=== PATIENT | male | born 1975 | race Caucasian/White ===

== ENCOUNTER 2017-01-21 12:57 | Outpatient (RCR) | payer MEDICARE, MEDICAID ==
[2016-11-26 13:23] VITALS: BP 127/83
[2016-12-24 13:18] VITALS: BP 120/83
[~2017-01-21] VITALS: Ht 172.7 cm; Wt 74.3 kg
[~2017-01-21 12:57] MED LIST: ACHD5005 PO; AMOX500C2 PO; CARV6.252 PO; CHOL200018 PO; CLON1PAT15 TD; CLON1PAT16 TD; DESV50TA PO; DIAZ10TA PO; DIAZ10TA3 PO; ENAL10TA PO; HEParin (CENTRAL IV FLUSH) 500 UNIT/5 ML SYR IV ONE; HEParin (CENTRAL IV FLUSH) 500 UNIT/5 ML SYR ONE; HYDR1TAB PO; METO-354 PO; MTC5U10 IV; NITR100C10 PO; PRM25T PO; PROC10TA23 IV; PROM25SU10 PR; PROM6.25 PO; [UNRECOGNIZED DRUG - CODE] IV; [UNRECOGNIZED DRUG - OTHER]
[2017-01-21] MEDS ORDERED: HEParin (CENTRAL IV FLUSH) 500 UNIT/5 ML SYR ONE (12:59)
[2017-01-21 13:05] VITALS: BP 125/85
== END 2017-02-24 | disposition home or self-care (01) ==
LOC: SDC 12:57
PROVIDERS: ATTEND Nurse Practitioner Community Health
DX: K31.84 Gastroparesis (principal); Z45.2 Encounter for adjustment and management of vascular access device
CPT/HCPCS: 96523

== ENCOUNTER → 2017-01-27 | Outpatient (CLI) | payer MEDICARE, MEDICAID ==
[~2017-01-27] VITALS: Ht 172.7 cm; Wt 74.3 kg
[~2017-01-27] MED LIST changes: -HEParin (CENTRAL IV FLUSH) 500 UNIT/5 ML SYR IV ONE; -HEParin (CENTRAL IV FLUSH) 500 UNIT/5 ML SYR ONE
--- OUTSIDE RECORDS SUMMARY | 2017-01-27 10:38 | XMS REPORT ---
Author Author BISMARK PATIÑO [facility] Address [address] [place] [address] Care Team Providers Care Files Supervisor Name Role Phone HAROON BISMARK Unavailable PROBLEMS Type Condition ICD9-CM Code [id number] Code Onset Dates Condition Status SNOMED Code Problem Mood disorder F39 Active [id number] Assessment Type 1 diabetes mellitus with hyperglycemia E10.65 Jul, Active [id number] Problem Type 1 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 Active 68872289 Problem Type 1 diabetes mellitus with hyperglycemia E10.65 Active [id number] Problem Gastroparesis K31.84 Active 396468363 Problem Hypertension, essential I10 Active [id number] Problem 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 Active 65795274 Problem Type 1 diabetes mellitus with other diabetic neurological complication E10.49 Active [id number] ALLERGIES Unknown Allergies SOCIAL HISTORY No smoking Hx information available PLAN OF CARE VITAL SIGNS MEDICATIONS Medication Instructions Dosage Frequency Start Date End Date Duration Status Genaro Contour Test N/A test blood sugar 6h Jul, Active RESULTS No Results PROCEDURES No Known procedures IMMUNIZATIONS No Known Immunizations
[2017-01-27 10:50] VITALS: BP 139/91
[2017-01-27 10:58] LABS: MEAN PLATELET VOLUME 10.6 FL (7.4-10.4); RED BLOOD COUNT 4.56 10^6/uL (4.35-5.85); RED CELL DISTRIBUTION WIDTH 13.4 % (10.0-14.5); WHITE BLOOD COUNT 7.9 10^3/uL (4.3-11.0)
[2017-01-27 11:20] LABS: ALBUMIN 3.8 G/DL (3.2-4.5); BILIRUBIN,TOTAL 0.5 MG/DL (0.1-1.0); CALCIUM 8.9 MG/DL (8.5-10.1); CREATININE SERUM 1.5 MG/DL (0.60-1.30); POTASSIUM 3.6 MMOL/L (3.6-5.0); TOTAL PROTEIN 6.5 G/DL (6.4-8.2)
[2017-01-27 11:41] LABS: THYROID STIMULATING HORMONE 1.77 UIU/ML (0.35-4.94)
== END ==
LOC: SDC 10:35
PROVIDERS: ATTEND Nurse Practitioner Community Health
DX: E10.42 Type 1 diabetes mellitus with diabetic polyneuropathy (principal)
CPT/HCPCS: 36415; 80053; 80061; 84443; 85027

== ENCOUNTER 2017-04-22 13:07 | Outpatient (RCR) | payer MEDICARE, MEDICAID ==
[2017-02-25 13:20] VITALS: BP 120/83
[2017-03-25 13:16] VITALS: BP 118/76
[~2017-04-22] VITALS: Ht 172.7 cm; Wt 74.3 kg
[~2017-04-22 13:07] MED LIST changes: +HEParin (CENTRAL IV FLUSH) 500 UNIT/5 ML SYR ONE
[2017-04-22 14:10] VITALS: BP 122/81
== END 2017-05-26 | disposition home or self-care (01) ==
LOC: SDC 13:07
PROVIDERS: ATTEND Nurse Practitioner Community Health
DX: K31.84 Gastroparesis (principal); Z45.2 Encounter for adjustment and management of vascular access device
CPT/HCPCS: 96523

== ENCOUNTER 2017-07-26 12:59 | Outpatient (RCR) | payer MEDICARE, MEDICAID ==
[2017-05-27] MEDS: CATHETER FLUSH 10 ML SYR IV PRN (13:15)
[2017-05-27 13:36] VITALS: BP 124/87
[2017-06-23] MEDS: CATHETER FLUSH 10 ML SYR IV PRN (13:45)
[2017-06-23 13:50] VITALS: BP 131/82
[~2017-07-26] VITALS: Ht 172.7 cm; Wt 74.3 kg
[~2017-07-26 12:59] MED LIST changes: -HEParin (CENTRAL IV FLUSH) 500 UNIT/5 ML SYR ONE
[2017-07-26 13:35] VITALS: BP 126/92
[2017-07-26] MEDS: CATHETER FLUSH 10 ML SYR IV PRN (13:35)
== END 2017-08-20 | disposition home or self-care (01) ==
LOC: SDC 12:59
PROVIDERS: ATTEND Nurse Practitioner Community Health
DX: Z45.2 Encounter for adjustment and management of vascular access device; K31.84 Gastroparesis
CPT/HCPCS: 96523

== ENCOUNTER 2017-10-27 12:52 | Outpatient (RCR) | payer MEDICARE, MEDICAID ==
[2017-08-25 13:15] VITALS: BP 128/81
[2017-09-22 13:05] VITALS: BP 142/87
[~2017-10-27] VITALS: Ht 172.7 cm; Wt 74.3 kg
[~2017-10-27 12:52] MED LIST changes: +HEParin (CENTRAL IV FLUSH) 500 UNIT/5 ML SYR ONE
[2017-10-27 13:05] VITALS: BP 129/86
== END 2017-11-23 | disposition home or self-care (01) ==
LOC: SDC 12:52
PROVIDERS: ATTEND Nurse Practitioner Community Health
DX: K31.84 Gastroparesis (principal); Z45.2 Encounter for adjustment and management of vascular access device
CPT/HCPCS: 96523

== ENCOUNTER 2017-12-23 14:00 | Outpatient (RCR) | payer MEDICARE, MEDICAID ==
[2017-11-24 13:21] VITALS: BP 114/77
[~2017-12-23] VITALS: Ht 172.7 cm; Wt 74.3 kg
[2017-12-23 13:00] VITALS: BP 110/74
[~2017-12-23 14:00] MED LIST changes: +CATHETER FLUSH 10 ML SYR IV PRN; -HEParin (CENTRAL IV FLUSH) 500 UNIT/5 ML SYR ONE
== END 2018-02-22 | disposition home or self-care (01) ==
LOC: SDC 14:00
PROVIDERS: ATTEND Nurse Practitioner Community Health
DX: K31.84 Gastroparesis (principal); Z45.2 Encounter for adjustment and management of vascular access device
CPT/HCPCS: 96523

== ENCOUNTER → 2018-01-20 | Outpatient (CLI) | payer MEDICARE, MEDICAID ==
[~2018-01-20] VITALS: Ht 172.7 cm; Wt 74.3 kg
[~2018-01-20] MED LIST changes: -CATHETER FLUSH 10 ML SYR IV PRN
[2018-01-20 13:20] VITALS: BP 139/88
[2018-01-20 13:21] LABS: HEMOGLOBIN 14.5 G/DL (13.3-17.7); MEAN PLATELET VOLUME 10.4 FL (7.4-10.4); RED BLOOD COUNT 4.65 10^6/uL (4.35-5.85); WHITE BLOOD COUNT 9.2 10^3/uL (4.3-11.0)
[2018-01-20 13:39] LABS: ALBUMIN 4.1 GM/DL (3.2-4.5); BILIRUBIN,TOTAL 0.5 MG/DL (0.1-1.0); CALCIUM 9.4 MG/DL (8.5-10.1); CREATININE SERUM 1.55 MG/DL (0.60-1.30); POTASSIUM 3.8 MMOL/L (3.6-5.0); TOTAL PROTEIN 6.9 GM/DL (6.4-8.2)
== END ==
LOC: SDC 13:03
PROVIDERS: ATTEND Nurse Practitioner Community Health
DX: E10.40 Type 1 diabetes mellitus with diabetic neuropathy, unspecified (principal); I10 Essential (primary) hypertension
CPT/HCPCS: 36415; 36591; 80053; 80061; 84443; 85027

== ENCOUNTER 2018-05-25 13:07 | Outpatient (RCR) | payer MEDICARE, MEDICAID ==
[2018-03-03 13:00] VITALS: BP 133/90
[2018-03-24 13:00] VITALS: BP 130/86
[2018-04-27 13:35] VITALS: BP 141/89
[~2018-05-25] VITALS: Ht 172.7 cm; Wt 74.3 kg
[2018-05-25 13:10] VITALS: BP 118/78
== END 2018-06-01 | disposition home or self-care (01) ==
LOC: SDC 13:07
PROVIDERS: ATTEND Nurse Practitioner Community Health
DX: K31.84 Gastroparesis (principal); Z45.2 Encounter for adjustment and management of vascular access device
CPT/HCPCS: 96523

== ENCOUNTER → 2018-07-27 | Outpatient (CLI) | payer MEDICARE, MEDICAID ==
[~2018-07-27] VITALS: Ht 172.7 cm; Wt 74.3 kg
[~2018-07-27] MED LIST changes: +HEParin (CENTRAL IV FLUSH) 500 UNIT/5 ML SYR IV ONE; +HEParin (CENTRAL IV FLUSH) 500 UNIT/5 ML SYR ONE
[2018-07-27 13:50] VITALS: BP 118/85
== END ==
LOC: SDC 13:18
PROVIDERS: ATTEND Nurse Practitioner Community Health
DX: E10.49 Type 1 diabetes mellitus with other diabetic neurological complication (principal); R53.82 Chronic fatigue, unspecified
CPT/HCPCS: 36591

== ENCOUNTER 2018-09-21 13:09 | Outpatient (RCR) | payer MEDICARE, MEDICAID ==
[2018-06-26 13:05] VITALS: BP 117/83
[2018-07-27 14:10] LABS: MEAN PLATELET VOLUME 10.8 FL (7.4-10.4); RED BLOOD COUNT 4.21 10^6/uL (4.35-5.85); WHITE BLOOD COUNT 7.8 10^3/uL (4.3-11.0)
[2018-07-27 14:30] LABS: ALBUMIN 3.9 GM/DL (3.2-4.5); BILIRUBIN,TOTAL 0.5 MG/DL (0.1-1.0); CALCIUM 9.7 MG/DL (8.5-10.1); CREATININE SERUM 1.62 MG/DL (0.60-1.30); TOTAL PROTEIN 6.8 GM/DL (6.4-8.2)
[2018-08-24 13:20] VITALS: BP 119/82
[~2018-09-21] VITALS: Ht 172.7 cm; Wt 74.3 kg
[2018-09-21] MEDS ORDERED: HEParin (CENTRAL IV FLUSH) 500 UNIT/5 ML SYR ONE (13:10)
[2018-09-21 13:15] VITALS: BP 151/89
== END 2018-09-24 | disposition home or self-care (01) ==
LOC: SDC 13:09
PROVIDERS: ATTEND Nurse Practitioner Community Health
DX: K31.84 Gastroparesis (principal); Z45.2 Encounter for adjustment and management of vascular access device; E10.49 Type 1 diabetes mellitus with other diabetic neurological complication; R53.82 Chronic fatigue, unspecified
CPT/HCPCS: 36415; 80053; 80061; 82306; 82607; 84403; 84443; 85027; 96523

== ENCOUNTER 2018-12-28 13:02 | Outpatient (RCR) | payer MEDICARE, MEDICAID ==
[2018-10-23 13:35] VITALS: BP 125/82
[2018-11-30 13:10] VITALS: BP 130/83
[~2018-12-28] VITALS: Ht 172.7 cm; Wt 74.3 kg
[2018-12-28 13:00] VITALS: BP 138/91
[2018-12-28] MEDS ORDERED: HEParin (CENTRAL IV FLUSH) 500 UNIT/5 ML SYR ONE (13:06)
[2018-12-28] MEDS ORDERED: HEParin (CENTRAL IV FLUSH) 500 UNIT/5 ML SYR IV ONE (16:30)
== END 2019-01-21 | disposition home or self-care (01) ==
LOC: SDC 13:02
PROVIDERS: ATTEND Nurse Practitioner Community Health
DX: K31.84 Gastroparesis (principal); Z45.2 Encounter for adjustment and management of vascular access device
CPT/HCPCS: 96523

== ENCOUNTER 2019-03-22 12:55 | Outpatient (RCR) | payer MEDICARE, MEDICAID ==
[2019-01-25 13:00] VITALS: BP 121/81
[2019-02-22 13:20] VITALS: BP 125/92
[~2019-03-22] VITALS: Ht 172.7 cm; Wt 74.3 kg
[~2019-03-22 12:55] MED LIST changes: -HEParin (CENTRAL IV FLUSH) 500 UNIT/5 ML SYR IV ONE
[2019-03-22 13:10] VITALS: BP 135/83
[2019-03-22] MEDS ORDERED: HEParin (CENTRAL IV FLUSH) 500 UNIT/5 ML SYR IV ONE (13:25)
== END 2019-04-25 | disposition home or self-care (01) ==
LOC: SDC 12:55
PROVIDERS: ATTEND Nurse Practitioner Community Health
DX: K31.84 Gastroparesis (principal); Z45.2 Encounter for adjustment and management of vascular access device
CPT/HCPCS: 96523

== ENCOUNTER 2019-06-25 13:05 | Outpatient (RCR) | payer MEDICARE, MEDICAID ==
[2019-04-26 13:45] VITALS: BP 143/87
[2019-05-25 13:25] VITALS: BP 147/90
[~2019-06-25] VITALS: Ht 172.7 cm; Wt 74.3 kg
[~2019-06-25 13:05] MED LIST changes: +HEParin (CENTRAL IV FLUSH) 500 UNIT/5 ML SYR IV ONE
[2019-06-25] MEDS ORDERED: HEParin (CENTRAL IV FLUSH) 500 UNIT/5 ML SYR ONE (13:11)
[2019-06-25 13:25] VITALS: BP 155/96
[2019-06-25] MEDS ORDERED: HEParin (CENTRAL IV FLUSH) 500 UNIT/5 ML SYR IV SCH (15:00)
== END 2019-07-25 | disposition home or self-care (01) ==
LOC: SDC 13:05
PROVIDERS: ATTEND Nurse Practitioner Community Health
DX: K31.84 Gastroparesis (principal); Z45.2 Encounter for adjustment and management of vascular access device
CPT/HCPCS: 96523

== ENCOUNTER 2019-07-27 13:12 | Outpatient (RCR) | payer MEDICARE, MEDICAID ==
[~2019-07-27] VITALS: Ht 172.7 cm; Wt 74.3 kg
[~2019-07-27 13:12] MED LIST changes: -HEParin (CENTRAL IV FLUSH) 500 UNIT/5 ML SYR IV ONE
[2019-07-27 13:30] VITALS: BP 124/78
[2019-07-27] MEDS ORDERED: HEParin (CENTRAL IV FLUSH) 500 UNIT/5 ML SYR IV ONE (13:30)
== END 2019-10-25 | disposition home or self-care (01) ==
LOC: SDC 13:12
PROVIDERS: ATTEND Nurse Practitioner Community Health
DX: Z45.2 Encounter for adjustment and management of vascular access device (principal); K31.84 Gastroparesis
CPT/HCPCS: 96523

== ENCOUNTER 2019-11-06 13:27 | Outpatient (RCR) | payer MEDICARE, MEDICAID ==
[2019-08-24 13:10] VITALS: BP 162/92
[2019-08-24 13:50] LABS: BASOPHILS # (AUTO) 0.1 10^3/uL (0.0-0.1); BASOPHILS % (AUTO) 2 % (0-10); EOSINOPHILS # (AUTO) 0.3 10^3/uL (0.0-0.3); EOSINOPHILS % (AUTO) 3 % (0-10); HEMATOCRIT 37 % (40-54); LYMPHOCYTES # (AUTO) 1.7 X 10^3 (1.0-4.0); LYMPHOCYTES % (AUTO) 22 % (12-44); MEAN CORPUSCULAR HEMOGLOBIN 30 PG (25-34); MEAN CORPUSCULAR HGB CONC 35 G/DL (32-36); MEAN CORPUSCULAR VOLUME 85 FL (80-99); MEAN PLATELET VOLUME 9.8 FL (7.4-10.4); MONOCYTES # (AUTO) 0.4 X 10^3 (0.0-1.0); MONOCYTES % (AUTO) 6 % (0-12); NEUTROPHILS # (AUTO) 5.2 X 10^3 (1.8-7.8); NEUTROPHILS % (AUTO) 67 % (42-75); PLATELET COUNT 342 10^3/uL (130-400); RED CELL DISTRIBUTION WIDTH 13.6 % (10.0-14.5); WHITE BLOOD COUNT 7.7 10^3/uL (4.3-11.0)
[2019-08-24 14:14] LABS: BILIRUBIN,TOTAL 0.3 MG/DL (0.1-1.0); CREATININE SERUM 1.5 MG/DL (0.60-1.30); POTASSIUM 4.3 MMOL/L (3.6-5.0); TOTAL PROTEIN 7.7 GM/DL (6.4-8.2)
[2019-09-28] MEDS: CATHETER FLUSH 10 ML SYR IV PRN (13:15)
[2019-09-28 13:18] VITALS: BP 140/91
[~2019-11-06] VITALS: Ht 172.7 cm; Wt 72.0 kg
[~2019-11-06 13:27] MED LIST changes: +HEParin (CENTRAL IV FLUSH) 500 UNIT/5 ML SYR IV ONE
[2019-11-06] MEDS ORDERED: HEParin (CENTRAL IV FLUSH) 500 UNIT/5 ML SYR ONE (13:29)
[2019-11-06 13:30] VITALS: BP 153/92
[2019-11-06] MEDS: CATHETER FLUSH 10 ML SYR IV PRN (13:38)
[2019-11-06] MEDS ORDERED: CATHETER FLUSH 10 ML SYR IV PRN (14:30)
[2019-11-06] MEDS ORDERED: HEParin (CENTRAL IV FLUSH) 500 UNIT/5 ML SYR IV ONE (14:30)
== END 2019-11-22 | disposition home or self-care (01) ==
LOC: SDC 13:27
PROVIDERS: ATTEND Nurse Practitioner Community Health
DX: Z45.2 Encounter for adjustment and management of vascular access device (principal); E10.65 Type 1 diabetes mellitus with hyperglycemia
CPT/HCPCS: 36415; 80053; 80061; 82306; 82607; 84403; 84443; 85025; 96523

== ENCOUNTER 2019-12-04 13:02 | Outpatient (CLI) | payer MEDICARE, MEDICAID ==
[~2019-12-04 13:02] MED LIST changes: -HEParin (CENTRAL IV FLUSH) 500 UNIT/5 ML SYR IV ONE; -HEParin (CENTRAL IV FLUSH) 500 UNIT/5 ML SYR ONE
[2019-12-04 13:45] VITALS: BP 149/101
[2019-12-04 16:39] LABS: BILIRUBIN,TOTAL 0.3 MG/DL (0.1-1.0); CALCIUM 9.3 MG/DL (8.5-10.1); CREATININE SERUM 1.71 MG/DL (0.60-1.30); POTASSIUM 4.1 MMOL/L (3.6-5.0); TOTAL PROTEIN 7.2 GM/DL (6.4-8.2)
== END 2019-12-04 13:45 ==
LOC: SDC 13:02
PROVIDERS: ATTEND Nurse Practitioner Community Health
DX: E10.42 Type 1 diabetes mellitus with diabetic polyneuropathy (principal); F39 Unspecified mood [affective] disorder; E55.9 Vitamin D deficiency, unspecified; N28.9 Disorder of kidney and ureter, unspecified
CPT/HCPCS: 36415; 36591; 80053; 82306

== ENCOUNTER 2020-02-26 13:23 | Outpatient (RCR) | payer MEDICARE, MEDICAID ==
[2019-12-04] MEDS: CATHETER FLUSH 10 ML SYR IV PRN ×2 (13:35→13:42)
[2020-01-01 13:25] VITALS: BP 122/84
[2020-01-29 13:30] VITALS: BP 143/95
[2020-01-29] MEDS: CATHETER FLUSH 10 ML SYR IV PRN (13:30)
[~2020-02-26] VITALS: Ht 170 cm; Wt 72.0 kg
[~2020-02-26 13:23] MED LIST changes: +HEParin (CENTRAL IV FLUSH) 500 UNIT/5 ML SYR IV ONE; +HEParin (CENTRAL IV FLUSH) 500 UNIT/5 ML SYR ONE
[2020-02-26 13:25] VITALS: BP 130/82
[2020-02-26] MEDS ORDERED: HEParin (CENTRAL IV FLUSH) 500 UNIT/5 ML SYR IV ONE (13:30)
[2020-02-26] MEDS: CATHETER FLUSH 10 ML SYR IV PRN (13:32)
== END 2020-03-03 | disposition home or self-care (01) ==
LOC: SDC 13:23
PROVIDERS: ATTEND Nurse Practitioner Community Health
DX: Z45.2 Encounter for adjustment and management of vascular access device (principal); E10.65 Type 1 diabetes mellitus with hyperglycemia
CPT/HCPCS: 96523

== ENCOUNTER 2020-04-17 17:40 | Emergency (ER) | payer MEDICARE, MEDICAID ==
[~2020-04-17] VITALS: Ht 178 cm; Wt 90.0 kg
[~2020-04-17 17:40] MED LIST changes: -HEParin (CENTRAL IV FLUSH) 500 UNIT/5 ML SYR IV ONE; -HEParin (CENTRAL IV FLUSH) 500 UNIT/5 ML SYR ONE
--- NOTE | 2020-04-17 18:10 | ED Abdominal Pain ---
General Chief Complaint: Abdominal/GI Problems Stated Complaint: N/V Nursing Triage Note: . THE PT IS AMBULATORY TO THE ROOM WITHOUT DIFFICULTY NO DISTRESS IS SEEN ON ARRIVAL. LOC IS NORMAL FOR THE PT. THE PT C/O NAUSEA. Sepsis Screen: No Definite Risk Source of Information: Patient Exam Limitations: No Limitations History of Present Illness Date Seen by Provider: April 17, 2020 Time Seen by Provider: 18:10 Initial Comments 44-year-old male who presents to the emergency room with complaints of one episode of nausea and vomiting that occurred this morning and mild nausea throughout the day. He reports that he has an extensive history of gastroparesis requiring an abdominal pacemaker. He has not had any more episodes of vomiting but wanted to come and get evaluated. He also reports that he has type I diabetic reports normal blood sugars. He denies abdominal pain. Timing/Duration: 1 Day Associated Symptoms: Nausea/Vomiting Allergies and Home Medications Allergies Coded Allergies: Sulfa (Sulfonamide Antibiotics) (Verified Allergy, Intermediate, RASH/HIVES, 07/02/12) ciprofloxacin (Verified Allergy, Intermediate, SWELLING, 03/08/12) Home Medications Desvenlafaxine Succinate 50 Mg Tab.sr.24h, 50 MG PO DAILY, (Reported) Diazepam 10 Mg Tablet, 10 MG PO TID PRN, (Reported) Enalapril Maleate 10 Mg Tablet, 10 MG PO BID, (Reported) Patient Home Medication List Home Medication List Reviewed: Yes Review of Systems Review of Systems Constitutional: see HPI; No chills, No fever Gastrointestinal: See HPI, Nausea, Vomiting All Other Systems Reviewed Negative Unless Noted: Yes Past Rednmnf-Psoukm-Varwvh Hx Past Med/Social Hx: Reviewed Nursing Past Med/Soc Hx Patient Social History Type Used: Cigarettes Recent Foreign Travel: No Contact w/Someone Who Travel: No Recent Infectious Disease Expo: No Recent Hopitalizations: Yes (MULTIPLE) Immunizations Up To Date Tetanus Booster (TDap): Unknown Date of Pneumonia Vaccine: Aug 21, 2011 Date of Influenza Vaccine: Aug 21, 2015 Seasonal Allergies Seasonal Allergies: No Past Medical History Reproductive Disorders: No Sexually Transmitted Disease: No Loss of Vision: Denies Hearing Impairment: Denies Family Medical History Reviewed Nursing Family Hx Physical Exam Vital Signs Vital Signs - First Documented 04/17/20 18:00 Temp 36.7 Pulse 80 Resp 16 B/P (MAP) 133/88 (103) Capillary Refill : Less Than 3 Seconds Height/Weight/BMI Height: 5'8.00" Weight: 163lbs. 11.7oz. 74.192204mp; 28.00 BMI Method:Stated General Appearance: WD/WN, no apparent distress Respiratory: chest non-tender, lungs clear, normal breath sounds, no respiratory distress, no accessory muscle use Cardiovascular: normal peripheral pulses, regular rate, rhythm, no edema, no gallop, no JVD, no murmur Gastrointestinal: normal bowel sounds, non tender, soft, no organomegaly, no pulsatile mass Extremities: normal capillary refill Neurologic/Psychiatric: alert, normal mood/affect, oriented x 3 Skin: normal color, warm/dry Progress/Results/Core Measures Results/Orders Lab Results Laboratory Tests Test 04/17/20 18:20 Range/Units White Blood Count 11.2 H 4.3-11.0 10^3/uL Red Blood Count 4.63 4.35-5.85 10^6/uL Hemoglobin 14.0 13.3-17.7 G/DL Hematocrit 40 40-54 % Mean Corpuscular Volume 86 80-99 FL Mean Corpuscular Hemoglobin 30 25-34 PG Mean Corpuscular Hemoglobin Concent 35 32-36 G/DL Red Cell Distribution Width 12.5 10.0-14.5 % Platelet Count 267 130-400 10^3/uL Mean Platelet Volume 10.6 H 7.4-10.4 FL Neutrophils (%) (Auto) 83 H 42-75 % Lymphocytes (%) (Auto) 12 12-44 % Monocytes (%) (Auto) 4 0-12 % Eosinophils (%) (Auto) 1 0-10 % Basophils (%) (Auto) 1 0-10 % Neutrophils # (Auto) 9.3 H 1.8-7.8 X 10^3 Lymphocytes # (Auto) 1.4 1.0-4.0 X 10^3 Monocytes # (Auto) 0.4 0.0-1.0 X 10^3 Eosinophils # (Auto) 0.1 0.0-0.3 10^3/uL Basophils # (Auto) 0.1 0.0-0.1 10^3/uL Urine Color YELLOW Urine Clarity CLEAR Urine pH 5.5 5-9 Urine Specific Moran 1.020 1.016-1.022 Urine Protein 2+ H NEGATIVE Urine Glucose (UA) 3+ H NEGATIVE Urine Ketones NEGATIVE NEGATIVE Urine Nitrite NEGATIVE NEGATIVE Urine Bilirubin NEGATIVE NEGATIVE Urine Urobilinogen 0.2 < = 1.0 MG/DL Urine Leukocyte Esterase NEGATIVE NEGATIVE Urine RBC (Auto) TRACE-I NEGATIVE Urine RBC NONE /HPF Urine WBC 0-2 /HPF Urine Crystals PRESENT H /LPF Urine Amorphous Sediment RARE KYUNG URATES H /LPF Urine Bacteria TRACE /HPF Urine Casts NONE /LPF Urine Mucus NEGATIVE /LPF Urine Culture Indicated NO Sodium Level 139 135-145 MMOL/L Potassium Level 4.3 3.6-5.0 MMOL/L Chloride Level 105 98-107 MMOL/L Carbon Dioxide Level 24 21-32 MMOL/L Anion Gap 10 5-14 MMOL/L Blood Urea Nitrogen 20 H 7-18 MG/DL Creatinine 1.85 H 0.60-1.30 MG/DL Estimat Glomerular Filtration Rate 40 BUN/Creatinine Ratio 11 Glucose Level 241 H 70-105 MG/DL Calcium Level 9.7 8.5-10.1 MG/DL Corrected Calcium 9.5 8.5-10.1 MG/DL Total Bilirubin 0.5 0.1-1.0 MG/DL Aspartate Amino Transf (AST/SGOT) 16 5-34 U/L Alanine Aminotransferase (ALT/SGPT) 12 0-55 U/L Alkaline Phosphatase 79 40-136 U/L Total Protein 7.7 6.4-8.2 GM/DL Albumin 4.3 3.2-4.5 GM/DL Amylase Level 84 25-125 U/L Lipase 21 8-78 U/L My Orders Orders - GUY SINGLETON Comprehensive Metabolic Panel (04/17/20 17:58) Lipase (04/17/20 17:58) Amylase (04/17/20 17:58) Ua Culture If Indicated (04/17/20 17:58) Ed Iv/Invasive Line Start (04/17/20 17:58) Cbc With Automated Diff (04/17/20 17:58) Ondansetron Injection (Zofran Injectio (04/17/20 18:30) Ns Iv 1000 Ml (Sodium Chloride 0.9%) (04/17/20 19:15) Promethazine Injection (Phenergan Injec (04/17/20 19:15) Medications Given in ED Current Medications Medications Dose Ordered Sig/Lynne Route Start Time Stop Time Status Last Admin Dose Admin Ondansetron HCl 4 mg ONCE ONCE IVP 04/17/20 18:30 04/17/20 18:31 DC 04/17/20 18:32 4 MG Promethazine HCl 25 mg ONCE ONCE IVP 04/17/20 19:15 04/17/20 19:16 DC 04/17/20 19:13 25 MG Vital Signs/I&O 04/17/20 18:00 Temp 36.7 Pulse 80 Resp 16 B/P (MAP) 133/88 (103) Blood Pressure Mean: 103 Progress Progress Note : Time: 19:53 Progress Note I have seen and evaluated the patient. I've informed him of his laboratory and imaging studies. He reports they have been watching his kidney function for a while. I informed him that he needs to have repeat labs soon to continue to tye tor his BUN/creatinine. His nausea has resolved. He agrees with plan of care, plans for discharge, return precautions were given. Departure Impression Primary Impression: Nausea and vomiting Disposition: HOME, SELF-CARE Condition: Stable/Unchanged Departure-Patient Inst. Decision time for Depature: 20:08 Referrals: [facility] (PCP) Primary Care Physician BISMARK PATIÑO (Family) Primary Care Physician Patient Instructions: Nausea and Vomiting, Adult (DC) Add. Discharge Instructions: Take medication as directed. Follow-up with your primary care provider within 1 week for a recheck and to discuss monitoring your kidney function. Return back to the emergency room for worsening symptoms or concerns as needed. All discharge instructions reviewed with patient and/or family. Voiced unde rstanding. Scripts Promethazine HCl (Promethazine Tablet) 25 Mg Tablet 25 MG PO Q6H PRN for NAUSEA/VOMITING for 7 Days, #28 TAB Prov: GUY SINGLETON 04/17/20 GUY SINGLETON April 17, 2020 18:10
[2020-04-17] MEDS ORDERED: ONDANSETRON 4 MG/2 ML (SDV) Z0FRAN IVP ONE (18:30)
[2020-04-17 18:32] LABS: BILIRUBIN,URINE NEGATIVE (NEGATIVE); CLARITY,URINE CLEAR; COLOR,URINE YELLOW; GLUCOSE, URINE (UA) 3+ (NEGATIVE); KETONES,URINE NEGATIVE (NEGATIVE); LEUKOCYTE ESTERASE ,URINE NEGATIVE (NEGATIVE); NITRITE,URINE NEGATIVE (NEGATIVE); PH,URINE 5.5 (5-9); PROTEIN,URINE 2+ (NEGATIVE)
[2020-04-17 18:33] LABS: BASOPHILS # (AUTO) 0.1 10^3/uL (0.0-0.1); BASOPHILS % (AUTO) 1 % (0-10); EOSINOPHILS # (AUTO) 0.1 10^3/uL (0.0-0.3); EOSINOPHILS % (AUTO) 1 % (0-10); HEMATOCRIT 40 % (40-54); LYMPHOCYTES # (AUTO) 1.4 X 10^3 (1.0-4.0); LYMPHOCYTES % (AUTO) 12 % (12-44); MEAN CORPUSCULAR HEMOGLOBIN 30 PG (25-34); MEAN CORPUSCULAR HGB CONC 35 G/DL (32-36); MEAN CORPUSCULAR VOLUME 86 FL (80-99); MEAN PLATELET VOLUME 10.6 FL (7.4-10.4); MONOCYTES # (AUTO) 0.4 X 10^3 (0.0-1.0); MONOCYTES % (AUTO) 4 % (0-12); NEUTROPHILS # (AUTO) 9.3 X 10^3 (1.8-7.8); NEUTROPHILS % (AUTO) 83 % (42-75); PLATELET COUNT 267 10^3/uL (130-400); RED CELL DISTRIBUTION WIDTH 12.5 % (10.0-14.5); WHITE BLOOD COUNT 11.2 10^3/uL (4.3-11.0)
[2020-04-17 18:42] LABS: ALBUMIN 4.3 GM/DL (3.2-4.5); POTASSIUM 4.3 MMOL/L (3.6-5.0)
[2020-04-17 18:43] LABS: CALCIUM 9.7 MG/DL (8.5-10.1)
[2020-04-17 18:45] LABS: TOTAL PROTEIN 7.7 GM/DL (6.4-8.2)
[2020-04-17 18:46] LABS: BILIRUBIN,TOTAL 0.5 MG/DL (0.1-1.0)
[2020-04-17 18:47] LABS: AMORPHOUS SEDIMENT,UR RARE AMOR URATES /LPF; BACTERIA,URINE TRACE /HPF; WBC,URINE 0-2 /HPF
[2020-04-17 18:48] LABS: CREATININE SERUM 1.85 MG/DL (0.60-1.30)
[2020-04-17] MEDS ORDERED: NS IV 1000 ML 1,000 ML IV SCH (19:15)
[2020-04-17] MEDS ORDERED: PROMETHAZINE INJ 25 MG/ML (PHENERGAN) AMP IVP ONE (19:15)
[2020-04-17] MEDS ORDERED: PROM25TA14 PO (20:16)
[2020-04-17] MEDS ORDERED: HEParin (CENTRAL IV FLUSH) 500 UNIT/5 ML SYR IV ONE (20:30)
[2020-04-17 20:31] VITALS: BP 120/77
--- OUTSIDE RECORDS SUMMARY | 2020-04-17 21:14 | XMS REPORT ---
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 Active 23224727 Problem Other chronic pain G89.29 Active 8 6147322 Problem Hypertension, essential I10 Active 56470183 Problem Vitamin D deficiency E55.9 Active 22047797 Problem Mood disorder F39 Active 528076 05 Problem Type 1 diabetes mellitus with hyperglycemia E10.65 Active [id number] Problem Type 1 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 Active 98348823 Problem Chronic fatigue R53.82 Active 8422 9001 Problem Controlled diabetes mellitus type 1 without complications E10.9 Active [id number] ALLERGIES No Information ENCOUNTERS Encounter Location Date Diagnosis [place] [address] [place] [id number] [address] [place] [id number] 04 Mar, 2020 Type 1 diabetes mellitus wit h other diabetic neurological complication E10.49 [place] [address] [place] [id number] [address] [place] [id number] 04 Mar, 2020 Type 1 diabetes mellitus wit h other diabetic neurological complication E10.49 [place] [address] [address] [facility] [id number] [address] [place] [id number] 02 Feb, 2020 Type 1 diabetes mellitus wit h other diabetic neurological complication E10.49 [place] [address] [place] [id number] [address] [place] [id number] Jan, Type 1 diabetes mellitus wit h other diabetic neurological complication E10.49 [place] [address] [place] [id number] [address] [place] [id number] Jan, Type 1 diabetes mellitus wit h other diabetic neurological complication E10.49 [facility] [address] [facility] [id number] [address] [place] [id number] 03 Dec, 2019 Type 1 diabetes mellitus wit h other diabetic neurological complication E10.49 [facility] [address] [facility] [id number] [address] [place] [id number] 13 Nov, 2019 Type 1 diabetes mellitus wit h diabetic polyneuropathy E10.42 ; Mood disorder F39 ; Vitamin D deficiency E55.9 and Renal insufficiency N28.9 [facility] [address] [facility] [id number] [address] [place] [id number] 03 Nov, 2019 Type 1 diabetes mellitus wit h other diabetic neurological complication E10.49 [facility] [address] [facility] [id number] [address] [place] [id number] 12 Oct, 2019 Other chronic pain G89.29 [facility] [address] [facility] [id number] [address] [place] [id number] 02 Oct, 2019 Type 1 diabetes mellitus wit h other diabetic neurological complication E10.49 [facility] [address] [facility] [id number] [address] [place] [id number] 02 Oct, 2019 [facility] [address] [facility] [id number] [address] [place] [id number] 29 Aug, 2019 Type 1 diabetes mellitus wit h other diabetic neurological complication E10.49 [facility] [address] [facility] [id number] [address] [place] [id number] 14 Aug, 2019 Encounter for immunization Z 23 [facility] [address] [facility] [id number] [address] [place] [phone] 08 Aug, 2019 Vitamin D deficiency E55.9 [facility] [address] [facility] [id number] [address] [place] [id number] 26 Jul, 2019 Type 1 diabetes mellitus wit h other diabetic neurological complication E10.49 [facility] [address] [facility] [id number] [address] [place] [id number] 13 Jul, 2019 Type 1 diabetes mellitus wit h hyperglycemia E10.65 [facility] [address] [facility] [id number] [address] [place] [id number] Jun, Type 1 diabetes mellitus wit h other diabetic neurological complication E10.49 [facility] [address] [id number] [address] [place] [id number] May, [facility] [address] [id number] [address] [place] [id number] May, [facility] [address] [id number] [address] [place] [id number] May, Other chronic pain G89.29 [facility] [address] [id number] [address] [place] [address] May, [facility] [address] [id number] [address] [place] [id number] May, Type 1 diabetes mellitus wit h other diabetic neurological complication E10.49 [facility] [address] [id number] [address] [place] [id number] Apr, [facility] [address] [id number] [address] [place] [id number] Apr, Type 1 diabetes mellitus wit h other diabetic neurological complication E10.49 [facility] [address] [id number] [address] [place] [id number] Apr, Encounter for Medicare annua l wellness exam Z00.00 [facility] [address] [id number] [address] [place] [id number] March, Encounter for Medicare annua l wellness exam Z00.00 and Type 1 diabetes mellitus with other diabetic neurological complication E10.49 [facility] [address] [id number] [address] [place] [id number] Feb, Type 1 diabetes mellitus wit h other diabetic neurological complication E10.49 [facility] [address] [id number] [address] [place] [address] Feb, Encounter for Medicare annua l wellness exam Z00.00 ; Mood disorder F39 ; Type 1 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 ; Hypertension, essential I10 and Chronic fatigue R53.82 [facility] [address] [id number] [address] [place] [id number] 13 Jan, 2019 Type 1 diabetes mellitus wit h other diabetic neurological complication E10.49 [facility] [address] [id number] [address] [place] [id number] 11 Jan, 2019 [facility] [address] [id number] [address] [place] [id number] Jan, Other chronic pain G89.29 [facility] [address] [id number] [address] [place] [id number] 11 Dec, 2018 [facility] [address] [id number] [address] [place] [id number] 08 Dec, 2018 Type 1 diabetes mellitus wit h other diabetic neurological complication E10.49 [facility] [address] [id number] [address] [place] [id number] 05 Dec, 2018 Other chronic pain G89.29 [facility] [address] [id number] [address] [place] [id number] Nov, [facility] [address] [id number] [address] [place] [address] [id number] Nov, Caries K02.9 [facility] [address] [id number] [address] [place] [id number] Nov, Type 1 diabetes mellitus wit h other diabetic neurological complication E10.49 [facility] [address] [id number] [address] [place] [id number] Nov, Controlled diabetes mellitus type 1 without complications E10.9 ; Other chronic pain G89.29 and Pain in left knee M25.562 [facility] [address] [id number] [address] [place] [address] [id number] Oct, Dental examination Z01.20 [facility] [address] [id number] [address] [place] [id number] 14 Oct, 2018 Cutaneous abscess of unspeci fied foot L02.619 and Cellulitis of unspecified part of limb L03.119 [facility] [address] [facility] [id number] [address] [place] [id number] 11 Oct, 2018 [facility] [address] [facility] [id number] [address] [place] [id number] 10 Oct, 2018 Type 1 diabetes mellitus wit h other diabetic neurological complication E10.49 [facility] [address] [facility] [id number] [address] [place] [address] [id number] 06 Oct, 2018 Dental examination Z01.20 an d Caries K02.9 [facility] [address] [facility] [id number] [address] [place] [id number] 04 Oct, 2018 Cutaneous abscess of left fo ot L02.612 and Cellulitis of left lower limb L03.116 [facility] [address] [place] [id number] [address] [place] [id number] 04 Oct, 2018 Dental examination Z01.20 an d Pain, dental K08.89 [facility] [address] [facility] [id number] [address] [place] [id number] Sep, Left foot pain M79.672 and L eft anterior knee pain M25.562 [facility] [address] [facility] [id number] [address] [place] [id number] Sep, Type 1 diabetes mellitus wit h other diabetic neurological complication E10.49 [facility] [address] [facility] [id number] [address] [place] [id number] Sep, [facility] [address] [place] [id number] [address] [place] [id number] Aug, Type 1 diabetes mellitus wit h other diabetic neurological complication E10.49 [facility] [address] [place] [id number] [address] [place] [id number] 10 Aug, 2018 Encounter for immunization Z 23 [facility] [address] [facility] [id number] [address] [place] [id number] 05 Aug, 2018 Type 1 diabetes mellitus wit h hyperglycemia E10.65 [facility] [address] [place] [id number] [address] [place] [id number] 21 Jul, 2018 Type 1 diabetes mellitus wit h hyperglycemia E10.65 [facility] [address] [id number] [address] [place] [id number] 19 Jul, 2018 [facility] [address] [id number] [address] [place] [id number] 18 Jul, 2018 [facility] [address] [id number] [address] [place] [id number] Jul, Type 1 diabetes mellitus wit h other diabetic neurological complication E10.49 [facility] [address] [id number] [address] [place] [id number] Jul, Type 1 diabetes mellitus wit h other diabetic neurological complication E10.49 and Mood disorder F39 [facility] [address] [id number] [address] [place] [id number] Jun, [facility] [address] [facility] [id number] [address] [place] [id number] Jun, Type 1 diabetes mellitus wit h other diabetic neurological complication E10.49 and Chronic fatigue R53.82 [facility] [address] [id number] [address] [place] [id number] May, Type 1 diabetes mellitus wit h other diabetic neurological complication E10.49 [facility] [address] [facility] [id number] [address] [place] [id number] May, [facility] [address] [facility] [id number] [address] [place] [id number] May, [facility] [address] [facility] [id number] [address] [place] [id number] Apr, [facility] [address] [facility] [id number] [address] [place] [id number] Apr, Type 1 diabetes mellitus wit h other diabetic neurological complication E10.49 [facility] [address] [facility] [id number] [address] [place] [id number] March, [facility] [address] [facility] [id number] [address] [place] [id number] Feb, [facility] [address] [facility] [id number] [address] [place] [id number] Feb, Type 1 diabetes mellitus wit h other diabetic neurological complication E10.49 ; Tobacco abuse Z72.0 and Tobacco abuse counseling Z71.6 [facility] [address] [facility] [id number] [address] [place] [id number] Jan, Type 1 diabetes mellitus wit h hyperglycemia E10.65 [facility] [address] [facility] [id number] [address] [place] [id number] Jan, [facility] [address] [facility] [id number] [address] [place] [id number] Dec, Tobacco abuse Z72.0 [facility] [address] [facility] [id number] [address] [place] [id number] Dec, Type 1 diabetes mellitus wit h hyperglycemia E10.65 [facility] [address] [facility] [id number] [address] [place] [id number] Dec, Type 1 diabetes mellitus wit h hyperglycemia E10.65 ; Tobacco abuse Z72.0 and Tobacco abuse counseling Z71.6 [facility] [address] [facility] [id number] [address] [place] [id number] Nov, Type 1 diabetes mellitus wit h hyperglycemia E10.65 [facility] [address] [facility] [id number] [address] [place] [id number] Oct, Type 1 diabetes mellitus wit h hyperglycemia E10.65 [facility] [address] [facility] [id number] [address] [place] [id number] Oct, Type 1 diabetes mellitus wit h hyperglycemia E10.65 [facility] [address] [facility] [id number] [address] [place] [id number] Sep, Type 1 diabetes mellitus wit h hyperglycemia E10.65 [facility] [address] [facility] [id number] [address] [place] [id number] Aug, Type 1 diabetes mellitus wit h hyperglycemia E10.65 [facility] [address] [id number] [address] [place] [id number] Aug, [facility] [address] [id number] [address] [place] [id number] Aug, Type 1 diabetes mellitus wit h hyperglycemia E10.65 [facility] [address] [id number] [address] [place] [id number] Aug, Encounter for immunization Z 23 [facility] [address] [id number] [address] [place] [id number] Aug, Type 1 diabetes mellitus wit h hyperglycemia E10.65 [facility] [address] [id number] [address] [place] [address] Jul, Type 1 diabetes mellitus wit h hyperglycemia E10.65 [facility] [address] [id number] [address] [place] [id number] Jul, Type 1 diabetes mellitus wit h hyperglycemia E10.65 [facility] [address] [id number] [address] [place] [address] May, Type 1 diabetes mellitus wit h hyperglycemia E10.65 [facility] [address] [id number] [address] [place] [id number] May, [facility] [address] [id number] [address] [place] [id number] Apr, [facility] [address] [id number] [address] [place] [address] Apr, Type 1 diabetes mellitus wit h hyperglycemia E10.65 [facility] [address] [id number] [address] [place] [id number] March, [facility] [address] [facility] [id number] [address] [place] [id number] March, [facility] [address] [id number] [address] [place] [id number] Jan, [facility] [address] [id number] [address] [place] [id number] Jan, [facility] [address] [id number] [address] [place] [address] Jan, Type 1 diabetes mellitus wit h diabetic polyneuropathy E10.42 [facility] [address] [id number] [address] [place] [id number] Jan, Type 1 diabetes mellitus wit h hyperglycemia E10.65 ; Excessive cerumen in both ear canals H61.23 and Controlled diabetes mellitus type 1 without complications E10.9 [facility] [address] [id number] [address] [place] [id number] 16 Dec, 2016 [facility] [address] [id number] [address] [place] [id number] Dec, [facility] [address] [id number] [address] [place] [id number] Dec, [facility] [address] [id number] [address] [place] [id number] Dec, [facility] [address] [id number] [address] [place] [address] Nov, [facility] [address] [id number] [address] [place] [id number] Nov, [facility] [address] [id number] [address] [place] [id number] Oct, Type 1 diabetes mellitus wit h hyperglycemia E10.65 [facility] [address] [id number] [address] [place] [id number] Sep, [facility] [address] [id number] [address] [place] [id number] Sep, [facility] [address] [id number] [address] [place] [id number] Sep, Controlled diabetes mellitus type 1 without complications E10.9 [facility] [address] [id number] [address] [place] [id number] Sep, [facility] [address] [id number] [address] [place] [address] [id number] Aug, Dental caries K02.9 [facility] [address] [id number] [address] [place] [id number] Aug, Type 1 diabetes mellitus wit h diabetic polyneuropathy E10.42 [facility] [address] [id number] [address] [place] [id number] Aug, [facility] [address] [id number] [address] [place] [id number] Aug, [facility] [address] [id number] [address] [place] [id number] Aug, [facility] [address] [id number] [address] [place] [id number] Jul, Type 1 diabetes mellitus wit h hyperglycemia E10.65 [facility] [address] [id number] [address] [place] [id number] Jul, Type 1 diabetes mellitus wit h hyperglycemia E10.65 ; Tooth pain K08.8 and Encounter for immunization Z23 [facility] [address] [id number] [address] [place] [address] [id number] 08 Jul, 2016 Dental examination Z01.20 [facility] [address] [id number] [address] [place] [id number] 08 Jul, 2016 [facility] [address] [id number] [address] [place] [id number] 07 Jul, 2016 [facility] [address] [id number] [address] [place] [id number] Jul, [facility] [address] [id number] [address] [place] [id number] Jun, [facility] [address] [id number] [address] [place] [id number] May, [facility] [address] [id number] [address] [place] [id number] Apr, [facility] [address] [id number] [address] [place] [address], [place] [address] Apr, [facility] [address] [id number] [address] [place] [address], [place] [address] Apr, [facility] [address] [id number] [address] [place] [address], [place] [address] March, [facility] [address] [id number] [address] [place] [address], [place] [address] March, [facility] [address] [id number] [address] [place] [address], [place] [address] Feb, [facility] [address] [id number] [address] [place] [address], [place] [address] Feb, [facility] [address] [id number] [address] [place] [address], [place] [address] Feb, Type 1 diabetes mellitus wit h hyperglycemia E10.65 [facility] [address] [id number] [address] [place] [address], [place] [address] Jan, [facility] [address] [id number] [address] [place] [address], [place] [address] Jan, [facility] [address] [id number] [address] [place] [address], [place] [address] Jan, [facility] [address] [id number] [address] [place] [address], [place] [address] Jan, [facility] [address] [id number] [address] [place] [address], [place] [address] Dec, [facility] [address] [id number] [address] [place] [address], [place] [address] Nov, [facility] [address] [id number] [address] [place] [address], [place] [address] Nov, [facility] [address] [id number] [address] [place] [address], [place] [address] Oct, [facility] [address] [facility] [id number] [address] [place] [id number] Oct, Type 1 diabetes mellitus wit h 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 ; Type 1 diabetes mellitus with hyperglycemia E10.65 ; Gastroparesis K31.84 and Esophageal stricture K22.2 [facility] [address] [facility] [id number] [address] [place] [id number] Oct, [facility] [address] [id number] [address] [place] [id number] Sep, [facility] [address] [facility] [id number] [address] [place] [id number] Sep, Type 1 diabetes mellitus wit h other diabetic neurological complication E10.49 [facility] [facility] [address] [facility] [id number] [address] [place] [id number] 22 Aug, 2015 Encounter for immunization Z 23 [facility] [address] [facility] [id number] [address] [place] [id number] 19 Aug, 2015 [facility] [address] [facility] [id number] [address] [place] [address] Aug, [facility] [address] [facility] [id number] [address] [place] [address] Jul, [facility] [address] [facility] [id number] [address] [place] [address] Jul, [facility] [address] [facility] [id number] [address] [place] [address] Jun, [facility] [address] [facility] [id number] [address] [place] [address] Jun, [facility] [address] [facility] [id number] [address] [place] [address] Jun, [facility] [address] [facility] [id number] [address] [place] [address] May, [facility] [address] [facility] [id number] [address] [place] [id number] May, [facility] [address] [id number] [address] [place] [address] May, Diabetes type 1, controlled 250.01 [facility] [address] [id number] [address] [place] [address] May, [facility] [address] [id number] [address] [place] [address] May, [facility] [address] [id number] [address] [place] [id number] Apr, Dental examination V72.2 [facility] [address] [id number] [address] [place] [address] Apr, [facility] [address] [id number] [address] [place] [address] Apr, [facility] [address] [id number] [address] [place] [address] Apr, [facility] [address] [id number] [address] [place] [id number] Apr, [facility] [address] [id number] [address] [place] [address] Apr, [facility] [address] [id number] [address] [place] [address] [id number] Apr, Dental examination V72.2 [facility] [address] [id number] [address] [place] [id number] Apr, [facility] [address] [id number] [address] [place] [address] Apr, [facility] [address] [id number] [address] [place] [address] March, Diabetes mellitus type 1 250 .01 [facility] [address] [id number] [address] [place] [address] March, [facility] [address] [id number] [address] [place] [id number] 14 Feb, 2015 [facility] [address] [id number] [address] [place] [address], [place] [address] Feb, [facility] [address] [id number] [address] [place] [address], [place] [address] Jan, [facility] [address] [id number] [address] [place] [address], [place] [address] Jan, [facility] [address] [id number] [address] [place] [address], [place] [address] Jan, [facility] [address] [id number] [address] [place] [address], [place] [address] Jan, [facility] [address] [id number] [address] [place] [address], [place] [address] Dec, [facility] [address] [id number] [address] [place] [address], [place] [address] Dec, [facility] [address] [id number] [address] [place] [address], [place] [address] Nov, [facility] [address] [id number] [address] [place] [address], [place] [address] Nov, [facility] [address] [id number] [address] [place] [address], [place] [address] Nov, [facility] [address] [id number] [address] [place] [address], [place] [address] Nov, [facility] [address] [id number] [address] [place] [address], [place] [address] Nov, [facility] [address] [id number] [address] [place] [address], [place] [address] Nov, [facility] [address] [id number] [address] [place] [address], [place] [address] Nov, [facility] [address] [id number] [address] [place] [address], [place] [address] Oct, [facility] [address] [id number] [address] [place] [address], [place] [address] Oct, [facility] [address] [id number] [address] [place] [address], [place] [address] Sep, [facility] [address] [id number] [address] [place] [address], [place] [address] Aug, [facility] [address] [id number] [address] [place] [address], [place] [address] Aug, [facility] [address] [id number] [address] [place] [address], [place] [address] Aug, [facility] [address] [id number] [address] [place] [address], [place] [address] Aug, [facility] [address] [id number] [address] [place] [address], [place] [address] Aug, [facility] [address] [id number] [address] [place] [address], [place] [address] Aug, [facility] [address] [id number] [address] [place] [address], [place] [address] Aug, [facility] [address] [id number] [address] [place] [address], [place] [address] Aug, [facility] [address] [id number] [address] [place] [address], [place] [address] Aug, [facility] [address] [id number] [address] [place] [address], [place] [address] Aug, [facility] [address] [id number] [address] [place] [address], [place] [address] Aug, [facility] [address] [id number] [address] [place] [address], [place] [address] Aug, [facility] [address] [id number] [address] [place] [address], [place] [address] Aug, [facility] [address] [id number] [address] [place] [address], [place] [address] Aug, [facility] [address] [id number] [facility] [place] [address] Jul, [facility] [address] [id number] [address] [place] [address], [place] [address] Jul, [facility] [address] [id number] [address] [place] [address], [place] [address] Jul, [facility] [address] [id number] [address] [place] [address], [place] [address] Jul, [facility] [address] [id number] [address] [place] [address], [place] [address] Jun, [facility] [address] [id number] [address] [place] [address], [place] [address] Jun, [facility] [address] [id number] [address] [place] [address], [place] [address] Jun, [facility] [address] [id number] [address] [place] [address], [place] [address] Jun, [facility] [address] [id number] [address] [place] [address], [place] [address] May, [facility] [address] [id number] [address] [place] [address], [place] [address] May, [facility] [address] [id number] [address] [place] [address], [place] [address] May, [facility] [address] [id number] [address] [place] [address], [place] [address] May, [facility] [address] [id number] [address] [place] [address], [place] [address] May, [facility] [address] [id number] [address] [place] [address], [place] [address] May, [facility] [address] [id number] [address] [place] [address], [place] [address] May, [facility] [address] [id number] [facility] [place] [address] May, 2013 [facility] [address] [id number] [facility] [place] [address] May, 2013 [facility] [address] [id number] [facility] [place] [address] May, 2013 [facility] [address] [id number] [address] [place] [address], [place] [address] May, 2013 [facility] [address] [id number] [address] [place] [address], [place] [address] May, [facility] [address] [id number] [address] [place] [address], [place] [address] May, [facility] [address] [id number] [address] [place] [address], [place] [address] Apr, [facility] [address] [id number] [address] [place] [address], [place] [address] Apr, [facility] [address] [id number] [address] [place] [address], [place] [address] Apr, [facility] [address] [id number] [address] [place] [address], [place] [address] Apr, [facility] [address] [id number] [address] [place] [address], [place] [address] Apr, [facility] [address] [id number] [address] [place] [address], [place] [address] Apr, [facility] [address] [id number] [address] [place] [address], [place] [address] Apr, [facility] [address] [id number] [address] [place] [address], [place] [address] Apr, [facility] [address] [id number] [address] [place] [address], [place] [address] Apr, [facility] [address] [id number] [address] [place] [address], [place] [address] Apr, [facility] [address] [id number] [address] [place] [address], [place] [address] Apr, [facility] [address] [id number] [address] [place] [address], [place] [address] Apr, [facility] [address] [id number] [address] [place] [address], [place] [address] Apr, [facility] [address] [id number] [address] [place] [address], [place] [address] Apr, [facility] [address] [id number] [address] [place] [address], [place] [address] March, [facility] [address] [id number] [address] [place] [address], [place] [address] March, [facility] [address] [id number] [address] [place] [address], [place] [address] March, [facility] [address] [id number] [address] [place] [address], [place] [address] March, [facility] [address] [id number] [address] [place] [address], [place] [address] March, [facility] [address] [id number] [address] [place] [address], [place] [address] March, [facility] [address] [id number] [address] [place] [address], [place] [address] March, [facility] [address] [id number] [address] [place] [address], [place] [address] March, [facility] [address] [id number] [address] [place] [address], [place] [address] March, [facility] [address] [id number] [address] [place] [address], [place] [address] March, [facility] [address] [id number] [address] [place] [address], [place] [address] Feb, [facility] [address] [id number] [address] [place] [address], [place] [address] Feb, [facility] [address] [id number] [facility] [place] [address] Feb, [facility] [address] [id number] [address] [place] [address], [place] [address] Feb, [facility] [address] [id number] [address] [place] [address], [place] [address] Feb, [facility] [address] [id number] [address] [place] [address], [place] [address] Feb, [facility] [address] [id number] [address] [place] [address], [place] [address] Feb, [facility] [address] [id number] [address] [place] [address], [place] [address] Feb, [facility] [address] [id number] [address] [place] [address], [place] [address] Jan, [facility] [address] [id number] [address] [place] [address], [place] [address] Jan, [facility] [address] [id number] [address] [place] [address], [place] [address] Jan, [facility] [address] [id number] [address] [place] [address], [place] [address] Jan, [facility] [address] [id number] [address] [place] [address], [place] [address] Jan, [facility] [address] [id number] [address] [place] [address], [place] [address] Jan, [facility] [address] [id number] [address] [place] [address], [place] [address] Jan, [facility] [address] [id number] [address] [place] [address], [place] [address] Jan, [facility] [address] [id number] [address] [place] [address], [place] [address] Jan, [facility] [address] [id number] [address] [place] [address], [place] [address] Jan, [facility] [address] [id number] [address] [place] [address], [place] [address] Dec, [facility] [address] [id number] [address] [place] [address], [place] [address] Dec, [facility] [address] [id number] [address] [place] [address], [place] [address] Nov, [facility] [address] [id number] [address] [place] [address], [place] [address] Nov, [facility] [address] [id number] [address] [place] [address], [place] [address] Nov, [facility] [address] [id number] [address] [place] [address], [place] [address] Nov, [facility] [address] [id number] [address] [place] [address], [place] [address] Nov, [facility] [address] [id number] [address] [place] [address], [place] [address] Nov, [facility] [address] [id number] [address] [place] [address], [place] [address] Nov, [facility] [address] [id number] [address] [place] [address], [place] [address] Nov, [facility] [address] [id number] [address] [place] [address], [place] [address] Oct, [facility] [address] [id number] [address] [place] [address], [place] [address] Oct, [facility] [address] [id number] [address] [place] [address], [place] [address] Oct, [facility] [address] [id number] [address] [place] [address], [place] [address] Oct, [facility] [address] [id number] [address] [place] [address] [address] Oct, [facility] [address] [id number] [address] [place] [address], [place] [address] Oct, [facility] [address] [id number] [address] [place] [address], [place] [address] Sep, [facility] [address] [id number] [address] [place] [address], [place] [address] Sep, [facility] [address] [id number] [address] [place] [address], [place] [address] Sep, [facility] [address] [id number] [address] [place] [address], [place] [address] Sep, [facility] [address] [id number] [address] [place] [address], [place] [address] Sep, [facility] [address] [id number] [address] [place] [address], [place] [address] Aug, [facility] [address] [id number] [address] [place] [address] Aug, [facility] [address] [id number] [address] [place] [address] Aug, [facility] [address] [id number] [address] [place] [address] Aug, [facility] [address] [id number] [address] [place] [address] Aug, [facility] [address] [id number] [address] [place] [address] Aug, [facility] [address] [id number] [address] [place] [address] Jul, [facility] [address] [id number] [address] [place] [address] Jul, [facility] [address] [id number] [address] [place] [address] Jul, [facility] [address] [id number] [address] [place] [address], [place] [address] Jun, [facility] [address] [id number] [address] [place] [address], [place] [address] Jun, [facility] [address] [id number] [address] [place] [address], [place] [address] May, [facility] [address] [id number] [address] [place] [address], [place] [address] May, [facility] [address] [id number] [address] [place] [address], [place] [address] Apr, [facility] [address] [id number] [address] [place] [address], [place] [address] Apr, [facility] [address] [id number] [address] [place] [address], [place] [address] Apr, [facility] [address] [id number] [address] [place] [address], [place] [address] March, [facility] [address] [id number] [address] [place] [address], [place] [address] Feb, [facility] [address] [id number] [address] [place] [address], [place] [address] Feb, [facility] [address] [id number] [address] [place] [address], [place] [address] Jan, [facility] [address] [id number] [address] [place] [address], [place] [address] Jan, [facility] [address] [id number] [address] [place] [address], [place] [address] Jan, [facility] [address] [id number] [address] [place] [address], [place] [address] Jan, [facility] [address] [id number] [address] [place] [address], [place] [address] Jan, [facility] [address] [id number] [address] [place] [address], [place] [address] Dec, [facility] [address] [id number] [address] [place] [address], [place] [address] Dec, [facility] [address] [id number] [address] [place] [address], [place] [address] Dec, [facility] [address] [id number] [address] [place] [address], [place] [address] Dec, [facility] [address] [id number] [address] [place] [address], [place] [address] Dec, [facility] [address] [id number] [address] [place] [address], [place] [address] Dec, [facility] [address] [place] [id number] Nov, [facility] [address] [id number] [address] [place] [address], [place] [address] Nov, [facility] [address] [id number] [address] [place] [address], [place] [address] Nov, [facility] [address] [id number] [address] [place] [address], [place] [address] Nov, [facility] [address] [id number] [address] [place] [address], [place] [address] Nov, [facility] [address] [id number] [address] [place] [address], [place] [address] Oct, [facility] [address] [id number] [address] [place] [address], [place] [address] Oct, [facility] [address] [id number] [address] [place] [address], [place] [address] Oct, [facility] [address] [id number] [address] [place] [address], [place] [address] Oct, [facility] [address] [id number] [address] [place] [address], [place] [address] Oct, [facility] [address] [id number] [address] [place] [address], [place] [address] Oct, [facility] [address] [id number] [address] [place] [address], [place] [address] Oct, [facility] [address] [id number] [address] [place] [address], [place] [address] Oct, [facility] [address] [id number] [address] [place] [address], [place] [address] Sep, [facility] [address] [id number] [address] [place] [address], [place] [address] Sep, [facility] [address] [id number] [address] [place] [address], [place] [address] Sep, [facility] [address] [id number] [address] [place] [address], [place] [address] Sep, [facility] [address] [id number] [address] [place] [address], [place] [address] Sep, [facility] [address] [id number] [address] [place] [address], [place] [address] Sep, [facility] [address] [id number] [address] [place] [address], [place] [address] Sep, [facility] [address] [id number] [address] [place] [address], [place] [address] Sep, [facility] [address] [id number] [address] [place] [address], [place] [address] Sep, [facility] [address] [id number] [address] [place] [address], [place] [address] Sep, [facility] [address] [id number] [address] [place] [address], [place] [address] Sep, [facility] [address] [id number] [address] [place] [address], [place] [address] Sep, [facility] [address] [id number] [address] [place] [address], [place] [address] Sep, [facility] [address] [id number] [address] [place] [address] Sep, [facility] [address] [facility] [id number] [address] [place] [address] Sep, [facility] [address] [facility] [id number] [address] [place] [address] Sep, IMMUNIZATIONS No Known Immunizations SOCIAL HISTORY Never Assessed REASON FOR VISIT PLAN OF CARE VITAL SIGNS MEDICATIONS Unknown Medications RESULTS No Results PROCEDURES No Known procedures INSTRUCTIONS MEDICATIONS ADMINISTERED No Known Medications MEDICAL (GENERAL) HISTORY Type Description Date Medical History hypertension Medical History type I diabetes Medical History chronic renal insufficiency Surgical History gastric pacemaker 2008 Hospitalization History [id number] [phone]
--- OUTSIDE RECORDS SUMMARY | 2020-04-17 21:15 | XMS REPORT ---
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 Active 72626937 Problem Other chronic pain G89.29 Active 8 9294089 Problem Hypertension, essential I10 Active 53148515 Problem Vitamin D deficiency E55.9 Active 03033978 Problem Mood disorder F39 Active 324299 05 Problem Type 1 diabetes mellitus with hyperglycemia E10.65 Active [id number] Problem Type 1 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 Active 50709860 Problem Chronic fatigue R53.82 Active 8422 9001 Problem Controlled diabetes mellitus type 1 without complications E10.9 Active [id number] ALLERGIES No Information ENCOUNTERS Encounter Location Date Diagnosis [place] [address] [address] [place] [id number] [address] [place] [id number] 04 Mar, 2020 Type 1 diabetes mellitus wit h other diabetic neurological complication E10.49 [place] [address] [place] [id number] [address] [place] [id number] 04 Mar, 2020 Type 1 diabetes mellitus wit h other diabetic neurological complication E10.49 [place] [address] [address] [facility] [id number] [address] [place] [id number] 02 Feb, 2020 Type 1 diabetes mellitus wit h other diabetic neurological complication E10.49 [place] [address] [place] [id number] [address] [place] [id number] Jan, Type 1 diabetes mellitus wit h other diabetic neurological complication E10.49 [place] [address] [address] [place] [id number] [address] [place] [phone] Jan, Type 1 diabetes mellitus wit h other diabetic neurological complication E10.49 [facility] [place] [address] [facility] [place] [id number] [address] [place] [id number] 03 Dec, 2019 Type 1 diabetes mellitus wit h other diabetic neurological complication E10.49 [facility] [place] [address] [facility] [place] [id number] [address] [place] [id number] 13 Nov, 2019 Type 1 diabetes mellitus wit h diabetic polyneuropathy E10.42 ; Mood disorder F39 ; Vitamin D deficiency E55.9 and Renal insufficiency N28.9 [facility] [place] [address] [facility] [place] [id number] [address] [place] [id number] 03 Nov, 2019 Type 1 diabetes mellitus wit h other diabetic neurological complication E10.49 [facility] [place] [address] [facility] [place] [id number] [address] [place] [id number] 12 Oct, 2019 Other chronic pain G89.29 [facility] [place] [address] [facility] [place] [id number] [address] [place] [id number] 02 Oct, 2019 Type 1 diabetes mellitus wit h other diabetic neurological complication E10.49 [facility] [place] [address] [facility] [place] [id number] [address] [place] [id number] 02 Oct, 2019 [facility] [place] [address] [facility] [place] [id number] [address] [place] [id number] 29 Aug, 2019 Type 1 diabetes mellitus wit h other diabetic neurological complication E10.49 [facility] [place] [address] [facility] [place] [id number] [address] [place] [id number] 14 Aug, 2019 Encounter for immunization Z 23 [facility] [place] [address] [facility] [place] [id number] [address] [place] [id number] 08 Aug, 2019 Vitamin D deficiency E55.9 [facility] [place] [address] [facility] [place] [id number] [address] [place] [id number] 26 Jul, 2019 Type 1 diabetes mellitus wit h other diabetic neurological complication E10.49 [facility] [place] [address] [facility] [place] [id number] [address] [place] [id number] 13 Jul, 2019 Type 1 diabetes mellitus wit h hyperglycemia E10.65 [facility] [place] [address] [facility] [place] [id number] [address] [place] [id number] Jun, Type 1 diabetes mellitus wit h other diabetic neurological complication E10.49 [facility] [place] [address] [id number] [address] [place] [id number] May, [facility] [place] [address] [id number] [address] [place] [id number] May, [facility] [place] [address] [id number] [address] [place] [id number] May, Other chronic pain G89.29 [facility] [place] [address] [id number] [address] [place] [id number] May, [facility] [place] [address] [id number] [address] [place] [id number] May, Type 1 diabetes mellitus wit h other diabetic neurological complication E10.49 [facility] [place] [address] [id number] [address] [place] [id number] Apr, [facility] [place] [address] [id number] [address] [place] [address] Apr, Type 1 diabetes mellitus wit h other diabetic neurological complication E10.49 [facility] [place] [address] [id number] [address] [place] [id number] Apr, Encounter for Medicare annua l wellness exam Z00.00 [facility] [place] [address] [id number] [address] [place] [phone] March, Encounter for Medicare annua l wellness exam Z00.00 and Type 1 diabetes mellitus with other diabetic neurological complication E10.49 [facility] [place] [address] [id number] [address] [place] [phone] Feb, Type 1 diabetes mellitus wit h other diabetic neurological complication E10.49 [facility] [place] [address] [id number] [address] [place] [address] Feb, Encounter for Medicare annua l wellness exam Z00.00 ; Mood disorder F39 ; Type 1 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 ; Hypertension, essential I10 and Chronic fatigue R53.82 [facility] [place] [address] [id number] [address] [place] [id number] 13 Jan, 2019 Type 1 diabetes mellitus wit h other diabetic neurological complication E10.49 [facility] [place] [address] [id number] [address] [place] [phone] 11 Jan, 2019 [facility] [place] [address] [id number] [address] [place] [id number] Jan, Other chronic pain G89.29 [facility] [place] [address] [id number] [address] [place] [id number] 11 Dec, 2018 [facility] [place] [address] [id number] [address] [place] [phone] 08 Dec, 2018 Type 1 diabetes mellitus wit h other diabetic neurological complication E10.49 [facility] [place] [address] [id number] [address] [place] [id number] 05 Dec, 2018 Other chronic pain G89.29 [facility] [place] [address] [id number] [address] [place] [id number] Nov, [facility] [address] [id number] [address] [place] [address] [id number] Nov, Caries K02.9 [facility] [place] [address] [id number] [address] [place] [id number] Nov, Type 1 diabetes mellitus wit h other diabetic neurological complication E10.49 [facility] [place] [address] [id number] [address] [place] [address] Nov, Controlled diabetes mellitus type 1 without complications E10.9 ; Other chronic pain G89.29 and Pain in left knee M25.562 [facility] [address] [id number] [address] [place] [address] [id number] Oct, Dental examination Z01.20 [facility] [place] [address] [id number] [address] [place] [id number] 14 Oct, 2018 Cutaneous abscess of unspeci fied foot L02.619 and Cellulitis of unspecified part of limb L03.119 [facility] [place] [address] [facility] [place] [id number] [address] [place] [address] 11 Oct, 2018 [facility] [place] [address] [facility] [place] [id number] [address] [place] [id number] 10 Oct, 2018 Type 1 diabetes mellitus wit h other diabetic neurological complication E10.49 [facility] [address] [facility] [id number] [address] [place] [address] [id number] 06 Oct, 2018 Dental examination Z01.20 an d Caries K02.9 [facility] [place] [address] [facility] [place] [id number] [address] [place] [id number] 04 Oct, 2018 Cutaneous abscess of left fo ot L02.612 and Cellulitis of left lower limb L03.116 [facility] [place] [address] [place] [id number] [address] [place] [id number] 04 Oct, 2018 Dental examination Z01.20 an d Pain, dental K08.89 [facility] [address] [facility] [place] [id number] [address] [place] [address] Sep, Left foot pain M79.672 and L eft anterior knee pain M25.562 [facility] [place] [address] [facility] [place] [id number] [address] [place] [id number] Sep, Type 1 diabetes mellitus wit h other diabetic neurological complication E10.49 [facility] [place] [address] [facility] [place] [id number] [address] [place] [phone] Sep, [facility] [place] [address] [place] [id number] [address] [place] [id number] Aug, Type 1 diabetes mellitus wit h other diabetic neurological complication E10.49 [facility] [place] [address] [place] [id number] [address] [place] [id number] 10 Aug, 2018 Encounter for immunization Z 23 [facility] [place] [address] [facility] [place] [id number] [address] [place] [id number] 05 Aug, 2018 Type 1 diabetes mellitus wit h hyperglycemia E10.65 [facility] [place] [address] [place] [id number] [address] [place] [id number] 21 Jul, 2018 Type 1 diabetes mellitus wit h hyperglycemia E10.65 [facility] [place] [address] [id number] [address] [place] [id number] 19 Jul, 2018 [facility] [place] [address] [id number] [address] [place] [phone] 18 Jul, 2018 [facility] [place] [address] [id number] [address] [place] [id number] Jul, Type 1 diabetes mellitus wit h other diabetic neurological complication E10.49 [facility] [place] [address] [id number] [address] [place] [id number] Jul, Type 1 diabetes mellitus wit h other diabetic neurological complication E10.49 and Mood disorder F39 [facility] [place] [address] [id number] [address] [place] [id number] Jun, [facility] [place] [address] [facility] [place] [id number] [address] [place] [id number] Jun, Type 1 diabetes mellitus wit h other diabetic neurological complication E10.49 and Chronic fatigue R53.82 [facility] [place] [address] [id number] [address] [place] [id number] May, Type 1 diabetes mellitus wit h other diabetic neurological complication E10.49 [facility] [place] [address] [facility] [place] [id number] [address] [place] [id number] May, [facility] [place] [address] [facility] [place] [id number] [address] [place] [id number] May, [facility] [place] [address] [facility] [place] [id number] [address] [place] [id number] Apr, [facility] [place] [address] [facility] [place] [id number] [address] [place] [phone] Apr, Type 1 diabetes mellitus wit h other diabetic neurological complication E10.49 [facility] [place] [address] [facility] [place] [id number] [address] [place] [id number] March, [facility] [place] [address] [facility] [place] [id number] [address] [place] [id number] Feb, [facility] [place] [address] [facility] [place] [id number] [address] [place] [address] Feb, Type 1 diabetes mellitus wit h other diabetic neurological complication E10.49 ; Tobacco abuse Z72.0 and Tobacco abuse counseling Z71.6 [facility] [place] [address] [facility] [place] [id number] [address] [place] [id number] Jan, Type 1 diabetes mellitus wit h hyperglycemia E10.65 [facility] [place] [address] [facility] [place] [id number] [address] [place] [id number] Jan, [facility] [place] [address] [facility] [place] [id number] [address] [place] [id number] Dec, Tobacco abuse Z72.0 [facility] [place] [address] [facility] [place] [id number] [address] [place] [phone] Dec, Type 1 diabetes mellitus wit h hyperglycemia E10.65 [facility] [place] [address] [facility] [place] [id number] [address] [place] [address] Dec, Type 1 diabetes mellitus wit h hyperglycemia E10.65 ; Tobacco abuse Z72.0 and Tobacco abuse counseling Z71.6 [facility] [place] [address] [facility] [place] [id number] [address] [place] [address] Nov, Type 1 diabetes mellitus wit h hyperglycemia E10.65 [facility] [place] [address] [facility] [place] [id number] [address] [place] [id number] Oct, Type 1 diabetes mellitus wit h hyperglycemia E10.65 [facility] [place] [address] [facility] [place] [id number] [address] [place] [address] Oct, Type 1 diabetes mellitus wit h hyperglycemia E10.65 [facility] [place] [address] [facility] [place] [id number] [address] [place] [address] Sep, Type 1 diabetes mellitus wit h hyperglycemia E10.65 [facility] [place] [address] [facility] [place] [id number] [address] [place] [address] Aug, Type 1 diabetes mellitus wit h hyperglycemia E10.65 [facility] [place] [address] [id number] [address] [place] [phone] Aug, [facility] [place] [address] [id number] [address] [place] [address] Aug, Type 1 diabetes mellitus wit h hyperglycemia E10.65 [facility] [place] [address] [id number] [address] [place] [id number] Aug, Encounter for immunization Z 23 [facility] [place] [address] [id number] [address] [place] [address] Aug, Type 1 diabetes mellitus wit h hyperglycemia E10.65 [facility] [place] [address] [id number] [address] [place] [address] Jul, Type 1 diabetes mellitus wit h hyperglycemia E10.65 [facility] [place] [address] [id number] [address] [place] [address] Jul, Type 1 diabetes mellitus wit h hyperglycemia E10.65 [facility] [place] [address] [id number] [address] [place] [address] May, Type 1 diabetes mellitus wit h hyperglycemia E10.65 [facility] [place] [address] [id number] [address] [place] [id number] May, [facility] [place] [address] [id number] [address] [place] [address] Apr, [facility] [place] [address] [id number] [address] [place] [address] Apr, Type 1 diabetes mellitus wit h hyperglycemia E10.65 [facility] [place] [address] [id number] [address] [place] [id number] March, [facility] [place] [address] [facility] [id number] [address] [place] [id number] March, [facility] [place] [address] [id number] [address] [place] [phone] Jan, [facility] [place] [address] [id number] [address] [place] [id number] Jan, [facility] [place] [address] [id number] [address] [place] [id number] Jan, Type 1 diabetes mellitus wit h diabetic polyneuropathy E10.42 [facility] [place] [address] [id number] [address] [place] [id number] Jan, Type 1 diabetes mellitus wit h hyperglycemia E10.65 ; Excessive cerumen in both ear canals H61.23 and Controlled diabetes mellitus type 1 without complications E10.9 [facility] [place] [address] [id number] [address] [place] [phone] 16 Dec, 2016 [facility] [place] [address] [id number] [address] [place] [id number] Dec, [facility] [place] [address] [id number] [address] [place] [id number] Dec, [facility] [place] [address] [id number] [address] [place] [id number] Dec, [facility] [place] [address] [id number] [address] [place] [address] Nov, [facility] [place] [address] [id number] [address] [place] [id number] Nov, [facility] [place] [address] [id number] [address] [place] [address] Oct, Type 1 diabetes mellitus wit h hyperglycemia E10.65 [facility] [place] [address] [id number] [address] [place] [id number] Sep, [facility] [place] [address] [id number] [address] [place] [id number] Sep, [facility] [place] [address] [id number] [address] [place] [phone] Sep, Controlled diabetes mellitus type 1 without complications E10.9 [facility] [place] [address] [id number] [address] [place] [id number] Sep, [facility] [address] [id number] [address] [place] [id number] Aug, Dental caries K02.9 [facility] [place] [address] [id number] [address] [place] [id number] Aug, Type 1 diabetes mellitus wit h diabetic polyneuropathy E10.42 [facility] [place] [address] [id number] [address] [place] [id number] Aug, [facility] [place] [address] [id number] [address] [place] [phone] Aug, [facility] [place] [address] [id number] [address] [place] [id number] Aug, [facility] [place] [address] [id number] [address] [place] [id number] Jul, Type 1 diabetes mellitus wit h hyperglycemia E10.65 [facility] [place] [address] [id number] [address] [place] [address] Jul, Type 1 diabetes mellitus wit h hyperglycemia E10.65 ; Tooth pain K08.8 and Encounter for immunization Z23 [facility] [address] [id number] [address] [place] [address] [id number] 08 Jul, 2016 Dental examination Z01.20 [facility] [place] [address] [id number] [address] [place] [id number] 08 Jul, 2016 [facility] [place] [address] [id number] [address] [place] [id number] 07 Jul, 2016 [facility] [place] [address] [id number] [address] [place] [id number] Jul, [facility] [place] [address] [id number] [address] [place] [address] Jun, [facility] [place] [address] [id number] [address] [place] [id number] May, [facility] [place] [address] [id number] [address] [place] [id number] Apr, [facility] [address] [id number] [address] [place] [address], [place] [address] Apr, [facility] [address] [id number] [address] [place] [address], [place] [address] Apr, [facility] [address] [id number] [address] [place] [address], [place] [address] March, [facility] [address] [id number] [address] [place] [address], [place] [address] March, [facility] [address] [id number] [address] [place] [address], [place] [address] Feb, [facility] [address] [id number] [address] [place] [address], [place] [address] Feb, [facility] [address] [id number] [address] [place] [address], [place] [address] Feb, Type 1 diabetes mellitus wit h hyperglycemia E10.65 [facility] [place] [address] [id number] [address] [place] [address], [place] [address] Jan, [facility] [address] [id number] [address] [place] [address], [place] [address] Jan, [facility] [address] [id number] [address] [place] [address], [place] [address] Jan, [facility] [address] [id number] [address] [place] [address], [place] [address] Jan, [facility] [address] [id number] [address] [place] [address], [place] [address] Dec, [facility] [address] [id number] [address] [place] [address], [place] [address] Nov, [facility] [address] [id number] [address] [place] [address], [place] [address] Nov, [facility] [address] [id number] [address] [place] [address], [place] [address] Oct, [facility] [place] [address] [facility] [place] [id number] [address] [place] [address] Oct, Type 1 diabetes mellitus wit h 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 ; Type 1 diabetes mellitus with hyperglycemia E10.65 ; Gastroparesis K31.84 and Esophageal stricture K22.2 [facility] [place] [address] [facility] [place] [id number] [address] [place] [address] Oct, [facility] [place] [address] [id number] [address] [place] [address] Sep, [facility] [place] [address] [facility] [place] [id number] [address] [place] [address] Sep, Type 1 diabetes mellitus wit h other diabetic neurological complication E10.49 [facility] [place] [address] [facility] [place] [id number] [address] [place] [id number] 22 Aug, 2015 Encounter for immunization Z 23 [facility] [place] [address] [facility] [place] [id number] [address] [place] [id number] 19 Aug, 2015 [facility] [place] [address] [facility] [place] [id number] [address] [place] [address] Aug, [facility] [place] [address] [facility] [place] [id number] [address] [place] [id number] Jul, [facility] [place] [address] [facility] [place] [id number] [address] [place] [id number] Jul, [facility] [place] [address] [facility] [place] [id number] [address] [place] [address] Jun, [facility] [place] [address] [facility] [place] [id number] [address] [place] [address] Jun, [facility] [place] [address] [facility] [place] [id number] [address] [place] [address] Jun, [facility] [place] [address] [facility] [place] [id number] [address] [place] [id number] May, [facility] [place] [address] [facility] [place] [id number] [address] [place] [address] May, [facility] [place] [address] [id number] [address] [place] [address] May, Diabetes type 1, controlled 250.01 [facility] [address] [id number] [address] [place] [address] May, [facility] [place] [address] [id number] [address] [place] [address] May, [facility] [address] [id number] [address] [place] [address] [id number] Apr, Dental examination V72.2 [facility] [place] [address] [id number] [address] [place] [id number] Apr, [facility] [place] [address] [id number] [address] [place] [address] Apr, [facility] [place] [address] [id number] [address] [place] [address] Apr, [facility] [place] [address] [id number] [address] [place] [id number] Apr, [facility] [place] [address] [id number] [address] [place] [address] Apr, [facility] [address] [id number] [address] [place] [id number] Apr, Dental examination V72.2 [facility] [place] [address] [id number] [address] [place] [id number] Apr, [facility] [place] [address] [id number] [address] [place] [id number] Apr, [facility] [place] [address] [id number] [address] [place] [id number] March, Diabetes mellitus type 1 250 .01 [facility] [place] [address] [id number] [address] [place] [address] March, [facility] [place] [address] [id number] [address] [place] [phone] 14 Feb, 2015 [facility] [address] [id number] [address] [place] [address], [place] [address] Feb, [facility] [address] [id number] [address] [place] [address], [place] [address] Jan, [facility] [address] [id number] [address] [place] [address], [place] [address] Jan, [facility] [address] [id number] [address] [place] [address], [place] [address] Jan, [facility] [address] [id number] [address] [place] [address], [place] [address] Jan, [facility] [address] [id number] [address] [place] [address], [place] [address] Dec, [facility] [address] [id number] [address] [place] [address], [place] [address] Dec, [facility] [address] [id number] [address] [place] [address], [place] [address] Nov, [facility] [address] [id number] [address] [place] [address], [place] [address] Nov, [facility] [address] [id number] [address] [place] [address], [place] [address] Nov, [facility] [address] [id number] [address] [place] [address], [place] [address] Nov, [facility] [address] [id number] [address] [place] [address], [place] [address] Nov, [facility] [address] [id number] [address] [place] [address], [place] [address] Nov, [facility] [address] [id number] [address] [place] [address], [place] [address] Nov, [facility] [address] [id number] [address] [place] [address], [place] [address] Oct, [facility] [address] [id number] [address] [place] [address], [place] [address] Oct, [facility] [address] [id number] [address] [place] [address], [place] [address] Sep, [facility] [address] [id number] [address] [place] [address], [place] [address] Aug, [facility] [address] [id number] [address] [place] [address], [place] [address] Aug, [facility] [address] [id number] [address] [place] [address], [place] [address] Aug, [facility] [address] [id number] [address] [place] [address], [place] [address] Aug, [facility] [address] [id number] [address] [place] [address], [place] [address] Aug, [facility] [address] [id number] [address] [place] [address], [place] [address] Aug, [facility] [address] [id number] [address] [place] [address], [place] [address] Aug, [facility] [address] [id number] [address] [place] [address], [place] [address] Aug, [facility] [address] [id number] [address] [place] [address], [place] [address] Aug, [facility] [address] [id number] [address] [place] [address], [place] [address] Aug, [facility] [address] [id number] [address] [place] [address], [place] [address] Aug, [facility] [address] [id number] [address] [place] [address], [place] [address] Aug, [facility] [address] [id number] [address] [place] [address], [place] [address] Aug, [facility] [address] [id number] [address] [place] [address], [place] [address] Aug, [facility] [address] [id number] [facility] [place] [address] Jul, [facility] [address] [id number] [address] [place] [address], [place] [address] Jul, [facility] [address] [id number] [address] [place] [address], [place] [address] Jul, [facility] [address] [id number] [address] [place] [address], [place] [address] Jul, [facility] [address] [id number] [address] [place] [address], [place] [address] Jun, [facility] [address] [id number] [address] [place] [address], [place] [address] Jun, [facility] [address] [id number] [address] [place] [address], [place] [address] Jun, [facility] [address] [id number] [address] [place] [address], [place] [address] Jun, [facility] [address] [id number] [address] [place] [address], [place] [address] May, [facility] [address] [id number] [address] [place] [address], [place] [address] May, [facility] [address] [id number] [address] [place] [address], [place] [address] May, [facility] [address] [id number] [address] [place] [address], [place] [address] May, [facility] [address] [id number] [address] [place] [address], [place] [address] May, [facility] [address] [id number] [address] [place] [address], [place] [address] May, [facility] [address] [id number] [address] [place] [address], [place] [address] May, [facility] [address] [id number] [facility] [place] [address] May, 2013 [facility] [address] [id number] [facility] [place] [address] May, 2013 [facility] [address] [id number] [facility] [place] [address] May, 2013 [facility] [address] [id number] [address] [place] [address], [place] [address] May, 2013 [facility] [address] [id number] [address] [place] [address], [place] [address] May, [facility] [address] [id number] [address] [place] [address], [place] [address] May, [facility] [address] [id number] [address] [place] [address], [place] [address] Apr, [facility] [address] [id number] [address] [place] [address], [place] [address] Apr, [facility] [address] [id number] [address] [place] [address], [place] [address] Apr, [facility] [address] [id number] [address] [place] [address], [place] [address] Apr, [facility] [address] [id number] [address] [place] [address], [place] [address] Apr, [facility] [address] [id number] [address] [place] [address], [place] [address] Apr, [facility] [address] [id number] [address] [place] [address], [place] [address] Apr, [facility] [address] [id number] [address] [place] [address], [place] [address] Apr, [facility] [address] [id number] [address] [place] [address], [place] [address] Apr, [facility] [address] [id number] [address] [place] [address], [place] [address] Apr, [facility] [address] [id number] [address] [place] [address], [place] [address] Apr, [facility] [address] [id number] [address] [place] [address], [place] [address] Apr, [facility] [address] [id number] [address] [place] [address], [place] [address] Apr, [facility] [address] [id number] [address] [place] [address], [place] [address] Apr, [facility] [address] [id number] [address] [place] [address], [place] [address] March, [facility] [address] [id number] [address] [place] [address], [place] [address] March, [facility] [address] [id number] [address] [place] [address], [place] [address] March, [facility] [address] [id number] [address] [place] [address], [place] [address] March, [facility] [address] [id number] [address] [place] [address], [place] [address] March, [facility] [address] [id number] [address] [place] [address], [place] [address] March, [facility] [address] [id number] [address] [place] [address], [place] [address] March, [facility] [address] [id number] [address] [place] [address], [place] [address] March, [facility] [address] [id number] [address] [place] [address], [place] [address] March, [facility] [address] [id number] [address] [place] [address], [place] [address] March, [facility] [address] [id number] [address] [place] [address], [place] [address] Feb, [facility] [address] [id number] [address] [place] [address], [place] [address] Feb, [facility] [address] [id number] [facility] [place] [address] Feb, [facility] [address] [id number] [address] [place] [address], [place] [address] Feb, [facility] [address] [id number] [address] [place] [address], [place] [address] Feb, [facility] [address] [id number] [address] [place] [address], [place] [address] Feb, [facility] [address] [id number] [address] [place] [address], [place] [address] Feb, [facility] [address] [id number] [address] [place] [address], [place] [address] Feb, [facility] [address] [id number] [address] [place] [address], [place] [address] Jan, [facility] [address] [id number] [address] [place] [address], [place] [address] Jan, [facility] [address] [id number] [address] [place] [address], [place] [address] Jan, [facility] [address] [id number] [address] [place] [address], [place] [address] Jan, [facility] [address] [id number] [address] [place] [address], [place] [address] Jan, [facility] [address] [id number] [address] [place] [address], [place] [address] Jan, [facility] [address] [id number] [address] [place] [address], [place] [address] Jan, [facility] [address] [id number] [address] [place] [address], [place] [address] Jan, [facility] [address] [id number] [address] [place] [address], [place] [address] Jan, [facility] [address] [id number] [address] [place] [address], [place] [address] Jan, [facility] [address] [id number] [address] [place] [address], [place] [address] Dec, [facility] [address] [id number] [address] [place] [address], [place] [address] Dec, [facility] [address] [id number] [address] [place] [address], [place] [address] Nov, [facility] [address] [id number] [address] [place] [address], [place] [address] Nov, [facility] [address] [id number] [address] [place] [address], [place] [address] Nov, [facility] [address] [id number] [address] [place] [address], [place] [address] Nov, [facility] [address] [id number] [address] [place] [address], [place] [address] Nov, [facility] [address] [id number] [address] [place] [address], [place] [address] Nov, [facility] [address] [id number] [address] [place] [address], [place] [address] Nov, [facility] [address] [id number] [address] [place] [address], [place] [address] Nov, [facility] [address] [id number] [address] [place] [address], [place] [address] Oct, [facility] [address] [id number] [address] [place] [address], [place] [address] Oct, [facility] [address] [id number] [address] [place] [address], [place] [address] Oct, [facility] [address] [id number] [address] [place] [address], [place] [address] Oct, [facility] [address] [id number] [address] [place], [place] [address] [address] Oct, [facility] [address] [id number] [address] [place] [address], [place] [address] Oct, [facility] [address] [id number] [address] [place] [address], [place] [address] Sep, [facility] [address] [id number] [address] [place] [address], [place] [address] Sep, [facility] [address] [id number] [address] [place] [address], [place] [address] Sep, [facility] [address] [id number] [address] [place] [address], [place] [address] Sep, [facility] [address] [id number] [address] [place] [address], [place] [address] Sep, [facility] [address] [id number] [address] [place] [address], [place] [address] Aug, [facility] [address] [id number] [address] [place] [address] Aug, [facility] [address] [id number] [address] [place] [address] Aug, [facility] [address] [id number] [address] [place] [id number] Aug, [facility] [address] [id number] [address] [place] [address] Aug, [facility] [address] [id number] [address] [place] [address] Aug, [facility] [address] [id number] [address] [place] [id number] Jul, [facility] [address] [id number] [address] [place] [address] Jul, [facility] [address] [id number] [address] [place] [address] Jul, [facility] [address] [id number] [address] [place] [address], [place] [address] Jun, [facility] [place] [address] [id number] [address] [place] [address], [place] [address] Jun, [facility] [address] [id number] [address] [place] [address], [place] [address] May, [facility] [address] [id number] [address] [place] [address], [place] [address] May, [facility] [address] [id number] [address] [place] [address], [place] [address] Apr, [facility] [address] [id number] [address] [place] [address], [place] [address] Apr, [facility] [address] [id number] [address] [place] [address], [place] [address] Apr, [facility] [place] [address] [id number] [address] [place] [address], [place] [address] March, [facility] [place] [address] [id number] [address] [place] [address], [place] [address] Feb, [facility] [address] [id number] [address] [place] [address], [place] [address] Feb, [facility] [address] [id number] [address] [place] [address], [place] [address] Jan, [facility] [place] [address] [id number] [address] [place] [address], [place] [address] Jan, [facility] [address] [id number] [address] [place] [address], [place] [address] Jan, [facility] [address] [id number] [address] [place] [address], [place] [address] Jan, [facility] [address] [id number] [address] [place] [address], [place] [address] Jan, [facility] [address] [id number] [address] [place] [address], [place] [address] Dec, [facility] [address] [id number] [address] [place] [address], [place] [address] Dec, [facility] [address] [id number] [address] [place] [address], [place] [address] Dec, [facility] [address] [id number] [address] [place] [address], [place] [address] Dec, [facility] [address] [id number] [address] [place] [address], [place] [address] Dec, [facility] [address] [id number] [address] [place] [address], [place] [address] Dec, [facility] [address] [place] [id number] Nov, [facility] [address] [id number] [address] [place] [address], [place] [address] Nov, [facility] [address] [id number] [address] [place] [address], [place] [address] Nov, [facility] [address] [id number] [address] [place] [address], [place] [address] Nov, [facility] [address] [id number] [address] [place] [address], [place] [address] Nov, [facility] [address] [id number] [address] [place] [address], [place] [address] Oct, [facility] [address] [id number] [address] [place] [address], [place] [address] Oct, [facility] [address] [id number] [address] [place] [address], [place] [address] Oct, [facility] [address] [id number] [address] [place] [address], [place] [address] Oct, [facility] [address] [id number] [address] [place] [address], [place] [address] Oct, [facility] [address] [id number] [address] [place] [address], [place] [address] Oct, [facility] [address] [id number] [address] [place] [address], [place] [address] Oct, [facility] [address] [id number] [address] [place] [address], [place] [address] Oct, [facility] [address] [id number] [address] [place] [address], [place] [address] Sep, [facility] [address] [id number] [address] [place] [address], [place] [address] Sep, [facility] [address] [id number] [address] [place] [address], [place] [address] Sep, [facility] [address] [id number] [address] [place] [address], [place] [address] Sep, [facility] [address] [id number] [address] [place] [address], [place] [address] Sep, [facility] [address] [id number] [address] [place] [address], [place] [address] Sep, [facility] [address] [id number] [address] [place] [address], [place] [address] Sep, [facility] [address] [id number] [address] [place] [address], [place] [address] Sep, [facility] [address] [id number] [address] [place] [address], [place] [address] Sep, [facility] [address] [id number] [address] [place] [address], [place] [address] Sep, [facility] [address] [id number] [address] [place] [address], [place] [address] Sep, [facility] [address] [id number] [address] [place] [address], [place] [address] Sep, [facility] [address] [id number] [address] [place] [address], [place] [address] Sep, [facility] [address] [id number] [address] [place] [id number] Sep, [facility] [place] [address] [facility] [place] [id number] [address] [place] [id number] Sep, [facility] [place] [address] [facility] [place] [id number] [address] [place] [id number] Sep, IMMUNIZATIONS No Known Immunizations SOCIAL HISTORY [...]
--- OUTSIDE RECORDS SUMMARY | 2020-04-17 21:15 | XMS REPORT ---
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 Active 07621900 Problem Other chronic pain G89.29 Active 8 3262274 Problem Hypertension, essential I10 Active 96160861 Problem Vitamin D deficiency E55.9 Active 60381869 Problem Mood disorder F39 Active 221446 05 Problem Type 1 diabetes mellitus with hyperglycemia E10.65 Active [id number] Problem Type 1 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 Active 19394947 Problem Chronic fatigue R53.82 Active 8422 9001 Problem Controlled diabetes mellitus type 1 without complications E10.9 Active 70660554 ALLERGIES No Information ENCOUNTERS Encounter Location Date Diagnosis [place] [address] [address] [place] [id number] [address] [place] [id number] 04 Mar, 2020 Type 1 diabetes mellitus wit h other diabetic neurological complication E10.49 [place] [address] [address] [place] [id number] [address] [place] [phone] 04 Mar, 2020 Type 1 diabetes mellitus wit h other diabetic neurological complication E10.49 [place] [address] [address] [facility] [id number] [address] [place] [id number] Feb, Type 1 diabetes mellitus wit h other diabetic neurological complication E10.49 [place] [address] [address] [place] [id number] [address] [place] [phone] Jan, Type 1 diabetes mellitus wit h other diabetic neurological complication E10.49 [place] [address] [address] [place] [id number] [address] [place] [phone] Jan, Type 1 diabetes mellitus wit h other diabetic neurological complication E10.49 [facility] [address] [facility] [id number] [address] [place] [address] 03 Dec, 2019 Type 1 diabetes mellitus wit h other diabetic neurological complication E10.49 [facility] [address] [facility] [id number] [address] [place] [address] 13 Nov, 2019 Type 1 diabetes mellitus wit h diabetic polyneuropathy E10.42 ; Mood disorder F39 ; Vitamin D deficiency E55.9 and Renal insufficiency N28.9 [facility] [address] [facility] [id number] [address] [place] [id number] 03 Nov, 2019 Type 1 diabetes mellitus wit h other diabetic neurological complication E10.49 [facility] [address] [facility] [id number] [address] [place] [id number] 12 Oct, 2019 Other chronic pain G89.29 [facility] [address] [facility] [id number] [address] [place] [phone] 02 Oct, 2019 Type 1 diabetes mellitus wit h other diabetic neurological complication E10.49 [facility] [address] [facility] [id number] [address] [place] [id number] 02 Oct, 2019 [facility] [address] [facility] [id number] [address] [place] [phone] 29 Aug, 2019 Type 1 diabetes mellitus wit h other diabetic neurological complication E10.49 [facility] [address] [facility] [id number] [address] [place] [phone] 14 Aug, 2019 Encounter for immunization Z 23 [facility] [address] [facility] [id number] [address] [place] [id number] 08 Aug, 2019 Vitamin D deficiency E55.9 [facility] [address] [facility] [id number] [address] [place] [phone] 26 Jul, 2019 Type 1 diabetes mellitus wit h other diabetic neurological complication E10.49 [facility] [address] [facility] [id number] [address] [place] [id number] 13 Jul, 2019 Type 1 diabetes mellitus wit h hyperglycemia E10.65 [facility] [address] [facility] [id number] [address] [place] [address] Jun, Type 1 diabetes mellitus wit h other diabetic neurological complication E10.49 [facility] [address] [id number] [address] [place] [id number] May, [facility] [address] [id number] [address] [place] [phone] May, [facility] [address] [id number] [address] [place] [address] May, Other chronic pain G89.29 [facility] [address] [id number] [address] [place] [address] May, [facility] [address] [id number] [address] [place] [id number] May, Type 1 diabetes mellitus wit h other diabetic neurological complication E10.49 [facility] [address] [id number] [address] [place] [phone] Apr, [facility] [address] [id number] [address] [place] [address] Apr, Type 1 diabetes mellitus wit h other diabetic neurological complication E10.49 [facility] [address] [id number] [address] [place] [phone] Apr, Encounter for Medicare annua l wellness exam Z00.00 [facility] [address] [id number] [address] [place] [address] March, Encounter for Medicare annua l wellness exam Z00.00 and Type 1 diabetes mellitus with other diabetic neurological complication E10.49 [facility] [address] [id number] [address] [place] [address] Feb, Type 1 diabetes mellitus wit h other diabetic neurological complication E10.49 [facility] [address] [id number] [address] [place] [address] Feb, Encounter for Medicare annua l wellness exam Z00.00 ; Mood disorder F39 ; Type 1 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 ; Hypertension, essential I10 and Chronic fatigue R53.82 [facility] [address] [id number] [address] [place] [address] 13 Jan, 2019 Type 1 diabetes mellitus wit h other diabetic neurological complication E10.49 [facility] [address] [id number] [address] [place] [address] 11 Jan, 2019 [facility] [address] [id number] [address] [place] [address] Jan, Other chronic pain G89.29 [facility] [address] [id number] [address] [place] [phone] 11 Dec, 2018 [facility] [address] [id number] [address] [place] [address] 08 Dec, 2018 Type 1 diabetes mellitus wit h other diabetic neurological complication E10.49 [facility] [address] [id number] [address] [place] [address] 05 Dec, 2018 Other chronic pain G89.29 [facility] [address] [id number] [address] [place] [address] Nov, [facility] [address] [id number] [address] [place] [address] [id number] Nov, Caries K02.9 [facility] [address] [id number] [address] [place] [address] Nov, Type 1 diabetes mellitus wit h other diabetic neurological complication E10.49 [facility] [address] [id number] [address] [place] [address] Nov, Controlled diabetes mellitus type 1 without complications E10.9 ; Other chronic pain G89.29 and Pain in left knee M25.562 [facility] [address] [id number] [address] [place] [address] [id number] Oct, Dental examination Z01.20 [facility] [address] [id number] [address] [place] [phone] 14 Oct, 2018 Cutaneous abscess of unspeci fied foot L02.619 and Cellulitis of unspecified part of limb L03.119 [facility] [address] [facility] [id number] [address] [place] [address] 11 Oct, 2018 [facility] [address] [facility] [id number] [address] [place] [id number] 10 Oct, 2018 Type 1 diabetes mellitus wit h other diabetic neurological complication E10.49 [facility] [address] [facility] [id number] [address] [place] [address] [id number] 06 Oct, 2018 Dental examination Z01.20 an d Caries K02.9 [facility] [address] [facility] [id number] [address] [place] [address] 04 Oct, 2018 Cutaneous abscess of left fo ot L02.612 and Cellulitis of left lower limb L03.116 [facility] [address] [place] [id number] [address] [place] [id number] 04 Oct, 2018 Dental examination Z01.20 an d Pain, dental K08.89 [facility] [address] [facility] [id number] [address] [place] [address] Sep, Left foot pain M79.672 and L eft anterior knee pain M25.562 [facility] [address] [facility] [id number] [address] [place] [address] Sep, Type 1 diabetes mellitus wit h other diabetic neurological complication E10.49 [facility] [address] [facility] [id number] [address] [place] [phone] Sep, [facility] [address] [place] [id number] [address] [place] [address] Aug, Type 1 diabetes mellitus wit h other diabetic neurological complication E10.49 [facility] [address] [place] [id number] [address] [place] [phone] 10 Aug, 2018 Encounter for immunization Z 23 [facility] [address] [facility] [id number] [address] [place] [address] 05 Aug, 2018 Type 1 diabetes mellitus wit h hyperglycemia E10.65 [facility] [address] [place] [id number] [address] [place] [phone] 21 Jul, 2018 Type 1 diabetes mellitus wit h hyperglycemia E10.65 [facility] [address] [id number] [address] [place] [id number] 19 Jul, 2018 [facility] [address] [id number] [address] [place] [phone] 18 Jul, 2018 [facility] [address] [id number] [address] [place] [address] Jul, Type 1 diabetes mellitus wit h other diabetic neurological complication E10.49 [facility] [address] [id number] [address] [place] [address] Jul, Type 1 diabetes mellitus wit h other diabetic neurological complication E10.49 and Mood disorder F39 [facility] [address] [id number] [address] [place] [address] Jun, [facility] [address] [facility] [id number] [address] [place] [id number] Jun, Type 1 diabetes mellitus wit h other diabetic neurological complication E10.49 and Chronic fatigue R53.82 [facility] [address] [id number] [address] [place] [address] May, Type 1 diabetes mellitus wit h other diabetic neurological complication E10.49 [facility] [address] [facility] [id number] [address] [place] [phone] May, [facility] [address] [facility] [id number] [address] [place] [phone] May, [facility] [address] [facility] [id number] [address] [place] [address] Apr, [facility] [address] [facility] [id number] [address] [place] [address] Apr, Type 1 diabetes mellitus wit h other diabetic neurological complication E10.49 [facility] [address] [facility] [id number] [address] [place] [id number] March, [facility] [address] [facility] [id number] [address] [place] [phone] Feb, [facility] [address] [facility] [id number] [address] [place] [id number] Feb, Type 1 diabetes mellitus wit h other diabetic neurological complication E10.49 ; Tobacco abuse Z72.0 and Tobacco abuse counseling Z71.6 [facility] [address] [facility] [id number] [address] [place] [address] Jan, Type 1 diabetes mellitus wit h hyperglycemia E10.65 [facility] [address] [facility] [id number] [address] [place] [phone] Jan, [facility] [address] [facility] [id number] [address] [place] [address] Dec, Tobacco abuse Z72.0 [facility] [address] [facility] [id number] [address] [place] [address] Dec, Type 1 diabetes mellitus wit h hyperglycemia E10.65 [facility] [address] [facility] [id number] [address] [place] [address] Dec, Type 1 diabetes mellitus wit h hyperglycemia E10.65 ; Tobacco abuse Z72.0 and Tobacco abuse counseling Z71.6 [facility] [address] [facility] [id number] [address] [place] [address] Nov, Type 1 diabetes mellitus wit h hyperglycemia E10.65 [facility] [address] [facility] [id number] [address] [place] [address] Oct, Type 1 diabetes mellitus wit h hyperglycemia E10.65 [facility] [address] [facility] [id number] [address] [place] [address] Oct, Type 1 diabetes mellitus wit h hyperglycemia E10.65 [facility] [address] [facility] [id number] [address] [place] [address] Sep, Type 1 diabetes mellitus wit h hyperglycemia E10.65 [facility] [address] [facility] [id number] [address] [place] [address] Aug, Type 1 diabetes mellitus wit h hyperglycemia E10.65 [facility] [address] [id number] [address] [place] [id number] Aug, [facility] [address] [id number] [address] [place] [address] Aug, Type 1 diabetes mellitus wit h hyperglycemia E10.65 [facility] [address] [id number] [address] [place] [address] Aug, Encounter for immunization Z 23 [facility] [address] [id number] [address] [place] [address] Aug, Type 1 diabetes mellitus wit h hyperglycemia E10.65 [facility] [address] [id number] [address] [place] [address] Jul, Type 1 diabetes mellitus wit h hyperglycemia E10.65 [facility] [address] [id number] [address] [place] [id number] Jul, Type 1 diabetes mellitus wit h hyperglycemia E10.65 [facility] [address] [id number] [address] [place] [address] May, Type 1 diabetes mellitus wit h hyperglycemia E10.65 [facility] [address] [id number] [address] [place] [address] May, [facility] [address] [id number] [address] [place] [phone] Apr, [facility] [address] [id number] [address] [place] [id number] Apr, Type 1 diabetes mellitus wit h hyperglycemia E10.65 [facility] [address] [id number] [address] [place] [address] March, [facility] [address] [facility] [id number] [address] [place] [phone] March, [facility] [address] [id number] [address] [place] [phone] Jan, [facility] [address] [id number] [address] [place] [phone] Jan, [facility] [address] [id number] [address] [place] [address] Jan, Type 1 diabetes mellitus wit h diabetic polyneuropathy E10.42 [facility] [address] [id number] [address] [place] [phone] Jan, Type 1 diabetes mellitus wit h hyperglycemia E10.65 ; Excessive cerumen in both ear canals H61.23 and Controlled diabetes mellitus type 1 without complications E10.9 [facility] [address] [id number] [address] [place] [id number] 16 Dec, 2016 [facility] [address] [id number] [address] [place] [address] Dec, [facility] [address] [id number] [address] [place] [phone] Dec, [facility] [address] [id number] [address] [place] [phone] Dec, [facility] [address] [id number] [address] [place] [address] Nov, [facility] [address] [id number] [address] [place] [phone] Nov, [facility] [address] [id number] [address] [place] [address] Oct, Type 1 diabetes mellitus wit h hyperglycemia E10.65 [facility] [address] [id number] [address] [place] [phone] Sep, [facility] [address] [id number] [address] [place] [phone] Sep, [facility] [address] [id number] [address] [place] [address] Sep, Controlled diabetes mellitus type 1 without complications E10.9 [facility] [address] [id number] [address] [place] [phone] Sep, [facility] [address] [id number] [address] [place] [address] [id number] Aug, Dental caries K02.9 [facility] [address] [id number] [address] [place] [phone] Aug, Type 1 diabetes mellitus wit h diabetic polyneuropathy E10.42 [facility] [address] [id number] [address] [place] [phone] Aug, [facility] [address] [id number] [address] [place] [address] Aug, [facility] [address] [id number] [address] [place] [address] Aug, [facility] [address] [id number] [address] [place] [address] Jul, Type 1 diabetes mellitus wit h hyperglycemia E10.65 [facility] [address] [id number] [address] [place] [address] Jul, Type 1 diabetes mellitus wit h hyperglycemia E10.65 ; Tooth pain K08.8 and Encounter for immunization Z23 [facility] [address] [id number] [address] [place] [address] [id number] 08 Jul, 2016 Dental examination Z01.20 [facility] [address] [id number] [address] [place] [id number] 08 Jul, 2016 [facility] [address] [id number] [address] [place] [address] 07 Jul, 2016 [facility] [address] [id number] [address] [place] [address] Jul, [facility] [address] [id number] [address] [place] [phone] Jun, [facility] [address] [id number] [address] [place] [phone] May, [facility] [address] [id number] [address] [place] [address] Apr, [facility] [address] [id number] [address] [place] [address], [place] [address] Apr, [facility] [address] [id number] [address] [place] [address], [place] [address] Apr, [facility] [address] [id number] [address] [place] [address], [place] [address] March, [facility] [address] [id number] [address] [place] [address], [place] [address] March, [facility] [address] [id number] [address] [place] [address], [place] [address] Feb, [facility] [address] [id number] [address] [place] [address], [place] [address] Feb, [facility] [address] [id number] [address] [place] [address], [place] [address] Feb, Type 1 diabetes mellitus wit h hyperglycemia E10.65 [facility] [address] [id number] [address] [place] [address], [place] [address] Jan, [facility] [address] [id number] [address] [place] [address], [place] [address] Jan, [facility] [address] [id number] [address] [place] [address], [place] [address] Jan, [facility] [address] [id number] [address] [place] [address], [place] [address] Jan, [facility] [address] [id number] [address] [place] [address], [place] [address] Dec, [facility] [address] [id number] [address] [place] [address], [place] [address] Nov, [facility] [address] [id number] [address] [place] [address], [place] [address] Nov, [facility] [address] [id number] [address] [place] [address], [place] [address] Oct, [facility] [address] [facility] [id number] [address] [place] [address] Oct, Type 1 diabetes mellitus wit h 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 ; Type 1 diabetes mellitus with hyperglycemia E10.65 ; Gastroparesis K31.84 and Esophageal stricture K22.2 [facility] [address] [facility] [id number] [address] [place] [phone] Oct, [facility] [address] [id number] [address] [place] [address] Sep, [facility] [address] [facility] [id number] [address] [place] [address] Sep, Type 1 diabetes mellitus wit h other diabetic neurological complication E10.49 [facility] [address] [facility] [id number] [address] [place] [address] 22 Aug, 2015 Encounter for immunization Z 23 [facility] [address] [facility] [id number] [address] [place] [phone] 19 Aug, 2015 [facility] [address] [facility] [id number] [address] [place] [phone] Aug, [facility] [address] [facility] [id number] [address] [place] [address] Jul, [facility] [address] [facility] [id number] [address] [place] [id number] Jul, [facility] [address] [facility] [id number] [address] [place] [phone] Jun, [facility] [address] [facility] [id number] [address] [place] [phone] Jun, [facility] [address] [facility] [id number] [address] [place] [address] Jun, [facility] [address] [facility] [id number] [address] [place] [address] May, [facility] [address] [facility] [id number] [address] [place] [address] May, [facility] [address] [id number] [address] [place] [address] May, Diabetes type 1, controlled 250.01 [facility] [address] [id number] [address] [place] [address] May, [facility] [address] [id number] [address] [place] [address] May, [facility] [address] [id number] [address] [place] [id number] Apr, Dental examination V72.2 [facility] [facility] [address] [id number] [address] [place] [address] Apr, [facility] [address] [id number] [address] [place] [address] Apr, [facility] [address] [id number] [address] [place] [address] Apr, [facility] [address] [id number] [address] [place] [address] Apr, [facility] [address] [id number] [address] [place] [address] Apr, [facility] [address] [id number] [address] [place] [id number] Apr, Dental examination V72.2 [facility] [address] [id number] [address] [place] [address] Apr, [facility] [address] [id number] [address] [place] [address] Apr, [facility] [address] [id number] [address] [place] [address] March, Diabetes mellitus type 1 250 .01 [facility] [address] [id number] [address] [place] [address] March, [facility] [address] [id number] [address] [place] [address] 14 Feb, 2015 [facility] [address] [id number] [address] [place] [address], [place] [address] Feb, [facility] [address] [id number] [address] [place] [address], [place] [address] Jan, [facility] [address] [id number] [address] [place] [address], [place] [address] Jan, [facility] [address] [id number] [address] [place] [address], [place] [address] Jan, [facility] [address] [id number] [address] [place] [address], [place] [address] Jan, [facility] [address] [id number] [address] [place] [address], [place] [address] Dec, [facility] [address] [id number] [address] [place] [address], [place] [address] Dec, [facility] [address] [id number] [address] [place] [address], [place] [address] Nov, [facility] [address] [id number] [address] [place] [address], [place] [address] Nov, [facility] [address] [id number] [address] [place] [address], [place] [address] Nov, [facility] [address] [id number] [address] [place] [address], [place] [address] Nov, [facility] [address] [id number] [address] [place] [address], [place] [address] Nov, [facility] [address] [id number] [address] [place] [address], [place] [address] Nov, [facility] [address] [id number] [address] [place] [address], [place] [address] Nov, [facility] [address] [id number] [address] [place] [address], [place] [address] Oct, [facility] [address] [id number] [address] [place] [address], [place] [address] Oct, [facility] [address] [id number] [address] [place] [address], [place] [address] Sep, [facility] [address] [id number] [address] [place] [address], [place] [address] Aug, [facility] [address] [id number] [address] [place] [address], [place] [address] Aug, [facility] [address] [id number] [address] [place] [address], [place] [address] Aug, [facility] [address] [id number] [address] [place] [address], [place] [address] Aug, [facility] [address] [id number] [address] [place] [address], [place] [address] Aug, [facility] [address] [id number] [address] [place] [address], [place] [address] Aug, [facility] [address] [id number] [address] [place] [address], [place] [address] Aug, [facility] [address] [id number] [address] [place] [address], [place] [address] Aug, [facility] [address] [id number] [address] [place] [address], [place] [address] Aug, [facility] [address] [id number] [address] [place] [address], [place] [address] Aug, [facility] [address] [id number] [address] [place] [address], [place] [address] Aug, [facility] [address] [id number] [address] [place] [address], [place] [address] Aug, [facility] [address] [id number] [address] [place] [address], [place] [address] Aug, [facility] [address] [id number] [address] [place] [address], [place] [address] Aug, [facility] [address] [id number] [facility] [place] [address] Jul, [facility] [address] [id number] [address] [place] [address], [place] [address] Jul, [facility] [address] [id number] [address] [place] [address], [place] [address] Jul, [facility] [address] [id number] [address] [place] [address], [place] [address] Jul, [facility] [address] [id number] [address] [place] [address], [place] [address] Jun, [facility] [address] [id number] [address] [place] [address], [place] [address] Jun, [facility] [address] [id number] [address] [place] [address], [place] [address] Jun, [facility] [address] [id number] [address] [place] [address], [place] [address] Jun, [facility] [address] [id number] [address] [place] [address], [place] [address] May, [facility] [address] [id number] [address] [place] [address], [place] [address] May, [facility] [address] [id number] [address] [place] [address], [place] [address] May, [facility] [address] [id number] [address] [place] [address], [place] [address] May, [facility] [address] [id number] [address] [place] [address], [place] [address] May, [facility] [address] [id number] [address] [place] [address], [place] [address] May, [facility] [address] [id number] [address] [place] [address], [place] [address] May, [facility] [address] [id number] [facility] [place] [address] May, 2013 [facility] [address] [id number] [facility] [place] [address] May, 2013 [facility] [address] [id number] [facility] [place] [address] May, 2013 [facility] [address] [id number] [address] [place] [address], [place] [address] May, 2013 [facility] [address] [id number] [address] [place] [address], [place] [address] May, [facility] [address] [id number] [address] [place] [address], [place] [address] May, [facility] [address] [id number] [address] [place] [address], [place] [address] Apr, [facility] [address] [id number] [address] [place] [address], [place] [address] Apr, [facility] [address] [id number] [address] [place] [address], [place] [address] Apr, [facility] [address] [id number] [address] [place] [address], [place] [address] Apr, [facility] [address] [id number] [address] [place] [address], [place] [address] Apr, [facility] [address] [id number] [address] [place] [address], [place] [address] Apr, [facility] [address] [id number] [address] [place] [address], [place] [address] Apr, [facility] [address] [id number] [address] [place] [address], [place] [address] Apr, [facility] [address] [id number] [address] [place] [address], [place] [address] Apr, [facility] [address] [id number] [address] [place] [address], [place] [address] Apr, [facility] [address] [id number] [address] [place] [address], [place] [address] Apr, [facility] [address] [id number] [address] [place] [address], [place] [address] Apr, [facility] [address] [id number] [address] [place] [address], [place] [address] Apr, [facility] [address] [id number] [address] [place] [address], [place] [address] Apr, [facility] [address] [id number] [address] [place] [address], [place] [address] March, [facility] [address] [id number] [address] [place] [address], [place] [address] March, [facility] [address] [id number] [address] [place] [address], [place] [address] March, [facility] [address] [id number] [address] [place] [address], [place] [address] March, [facility] [address] [id number] [address] [place] [address], [place] [address] March, [facility] [address] [id number] [address] [place] [address], [place] [address] March, [facility] [address] [id number] [address] [place] [address], [place] [address] March, [facility] [address] [id number] [address] [place] [address], [place] [address] March, [facility] [address] [id number] [address] [place] [address], [place] [address] March, [facility] [address] [id number] [address] [place] [address], [place] [address] March, [facility] [address] [id number] [address] [place] [address], [place] [address] Feb, [facility] [address] [id number] [address] [place] [address], [place] [address] Feb, [facility] [address] [id number] [facility] [place] [address] Feb, [facility] [address] [id number] [address] [place] [address], [place] [address] Feb, [facility] [address] [id number] [address] [place] [address], [place] [address] Feb, [facility] [address] [id number] [address] [place] [address], [place] [address] Feb, [facility] [address] [id number] [address] [place] [address], [place] [address] Feb, [facility] [address] [id number] [address] [place] [address], [place] [address] Feb, [facility] [address] [id number] [address] [place] [address], [place] [address] Jan, [facility] [address] [id number] [address] [place] [address], [place] [address] Jan, [facility] [address] [id number] [address] [place] [address], [place] [address] Jan, [facility] [address] [id number] [address] [place] [address], [place] [address] Jan, [facility] [address] [id number] [address] [place] [address], [place] [address] Jan, [facility] [address] [id number] [address] [place] [address], [place] [address] Jan, [facility] [address] [id number] [address] [place] [address], [place] [address] Jan, [facility] [address] [id number] [address] [place] [address], [place] [address] Jan, [facility] [address] [id number] [address] [place] [address], [place] [address] Jan, [facility] [address] [id number] [address] [place] [address], [place] [address] Jan, [facility] [address] [id number] [address] [place] [address], [place] [address] Dec, [facility] [address] [id number] [address] [place] [address], [place] [address] Dec, [facility] [address] [id number] [address] [place] [address], [place] [address] Nov, [facility] [address] [id number] [address] [place] [address], [place] [address] Nov, [facility] [address] [id number] [address] [place] [address], [place] [address] Nov, [facility] [address] [id number] [address] [place] [address], [place] [address] Nov, [facility] [address] [id number] [address] [place] [address], [place] [address] Nov, [facility] [address] [id number] [address] [place] [address], [place] [address] Nov, [facility] [address] [id number] [address] [place] [address], [place] [address] Nov, [facility] [address] [id number] [address] [place] [address], [place] [address] Nov, [facility] [address] [id number] [address] [place] [address], [place] [address] Oct, [facility] [address] [id number] [address] [place] [address], [place] [address] Oct, [facility] [address] [id number] [address] [place] [address], [place] [address] Oct, [facility] [address] [id number] [address] [place] [address], [place] [address] Oct, [facility] [address] [id number] [address] [place] [address] [address] Oct, [facility] [address] [id number] [address] [place] [address], [place] [address] Oct, [facility] [address] [id number] [address] [place] [address], [place] [address] Sep, [facility] [address] [id number] [address] [place] [address], [place] [address] Sep, [facility] [address] [id number] [address] [place] [address], [place] [address] Sep, [facility] [address] [id number] [address] [place] [address], [place] [address] Sep, [facility] [address] [id number] [address] [place] [address], [place] [address] Sep, [facility] [address] [id number] [address] [place] [address], [place] [address] Aug, [facility] [address] [id number] [address] [place] [address] Aug, [facility] [address] [id number] [address] [place] [address] Aug, [facility] [address] [id number] [address] [place] [address] Aug, [facility] [address] [id number] [address] [place] [address] Aug, [facility] [address] [id number] [address] [place] [address] Aug, [facility] [address] [id number] [address] [place] [address] Jul, [facility] [address] [id number] [address] [place] [address] Jul, [facility] [address] [id number] [address] [place] [address] Jul, [facility] [address] [id number] [address] [place] [address], [place] [address] Jun, [facility] [address] [id number] [address] [place] [address], [place] [address] Jun, [facility] [address] [id number] [address] [place] [address], [place] [address] May, [facility] [address] [id number] [address] [place] [address], [place] [address] May, [facility] [address] [id number] [address] [place] [address], [place] [address] Apr, [facility] [address] [id number] [address] [place] [address], [place] [address] Apr, [facility] [address] [id number] [address] [place] [address], [place] [address] Apr, [facility] [address] [id number] [address] [place] [address], [place] [address] March, [facility] [address] [id number] [address] [place] [address], [place] [address] Feb, [facility] [address] [id number] [address] [place] [address], [place] [address] Feb, [facility] [address] [id number] [address] [place] [address], [place] [address] Jan, [facility] [address] [id number] [address] [place] [address], [place] [address] Jan, [facility] [address] [id number] [address] [place] [address], [place] [address] Jan, [facility] [address] [id number] [address] [place] [address], [place] [address] Jan, [facility] [address] [id number] [address] [place] [address], [place] [address] Jan, [facility] [address] [id number] [address] [place] [address], [place] [address] Dec, [facility] [address] [id number] [address] [place] [address], [place] [address] Dec, [facility] [address] [id number] [address] [place] [address], [place] [address] Dec, [facility] [address] [id number] [address] [place] [address], [place] [address] Dec, [facility] [address] [id number] [address] [place] [address], [place] [address] Dec, [facility] [address] [id number] [address] [place] [address], [place] [address] Dec, [facility] [address] [place] [id number] Nov, [facility] [address] [id number] [address] [place] [address], [place] [address] Nov, [facility] [address] [id number] [address] [place] [address], [place] [address] Nov, [facility] [address] [id number] [address] [place] [address], [place] [address] Nov, [facility] [address] [id number] [address] [place] [address], [place] [address] Nov, [facility] [address] [id number] [address] [place] [address], [place] [address] Oct, [facility] [address] [id number] [address] [place] [address], [place] [address] Oct, [facility] [address] [id number] [address] [place] [address], [place] [address] Oct, [facility] [address] [id number] [address] [place] [address], [place] [address] Oct, [facility] [address] [id number] [address] [place] [address], [place] [address] Oct, [facility] [address] [id number] [address] [place] [address], [place] [address] Oct, [facility] [address] [id number] [address] [place] [address], [place] [address] Oct, [facility] [address] [id number] [address] [place] [address], [place] [address] Oct, [facility] [address] [id number] [address] [place] [address], [place] [address] Sep, [facility] [address] [id number] [address] [place] [address], [place] [address] Sep, [facility] [address] [id number] [address] [place] [address], [place] [address] Sep, [facility] [address] [id number] [address] [place] [address], [place] [address] Sep, [facility] [address] [id number] [address] [place] [address], [place] [address] Sep, [facility] [address] [id number] [address] [place] [address], [place] [address] Sep, [facility] [address] [id number] [address] [place] [address], [place] [address] Sep, [facility] [address] [id number] [address] [place] [address], [place] [address] Sep, [facility] [address] [id number] [address] [place] [address], [place] [address] Sep, [facility] [address] [id number] [address] [place] [address], [place] [address] Sep, [facility] [address] [id number] [address] [place] [address], [place] [address] Sep, [facility] [address] [id number] [address] [place] [address], [place] [address] Sep, [facility] [address] [id number] [address] [place] [address], [place] [address] Sep, [facility] [address] [id number] [address] [place] [id number] Sep, [facility] [address] [facility] [id number] [address] [place] [address] Sep, [facility] [address] [facility] [id number] [address] [place] [id number] Sep, IMMUNIZATIONS No Known Immunizations SOCIAL HISTORY [...]
--- OUTSIDE RECORDS SUMMARY | 2020-04-17 21:15 | XMS REPORT ---
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 Active 22728318 Problem Other chronic pain G89.29 Active 8 8676137 Problem Hypertension, essential I10 Active 45630229 Problem Vitamin D deficiency E55.9 Active 68486533 Problem Mood disorder F39 Active 429097 05 Problem Type 1 diabetes mellitus with hyperglycemia E10.65 Active [id number] Problem Type 1 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 Active 73615132 Problem Chronic fatigue R53.82 Active 8422 9001 Problem Controlled diabetes mellitus type 1 without complications E10.9 Active [id number] ALLERGIES No Information ENCOUNTERS Encounter Location Date Diagnosis [place] [address] [place] [id number] [address] [place] [id number] 04 Mar, 2020 Type 1 diabetes mellitus wit h other diabetic neurological complication E10.49 [place] [address] [place] [id number] [address] [place] [id number] 04 Mar, 2020 Type 1 diabetes mellitus wit h other diabetic neurological complication E10.49 [place] [address] [facility] [place] [id number] [address] [place] [id number] Feb, Type 1 diabetes mellitus wit h other diabetic neurological complication E10.49 [place] [address] [place] [id number] [address] [place] [phone] Jan, Type 1 diabetes mellitus wit h other diabetic neurological complication E10.49 [place] [address] [place] [id number] [address] [place] [id number] Jan, Type 1 diabetes mellitus wit h other diabetic neurological complication E10.49 [facility] [address] [facility] [place] [id number] [address] [place] [id number] 03 Dec, 2019 Type 1 diabetes mellitus wit h other diabetic neurological complication E10.49 [facility] [address] [facility] [place] [id number] [address] [place] [id number] 13 Nov, 2019 Type 1 diabetes mellitus wit h diabetic polyneuropathy E10.42 ; Mood disorder F39 ; Vitamin D deficiency E55.9 and Renal insufficiency N28.9 [facility] [address] [facility] [place] [id number] [address] [place] [phone] 03 Nov, 2019 Type 1 diabetes mellitus wit h other diabetic neurological complication E10.49 [facility] [address] [facility] [place] [id number] [address] [place] [id number] 12 Oct, 2019 Other chronic pain G89.29 [facility] [address] [facility] [place] [id number] [address] [place] [id number] 02 Oct, 2019 Type 1 diabetes mellitus wit h other diabetic neurological complication E10.49 [facility] [address] [facility] [place] [id number] [address] [place] [id number] 02 Oct, 2019 [facility] [address] [facility] [place] [id number] [address] [place] [id number] 29 Aug, 2019 Type 1 diabetes mellitus wit h other diabetic neurological complication E10.49 [facility] [address] [facility] [place] [id number] [address] [place] [id number] 14 Aug, 2019 Encounter for immunization Z 23 [facility] [address] [facility] [place] [id number] [address] [place] [id number] 08 Aug, 2019 Vitamin D deficiency E55.9 [facility] [address] [facility] [place] [id number] [address] [place] [id number] 26 Jul, 2019 Type 1 diabetes mellitus wit h other diabetic neurological complication E10.49 [facility] [address] [facility] [place] [id number] [address] [place] [id number] 13 Jul, 2019 Type 1 diabetes mellitus wit h hyperglycemia E10.65 [facility] [address] [facility] [place] [id number] [address] [place] [phone] Jun, Type 1 diabetes mellitus wit h other diabetic neurological complication E10.49 [facility] [address] [id number] [address] [place] [phone] May, [facility] [address] [id number] [address] [place] [id number] May, [facility] [address] [id number] [address] [place] [phone] May, Other chronic pain G89.29 [facility] [address] [id number] [address] [place] [phone] May, [facility] [address] [id number] [address] [place] [phone] May, Type 1 diabetes mellitus wit h other diabetic neurological complication E10.49 [facility] [address] [id number] [address] [place] [id number] Apr, [facility] [address] [id number] [address] [place] [phone] Apr, Type 1 diabetes mellitus wit h other diabetic neurological complication E10.49 [facility] [address] [id number] [address] [place] [id number] Apr, Encounter for Medicare annua l wellness exam Z00.00 [facility] [address] [id number] [address] [place] [phone] March, Encounter for Medicare annua l wellness exam Z00.00 and Type 1 diabetes mellitus with other diabetic neurological complication E10.49 [facility] [address] [id number] [address] [place] [id number] Feb, Type 1 diabetes mellitus wit h other diabetic neurological complication E10.49 [facility] [address] [id number] [address] [place] [phone] Feb, Encounter for Medicare annua l wellness exam Z00.00 ; Mood disorder F39 ; Type 1 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 ; Hypertension, essential I10 and Chronic fatigue R53.82 [facility] [address] [id number] [address] [place] [id number] 13 Jan, 2019 Type 1 diabetes mellitus wit h other diabetic neurological complication E10.49 [facility] [address] [id number] [address] [place] [phone] 11 Jan, 2019 [facility] [address] [id number] [address] [place] [phone] Jan, Other chronic pain G89.29 [facility] [address] [id number] [address] [place] [id number] 11 Dec, 2018 [facility] [address] [id number] [address] [place] [id number] 08 Dec, 2018 Type 1 diabetes mellitus wit h other diabetic neurological complication E10.49 [facility] [address] [id number] [address] [place] [id number] 05 Dec, 2018 Other chronic pain G89.29 [facility] [address] [id number] [address] [place] [phone] Nov, [facility] [address] [id number] [address] [place] [id number] Nov, Caries K02.9 [facility] [address] [id number] [address] [place] [id number] Nov, Type 1 diabetes mellitus wit h other diabetic neurological complication E10.49 [facility] [address] [id number] [address] [place] [id number] Nov, Controlled diabetes mellitus type 1 without complications E10.9 ; Other chronic pain G89.29 and Pain in left knee M25.562 [facility] [address] [id number] [address] [place] [address] [id number] Oct, Dental examination Z01.20 [facility] [address] [id number] [address] [place] [id number] 14 Oct, 2018 Cutaneous abscess of unspeci fied foot L02.619 and Cellulitis of unspecified part of limb L03.119 [facility] [address] [facility] [place] [id number] [address] [place] [id number] 11 Oct, 2018 [facility] [address] [facility] [place] [id number] [address] [place] [id number] 10 Oct, 2018 Type 1 diabetes mellitus wit h other diabetic neurological complication E10.49 [facility] [address] [facility] [id number] [address] [place] [id number] 06 Oct, 2018 Dental examination Z01.20 an d Caries K02.9 [facility] [address] [facility] [place] [id number] [address] [place] [id number] 04 Oct, 2018 Cutaneous abscess of left fo ot L02.612 and Cellulitis of left lower limb L03.116 [facility] [address] [place] [id number] [address] [place] [id number] 04 Oct, 2018 Dental examination Z01.20 an d Pain, dental K08.89 [facility] [address] [facility] [place] [id number] [address] [place] [id number] Sep, Left foot pain M79.672 and L eft anterior knee pain M25.562 [facility] [address] [facility] [place] [id number] [address] [place] [id number] Sep, Type 1 diabetes mellitus wit h other diabetic neurological complication E10.49 [facility] [address] [facility] [place] [id number] [address] [place] [id number] Sep, [facility] [address] [place] [id number] [address] [place] [id number] Aug, Type 1 diabetes mellitus wit h other diabetic neurological complication E10.49 [facility] [address] [place] [id number] [address] [place] [id number] 10 Aug, 2018 Encounter for immunization Z 23 [facility] [address] [facility] [place] [id number] [address] [place] [id number] 05 Aug, 2018 Type 1 diabetes mellitus wit h hyperglycemia E10.65 [facility] [address] [place] [id number] [address] [place] [id number] 21 Jul, 2018 Type 1 diabetes mellitus wit h hyperglycemia E10.65 [facility] [address] [id number] [address] [place] [id number] 19 Jul, 2018 [facility] [address] [id number] [address] [place] [id number] 18 Jul, 2018 [facility] [address] [id number] [address] [place] [phone] Jul, Type 1 diabetes mellitus wit h other diabetic neurological complication E10.49 [facility] [address] [id number] [address] [place] [id number] Jul, Type 1 diabetes mellitus wit h other diabetic neurological complication E10.49 and Mood disorder F39 [facility] [address] [id number] [address] [place] [id number] Jun, [facility] [address] [facility] [place] [id number] [address] [place] [id number] Jun, Type 1 diabetes mellitus wit h other diabetic neurological complication E10.49 and Chronic fatigue R53.82 [facility] [address] [id number] [address] [place] [id number] May, Type 1 diabetes mellitus wit h other diabetic neurological complication E10.49 [facility] [address] [facility] [place] [id number] [address] [place] [phone] May, [facility] [address] [facility] [place] [id number] [address] [place] [phone] May, [facility] [address] [facility] [place] [id number] [address] [place] [id number] Apr, [facility] [address] [facility] [place] [id number] [address] [place] [id number] Apr, Type 1 diabetes mellitus wit h other diabetic neurological complication E10.49 [facility] [address] [facility] [place] [id number] [address] [place] [phone] March, [facility] [address] [facility] [place] [id number] [address] [place] [phone] Feb, [facility] [address] [facility] [place] [id number] [address] [place] [id number] Feb, Type 1 diabetes mellitus wit h other diabetic neurological complication E10.49 ; Tobacco abuse Z72.0 and Tobacco abuse counseling Z71.6 [facility] [address] [facility] [place] [id number] [address] [place] [id number] Jan, Type 1 diabetes mellitus wit h hyperglycemia E10.65 [facility] [address] [facility] [place] [id number] [address] [place] [id number] Jan, [facility] [address] [facility] [place] [id number] [address] [place] [id number] Dec, Tobacco abuse Z72.0 [facility] [address] [facility] [place] [id number] [address] [place] [id number] Dec, Type 1 diabetes mellitus wit h hyperglycemia E10.65 [facility] [address] [facility] [place] [id number] [address] [place] [id number] Dec, Type 1 diabetes mellitus wit h hyperglycemia E10.65 ; Tobacco abuse Z72.0 and Tobacco abuse counseling Z71.6 [facility] [address] [facility] [place] [id number] [address] [place] [id number] Nov, Type 1 diabetes mellitus wit h hyperglycemia E10.65 [facility] [address] [facility] [place] [id number] [address] [place] [id number] Oct, Type 1 diabetes mellitus wit h hyperglycemia E10.65 [facility] [address] [facility] [place] [id number] [address] [place] [id number] Oct, Type 1 diabetes mellitus wit h hyperglycemia E10.65 [facility] [address] [facility] [place] [id number] [address] [place] [phone] Sep, Type 1 diabetes mellitus wit h hyperglycemia E10.65 [facility] [address] [facility] [place] [id number] [address] [place] [id number] Aug, Type 1 diabetes mellitus wit h hyperglycemia E10.65 [facility] [address] [id number] [address] [place] [phone] Aug, [facility] [address] [id number] [address] [place] [phone] Aug, Type 1 diabetes mellitus wit h hyperglycemia E10.65 [facility] [address] [id number] [address] [place] [id number] Aug, Encounter for immunization Z 23 [facility] [address] [id number] [address] [place] [id number] Aug, Type 1 diabetes mellitus wit h hyperglycemia E10.65 [facility] [address] [id number] [address] [place] [phone] Jul, Type 1 diabetes mellitus wit h hyperglycemia E10.65 [facility] [address] [id number] [address] [place] [id number] Jul, Type 1 diabetes mellitus wit h hyperglycemia E10.65 [facility] [address] [id number] [address] [place] [id number] May, Type 1 diabetes mellitus wit h hyperglycemia E10.65 [facility] [address] [id number] [address] [place] [phone] May, [facility] [address] [id number] [address] [place] [id number] Apr, [facility] [address] [id number] [address] [place] [phone] Apr, Type 1 diabetes mellitus wit h hyperglycemia E10.65 [facility] [address] [id number] [address] [place] [phone] March, [facility] [address] [facility] [place] [id number] [address] [place] [id number] March, [facility] [address] [id number] [address] [place] [phone] Jan, [facility] [address] [id number] [address] [place] [id number] Jan, [facility] [address] [id number] [address] [place] [id number] Jan, Type 1 diabetes mellitus wit h diabetic polyneuropathy E10.42 [facility] [address] [id number] [address] [place] [id number] Jan, Type 1 diabetes mellitus wit h hyperglycemia E10.65 ; Excessive cerumen in both ear canals H61.23 and Controlled diabetes mellitus type 1 without complications E10.9 [facility] [address] [id number] [address] [place] [id number] 16 Dec, 2016 [facility] [address] [id number] [address] [place] [phone] Dec, [facility] [address] [id number] [address] [place] [id number] Dec, [facility] [address] [id number] [address] [place] [id number] Dec, [facility] [address] [id number] [address] [place] [id number] Nov, [facility] [address] [id number] [address] [place] [id number] Nov, [facility] [address] [id number] [address] [place] [id number] Oct, Type 1 diabetes mellitus wit h hyperglycemia E10.65 [facility] [address] [id number] [address] [place] [id number] Sep, [facility] [address] [id number] [address] [place] [id number] Sep, [facility] [address] [id number] [address] [place] [phone] Sep, Controlled diabetes mellitus type 1 without complications E10.9 [facility] [address] [id number] [address] [place] [phone] Sep, [facility] [address] [id number] [address] [place] [address] [id number] Aug, Dental caries K02.9 [facility] [address] [id number] [address] [place] [id number] Aug, Type 1 diabetes mellitus wit h diabetic polyneuropathy E10.42 [facility] [address] [id number] [address] [place] [phone] Aug, [facility] [address] [id number] [address] [place] [id number] Aug, [facility] [address] [id number] [address] [place] [phone] Aug, [facility] [address] [id number] [address] [place] [id number] Jul, Type 1 diabetes mellitus wit h hyperglycemia E10.65 [facility] [address] [id number] [address] [place] [phone] Jul, Type 1 diabetes mellitus wit h hyperglycemia E10.65 ; Tooth pain K08.8 and Encounter for immunization Z23 [facility] [address] [id number] [address] [place] [address] [id number] 08 Jul, 2016 Dental examination Z01.20 [facility] [address] [id number] [address] [place] [id number] 08 Jul, 2016 [facility] [address] [id number] [address] [place] [phone] 07 Jul, 2016 [facility] [address] [id number] [address] [place] [phone] Jul, [facility] [address] [id number] [address] [place] [phone] Jun, [facility] [address] [id number] [address] [place] [phone] May, [facility] [address] [id number] [address] [place] [id number] Apr, [facility] [address] [id number] [address] [place] [address], [place] [address] Apr, [facility] [address] [id number] [address] [place] [address], [place] [phone] Apr, [facility] [address] [id number] [address] [place] [address], [place] [phone] March, [facility] [address] [id number] [address] [place] [address], [place] [id number] March, [facility] [address] [id number] [address] [place] [address], [place] [phone] Feb, [facility] [address] [id number] [address] [place] [address], [place] [phone] Feb, [facility] [address] [id number] [address] [place] [address], [place] [address] Feb, Type 1 diabetes mellitus wit h hyperglycemia E10.65 [facility] [address] [id number] [address] [place] [address], [place] [address] Jan, [facility] [address] [id number] [address] [place] [address] [place] [address] Jan, [facility] [address] [id number] [address] [place] [address] [place] [address] Jan, [facility] [address] [id number] [address] [place] [address], [place] [address] Jan, [facility] [address] [id number] [address] [place] [address], [place] [address] Dec, [facility] [address] [id number] [address] [place] [address], [place] [address] Nov, [facility] [address] [id number] [address] [place] [address], [place] [address] Nov, [facility] [address] [id number] [address] [place] [address], [place] [address] Oct, [facility] [address] [facility] [facility] [place] [id number] [address] [place] [id number] Oct, Type 1 diabetes mellitus wit h 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 ; Type 1 diabetes mellitus with hyperglycemia E10.65 ; Gastroparesis K31.84 and Esophageal stricture K22.2 [facility] [address] [facility] [facility] [place] [id number] [address] [place] [id number] Oct, [facility] [address] [id number] [address] [place] [id number] Sep, [facility] [address] [facility] [place] [id number] [address] [place] [id number] Sep, Type 1 diabetes mellitus wit h other diabetic neurological complication E10.49 [facility] [address] [facility] [place] [place] [id number] [address] [place] [id number] 22 Aug, 2015 Encounter for immunization Z 23 [facility] [address] [facility] [place] [id number] [address] [place] [id number] 19 Aug, 2015 [facility] [address] [facility] [place] [id number] [address] [place] [phone] Aug, [facility] [address] [facility] [place] [id number] [address] [place] [phone] Jul, [facility] [address] [facility] [place] [id number] [address] [place] [phone] Jul, [facility] [address] [facility] [place] [id number] [address] [place] [id number] Jun, [facility] [address] [facility] [place] [id number] [address] [place] [phone] Jun, [facility] [address] [facility] [place] [id number] [address] [place] [phone] Jun, [facility] [address] [facility] [place] [id number] [address] [place] [phone] May, [facility] [address] [facility] [place] [id number] [address] [place] [id number] May, [facility] [address] [id number] [address] [place] [phone] May, Diabetes type 1, controlled 250.[facility] [address] [id number] [address] [place] [phone] May, [facility] [address] [id number] [address] [place] [phone] May, [facility] [address] [id number] [address] [place] [id number] Apr, Dental examination V72.2 [facility] [address] [id number] [address] [place] [phone] Apr, [facility] [address] [id number] [address] [place] [phone] Apr, [facility] [address] [id number] [address] [place] [phone] Apr, [facility] [address] [id number] [address] [place] [phone] Apr, [facility] [address] [id number] [address] [place] [id number] Apr, [facility] [address] [id number] [address] [place] [id number] Apr, Dental examination V72.2 [facility] [address] [id number] [address] [place] [phone] Apr, [facility] [address] [id number] [address] [place] [phone] Apr, [facility] [address] [id number] [address] [place] [phone] March, Diabetes mellitus type 1 250 .01 [facility] [address] [id number] [address] [place] [phone] March, [facility] [address] [id number] [address] [place] [id number] 14 Feb, 2015 [facility] [address] [id number] [address] [place] [address], [place] [address] Feb, [facility] [address] [id number] [address] [place] [address], [place] [address] Jan, [facility] [address] [id number] [address] [place] [address], [place] [address] Jan, [facility] [address] [id number] [address] [place] [address], [place] [address] Jan, [facility] [address] [id number] [address] [place] [address], [place] [address] Jan, [facility] [address] [id number] [address] [place] [address], [place] [address] Dec, [facility] [address] [id number] [address] [place] [address], [place] [address] Dec, [facility] [address] [id number] [address] [place] [address], [place] [address] Nov, [facility] [address] [id number] [address] [place] [address], [place] [address] Nov, [facility] [address] [id number] [address] [place] [address], [place] [address] Nov, [facility] [address] [id number] [address] [place] [address], [place] [address] Nov, [facility] [address] [id number] [address] [place] [address], [place] [address] Nov, [facility] [address] [id number] [address] [place] [address], [place] [address] Nov, [facility] [address] [id number] [address] [place] [address], [place] [address] Nov, [facility] [address] [id number] [address] [place] [address], [place] [address] Oct, [facility] [address] [id number] [address] [place] [address], [place] [address] Oct, [facility] [address] [id number] [address] [place] [address], [place] [address] Sep, [facility] [address] [id number] [address] [place] [address], [place] [address] Aug, [facility] [address] [id number] [address] [place] [address], [place] [address] Aug, [facility] [address] [id number] [address] [place] [address], [place] [address] Aug, [facility] [address] [id number] [address] [place] [address], [place] [address] Aug, [facility] [address] [id number] [address] [place] [address], [place] [address] Aug, [facility] [address] [id number] [address] [place] [address], [place] [address] Aug, [facility] [address] [id number] [address] [place] [address], [place] [address] Aug, [facility] [address] [id number] [address] [place] [address], [place] [address] Aug, [facility] [address] [id number] [address] [place] [address], [place] [address] Aug, [facility] [address] [id number] [address] [place] [address], [place] [address] Aug, [facility] [address] [id number] [address] [place] [address], [place] [address] Aug, [facility] [address] [id number] [address] [place] [address], [place] [address] Aug, [facility] [address] [id number] [address] [place] [address], [place] [address] Aug, [facility] [address] [id number] [address] [place] [address], [place] [address] Aug, [facility] [address] [id number] [facility] [address] Jul, [facility] [address] [id number] [address] [place] [address], [place] [address] Jul, [facility] [address] [id number] [address] [place] [address], [place] [address] Jul, [facility] [address] [id number] [address] [place] [address], [place] [address] Jul, [facility] [address] [id number] [address] [place] [address], [place] [address] Jun, [facility] [address] [id number] [address] [place] [address], [place] [address] Jun, [facility] [address] [id number] [address] [place] [address], [place] [address] Jun, [facility] [address] [id number] [address] [place] [address], [place] [address] Jun, [facility] [address] [id number] [address] [place] [address], [place] [address] May, [facility] [address] [id number] [address] [place] [address], [place] [address] May, [facility] [address] [id number] [address] [place] [address], [place] [address] May, [facility] [address] [id number] [address] [place] [address], [place] [address] May, [facility] [address] [id number] [address] [place] [address], [place] [address] May, [facility] [address] [id number] [address] [place] [address], [place] [address] May, [facility] [address] [id number] [address] [place] [address], [place] [address] May, [facility] [address] [id number] [facility] [address] May, 2013 [facility] [address] [id number] [facility] [address] May, 2013 [facility] [address] [id number] [facility] [address] May, 2013 [facility] [address] [id number] [address] [place] [address], [place] [address] May, 2013 [facility] [address] [id number] [address] [place] [address], [place] [address] May, [facility] [address] [id number] [address] [place] [address], [place] [address] May, [facility] [address] [id number] [address] [place] [address], [place] [address] Apr, [facility] [address] [id number] [address] [place] [address], [place] [address] Apr, [facility] [address] [id number] [address] [place] [address], [place] [address] Apr, [facility] [address] [id number] [address] [place] [address], [place] [address] Apr, [facility] [address] [id number] [address] [place] [address], [place] [address] Apr, [facility] [address] [id number] [address] [place] [address], [place] [address] Apr, [facility] [address] [id number] [address] [place] [address], [place] [address] Apr, [facility] [address] [id number] [address] [place] [address], [place] [address] Apr, [facility] [address] [id number] [address] [place] [address], [place] [address] Apr, [facility] [address] [id number] [address] [place] [address], [place] [address] Apr, [facility] [address] [id number] [address] [place] [address], [place] [address] Apr, [facility] [address] [id number] [address] [place] [address], [place] [address] Apr, [facility] [address] [id number] [address] [place] [address], [place] [address] Apr, [facility] [address] [id number] [address] [place] [address], [place] [address] Apr, [facility] [address] [id number] [address] [place] [address], [place] [address] March, [facility] [address] [id number] [address] [place] [address], [place] [address] March, [facility] [address] [id number] [address] [place] [address], [place] [address] March, [facility] [address] [id number] [address] [place] [address], [place] [address] March, [facility] [address] [id number] [address] [place] [address], [place] [address] March, [facility] [address] [id number] [address] [place] [address], [place] [address] March, [facility] [address] [id number] [address] [place] [address], [place] [address] March, [facility] [address] [id number] [address] [place] [address], [place] [address] March, [facility] [address] [id number] [address] [place] [address], [place] [address] March, [facility] [address] [id number] [address] [place] [address], [place] [address] March, [facility] [address] [id number] [address] [place] [address], [place] [address] Feb, [facility] [address] [id number] [address] [place] [address], [place] [address] Feb, [facility] [address] [id number] [facility] [address] Feb, [facility] [address] [id number] [address] [place] [address], [place] [address] Feb, [facility] [address] [id number] [address] [place] [address], [place] [address] Feb, [facility] [address] [id number] [address] [place] [address], [place] [address] Feb, [facility] [address] [id number] [address] [place] [address], [place] [address] Feb, [facility] [address] [id number] [address] [place] [address], [place] [address] Feb, [facility] [address] [id number] [address] [place] [address], [place] [address] Jan, [facility] [address] [id number] [address] [place] [address], [place] [address] Jan, [facility] [address] [id number] [address] [place] [address], [place] [address] Jan, [facility] [address] [id number] [address] [place] [address], [place] [address] Jan, [facility] [address] [id number] [address] [place] [address], [place] [address] Jan, [facility] [address] [id number] [address] [place] [address], [place] [address] Jan, [facility] [address] [id number] [address] [place] [address], [place] [address] Jan, [facility] [address] [id number] [address] [place] [address], [place] [address] Jan, [facility] [address] [id number] [address] [place] [address], [place] [address] Jan, [facility] [address] [id number] [address] [place] [address], [place] [address] Jan, [facility] [address] [id number] [address] [place] [address], [place] [address] Dec, [facility] [address] [id number] [address] [place] [address], [place] [address] Dec, [facility] [address] [id number] [address] [place] [address], [place] [address] Nov, [facility] [address] [id number] [address] [place] [address], [place] [address] Nov, [facility] [address] [id number] [address] [place] [address], [place] [address] Nov, [facility] [address] [id number] [address] [place] [address], [place] [address] Nov, [facility] [address] [id number] [address] [place] [address], [place] [address] Nov, [facility] [address] [id number] [address] [place] [address], [place] [address] Nov, [facility] [address] [id number] [address] [place] [address], [place] [address] Nov, [facility] [address] [id number] [address] [place] [address], [place] [address] Nov, [facility] [address] [id number] [address] [place] [address], [place] [address] Oct, [facility] [address] [id number] [address] [place] [address], [place] [address] Oct, [facility] [address] [id number] [address] [place] [address], [place] [address] Oct, [facility] [address] [id number] [address] [place] [address], [place] [address] Oct, [facility] [address] [id number] [address] [place] [address] [address] Oct, [facility] [address] [id number] [address] [place] [address], [place] [address] Oct, [facility] [address] [id number] [address] [place] [address], [place] [address] Sep, [facility] [address] [id number] [address] [place] [address], [place] [address] Sep, [facility] [address] [id number] [address] [place] [address], [place] [address] Sep, [facility] [address] [id number] [address] [place] [address], [place] [address] Sep, [facility] [address] [id number] [address] [place] [address], [place] [address] Sep, [facility] [address] [id number] [address] [place] [address], [place] [address] Aug, [facility] [address] [id number] [address] [place] [address] Aug, [facility] [address] [id number] [address] [place] [address] Aug, [facility] [address] [id number] [address] [place] [address] Aug, [facility] [address] [id number] [address] [place] [address] Aug, [facility] [address] [id number] [address] [place] [address] Aug, [facility] [address] [id number] [address] [place] [address] Jul, [facility] [address] [id number] [address] [place] [address] Jul, [facility] [address] [id number] [address] [place] [address] Jul, [facility] [address] [id number] [address] [place] [address], [place] [address] Jun, [facility] [address] [id number] [address] [place] [address], [place] [address] Jun, [facility] [address] [id number] [address] [place] [address], [place] [address] May, [facility] [address] [id number] [address] [place] [address], [place] [address] May, [facility] [address] [id number] [address] [place] [address], [place] [address] Apr, [facility] [address] [id number] [address] [place] [address], [place] [address] Apr, [facility] [address] [id number] [address] [place] [address], [place] [address] Apr, [facility] [address] [id number] [address] [place] [address], [place] [address] March, [facility] [address] [id number] [address] [place] [address], [place] [address] Feb, [facility] [address] [id number] [address] [place] [address], [place] [address] Feb, [facility] [address] [id number] [address] [place] [address], [place] [address] Jan, [facility] [address] [id number] [address] [place] [address], [place] [address] Jan, [facility] [address] [id number] [address] [place] [address], [place] [address] Jan, [facility] [address] [id number] [address] [place] [address], [place] [address] Jan, [facility] [address] [id number] [address] [place] [address], [place] [address] Jan, [facility] [address] [id number] [address] [place] [address], [place] [address] Dec, [facility] [address] [id number] [address] [place] [address], [place] [address] Dec, [facility] [address] [id number] [address] [place] [address], [place] [address] Dec, [facility] [address] [id number] [address] [place] [address], [place] [address] Dec, [facility] [address] [id number] [address] [place] [address], [place] [address] Dec, [facility] [address] [id number] [address] [place] [address], [place] [address] Dec, [facility] [place] [id number] Nov, [facility] [address] [id number] [address] [place] [address], [place] [address] Nov, [facility] [address] [id number] [address] [place] [address], [place] [address] Nov, [facility] [address] [id number] [address] [place] [address], [place] [address] Nov, [facility] [address] [id number] [address] [place] [address], [place] [address] Nov, [facility] [address] [id number] [address] [place] [address], [place] [address] Oct, [facility] [address] [id number] [address] [place] [address], [place] [address] Oct, [facility] [address] [id number] [address] [place] [address], [place] [address] Oct, [facility] [address] [id number] [address] [place] [address], [place] [address] Oct, [facility] [address] [id number] [address] [place] [address], [place] [address] Oct, [facility] [address] [id number] [address] [place] [address], [place] [address] Oct, [facility] [address] [id number] [address] [place] [address], [place] [address] Oct, [facility] [address] [id number] [address] [place] [address], [place] [address] Oct, [facility] [address] [id number] [address] [place] [address], [place] [address] Sep, [facility] [address] [id number] [address] [place] [address], [place] [address] Sep, [facility] [address] [id number] [address] [place] [address], [place] [address] Sep, [facility] [address] [id number] [address] [place] [address], [place] [address] Sep, [facility] [address] [id number] [address] [place] [address], [place] [address] Sep, [facility] [address] [id number] [address] [place] [address], [place] [address] Sep, [facility] [address] [id number] [address] [place] [address], [place] [address] Sep, [facility] [address] [id number] [address] [place] [address], [place] [address] Sep, [facility] [address] [id number] [address] [place] [address], [place] [address] Sep, [facility] [address] [id number] [address] [place] [address], [place] [address] Sep, [facility] [address] [id number] [address] [place] [address], [place] [address] Sep, [facility] [address] [id number] [address] [place] [address], [place] [address] Sep, [facility] [address] [id number] [address] [place] [address], [place] [address] Sep, [facility] [address] [id number] [address] [place] [id number] Sep, [facility] [address] [facility] [place] [id number] [address] [place] [id number] Sep, [facility] [address] [facility] [place] [id number] [address] [place] [address] Sep, IMMUNIZATIONS No Known Immunizations SOCIAL HISTORY [...]
--- OUTSIDE RECORDS SUMMARY | 2020-04-17 21:16 | XMS REPORT ---
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 Active 77172363 Problem Other chronic pain G89.29 Active 8 1403826 Problem Hypertension, essential I10 Active 89087319 Problem Vitamin D deficiency E55.9 Active 54010441 Problem Mood disorder F39 Active 654381 05 Problem Type 1 diabetes mellitus with hyperglycemia E10.65 Active [id number] Problem Type 1 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 Active 91170708 Problem Chronic fatigue R53.82 Active 8422 9001 Problem Controlled diabetes mellitus type 1 without complications E10.9 Active 09052904 ALLERGIES No Information ENCOUNTERS Encounter Location Date Diagnosis [place] [address] [place] [id number] [address] [place] [id number] 02 Feb, 2020 Type 1 diabetes mellitus wit h other diabetic neurological complication E10.49 [place] [id number] [place] [address] Jan, Type 1 diabetes mellitus wit h other diabetic neurological complication E10.49 [place] [id number] [place] [id number] [address] [place] [id number] Jan, Type 1 diabetes mellitus wit h other diabetic neurological complication E10.49 [place] [address] [place] [id number] [address] [place] [id number] 03 Dec, 2019 Type 1 diabetes mellitus wit h other diabetic neurological complication E10.49 [place] [address] [place] [id number] [address] [place] [id number] Nov, Type 1 diabetes mellitus wit h diabetic polyneuropathy E10.42 ; Mood disorder F39 ; Vitamin D deficiency E55.9 and Renal insufficiency N28.9 [facility] [address] [facility] [id number] [address] [place] [id number] Nov, Type 1 diabetes mellitus wit h other diabetic neurological complication E10.49 [facility] [address] [facility] [id number] [address] [place] [id number] Oct, Other chronic pain G89.29 [facility] [address] [facility] [id number] [address] [place] [id number] Oct, Type 1 diabetes mellitus wit h other diabetic neurological complication E10.49 [facility] [address] [place] [id number] [address] [place] [id number] Oct, [facility] [address] [place] [id number] [address] [place] [phone] Aug, Type 1 diabetes mellitus wit h other diabetic neurological complication E10.49 [facility] [address] [place] [id number] [address] [place] [id number] 14 Aug, 2019 Encounter for immunization Z 23 [facility] [address] [place] [id number] [address] [place] [id number] 08 Aug, 2019 Vitamin D deficiency E55.9 [facility] [address] [facility] [id number] [address] [place] [id number] Jul, Type 1 diabetes mellitus wit h other diabetic neurological complication E10.49 [facility] [address] [facility] [id number] [address] [place] [id number] Jul, Type 1 diabetes mellitus wit h hyperglycemia E10.65 [facility] [address] [facility] [id number] [address] [place] [id number] Jun, Type 1 diabetes mellitus wit h other diabetic neurological complication E10.49 [facility] [address] [facility] [id number] [address] [place] [id number] May, [facility] [address] [place] [id number] [address] [place] [phone] May, [facility] [address] [id number] [address] [place] [id number] May, Other chronic pain G89.29 [facility] [address] [id number] [address] [place] [id number] May, [facility] [address] [id number] [address] [place] [id number] May, Type 1 diabetes mellitus wit h other diabetic neurological complication E10.49 [facility] [address] [id number] [address] [place] [id number] Apr, [facility] [address] [id number] [address] [place] [id number] Apr, Type 1 diabetes mellitus wit h other diabetic neurological complication E10.49 [facility] [address] [id number] [address] [place] [id number] Apr, Encounter for Medicare annua l wellness exam Z00.00 [facility] [address] [id number] [address] [place] [id number] March, Encounter for Medicare annua l wellness exam Z00.00 and Type 1 diabetes mellitus with other diabetic neurological complication E10.49 [facility] [address] [id number] [address] [place] [address] Feb, Type 1 diabetes mellitus wit h other diabetic neurological complication E10.49 [facility] [address] [id number] [address] [place] [id number] Feb, Encounter for Medicare annua l wellness exam Z00.00 ; Mood disorder F39 ; Type 1 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 ; Hypertension, essential I10 and Chronic fatigue R53.82 [facility] [address] [id number] [address] [place] [id number] Jan, Type 1 diabetes mellitus wit h other diabetic neurological complication E10.49 [facility] [address] [id number] [address] [place] [id number] Jan, [facility] [address] [id number] [address] [place] [id number] Jan, Other chronic pain G89.29 [facility] [address] [id number] [address] [place] [id number] 11 Dec, 2018 [facility] [address] [facility] [id number] [address] [place] [id number] 08 Dec, 2018 Type 1 diabetes mellitus wit h other diabetic neurological complication E10.49 [facility] [address] [id number] [address] [place] [id number] 05 Dec, 2018 Other chronic pain G89.29 [facility] [address] [id number] [address] [place] [phone] Nov, [facility] [address] [id number] [address] [place] [id number] Nov, Caries K02.9 [facility] [address] [facility] [id number] [address] [place] [id number] Nov, Type 1 diabetes mellitus wit h other diabetic neurological complication E10.49 [facility] [address] [facility] [id number] [address] [place] [id number] Nov, Controlled diabetes mellitus type 1 without complications E10.9 ; Other chronic pain G89.29 and Pain in left knee M25.562 [facility] [address] [id number] [address] [place] [id number] Oct, Dental examination Z01.20 [facility] [address] [id number] [address] [place] [id number] 14 Oct, 2018 Cutaneous abscess of unspeci fied foot L02.619 and Cellulitis of unspecified part of limb L03.119 [facility] [address] [id number] [address] [place] [id number] 11 Oct, 2018 [facility] [address] [facility] [id number] [address] [place] [id number] Oct, Type 1 diabetes mellitus wit h other diabetic neurological complication E10.49 [facility] [address] [id number] [address] [place] [id number] 06 Oct, 2018 Dental examination Z01.20 an d Caries K02.9 [facility] [address] [facility] [id number] [address] [place] [id number] 04 Oct, 2018 Cutaneous abscess of left fo ot L02.612 and Cellulitis of left lower limb L03.116 [facility] [address] [facility] [id number] [address] [place] [id number] 04 Oct, 2018 Dental examination Z01.20 an d Pain, dental K08.89 [facility] [address] [facility] [id number] [address] [place] [address] Sep, Left foot pain M79.672 and L eft anterior knee pain M25.562 [facility] [address] [facility] [id number] [address] [place] [id number] Sep, Type 1 diabetes mellitus wit h other diabetic neurological complication E10.49 [facility] [address] [facility] [id number] [address] [place] [id number] Sep, [facility] [address] [facility] [id number] [address] [place] [id number] 11 Aug, 2018 Type 1 diabetes mellitus wit h other diabetic neurological complication E10.49 [facility] [address] [facility] [id number] [address] [place] [id number] 10 Aug, 2018 Encounter for immunization Z 23 [facility] [address] [facility] [id number] [address] [place] [id number] 05 Aug, 2018 Type 1 diabetes mellitus wit h hyperglycemia E10.65 [facility] [address] [facility] [id number] [address] [place] [id number] Jul, Type 1 diabetes mellitus wit h hyperglycemia E10.65 [facility] [address] [facility] [id number] [address] [place] [id number] Jul, [facility] [address] [facility] [id number] [address] [place] [id number] Jul, [facility] [address] [id number] [address] [place] [id number] Jul, Type 1 diabetes mellitus wit h other diabetic neurological complication E10.49 [facility] [address] [id number] [address] [place] [id number] Jul, Type 1 diabetes mellitus wit h other diabetic neurological complication E10.49 and Mood disorder F39 [facility] [address] [id number] [address] [place] [id number] Jun, [facility] [address] [facility] [id number] [address] [place] [id number] Jun, Type 1 diabetes mellitus wit h other diabetic neurological complication E10.49 and Chronic fatigue R53.82 [facility] [address] [id number] [address] [place] [id number] May, Type 1 diabetes mellitus wit h other diabetic neurological complication E10.49 [facility] [address] [id number] [address] [place] [id number] May, [facility] [address] [id number] [address] [place] [id number] May, [facility] [address] [facility] [id number] [address] [place] [id number] Apr, [facility] [address] [facility] [id number] [address] [place] [id number] Apr, Type 1 diabetes mellitus wit h other diabetic neurological complication E10.49 [facility] [address] [id number] [address] [place] [id number] March, [facility] [address] [id number] [address] [place] [phone] Feb, [facility] [address] [facility] [id number] [address] [place] [id number] Feb, Type 1 diabetes mellitus wit h other diabetic neurological complication E10.49 ; Tobacco abuse Z72.0 and Tobacco abuse counseling Z71.6 [facility] [address] [facility] [id number] [address] [place] [id number] Jan, Type 1 diabetes mellitus wit h hyperglycemia E10.65 [facility] [address] [facility] [id number] [address] [place] [phone] Jan, [facility] [address] [facility] [id number] [address] [place] [id number] Dec, Tobacco abuse Z72.0 [facility] [address] [facility] [id number] [address] [place] [id number] Dec, Type 1 diabetes mellitus wit h hyperglycemia E10.65 [facility] [address] [facility] [id number] [address] Dec, Type 1 diabetes mellitus wit h hyperglycemia E10.65 ; Tobacco abuse Z72.0 and Tobacco abuse counseling Z71.6 [facility] [address] [facility] [id number] [address] [place] [address] Nov, Type 1 diabetes mellitus wit h hyperglycemia E10.65 [facility] [address] [facility] [id number] [address] [place] [id number] Oct, Type 1 diabetes mellitus wit h hyperglycemia E10.65 [facility] [address] [facility] [id number] [address] [place] [id number] Oct, Type 1 diabetes mellitus wit h hyperglycemia E10.65 [facility] [id number] [place] [address] Sep, Type 1 diabetes mellitus wit h hyperglycemia E10.65 [facility] [address] [facility] [id number] [address] [place] [address] Aug, Type 1 diabetes mellitus wit h hyperglycemia E10.65 [facility] [address] [facility] [id number] [address] [place] [address] Aug, [facility] [address] [facility] [id number] [address] [place] [id number] Aug, Type 1 diabetes mellitus wit h hyperglycemia E10.65 [facility] [address] [id number] [address] [place] [id number] 12 Aug, 2017 Encounter for immunization Z 23 [facility] [address] [id number] [address] [place] [id number] Aug, Type 1 diabetes mellitus wit h hyperglycemia E10.65 [facility] [address] [facility] [id number] [address] [place] [address] Jul, Type 1 diabetes mellitus wit h hyperglycemia E10.65 [facility] [address] [id number] [address] [place] [address] Jul, Type 1 diabetes mellitus wit h hyperglycemia E10.65 [facility] [address] [id number] [address] [place] [address] May, Type 1 diabetes mellitus wit h hyperglycemia E10.65 [facility] [address] [id number] [address] [place] [address] May, [facility] [address] [id number] [address] [place] [id number] Apr, [facility] [address] [id number] [address] [place] [id number] Apr, Type 1 diabetes mellitus wit h hyperglycemia E10.65 [facility] [address] [id number] [address] [place] [id number] March, [facility] [address] [id number] [address] [place] [phone] March, [facility] [address] [id number] [address] [place] [id number] Jan, [facility] [address] [id number] [address] [place] [id number] Jan, [facility] [address] [facility] [id number] [address] [place] [address] Jan, Type 1 diabetes mellitus wit h diabetic polyneuropathy E10.42 [facility] [address] [id number] [address] [place] [id number] Jan, Type 1 diabetes mellitus wit h hyperglycemia E10.65 ; Excessive cerumen in both ear canals H61.23 and Controlled diabetes mellitus type 1 without complications E10.9 [facility] [address] [id number] [address] [place] [id number] 16 Dec, 2016 [facility] [address] [id number] [address] [place] [id number] Dec, [facility] [address] [id number] [address] [place] [phone] Dec, [facility] [address] [id number] [address] [place] [phone] Dec, [facility] [address] [facility] [id number] [address] [place] [phone] Nov, [facility] [address] [id number] [address] [place] [id number] Nov, [facility] [address] [id number] [address] [place] [address] Oct, Type 1 diabetes mellitus wit h hyperglycemia E10.65 [facility] [address] [id number] [address] [place] [id number] Sep, [facility] [address] [facility] [id number] [address] [place] [id number] Sep, [facility] [address] [facility] [id number] [address] [place] [id number] Sep, Controlled diabetes mellitus type 1 without complications E10.9 [facility] [address] [id number] [address] [place] [id number] Sep, [facility] [address] [id number] [address] [place] [address] [id number] Aug, Dental caries K02.9 [facility] [address] [facility] [id number] [address] [place] [id number] Aug, Type 1 diabetes mellitus wit h diabetic polyneuropathy E10.42 [facility] [address] [id number] [address] [place] [id number] Aug, [facility] [address] [id number] [address] [place] [phone] Aug, [facility] [address] [id number] [address] [place] [phone] Aug, [facility] [address] [id number] [address] [place] [address] Jul, Type 1 diabetes mellitus wit h hyperglycemia E10.65 [facility] [address] [id number] [address] [place] [address] Jul, Type 1 diabetes mellitus wit h hyperglycemia E10.65 ; Tooth pain K08.8 and Encounter for immunization Z23 [facility] [address] [id number] [address] [place] [address] [id number] 08 Jul, 2016 Dental examination Z01.20 [facility] [address] [id number] [address] [place] [id number] Jul, [facility] [address] [id number] [address] [place] [id number] Jul, [facility] [address] [id number] [address] [place] [id number] Jul, [facility] [address] [id number] [address] [place] [phone] Jun, [facility] [address] [id number] [address] [place] [id number] May, [facility] [address] [id number] [address] [place] [id number] Apr, [facility] [address] [id number] [address] [place] [phone] Apr, [facility] [address] [id number] [address] [place] [id number] Apr, [facility] [address] [id number] [address] [place] [id number] March, [facility] [address] [id number] [address] [place] [phone] March, [facility] [address] [facility] [id number] [address] [place] [id number] Feb, [facility] [address] [facility] [id number] [address] [place] [id number] Feb, [facility] [address] [id number] [address] [place] [id number] Feb, Type 1 diabetes mellitus wit h hyperglycemia E10.65 [facility] [address] [facility] [id number] [address] [place] [id number] Jan, [facility] [address] [facility] [id number] [address] [place] [id number] Jan, [facility] [address] [facility] [id number] [address] [place] [id number] Jan, [facility] [address] [facility] [id number] [address] [place] [phone] Jan, [facility] [address] [facility] [id number] [address] [place] [id number] Dec, [facility] [address] [facility] [id number] [address] [place] [id number] Nov, [facility] [address] [facility] [id number] [address] [place] [id number] Nov, [facility] [address] [facility] [id number] [address] [place] [id number] Oct, [facility] [address] [facility] [id number] [address] [place] [id number] Oct, Type 1 diabetes mellitus wit h 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 ; Type 1 diabetes mellitus with hyperglycemia E10.65 ; Gastroparesis K31.84 and Esophageal stricture K22.2 [facility] [address] [id number] [address] [place] [id number] Oct, [facility] [address] [id number] [address] [place] [id number] Sep, [facility] [address] [id number] [address] [place] [id number] Sep, Type 1 diabetes mellitus wit h other diabetic neurological complication E10.49 [facility] [address] [id number] [address] [place] [id number] Aug, Encounter for immunization Z 23 [facility] [address] [id number] [address] [place] [id number] Aug, [facility] [address] [id number] [address] [place] [id number] Aug, [facility] [address] [id number] [address] [place] [id number] Jul, [facility] [address] [id number] [address] [place] [id number] Jul, [facility] [address] [id number] [address] [place] [id number] Jun, [facility] [address] [id number] [address] [place] [address] [id number] Jun, [facility] [address] [id number] [address] [place] [id number] Jun, [facility] [address] [id number] [address] [place] [address] May, [facility] [address] [id number] [address] [place] [address] May, [facility] [address] [id number] [address] [place] [address] May, Diabetes type 1, controlled 250.01 [facility] [address] [id number] [address] [place] [id number] May, [facility] [address] [id number] [address] [place] [id number] May, [facility] [address] [id number] [address] [place] [id number] Apr, Dental examination V72.2 [facility] [address] [id number] [address] [place] [address] Apr, [facility] [address] [id number] [address] [place] [id number] Apr, [facility] [address] [id number] [address] [place] [id number] Apr, [facility] [address] [id number] [address] [place] [id number] Apr, [facility] [address] [id number] [address] [place] [id number] Apr, [facility] [address] [id number] [address] [place] [id number] Apr, Dental examination V72.2 [facility] [address] [id number] [address] [place] [id number] Apr, [facility] [place] [address] [id number] [address] [place] [id number] Apr, [facility] [place] [address] [id number] [address] [place] [address] March, Diabetes mellitus type 1 250 .01 [facility] [place] [address] [id number] [address] [place] [id number] March, [facility] [place] [address] [id number] [address] [place] [id number] Feb, [facility] [place] [address] [id number] [address] [place] [address] Feb, [facility] [place] [address] [id number] [address] [place] [id number] Jan, [facility] [place] [address] [id number] [address] [place] [address], [place] [address] Jan, [facility] [address] [id number] [address] [place] [address], [place] [address] Jan, [facility] [address] [id number] [address] [place] [address], [place] [address] Jan, [facility] [address] [id number] [address] [place] [address], [place] [address] Dec, [facility] [address] [id number] [address] [place] [address], [place] [address] Dec, [facility] [address] [id number] [address] [place] [address], [place] [address] Nov, [facility] [address] [id number] [address] [place] [address], [place] [address] Nov, [facility] [address] [id number] [address] [place] [address], [place] [address] Nov, [facility] [address] [id number] [address] [place] [address], [place] [address] Nov, [facility] [address] [id number] [address] [place] [address], [place] [address] Nov, [facility] [address] [id number] [address] [place] [address], [place] [address] Nov, [facility] [address] [id number] [address] [place] [address], [place] [address] Nov, [facility] [address] [id number] [address] [place] [address], [place] [address] Oct, [facility] [address] [id number] [address] [place] [address], [place] [address] Oct, [facility] [address] [id number] [address] [place] [address], [place] [address] Sep, [facility] [address] [id number] [address] [place] [address], [place] [address] Aug, [facility] [address] [id number] [address] [place] [address], [place] [address] Aug, [facility] [address] [id number] [address] [place] [address], [place] [address] Aug, [facility] [address] [id number] [address] [place] [address], [place] [address] Aug, [facility] [address] [id number] [address] [place] [address], [place] [address] Aug, [facility] [address] [id number] [address] [place] [address], [place] [address] Aug, [facility] [address] [id number] [address] [place] [address], [place] [address] Aug, [facility] [address] [id number] [address] [place] [address], [place] [address] Aug, [facility] [address] [id number] [address] [place] [address], [place] [address] Aug, [facility] [address] [id number] [address] [place] [address], [place] [address] Aug, [facility] [address] [id number] [address] [place] [address] Aug, [facility] [address] [id number] [address] [place] [address] Aug, [facility] [address] [id number] [address] [place] [id number] Aug, [facility] [address] [id number] [address] [place] [address] Aug, [facility] [address] [id number] [address] [place] [id number] Jul, [facility] [address] [id number] [address] [place] [address] Jul, [facility] [address] [id number] [address] [place] [address] Jul, [facility] [address] [id number] [address] [place] [address], [place] [address] Jul, [facility] [address] [id number] [address] [place] [address], [place] [address] Jun, [facility] [address] [id number] [address] [place] [address], [place] [address] Jun, [facility] [address] [id number] [address] [place] [address], [place] [address] Jun, [facility] [address] [id number] [address] [place] [address], [place] [address] Jun, [facility] [address] [id number] [address] [place] [address], [place] [address] May, [facility] [address] [id number] [address] [place] [address], [place] [address] May, [facility] [address] [id number] [address] [place] [address], [place] [address] May, [facility] [address] [id number] [address] [place] [address], [place] [address] May, [facility] [address] [id number] [address] [place] [address], [place] [address] May, [facility] [address] [id number] [address] [place] [address], [place] [address] May, [facility] [address] [id number] [address] [place] [address], [place] [address] May, [facility] [address] [id number] [address] [place] [address], [place] [address] May, [facility] [address] [id number] [address] [place] [address], [place] [address] May, [facility] [address] [id number] [address] [place] [address], [place] [address] May, [facility] [address] [id number] [facility] [place] [address] May, [facility] [address] [id number] [facility] [place] [address] May, [facility] [address] [id number] [facility] [place] [address] May, [facility] [address] [id number] [facility] [place] [address] Apr, [facility] [address] [id number] [facility] [place] [address] Apr, [facility] [address] [id number] [address] [place] [address], [place] [address] Apr, [facility] [address] [id number] [address] [place] [address], [place] [address] Apr, [facility] [address] [id number] [address] [place] [address], [place] [address] Apr, [facility] [address] [id number] [address] [place] [address], [place] [address] Apr, [facility] [address] [id number] [address] [place] [address], [place] [address] Apr, [facility] [address] [id number] [address] [place] [address], [place] [address] Apr, [facility] [address] [id number] [address] [place] [address], [place] [address] Apr, [facility] [address] [id number] [address] [place] [address], [place] [address] Apr, [facility] [address] [id number] [address] [place] [address], [place] [address] Apr, [facility] [address] [id number] [address] [place] [address], [place] [address] Apr, [facility] [address] [id number] [address] [place] [address], [place] [address] Apr, [facility] [address] [id number] [address] [place] [address], [place] [address] Apr, [facility] [address] [id number] [address] [place] [address], [place] [address] March, [facility] [address] [id number] [address] [place] [address], [place] [address] March, [facility] [address] [id number] [address] [place] [address], [place] [address] March, [facility] [address] [id number] [address] [place] [address], [place] [address] March, [facility] [address] [id number] [address] [place] [address], [place] [address] March, [facility] [address] [id number] [address] [place] [address], [place] [address] March, [facility] [address] [id number] [address] [place] [address], [place] [address] March, [facility] [address] [id number] [address] [place] [address], [place] [address] March, [facility] [address] [id number] [address] [place] [address], [place] [address] March, [facility] [address] [id number] [address] [place] [address], [place] [address] March, [facility] [address] [id number] [address] [place] [address], [place] [address] Feb, [facility] [address] [id number] [address] [place] [address], [place] [address] Feb, [facility] [address] [id number] [address] [place] [address], [place] [address] Feb, [facility] [address] [id number] [address] [place] [address], [place] [address] Feb, [facility] [address] [id number] [facility] [place] [address] 10 Feb, 2014 [facility] [address] [id number] [address] [place] [address], [place] [address] 10 Feb, 2014 [facility] [address] [id number] [facility] [place] [address] Feb, [facility] [address] [id number] [address] [place] [address], [place] [address] Feb, [facility] [address] [id number] [address] [place] [address], [place] [address] Jan, [facility] [address] [id number] [address] [place] [address], [place] [address] Jan, [facility] [address] [id number] [address] [place] [address], [place] [address] Jan, [facility] [address] [id number] [address] [place] [address], [place] [address] Jan, [facility] [address] [id number] [address] [place] [address], [place] [address] Jan, [facility] [address] [id number] [address] [place] [address], [place] [address] Jan, [facility] [address] [id number] [address] [place] [address], [place] [address] Jan, [facility] [address] [id number] [address] [place] [address], [place] [address] Jan, [facility] [address] [id number] [address] [place] [address], [place] [address] Jan, [facility] [address] [id number] [address] [place] [address], [place] [address] Jan, [facility] [address] [id number] [address] [place] [address], [place] [address] Dec, [facility] [address] [id number] [address] [place] [address], [place] [address] Dec, [facility] [address] [id number] [address] [place] [address], [place] [address] Nov, [facility] [address] [id number] [address] [place] [address], [place] [address] Nov, [facility] [address] [id number] [address] [place] [address], [place] [address] Nov, [facility] [address] [id number] [address] [place] [address], [place] [address] Nov, [facility] [address] [id number] [address] [place] [address], [place] [address] Nov, [facility] [address] [id number] [address] [place] [address], [place] [address] Nov, [facility] [address] [id number] [address] [place] [address], [place] [address] Nov, [facility] [address] [id number] [address] [place] [address], [place] [address] Nov, [facility] [address] [id number] [address] [place] [address], [place] [address] Oct, [facility] [address] [id number] [address] [place] [address], [place] [address] Oct, [facility] [address] [id number] [address] [place] [address], [place] [address] Oct, [facility] [address] [id number] [address] [place] [address], [place] [address] Oct, [facility] [address] [id number] [address] [place] [address], [place] [address] Oct, [facility] [address] [id number] [address] [place] [address], [place] [address] Oct, [facility] [address] [id number] [address] [place] [address], [place] [address] Sep, [facility] [address] [id number] [address] [place] [address] Sep, [facility] [address] [id number] [address] [place] [address], [place] [address] Sep, [facility] [address] [id number] [address] [place] [address] Sep, [facility] [address] [id number] [address] [place] [address], [place] [address] Sep, [facility] [address] [id number] [address] [place] [address], [place] [address] Aug, [facility] [address] [id number] [address] [place] [address], [place] [address] Aug, [facility] [address] [id number] [address] [place] [address], [place] [address] Aug, [facility] [address] [id number] [address] [place] [address], [place] [address] Aug, [facility] [address] [id number] [address] [place] [address], [place] [address] Aug, [facility] [address] [id number] [address] [place] [address], [place] [address] Aug, [facility] [address] [id number] [address] [place] [address], [place] [address] Jul, [facility] [address] [id number] [address] [place] [address], [place] [address] Jul, [facility] [address] [id number] [address] [place] [address], [place] [address] Jul, [facility] [address] [id number] [address] [place] [address], [place] [address] Jun, [facility] [address] [id number] [address] [place] [address], [place] [address] Jun, [facility] [address] [id number] [address] [place] [address], [place] [address] May, [facility] [address] [id number] [address] [place] [address], [place] [address] 10 May, 2013 [facility] [address] [id number] [address] [place] [address], [place] [address] 11 Apr, 2013 [facility] [address] [id number] [address] [place] [address], [place] [address] 07 Apr, 2013 [facility] [address] [id number] [address] [place] [address], [place] [address] Apr, [facility] [address] [id number] [address] [place] [address], [place] [address] March, [facility] [address] [id number] [address] [place] [address], [place] [address] Feb, [facility] [address] [id number] [address] [place] [address], [place] [address] Feb, [facility] [address] [id number] [address] [place] [address], [place] [address] Jan, [facility] [address] [id number] [address] [place] [address], [place] [address] Jan, [facility] [address] [id number] [address] [place] [address], [place] [address] Jan, [facility] [address] [id number] [address] [place] [address], [place] [address] Jan, [facility] [address] [id number] [address] [place] [address], [place] [address] Jan, [facility] [address] [id number] [address] [place] [address], [place] [address] 28 Dec, 2012 [facility] [address] [id number] [address] [place] [address], [place] [address] 27 Dec, 2012 [facility] [address] [id number] [address] [place] [address], [place] [address] 18 Dec, 2012 [facility] [address] [id number] [address] [place] [address], [place] [address] Dec, [facility] [address] [id number] [address] [place] [address], [place] [address] Dec, [facility] [address] [id number] [address] [place] [address], [place] [address] Dec, [facility] [address] [place] [id number] Nov, [facility] [address] [id number] [address] [place] [address], [place] [address] Nov, [facility] [address] [id number] [address] [place] [address], [place] [address] Nov, [facility] [address] [id number] [address] [place] [address], [place] [address] Nov, [facility] [address] [id number] [address] [place] [address], [place] [address] Nov, [facility] [address] [id number] [address] [place] [address], [place] [address] Oct, [facility] [address] [id number] [address] [place] [address], [place] [address] Oct, [facility] [address] [id number] [address] [place] [address], [place] [address] Oct, [facility] [address] [id number] [address] [place] [address], [place] [address] Oct, [facility] [address] [id number] [address] [place] [address], [place] [address] Oct, [facility] [address] [id number] [address] [place] [address], [place] [address] Oct, [facility] [address] [id number] [address] [place] [address], [place] [address] Oct, [facility] [address] [id number] [address] [place] [address], [place] [address] Oct, [facility] [address] [id number] [address] [place] [address], [place] [address] Sep, [facility] [address] [id number] [address] [place] [address], [place] [address] Sep, [facility] [address] [id number] [address] [place] [address], [place] [address] Sep, [facility] [address] [id number] [address] [place] [address], [place] [address] Sep, [facility] [address] [id number] [address] [place] [address], [place] [address] Sep, [facility] [address] [id number] [address] [place] [address], [place] [address] Sep, [facility] [address] [id number] [address] [place] [address], [place] [address] Sep, [facility] [address] [id number] [address] [place] [address], [place] [address] Sep, [facility] [address] [id number] [address] [place] [address], [place] [address] Sep, [facility] [address] [id number] [address] [place] [address], [place] [address] Sep, [facility] [address] [id number] [address] [place] [address], [place] [address] Sep, [facility] [address] [id number] [address] [place] [address], [place] [address] Sep, [facility] [address] [id number] [address] [place] [id number] Sep, [facility] [address] [id number] [address] [place] [id number] Sep, [facility] [address] [id number] [address] [place] [id number] Sep, [facility] [address] [id number] [address] [place] [id number] Sep, IMMUNIZATIONS No Known Immunizations SOCIAL HISTORY Never Assessed REASON FOR VISIT PLAN OF CARE VITAL SIGNS MEDICATIONS Unknown Medications RESULTS No Results PROCEDURES No Known procedures INSTRUCTIONS MEDICATIONS ADMINISTERED No Known Medications MEDICAL (GENERAL) HISTORY Type Description Date Medical History hypertension Medical History type I diabetes Medical History chronic renal insufficiency Surgical History gastric pacemaker 2008 Hospitalization History nausea 2011
--- OUTSIDE RECORDS SUMMARY | 2020-04-17 21:16 | XMS REPORT ---
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 Active 51839212 Problem Other chronic pain G89.29 Active 8 9750689 Problem Hypertension, essential I10 Active 70998761 Problem Vitamin D deficiency E55.9 Active 56100138 Problem Mood disorder F39 Active 723270 05 Problem Type 1 diabetes mellitus with hyperglycemia E10.65 Active [id number] Problem Type 1 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 Active 16254536 Problem Chronic fatigue R53.82 Active 8422 9001 Problem Controlled diabetes mellitus type 1 without complications E10.9 Active 53915145 ALLERGIES No Information ENCOUNTERS Encounter Location Date Diagnosis [place] [address] [facility] [id number] [address] [place] [id number] 04 Mar, 2020 Type 1 diabetes mellitus wit h other diabetic neurological complication E10.49 [facility] [address] [facility] [id number] [address] [place] [id number] March, Type 1 diabetes mellitus wit h other diabetic neurological complication E10.49 [facility] [address] [facility] [id number] [address] [place] [phone] Feb, Type 1 diabetes mellitus wit h other diabetic neurological complication E10.49 [place] [address] [facility] [id number] [address] [place] [address] Jan, Type 1 diabetes mellitus wit h other diabetic neurological complication E10.49 [place] [address] [facility] [id number] [address] [place] [id number] 03 Jan, 2020 Type 1 diabetes mellitus wit h other diabetic neurological complication E10.49 [facility] [address] [facility] [id number] [address] [place] [id number] 03 Dec, 2019 Type 1 diabetes mellitus wit h other diabetic neurological complication E10.49 [facility] [address] [facility] [id number] [address] [place] [phone] 13 Nov, 2019 Type 1 diabetes mellitus wit h diabetic polyneuropathy E10.42 ; Mood disorder F39 ; Vitamin D deficiency E55.9 and Renal insufficiency N28.9 [facility] [address] [facility] [id number] [address] [place] [id number] 03 Nov, 2019 Type 1 diabetes mellitus wit h other diabetic neurological complication E10.49 [place] [address] [address] [place] [id number] [address] [place] [id number] 12 Oct, 2019 Other chronic pain G89.29 [facility] [address] [facility] [id number] [address] [place] [id number] 02 Oct, 2019 Type 1 diabetes mellitus wit h other diabetic neurological complication E10.49 [facility] [address] [facility] [id number] [address] [place] [id number] 02 Oct, 2019 [facility] [address] [facility] [id number] [address] [place] [phone] 29 Aug, 2019 Type 1 diabetes mellitus wit h other diabetic neurological complication E10.49 [facility] [address] [facility] [id number] [address] [place] [phone] 14 Aug, 2019 Encounter for immunization Z 23 [facility] [address] [facility] [id number] [address] [place] [phone] 08 Aug, 2019 Vitamin D deficiency E55.9 [facility] [address] [facility] [id number] [address] [place] [phone] 26 Jul, 2019 Type 1 diabetes mellitus wit h other diabetic neurological complication E10.49 [facility] [address] [place] [id number] [address] [place] [address] Jul, Type 1 diabetes mellitus wit h hyperglycemia E10.65 [facility] [address] [id number] [address] [place] [id number] Jun, Type 1 diabetes mellitus wit h other diabetic neurological complication E10.49 [facility] [address] [id number] [address] [place] [phone] May, [facility] [address] [id number] [address] [place] [address] May, [facility] [address] [id number] [address] [place] [phone] May, Other chronic pain G89.29 [facility] [address] [id number] [address] [place] [phone] May, [facility] [address] [id number] [address] [place] [address] May, Type 1 diabetes mellitus wit h other diabetic neurological complication E10.49 [facility] [address] [id number] [address] [place] [address] Apr, [facility] [address] [id number] [address] [place] [id number] Apr, Type 1 diabetes mellitus wit h other diabetic neurological complication E10.49 [facility] [address] [id number] [address] [place] [address] Apr, Encounter for Medicare annua l wellness exam Z00.00 [facility] [address] [id number] [address] [place] [address] March, Encounter for Medicare annua l wellness exam Z00.00 and Type 1 diabetes mellitus with other diabetic neurological complication E10.49 [facility] [address] [id number] [address] [place] [phone] Feb, Type 1 diabetes mellitus wit h other diabetic neurological complication E10.49 [facility] [address] [id number] [address] [place] [id number] Feb, Encounter for Medicare annua l wellness exam Z00.00 ; Mood disorder F39 ; Type 1 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 ; Hypertension, essential I10 and Chronic fatigue R53.82 [facility] [address] [id number] [address] [place] [id number] 13 Jan, 2019 Type 1 diabetes mellitus wit h other diabetic neurological complication E10.49 [facility] [address] [id number] [address] [place] [id number] 11 Jan, 2019 [facility] [address] [id number] [address] [place] [phone] 07 Jan, 2019 Other chronic pain G89.29 [facility] [address] [id number] [address] [place] [id number] 11 Dec, 2018 [facility] [address] [id number] [address] [place] [id number] 08 Dec, 2018 Type 1 diabetes mellitus wit h other diabetic neurological complication E10.49 [facility] [address] [id number] [address] [place] [id number] 05 Dec, 2018 Other chronic pain G89.29 [facility] [address] [id number] [address] [place] [id number] Nov, [facility] [address] [id number] [address] [place] [address] [id number] Nov, Caries K02.9 [facility] [address] [id number] [address] [place] [phone] 15 Nov, 2018 Type 1 diabetes mellitus wit h other diabetic neurological complication E10.49 [facility] [address] [id number] [address] [place] [id number] 07 Nov, 2018 Controlled diabetes mellitus type 1 without complications E10.9 ; Other chronic pain G89.29 and Pain in left knee M25.562 [facility] [address] [id number] [address] [place] [id number] 18 Oct, 2018 Dental examination Z01.20 [facility] [address] [id number] [address] [place] [id number] 14 Oct, 2018 Cutaneous abscess of unspeci fied foot L02.619 and Cellulitis of unspecified part of limb L03.119 [facility] [address] [facility] [id number] [address] [place] [id number] 11 Oct, 2018 [facility] [address] [place] [id number] [address] [place] [id number] 10 Oct, 2018 Type 1 diabetes mellitus wit h other diabetic neurological complication E10.49 [facility] [address] [facility] [id number] [address] [place] [address] [id number] 06 Oct, 2018 Dental examination Z01.20 an d Caries K02.9 [place] [address] [address] [place] [id number] [address] [place] [id number] 04 Oct, 2018 Cutaneous abscess of left fo ot L02.612 and Cellulitis of left lower limb L03.116 [place] [id number] [place] [address] 04 Oct, 2018 Dental examination Z01.20 an d Pain, dental K08.89 [facility] [address] [facility] [id number] [address] [place] [address] Sep, Left foot pain M79.672 and L eft anterior knee pain M25.562 [facility] [address] [place] [id number] [address] [place] [address] Sep, Type 1 diabetes mellitus wit h other diabetic neurological complication E10.49 [facility] [address] [facility] [id number] [address] [place] [id number] Sep, [facility] [address] [facility] [id number] [address] [place] [id number] Aug, Type 1 diabetes mellitus wit h other diabetic neurological complication E10.49 [facility] [address] [facility] [id number] [address] [place] [id number] 10 Aug, 2018 Encounter for immunization Z 23 [facility] [address] [place] [id number] [address] [place] [address] Aug, Type 1 diabetes mellitus wit h hyperglycemia E10.65 [facility] [address] [id number] [address] [place] [id number] Jul, Type 1 diabetes mellitus wit h hyperglycemia E10.65 [facility] [address] [id number] [address] [place] [phone] Jul, [facility] [address] [id number] [address] [place] [phone] 18 Jul, 2018 [facility] [address] [id number] [address] [place] [id number] Jul, Type 1 diabetes mellitus wit h other diabetic neurological complication E10.49 [facility] [address] [id number] [address] [place] [address] Jul, Type 1 diabetes mellitus wit h other diabetic neurological complication E10.49 and Mood disorder F39 [facility] [address] [id number] [address] [place] [phone] Jun, [facility] [address] [id number] [address] [place] [id number] Jun, Type 1 diabetes mellitus wit h other diabetic neurological complication E10.49 and Chronic fatigue R53.82 [facility] [address] [id number] [address] [place] [address] May, Type 1 diabetes mellitus wit h other diabetic neurological complication E10.49 [facility] [address] [id number] [address] [place] [phone] May, [facility] [address] [id number] [address] [place] [phone] May, [facility] [address] [facility] [id number] [address] [place] [phone] Apr, [facility] [address] [facility] [id number] [address] [place] [address] Apr, Type 1 diabetes mellitus wit h other diabetic neurological complication E10.49 [facility] [address] [id number] [address] [place] [phone] March, [facility] [address] [facility] [id number] [address] [place] [phone] Feb, [facility] [address] [facility] [id number] [address] [place] [address] Feb, Type 1 diabetes mellitus wit h other diabetic neurological complication E10.49 ; Tobacco abuse Z72.0 and Tobacco abuse counseling Z71.6 [facility] [address] [facility] [id number] [address] [place] [address] Jan, Type 1 diabetes mellitus wit h hyperglycemia E10.65 [facility] [address] [facility] [id number] [address] [place] [address] Jan, [facility] [address] [facility] [id number] [address] [place] [address] Dec, Tobacco abuse Z72.0 [facility] [address] [facility] [id number] [address] [place] [address] Dec, Type 1 diabetes mellitus wit h hyperglycemia E10.65 [facility] [address] [facility] [id number] [address] [place] [address] Dec, Type 1 diabetes mellitus wit h hyperglycemia E10.65 ; Tobacco abuse Z72.0 and Tobacco abuse counseling Z71.6 [facility] [address] [facility] [id number] [address] [place] [id number] Nov, Type 1 diabetes mellitus wit h hyperglycemia E10.65 [facility] [address] [facility] [id number] [address] [place] [address] Oct, Type 1 diabetes mellitus wit h hyperglycemia E10.65 [facility] [address] [place] [id number] [address] [place] [id number] Oct, Type 1 diabetes mellitus wit h hyperglycemia E10.65 [facility] [address] [facility] [id number] [address] [place] [address] Sep, Type 1 diabetes mellitus wit h hyperglycemia E10.65 [facility] [address] [id number] [address] [place] [address] Aug, Type 1 diabetes mellitus wit h hyperglycemia E10.65 [facility] [address] [id number] [address] [place] [address] Aug, [facility] [address] [facility] [id number] [address] [place] [id number] Aug, Type 1 diabetes mellitus wit h hyperglycemia E10.65 [facility] [address] [facility] [id number] [address] [place] [address] Aug, Encounter for immunization Z 23 [facility] [address] [id number] [address] [place] [id number] Aug, Type 1 diabetes mellitus wit h hyperglycemia E10.65 [facility] [address] [facility] [id number] [address] [place] [id number] Jul, Type 1 diabetes mellitus wit h hyperglycemia E10.65 [facility] [address] [id number] [address] [place] [address] Jul, Type 1 diabetes mellitus wit h hyperglycemia E10.65 [facility] [address] [id number] [address] [place] [id number] May, Type 1 diabetes mellitus wit h hyperglycemia E10.65 [facility] [address] [id number] [address] [place] [id number] May, [facility] [address] [id number] [address] [place] [id number] Apr, [facility] [address] [id number] [address] [place] [address] Apr, Type 1 diabetes mellitus wit h hyperglycemia E10.65 [facility] [address] [id number] [address] [place] [id number] March, [facility] [address] [facility] [id number] [address] [place] [address] March, [facility] [address] [id number] [address] [place] [id number] Jan, [facility] [address] [id number] [address] [place] [id number] Jan, [facility] [address] [facility] [id number] [address] [place] [address] Jan, Type 1 diabetes mellitus wit h diabetic polyneuropathy E10.42 [facility] [address] [id number] [address] [place] [address] Jan, Type 1 diabetes mellitus wit h hyperglycemia E10.65 ; Excessive cerumen in both ear canals H61.23 and Controlled diabetes mellitus type 1 without complications E10.9 [facility] [address] [id number] [address] [place] [address] Dec, [facility] [address] [facility] [id number] [address] [place] [phone] Dec, [facility] [address] [id number] [address] [place] [address] Dec, [facility] [address] [id number] [address] [place] [address] Dec, [facility] [address] [facility] [id number] [address] [place] [address] Nov, [facility] [address] [id number] [address] [place] [phone] Nov, [facility] [address] [id number] [address] [place] [address] Oct, Type 1 diabetes mellitus wit h hyperglycemia E10.65 [facility] [address] [id number] [address] [place] [address] Sep, [facility] [address] [facility] [id number] [address] [place] [address] Sep, [facility] [address] [id number] [address] [place] [address] Sep, Controlled diabetes mellitus type 1 without complications E10.9 [facility] [address] [id number] [address] [place] [address] Sep, [facility] [address] [id number] [address] [place] [id number] Aug, Dental caries K02.9 [facility] [address] [id number] [address] [place] [address] Aug, Type 1 diabetes mellitus wit h diabetic polyneuropathy E10.42 [facility] [address] [id number] [address] [place] [address] Aug, [facility] [address] [id number] [address] [place] [address] Aug, [facility] [address] [id number] [address] [place] [address] Aug, [facility] [address] [id number] [address] [place] [address] Jul, Type 1 diabetes mellitus wit h hyperglycemia E10.65 [facility] [address] [id number] [address] [place] [address] Jul, Type 1 diabetes mellitus wit h hyperglycemia E10.65 ; Tooth pain K08.8 and Encounter for immunization Z23 [facility] [address] [id number] [address] [place] [id number] 08 Jul, 2016 Dental examination Z01.20 [facility] [address] [id number] [address] [place] [id number] 08 Jul, 2016 [facility] [address] [id number] [address] [place] [id number] 07 Jul, 2016 [facility] [address] [id number] [address] [place] [phone] Jul, [facility] [address] [id number] [address] [place] [phone] Jun, [facility] [address] [id number] [address] [place] [phone] May, [facility] [address] [id number] [address] [place] [address], [place] [address] Apr, [facility] [address] [id number] [address] [place] [address], [place] [address] Apr, [facility] [address] [id number] [address] [place] [address], [place] [address] Apr, [facility] [address] [id number] [address] [place] [address], [place] [address] March, [facility] [address] [id number] [address] [place] [address], [place] [address] March, [facility] [address] [id number] [address] [place] [address], [place] [address] Feb, [facility] [address] [id number] [address] [place] [address], [place] [address] Feb, [facility] [address] [id number] [address] [place] [address], [place] [address] Feb, Type 1 diabetes mellitus wit h hyperglycemia E10.65 [facility] [address] [id number] [address] [place] [address], [place] [address] Jan, [facility] [address] [id number] [address] [place] [address], [place] [address] Jan, [facility] [address] [id number] [address] [place] [address], [place] [address] Jan, [facility] [address] [id number] [address] [place] [address], [place] [address] Jan, [facility] [address] [id number] [address] [place] [address], [place] [address] Dec, [facility] [address] [id number] [address] [place] [address], [place] [address] Nov, [facility] [address] [id number] [address] [place] [address], [place] [address] Nov, [facility] [address] [facility] [id number] [address] [place] [id number] Oct, [facility] [address] [facility] [id number] [address] [place] [id number] Oct, Type 1 diabetes mellitus wit h 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 ; Type 1 diabetes mellitus with hyperglycemia E10.65 ; Gastroparesis K31.84 and Esophageal stricture K22.2 [facility] [address] [facility] [id number] [address] [place] [id number] Oct, [facility] [address] [facility] [id number] [address] [place] [id number] Sep, [facility] [address] [place] [id number] [place] [phone] Sep, Type 1 diabetes mellitus wit h other diabetic neurological complication E10.49 [facility] [address] [place] [id number] [address] [place] [id number] 22 Aug, 2015 Encounter for immunization Z 23 [facility] [address] [facility] [id number] [address] [place] [id number] 19 Aug, 2015 [facility] [address] [facility] [id number] [address] [place] [phone] Aug, [facility] [address] [facility] [id number] [address] [place] [id number] Jul[facility] [address] [facility] [id number] [address] [place] [id number] Jul, [facility] [address] [facility] [id number] [address] [place] [id number] Jun, [facility] [address] [facility] [id number] [address] [place] [id number] Jun, [facility] [address] [facility] [id number] [address] [place] [address] Jun, [facility] [address] [facility] [id number] [address] [place] [address] May, [facility] [address] [id number] [address] [place] [address] May, [facility] [address] [id number] [address] [place] [address] May, Diabetes type 1, controlled 250.01 [facility] [address] [id number] [address] [place] [id number] May, [facility] [address] [id number] [address] [place] [address] May, [facility] [address] [id number] [address] [place] [id number] Apr, Dental examination V72.2 [facility] [address] [id number] [address] [place] [id number] Apr, [facility] [address] [id number] [address] [place] [id number] Apr, [facility] [address] [id number] [address] [place] [id number] Apr, [facility] [address] [id number] [address] [place] [address] Apr, [facility] [address] [id number] [address] [place] [address] Apr, [facility] [address] [id number] [address] [place] [id number] Apr, Dental examination V72.2 [facility] [address] [id number] [address] [place] [id number] Apr, [facility] [address] [id number] [address] [place] [id number] Apr, [facility] [address] [id number] [address] [place] [address] March, Diabetes mellitus type 1 250 .01 [facility] [address] [id number] [address] [place] [address] March, [facility] [address] [id number] [address] [place] [address], [place] [address] Feb, [facility] [address] [id number] [address] [place] [address], [place] [address] Feb, [facility] [address] [id number] [address] [place] [address], [place] [address] Jan, [facility] [address] [id number] [address] [place] [address], [place] [address] Jan, [facility] [address] [id number] [address] [place] [address], [place] [address] Jan, [facility] [address] [id number] [address] [place] [address], [place] [address] Jan, [facility] [address] [id number] [address] [place] [address], [place] [address] Dec, [facility] [address] [id number] [address] [place] [address], [place] [address] Dec, [facility] [address] [id number] [address] [place] [address], [place] [address] Nov, [facility] [address] [id number] [address] [place] [address], [place] [address] Nov, [facility] [address] [id number] [address] [place] [address], [place] [address] Nov, [facility] [address] [id number] [address] [place] [address], [place] [address] Nov, [facility] [address] [id number] [address] [place] [address], [place] [address] Nov, [facility] [address] [id number] [address] [place] [address], [place] [address] Nov, [facility] [address] [id number] [address] [place] [address], [place] [address] Nov, [facility] [address] [id number] [address] [place] [address], [place] [address] Oct, [facility] [address] [id number] [address] [place] [address], [place] [address] Oct, [facility] [address] [id number] [address] [place] [address], [place] [address] Sep, [facility] [address] [id number] [address] [place] [address], [place] [id number] Aug, [facility] [address] [id number] [address] [place] [address], [place] [address] Aug, [facility] [address] [id number] [address] [place] [address], [place] [address] Aug, [facility] [address] [id number] [address] [place] [address], [place] [address] Aug, [facility] [address] [id number] [address] [place] [address], [place] [address] Aug, [facility] [address] [id number] [address] [place] [address], [place] [address] Aug, [facility] [address] [id number] [address] [place] [address], [place] [address] Aug, [facility] [address] [id number] [address] [place] [address], [place] [address] Aug, [facility] [address] [id number] [address] [place] [address], [place] [address] Aug, [facility] [address] [id number] [address] [place] [address], [place] [address] Aug, [facility] [address] [id number] [address] [place] [address], [place] [address] Aug, [facility] [address] [id number] [address] [place] [address], [place] [address] Aug, [facility] [address] [id number] [address] [place] [address], [place] [address] Aug, [facility] [address] [id number] [address] [place] [address], [place] [address] Aug, [facility] [address] [id number] [address] [place] [address], [place] [address] Jul, [facility] [address] [id number] [address] [place] [address], [place] [address] Jul, [facility] [address] [id number] [address] [place] [address], [place] [address] Jul, [facility] [address] [id number] [address] [place] [address], [place] [address] Jul, [facility] [address] [id number] [address] [place] [address], [place] [address] Jun, [facility] [address] [id number] [address] [place] [address], [place] [address] Jun, [facility] [address] [id number] [address] [place] [address], [place] [address] Jun, [facility] [address] [id number] [address] [place] [address], [place] [address] Jun, [facility] [address] [id number] [address] [place] [address], [place] [address] May, [facility] [address] [id number] [address] [place] [address], [place] [address] May, [facility] [address] [id number] [address] [place] [address], [place] [address] May, [facility] [address] [id number] [address] [place] [address], [place] [address] May, [facility] [address] [id number] [address] [place] [address], [place] [address] May, [facility] [address] [id number] [address] [place] [address], [place] [address] May, [facility] [address] [id number] [address] [place] [address], [place] [address] May, [facility] [address] [id number] [facility] [place] [address] May, 2013 [facility] [address] [id number] [address] [place] [address], [place] [address] May, 2013 [facility] [address] [id number] [address] [place] [address], [place] [address] May, 2013 [facility] [address] [id number] [address] [place] [address], [place] [address] May, [facility] [address] [id number] [address] [place] [address], [place] [address] May, [facility] [address] [id number] [address] [place] [address], [place] [address] May, [facility] [address] [id number] [address] [place] [address], [place] [address] Apr, [facility] [address] [id number] [address] [place] [address], [place] [address] Apr, [facility] [address] [id number] [address] [place] [address], [place] [address] Apr, [facility] [address] [id number] [address] [place] [address], [place] [address] Apr, [facility] [address] [id number] [address] [place] [address], [place] [address] Apr, [facility] [address] [id number] [address] [place] [address], [place] [address] Apr, [facility] [address] [id number] [address] [place] [address], [place] [address] Apr, [facility] [address] [id number] [address] [place] [address], [place] [address] Apr, [facility] [address] [id number] [address] [place] [address], [place] [address] Apr, [facility] [address] [id number] [facility] [place] [address] Apr, [facility] [address] [id number] [address] [place] [address], [place] [address] Apr, [facility] [address] [id number] [address] [place] [address], [place] [address] Apr, [facility] [address] [id number] [address] [place] [address], [place] [address] Apr, [facility] [address] [id number] [address] [place] [address], [place] [address] Apr, [facility] [address] [id number] [address] [place] [address], [place] [address] March, [facility] [address] [id number] [address] [place] [address], [place] [address] March, [facility] [address] [id number] [address] [place] [address], [place] [address] March, [facility] [address] [id number] [address] [place] [address], [place] [address] March, [facility] [address] [id number] [address] [place] [address], [place] [address] March, [facility] [address] [id number] [address] [place] [address], [place] [address] March, [facility] [address] [id number] [address] [place] [address], [place] [address] March, [facility] [address] [id number] [address] [place] [address], [place] [address] March, [facility] [address] [id number] [address] [place] [address], [place] [address] March, [facility] [address] [id number] [address] [place] [address], [place] [address] March, [facility] [address] [id number] [address] [place] [address], [place] [address] Feb, [facility] [address] [id number] [facility] [place] [address] Feb, [facility] [address] [id number] [facility] [place] [address] Feb, [facility] [address] [id number] [facility] [place] [address] Feb, [facility] [address] [id number] [address] [place] [address], [place] [address] Feb, [facility] [address] [id number] [address] [place] [address], [place] [address] Feb, [facility] [address] [id number] [address] [place] [address], [place] [address] Feb, [facility] [address] [id number] [address] [place] [address], [place] [address] Feb, [facility] [address] [id number] [address] [place] [address], [place] [address] Jan, [facility] [address] [id number] [address] [place] [address], [place] [address] Jan, [facility] [address] [id number] [address] [place] [address], [place] [address] Jan, [facility] [address] [id number] [address] [place] [address], [place] [address] Jan, [facility] [address] [id number] [address] [place] [address], [place] [address] Jan, [facility] [address] [id number] [address] [place] [address], [place] [address] Jan, [facility] [address] [id number] [address] [place] [address], [place] [address] Jan, [facility] [address] [id number] [address] [place] [address], [place] [address] Jan, [facility] [address] [id number] [address] [place] [address], [place] [address] Jan, [facility] [address] [id number] [address] [place] [address], [place] [address] Jan, [facility] [address] [id number] [address] [place] [address], [place] [address] Dec, [facility] [address] [id number] [address] [place] [address], [place] [address] Dec, [facility] [address] [id number] [address] [place] [address], [place] [address] Nov, [facility] [address] [id number] [address] [place] [address], [place] [address] Nov, [facility] [address] [id number] [address] [place] [address], [place] [address] Nov, [facility] [address] [id number] [address] [place] [address], [place] [address] Nov, [facility] [address] [id number] [address] [place] [address], [place] [address] Nov, [facility] [address] [id number] [address] [place] [address], [place] [address] Nov, [facility] [address] [id number] [address] [place] [address], [place] [address] Nov, [facility] [address] [id number] [address] [place] [address], [place] [address] Nov, [facility] [address] [id number] [address] [place] [address], [place] [address] Oct, [facility] [address] [id number] [address] [place] [address], [place] [address] Oct, [facility] [address] [id number] [address] [place] [address], [place] [address] Oct, [facility] [address] [id number] [address] [place] [address], [place] [address] Oct, [facility] [address] [id number] [address] [place] [address], [place] [address] Oct, [facility] [address] [id number] [address] [place] [address], [place] [address] Oct, [facility] [address] [id number] [address] [place] [address], [place] [address] Sep, [facility] [address] [id number] [address] [place] [address], [place] [address] Sep, [facility] [address] [id number] [address] [place] [address], [place] [address] Sep, [facility] [address] [id number] [address] [place] [address], [place] [address] Sep, [facility] [address] [id number] [address] [place] [address], [place] [address] Sep, [facility] [address] [id number] [address] [place] [address] Aug, [facility] [address] [id number] [address] [place] [address], [place] [address] Aug, [facility] [address] [id number] [address] [place] [address] Aug, [facility] [address] [id number] [address] [place] [address] Aug, [facility] [address] [id number] [address] [place] [address] Aug, [facility] [address] [id number] [address] [place] [address] Aug, [facility] [address] [id number] [address] [place] [address] Jul, [facility] [address] [id number] [address] [place] [id number] Jul, [facility] [address] [id number] [address] [place] [id number] Jul, [facility] [address] [id number] [address] [place] [address], [place] [address] Jun, [facility] [address] [id number] [address] [place] [address], [place] [address] Jun, [facility] [address] [id number] [address] [place] [address], [place] [address] May, [facility] [address] [id number] [address] [place] [address], [place] [address] May, [facility] [address] [id number] [address] [place] [address], [place] [address] Apr, [facility] [address] [id number] [address] [place] [address], [place] [address] Apr, [facility] [address] [id number] [address] [place] [address], [place] [address] Apr, [facility] [address] [id number] [address] [place] [address], [place] [address] March, [facility] [address] [id number] [address] [place] [address], [place] [address] Feb, [facility] [address] [id number] [address] [place] [address], [place] [address] Feb, [facility] [address] [id number] [address] [place] [address], [place] [address] Jan, [facility] [address] [id number] [address] [place] [address], [place] [address] Jan, [facility] [address] [id number] [address] [place] [address], [place] [address] Jan, [facility] [address] [id number] [address] [place] [address], [place] [id number] 08 Jan, 2013 [facility] [address] [id number] [address] [place] [address], [place] [address] Jan, [facility] [address] [id number] [facility] [place] [address] Dec, [facility] [address] [id number] [address] [place] [address], [place] [address] Dec, [facility] [address] [id number] [address] [place] [address], [place] [address] Dec, [facility] [address] [id number] [address] [place] [address], [place] [address] Dec, [facility] [address] [id number] [address] [place] [address], [place] [address] Dec, [facility] [address] [id number] [address] [place] [address], [place] [address] Dec, [facility] [address] [place] [id number] Nov, [facility] [address] [id number] [address] [place] [address], [place] [address] Nov, [facility] [address] [id number] [address] [place] [address], [place] [address] Nov, [facility] [address] [id number] [address] [place] [address], [place] [address] Nov, [facility] [address] [id number] [address] [place] [address], [place] [address] Nov, [facility] [address] [id number] [address] [place] [address], [place] [address] Oct, [facility] [address] [id number] [address] [place] [address], [place] [address] Oct, [facility] [address] [id number] [address] [place] [address], [place] [address] Oct, [facility] [address] [id number] [address] [place] [address], [place] [address] Oct, [facility] [address] [id number] [address] [place] [address], [place] [address] Oct, [facility] [address] [id number] [address] [place] [address], [place] [address] Oct, [facility] [address] [id number] [address] [place] [address], [place] [address] Oct, [facility] [address] [id number] [address] [place] [address], [place] [address] Oct, [facility] [address] [id number] [address] [place] [address], [place] [address] Sep, [facility] [address] [id number] [address] [place] [address], [place] [address] Sep, [facility] [address] [id number] [address] [place] [address], [place] [address] Sep, [facility] [address] [id number] [address] [place] [address], [place] [address] Sep, [facility] [address] [id number] [address] [place] [address], [place] [address] Sep, [facility] [address] [id number] [address] [place] [address], [place] [address] Sep, [facility] [address] [id number] [address] [place] [address], [place] [address] Sep, [facility] [address] [id number] [address] [place] [address], [place] [address] Sep, [facility] [address] [id number] [address] [place] [address], [place] [address] Sep, [facility] [address] [id number] [address] [place] [address], [place] [address] Sep, [facility] [address] [id number] [address] [place] [address], [place] [address] Sep, [facility] [address] [id number] [address] [place] [address], [place] [address] Sep, [facility] [address] [id number] [address] [place] [address] Sep, [facility] [address] [facility] [id number] [address] [place] [address] Sep, [facility] [address] [facility] [id number] [address] [place] [id number] Sep, [facility] [address] [facility] [id number] [address] [place] [id number] Sep, IMMUNIZATIONS No Known Immunizations SOCIAL HISTORY Never Assessed REASON FOR VISIT PLAN OF CARE VITAL SIGNS Height 68 in 2013-11-01 Weight 165 lbs 2013-11-01 Temperature 97.1 degrees Fahrenheit 2013-11-01 Heart Rate 80 bpm 2013-11-01 Respiratory Rate 20 2013-11-01 Blood pressure systolic 118 mmHg 2013-11-01 Blood pressure diastolic 62 mmHg 2013-11-01 MEDICATIONS Unknown Medications RESULTS No Results PROCEDURES No Known procedures INSTRUCTIONS MEDICATIONS ADMINISTERED No Known Medications MEDICAL (GENERAL) HISTORY Type Description Date Medical History hypertension Medical History type I diabetes Medical History chronic renal insufficiency Surgical History gastric pacemaker 2008 Hospitalization History nausea 2011
--- OUTSIDE RECORDS SUMMARY | 2020-04-17 21:16 | XMS REPORT ---
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 Active 04413771 Problem Other chronic pain G89.29 Active 8 4039748 Problem Hypertension, essential I10 Active 83978220 Problem Vitamin D deficiency E55.9 Active 19403527 Problem Mood disorder F39 Active 886728 05 Problem Type 1 diabetes mellitus with hyperglycemia E10.65 Active [id number] Problem Type 1 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 Active 68757920 Problem Chronic fatigue R53.82 Active 8422 9001 Problem Controlled diabetes mellitus type 1 without complications E10.9 Active [id number] ALLERGIES No Information ENCOUNTERS Encounter Location Date Diagnosis [place] [address] [place] [id number] [address] [place] [id number] 02 Feb, 2020 Type 1 diabetes mellitus wit h other diabetic neurological complication E10.49 [place] [id number] [place] [address] Jan, Type 1 diabetes mellitus wit h other diabetic neurological complication E10.49 [place] [id number] [place] [id number] [address] [place] [address] Jan, Type 1 diabetes mellitus wit h other diabetic neurological complication E10.49 [place] [address] [place] [id number] [place] [id number] 03 Dec, 2019 Type 1 diabetes mellitus wit h other diabetic neurological complication E10.49 [place] [address] [place] [id number] [place] [address] Nov, Type 1 diabetes mellitus wit h diabetic polyneuropathy E10.42 ; Mood disorder F39 ; Vitamin D deficiency E55.9 and Renal insufficiency N28.9 [facility] [address] [facility] [id number] [address] [place] [address] Nov, Type 1 diabetes mellitus wit h other diabetic neurological complication E10.49 [facility] [address] [facility] [id number] [address] [place] [address] Oct, Other chronic pain G89.29 [facility] [address] [facility] [id number] [address] [place] [address] Oct, Type 1 diabetes mellitus wit h other diabetic neurological complication E10.49 [facility] [address] [place] [id number] [place] [address] Oct, [facility] [address] [place] [id number] [address] [place] [id number] Aug, Type 1 diabetes mellitus wit h other diabetic neurological complication E10.49 [facility] [address] [place] [id number] [place] [address] 14 Aug, 2019 Encounter for immunization Z 23 [facility] [address] [place] [id number] [place] [address] 08 Aug, 2019 Vitamin D deficiency E55.9 [facility] [address] [facility] [id number] [address] [place] [address] Jul, Type 1 diabetes mellitus wit h other diabetic neurological complication E10.49 [facility] [address] [facility] [id number] [address] [place] [address] Jul, Type 1 diabetes mellitus wit h hyperglycemia E10.65 [facility] [address] [facility] [id number] [address] [place] [address] Jun, Type 1 diabetes mellitus wit h other diabetic neurological complication E10.49 [facility] [address] [facility] [id number] [address] [place] [address] May, [facility] [address] [place] [id number] [place] [address] May, [facility] [address] [id number] [address] [place] [address] May, Other chronic pain G89.29 [facility] [address] [id number] [address] [place] [address] May, [facility] [address] [id number] [address] [place] [address] May, Type 1 diabetes mellitus wit h other diabetic neurological complication E10.49 [facility] [address] [id number] [address] [place] [address] Apr, [facility] [address] [id number] [address] [place] [address] Apr, Type 1 diabetes mellitus wit h other diabetic neurological complication E10.49 [facility] [address] [id number] [address] [place] [address] Apr, Encounter for Medicare annua l wellness exam Z00.00 [facility] [address] [id number] [address] [place] [address] March, Encounter for Medicare annua l wellness exam Z00.00 and Type 1 diabetes mellitus with other diabetic neurological complication E10.49 [facility] [address] [id number] [address] [place] [address] Feb, Type 1 diabetes mellitus wit h other diabetic neurological complication E10.49 [facility] [address] [id number] [address] [place] [id number] Feb, Encounter for Medicare annua l wellness exam Z00.00 ; Mood disorder F39 ; Type 1 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 ; Hypertension, essential I10 and Chronic fatigue R53.82 [facility] [address] [id number] [address] [place] [address] Jan, Type 1 diabetes mellitus wit h other diabetic neurological complication E10.49 [facility] [address] [id number] [address] [place] [id number] Jan, [facility] [address] [id number] [address] [place] [address] Jan, Other chronic pain G89.29 [facility] [address] [id number] [address] [place] [id number] 11 Dec, 2018 [facility] [address] [facility] [id number] [address] [place] [address] 08 Dec, 2018 Type 1 diabetes mellitus wit h other diabetic neurological complication E10.49 [facility] [address] [id number] [address] [place] [address] 05 Dec, 2018 Other chronic pain G89.29 [facility] [address] [id number] [address] [place] [id number] Nov, [facility] [address] [id number] [address] [place] [address] [id number] Nov, Caries K02.9 [facility] [address] [facility] [id number] [address] [place] [address] Nov, Type 1 diabetes mellitus wit h other diabetic neurological complication E10.49 [facility] [address] [facility] [id number] [address] [place] [address] Nov, Controlled diabetes mellitus type 1 without complications E10.9 ; Other chronic pain G89.29 and Pain in left knee M25.562 [facility] [address] [id number] [address] [place] [address] [id number] Oct, Dental examination Z01.20 [facility] [address] [id number] [address] [place] [address] 14 Oct, 2018 Cutaneous abscess of unspeci fied foot L02.619 and Cellulitis of unspecified part of limb L03.119 [facility] [address] [id number] [address] [place] [address] 11 Oct, 2018 [facility] [address] [facility] [id number] [address] [place] [address] Oct, Type 1 diabetes mellitus wit h other diabetic neurological complication E10.49 [facility] [address] [id number] [address] [place] [address] [id number] 06 Oct, 2018 Dental examination Z01.20 an d Caries K02.9 [facility] [address] [facility] [id number] [address] [place] [address] 04 Oct, 2018 Cutaneous abscess of left fo ot L02.612 and Cellulitis of left lower limb L03.116 [facility] [address] [facility] [id number] [address] [place] [address] 04 Oct, 2018 Dental examination Z01.20 an d Pain, dental K08.89 [facility] [address] [facility] [id number] [address] [place] [address] Sep, Left foot pain M79.672 and L eft anterior knee pain M25.562 [facility] [address] [facility] [id number] [address] [place] [address] Sep, Type 1 diabetes mellitus wit h other diabetic neurological complication E10.49 [facility] [address] [facility] [id number] [address] [place] [address] Sep, [facility] [address] [facility] [id number] [address] [place] [address] 11 Aug, 2018 Type 1 diabetes mellitus wit h other diabetic neurological complication E10.49 [facility] [address] [facility] [id number] [address] [place] [id number] 10 Aug, 2018 Encounter for immunization Z 23 [facility] [address] [facility] [id number] [address] [place] [address] 05 Aug, 2018 Type 1 diabetes mellitus wit h hyperglycemia E10.65 [facility] [address] [facility] [id number] [address] [place] [address] Jul, Type 1 diabetes mellitus wit h hyperglycemia E10.65 [facility] [address] [facility] [id number] [address] [place] [address] Jul, [facility] [address] [facility] [id number] [address] [place] [id number] Jul, [facility] [address] [id number] [address] [place] [address] Jul, Type 1 diabetes mellitus wit h other diabetic neurological complication E10.49 [facility] [address] [id number] [address] [place] [id number] Jul, Type 1 diabetes mellitus wit h other diabetic neurological complication E10.49 and Mood disorder F39 [facility] [address] [id number] [address] [place] [address] Jun, [facility] [address] [facility] [id number] [address] [place] [address] Jun, Type 1 diabetes mellitus wit h other diabetic neurological complication E10.49 and Chronic fatigue R53.82 [facility] [address] [id number] [address] [place] [address] May, Type 1 diabetes mellitus wit h other diabetic neurological complication E10.49 [facility] [address] [id number] [address] [place] [address] May, [facility] [address] [id number] [address] [place] [address] May, [facility] [address] [facility] [id number] [address] [place] [address] Apr, [facility] [address] [facility] [id number] [address] [place] [id number] Apr, Type 1 diabetes mellitus wit h other diabetic neurological complication E10.49 [facility] [address] [id number] [address] [place] [address] March, [facility] [address] [id number] [address] [place] [address] Feb, [facility] [address] [facility] [id number] [address] [place] [address] Feb, Type 1 diabetes mellitus wit h other diabetic neurological complication E10.49 ; Tobacco abuse Z72.0 and Tobacco abuse counseling Z71.6 [facility] [address] [facility] [id number] [address] [place] [address] Jan, Type 1 diabetes mellitus wit h hyperglycemia E10.65 [facility] [address] [facility] [id number] [address] [place] [address] Jan, [facility] [address] [facility] [id number] [address] [place] [address] Dec, Tobacco abuse Z72.0 [facility] [address] [facility] [id number] [address] [place] [address] Dec, Type 1 diabetes mellitus wit h hyperglycemia E10.65 [facility] [address] [facility] [id number] [address] Dec, Type 1 diabetes mellitus wit h hyperglycemia E10.65 ; Tobacco abuse Z72.0 and Tobacco abuse counseling Z71.6 [facility] [address] [facility] [id number] [address] [place] [address] Nov, Type 1 diabetes mellitus wit h hyperglycemia E10.65 [facility] [address] [facility] [id number] [address] [place] [address] Oct, Type 1 diabetes mellitus wit h hyperglycemia E10.65 [facility] [address] [facility] [id number] [address] [place] [address] Oct, Type 1 diabetes mellitus wit h hyperglycemia E10.65 [facility] [id number] [place] [address] Sep, Type 1 diabetes mellitus wit h hyperglycemia E10.65 [facility] [address] [facility] [id number] [address] [place] [address] Aug, Type 1 diabetes mellitus wit h hyperglycemia E10.65 [facility] [address] [facility] [id number] [address] [place] [address] Aug, [facility] [address] [facility] [id number] [address] [place] [address] Aug, Type 1 diabetes mellitus wit h hyperglycemia E10.65 [facility] [address] [id number] [address] [place] [address] 12 Aug, 2017 Encounter for immunization Z 23 [facility] [address] [id number] [address] [place] [address] Aug, Type 1 diabetes mellitus wit h hyperglycemia E10.65 [facility] [address] [facility] [id number] [address] [place] [address] Jul, Type 1 diabetes mellitus wit h hyperglycemia E10.65 [facility] [address] [id number] [address] [place] [address] Jul, Type 1 diabetes mellitus wit h hyperglycemia E10.65 [facility] [address] [id number] [address] [place] [address] May, Type 1 diabetes mellitus wit h hyperglycemia E10.65 [facility] [address] [id number] [address] [place] [address] May, [facility] [address] [id number] [address] [place] [address] Apr, [facility] [address] [id number] [address] [place] [address] Apr, Type 1 diabetes mellitus wit h hyperglycemia E10.65 [facility] [address] [id number] [address] [place] [address] March, [facility] [address] [id number] [address] [place] [address] March, [facility] [address] [id number] [address] [place] [address] Jan, [facility] [address] [id number] [address] [place] [address] Jan, [facility] [address] [facility] [id number] [address] [place] [address] Jan, Type 1 diabetes mellitus wit h diabetic polyneuropathy E10.42 [facility] [address] [id number] [address] [place] [address] Jan, Type 1 diabetes mellitus wit h hyperglycemia E10.65 ; Excessive cerumen in both ear canals H61.23 and Controlled diabetes mellitus type 1 without complications E10.9 [facility] [address] [id number] [address] [place] [id number] 16 Dec, 2016 [facility] [address] [id number] [address] [place] [address] Dec, [facility] [address] [id number] [address] [place] [address] Dec, [facility] [address] [id number] [address] [place] [address] Dec, [facility] [address] [facility] [id number] [address] [place] [address] Nov, [facility] [address] [id number] [address] [place] [address] Nov, [facility] [address] [id number] [address] [place] [address] Oct, Type 1 diabetes mellitus wit h hyperglycemia E10.65 [facility] [address] [id number] [address] [place] [address] Sep, [facility] [address] [facility] [id number] [address] [place] [id number] Sep, [facility] [address] [facility] [id number] [address] [place] [address] Sep, Controlled diabetes mellitus type 1 without complications E10.9 [facility] [address] [id number] [address] [place] [address] Sep, [facility] [address] [id number] [address] [place] [address] [id number] Aug, Dental caries K02.9 [facility] [address] [facility] [id number] [address] [place] [address] Aug, Type 1 diabetes mellitus wit h diabetic polyneuropathy E10.42 [facility] [address] [id number] [address] [place] [address] Aug, [facility] [address] [id number] [address] [place] [address] Aug, [facility] [address] [id number] [address] [place] [address] Aug, [facility] [address] [id number] [address] [place] [address] Jul, Type 1 diabetes mellitus wit h hyperglycemia E10.65 [facility] [address] [id number] [address] [place] [address] Jul, Type 1 diabetes mellitus wit h hyperglycemia E10.65 ; Tooth pain K08.8 and Encounter for immunization Z23 [facility] [address] [id number] [address] [place] [address] [id number] 08 Jul, 2016 Dental examination Z01.20 [facility] [address] [id number] [address] [place] [address] Jul, [facility] [address] [id number] [address] [place] [address] Jul, [facility] [address] [id number] [address] [place] [address] Jul, [facility] [address] [id number] [address] [place] [address] Jun, [facility] [address] [id number] [address] [place] [address] May, [facility] [address] [id number] [address] [place] [address] Apr, [facility] [address] [id number] [address] [place] [address] Apr, [facility] [address] [id number] [address] [place] [address] Apr, [facility] [address] [id number] [address] [place] [address] March, [facility] [address] [id number] [address] [place] [address] March, [facility] [address] [facility] [id number] [address] [place] [address] Feb, [facility] [address] [facility] [id number] [address] [place] [id number] Feb, [facility] [address] [id number] [address] [place] [address] Feb, Type 1 diabetes mellitus wit h hyperglycemia E10.65 [facility] [address] [facility] [id number] [address] [place] [address] Jan, [facility] [address] [facility] [id number] [address] [place] [address] Jan, [facility] [address] [facility] [id number] [address] [place] [address] Jan, [facility] [address] [facility] [id number] [address] [place] [address] Jan, [facility] [address] [facility] [id number] [address] [place] [address] Dec, [facility] [address] [facility] [id number] [address] [place] [id number] Nov, [facility] [address] [facility] [id number] [address] [place] [address] Nov, [facility] [address] [facility] [id number] [address] [place] [address] Oct, [facility] [address] [facility] [id number] [address] [place] [address] Oct, Type 1 diabetes mellitus wit h 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 ; Type 1 diabetes mellitus with hyperglycemia E10.65 ; Gastroparesis K31.84 and Esophageal stricture K22.2 [facility] [address] [id number] [address] [place] [address] Oct, [facility] [address] [id number] [address] [place] [id number] Sep, [facility] [address] [id number] [address] [place] [id number] Sep, Type 1 diabetes mellitus wit h other diabetic neurological complication E10.49 [facility] [address] [id number] [address] [place] [address] Aug, Encounter for immunization Z 23 [facility] [address] [id number] [address] [place] [address] Aug, [facility] [address] [id number] [address] [place] [address] Aug, [facility] [address] [id number] [address] [place] [id number] Jul, [facility] [address] [id number] [address] [place] [id number] Jul, [facility] [address] [id number] [address] [place] [address] Jun, [facility] [address] [id number] [address] [place] [address] Jun, [facility] [address] [id number] [address] [place] [address] Jun, [facility] [address] [id number] [address] [place] [id number] May, [facility] [address] [id number] [address] [place] [address] May, [facility] [address] [id number] [address] [place] [address] May, Diabetes type 1, controlled 250.01 [facility] [address] [id number] [address] [place] [address] May, [facility] [address] [id number] [address] [place] [id number] May, [facility] [address] [id number] [address] [place] [address] [id number] Apr, Dental examination V72.2 [facility] [address] [id number] [address] [place] [address] Apr, [facility] [address] [id number] [address] [place] [phone] Apr, [facility] [address] [id number] [address] [place] [id number] Apr, [facility] [address] [id number] [address] [place] [address] Apr, [facility] [address] [id number] [address] [place] [phone] Apr, [facility] [address] [id number] [address] [place] [address] [id number] Apr, Dental examination V72.2 [facility] [address] [id number] [address] [place] [id number] Apr, [facility] [address] [id number] [address] [place] [phone] Apr, [facility] [address] [id number] [address] [place] [id number] March, Diabetes mellitus type 1 250 .01 [facility] [address] [id number] [address] [place] [phone] March, [facility] [address] [id number] [address] [place] [phone] Feb, [facility] [address] [id number] [address] [place] [phone] Feb, [facility] [address] [id number] [address] [place] [phone] Jan, [facility] [address] [id number] [address] [place] [address], [place] [phone] Jan, [facility] [address] [id number] [address] [place] [address], [place] [phone] Jan, [facility] [address] [id number] [address] [place] [address], [place] [phone] Jan, [facility] [address] [address] [id number] [address] [place] [address], [place] [address] Dec, [facility] [address] [id number] [address] [place] [address], [place] [address] Dec, [facility] [address] [id number] [address] [place] [address], [place] [address] Nov, [facility] [address] [id number] [address] [place] [address], [place] [address] Nov, [facility] [address] [id number] [address] [place] [address], [place] [address] Nov, [facility] [address] [id number] [address] [place] [address], [place] [address] Nov, [facility] [address] [id number] [address] [place] [address], [place] [address] Nov, [facility] [address] [id number] [address] [place] [address], [place] [address] Nov, [facility] [address] [id number] [address] [place] [address], [place] [address] Nov, [facility] [address] [id number] [address] [place] [address], [place] [address] Oct, [facility] [address] [id number] [address] [place] [address], [place] [address] Oct, [facility] [address] [id number] [address] [place] [address], [place] [address] Sep, [facility] [address] [id number] [address] [place] [address], [place] [address] Aug, [facility] [address] [id number] [address] [place] [address], [place] [address] Aug, [facility] [address] [id number] [address] [place] [address], [place] [address] Aug, [facility] [address] [id number] [address] [place] [address], [place] [address] Aug, [facility] [address] [id number] [address] [place] [address], [place] [address] Aug, [facility] [address] [id number] [address] [place] [address], [place] [address] Aug, [facility] [address] [id number] [address] [place] [address], [place] [address] Aug, [facility] [address] [id number] [address] [place] [address], [place] [address] Aug, [facility] [address] [id number] [address] [place] [address], [place] [address] Aug, [facility] [address] [id number] [address] [place] [address], [place] [address] Aug, [facility] [address] [id number] [address] [place] [address] Aug, [facility] [address] [id number] [address] [place] [address] Aug, [facility] [address] [id number] [address] [place] [address] Aug, [facility] [address] [id number] [address] [place] [address] Aug, [facility] [address] [id number] [address] [place] [address] Jul, [facility] [address] [id number] [address] [place] [address] Jul, [facility] [address] [id number] [address] [place] [address] Jul, [facility] [address] [id number] [address] [place] [address], [place] [address] Jul, [facility] [address] [id number] [address] [place] [address], [place] [address] Jun, [facility] [address] [id number] [address] [place] [address], [place] [address] Jun, [facility] [address] [id number] [address] [place] [address], [place] [address] Jun, [facility] [address] [id number] [address] [place] [address], [place] [address] Jun, [facility] [address] [id number] [address] [place] [address], [place] [address] May, [facility] [address] [id number] [address] [place] [address], [place] [address] May, [facility] [address] [id number] [address] [place] [address], [place] [address] May, [facility] [address] [id number] [address] [place] [address], [place] [address] May, [facility] [address] [id number] [address] [place] [address], [place] [address] May, [facility] [address] [id number] [address] [place] [address], [place] [address] May, [facility] [address] [id number] [address] [place] [address], [place] [address] May, [facility] [address] [id number] [address] [place] [address], [place] [address] May, [facility] [address] [id number] [address] [place] [address], [place] [address] May, [facility] [address] [id number] [address] [place] [address], [place] [address] May, [facility] [address] [id number] [facility] [place] [address] May, [facility] [address] [id number] [facility] [place] [address] May, [facility] [address] [id number] [facility] [place] [address] May, [facility] [address] [id number] [facility] [place] [address] Apr, [facility] [address] [id number] [facility] [place] [address] Apr, [facility] [address] [id number] [address] [place] [address], [place] [address] Apr, [facility] [address] [id number] [address] [place] [address], [place] [address] Apr, [facility] [address] [id number] [address] [place] [address], [place] [address] Apr, [facility] [address] [id number] [address] [place] [address], [place] [address] Apr, [facility] [address] [id number] [address] [place] [address], [place] [address] Apr, [facility] [address] [id number] [address] [place] [address], [place] [address] Apr, [facility] [address] [id number] [address] [place] [address], [place] [address] Apr, [facility] [address] [id number] [address] [place] [address], [place] [address] Apr, [facility] [address] [id number] [address] [place] [address], [place] [address] Apr, [facility] [address] [id number] [address] [place] [address], [place] [address] Apr, [facility] [address] [id number] [address] [place] [address], [place] [address] Apr, [facility] [address] [id number] [address] [place] [address], [place] [address] Apr, [facility] [address] [id number] [address] [place] [address], [place] [address] March, [facility] [address] [id number] [address] [place] [address], [place] [address] March, [facility] [address] [id number] [address] [place] [address], [place] [address] March, [facility] [address] [id number] [address] [place] [address], [place] [address] March, [facility] [address] [id number] [address] [place] [address], [place] [address] March, [facility] [address] [id number] [address] [place] [address], [place] [address] March, [facility] [address] [id number] [address] [place] [address], [place] [address] March, [facility] [address] [id number] [address] [place] [address], [place] [address] March, [facility] [address] [id number] [address] [place] [address], [place] [address] March, [facility] [address] [id number] [address] [place] [address], [place] [address] March, [facility] [address] [id number] [address] [place] [address], [place] [address] Feb, [facility] [address] [id number] [address] [place] [address], [place] [address] Feb, [facility] [address] [id number] [address] [place] [address], [place] [address] Feb, [facility] [address] [id number] [address] [place] [address], [place] [address] Feb, [facility] [address] [id number] [facility] [place] [address] 10 Feb, 2014 [facility] [address] [id number] [address] [place] [address], [place] [address] 10 Feb, 2014 [facility] [address] [id number] [facility] [place] [address] Feb, [facility] [address] [id number] [address] [place] [address], [place] [address] Feb, [facility] [address] [id number] [address] [place] [address], [place] [address] Jan, [facility] [address] [id number] [address] [place] [address], [place] [address] Jan, [facility] [address] [id number] [address] [place] [address], [place] [address] Jan, [facility] [address] [id number] [address] [place] [address], [place] [address] Jan, [facility] [address] [id number] [address] [place] [address], [place] [address] Jan, [facility] [address] [id number] [address] [place] [address], [place] [address] Jan, [facility] [address] [id number] [address] [place] [address], [place] [address] Jan, [facility] [address] [id number] [address] [place] [address], [place] [address] Jan, [facility] [address] [id number] [address] [place] [address], [place] [address] Jan, [facility] [address] [id number] [address] [place] [address], [place] [address] Jan, [facility] [address] [id number] [address] [place] [address], [place] [address] Dec, [facility] [address] [id number] [address] [place] [address], [place] [address] Dec, [facility] [address] [id number] [address] [place] [address], [place] [address] Nov, [facility] [address] [id number] [address] [place] [address], [place] [address] Nov, [facility] [address] [id number] [address] [place] [address], [place] [address] Nov, [facility] [address] [id number] [address] [place] [address], [place] [address] Nov, [facility] [address] [id number] [address] [place] [address], [place] [address] Nov, [facility] [address] [id number] [address] [place] [address], [place] [address] Nov, [facility] [address] [id number] [address] [place] [address], [place] [address] Nov, [facility] [address] [id number] [address] [place] [address], [place] [address] Nov, [facility] [address] [id number] [address] [place] [address], [place] [address] Oct, [facility] [address] [id number] [address] [place] [address], [place] [address] Oct, [facility] [address] [id number] [address] [place] [address], [place] [address] Oct, [facility] [address] [id number] [address] [place] [address], [place] [address] Oct, [facility] [address] [id number] [address] [place] [address], [place] [address] Oct, [facility] [address] [id number] [address] [place] [address], [place] [address] Oct, [facility] [address] [id number] [address] [place] [address], [place] [address] Sep, [facility] [address] [id number] [address] [place] [address] Sep, [facility] [address] [id number] [address] [place] [address], [place] [address] Sep, [facility] [address] [id number] [address] [place] [address] Sep, [facility] [address] [id number] [address] [place] [address], [place] [address] Sep, [facility] [address] [id number] [address] [place] [address], [place] [address] Aug, [facility] [address] [id number] [address] [place] [address], [place] [address] Aug, [facility] [address] [id number] [address] [place] [address], [place] [address] Aug, [facility] [address] [id number] [address] [place] [address], [place] [address] Aug, [facility] [address] [id number] [address] [place] [address], [place] [address] Aug, [facility] [address] [id number] [address] [place] [address], [place] [address] Aug, [facility] [address] [id number] [address] [place] [address], [place] [address] Jul, [facility] [address] [id number] [address] [place] [address], [place] [address] Jul, [facility] [address] [id number] [address] [place] [address], [place] [address] Jul, [facility] [address] [id number] [address] [place] [address], [place] [address] Jun, [facility] [address] [id number] [address] [place] [address], [place] [address] Jun, [facility] [address] [id number] [address] [place] [address], [place] [address] May, [facility] [address] [id number] [address] [place] [address], [place] [address] 10 May, 2013 [facility] [address] [id number] [address] [place] [address], [place] [address] 11 Apr, 2013 [facility] [address] [id number] [address] [place] [address], [place] [address] 07 Apr, 2013 [facility] [address] [id number] [address] [place] [address], [place] [address] Apr, [facility] [address] [id number] [address] [place] [address], [place] [address] March, [facility] [address] [id number] [address] [place] [address], [place] [address] Feb, [facility] [address] [id number] [address] [place] [address], [place] [address] Feb, [facility] [address] [id number] [address] [place] [address], [place] [address] Jan, [facility] [address] [id number] [address] [place] [address], [place] [address] Jan, [facility] [address] [id number] [address] [place] [address], [place] [address] Jan, [facility] [address] [id number] [address] [place] [address], [place] [address] Jan, [facility] [address] [id number] [address] [place] [address], [place] [address] Jan, [facility] [address] [id number] [address] [place] [address], [place] [address] 28 Dec, 2012 [facility] [address] [id number] [address] [place] [address], [place] [address] 27 Dec, 2012 [facility] [address] [id number] [address] [place] [address], [place] [address] 18 Dec, 2012 [facility] [address] [id number] [address] [place] [address], [place] [address] Dec, [facility] [address] [id number] [address] [place] [address], [place] [address] Dec, [facility] [address] [id number] [address] [place] [address], [place] [address] Dec, [facility] [address] [place] [id number] Nov, [facility] [address] [id number] [address] [place] [address], [place] [address] Nov, [facility] [address] [id number] [address] [place] [address], [place] [address] Nov, [facility] [address] [id number] [address] [place] [address], [place] [address] Nov, [facility] [address] [id number] [address] [place] [address], [place] [address] Nov, [facility] [address] [id number] [address] [place] [address], [place] [address] Oct, [facility] [address] [id number] [address] [place] [address], [place] [address] Oct, [facility] [address] [id number] [address] [place] [address], [place] [address] Oct, [facility] [address] [id number] [address] [place] [address], [place] [address] Oct, [facility] [address] [id number] [address] [place] [address], [place] [address] Oct, [facility] [address] [id number] [address] [place] [address], [place] [address] Oct, [facility] [address] [id number] [address] [place] [address], [place] [address] Oct, [facility] [address] [id number] [address] [place] [address], [place] [address] Oct, [facility] [address] [id number] [address] [place] [address], [place] [address] Sep, [facility] [address] [id number] [address] [place] [address], [place] [address] Sep, [facility] [address] [id number] [address] [place] [address], [place] [address] Sep, [facility] [address] [id number] [address] [place] [address], [place] [address] Sep, [facility] [address] [id number] [address] [place] [address], [place] [address] Sep, [facility] [address] [id number] [address] [place] [address], [place] [address] Sep, [facility] [address] [id number] [address] [place] [address], [place] [address] Sep, [facility] [address] [id number] [address] [place] [address], [place] [id number] Sep, [facility] [address] [id number] [address] [place] [address], [place] [address] Sep, [facility] [address] [id number] [address] [place] [address], [place] [address] Sep, [facility] [address] [id number] [address] [place] [address], [place] [address] Sep, [facility] [address] [id number] [address] [place] [address], [place] [address] Sep, [facility] [address] [id number] [address] [place] [id number] Sep, [facility] [address] [id number] [address] [place] [id number] Sep, [facility] [address] [id number] [address] [place] [id number] Sep, [facility] [address] [id number] [address] [place] [id number] Sep, IMMUNIZATIONS No Known Immunizations SOCIAL HISTORY [...]
--- OUTSIDE RECORDS SUMMARY | 2020-04-17 21:16 | XMS REPORT ---
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 Active 20477089 Problem Other chronic pain G89.29 Active 8 3548737 Problem Hypertension, essential I10 Active 43913437 Problem Vitamin D deficiency E55.9 Active 80108531 Problem Mood disorder F39 Active 358687 05 Problem Type 1 diabetes mellitus with hyperglycemia E10.65 Active [id number] Problem Type 1 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 Active 24756208 Problem Chronic fatigue R53.82 Active 8422 9001 Problem Controlled diabetes mellitus type 1 without complications E10.9 Active 14676762 ALLERGIES No Information ENCOUNTERS Encounter Location Date Diagnosis [place] [address] [address] [place] [id number] [address] [place] [id number] 04 Mar, 2020 Type 1 diabetes mellitus wit h other diabetic neurological complication E10.49 [place] [address] [address] [place] [id number] [address] [place] [id number] 04 Mar, 2020 Type 1 diabetes mellitus wit h other diabetic neurological complication E10.49 [place] [address] [address] [facility] [id number] [address] [place] [id number] 02 Feb, 2020 Type 1 diabetes mellitus wit h other diabetic neurological complication E10.49 [place] [address] [place] [id number] [address] [place] [id number] Jan, Type 1 diabetes mellitus wit h other diabetic neurological complication E10.49 [place] [address] [address] [place] [id number] [address] [place] [id number] Jan, Type 1 diabetes mellitus wit h other diabetic neurological complication E10.49 [facility] [address] [facility] [id number] [address] [place] [id number] 03 Dec, 2019 Type 1 diabetes mellitus wit h other diabetic neurological complication E10.49 [facility] [address] [facility] [id number] [address] [place] [id number] 13 Nov, 2019 Type 1 diabetes mellitus wit h diabetic polyneuropathy E10.42 ; Mood disorder F39 ; Vitamin D deficiency E55.9 and Renal insufficiency N28.9 [facility] [address] [facility] [id number] [address] [place] [id number] 03 Nov, 2019 Type 1 diabetes mellitus wit h other diabetic neurological complication E10.49 [facility] [address] [facility] [id number] [address] [place] [id number] 12 Oct, 2019 Other chronic pain G89.29 [facility] [address] [facility] [id number] [address] [place] [id number] 02 Oct, 2019 Type 1 diabetes mellitus wit h other diabetic neurological complication E10.49 [facility] [address] [facility] [id number] [address] [place] [id number] 02 Oct, 2019 [facility] [address] [facility] [id number] [address] [place] [id number] 29 Aug, 2019 Type 1 diabetes mellitus wit h other diabetic neurological complication E10.49 [facility] [address] [facility] [id number] [address] [place] [id number] 14 Aug, 2019 Encounter for immunization Z 23 [facility] [address] [facility] [id number] [address] [place] [id number] 08 Aug, 2019 Vitamin D deficiency E55.9 [facility] [address] [facility] [id number] [address] [place] [id number] 26 Jul, 2019 Type 1 diabetes mellitus wit h other diabetic neurological complication E10.49 [facility] [address] [facility] [id number] [address] [place] [id number] 13 Jul, 2019 Type 1 diabetes mellitus wit h hyperglycemia E10.65 [facility] [address] [facility] [id number] [address] [place] [id number] Jun, Type 1 diabetes mellitus wit h other diabetic neurological complication E10.49 [facility] [address] [id number] [address] [place] [id number] May, [facility] [address] [id number] [address] [place] [id number] May, [facility] [address] [id number] [address] [place] [phone] May, Other chronic pain G89.29 [facility] [address] [id number] [address] [place] [id number] May, [facility] [address] [id number] [address] [place] [phone] May, Type 1 diabetes mellitus wit h other diabetic neurological complication E10.49 [facility] [address] [id number] [address] [place] [id number] Apr, [facility] [address] [id number] [address] [place] [id number] Apr, Type 1 diabetes mellitus wit h other diabetic neurological complication E10.49 [facility] [address] [id number] [address] [place] [id number] Apr, Encounter for Medicare annua l wellness exam Z00.00 [facility] [address] [id number] [address] [place] [id number] March, Encounter for Medicare annua l wellness exam Z00.00 and Type 1 diabetes mellitus with other diabetic neurological complication E10.49 [facility] [address] [id number] [address] [place] [id number] Feb, Type 1 diabetes mellitus wit h other diabetic neurological complication E10.49 [facility] [address] [id number] [address] [place] [id number] Feb, Encounter for Medicare annua l wellness exam Z00.00 ; Mood disorder F39 ; Type 1 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 ; Hypertension, essential I10 and Chronic fatigue R53.82 [facility] [address] [id number] [address] [place] [id number] 13 Jan, 2019 Type 1 diabetes mellitus wit h other diabetic neurological complication E10.49 [facility] [address] [id number] [address] [place] [id number] 11 Jan, 2019 [facility] [address] [id number] [address] [place] [phone] Jan, Other chronic pain G89.29 [facility] [address] [id number] [address] [place] [id number] 11 Dec, 2018 [facility] [address] [id number] [address] [place] [id number] 08 Dec, 2018 Type 1 diabetes mellitus wit h other diabetic neurological complication E10.49 [facility] [address] [id number] [address] [place] [id number] 05 Dec, 2018 Other chronic pain G89.29 [facility] [address] [id number] [address] [place] [phone] Nov, [facility] [address] [id number] [address] [place] [address] [id number] Nov, Caries K02.9 [facility] [address] [id number] [address] [place] [id number] Nov, Type 1 diabetes mellitus wit h other diabetic neurological complication E10.49 [facility] [address] [id number] [address] [place] [id number] Nov, Controlled diabetes mellitus type 1 without complications E10.9 ; Other chronic pain G89.29 and Pain in left knee M25.562 [facility] [address] [id number] [address] [place] [id number] Oct, Dental examination Z01.20 [facility] [address] [id number] [address] [place] [id number] 14 Oct, 2018 Cutaneous abscess of unspeci fied foot L02.619 and Cellulitis of unspecified part of limb L03.119 [facility] [address] [facility] [id number] [address] [place] [id number] 11 Oct, 2018 [facility] [address] [facility] [id number] [address] [place] [id number] 10 Oct, 2018 Type 1 diabetes mellitus wit h other diabetic neurological complication E10.49 [facility] [address] [facility] [id number] [address] [place] [address] [id number] 06 Oct, 2018 Dental examination Z01.20 an d Caries K02.9 [facility] [address] [facility] [id number] [address] [place] [id number] 04 Oct, 2018 Cutaneous abscess of left fo ot L02.612 and Cellulitis of left lower limb L03.116 [facility] [address] [place] [id number] [address] [place] [id number] 04 Oct, 2018 Dental examination Z01.20 an d Pain, dental K08.89 [facility] [address] [facility] [id number] [address] [place] [id number] Sep, Left foot pain M79.672 and L eft anterior knee pain M25.562 [facility] [address] [facility] [id number] [address] [place] [id number] Sep, Type 1 diabetes mellitus wit h other diabetic neurological complication E10.49 [facility] [address] [facility] [id number] [address] [place] [phone] Sep, [facility] [address] [place] [id number] [address] [place] [id number] Aug, Type 1 diabetes mellitus wit h other diabetic neurological complication E10.49 [facility] [address] [place] [id number] [address] [place] [id number] 10 Aug, 2018 Encounter for immunization Z 23 [facility] [address] [facility] [id number] [address] [place] [id number] 05 Aug, 2018 Type 1 diabetes mellitus wit h hyperglycemia E10.65 [facility] [address] [place] [id number] [address] [place] [id number] 21 Jul, 2018 Type 1 diabetes mellitus wit h hyperglycemia E10.65 [facility] [address] [id number] [address] [place] [id number] 19 Jul, 2018 [facility] [address] [id number] [address] [place] [id number] 18 Jul, 2018 [facility] [address] [id number] [address] [place] [id number] Jul, Type 1 diabetes mellitus wit h other diabetic neurological complication E10.49 [facility] [address] [id number] [address] [place] [phone] Jul, Type 1 diabetes mellitus wit h other diabetic neurological complication E10.49 and Mood disorder F39 [facility] [address] [id number] [address] [place] [id number] Jun, [facility] [address] [facility] [id number] [address] [place] [phone] Jun, Type 1 diabetes mellitus wit h other diabetic neurological complication E10.49 and Chronic fatigue R53.82 [facility] [address] [id number] [address] [place] [id number] May, Type 1 diabetes mellitus wit h other diabetic neurological complication E10.49 [facility] [address] [facility] [id number] [address] [place] [id number] May, [facility] [address] [facility] [id number] [address] [place] [id number] May, [facility] [address] [facility] [id number] [address] [place] [id number] Apr, [facility] [address] [facility] [id number] [address] [place] [id number] Apr, Type 1 diabetes mellitus wit h other diabetic neurological complication E10.49 [facility] [address] [facility] [id number] [address] [place] [id number] March, [facility] [address] [facility] [id number] [address] [place] [id number] Feb, [facility] [address] [facility] [id number] [address] [place] [phone] Feb, Type 1 diabetes mellitus wit h other diabetic neurological complication E10.49 ; Tobacco abuse Z72.0 and Tobacco abuse counseling Z71.6 [facility] [address] [facility] [id number] [address] [place] [id number] Jan, Type 1 diabetes mellitus wit h hyperglycemia E10.65 [facility] [address] [facility] [id number] [address] [place] [id number] Jan, [facility] [address] [facility] [id number] [address] [place] [phone] Dec, Tobacco abuse Z72.0 [facility] [address] [facility] [id number] [address] [place] [id number] Dec, Type 1 diabetes mellitus wit h hyperglycemia E10.65 [facility] [address] [facility] [id number] [address] [place] [id number] Dec, Type 1 diabetes mellitus wit h hyperglycemia E10.65 ; Tobacco abuse Z72.0 and Tobacco abuse counseling Z71.6 [facility] [address] [facility] [id number] [address] [place] [phone] Nov, Type 1 diabetes mellitus wit h hyperglycemia E10.65 [facility] [address] [facility] [id number] [address] [place] [phone] Oct, Type 1 diabetes mellitus wit h hyperglycemia E10.65 [facility] [address] [facility] [id number] [address] [place] [id number] Oct, Type 1 diabetes mellitus wit h hyperglycemia E10.65 [facility] [address] [facility] [id number] [address] [place] [id number] Sep, Type 1 diabetes mellitus wit h hyperglycemia E10.65 [facility] [address] [facility] [id number] [address] [place] [id number] Aug, Type 1 diabetes mellitus wit h hyperglycemia E10.65 [facility] [address] [id number] [address] [place] [id number] Aug, [facility] [address] [id number] [address] [place] [id number] Aug, Type 1 diabetes mellitus wit h hyperglycemia E10.65 [facility] [address] [id number] [address] [place] [id number] Aug, Encounter for immunization Z 23 [facility] [address] [id number] [address] [place] [id number] Aug, Type 1 diabetes mellitus wit h hyperglycemia E10.65 [facility] [address] [id number] [address] [place] [phone] Jul, Type 1 diabetes mellitus wit h hyperglycemia E10.65 [facility] [address] [id number] [address] [place] [phone] Jul, Type 1 diabetes mellitus wit h hyperglycemia E10.65 [facility] [address] [id number] [address] [place] [id number] May, Type 1 diabetes mellitus wit h hyperglycemia E10.65 [facility] [address] [id number] [address] [place] [phone] May, [facility] [address] [id number] [address] [place] [phone] Apr, [facility] [address] [id number] [address] [place] [id number] Apr, Type 1 diabetes mellitus wit h hyperglycemia E10.65 [facility] [address] [id number] [address] [place] [phone] March, [facility] [address] [facility] [id number] [address] [place] [id number] March, [facility] [address] [id number] [address] [place] [phone] Jan, [facility] [address] [id number] [address] [place] [id number] Jan, [facility] [address] [id number] [address] [place] [id number] Jan, Type 1 diabetes mellitus wit h diabetic polyneuropathy E10.42 [facility] [address] [id number] [address] [place] [id number] Jan, Type 1 diabetes mellitus wit h hyperglycemia E10.65 ; Excessive cerumen in both ear canals H61.23 and Controlled diabetes mellitus type 1 without complications E10.9 [facility] [address] [id number] [address] [place] [id number] 16 Dec, 2016 [facility] [address] [id number] [address] [place] [id number] Dec, [facility] [address] [id number] [address] [place] [id number] Dec, [facility] [address] [id number] [address] [place] [phone] Dec, [facility] [address] [id number] [address] [place] [phone] Nov, [facility] [address] [id number] [address] [place] [id number] Nov, [facility] [address] [id number] [address] [place] [id number] Oct, Type 1 diabetes mellitus wit h hyperglycemia E10.65 [facility] [address] [id number] [address] [place] [id number] Sep, [facility] [address] [id number] [address] [place] [phone] Sep, [facility] [address] [id number] [address] [place] [phone] Sep, Controlled diabetes mellitus type 1 without complications E10.9 [facility] [address] [id number] [address] [place] [phone] Sep, [facility] [address] [id number] [address] [place] [address] [id number] Aug, Dental caries K02.9 [facility] [address] [id number] [address] [place] [id number] Aug, Type 1 diabetes mellitus wit h diabetic polyneuropathy E10.42 [facility] [address] [id number] [address] [place] [id number] Aug, [facility] [address] [id number] [address] [place] [id number] Aug, [facility] [address] [id number] [address] [place] [id number] Aug, [facility] [address] [id number] [address] [place] [id number] Jul, Type 1 diabetes mellitus wit h hyperglycemia E10.65 [facility] [address] [id number] [address] [place] [phone] Jul, Type 1 diabetes mellitus wit h hyperglycemia E10.65 ; Tooth pain K08.8 and Encounter for immunization Z23 [facility] [address] [id number] [address] [place] [address] [id number] 08 Jul, 2016 Dental examination Z01.20 [facility] [address] [id number] [address] [place] [id number] 08 Jul, 2016 [facility] [address] [id number] [address] [place] [id number] 07 Jul, 2016 [facility] [address] [id number] [address] [place] [id number] Jul, [facility] [address] [id number] [address] [place] [phone] Jun, [facility] [address] [id number] [address] [place] [phone] May, [facility] [address] [id number] [address] [place] [phone] Apr, [facility] [address] [id number] [address] [place] [address], [place] [address] Apr, [facility] [address] [id number] [address] [place] [address], [place] [address] Apr, [facility] [address] [id number] [address] [place] [address], [place] [address] March, [facility] [address] [id number] [address] [place] [address], [place] [address] March, [facility] [address] [id number] [address] [place] [address], [place] [address] Feb, [facility] [address] [id number] [address] [place] [address], [place] [address] Feb, [facility] [address] [id number] [address] [place] [address], [place] [address] Feb, Type 1 diabetes mellitus wit h hyperglycemia E10.65 [facility] [address] [id number] [address] [place] [address], [place] [address] Jan, [facility] [address] [id number] [address] [place] [address], [place] [address] Jan, [facility] [address] [id number] [address] [place] [address], [place] [address] Jan, [facility] [address] [id number] [address] [place] [address], [place] [address] Jan, [facility] [address] [id number] [address] [place] [address], [place] [address] Dec, [facility] [address] [id number] [address] [place] [address], [place] [address] Nov, [facility] [address] [id number] [address] [place] [address], [place] [address] Nov, [facility] [address] [id number] [address] [place] [address], [place] [address] Oct, [facility] [address] [facility] [id number] [address] [place] [id number] Oct, Type 1 diabetes mellitus wit h 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 ; Type 1 diabetes mellitus with hyperglycemia E10.65 ; Gastroparesis K31.84 and Esophageal stricture K22.2 [facility] [address] [facility] [id number] [address] [place] [id number] Oct, [facility] [address] [id number] [address] [place] [id number] Sep, [facility] [address] [facility] [id number] [address] [place] [id number] Sep, Type 1 diabetes mellitus wit h other diabetic neurological complication E10.49 [facility] [address] [facility] [id number] [address] [place] [phone] 22 Aug, 2015 Encounter for immunization Z 23 [facility] [address] [facility] [id number] [address] [place] [phone] 19 Aug, 2015 [facility] [address] [facility] [id number] [address] [place] [phone] Aug, [facility] [address] [facility] [id number] [address] [place] [phone] Jul, [facility] [address] [facility] [id number] [address] [place] [id number] Jul, [facility] [address] [facility] [id number] [address] [place] [id number] Jun, [facility] [address] [facility] [id number] [address] [place] [id number] Jun, [facility] [address] [facility] [id number] [address] [place] [id number] Jun, [facility] [address] [facility] [id number] [address] [place] [id number] May, [facility] [address] [facility] [id number] [address] [place] [id number] May, [facility] [address] [id number] [address] [place] [phone] May, Diabetes type 1, controlled 250.01 [facility] [address] [id number] [address] [place] [phone] May, [facility] [address] [id number] [address] [place] [address] May, [facility] [address] [id number] [address] [place] [id number] Apr, Dental examination V72.2 [facility] [address] [id number] [address] [place] [address] Apr, [facility] [address] [id number] [address] [place] [address] Apr, [facility] [address] [id number] [address] [place] [address] Apr, [facility] [address] [id number] [address] [place] [address] Apr, [facility] [address] [id number] [address] [place] [address] Apr, [facility] [address] [id number] [address] [place] [id number] Apr, Dental examination V72.2 [facility] [address] [id number] [address] [place] [id number] Apr, [facility] [address] [id number] [address] [place] [phone] Apr, [facility] [address] [id number] [address] [place] [address] March, Diabetes mellitus type 1 250 .01 [facility] [address] [id number] [address] [place] [address] March, [facility] [address] [id number] [address] [place] [id number] 14 Feb, 2015 [facility] [address] [id number] [address] [place] [address], [place] [address] Feb, [facility] [address] [id number] [address] [place] [address], [place] [address] Jan, [facility] [address] [id number] [address] [place] [address], [place] [address] Jan, [facility] [address] [id number] [address] [place] [address], [place] [address] Jan, [facility] [address] [id number] [address] [place] [address], [place] [address] Jan, [facility] [address] [id number] [address] [place] [address], [place] [address] Dec, [facility] [address] [id number] [address] [place] [address], [place] [address] Dec, [facility] [address] [id number] [address] [place] [address], [place] [address] Nov, [facility] [address] [id number] [address] [place] [address], [place] [address] Nov, [facility] [address] [id number] [address] [place] [address], [place] [address] Nov, [facility] [address] [id number] [address] [place] [address], [place] [address] Nov, [facility] [address] [id number] [address] [place] [address], [place] [address] Nov, [facility] [address] [id number] [address] [place] [address], [place] [address] Nov, [facility] [address] [id number] [address] [place] [address], [place] [address] Nov, [facility] [address] [id number] [address] [place] [address], [place] [address] Oct, [facility] [address] [id number] [address] [place] [address], [place] [address] Oct, [facility] [address] [id number] [address] [place] [address], [place] [address] Sep, [facility] [address] [id number] [address] [place] [address], [place] [address] Aug, [facility] [address] [id number] [address] [place] [address], [place] [address] Aug, [facility] [address] [id number] [address] [place] [address], [place] [address] Aug, [facility] [address] [id number] [address] [place] [address], [place] [address] Aug, [facility] [address] [id number] [address] [place] [address], [place] [address] Aug, [facility] [address] [id number] [address] [place] [address], [place] [address] Aug, [facility] [address] [id number] [address] [place] [address], [place] [address] Aug, [facility] [address] [id number] [address] [place] [address], [place] [address] Aug, [facility] [address] [id number] [address] [place] [address], [place] [address] Aug, [facility] [address] [id number] [address] [place] [address], [place] [address] Aug, [facility] [address] [id number] [address] [place] [address], [place] [address] Aug, [facility] [address] [id number] [address] [place] [address], [place] [address] Aug, [facility] [address] [id number] [address] [place] [address], [place] [address] Aug, [facility] [address] [id number] [address] [place] [address], [place] [address] Aug, [facility] [address] [id number] [facility] [place] [address] Jul, [facility] [address] [id number] [address] [place] [address], [place] [address] Jul, [facility] [address] [id number] [address] [place] [address], [place] [address] Jul, [facility] [address] [id number] [address] [place] [address], [place] [address] Jul, [facility] [address] [id number] [address] [place] [address], [place] [address] Jun, [facility] [address] [id number] [address] [place] [address], [place] [address] Jun, [facility] [address] [id number] [address] [place] [address], [place] [address] Jun, [facility] [address] [id number] [address] [place] [address], [place] [address] Jun, [facility] [address] [id number] [address] [place] [address], [place] [address] May, [facility] [address] [id number] [address] [place] [address], [place] [address] May, [facility] [address] [id number] [address] [place] [address], [place] [address] May, [facility] [address] [id number] [address] [place] [address], [place] [address] May, [facility] [address] [id number] [address] [place] [address], [place] [address] May, [facility] [address] [id number] [address] [place] [address], [place] [address] May, [facility] [address] [id number] [address] [place] [address], [place] [address] May, [facility] [address] [id number] [facility] [place] [address] May, 2013 [facility] [address] [id number] [facility] [place] [address] May, 2013 [facility] [address] [id number] [facility] [place] [address] May, 2013 [facility] [address] [id number] [address] [place] [address], [place] [address] May, 2013 [facility] [address] [id number] [address] [place] [address], [place] [address] May, [facility] [address] [id number] [address] [place] [address], [place] [address] May, [facility] [address] [id number] [address] [place] [address], [place] [address] Apr, [facility] [address] [id number] [address] [place] [address], [place] [address] Apr, [facility] [address] [id number] [address] [place] [address], [place] [address] Apr, [facility] [address] [id number] [address] [place] [address], [place] [address] Apr, [facility] [address] [id number] [address] [place] [address], [place] [address] Apr, [facility] [address] [id number] [address] [place] [address], [place] [address] Apr, [facility] [address] [id number] [address] [place] [address], [place] [address] Apr, [facility] [address] [id number] [address] [place] [address], [place] [address] Apr, [facility] [address] [id number] [address] [place] [address], [place] [address] Apr, [facility] [address] [id number] [address] [place] [address], [place] [address] Apr, [facility] [address] [id number] [address] [place] [address], [place] [address] Apr, [facility] [address] [id number] [address] [place] [address], [place] [address] Apr, [facility] [address] [id number] [address] [place] [address], [place] [address] Apr, [facility] [address] [id number] [address] [place] [address], [place] [address] Apr, [facility] [address] [id number] [address] [place] [address], [place] [address] March, [facility] [address] [id number] [address] [place] [address], [place] [address] March, [facility] [address] [id number] [address] [place] [address], [place] [address] March, [facility] [address] [id number] [address] [place] [address], [place] [address] March, [facility] [address] [id number] [address] [place] [address], [place] [address] March, [facility] [address] [id number] [address] [place] [address], [place] [address] March, [facility] [address] [id number] [address] [place] [address], [place] [address] March, [facility] [address] [id number] [address] [place] [address], [place] [address] March, [facility] [address] [id number] [address] [place] [address], [place] [address] March, [facility] [address] [id number] [address] [place] [address], [place] [address] March, [facility] [address] [id number] [address] [place] [address], [place] [address] Feb, [facility] [address] [id number] [address] [place] [address], [place] [address] Feb, [facility] [address] [id number] [facility] [place] [address] Feb, [facility] [address] [id number] [address] [place] [address], [place] [address] Feb, [facility] [address] [id number] [address] [place] [address], [place] [address] Feb, [facility] [address] [id number] [address] [place] [address], [place] [address] Feb, [facility] [address] [id number] [address] [place] [address], [place] [address] Feb, [facility] [address] [id number] [address] [place] [address], [place] [address] Feb, [facility] [address] [id number] [address] [place] [address], [place] [address] Jan, [facility] [address] [id number] [address] [place] [address], [place] [address] Jan, [facility] [address] [id number] [address] [place] [address], [place] [address] Jan, [facility] [address] [id number] [address] [place] [address], [place] [address] Jan, [facility] [address] [id number] [address] [place] [address], [place] [address] Jan, [facility] [address] [id number] [address] [place] [address], [place] [address] Jan, [facility] [address] [id number] [address] [place] [address], [place] [address] Jan, [facility] [address] [id number] [address] [place] [address], [place] [address] Jan, [facility] [address] [id number] [address] [place] [address], [place] [address] Jan, [facility] [address] [id number] [address] [place] [address], [place] [address] Jan, [facility] [address] [id number] [address] [place] [address], [place] [address] Dec, [facility] [address] [id number] [address] [place] [address], [place] [address] Dec, [facility] [address] [id number] [address] [place] [address], [place] [address] Nov, [facility] [address] [id number] [address] [place] [address], [place] [address] Nov, [facility] [address] [id number] [address] [place] [address], [place] [address] Nov, [facility] [address] [id number] [address] [place] [address], [place] [address] Nov, [facility] [address] [id number] [address] [place] [address], [place] [address] Nov, [facility] [address] [id number] [address] [place] [address], [place] [address] Nov, [facility] [address] [id number] [address] [place] [address], [place] [address] Nov, [facility] [address] [id number] [address] [place] [address], [place] [address] Nov, [facility] [address] [id number] [address] [place] [address], [place] [address] Oct, [facility] [address] [id number] [address] [place] [address], [place] [address] Oct, [facility] [address] [id number] [address] [place] [address], [place] [address] Oct, [facility] [address] [id number] [address] [place] [address], [place] [address] Oct, [facility] [address] [id number] [address] [place] [address] [address] Oct, [facility] [address] [id number] [address] [place] [address], [place] [address] Oct, [facility] [address] [id number] [address] [place] [address], [place] [address] Sep, [facility] [address] [id number] [address] [place] [address], [place] [address] Sep, [facility] [address] [id number] [address] [place] [address], [place] [address] Sep, [facility] [address] [id number] [address] [place] [address], [place] [address] Sep, [facility] [address] [id number] [address] [place] [address], [place] [address] Sep, [facility] [address] [id number] [address] [place] [address], [place] [address] Aug, [facility] [address] [id number] [address] [place] [address] Aug, [facility] [address] [id number] [address] [place] [address] Aug, [facility] [address] [id number] [address] [place] [address] Aug, [facility] [address] [id number] [address] [place] [address] Aug, [facility] [address] [id number] [address] [place] [address] Aug, [facility] [address] [id number] [address] [place] [address] Jul, [facility] [address] [id number] [address] [place] [address] Jul, [facility] [address] [id number] [address] [place] [address] Jul, [facility] [address] [id number] [address] [place] [address], [place] [address] Jun, [facility] [address] [id number] [address] [place] [address], [place] [address] Jun, [facility] [address] [id number] [address] [place] [address], [place] [address] May, [facility] [address] [id number] [address] [place] [address], [place] [address] May, [facility] [address] [id number] [address] [place] [address], [place] [address] Apr, [facility] [address] [id number] [address] [place] [address], [place] [address] Apr, [facility] [address] [id number] [address] [place] [address], [place] [address] Apr, [facility] [address] [id number] [address] [place] [address], [place] [address] March, [facility] [address] [id number] [address] [place] [address], [place] [address] Feb, [facility] [address] [id number] [address] [place] [address], [place] [address] Feb, [facility] [address] [id number] [address] [place] [address], [place] [address] Jan, [facility] [address] [id number] [address] [place] [address], [place] [address] Jan, [facility] [address] [id number] [address] [place] [address], [place] [address] Jan, [facility] [address] [id number] [address] [place] [address], [place] [address] Jan, [facility] [address] [id number] [address] [place] [address], [place] [address] Jan, [facility] [address] [id number] [address] [place] [address], [place] [address] Dec, [facility] [address] [id number] [address] [place] [address], [place] [address] Dec, [facility] [address] [id number] [address] [place] [address], [place] [address] Dec, [facility] [address] [id number] [address] [place] [address], [place] [address] Dec, [facility] [address] [id number] [address] [place] [address], [place] [address] Dec, [facility] [address] [id number] [address] [place] [address], [place] [address] Dec, [facility] [address] [place] [id number] Nov, [facility] [address] [id number] [address] [place] [address], [place] [address] Nov, [facility] [address] [id number] [address] [place] [address], [place] [address] Nov, [facility] [address] [id number] [address] [place] [address], [place] [address] Nov, [facility] [address] [id number] [address] [place] [address], [place] [address] Nov, [facility] [address] [id number] [address] [place] [address], [place] [address] Oct, [facility] [address] [id number] [address] [place] [address], [place] [address] Oct, [facility] [address] [id number] [address] [place] [address], [place] [address] Oct, [facility] [address] [id number] [address] [place] [address], [place] [address] Oct, [facility] [address] [id number] [address] [place] [address], [place] [address] Oct, [facility] [address] [id number] [address] [place] [address], [place] [address] Oct, [facility] [address] [id number] [address] [place] [address], [place] [address] Oct, [facility] [address] [id number] [address] [place] [address], [place] [address] Oct, [facility] [address] [id number] [address] [place] [address], [place] [address] Sep, [facility] [address] [id number] [address] [place] [address], [place] [address] Sep, [facility] [address] [id number] [address] [place] [address], [place] [address] Sep, [facility] [address] [id number] [address] [place] [address], [place] [address] Sep, [facility] [address] [id number] [address] [place] [address], [place] [address] Sep, [facility] [address] [id number] [address] [place] [address], [place] [address] Sep, [facility] [address] [id number] [address] [place] [address], [place] [address] Sep, [facility] [address] [id number] [address] [place] [address], [place] [address] Sep, [facility] [address] [id number] [address] [place] [address], [place] [address] Sep, [facility] [address] [id number] [address] [place] [address], [place] [address] Sep, [facility] [address] [id number] [address] [place] [address], [place] [address] Sep, [facility] [address] [id number] [address] [place] [address], [place] [address] Sep, [facility] [address] [id number] [address] [place] [address], [place] [address] Sep, [facility] [address] [id number] [address] [place] [address] Sep, [facility] [address] [facility] [id number] [address] [place] [address] Sep, [facility] [address] [facility] [id number] [address] [place] [address] Sep, IMMUNIZATIONS No Known Immunizations SOCIAL HISTORY [...]
--- OUTSIDE RECORDS SUMMARY | 2020-04-17 21:17 | XMS REPORT ---
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 Active 83969565 Problem Other chronic pain G89.29 Active 8 4732887 Problem Hypertension, essential I10 Active 36778057 Problem Vitamin D deficiency E55.9 Active 73338248 Problem Mood disorder F39 Active 450731 05 Problem Type 1 diabetes mellitus with hyperglycemia E10.65 Active [id number] Problem Type 1 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 Active 04816581 Problem Chronic fatigue R53.82 Active 8422 9001 Problem Controlled diabetes mellitus type 1 without complications E10.9 Active 66898267 ALLERGIES No Information ENCOUNTERS Encounter Location Date Diagnosis [facility] [address] [facility] [id number] [address] [place] [phone] Feb, Type 1 diabetes mellitus wit h other diabetic neurological complication E10.49 [facility] [address] [facility] [id number] [address] [place] [id number] Jan, Type 1 diabetes mellitus wit h other diabetic neurological complication E10.49 [facility] [address] [facility] [id number] [address] [place] [phone] Jan, Type 1 diabetes mellitus wit h other diabetic neurological complication E10.49 [facility] [address] [facility] [id number] [address] [place] [phone] 03 Dec, 2019 Type 1 diabetes mellitus wit h other diabetic neurological complication E10.49 [facility] [address] [facility] [id number] [address] [place] [id number] 13 Nov, 2019 Type 1 diabetes mellitus wit h diabetic polyneuropathy E10.42 ; Mood disorder F39 ; Vitamin D deficiency E55.9 and Renal insufficiency N28.9 [facility] [address] [facility] [id number] [address] [place] [id number] 03 Nov, 2019 Type 1 diabetes mellitus wit h other diabetic neurological complication E10.49 [facility] [address] [facility] [id number] [address] [place] [phone] Oct, Other chronic pain G89.29 [facility] [address] [facility] [id number] [address] [place] [id number] Oct, Type 1 diabetes mellitus wit h other diabetic neurological complication E10.49 [facility] [address] [facility] [id number] [address] [place] [phone] Oct, [facility] [address] [place] [id number] [address] [place] [phone] Aug, Type 1 diabetes mellitus wit h other diabetic neurological complication E10.49 [facility] [address] [facility] [id number] [address] [place] [id number] 14 Aug, 2019 Encounter for immunization Z 23 [facility] [address] [facility] [id number] [address] [place] [phone] 08 Aug, 2019 Vitamin D deficiency E55.9 [facility] [address] [facility] [id number] [address] [place] [id number] Jul, Type 1 diabetes mellitus wit h other diabetic neurological complication E10.49 [facility] [address] [facility] [id number] [address] [place] [phone] Jul, Type 1 diabetes mellitus wit h hyperglycemia E10.65 [facility] [address] [facility] [id number] [address] [place] [phone] Jun, Type 1 diabetes mellitus wit h other diabetic neurological complication E10.49 [facility] [address] [facility] [id number] [address] [place] [phone] May, [place] [address] [id number] [address] [place] [id number] May, [facility] [address] [id number] [address] [place] [id number] May, Other chronic pain G89.29 [facility] [address] [id number] [address] [place] [phone] May, [facility] [address] [id number] [address] [place] [id number] May, Type 1 diabetes mellitus wit h other diabetic neurological complication E10.49 [facility] [address] [id number] [address] [place] [id number] Apr, [facility] [address] [id number] [address] [place] [id number] Apr, Type 1 diabetes mellitus wit h other diabetic neurological complication E10.49 [facility] [address] [id number] [address] [place] [phone] Apr, Encounter for Medicare annua l wellness exam Z00.00 [facility] [address] [id number] [address] [place] [id number] March, Encounter for Medicare annua l wellness exam Z00.00 and Type 1 diabetes mellitus with other diabetic neurological complication E10.49 [facility] [address] [id number] [address] [place] [id number] Feb, Type 1 diabetes mellitus wit h other diabetic neurological complication E10.49 [facility] [address] [id number] [address] [place] [id number] Feb, Encounter for Medicare annua l wellness exam Z00.00 ; Mood disorder F39 ; Type 1 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 ; Hypertension, essential I10 and Chronic fatigue R53.82 [facility] [address] [id number] [address] [place] [phone] Jan, Type 1 diabetes mellitus wit h other diabetic neurological complication E10.49 [facility] [address] [id number] [address] [place] [address] Jan, [facility] [address] [id number] [address] [place] [phone] Jan, Other chronic pain G89.29 [facility] [address] [id number] [address] [place] [phone] 11 Dec, 2018 [facility] [address] [id number] [address] [place] [id number] 08 Dec, 2018 Type 1 diabetes mellitus wit h other diabetic neurological complication E10.49 [facility] [address] [id number] [address] [place] [id number] 05 Dec, 2018 Other chronic pain G89.29 [facility] [address] [id number] [address] [place] [id number] Nov, [facility] [address] [id number] [address] [place] [address] [id number] Nov, Caries K02.9 [facility] [address] [id number] [address] [place] [id number] Nov, Type 1 diabetes mellitus wit h other diabetic neurological complication E10.49 [facility] [address] [id number] [address] [place] [id number] Nov, Controlled diabetes mellitus type 1 without complications E10.9 ; Other chronic pain G89.29 and Pain in left knee M25.562 [facility] [address] [id number] [address] [place] [address] [id number] Oct, Dental examination Z01.20 [facility] [address] [id number] [address] [place] [id number] 14 Oct, 2018 Cutaneous abscess of unspeci fied foot L02.619 and Cellulitis of unspecified part of limb L03.119 [facility] [address] [id number] [address] [place] [id number] 11 Oct, 2018 [facility] [address] [id number] [address] [place] [id number] 10 Oct, 2018 Type 1 diabetes mellitus wit h other diabetic neurological complication E10.49 [facility] [address] [id number] [address] [place] [address] [id number] 06 Oct, 2018 Dental examination Z01.20 an d Caries K02.9 [facility] [address] [facility] [id number] [address] [place] [id number] 04 Oct, 2018 Cutaneous abscess of left fo ot L02.612 and Cellulitis of left lower limb L03.116 [facility] [address] [facility] [id number] [address] [place] [phone] 04 Oct, 2018 Dental examination Z01.20 an d Pain, dental K08.89 [facility] [address] [facility] [id number] [address] [place] [id number] Sep, Left foot pain M79.672 and L eft anterior knee pain M25.562 [facility] [address] [facility] [id number] [address] [place] [id number] Sep, Type 1 diabetes mellitus wit h other diabetic neurological complication E10.49 [facility] [address] [facility] [id number] [address] [place] [id number] Sep, [facility] [address] [facility] [id number] [address] [place] [id number] 11 Aug, 2018 Type 1 diabetes mellitus wit h other diabetic neurological complication E10.49 [facility] [address] [facility] [id number] [address] [place] [id number] 10 Aug, 2018 Encounter for immunization Z 23 [facility] [address] [facility] [id number] [address] [place] [id number] 05 Aug, 2018 Type 1 diabetes mellitus wit h hyperglycemia E10.65 [facility] [address] [facility] [id number] [address] [place] [id number] Jul, Type 1 diabetes mellitus wit h hyperglycemia E10.65 [facility] [address] [facility] [id number] [address] [place] [phone] Jul, [facility] [address] [id number] [address] [place] [phone] Jul, [facility] [address] [id number] [address] [place] [id number] Jul, Type 1 diabetes mellitus wit h other diabetic neurological complication E10.49 [facility] [address] [id number] [address] [place] [id number] Jul, Type 1 diabetes mellitus wit h other diabetic neurological complication E10.49 and Mood disorder F39 [facility] [address] [id number] [address] [place] [id number] Jun, [facility] [address] [id number] [address] [place] [id number] Jun, Type 1 diabetes mellitus wit h other diabetic neurological complication E10.49 and Chronic fatigue R53.82 [facility] [address] [id number] [address] [place] [id number] May, Type 1 diabetes mellitus wit h other diabetic neurological complication E10.49 [facility] [address] [id number] [address] [place] [phone] May, [facility] [address] [id number] [address] [place] [phone] May, [facility] [address] [id number] [address] [place] [address] Apr, [facility] [address] [id number] [address] [place] [id number] Apr, Type 1 diabetes mellitus wit h other diabetic neurological complication E10.49 [facility] [address] [id number] [address] [place] [phone] March, [facility] [address] [id number] [address] [place] [id number] Feb, [facility] [address] [id number] [address] [place] [id number] Feb, Type 1 diabetes mellitus wit h other diabetic neurological complication E10.49 ; Tobacco abuse Z72.0 and Tobacco abuse counseling Z71.6 [facility] [address] [facility] [id number] [address] [place] [id number] Jan, Type 1 diabetes mellitus wit h hyperglycemia E10.65 [facility] [address] [facility] [id number] [address] [place] [id number] Jan, [facility] [address] [facility] [id number] [address] [place] [id number] Dec, Tobacco abuse Z72.0 [facility] [address] [facility] [id number] [address] [place] [id number] Dec, Type 1 diabetes mellitus wit h hyperglycemia E10.65 [facility] [address] [facility] [id number] [address] [place] [phone] Dec, Type 1 diabetes mellitus wit h hyperglycemia E10.65 ; Tobacco abuse Z72.0 and Tobacco abuse counseling Z71.6 [facility] [address] [facility] [id number] [address] [place] [id number] Nov, Type 1 diabetes mellitus wit h hyperglycemia E10.65 [facility] [address] [facility] [id number] [address] [place] [id number] Oct, Type 1 diabetes mellitus wit h hyperglycemia E10.65 [facility] [address] [facility] [id number] [address] [place] [phone] Oct, Type 1 diabetes mellitus wit h hyperglycemia E10.65 [facility] [address] [facility] [id number] [address] [place] [id number] Sep, Type 1 diabetes mellitus wit h hyperglycemia E10.65 [facility] [address] [facility] [id number] [address] [place] [id number] Aug, Type 1 diabetes mellitus wit h hyperglycemia E10.65 [facility] [address] [facility] [id number] [address] [place] [phone] Aug, [facility] [address] [facility] [id number] [address] [place] [id number] Aug, Type 1 diabetes mellitus wit h hyperglycemia E10.65 [facility] [address] [id number] [address] [place] [phone] Aug, Encounter for immunization Z 23 [facility] [address] [id number] [address] [place] [id number] Aug, Type 1 diabetes mellitus wit h hyperglycemia E10.65 [facility] [address] [id number] [address] [place] [id number] Jul, Type 1 diabetes mellitus wit h hyperglycemia E10.65 [facility] [address] [id number] [address] [place] [phone] Jul, Type 1 diabetes mellitus wit h hyperglycemia E10.65 [facility] [address] [id number] [address] [place] [phone] May, Type 1 diabetes mellitus wit h hyperglycemia E10.65 [facility] [address] [id number] [address] [place] [id number] May, [facility] [address] [id number] [address] [place] [phone] Apr, [facility] [address] [id number] [address] [place] [address] Apr, Type 1 diabetes mellitus wit h hyperglycemia E10.65 [facility] [address] [id number] [address] [place] [phone] March, [facility] [address] [id number] [address] [place] [id number] March, [facility] [address] [id number] [address] [place] [address] Jan, [facility] [address] [id number] [address] [place] [phone] Jan, [facility] [address] [facility] [id number] [address] [place] [phone] Jan, Type 1 diabetes mellitus wit h diabetic polyneuropathy E10.42 [facility] [address] [id number] [address] [place] [address] Jan, Type 1 diabetes mellitus wit h hyperglycemia E10.65 ; Excessive cerumen in both ear canals H61.23 and Controlled diabetes mellitus type 1 without complications E10.9 [facility] [address] [id number] [address] [place] [id number] 16 Dec, 2016 [facility] [address] [id number] [address] [place] [id number] Dec, [facility] [address] [id number] [address] [place] [phone] Dec, [facility] [address] [id number] [address] [place] [address] Dec, [facility] [address] [id number] [address] [place] [phone] Nov, [facility] [address] [id number] [address] [place] [phone] Nov, [facility] [address] [id number] [address] [place] [address] Oct, Type 1 diabetes mellitus wit h hyperglycemia E10.65 [facility] [address] [id number] [address] [place] [phone] 17 Sep, 2016 [facility] [address] [id number] [address] [place] [id number] Sep, [facility] [address] [id number] [address] [place] [address] Sep, Controlled diabetes mellitus type 1 without complications E10.9 [facility] [address] [id number] [address] [place] [phone] Sep, [facility] [address] [id number] [address] [place] [id number] 13 Aug, 2016 Dental caries K02.9 [facility] [address] [id number] [address] [place] [id number] Aug, Type 1 diabetes mellitus wit h diabetic polyneuropathy E10.42 [facility] [address] [id number] [address] [place] [phone] Aug, [facility] [address] [id number] [address] [place] [id number] Aug, [facility] [address] [id number] [address] [place] [phone] Aug, [facility] [address] [id number] [address] [place] [id number] Jul, Type 1 diabetes mellitus wit h hyperglycemia E10.65 [facility] [address] [id number] [address] [place] [id number] Jul, Type 1 diabetes mellitus wit h hyperglycemia E10.65 ; Tooth pain K08.8 and Encounter for immunization Z23 [facility] [address] [id number] [address] [place] [address] [id number] Jul, 2016 Dental examination Z01.20 [facility] [address] [id number] [address] [place] [id number] Jul, [facility] [address] [address] [facility] [id number] [address] [place] [id number] Jul, [facility] [address] [facility] [id number] [address] [place] [phone] Jul, [facility] [address] [id number] [address] [place] [phone] Jun, [facility] [address] [id number] [address] [place] [phone] May, [facility] [address] [id number] [address] [place] [phone] Apr, [facility] [address] [id number] [address] [place] [id number] Apr, [facility] [address] [id number] [address] [place] [phone] Apr, [facility] [address] [id number] [address] [place] [phone] March, [facility] [address] [id number] [address] [place] [phone] March, [facility] [address] [id number] [address] [place] [phone] Feb, [facility] [address] [id number] [address] [place] [phone] Feb, [facility] [address] [id number] [address] [place] [id number] Feb, Type 1 diabetes mellitus wit h hyperglycemia E10.65 [facility] [address] [id number] [address] [place] [id number] Jan, [facility] [address] [id number] [address] [place] [phone] Jan, [facility] [address] [id number] [address] [place] [phone] Jan, [facility] [address] [id number] [address] [place] [phone] Jan, [facility] [address] [id number] [address] [place] [phone] Dec, [facility] [address] [id number] [address] [place] [id number] Nov, [facility] [address] [id number] [address] [place] [phone] Nov, [facility] [address] [id number] [address] [place] [id number] Oct, [facility] [address] [facility] [address] [facility] [id number] [address] [place] [id number] Oct, Type 1 diabetes mellitus wit h 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 ; Type 1 diabetes mellitus with hyperglycemia E10.65 ; Gastroparesis K31.84 and Esophageal stricture K22.2 [facility] [address] [id number] [address] [place] [phone] Oct, [facility] [address] [id number] [address] [place] [phone] Sep, [facility] [address] [facility] [id number] [address] [place] [id number] Sep, Type 1 diabetes mellitus wit h other diabetic neurological complication E10.49 [facility] [address] [id number] [address] [place] [id number] 22 Aug, 2015 Encounter for immunization Z 23 [facility] [address] [id number] [address] [place] [id number] 19 Aug, 2015 [facility] [address] [facility] [id number] [address] [place] [id number] Aug, [facility] [address] [id number] [address] [place] [id number] Jul, [facility] [address] [id number] [address] [place] [id number] Jul, [facility] [address] [id number] [address] [place] [phone] Jun, [facility] [address] [facility] [facility] [id number] [address] [place] [id number] Jun, [facility] [address] [id number] [address] [place] [id number] Jun, [facility] [address] [id number] [address] [place] [id number] May, [facility] [address] [id number] [address] [place] [id number] May, [facility] [address] [facility] [facility] [id number] [address] [place] [id number] May, Diabetes type 1, controlled 250.01 [facility] [address] [id number] [address] [place] [id number] May, [facility] [address] [id number] [address] [place] [id number] May, [facility] [address] [id number] [address] [place] [id number] Apr, Dental examination V72.2 [facility] [address] [id number] [address] [place] [phone] Apr, [facility] [address] [id number] [address] [place] [id number] Apr, [facility] [address] [id number] [address] [place] [id number] Apr, [facility] [address] [id number] [address] [place] [id number] Apr, [facility] [address] [id number] [address] [place] [id number] Apr, [facility] [address] [id number] [address] [place] [id number] Apr, Dental examination V72.2 [facility] [address] [id number] [address] [place] [id number] Apr, [facility] [address] [id number] [address] [place] [id number] Apr, [facility] [address] [address] [id number] [address] [place] [address] March, Diabetes mellitus type 1 250 .01 [facility] [address] [id number] [address] [place] [address] March, [facility] [address] [id number] [address] [place] [address] 14 Feb, 2015 [facility] [address] [id number] [address] [place] [address] 13 Feb, 2015 [facility] [address] [id number] [address] [place] [address] Jan, [facility] [address] [id number] [address] [place] [address], [place] [address] Jan, [facility] [address] [id number] [address] [place] [address], [place] [address] Jan, [facility] [address] [id number] [address] [place] [address], [place] [address] Jan, [facility] [address] [id number] [address] [place] [address], [place] [address] Dec, [facility] [address] [id number] [address] [place] [address], [place] [address] Dec, [facility] [address] [id number] [address] [place] [address], [place] [address] Nov, [facility] [address] [id number] [address] [place] [address], [place] [address] Nov, [facility] [address] [id number] [address] [place] [address], [place] [address] Nov, [facility] [address] [id number] [address] [place] [address], [place] [address] Nov, [facility] [address] [id number] [address] [place] [address], [place] [address] Nov, [facility] [address] [id number] [address] [place] [address], [place] [address] Nov, [facility] [address] [id number] [address] [place] [address], [place] [address] Nov, [facility] [address] [id number] [address] [place] [address], [place] [address] Oct, [facility] [address] [id number] [address] [place] [address], [place] [address] Oct, [facility] [address] [id number] [address] [place] [address], [place] [address] Sep, [facility] [address] [id number] [address] [place] [address], [place] [address] Aug, [facility] [address] [id number] [address] [place] [address], [place] [address] Aug, [facility] [address] [id number] [address] [place] [address], [place] [address] Aug, [facility] [address] [id number] [address] [place] [address], [place] [address] Aug, [facility] [address] [id number] [address] [place] [address], [place] [address] Aug, [facility] [address] [id number] [address] [place] [address], [place] [address] Aug, [facility] [address] [id number] [address] [place] [address], [place] [address] Aug, [facility] [address] [id number] [address] [place] [address], [place] [address] Aug, [facility] [address] [id number] [address] [place] [address], [place] [address] Aug, [facility] [address] [id number] [address] [place] [address], [place] [address] Aug, [facility] [address] [id number] [address] [place] [address], [place] [address] Aug, [facility] [address] [id number] [address] [place] [address], [place] [address] Aug, [facility] [address] [id number] [address] [place] [address], [place] [address] Aug, [facility] [address] [id number] [address] [place] [address], [place] [address] Aug, [facility] [address] [id number] [address] [place] [address], [place] [address] Jul, [facility] [address] [id number] [address] [place] [address], [place] [address] Jul, [facility] [address] [id number] [facility] [place] [address] Jul, [facility] [address] [id number] [address] [place] [address], [place] [address] Jul, [facility] [address] [id number] [address] [place] [address], [place] [address] Jun, [facility] [address] [id number] [address] [place] [address], [place] [address] Jun, [facility] [address] [id number] [address] [place] [address], [place] [address] Jun, [facility] [address] [id number] [address] [place] [address], [place] [address] Jun, [facility] [address] [id number] [address] [place] [address], [place] [address] May, [facility] [address] [id number] [address] [place] [address], [place] [address] May, [facility] [address] [id number] [address] [place] [address], [place] [address] May, [facility] [address] [id number] [address] [place] [address], [place] [address] May, [facility] [address] [id number] [address] [place] [address], [place] [address] May, [facility] [address] [id number] [address] [place] [address], [place] [address] May, [facility] [address] [id number] [address] [place] [address], [place] [address] May, [facility] [address] [id number] [address] [place] [address], [place] [address] May, [facility] [address] [id number] [address] [place] [address], [place] [address] May, [facility] [address] [id number] [address] [place] [address], [place] [address] May, [facility] [address] [id number] [facility] [place] [address] May, [facility] [address] [id number] [facility] [place] [address] May, [facility] [address] [id number] [facility] [place] [address] May, [facility] [address] [id number] [address] [place] [address], [place] [address] Apr, [facility] [address] [id number] [address] [place] [address], [place] [address] Apr, [facility] [address] [id number] [address] [place] [address], [place] [address] Apr, [facility] [address] [id number] [address] [place] [address], [place] [address] Apr, [facility] [address] [id number] [address] [place] [address], [place] [address] Apr, [facility] [address] [id number] [address] [place] [address], [place] [address] Apr, [facility] [address] [id number] [address] [place] [address], [place] [address] Apr, [facility] [address] [id number] [address] [place] [address], [place] [address] Apr, [facility] [address] [id number] [address] [place] [address], [place] [address] Apr, [facility] [address] [id number] [address] [place] [address], [place] [address] Apr, [facility] [address] [id number] [address] [place] [address], [place] [address] Apr, [facility] [address] [id number] [address] [place] [address], [place] [address] Apr, [facility] [address] [id number] [address] [place] [address], [place] [address] Apr, [facility] [address] [id number] [address] [place] [address], [place] [address] Apr, [facility] [address] [id number] [address] [place] [address], [place] [address] March, [facility] [address] [id number] [address] [place] [address], [place] [address] March, [facility] [address] [id number] [address] [place] [address], [place] [address] March, [facility] [address] [id number] [address] [place] [address], [place] [address] March, [facility] [address] [id number] [address] [place] [address], [place] [address] March, [facility] [address] [id number] [address] [place] [address], [place] [address] March, [facility] [address] [id number] [address] [place] [address], [place] [address] March, [facility] [address] [id number] [address] [place] [address], [place] [address] March, [facility] [address] [id number] [address] [place] [address], [place] [address] March, [facility] [address] [id number] [address] [place] [address], [place] [address] March, [facility] [address] [id number] [address] [place] [address], [place] [address] Feb, [facility] [address] [id number] [address] [place] [address], [place] [address] Feb, [facility] [address] [id number] [address] [place] [address], [place] [address] Feb, [facility] [address] [id number] [address] [place] [address], [place] [address] Feb, [facility] [address] [id number] [facility] [place] [address] Feb, [facility] [address] [id number] [address] [place] [address], [place] [address] Feb, [facility] [address] [id number] [address] [place] [address], [place] [address] Feb, [facility] [address] [id number] [address] [place] [address], [place] [address] Feb, [facility] [address] [id number] [address] [place] [address], [place] [address] Jan, [facility] [address] [id number] [address] [place] [address], [place] [address] Jan, [facility] [address] [id number] [address] [place] [address], [place] [address] Jan, [facility] [address] [id number] [address] [place] [address], [place] [address] Jan, [facility] [address] [id number] [address] [place] [address], [place] [address] Jan, [facility] [address] [id number] [address] [place] [address], [place] [address] Jan, [facility] [address] [id number] [address] [place] [address], [place] [address] Jan, [facility] [address] [id number] [address] [place] [address], [place] [address] Jan, [facility] [address] [id number] [address] [place] [address], [place] [address] Jan, [facility] [address] [id number] [address] [place] [address], [place] [address] Jan, [facility] [address] [id number] [address] [place] [address], [place] [address] Dec, [facility] [address] [id number] [address] [place] [address], [place] [address] Dec, [facility] [address] [id number] [address] [place] [address], [place] [address] Nov, [facility] [address] [id number] [address] [place] [address], [place] [address] Nov, [facility] [address] [id number] [address] [place] [address], [place] [address] Nov, [facility] [address] [id number] [address] [place] [address], [place] [address] Nov, [facility] [address] [id number] [address] [place] [address], [place] [address] Nov, [facility] [address] [id number] [address] [place] [address], [place] [address] Nov, [facility] [address] [id number] [address] [place] [address], [place] [address] Nov, [facility] [address] [id number] [address] [place] [address], [place] [address] Nov, [facility] [address] [id number] [address] [place] [address], [place] [address] Oct, [facility] [address] [id number] [address] [place] [address], [place] [address] Oct, [facility] [address] [id number] [address] [place] [address], [place] [address] Oct, [facility] [address] [id number] [address] [place] [address], [place] [address] Oct, [facility] [address] [id number] [address] [place] [address], [place] [address] Oct, [facility] [address] [id number] [address] [place] [address], [place] [address] Oct, [facility] [address] [id number] [address] [place] [address], [place] [address] Sep, [facility] [address] [id number] [address] [place] [address], [place] [address] Sep, [facility] [address] [id number] [address] [place] [address], [place] [address] Sep, [facility] [address] [id number] [address] [place] [address], [place] [address] Sep, [facility] [address] [id number] [address] [place] [address], [place] [address] Sep, [facility] [address] [id number] [address] [place] [address], [place] [address] Aug, [facility] [address] [id number] [address] [place] [address], [place] [address] Aug, [facility] [address] [id number] [address] [place] [address], [place] [address] Aug, [facility] [address] [id number] [address] [place] [address] Aug, [facility] [address] [id number] [address] [place] [address], [place] [address] Aug, [facility] [address] [id number] [address] [place] [address] Aug, [facility] [address] [id number] [address] [place] [address] Jul, [facility] [address] [id number] [address] [place] [address] Jul, [facility] [address] [id number] [address] [place] [address], [place] [address] Jul, [facility] [address] [id number] [address] [place] [address] Jun, [facility] [address] [id number] [address] [place] [address] Jun, [facility] [address] [id number] [address] [place] [address] May, [facility] [address] [id number] [address] [place] [address], [place] [address] May, [facility] [address] [id number] [address] [place] [address], [place] [address] Apr, [facility] [address] [id number] [address] [place] [address], [place] [address] Apr, [facility] [address] [id number] [address] [place] [address], [place] [address] Apr, [facility] [address] [id number] [address] [place] [address], [place] [address] March, [facility] [address] [id number] [address] [place] [address], [place] [address] Feb, [facility] [address] [id number] [address] [place] [address], [place] [address] Feb, [facility] [address] [id number] [address] [place] [address], [place] [address] Jan, [facility] [address] [id number] [address] [place] [address], [place] [address] Jan, [facility] [address] [id number] [address] [place] [address], [place] [address] Jan, [facility] [address] [id number] [address] [place] [address], [place] [address] 08 Jan, [address] [facility] [address] [id number] [address] [place] [address], [place] [address] Jan, [facility] [address] [id number] [address] [place] [address], [place] [address] Dec, [facility] [address] [id number] [address] [place] [address], [place] [address] Dec, [facility] [address] [id number] [address] [place] [address], [place] [address] Dec, [facility] [address] [id number] [address] [place] [address], [place] [address] Dec, [facility] [address] [id number] [address] [place] [address], [place] [address] Dec, [facility] [address] [id number] [address] [place] [address], [place] [address] Dec, [facility] [address] [place] [id number] Nov, [facility] [address] [id number] [address] [place] [address], [place] [address] Nov, [facility] [address] [id number] [address] [place] [address], [place] [address] Nov, [facility] [address] [id number] [address] [place] [address], [place] [address] Nov, [facility] [address] [id number] [address] [place] [address], [place] [address] Nov, [facility] [address] [id number] [address] [place] [address], [place] [address] Oct, [facility] [address] [id number] [address] [place] [address], [place] [address] Oct, [facility] [address] [id number] [address] [place] [address], [place] [address] Oct, [facility] [address] [id number] [address] [place] [address], [place] [address] Oct, [facility] [address] [id number] [address] [place] [address], [place] [address] Oct, [facility] [address] [id number] [address] [place] [address], [place] [address] Oct, [facility] [address] [id number] [address] [place] [address], [place] [address] Oct, [facility] [address] [id number] [address] [place] [address], [place] [address] Oct, [facility] [address] [id number] [address] [place] [address], [place] [address] Sep, [facility] [address] [id number] [address] [place] [address], [place] [address] Sep, [facility] [address] [id number] [address] [place] [address], [place] [address] Sep, [facility] [address] [id number] [address] [place] [address], [place] [address] Sep, [facility] [address] [id number] [address] [place] [address], [place] [address] Sep, [facility] [address] [id number] [address] [place] [address], [place] [address] Sep, [facility] [address] [id number] [address] [place] [address], [place] [address] Sep, [facility] [address] [id number] [address] [place] [address], [place] [address] Sep, [facility] [address] [id number] [address] [place] [address], [place] [address] Sep, [facility] [address] [id number] [address] [place] [address], [place] [address] Sep, [facility] [address] [id number] [address] [place] [address] Sep, [facility] [address] [id number] [address] [place] [address] Sep, [facility] [address] [id number] [address] [place] [address], [place] [address] Sep, [facility] [address] [id number] [address] [place] [address], [place] [address] Sep, [facility] [address] [id number] [address] [place] [address], [place] [address] Sep, [facility] [address] [id number] [facility] [place] [address] Sep, IMMUNIZATIONS Vaccine Route Administration Date Status influenza IIV3 (history) Unknown Aug 26, 2014 Adminis tered SOCIAL HISTORY Never Assessed REASON FOR VISIT PLAN OF CARE VITAL SIGNS Height 68 in 2014-08-26 Weight 168 lbs 2014-08-26 Temperature 97.6 degrees Fahrenheit 2014-08-26 Heart Rate 90 bpm 2014-08-26 Respiratory Rate 18 2014-08-26 Blood pressure systolic 94 mmHg 2014-08-26 Blood pressure diastolic 68 mmHg 2014-08-26 MEDICATIONS Unknown Medications RESULTS No Results PROCEDURES Procedure Date Ordered Result Body Site ADMN FLU VAC NO FEE SCHED SAME DAY Aug 26, 2014 INSTRUCTIONS MEDICATIONS ADMINISTERED No Known Medications MEDICAL (GENERAL) HISTORY Type Description Date Medical History hypertension Medical History type I diabetes Medical History chronic renal insufficiency Surgical History gastric pacemaker 2008 Hospitalization History nausea 2011
--- OUTSIDE RECORDS SUMMARY | 2020-04-17 21:17 | XMS REPORT ---
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 Active 55273533 Problem Other chronic pain G89.29 Active 8 8336185 Problem Hypertension, essential I10 Active 61811162 Problem Vitamin D deficiency E55.9 Active 77212836 Problem Mood disorder F39 Active 029339 05 Problem Type 1 diabetes mellitus with hyperglycemia E10.65 Active [id number] Problem Type 1 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 Active 35271358 Problem Chronic fatigue R53.82 Active 8422 9001 Problem Controlled diabetes mellitus type 1 without complications E10.9 Active [id number] ALLERGIES No Information ENCOUNTERS Encounter Location Date Diagnosis [facility] [address] [facility] [id number] [address] [place] [id number] Feb, Type 1 diabetes mellitus wit h other diabetic neurological complication E10.49 [facility] [address] [facility] [id number] [address] [place] [phone] Jan, Type 1 diabetes mellitus wit h other diabetic neurological complication E10.49 [facility] [address] [facility] [id number] [address] [place] [id number] Jan, Type 1 diabetes mellitus wit h other diabetic neurological complication E10.49 [facility] [address] [facility] [id number] [address] [place] [id number] 03 Dec, 2019 Type 1 diabetes mellitus wit h other diabetic neurological complication E10.49 [facility] [address] [facility] [id number] [address] [place] [id number] 13 Nov, 2019 Type 1 diabetes mellitus wit h diabetic polyneuropathy E10.42 ; Mood disorder F39 ; Vitamin D deficiency E55.9 and Renal insufficiency N28.9 [facility] [address] [facility] [id number] [address] [place] [id number] 03 Nov, 2019 Type 1 diabetes mellitus wit h other diabetic neurological complication E10.49 [facility] [address] [facility] [id number] [address] [place] [id number] Oct, Other chronic pain G89.29 [facility] [address] [facility] [id number] [address] [place] [phone] Oct, Type 1 diabetes mellitus wit h other diabetic neurological complication E10.49 [facility] [address] [facility] [id number] [address] [place] [phone] Oct, [facility] [address] [place] [id number] [address] [place] [id number] Aug, Type 1 diabetes mellitus wit h other diabetic neurological complication E10.49 [facility] [address] [facility] [id number] [address] [place] [id number] 14 Aug, 2019 Encounter for immunization Z 23 [facility] [address] [facility] [id number] [address] [place] [id number] 08 Aug, 2019 Vitamin D deficiency E55.9 [facility] [address] [facility] [id number] [address] [place] [id number] Jul, Type 1 diabetes mellitus wit h other diabetic neurological complication E10.49 [facility] [address] [facility] [id number] [address] [place] [id number] Jul, Type 1 diabetes mellitus wit h hyperglycemia E10.65 [facility] [address] [facility] [id number] [address] [place] [id number] Jun, Type 1 diabetes mellitus wit h other diabetic neurological complication E10.49 [facility] [address] [facility] [id number] [address] [place] [phone] May, [place] [id number] [id number] [address] [place] [phone] May, [facility] [address] [id number] [address] [place] [phone] May, Other chronic pain G89.29 [facility] [address] [id number] [address] [place] [id number] May, [facility] [address] [id number] [address] [place] [id number] May, Type 1 diabetes mellitus wit h other diabetic neurological complication E10.49 [facility] [address] [id number] [address] [place] [id number] Apr, [facility] [address] [id number] [address] [place] [id number] Apr, Type 1 diabetes mellitus wit h other diabetic neurological complication E10.49 [facility] [address] [id number] [address] [place] [id number] Apr, Encounter for Medicare annua l wellness exam Z00.00 [facility] [address] [id number] [address] [place] [id number] March, Encounter for Medicare annua l wellness exam Z00.00 and Type 1 diabetes mellitus with other diabetic neurological complication E10.49 [facility] [address] [id number] [address] [place] [id number] Feb, Type 1 diabetes mellitus wit h other diabetic neurological complication E10.49 [facility] [address] [id number] [address] [place] [id number] Feb, Encounter for Medicare annua l wellness exam Z00.00 ; Mood disorder F39 ; Type 1 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 ; Hypertension, essential I10 and Chronic fatigue R53.82 [facility] [address] [id number] [address] [place] [id number] Jan, Type 1 diabetes mellitus wit h other diabetic neurological complication E10.49 [facility] [address] [id number] [address] [place] [phone] Jan, [facility] [address] [id number] [address] [place] [phone] Jan, Other chronic pain G89.29 [facility] [address] [id number] [address] [place] [id number] 11 Dec, 2018 [facility] [address] [id number] [address] [place] [id number] 08 Dec, 2018 Type 1 diabetes mellitus wit h other diabetic neurological complication E10.49 [facility] [address] [id number] [address] [place] [id number] 05 Dec, 2018 Other chronic pain G89.29 [facility] [address] [id number] [address] [place] [id number] Nov, [facility] [address] [id number] [address] [place] [address] [id number] Nov, Caries K02.9 [facility] [address] [id number] [address] [place] [id number] Nov, Type 1 diabetes mellitus wit h other diabetic neurological complication E10.49 [facility] [address] [id number] [address] [place] [id number] Nov, Controlled diabetes mellitus type 1 without complications E10.9 ; Other chronic pain G89.29 and Pain in left knee M25.562 [facility] [address] [id number] [address] [place] [address] [id number] Oct, Dental examination Z01.20 [facility] [address] [id number] [address] [place] [id number] 14 Oct, 2018 Cutaneous abscess of unspeci fied foot L02.619 and Cellulitis of unspecified part of limb L03.119 [facility] [address] [id number] [address] [place] [id number] 11 Oct, 2018 [facility] [address] [id number] [address] [place] [id number] 10 Oct, 2018 Type 1 diabetes mellitus wit h other diabetic neurological complication E10.49 [facility] [address] [id number] [address] [place] [id number] 06 Oct, 2018 Dental examination Z01.20 an d Caries K02.9 [facility] [address] [facility] [id number] [address] [place] [id number] 04 Oct, 2018 Cutaneous abscess of left fo ot L02.612 and Cellulitis of left lower limb L03.116 [facility] [address] [facility] [id number] [address] [place] [id number] 04 Oct, 2018 Dental examination Z01.20 an d Pain, dental K08.[address] [facility] [address] [facility] [id number] [address] [place] [id number] Sep, Left foot pain M79.672 and L eft anterior knee pain M25.562 [facility] [address] [facility] [id number] [address] [place] [id number] Sep, Type 1 diabetes mellitus wit h other diabetic neurological complication E10.49 [facility] [address] [facility] [id number] [address] [place] [id number] Sep, [facility] [address] [facility] [id number] [address] [place] [id number] 11 Aug, 2018 Type 1 diabetes mellitus wit h other diabetic neurological complication E10.49 [facility] [address] [facility] [id number] [address] [place] [id number] 10 Aug, 2018 Encounter for immunization Z 23 [facility] [address] [facility] [id number] [address] [place] [id number] 05 Aug, 2018 Type 1 diabetes mellitus wit h hyperglycemia E10.65 [facility] [address] [facility] [id number] [address] [place] [id number] Jul, Type 1 diabetes mellitus wit h hyperglycemia E10.65 [facility] [address] [facility] [id number] [address] [place] [id number] Jul, [facility] [address] [id number] [address] [place] [id number] Jul, [facility] [address] [id number] [address] [place] [id number] Jul, Type 1 diabetes mellitus wit h other diabetic neurological complication E10.49 [facility] [address] [id number] [address] [place] [id number] Jul, Type 1 diabetes mellitus wit h other diabetic neurological complication E10.49 and Mood disorder F39 [facility] [address] [id number] [address] [place] [id number] Jun, [facility] [address] [id number] [address] [place] [phone] Jun, Type 1 diabetes mellitus wit h other diabetic neurological complication E10.49 and Chronic fatigue R53.82 [facility] [address] [id number] [address] [place] [phone] May, Type 1 diabetes mellitus wit h other diabetic neurological complication E10.49 [facility] [address] [id number] [address] [place] [id number] May, [facility] [address] [id number] [address] [place] [phone] May, [facility] [address] [id number] [address] [place] [id number] Apr, [facility] [address] [id number] [address] [place] [id number] Apr, Type 1 diabetes mellitus wit h other diabetic neurological complication E10.49 [facility] [address] [id number] [address] [place] [id number] March, [facility] [address] [id number] [address] [place] [id number] Feb, [facility] [address] [id number] [address] [place] [id number] Feb, Type 1 diabetes mellitus wit h other diabetic neurological complication E10.49 ; Tobacco abuse Z72.0 and Tobacco abuse counseling Z71.6 [facility] [address] [facility] [id number] [address] [place] [id number] Jan, Type 1 diabetes mellitus wit h hyperglycemia E10.65 [facility] [address] [facility] [id number] [address] [place] [id number] Jan, [facility] [address] [facility] [id number] [address] [place] [id number] Dec, Tobacco abuse Z72.0 [facility] [address] [facility] [id number] [address] [place] [id number] Dec, Type 1 diabetes mellitus wit h hyperglycemia E10.65 [facility] [address] [facility] [id number] [address] [place] [id number] Dec, Type 1 diabetes mellitus wit h hyperglycemia E10.65 ; Tobacco abuse Z72.0 and Tobacco abuse counseling Z71.6 [facility] [address] [facility] [id number] [address] [place] [phone] Nov, Type 1 diabetes mellitus wit h hyperglycemia E10.65 [facility] [address] [facility] [id number] [address] [place] [id number] Oct, Type 1 diabetes mellitus wit h hyperglycemia E10.65 [facility] [address] [facility] [id number] [address] [place] [id number] Oct, Type 1 diabetes mellitus wit h hyperglycemia E10.65 [facility] [address] [facility] [id number] [address] [place] [id number] Sep, Type 1 diabetes mellitus wit h hyperglycemia E10.65 [facility] [address] [facility] [id number] [address] [place] [id number] Aug, Type 1 diabetes mellitus wit h hyperglycemia E10.65 [facility] [address] [facility] [id number] [address] [place] [id number] Aug, [facility] [address] [facility] [id number] [address] [place] [id number] Aug, Type 1 diabetes mellitus wit h hyperglycemia E10.65 [facility] [address] [id number] [address] [place] [id number] Aug, Encounter for immunization Z 23 [facility] [address] [id number] [address] [place] [phone] Aug, Type 1 diabetes mellitus wit h hyperglycemia E10.65 [facility] [address] [id number] [address] [place] [id number] Jul, Type 1 diabetes mellitus wit h hyperglycemia E10.65 [facility] [address] [id number] [address] [place] [id number] Jul, Type 1 diabetes mellitus wit h hyperglycemia E10.65 [facility] [address] [id number] [address] [place] [id number] May, Type 1 diabetes mellitus wit h hyperglycemia E10.65 [facility] [address] [id number] [address] [place] [id number] May, [facility] [address] [id number] [address] [place] [id number] Apr, [facility] [address] [id number] [address] [place] [id number] Apr, Type 1 diabetes mellitus wit h hyperglycemia E10.65 [facility] [address] [id number] [address] [place] [id number] March, [facility] [address] [id number] [address] [place] [phone] March, [facility] [address] [id number] [address] [place] [id number] Jan, [facility] [address] [id number] [address] [place] [id number] Jan, [facility] [address] [facility] [id number] [address] [place] [id number] Jan, Type 1 diabetes mellitus wit h diabetic polyneuropathy E10.42 [facility] [address] [id number] [address] [place] [id number] Jan, Type 1 diabetes mellitus wit h hyperglycemia E10.65 ; Excessive cerumen in both ear canals H61.23 and Controlled diabetes mellitus type 1 without complications E10.9 [facility] [address] [id number] [address] [place] [phone] 16 Dec, 2016 [facility] [address] [id number] [address] [place] [phone] Dec, [facility] [address] [id number] [address] [place] [id number] Dec, [facility] [address] [id number] [address] [place] [id number] Dec, [facility] [address] [id number] [address] [place] [id number] Nov, [facility] [address] [id number] [address] [place] [id number] Nov, [facility] [address] [id number] [address] [place] [id number] Oct, Type 1 diabetes mellitus wit h hyperglycemia E10.65 [facility] [address] [id number] [address] [place] [id number] 17 Sep, 2016 [facility] [address] [id number] [address] [place] [id number] Sep, [facility] [address] [id number] [address] [place] [id number] Sep, Controlled diabetes mellitus type 1 without complications E10.9 [facility] [address] [id number] [address] [place] [id number] Sep, [facility] [address] [id number] [address] [place] [id number] 13 Aug, 2016 Dental caries K02.9 [facility] [address] [id number] [address] [place] [id number] Aug, Type 1 diabetes mellitus wit h diabetic polyneuropathy E10.42 [facility] [address] [id number] [address] [place] [phone] Aug, [facility] [address] [id number] [address] [place] [id number] Aug, [facility] [address] [id number] [address] [place] [id number] Aug, [facility] [address] [id number] [address] [place] [id number] Jul, Type 1 diabetes mellitus wit h hyperglycemia E10.65 [facility] [address] [id number] [address] [place] [id number] Jul, Type 1 diabetes mellitus wit h hyperglycemia E10.65 ; Tooth pain K08.8 and Encounter for immunization Z23 [facility] [address] [id number] [address] [place] [address] [id number] 08 Jul, 2016 Dental examination Z01.20 [facility] [address] [id number] [address] [place] [id number] Jul, [facility] [address] [facility] [id number] [address] [place] [id number] Jul, [facility] [address] [facility] [id number] [address] [place] [phone] Jul, [facility] [address] [id number] [address] [place] [id number] Jun, [facility] [address] [id number] [address] [place] [phone] May, [facility] [address] [id number] [address] [place] [phone] Apr, [facility] [address] [id number] [address] [place] [phone] Apr, [facility] [address] [id number] [address] [place] [id number] Apr, [facility] [address] [id number] [address] [place] [id number] March, [facility] [address] [id number] [address] [place] [id number] March, [facility] [address] [id number] [address] [place] [id number] Feb, [facility] [address] [id number] [address] [place] [phone] Feb, [facility] [address] [id number] [address] [place] [id number] Feb, Type 1 diabetes mellitus wit h hyperglycemia E10.65 [facility] [address] [id number] [address] [place] [id number] Jan, [facility] [address] [id number] [address] [place] [id number] Jan, [facility] [address] [id number] [address] [place] [phone] Jan, [facility] [address] [id number] [address] [place] [id number] Jan, [facility] [address] [id number] [address] [place] [id number] Dec, [facility] [address] [id number] [address] [place] [phone] Nov, [facility] [address] [id number] [address] [place] [id number] Nov, [facility] [address] [id number] [address] [place] [id number] Oct, [facility] [address] [facility] [id number] [address] [place] [id number] Oct, Type 1 diabetes mellitus wit h 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 ; Type 1 diabetes mellitus with hyperglycemia E10.65 ; Gastroparesis K31.84 and Esophageal stricture K22.2 [facility] [address] [id number] [address] [place] [phone] Oct, [facility] [address] [id number] [address] [place] [id number] Sep, [facility] [address] [facility] [id number] [address] [place] [id number] Sep, Type 1 diabetes mellitus wit h other diabetic neurological complication E10.49 [facility] [address] [id number] [address] [place] [id number] 22 Aug, 2015 Encounter for immunization Z 23 [facility] [address] [id number] [address] [place] [id number] 19 Aug, 2015 [facility] [address] [facility] [id number] [address] [place] [phone] Aug, [facility] [address] [id number] [address] [place] [id number] Jul, [facility] [address] [id number] [address] [place] [id number] Jul, [facility] [address] [id number] [address] [place] [phone] Jun, [facility] [address] [facility] [id number] [address] [place] [phone] Jun, [facility] [address] [id number] [address] [place] [phone] Jun, [facility] [address] [id number] [address] [place] [phone] May, [facility] [address] [id number] [address] [place] [phone] May, [facility] [address] [facility] [id number] [address] [place] [phone] May, Diabetes type 1, controlled 250.01 [facility] [address] [id number] [address] [place] [phone] May, [facility] [address] [id number] [address] [place] [address] May, [facility] [address] [id number] [address] [place] [id number] Apr, Dental examination V72.2 [facility] [address] [id number] [address] [place] [id number] Apr, [facility] [address] [id number] [address] [place] [id number] Apr, [facility] [address] [id number] [address] [place] [id number] Apr, [facility] [address] [id number] [address] [place] [id number] Apr, [facility] [address] [id number] [address] [place] [address] Apr, [facility] [address] [id number] [address] [place] [id number] Apr, Dental examination V72.2 [facility] [address] [id number] [address] [place] [id number] Apr, [facility] [address] [id number] [address] [place] [id number] Apr, [facility] [address] [id number] [address] [place] [id number] March, Diabetes mellitus type 1 250 .01 [facility] [address] [id number] [address] [place] [id number] March, [facility] [address] [id number] [address] [place] [address] 14 Feb, 2015 [facility] [address] [id number] [address] [place] [id number] 13 Feb, 2015 [facility] [address] [id number] [address] [place] [id number] Jan, [facility] [address] [id number] [address] [place] [address], [place] [address] Jan, [facility] [address] [id number] [address] [place] [address], [place] [address] Jan, [facility] [address] [id number] [address] [place] [address], [place] [address] Jan, [facility] [address] [id number] [address] [place] [address], [place] [address] Dec, [facility] [address] [id number] [address] [place] [address], [place] [address] Dec, [facility] [address] [id number] [address] [place] [address], [place] [address] Nov, [facility] [address] [id number] [address] [place] [address], [place] [address] Nov, [facility] [address] [id number] [address] [place] [address], [place] [address] Nov, [facility] [address] [id number] [address] [place] [address], [place] [address] Nov, [facility] [address] [id number] [address] [place] [address], [place] [address] Nov, [facility] [address] [id number] [address] [place] [address], [place] [address] Nov, [facility] [address] [id number] [address] [place] [address], [place] [address] Nov, [facility] [address] [id number] [address] [place] [address], [place] [address] Oct, [facility] [address] [id number] [address] [place] [address], [place] [address] Oct, [facility] [address] [id number] [address] [place] [address], [place] [address] Sep, [facility] [address] [id number] [address] [place] [address], [place] [address] Aug, [facility] [address] [id number] [address] [place] [address], [place] [address] Aug, [facility] [address] [id number] [address] [place] [address], [place] [address] Aug, [facility] [address] [id number] [address] [place] [address], [place] [address] Aug, [facility] [address] [id number] [address] [place] [address], [place] [address] Aug, [facility] [address] [id number] [address] [place] [address], [place] [address] Aug, [facility] [address] [id number] [address] [place] [address], [place] [address] Aug, [facility] [address] [id number] [address] [place] [address], [place] [address] Aug, [facility] [address] [id number] [address] [place] [address], [place] [address] Aug, [facility] [address] [id number] [address] [place] [address], [place] [address] Aug, [facility] [address] [id number] [address] [place] [address], [place] [address] Aug, [facility] [address] [id number] [address] [place] [address], [place] [address] Aug, [facility] [address] [id number] [address] [place] [address], [place] [address] Aug, [facility] [address] [id number] [address] [place] [address], [place] [address] Aug, [facility] [address] [id number] [address] [place] [address], [place] [address] Jul, [facility] [address] [id number] [address] [place] [address], [place] [address] Jul, [facility] [address] [id number] [facility] [place] [address] Jul, [facility] [address] [id number] [address] [place] [address], [place] [address] Jul, [facility] [address] [id number] [address] [place] [address], [place] [address] Jun, [facility] [address] [id number] [address] [place] [address], [place] [address] Jun, [facility] [address] [id number] [address] [place] [address], [place] [address] Jun, [facility] [address] [id number] [address] [place] [address], [place] [address] Jun, [facility] [address] [id number] [address] [place] [address], [place] [address] May, [facility] [address] [id number] [address] [place] [address], [place] [address] May, [facility] [address] [id number] [address] [place] [address], [place] [address] May, [facility] [address] [id number] [address] [place] [address], [place] [address] May, [facility] [address] [id number] [address] [place] [address], [place] [address] May, [facility] [address] [id number] [address] [place] [address], [place] [address] May, [facility] [address] [id number] [address] [place] [address], [place] [address] May, [facility] [address] [id number] [address] [place] [address], [place] [address] May, [facility] [address] [id number] [address] [place] [address], [place] [address] May, [facility] [address] [id number] [address] [place] [address], [place] [address] May, [facility] [address] [id number] [facility] [place] [address] May, [facility] [address] [id number] [facility] [place] [address] May, [facility] [address] [id number] [facility] [place] [address] May, [facility] [address] [id number] [address] [place] [address], [place] [address] Apr, [facility] [address] [id number] [address] [place] [address], [place] [address] Apr, [facility] [address] [id number] [address] [place] [address], [place] [address] Apr, [facility] [address] [id number] [address] [place] [address], [place] [address] Apr, [facility] [address] [id number] [address] [place] [address], [place] [address] Apr, [facility] [address] [id number] [address] [place] [address], [place] [address] Apr, [facility] [address] [id number] [address] [place] [address], [place] [address] Apr, [facility] [address] [id number] [address] [place] [address], [place] [address] Apr, [facility] [address] [id number] [address] [place] [address], [place] [address] Apr, [facility] [address] [id number] [address] [place] [address], [place] [address] Apr, [facility] [address] [id number] [address] [place] [address], [place] [address] Apr, [facility] [address] [id number] [address] [place] [address], [place] [address] Apr, [facility] [address] [id number] [address] [place] [address], [place] [address] Apr, [facility] [address] [id number] [address] [place] [address], [place] [address] Apr, [facility] [address] [id number] [address] [place] [address], [place] [address] March, [facility] [address] [id number] [address] [place] [address], [place] [address] March, [facility] [address] [id number] [address] [place] [address], [place] [address] March, [facility] [address] [id number] [address] [place] [address], [place] [address] March, [facility] [address] [id number] [address] [place] [address], [place] [address] March, [facility] [address] [id number] [address] [place] [address], [place] [address] March, [facility] [address] [id number] [address] [place] [address], [place] [address] March, [facility] [address] [id number] [address] [place] [address], [place] [address] March, [facility] [address] [id number] [address] [place] [address], [place] [address] March, [facility] [address] [id number] [address] [place] [address], [place] [address] March, [facility] [address] [id number] [address] [place] [address], [place] [address] Feb, [facility] [address] [id number] [address] [place] [address], [place] [address] Feb, [facility] [address] [id number] [address] [place] [address], [place] [address] Feb, [facility] [address] [id number] [address] [place] [address], [place] [address] Feb, [facility] [address] [id number] [facility] [place] [address] Feb, [facility] [address] [id number] [address] [place] [address], [place] [address] Feb, [facility] [address] [id number] [address] [place] [address], [place] [address] Feb, [facility] [address] [id number] [address] [place] [address], [place] [address] Feb, [facility] [address] [id number] [address] [place] [address], [place] [address] Jan, [facility] [address] [id number] [address] [place] [address], [place] [address] Jan, [facility] [address] [id number] [address] [place] [address], [place] [address] Jan, [facility] [address] [id number] [address] [place] [address], [place] [address] Jan, [facility] [address] [id number] [address] [place] [address], [place] [address] Jan, [facility] [address] [id number] [address] [place] [address], [place] [address] Jan, [facility] [address] [id number] [address] [place] [address], [place] [address] Jan, [facility] [address] [id number] [address] [place] [address], [place] [address] Jan, [facility] [address] [id number] [address] [place] [address], [place] [address] Jan, [facility] [address] [id number] [address] [place] [address], [place] [address] Jan, [facility] [address] [id number] [address] [place] [address], [place] [address] Dec, [facility] [address] [id number] [address] [place] [address], [place] [address] Dec, [facility] [address] [id number] [address] [place] [address], [place] [address] Nov, [facility] [address] [id number] [address] [place] [address], [place] [address] Nov, [facility] [address] [id number] [address] [place] [address], [place] [address] Nov, [facility] [address] [id number] [address] [place] [address], [place] [address] Nov, [facility] [address] [id number] [address] [place] [address], [place] [address] Nov, [facility] [address] [id number] [address] [place] [address], [place] [address] Nov, [facility] [address] [id number] [address] [place] [address], [place] [address] Nov, [facility] [address] [id number] [address] [place] [address], [place] [address] Nov, [facility] [address] [id number] [address] [place] [address], [place] [address] Oct, [facility] [address] [id number] [address] [place] [address], [place] [address] Oct, [facility] [address] [id number] [address] [place] [address], [place] [address] Oct, [facility] [address] [id number] [address] [place] [address], [place] [address] Oct, [facility] [address] [id number] [address] [place] [address], [place] [address] Oct, [facility] [address] [id number] [address] [place] [address], [place] [address] Oct, [facility] [address] [id number] [address] [place] [address], [place] [address] Sep, [facility] [address] [id number] [address] [place] [address], [place] [address] Sep, [facility] [address] [id number] [address] [place] [address], [place] [address] Sep, [facility] [address] [id number] [address] [place] [address], [place] [address] Sep, [facility] [address] [id number] [address] [place] [address], [place] [address] Sep, [facility] [address] [id number] [address] [place] [address], [place] [address] Aug, [facility] [address] [id number] [address] [place] [address], [place] [address] Aug, [facility] [address] [id number] [address] [place] [address], [place] [address] Aug, [facility] [address] [id number] [address] [place] [address] Aug, [facility] [address] [id number] [address] [place] [address], [place] [address] Aug, [facility] [address] [id number] [address] [place] [address] Aug, [facility] [address] [id number] [address] [place] [address] Jul, [facility] [address] [id number] [address] [place] [address] Jul, [facility] [address] [id number] [address] [place] [address], [place] [address] Jul, [facility] [address] [id number] [address] [place] [address] Jun, [facility] [address] [id number] [address] [place] [address] Jun, [facility] [address] [id number] [address] [place] [address] May, [facility] [address] [id number] [address] [place] [address], [place] [address] May, [facility] [address] [id number] [address] [place] [address], [place] [address] Apr, [facility] [address] [id number] [address] [place] [address], [place] [address] Apr, [facility] [address] [id number] [address] [place] [address], [place] [address] Apr, [facility] [address] [id number] [address] [place] [address], [place] [address] March, [facility] [address] [id number] [address] [place] [address], [place] [address] Feb, [facility] [address] [id number] [address] [place] [address], [place] [address] Feb, [facility] [address] [id number] [address] [place] [address], [place] [address] Jan, [facility] [address] [id number] [address] [place] [address], [place] [address] Jan, [facility] [address] [id number] [address] [place] [address], [place] [address] Jan, [facility] [address] [id number] [address] [place] [address], [place] [address] 08 Jan, 2013 [facility] [address] [id number] [address] [place] [address], [place] [address] Jan, [facility] [address] [id number] [address] [place] [address], [place] [address] Dec, [facility] [address] [id number] [address] [place] [address], [place] [address] Dec, [facility] [address] [id number] [address] [place] [address], [place] [address] Dec, [facility] [address] [id number] [address] [place] [address], [place] [address] Dec, [facility] [address] [id number] [address] [place] [address], [place] [address] Dec, [facility] [address] [id number] [address] [place] [address], [place] [address] Dec, [facility] [address] [place] [id number] Nov, [facility] [address] [id number] [address] [place] [address], [place] [address] Nov, [facility] [address] [id number] [address] [place] [address], [place] [address] Nov, [facility] [address] [id number] [address] [place] [address], [place] [address] Nov, [facility] [address] [id number] [address] [place] [address], [place] [address] Nov, [facility] [address] [id number] [address] [place] [address], [place] [address] Oct, [facility] [address] [id number] [address] [place] [address], [place] [address] Oct, [facility] [address] [id number] [address] [place] [address], [place] [address] Oct, [facility] [address] [id number] [address] [place] [address], [place] [address] Oct, [facility] [address] [id number] [address] [place] [address], [place] [address] Oct, [facility] [address] [id number] [address] [place] [address], [place] [address] Oct, [facility] [address] [id number] [address] [place] [address], [place] [address] Oct, [facility] [address] [id number] [address] [place] [address], [place] [address] Oct, [facility] [address] [id number] [address] [place] [address], [place] [address] Sep, [facility] [address] [id number] [address] [place] [address], [place] [address] Sep, [facility] [address] [id number] [address] [place] [address], [place] [address] Sep, [facility] [address] [id number] [address] [place] [address], [place] [address] Sep, [facility] [address] [id number] [address] [place] [address], [place] [address] Sep, [facility] [address] [id number] [address] [place] [address], [place] [address] Sep, [facility] [address] [id number] [address] [place] [address], [place] [address] Sep, [facility] [address] [id number] [address] [place] [address], [place] [address] Sep, [facility] [address] [id number] [address] [place] [address], [place] [address] Sep, [facility] [address] [id number] [address] [place] [address], [place] [address] Sep, [facility] [address] [id number] [address] [place] [id number] Sep, [facility] [address] [id number] [address] [place] [id number] Sep, [facility] [address] [id number] [address] [place] [address], [place] [address] Sep, [facility] [address] [id number] [address] [place] [address], [place] [address] Sep, [facility] [address] [id number] [address] [place] [address], [place] [address] Sep, [facility] [address] [id number] [facility] [place] [address] Sep, IMMUNIZATIONS No Known Immunizations SOCIAL HISTORY [...]
--- OUTSIDE RECORDS SUMMARY | 2020-04-17 21:18 | XMS REPORT ---
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 Active 91036161 Problem Other chronic pain G89.29 Active 8 6905960 Problem Hypertension, essential I10 Active 54287023 Problem Vitamin D deficiency E55.9 Active 30497787 Problem Mood disorder F39 Active 622205 05 Problem Type 1 diabetes mellitus with hyperglycemia E10.65 Active [id number] Problem Type 1 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 Active 91761914 Problem Chronic fatigue R53.82 Active 8422 9001 Problem Controlled diabetes mellitus type 1 without complications E10.9 Active 78790929 ALLERGIES No Information ENCOUNTERS Encounter Location Date Diagnosis [place] [address] [address] [place] [id number] [address] [place] [phone] 02 Feb, 2020 Type 1 diabetes mellitus wit h other diabetic neurological complication E10.49 [place] [id number] [place] [id number] Jan, Type 1 diabetes mellitus wit h other diabetic neurological complication E10.49 [place] [address] [place] [id number] [address] [place] [id number] Jan, Type 1 diabetes mellitus wit h other diabetic neurological complication E10.49 [place] [address] [place] [id number] [address] [place] [id number] 03 Dec, 2019 Type 1 diabetes mellitus wit h other diabetic neurological complication E10.49 [place] [address] [place] [id number] [address] [place] [id number] Nov, Type 1 diabetes mellitus wit h diabetic polyneuropathy E10.42 ; Mood disorder F39 ; Vitamin D deficiency E55.9 and Renal insufficiency N28.9 [facility] [address] [facility] [id number] [address] [place] [id number] Nov, Type 1 diabetes mellitus wit h other diabetic neurological complication E10.49 [facility] [address] [facility] [id number] [address] [place] [id number] Oct, Other chronic pain G89.29 [facility] [address] [facility] [id number] [address] [place] [id number] Oct, Type 1 diabetes mellitus wit h other diabetic neurological complication E10.49 [facility] [address] [place] [id number] [address] [place] [id number] Oct, [facility] [address] [place] [id number] [address] [place] [id number] Aug, Type 1 diabetes mellitus wit h other diabetic neurological complication E10.49 [facility] [address] [place] [id number] [address] [place] [id number] 14 Aug, 2019 Encounter for immunization Z 23 [facility] [address] [place] [id number] [address] [place] [id number] 08 Aug, 2019 Vitamin D deficiency E55.9 [facility] [address] [facility] [id number] [address] [place] [id number] Jul, Type 1 diabetes mellitus wit h other diabetic neurological complication E10.49 [facility] [address] [facility] [id number] [address] [place] [id number] Jul, Type 1 diabetes mellitus wit h hyperglycemia E10.65 [facility] [address] [facility] [id number] [address] [place] [id number] Jun, Type 1 diabetes mellitus wit h other diabetic neurological complication E10.49 [facility] [address] [facility] [id number] [address] [place] [id number] May, [facility] [address] [place] [id number] [address] [place] [id number] May, [facility] [address] [id number] [address] [place] [id number] May, Other chronic pain G89.29 [facility] [address] [id number] [address] [place] [id number] May, [facility] [address] [id number] [address] [place] [id number] May, Type 1 diabetes mellitus wit h other diabetic neurological complication E10.49 [facility] [address] [id number] [address] [place] [id number] Apr, [facility] [address] [id number] [address] [place] [id number] Apr, Type 1 diabetes mellitus wit h other diabetic neurological complication E10.49 [facility] [address] [id number] [address] [place] [id number] Apr, Encounter for Medicare annua l wellness exam Z00.00 [facility] [address] [id number] [address] [place] [id number] March, Encounter for Medicare annua l wellness exam Z00.00 and Type 1 diabetes mellitus with other diabetic neurological complication E10.49 [facility] [address] [id number] [address] [place] [id number] Feb, Type 1 diabetes mellitus wit h other diabetic neurological complication E10.49 [facility] [address] [id number] [address] [place] [id number] Feb, Encounter for Medicare annua l wellness exam Z00.00 ; Mood disorder F39 ; Type 1 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 ; Hypertension, essential I10 and Chronic fatigue R53.82 [facility] [address] [id number] [address] [place] [id number] Jan, Type 1 diabetes mellitus wit h other diabetic neurological complication E10.49 [facility] [address] [id number] [address] [place] [id number] Jan, [facility] [address] [id number] [address] [place] [id number] Jan, Other chronic pain G89.29 [facility] [address] [id number] [address] [place] [id number] 11 Dec, 2018 [facility] [address] [facility] [id number] [address] [place] [id number] 08 Dec, 2018 Type 1 diabetes mellitus wit h other diabetic neurological complication E10.49 [facility] [address] [id number] [address] [place] [id number] 05 Dec, 2018 Other chronic pain G89.29 [facility] [address] [id number] [address] [place] [id number] Nov, [facility] [address] [id number] [address] [place] [address] [id number] Nov, Caries K02.9 [facility] [address] [facility] [id number] [address] [place] [id number] Nov, Type 1 diabetes mellitus wit h other diabetic neurological complication E10.49 [facility] [address] [facility] [id number] [address] [place] [id number] Nov, Controlled diabetes mellitus type 1 without complications E10.9 ; Other chronic pain G89.29 and Pain in left knee M25.562 [facility] [address] [id number] [address] [place] [address] [id number] Oct, Dental examination Z01.20 [facility] [address] [id number] [address] [place] [id number] 14 Oct, 2018 Cutaneous abscess of unspeci fied foot L02.619 and Cellulitis of unspecified part of limb L03.119 [facility] [address] [id number] [address] [place] [id number] 11 Oct, 2018 [facility] [address] [facility] [id number] [address] [place] [id number] Oct, Type 1 diabetes mellitus wit h other diabetic neurological complication E10.49 [facility] [address] [id number] [address] [place] [address] [id number] 06 Oct, 2018 Dental examination Z01.20 an d Caries K02.9 [facility] [address] [facility] [id number] [address] [place] [id number] 04 Oct, 2018 Cutaneous abscess of left fo ot L02.612 and Cellulitis of left lower limb L03.116 [facility] [address] [facility] [id number] [address] [place] [id number] 04 Oct, 2018 Dental examination Z01.20 an d Pain, dental K08.89 [facility] [address] [facility] [id number] [address] [place] [id number] Sep, Left foot pain M79.672 and L eft anterior knee pain M25.562 [facility] [address] [facility] [id number] [address] [place] [id number] Sep, Type 1 diabetes mellitus wit h other diabetic neurological complication E10.49 [facility] [address] [facility] [id number] [address] [place] [id number] Sep, [facility] [address] [facility] [id number] [address] [place] [id number] 11 Aug, 2018 Type 1 diabetes mellitus wit h other diabetic neurological complication E10.49 [facility] [address] [facility] [id number] [address] [place] [id number] 10 Aug, 2018 Encounter for immunization Z 23 [facility] [address] [facility] [id number] [address] [place] [id number] 05 Aug, 2018 Type 1 diabetes mellitus wit h hyperglycemia E10.65 [facility] [address] [facility] [id number] [address] [place] [id number] Jul, Type 1 diabetes mellitus wit h hyperglycemia E10.65 [facility] [address] [facility] [id number] [address] [place] [id number] Jul, [facility] [address] [facility] [id number] [address] [place] [id number] Jul, [facility] [address] [id number] [address] [place] [id number] Jul, Type 1 diabetes mellitus wit h other diabetic neurological complication E10.49 [facility] [address] [id number] [address] [place] [id number] Jul, Type 1 diabetes mellitus wit h other diabetic neurological complication E10.49 and Mood disorder F39 [facility] [address] [id number] [address] [place] [id number] Jun, [facility] [address] [facility] [id number] [address] [place] [id number] Jun, Type 1 diabetes mellitus wit h other diabetic neurological complication E10.49 and Chronic fatigue R53.82 [facility] [address] [id number] [address] [place] [id number] May, Type 1 diabetes mellitus wit h other diabetic neurological complication E10.49 [facility] [address] [id number] [address] [place] [id number] May, [facility] [address] [id number] [address] [place] [id number] May, [facility] [address] [facility] [id number] [address] [place] [id number] Apr, [facility] [address] [facility] [id number] [address] [place] [id number] Apr, Type 1 diabetes mellitus wit h other diabetic neurological complication E10.49 [facility] [address] [id number] [address] [place] [id number] March, [facility] [address] [id number] [address] [place] [id number] Feb, [facility] [address] [facility] [id number] [address] [place] [id number] Feb, Type 1 diabetes mellitus wit h other diabetic neurological complication E10.49 ; Tobacco abuse Z72.0 and Tobacco abuse counseling Z71.6 [facility] [address] [facility] [id number] [address] [place] [id number] Jan, Type 1 diabetes mellitus wit h hyperglycemia E10.65 [facility] [address] [facility] [id number] [address] [place] [id number] Jan, [facility] [address] [facility] [id number] [address] [place] [id number] Dec, Tobacco abuse Z72.0 [facility] [address] [facility] [id number] [address] [place] [id number] Dec, Type 1 diabetes mellitus wit h hyperglycemia E10.65 [facility] [address] [facility] [id number] [id number] Dec, Type 1 diabetes mellitus wit h hyperglycemia E10.65 ; Tobacco abuse Z72.0 and Tobacco abuse counseling Z71.6 [facility] [address] [facility] [id number] [address] [place] [id number] Nov, Type 1 diabetes mellitus wit h hyperglycemia E10.65 [facility] [address] [facility] [id number] [address] [place] [id number] Oct, Type 1 diabetes mellitus wit h hyperglycemia E10.65 [facility] [address] [facility] [id number] [address] [place] [id number] Oct, Type 1 diabetes mellitus wit h hyperglycemia E10.65 [facility] [id number] [place] [id number] Sep, Type 1 diabetes mellitus wit h hyperglycemia E10.65 [facility] [address] [facility] [id number] [address] [place] [id number] Aug, Type 1 diabetes mellitus wit h hyperglycemia E10.65 [facility] [address] [facility] [id number] [address] [place] [id number] Aug, [facility] [address] [facility] [id number] [address] [place] [id number] Aug, Type 1 diabetes mellitus wit h hyperglycemia E10.65 [facility] [address] [id number] [address] [place] [id number] 12 Aug, 2017 Encounter for immunization Z 23 [facility] [address] [id number] [address] [place] [id number] Aug, Type 1 diabetes mellitus wit h hyperglycemia E10.65 [facility] [address] [facility] [id number] [address] [place] [id number] Jul, Type 1 diabetes mellitus wit h hyperglycemia E10.65 [facility] [address] [id number] [address] [place] [id number] Jul, Type 1 diabetes mellitus wit h hyperglycemia E10.65 [facility] [address] [id number] [address] [place] [id number] May, Type 1 diabetes mellitus wit h hyperglycemia E10.65 [facility] [address] [id number] [address] [place] [id number] May, [facility] [address] [id number] [address] [place] [id number] Apr, [facility] [address] [id number] [address] [place] [id number] Apr, Type 1 diabetes mellitus wit h hyperglycemia E10.65 [facility] [address] [id number] [address] [place] [id number] March, [facility] [address] [id number] [address] [place] [id number] March, [facility] [address] [id number] [address] [place] [id number] Jan, [facility] [address] [id number] [address] [place] [id number] Jan, [facility] [address] [facility] [id number] [address] [place] [id number] Jan, Type 1 diabetes mellitus wit h diabetic polyneuropathy E10.42 [facility] [address] [id number] [address] [place] [id number] Jan, Type 1 diabetes mellitus wit h hyperglycemia E10.65 ; Excessive cerumen in both ear canals H61.23 and Controlled diabetes mellitus type 1 without complications E10.9 [facility] [address] [id number] [address] [place] [id number] 16 Dec, 2016 [facility] [address] [id number] [address] [place] [id number] Dec, [facility] [address] [id number] [address] [place] [id number] Dec, [facility] [address] [id number] [address] [place] [id number] Dec, [facility] [address] [facility] [id number] [address] [place] [id number] Nov, [facility] [address] [id number] [address] [place] [id number] Nov, [facility] [address] [id number] [address] [place] [id number] Oct, Type 1 diabetes mellitus wit h hyperglycemia E10.65 [facility] [address] [id number] [address] [place] [id number] Sep, [facility] [address] [facility] [id number] [address] [place] [id number] Sep, [facility] [address] [facility] [id number] [address] [place] [id number] Sep, Controlled diabetes mellitus type 1 without complications E10.9 [facility] [address] [id number] [address] [place] [id number] Sep, [facility] [address] [id number] [address] [place] [id number] Aug, Dental caries K02.9 [facility] [address] [facility] [id number] [address] [place] [id number] Aug, Type 1 diabetes mellitus wit h diabetic polyneuropathy E10.42 [facility] [address] [id number] [address] [place] [id number] Aug, [facility] [address] [id number] [address] [place] [id number] Aug, [facility] [address] [id number] [address] [place] [id number] Aug, [facility] [address] [id number] [address] [place] [id number] Jul, Type 1 diabetes mellitus wit h hyperglycemia E10.65 [facility] [address] [id number] [address] [place] [id number] Jul, Type 1 diabetes mellitus wit h hyperglycemia E10.65 ; Tooth pain K08.8 and Encounter for immunization Z23 [facility] [address] [id number] [address] [place] [address] [id number] 08 Jul, 2016 Dental examination Z01.20 [facility] [address] [id number] [address] [place] [id number] Jul, [facility] [address] [id number] [address] [place] [id number] Jul, [facility] [address] [id number] [address] [place] [id number] Jul, [facility] [address] [id number] [address] [place] [id number] Jun, [facility] [address] [id number] [address] [place] [id number] May, [facility] [address] [id number] [address] [place] [id number] Apr, [facility] [address] [id number] [address] [place] [id number] Apr, [facility] [address] [id number] [address] [place] [id number] Apr, [facility] [address] [id number] [address] [place] [id number] March, [facility] [address] [id number] [address] [place] [id number] March, [facility] [address] [facility] [id number] [address] [place] [id number] Feb, [facility] [address] [facility] [id number] [address] [place] [id number] Feb, [facility] [address] [id number] [address] [place] [id number] Feb, Type 1 diabetes mellitus wit h hyperglycemia E10.65 [facility] [address] [facility] [id number] [address] [place] [id number] Jan, [facility] [address] [facility] [id number] [address] [place] [id number] Jan, [facility] [address] [facility] [id number] [address] [place] [id number] Jan, [facility] [address] [facility] [id number] [address] [place] [id number] Jan, [facility] [address] [facility] [id number] [address] [place] [id number] Dec, [facility] [address] [facility] [id number] [address] [place] [id number] Nov, [facility] [address] [facility] [id number] [address] [place] [id number] Nov, [facility] [address] [facility] [id number] [address] [place] [id number] Oct, [facility] [address] [facility] [id number] [address] [place] [id number] Oct, Type 1 diabetes mellitus wit h 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 ; Type 1 diabetes mellitus with hyperglycemia E10.65 ; Gastroparesis K31.84 and Esophageal stricture K22.2 [facility] [address] [id number] [address] [place] [id number] Oct, [facility] [address] [id number] [address] [place] [id number] Sep, [facility] [address] [id number] [address] [place] [id number] Sep, Type 1 diabetes mellitus wit h other diabetic neurological complication E10.49 [facility] [address] [id number] [address] [place] [id number] Aug, Encounter for immunization Z 23 [facility] [address] [id number] [address] [place] [id number] Aug, [facility] [address] [id number] [address] [place] [id number] Aug, [facility] [address] [id number] [address] [place] [id number] Jul, [facility] [address] [id number] [address] [place] [id number] Jul, [facility] [address] [id number] [address] [place] [id number] Jun, [facility] [address] [id number] [address] [place] [id number] Jun, [facility] [address] [id number] [address] [place] [id number] Jun, [facility] [address] [id number] [address] [place] [id number] May, [facility] [address] [id number] [address] [place] [id number] May, [facility] [address] [id number] [address] [place] [id number] May, Diabetes type 1, controlled 250.01 [facility] [address] [id number] [address] [place] [id number] May, [facility] [address] [id number] [address] [place] [id number] May, [facility] [address] [id number] [address] [place] [address] [id number] Apr, Dental examination V72.2 [facility] [address] [id number] [address] [place] [id number] Apr, [facility] [address] [id number] [address] [place] [id number] Apr, [facility] [address] [id number] [address] [place] [id number] Apr, [facility] [address] [id number] [address] [place] [id number] Apr, [facility] [address] [id number] [address] [place] [phone] Apr, [facility] [address] [id number] [address] [place] [id number] Apr, Dental examination V72.2 [facility] [address] [id number] [address] [place] [id number] Apr, [facility] [address] [id number] [address] [place] [id number] Apr, [facility] [address] [id number] [address] [place] [phone] March, Diabetes mellitus type 1 250 .01 [facility] [facility] [address] [id number] [address] [place] [id number] March, [facility] [address] [id number] [address] [place] [id number] Feb, [facility] [address] [id number] [address] [place] [id number] Feb, [facility] [address] [id number] [address] [place] [phone] Jan, [facility] [address] [id number] [address] [place] [address], [place] [address] Jan, [facility] [address] [id number] [address] [place] [address], [place] [address] Jan, [facility] [address] [id number] [address] [place] [address], [place] [address] Jan, [facility] [address] [id number] [address] [place] [address], [place] [address] Dec, [facility] [address] [id number] [address] [place] [address], [place] [address] Dec, [facility] [address] [id number] [address] [place] [address], [place] [address] Nov, [facility] [address] [id number] [address] [place] [address], [place] [address] Nov, [facility] [address] [id number] [address] [place] [address], [place] [address] Nov, [facility] [address] [id number] [address] [place] [address], [place] [address] Nov, [facility] [address] [id number] [address] [place] [address], [place] [address] Nov, [facility] [address] [id number] [address] [place] [address], [place] [address] Nov, [facility] [address] [id number] [address] [place] [address], [place] [address] Nov, [facility] [address] [id number] [address] [place] [address], [place] [address] Oct, [facility] [address] [id number] [address] [place] [address], [place] [address] Oct, [facility] [address] [id number] [address] [place] [address], [place] [address] Sep, [facility] [address] [id number] [address] [place] [address], [place] [address] Aug, [facility] [address] [id number] [address] [place] [address], [place] [address] Aug, [facility] [address] [id number] [address] [place] [address], [place] [address] Aug, [facility] [address] [id number] [address] [place] [address], [place] [address] Aug, [facility] [address] [id number] [address] [place] [address], [place] [address] Aug, [facility] [address] [id number] [address] [place] [address], [place] [address] Aug, [facility] [address] [id number] [address] [place] [address], [place] [address] Aug, [facility] [address] [id number] [address] [place] [address], [place] [address] Aug, [facility] [address] [id number] [address] [place] [address], [place] [address] Aug, [facility] [address] [id number] [address] [place] [address], [place] [address] Aug, [facility] [address] [id number] [address] [place] [phone] Aug, [facility] [address] [id number] [address] [place] [address] Aug, [facility] [address] [id number] [address] [place] [address] Aug, [facility] [address] [id number] [address] [place] [address] Aug, [facility] [address] [id number] [address] [place] [address] Jul, [facility] [address] [id number] [address] [place] [phone] Jul, [facility] [address] [id number] [address] [place] [address] Jul, [facility] [address] [id number] [address] [place] [address], [place] [address] Jul, [facility] [address] [id number] [address] [place] [address], [place] [address] Jun, [facility] [address] [id number] [address] [place] [address], [place] [address] Jun, [facility] [address] [id number] [address] [place] [address], [place] [address] Jun, [facility] [address] [id number] [address] [place] [address], [place] [address] Jun, [facility] [address] [id number] [address] [place] [address], [place] [address] May, [facility] [address] [id number] [address] [place] [address], [place] [address] May, [facility] [address] [id number] [address] [place] [address], [place] [address] May, [facility] [address] [id number] [address] [place] [address], [place] [address] May, [facility] [address] [id number] [address] [place] [address], [place] [address] May, [facility] [address] [id number] [address] [place] [address], [place] [address] May, [facility] [address] [id number] [address] [place] [address], [place] [address] May, [facility] [address] [id number] [address] [place] [address], [place] [address] May, [facility] [address] [id number] [address] [place] [address], [place] [address] May, [facility] [address] [id number] [address] [place] [address], [place] [address] May, [facility] [address] [id number] [facility] [address] May, [facility] [address] [id number] [facility] [address] May, [facility] [address] [id number] [facility] [address] May, [facility] [address] [id number] [facility] [address] Apr, [facility] [address] [id number] [facility] [address] Apr, [facility] [address] [id number] [address] [place] [address], [place] [address] Apr, [facility] [address] [id number] [address] [place] [address], [place] [address] Apr, [facility] [address] [id number] [address] [place] [address], [place] [address] Apr, [facility] [address] [id number] [address] [place] [address], [place] [address] Apr, [facility] [address] [id number] [address] [place] [address], [place] [address] Apr, [facility] [address] [id number] [address] [place] [address], [place] [address] Apr, [facility] [address] [id number] [address] [place] [address], [place] [address] Apr, [facility] [address] [id number] [address] [place] [address], [place] [address] Apr, [facility] [address] [id number] [address] [place] [address], [place] [address] Apr, [facility] [address] [id number] [address] [place] [address], [place] [address] Apr, [facility] [address] [id number] [address] [place] [address], [place] [address] Apr, [facility] [address] [id number] [address] [place] [address], [place] [address] Apr, [facility] [address] [id number] [address] [place] [address], [place] [address] March, [facility] [address] [id number] [address] [place] [address], [place] [address] March, [facility] [address] [id number] [address] [place] [address], [place] [address] March, [facility] [address] [id number] [address] [place] [address], [place] [address] March, [facility] [address] [id number] [address] [place] [address], [place] [address] March, [facility] [address] [id number] [address] [place] [address], [place] [address] March, [facility] [address] [id number] [address] [place] [address], [place] [address] March, [facility] [address] [id number] [address] [place] [address], [place] [address] March, [facility] [address] [id number] [address] [place] [address], [place] [address] March, [facility] [address] [id number] [address] [place] [address], [place] [address] March, [facility] [address] [id number] [address] [place] [address], [place] [address] Feb, [facility] [address] [id number] [address] [place] [address], [place] [address] Feb, [facility] [address] [id number] [address] [place] [address], [place] [address] Feb, [facility] [address] [id number] [address] [place] [address], [place] [address] Feb, [facility] [address] [id number] [facility] [address] 10 Feb, 2014 [facility] [address] [id number] [address] [place] [address], [place] [address] 10 Feb, 2014 [facility] [address] [id number] [facility] [address] Feb, [facility] [address] [id number] [address] [place] [address], [place] [address] Feb, [facility] [address] [id number] [address] [place] [address], [place] [address] Jan, [facility] [address] [id number] [address] [place] [address], [place] [address] Jan, [facility] [address] [id number] [address] [place] [address], [place] [address] Jan, [facility] [address] [id number] [address] [place] [address], [place] [address] Jan, [facility] [address] [id number] [address] [place] [address], [place] [address] Jan, [facility] [address] [id number] [address] [place] [address], [place] [address] Jan, [facility] [address] [id number] [address] [place] [address], [place] [address] Jan, [facility] [address] [id number] [address] [place] [address], [place] [address] Jan, [facility] [address] [id number] [address] [place] [address], [place] [address] Jan, [facility] [address] [id number] [address] [place] [address], [place] [address] Jan, [facility] [address] [id number] [address] [place] [address], [place] [address] Dec, [facility] [address] [id number] [address] [place] [address], [place] [address] Dec, [facility] [address] [id number] [address] [place] [address], [place] [address] Nov, [facility] [address] [id number] [address] [place] [address], [place] [address] Nov, [facility] [address] [id number] [address] [place] [address], [place] [address] Nov, [facility] [address] [id number] [address] [place] [address], [place] [address] Nov, [facility] [address] [id number] [address] [place] [address], [place] [address] Nov, [facility] [address] [id number] [address] [place] [address], [place] [address] Nov, [facility] [address] [id number] [address] [place] [address], [place] [address] Nov, [facility] [address] [id number] [address] [place] [address], [place] [address] Nov, [facility] [address] [id number] [address] [place] [address], [place] [address] Oct, [facility] [address] [id number] [address] [place] [address], [place] [address] Oct, [facility] [address] [id number] [address] [place] [address], [place] [address] Oct, [facility] [address] [id number] [address] [place] [address], [place] [address] Oct, [facility] [address] [id number] [address] [place] [address], [place] [address] Oct, [facility] [address] [id number] [address] [place] [address], [place] [address] Oct, [facility] [address] [id number] [address] [place] [address], [place] [address] Sep, [facility] [address] [id number] [address] [place] [id number] Sep, [facility] [address] [id number] [address] [place] [address], [place] [address] Sep, [facility] [address] [id number] [address] [place] [address] Sep, [facility] [address] [id number] [address] [place] [address], [place] [address] Sep, [facility] [address] [id number] [address] [place] [address], [place] [address] Aug, [facility] [address] [id number] [address] [place] [address], [place] [address] Aug, [facility] [address] [id number] [address] [place] [address], [place] [address] Aug, [facility] [address] [id number] [address] [place] [address], [place] [address] Aug, [facility] [address] [id number] [address] [place] [address], [place] [address] Aug, [facility] [address] [id number] [address] [place] [address], [place] [address] Aug, [facility] [address] [id number] [address] [place] [address], [place] [address] Jul, [facility] [address] [id number] [address] [place] [address], [place] [address] Jul, [facility] [address] [id number] [address] [place] [address], [place] [address] Jul, [facility] [address] [id number] [address] [place] [address], [place] [address] Jun, [facility] [address] [id number] [address] [place] [address], [place] [address] Jun, [facility] [address] [id number] [address] [place] [address], [place] [address] May, [facility] [address] [id number] [address] [place] [address], [place] [address] 10 May, 2013 [facility] [address] [id number] [address] [place] [address], [place] [address] 11 Apr, 2013 [facility] [address] [id number] [address] [place] [address], [place] [address] 07 Apr, 2013 [facility] [address] [id number] [address] [place] [address], [place] [address] Apr, [facility] [address] [id number] [address] [place] [address], [place] [address] March, [facility] [address] [id number] [address] [place] [address], [place] [address] Feb, [facility] [address] [id number] [address] [place] [address], [place] [address] Feb, [facility] [address] [id number] [address] [place] [address], [place] [address] Jan, [facility] [address] [id number] [address] [place] [address], [place] [address] Jan, [facility] [address] [id number] [address] [place] [address], [place] [address] Jan, [facility] [address] [id number] [address] [place] [address], [place] [address] Jan, [facility] [address] [id number] [address] [place] [address], [place] [address] Jan, [facility] [address] [id number] [address] [place] [address], [place] [address] 28 Dec, 2012 [facility] [address] [id number] [address] [place] [address], [place] [address] 27 Dec, 2012 [facility] [address] [id number] [address] [place] [address], [place] [address] 18 Dec, 2012 [facility] [address] [id number] [address] [place] [address], [place] [address] Dec, [facility] [address] [id number] [address] [place] [address], [place] [address] Dec, [facility] [address] [id number] [address] [place] [address], [place] [address] Dec, [facility] [address] [place] [id number] Nov, [facility] [address] [id number] [address] [place] [address], [place] [address] Nov, [facility] [address] [id number] [address] [place] [address], [place] [address] Nov, [facility] [address] [id number] [address] [place] [address], [place] [address] Nov, [facility] [address] [id number] [address] [place] [address], [place] [address] Nov, [facility] [address] [id number] [address] [place] [address], [place] [address] Oct, [facility] [address] [id number] [address] [place] [address], [place] [address] Oct, [facility] [address] [id number] [address] [place] [address], [place] [address] Oct, [facility] [address] [id number] [address] [place] [address], [place] [address] Oct, [facility] [address] [id number] [address] [place] [address], [place] [address] Oct, [facility] [address] [id number] [address] [place] [address], [place] [address] Oct, [facility] [address] [id number] [address] [place] [address], [place] [address] Oct, [facility] [address] [id number] [address] [place] [address], [place] [address] Oct, [facility] [address] [id number] [address] [place] [address], [place] [address] Sep, [facility] [address] [id number] [address] [place] [address], [place] [address] Sep, [facility] [address] [id number] [address] [place] [address], [place] [address] Sep, [facility] [address] [id number] [address] [place] [address], [place] [address] Sep, [facility] [address] [id number] [address] [place] [address], [place] [address] Sep, [facility] [address] [id number] [address] [place] [address], [place] [address] Sep, [facility] [address] [id number] [address] [place] [address], [place] [id number] Sep, [facility] [address] [id number] [address] [place] [address], [place] [id number] Sep, [facility] [address] [id number] [address] [place] [address], [place] [phone] Sep, [facility] [address] [id number] [address] [place] [address], [place] [id number] Sep, [facility] [address] [id number] [address] [place] [address], [place] [id number] Sep, [facility] [address] [id number] [address] [place] [address], [place] [id number] Sep, [facility] [address] [id number] [address] [place] [id number] Sep, [facility] [address] [id number] [address] [place] [id number] Sep, [facility] [address] [id number] [address] [place] [id number] Sep, [facility] [address] [id number] [address] [place] [id number] Sep, IMMUNIZATIONS No Known Immunizations SOCIAL HISTORY Never Assessed REASON FOR VISIT PLAN OF CARE VITAL SIGNS MEDICATIONS Unknown Medications RESULTS No Results PROCEDURES Procedure Date Ordered Result Body Site COMPLETE CBC W/AUTO DIFF WBC Sep 02, 2014 GLYCATED HEMOGLOBIN TEST Sep 02, 2014 LIPID PANEL Sep 02, 2014 COMPREHEN METABOLIC PANEL Sep 02, 2014 VENIPUNCT, ROUTINE* Sep 02, 2014 INSTRUCTIONS MEDICATIONS ADMINISTERED No Known Medications MEDICAL (GENERAL) HISTORY Type Description Date Medical History hypertension Medical History type I diabetes Medical History chronic renal insufficiency Surgical History gastric pacemaker 2008 Hospitalization History nausea 2011
--- OUTSIDE RECORDS SUMMARY | 2020-04-17 21:18 | XMS REPORT ---
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 Active 58978512 Problem Other chronic pain G89.29 Active 8 8206744 Problem Hypertension, essential I10 Active 97174266 Problem Vitamin D deficiency E55.9 Active 94552498 Problem Mood disorder F39 Active 160961 05 Problem Type 1 diabetes mellitus with hyperglycemia E10.65 Active [id number] Problem Type 1 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 Active 09023677 Problem Chronic fatigue R53.82 Active 8422 9001 Problem Controlled diabetes mellitus type 1 without complications E10.9 Active 29229875 ALLERGIES No Information ENCOUNTERS Encounter Location Date Diagnosis [place] [address] [place] [id number] [address] [place] [id number] 02 Feb, 2020 Type 1 diabetes mellitus wit h other diabetic neurological complication E10.49 [place] [id number] [place] [id number] Jan, Type 1 diabetes mellitus wit h other diabetic neurological complication E10.49 [place] [id number] [place] [id number] [address] [place] [id number] Jan, Type 1 diabetes mellitus wit h other diabetic neurological complication E10.49 [place] [address] [place] [id number] [place] [id number] 03 Dec, 2019 Type 1 diabetes mellitus wit h other diabetic neurological complication E10.49 [place] [address] [place] [id number] [place] [phone] Nov, Type 1 diabetes mellitus wit h diabetic polyneuropathy E10.42 ; Mood disorder F39 ; Vitamin D deficiency E55.9 and Renal insufficiency N28.9 [facility] [address] [facility] [id number] [address] [place] [id number] Nov, Type 1 diabetes mellitus wit h other diabetic neurological complication E10.49 [facility] [address] [facility] [id number] [address] [place] [id number] Oct, Other chronic pain G89.29 [facility] [address] [facility] [id number] [address] [place] [phone] Oct, Type 1 diabetes mellitus wit h other diabetic neurological complication E10.49 [facility] [address] [place] [id number] [address] [place] [phone] Oct, [facility] [address] [place] [id number] [place] [id number] Aug, Type 1 diabetes mellitus wit h other diabetic neurological complication E10.49 [facility] [address] [place] [id number] [place] [id number] 14 Aug, 2019 Encounter for immunization Z 23 [facility] [address] [place] [id number] [address] [place] [id number] 08 Aug, 2019 Vitamin D deficiency E55.9 [facility] [address] [facility] [id number] [address] [place] [phone] Jul, Type 1 diabetes mellitus wit h other diabetic neurological complication E10.49 [facility] [address] [facility] [id number] [address] [place] [id number] Jul, Type 1 diabetes mellitus wit h hyperglycemia E10.65 [facility] [address] [facility] [id number] [address] [place] [id number] Jun, Type 1 diabetes mellitus wit h other diabetic neurological complication E10.49 [facility] [address] [facility] [id number] [address] [place] [phone] May, [facility] [address] [place] [id number] [address] [place] [id number] May, [facility] [address] [id number] [address] [place] [phone] May, Other chronic pain G89.29 [facility] [address] [id number] [address] [place] [phone] May, [facility] [address] [id number] [address] [place] [id number] May, Type 1 diabetes mellitus wit h other diabetic neurological complication E10.49 [facility] [address] [id number] [address] [place] [phone] Apr, [facility] [address] [id number] [address] [place] [id number] Apr, Type 1 diabetes mellitus wit h other diabetic neurological complication E10.49 [facility] [address] [id number] [address] [place] [id number] Apr, Encounter for Medicare annua l wellness exam Z00.00 [facility] [address] [id number] [address] [place] [id number] March, Encounter for Medicare annua l wellness exam Z00.00 and Type 1 diabetes mellitus with other diabetic neurological complication E10.49 [facility] [address] [id number] [address] [place] [id number] Feb, Type 1 diabetes mellitus wit h other diabetic neurological complication E10.49 [facility] [address] [id number] [address] [place] [id number] Feb, Encounter for Medicare annua l wellness exam Z00.00 ; Mood disorder F39 ; Type 1 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 ; Hypertension, essential I10 and Chronic fatigue R53.82 [facility] [address] [id number] [address] [place] [id number] Jan, Type 1 diabetes mellitus wit h other diabetic neurological complication E10.49 [facility] [address] [id number] [address] [place] [id number] Jan, [facility] [address] [id number] [address] [place] [id number] Jan, Other chronic pain G89.29 [facility] [address] [id number] [address] [place] [id number] 11 Dec, 2018 [facility] [address] [facility] [id number] [address] [place] [id number] 08 Dec, 2018 Type 1 diabetes mellitus wit h other diabetic neurological complication E10.49 [facility] [address] [id number] [address] [place] [id number] 05 Dec, 2018 Other chronic pain G89.29 [facility] [address] [id number] [address] [place] [id number] Nov, [facility] [address] [id number] [address] [place] [address] [id number] Nov, Caries K02.9 [facility] [address] [facility] [id number] [address] [place] [id number] Nov, Type 1 diabetes mellitus wit h other diabetic neurological complication E10.49 [facility] [address] [facility] [id number] [address] [place] [id number] Nov, Controlled diabetes mellitus type 1 without complications E10.9 ; Other chronic pain G89.29 and Pain in left knee M25.562 [facility] [address] [id number] [address] [place] [id number] Oct, Dental examination Z01.20 [facility] [address] [id number] [address] [place] [id number] 14 Oct, 2018 Cutaneous abscess of unspeci fied foot L02.619 and Cellulitis of unspecified part of limb L03.119 [facility] [address] [id number] [address] [place] [id number] 11 Oct, 2018 [facility] [address] [facility] [id number] [address] [place] [phone] Oct, Type 1 diabetes mellitus wit h other diabetic neurological complication E10.49 [facility] [address] [id number] [address] [place] [address] [id number] 06 Oct, 2018 Dental examination Z01.20 an d Caries K02.9 [facility] [address] [facility] [id number] [address] [place] [id number] 04 Oct, 2018 Cutaneous abscess of left fo ot L02.612 and Cellulitis of left lower limb L03.116 [facility] [address] [facility] [id number] [address] [place] [phone] 04 Oct, 2018 Dental examination Z01.20 an d Pain, dental K08.89 [facility] [address] [facility] [id number] [address] [place] [id number] Sep, Left foot pain M79.672 and L eft anterior knee pain M25.562 [facility] [address] [facility] [id number] [address] [place] [id number] Sep, Type 1 diabetes mellitus wit h other diabetic neurological complication E10.49 [facility] [address] [facility] [id number] [address] [place] [phone] Sep, [facility] [address] [facility] [id number] [address] [place] [id number] 11 Aug, 2018 Type 1 diabetes mellitus wit h other diabetic neurological complication E10.49 [facility] [address] [facility] [id number] [address] [place] [phone] 10 Aug, 2018 Encounter for immunization Z 23 [facility] [address] [facility] [id number] [address] [place] [id number] 05 Aug, 2018 Type 1 diabetes mellitus wit h hyperglycemia E10.65 [facility] [address] [facility] [id number] [address] [place] [id number] Jul, Type 1 diabetes mellitus wit h hyperglycemia E10.65 [facility] [address] [facility] [id number] [address] [place] [id number] Jul, [facility] [address] [facility] [id number] [address] [place] [id number] Jul, [facility] [address] [id number] [address] [place] [id number] Jul, Type 1 diabetes mellitus wit h other diabetic neurological complication E10.49 [facility] [address] [id number] [address] [place] [phone] Jul, Type 1 diabetes mellitus wit h other diabetic neurological complication E10.49 and Mood disorder F39 [facility] [address] [id number] [address] [place] [id number] Jun, [facility] [address] [facility] [id number] [address] [place] [id number] Jun, Type 1 diabetes mellitus wit h other diabetic neurological complication E10.49 and Chronic fatigue R53.82 [facility] [address] [id number] [address] [place] [id number] May, Type 1 diabetes mellitus wit h other diabetic neurological complication E10.49 [facility] [address] [id number] [address] [place] [id number] May, [facility] [address] [id number] [address] [place] [phone] May, [facility] [address] [facility] [id number] [address] [place] [phone] Apr, [facility] [address] [facility] [id number] [address] [place] [id number] Apr, Type 1 diabetes mellitus wit h other diabetic neurological complication E10.49 [facility] [address] [id number] [address] [place] [id number] March, [facility] [address] [id number] [address] [place] [id number] Feb, [facility] [address] [facility] [id number] [address] [place] [id number] Feb, Type 1 diabetes mellitus wit h other diabetic neurological complication E10.49 ; Tobacco abuse Z72.0 and Tobacco abuse counseling Z71.6 [facility] [address] [facility] [id number] [address] [place] [id number] Jan, Type 1 diabetes mellitus wit h hyperglycemia E10.65 [facility] [address] [facility] [id number] [address] [place] [phone] Jan, [facility] [address] [facility] [id number] [address] [place] [id number] Dec, Tobacco abuse Z72.0 [facility] [address] [facility] [id number] [address] [place] [id number] Dec, Type 1 diabetes mellitus wit h hyperglycemia E10.65 [facility] [address] [facility] [id number] [phone] Dec, Type 1 diabetes mellitus wit h hyperglycemia E10.65 ; Tobacco abuse Z72.0 and Tobacco abuse counseling Z71.6 [facility] [address] [facility] [id number] [address] [place] [id number] Nov, Type 1 diabetes mellitus wit h hyperglycemia E10.65 [facility] [address] [facility] [id number] [address] [place] [id number] Oct, Type 1 diabetes mellitus wit h hyperglycemia E10.65 [facility] [address] [facility] [id number] [address] [place] [id number] Oct, Type 1 diabetes mellitus wit h hyperglycemia E10.65 [facility] [id number] [place] [id number] Sep, Type 1 diabetes mellitus wit h hyperglycemia E10.65 [facility] [address] [facility] [id number] [address] [place] [id number] Aug, Type 1 diabetes mellitus wit h hyperglycemia E10.65 [facility] [address] [facility] [id number] [address] [place] [phone] Aug, [facility] [address] [facility] [id number] [address] [place] [phone] Aug, Type 1 diabetes mellitus wit h hyperglycemia E10.65 [facility] [address] [id number] [address] [place] [id number] 12 Aug, 2017 Encounter for immunization Z 23 [facility] [address] [id number] [address] [place] [id number] Aug, Type 1 diabetes mellitus wit h hyperglycemia E10.65 [facility] [address] [facility] [id number] [address] [place] [id number] Jul, Type 1 diabetes mellitus wit h hyperglycemia E10.65 [facility] [address] [id number] [address] [place] [phone] Jul, Type 1 diabetes mellitus wit h hyperglycemia E10.65 [facility] [address] [id number] [address] [place] [id number] May, Type 1 diabetes mellitus wit h hyperglycemia E10.65 [facility] [address] [id number] [address] [place] [id number] May, [facility] [address] [id number] [address] [place] [id number] Apr, [facility] [address] [id number] [address] [place] [id number] Apr, Type 1 diabetes mellitus wit h hyperglycemia E10.65 [facility] [address] [id number] [address] [place] [phone] March, [facility] [address] [id number] [address] [place] [id number] March, [facility] [address] [id number] [address] [place] [id number] Jan, [facility] [address] [id number] [address] [place] [id number] Jan, [facility] [address] [facility] [id number] [address] [place] [id number] Jan, Type 1 diabetes mellitus wit h diabetic polyneuropathy E10.42 [facility] [address] [id number] [address] [place] [id number] Jan, Type 1 diabetes mellitus wit h hyperglycemia E10.65 ; Excessive cerumen in both ear canals H61.23 and Controlled diabetes mellitus type 1 without complications E10.9 [facility] [address] [id number] [address] [place] [id number] 16 Dec, 2016 [facility] [address] [id number] [address] [place] [id number] Dec, [facility] [address] [id number] [address] [place] [phone] Dec, [facility] [address] [id number] [address] [place] [id number] Dec, [facility] [address] [facility] [id number] [address] [place] [phone] Nov, [facility] [address] [id number] [address] [place] [id number] Nov, [facility] [address] [id number] [address] [place] [address] Oct, Type 1 diabetes mellitus wit h hyperglycemia E10.65 [facility] [address] [id number] [address] [place] [id number] Sep, [facility] [address] [facility] [id number] [address] [place] [id number] Sep, [facility] [address] [facility] [id number] [address] [place] [id number] Sep, Controlled diabetes mellitus type 1 without complications E10.9 [facility] [address] [id number] [address] [place] [id number] Sep, [facility] [address] [id number] [address] [place] [id number] Aug, Dental caries K02.9 [facility] [address] [facility] [id number] [address] [place] [id number] Aug, Type 1 diabetes mellitus wit h diabetic polyneuropathy E10.42 [facility] [address] [id number] [address] [place] [phone] Aug, [facility] [address] [id number] [address] [place] [id number] Aug, [facility] [address] [id number] [address] [place] [id number] Aug, [facility] [address] [id number] [address] [place] [id number] Jul, Type 1 diabetes mellitus wit h hyperglycemia E10.65 [facility] [address] [id number] [address] [place] [id number] Jul, Type 1 diabetes mellitus wit h hyperglycemia E10.65 ; Tooth pain K08.8 and Encounter for immunization Z23 [facility] [address] [id number] [address] [place] [id number] 08 Jul, 2016 Dental examination Z01.20 [facility] [address] [id number] [address] [place] [id number] Jul, [facility] [address] [id number] [address] [place] [phone] Jul, [facility] [address] [id number] [address] [place] [id number] Jul, [facility] [address] [id number] [address] [place] [phone] Jun, [facility] [address] [id number] [address] [place] [phone] May, [facility] [address] [id number] [address] [place] [id number] Apr, [facility] [address] [id number] [address] [place] [phone] Apr, [facility] [address] [id number] [address] [place] [id number] Apr, [facility] [address] [id number] [address] [place] [phone] March, [facility] [address] [id number] [address] [place] [id number] March, [facility] [address] [facility] [id number] [address] [place] [id number] Feb, [facility] [address] [facility] [id number] [address] [place] [id number] Feb, [facility] [address] [id number] [address] [place] [id number] Feb, Type 1 diabetes mellitus wit h hyperglycemia E10.65 [facility] [address] [facility] [id number] [address] [place] [phone] Jan, [facility] [address] [facility] [id number] [address] [place] [id number] Jan, [facility] [address] [facility] [id number] [address] [place] [phone] Jan, [facility] [address] [facility] [id number] [address] [place] [phone] Jan, [facility] [address] [facility] [id number] [address] [place] [id number] Dec, [facility] [address] [facility] [id number] [address] [place] [id number] Nov, [facility] [address] [facility] [id number] [address] [place] [phone] Nov, [facility] [address] [facility] [id number] [address] [place] [id number] Oct, [facility] [address] [facility] [id number] [address] [place] [id number] Oct, Type 1 diabetes mellitus wit h 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 ; Type 1 diabetes mellitus with hyperglycemia E10.65 ; Gastroparesis K31.84 and Esophageal stricture K22.2 [facility] [address] [id number] [address] [place] [phone] Oct, [facility] [address] [id number] [address] [place] [id number] Sep, [facility] [address] [id number] [address] [place] [id number] Sep, Type 1 diabetes mellitus wit h other diabetic neurological complication E10.49 [facility] [address] [id number] [address] [place] [id number] Aug, Encounter for immunization Z 23 [facility] [address] [id number] [address] [place] [id number] Aug, [facility] [address] [id number] [address] [place] [id number] Aug, [facility] [address] [id number] [address] [place] [id number] Jul, [facility] [address] [id number] [address] [place] [phone] Jul, [facility] [address] [id number] [address] [place] [id number] Jun, [facility] [address] [id number] [address] [place] [id number] Jun, [facility] [address] [id number] [address] [place] [id number] Jun, [facility] [address] [id number] [address] [place] [id number] May, [facility] [address] [id number] [address] [place] [id number] May, [facility] [address] [id number] [address] [place] [id number] May, Diabetes type 1, controlled 250.01 [facility] [address] [id number] [address] [place] [id number] May, [facility] [address] [id number] [address] [place] [id number] May, [facility] [address] [id number] [address] [place] [id number] Apr, Dental examination V72.2 [facility] [address] [id number] [address] [place] [id number] Apr, [facility] [address] [id number] [address] [place] [id number] Apr, [facility] [address] [id number] [address] [place] [id number] Apr, [facility] [address] [id number] [address] [place] [id number] Apr, [facility] [address] [id number] [address] [place] [address] Apr, [facility] [address] [id number] [address] [place] [id number] Apr, Dental examination V72.2 [facility] [address] [id number] [address] [place] [address] Apr, [facility] [address] [id number] [address] [place] [id number] Apr, [facility] [address] [id number] [address] [place] [address] March, Diabetes mellitus type 1 250 .01 [facility] [address] [id number] [address] [place] [id number] March, [facility] [address] [id number] [address] [place] [id number] Feb, [facility] [address] [id number] [address] [place] [id number] Feb, [facility] [address] [id number] [address] [place] [id number] Jan, [facility] [address] [id number] [address] [place] [address], [place] [address] Jan, [facility] [address] [id number] [address] [place] [address], [place] [address] Jan, [facility] [address] [id number] [address] [place] [address], [place] [address] Jan, [facility] [address] [id number] [address] [place] [address], [place] [address] Dec, [facility] [address] [id number] [address] [place] [address], [place] [address] Dec, [facility] [address] [id number] [address] [place] [address], [place] [address] Nov, [facility] [address] [id number] [address] [place] [address], [place] [address] Nov, [facility] [address] [id number] [address] [place] [address], [place] [address] Nov, [facility] [address] [id number] [address] [place] [address], [place] [address] Nov, [facility] [address] [id number] [address] [place] [address], [place] [address] Nov, [facility] [address] [id number] [address] [place] [address], [place] [address] Nov, [facility] [address] [id number] [address] [place] [address], [place] [address] Nov, [facility] [address] [id number] [address] [place] [address], [place] [address] Oct, [facility] [address] [id number] [address] [place] [address], [place] [address] Oct, [facility] [address] [id number] [address] [place] [address], [place] [address] Sep, [facility] [address] [id number] [address] [place] [address], [place] [address] Aug, [facility] [address] [id number] [address] [place] [address], [place] [address] Aug, [facility] [address] [id number] [address] [place] [address], [place] [address] Aug, [facility] [address] [id number] [address] [place] [address], [place] [address] Aug, [facility] [address] [id number] [address] [place] [address], [place] [address] Aug, [facility] [address] [id number] [address] [place] [address], [place] [address] Aug, [facility] [address] [id number] [address] [place] [address], [place] [address] Aug, [facility] [address] [id number] [address] [place] [address], [place] [address] Aug, [facility] [address] [id number] [address] [place] [address], [place] [address] Aug, [facility] [address] [id number] [address] [place] [address], [place] [address] Aug, [facility] [address] [id number] [address] [place] [address] Aug, [facility] [address] [id number] [address] [place] [address] Aug, [facility] [address] [id number] [address] [place] [address] Aug, [facility] [address] [id number] [address] [place] [address] Aug, [facility] [address] [id number] [address] [place] [id number] Jul, [facility] [address] [id number] [address] [place] [address] Jul, [facility] [address] [id number] [address] [place] [id number] Jul, [facility] [address] [id number] [address] [place] [address], [place] [address] Jul, [facility] [address] [id number] [address] [place] [address], [place] [address] Jun, [facility] [address] [id number] [address] [place] [address], [place] [address] Jun, [facility] [address] [id number] [address] [place] [address], [place] [address] Jun, [facility] [address] [id number] [address] [place] [address], [place] [address] Jun, [facility] [address] [id number] [address] [place] [address], [place] [address] May, [facility] [address] [id number] [address] [place] [address], [place] [address] May, [facility] [address] [id number] [address] [place] [address], [place] [address] May, [facility] [address] [id number] [address] [place] [address], [place] [address] May, [facility] [address] [id number] [address] [place] [address], [place] [address] May, [facility] [address] [id number] [address] [place] [address], [place] [address] May, [facility] [address] [id number] [address] [place] [address], [place] [address] May, [facility] [address] [id number] [address] [place] [address], [place] [address] May, [facility] [address] [id number] [address] [place] [address], [place] [address] May, [facility] [address] [id number] [address] [place] [address], [place] [address] May, [facility] [address] [id number] [facility] [place] [address] May, [facility] [address] [id number] [facility] [place] [address] May, [facility] [address] [id number] [facility] [place] [address] May, [facility] [address] [id number] [facility] [place] [address] Apr, [facility] [address] [id number] [facility] [place] [address] Apr, [facility] [address] [id number] [address] [place] [address], [place] [address] Apr, [facility] [address] [id number] [address] [place] [address], [place] [address] Apr, [facility] [address] [id number] [address] [place] [address], [place] [address] Apr, [facility] [address] [id number] [address] [place] [address], [place] [address] Apr, [facility] [address] [id number] [address] [place] [address], [place] [address] Apr, [facility] [address] [id number] [address] [place] [address], [place] [address] Apr, [facility] [address] [id number] [address] [place] [address], [place] [address] Apr, [facility] [address] [id number] [address] [place] [address], [place] [address] Apr, [facility] [address] [id number] [address] [place] [address], [place] [address] Apr, [facility] [address] [id number] [address] [place] [address], [place] [address] Apr, [facility] [address] [id number] [address] [place] [address], [place] [address] Apr, [facility] [address] [id number] [address] [place] [address], [place] [address] Apr, [facility] [address] [id number] [address] [place] [address], [place] [address] March, [facility] [address] [id number] [address] [place] [address], [place] [address] March, [facility] [address] [id number] [address] [place] [address], [place] [address] March, [facility] [address] [id number] [address] [place] [address], [place] [address] March, [facility] [address] [id number] [address] [place] [address], [place] [address] March, [facility] [address] [id number] [address] [place] [address], [place] [address] March, [facility] [address] [id number] [address] [place] [address], [place] [address] March, [facility] [address] [id number] [address] [place] [address], [place] [address] March, [facility] [address] [id number] [address] [place] [address], [place] [address] March, [facility] [address] [id number] [address] [place] [address], [place] [address] March, [facility] [address] [id number] [address] [place] [address], [place] [address] Feb, [facility] [address] [id number] [address] [place] [address], [place] [address] Feb, [facility] [address] [id number] [address] [place] [address], [place] [address] Feb, [facility] [address] [id number] [address] [place] [address], [place] [address] Feb, [facility] [address] [id number] [facility] [place] [address] 10 Feb, 2014 [facility] [address] [id number] [address] [place] [address], [place] [address] 10 Feb, 2014 [facility] [address] [id number] [facility] [place] [address] Feb, [facility] [address] [id number] [address] [place] [address], [place] [address] Feb, [facility] [address] [id number] [address] [place] [address], [place] [address] Jan, [facility] [address] [id number] [address] [place] [address], [place] [address] Jan, [facility] [address] [id number] [address] [place] [address], [place] [address] Jan, [facility] [address] [id number] [address] [place] [address], [place] [address] Jan, [facility] [address] [id number] [address] [place] [address], [place] [address] Jan, [facility] [address] [id number] [address] [place] [address], [place] [address] Jan, [facility] [address] [id number] [address] [place] [address], [place] [address] Jan, [facility] [address] [id number] [address] [place] [address], [place] [address] Jan, [facility] [address] [id number] [address] [place] [address], [place] [address] Jan, [facility] [address] [id number] [address] [place] [address], [place] [address] Jan, [facility] [address] [id number] [address] [place] [address], [place] [address] Dec, [facility] [address] [id number] [address] [place] [address], [place] [address] Dec, [facility] [address] [id number] [address] [place] [address], [place] [address] Nov, [facility] [address] [id number] [address] [place] [address], [place] [address] Nov, [facility] [address] [id number] [address] [place] [address], [place] [address] Nov, [facility] [address] [id number] [address] [place] [address], [place] [address] Nov, [facility] [address] [id number] [address] [place] [address], [place] [address] Nov, [facility] [address] [id number] [address] [place] [address], [place] [address] Nov, [facility] [address] [id number] [address] [place] [address], [place] [address] Nov, [facility] [address] [id number] [address] [place] [address], [place] [address] Nov, [facility] [address] [id number] [address] [place] [address], [place] [address] Oct, [facility] [address] [id number] [address] [place] [address], [place] [address] Oct, [facility] [address] [id number] [address] [place] [address], [place] [address] Oct, [facility] [address] [id number] [address] [place] [address], [place] [address] Oct, [facility] [address] [id number] [address] [place] [address], [place] [address] Oct, [facility] [address] [id number] [address] [place] [address], [place] [address] Oct, [facility] [address] [id number] [address] [place] [address], [place] [address] Sep, [facility] [address] [id number] [address] [place] [address] Sep, [facility] [address] [id number] [address] [place] [address], [place] [address] Sep, [facility] [address] [id number] [address] [place] [address] Sep, [facility] [address] [id number] [address] [place] [address], [place] [address] Sep, [facility] [address] [id number] [address] [place] [address], [place] [address] Aug, [facility] [address] [id number] [address] [place] [address], [place] [address] Aug, [facility] [address] [id number] [address] [place] [address], [place] [address] Aug, [facility] [address] [id number] [address] [place] [address], [place] [address] Aug, [facility] [address] [id number] [address] [place] [address], [place] [address] Aug, [facility] [address] [id number] [address] [place] [address], [place] [address] Aug, [facility] [address] [id number] [address] [place] [address], [place] [address] Jul, [facility] [address] [id number] [address] [place] [address], [place] [address] Jul, [facility] [address] [id number] [address] [place] [address], [place] [address] Jul, [facility] [address] [id number] [address] [place] [address], [place] [address] Jun, [facility] [address] [id number] [address] [place] [address], [place] [address] Jun, [facility] [address] [id number] [address] [place] [address], [place] [address] May, [facility] [address] [id number] [address] [place] [address], [place] [address] 10 May, 2013 [facility] [address] [id number] [address] [place] [address], [place] [address] 11 Apr, 2013 [facility] [address] [id number] [address] [place] [address], [place] [address] 07 Apr, 2013 [facility] [address] [id number] [address] [place] [address], [place] [address] Apr, [facility] [address] [id number] [address] [place] [address], [place] [address] March, [facility] [address] [id number] [address] [place] [address], [place] [address] Feb, [facility] [address] [id number] [address] [place] [address], [place] [address] Feb, [facility] [address] [id number] [address] [place] [address], [place] [address] Jan, [facility] [address] [id number] [address] [place] [address], [place] [address] Jan, [facility] [address] [id number] [address] [place] [address], [place] [address] Jan, [facility] [address] [id number] [address] [place] [address], [place] [address] Jan, [facility] [address] [id number] [address] [place] [address], [place] [address] Jan, [facility] [address] [id number] [address] [place] [address], [place] [address] 28 Dec, 2012 [facility] [address] [id number] [address] [place] [address], [place] [address] 27 Dec, [address] [facility] [address] [id number] [address] [place] [address], [place] [address] 18 Dec, 2012 [facility] [address] [id number] [address] [place] [address], [place] [address] Dec, [facility] [address] [id number] [address] [place] [address], [place] [address] Dec, [facility] [address] [id number] [address] [place] [address], [place] [address] Dec, [facility] [address] [place] [id number] Nov, [facility] [address] [id number] [address] [place] [address], [place] [address] Nov, [facility] [address] [id number] [address] [place] [address], [place] [address] Nov, [facility] [address] [id number] [address] [place] [address], [place] [address] Nov, [facility] [address] [id number] [address] [place] [address], [place] [address] Nov, [facility] [address] [id number] [address] [place] [address], [place] [address] Oct, [facility] [address] [id number] [address] [place] [address], [place] [address] Oct, [facility] [address] [id number] [address] [place] [address], [place] [address] Oct, [facility] [address] [id number] [address] [place] [address], [place] [address] Oct, [facility] [address] [id number] [address] [place] [address], [place] [address] Oct, [facility] [address] [id number] [address] [place] [address], [place] [address] Oct, [facility] [address] [id number] [address] [place] [address], [place] [address] Oct, [facility] [address] [id number] [address] [place] [address], [place] [address] Oct, [facility] [address] [id number] [address] [place] [address], [place] [address] Sep, [facility] [address] [id number] [address] [place] [address], [place] [address] Sep, [facility] [address] [id number] [address] [place] [address], [place] [address] Sep, [facility] [address] [id number] [address] [place] [id number] Sep, [facility] [address] [id number] [address] [place] [address], [place] [address] Sep, [facility] [address] [id number] [address] [place] [address], [place] [address] Sep, [facility] [address] [id number] [address] [place] [address], [place] [address] Sep, [facility] [address] [id number] [address] [place] [address], [place] [address] Sep, [facility] [address] [id number] [address] [place] [id number] Sep, [facility] [address] [id number] [address] [place] [address], [place] [address] Sep, [facility] [address] [id number] [address] [place] [id number] Sep, [facility] [address] [id number] [address] [place] [id number] Sep, [facility] [address] [id number] [address] [place] [id number] Sep, [facility] [address] [id number] [address] [place] [id number] Sep, [facility] [address] [id number] [address] [place] [id number] Sep, [facility] [address] [id number] [address] [place] [id number] Sep, IMMUNIZATIONS Vaccine Route Administration Date Status [...]
--- OUTSIDE RECORDS SUMMARY | 2020-04-17 21:18 | XMS REPORT ---
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 Active 45309858 Problem Other chronic pain G89.29 Active 8 4643877 Problem Hypertension, essential I10 Active 81930551 Problem Vitamin D deficiency E55.9 Active 49001352 Problem Mood disorder F39 Active 514694 05 Problem Type 1 diabetes mellitus with hyperglycemia E10.65 Active [id number] Problem Type 1 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 Active 00295069 Problem Chronic fatigue R53.82 Active 8422 9001 Problem Controlled diabetes mellitus type 1 without complications E10.9 Active [id number] ALLERGIES No Information ENCOUNTERS Encounter Location Date Diagnosis [place] [address] [place] [id number] [address] [place] [id number] 02 Feb, 2020 Type 1 diabetes mellitus wit h other diabetic neurological complication E10.49 [place] [id number] [place] [phone] Jan, Type 1 diabetes mellitus wit h other diabetic neurological complication E10.49 [place] [address] [place] [id number] [place] [id number] Jan, Type 1 diabetes mellitus wit h other diabetic neurological complication E10.49 [place] [address] [place] [id number] [address] [place] [phone] 03 Dec, 2019 Type 1 diabetes mellitus wit h other diabetic neurological complication E10.49 [place] [address] [place] [id number] [address] [place] [phone] Nov, Type 1 diabetes mellitus wit h diabetic polyneuropathy E10.42 ; Mood disorder F39 ; Vitamin D deficiency E55.9 and Renal insufficiency N28.9 [facility] [address] [facility] [id number] [address] [place] [id number] Nov, Type 1 diabetes mellitus wit h other diabetic neurological complication E10.49 [facility] [address] [facility] [id number] [address] [place] [phone] Oct, Other chronic pain G89.29 [facility] [address] [facility] [id number] [address] [place] [phone] Oct, Type 1 diabetes mellitus wit h other diabetic neurological complication E10.49 [facility] [address] [place] [id number] [address] [place] [phone] Oct, [facility] [address] [place] [id number] [address] [place] [id number] Aug, Type 1 diabetes mellitus wit h other diabetic neurological complication E10.49 [facility] [address] [place] [id number] [address] [place] [id number] 14 Aug, 2019 Encounter for immunization Z 23 [facility] [address] [place] [id number] [place] [id number] 08 Aug, 2019 Vitamin D deficiency E55.9 [facility] [address] [facility] [id number] [address] [place] [id number] Jul, Type 1 diabetes mellitus wit h other diabetic neurological complication E10.49 [facility] [address] [facility] [id number] [address] [place] [id number] Jul, Type 1 diabetes mellitus wit h hyperglycemia E10.65 [facility] [address] [facility] [id number] [address] [place] [id number] Jun, Type 1 diabetes mellitus wit h other diabetic neurological complication E10.49 [facility] [address] [facility] [id number] [address] [place] [phone] May, [facility] [address] [place] [id number] [place] [phone] May, [facility] [address] [id number] [address] [place] [phone] May, Other chronic pain G89.29 [facility] [address] [id number] [address] [place] [id number] May, [facility] [address] [id number] [address] [place] [id number] May, Type 1 diabetes mellitus wit h other diabetic neurological complication E10.49 [facility] [address] [id number] [address] [place] [id number] Apr, [facility] [address] [id number] [address] [place] [id number] Apr, Type 1 diabetes mellitus wit h other diabetic neurological complication E10.49 [facility] [address] [id number] [address] [place] [id number] Apr, Encounter for Medicare annua l wellness exam Z00.00 [facility] [address] [id number] [address] [place] [id number] March, Encounter for Medicare annua l wellness exam Z00.00 and Type 1 diabetes mellitus with other diabetic neurological complication E10.49 [facility] [address] [id number] [address] [place] [id number] Feb, Type 1 diabetes mellitus wit h other diabetic neurological complication E10.49 [facility] [address] [id number] [address] [place] [id number] Feb, Encounter for Medicare annua l wellness exam Z00.00 ; Mood disorder F39 ; Type 1 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 ; Hypertension, essential I10 and Chronic fatigue R53.82 [facility] [address] [id number] [address] [place] [id number] Jan, Type 1 diabetes mellitus wit h other diabetic neurological complication E10.49 [facility] [address] [id number] [address] [place] [phone] Jan, [facility] [address] [id number] [address] [place] [id number] Jan, Other chronic pain G89.29 [facility] [address] [id number] [address] [place] [id number] 11 Dec, 2018 [facility] [address] [facility] [id number] [address] [place] [phone] 08 Dec, 2018 Type 1 diabetes mellitus wit h other diabetic neurological complication E10.49 [facility] [address] [id number] [address] [place] [id number] 05 Dec, 2018 Other chronic pain G89.29 [facility] [address] [id number] [address] [place] [phone] Nov, [facility] [address] [id number] [address] [place] [address] [phone] Nov, Caries K02.9 [facility] [address] [facility] [id number] [address] [place] [id number] Nov, Type 1 diabetes mellitus wit h other diabetic neurological complication E10.49 [facility] [address] [facility] [id number] [address] [place] [id number] Nov, Controlled diabetes mellitus type 1 without complications E10.9 ; Other chronic pain G89.29 and Pain in left knee M25.562 [facility] [address] [id number] [address] [place] [address] [phone] Oct, Dental examination Z01.20 [facility] [address] [id number] [address] [place] [id number] 14 Oct, 2018 Cutaneous abscess of unspeci fied foot L02.619 and Cellulitis of unspecified part of limb L03.119 [facility] [address] [id number] [address] [place] [id number] 11 Oct, 2018 [facility] [address] [facility] [id number] [address] [place] [id number] Oct, Type 1 diabetes mellitus wit h other diabetic neurological complication E10.49 [facility] [address] [id number] [address] [place] [address] [id number] 06 Oct, 2018 Dental examination Z01.20 an d Caries K02.9 [facility] [address] [facility] [id number] [address] [place] [id number] 04 Oct, 2018 Cutaneous abscess of left fo ot L02.612 and Cellulitis of left lower limb L03.116 [facility] [address] [facility] [id number] [address] [place] [id number] 04 Oct, 2018 Dental examination Z01.20 an d Pain, dental K08.89 [facility] [address] [facility] [id number] [address] [place] [id number] Sep, Left foot pain M79.672 and L eft anterior knee pain M25.562 [facility] [address] [facility] [id number] [address] [place] [id number] Sep, Type 1 diabetes mellitus wit h other diabetic neurological complication E10.49 [facility] [address] [facility] [id number] [address] [place] [phone] Sep, [facility] [address] [facility] [id number] [address] [place] [id number] 11 Aug, 2018 Type 1 diabetes mellitus wit h other diabetic neurological complication E10.49 [facility] [address] [facility] [id number] [address] [place] [id number] 10 Aug, 2018 Encounter for immunization Z 23 [facility] [address] [facility] [id number] [address] [place] [id number] 05 Aug, 2018 Type 1 diabetes mellitus wit h hyperglycemia E10.65 [facility] [address] [facility] [id number] [address] [place] [id number] Jul, Type 1 diabetes mellitus wit h hyperglycemia E10.65 [facility] [address] [facility] [id number] [address] [place] [phone] Jul, [facility] [address] [facility] [id number] [address] [place] [phone] Jul, [facility] [address] [id number] [address] [place] [id number] Jul, Type 1 diabetes mellitus wit h other diabetic neurological complication E10.49 [facility] [address] [id number] [address] [place] [id number] Jul, Type 1 diabetes mellitus wit h other diabetic neurological complication E10.49 and Mood disorder F39 [facility] [address] [id number] [address] [place] [phone] Jun, [facility] [address] [facility] [id number] [address] [place] [id number] Jun, Type 1 diabetes mellitus wit h other diabetic neurological complication E10.49 and Chronic fatigue R53.82 [facility] [address] [id number] [address] [place] [id number] May, Type 1 diabetes mellitus wit h other diabetic neurological complication E10.49 [facility] [address] [id number] [address] [place] [id number] May, [facility] [address] [id number] [address] [place] [phone] May, [facility] [address] [facility] [id number] [address] [place] [phone] Apr, [facility] [address] [facility] [id number] [address] [place] [phone] Apr, Type 1 diabetes mellitus wit h other diabetic neurological complication E10.49 [facility] [address] [id number] [address] [place] [phone] March, [facility] [address] [id number] [address] [place] [phone] Feb, [facility] [address] [facility] [id number] [address] [place] [phone] Feb, Type 1 diabetes mellitus wit h other diabetic neurological complication E10.49 ; Tobacco abuse Z72.0 and Tobacco abuse counseling Z71.6 [facility] [address] [facility] [id number] [address] [place] [id number] Jan, Type 1 diabetes mellitus wit h hyperglycemia E10.65 [facility] [address] [facility] [id number] [address] [place] [id number] Jan, [facility] [address] [facility] [id number] [address] [place] [id number] Dec, Tobacco abuse Z72.0 [facility] [address] [facility] [id number] [address] [place] [id number] Dec, Type 1 diabetes mellitus wit h hyperglycemia E10.65 [facility] [address] [facility] [id number] [address] Dec, Type 1 diabetes mellitus wit h hyperglycemia E10.65 ; Tobacco abuse Z72.0 and Tobacco abuse counseling Z71.6 [facility] [address] [facility] [id number] [address] [place] [phone] Nov, Type 1 diabetes mellitus wit h hyperglycemia E10.65 [facility] [address] [facility] [id number] [address] [place] [phone] Oct, Type 1 diabetes mellitus wit h hyperglycemia E10.65 [facility] [address] [facility] [id number] [address] [place] [phone] Oct, Type 1 diabetes mellitus wit h hyperglycemia E10.65 [facility] [id number] [place] [id number] Sep, Type 1 diabetes mellitus wit h hyperglycemia E10.65 [facility] [address] [facility] [id number] [address] [place] [id number] Aug, Type 1 diabetes mellitus wit h hyperglycemia E10.65 [facility] [address] [facility] [id number] [address] [place] [id number] Aug, [facility] [address] [facility] [id number] [address] [place] [id number] Aug, Type 1 diabetes mellitus wit h hyperglycemia E10.65 [facility] [address] [id number] [address] [place] [id number] 12 Aug, 2017 Encounter for immunization Z 23 [facility] [address] [id number] [address] [place] [id number] Aug, Type 1 diabetes mellitus wit h hyperglycemia E10.65 [facility] [address] [facility] [id number] [address] [place] [id number] Jul, Type 1 diabetes mellitus wit h hyperglycemia E10.65 [facility] [address] [id number] [address] [place] [id number] Jul, Type 1 diabetes mellitus wit h hyperglycemia E10.65 [facility] [address] [id number] [address] [place] [phone] May, Type 1 diabetes mellitus wit h hyperglycemia E10.65 [facility] [address] [id number] [address] [place] [phone] May, [facility] [address] [id number] [address] [place] [id number] Apr, [facility] [address] [id number] [address] [place] [id number] Apr, Type 1 diabetes mellitus wit h hyperglycemia E10.65 [facility] [address] [id number] [address] [place] [id number] March, [facility] [address] [id number] [address] [place] [phone] March, [facility] [address] [id number] [address] [place] [phone] Jan, [facility] [address] [id number] [address] [place] [phone] Jan, [facility] [address] [facility] [id number] [address] [place] [id number] Jan, Type 1 diabetes mellitus wit h diabetic polyneuropathy E10.42 [facility] [address] [id number] [address] [place] [phone] Jan, Type 1 diabetes mellitus wit h hyperglycemia E10.65 ; Excessive cerumen in both ear canals H61.23 and Controlled diabetes mellitus type 1 without complications E10.9 [facility] [address] [id number] [address] [place] [id number] 16 Dec, 2016 [facility] [address] [id number] [address] [place] [phone] Dec, [facility] [address] [id number] [address] [place] [phone] Dec, [facility] [address] [id number] [address] [place] [id number] Dec, [facility] [address] [facility] [id number] [address] [place] [phone] Nov, [facility] [address] [id number] [address] [place] [id number] Nov, [facility] [address] [id number] [address] [place] [id number] Oct, Type 1 diabetes mellitus wit h hyperglycemia E10.65 [facility] [address] [id number] [address] [place] [phone] Sep, [facility] [address] [facility] [id number] [address] [place] [id number] Sep, [facility] [address] [facility] [id number] [address] [place] [phone] Sep, Controlled diabetes mellitus type 1 without complications E10.9 [facility] [address] [id number] [address] [place] [id number] Sep, [facility] [address] [id number] [address] [place] [address] [id number] Aug, Dental caries K02.9 [facility] [address] [facility] [id number] [address] [place] [id number] Aug, Type 1 diabetes mellitus wit h diabetic polyneuropathy E10.42 [facility] [address] [id number] [address] [place] [id number] Aug, [facility] [address] [id number] [address] [place] [phone] Aug, [facility] [address] [id number] [address] [place] [id number] Aug, [facility] [address] [id number] [address] [place] [id number] Jul, Type 1 diabetes mellitus wit h hyperglycemia E10.65 [facility] [address] [id number] [address] [place] [id number] Jul, Type 1 diabetes mellitus wit h hyperglycemia E10.65 ; Tooth pain K08.8 and Encounter for immunization Z23 [facility] [address] [id number] [address] [place] [address] [id number] Jul, 2016 Dental examination Z01.20 [facility] [address] [id number] [address] [place] [phone] Jul, [facility] [address] [id number] [address] [place] [id number] Jul, [facility] [address] [id number] [address] [place] [id number] Jul, [facility] [address] [id number] [address] [place] [phone] Jun, [facility] [address] [id number] [address] [place] [id number] May, [facility] [address] [id number] [address] [place] [id number] Apr, [facility] [address] [id number] [address] [place] [phone] Apr, [facility] [address] [id number] [address] [place] [id number] Apr, [facility] [address] [id number] [address] [place] [phone] March, [facility] [address] [id number] [address] [place] [id number] March, [facility] [address] [facility] [id number] [address] [place] [phone] Feb, [facility] [address] [facility] [id number] [address] [place] [id number] Feb, [facility] [address] [id number] [address] [place] [id number] Feb, Type 1 diabetes mellitus wit h hyperglycemia E10.65 [facility] [address] [facility] [id number] [address] [place] [phone] Jan, [facility] [address] [facility] [id number] [address] [place] [id number] Jan, [facility] [address] [facility] [id number] [address] [place] [phone] Jan, [facility] [address] [facility] [id number] [address] [place] [id number] Jan, [facility] [address] [facility] [id number] [address] [place] [id number] Dec, [facility] [address] [facility] [id number] [address] [place] [phone] Nov, [facility] [address] [facility] [id number] [address] [place] [id number] Nov, [facility] [address] [facility] [id number] [address] [place] [phone] Oct, [facility] [address] [facility] [id number] [address] [place] [id number] Oct, Type 1 diabetes mellitus wit h 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 ; Type 1 diabetes mellitus with hyperglycemia E10.65 ; Gastroparesis K31.84 and Esophageal stricture K22.2 [facility] [address] [id number] [address] [place] [phone] Oct, [facility] [address] [id number] [address] [place] [phone] Sep, [facility] [address] [id number] [address] [place] [id number] Sep, Type 1 diabetes mellitus wit h other diabetic neurological complication E10.49 [facility] [address] [id number] [address] [place] [id number] Aug, Encounter for immunization Z 23 [facility] [address] [id number] [address] [place] [id number] Aug, [facility] [address] [id number] [address] [place] [phone] Aug, [facility] [address] [id number] [address] [place] [id number] Jul, [facility] [address] [id number] [address] [place] [phone] Jul, [facility] [address] [id number] [address] [place] [id number] Jun, [facility] [address] [id number] [address] [place] [id number] Jun, [facility] [address] [id number] [address] [place] [id number] Jun, [facility] [address] [id number] [address] [place] [phone] May, [facility] [address] [id number] [address] [place] [id number] May, [facility] [address] [id number] [address] [place] [id number] May, Diabetes type 1, controlled 250.01 [facility] [address] [id number] [address] [place] [id number] May, [facility] [address] [id number] [address] [place] [id number] May, [facility] [address] [id number] [address] [place] [id number] Apr, Dental examination V72.2 [facility] [address] [id number] [address] [place] [id number] Apr, [facility] [address] [id number] [address] [place] [id number] Apr, [facility] [facility] [address] [id number] [address] [place] [address] Apr, [facility] [address] [id number] [address] [place] [address] Apr, [facility] [address] [id number] [address] [place] [address] Apr, [facility] [address] [id number] [address] [place] [id number] Apr, Dental examination V72.2 [facility] [address] [id number] [address] [place] [address] Apr, [facility] [address] [id number] [address] [place] [address] Apr, [facility] [address] [id number] [address] [place] [address] March, Diabetes mellitus type 1 250 .01 [facility] [address] [id number] [address] [place] [address] March, [facility] [address] [id number] [address] [place] [address] Feb, [facility] [address] [id number] [address] [place] [address] Feb, [facility] [address] [id number] [address] [place] [address] Jan, [facility] [address] [id number] [address] [place] [address], [place] [address] Jan, [facility] [address] [id number] [address] [place] [address], [place] [address] Jan, [facility] [address] [id number] [address] [place] [address], [place] [address] Jan, [facility] [address] [id number] [address] [place] [address], [place] [address] Dec, [facility] [address] [id number] [address] [place] [address], [place] [address] Dec, [facility] [address] [id number] [address] [place] [address], [place] [address] Nov, [facility] [address] [id number] [address] [place] [address], [place] [address] Nov, [facility] [address] [id number] [address] [place] [address], [place] [address] Nov, [facility] [address] [id number] [address] [place] [address], [place] [address] Nov, [facility] [address] [id number] [address] [place] [address], [place] [address] Nov, [facility] [address] [id number] [address] [place] [address], [place] [address] Nov, [facility] [address] [id number] [address] [place] [address], [place] [address] Nov, [facility] [address] [id number] [address] [place] [address], [place] [address] Oct, [facility] [address] [id number] [address] [place] [address], [place] [address] Oct, [facility] [address] [id number] [address] [place] [address], [place] [address] Sep, [facility] [address] [id number] [address] [place] [address], [place] [address] Aug, [facility] [address] [id number] [address] [place] [address], [place] [address] Aug, [facility] [address] [id number] [address] [place] [address], [place] [address] Aug, [facility] [address] [id number] [address] [place] [address], [place] [address] Aug, [facility] [address] [id number] [address] [place] [address], [place] [address] Aug, [facility] [address] [id number] [address] [place] [address], [place] [address] Aug, [facility] [address] [id number] [address] [place] [address], [place] [address] Aug, [facility] [address] [id number] [address] [place] [address], [place] [address] Aug, [facility] [address] [id number] [address] [place] [address], [place] [address] Aug, [facility] [address] [id number] [address] [place] [address], [place] [address] Aug, [facility] [address] [id number] [address] [place] [address] Aug, [facility] [address] [id number] [address] [place] [address] Aug, [facility] [address] [id number] [address] [place] [address] Aug, [facility] [address] [id number] [address] [place] [address] Aug, [facility] [address] [id number] [address] [place] [address] Jul, [facility] [address] [id number] [address] [place] [address] Jul, [facility] [address] [id number] [address] [place] [address] Jul, [facility] [address] [id number] [address] [place] [address], [place] [address] Jul, [facility] [address] [id number] [address] [place] [address], [place] [address] Jun, [facility] [address] [id number] [address] [place] [address], [place] [address] Jun, [facility] [address] [id number] [address] [place] [address], [place] [address] Jun, [facility] [address] [id number] [address] [place] [address], [place] [address] Jun, [facility] [address] [id number] [address] [place] [address], [place] [address] May, [facility] [address] [id number] [address] [place] [address], [place] [address] May, [facility] [address] [id number] [address] [place] [address], [place] [address] May, [facility] [address] [id number] [address] [place] [address], [place] [address] May, [facility] [address] [id number] [address] [place] [address], [place] [address] May, [facility] [address] [id number] [address] [place] [address], [place] [address] May, [facility] [address] [id number] [address] [place] [address], [place] [address] May, [facility] [address] [id number] [address] [place] [address], [place] [address] May, [facility] [address] [id number] [address] [place] [address], [place] [address] May, [facility] [address] [id number] [address] [place] [address], [place] [address] May, [facility] [address] [id number] [facility] [address] May, [facility] [address] [id number] [facility] [address] May, [facility] [address] [id number] [facility] [address] May, [facility] [address] [id number] [facility] [address] Apr, [facility] [address] [id number] [facility] [address] Apr, [facility] [address] [id number] [address] [place] [address], [place] [address] Apr, [facility] [address] [id number] [address] [place] [address], [place] [address] Apr, [facility] [address] [id number] [address] [place] [address], [place] [address] Apr, [facility] [address] [id number] [address] [place] [address], [place] [address] Apr, [facility] [address] [id number] [address] [place] [address], [place] [address] Apr, [facility] [address] [id number] [address] [place] [address], [place] [address] Apr, [facility] [address] [id number] [address] [place] [address], [place] [address] Apr, [facility] [address] [id number] [address] [place] [address], [place] [address] Apr, [facility] [address] [id number] [address] [place] [address], [place] [address] Apr, [facility] [address] [id number] [address] [place] [address], [place] [address] Apr, [facility] [address] [id number] [address] [place] [address], [place] [address] Apr, [facility] [address] [id number] [address] [place] [address], [place] [address] Apr, [facility] [address] [id number] [address] [place] [address], [place] [address] March, [facility] [address] [id number] [address] [place] [address], [place] [address] March, [facility] [address] [id number] [address] [place] [address], [place] [address] March, [facility] [address] [id number] [address] [place] [address], [place] [address] March, [facility] [address] [id number] [address] [place] [address], [place] [address] March, [facility] [address] [id number] [address] [place] [address], [place] [address] March, [facility] [address] [id number] [address] [place] [address], [place] [address] March, [facility] [address] [id number] [address] [place] [address], [place] [address] March, [facility] [address] [id number] [address] [place] [address], [place] [address] March, [facility] [address] [id number] [address] [place] [address], [place] [address] March, [facility] [address] [id number] [address] [place] [address], [place] [address] Feb, [facility] [address] [id number] [address] [place] [address], [place] [address] Feb, [facility] [address] [id number] [address] [place] [address], [place] [address] Feb, [facility] [address] [id number] [address] [place] [address], [place] [address] Feb, [facility] [address] [id number] [facility] [address] 10 Feb, 2014 [facility] [address] [id number] [address] [place] [address], [place] [address] 10 Feb, 2014 [facility] [address] [id number] [facility] [place] [address] Feb, [facility] [address] [id number] [address] [place] [address], [place] [address] Feb, [facility] [address] [id number] [address] [place] [address], [place] [address] Jan, [facility] [address] [id number] [address] [place] [address], [place] [address] Jan, [facility] [address] [id number] [address] [place] [address], [place] [address] Jan, [facility] [address] [id number] [address] [place] [address], [place] [address] Jan, [facility] [address] [id number] [address] [place] [address], [place] [address] Jan, [facility] [address] [id number] [address] [place] [address], [place] [address] Jan, [facility] [address] [id number] [address] [place] [address], [place] [address] Jan, [facility] [address] [id number] [address] [place] [address], [place] [address] Jan, [facility] [address] [id number] [address] [place] [address], [place] [address] Jan, [facility] [address] [id number] [address] [place] [address], [place] [address] Jan, [facility] [address] [id number] [address] [place] [address], [place] [address] Dec, [facility] [address] [id number] [address] [place] [address], [place] [address] Dec, [facility] [address] [id number] [address] [place] [address], [place] [address] Nov, [facility] [address] [id number] [address] [place] [address], [place] [address] Nov, [facility] [address] [id number] [address] [place] [address], [place] [address] Nov, [facility] [address] [id number] [address] [place] [address], [place] [address] Nov, [facility] [address] [id number] [address] [place] [address], [place] [address] Nov, [facility] [address] [id number] [address] [place] [address], [place] [address] Nov, [facility] [address] [id number] [address] [place] [address], [place] [address] Nov, [facility] [address] [id number] [address] [place] [address], [place] [address] Nov, [facility] [address] [id number] [address] [place] [address], [place] [address] Oct, [facility] [address] [id number] [address] [place] [address], [place] [address] Oct, [facility] [address] [id number] [address] [place] [address], [place] [address] Oct, [facility] [address] [id number] [address] [place] [address], [place] [address] Oct, [facility] [address] [id number] [address] [place] [address], [place] [address] Oct, [facility] [address] [id number] [address] [place] [address], [place] [address] Oct, [facility] [address] [id number] [address] [place] [address], [place] [address] Sep, [facility] [address] [id number] [address] [place] [address] Sep, [facility] [address] [id number] [address] [place] [address], [place] [address] Sep, [facility] [address] [id number] [address] [place] [address] Sep, [facility] [address] [id number] [address] [place] [address], [place] [address] Sep, [facility] [address] [id number] [address] [place] [address], [place] [address] Aug, [facility] [address] [id number] [address] [place] [address], [place] [address] Aug, [facility] [address] [id number] [address] [place] [address], [place] [address] Aug, [facility] [address] [id number] [address] [place] [address], [place] [address] Aug, [facility] [address] [id number] [address] [place] [address], [place] [address] Aug, [facility] [address] [id number] [address] [place] [address], [place] [address] Aug, [facility] [address] [id number] [address] [place] [address], [place] [address] Jul, [facility] [address] [id number] [address] [place] [address], [place] [address] Jul, [facility] [address] [id number] [address] [place] [address], [place] [address] Jul, [facility] [address] [id number] [address] [place] [address], [place] [address] Jun, [facility] [address] [id number] [address] [place] [address], [place] [address] Jun, [facility] [address] [id number] [address] [place] [address], [place] [address] May, [facility] [address] [id number] [address] [place] [address], [place] [address] 10 May, 2013 [facility] [address] [id number] [address] [place] [address], [place] [address] 11 Apr, 2013 [facility] [address] [id number] [address] [place] [address], [place] [address] 07 Apr, 2013 [facility] [address] [id number] [address] [place] [address], [place] [address] Apr, [facility] [address] [id number] [address] [place] [address], [place] [address] March, [facility] [address] [id number] [address] [place] [address], [place] [address] Feb, [facility] [address] [id number] [address] [place] [address], [place] [address] Feb, [facility] [address] [id number] [address] [place] [address], [place] [address] Jan, [facility] [address] [id number] [address] [place] [address], [place] [address] Jan, [facility] [address] [id number] [address] [place] [address], [place] [address] Jan, [facility] [address] [id number] [address] [place] [address], [place] [address] Jan, [facility] [address] [id number] [address] [place] [address], [place] [address] Jan, [facility] [address] [id number] [address] [place] [address], [place] [address] 28 Dec, 2012 [facility] [address] [id number] [address] [place] [address], [place] [address] 27 Dec, 2012 [facility] [address] [id number] [address] [place] [address], [place] [address] 18 Dec, 2012 [facility] [address] [id number] [address] [place] [address], [place] [address] Dec, [facility] [address] [id number] [address] [place] [address], [place] [address] Dec, [facility] [address] [id number] [address] [place] [address], [place] [address] Dec, [facility] [place] [id number] Nov, [facility] [address] [id number] [address] [place] [address], [place] [address] Nov, [facility] [address] [id number] [address] [place] [address], [place] [address] Nov, [facility] [address] [id number] [address] [place] [address], [place] [address] Nov, [facility] [address] [id number] [address] [place] [address], [place] [address] Nov, [facility] [address] [id number] [address] [place] [address], [place] [address] Oct, [facility] [address] [id number] [address] [place] [address], [place] [address] Oct, [facility] [address] [id number] [address] [place] [address], [place] [address] Oct, [facility] [address] [id number] [address] [place] [address], [place] [address] Oct, [facility] [address] [id number] [address] [place] [address], [place] [address] Oct, [facility] [address] [id number] [address] [place] [address], [place] [address] Oct, [facility] [address] [id number] [address] [place] [address], [place] [address] Oct, [facility] [address] [id number] [address] [place] [address], [place] [address] Oct, [facility] [address] [id number] [address] [place] [address], [place] [address] Sep, [facility] [address] [id number] [address] [place] [address], [place] [address] Sep, [facility] [address] [id number] [address] [place] [address], [place] [address] Sep, [facility] [address] [id number] [address] [place] [address], [place] [address] Sep, [facility] [address] [id number] [address] [place] [address], [place] [address] Sep, [facility] [address] [id number] [address] [place] [address], [place] [address] Sep, [facility] [address] [id number] [address] [place] [address], [place] [address] Sep, [facility] [address] [id number] [address] [place] [address], [place] [address] Sep, [facility] [address] [id number] [address] [place] [address], [place] [address] Sep, [facility] [address] [id number] [address] [place] [address], [place] [address] Sep, [facility] [address] [id number] [address] [place] [address], [place] [address] Sep, [facility] [address] [id number] [address] [place] [address], [place] [address] Sep, [facility] [address] [id number] [address] [place] [id number] Sep, [facility] [address] [id number] [address] [place] [id number] Sep, [facility] [address] [id number] [address] [place] [id number] Sep, [facility] [address] [id number] [address] [place] [id number] Sep, IMMUNIZATIONS No Known Immunizations SOCIAL HISTORY [...]
--- OUTSIDE RECORDS SUMMARY | 2020-04-17 21:19 | XMS REPORT ---
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 Active 17824871 Problem Other chronic pain G89.29 Active 8 5284927 Problem Hypertension, essential I10 Active 50031341 Problem Vitamin D deficiency E55.9 Active 96119250 Problem Mood disorder F39 Active 406688 05 Problem Type 1 diabetes mellitus with hyperglycemia E10.65 Active [id number] Problem Type 1 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 Active 74887365 Problem Chronic fatigue R53.82 Active 8422 9001 Problem Controlled diabetes mellitus type 1 without complications E10.9 Active 61593658 ALLERGIES No Information ENCOUNTERS Encounter Location Date Diagnosis [place] [address] [place] [id number] [place] [phone] 02 Feb, 2020 Type 1 diabetes mellitus wit h other diabetic neurological complication E10.49 [place] [id number] [place] [id number] Jan, Type 1 diabetes mellitus wit h other diabetic neurological complication E10.49 [place] [id number] [place] [phone] Jan, Type 1 diabetes mellitus wit h other diabetic neurological complication E10.49 [place] [address] [place] [id number] [place] [id number] 03 Dec, 2019 Type 1 diabetes mellitus wit h other diabetic neurological complication E10.49 [place] [address] [place] [id number] [place] [phone] Nov, Type 1 diabetes mellitus wit h diabetic polyneuropathy E10.42 ; Mood disorder F39 ; Vitamin D deficiency E55.9 and Renal insufficiency N28.9 [facility] [address] [facility] [id number] [address] [place] [phone] Nov, Type 1 diabetes mellitus wit h other diabetic neurological complication E10.49 [facility] [address] [facility] [id number] [address] [place] [phone] Oct, Other chronic pain G89.29 [facility] [address] [facility] [id number] [address] [place] [phone] Oct, Type 1 diabetes mellitus wit h other diabetic neurological complication E10.49 [facility] [address] [place] [id number] [place] [phone] Oct, [facility] [address] [place] [id number] [address] [place] [phone] Aug, Type 1 diabetes mellitus wit h other diabetic neurological complication E10.49 [facility] [address] [place] [id number] [place] [phone] 14 Aug, 2019 Encounter for immunization Z 23 [facility] [address] [place] [id number] [place] [phone] 08 Aug, 2019 Vitamin D deficiency E55.9 [facility] [address] [facility] [id number] [address] [place] [phone] Jul, Type 1 diabetes mellitus wit h other diabetic neurological complication E10.49 [facility] [address] [facility] [id number] [address] [place] [phone] Jul, Type 1 diabetes mellitus wit h hyperglycemia E10.65 [facility] [address] [facility] [id number] [address] [place] [phone] Jun, Type 1 diabetes mellitus wit h other diabetic neurological complication E10.49 [facility] [address] [facility] [id number] [address] [place] [phone] May, [facility] [address] [place] [id number] [address] [place] [phone] May, [facility] [address] [id number] [address] [place] [phone] May, Other chronic pain G89.29 [facility] [address] [id number] [address] [place] [id number] May, [facility] [address] [id number] [address] [place] [phone] May, Type 1 diabetes mellitus wit h other diabetic neurological complication E10.49 [facility] [address] [id number] [address] [place] [id number] Apr, [facility] [address] [id number] [address] [place] [id number] Apr, Type 1 diabetes mellitus wit h other diabetic neurological complication E10.49 [facility] [address] [id number] [address] [place] [phone] Apr, Encounter for Medicare annua l wellness exam Z00.00 [facility] [address] [id number] [address] [place] [id number] March, Encounter for Medicare annua l wellness exam Z00.00 and Type 1 diabetes mellitus with other diabetic neurological complication E10.49 [facility] [address] [id number] [address] [place] [phone] Feb, Type 1 diabetes mellitus wit h other diabetic neurological complication E10.49 [facility] [address] [id number] [address] [place] [phone] Feb, Encounter for Medicare annua l wellness exam Z00.00 ; Mood disorder F39 ; Type 1 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 ; Hypertension, essential I10 and Chronic fatigue R53.82 [facility] [address] [id number] [address] [place] [phone] Jan, Type 1 diabetes mellitus wit h other diabetic neurological complication E10.49 [facility] [address] [id number] [address] [place] [phone] Jan, [facility] [address] [id number] [address] [place] [id number] Jan, Other chronic pain G89.29 [facility] [address] [id number] [address] [place] [id number] 11 Dec, 2018 [facility] [address] [facility] [id number] [address] [place] [phone] 08 Dec, 2018 Type 1 diabetes mellitus wit h other diabetic neurological complication E10.49 [facility] [address] [id number] [address] [place] [phone] 05 Dec, 2018 Other chronic pain G89.29 [facility] [address] [id number] [address] [place] [phone] Nov, [facility] [address] [id number] [address] [place] [address] [id number] Nov, Caries K02.9 [facility] [address] [facility] [id number] [address] [place] [phone] Nov, Type 1 diabetes mellitus wit h other diabetic neurological complication E10.49 [facility] [address] [facility] [id number] [address] [place] [id number] Nov, Controlled diabetes mellitus type 1 without complications E10.9 ; Other chronic pain G89.29 and Pain in left knee M25.562 [facility] [address] [id number] [address] [place] [phone] Oct, Dental examination Z01.20 [facility] [address] [id number] [address] [place] [id number] 14 Oct, 2018 Cutaneous abscess of unspeci fied foot L02.619 and Cellulitis of unspecified part of limb L03.119 [facility] [address] [id number] [address] [place] [phone] 11 Oct, 2018 [facility] [address] [facility] [id number] [address] [place] [phone] Oct, Type 1 diabetes mellitus wit h other diabetic neurological complication E10.49 [facility] [address] [id number] [address] [place] [address] [id number] 06 Oct, 2018 Dental examination Z01.20 an d Caries K02.9 [facility] [address] [facility] [id number] [address] [place] [phone] 04 Oct, 2018 Cutaneous abscess of left fo ot L02.612 and Cellulitis of left lower limb L03.116 [facility] [address] [facility] [id number] [address] [place] [id number] 04 Oct, 2018 Dental examination Z01.20 an d Pain, dental K08.89 [facility] [address] [facility] [id number] [address] [place] [phone] Sep, Left foot pain M79.672 and L eft anterior knee pain M25.562 [facility] [address] [facility] [id number] [address] [place] [phone] Sep, Type 1 diabetes mellitus wit h other diabetic neurological complication E10.49 [facility] [address] [facility] [id number] [address] [place] [phone] Sep, [facility] [address] [facility] [id number] [address] [place] [phone] 11 Aug, 2018 Type 1 diabetes mellitus wit h other diabetic neurological complication E10.49 [facility] [address] [facility] [id number] [address] [place] [phone] 10 Aug, 2018 Encounter for immunization Z 23 [facility] [address] [facility] [id number] [address] [place] [phone] 05 Aug, 2018 Type 1 diabetes mellitus wit h hyperglycemia E10.65 [facility] [address] [facility] [id number] [address] [place] [phone] Jul, Type 1 diabetes mellitus wit h hyperglycemia E10.65 [facility] [address] [facility] [id number] [address] [place] [phone] Jul, [facility] [address] [facility] [id number] [address] [place] [phone] Jul, [facility] [address] [id number] [address] [place] [phone] Jul, Type 1 diabetes mellitus wit h other diabetic neurological complication E10.49 [facility] [address] [id number] [address] [place] [phone] Jul, Type 1 diabetes mellitus wit h other diabetic neurological complication E10.49 and Mood disorder F39 [facility] [address] [id number] [address] [place] [id number] Jun, [facility] [address] [facility] [id number] [address] [place] [phone] Jun, Type 1 diabetes mellitus wit h other diabetic neurological complication E10.49 and Chronic fatigue R53.82 [facility] [address] [id number] [address] [place] [phone] May, Type 1 diabetes mellitus wit h other diabetic neurological complication E10.49 [facility] [address] [id number] [address] [place] [phone] May, [facility] [address] [id number] [address] [place] [phone] May, [facility] [address] [facility] [id number] [address] [place] [phone] Apr, [facility] [address] [facility] [id number] [address] [place] [phone] Apr, Type 1 diabetes mellitus wit h other diabetic neurological complication E10.49 [facility] [address] [id number] [address] [place] [phone] March, [facility] [address] [id number] [address] [place] [phone] Feb, [facility] [address] [facility] [id number] [address] [place] [phone] Feb, Type 1 diabetes mellitus wit h other diabetic neurological complication E10.49 ; Tobacco abuse Z72.0 and Tobacco abuse counseling Z71.6 [facility] [address] [facility] [id number] [address] [place] [phone] Jan, Type 1 diabetes mellitus wit h hyperglycemia E10.65 [facility] [address] [facility] [id number] [address] [place] [phone] Jan, [facility] [address] [facility] [id number] [address] [place] [phone] Dec, Tobacco abuse Z72.0 [facility] [address] [facility] [id number] [address] [place] [phone] Dec, Type 1 diabetes mellitus wit h hyperglycemia E10.65 [facility] [address] [facility] [id number] [phone] Dec, Type 1 diabetes mellitus wit h hyperglycemia E10.65 ; Tobacco abuse Z72.0 and Tobacco abuse counseling Z71.6 [facility] [address] [facility] [id number] [address] [place] [phone] Nov, Type 1 diabetes mellitus wit h hyperglycemia E10.65 [facility] [address] [facility] [id number] [address] [place] [phone] Oct, Type 1 diabetes mellitus wit h hyperglycemia E10.65 [facility] [address] [facility] [id number] [address] [place] [phone] Oct, Type 1 diabetes mellitus wit h hyperglycemia E10.65 [facility] [id number] [place] [phone] Sep, Type 1 diabetes mellitus wit h hyperglycemia E10.65 [facility] [address] [facility] [id number] [address] [place] [phone] Aug, Type 1 diabetes mellitus wit h hyperglycemia E10.65 [facility] [address] [facility] [id number] [address] [place] [phone] Aug, [facility] [address] [facility] [id number] [address] [place] [phone] Aug, Type 1 diabetes mellitus wit h hyperglycemia E10.65 [facility] [address] [id number] [address] [place] [phone] 12 Aug, 2017 Encounter for immunization Z 23 [facility] [address] [id number] [address] [place] [phone] Aug, Type 1 diabetes mellitus wit h hyperglycemia E10.65 [facility] [address] [facility] [id number] [address] [place] [phone] Jul, Type 1 diabetes mellitus wit h hyperglycemia E10.65 [facility] [address] [id number] [address] [place] [phone] Jul, Type 1 diabetes mellitus wit h hyperglycemia E10.65 [facility] [address] [id number] [address] [place] [phone] May, Type 1 diabetes mellitus wit h hyperglycemia E10.65 [facility] [address] [id number] [address] [place] [phone] May, [facility] [address] [id number] [address] [place] [phone] Apr, [facility] [address] [id number] [address] [place] [phone] Apr, Type 1 diabetes mellitus wit h hyperglycemia E10.65 [facility] [address] [id number] [address] [place] [phone] March, [facility] [address] [id number] [address] [place] [phone] March, [facility] [address] [id number] [address] [place] [phone] Jan, [facility] [address] [id number] [address] [place] [phone] Jan, [facility] [address] [facility] [id number] [address] [place] [phone] Jan, Type 1 diabetes mellitus wit h diabetic polyneuropathy E10.42 [facility] [address] [id number] [address] [place] [phone] Jan, Type 1 diabetes mellitus wit h hyperglycemia E10.65 ; Excessive cerumen in both ear canals H61.23 and Controlled diabetes mellitus type 1 without complications E10.9 [facility] [address] [id number] [address] [place] [phone] 16 Dec, 2016 [facility] [address] [id number] [address] [place] [phone] Dec, [facility] [address] [id number] [address] [place] [phone] Dec, [facility] [address] [id number] [address] [place] [phone] Dec, [facility] [address] [facility] [id number] [address] [place] [phone] Nov, [facility] [address] [id number] [address] [place] [phone] Nov, [facility] [address] [id number] [address] [place] [phone] Oct, Type 1 diabetes mellitus wit h hyperglycemia E10.65 [facility] [address] [id number] [address] [place] [phone] Sep, [facility] [address] [facility] [id number] [address] [place] [phone] Sep, [facility] [address] [facility] [id number] [address] [place] [phone] Sep, Controlled diabetes mellitus type 1 without complications E10.9 [facility] [address] [id number] [address] [place] [phone] Sep, [facility] [address] [id number] [address] [place] [id number] Aug, Dental caries K02.9 [facility] [address] [facility] [id number] [address] [place] [phone] Aug, Type 1 diabetes mellitus wit h diabetic polyneuropathy E10.42 [facility] [address] [id number] [address] [place] [phone] Aug, [facility] [address] [id number] [address] [place] [phone] Aug, [facility] [address] [id number] [address] [place] [phone] Aug, [facility] [address] [id number] [address] [place] [id number] Jul, Type 1 diabetes mellitus wit h hyperglycemia E10.65 [facility] [address] [id number] [address] [place] [phone] Jul, Type 1 diabetes mellitus wit h hyperglycemia E10.65 ; Tooth pain K08.8 and Encounter for immunization Z23 [facility] [address] [id number] [address] [place] [address] [id number] 08 Jul, 2016 Dental examination Z01.20 [facility] [address] [id number] [address] [place] [phone] Jul, [facility] [address] [id number] [address] [place] [phone] Jul, [facility] [address] [id number] [address] [place] [phone] Jul, [facility] [address] [id number] [address] [place] [phone] Jun, [facility] [address] [id number] [address] [place] [phone] May, [facility] [address] [id number] [address] [place] [phone] Apr, [facility] [address] [id number] [address] [place] [phone] Apr, [facility] [address] [id number] [address] [place] [phone] Apr, [facility] [address] [id number] [address] [place] [phone] March, [facility] [address] [id number] [address] [place] [phone] March, [facility] [address] [facility] [id number] [address] [place] [phone] Feb, [facility] [address] [facility] [id number] [address] [place] [phone] Feb, [facility] [address] [id number] [address] [place] [phone] Feb, Type 1 diabetes mellitus wit h hyperglycemia E10.65 [facility] [address] [facility] [id number] [address] [place] [phone] Jan, [facility] [address] [facility] [id number] [address] [place] [phone] Jan, [facility] [address] [facility] [id number] [address] [place] [phone] Jan, [facility] [address] [facility] [id number] [address] [place] [phone] Jan, [facility] [address] [facility] [id number] [address] [place] [phone] Dec, [facility] [address] [facility] [id number] [address] [place] [phone] Nov, [facility] [address] [facility] [id number] [address] [place] [phone] Nov, [facility] [address] [facility] [id number] [address] [place] [phone] Oct, [facility] [address] [facility] [facility] [id number] [address] [place] [id number] Oct, Type 1 diabetes mellitus wit h 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 ; Type 1 diabetes mellitus with hyperglycemia E10.65 ; Gastroparesis K31.84 and Esophageal stricture K22.2 [facility] [address] [id number] [address] [place] [id number] Oct, [facility] [address] [id number] [address] [place] [id number] Sep, [facility] [address] [id number] [address] [place] [id number] Sep, Type 1 diabetes mellitus wit h other diabetic neurological complication E10.49 [facility] [address] [id number] [address] [place] [id number] Aug, Encounter for immunization Z 23 [facility] [address] [id number] [address] [place] [id number] Aug, [facility] [address] [id number] [address] [place] [id number] Aug, [facility] [address] [id number] [address] [place] [phone] Jul, [facility] [address] [id number] [address] [place] [id number] Jul, [facility] [address] [id number] [address] [place] [id number] Jun, [facility] [address] [id number] [address] [place] [phone] Jun, [facility] [address] [id number] [address] [place] [phone] Jun, [facility] [address] [id number] [address] [place] [phone] May, [facility] [address] [id number] [address] [place] [phone] May, [facility] [address] [id number] [address] [place] [id number] May, Diabetes type 1, controlled 250.01 [facility] [address] [id number] [address] [place] [phone] May, [facility] [address] [id number] [address] [place] [phone] May, [facility] [address] [id number] [address] [place] [id number] Apr, Dental examination V72.2 [facility] [address] [id number] [address] [place] [phone] Apr, [facility] [address] [id number] [address] [place] [phone] Apr, [facility] [address] [id number] [address] [place] [id number] Apr, [facility] [address] [id number] [address] [place] [id number] Apr, [facility] [address] [id number] [address] [place] [id number] Apr, [facility] [address] [id number] [address] [place] [id number] Apr, Dental examination V72.2 [facility] [address] [id number] [address] [place] [id number] Apr, [facility] [address] [id number] [address] [place] [phone] Apr, [facility] [address] [id number] [address] [place] [id number] March, Diabetes mellitus type 1 250 .01 [facility] [address] [id number] [address] [place] [phone] March, [facility] [address] [id number] [address] [place] [phone] Feb, [facility] [address] [id number] [address] [place] [phone] Feb, [facility] [address] [id number] [address] [place] [phone] Jan, [facility] [address] [id number] [address] [place] [address], [place] [address] Jan, [facility] [address] [id number] [address] [place] [address], [place] [address] Jan, [facility] [address] [id number] [address] [place] [address], [place] [address] Jan, [facility] [address] [id number] [address] [place] [address], [place] [address] Dec, [facility] [address] [id number] [address] [place] [address], [place] [address] Dec, [facility] [address] [id number] [address] [place] [address], [place] [address] Nov, [facility] [address] [id number] [address] [place] [address], [place] [address] Nov, [facility] [address] [id number] [address] [place] [address], [place] [address] Nov, [facility] [address] [id number] [address] [place] [address], [place] [address] Nov, [facility] [address] [id number] [address] [place] [address], [place] [address] Nov, [facility] [address] [id number] [address] [place] [address], [place] [address] Nov, [facility] [address] [id number] [address] [place] [address], [place] [address] Nov, [facility] [address] [id number] [address] [place] [address], [place] [address] Oct, [facility] [address] [id number] [address] [place] [address], [place] [address] Oct, [facility] [address] [id number] [address] [place] [address], [place] [address] Sep, [facility] [address] [id number] [address] [place] [address], [place] [address] Aug, [facility] [address] [id number] [address] [place] [address], [place] [address] Aug, [facility] [address] [id number] [address] [place] [address], [place] [address] Aug, [facility] [address] [id number] [address] [place] [address], [place] [address] Aug, [facility] [address] [id number] [address] [place] [address], [place] [address] Aug, [facility] [address] [id number] [address] [place] [address], [place] [address] Aug, [facility] [address] [id number] [address] [place] [address], [place] [address] Aug, [facility] [address] [id number] [address] [place] [address], [place] [address] Aug, [facility] [address] [id number] [address] [place] [address], [place] [address] Aug, [facility] [address] [id number] [address] [place] [address], [place] [address] Aug, [facility] [address] [id number] [address] [place] [phone] Aug, [facility] [address] [id number] [address] [place] [id number] Aug, [facility] [address] [id number] [address] [place] [id number] Aug, [facility] [address] [id number] [address] [place] [phone] Aug, [facility] [address] [id number] [address] [place] [id number] Jul, [facility] [address] [id number] [address] [place] [id number] Jul, [facility] [address] [id number] [address] [place] [phone] Jul, [facility] [address] [id number] [address] [place] [address], [place] [address] Jul, [facility] [address] [id number] [address] [place] [address], [place] [address] Jun, [facility] [address] [id number] [address] [place] [address], [place] [address] Jun, [facility] [address] [id number] [address] [place] [address], [place] [address] Jun, [facility] [address] [id number] [address] [place] [address], [place] [address] Jun, [facility] [address] [id number] [address] [place] [address], [place] [address] May, [facility] [address] [id number] [address] [place] [address], [place] [address] May, [facility] [address] [id number] [address] [place] [address], [place] [address] May, [facility] [address] [id number] [address] [place] [address], [place] [address] May, [facility] [address] [id number] [address] [place] [address], [place] [address] May, [facility] [address] [id number] [address] [place] [address], [place] [address] May, [facility] [address] [id number] [address] [place] [address], [place] [address] May, [facility] [address] [id number] [address] [place] [address], [place] [address] May, [facility] [address] [id number] [address] [place] [address], [place] [address] May, [facility] [address] [id number] [address] [place] [address], [place] [address] May, [facility] [address] [id number] [facility] [place] [address] May, [facility] [address] [id number] [facility] [place] [address] May, [facility] [address] [id number] [facility] [place] [address] May, [facility] [address] [id number] [facility] [place] [address] Apr, [facility] [address] [id number] [facility] [place] [address] Apr, [facility] [address] [id number] [address] [place] [address], [place] [address] Apr, [facility] [address] [id number] [address] [place] [address], [place] [address] Apr, [facility] [address] [id number] [address] [place] [address], [place] [address] Apr, [facility] [address] [id number] [address] [place] [address], [place] [address] Apr, [facility] [address] [id number] [address] [place] [address], [place] [address] Apr, [facility] [address] [id number] [address] [place] [address], [place] [address] Apr, [facility] [address] [id number] [address] [place] [address], [place] [address] Apr, [facility] [address] [id number] [address] [place] [address], [place] [address] Apr, [facility] [address] [id number] [address] [place] [address], [place] [address] Apr, [facility] [address] [id number] [address] [place] [address], [place] [address] Apr, [facility] [address] [id number] [address] [place] [address], [place] [address] Apr, [facility] [address] [id number] [address] [place] [address], [place] [address] Apr, [facility] [address] [id number] [address] [place] [address], [place] [address] March, [facility] [address] [id number] [address] [place] [address], [place] [address] March, [facility] [address] [id number] [address] [place] [address], [place] [address] March, [facility] [address] [id number] [address] [place] [address], [place] [address] March, [facility] [address] [id number] [address] [place] [address], [place] [address] March, [facility] [address] [id number] [address] [place] [address], [place] [address] March, [facility] [address] [id number] [address] [place] [address], [place] [address] March, [facility] [address] [id number] [address] [place] [address], [place] [address] March, [facility] [address] [id number] [address] [place] [address], [place] [address] March, [facility] [address] [id number] [address] [place] [address], [place] [address] March, [facility] [address] [id number] [address] [place] [address], [place] [address] Feb, [facility] [address] [id number] [address] [place] [address], [place] [address] Feb, [facility] [address] [id number] [address] [place] [address], [place] [address] Feb, [facility] [address] [id number] [address] [place] [address], [place] [address] Feb, [facility] [address] [id number] [facility] [place] [address] 10 Feb, 2014 [facility] [address] [id number] [address] [place] [address], [place] [address] 10 Feb, 2014 [facility] [address] [id number] [facility] [place] [address] Feb, [facility] [address] [id number] [address] [place] [address], [place] [address] Feb, [facility] [address] [id number] [address] [place] [address], [place] [address] Jan, [facility] [address] [id number] [address] [place] [address], [place] [address] Jan, [facility] [address] [id number] [address] [place] [address], [place] [address] Jan, [facility] [address] [id number] [address] [place] [address], [place] [address] Jan, [facility] [address] [id number] [address] [place] [address], [place] [address] Jan, [facility] [address] [id number] [address] [place] [address], [place] [address] Jan, [facility] [address] [id number] [address] [place] [address], [place] [address] Jan, [facility] [address] [id number] [address] [place] [address], [place] [address] Jan, [facility] [address] [id number] [address] [place] [address], [place] [address] Jan, [facility] [address] [id number] [address] [place] [address], [place] [address] Jan, [facility] [address] [id number] [address] [place] [address], [place] [address] Dec, [facility] [address] [id number] [address] [place] [address], [place] [address] Dec, [facility] [address] [id number] [address] [place] [address], [place] [address] Nov, [facility] [address] [id number] [address] [place] [address], [place] [address] Nov, [facility] [address] [id number] [address] [place] [address], [place] [address] Nov, [facility] [address] [id number] [address] [place] [address], [place] [address] Nov, [facility] [address] [id number] [address] [place] [address], [place] [address] Nov, [facility] [address] [id number] [address] [place] [address], [place] [address] Nov, [facility] [address] [id number] [address] [place] [address], [place] [address] Nov, [facility] [address] [id number] [address] [place] [address], [place] [address] Nov, [facility] [address] [id number] [address] [place] [address], [place] [address] Oct, [facility] [address] [id number] [address] [place] [address], [place] [address] Oct, [facility] [address] [id number] [address] [place] [address], [place] [address] Oct, [facility] [address] [id number] [address] [place] [address], [place] [address] Oct, [facility] [address] [id number] [address] [place] [address], [place] [address] Oct, [facility] [address] [id number] [address] [place] [address], [place] [address] Oct, [facility] [address] [id number] [address] [place] [address], [place] [address] Sep, [facility] [address] [id number] [address] [place] [id number] Sep, [facility] [address] [id number] [address] [place] [address], [place] [address] Sep, [facility] [address] [id number] [address] [place] [address] Sep, [facility] [address] [id number] [address] [place] [address], [place] [address] Sep, [facility] [address] [id number] [address] [place] [address], [place] [address] Aug, [facility] [address] [id number] [address] [place] [address], [place] [address] Aug, [facility] [address] [id number] [address] [place] [address], [place] [address] Aug, [facility] [address] [id number] [address] [place] [address], [place] [address] Aug, [facility] [address] [id number] [address] [place] [address], [place] [address] Aug, [facility] [address] [id number] [address] [place] [address], [place] [address] Aug, [facility] [address] [id number] [address] [place] [address], [place] [address] Jul, [facility] [address] [id number] [address] [place] [address], [place] [address] Jul, [facility] [address] [id number] [address] [place] [address], [place] [address] Jul, [facility] [address] [id number] [address] [place] [address], [place] [address] Jun, [facility] [address] [id number] [address] [place] [address], [place] [address] Jun, [facility] [address] [id number] [address] [place] [address], [place] [address] May, [facility] [address] [id number] [address] [place] [address], [place] [address] 10 May, 2013 [facility] [address] [id number] [address] [place] [address], [place] [address] 11 Apr, 2013 [facility] [address] [id number] [address] [place] [address], [place] [address] 07 Apr, 2013 [facility] [address] [id number] [address] [place] [address], [place] [address] Apr, [facility] [address] [id number] [address] [place] [address], [place] [address] March, [facility] [address] [id number] [address] [place] [address], [place] [address] Feb, [facility] [address] [id number] [address] [place] [address], [place] [address] Feb, [facility] [address] [id number] [address] [place] [address], [place] [address] Jan, [facility] [address] [id number] [address] [place] [address], [place] [address] Jan, [facility] [address] [id number] [address] [place] [address], [place] [address] Jan, [facility] [address] [id number] [address] [place] [address], [place] [address] Jan, [facility] [address] [id number] [address] [place] [address], [place] [address] Jan, [facility] [address] [id number] [address] [place] [address], [place] [address] 28 Dec, 2012 [facility] [address] [id number] [address] [place] [address], [place] [address] 27 Dec, 2012 [facility] [address] [id number] [address] [place] [address], [place] [address] 18 Dec, 2012 [facility] [address] [id number] [address] [place] [address], [place] [address] Dec, [facility] [address] [id number] [address] [place] [address], [place] [address] Dec, [facility] [address] [id number] [address] [place] [address], [place] [address] Dec, [facility] [address] [place] [id number] Nov, [facility] [address] [id number] [address] [place] [address], [place] [address] Nov, [facility] [address] [id number] [address] [place] [address], [place] [address] Nov, [facility] [address] [id number] [address] [place] [address], [place] [address] Nov, [facility] [address] [id number] [address] [place] [address], [place] [address] Nov, [facility] [address] [id number] [address] [place] [address], [place] [address] Oct, [facility] [address] [id number] [address] [place] [address], [place] [address] Oct, [facility] [address] [id number] [address] [place] [address], [place] [address] Oct, [facility] [address] [id number] [address] [place] [address], [place] [address] Oct, [facility] [address] [id number] [address] [place] [address], [place] [address] Oct, [facility] [address] [id number] [address] [place] [address], [place] [address] Oct, [facility] [address] [id number] [address] [place] [address], [place] [address] Oct, [facility] [address] [id number] [address] [place] [address], [place] [address] Oct, [facility] [address] [id number] [address] [place] [address], [place] [address] Sep, [facility] [address] [id number] [address] [place] [address], [place] [address] Sep, [facility] [address] [id number] [address] [place] [address], [place] [address] Sep, [facility] [address] [id number] [address] [place] [address], [place] [address] Sep, [facility] [address] [id number] [address] [place] [address], [place] [address] Sep, [facility] [address] [id number] [address] [place] [address], [place] [address] Sep, [facility] [address] [id number] [address] [place] [address], [place] [address] Sep, [facility] [address] [id number] [address] [place] [address], [place] [address] Sep, [facility] [address] [id number] [address] [place] [address], [place] [address] Sep, [facility] [address] [id number] [address] [place] [address], [place] [address] Sep, [facility] [address] [id number] [address] [place] [address], [place] [address] Sep, [facility] [address] [id number] [address] [place] [address], [place] [address] Sep, [facility] [address] [id number] [address] [place] [id number] Sep, [facility] [address] [id number] [address] [place] [id number] Sep, [facility] [address] [id number] [address] [place] [id number] Sep, [facility] [address] [id number] [address] [place] [id number] Sep, IMMUNIZATIONS No Known Immunizations SOCIAL HISTORY [...]
--- OUTSIDE RECORDS SUMMARY | 2020-04-17 21:19 | XMS REPORT ---
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 Active 72631605 Problem Other chronic pain G89.29 Active 8 5073143 Problem Hypertension, essential I10 Active 48072533 Problem Vitamin D deficiency E55.9 Active 04009488 Problem Mood disorder F39 Active 619043 05 Problem Type 1 diabetes mellitus with hyperglycemia E10.65 Active [id number] Problem Type 1 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 Active 33073723 Problem Chronic fatigue R53.82 Active 8422 9001 Problem Controlled diabetes mellitus type 1 without complications E10.9 Active 74661515 ALLERGIES No Information ENCOUNTERS Encounter Location Date Diagnosis [place] [address] [place] [id number] [address] [place] [phone] 02 Feb, 2020 Type 1 diabetes mellitus wit h other diabetic neurological complication E10.49 [place] [address] [place] [id number] [address] [place] [phone] Jan, Type 1 diabetes mellitus wit h other diabetic neurological complication E10.49 [place] [address] [facility] [place] [id number] [address] [place] [phone] Jan, Type 1 diabetes mellitus wit h other diabetic neurological complication E10.49 [place] [address] [place] [id number] [address] [place] [phone] 03 Dec, 2019 Type 1 diabetes mellitus wit h other diabetic neurological complication E10.49 [place] [address] [place] [id number] [address] [place] [phone] Nov, Type 1 diabetes mellitus wit h diabetic polyneuropathy E10.42 ; Mood disorder F39 ; Vitamin D deficiency E55.9 and Renal insufficiency N28.9 [facility] [address] [facility] [place] [id number] [address] [place] [address] Nov, Type 1 diabetes mellitus wit h other diabetic neurological complication E10.49 [facility] [address] [facility] [place] [id number] [address] [place] [phone] Oct, Other chronic pain G89.29 [facility] [address] [facility] [place] [id number] [address] [place] [phone] Oct, Type 1 diabetes mellitus wit h other diabetic neurological complication E10.49 [facility] [address] [place] [id number] [address] [place] [phone] Oct, [facility] [address] [place] [id number] [address] [place] [phone] Aug, Type 1 diabetes mellitus wit h other diabetic neurological complication E10.49 [facility] [address] [place] [id number] [address] [place] [phone] 14 Aug, 2019 Encounter for immunization Z 23 [facility] [address] [place] [id number] [address] [place] [phone] 08 Aug, 2019 Vitamin D deficiency E55.9 [facility] [address] [facility] [place] [id number] [address] [place] [phone] Jul, Type 1 diabetes mellitus wit h other diabetic neurological complication E10.49 [facility] [address] [facility] [place] [id number] [address] [place] [id number] Jul, Type 1 diabetes mellitus wit h hyperglycemia E10.65 [facility] [address] [facility] [place] [id number] [address] [place] [phone] Jun, Type 1 diabetes mellitus wit h other diabetic neurological complication E10.49 [facility] [address] [facility] [place] [id number] [address] [place] [phone] May, [facility] [address] [place] [id number] [address] [place] [phone] May, [facility] [address] [id number] [address] [place] [phone] May, Other chronic pain G89.29 [facility] [address] [id number] [address] [place] [phone] May, [facility] [address] [id number] [address] [place] [phone] May, Type 1 diabetes mellitus wit h other diabetic neurological complication E10.49 [facility] [address] [id number] [address] [place] [id number] Apr, [facility] [address] [id number] [address] [place] [id number] Apr, Type 1 diabetes mellitus wit h other diabetic neurological complication E10.49 [facility] [address] [id number] [address] [place] [id number] Apr, Encounter for Medicare annua l wellness exam Z00.00 [facility] [address] [id number] [address] [place] [phone] March, Encounter for Medicare annua l wellness exam Z00.00 and Type 1 diabetes mellitus with other diabetic neurological complication E10.49 [facility] [address] [id number] [address] [place] [phone] Feb, Type 1 diabetes mellitus wit h other diabetic neurological complication E10.49 [facility] [address] [id number] [address] [place] [address] Feb, Encounter for Medicare annua l wellness exam Z00.00 ; Mood disorder F39 ; Type 1 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 ; Hypertension, essential I10 and Chronic fatigue R53.82 [facility] [address] [id number] [address] [place] [phone] Jan, Type 1 diabetes mellitus wit h other diabetic neurological complication E10.49 [facility] [address] [id number] [address] [place] [phone] Jan, [facility] [address] [id number] [address] [place] [phone] Jan, Other chronic pain G89.29 [facility] [address] [id number] [address] [place] [phone] 11 Dec, 2018 [facility] [address] [facility] [place] [id number] [address] [place] [phone] 08 Dec, 2018 Type 1 diabetes mellitus wit h other diabetic neurological complication E10.49 [facility] [address] [id number] [address] [place] [id number] 05 Dec, 2018 Other chronic pain G89.29 [facility] [address] [id number] [address] [place] [phone] Nov, [facility] [address] [id number] [address] [place] [address] [id number] Nov, Caries K02.9 [facility] [address] [facility] [place] [id number] [address] [place] [phone] Nov, Type 1 diabetes mellitus wit h other diabetic neurological complication E10.49 [facility] [address] [facility] [place] [id number] [address] [place] [address] Nov, Controlled diabetes mellitus type 1 without complications E10.9 ; Other chronic pain G89.29 and Pain in left knee M25.562 [facility] [address] [id number] [address] [place] [address] [id number] Oct, Dental examination Z01.20 [facility] [address] [id number] [address] [place] [address] 14 Oct, 2018 Cutaneous abscess of unspeci fied foot L02.619 and Cellulitis of unspecified part of limb L03.119 [facility] [address] [id number] [address] [place] [id number] 11 Oct, 2018 [facility] [address] [facility] [place] [id number] [address] [place] [address] Oct, Type 1 diabetes mellitus wit h other diabetic neurological complication E10.49 [facility] [address] [id number] [address] [place] [address] [id number] 06 Oct, 2018 Dental examination Z01.20 an d Caries K02.9 [facility] [address] [facility] [place] [id number] [address] [place] [id number] 04 Oct, 2018 Cutaneous abscess of left fo ot L02.612 and Cellulitis of left lower limb L03.116 [facility] [address] [facility] [place] [id number] [address] [place] [phone] 04 Oct, 2018 Dental examination Z01.20 an d Pain, dental K08.89 [facility] [address] [facility] [place] [id number] [address] [place] [phone] Sep, Left foot pain M79.672 and L eft anterior knee pain M25.562 [facility] [address] [facility] [place] [id number] [address] [place] [phone] Sep, Type 1 diabetes mellitus wit h other diabetic neurological complication E10.49 [facility] [address] [facility] [place] [id number] [address] [place] [phone] Sep, [facility] [address] [facility] [place] [id number] [address] [place] [phone] 11 Aug, 2018 Type 1 diabetes mellitus wit h other diabetic neurological complication E10.49 [facility] [address] [facility] [place] [id number] [address] [place] [phone] 10 Aug, 2018 Encounter for immunization Z 23 [facility] [address] [facility] [place] [id number] [address] [place] [phone] 05 Aug, 2018 Type 1 diabetes mellitus wit h hyperglycemia E10.65 [facility] [address] [facility] [place] [id number] [address] [place] [phone] Jul, Type 1 diabetes mellitus wit h hyperglycemia E10.65 [facility] [address] [facility] [place] [id number] [address] [place] [phone] Jul, [facility] [address] [facility] [place] [id number] [address] [place] [phone] Jul, [facility] [address] [id number] [address] [place] [id number] Jul, Type 1 diabetes mellitus wit h other diabetic neurological complication E10.49 [facility] [address] [id number] [address] [place] [phone] Jul, Type 1 diabetes mellitus wit h other diabetic neurological complication E10.49 and Mood disorder F39 [facility] [address] [id number] [address] [place] [phone] Jun, [facility] [address] [facility] [place] [id number] [address] [place] [address] Jun, Type 1 diabetes mellitus wit h other diabetic neurological complication E10.49 and Chronic fatigue R53.82 [facility] [address] [id number] [address] [place] [phone] May, Type 1 diabetes mellitus wit h other diabetic neurological complication E10.49 [facility] [address] [id number] [address] [place] [phone] May, [facility] [address] [id number] [address] [place] [phone] May, [facility] [address] [facility] [place] [id number] [address] [place] [phone] Apr, [facility] [address] [facility] [place] [id number] [address] [place] [phone] Apr, Type 1 diabetes mellitus wit h other diabetic neurological complication E10.49 [facility] [address] [id number] [address] [place] [phone] March, [facility] [address] [id number] [address] [place] [phone] Feb, [facility] [address] [facility] [place] [id number] [address] [place] [phone] Feb, Type 1 diabetes mellitus wit h other diabetic neurological complication E10.49 ; Tobacco abuse Z72.0 and Tobacco abuse counseling Z71.6 [facility] [address] [facility] [place] [id number] [address] [place] [address] Jan, Type 1 diabetes mellitus wit h hyperglycemia E10.65 [facility] [address] [facility] [place] [id number] [address] [place] [id number] Jan, [facility] [address] [facility] [place] [id number] [address] [place] [address] Dec, Tobacco abuse Z72.0 [facility] [address] [facility] [place] [id number] [address] [place] [address] Dec, Type 1 diabetes mellitus wit h hyperglycemia E10.65 [facility] [address] [facility] [place] [id number] [address] Dec, Type 1 diabetes mellitus wit h hyperglycemia E10.65 ; Tobacco abuse Z72.0 and Tobacco abuse counseling Z71.6 [facility] [address] [facility] [place] [id number] [address] [place] [phone] Nov, Type 1 diabetes mellitus wit h hyperglycemia E10.65 [facility] [address] [facility] [place] [id number] [address] [place] [phone] Oct, Type 1 diabetes mellitus wit h hyperglycemia E10.65 [facility] [address] [facility] [place] [id number] [address] [place] [phone] Oct, Type 1 diabetes mellitus wit h hyperglycemia E10.65 [facility] [id number] [place] [address] Sep, Type 1 diabetes mellitus wit h hyperglycemia E10.65 [facility] [address] [facility] [place] [id number] [address] [place] [phone] Aug, Type 1 diabetes mellitus wit h hyperglycemia E10.65 [facility] [address] [facility] [place] [id number] [address] [place] [id number] Aug, [facility] [address] [facility] [place] [id number] [address] [place] [address] Aug, Type 1 diabetes mellitus wit h hyperglycemia E10.65 [facility] [address] [id number] [address] [place] [id number] 12 Aug, 2017 Encounter for immunization Z 23 [facility] [address] [id number] [address] [place] [phone] Aug, Type 1 diabetes mellitus wit h hyperglycemia E10.65 [facility] [address] [facility] [place] [id number] [address] [place] [address] Jul, Type 1 diabetes mellitus wit h hyperglycemia E10.65 [facility] [address] [id number] [address] [place] [id number] Jul, Type 1 diabetes mellitus wit h hyperglycemia E10.65 [facility] [address] [id number] [address] [place] [phone] May, Type 1 diabetes mellitus wit h hyperglycemia E10.65 [facility] [address] [id number] [address] [place] [address] May, [facility] [address] [id number] [address] [place] [phone] Apr, [facility] [address] [id number] [address] [place] [address] Apr, Type 1 diabetes mellitus wit h hyperglycemia E10.65 [facility] [address] [id number] [address] [place] [address] March, [facility] [address] [id number] [address] [place] [phone] March, [facility] [address] [id number] [address] [place] [phone] Jan, [facility] [address] [id number] [address] [place] [phone] Jan, [facility] [address] [facility] [place] [id number] [address] [place] [address] Jan, Type 1 diabetes mellitus wit h diabetic polyneuropathy E10.42 [facility] [address] [id number] [address] [place] [address] Jan, Type 1 diabetes mellitus wit h hyperglycemia E10.65 ; Excessive cerumen in both ear canals H61.23 and Controlled diabetes mellitus type 1 without complications E10.9 [facility] [address] [id number] [address] [place] [phone] 16 Dec, 2016 [facility] [address] [id number] [address] [place] [phone] Dec, [facility] [address] [id number] [address] [place] [phone] Dec, [facility] [address] [id number] [address] [place] [phone] Dec, [facility] [address] [facility] [id number] [address] [place] [phone] Nov, [facility] [address] [id number] [address] [place] [phone] Nov, [facility] [address] [id number] [address] [place] [address] Oct, Type 1 diabetes mellitus wit h hyperglycemia E10.65 [facility] [address] [id number] [address] [place] [phone] Sep, [facility] [address] [facility] [id number] [address] [place] [phone] Sep, [facility] [address] [facility] [id number] [address] [place] [address] Sep, Controlled diabetes mellitus type 1 without complications E10.9 [facility] [address] [id number] [address] [place] [phone] Sep, [facility] [address] [id number] [address] [place] [address] [id number] Aug, Dental caries K02.9 [facility] [address] [facility] [facility] [id number] [address] [place] [id number] Aug, Type 1 diabetes mellitus wit h diabetic polyneuropathy E10.42 [facility] [address] [id number] [address] [place] [id number] Aug, [facility] [address] [id number] [address] [place] [phone] Aug, [facility] [address] [id number] [address] [place] [phone] Aug, [facility] [address] [id number] [address] [place] [phone] Jul, Type 1 diabetes mellitus wit h hyperglycemia E10.65 [facility] [address] [id number] [address] [place] [phone] Jul, Type 1 diabetes mellitus wit h hyperglycemia E10.65 ; Tooth pain K08.8 and Encounter for immunization Z23 [facility] [address] [id number] [address] [place] [address] [id number] 08 Jul, 2016 Dental examination Z01.20 [facility] [address] [id number] [address] [place] [phone] Jul, [facility] [address] [id number] [address] [place] [phone] Jul, [facility] [address] [id number] [address] [place] [phone] Jul, [facility] [address] [id number] [address] [place] [phone] Jun, [facility] [address] [id number] [address] [place] [phone] May, [facility] [address] [id number] [address] [place] [phone] Apr, [facility] [address] [id number] [address] [place] [phone] Apr, [facility] [address] [id number] [address] [place] [phone] Apr, [facility] [address] [id number] [address] [place] [phone] March, [facility] [address] [id number] [address] [place] [phone] March, [facility] [address] [facility] [id number] [address] [place] [phone] Feb, [facility] [address] [facility] [id number] [address] [place] [phone] Feb, [facility] [address] [id number] [address] [place] [phone] Feb, Type 1 diabetes mellitus wit h hyperglycemia E10.65 [facility] [address] [facility] [id number] [address] [place] [phone] Jan, [facility] [address] [facility] [id number] [address] [place] [phone] Jan, [facility] [address] [facility] [id number] [address] [place] [phone] Jan, [facility] [address] [facility] [id number] [address] [place] [phone] Jan, [facility] [address] [facility] [id number] [address] [place] [phone] Dec, [facility] [address] [facility] [id number] [address] [place] [phone] Nov, [facility] [address] [facility] [id number] [address] [place] [phone] Nov, [facility] [address] [facility] [id number] [address] [place] [phone] Oct, [facility] [address] [facility] [id number] [address] [place] [phone] Oct, Type 1 diabetes mellitus wit h 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 ; Type 1 diabetes mellitus with hyperglycemia E10.65 ; Gastroparesis K31.84 and Esophageal stricture K22.2 [facility] [address] [id number] [address] [place] [phone] Oct, [facility] [address] [id number] [address] [place] [id number] Sep, [facility] [address] [id number] [address] [place] [phone] Sep, Type 1 diabetes mellitus wit h other diabetic neurological complication E10.49 [facility] [address] [id number] [address] [place] [id number] Aug, Encounter for immunization Z 23 [facility] [address] [id number] [address] [place] [id number] Aug, [facility] [address] [id number] [address] [place] [phone] Aug, [facility] [address] [id number] [address] [place] [phone] Jul, [facility] [address] [id number] [address] [place] [id number] Jul, [facility] [address] [id number] [address] [place] [phone] Jun, [facility] [address] [id number] [address] [place] [phone] Jun, [facility] [address] [id number] [address] [place] [phone] Jun, [facility] [address] [id number] [address] [place] [phone] May, [facility] [address] [id number] [address] [place] [phone] May, [facility] [address] [id number] [address] [place] [phone] May, Diabetes type 1, controlled 250.01 [facility] [address] [id number] [address] [place] [address] May, [facility] [address] [id number] [address] [place] [address] May, [facility] [address] [id number] [address] [place] [id number] Apr, Dental examination V72.2 [facility] [address] [id number] [address] [place] [address] Apr, [facility] [address] [id number] [address] [place] [address] Apr, [facility] [address] [id number] [address] [place] [address] Apr, [facility] [address] [id number] [address] [place] [address] Apr, [facility] [address] [id number] [address] [place] [address] Apr, [facility] [address] [id number] [address] [place] [address] [id number] Apr, Dental examination V72.2 [facility] [address] [id number] [address] [place] [address] Apr, [facility] [address] [id number] [address] [place] [address] Apr, [facility] [address] [id number] [address] [place] [address] March, Diabetes mellitus type 1 250 .01 [facility] [address] [id number] [address] [place] [address] March, [facility] [address] [id number] [address] [place] [address] Feb, [facility] [address] [id number] [address] [place] [address] Feb, [facility] [address] [id number] [address] [place] [address] Jan, [facility] [address] [id number] [address] [place] [address], [place] [address] Jan, [facility] [address] [id number] [address] [place] [address], [place] [address] Jan, [facility] [address] [id number] [address] [place] [address], [place] [address] Jan, [facility] [address] [id number] [address] [place] [address], [place] [address] Dec, [facility] [address] [id number] [address] [place] [address], [place] [address] Dec, [facility] [address] [id number] [address] [place] [address], [place] [address] Nov, [facility] [address] [id number] [address] [place] [address], [place] [address] Nov, [facility] [address] [id number] [address] [place] [address], [place] [address] Nov, [facility] [address] [id number] [address] [place] [address], [place] [address] Nov, [facility] [address] [id number] [address] [place] [address], [place] [address] Nov, [facility] [address] [id number] [address] [place] [address], [place] [address] Nov, [facility] [address] [id number] [address] [place] [address], [place] [address] Nov, [facility] [address] [id number] [address] [place] [address], [place] [address] Oct, [facility] [address] [id number] [address] [place] [address], [place] [address] Oct, [facility] [address] [id number] [address] [place] [address], [place] [address] Sep, [facility] [address] [id number] [address] [place] [address], [place] [address] Aug, [facility] [address] [id number] [address] [place] [address], [place] [address] Aug, [facility] [address] [id number] [address] [place] [address], [place] [address] Aug, [facility] [address] [id number] [address] [place] [address], [place] [address] Aug, [facility] [address] [id number] [address] [place] [address], [place] [address] Aug, [facility] [address] [id number] [address] [place] [address], [place] [address] Aug, [facility] [address] [id number] [address] [place] [address], [place] [address] Aug, [facility] [address] [id number] [address] [place] [address], [place] [address] Aug, [facility] [address] [id number] [address] [place] [address], [place] [address] Aug, [facility] [address] [id number] [address] [place] [address], [place] [address] Aug, [facility] [address] [id number] [address] [place] [address] Aug, [facility] [address] [id number] [address] [place] [address] Aug, [facility] [address] [id number] [address] [place] [address] Aug, [facility] [address] [id number] [address] [place] [address] Aug, [facility] [address] [id number] [address] [place] [address] Jul, [facility] [address] [id number] [address] [place] [address] Jul, [facility] [address] [id number] [address] [place] [address] Jul, [facility] [address] [id number] [address] [place] [address], [place] [address] Jul, [facility] [address] [id number] [address] [place] [address], [place] [address] Jun, [facility] [address] [id number] [address] [place] [address], [place] [address] Jun, [facility] [address] [id number] [address] [place] [address], [place] [address] Jun, [facility] [address] [id number] [address] [place] [address], [place] [address] Jun, [facility] [address] [id number] [address] [place] [address], [place] [address] May, [facility] [address] [id number] [address] [place] [address], [place] [address] May, [facility] [address] [id number] [address] [place] [address], [place] [address] May, [facility] [address] [id number] [address] [place] [address], [place] [address] May, [facility] [address] [id number] [address] [place] [address], [place] [address] May, [facility] [address] [id number] [address] [place] [address], [place] [address] May, [facility] [address] [id number] [address] [place] [address], [place] [address] May, [facility] [address] [id number] [address] [place] [address], [place] [address] May, [facility] [address] [id number] [address] [place] [address], [place] [address] May, [facility] [address] [id number] [address] [place] [address], [place] [address] May, [facility] [address] [id number] [facility] [place] [address] May, [facility] [address] [id number] [facility] [place] [address] May, [facility] [address] [id number] [facility] [place] [address] May, [facility] [address] [id number] [facility] [place] [address] Apr, [facility] [address] [id number] [facility] [place] [address] Apr, [facility] [address] [id number] [address] [place] [address], [place] [address] Apr, [facility] [address] [id number] [address] [place] [address], [place] [address] Apr, [facility] [address] [id number] [address] [place] [address], [place] [address] Apr, [facility] [address] [id number] [address] [place] [address], [place] [address] Apr, [facility] [address] [id number] [address] [place] [address], [place] [address] Apr, [facility] [address] [id number] [address] [place] [address], [place] [address] Apr, [facility] [address] [id number] [address] [place] [address], [place] [address] Apr, [facility] [address] [id number] [address] [place] [address], [place] [address] Apr, [facility] [address] [id number] [address] [place] [address], [place] [address] Apr, [facility] [address] [id number] [address] [place] [address], [place] [address] Apr, [facility] [address] [id number] [address] [place] [address], [place] [address] Apr, [facility] [address] [id number] [address] [place] [address], [place] [address] Apr, [facility] [address] [id number] [address] [place] [address], [place] [address] March, [facility] [address] [id number] [address] [place] [address], [place] [address] March, [facility] [address] [id number] [address] [place] [address], [place] [address] March, [facility] [address] [id number] [address] [place] [address], [place] [address] March, [facility] [address] [id number] [address] [place] [address], [place] [address] March, [facility] [address] [id number] [address] [place] [address], [place] [address] March, [facility] [address] [id number] [address] [place] [address], [place] [address] March, [facility] [address] [id number] [address] [place] [address], [place] [address] March, [facility] [address] [id number] [address] [place] [address], [place] [address] March, [facility] [address] [id number] [address] [place] [address], [place] [address] March, [facility] [address] [id number] [address] [place] [address], [place] [address] Feb, [facility] [address] [id number] [address] [place] [address], [place] [address] Feb, [facility] [address] [id number] [address] [place] [address], [place] [address] Feb, [facility] [address] [id number] [address] [place] [address], [place] [address] Feb, [facility] [address] [id number] [facility] [place] [address] 10 Feb, 2014 [facility] [address] [id number] [address] [place] [address], [place] [address] 10 Feb, 2014 [facility] [address] [id number] [facility] [place] [address] Feb, [facility] [address] [id number] [address] [place] [address], [place] [address] Feb, [facility] [address] [id number] [address] [place] [address], [place] [address] Jan, [facility] [address] [id number] [address] [place] [address], [place] [address] Jan, [facility] [address] [id number] [address] [place] [address], [place] [address] Jan, [facility] [address] [id number] [address] [place] [address], [place] [address] Jan, [facility] [address] [id number] [address] [place] [address], [place] [address] Jan, [facility] [address] [id number] [address] [place] [address], [place] [address] Jan, [facility] [address] [id number] [address] [place] [address], [place] [address] Jan, [facility] [address] [id number] [address] [place] [address], [place] [address] Jan, [facility] [address] [id number] [address] [place] [address], [place] [address] Jan, [facility] [address] [id number] [address] [place] [address], [place] [address] Jan, [facility] [address] [id number] [address] [place] [address], [place] [address] Dec, [facility] [address] [id number] [address] [place] [address], [place] [address] Dec, [facility] [address] [id number] [address] [place] [address], [place] [address] Nov, [facility] [address] [id number] [address] [place] [address], [place] [address] Nov, [facility] [address] [id number] [address] [place] [address], [place] [address] Nov, [facility] [address] [id number] [address] [place] [address], [place] [address] Nov, [facility] [address] [id number] [address] [place] [address], [place] [address] Nov, [facility] [address] [id number] [address] [place] [address], [place] [address] Nov, [facility] [address] [id number] [address] [place] [address], [place] [address] Nov, [facility] [address] [id number] [address] [place] [address], [place] [address] Nov, [facility] [address] [id number] [address] [place] [address], [place] [address] Oct, [facility] [address] [id number] [address] [place] [address], [place] [address] Oct, [facility] [address] [id number] [address] [place] [address], [place] [address] Oct, [facility] [address] [id number] [address] [place] [address], [place] [address] Oct, [facility] [address] [id number] [address] [place] [address], [place] [address] Oct, [facility] [address] [id number] [address] [place] [address], [place] [address] Oct, [facility] [address] [id number] [address] [place] [address], [place] [address] Sep, [facility] [address] [id number] [address] [place] [address] Sep, [facility] [address] [id number] [address] [place] [address], [place] [address] Sep, [facility] [address] [id number] [address] [place] [address] Sep, [facility] [address] [id number] [address] [place] [address], [place] [address] Sep, [facility] [address] [id number] [address] [place] [address], [place] [address] Aug, [facility] [address] [id number] [address] [place] [address], [place] [address] Aug, [facility] [address] [id number] [address] [place] [address], [place] [address] Aug, [facility] [address] [id number] [address] [place] [address], [place] [address] Aug, [facility] [address] [id number] [address] [place] [address], [place] [address] Aug, [facility] [address] [id number] [address] [place] [address], [place] [address] Aug, [facility] [address] [id number] [address] [place] [address], [place] [address] Jul, [facility] [address] [id number] [address] [place] [address], [place] [address] Jul, [facility] [address] [id number] [address] [place] [address], [place] [address] Jul, [facility] [address] [id number] [address] [place] [address], [place] [address] Jun, [facility] [address] [id number] [address] [place] [address], [place] [address] Jun, [facility] [address] [id number] [address] [place] [address], [place] [address] May, [facility] [address] [id number] [address] [place] [address], [place] [address] 10 May, 2013 [facility] [address] [id number] [address] [place] [address], [place] [address] 11 Apr, 2013 [facility] [address] [id number] [address] [place] [address], [place] [address] 07 Apr, 2013 [facility] [address] [id number] [address] [place] [address], [place] [address] Apr, [facility] [address] [id number] [address] [place] [address], [place] [address] March, [facility] [address] [id number] [address] [place] [address], [place] [address] Feb, [facility] [address] [id number] [address] [place] [address], [place] [address] Feb, [facility] [address] [id number] [address] [place] [address], [place] [address] Jan, [facility] [address] [id number] [address] [place] [address], [place] [address] Jan, [facility] [address] [id number] [address] [place] [address], [place] [address] Jan, [facility] [address] [id number] [address] [place] [address], [place] [address] Jan, [facility] [address] [id number] [address] [place] [address], [place] [address] Jan, [facility] [address] [id number] [address] [place] [address], [place] [address] 28 Dec, 2012 [facility] [address] [id number] [address] [place] [address], [place] [address] 27 Dec, 2012 [facility] [address] [id number] [address] [place] [address], [place] [address] 18 Dec, 2012 [facility] [address] [id number] [address] [place] [address], [place] [phone] Dec, [facility] [address] [id number] [address] [place] [address], [place] [address] Dec, [facility] [address] [id number] [address] [place] [address], [place] [address] Dec, [facility] [place] [id number] Nov, [facility] [address] [id number] [address] [place] [address], [place] [phone] Nov, [facility] [address] [id number] [address] [place] [address], [place] [address] Nov, [facility] [address] [id number] [address] [place] [address], [place] [address] Nov, [facility] [address] [id number] [address] [place] [address], [place] [phone] Nov, [facility] [address] [id number] [address] [place] [address], [place] [address] Oct, [facility] [address] [id number] [address] [place] [address], [place] [address] Oct, [facility] [address] [id number] [address] [place] [address], [place] [address] Oct, [facility] [address] [id number] [address] [place] [address], [place] [address] Oct, [facility] [address] [id number] [address] [place] [address], [place] [address] Oct, [facility] [address] [id number] [address] [place] [address], [place] [address] Oct, [facility] [address] [id number] [address] [place] [address], [place] [address] Oct, [facility] [address] [id number] [address] [place] [address], [place] [address] Oct, [facility] [address] [id number] [address] [place] [address], [place] [address] Sep, [facility] [address] [id number] [address] [place] [address], [place] [address] Sep, [facility] [address] [id number] [address] [place] [address], [place] [address] Sep, [facility] [address] [id number] [address] [place] [address], [place] [address] Sep, [facility] [address] [id number] [address] [place] [address], [place] [address] Sep, [facility] [address] [id number] [address] [place] [address], [place] [address] Sep, [facility] [address] [id number] [address] [place] [address], [place] [address] Sep, [facility] [address] [id number] [address] [place] [address], [place] [address] Sep, [facility] [address] [id number] [address] [place] [address], [place] [address] Sep, [facility] [address] [id number] [address] [place] [address], [place] [address] Sep, [facility] [address] [id number] [address] [place] [address], [place] [address] Sep, [facility] [address] [id number] [address] [place] [address], [place] [address] Sep, [facility] [address] [id number] [address] [place] [phone] Sep, [facility] [address] [id number] [address] [place] [phone] Sep, [facility] [address] [id number] [address] [place] [phone] Sep, [facility] [address] [id number] [address] [place] [phone] Sep, IMMUNIZATIONS No Known Immunizations SOCIAL HISTORY [...]
--- OUTSIDE RECORDS SUMMARY | 2020-04-17 21:19 | XMS REPORT ---
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 Active 25084945 Problem Other chronic pain G89.29 Active 8 1849505 Problem Hypertension, essential I10 Active 20624058 Problem Vitamin D deficiency E55.9 Active 56592756 Problem Mood disorder F39 Active 632760 05 Problem Type 1 diabetes mellitus with hyperglycemia E10.65 Active 312803776064598 Problem Type 1 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 Active 10653525 Problem Chronic fatigue R53.82 Active 8422 9001 Problem Controlled diabetes mellitus type 1 without complications E10.9 Active 11106225 ALLERGIES No Information ENCOUNTERS Encounter Location Date Diagnosis [place] [address] [place] [id number] [address] [place] [id number] 02 Feb, 2020 Type 1 diabetes mellitus wit h other diabetic neurological complication E10.49 [place] [id number] [place] [address] Jan, Type 1 diabetes mellitus wit h other diabetic neurological complication E10.49 [place] [address] [place] [id number] [address] [place] [address] Jan, Type 1 diabetes mellitus wit h other diabetic neurological complication E10.49 [place] [address] [place] [id number] [address] [place] [address] 03 Dec, 2019 Type 1 diabetes mellitus wit h other diabetic neurological complication E10.49 [place] [address] [place] [id number] [address] [place] [address] Nov, Type 1 diabetes mellitus wit h diabetic polyneuropathy E10.42 ; Mood disorder F39 ; Vitamin D deficiency E55.9 and Renal insufficiency N28.9 [facility] [address] [facility] [id number] [address] [place] [address] Nov, Type 1 diabetes mellitus wit h other diabetic neurological complication E10.49 [facility] [address] [facility] [id number] [address] [place] [address] Oct, Other chronic pain G89.29 [facility] [address] [facility] [id number] [address] [place] [address] Oct, Type 1 diabetes mellitus wit h other diabetic neurological complication E10.49 [facility] [address] [place] [id number] [address] [place] [address] Oct, [facility] [address] [place] [id number] [address] [place] [address] Aug, Type 1 diabetes mellitus wit h other diabetic neurological complication E10.49 [facility] [address] [place] [id number] [address] [place] [id number] 14 Aug, 2019 Encounter for immunization Z 23 [facility] [address] [place] [id number] [address] [place] [phone] 08 Aug, 2019 Vitamin D deficiency E55.9 [facility] [address] [facility] [id number] [address] [place] [address] Jul, Type 1 diabetes mellitus wit h other diabetic neurological complication E10.49 [facility] [address] [facility] [id number] [address] [place] [address] Jul, Type 1 diabetes mellitus wit h hyperglycemia E10.65 [facility] [address] [facility] [id number] [address] [place] [id number] Jun, Type 1 diabetes mellitus wit h other diabetic neurological complication E10.49 [facility] [address] [facility] [id number] [address] [place] [address] May, [facility] [address] [place] [id number] [address] [place] [id number] May, [facility] [address] [id number] [address] [place] [address] May, Other chronic pain G89.29 [facility] [address] [id number] [address] [place] [id number] May, [facility] [address] [id number] [address] [place] [address] May, Type 1 diabetes mellitus wit h other diabetic neurological complication E10.49 [facility] [address] [id number] [address] [place] [address] Apr, [facility] [address] [id number] [address] [place] [address] Apr, Type 1 diabetes mellitus wit h other diabetic neurological complication E10.49 [facility] [address] [id number] [address] [place] [address] Apr, Encounter for Medicare annua l wellness exam Z00.00 [facility] [address] [id number] [address] [place] [address] March, Encounter for Medicare annua l wellness exam Z00.00 and Type 1 diabetes mellitus with other diabetic neurological complication E10.49 [facility] [address] [id number] [address] [place] [address] Feb, Type 1 diabetes mellitus wit h other diabetic neurological complication E10.49 [facility] [address] [id number] [address] [place] [id number] Feb, Encounter for Medicare annua l wellness exam Z00.00 ; Mood disorder F39 ; Type 1 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 ; Hypertension, essential I10 and Chronic fatigue R53.82 [facility] [address] [id number] [address] [place] [address] Jan, Type 1 diabetes mellitus wit h other diabetic neurological complication E10.49 [facility] [address] [id number] [address] [place] [address] Jan, [facility] [address] [id number] [address] [place] [address] Jan, Other chronic pain G89.29 [facility] [address] [id number] [address] [place] [id number] 11 Dec, 2018 [facility] [address] [facility] [id number] [address] [place] [address] 08 Dec, 2018 Type 1 diabetes mellitus wit h other diabetic neurological complication E10.49 [facility] [address] [id number] [address] [place] [address] 05 Dec, 2018 Other chronic pain G89.29 [facility] [address] [id number] [address] [place] [id number] Nov, [facility] [address] [id number] [address] [place] [id number] Nov, Caries K02.9 [facility] [address] [facility] [id number] [address] [place] [address] Nov, Type 1 diabetes mellitus wit h other diabetic neurological complication E10.49 [facility] [address] [facility] [id number] [address] [place] [address] Nov, Controlled diabetes mellitus type 1 without complications E10.9 ; Other chronic pain G89.29 and Pain in left knee M25.562 [facility] [address] [id number] [address] [place] [address] [id number] Oct, Dental examination Z01.20 [facility] [address] [id number] [address] [place] [address] 14 Oct, 2018 Cutaneous abscess of unspeci fied foot L02.619 and Cellulitis of unspecified part of limb L03.119 [facility] [address] [id number] [address] [place] [id number] 11 Oct, 2018 [facility] [address] [facility] [id number] [address] [place] [address] Oct, Type 1 diabetes mellitus wit h other diabetic neurological complication E10.49 [facility] [address] [id number] [address] [place] [address] [id number] 06 Oct, 2018 Dental examination Z01.20 an d Caries K02.9 [facility] [address] [facility] [id number] [address] [place] [id number] 04 Oct, 2018 Cutaneous abscess of left fo ot L02.612 and Cellulitis of left lower limb L03.116 [facility] [address] [facility] [id number] [address] [place] [address] 04 Oct, 2018 Dental examination Z01.20 an d Pain, dental K08.89 [facility] [address] [facility] [id number] [address] [place] [address] Sep, Left foot pain M79.672 and L eft anterior knee pain M25.562 [facility] [address] [facility] [id number] [address] [place] [address] Sep, Type 1 diabetes mellitus wit h other diabetic neurological complication E10.49 [facility] [address] [facility] [id number] [address] [place] [address] Sep, [facility] [address] [facility] [id number] [address] [place] [id number] 11 Aug, 2018 Type 1 diabetes mellitus wit h other diabetic neurological complication E10.49 [facility] [address] [facility] [id number] [address] [place] [id number] 10 Aug, 2018 Encounter for immunization Z 23 [facility] [address] [facility] [id number] [address] [place] [address] 05 Aug, 2018 Type 1 diabetes mellitus wit h hyperglycemia E10.65 [facility] [address] [facility] [id number] [address] [place] [address] Jul, Type 1 diabetes mellitus wit h hyperglycemia E10.65 [facility] [address] [facility] [id number] [address] [place] [id number] Jul, [facility] [address] [facility] [id number] [address] [place] [id number] Jul, [facility] [address] [id number] [address] [place] [id number] Jul, Type 1 diabetes mellitus wit h other diabetic neurological complication E10.49 [facility] [address] [id number] [address] [place] [id number] Jul, Type 1 diabetes mellitus wit h other diabetic neurological complication E10.49 and Mood disorder F39 [facility] [address] [id number] [address] [place] [id number] Jun, [facility] [address] [facility] [id number] [address] [place] [address] Jun, Type 1 diabetes mellitus wit h other diabetic neurological complication E10.49 and Chronic fatigue R53.82 [facility] [address] [id number] [address] [place] [address] May, Type 1 diabetes mellitus wit h other diabetic neurological complication E10.49 [facility] [address] [id number] [address] [place] [address] May, [facility] [address] [id number] [address] [place] [phone] May, [facility] [address] [facility] [id number] [address] [place] [phone] Apr, [facility] [address] [facility] [id number] [address] [place] [address] Apr, Type 1 diabetes mellitus wit h other diabetic neurological complication E10.49 [facility] [address] [id number] [address] [place] [address] March, [facility] [address] [id number] [address] [place] [address] Feb, [facility] [address] [facility] [id number] [address] [place] [address] Feb, Type 1 diabetes mellitus wit h other diabetic neurological complication E10.49 ; Tobacco abuse Z72.0 and Tobacco abuse counseling Z71.6 [facility] [address] [facility] [id number] [address] [place] [address] Jan, Type 1 diabetes mellitus wit h hyperglycemia E10.65 [facility] [address] [facility] [id number] [address] [place] [address] Jan, [facility] [address] [facility] [id number] [address] [place] [phone] Dec, Tobacco abuse Z72.0 [facility] [address] [facility] [id number] [address] [place] [address] Dec, Type 1 diabetes mellitus wit h hyperglycemia E10.65 [facility] [address] [facility] [id number] [id number] Dec, Type 1 diabetes mellitus wit h hyperglycemia E10.65 ; Tobacco abuse Z72.0 and Tobacco abuse counseling Z71.6 [facility] [address] [facility] [id number] [address] [place] [address] Nov, Type 1 diabetes mellitus wit h hyperglycemia E10.65 [facility] [address] [facility] [id number] [address] [place] [address] Oct, Type 1 diabetes mellitus wit h hyperglycemia E10.65 [facility] [address] [facility] [id number] [address] [place] [address] Oct, Type 1 diabetes mellitus wit h hyperglycemia E10.65 [facility] [id number] [place] [address] Sep, Type 1 diabetes mellitus wit h hyperglycemia E10.65 [facility] [address] [facility] [id number] [address] [place] [address] Aug, Type 1 diabetes mellitus wit h hyperglycemia E10.65 [facility] [address] [facility] [id number] [address] [place] [address] Aug, [facility] [address] [facility] [id number] [address] [place] [address] Aug, Type 1 diabetes mellitus wit h hyperglycemia E10.65 [facility] [address] [id number] [address] [place] [id number] 12 Aug, 2017 Encounter for immunization Z 23 [facility] [address] [id number] [address] [place] [id number] Aug, Type 1 diabetes mellitus wit h hyperglycemia E10.65 [facility] [address] [facility] [id number] [address] [place] [address] Jul, Type 1 diabetes mellitus wit h hyperglycemia E10.65 [facility] [address] [id number] [address] [place] [address] Jul, Type 1 diabetes mellitus wit h hyperglycemia E10.65 [facility] [address] [id number] [address] [place] [address] May, Type 1 diabetes mellitus wit h hyperglycemia E10.65 [facility] [address] [id number] [address] [place] [address] May, [facility] [address] [id number] [address] [place] [address] Apr, [facility] [address] [id number] [address] [place] [address] Apr, Type 1 diabetes mellitus wit h hyperglycemia E10.65 [facility] [address] [id number] [address] [place] [address] March, [facility] [address] [id number] [address] [place] [phone] March, [facility] [address] [id number] [address] [place] [phone] Jan, [facility] [address] [id number] [address] [place] [address] Jan, [facility] [address] [facility] [id number] [address] [place] [id number] Jan, Type 1 diabetes mellitus wit h diabetic polyneuropathy E10.42 [facility] [address] [id number] [address] [place] [address] Jan, Type 1 diabetes mellitus wit h hyperglycemia E10.65 ; Excessive cerumen in both ear canals H61.23 and Controlled diabetes mellitus type 1 without complications E10.9 [facility] [address] [id number] [address] [place] [address] 16 Dec, 2016 [facility] [address] [id number] [address] [place] [address] Dec, [facility] [address] [id number] [address] [place] [address] Dec, [facility] [address] [id number] [address] [place] [address] Dec, [facility] [address] [facility] [id number] [address] [place] [address] Nov, [facility] [address] [id number] [address] [place] [address] Nov, [facility] [address] [id number] [address] [place] [address] Oct, Type 1 diabetes mellitus wit h hyperglycemia E10.65 [facility] [address] [id number] [address] [place] [address] Sep, [facility] [address] [facility] [id number] [address] [place] [address] Sep, [facility] [address] [facility] [id number] [address] [place] [address] Sep, Controlled diabetes mellitus type 1 without complications E10.9 [facility] [address] [id number] [address] [place] [address] Sep, [facility] [address] [id number] [address] [place] [address] [id number] Aug, Dental caries K02.9 [facility] [address] [facility] [id number] [address] [place] [address] Aug, Type 1 diabetes mellitus wit h diabetic polyneuropathy E10.42 [facility] [address] [id number] [address] [place] [address] Aug, [facility] [address] [id number] [address] [place] [id number] Aug, [facility] [address] [id number] [address] [place] [address] Aug, [facility] [address] [id number] [address] [place] [address] Jul, Type 1 diabetes mellitus wit h hyperglycemia E10.65 [facility] [address] [id number] [address] [place] [address] Jul, Type 1 diabetes mellitus wit h hyperglycemia E10.65 ; Tooth pain K08.8 and Encounter for immunization Z23 [facility] [address] [id number] [address] [place] [id number] 08 Jul, 2016 Dental examination Z01.20 [facility] [address] [id number] [address] [place] [id number] Jul, [facility] [address] [id number] [address] [place] [id number] Jul, [facility] [address] [id number] [address] [place] [phone] Jul, [facility] [address] [id number] [address] [place] [id number] Jun, [facility] [address] [id number] [address] [place] [phone] May, [facility] [address] [id number] [address] [place] [address] Apr, [facility] [address] [id number] [address] [place] [phone] Apr, [facility] [address] [id number] [address] [place] [address] Apr, [facility] [address] [id number] [address] [place] [address] March, [facility] [address] [id number] [address] [place] [address] March, [facility] [address] [facility] [id number] [address] [place] [phone] Feb, [facility] [address] [facility] [id number] [address] [place] [address] Feb, [facility] [address] [id number] [address] [place] [address] Feb, Type 1 diabetes mellitus wit h hyperglycemia E10.65 [facility] [address] [facility] [id number] [address] [place] [address] Jan, [facility] [address] [facility] [id number] [address] [place] [phone] Jan, [facility] [address] [facility] [id number] [address] [place] [address] Jan, [facility] [address] [facility] [id number] [address] [place] [id number] Jan, [facility] [address] [facility] [id number] [address] [place] [phone] Dec, [facility] [address] [facility] [id number] [address] [place] [phone] Nov, [facility] [address] [facility] [id number] [address] [place] [address] Nov, [facility] [address] [facility] [id number] [address] [place] [address] Oct, [facility] [address] [facility] [id number] [address] [place] [id number] Oct, Type 1 diabetes mellitus wit h 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 ; Type 1 diabetes mellitus with hyperglycemia E10.65 ; Gastroparesis K31.84 and Esophageal stricture K22.2 [facility] [address] [id number] [address] [place] [id number] Oct, [facility] [address] [id number] [address] [place] [address] Sep, [facility] [address] [id number] [address] [place] [address] Sep, Type 1 diabetes mellitus wit h other diabetic neurological complication E10.49 [facility] [address] [id number] [address] [place] [id number] Aug, Encounter for immunization Z 23 [facility] [address] [id number] [address] [place] [id number] Aug, [facility] [address] [id number] [address] [place] [id number] Aug, [facility] [address] [id number] [address] [place] [phone] Jul, [facility] [address] [id number] [address] [place] [id number] Jul, [facility] [address] [id number] [address] [place] [id number] Jun, [facility] [address] [id number] [address] [place] [id number] Jun, [facility] [address] [id number] [address] [place] [phone] Jun, [facility] [address] [id number] [address] [place] [phone] May, [facility] [address] [id number] [address] [place] [id number] May, [facility] [address] [id number] [address] [place] [phone] May, Diabetes type 1, controlled 250.01 [facility] [address] [id number] [address] [place] [phone] May, [facility] [address] [id number] [address] [place] [phone] May, [facility] [address] [id number] [address] [place] [id number] Apr, Dental examination V72.2 [facility] [address] [id number] [address] [place] [id number] Apr, [facility] [address] [id number] [address] [place] [phone] Apr, [facility] [address] [id number] [address] [place] [phone] Apr, [facility] [address] [id number] [address] [place], [place] [address] Apr, [facility] [address] [id number] [address] [place] [address] Apr, [facility] [address] [id number] [address] [place] [id number] Apr, Dental examination V72.2 [facility] [address] [id number] [address] [place] [address] Apr, [facility] [address] [id number] [address] [place] [address] Apr, [facility] [address] [id number] [address] [place] [address] March, Diabetes mellitus type 1 250 .01 [facility] [address] [id number] [address] [place] [address] March, [facility] [address] [id number] [address] [place] [address] Feb, [facility] [address] [id number] [address] [place] [address] Feb, [facility] [address] [id number] [address] [place] [address] Jan, [facility] [address] [id number] [address] [place] [address], [place] [address] Jan, [facility] [address] [id number] [address] [place] [address], [place] [address] Jan, [facility] [address] [id number] [address] [place] [address], [place] [address] Jan, [facility] [address] [id number] [address] [place] [address], [place] [address] Dec, [facility] [address] [id number] [address] [place] [address], [place] [address] Dec, [facility] [address] [id number] [address] [place] [address], [place] [address] Nov, [facility] [address] [id number] [address] [place] [address], [place] [address] Nov, [facility] [address] [id number] [address] [place] [address], [place] [address] Nov, [facility] [address] [id number] [address] [place] [address], [place] [address] Nov, [facility] [address] [id number] [address] [place] [address], [place] [address] Nov, [facility] [address] [id number] [address] [place] [address], [place] [address] Nov, [facility] [address] [id number] [address] [place] [address], [place] [address] Nov, [facility] [address] [id number] [address] [place] [address], [place] [address] Oct, [facility] [address] [id number] [address] [place] [address], [place] [address] Oct, [facility] [address] [id number] [address] [place] [address], [place] [address] Sep, [facility] [address] [id number] [address] [place] [address], [place] [address] Aug, [facility] [address] [id number] [address] [place] [address], [place] [address] Aug, [facility] [address] [id number] [address] [place] [address], [place] [address] Aug, [facility] [address] [id number] [address] [place] [address], [place] [address] Aug, [facility] [address] [id number] [address] [place] [address], [place] [address] Aug, [facility] [address] [id number] [address] [place] [address], [place] [address] Aug, [facility] [address] [id number] [address] [place] [address], [place] [address] Aug, [facility] [address] [id number] [address] [place] [address], [place] [address] Aug, [facility] [address] [id number] [address] [place] [address], [place] [address] Aug, [facility] [address] [id number] [address] [place] [address], [place] [address] Aug, [facility] [address] [id number] [address] [place] [address] Aug, [facility] [address] [id number] [address] [place] [address] Aug, [facility] [address] [id number] [address] [place] [address] Aug, [facility] [address] [id number] [address] [place] [address] Aug, [facility] [address] [id number] [address] [place] [address] Jul, [facility] [address] [id number] [address] [place] [address] Jul, [facility] [address] [id number] [address] [place] [address] Jul, [facility] [address] [id number] [address] [place] [address], [place] [address] Jul, [facility] [address] [id number] [address] [place] [address], [place] [address] Jun, [facility] [address] [id number] [address] [place] [address], [place] [address] Jun, [facility] [address] [id number] [address] [place] [address], [place] [address] Jun, [facility] [address] [id number] [address] [place] [address], [place] [address] Jun, [facility] [address] [id number] [address] [place] [address], [place] [address] May, [facility] [address] [id number] [address] [place] [address], [place] [address] May, [facility] [address] [id number] [address] [place] [address], [place] [address] May, [facility] [address] [id number] [address] [place] [address], [place] [address] May, [facility] [address] [id number] [address] [place] [address], [place] [address] May, [facility] [address] [id number] [address] [place] [address], [place] [address] May, [facility] [address] [id number] [address] [place] [address], [place] [address] May, [facility] [address] [id number] [address] [place] [address], [place] [address] May, [facility] [address] [id number] [address] [place] [address], [place] [address] May, [facility] [address] [id number] [address] [place] [address], [place] [address] May, [facility] [address] [id number] [facility] [place] [address] May, [facility] [address] [id number] [facility] [place] [address] May, [facility] [address] [id number] [facility] [place] [address] May, [facility] [address] [id number] [facility] [place] [address] Apr, [facility] [address] [id number] [facility] [place] [address] Apr, [facility] [address] [id number] [address] [place] [address], [place] [address] Apr, [facility] [address] [id number] [address] [place] [address], [place] [address] Apr, [facility] [address] [id number] [address] [place] [address], [place] [address] Apr, [facility] [address] [id number] [address] [place] [address], [place] [address] Apr, [facility] [address] [id number] [address] [place] [address], [place] [address] Apr, [facility] [address] [id number] [address] [place] [address], [place] [address] Apr, [facility] [address] [id number] [address] [place] [address], [place] [address] Apr, [facility] [address] [id number] [address] [place] [address], [place] [address] Apr, [facility] [address] [id number] [address] [place] [address], [place] [address] Apr, [facility] [address] [id number] [address] [place] [address], [place] [address] Apr, [facility] [address] [id number] [address] [place] [address], [place] [address] Apr, [facility] [address] [id number] [address] [place] [address], [place] [address] Apr, [facility] [address] [id number] [address] [place] [address], [place] [address] March, [facility] [address] [id number] [address] [place] [address], [place] [address] March, [facility] [address] [id number] [address] [place] [address], [place] [address] March, [facility] [address] [id number] [address] [place] [address], [place] [address] March, [facility] [address] [id number] [address] [place] [address], [place] [address] March, [facility] [address] [id number] [address] [place] [address], [place] [address] March, [facility] [address] [id number] [address] [place] [address], [place] [address] March, [facility] [address] [id number] [address] [place] [address], [place] [address] March, [facility] [address] [id number] [address] [place] [address], [place] [address] March, [facility] [address] [id number] [address] [place] [address], [place] [address] March, [facility] [address] [id number] [address] [place] [address], [place] [address] Feb, [facility] [address] [id number] [address] [place] [address], [place] [address] Feb, [facility] [address] [id number] [address] [place] [address], [place] [address] Feb, [facility] [address] [id number] [address] [place] [address], [place] [address] Feb, [facility] [address] [id number] [facility] [place] [address] 10 Feb, 2014 [facility] [address] [id number] [address] [place] [address], [place] [address] 10 Feb, 2014 [facility] [address] [id number] [facility] [place] [address] Feb, [facility] [address] [id number] [address] [place] [address], [place] [address] Feb, [facility] [address] [id number] [address] [place] [address], [place] [address] Jan, [facility] [address] [id number] [address] [place] [address], [place] [address] Jan, [facility] [address] [id number] [address] [place] [address], [place] [address] Jan, [facility] [address] [id number] [address] [place] [address], [place] [address] Jan, [facility] [address] [id number] [address] [place] [address], [place] [address] Jan, [facility] [address] [id number] [address] [place] [address], [place] [address] Jan, [facility] [address] [id number] [address] [place] [address], [place] [address] Jan, [facility] [address] [id number] [address] [place] [address], [place] [address] Jan, [facility] [address] [id number] [address] [place] [address], [place] [address] Jan, [facility] [address] [id number] [address] [place] [address], [place] [address] Jan, [facility] [address] [id number] [address] [place] [address], [place] [address] Dec, [facility] [address] [id number] [address] [place] [address], [place] [address] Dec, [facility] [address] [id number] [address] [place] [address], [place] [address] Nov, [facility] [address] [id number] [address] [place] [address], [place] [address] Nov, [facility] [address] [id number] [address] [place] [address], [place] [address] Nov, [facility] [address] [id number] [address] [place] [address], [place] [address] Nov, [facility] [address] [id number] [address] [place] [address], [place] [address] Nov, [facility] [address] [id number] [address] [place] [address], [place] [address] Nov, [facility] [address] [id number] [address] [place] [address], [place] [address] Nov, [facility] [address] [id number] [address] [place] [address], [place] [address] Nov, [facility] [address] [id number] [address] [place] [address], [place] [address] Oct, [facility] [address] [id number] [address] [place] [address], [place] [address] Oct, [facility] [address] [id number] [address] [place] [address], [place] [address] Oct, [facility] [address] [id number] [address] [place] [address], [place] [address] Oct, [facility] [address] [id number] [address] [place] [address], [place] [address] Oct, [facility] [address] [id number] [address] [place] [address], [place] [address] Oct, [facility] [address] [id number] [address] [place] [address], [place] [address] Sep, [facility] [address] [id number] [address] [place] [address] Sep, [facility] [address] [id number] [address] [place] [address], [place] [address] Sep, [facility] [address] [id number] [address] [place] [address] Sep, [facility] [address] [id number] [address] [place] [address], [place] [address] Sep, [facility] [address] [id number] [address] [place] [address], [place] [address] Aug, [facility] [address] [id number] [address] [place] [address], [place] [address] Aug, [facility] [address] [id number] [address] [place] [address], [place] [address] Aug, [facility] [address] [id number] [address] [place] [address], [place] [address] Aug, [facility] [address] [id number] [address] [place] [address], [place] [address] Aug, [facility] [address] [id number] [address] [place] [address], [place] [address] Aug, [facility] [address] [id number] [address] [place] [address], [place] [address] Jul, [facility] [address] [id number] [address] [place] [address], [place] [address] Jul, [facility] [address] [id number] [address] [place] [address], [place] [address] Jul, [facility] [address] [id number] [address] [place] [address], [place] [address] Jun, [facility] [address] [id number] [address] [place] [address], [place] [address] Jun, [facility] [address] [id number] [address] [place] [address], [place] [address] May, [facility] [address] [id number] [address] [place] [address], [place] [address] 10 May, 2013 [facility] [address] [id number] [address] [place] [address], [place] [address] 11 Apr, 2013 [facility] [address] [id number] [address] [place] [address], [place] [address] 07 Apr, 2013 [facility] [address] [id number] [address] [place] [address], [place] [address] Apr, [facility] [address] [id number] [address] [place] [address], [place] [address] March, [facility] [address] [id number] [address] [place] [address], [place] [address] Feb, [facility] [address] [id number] [address] [place] [address], [place] [address] Feb, [facility] [address] [id number] [address] [place] [address], [place] [address] Jan, [facility] [address] [id number] [address] [place] [address], [place] [address] Jan, [facility] [address] [id number] [address] [place] [address], [place] [address] Jan, [facility] [address] [id number] [address] [place] [address], [place] [address] Jan, [facility] [address] [id number] [address] [place] [address], [place] [address] Jan, [facility] [address] [id number] [address] [place] [address], [place] [address] 28 Dec, 2012 [facility] [address] [id number] [address] [place] [address], [place] [address] 27 Dec, 2012 [facility] [address] [id number] [address] [place] [address], [place] [address] 18 Dec, 2012 [facility] [address] [id number] [address] [place] [address], [place] [address] Dec, [facility] [address] [id number] [address] [place] [address], [place] [address] Dec, [facility] [address] [id number] [address] [place] [address], [place] [address] Dec, [facility] [address] [place] [id number] Nov, [facility] [address] [id number] [address] [place] [address], [place] [address] Nov, [facility] [address] [id number] [address] [place] [address], [place] [address] Nov, [facility] [address] [id number] [address] [place] [address], [place] [address] Nov, [facility] [address] [id number] [address] [place] [address], [place] [address] Nov, [facility] [address] [id number] [address] [place] [address], [place] [address] Oct, [facility] [address] [id number] [address] [place] [address], [place] [address] Oct, [facility] [address] [id number] [address] [place] [address], [place] [address] Oct, [facility] [address] [id number] [address] [place] [address], [place] [address] Oct, [facility] [address] [id number] [address] [place] [address], [place] [address] Oct, [facility] [address] [id number] [address] [place] [address], [place] [address] Oct, [facility] [address] [id number] [address] [place] [address], [place] [address] Oct, [facility] [address] [id number] [address] [place] [address], [place] [address] Oct, [facility] [address] [id number] [address] [place] [address], [place] [address] Sep, [facility] [address] [id number] [address] [place] [address], [place] [address] Sep, [facility] [address] [id number] [address] [place] [address], [place] [address] Sep, [facility] [address] [id number] [address] [place] [address], [place] [address] Sep, [facility] [address] [id number] [address] [place] [address], [place] [address] Sep, [facility] [address] [id number] [address] [place] [address], [place] [address] Sep, [facility] [address] [id number] [address] [place] [address], [place] [address] Sep, [facility] [address] [id number] [address] [place] [address], [place] [address] Sep, [facility] [address] [id number] [address] [place] [address], [place] [address] Sep, [facility] [address] [id number] [address] [place] [address], [place] [address] Sep, [facility] [address] [id number] [address] [place] [address], [place] [address] Sep, [facility] [address] [id number] [address] [place] [address], [place] [address] Sep, [facility] [address] [id number] [address] [place] [phone] Sep, [facility] [address] [id number] [address] [place] [phone] Sep, [facility] [address] [id number] [address] [place] [address] Sep, [facility] [address] [id number] [address] [place] [id number] Sep, IMMUNIZATIONS No Known Immunizations SOCIAL HISTORY [...]
--- OUTSIDE RECORDS SUMMARY | 2020-04-17 21:20 | XMS REPORT ---
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 Active 36859129 Problem Other chronic pain G89.29 Active 8 6369662 Problem Hypertension, essential I10 Active 08755245 Problem Vitamin D deficiency E55.9 Active 24891015 Problem Mood disorder F39 Active 635498 05 Problem Type 1 diabetes mellitus with hyperglycemia E10.65 Active [id number] Problem Type 1 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 Active 29733162 Problem Chronic fatigue R53.82 Active 8422 9001 Problem Controlled diabetes mellitus type 1 without complications E10.9 Active 57940117 ALLERGIES No Information ENCOUNTERS Encounter Location Date Diagnosis [place] [address] [id number] [place] [address] 30 Jan, 2020 Type 1 diabetes mellitus wit h other diabetic neurological complication E10.49 [place] [address] [address] [place] [id number] [address] [place] [address] Jan, Type 1 diabetes mellitus wit h other diabetic neurological complication E10.49 [place] [id number] [address] [place] [address] 03 Dec, 2019 Type 1 diabetes mellitus wit h other diabetic neurological complication E10.49 [place] [address] [address] [place] [id number] [address] [place] [address] Nov, Type 1 diabetes mellitus wit h diabetic polyneuropathy E10.42 ; Mood disorder F39 ; Vitamin D deficiency E55.9 and Renal insufficiency N28.9 [place] [address] [address] [place] [id number] [address] [place] [address] Nov, Type 1 diabetes mellitus wit h other diabetic neurological complication E10.49 [facility] [address] [facility] [id number] [address] [place] [address] Oct, Other chronic pain G89.29 [facility] [address] [facility] [id number] [address] [place] [address] Oct, Type 1 diabetes mellitus wit h other diabetic neurological complication E10.49 [facility] [address] [facility] [id number] [address] [place] [address] Oct, [facility] [address] [facility] [id number] [address] [place] [address] Aug, Type 1 diabetes mellitus wit h other diabetic neurological complication E10.49 [facility] [address] [facility] [id number] [address] [place] [address] 14 Aug, 2019 Encounter for immunization Z 23 [facility] [address] [facility] [id number] [address] [place] [address] 08 Aug, 2019 Vitamin D deficiency E55.9 [facility] [address] [facility] [id number] [address] [place] [address] Jul, Type 1 diabetes mellitus wit h other diabetic neurological complication E10.49 [facility] [address] [facility] [id number] [address] [place] [address] Jul, Type 1 diabetes mellitus wit h hyperglycemia E10.65 [facility] [address] [facility] [id number] [address] [place] [address] Jun, Type 1 diabetes mellitus wit h other diabetic neurological complication E10.49 [facility] [address] [facility] [id number] [address] [place] [address] May, [facility] [address] [facility] [id number] [address] [place] [address] May, [facility] [address] [facility] [id number] [address] [place] [address] May, Other chronic pain G89.29 [facility] [address] [id number] [address] [place] [address] May, [facility] [address] [id number] [address] [place] [address] May, Type 1 diabetes mellitus wit h other diabetic neurological complication E10.49 [facility] [address] [id number] [address] [place] [address] Apr, [facility] [address] [id number] [address] [place] [address] Apr, Type 1 diabetes mellitus wit h other diabetic neurological complication E10.49 [facility] [address] [id number] [address] [place] [address] Apr, Encounter for Medicare annua l wellness exam Z00.00 [facility] [address] [id number] [address] [place] [address] March, Encounter for Medicare annua l wellness exam Z00.00 and Type 1 diabetes mellitus with other diabetic neurological complication E10.49 [facility] [address] [id number] [address] [place] [address] Feb, Type 1 diabetes mellitus wit h other diabetic neurological complication E10.49 [facility] [address] [id number] [address] [place] [address] Feb, Encounter for Medicare annua l wellness exam Z00.00 ; Mood disorder F39 ; Type 1 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 ; Hypertension, essential I10 and Chronic fatigue R53.82 [facility] [address] [id number] [address] [place] [address] Jan, Type 1 diabetes mellitus wit h other diabetic neurological complication E10.49 [facility] [address] [id number] [address] [place] [address] Jan, [facility] [address] [id number] [address] [place] [address] Jan, Other chronic pain G89.29 [facility] [address] [id number] [address] [place] [address] 11 Dec, 2018 [facility] [address] [id number] [address] [place] [address] 08 Dec, 2018 Type 1 diabetes mellitus wit h other diabetic neurological complication E10.49 [facility] [address] [id number] [address] [place] [address] 05 Dec, 2018 Other chronic pain G89.29 [facility] [address] [id number] [address] [place] [address] Nov, [facility] [id number] [place] [id number] Nov, Caries K02.9 [facility] [address] [id number] [address] [place] [address] 15 Nov, 2018 Type 1 diabetes mellitus wit h other diabetic neurological complication E10.49 [facility] [address] [id number] [address] [place] [address] Nov, Controlled diabetes mellitus type 1 without complications E10.9 ; Other chronic pain G89.29 and Pain in left knee M25.562 [facility] [address] [facility] [id number] [address] [place] [id number] Oct, Dental examination Z01.20 [facility] [address] [facility] [id number] [address] [place] [address] 14 Oct, 2018 Cutaneous abscess of unspeci fied foot L02.619 and Cellulitis of unspecified part of limb L03.119 [facility] [address] [id number] [address] [place] [address] Oct, [facility] [address] [facility] [id number] [address] [place] [id number] Oct, Type 1 diabetes mellitus wit h other diabetic neurological complication E10.49 [facility] [address] [id number] [address] [place] [address] [id number] Oct, Dental examination Z01.20 an d Caries K02.9 [facility] [address] [facility] [id number] [address] [place] [address] 04 Oct, 2018 Cutaneous abscess of left fo ot L02.612 and Cellulitis of left lower limb L03.116 [facility] [address] [facility] [id number] [address] [place] [address] 04 Oct, 2018 Dental examination Z01.20 an d Pain, dental K08.89 [facility] [address] [facility] [id number] [address] [place] [address] Sep, Left foot pain M79.672 and L eft anterior knee pain M25.562 [place] [address] [address] [facility] [id number] [address] [place] [address] Sep, Type 1 diabetes mellitus wit h other diabetic neurological complication E10.49 [place] [address] [address] [place] [id number] [address] [place] [address] Sep, [place] [address] [place] [address] Aug, Type 1 diabetes mellitus wit h other diabetic neurological complication E10.49 [place] [address] [place] [id number] [address] [place] [address] 10 Aug, 2018 Encounter for immunization Z 23 [facility] [address] [facility] [id number] [address] [place] [address] 05 Aug, 2018 Type 1 diabetes mellitus wit h hyperglycemia E10.65 [place] [address] [facility] [id number] [address] [place] [address] Jul, Type 1 diabetes mellitus wit h hyperglycemia E10.65 [place] [address] [facility] [id number] [address] [place] [address] Jul, [place] [address] [place] [id number] [address] [place] [address] Jul, [place] [address] [facility] [id number] [address] [place] [address] 17 Jul, 2018 Type 1 diabetes mellitus wit h other diabetic neurological complication E10.49 [facility] [address] [id number] [address] [place] [address] Jul, Type 1 diabetes mellitus wit h other diabetic neurological complication E10.49 and Mood disorder F39 [facility] [address] [id number] [address] [place] [address] Jun, [facility] [address] [id number] [address] [place] [address] Jun, Type 1 diabetes mellitus wit h other diabetic neurological complication E10.49 and Chronic fatigue R53.82 [facility] [address] [id number] [address] [place] [address] May, Type 1 diabetes mellitus wit h other diabetic neurological complication E10.49 [facility] [address] [id number] [address] [place] [address] May, [facility] [address] [facility] [id number] [address] [place] [address] May, [facility] [address] [id number] [address] [place] [address] Apr, [facility] [address] [id number] [address] [place] [address] Apr, Type 1 diabetes mellitus wit h other diabetic neurological complication E10.49 [facility] [address] [id number] [address] [place] [address] March, [facility] [address] [id number] [address] [place] [address] Feb, [facility] [address] [id number] [address] [place] [address] Feb, Type 1 diabetes mellitus wit h other diabetic neurological complication E10.49 ; Tobacco abuse Z72.0 and Tobacco abuse counseling Z71.6 [facility] [address] [id number] [address] [place] [address] Jan, Type 1 diabetes mellitus wit h hyperglycemia E10.65 [facility] [address] [facility] [id number] [address] [place] [address] Jan, [facility] [address] [facility] [id number] [address] [place] [address] Dec, Tobacco abuse Z72.0 [facility] [address] [facility] [id number] [address] [place] [address] Dec, Type 1 diabetes mellitus wit h hyperglycemia E10.65 [facility] [address] [facility] [id number] [address] [place] [address] Dec, Type 1 diabetes mellitus wit h hyperglycemia E10.65 ; Tobacco abuse Z72.0 and Tobacco abuse counseling Z71.6 [place] [address] [facility] [id number] [address] [place] [address] Nov, Type 1 diabetes mellitus wit h hyperglycemia E10.65 [place] [address] [address] Oct, Type 1 diabetes mellitus wit h hyperglycemia E10.65 [facility] [address] [facility] [id number] [address] [place] [address] Oct, Type 1 diabetes mellitus wit h hyperglycemia E10.65 [facility] [address] [place] [id number] [address] [place] [address] Sep, Type 1 diabetes mellitus wit h hyperglycemia E10.65 [place] [id number] [address] [place] [address] Aug, Type 1 diabetes mellitus wit h hyperglycemia E10.65 [facility] [address] [facility] [id number] [address] [place] [address] Aug, [facility] [address] [address] Aug, Type 1 diabetes mellitus wit h hyperglycemia E10.65 [facility] [address] [place] [id number] [address] [place] [address] Aug, Encounter for immunization Z 23 [facility] [address] [place] [address] Aug, Type 1 diabetes mellitus wit h hyperglycemia E10.65 [facility] [address] [id number] [address] [place] [address] Jul, Type 1 diabetes mellitus wit h hyperglycemia E10.65 [facility] [address] [facility] [id number] [address] [place] [address] Jul, Type 1 diabetes mellitus wit h hyperglycemia E10.65 [facility] [address] [id number] [address] [place] [address] May, Type 1 diabetes mellitus wit h hyperglycemia E10.65 [facility] [address] [id number] [address] [place] [address] May, [facility] [address] [id number] [address] [place] [address] Apr, [facility] [address] [id number] [address] [place] [address] Apr, Type 1 diabetes mellitus wit h hyperglycemia E10.65 [facility] [address] [id number] [address] [place] [address] March, [facility] [address] [facility] [id number] [address] [place] [address] March, [facility] [address] [id number] [address] [place] [address] Jan, [facility] [address] [id number] [address] [place] [address] Jan, [facility] [address] [id number] [address] [place] [address] Jan, Type 1 diabetes mellitus wit h diabetic polyneuropathy E10.42 [facility] [address] [id number] [address] [place] [address] Jan, Type 1 diabetes mellitus wit h hyperglycemia E10.65 ; Excessive cerumen in both ear canals H61.23 and Controlled diabetes mellitus type 1 without complications E10.9 [facility] [address] [id number] [address] [place] [address] 16 Dec, 2016 [facility] [address] [id number] [address] [place] [address] Dec, [facility] [address] [id number] [address] [place] [address] Dec, [facility] [address] [id number] [address] [place] [address] Dec, [facility] [address] [id number] [address] [place] [address] Nov, [facility] [address] [id number] [address] [place] [address] Nov, [facility] [address] [id number] [address] [place] [address] Oct, Type 1 diabetes mellitus wit h hyperglycemia E10.65 [facility] [address] [id number] [address] [place] [address] Sep, [facility] [address] [id number] [address] [place] [address] Sep, [facility] [address] [id number] [address] [place] [address] Sep, Controlled diabetes mellitus type 1 without complications E10.9 [facility] [address] [id number] [address] [place] [address] Sep, [facility] [address] [id number] [address] [place] [address] [id number] Aug, Dental caries K02.9 [facility] [address] [id number] [address] [place] [address] Aug, Type 1 diabetes mellitus wit h diabetic polyneuropathy E10.42 [facility] [address] [id number] [address] [place] [address] Aug, [facility] [address] [id number] [address] [place] [address] Aug, [facility] [address] [id number] [address] [place] [address] Aug, [facility] [address] [id number] [address] [place] [address] Jul, Type 1 diabetes mellitus wit h hyperglycemia E10.65 [facility] [address] [id number] [address] [place] [address] Jul, Type 1 diabetes mellitus wit h hyperglycemia E10.65 ; Tooth pain K08.8 and Encounter for immunization Z23 [facility] [address] [id number] [address] [place] [id number] Jul, 2016 Dental examination Z01.20 [facility] [address] [id number] [address] [place] [address] Jul, [facility] [address] [id number] [address] [place] [address] Jul, [facility] [address] [id number] [address] [place] [id number] Jul, [facility] [address] [id number] [address] [place] [address] Jun, [facility] [address] [id number] [address] [place] [address] May, [facility] [address] [id number] [address] [place] [address] Apr, [facility] [address] [id number] [address] [place] [address] Apr, [facility] [address] [id number] [address] [place] [address] Apr, [facility] [address] [id number] [address] [place] [address] March, [facility] [address] [id number] [address] [place] [address] March, [facility] [address] [id number] [address] [place] [address] Feb, [facility] [address] [id number] [address] [place] [address] Feb, [facility] [address] [facility] [id number] [address] [place] [address] Feb, Type 1 diabetes mellitus wit h hyperglycemia E10.65 [facility] [address] [id number] [address] [place] [address] Jan, [facility] [address] [id number] [address] [place] [address] Jan, [facility] [address] [facility] [id number] [address] [place] [address] Jan, [facility] [address] [facility] [id number] [address] [place] [address] Jan, [facility] [address] [facility] [id number] [address] [place] [address] Dec, [facility] [address] [facility] [id number] [address] [place] [address] Nov, [facility] [address] [facility] [id number] [address] [place] [address] Nov, [facility] [address] [facility] [id number] [address] [place] [address] Oct, [facility] [address] [facility] [id number] [address] [place] [id number] 04 Oct, 2015 Type 1 diabetes mellitus wit h 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 ; Type 1 diabetes mellitus with hyperglycemia E10.65 ; Gastroparesis K31.84 and Esophageal stricture K22.2 [facility] [address] [facility] [id number] [address] [place] [address] Oct, [facility] [address] [facility] [id number] [address] [place] [address] Sep, [facility] [address] [id number] [address] [place] [address] Sep, Type 1 diabetes mellitus wit h other diabetic neurological complication E10.49 [facility] [address] [id number] [address] [place] [address] Aug, Encounter for immunization Z 23 [facility] [address] [id number] [address] [place] [id number] 19 Aug, 2015 [facility] [address] [id number] [address] [place] [address] Aug, [facility] [address] [id number] [address] [place] [address] Jul, [facility] [address] [id number] [address] [place] [address] Jul, [facility] [address] [id number] [address] [place] [id number] Jun, [facility] [address] [id number] [address] [place] [phone] Jun, [facility] [address] [id number] [address] [place] [phone] Jun, [facility] [address] [facility] [id number] [address] [place] [phone] May, [facility] [address] [id number] [address] [place] [id number] May, [facility] [address] [id number] [address] [place] [id number] May, Diabetes type 1, controlled 250.01 [facility] [address] [id number] [address] [place] [phone] May, [facility] [address] [facility] [id number] [address] [place] [id number] May, [facility] [address] [id number] [address] [place] [id number] Apr, Dental examination V72.2 [facility] [address] [id number] [address] [place] [id number] Apr, [facility] [address] [id number] [address] [place] [phone] Apr, [facility] [address] [id number] [address] [place] [id number] Apr, [facility] [address] [id number] [address] [place] [id number] Apr, [facility] [address] [id number] [address] [place] [phone] Apr, [facility] [address] [id number] [address] [place] [id number] Apr, Dental examination V72.2 [facility] [address] [id number] [address] [place] [id number] Apr, [facility] [address] [id number] [address] [place] [phone] Apr, [facility] [address] [id number] [address] [place] [id number] March, Diabetes mellitus type 1 250 .01 [facility] [address] [id number] [address] [place] [id number] March, [facility] [address] [id number] [address] [place] [id number] Feb, [facility] [address] [id number] [address] [place] [phone] Feb, [facility] [address] [id number] [address] [place] [address] Jan, [facility] [address] [id number] [address] [place] [address] Jan, [facility] [address] [id number] [address] [place] [address] Jan, [facility] [address] [id number] [address] [place] [address], [place] [address] Jan, [facility] [address] [id number] [address] [place] [address], [place] [address] Dec, [facility] [address] [id number] [address] [place] [address], [place] [address] Dec, [facility] [address] [id number] [address] [place] [address], [place] [address] Nov, [facility] [address] [id number] [address] [place] [address], [place] [address] Nov, [facility] [address] [id number] [address] [place] [address], [place] [address] Nov, [facility] [address] [id number] [address] [place] [address], [place] [address] Nov, [facility] [address] [id number] [address] [place] [address], [place] [address] Nov, [facility] [address] [id number] [address] [place] [address], [place] [address] Nov, [facility] [address] [id number] [address] [place] [address], [place] [address] Nov, [facility] [address] [id number] [address] [place] [address] Oct, [facility] [address] [id number] [address] [place] [address] Oct, [facility] [address] [id number] [address] [place] [address], [place] [address] Sep, [facility] [address] [id number] [address] [place] [address], [place] [address] Aug, [facility] [address] [id number] [address] [place] [address], [place] [address] Aug, [facility] [address] [id number] [address] [place] [address], [place] [address] Aug, [facility] [address] [id number] [address] [place] [address], [place] [address] Aug, [facility] [address] [id number] [address] [place] [address], [place] [address] Aug, [facility] [address] [id number] [address] [place] [address], [place] [address] Aug, [facility] [address] [id number] [address] [place] [address], [place] [address] Aug, [facility] [address] [id number] [address] [place] [address], [place] [address] Aug, [facility] [address] [id number] [address] [place] [address], [place] [address] Aug, [facility] [address] [id number] [address] [place] [address], [place] [address] Aug, [facility] [address] [id number] [address] [place] [address], [place] [address] Aug, [facility] [address] [id number] [address] [place] [address], [place] [address] Aug, [facility] [address] [id number] [address] [place] [address], [place] [address] Aug, [facility] [address] [id number] [address] [place] [address], [place] [address] Aug, [facility] [address] [id number] [address] [place] [address], [place] [address] Jul, 2013 [facility] [address] [id number] [address] [place] [address], [place] [address] Jul, 2013 [facility] [address] [id number] [address] [place] [address], [place] [address] Jul, 2013 [facility] [address] [id number] [address] [place] [address], [place] [address] Jul, [facility] [address] [id number] [address] [place] [address], [place] [address] Jun, [facility] [address] [id number] [address] [place] [address], [place] [address] Jun, [facility] [address] [id number] [address] [place] [address], [place] [address] Jun, [facility] [address] [id number] [address] [place] [address], [place] [address] Jun, [facility] [address] [id number] [address] [place] [address], [place] [address] May, [facility] [address] [id number] [address] [place] [address], [place] [address] May, [facility] [address] [id number] [address] [place] [address], [place] [address] May, [facility] [address] [id number] [address] [place] [address], [place] [address] May, [facility] [address] [id number] [address] [place] [address], [place] [address] May, [facility] [address] [id number] [address] [place] [address], [place] [address] May, [facility] [address] [id number] [address] [place] [address], [place] [address] May, [facility] [address] [id number] [address] [place] [address], [place] [address] May, [facility] [address] [id number] [address] [place] [address], [place] [address] May, [facility] [address] [id number] [address] [place] [address], [place] [address] May, [facility] [address] [id number] [address] [place] [address], [place] [address] May, [facility] [address] [id number] [address] [place] [address], [place] [address] May, [facility] [address] [id number] [facility] [place] [address] May, [facility] [address] [id number] [address] [place] [address], [place] [address] Apr, [facility] [address] [id number] [address] [place] [address], [place] [address] Apr, [facility] [address] [id number] [address] [place] [address], [place] [address] Apr, [facility] [address] [id number] [address] [place] [address], [place] [address] Apr, [facility] [place] [address] [id number] [address] [place] [address], [place] [address] Apr, [facility] [place] [address] [id number] [address] [place] [address], [place] [address] Apr, [facility] [address] [id number] [address] [place] [address], [place] [address] Apr, [facility] [address] [id number] [address] [place] [address], [place] [address] Apr, [facility] [address] [id number] [address] [place] [address], [place] [address] Apr, [facility] [address] [id number] [address] [place] [address], [place] [address] Apr, [facility] [address] [id number] [address] [place] [address], [place] [address] Apr, [facility] [address] [id number] [address] [place] [address], [place] [address] Apr, [facility] [address] [id number] [address] [place] [address], [place] [address] Apr, [facility] [address] [id number] [address] [place] [address], [place] [address] Apr, [facility] [address] [id number] [facility] [place] [address] March, [facility] [address] [id number] [address] [place] [address], [place] [address] March, [facility] [address] [id number] [facility] [place] [address] March, [facility] [address] [id number] [address] [place] [address], [place] [address] March, [facility] [address] [id number] [address] [place] [address], [place] [address] March, [facility] [address] [id number] [address] [place] [address], [place] [address] March, [facility] [address] [id number] [address] [place] [address], [place] [address] March, [facility] [address] [id number] [address] [place] [address], [place] [address] March, [facility] [address] [id number] [address] [place] [address], [place] [address] March, [facility] [address] [id number] [address] [place] [address], [place] [address] March, [facility] [address] [id number] [address] [place] [address], [place] [address] Feb, [facility] [address] [id number] [address] [place] [address], [place] [address] Feb, [facility] [address] [id number] [address] [place] [address], [place] [address] Feb, [facility] [place] [address] [id number] [address] [place] [address], [place] [address] Feb, [facility] [address] [id number] [address] [place] [address], [place] [address] Feb, [facility] [address] [id number] [address] [place] [address], [place] [address] Feb, [facility] [address] [id number] [facility] [place] [address] Feb, [facility] [address] [id number] [facility] [place] [address] Feb, [facility] [address] [id number] [facility] [place] [address] 18 Jan, 2014 [facility] [address] [id number] [address] [place] [address], [place] [address] Jan, [facility] [address] [id number] [facility] [place] [address] Jan, [facility] [address] [id number] [address] [place] [address], [place] [address] Jan, [facility] [address] [id number] [address] [place] [address], [place] [address] Jan, [facility] [address] [id number] [address] [place] [address], [place] [address] Jan, [facility] [address] [id number] [address] [place] [address], [place] [address] Jan, [facility] [address] [id number] [address] [place] [address], [place] [address] Jan, [facility] [address] [id number] [address] [place] [address], [place] [address] Jan, [facility] [address] [id number] [address] [place] [address], [place] [address] Jan, [facility] [address] [id number] [address] [place] [address], [place] [address] Dec, [facility] [address] [id number] [address] [place] [address], [place] [address] Dec, [facility] [place] [facility] [address] [id number] [facility] [place] [address] Nov, [facility] [place] [facility] [address] [id number] [address] [address] Nov, [facility] [address] [id number] [address] [place] [address], [place] [address] Nov, [facility] [address] [id number] [address] [place] [address], [place] [address] Nov, [facility] [address] [id number] [address] [place] [address], [place] [address] Nov, [facility] [address] [id number] [address] [place] [address], [place] [address] Nov, [facility] [address] [id number] [address] [place] [address], [place] [address] Nov, [facility] [address] [id number] [address] [place] [address], [place] [address] Nov, [facility] [address] [id number] [address] [place] [address], [place] [address] Oct, [facility] [address] [id number] [address] [place] [address], [place] [address] Oct, [facility] [address] [id number] [address] [place] [address], [place] [address] Oct, [facility] [address] [id number] [address] [place] [address], [place] [address] Oct, [facility] [address] [id number] [address] [place] [address], [place] [address] Oct, [facility] [address] [id number] [address] [place] [address], [place] [address] Oct, [facility] [address] [id number] [address] [place] [address], [place] [address] Sep, [facility] [address] [id number] [address] [place] [address], [place] [address] Sep, [facility] [address] [id number] [address] [place] [address], [place] [address] Sep, [facility] [address] [id number] [address] [place] [address], [place] [address] Sep, [facility] [address] [id number] [address] [place] [address], [place] [address] Sep, [facility] [address] [id number] [address] [place] [address], [place] [address] Aug, [facility] [address] [id number] [address] [place] [address], [place] [address] Aug, [facility] [address] [id number] [address] [place] [address], [place] [address] Aug, [facility] [address] [id number] [address] [place] [address], [place] [address] Aug, [facility] [address] [id number] [address] [place] [address], [place] [address] Aug, [facility] [address] [id number] [address] [place] [address], [place] [address] Aug, [facility] [address] [id number] [address] [place] [address], [place] [address] Jul, [facility] [address] [id number] [address] [place] [address], [place] [address] Jul, [facility] [address] [id number] [address] [place] [address], [place] [address] Jul, [facility] [address] [id number] [address] [place] [address], [place] [address] Jun, [facility] [address] [id number] [address] [place] [address], [place] [address] Jun, [facility] [address] [id number] [address] [place] [address], [place] [address] May, [facility] [address] [id number] [address] [place] [address], [place] [address] May, [facility] [address] [id number] [address] [place] [address], [place] [address] Apr, [facility] [address] [id number] [address] [place] [address], [place] [address] Apr, [facility] [address] [id number] [address] [place] [address], [place] [address] Apr, [facility] [address] [id number] [address] [place] [address], [place] [address] March, [facility] [address] [id number] [address] [place] [address], [place] [address] Feb, [facility] [address] [id number] [address] [place] [address], [place] [address] Feb, [facility] [address] [id number] [address] [place] [address], [place] [address] Jan, [facility] [address] [id number] [address] [place] [address], [place] [address] Jan, [facility] [address] [id number] [address] [place] [address], [place] [address] Jan, [facility] [address] [id number] [address] [place] [address], [place] [address] 08 Jan, 2013 [facility] [address] [id number] [address] [place] [address], [place] [address] Jan, [facility] [address] [id number] [address] [place] [address], [place] [address] Dec, [facility] [address] [id number] [address] [place] [address], [place] [address] Dec, [facility] [address] [id number] [address] [place] [address], [place] [address] 18 Dec, 2012 [facility] [address] [id number] [address] [place] [address], [place] [address] Dec, [facility] [address] [id number] [address] [place] [address], [place] [address] 05 Dec, 2012 [facility] [address] [id number] [address] [place] [address], [place] [address] Dec, [facility] [address] [place] [id number] Nov, [facility] [address] [id number] [address] [place] [address], [place] [address] Nov, [facility] [address] [id number] [address] [place] [address], [place] [address] Nov, [facility] [address] [id number] [address] [place] [address], [place] [address] Nov, [facility] [address] [id number] [address] [place] [address], [place] [address] Nov, [facility] [address] [id number] [address] [place] [address], [place] [address] Oct, [facility] [address] [id number] [address] [place] [address], [place] [address] Oct, [facility] [address] [id number] [address] [place] [address], [place] [address] Oct, [facility] [address] [id number] [address] [place] [address], [place] [address] Oct, [facility] [address] [id number] [address] [place] [address], [place] [address] Oct, [facility] [address] [id number] [address] [place] [address], [place] [address] Oct, [facility] [address] [id number] [address] [place] [address], [place] [address] Oct, [facility] [address] [id number] [address] [place] [address], [place] [address] Oct, [facility] [address] [id number] [address] [place] [address], [place] [address] Sep, [facility] [address] [id number] [address] [place] [address], [place] [address] Sep, [facility] [address] [id number] [address] [place] [address] Sep, [facility] [address] [id number] [address] [place] [address] Sep, [facility] [address] [id number] [address] [place] [address] Sep, [facility] [address] [id number] [address] [place] [address] Sep, [facility] [address] [id number] [address] [place] [address] Sep, [facility] [address] [id number] [address] [place] [address] Sep, [facility] [address] [id number] [address] [place] [address] Sep, [facility] [address] [id number] [address] [place] [address] Sep, [facility] [address] [id number] [address] [place] [address] Sep, [facility] [address] [id number] [address] [place] [address] Sep, [facility] [address] [id number] [address] [place] [address] Sep, [facility] [address] [id number] [address] [place] [address] Sep, [facility] [address] [id number] [address] [place] [address] Sep, [facility] [address] [id number] [address] [place] [address] Sep, IMMUNIZATIONS No Known Immunizations SOCIAL HISTORY [...]
--- OUTSIDE RECORDS SUMMARY | 2020-04-17 21:20 | XMS REPORT ---
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 Active 81910434 Problem Other chronic pain G89.29 Active 8 6524842 Problem Hypertension, essential I10 Active 32865034 Problem Vitamin D deficiency E55.9 Active 52714651 Problem Mood disorder F39 Active 246472 05 Problem Type 1 diabetes mellitus with hyperglycemia E10.65 Active [id number] Problem Type 1 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 Active 10337156 Problem Chronic fatigue R53.82 Active 8422 9001 Problem Controlled diabetes mellitus type 1 without complications E10.9 Active 73831808 ALLERGIES No Information ENCOUNTERS Encounter Location Date Diagnosis [place] [address] [address] Jan, Type 1 diabetes mellitus with other diab etic neurological complication E10.49 [place] [address] [address] Dec, Type 1 diabetes mellitus with other diab etic neurological complication E10.49 [place] [address] [address] Nov, Type 1 diabetes mellitus with diabetic p olyneuropathy E10.42 ; Mood disorder F39 ; Vitamin D deficiency E55.9 and Renal insufficiency N28.9 [place] [address] [address] Nov, Type 1 diabetes mellitus with other diab etic neurological complication E10.49 [facility] [place] [address] [place] [id number] [place] [address] 12 Oct, 2019 Other chronic pain G89.29 [facility] [place] [address] [id number] [place] [address] Oct, Type 1 diabetes mellitus with other diab etic neurological complication E10.49 [facility] [place] [address] [place] [address] [id number] [place] [address] Oct, [facility] [place] [address] [address] Aug, Type 1 diabetes mellitus with other diab etic neurological complication E10.49 [facility] [place] [address] [address] 14 Aug, 2019 Encounter for immunization Z23 [facility] [place] [address] [address] 08 Aug, 2019 Vitamin D deficiency E55.9 [facility] [place] [address] [place] [id number] [place] [address] Jul, Type 1 diabetes mellitus with other diab etic neurological complication E10.49 [facility] [place] [address] [place] [address] [id number] [place] [address] Jul, Type 1 diabetes mellitus with hyperglyce uma E10.65 [facility] [place] [address] [address] [id number] [place] [address] Jun, Type 1 diabetes mellitus with other diab etic neurological complication E10.49 [facility] [place] [id number] [place] [address] May, [facility] [place] [address] [address] May, [facility] [place] [address] [address] May, Other chronic pain G89.29 [facility] [place] [address] [id number] [place] [address] May, [facility] [place] [address] [place] [id number] [place] [address] May, Type 1 diabetes mellitus with other diab etic neurological complication E10.49 [place] [address] [address] [id number] [place] [address] Apr, [place] [address] [facility] [place] [address] Apr, Type 1 diabetes mellitus with other diab etic neurological complication E10.49 [place] [address] [place] [id number] [place] [address] Apr, Encounter for Medicare annual wellness e xam Z00.00 [place] [address] [address] March, Encounter for Medicare annual wellness e xam Z00.00 and Type 1 diabetes mellitus with other diabetic neurological complication E10.49 [place] [address] [place] [id number] [place] [address] Feb, Type 1 diabetes mellitus with other diab etic neurological complication E10.49 [place] [address] [place] [id number] [place] [address] Feb, Encounter for Medicare annual wellness e xam Z00.00 ; Mood disorder F39 ; Type 1 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 ; Hypertension, essential I10 and Chronic fatigue R53.82 [place] [address] [place] [id number] [place] [address] Jan, Type 1 diabetes mellitus with other diab etic neurological complication E10.49 [place] [address] [place] [id number] [place] [address] Jan, [place] [address] [place] [id number] [place] [address] Jan, Other chronic pain G89.29 [place] [address] [place] [id number] [place] [address] Dec, [place] [address] [place] [id number] [place] [address] Dec, Type 1 diabetes mellitus with other diab etic neurological complication E10.49 [facility] [place] [address] [address] Dec, Other chronic pain G89.29 [place] [address] [place] [id number] Nov, [facility] [address] [id number] Nov, Caries K02.9 [place] [address] [address] Nov, Type 1 diabetes mellitus with other diab etic neurological complication E10.49 [place] [address] [address] Nov, Controlled diabetes mellitus type 1 with out complications E10.9 ; Other chronic pain G89.29 and Pain in left knee M25.562 [facility] [address] [id number] Oct, Dental examination Z01.20 [place] [address] [address] 14 Oct, 2018 Cutaneous abscess of unspecified foot L0 2.619 and Cellulitis of unspecified part of limb L03.119 [place] [address] [address] Oct, [place] [address] [address] Oct, Type 1 diabetes mellitus with other diab etic neurological complication E10.49 [facility] [address] [id number] Oct, Dental examination Z01.20 and Caries K02 .9 [place] [address] [address] 04 Oct, 2018 Cutaneous abscess of left foot L02.612 a nd Cellulitis of left lower limb L03.116 [place] [address] [address] 04 Oct, 2018 Dental examination Z01.20 and Pain, dent al K08.89 [facility] [address] [facility] [id number] [place] [address] Sep, Left foot pain M79.672 and L eft anterior knee pain M25.562 [facility] [place] [address] [address] Sep, Type 1 diabetes mellitus with other diab etic neurological complication E10.49 [facility] [place] [address] [address] Sep, [place] [address] [address] Aug, Type 1 diabetes mellitus with other diab etic neurological complication E10.49 [place] [address] [address] 10 Aug, 2018 Encounter for immunization Z23 [place] [address] [address] 05 Aug, 2018 Type 1 diabetes mellitus with hyperglyce uma E10.65 [place] [address] [address] Jul, Type 1 diabetes mellitus with hyperglyce uma E10.65 [facility] [place] [address] [address] 19 Jul, 2018 [place] [address] [address] 18 Jul, 2018 [facility] [place] [address] [address] Jul, Type 1 diabetes mellitus with other diab etic neurological complication E10.49 [place] [address] [address] Jul, Type 1 diabetes mellitus with other diab etic neurological complication E10.49 and Mood disorder F39 [facility] [place] [address] [address] Jun, [facility] [place] [address] [address] Jun, Type 1 diabetes mellitus with other diab etic neurological complication E10.49 and Chronic fatigue R53.82 [facility] [place] [address] [place] [id number] [place] [address] May, Type 1 diabetes mellitus with other diab etic neurological complication E10.49 [facility] [place] [address] [place] [id number] [place] [address] May, [facility] [place] [address] [address] May, [facility] [place] [address] [address] Apr, [facility] [place] [address] [address] Apr, Type 1 diabetes mellitus with other diab etic neurological complication E10.49 [place] [address] [address] March, [facility] [place] [address] [address] Feb, [facility] [place] [address] [address] Feb, Type 1 diabetes mellitus with other diab etic neurological complication E10.49 ; Tobacco abuse Z72.0 and Tobacco abuse counseling Z71.6 [place] [address] [place] [address] [place] [address] Jan, Type 1 diabetes mellitus with hyperglyce uma E10.65 [facility] [place] [address] [place] [id number] [place] [address] Jan, [facility] [place] [address] [address] Dec, Tobacco abuse Z72.0 [place] [address] [address] Dec, Type 1 diabetes mellitus with hyperglyce uma E10.65 [place] [address] [address] Dec, Type 1 diabetes mellitus with hyperglyce uma E10.65 ; Tobacco abuse Z72.0 and Tobacco abuse counseling Z71.6 [place] [address] [address] Nov, Type 1 diabetes mellitus with hyperglyce uma E10.65 [place] [address] [address] Oct, Type 1 diabetes mellitus with hyperglyce uma E10.65 [place] [address] [address] Oct, Type 1 diabetes mellitus with hyperglyce uma E10.65 [place] [address] [address] Sep, Type 1 diabetes mellitus with hyperglyce uma E10.65 [place] [address] [address] Aug, Type 1 diabetes mellitus with hyperglyce uma E10.65 [place] [address] [address] Aug, [place] [address] [address] Aug, Type 1 diabetes mellitus with hyperglyce uma E10.65 [place] [address] [address] Aug, Encounter for immunization Z23 [place] [address] [address] Aug, Type 1 diabetes mellitus with hyperglyce uma E10.65 [place] [address] [address] Jul, Type 1 diabetes mellitus with hyperglyce uma E10.65 [place] [address] [address] Jul, Type 1 diabetes mellitus with hyperglyce uma E10.65 [place] [address] [address] May, Type 1 diabetes mellitus with hyperglyce uma E10.65 [facility] [place] [address] [place] [id number] [place] [address] May, [facility] [place] [address] [address] Apr, [facility] [place] [address] [address] Apr, Type 1 diabetes mellitus with hyperglyce uma E10.65 [facility] [place] [address] [address] March, [facility] [place] [address] [address] March, [facility] [place] [address] [address] Jan, [facility] [place] [address] [address] Jan, [facility] [place] [address] [address] Jan, Type 1 diabetes mellitus with diabetic p olyneuropathy E10.42 [facility] [place] [address] [address] Jan, Type 1 diabetes mellitus with hyperglyce uma E10.65 ; Excessive cerumen in both ear canals H61.23 and Controlled diabetes mellitus type 1 without complications E10.9 [facility] [place] [address] [address] Dec, [facility] [place] [address] [address] Dec, [facility] [place] [address] [address] Dec, [facility] [place] [address] [address] Dec, [facility] [place] [address] [address] Nov, [facility] [place] [address] [address] Nov, [facility] [place] [address] [address] Oct, Type 1 diabetes mellitus with hyperglyce uma E10.65 [facility] [place] [address] [address] Sep, [facility] [place] [address] [address] Sep, [facility] [place] [address] [address] Sep, Controlled diabetes mellitus type 1 with out complications E10.9 [facility] [place] [address] [address] Sep, [facility] [address] [id number] Aug, Dental caries K02.9 [facility] [place] [address] [address] Aug, Type 1 diabetes mellitus with diabetic p olyneuropathy E10.42 [facility] [place] [address] [address] Aug, [facility] [place] [address] [address] Aug, [facility] [place] [address] [address] Aug, [facility] [place] [address] [address] Jul, Type 1 diabetes mellitus with hyperglyce uma E10.65 [facility] [place] [address] [address] Jul, Type 1 diabetes mellitus with hyperglyce uma E10.65 ; Tooth pain K08.8 and Encounter for immunization Z23 [facility] [address] [id number] Jul, 2016 Dental examination Z01.20 [facility] [address] [id number] [place] [address] 08 Jul, 2016 [facility] [address] [id number] [place] [address] 07 Jul, 2016 [facility] [address] [id number] [place] [address] Jul, [facility] [address] [id number] [place] [address] Jun, [facility] [address] [id number] [place] [address] May, [facility] [address] [id number] [place] [address] Apr, [facility] [address] [id number] [place] [address] Apr, [facility] [place] [address] [place] [id number] [place] [address] Apr, [facility] [address] [id number] [place] [address] March, [facility] [address] [id number] [place] [address] March, [facility] [place] [address] [facility] [place] [address] Feb, [facility] [place] [address] [facility] [place] [address] Feb, [facility] [address] [id number] [place] [address] Feb, Type 1 diabetes mellitus with hyperglyce uma E10.65 [facility] [address] [facility] [place] [address] Jan, [facility] [address] [id number] [place] [address] Jan, [facility] [address] [id number] [place] [address] Jan, [facility] [address] [id number] [place] [address] Jan, [facility] [place] [address] [address] Dec, [facility] [place] [address] [address] Nov, [facility] [place] [address] [address] Nov, [facility] [place] [address] [address] Oct, [facility] [place] [address] [address] Oct, Type 1 diabetes mellitus with diabetic a utonomic (poly)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 ; Type 1 diabetes mellitus with hyperglycemia E10.65 ; Gastroparesis K31.84 and Esophageal stricture K22.2 [place] [address] [address] Oct, [facility] [place] [address] [address] Sep, [facility] [place] [address] [address] Sep, Type 1 diabetes mellitus with other diab etic neurological complication E10.49 [facility] [place] [address] [address] Aug, Encounter for immunization Z23 [facility] [place] [address] [address] Aug, [facility] [place] [address] [address] Aug, [facility] [place] [address] [address] Jul, [facility] [place] [address] [address] 14 Jul, 2015 [facility] [place] [address] [address] Jun, [facility] [id number] [place] [address] Jun, 2014 [facility] [id number] [place] [address] Jun, 2014 [facility] [id number] [place] [address] May, 2014 [facility] [id number] [place] [address] May, 2014 [facility] [id number] [place] [address] May, Diabetes type 1, controlled 250.01 [facility] [id number] [place] [address] May, [facility] [address] [id number] [place] [address] May, [facility] [address] [id number] Apr, Dental examination V72.2 [facility] [address] [address] Apr, [facility] [address] [place] [id number] [place] [address] Apr, [facility] [id number] [place] [address] Apr, [facility] [id number] [place] [address] Apr, [facility] [id number] [place] [address] Apr, [facility] [address] [id number] Apr, Dental examination V72.[address] [facility] [id number] [place] [address] Apr, [facility] [id number] [place] [address] Apr, [facility] [address] [id number] [place] [address] March, Diabetes mellitus type 1 250.01 [facility] [address] [id number] [place] [address] March, [facility] [address] [id number] [place] [address] Feb, [facility] [address] [id number] [place] [address] Feb, [facility] [address] [id number] [place] [address] Jan, [facility] [address] [id number] [place] [address] Jan, [facility] [address] [id number] [place] [address] Jan, [facility] [id number] [place] [address] Jan, [facility] [address] [id number] [place] [address] Dec, [facility] [address] [id number] [place] [address] Dec, [facility] [address] [id number] [place] [address] Nov, [facility] [address] [id number] [place] [address] Nov, [facility] [address] [id number] [place] [address] Nov, [facility] [address] [id number] [place] [address] Nov, [facility] [address] [id number] [place] [address] Nov, [facility] [address] [id number] [place] [address] Nov, [facility] [address] [id number] [place] [address] Nov, [facility] [address] [facility] [id number] [place] [address] Oct, [facility] [address] [id number] [place] [address] Oct, [facility] [address] [id number] [place] [address] Sep, [facility] [address] [id number] [place] [address] Aug, [facility] [address] [id number] [place] [address] Aug, [facility] [address] [id number] [place] [address] Aug, [facility] [address] [id number] [place] [address] Aug, [facility] [address] [id number] [place] [address] Aug, [facility] [address] [id number] [place] [address] Aug, [facility] [address] [id number] [place] [address] Aug, [facility] [address] [id number] [place] [address] Aug, [facility] [address] [id number] [place] [address] Aug, [facility] [address] [id number] [place] [address] Aug, [facility] [address] [id number] [place] [address] Aug, [facility] [address] [id number] [place] [address] Aug, [facility] [address] [id number] [place] [address] Aug, [facility] [address] [id number] [place] [address] Aug, [facility] [address] [facility] [id number] [place] [address] Jul, [facility] [address] [facility] [id number] [place] [address] Jul, [facility] [address] [id number] [place] [address] Jul, [facility] [address] [facility] [id number] [place] [address] Jul, [facility] [address] [facility] [id number] [place] [address] Jun, [facility] [address] [id number] [place] [address] Jun, [facility] [address] [id number] [place] [address] Jun, [facility] [address] [id number] [place] [address] Jun, [facility] [address] [id number] [place] [address] May, [facility] [address] [id number] [place] [address] May, [facility] [address] [id number] [place] [address] May, [facility] [address] [id number] [place] [address] May, [facility] [address] [facility] [id number] [place] [address] May, [facility] [address] [id number] [place] [address] May, [facility] [address] [id number] [place] [address] May, [facility] [address] [id number] [place] [address] May, 2013 [facility] [address] [id number] [place] [address] May, 2013 [facility] [address] [facility] [id number] [place] [address] May, 2013 [facility] [address] [facility] [id number] [place] [address] May, 2013 [facility] [address] [facility] [id number] [place] [address] May, 2013 [facility] [address] [facility] [id number] [place] [address] May, 2013 [facility] [address] [facility] [id number] [place] [address] Apr, [facility] [address] [id number] [place] [address] Apr, [facility] [address] [id number] [place] [address] Apr, [facility] [address] [facility] [id number] [place] [address] Apr, [facility] [address] [id number] [place] [address] Apr, [facility] [address] [id number] [place] [address] Apr, [facility] [address] [id number] [place] [address] Apr, [facility] [address] [facility] [id number] [facility] [address] Apr, [facility] [address] [id number] [place] [address] Apr, [facility] [address] [facility] [id number] [place] [address] Apr, [facility] [address] [id number] [place] [address] Apr, [facility] [address] [facility] [id number] [place] [address] Apr, [facility] [address] [facility] [id number] [facility] [address] Apr, [facility] [address] [id number] [place] [address] Apr, [facility] [address] [id number] [place] [address] March, [facility] [address] [id number] [place] [address] March, [facility] [address] [id number] [place] [address] March, [facility] [address] [id number] [place] [address] March, [facility] [address] [id number] [place] [address] March, [facility] [address] [id number] [place] [address] March, [facility] [address] [id number] [place] [address] March, [facility] [address] [id number] [place] [address] March, [facility] [address] [id number] [place] [address] March, [facility] [address] [id number] [place] [address] March, [facility] [address] [id number] [place] [address] Feb, [facility] [address] [id number] [place] [address] Feb, [facility] [address] [id number] [place] [address] Feb, [facility] [address] [id number] [place] [address] Feb, [facility] [address] [id number] [place] [address] Feb, [facility] [address] [id number] [place] [address] Feb, [facility] [address] [id number] [place] [address] Feb, [facility] [address] [id number] [place] [address] Feb, [facility] [address] [id number] [place] [address] Jan, [facility] [address] [id number] [place] [address] Jan, [facility] [address] [id number] [place] [address] Jan, [facility] [address] [id number] [place] [address] Jan, [facility] [address] [id number] [place] [address] Jan, [facility] [address] [id number] [place] [address] Jan, [facility] [address] [id number] [place] [address] Jan, [facility] [address] [id number] [place] [address] Jan, [facility] [address] [id number] [place] [address] Jan, [facility] [address] [id number] [place] [address] Jan, [facility] [address] [id number] [place] [address] Dec, [facility] [address] [id number] [place] [address] Dec, [facility] [address] [id number] [place] [address] Nov, [facility] [address] [facility] [id number] [place] [address] Nov, [facility] [address] [id number] [place] [address] Nov, [facility] [address] [id number] [place] [address] Nov, [facility] [address] [id number] [place] [address] Nov, [facility] [address] [facility] [id number] [place] [address] Nov, [facility] [address] [id number] [place] [address] Nov, [facility] [address] [id number] [place] [address] Nov, [facility] [address] [id number] [place] [address] Oct, [facility] [address] [id number] [place] [address] Oct, [facility] [address] [id number] [place] [address] Oct, [facility] [address] [id number] [place] [address] Oct, [facility] [address] [id number] [place] [address] Oct, [facility] [address] [id number] [place] [address] Oct, [facility] [address] [id number] [place] [address] Sep, [facility] [address] [id number] [place] [address] Sep, [facility] [address] [id number] [place] [address] Sep, [facility] [address] [id number] [place] [address] Sep, [facility] [address] [id number] [place] [address] Sep, [facility] [address] [id number] [place] [address] Aug, [facility] [address] [id number] [place] [address] Aug, [facility] [address] [id number] [place] [address] Aug, [facility] [address] [id number] [place] [address] Aug, [facility] [address] [id number] [place] [address] Aug, [facility] [address] [id number] [place] [address] Aug, [facility] [address] [id number] [place] [address] Jul, [facility] [address] [id number] [place] [address] Jul, [facility] [address] [id number] [place] [address] Jul, [facility] [address] [id number] [place] [address] Jun, [facility] [address] [id number] [place] [address] Jun, [facility] [address] [id number] [place] [address] May, [facility] [id number] [place] [address] May, [facility] [address] [id number] [place] [address] Apr, [facility] [address] [id number] [place] [address] Apr, [facility] [address] [id number] [place] [address] Apr, [facility] [address] [id number] [place] [address] March, [facility] [address] [id number] [place] [address] Feb, [facility] [address] [id number] [place] [address] Feb, [facility] [address] [id number] [place] [address] Jan, [facility] [address] [id number] [place] [address] Jan, [facility] [address] [id number] [place] [address] Jan, [facility] [address] [id number] [place] [address] Jan, [facility] [address] [id number] [place] [address] Jan, [facility] [address] [id number] [place] [address] Dec[facility] [address] [id number] [place] [address] Dec, [facility] [address] [id number] [place] [address] Dec, [facility] [address] [id number] [place] [address] Dec, [facility] [address] [id number] [place] [address] Dec, [facility] [address] [id number] [place] [address] Dec, [facility] [address] [place] [id number] Nov, [facility] [address] [id number] [place] [address] Nov, [facility] [address] [id number] [place] [address] Nov, [facility] [address] [id number] [place] [address] Nov, [facility] [address] [id number] [place] [address] Nov, [facility] [address] [id number] [place] [address] Oct, [facility] [address] [id number] [place] [address] Oct, [facility] [address] [id number] [place] [address] Oct, [facility] [address] [id number] [place] [address] Oct, [facility] [address] [id number] [place] [address] Oct, [facility] [address] [id number] [place] [address] Oct, [facility] [address] [id number] [place] [address] Oct, [facility] [address] [id number] [place] [address] Oct, [facility] [address] [id number] [place] [address] Sep, [facility] [address] [id number] [place] [address] Sep, [facility] [address] [id number] [place] [address] Sep, [facility] [address] [id number] [place] [address] Sep, [facility] [address] [id number] [place] [address] Sep, [facility] [address] [id number] [place] [address] Sep, [facility] [place] [address] [id number] [place] [address] Sep, [facility] [place] [address] [id number] [place] [address] Sep, [facility] [place] [id number] [place] [address] Sep, [facility] [place] [id number] [place] [address] Sep, [facility] [place] [id number] [place] [address] Sep, [facility] [place] [id number] [place] [address] Sep, [facility] [place] [id number] [place] [address] Sep, [facility] [place] [id number] [place] [address] Sep, [facility] [place] [id number] [place] [address] Sep, [facility] [place] [id number] [place] [address] Sep, IMMUNIZATIONS No Known Immunizations SOCIAL HISTORY [...]
--- OUTSIDE RECORDS SUMMARY | 2020-04-17 21:20 | XMS REPORT ---
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 Active 55450563 Problem Other chronic pain G89.29 Active 8 7598988 Problem Hypertension, essential I10 Active 62918089 Problem Vitamin D deficiency E55.9 Active 95770532 Problem Mood disorder F39 Active 325828 05 Problem Type 1 diabetes mellitus with hyperglycemia E10.65 Active 901347257295851 Problem Type 1 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 Active 10458665 Problem Chronic fatigue R53.82 Active 8422 9001 Problem Controlled diabetes mellitus type 1 without complications E10.9 Active 20601459 ALLERGIES No Information ENCOUNTERS Encounter Location Date Diagnosis [place] [address] [address] 03 Jan, 2020 Type 1 diabetes mellitus with other diab etic neurological complication E10.49 [place] [address] [address] 03 Dec, 2019 Type 1 diabetes mellitus with other diab etic neurological complication E10.49 [place] [address] [address] 13 Nov, 2019 Type 1 diabetes mellitus with diabetic p olyneuropathy E10.42 ; Mood disorder F39 ; Vitamin D deficiency E55.9 and Renal insufficiency N28.9 [place] [address] [address] Nov, Type 1 diabetes mellitus with other diab etic neurological complication E10.49 [place] [address] [address] Oct, Other chronic pain G89.29 [facility] [address] [address] Oct, Type 1 diabetes mellitus with other diab etic neurological complication E10.49 [facility] [address] [place] [id number] [place] [address] Oct, [facility] [address] [address] Aug, Type 1 diabetes mellitus with other diab etic neurological complication E10.49 [facility] [address] [address] 14 Aug, 2019 Encounter for immunization Z23 [facility] [address] [address] Aug, Vitamin D deficiency E55.9 [facility] [address] [address] Jul, Type 1 diabetes mellitus with other diab etic neurological complication E10.49 [facility] [address] [address] Jul, Type 1 diabetes mellitus with hyperglyce uma E10.65 [facility] [address] [address] Jun, Type 1 diabetes mellitus with other diab etic neurological complication E10.49 [facility] [id number] [place] [address] May, [facility] [address] [address] May, [facility] [address] [address] May, Other chronic pain G89.29 [facility] [id number] [place] [address] May, [facility] [address] [address] May, Type 1 diabetes mellitus with other diab etic neurological complication E10.49 [place] [address] [place] [id number] [place] [address] Apr, [place] [address] [place] [id number] [place] [address] Apr, Type 1 diabetes mellitus with other diab etic neurological complication E10.49 [place] [address] [place] [id number] [place] [address] Apr, Encounter for Medicare annual wellness e xam Z00.00 [place] [address] [place] [address] [id number] [place] [address] March, Encounter for Medicare annual wellness e xam Z00.00 and Type 1 diabetes mellitus with other diabetic neurological complication E10.49 [place] [address] [place] [id number] [place] [address] Feb, Type 1 diabetes mellitus with other diab etic neurological complication E10.49 [place] [address] [place] [address] [id number] [place] [address] Feb, Encounter for Medicare annual wellness e xam Z00.00 ; Mood disorder F39 ; Type 1 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 ; Hypertension, essential I10 and Chronic fatigue R53.82 [place] [address] [place] [address] [id number] [place] [address] Jan, Type 1 diabetes mellitus with other diab etic neurological complication E10.49 [place] [address] [place] [address] [id number] [place] [address] Jan, [place] [address] [place] [id number] [place] [address] Jan, Other chronic pain G89.29 [place] [address] [place] [address] [id number] [place] [address] Dec, [place] [address] [place] [id number] [place] [address] Dec, Type 1 diabetes mellitus with other diab etic neurological complication E10.49 [place] [address] [address] Dec, Other chronic pain G89.29 [facility] [address] [address] Nov, [facility] [address] [id number] Nov, Caries K02.9 [place] [address] [address] Nov, Type 1 diabetes mellitus with other diab etic neurological complication E10.49 [place] [address] [address] Nov, Controlled diabetes mellitus type 1 with out complications E10.9 ; Other chronic pain G89.29 and Pain in left knee M25.562 [facility] [address] [id number] Oct, Dental examination Z01.20 [place] [address] [address] 14 Oct, 2018 Cutaneous abscess of unspecified foot L0 2.619 and Cellulitis of unspecified part of limb L03.119 [place] [address] [address] Oct, [place] [address] [address] 10 Oct, 2018 Type 1 diabetes mellitus with other diab etic neurological complication E10.49 [facility] [address] [id number] Oct, Dental examination Z01.20 and Caries K02 .9 [place] [address] [address] 04 Oct, 2018 Cutaneous abscess of left foot L02.612 a nd Cellulitis of left lower limb L03.116 [place] [address] [address] 04 Oct, 2018 Dental examination Z01.20 and Pain, dent al K08.89 [facility] [address] [facility] [id number] [address] [place] [address] Sep, Left foot pain M79.672 and L eft anterior knee pain M25.562 [facility] [address] [address] Sep, Type 1 diabetes mellitus with other diab etic neurological complication E10.49 [facility] [address] [place] [id number] [place] [address] Sep, [facility] [address] [address] Aug, Type 1 diabetes mellitus with other diab etic neurological complication E10.49 [place] [address] [address] 10 Aug, 2018 Encounter for immunization Z23 [facility] [address] [address] 05 Aug, 2018 Type 1 diabetes mellitus with hyperglyce uma E10.65 [facility] [address] [address] 21 Jul, 2018 Type 1 diabetes mellitus with hyperglyce uma E10.65 [facility] [address] [address] 19 Jul, 2018 [facility] [address] [address] 18 Jul, 2018 [facility] [address] [address] 17 Jul, 2018 Type 1 diabetes mellitus with other diab etic neurological complication E10.49 [facility] [address] [address] Jul, Type 1 diabetes mellitus with other diab etic neurological complication E10.49 and Mood disorder F39 [facility] [address] [address] Jun, [facility] [address] [address] Jun, Type 1 diabetes mellitus with other diab etic neurological complication E10.49 and Chronic fatigue R53.82 [facility] [address] [place] [address] [id number] [place] [address] May, Type 1 diabetes mellitus with other diab etic neurological complication E10.49 [facility] [address] [place] [address] [id number] [place] [address] May, [facility] [address] [place] [address] [id number] [place] [address] May, [facility] [id number] [place] [address] Apr, [facility] [address] [address] Apr, Type 1 diabetes mellitus with other diab etic neurological complication E10.49 [facility] [address] [place] [id number] [place] [address] March, [facility] [address] [address] Feb, [facility] [address] [place] [address] [id number] [place] [address] Feb, Type 1 diabetes mellitus with other diab etic neurological complication E10.49 ; Tobacco abuse Z72.0 and Tobacco abuse counseling Z71.6 [place] [address] [place] [id number] [place] [address] Jan, Type 1 diabetes mellitus with hyperglyce uma E10.65 [facility] [address] [address] [id number] [place] [address] Jan, [facility] [address] [place] [id number] [place] [address] Dec, Tobacco abuse Z72.0 [place] [address] [address] Dec, Type 1 diabetes mellitus with hyperglyce uma E10.65 [facility] [address] [address] Dec, Type 1 diabetes mellitus with hyperglyce uma E10.65 ; Tobacco abuse Z72.0 and Tobacco abuse counseling Z71.6 [facility] [address] [place] [id number] [place] [address] Nov, Type 1 diabetes mellitus with hyperglyce uma E10.65 [facility] [address] [place] [id number] [place] [address] Oct, Type 1 diabetes mellitus with hyperglyce uma E10.65 [facility] [address] [address] Oct, Type 1 diabetes mellitus with hyperglyce uma E10.65 [facility] [address] [address] Sep, Type 1 diabetes mellitus with hyperglyce uma E10.65 [place] [address] [address] Aug, Type 1 diabetes mellitus with hyperglyce uma E10.65 [place] [address] [address] Aug, [facility] [address] [address] Aug, Type 1 diabetes mellitus with hyperglyce uma E10.65 [place] [address] [address] Aug, Encounter for immunization Z23 [place] [address] [address] Aug, Type 1 diabetes mellitus with hyperglyce uma E10.65 [facility] [address] [id number] [place] [address] Jul, Type 1 diabetes mellitus with hyperglyce uma E10.65 [place] [address] [address] Jul, Type 1 diabetes mellitus with hyperglyce uma E10.65 [facility] [address] [address] May, Type 1 diabetes mellitus with hyperglyce uma E10.65 [place] [address] [place] [address] May, [facility] [address] [address] Apr, [facility] [address] [address] Apr, Type 1 diabetes mellitus with hyperglyce uma E10.65 [facility] [address] [address] March, [facility] [address] [address] March, [facility] [address] [address] Jan, [facility] [address] [address] Jan, [facility] [address] [address] Jan, Type 1 diabetes mellitus with diabetic p olyneuropathy E10.42 [facility] [address] [address] Jan, Type 1 diabetes mellitus with hyperglyce uma E10.65 ; Excessive cerumen in both ear canals H61.23 and Controlled diabetes mellitus type 1 without complications E10.9 [facility] [address] [address] Dec, [facility] [address] [address] Dec, [facility] [address] [address] Dec, [facility] [address] [address] Dec, [facility] [address] [address] Nov, [facility] [address] [address] Nov, [facility] [address] [address] Oct, Type 1 diabetes mellitus with hyperglyce uma E10.65 [facility] [address] [address] Sep, [facility] [address] [address] Sep, [facility] [address] [address] Sep, Controlled diabetes mellitus type 1 with out complications E10.9 [facility] [address] [address] Sep, [facility] [address] [id number] Aug, Dental caries K02.9 [facility] [address] [address] Aug, Type 1 diabetes mellitus with diabetic p olyneuropathy E10.42 [facility] [address] [address] Aug, [facility] [address] [address] Aug, [facility] [address] [address] Aug, [facility] [address] [address] Jul, Type 1 diabetes mellitus with hyperglyce uma E10.65 [facility] [address] [address] Jul, Type 1 diabetes mellitus with hyperglyce uma E10.65 ; Tooth pain K08.8 and Encounter for immunization Z23 [facility] [address] [id number] 08 Jul, 2016 Dental examination Z01.20 [facility] [address] [address] 08 Jul, 2016 [facility] [address] [id number] [place] [address] Jul, [facility] [address] [id number] [place] [address] Jul, [facility] [address] [id number] [place] [address] Jun, [facility] [address] [id number] [place] [address] May, [facility] [address] [id number] [place] [address] Apr, [facility] [address] [id number] [place] [address] Apr, [facility] [address] [id number] [place] [address] Apr, [facility] [address] [place] [id number] [place] [address] March, [facility] [address] [id number] [place] [address] March, [facility] [address] [id number] [place] [address] Feb, [facility] [address] [id number] [place] [address] Feb, [facility] [id number] [place] [address] Feb, Type 1 diabetes mellitus with hyperglyce uma E10.65 [facility] [address] [id number] [place] [address] Jan, [facility] [address] [place] [id number] [place] [address] Jan, [facility] [address] [id number] [place] [address] Jan, [facility] [address] [id number] [place] [address] Jan, [facility] [id number] [place] [address] Dec, [facility] [address] [address] Nov, [facility] [address] [address] Nov, [facility] [address] [address] Oct, [facility] [address] [address] Oct, Type 1 diabetes mellitus with diabetic a utonomic (poly)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 ; Type 1 diabetes mellitus with hyperglycemia E10.65 ; Gastroparesis K31.84 and Esophageal stricture K22.2 [facility] [address] [address] Oct, [facility] [address] [address] Sep, [facility] [address] [address] Sep, Type 1 diabetes mellitus with other diab etic neurological complication E10.49 [place] [address] [address] Aug, Encounter for immunization Z23 [facility] [address] [address] Aug, [facility] [address] [address] Aug, [facility] [address] [address] Jul, [facility] [address] [address] Jul, [facility] [address] [address] Jun, [facility] [address] [address] Jun, [facility] [address] [address] [id number] [place] [address] Jun, [facility] [address] [id number] [place] [address] May, [facility] [address] [id number] [place] [address] May, [facility] [address] [place] [id number] [place] [address] May, Diabetes type 1, controlled 250.01 [facility] [id number] [place] [address] May, [facility] [address] [place] [address] [id number] [place] [address] May, [facility] [address] [id number] Apr, Dental examination V72.2 [facility] [id number] [place] [address] Apr, [facility] [id number] [place] [address] Apr, [facility] [address] [place] [id number] [place] [address] Apr, [facility] [id number] [place] [address] Apr, [facility] [id number] [place] [address] Apr, [facility] [address] [id number] [place] [id number] Apr, Dental examination V72.2 [facility] [id number] [place] [address] Apr, [facility] [id number] [place] [address] Apr, [facility] [address] [place] [id number] [place] [address] March, Diabetes mellitus type 1 250.01 [facility] [address] [id number] [place] [address] March, [facility] [address] [id number] [place] [address] Feb, [facility] [address] [id number] [place] [address] Feb, [facility] [address] [id number] [place] [address] Jan, [facility] [address] [id number] [place] [address] Jan, [facility] [address] [id number] [place] [address] Jan, [facility] [address] [id number] [place] [address] Jan, [facility] [address] [id number] [place] [address] Dec, [facility] [address] [id number] [place] [address] Dec, [facility] [address] [id number] [place] [address] Nov, [facility] [address] [id number] [place] [address] Nov, [facility] [address] [id number] [place] [address] Nov, [facility] [address] [id number] [place] [address] Nov, [facility] [address] [id number] [place] [address] Nov, [facility] [address] [id number] [place] [address] Nov, [facility] [address] [id number] [place] [address] Nov, [facility] [address] [id number] [place] [address] Oct, [facility] [address] [facility] [id number] [place] [address] Oct, [facility] [address] [id number] [place] [address] Sep, [facility] [address] [id number] [place] [address] Aug, [facility] [address] [id number] [place] [address] Aug, [facility] [address] [id number] [place] [address] Aug, [facility] [address] [id number] [place] [address] Aug, [facility] [address] [id number] [place] [address] Aug, [facility] [address] [id number] [place] [address] Aug, [facility] [address] [id number] [place] [address] Aug, [facility] [address] [id number] [place] [address] Aug, [facility] [address] [id number] [place] [address] Aug, [facility] [address] [id number] [place] [address] Aug, [facility] [address] [id number] [place] [address] Aug, [facility] [address] [id number] [place] [address] Aug, [facility] [address] [id number] [place] [address] Aug, 2013 [facility] [address] [id number] [place] [address] Aug, [facility] [address] [id number] [place] [address] Jul, [facility] [address] [facility] [id number] [place] [address] Jul, [facility] [address] [facility] [id number] [place] [address] Jul, [facility] [address] [facility] [id number] [place] [address] Jul, [facility] [address] [facility] [id number] [facility] [place] [address] Jun, [facility] [address] [facility] [id number] [place] [address] Jun, [facility] [address] [id number] [place] [address] Jun, [facility] [address] [id number] [place] [address] Jun, [facility] [address] [id number] [place] [address] May, [facility] [address] [id number] [place] [address] May, [facility] [address] [id number] [place] [address] May, [facility] [address] [id number] [place] [address] May, [facility] [address] [facility] [id number] [place] [address] May, [facility] [address] [facility] [id number] [place] [address] May, [facility] [address] [facility] [id number] [place] [address] May, [facility] [address] [id number] [place] [address] May, [facility] [address] [id number] [place] [address] May, [facility] [address] [facility] [id number] [facility] [place] [address] May, [facility] [address] [facility] [id number] [facility] [place] [address] May, [facility] [address] [id number] [facility] [place] [address] May, [facility] [address] [facility] [id number] [facility] [place] [address] May, [facility] [address] [facility] [id number] [facility] [place] [address] Apr, [facility] [address] [facility] [id number] [place] [address] Apr, [facility] [address] [id number] [place] [address] Apr, [facility] [address] [id number] [place] [address] Apr, [facility] [address] [id number] [place] [address] Apr, [facility] [address] [id number] [place] [address] Apr, [facility] [address] [id number] [place] [address] Apr, [facility] [address] [id number] [place] [address] Apr, [facility] [address] [facility] [id number] [place] [address] Apr, [facility] [address] [id number] [place] [address] Apr, [facility] [address] [id number] [place] [address] Apr, [facility] [address] [id number] [place] [address] Apr, [facility] [address] [id number] [place] [address] Apr, [facility] [address] [id number] [place] [address] Apr, [facility] [address] [id number] [place] [address] March, [facility] [address] [id number] [place] [address] March, [facility] [address] [id number] [place] [address] March, [facility] [address] [id number] [place] [address] March, [facility] [address] [id number] [place] [address] March, [facility] [address] [id number] [place] [address] March, [facility] [address] [id number] [place] [address] March, [facility] [address] [id number] [place] [address] March, [facility] [address] [id number] [place] [address] March, [facility] [address] [id number] [place] [address] March, [facility] [address] [id number] [place] [address] Feb, [facility] [address] [id number] [place] [address] Feb, [facility] [address] [id number] [place] [address] Feb, [facility] [address] [id number] [place] [address] Feb, [facility] [address] [id number] [place] [address] Feb, [facility] [address] [facility] [id number] [place] [address] Feb, [facility] [address] [facility] [id number] [place] [address] Feb, [facility] [address] [facility] [id number] [place] [address] Feb, [facility] [address] [id number] [place] [address] Jan, [facility] [address] [facility] [id number] [place] [address] Jan, [facility] [address] [id number] [place] [address] Jan, [facility] [address] [id number] [place] [address] Jan, [facility] [address] [id number] [place] [address] Jan, [facility] [address] [id number] [place] [address] Jan, [facility] [address] [id number] [place] [address] Jan, [facility] [address] [id number] [place] [address] Jan, [facility] [address] [id number] [place] [address] Jan, [facility] [address] [id number] [place] [address] Jan, [facility] [address] [facility] [id number] [place] [address] Dec, [facility] [address] [id number] [place] [address] Dec, [facility] [address] [id number] [place] [address] Nov, [facility] [address] [id number] [place] [address] Nov, [facility] [address] [id number] [place] [address] Nov, [facility] [address] [id number] [place] [address] Nov, [facility] [address] [id number] [place] [address] Nov, [facility] [address] [id number] [place] [address] Nov, [facility] [address] [id number] [place] [address] Nov, [facility] [address] [id number] [place] [address] Nov, [facility] [address] [id number] [place] [address] Oct, [facility] [address] [id number] [place] [address] Oct, [facility] [address] [id number] [place] [address] Oct, [facility] [address] [id number] [place] [address] Oct, [facility] [address] [id number] [place] [address] Oct, [facility] [address] [id number] [place] [address] Oct, [facility] [address] [id number] [place] [address] Sep, [facility] [address] [id number] [place] [address] Sep, [facility] [address] [id number] [place] [address] Sep, [facility] [address] [id number] [place] [address] Sep, [facility] [address] [id number] [place] [address] Sep, [facility] [address] [facility] [id number] [place] [address] Aug, [facility] [address] [id number] [place] [address] Aug, [facility] [address] [id number] [place] [address] Aug, [facility] [address] [id number] [place] [address] Aug, [facility] [address] [id number] [place] [address] Aug, [facility] [address] [id number] [place] [address] Aug, [facility] [address] [id number] [place] [address] Jul, [facility] [address] [id number] [place] [address] Jul, [facility] [address] [id number] [place] [address] Jul, [facility] [address] [id number] [place] [address] Jun, [facility] [address] [id number] [place] [address] Jun, [facility] [address] [id number] [place] [address] May, [facility] [address] [id number] [place] [address] May, [facility] [address] [id number] [place] [address] Apr, [facility] [address] [id number] [place] [address] Apr, [facility] [address] [id number] [place] [address] Apr, [facility] [address] [id number] [place] [address] March, [facility] [address] [id number] [place] [address] Feb, [facility] [address] [id number] [place] [address] Feb, [facility] [address] [id number] [place] [address] Jan, [facility] [address] [id number] [place] [address] Jan, [facility] [address] [id number] [place] [address] Jan, [facility] [address] [id number] [place] [address] Jan, [facility] [id number] [place] [address] Jan, [facility] [address] [id number] [place] [address] Dec, [facility] [address] [id number] [place] [address] Dec, [facility] [address] [id number] [place] [address] Dec, [facility] [address] [id number] [place] [address] Dec, [facility] [address] [id number] [place] [address] Dec, [facility] [address] [id number] [place] [address] Dec, [facility] [place] [address] [place] [id number] Nov, 2012 [facility] [address] [id number] [place] [address] Nov, [facility] [address] [id number] [place] [address] Nov, [facility] [address] [id number] [place] [address] Nov, [facility] [address] [id number] [place] [address] Nov, [facility] [address] [id number] [place] [address] Oct, [facility] [address] [id number] [place] [address] Oct, [facility] [address] [id number] [place] [address] Oct, [facility] [address] [id number] [place] [address] Oct, [facility] [address] [id number] [place] [address] Oct, [facility] [address] [id number] [place] [address] Oct, [facility] [address] [id number] [place] [address] Oct, [facility] [address] [id number] [place] [address] Oct, [facility] [address] [id number] [place] [address] Sep, [facility] [address] [id number] [place] [address] Sep, [facility] [address] [id number] [place] [address] Sep, [facility] [address] [id number] [place] [address] Sep, [facility] [address] [id number] [place] [address] Sep, [facility] [address] [id number] [place] [address] Sep, [facility] [address] [id number] [place] [address] Sep, [facility] [id number] [place] [address] Sep, [facility] [id number] [place] [address] Sep, [facility] [id number] [place] [address] Sep, [facility] [id number] [place] [address] Sep, [facility] [id number] [place] [address] Sep, [facility] [id number] [place] [address] Sep, [facility] [id number] [place] [address] Sep, [facility] [id number] [place] [address] Sep, [facility] [id number] [place] [address] Sep, IMMUNIZATIONS No Known Immunizations SOCIAL HISTORY [...]
--- OUTSIDE RECORDS SUMMARY | 2020-04-17 21:21 | XMS REPORT ---
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 Active 87611483 Problem Other chronic pain G89.29 Active 8 9354354 Problem Hypertension, essential I10 Active 89868017 Problem Vitamin D deficiency E55.9 Active 37857995 Problem Mood disorder F39 Active 184976 05 Problem Type 1 diabetes mellitus with hyperglycemia E10.65 Active [id number] Problem Type 1 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 Active 20556203 Problem Chronic fatigue R53.82 Active 8422 9001 Problem Controlled diabetes mellitus type 1 without complications E10.9 Active 22341354 ALLERGIES No Information ENCOUNTERS Encounter Location Date Diagnosis [place] [address] [address] 03 Jan, 2020 Type 1 diabetes mellitus with other diab etic neurological complication E10.49 [place] [address] [address] 03 Dec, 2019 Type 1 diabetes mellitus with other diab etic neurological complication E10.49 [place] [address] [address] Nov, Type 1 diabetes mellitus with diabetic p olyneuropathy E10.42 ; Mood disorder F39 ; Vitamin D deficiency E55.9 and Renal insufficiency N28.9 [place] [address] [address] Nov, Type 1 diabetes mellitus with other diab etic neurological complication E10.49 [place] [address] [address] Oct, Other chronic pain G89.29 [facility] [address] [address] Oct, Type 1 diabetes mellitus with other diab etic neurological complication E10.49 [facility] [address] [place] [id number] [place] [address] Oct, [facility] [address] [address] Aug, Type 1 diabetes mellitus with other diab etic neurological complication E10.49 [facility] [address] [address] 14 Aug, 2019 Encounter for immunization Z23 [facility] [address] [address] Aug, Vitamin D deficiency E55.9 [facility] [address] [address] Jul, Type 1 diabetes mellitus with other diab etic neurological complication E10.49 [facility] [address] [address] Jul, Type 1 diabetes mellitus with hyperglyce uma E10.65 [facility] [address] [address] Jun, Type 1 diabetes mellitus with other diab etic neurological complication E10.49 [facility] [id number] [place] [address] May, [facility] [address] [address] May, [facility] [address] [address] May, Other chronic pain G89.29 [facility] [id number] [place] [address] May, [facility] [address] [address] May, Type 1 diabetes mellitus with other diab etic neurological complication E10.49 [place] [address] [place] [id number] [place] [address] Apr, [place] [address] [place] [id number] [place] [address] Apr, Type 1 diabetes mellitus with other diab etic neurological complication E10.49 [place] [address] [place] [id number] [place] [address] Apr, Encounter for Medicare annual wellness e xam Z00.00 [place] [address] [place] [id number] [place] [address] March, Encounter for Medicare annual wellness e xam Z00.00 and Type 1 diabetes mellitus with other diabetic neurological complication E10.49 [place] [address] [place] [id number] [place] [address] Feb, Type 1 diabetes mellitus with other diab etic neurological complication E10.49 [place] [address] [place] [id number] [place] [address] Feb, Encounter for Medicare annual wellness e xam Z00.00 ; Mood disorder F39 ; Type 1 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 ; Hypertension, essential I10 and Chronic fatigue R53.82 [place] [address] [place] [id number] [place] [address] Jan, Type 1 diabetes mellitus with other diab etic neurological complication E10.49 [place] [address] [place] [id number] [place] [address] Jan, [place] [address] [place] [id number] [place] [address] Jan, Other chronic pain G89.29 [place] [address] [place] [id number] [place] [address] Dec, [place] [address] [place] [id number] [place] [address] Dec, Type 1 diabetes mellitus with other diab etic neurological complication E10.49 [place] [address] [address] Dec, Other chronic pain G89.29 [facility] [address] [address] Nov, [facility] [address] [id number] Nov, Caries K02.9 [place] [address] [address] Nov, Type 1 diabetes mellitus with other diab etic neurological complication E10.49 [place] [address] [address] Nov, Controlled diabetes mellitus type 1 with out complications E10.9 ; Other chronic pain G89.29 and Pain in left knee M25.562 [facility] [address] [id number] Oct, Dental examination Z01.20 [place] [address] [address] 14 Oct, 2018 Cutaneous abscess of unspecified foot L0 2.619 and Cellulitis of unspecified part of limb L03.119 [place] [address] [address] Oct, [place] [address] [address] 10 Oct, 2018 Type 1 diabetes mellitus with other diab etic neurological complication E10.49 [facility] [address] [id number] Oct, Dental examination Z01.20 and Caries K02 .9 [place] [address] [address] 04 Oct, 2018 Cutaneous abscess of left foot L02.612 a nd Cellulitis of left lower limb L03.116 [place] [address] [address] 04 Oct, 2018 Dental examination Z01.20 and Pain, dent al K08.89 [facility] [address] [facility]NOTE 3] [id number] [address] [place] [address] Sep, Left foot pain M79.672 and L eft anterior knee pain M25.562 [facility] [address] [address] Sep, Type 1 diabetes mellitus with other diab etic neurological complication E10.49 [facility] [address] [place] [id number] [place] [address] Sep, [facility] [address] [address] Aug, Type 1 diabetes mellitus with other diab etic neurological complication E10.49 [place] [address] [address] 10 Aug, 2018 Encounter for immunization Z23 [facility] [address] [address] 05 Aug, 2018 Type 1 diabetes mellitus with hyperglyce uma E10.65 [facility] [address] [address] 21 Jul, 2018 Type 1 diabetes mellitus with hyperglyce uma E10.65 [facility] [address] [address] 19 Jul, 2018 [facility] [address] [address] 18 Jul, 2018 [facility] [address] [address] 17 Jul, 2018 Type 1 diabetes mellitus with other diab etic neurological complication E10.49 [facility] [address] [address] Jul, Type 1 diabetes mellitus with other diab etic neurological complication E10.49 and Mood disorder F39 [facility] [address] [address] Jun, [facility] [address] [address] Jun, Type 1 diabetes mellitus with other diab etic neurological complication E10.49 and Chronic fatigue R53.82 [facility] [address] [place] [id number] [place] [address] May, Type 1 diabetes mellitus with other diab etic neurological complication E10.49 [facility] [address] [place] [id number] [place] [address] May, [facility] [address] [place] [id number] [place] [address] May, [facility] [address] [place] [address] [id number] [place] [address] Apr, [facility] [address] [address] Apr, Type 1 diabetes mellitus with other diab etic neurological complication E10.49 [facility] [address] [place] [id number] [place] [address] March, [facility] [address] [address] Feb, [facility] [address] [place] [id number] [place] [address] Feb, Type 1 diabetes mellitus with other diab etic neurological complication E10.49 ; Tobacco abuse Z72.0 and Tobacco abuse counseling Z71.6 [place] [address] [place] [id number] [place] [address] Jan, Type 1 diabetes mellitus with hyperglyce uma E10.65 [facility] [address] [place] [id number] [place] [address] Jan, [facility] [address] [place] [id number] [place] [address] Dec, Tobacco abuse Z72.0 [place] [address] [address] Dec, Type 1 diabetes mellitus with hyperglyce uma E10.65 [facility] [address] [address] Dec, Type 1 diabetes mellitus with hyperglyce uma E10.65 ; Tobacco abuse Z72.0 and Tobacco abuse counseling Z71.6 [facility] [address] [place] [id number] [place] [address] Nov, Type 1 diabetes mellitus with hyperglyce uma E10.65 [facility] [address] [place] [id number] [place] [address] Oct, Type 1 diabetes mellitus with hyperglyce uma E10.65 [facility] [address] [address] Oct, Type 1 diabetes mellitus with hyperglyce uma E10.65 [facility] [address] [address] Sep, Type 1 diabetes mellitus with hyperglyce uma E10.65 [place] [address] [address] Aug, Type 1 diabetes mellitus with hyperglyce uma E10.65 [place] [address] [address] Aug, [facility] [address] [address] Aug, Type 1 diabetes mellitus with hyperglyce uma E10.65 [place] [address] [address] Aug, Encounter for immunization Z23 [place] [address] [address] Aug, Type 1 diabetes mellitus with hyperglyce uma E10.65 [facility] [address] [place] [address] [address] [place] [address] Jul, Type 1 diabetes mellitus with hyperglyce uma E10.65 [place] [address] [address] Jul, Type 1 diabetes mellitus with hyperglyce uma E10.65 [facility] [address] [address] May, Type 1 diabetes mellitus with hyperglyce uma E10.65 [place] [address] [place] [address] May, [facility] [address] [address] Apr, [facility] [address] [address] Apr, Type 1 diabetes mellitus with hyperglyce uma E10.65 [facility] [address] [address] March, [facility] [address] [address] March, [facility] [address] [address] Jan, [facility] [address] [address] Jan, [facility] [address] [address] Jan, Type 1 diabetes mellitus with diabetic p olyneuropathy E10.42 [facility] [address] [address] Jan, Type 1 diabetes mellitus with hyperglyce uma E10.65 ; Excessive cerumen in both ear canals H61.23 and Controlled diabetes mellitus type 1 without complications E10.9 [facility] [address] [address] Dec, [facility] [address] [address] Dec, [facility] [address] [address] Dec, [facility] [address] [address] Dec, [facility] [address] [address] Nov, [facility] [address] [address] Nov, [facility] [address] [address] Oct, Type 1 diabetes mellitus with hyperglyce uma E10.65 [facility] [address] [address] Sep, [facility] [address] [address] Sep, [facility] [address] [address] Sep, Controlled diabetes mellitus type 1 with out complications E10.9 [facility] [address] [address] Sep, [facility] [address] [id number] Aug, Dental caries K02.9 [facility] [address] [address] Aug, Type 1 diabetes mellitus with diabetic p olyneuropathy E10.42 [facility] [address] [address] Aug, [facility] [address] [address] Aug, [facility] [address] [address] Aug, [facility] [address] [address] Jul, Type 1 diabetes mellitus with hyperglyce uma E10.65 [facility] [address] [address] Jul, Type 1 diabetes mellitus with hyperglyce uma E10.65 ; Tooth pain K08.8 and Encounter for immunization Z23 [facility] [address] [id number] 08 Jul, 2016 Dental examination Z01.20 [facility] [address] [address] 08 Jul, 2016 [facility] [address] [facility] [place] [address] Jul, [facility] [address] [id number] [place] [address] Jul, [facility] [address] [id number] [place] [address] Jun, [facility] [address] [id number] [place] [address] May, [facility] [address] [id number] [place] [address] Apr, [facility] [address] [id number] [place] [address] Apr, [facility] [address] [id number] [place] [address] Apr, [facility] [address] [place] [id number] [place] [address] March, [facility] [address] [id number] [place] [address] March, [facility] [address] [place] [id number] [place] [address] Feb, [facility] [address] [id number] [place] [address] Feb, [facility] [address] [place] [id number] [place] [address] Feb, Type 1 diabetes mellitus with hyperglyce uma E10.65 [facility] [address] [facility] [place] [address] Jan, [facility] [address] [place] [id number] [place] [address] Jan, [facility] [address] [id number] [place] [address] Jan, [facility] [address] [id number] [place] [address] Jan, [facility] [address] [place] [address] [id number] [place] [address] Dec, [facility] [address] [address] Nov, [facility] [address] [address] Nov, [facility] [address] [address] Oct, [facility] [address] [address] Oct, Type 1 diabetes mellitus with diabetic a utonomic (poly)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 ; Type 1 diabetes mellitus with hyperglycemia E10.65 ; Gastroparesis K31.84 and Esophageal stricture K22.2 [facility] [address] [address] Oct, [facility] [address] [address] Sep, [facility] [address] [address] Sep, Type 1 diabetes mellitus with other diab etic neurological complication E10.49 [place] [address] [address] Aug, Encounter for immunization Z23 [facility] [address] [address] Aug, [facility] [address] [address] Aug, [facility] [address] [address] Jul, [facility] [address] [address] Jul, [facility] [address] [address] Jun, [facility] [address] [address] Jun, [facility] [address] [place] [id number] [place] [address] Jun, [facility] [address] [place] [id number] [place] [address] May, [facility] [address] [place] [id number] [place] [address] May, [facility] [address] [place] [id number] [place] [address] May, Diabetes type 1, controlled 250.01 [facility] [address] [place] [id number] [place] [address] May, [facility] [address] [place] [id number] [place] [address] May, [facility] [address] [id number] Apr, Dental examination V72.2 [facility] [address] [place] [id number] [place] [address] Apr, [facility] [address] [place] [id number] [place] [address] Apr, [facility] [address] [place] [id number] [place] [address] Apr, [facility] [address] [place] [id number] [place] [address] Apr, [facility] [address] [place] [id number] [place] [address] Apr, [facility] [address] [facility] [place] [id number] Apr, Dental examination V72.2 [facility] [address] [place] [id number] [place] [address] Apr, [facility] [address] [place] [id number] [place] [address] Apr, [facility] [address] [place] [id number] [place] [address] March, Diabetes mellitus type 1 250.01 [facility] [address] [id number] [place] [address] March, [facility] [address] [id number] [place] [address] Feb, [facility] [address] [id number] [place] [address] Feb, [facility] [address] [id number] [place] [address] Jan, [facility] [address] [id number] [place] [address] Jan, [facility] [address] [id number] [place] [address] Jan, [facility] [address] [id number] [place] [address] Jan, [facility] [address] [id number] [place] [address] Dec, [facility] [address] [id number] [place] [address] Dec, [facility] [address] [id number] [place] [address] Nov, [facility] [address] [id number] [place] [address] Nov, [facility] [address] [id number] [place] [address] Nov, [facility] [address] [id number] [place] [address] Nov, [facility] [address] [id number] [place] [address] Nov, [facility] [address] [id number] [place] [address] Nov, [facility] [address] [id number] [place] [address] Nov, [facility] [address] [id number] [place] [address] Oct, [facility] [address] [facility]NOTE 3] [id number] [place] [address] Oct, [facility] [address] [id number] [place] [address] Sep, [facility] [address] [id number] [place] [address] Aug, [facility] [address] [id number] [place] [address] Aug, [facility] [address] [id number] [place] [address] Aug, [facility] [address] [id number] [place] [address] Aug, [facility] [address] [id number] [place] [address] Aug, [facility] [address] [id number] [place] [address] Aug, [facility] [address] [id number] [place] [address] Aug, [facility] [address] [id number] [place] [address] Aug, [facility] [address] [id number] [place] [address] Aug, [facility] [address] [id number] [place] [address] Aug, [facility] [address] [id number] [place] [address] Aug, [facility] [address] [id number] [place] [address] Aug, [facility] [address] [id number] [place] [address] Aug, 2013 [facility] [address] [id number] [place] [address] Aug, [facility] [address] [id number] [place] [address] Jul, [facility] [address] [facility][NOTE 3] [id number] [place] [address] Jul, [facility] [address] [facility][NOTE 3] [id number] [place] [address] Jul, [facility] [address] [facility][NOTE 3] [id number] [place] [address] Jul, [facility] [address] [facility][NOTE 3] [id number] [facility] [place] [address] Jun, [facility] [address] [facility][NOTE 3] [id number] [place] [address] Jun, [facility] [address] [id number] [place] [address] Jun, [facility] [address] [id number] [place] [address] Jun, [facility] [address] [id number] [place] [address] May, [facility] [address] [id number] [place] [address] May, [facility] [address] [id number] [place] [address] May, [facility] [address] [id number] [place] [address] May, [facility] [address] [facility][NOTE 3] [id number] [place] [address] May, [facility] [address] [facility][NOTE 3] [id number] [place] [address] May, [facility] [address] [facility][NOTE 3] [id number] [place] [address] May, [facility] [address] [id number] [place] [address] May, [facility] [address] [facility] [id number] [place] [address] May, [facility] [address] [facility][NOTE 3] [id number] [facility] [place] [address] May, [facility] [address] [facility][NOTE 3] [id number] [facility] [place] [address] May, [facility] [address] [id number] [facility] [place] [address] May, [facility] [address] [facility][NOTE 3] [id number] [facility] [place] [address] May, [facility] [address] [facility][NOTE 3] [id number] [facility] [place] [address] Apr, [facility] [address] [facility][NOTE 3] [id number] [place] [address] Apr, [facility] [address] [id number] [place] [address] Apr, [facility] [address] [id number] [place] [address] Apr, [facility] [address] [id number] [place] [address] Apr, [facility] [address] [id number] [place] [address] Apr, [facility] [address] [id number] [place] [address] Apr, [facility] [address] [id number] [place] [address] Apr, [facility] [address] [facility][NOTE 3] [id number] [place] [address] Apr, [facility] [address] [id number] [place] [address] Apr, [facility] [address] [id number] [place] [address] Apr, [facility] [address] [id number] [place] [address] Apr, [facility] [address] [id number] [place] [address] Apr, [facility] [address] [id number] [place] [address] Apr, [facility] [address] [id number] [place] [address] March, [facility] [address] [id number] [place] [address] March, [facility] [address] [id number] [place] [address] March, [facility] [address] [id number] [place] [address] March, [facility] [address] [id number] [place] [address] March, [facility] [address] [id number] [place] [address] March, [facility] [address] [id number] [place] [address] March, [facility] [address] [id number] [place] [address] March, [facility] [address] [id number] [place] [address] March, [facility] [address] [id number] [place] [address] March, [facility] [address] [id number] [place] [address] Feb, [facility] [address] [id number] [place] [address] Feb, [facility] [address] [id number] [place] [address] Feb, [facility] [address] [id number] [place] [address] Feb, [facility] [address] [id number] [place] [address] Feb, [facility] [address] [facility][NOTE 3] [id number] [place] [address] Feb, [facility] [address] [facility][NOTE 3] [id number] [place] [address] Feb, [facility] [address] [facility][NOTE 3] [id number] [place] [address] Feb, [facility] [address] [id number] [place] [address] Jan, [facility] [address] [facility][NOTE 3] [id number] [place] [address] Jan, [facility] [address] [id number] [place] [address] Jan, [facility] [address] [id number] [place] [address] Jan, [facility] [address] [id number] [place] [address] Jan, [facility] [address] [id number] [place] [address] Jan, [facility] [address] [id number] [place] [address] Jan, [facility] [address] [id number] [place] [address] Jan, [facility] [address] [id number] [place] [address] Jan, [facility] [address] [id number] [place] [address] Jan, [facility] [address] [facility][NOTE 3] [id number] [place] [address] Dec, [facility] [address] [id number] [place] [address] Dec, [facility] [address] [id number] [place] [address] Nov, [facility] [address] [id number] [place] [address] Nov, [facility] [address] [id number] [place] [address] Nov, [facility] [address] [id number] [place] [address] Nov, [facility] [address] [id number] [place] [address] Nov, [facility] [address] [id number] [place] [address] Nov, [facility] [address] [id number] [place] [address] Nov, [facility] [address] [id number] [place] [address] Nov, [facility] [address] [id number] [place] [address] Oct, [facility] [address] [id number] [place] [address] Oct, [facility] [address] [id number] [place] [address] Oct, [facility] [address] [id number] [place] [address] Oct, [facility] [address] [id number] [place] [address] Oct, [facility] [address] [id number] [place] [address] Oct, [facility] [address] [id number] [place] [address] Sep, [facility] [address] [id number] [place] [address] Sep, [facility] [address] [id number] [place] [address] Sep, [facility] [address] [id number] [place] [address] Sep, [facility] [address] [id number] [place] [address] Sep, [facility] [address] [facility][NOTE 3] [id number] [place] [address] Aug, [facility] [address] [id number] [place] [address] Aug, [facility] [address] [id number] [place] [address] Aug, [facility] [address] [id number] [place] [address] Aug, [facility] [address] [id number] [place] [address] Aug, [facility] [address] [id number] [place] [address] Aug, [facility] [address] [id number] [place] [address] Jul, [facility] [address] [id number] [place] [address] Jul, [facility] [address] [id number] [place] [address] Jul, [facility] [address] [id number] [place] [address] Jun, [facility] [address] [id number] [place] [address] Jun, [facility] [address] [id number] [place] [address] May, [facility] [address] [id number] [place] [address] May, [facility] [address] [id number] [place] [address] Apr, [facility] [address] [id number] [place] [address] Apr, [facility] [address] [id number] [place] [address] Apr, [facility] [address] [id number] [place] [address] March, [facility] [address] [id number] [place] [address] Feb, [facility] [address] [id number] [place] [address] Feb, [facility] [address] [id number] [place] [address] Jan, [facility] [address] [id number] [place] [address] Jan, [facility] [address] [id number] [place] [address] Jan, [facility] [address] [id number] [place] [address] Jan, [facility] [id number] [place] [address] Jan, [facility] [address] [id number] [place] [address] Dec, [facility] [address] [id number] [place] [address] Dec, [facility] [address] [id number] [place] [address] Dec, [facility] [address] [id number] [place] [address] Dec, [facility] [address] [id number] [place] [address] Dec, [facility] [address] [id number] [place] [address] Dec, [facility] [address] [place] [id number] Nov, 2012 [facility] [address] [id number] [place] [address] Nov, [facility] [address] [id number] [place] [address] Nov, [facility] [address] [id number] [place] [address] Nov, [facility] [address] [id number] [place] [address] Nov, [facility] [address] [id number] [place] [address] Oct, [facility] [address] [id number] [place] [address] Oct, [facility] [address] [id number] [place] [address] Oct, [facility] [address] [id number] [place] [address] Oct, [facility] [address] [id number] [place] [address] Oct, [facility] [address] [id number] [place] [address] Oct, [facility] [address] [id number] [place] [address] Oct, [facility] [address] [id number] [place] [address] Oct, [facility] [address] [id number] [place] [address] Sep, [facility] [address] [id number] [place] [address] Sep, [facility] [address] [id number] [place] [address] Sep, [facility] [address] [id number] [place] [address] Sep, [facility] [address] [id number] [place] [address] Sep, [facility] [address] [id number] [place] [address] Sep, [facility] [address] [id number] [place] [address] Sep, [facility] [id number] [place] [address] Sep, [facility] [id number] [place] [address] Sep, [facility] [id number] [place] [address] Sep, [facility] [id number] [place] [address] Sep, [facility] [id number] [place] [address] Sep, [facility] [id number] [place] [address] Sep, [facility] [id number] [place] [address] Sep, [facility] [id number] [place] [address] Sep, [facility] [id number] [place] [address] Sep, IMMUNIZATIONS No Known Immunizations SOCIAL HISTORY [...]
--- OUTSIDE RECORDS SUMMARY | 2020-04-17 21:21 | XMS REPORT ---
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 Active 60208503 Problem Other chronic pain G89.29 Active 8 4427393 Problem Hypertension, essential I10 Active 37481248 Problem Vitamin D deficiency E55.9 Active 10688416 Problem Mood disorder F39 Active 846773 05 Problem Type 1 diabetes mellitus with hyperglycemia E10.65 Active 106020459319200 Problem Type 1 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 Active 92182129 Problem Chronic fatigue R53.82 Active 8422 9001 Problem Controlled diabetes mellitus type 1 without complications E10.9 Active 30289754 ALLERGIES No Information ENCOUNTERS Encounter Location Date Diagnosis [place] [address] [address] 03 Jan, 2020 Type 1 diabetes mellitus with other diab etic neurological complication E10.49 [place] [address] [address] 03 Dec, 2019 Type 1 diabetes mellitus with other diab etic neurological complication E10.49 [place] [address] [address] Nov, Type 1 diabetes mellitus with diabetic p olyneuropathy E10.42 ; Mood disorder F39 ; Vitamin D deficiency E55.9 and Renal insufficiency N28.9 [place] [address] [address] Nov, Type 1 diabetes mellitus with other diab etic neurological complication E10.49 [place] [address] [address] Oct, Other chronic pain G89.29 [facility] [address] [address] Oct, Type 1 diabetes mellitus with other diab etic neurological complication E10.49 [facility] [address] [place] [id number] [place] [address] Oct, [facility] [address] [address] Aug, Type 1 diabetes mellitus with other diab etic neurological complication E10.49 [facility] [address] [address] 14 Aug, 2019 Encounter for immunization Z23 [facility] [address] [address] Aug, Vitamin D deficiency E55.9 [facility] [address] [address] Jul, Type 1 diabetes mellitus with other diab etic neurological complication E10.49 [facility] [address] [address] Jul, Type 1 diabetes mellitus with hyperglyce uma E10.65 [facility] [address] [address] Jun, Type 1 diabetes mellitus with other diab etic neurological complication E10.49 [facility] [address] [id number] [place] [address] May, [facility] [address] [address] May, [facility] [address] [address] May, Other chronic pain G89.29 [facility] [address] [id number] [place] [address] May, [facility] [address] [address] May, Type 1 diabetes mellitus with other diab etic neurological complication E10.49 [place] [address] [id number] [place] [address] Apr, [place] [address] [place] [id number] [place] [address] Apr, Type 1 diabetes mellitus with other diab etic neurological complication E10.49 [place] [address] [address] [id number] [place] [address] Apr, Encounter for Medicare annual wellness e xam Z00.00 [place] [address] [id number] [place] [address] March, Encounter for Medicare annual wellness e xam Z00.00 and Type 1 diabetes mellitus with other diabetic neurological complication E10.49 [place] [address] [address] [id number] [place] [address] Feb, Type 1 diabetes mellitus with other diab etic neurological complication E10.49 [place] [address] [address] [id number] [place] [address] Feb, Encounter for Medicare annual wellness e xam Z00.00 ; Mood disorder F39 ; Type 1 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 ; Hypertension, essential I10 and Chronic fatigue R53.82 [place] [id number] [place] [address] Jan, Type 1 diabetes mellitus with other diab etic neurological complication E10.49 [place] [address] [address] [id number] [place] [address] Jan, [place] [address] [address] [id number] [place] [address] Jan, Other chronic pain G89.29 [place] [address] [address] [id number] [place] [address] Dec, [place] [address] [place] [address] [id number] [place] [address] Dec, Type 1 diabetes mellitus with other diab etic neurological complication E10.49 [place] [address] [address] Dec, Other chronic pain G89.29 [facility] [address] [address] Nov, [facility] [address] [id number] Nov, Caries K02.9 [place] [address] [address] Nov, Type 1 diabetes mellitus with other diab etic neurological complication E10.49 [place] [address] [address] Nov, Controlled diabetes mellitus type 1 with out complications E10.9 ; Other chronic pain G89.29 and Pain in left knee M25.562 [facility] [address] [id number] Oct, Dental examination Z01.20 [place] [address] [address] 14 Oct, 2018 Cutaneous abscess of unspecified foot L0 2.619 and Cellulitis of unspecified part of limb L03.119 [place] [address] [address] Oct, [place] [address] [address] 10 Oct, 2018 Type 1 diabetes mellitus with other diab etic neurological complication E10.49 [facility] [address] [id number] Oct, Dental examination Z01.20 and Caries K02 .9 [place] [address] [address] 04 Oct, 2018 Cutaneous abscess of left foot L02.612 a nd Cellulitis of left lower limb L03.116 [place] [address] [address] 04 Oct, 2018 Dental examination Z01.20 and Pain, dent al K08.89 [facility] [address] [facility] [id number] [place] [address] Sep, Left foot pain M79.672 and L eft anterior knee pain M25.562 [facility] [address] [address] Sep, Type 1 diabetes mellitus with other diab etic neurological complication E10.49 [facility] [address] [place] [id number] [place] [address] Sep, [facility] [address] [address] Aug, Type 1 diabetes mellitus with other diab etic neurological complication E10.49 [place] [address] [address] 10 Aug, 2018 Encounter for immunization Z23 [facility] [address] [address] 05 Aug, 2018 Type 1 diabetes mellitus with hyperglyce uma E10.65 [facility] [address] [address] 21 Jul, 2018 Type 1 diabetes mellitus with hyperglyce uma E10.65 [facility] [address] [address] 19 Jul, 2018 [facility] [address] [address] 18 Jul, 2018 [facility] [address] [address] 17 Jul, 2018 Type 1 diabetes mellitus with other diab etic neurological complication E10.49 [facility] [address] [address] Jul, Type 1 diabetes mellitus with other diab etic neurological complication E10.49 and Mood disorder F39 [facility] [address] [address] Jun, [facility] [address] [address] Jun, Type 1 diabetes mellitus with other diab etic neurological complication E10.49 and Chronic fatigue R53.82 [facility] [address] [place] [address] [id number] [place] [address] May, Type 1 diabetes mellitus with other diab etic neurological complication E10.49 [facility] [address] [place] [id number] [place] [address] May, [facility] [address] [place] [address] [id number] [place] [address] May, [facility] [address] [place] [id number] [place] [address] Apr, [facility] [address] [address] Apr, Type 1 diabetes mellitus with other diab etic neurological complication E10.49 [facility] [address] [place] [id number] [place] [address] March, [facility] [address] [address] Feb, [facility] [address] [place] [address] [id number] [place] [address] Feb, Type 1 diabetes mellitus with other diab etic neurological complication E10.49 ; Tobacco abuse Z72.0 and Tobacco abuse counseling Z71.6 [place] [address] [place] [id number] [place] [address] Jan, Type 1 diabetes mellitus with hyperglyce uma E10.65 [facility] [address] [place] [id number] [place] [address] Jan, [facility] [address] [place] [id number] [place] [address] Dec, Tobacco abuse Z72.0 [place] [address] [address] Dec, Type 1 diabetes mellitus with hyperglyce uma E10.65 [facility] [address] [address] Dec, Type 1 diabetes mellitus with hyperglyce uma E10.65 ; Tobacco abuse Z72.0 and Tobacco abuse counseling Z71.6 [facility] [address] [place] [id number] [place] [address] Nov, Type 1 diabetes mellitus with hyperglyce uma E10.65 [facility] [address] [place] [id number] [place] [address] Oct, Type 1 diabetes mellitus with hyperglyce uma E10.65 [facility] [address] [address] Oct, Type 1 diabetes mellitus with hyperglyce uma E10.65 [facility] [address] [address] Sep, Type 1 diabetes mellitus with hyperglyce uma E10.65 [place] [address] [address] Aug, Type 1 diabetes mellitus with hyperglyce uma E10.65 [place] [address] [address] Aug, [facility] [address] [address] Aug, Type 1 diabetes mellitus with hyperglyce uma E10.65 [place] [address] [address] Aug, Encounter for immunization Z23 [place] [address] [address] Aug, Type 1 diabetes mellitus with hyperglyce uma E10.65 [facility] [address] [id number] [place] [address] Jul, Type 1 diabetes mellitus with hyperglyce uma E10.65 [place] [address] [address] Jul, Type 1 diabetes mellitus with hyperglyce uma E10.65 [facility] [address] [address] May, Type 1 diabetes mellitus with hyperglyce uma E10.65 [place] [address] [place] [address] May, [facility] [address] [address] Apr, [facility] [address] [address] Apr, Type 1 diabetes mellitus with hyperglyce uma E10.65 [facility] [address] [address] March, [facility] [address] [address] March, [facility] [address] [address] Jan, [facility] [address] [address] Jan, [facility] [address] [address] Jan, Type 1 diabetes mellitus with diabetic p olyneuropathy E10.42 [facility] [address] [address] Jan, Type 1 diabetes mellitus with hyperglyce uma E10.65 ; Excessive cerumen in both ear canals H61.23 and Controlled diabetes mellitus type 1 without complications E10.9 [facility] [address] [address] Dec, [facility] [address] [address] Dec, [facility] [address] [address] Dec, [facility] [address] [address] Dec, [facility] [address] [address] Nov, [facility] [address] [address] Nov, [facility] [address] [address] Oct, Type 1 diabetes mellitus with hyperglyce uma E10.65 [facility] [address] [address] Sep, [facility] [address] [address] Sep, [facility] [address] [address] Sep, Controlled diabetes mellitus type 1 with out complications E10.9 [facility] [address] [address] Sep, [facility] [address] [id number] Aug, Dental caries K02.9 [facility] [address] [address] Aug, Type 1 diabetes mellitus with diabetic p olyneuropathy E10.42 [facility] [address] [address] Aug, [facility] [address] [address] Aug, [facility] [address] [address] Aug, [facility] [address] [address] Jul, Type 1 diabetes mellitus with hyperglyce uma E10.65 [facility] [address] [address] Jul, Type 1 diabetes mellitus with hyperglyce uma E10.65 ; Tooth pain K08.8 and Encounter for immunization Z23 [facility] [address] [id number] 08 Jul, 2016 Dental examination Z01.20 [facility] [address] [address] 08 Jul, 2016 [facility] [address] [id number] [place] [address] Jul, [facility] [address] [id number] [place] [address] Jul, [facility] [address] [id number] [place] [address] Jun, [facility] [address] [id number] [place] [address] May, [facility] [address] [id number] [place] [address] Apr, [facility] [address] [id number] [place] [address] Apr, [facility] [address] [id number] [place] [address] Apr, [facility] [address] [place] [address] [id number] [place] [address] March, [facility] [address] [id number] [place] [address] March, [facility] [address] [place] [id number] [place] [address] Feb, [facility] [address] [id number] [place] [address] Feb, [facility] [address] [id number] [place] [address] Feb, Type 1 diabetes mellitus with hyperglyce uma E10.65 [facility] [address] [id number] [place] [address] Jan, [facility] [address] [place] [address] [id number] [place] [address] Jan, [facility] [address] [id number] [place] [address] Jan, [facility] [address] [id number] [place] [address] Jan, [facility] [address] [address] [id number] [place] [address] Dec, [facility] [address] [address] Nov, [facility] [address] [address] Nov, [facility] [address] [address] Oct, [facility] [address] [address] Oct, Type 1 diabetes mellitus with diabetic a utonomic (poly)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 ; Type 1 diabetes mellitus with hyperglycemia E10.65 ; Gastroparesis K31.84 and Esophageal stricture K22.2 [facility] [address] [address] Oct, [facility] [address] [address] Sep, [facility] [address] [address] Sep, Type 1 diabetes mellitus with other diab etic neurological complication E10.49 [place] [address] [address] Aug, Encounter for immunization Z23 [facility] [address] [address] Aug, [facility] [address] [address] Aug, [facility] [address] [address] Jul, [facility] [address] [address] Jul, [facility] [address] [address] Jun, [facility] [address] [address] Jun, [facility] [id number] [place] [address] Jun, [facility] [id number] [place] [address] May, [facility] [id number] [place] [address] May, [facility] [address] [place] [id number] [place] [address] May, Diabetes type 1, controlled 250.01 [facility] [id number] [place] [address] May, [facility] [id number] [place] [address] May, [facility] [address] [id number] Apr, Dental examination V72.2 [facility] [id number] [place] [address] Apr, [facility] [id number] [place] [address] Apr, [facility] [address] [address] [id number] [place] [address] Apr, [facility] [id number] [place] [address] Apr, [facility] [id number] [place] [address] Apr, [facility] [address] [id number] [place] [id number] Apr, Dental examination V72.2 [facility] [id number] [place] [address] Apr, [facility] [id number] [place] [address] Apr, [facility] [address] [id number] [place] [address] March, Diabetes mellitus type 1 250.01 [facility] [address] [id number] [place] [address] March, [facility] [address] [id number] [place] [address] Feb, [facility] [address] [id number] [place] [address] Feb, [facility] [address] [id number] [place] [address] Jan, [facility] [address] [id number] [place] [address] Jan, [facility] [address] [id number] [place] [address] Jan, [facility] [address] [id number] [place] [address] Jan, [facility] [address] [id number] [place] [address] Dec, [facility] [address] [id number] [place] [address] Dec, [facility] [address] [id number] [place] [address] Nov, [facility] [address] [id number] [place] [address] Nov, [facility] [address] [id number] [place] [address] Nov, [facility] [address] [id number] [place] [address] Nov, [facility] [address] [id number] [place] [address] Nov, [facility] [address] [id number] [place] [address] Nov, [facility] [address] [id number] [place] [address] Nov, [facility] [address] [id number] [place] [address] Oct, [facility] [address] [facility] [id number] [place] [address] Oct, [facility] [address] [id number] [place] [address] Sep, [facility] [address] [id number] [place] [address] Aug, [facility] [address] [id number] [place] [address] Aug, [facility] [address] [id number] [place] [address] Aug, [facility] [address] [id number] [place] [address] Aug, [facility] [address] [id number] [place] [address] Aug, [facility] [address] [id number] [place] [address] Aug, [facility] [address] [id number] [place] [address] Aug, [facility] [address] [id number] [place] [address] Aug, [facility] [address] [id number] [place] [address] Aug, [facility] [address] [id number] [place] [address] Aug, [facility] [address] [id number] [place] [address] Aug, [facility] [address] [id number] [place] [address] Aug, [facility] [address] [id number] [place] [address] Aug, 2013 [facility] [address] [id number] [place] [address] Aug, [facility] [address] [id number] [place] [address] Jul, [facility] [address] [facility] [id number] [place] [address] Jul, [facility] [address] [facility] [id number] [place] [address] Jul, [facility] [address] [facility] [id number] [place] [address] Jul, [facility] [address] [facility] [id number] [place] [address] Jun, [facility] [address] [facility] [id number] [place] [address] Jun, [facility] [address] [id number] [place] [address] Jun, [facility] [address] [id number] [place] [address] Jun, [facility] [address] [id number] [place] [address] May, [facility] [address] [id number] [place] [address] May, [facility] [address] [id number] [place] [address] May, [facility] [address] [id number] [place] [address] May, [facility] [address] [facility] [id number] [place] [address] May, [facility] [address] [facility] [id number] [place] [address] May, [facility] [address] [facility] [id number] [place] [address] May, [facility] [address] [id number] [place] [address] May, [facility] [address] [id number] [place] [address] May, [facility] [address] [facility] [id number] [place] [address] May, [facility] [address] [facility] [id number] [place] [address] May, [facility] [address] [id number] [place] [address] May, [facility] [address] [facility] [id number] [place] [address] May, [facility] [address] [facility] [id number] [place] [address] Apr, [facility] [address] [facility] [id number] [place] [address] Apr, [facility] [facility] [address] [id number] [place] [address] Apr, [facility] [address] [id number] [place] [address] Apr, [facility] [address] [id number] [place] [address] Apr, [facility] [address] [id number] [place] [address] Apr, [facility] [address] [id number] [place] [address] Apr, [facility] [address] [id number] [place] [address] Apr, [facility] [address] [facility] [id number] [place] [address] Apr, [facility] [address] [id number] [place] [address] Apr, [facility] [address] [id number] [place] [address] Apr, [facility] [address] [id number] [place] [address] Apr, [facility] [address] [id number] [place] [address] Apr, [facility] [address] [id number] [place] [address] Apr, [facility] [address] [id number] [place] [address] March, [facility] [address] [id number] [place] [address] March, [facility] [address] [id number] [place] [address] March, [facility] [address] [id number] [place] [address] March, [facility] [address] [id number] [place] [address] March, [facility] [address] [id number] [place] [address] March, [facility] [address] [id number] [place] [address] March, [facility] [address] [id number] [place] [address] March, [facility] [address] [id number] [place] [address] March, [facility] [address] [id number] [place] [address] March, [facility] [address] [id number] [place] [address] Feb, [facility] [address] [id number] [place] [address] Feb, [facility] [address] [id number] [place] [address] Feb, [facility] [address] [id number] [place] [address] Feb, [facility] [address] [id number] [place] [address] Feb, [facility] [address] [facility] [id number] [place] [address] Feb, [facility] [address] [facility] [id number] [place] [address] Feb, [facility] [address] [facility] [id number] [place] [address] Feb, [facility] [address] [id number] [place] [address] Jan, [facility] [address] [facility] [id number] [place] [address] Jan, [facility] [address] [id number] [place] [address] Jan, [facility] [address] [id number] [place] [address] Jan, [facility] [address] [id number] [place] [address] Jan, [facility] [address] [id number] [place] [address] Jan, [facility] [address] [id number] [place] [address] Jan, [facility] [address] [id number] [place] [address] Jan, [facility] [address] [id number] [place] [address] Jan, [facility] [address] [id number] [place] [address] Jan, [facility] [address] [facility] [id number] [place] [address] Dec, [facility] [address] [id number] [place] [address] Dec, [facility] [address] [id number] [place] [address] Nov, [facility] [address] [id number] [place] [address] Nov, [facility] [address] [id number] [place] [address] Nov, [facility] [address] [id number] [place] [address] Nov, [facility] [address] [id number] [place] [address] Nov, [facility] [address] [id number] [place] [address] Nov, [facility] [address] [id number] [place] [address] Nov, [facility] [address] [id number] [place] [address] Nov, [facility] [address] [id number] [place] [address] Oct, [facility] [address] [id number] [place] [address] Oct, [facility] [address] [id number] [place] [address] Oct, [facility] [address] [id number] [place] [address] Oct, [facility] [address] [id number] [place] [address] Oct, [facility] [address] [id number] [place] [address] Oct, [facility] [address] [id number] [place] [address] Sep, [facility] [address] [id number] [place] [address] Sep, [facility] [address] [id number] [place] [address] Sep, [facility] [address] [id number] [place] [address] Sep, [facility] [address] [id number] [place] [address] Sep, [facility] [address] [facility] [id number] [place] [address] Aug, [facility] [address] [id number] [place] [address] Aug, [facility] [address] [id number] [place] [address] Aug, [facility] [address] [id number] [place] [address] Aug, [facility] [address] [id number] [place] [address] Aug, [facility] [address] [id number] [place] [address] Aug, [facility] [address] [id number] [place] [address] Jul, [facility] [address] [id number] [place] [address] Jul, [facility] [address] [id number] [place] [address] Jul, [facility] [address] [id number] [place] [address] Jun, [facility] [address] [id number] [place] [address] Jun, [facility] [address] [id number] [place] [address] May, [facility] [address] [id number] [place] [address] May, [facility] [address] [id number] [place] [address] Apr, [facility] [address] [id number] [place] [address] Apr, [facility] [address] [id number] [place] [address] Apr, [facility] [address] [id number] [place] [address] March, [facility] [address] [id number] [place] [address] Feb, [facility] [address] [id number] [place] [address] Feb, [facility] [address] [id number] [place] [address] Jan, [facility] [address] [id number] [place] [address] Jan, [facility] [address] [id number] [place] [address] Jan, [facility] [address] [id number] [place] [address] Jan, [facility] [place] [id number] [place] [address] Jan, [facility] [address] [id number] [place] [address] Dec, [facility] [address] [id number] [place] [address] Dec, [facility] [address] [id number] [place] [address] Dec, [facility] [address] [id number] [place] [address] Dec, [facility] [address] [id number] [place] [address] Dec, [facility] [address] [id number] [place] [address] Dec, [facility] [address] [place] [id number] 14 Nov, 2012 [facility] [address] [id number] [place] [address] Nov, [facility] [address] [id number] [place] [address] Nov, [facility] [address] [id number] [place] [address] Nov, [facility] [address] [id number] [place] [address] Nov, [facility] [address] [id number] [place] [address] Oct, [facility] [address] [id number] [place] [address] Oct, [facility] [address] [id number] [place] [address] Oct, [facility] [address] [id number] [place] [address] Oct, [facility] [address] [id number] [place] [address] Oct, [facility] [address] [id number] [place] [address] Oct, [facility] [address] [id number] [place] [address] Oct, [facility] [address] [id number] [place] [address] Oct, [facility] [address] [id number] [place] [address] Sep, [facility] [address] [id number] [place] [address] Sep, [facility] [address] [id number] [place] [address] Sep, [facility] [address] [id number] [place] [address] Sep, [facility] [address] [id number] [place] [address] Sep, [facility] [address] [id number] [place] [address] Sep, [facility] [address] [id number] [place] [address] Sep, [facility] [id number] [place] [address] Sep, [facility] [id number] [place] [address] Sep, [facility] [id number] [place] [address] Sep, [facility] [id number] [place] [address] Sep, [facility] [id number] [place] [address] Sep, [facility] [id number] [place] [address] Sep, [facility] [id number] [place] [address] Sep, [facility] [id number] [place] [address] Sep, [facility] [id number] [place] [address] Sep, IMMUNIZATIONS No Known Immunizations SOCIAL HISTORY [...]
--- OUTSIDE RECORDS SUMMARY | 2020-04-17 21:21 | XMS REPORT ---
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 Active 05065191 Problem Other chronic pain G89.29 Active 8 6384996 Problem Hypertension, essential I10 Active 48855870 Problem Vitamin D deficiency E55.9 Active 04775986 Problem Mood disorder F39 Active 232957 05 Problem Type 1 diabetes mellitus with hyperglycemia E10.65 Active [id number] Problem Type 1 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 Active 12167616 Problem Chronic fatigue R53.82 Active 8422 9001 Problem Controlled diabetes mellitus type 1 without complications E10.9 Active [id number] ALLERGIES No Information ENCOUNTERS Encounter Location Date Diagnosis [place] [address] [address] Jan, Type 1 diabetes mellitus with other diab etic neurological complication E10.49 [place] [address] [address] Dec, Type 1 diabetes mellitus with other diab etic neurological complication E10.49 [place] [address] [address] Nov, Type 1 diabetes mellitus with diabetic p olyneuropathy E10.42 ; Mood disorder F39 ; Vitamin D deficiency E55.9 and Renal insufficiency N28.9 [place] [address] [address] Nov, Type 1 diabetes mellitus with other diab etic neurological complication E10.49 [facility] [address] [place] [id number] [place] [address] Oct, Other chronic pain G89.29 [facility] [address] [address] Oct, Type 1 diabetes mellitus with other diab etic neurological complication E10.49 [facility] [address] [address] Oct, [facility] [address] [address] Aug, Type 1 diabetes mellitus with other diab etic neurological complication E10.49 [place] [address] [address] 14 Aug, 2019 Encounter for immunization Z23 [place] [address] [address] Aug, Vitamin D deficiency E55.9 [place] [address] [address] Jul, Type 1 diabetes mellitus with other diab etic neurological complication E10.49 [place] [address] [address] Jul, Type 1 diabetes mellitus with hyperglyce uma E10.65 [place] [address] [address] Jun, Type 1 diabetes mellitus with other diab etic neurological complication E10.49 [facility] [address] [place] [id number] [place] [address] May, [facility] [address] [address] May, [facility] [address] [address] May, Other chronic pain G89.29 [facility] [address] [address] May, [place] [address] [place] [id number] [place] [address] May, Type 1 diabetes mellitus with other diab etic neurological complication E10.49 [place] [address] [place] [id number] [place] [address] Apr, [place] [address] [id number] [place] [address] Apr, Type 1 diabetes mellitus with other diab etic neurological complication E10.49 [place] [address] [place] [id number] [place] [address] Apr, Encounter for Medicare annual wellness e xam Z00.00 [place] [address] [place] [id number] [place] [address] March, Encounter for Medicare annual wellness e xam Z00.00 and Type 1 diabetes mellitus with other diabetic neurological complication E10.49 [place] [address] [place] [id number] [place] [address] Feb, Type 1 diabetes mellitus with other diab etic neurological complication E10.49 [place] [address] [place] [id number] [place] [address] Feb, Encounter for Medicare annual wellness e xam Z00.00 ; Mood disorder F39 ; Type 1 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 ; Hypertension, essential I10 and Chronic fatigue R53.82 [place] [address] [place] [id number] [place] [address] Jan, Type 1 diabetes mellitus with other diab etic neurological complication E10.49 [place] [address] [place] [id number] [place] [address] Jan, [place] [address] [place] [id number] [place] [address] Jan, Other chronic pain G89.29 [place] [address] [place] [id number] [place] [address] Dec, [place] [address] [place] [id number] [place] [address] Dec, Type 1 diabetes mellitus with other diab etic neurological complication E10.49 [facility] [address] [address] 05 Dec, 2018 Other chronic pain G89.29 [place] [address] [address] Nov, [facility] [address] [id number] Nov, Caries K02.9 [place] [address] [address] Nov, Type 1 diabetes mellitus with other diab etic neurological complication E10.49 [place] [address] [address] Nov, Controlled diabetes mellitus type 1 with out complications E10.9 ; Other chronic pain G89.29 and Pain in left knee M25.562 [facility] [address] [id number] Oct, Dental examination Z01.20 [place] [address] [address] 14 Oct, 2018 Cutaneous abscess of unspecified foot L0 2.619 and Cellulitis of unspecified part of limb L03.119 [place] [address] [address] Oct, [place] [address] [address] Oct, Type 1 diabetes mellitus with other diab etic neurological complication E10.49 [facility] [address] [id number] Oct, Dental examination Z01.20 and Caries K02 .9 [place] [address] [address] 04 Oct, 2018 Cutaneous abscess of left foot L02.612 a nd Cellulitis of left lower limb L03.116 [place] [address] [address] Oct, Dental examination Z01.20 and Pain, dent al K08.89 [facility] [address] [facility] [id number] [address] [place] [address] Sep, Left foot pain M79.672 and L eft anterior knee pain M25.562 [facility] [address] [address] Sep, Type 1 diabetes mellitus with other diab etic neurological complication E10.49 [facility] [address] [address] Sep, [place] [address] [address] Aug, Type 1 diabetes mellitus with other diab etic neurological complication E10.49 [facility] [address] [address] 10 Aug, 2018 Encounter for immunization Z23 [place] [address] [address] 05 Aug, 2018 Type 1 diabetes mellitus with hyperglyce uma E10.65 [facility] [address] [address] Jul, Type 1 diabetes mellitus with hyperglyce uma E10.65 [facility] [address] [address] Jul, [facility] [address] [address] Jul, [facility] [address] [address] Jul, Type 1 diabetes mellitus with other diab etic neurological complication E10.49 [facility] [address] [address] Jul, Type 1 diabetes mellitus with other diab etic neurological complication E10.49 and Mood disorder F39 [facility] [address] [address] Jun, [facility] [address] [place] [address] Jun, Type 1 diabetes mellitus with other diab etic neurological complication E10.49 and Chronic fatigue R53.82 [facility] [address] [place] [id number] [place] [address] May, Type 1 diabetes mellitus with other diab etic neurological complication E10.49 [facility] [address] [place] [id number] [place] [address] May, [facility] [address] [address] May, [facility] [address] [address] Apr, [facility] [address] [address] Apr, Type 1 diabetes mellitus with other diab etic neurological complication E10.49 [facility] [address] [place] [id number] [place] [address] March, [facility] [address] [address] Feb, [facility] [address] [address] Feb, Type 1 diabetes mellitus with other diab etic neurological complication E10.49 ; Tobacco abuse Z72.0 and Tobacco abuse counseling Z71.6 [facility] [address] [place] [id number] [place] [address] Jan, Type 1 diabetes mellitus with hyperglyce uma E10.65 [facility] [address] [place] [id number] [place] [address] Jan, [facility] [address] [address] Dec, Tobacco abuse Z72.0 [facility] [address] [address] Dec, Type 1 diabetes mellitus with hyperglyce uma E10.65 [facility] [address] [address] Dec, Type 1 diabetes mellitus with hyperglyce uma E10.65 ; Tobacco abuse Z72.0 and Tobacco abuse counseling Z71.6 [place] [address] [address] Nov, Type 1 diabetes mellitus with hyperglyce uma E10.65 [place] [address] [address] Oct, Type 1 diabetes mellitus with hyperglyce uma E10.65 [place] [address] [address] Oct, Type 1 diabetes mellitus with hyperglyce uma E10.65 [place] [address] [address] Sep, Type 1 diabetes mellitus with hyperglyce uma E10.65 [place] [address] [address] Aug, Type 1 diabetes mellitus with hyperglyce uma E10.65 [place] [address] [address] Aug, [place] [address] [address] Aug, Type 1 diabetes mellitus with hyperglyce uma E10.65 [place] [address] [address] Aug, Encounter for immunization Z23 [place] [address] [address] Aug, Type 1 diabetes mellitus with hyperglyce uma E10.65 [place] [address] [address] Jul, Type 1 diabetes mellitus with hyperglyce uma E10.65 [place] [address] [address] Jul, Type 1 diabetes mellitus with hyperglyce uma E10.65 [place] [address] [address] May, Type 1 diabetes mellitus with hyperglyce uma E10.65 [facility] [address] [address] May, [facility] [address] [address] Apr, [facility] [address] [address] Apr, Type 1 diabetes mellitus with hyperglyce uma E10.65 [facility] [address] [address] March, [facility] [address] [address] March, [facility] [address] [address] Jan, [facility] [address] [address] Jan, [facility] [address] [address] Jan, Type 1 diabetes mellitus with diabetic p olyneuropathy E10.42 [facility] [address] [address] Jan, Type 1 diabetes mellitus with hyperglyce uma E10.65 ; Excessive cerumen in both ear canals H61.23 and Controlled diabetes mellitus type 1 without complications E10.9 [facility] [address] [address] Dec, [facility] [address] [address] Dec, [facility] [address] [address] Dec, [facility] [address] [address] Dec, [facility] [address] [address] Nov, [facility] [address] [address] Nov, [facility] [address] [address] Oct, Type 1 diabetes mellitus with hyperglyce uma E10.65 [facility] [address] [address] Sep, [facility] [address] [address] Sep, [facility] [address] [address] Sep, Controlled diabetes mellitus type 1 with out complications E10.9 [facility] [address] [address] Sep, [facility] [address] [id number] Aug, Dental caries K02.9 [facility] [address] [address] Aug, Type 1 diabetes mellitus with diabetic p olyneuropathy E10.42 [facility] [address] [address] Aug, [facility] [address] [address] Aug, [facility] [address] [address] Aug, [facility] [address] [address] Jul, Type 1 diabetes mellitus with hyperglyce uma E10.65 [facility] [address] [address] Jul, Type 1 diabetes mellitus with hyperglyce uma E10.65 ; Tooth pain K08.8 and Encounter for immunization Z23 [facility] [address] [id number] 08 Sep, 2016 Dental examination Z01.20 [facility] [address] [id number] [place] [address] 08 Jul, 2016 [facility] [address] [place] [id number] [place] [address] 07 Jul, 2016 [facility] [address] [id number] [place] [address] Jul, [facility] [address] [place] [id number] [place] [address] Jun, [facility] [address] [id number] [place] [address] May, [facility] [address] [place] [id number] [place] [address] Apr, [facility] [address] [place] [id number] [place] [address] Apr, [facility] [address] [place] [id number] [place] [address] Apr, [facility] [address] [place] [id number] [place] [address] March, [facility] [address] [place] [id number] [place] [address] March, [facility] [address] [place] [id number] [place] [address] Feb, [facility] [address] [place] [id number] [place] [address] Feb, [facility] [address] [place] [id number] [place] [address] Feb, Type 1 diabetes mellitus with hyperglyce uma E10.65 [facility] [address] [place] [id number] [place] [address] Jan, [facility] [address] [place] [id number] [place] [address] Jan, [facility] [address] [place] [id number] [place] [address] Jan, [facility] [address] [place] [id number] [place] [address] Jan, [facility] [address] [address] Dec, [facility] [address] [address] Nov, [facility] [address] [address] Nov, [facility] [address] [address] Oct, [facility] [address] [address] Oct, Type 1 diabetes mellitus with diabetic a utonomic (poly)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 ; Type 1 diabetes mellitus with hyperglycemia E10.65 ; Gastroparesis K31.84 and Esophageal stricture K22.2 [facility] [address] [address] Oct, [facility] [address] [address] Sep, [facility] [address] [address] Sep, Type 1 diabetes mellitus with other diab etic neurological complication E10.49 [facility] [address] [address] Aug, Encounter for immunization Z23 [facility] [address] [address] Aug, [facility] [address] [address] Aug, [facility] [address] [address] Jul, [facility] [address] [address] 14 Jul, 2015 [facility] [address] [address] Jun, [facility] [address] [id number] [place] [address] Jun, [facility] [place] [facility] [address] [place] [id number] [place] [address] Jun, [facility] [place] [facility] [address] [id number] [place] [address] May, 2014 [facility] [place] [facility] [address] [place] [id number] [place] [address] May, 2014 [facility] [place] [facility] [address] [id number] [place] [address] May, Diabetes type 1, controlled 250.01 [facility] [address] [place] [id number] [place] [address] May, [facility] [place] [facility] [address] [place] [id number] [place] [address] May, [facility] [address] [id number] Apr, Dental examination V72.2 [facility] [place] [facility] [address] [place] [id number] [place] [address] Apr, [facility] [place] [facility] [address] [place] [id number] [place] [address] Apr, [facility] [place] [facility] [address] [place] [id number] [place] [address] Apr, [facility] [place] [facility] [address] [place] [id number] [place] [address] Apr, [facility] [place] [facility] [address] [place] [id number] [place] [address] Apr, [facility] [place] [facility] [address] [id number] Apr, Dental examination V72.2 [facility] [place] [facility] [address] [place] [id number] [place] [address] Apr, [facility] [place] [facility] [address] [place] [id number] [place] [address] Apr, [facility] [place] [facility] [address] [id number] [place] [address] March, Diabetes mellitus type 1 250.01 [facility] [address] [id number] [place] [address] March, [facility] [address] [id number] [place] [address] Feb, [facility] [address] [id number] [place] [address] Feb, [facility] [address] [id number] [place] [address] Jan, [facility] [address] [id number] [place] [address] Jan, [facility] [address] [id number] [place] [address] Jan, [facility] [address] [id number] [place] [address] Jan, [facility] [address] [id number] [place] [address] Dec, [facility] [place] [facility] [address] [id number] [place] [address] Dec, [facility] [address] [id number] [place] [address] Nov, [facility] [place] [facility] [address] [id number] [place] [address] Nov, [facility] [place] [facility] [address] [id number] [place] [address] Nov, [facility] [place] [facility] [address] [id number] [place] [address] Nov, [facility] [place] [facility] [address] [id number] [place] [address] Nov, [facility] [place] [facility] [address] [id number] [place] [address] Nov, [facility] [place] [facility] [address] [id number] [place] [address] Nov, [facility] [place] [facility] [address] [facility] [id number] [place] [address] Oct, [facility] [place] [facility] [address] [id number] [place] [address] Oct, [facility] [place] [facility] [address] [id number] [place] [address] Sep, [facility] [place] [facility] [address] [id number] [place] [address] Aug, [facility] [place] [facility] [address] [id number] [place] [address] Aug, [facility] [place] [facility] [address] [id number] [place] [address] Aug, [facility] [place] [facility] [address] [id number] [place] [address] Aug, [facility] [place] [facility] [address] [id number] [place] [address] Aug, [facility] [place] [facility] [address] [id number] [place] [address] Aug, [facility] [place] [facility] [address] [id number] [place] [address] Aug, [facility] [place] [facility] [address] [id number] [place] [address] Aug, [facility] [place] [facility] [address] [id number] [place] [address] Aug, [facility] [place] [facility] [address] [id number] [place] [address] Aug, [facility] [place] [facility] [address] [id number] [place] [address] Aug, [facility] [place] [facility] [address] [id number] [place] [address] Aug, 2013 [facility] [place] [facility] [address] [id number] [place] [address] Aug, [facility] [place] [facility] [address] [id number] [place] [address] Aug, [facility] [place] [facility] [address] [facility] [id number] [place] [address] Jul, [facility] [place] [facility] [address] [facility] [id number] [place] [address] Jul, [facility] [place] [facility] [address] [facility] [id number] [facility] [address] Jul, [facility] [place] [facility] [address] [facility] [id number] [place] [address] Jul, [facility] [place] [facility] [address] [facility] [id number] [place] [address] Jun, [facility] [facility] [address] [facility] [id number] [place] [address] Jun, [facility] [facility] [address] [id number] [place] [address] Jun, [facility] [facility] [address] [facility] [id number] [place] [address] Jun, [facility] [facility] [address] [id number] [place] [address] May, [facility] [facility] [address] [id number] [place] [address] May, [facility] [place] [facility] [address] [id number] [place] [address] May, [facility] [place] [facility] [address] [facility] [id number] [place] [address] May, [facility] [facility] [address] [facility] [id number] [place] [address] May, [facility] [facility] [address] [facility] [id number] [place] [address] May, [facility] [facility] [address] [id number] [place] [address] May, [facility] [facility] [address] [facility] [id number] [place] [address] May, 2013 [facility] [facility] [address] [facility] [id number] [facility] [place] [address] May, 2013 [facility] [facility] [address] [facility] [id number] [facility] [place] [address] May, [facility] [facility] [address] [id number] [facility] [place] [address] May, 2013 [facility] [address] [facility] [id number] [facility] [place] [address] May, 2013 [facility] [facility] [address] [facility] [id number] [facility] [address] May, [facility] [facility] [address] [facility] [id number] [place] [address] Apr, [facility] [facility] [address] [id number] [place] [address] Apr, [facility] [facility] [address] [id number] [place] [address] Apr, [facility] [facility] [address] [facility] [id number] [place] [address] Apr, [facility] [facility] [address] [id number] [place] [address] Apr, [facility] [facility] [address] [id number] [place] [address] Apr, [facility] [facility] [address] [id number] [place] [address] Apr, [facility] [facility] [address] [facility] [id number] [place] [address] Apr, [facility] [address] [facility] [id number] [place] [address] Apr, [facility] [address] [id number] [place] [address] Apr, [facility] [address] [id number] [place] [address] Apr, [facility] [address] [id number] [place] [address] Apr, [facility] [address] [id number] [place] [address] Apr, [facility] [address] [id number] [place] [address] Apr, [facility] [address] [id number] [place] [address] March, [facility] [address] [id number] [place] [address] March, [facility] [address] [id number] [place] [address] March, [facility] [address] [id number] [place] [address] March, [facility] [address] [id number] [place] [address] March, [facility] [address] [id number] [place] [address] March, [facility] [address] [id number] [place] [address] March, [facility] [address] [id number] [place] [address] March, [facility] [address] [id number] [place] [address] March, [facility] [address] [id number] [place] [address] March, [facility] [address] [id number] [place] [address] Feb, [facility] [address] [id number] [place] [address] Feb, [facility] [address] [id number] [place] [address] Feb, [facility] [address] [id number] [place] [address] Feb, [facility] [address] [facility] [id number] [place] [address] Feb, [facility] [address] [facility] [id number] [place] [address] Feb, [facility] [address] [facility] [id number] [place] [address] Feb, [facility] [address] [id number] [place] [address] Feb, [facility] [address] [facility] [id number] [place] [address] Jan, [facility] [address] [id number] [place] [address] Jan, [facility] [address] [id number] [place] [address] Jan, [facility] [address] [id number] [place] [address] Jan, [facility] [address] [id number] [place] [address] Jan, [facility] [address] [id number] [place] [address] Jan, [facility] [address] [id number] [place] [address] Jan, [facility] [address] [id number] [place] [address] Jan, [facility] [address] [id number] [place] [address] Jan, [facility] [address] [facility] [id number] [place] [address] Jan, [facility] [address] [id number] [place] [address] Dec, [facility] [address] [id number] [place] [address] Dec, [facility] [address] [id number] [place] [address] Nov, [facility] [address] [id number] [place] [address] Nov, [facility] [address] [id number] [place] [address] Nov, [facility] [address] [id number] [place] [address] Nov, [facility] [address] [id number] [place] [address] Nov, [facility] [address] [id number] [place] [address] Nov, [facility] [address] [id number] [place] [address] Nov, [facility] [address] [id number] [place] [address] Nov, [facility] [address] [id number] [place] [address] Oct, [facility] [address] [id number] [place] [address] Oct, [facility] [address] [id number] [place] [address] Oct, [facility] [address] [id number] [place] [address] Oct, [facility] [address] [id number] [place] [address] Oct, [facility] [address] [id number] [place] [address] Oct, [facility] [address] [id number] [place] [address] Sep, [facility] [address] [id number] [place] [address] Sep, [facility] [address] [id number] [place] [address] Sep, [facility] [address] [id number] [place] [address] Sep, [facility] [address] [facility] [id number] [place] [address] Sep, [facility] [address] [id number] [place] [address] Aug, [facility] [address] [id number] [place] [address] Aug, [facility] [address] [id number] [place] [address] Aug, [facility] [address] [id number] [place] [address] Aug, [facility] [address] [id number] [place] [address] Aug, [facility] [address] [id number] [place] [address] Aug, [facility] [address] [id number] [place] [address] Jul, [facility] [address] [id number] [place] [address] Jul, [facility] [address] [id number] [place] [address] Jul, [facility] [address] [id number] [place] [address] Jun, [facility] [address] [id number] [place] [address] Jun, [facility] [address] [id number] [place] [address] May, [facility] [address] [id number] [place] [address] May, [facility] [address] [id number] [place] [address] Apr, [facility] [address] [id number] [place] [address] Apr, [facility] [address] [id number] [place] [address] Apr, [facility] [address] [id number] [place] [address] March, [facility] [address] [id number] [place] [address] Feb, [facility] [address] [id number] [place] [address] Feb, [facility] [address] [id number] [place] [address] Jan, [facility] [address] [id number] [place] [address] Jan, [facility] [address] [id number] [place] [address] Jan, [facility] [id number] [place] [address] Jan, [facility] [address] [id number] [place] [address] Jan, [facility] [address] [id number] [place] [address] Dec, [facility] [address] [id number] [place] [address] Dec, [facility] [address] [id number] [place] [address] Dec, [facility] [address] [id number] [place] [address] Dec, [facility] [address] [id number] [place] [address] Dec, [facility] [address] [id number] [place] [address] Dec, [address] [facility] [address] [place] [id number] Nov, [facility] [address] [id number] [place] [address] Nov, [facility] [address] [id number] [place] [address] Nov, [facility] [address] [id number] [place] [address] Nov, [facility] [address] [id number] [place] [address] Nov, [facility] [address] [id number] [place] [address] Oct, [facility] [address] [id number] [place] [address] Oct, [facility] [address] [id number] [place] [address] Oct, [facility] [address] [id number] [place] [address] Oct, [facility] [address] [id number] [place] [address] Oct, [facility] [address] [id number] [place] [address] Oct, [facility] [address] [id number] [place] [address] Oct, [facility] [address] [id number] [place] [address] Oct, [facility] [address] [id number] [place] [address] Sep, [facility] [address] [id number] [place] [address] Sep, [facility] [address] [id number] [place] [address] Sep, [facility] [address] [id number] [place] [address] Sep, [facility] [address] [id number] [place] [address] Sep, [facility] [address] [id number] [place] [address] Sep, [facility] [id number] [place] [address] Sep, [facility] [id number] [place] [address] Sep, [facility] [id number] [place] [address] Sep, [facility] [id number] [place] [address] Sep, [facility] [id number] [place] [address] Sep, [facility] [id number] [place] [address] Sep, [facility] [id number] [place] [address] Sep, [facility] [id number] [place] [address] Sep, [facility] [id number] [place] [address] Sep, [facility] [id number] [place] [address] Sep, IMMUNIZATIONS No Known Immunizations SOCIAL HISTORY [...]
--- OUTSIDE RECORDS SUMMARY | 2020-04-17 21:22 | XMS REPORT ---
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 Active 39412773 Problem Other chronic pain G89.29 Active 8 5768335 Problem Hypertension, essential I10 Active 18883631 Problem Vitamin D deficiency E55.9 Active 49558640 Problem Mood disorder F39 Active 264680 05 Problem Type 1 diabetes mellitus with hyperglycemia E10.65 Active [id number] Problem Type 1 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 Active 52765214 Problem Chronic fatigue R53.82 Active 8422 9001 Problem Controlled diabetes mellitus type 1 without complications E10.9 Active 09035713 ALLERGIES No Information ENCOUNTERS Encounter Location Date Diagnosis [place] [address] [address] 03 Dec, 2019 Type 1 diabetes mellitus with other diab etic neurological complication E10.49 [place] [address] [address] Nov, Type 1 diabetes mellitus with diabetic p olyneuropathy E10.42 ; Mood disorder F39 ; Vitamin D deficiency E55.9 and Renal insufficiency N28.9 [place] [address] [address] Nov, Type 1 diabetes mellitus with other diab etic neurological complication E10.49 [place] [address] [address] Oct, Other chronic pain G89.29 [place] [address] [address] Oct, Type 1 diabetes mellitus with other diab etic neurological complication E10.49 [facility] [address] [address] Oct, [facility] [address] [address] Aug, Type 1 diabetes mellitus with other diab etic neurological complication E10.49 [facility] [address] [address] 14 Aug, 2019 Encounter for immunization Z23 [facility] [address] [address] 08 Aug, 2019 Vitamin D deficiency E55.9 [facility] [address] [address] Jul, Type 1 diabetes mellitus with other diab etic neurological complication E10.49 [facility] [address] [address] Jul, Type 1 diabetes mellitus with hyperglyce uma E10.65 [facility] [address] [address] Jun, Type 1 diabetes mellitus with other diab etic neurological complication E10.49 [facility] [address] [address] May, [facility] [address] [address] May, [facility] [address] [address] May, Other chronic pain G89.29 [facility] [address] [address] May, [facility] [address] [address] May, Type 1 diabetes mellitus with other diab etic neurological complication E10.49 [facility] [address] [address] Apr, [facility] [address] [id number] [place] [address] Apr, Type 1 diabetes mellitus with other diab etic neurological complication E10.49 [facility] [address] [facility] [place] [address] Apr, Encounter for Medicare annual wellness e xam Z00.00 [place] [address] [id number] [place] [address] March, Encounter for Medicare annual wellness e xam Z00.00 and Type 1 diabetes mellitus with other diabetic neurological complication E10.49 [place] [address] [place] [id number] [place] [address] Feb, Type 1 diabetes mellitus with other diab etic neurological complication E10.49 [place] [address] [facility] [place] [address] Feb, Encounter for Medicare annual wellness e xam Z00.00 ; Mood disorder F39 ; Type 1 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 ; Hypertension, essential I10 and Chronic fatigue R53.82 [place] [address] [place] [id number] [place] [address] Jan, Type 1 diabetes mellitus with other diab etic neurological complication E10.49 [place] [address] [facility] [place] [address] Jan, [place] [address] [id number] [place] [address] Jan, Other chronic pain G89.29 [place] [address] [place] [id number] [place] [address] Dec, [facility] [address] [id number] [place] [address] Dec, Type 1 diabetes mellitus with other diab etic neurological complication E10.49 [facility] [address] [facility] [place] [address] Dec, Other chronic pain G89.29 [place] [address] [place] [id number] [place] [address] Nov, [facility] [address] [id number] Nov, Caries K02.9 [place] [address] [address] Nov, Type 1 diabetes mellitus with other diab etic neurological complication E10.49 [place] [address] [address] Nov, Controlled diabetes mellitus type 1 with out complications E10.9 ; Other chronic pain G89.29 and Pain in left knee M25.562 [facility] [address] [id number] Oct, Dental examination Z01.20 [place] [address] [address] 14 Oct, 2018 Cutaneous abscess of unspecified foot L0 2.619 and Cellulitis of unspecified part of limb L03.119 [place] [address] [address] Oct, [place] [address] [address] 10 Oct, 2018 Type 1 diabetes mellitus with other diab etic neurological complication E10.49 [facility] [address] [id number] Oct, Dental examination Z01.20 and Caries K02 .[address] [address] 04 Oct, 2018 Cutaneous abscess of left foot L02.612 a nd Cellulitis of left lower limb L03.116 [place] [address] [address] 04 Oct, 2018 Dental examination Z01.20 and Pain, dent al K08.89 [facility] [address] [facility] [id number] [place] [address] Sep, Left foot pain M79.672 and L eft anterior knee pain M25.562 [place] [address] [address] Sep, Type 1 diabetes mellitus with other diab etic neurological complication E10.49 [facility] [address] [address] Sep, [facility] [address] [address] Aug, Type 1 diabetes mellitus with other diab etic neurological complication E10.49 [facility] [address] [address] 10 Aug, 2018 Encounter for immunization Z23 [facility] [address] [address] 05 Aug, 2018 Type 1 diabetes mellitus with hyperglyce uma E10.65 [place] [address] [address] Jul, Type 1 diabetes mellitus with hyperglyce uma E10.65 [facility] [address] [address] Jul, [facility] [address] [address] 18 Jul, 2018 [facility] [address] [address] Jul, Type 1 diabetes mellitus with other diab etic neurological complication E10.49 [place] [address] [address] Jul, Type 1 diabetes mellitus with other diab etic neurological complication E10.49 and Mood disorder F39 [facility] [address] [address] Jun, [facility] [address] [address] Jun, Type 1 diabetes mellitus with other diab etic neurological complication E10.49 and Chronic fatigue R53.82 [facility] [address] [address] May, Type 1 diabetes mellitus with other diab etic neurological complication E10.49 [facility] [address] [place] [id number] [place] [address] May, [facility] [address] [place] [id number] [place] [address] May, [facility] [address] [place] [id number] [place] [address] Apr, [facility] [address] [place] [id number] [place] [address] Apr, Type 1 diabetes mellitus with other diab etic neurological complication E10.49 [facility] [address] [place] [id number] [place] [address] March, [facility] [address] [address] Feb, [facility] [address] [place] [id number] [place] [address] Feb, Type 1 diabetes mellitus with other diab etic neurological complication E10.49 ; Tobacco abuse Z72.0 and Tobacco abuse counseling Z71.6 [place] [address] [place] [id number] [place] [address] Jan, Type 1 diabetes mellitus with hyperglyce uma E10.65 [facility] [address] [place] [id number] [place] [address] Jan, [facility] [address] [address] Dec, Tobacco abuse Z72.0 [facility] [address] [place] [id number] [place] [address] Dec, Type 1 diabetes mellitus with hyperglyce uma E10.65 [facility] [address] [address] Dec, Type 1 diabetes mellitus with hyperglyce uma E10.65 ; Tobacco abuse Z72.0 and Tobacco abuse counseling Z71.6 [place] [address] [address] Nov, Type 1 diabetes mellitus with hyperglyce uma E10.65 [facility] [address] [place] [id number] [place] [address] Oct, Type 1 diabetes mellitus with hyperglyce uma E10.65 [facility] [address] [place] [id number] [place] [address] Oct, Type 1 diabetes mellitus with hyperglyce uma E10.65 [facility] [address] [address] Sep, Type 1 diabetes mellitus with hyperglyce uma E10.65 [facility] [address] [address] Aug, Type 1 diabetes mellitus with hyperglyce uma E10.65 [place] [address] [address] Aug, [place] [address] [address] Aug, Type 1 diabetes mellitus with hyperglyce uma E10.65 [place] [address] [address] Aug, Encounter for immunization Z23 [place] [address] [address] Aug, Type 1 diabetes mellitus with hyperglyce uma E10.65 [place] [address] [address] Jul, Type 1 diabetes mellitus with hyperglyce uma E10.65 [place] [address] [address] Jul, Type 1 diabetes mellitus with hyperglyce uma E10.65 [facility] [address] [address] May, Type 1 diabetes mellitus with hyperglyce uma E10.65 [facility] [address] [place] [id number] [place] [address] May, [facility] [address] [address] Apr, [facility] [address] [place] [id number] [place] [address] Apr, Type 1 diabetes mellitus with hyperglyce uma E10.65 [facility] [address] [place] [id number] [place] [address] March, [facility] [address] [address] March, [facility] [address] [address] Jan, [facility] [address] [address] Jan, [facility] [address] [address] Jan, Type 1 diabetes mellitus with diabetic p olyneuropathy E10.42 [facility] [address] [address] Jan, Type 1 diabetes mellitus with hyperglyce uma E10.65 ; Excessive cerumen in both ear canals H61.23 and Controlled diabetes mellitus type 1 without complications E10.9 [facility] [address] [address] Dec, [facility] [address] [address] Dec, [facility] [address] [address] Dec, [facility] [address] [place] [id number] [place] [address] Dec, [facility] [address] [address] Nov, [facility] [address] [address] Nov, [facility] [address] [address] Oct, Type 1 diabetes mellitus with hyperglyce uma E10.65 [facility] [address] [place] [id number] [place] [address] 17 Sep, 2016 [facility] [address] [address] Sep, [facility] [address] [address] Sep, Controlled diabetes mellitus type 1 with out complications E10.9 [facility] [address] [address] Sep, [facility] [address] [id number] Aug, Dental caries K02.9 [facility] [address] [address] Aug, Type 1 diabetes mellitus with diabetic p olyneuropathy E10.42 [facility] [address] [address] Aug, [facility] [address] [address] Aug, [facility] [address] [address] Aug, [facility] [address] [address] Jul, Type 1 diabetes mellitus with hyperglyce uma E10.65 [facility] [address] [address] Jul, Type 1 diabetes mellitus with hyperglyce uma E10.65 ; Tooth pain K08.8 and Encounter for immunization Z23 [facility] [address] [id number] 08 Jul, 2016 Dental examination Z01.20 [facility] [address] [address] 08 Jul, 2016 [facility] [address] [address] Jul, [facility] [address] [place] [address] [place] [address] Jul, [facility] [address] [id number] [place] [address] Jun, [facility] [address] [id number] [place] [address] May, [facility] [address] [id number] [place] [address] Apr, [facility] [address] [id number] [place] [address] Apr, [facility] [address] [id number] [place] [address] Apr, [facility] [address] [id number] [place] [address] March, [facility] [address] [place] [id number] [place] [address] March, [facility] [address] [place] [id number] [place] [address] Feb, [facility] [address] [id number] [place] [address] Feb, [facility] [address] [id number] [place] [address] Feb, Type 1 diabetes mellitus with hyperglyce uma E10.65 [facility] [address] [id number] [place] [address] Jan, [facility] [address] [id number] [place] [address] Jan, [facility] [address] [id number] [place] [address] Jan, [facility] [address] [id number] [place] [address] Jan, [facility] [address] [id number] [place] [address] Dec, [facility] [address] [place] [id number] [place] [address] Nov, [facility] [address] [address] Nov, [facility] [address] [address] Oct, [facility] [address] [place] [id number] [place] [address] Oct, Type 1 diabetes mellitus with diabetic a utonomic (poly)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 ; Type 1 diabetes mellitus with hyperglycemia E10.65 ; Gastroparesis K31.84 and Esophageal stricture K22.2 [facility] [address] [address] Oct, [facility] [address] [address] Sep, [facility] [address] [address] Sep, Type 1 diabetes mellitus with other diab etic neurological complication E10.49 [facility] [address] [address] Aug, Encounter for immunization Z23 [facility] [address] [address] Aug, [facility] [address] [address] Aug, [facility] [address] [address] Jul, [facility] [address] [address] Jul, [facility] [address] [address] Jun, [facility] [address] [address] Jun, [facility] [address] [address] Jun, [facility] [address] [place] [id number] [place] [address] May, [facility] [address] [address] May, [facility] [address] [address] May, Diabetes type 1, controlled 250.01 [facility] [address] [address] May, [facility] [address] [address] May, [facility] [address] [id number] Apr, Dental examination V72.2 [facility] [address] [address] Apr, [facility] [address] [address] Apr, [facility] [address] [address] Apr, [facility] [address] [address] Apr, [facility] [address] [address] Apr, [facility] [address] [id number] Apr, Dental examination V72.2 [facility] [address] [address] Apr, [facility] [address] [address] Apr, [facility] [address] [address] March, Diabetes mellitus type 1 250.01 [facility] [address] [address] March, [facility] [address] [id number] [place] [address] 14 Feb, 2015 [facility] [address] [id number] [place] [address] Feb, [facility] [address] [id number] [place] [address] Jan, [facility] [address] [id number] [place] [address] Jan, [facility] [address] [id number] [place] [address] Jan, [facility] [address] [id number] [place] [address] Jan, [facility] [address] [id number] [place] [address] Dec, [facility] [address] [id number] [place] [address] Dec, [facility] [address] [id number] [place] [address] Nov, [facility] [address] [id number] [place] [address] Nov, [facility] [address] [id number] [place] [address] Nov, [facility] [address] [id number] [place] [address] Nov, [facility] [address] [id number] [place] [address] Nov, [facility] [address] [id number] [place] [address] Nov, [facility] [address] [id number] [place] [address] Nov, [facility] [address] [id number] [place] [address] Oct, [facility] [address] [id number] [place] [address] Oct, [facility] [address] [facility] [id number] [place] [address] Sep, [facility] [address] [facility] [id number] [place] [address] Aug, [facility] [address] [id number] [place] [address] Aug, [facility] [address] [id number] [place] [address] Aug, [facility] [address] [facility] [id number] [place] [address] Aug, [facility] [address] [id number] [place] [address] Aug, [facility] [address] [id number] [place] [address] Aug, [facility] [address] [id number] [place] [address] Aug, [facility] [address] [id number] [place] [address] Aug, [facility] [address] [id number] [place] [address] Aug, [facility] [address] [id number] [place] [address] Aug, [facility] [address] [id number] [place] [address] Aug, 2013 [facility] [address] [id number] [place] [address] Aug, 2013 [facility] [address] [id number] [place] [address] Aug, 2013 [facility] [address] [id number] [place] [address] Aug, 2013 [facility] [address] [id number] [place] [address] Jul, 2013 [facility] [address] [id number] [facility] [place] [address] 13 Jul, 2013 [facility] [address] [id number] [facility] [place] [address] Jul, [facility] [address] [facility] [id number] [facility] [place] [address] Jul, [facility] [address] [id number] [facility] [place] [address] Jun, [facility] [address] [facility] [id number] [facility] [place] [address] Jun, [facility] [address] [facility] [id number] [facility] [place] [address] Jun, [facility] [address] [id number] [place] [address] Jun, [facility] [address] [id number] [place] [address] May, [facility] [address] [id number] [place] [address] May, [facility] [address] [facility] [id number] [place] [address] May, [facility] [address] [id number] [place] [address] May, [facility] [address] [id number] [place] [address] May, [facility] [address] [id number] [place] [address] May, [facility] [address] [facility] [id number] [place] [address] May, [facility] [address] [id number] [place] [address] May, [facility] [address] [facility] [id number] [place] [address] May, [facility] [address] [id number] [place] [address] May, [facility] [address] [id number] [place] [address] May, [facility] [address] [id number] [place] [address] May, [facility] [address] [id number] [place] [address] May, [facility] [address] [id number] [place] [address] Apr, [facility] [address] [facility] [id number] [place] [address] Apr, [facility] [address] [id number] [place] [address] Apr, [facility] [address] [id number] [place] [address] Apr, [facility] [address] [id number] [place] [address] Apr, [facility] [address] [id number] [place] [address] Apr, [facility] [address] [id number] [place] [address] Apr, [facility] [address] [id number] [place] [address] Apr, [facility] [address] [id number] [place] [address] Apr, [facility] [address] [id number] [place] [address] Apr, [facility] [address] [facility] [id number] [place] [address] Apr, [facility] [address] [id number] [place] [address] Apr, [facility] [address] [id number] [place] [address] Apr, [facility] [address] [id number] [place] [address] Apr, [facility] [address] [id number] [facility] [place] [address] March, [facility] [address] [facility] [id number] [facility] [place] [address] March, [facility] [address] [id number] [place] [address] March, [facility] [address] [id number] [facility] [place] [address] March[facility] [place] [facility] [address] [facility] [id number] [facility] [place] [address] March, [facility] [place] [facility] [address] [id number] [facility] [place] [address] March, [facility] [place] [facility] [address] [id number] [place] [address] March, [facility] [place] [facility] [address] [id number] [facility] [place] [address] March, [facility] [place] [facility] [address] [id number] [facility] [place] [address] March, [facility] [place] [facility] [address] [id number] [facility] [place] [address] March, [facility] [place] [facility] [address] [id number] [place] [address] Feb, [facility] [place] [facility] [address] [id number] [place] [address] Feb, [facility] [place] [facility] [address] [id number] [facility] [place] [address] Feb, [facility] [place] [facility] [address] [id number] [place] [address] Feb, [facility] [place] [facility] [address] [id number] [place] [address] Feb, [facility] [place] [facility] [address] [id number] [facility] [place] [address] Feb, [facility] [place] [facility] [address] [id number] [place] [address] Feb, [facility] [place] [facility] [address] [facility] [id number] [facility] [place] [address] Feb, [facility] [place] [facility] [address] [facility] [id number] [place] [address] Jan, [facility] [place] [facility] [address] [id number] [place] [address] Jan, [facility] [place] [facility] [address] [facility] [id number] [place] [address] Jan, [facility] [place] [facility] [address] [facility] [id number] [place] [address] Jan, [facility] [place] [facility] [address] [id number] [place] [address] Jan, [facility] [place] [facility] [address] [id number] [place] [address] Jan, [facility] [place] [facility] [address] [id number] [place] [address] Jan, [facility] [place] [facility] [address] [id number] [place] [address] Jan, [facility] [place] [facility] [address] [id number] [place] [address] Jan, [facility] [place] [facility] [address] [id number] [place] [address] Jan, [facility] [place] [facility] [address] [id number] [place] [address] Dec, [facility] [place] [facility] [address] [facility] [id number] [place] [address] Dec, [facility] [place] [facility] [address] [id number] [place] [address] Nov, [facility] [place] [facility] [address] [id number] [place] [address] Nov, [facility] [place] [facility] [address] [id number] [place] [address] Nov, [facility] [place] [facility] [address] [id number] [place] [address] 16 Nov, 2013 [facility] [place] [facility] [address] [id number] [place] [address] Nov, [facility] [place] [facility] [address] [id number] [place] [address] Nov, [facility] [place] [facility] [address] [id number] [place] [address] Nov, [facility] [place] [facility] [address] [id number] [place] [address] Nov, [facility] [place] [facility] [address] [id number] [place] [address] Oct, [facility] [place] [facility] [address] [id number] [place] [address] Oct, [facility] [place] [facility] [id number] [place] [address] Oct, [facility] [place] [facility] [address] [id number] [place] [address] Oct, [facility] [place] [facility] [address] [id number] [place] [address] Oct, [facility] [place] [facility] [address] [id number] [place] [address] Oct, [facility] [place] [facility] [address] [id number] [place] [address] Sep, [facility] [place] [facility] [address] [id number] [place] [address] Sep, [facility] [place] [facility] [address] [id number] [place] [address] Sep, [facility] [place] [facility] [id number] [place] [address] Sep, [facility] [place] [facility] [address] [id number] [place] [address] 05 Sep, 2013 [facility] [place] [facility] [address] [id number] [place] [address] Aug, [facility] [place] [facility] [address] [facility] [id number] [place] [address] Aug, [facility] [place] [facility] [address] [facility] [id number] [place] [address] Aug, [facility] [place] [facility] [address] [id number] [place] [address] Aug, [facility] [place] [facility] [address] [id number] [place] [address] Aug, [facility] [place] [facility] [address] [facility] [id number] [place] [address] Aug, [facility] [place] [facility] [address] [id number] [place] [address] Jul, [facility] [place] [facility] [address] [id number] [place] [address] Jul, [facility] [place] [facility] [address] [id number] [place] [address] Jul, [facility] [place] [facility] [address] [id number] [place] [address] Jun, [facility] [place] [facility] [address] [id number] [place] [address] Jun, [facility] [place] [facility] [address] [id number] [place] [address] May, [facility] [place] [facility] [address] [id number] [place] [address] May, [facility] [place] [facility] [address] [id number] [place] [address] Apr, [facility] [place] [facility] [address] [id number] [place] [address] Apr, [facility] [place] [facility] [address] [id number] [place] [address] Apr, [facility] [place] [facility] [address] [id number] [place] [address] March, [facility] [place] [facility] [address] [id number] [place] [address] Feb, [facility] [address] [facility] [id number] [place] [address] Feb, [facility] [address] [id number] [place] [address] 28 Jan, 2013 [facility] [address] [id number] [place] [address] Jan, [facility] [address] [id number] [place] [address] Jan, [facility] [address] [id number] [place] [address] Jan, [facility] [address] [id number] [place] [address] Jan, [facility] [address] [id number] [place] [address] Dec, [facility] [address] [id number] [place] [address] Dec, [facility] [address] [id number] [place] [address] Dec, [facility] [address] [id number] [place] [address] Dec, [facility] [address] [id number] [place] [address] Dec, [facility] [address] [id number] [place] [address] Dec, [facility] [address] [place] [id number] 14 Nov, 2012 [facility] [place] [facility] [address] [id number] [place] [address] Nov, [facility] [place] [facility] [address] [id number] [place] [address] 10 Nov, 2012 [facility] [address] [id number] [place] [address] Nov, [facility] [place] [facility] [address] [id number] [place] [address] Nov, [facility] [place] [facility] [address] [id number] [place] [address] Oct, [facility] [place] [facility] [address] [id number] [place] [address] Oct, [facility] [place] [facility] [address] [id number] [place] [address] Oct, [facility] [place] [facility] [address] [id number] [place] [address] Oct, [facility] [place] [facility] [address] [id number] [place] [address] Oct, [facility] [place] [facility] [address] [id number] [place] [address] Oct, [facility] [place] [facility] [address] [id number] [place] [address] Oct, [facility] [place] [facility] [address] [id number] [place] [address] Oct, [facility] [place] [facility] [address] [id number] [place] [address] Sep, [facility] [place] [facility] [address] [id number] [place] [address] Sep, [facility] [place] [facility] [address] [id number] [place] [address] Sep, [facility] [place] [facility] [address] [id number] [place] [address] Sep, [facility] [place] [facility] [address] [id number] [place] [address] Sep, [facility] [place] [facility] [address] [id number] [place] [address] Sep, [facility] [place] [facility] [address] [id number] [place] [address] Sep, [facility] [place] [facility] [address] [id number] [place] [address] Sep, [facility] [id number] [place] [address] Sep, [facility] [id number] [place] [address] Sep, [facility] [id number] [place] [address] Sep, [facility] [id number] [place] [address] Sep, [facility] [id number] [place] [address] Sep, [facility] [id number] [place] [address] Sep, [facility] [id number] [place] [address] Sep, [facility] [id number] [place] [address] Sep, IMMUNIZATIONS No Known Immunizations SOCIAL HISTORY [...]
--- OUTSIDE RECORDS SUMMARY | 2020-04-17 21:22 | XMS REPORT ---
Author Author Curt Barr Doctor Organization 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 Active 13540612 Problem Other chronic pain G89.29 Active 8 2352995 Problem Hypertension, essential I10 Active 37688555 Problem Vitamin D deficiency E55.9 Active 43322138 Problem Mood disorder F39 Active 348102 05 Problem Type 1 diabetes mellitus with hyperglycemia E10.65 Active [id number] Problem Type 1 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 Active 24914404 Problem Chronic fatigue R53.82 Active 8422 9001 Problem Controlled diabetes mellitus type 1 without complications E10.9 Active [id number] ALLERGIES No Information ENCOUNTERS Encounter Location Date Diagnosis [place] [address] [address] 03 Dec, 2019 Type 1 diabetes mellitus with other diab etic neurological complication E10.49 [place] [address] [address] Nov, Type 1 diabetes mellitus with diabetic p olyneuropathy E10.42 ; Mood disorder F39 ; Vitamin D deficiency E55.9 and Renal insufficiency N28.9 [place] [address] [address] Nov, Type 1 diabetes mellitus with other diab etic neurological complication E10.49 [place] [address] [address] Oct, Other chronic pain G89.29 [place] [address] [address] Oct, Type 1 diabetes mellitus with other diab etic neurological complication E10.49 [facility] [address] [address] Oct, [facility] [address] [address] Aug, Type 1 diabetes mellitus with other diab etic neurological complication E10.49 [facility] [address] [address] 14 Aug, 2019 Encounter for immunization Z23 [facility] [address] [address] 08 Aug, 2019 Vitamin D deficiency E55.9 [facility] [address] [address] Jul, Type 1 diabetes mellitus with other diab etic neurological complication E10.49 [facility] [address] [address] Jul, Type 1 diabetes mellitus with hyperglyce uma E10.65 [facility] [address] [address] Jun, Type 1 diabetes mellitus with other diab etic neurological complication E10.49 [facility] [address] [address] May, [facility] [address] [address] May, [facility] [address] [address] May, Other chronic pain G89.29 [facility] [address] [address] May, [facility] [address] [address] May, Type 1 diabetes mellitus with other diab etic neurological complication E10.49 [facility] [address] [address] Apr, [facility] [address] [id number] [place] [address] Apr, Type 1 diabetes mellitus with other diab etic neurological complication E10.49 [facility] [address] [id number] [place] [address] Apr, Encounter for Medicare annual wellness e xam Z00.00 [place] [address] [id number] [place] [address] March, Encounter for Medicare annual wellness e xam Z00.00 and Type 1 diabetes mellitus with other diabetic neurological complication E10.49 [place] [address] [place] [id number] [place] [address] Feb, Type 1 diabetes mellitus with other diab etic neurological complication E10.49 [place] [address] [id number] [place] [address] Feb, Encounter for Medicare annual wellness e xam Z00.00 ; Mood disorder F39 ; Type 1 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 ; Hypertension, essential I10 and Chronic fatigue R53.82 [place] [address] [place] [id number] [place] [address] Jan, Type 1 diabetes mellitus with other diab etic neurological complication E10.49 [place] [address] [id number] [place] [address] Jan, [place] [address] [id number] [place] [address] Jan, Other chronic pain G89.29 [place] [address] [place] [id number] [place] [address] Dec, [facility] [address] [id number] [place] [address] Dec, Type 1 diabetes mellitus with other diab etic neurological complication E10.49 [facility] [address] [id number] [place] [address] Dec, Other chronic pain G89.29 [place] [address] [place] [id number] [place] [address] Nov, [facility] [address] [id number] Nov, Caries K02.9 [place] [address] [address] Nov, Type 1 diabetes mellitus with other diab etic neurological complication E10.49 [place] [address] [address] Nov, Controlled diabetes mellitus type 1 with out complications E10.9 ; Other chronic pain G89.29 and Pain in left knee M25.562 [facility] [address] [id number] Oct, Dental examination Z01.20 [place] [address] [address] 14 Oct, 2018 Cutaneous abscess of unspecified foot L0 2.619 and Cellulitis of unspecified part of limb L03.119 [place] [address] [address] Oct, [place] [address] [address] 10 Oct, 2018 Type 1 diabetes mellitus with other diab etic neurological complication E10.49 [facility] [address] [id number] Oct, Dental examination Z01.20 and Caries K02 .[address] [address] 04 Oct, 2018 Cutaneous abscess of left foot L02.612 a nd Cellulitis of left lower limb L03.116 [place] [address] [address] 04 Oct, 2018 Dental examination Z01.20 and Pain, dent al K08.89 [facility] [address] [facility] [id number] [address] [place] [address] Sep, Left foot pain M79.672 and L eft anterior knee pain M25.562 [place] [address] [address] Sep, Type 1 diabetes mellitus with other diab etic neurological complication E10.49 [facility] [address] [address] Sep, [facility] [address] [address] Aug, Type 1 diabetes mellitus with other diab etic neurological complication E10.49 [facility] [address] [address] 10 Aug, 2018 Encounter for immunization Z23 [facility] [address] [address] 05 Aug, 2018 Type 1 diabetes mellitus with hyperglyce uma E10.65 [place] [address] [address] Jul, Type 1 diabetes mellitus with hyperglyce uma E10.65 [facility] [address] [address] Jul, [facility] [address] [address] 18 Jul, 2018 [facility] [address] [address] Jul, Type 1 diabetes mellitus with other diab etic neurological complication E10.49 [place] [address] [address] Jul, Type 1 diabetes mellitus with other diab etic neurological complication E10.49 and Mood disorder F39 [facility] [address] [address] Jun, [facility] [address] [address] Jun, Type 1 diabetes mellitus with other diab etic neurological complication E10.49 and Chronic fatigue R53.82 [facility] [address] [address] May, Type 1 diabetes mellitus with other diab etic neurological complication E10.49 [facility] [address] [place] [id number] [place] [address] May, [facility] [address] [place] [id number] [place] [address] May, [facility] [address] [place] [id number] [place] [address] Apr, [facility] [address] [place] [id number] [place] [address] Apr, Type 1 diabetes mellitus with other diab etic neurological complication E10.49 [facility] [address] [place] [id number] [place] [address] March, [facility] [address] [address] Feb, [facility] [address] [place] [id number] [place] [address] Feb, Type 1 diabetes mellitus with other diab etic neurological complication E10.49 ; Tobacco abuse Z72.0 and Tobacco abuse counseling Z71.6 [place] [address] [place] [id number] [place] [address] Jan, Type 1 diabetes mellitus with hyperglyce uma E10.65 [facility] [address] [place] [id number] [place] [address] Jan, [facility] [address] [address] Dec, Tobacco abuse Z72.0 [facility] [address] [place] [id number] [place] [address] Dec, Type 1 diabetes mellitus with hyperglyce uma E10.65 [facility] [address] [address] Dec, Type 1 diabetes mellitus with hyperglyce uma E10.65 ; Tobacco abuse Z72.0 and Tobacco abuse counseling Z71.6 [place] [address] [address] Nov, Type 1 diabetes mellitus with hyperglyce uma E10.65 [facility] [address] [place] [id number] [place] [address] Oct, Type 1 diabetes mellitus with hyperglyce uma E10.65 [facility] [address] [place] [id number] [place] [address] Oct, Type 1 diabetes mellitus with hyperglyce uma E10.65 [facility] [address] [address] Sep, Type 1 diabetes mellitus with hyperglyce uma E10.65 [facility] [address] [address] Aug, Type 1 diabetes mellitus with hyperglyce uma E10.65 [place] [address] [address] Aug, [place] [address] [address] Aug, Type 1 diabetes mellitus with hyperglyce uma E10.65 [place] [address] [address] Aug, Encounter for immunization Z23 [place] [address] [address] Aug, Type 1 diabetes mellitus with hyperglyce uma E10.65 [place] [address] [address] Jul, Type 1 diabetes mellitus with hyperglyce uma E10.65 [place] [address] [address] Jul, Type 1 diabetes mellitus with hyperglyce uma E10.65 [facility] [address] [address] May, Type 1 diabetes mellitus with hyperglyce uma E10.65 [facility] [address] [place] [id number] [place] [address] May, [facility] [address] [address] Apr, [facility] [address] [place] [id number] [place] [address] Apr, Type 1 diabetes mellitus with hyperglyce uma E10.65 [facility] [address] [place] [id number] [place] [address] March, [facility] [address] [address] March, [facility] [address] [address] Jan, [facility] [address] [address] Jan, [facility] [address] [address] Jan, Type 1 diabetes mellitus with diabetic p olyneuropathy E10.42 [facility] [address] [address] Jan, Type 1 diabetes mellitus with hyperglyce uma E10.65 ; Excessive cerumen in both ear canals H61.23 and Controlled diabetes mellitus type 1 without complications E10.9 [facility] [address] [address] Dec, [facility] [address] [address] Dec, [facility] [address] [address] Dec, [facility] [address] [place] [id number] [place] [address] Dec, [facility] [address] [address] Nov, [facility] [address] [address] Nov, [facility] [address] [address] Oct, Type 1 diabetes mellitus with hyperglyce uma E10.65 [facility] [address] [place] [id number] [place] [address] 17 Sep, 2016 [facility] [address] [address] Sep, [facility] [address] [address] Sep, Controlled diabetes mellitus type 1 with out complications E10.9 [facility] [address] [address] Sep, [facility] [address] [id number] Aug, Dental caries K02.9 [facility] [address] [address] Aug, Type 1 diabetes mellitus with diabetic p olyneuropathy E10.42 [facility] [address] [address] Aug, [facility] [address] [address] Aug, [facility] [address] [address] Aug, [facility] [address] [address] Jul, Type 1 diabetes mellitus with hyperglyce uma E10.65 [facility] [address] [address] Jul, Type 1 diabetes mellitus with hyperglyce uma E10.65 ; Tooth pain K08.8 and Encounter for immunization Z23 [facility] [address] [id number] 08 Jul, 2016 Dental examination Z01.20 [facility] [address] [address] 08 Jul, 2016 [facility] [address] [address] Jul, [facility] [address] [place] [address] [place] [address] Jul, [facility] [address] [id number] [place] [address] Jun, [facility] [address] [id number] [place] [address] May, [facility] [address] [id number] [place] [address] Apr, [facility] [address] [id number] [place] [address] Apr, [facility] [address] [id number] [place] [address] Apr, [facility] [address] [id number] [place] [address] March, [facility] [address] [place] [id number] [place] [address] March, [facility] [address] [place] [id number] [place] [address] Feb, [facility] [address] [id number] [place] [address] Feb, [facility] [address] [id number] [place] [address] Feb, Type 1 diabetes mellitus with hyperglyce uma E10.65 [facility] [address] [id number] [place] [address] Jan, [facility] [address] [id number] [place] [address] Jan, [facility] [address] [id number] [place] [address] Jan, [facility] [address] [id number] [place] [address] Jan, [facility] [address] [id number] [place] [address] Dec, [facility] [address] [place] [id number] [place] [address] Nov, [facility] [address] [address] Nov, [facility] [address] [address] Oct, [facility] [address] [place] [id number] [place] [address] Oct, Type 1 diabetes mellitus with diabetic a utonomic (poly)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 ; Type 1 diabetes mellitus with hyperglycemia E10.65 ; Gastroparesis K31.84 and Esophageal stricture K22.2 [facility] [address] [address] Oct, [facility] [address] [address] Sep, [facility] [address] [address] Sep, Type 1 diabetes mellitus with other diab etic neurological complication E10.49 [facility] [address] [address] Aug, Encounter for immunization Z23 [facility] [address] [address] Aug, [facility] [address] [address] Aug, [facility] [address] [address] Jul, [facility] [address] [address] Jul, [facility] [address] [address] Jun, [facility] [address] [address] Jun, [facility] [address] [address] Jun, [facility] [address] [place] [id number] [place] [address] May, [facility] [address] [address] May, [facility] [address] [address] May, Diabetes type 1, controlled 250.01 [facility] [address] [address] May, [facility] [address] [address] May, [facility] [address] [id number] Apr, Dental examination V72.2 [facility] [address] [address] Apr, [facility] [address] [address] Apr, [facility] [address] [address] Apr, [facility] [address] [address] Apr, [facility] [address] [address] Apr, [facility] [address] [id number] Apr, Dental examination V72.2 [facility] [address] [address] Apr, [facility] [address] [address] Apr, [facility] [address] [address] March, Diabetes mellitus type 1 250.01 [facility] [address] [address] March, [facility] [address] [id number] [place] [address] 14 Feb, 2015 [facility] [address] [id number] [place] [address] Feb, [facility] [address] [id number] [place] [address] Jan, [facility] [address] [id number] [place] [address] Jan, [facility] [address] [id number] [place] [address] Jan, [facility] [address] [id number] [place] [address] Jan, [facility] [address] [id number] [place] [address] Dec, [facility] [address] [id number] [place] [address] Dec, [facility] [address] [id number] [place] [address] Nov, [facility] [address] [id number] [place] [address] Nov, [facility] [address] [id number] [place] [address] Nov, [facility] [address] [id number] [place] [address] Nov, [facility] [address] [id number] [place] [address] Nov, [facility] [address] [id number] [place] [address] Nov, [facility] [address] [id number] [place] [address] Nov, [facility] [address] [id number] [place] [address] Oct, [facility] [address] [id number] [place] [address] Oct, [facility] [address] [facility] [id number] [place] [address] Sep, [facility] [address] [facility] [id number] [place] [address] Aug, [facility] [address] [id number] [place] [address] Aug, [facility] [address] [id number] [place] [address] Aug, [facility] [address] [facility] [id number] [place] [address] Aug, [facility] [address] [id number] [place] [address] Aug, [facility] [address] [id number] [place] [address] Aug, [facility] [address] [id number] [place] [address] Aug, [facility] [address] [id number] [place] [address] Aug, [facility] [address] [id number] [place] [address] Aug, [facility] [address] [id number] [place] [address] Aug, [facility] [address] [id number] [place] [address] Aug, 2013 [facility] [address] [id number] [place] [address] Aug, 2013 [facility] [address] [id number] [place] [address] Aug, 2013 [facility] [address] [id number] [place] [address] Aug, 2013 [facility] [address] [id number] [place] [address] Jul, 2013 [facility] [address] [id number] [place] [address] 13 Jul, 2013 [facility] [address] [id number] [place] [address] Jul, [facility] [address] [facility] [id number] [place] [address] Jul, [facility] [address] [id number] [place] [address] Jun, [facility] [address] [facility] [id number] [place] [address] Jun, [facility] [address] [facility] [id number] [place] [address] Jun, [facility] [address] [id number] [place] [address] Jun, [facility] [address] [id number] [place] [address] May, [facility] [address] [facility] [id number] [place] [address] May, [facility] [place] [facility] [address] [facility] [id number] [place] [address] May, [facility] [place] [facility] [address] [id number] [place] [address] May, [facility] [place] [facility] [address] [id number] [place] [address] May, [facility] [place] [facility] [address] [id number] [place] [address] May, [facility] [place] [facility] [address] [facility] [id number] [place] [address] May, [facility] [place] [facility] [address] [id number] [place] [address] May, [facility] [place] [facility] [address] [facility] [id number] [place] [address] May, [facility] [place] [facility] [address] [id number] [place] [address] May, [facility] [place] [facility] [address] [id number] [place] [address] May, [facility] [place] [facility] [address] [id number] [place] [address] May, [facility] [place] [facility] [address] [id number] [place] [address] May, [facility] [place] [facility] [address] [id number] [place] [address] Apr, [facility] [place] [facility] [address] [facility] [id number] [place] [address] Apr, [facility] [place] [facility] [address] [id number] [place] [address] Apr, [facility] [place] [facility] [address] [id number] [place] [address] Apr, [facility] [place] [facility] [address] [id number] [place] [address] Apr, [facility] [place] [facility] [address] [id number] [place] [address] Apr, [facility] [place] [facility] [address] [id number] [place] [address] Apr, [facility] [place] [facility] [address] [id number] [place] [address] Apr, [facility] [place] [facility] [address] [id number] [place] [address] Apr, [facility] [place] [facility] [address] [id number] [place] [address] Apr, [facility] [place] [facility] [address] [facility] [id number] [place] [address] Apr, [facility] [place] [facility] [address] [id number] [place] [address] Apr, [facility] [place] [facility] [address] [id number] [place] [address] Apr, [facility] [place] [facility] [address] [id number] [place] [address] Apr, [facility] [place] [facility] [address] [id number] [place] [address] March, [facility] [place] [facility] [address] [facility] [id number] [place] [address] March, [facility] [place] [facility] [address] [id number] [place] [address] March, [facility] [place] [facility] [address] [id number] [place] [address] March, [facility] [place] [facility] [address] [facility] [id number] [place] [address] March, [facility] [place] [facility] [address] [id number] [place] [address] March, [facility] [place] [facility] [address] [id number] [place] [address] March, [facility] [place] [facility] [address] [id number] [place] [address] March, [facility] [place] [facility] [address] [id number] [place] [address] March, [facility] [place] [facility] [address] [id number] [place] [address] March, [facility] [place] [facility] [address] [id number] [place] [address] Feb, [facility] [place] [facility] [address] [id number] [place] [address] Feb, [facility] [place] [facility] [address] [id number] [place] [address] Feb, [facility] [place] [facility] [address] [id number] [place] [address] Feb, [facility] [place] [facility] [address] [id number] [place] [address] Feb, [facility] [place] [facility] [address] [id number] [place] [address] Feb, [facility] [place] [facility] [address] [id number] [place] [address] Feb, [facility] [place] [facility] [address] [facility] [id number] [place] [address] Feb, [facility] [place] [facility] [address] [facility] [id number] [place] [address] Jan, [facility] [place] [facility] [address] [id number] [place] [address] Jan, [facility] [place] [facility] [address] [facility] [id number] [place] [address] Jan, [facility] [place] [facility] [address] [facility] [id number] [place] [address] Jan, [facility] [place] [facility] [address] [id number] [place] [address] Jan, [facility] [place] [facility] [address] [id number] [place] [address] Jan, [facility] [place] [facility] [address] [id number] [place] [address] Jan, [facility] [place] [facility] [address] [id number] [place] [address] Jan, [facility] [place] [facility] [address] [id number] [place] [address] Jan, [facility] [place] [facility] [address] [id number] [place] [address] Jan, [facility] [place] [facility] [address] [id number] [place] [address] Dec, [facility] [place] [facility] [address] [facility] [id number] [place] [address] Dec, [facility] [place] [facility] [address] [id number] [place] [address] Nov, [facility] [place] [facility] [address] [id number] [place] [address] Nov, [facility] [place] [facility] [address] [id number] [place] [address] Nov, [facility] [place] [facility] [address] [id number] [place] [address] 16 Nov, 2013 [facility] [place] [facility] [address] [id number] [place] [address] Nov, [facility] [place] [facility] [address] [id number] [place] [address] Nov, [facility] [place] [facility] [address] [id number] [place] [address] Nov, [facility] [place] [facility] [address] [id number] [place] [address] Nov, [facility] [place] [facility] [address] [id number] [place] [address] Oct, [facility] [place] [facility] [address] [id number] [place] [address] Oct, [facility] [place] [facility] [id number] [place] [address] Oct, [facility] [place] [facility] [address] [id number] [place] [address] Oct, [facility] [place] [facility] [address] [id number] [place] [address] Oct, [facility] [place] [facility] [address] [id number] [place] [address] Oct, [facility] [place] [facility] [address] [id number] [place] [address] Sep, [facility] [place] [facility] [address] [id number] [place] [address] Sep, [facility] [place] [facility] [address] [id number] [place] [address] Sep, [facility] [place] [facility] [id number] [place] [address] Sep, [facility] [place] [facility] [address] [id number] [place] [address] 05 Sep, 2013 [facility] [place] [facility] [address] [id number] [place] [address] Aug, [facility] [place] [facility] [address] [facility] [id number] [place] [address] Aug, [facility] [place] [facility] [address] [facility] [id number] [place] [address] Aug, [facility] [place] [facility] [address] [id number] [place] [address] Aug, [facility] [place] [facility] [address] [id number] [place] [address] Aug, [facility] [place] [facility] [address] [facility] [id number] [place] [address] Aug, [facility] [place] [facility] [address] [id number] [place] [address] Jul, [facility] [place] [facility] [address] [id number] [place] [address] Jul, [facility] [place] [facility] [address] [id number] [place] [address] Jul, [facility] [place] [facility] [address] [id number] [place] [address] Jun, [facility] [place] [facility] [address] [id number] [place] [address] Jun, [facility] [place] [facility] [address] [id number] [place] [address] May, [facility] [place] [facility] [address] [id number] [place] [address] May, [facility] [place] [facility] [address] [id number] [place] [address] Apr, [facility] [place] [facility] [address] [id number] [place] [address] Apr, [facility] [place] [facility] [address] [id number] [place] [address] Apr, [facility] [place] [facility] [address] [id number] [place] [address] March, [facility] [place] [facility] [address] [id number] [place] [address] Feb, [facility] [address] [facility] [id number] [place] [address] Feb, [facility] [address] [id number] [place] [address] 28 Jan, 2013 [facility] [address] [id number] [place] [address] Jan, [facility] [address] [id number] [place] [address] Jan, [facility] [address] [id number] [place] [address] Jan, [facility] [address] [id number] [place] [address] Jan, [facility] [address] [id number] [place] [address] Dec, [facility] [address] [id number] [place] [address] Dec, [facility] [address] [id number] [place] [address] Dec, [facility] [address] [id number] [place] [address] Dec, [facility] [address] [id number] [place] [address] Dec, [facility] [address] [id number] [place] [address] Dec, [facility] [place] [facility] [address] [place] [address] 14 Nov, 2012 [facility] [place] [facility] [address] [id number] [place] [address] Nov, [facility] [place] [facility] [address] [id number] [place] [address] 10 Nov, 2012 [facility] [address] [id number] [place] [address] Nov, [facility] [place] [facility] [address] [id number] [place] [address] Nov, [facility] [place] [facility] [address] [id number] [place] [address] Oct, [facility] [place] [facility] [address] [id number] [place] [address] Oct, [facility] [place] [facility] [address] [id number] [place] [address] Oct, [facility] [place] [facility] [address] [id number] [place] [address] Oct, [facility] [place] [facility] [address] [id number] [place] [address] Oct, [facility] [place] [facility] [address] [id number] [place] [address] Oct, [facility] [place] [facility] [address] [id number] [place] [address] Oct, [facility] [place] [facility] [address] [id number] [place] [address] Oct, [facility] [place] [facility] [address] [id number] [place] [address] Sep, [facility] [place] [facility] [address] [id number] [place] [address] Sep, [facility] [place] [facility] [address] [id number] [place] [address] Sep, [facility] [place] [facility] [address] [id number] [place] [address] Sep, [facility] [place] [facility] [address] [id number] [place] [address] Sep, [facility] [place] [facility] [address] [id number] [place] [address] Sep, [facility] [place] [facility] [address] [id number] [place] [address] Sep, [facility] [place] [facility] [address] [id number] [place] [address] Sep, [facility] [id number] [place] [address] Sep, [facility] [id number] [place] [address] Sep, [facility] [id number] [place] [address] Sep, [facility] [id number] [place] [address] Sep, [facility] [id number] [place] [address] Sep, [facility] [id number] [place] [address] Sep, [facility] [id number] [place] [address] Sep, [facility] [id number] [place] [address] Sep, IMMUNIZATIONS No Known Immunizations SOCIAL HISTORY [...]
--- OUTSIDE RECORDS SUMMARY | 2020-04-17 21:23 | XMS REPORT ---
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 Active 79283959 Problem Other chronic pain G89.29 Active 8 2887143 Problem Hypertension, essential I10 Active 99591523 Problem Vitamin D deficiency E55.9 Active 82243275 Problem Mood disorder F39 Active 513997 05 Problem Type 1 diabetes mellitus with hyperglycemia E10.65 Active [id number] Problem Type 1 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 Active 01524193 Problem Chronic fatigue R53.82 Active 8422 9001 Problem Controlled diabetes mellitus type 1 without complications E10.9 Active 09645702 ALLERGIES No Information ENCOUNTERS Encounter Location Date Diagnosis [place] [address] [address] Dec, Type 1 diabetes mellitus with other diab etic neurological complication E10.49 [place] [id number] [address] Nov, Type 1 diabetes mellitus with diabetic p olyneuropathy E10.42 ; Mood disorder F39 ; Vitamin D deficiency E55.9 and Renal insufficiency N28.9 [place] [address] [address] Nov, Type 1 diabetes mellitus with other diab etic neurological complication E10.49 [place] [address] [address] Oct, Other chronic pain G89.29 [place] [address] [address] Oct, Type 1 diabetes mellitus with other diab etic neurological complication E10.49 [facility] [address] [place] [id number] [place] [address] Oct, [facility] [address] [address] Aug, Type 1 diabetes mellitus with other diab etic neurological complication E10.49 [facility] [address] [address] 14 Aug, 2019 Encounter for immunization Z23 [facility] [address] [address] Aug, Vitamin D deficiency E55.9 [facility] [address] [address] Jul, Type 1 diabetes mellitus with other diab etic neurological complication E10.49 [facility] [address] [address] Jul, Type 1 diabetes mellitus with hyperglyce uma E10.65 [facility] [address] [address] Jun, Type 1 diabetes mellitus with other diab etic neurological complication E10.49 [facility] [address] [address] May, [facility] [address] [address] May, [facility] [address] [address] May, Other chronic pain G89.29 [facility] [address] [address] May, [facility] [address] [address] May, Type 1 diabetes mellitus with other diab etic neurological complication E10.49 [facility] [address] [place] [address] Apr, [facility] [address] [id number] [place] [address] Apr, Type 1 diabetes mellitus with other diab etic neurological complication E10.49 [facility] [address] [id number] [place] [address] Apr, Encounter for Medicare annual wellness e xam Z00.00 [place] [address] [place] [id number] [place] [address] March, Encounter for Medicare annual wellness e xam Z00.00 and Type 1 diabetes mellitus with other diabetic neurological complication E10.49 [place] [address] [place] [id number] [place] [address] Feb, Type 1 diabetes mellitus with other diab etic neurological complication E10.49 [place] [address] [place] [id number] [place] [address] Feb, Encounter for Medicare annual wellness e xam Z00.00 ; Mood disorder F39 ; Type 1 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 ; Hypertension, essential I10 and Chronic fatigue R53.82 [place] [address] [place] [id number] [place] [address] Jan, Type 1 diabetes mellitus with other diab etic neurological complication E10.49 [place] [address] [place] [id number] [place] [address] Jan, [facility] [address] [place] [id number] [place] [address] Jan, Other chronic pain G89.29 [facility] [address] [place] [id number] [place] [address] Dec, [facility] [address] [place] [id number] [place] [address] Dec, Type 1 diabetes mellitus with other diab etic neurological complication E10.49 [place] [address] [id number] [place] [address] 05 Dec, 2018 Other chronic pain G89.29 [facility] [address] [address] Nov, [facility] [address] [id number] Nov, Caries K02.9 [place] [address] [address] Nov, Type 1 diabetes mellitus with other diab etic neurological complication E10.49 [place] [address] [address] Nov, Controlled diabetes mellitus type 1 with out complications E10.9 ; Other chronic pain G89.29 and Pain in left knee M25.562 [facility] [address] [id number] Oct, Dental examination Z01.20 [place] [address] [address] 14 Oct, 2018 Cutaneous abscess of unspecified foot L0 2.619 and Cellulitis of unspecified part of limb L03.119 [place] [address] [address] Oct, [place] [address] [address] 10 Oct, 2018 Type 1 diabetes mellitus with other diab etic neurological complication E10.49 [facility] [address] [id number] Oct, Dental examination Z01.20 and Caries K02 .9 [place] [address] [address] 04 Oct, 2018 Cutaneous abscess of left foot L02.612 a nd Cellulitis of left lower limb L03.[address] [address] Oct, Dental examination Z01.20 and Pain, dent al K08.89 [facility] [address] [facility] [id number] [address] [place] [address] Sep, Left foot pain M79.672 and L eft anterior knee pain M25.562 [facility] [address] [address] Sep, Type 1 diabetes mellitus with other diab etic neurological complication E10.49 [facility] [address] [address] Sep, [facility] [address] [address] Aug, Type 1 diabetes mellitus with other diab etic neurological complication E10.49 [place] [address] [address] 10 Aug, 2018 Encounter for immunization Z23 [place] [address] [address] 05 Aug, 2018 Type 1 diabetes mellitus with hyperglyce uma E10.65 [place] [address] [address] Jul, Type 1 diabetes mellitus with hyperglyce uma E10.65 [facility] [address] [address] 19 Jul, 2018 [facility] [address] [address] 18 Jul, 2018 [facility] [address] [address] 17 Jul, 2018 Type 1 diabetes mellitus with other diab etic neurological complication E10.49 [facility] [address] [address] 17 Jul, 2018 Type 1 diabetes mellitus with other diab etic neurological complication E10.49 and Mood disorder F39 [facility] [address] [address] Jun, [facility] [address] [address] Jun, Type 1 diabetes mellitus with other diab etic neurological complication E10.49 and Chronic fatigue R53.82 [place] [address] [place] [address] May, Type 1 diabetes mellitus with other diab etic neurological complication E10.49 [facility] [address] [id number] [place] [address] May, [facility] [address] [id number] [place] [address] May, [facility] [address] [place] [id number] [place] [address] Apr, [facility] [address] [place] [id number] [place] [address] Apr, Type 1 diabetes mellitus with other diab etic neurological complication E10.49 [facility] [address] [place] [id number] [place] [address] March, [facility] [address] [place] [id number] [place] [address] Feb, [facility] [address] [place] [id number] [place] [address] Feb, Type 1 diabetes mellitus with other diab etic neurological complication E10.49 ; Tobacco abuse Z72.0 and Tobacco abuse counseling Z71.6 [facility] [address] [place] [id number] [place] [address] Jan, Type 1 diabetes mellitus with hyperglyce uma E10.65 [facility] [address] [place] [id number] [place] [address] Jan, [facility] [address] [place] [id number] [place] [address] Dec, Tobacco abuse Z72.0 [facility] [address] [place] [id number] [place] [address] Dec, Type 1 diabetes mellitus with hyperglyce uma E10.65 [facility] [address] [place] [id number] [place] [address] Dec, Type 1 diabetes mellitus with hyperglyce uma E10.65 ; Tobacco abuse Z72.0 and Tobacco abuse counseling Z71.6 [facility] [address] [place] [id number] [place] [address] Nov, Type 1 diabetes mellitus with hyperglyce uma E10.65 [facility] [address] [place] [id number] [place] [address] Oct, Type 1 diabetes mellitus with hyperglyce uma E10.65 [facility] [address] [place] [id number] [place] [address] Oct, Type 1 diabetes mellitus with hyperglyce uma E10.65 [facility] [address] [place] [id number] [place] [address] Sep, Type 1 diabetes mellitus with hyperglyce uma E10.65 [place] [address] [place] [id number] [place] [address] Aug, Type 1 diabetes mellitus with hyperglyce uma E10.65 [place] [address] [address] Aug, [facility] [address] [address] Aug, Type 1 diabetes mellitus with hyperglyce uma E10.65 [place] [address] [place] [id number] [place] [address] Aug, Encounter for immunization Z23 [facility] [address] [place] [id number] [place] [address] Aug, Type 1 diabetes mellitus with hyperglyce uma E10.65 [facility] [address] [place] [id number] [place] [address] Jul, Type 1 diabetes mellitus with hyperglyce uma E10.65 [facility] [address] [place] [id number] [place] [address] Jul, Type 1 diabetes mellitus with hyperglyce uma E10.65 [facility] [address] [place] [id number] [place] [address] May, Type 1 diabetes mellitus with hyperglyce uma E10.65 [facility] [address] [place] [id number] [place] [address] May, [place] [address] [place] [id number] [place] [address] Apr, [facility] [address] [address] Apr, Type 1 diabetes mellitus with hyperglyce uma E10.65 [facility] [address] [address] March, [facility] [address] [address] March, [facility] [address] [address] Jan, [facility] [address] [address] Jan, [facility] [address] [address] Jan, Type 1 diabetes mellitus with diabetic p olyneuropathy E10.42 [facility] [address] [address] Jan, Type 1 diabetes mellitus with hyperglyce uma E10.65 ; Excessive cerumen in both ear canals H61.23 and Controlled diabetes mellitus type 1 without complications E10.9 [facility] [address] [address] Dec, [facility] [address] [address] Dec, [facility] [address] [address] Dec, [facility] [address] [address] Dec, [facility] [address] [address] Nov, [facility] [address] [address] Nov, [facility] [address] [address] Oct, Type 1 diabetes mellitus with hyperglyce uma E10.65 [facility] [address] [address] Sep, [facility] [address] [address] Sep, [facility] [address] [address] Sep, Controlled diabetes mellitus type 1 with out complications E10.9 [facility] [address] [address] Sep, [facility] [address] [id number] Aug, Dental caries K02.9 [facility] [address] [address] Aug, Type 1 diabetes mellitus with diabetic p olyneuropathy E10.42 [facility] [address] [address] Aug, [facility] [address] [address] Aug, [facility] [address] [address] Aug, [facility] [address] [address] Jul, Type 1 diabetes mellitus with hyperglyce uma E10.65 [facility] [address] [address] Jul, Type 1 diabetes mellitus with hyperglyce uma E10.65 ; Tooth pain K08.8 and Encounter for immunization Z23 [facility] [address] [id number] 08 Jul, 2016 Dental examination Z01.20 [facility] [address] [address] 08 Jul, 2016 [facility] [address] [address] Jul, [facility] [address] [id number] [place] [address] Jul, [facility] [address] [id number] [place] [address] Jun, [facility] [address] [id number] [place] [address] May, [facility] [address] [id number] [place] [address] Apr, [facility] [address] [id number] [place] [address] Apr, [facility] [address] [id number] [place] [address] Apr, [facility] [address] [id number] [place] [address] March, [facility] [address] [place] [id number] [place] [address] March, [facility] [address] [id number] [place] [address] Feb, [facility] [address] [id number] [place] [address] Feb, [facility] [address] [id number] [place] [address] Feb, Type 1 diabetes mellitus with hyperglyce uma E10.65 [facility] [address] [id number] [place] [address] Jan, [facility] [address] [id number] [place] [address] Jan, [facility] [address] [place] [id number] [place] [address] Jan, [facility] [address] [id number] [place] [address] Jan, [facility] [address] [place] [id number] [place] [address] Dec, [facility] [address] [address] Nov, [facility] [address] [address] Nov, [facility] [address] [address] Oct, [facility] [address] [address] Oct, Type 1 diabetes mellitus with diabetic a utonomic (poly)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 ; Type 1 diabetes mellitus with hyperglycemia E10.65 ; Gastroparesis K31.84 and Esophageal stricture K22.2 [facility] [address] [address] Oct, [facility] [address] [address] Sep, [facility] [address] [address] Sep, Type 1 diabetes mellitus with other diab etic neurological complication E10.49 [facility] [address] [address] Aug, Encounter for immunization Z23 [facility] [address] [address] Aug, [facility] [address] [address] Aug, [facility] [address] [address] Jul, [facility] [address] [address] Jul, [facility] [address] [address] Jun, [facility] [address] [address] Jun, [facility] [address] [address] Jun, [facility] [address] [place] [id number] [place] [address] May, [facility] [address] [address] May, [facility] [address] [address] May, Diabetes type 1, controlled 250.01 [facility] [address] [address] May, [facility] [address] [address] May, [facility] [address] [id number] Apr, Dental examination V72.2 [facility] [address] [address] Apr, [facility] [address] [address] Apr, [facility] [address] [address] Apr, [facility] [address] [address] Apr, [facility] [address] [address] Apr, [facility] [address] [id number] Apr, Dental examination V72.2 [facility] [address] [address] Apr, [facility] [address] [address] Apr, [facility] [address] [address] March, Diabetes mellitus type 1 250.01 [facility] [address] [place] [address] March, [facility] [place] [facility] [address] [facility] [id number] [place] [address] Feb, [facility] [place] [facility] [address] [id number] [place] [address] Feb, [facility] [place] [facility] [address] [id number] [place] [address] Jan, [facility] [place] [facility] [address] [id number] [place] [address] Jan, [facility] [place] [facility] [address] [id number] [place] [address] Jan, [facility] [place] [facility] [address] [id number] [place] [address] Jan, [facility] [place] [facility] [address] [id number] [place] [address] Dec, [facility] [place] [facility] [address] [id number] [place] [address] Dec, [facility] [place] [facility] [address] [id number] [place] [address] Nov, [facility] [place] [facility] [address] [id number] [place] [address] Nov, [facility] [place] [facility] [address] [id number] [place] [address] Nov, [facility] [place] [facility] [address] [id number] [place] [address] Nov, [facility] [place] [facility] [address] [id number] [place] [address] Nov, [facility] [place] [facility] [address] [id number] [place] [address] Nov, [facility] [place] [facility] [address] [id number] [place] [address] Nov, [facility] [place] [facility] [address] [id number] [place] [address] Oct, [facility] [place] [facility] [address] [id number] [place] [address] Oct, [facility] [place] [facility] [address] [id number] [place] [address] Sep, [facility] [place] [facility] [address] [id number] [place] [address] Aug, [facility] [place] [facility] [address] [id number] [place] [address] Aug, [facility] [place] [facility] [address] [id number] [place] [address] Aug, [facility] [place] [facility] [address] [id number] [place] [address] Aug, [facility] [place] [facility] [address] [id number] [place] [address] Aug, [facility] [place] [facility] [address] [id number] [place] [address] Aug, [facility] [place] [facility] [address] [id number] [place] [address] Aug, [facility] [place] [facility] [address] [id number] [place] [address] Aug, [facility] [place] [facility] [address] [id number] [place] [address] Aug, [facility] [place] [facility] [address] [id number] [place] [address] Aug, [facility] [place] [facility] [address] [id number] [place] [address] Aug, [facility] [place] [facility] [address] [id number] [place] [address] Aug, [facility] [place] [facility] [address] [id number] [place] [address] Aug, [facility] [place] [facility] [address] [id number] [place] [address] Aug, [facility] [place] [facility] [address] [id number] [place] [address] Jul, 2013 [facility] [place] [facility] [address] [id number] [facility] [address] Jul, [facility] [place] [facility] [address] [facility] [id number] [facility] [place] [address] Jul, [facility] [place] [facility] [address] [facility] [id number] [facility] [place] [address] Jul, [facility] [place] [facility] [address] [id number] [facility] [address] Jun, [facility] [place] [facility] [address] [facility] [id number] [place] [address] Jun, [facility] [place] [facility] [address] [facility] [id number] [place] [address] Jun, [facility] [place] [facility] [address] [facility] [id number] [place] [address] Jun, [facility] [place] [facility] [address] [id number] [facility] [place] [address] May, [facility] [place] [facility] [address] [facility] [id number] [place] [address] May, [facility] [place] [facility] [address] [facility] [id number] [facility] [place] [address] May, [facility] [place] [facility] [address] [facility] [id number] [place] [address] May, [facility] [place] [facility] [address] [id number] [place] [address] May, [facility] [place] [facility] [address] [facility] [id number] [place] [address] May, 2013 [facility] [place] [facility] [address] [id number] [place] [address] May, [facility] [place] [facility] [address] [facility] [id number] [place] [address] May, [facility] [place] [facility] [address] [facility] [id number] [place] [address] May, [facility] [place] [facility] [address] [id number] [place] [address] May, [facility] [place] [facility] [address] [id number] [place] [address] May, [facility] [place] [facility] [address] [facility] [id number] [place] [address] May, [facility] [place] [facility] [address] [id number] [place] [address] May, [facility] [place] [facility] [address] [facility] [id number] [place] [address] Apr, [facility] [place] [facility] [address] [id number] [place] [address] Apr, [facility] [place] [facility] [address] [id number] [place] [address] Apr, [facility] [place] [facility] [address] [id number] [place] [address] Apr, [facility] [place] [facility] [address] [id number] [place] [address] Apr, [facility] [place] [facility] [address] [facility] [id number] [place] [address] Apr, [facility] [place] [facility] [address] [id number] [place] [address] Apr, [facility] [place] [facility] [address] [id number] [place] [address] Apr, [facility] [place] [facility] [address] [id number] [place] [address] Apr, [facility] [address] [id number] [place] [address] Apr, [facility] [address] [id number] [place] [address] Apr, [facility] [address] [id number] [place] [address] Apr, [facility] [address] [id number] [place] [address] Apr, [facility] [address] [id number] [place] [address] Apr, [facility] [address] [id number] [place] [address] March, [facility] [address] [id number] [place] [address] March, [facility] [address] [id number] [place] [address] March, [facility] [address] [id number] [place] [address] March, [facility] [address] [id number] [place] [address] March, [facility] [address] [id number] [place] [address] March, [facility] [address] [id number] [place] [address] March, [facility] [address] [id number] [place] [address] March, [facility] [address] [id number] [place] [address] March, [facility] [address] [id number] [place] [address] March, [facility] [address] [id number] [place] [address] Feb, [facility] [address] [id number] [place] [address] Feb, [facility] [address] [id number] [place] [address] Feb, [facility] [address] [id number] [place] [address] Feb, [facility] [address] [id number] [place] [address] Feb, [facility] [address] [id number] [place] [address] Feb, [facility] [address] [facility] [id number] [facility] [place] [address] Feb, [facility] [address] [facility] [id number] [facility] [place] [address] Feb, [facility] [address] [facility] [id number] [place] [address] Jan, [facility] [address] [facility] [id number] [place] [address] Jan, [facility] [address] [facility] [id number] [place] [address] Jan, [facility] [address] [id number] [place] [address] Jan, [facility] [address] [id number] [place] [address] Jan, [facility] [address] [id number] [place] [address] Jan, [facility] [address] [facility] [id number] [place] [address] Jan, [facility] [address] [id number] [place] [address] Jan, [facility] [address] [id number] [place] [address] Jan, [facility] [address] [id number] [place] [address] Jan, [facility] [address] [facility] [id number] [place] [address] Dec, [facility] [address] [facility] [id number] [place] [address] Dec, [facility] [address] [id number] [place] [address] Nov, [facility] [address] [id number] [place] [address] Nov, [facility] [address] [id number] [place] [address] 16 Nov, 2013 [facility] [address] [id number] [place] [address] Nov, [facility] [address] [id number] [place] [address] Nov, [facility] [address] [id number] [place] [address] Nov, [facility] [address] [id number] [place] [address] Nov, [facility] [address] [id number] [place] [address] Nov, [facility] [address] [id number] [place] [address] Oct, [facility] [address] [id number] [place] [address] Oct, [facility] [address] [id number] [place] [address] Oct, [facility] [address] [id number] [place] [address] Oct, [facility] [address] [id number] [place] [address] Oct, [facility] [address] [id number] [place] [address] Oct, [facility] [address] [id number] [place] [address] Sep, [facility] [address] [id number] [place] [address] Sep, [facility] [id number] [place] [address] Sep, [facility] [address] [id number] [place] [address] Sep, [facility] [address] [id number] [place] [address] Sep, [facility] [address] [facility] [id number] [place] [address] Aug, [facility] [address] [id number] [place] [address] Aug, [facility] [address] [id number] [place] [address] Aug, [facility] [address] [id number] [place] [address] Aug, [facility] [address] [id number] [place] [address] Aug, [facility] [address] [id number] [place] [address] Aug, [facility] [address] [id number] [place] [address] Jul, [facility] [address] [id number] [place] [address] Jul, [facility] [address] [id number] [place] [address] Jul, [facility] [address] [id number] [place] [address] Jun, [facility] [address] [id number] [place] [address] Jun, [facility] [address] [id number] [place] [address] May, [facility] [address] [id number] [place] [address] May, [facility] [address] [id number] [place] [address] Apr, [facility] [address] [id number] [place] [address] Apr, [facility] [address] [id number] [place] [address] Apr, [facility] [address] [id number] [place] [address] March[facility] [address] [facility] [id number] [facility] [place] [address] Feb, [facility] [address] [id number] [facility] [place] [address] Feb, [facility] [address] [id number] [facility] [place] [address] Jan, [facility] [address] [id number] [facility] [place] [address] Jan, [facility] [address] [id number] [facility] [place] [address] Jan, [facility] [address] [id number] [facility] [place] [address] 08 Jan, 2013 [facility] [address] [id number] [place] [address] Jan, [facility] [address] [id number] [facility] [place] [address] Dec, [facility] [address] [id number] [facility] [place] [address] Dec, [facility] [address] [id number] [place] [address] Dec, [facility] [address] [id number] [place] [address] Dec, [facility] [address] [id number] [place] [address] Dec, [facility] [address] [id number] [place] [address] 05 Dec, 2012 [facility] [address] [place] [id number] Nov, [facility] [address] [id number] [place] [address] Nov, [facility] [address] [id number] [place] [address] Nov, [facility] [address] [id number] [place] [address] Nov, [facility] [address] [id number] [place] [address] Nov, [facility] [address] [id number] [place] [address] Oct, [facility] [address] [id number] [place] [address] Oct, [facility] [address] [id number] [place] [address] Oct, [facility] [address] [id number] [place] [address] Oct, [facility] [address] [id number] [place] [address] Oct, [facility] [address] [id number] [place] [address] Oct, [facility] [address] [id number] [place] [address] Oct, [facility] [address] [id number] [place] [address] Oct, [facility] [address] [id number] [place] [address] Sep, [facility] [address] [id number] [place] [address] Sep, [facility] [address] [id number] [place] [address] Sep, [facility] [address] [id number] [place] [address] Sep, [facility] [address] [id number] [place] [address] Sep, [facility] [address] [id number] [place] [address] Sep, [facility] [address] [id number] [place] [address] Sep, [facility] [address] [id number] [place] [address] Sep, [facility] [id number] [place] [address] Sep, [facility] [address] [id number] [place] [address] Sep, [facility] [id number] [place] [address] Sep, [facility] [id number] [place] [address] Sep, [facility] [id number] [place] [address] Sep, [facility] [id number] [place] [address] Sep, [facility] [id number] [place] [address] Sep, [facility] [address] [id number] [place] [address] Sep, IMMUNIZATIONS No Known Immunizations SOCIAL HISTORY Never Assessed REASON FOR VISIT PLAN OF CARE VITAL SIGNS Height 68 in 2014-03-01 Weight 168.5 lbs 2014-03-01 Temperature 97.6 degrees Fahrenheit 2014-03-01 Heart Rate 74 bpm 2014-03-01 Respiratory Rate 18 2014-03-01 Blood pressure systolic 124 mmHg 2014-03-01 Blood pressure diastolic 88 mmHg 2014-03-01 MEDICATIONS Unknown Medications RESULTS No Results PROCEDURES No Known procedures INSTRUCTIONS MEDICATIONS ADMINISTERED No Known Medications MEDICAL (GENERAL) HISTORY Type Description Date Medical History hypertension Medical History type I diabetes Medical History chronic renal insufficiency Surgical History gastric pacemaker 2008 Hospitalization History nausea 2011
--- OUTSIDE RECORDS SUMMARY | 2020-04-17 21:23 | XMS REPORT ---
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 Active 00106671 Problem Other chronic pain G89.29 Active 8 8108695 Problem Hypertension, essential I10 Active 56909007 Problem Vitamin D deficiency E55.9 Active 35302578 Problem Mood disorder F39 Active 525577 05 Problem Type 1 diabetes mellitus with hyperglycemia E10.65 Active 713279894109501 Problem Type 1 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 Active 28721742 Problem Chronic fatigue R53.82 Active 8422 9001 Problem Controlled diabetes mellitus type 1 without complications E10.9 Active [id number] ALLERGIES No Information ENCOUNTERS Encounter Location Date Diagnosis [place] [address] [address] Dec, Type 1 diabetes mellitus with other diab etic neurological complication E10.49 [place] [address] [address] Nov, Type 1 diabetes mellitus with diabetic p olyneuropathy E10.42 ; Mood disorder F39 ; Vitamin D deficiency E55.9 and Renal insufficiency N28.9 [place] [address] [address] Nov, Type 1 diabetes mellitus with other diab etic neurological complication E10.49 [place] [address] [address] Oct, Other chronic pain G89.29 [place] [address] [address] Oct, Type 1 diabetes mellitus with other diab etic neurological complication E10.49 [facility] [address] [place] [id number] [place] [address] Oct, [facility] [address] [address] Aug, Type 1 diabetes mellitus with other diab etic neurological complication E10.49 [facility] [address] [address] 14 Aug, 2019 Encounter for immunization Z23 [facility] [address] [address] Aug, Vitamin D deficiency E55.9 [facility] [address] [address] Jul, Type 1 diabetes mellitus with other diab etic neurological complication E10.49 [facility] [address] [address] Jul, Type 1 diabetes mellitus with hyperglyce uma E10.65 [facility] [address] [address] Jun, Type 1 diabetes mellitus with other diab etic neurological complication E10.49 [facility] [address] [address] May, [facility] [address] [address] May, [facility] [address] [address] May, Other chronic pain G89.29 [facility] [address] [address] May, [facility] [address] [address] May, Type 1 diabetes mellitus with other diab etic neurological complication E10.49 [facility] [address] [place] [address] Apr, [facility] [address] [id number] [place] [address] Apr, Type 1 diabetes mellitus with other diab etic neurological complication E10.49 [facility] [address] [facility] [place] [address] Apr, Encounter for Medicare annual wellness e xam Z00.00 [place] [address] [place] [id number] [place] [address] March, Encounter for Medicare annual wellness e xam Z00.00 and Type 1 diabetes mellitus with other diabetic neurological complication E10.49 [place] [address] [place] [id number] [place] [address] Feb, Type 1 diabetes mellitus with other diab etic neurological complication E10.49 [place] [address] [place] [id number] [place] [address] Feb, Encounter for Medicare annual wellness e xam Z00.00 ; Mood disorder F39 ; Type 1 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 ; Hypertension, essential I10 and Chronic fatigue R53.82 [place] [address] [place] [id number] [place] [address] Jan, Type 1 diabetes mellitus with other diab etic neurological complication E10.49 [place] [address] [place] [id number] [place] [address] Jan, [facility] [address] [place] [id number] [place] [address] Jan, Other chronic pain G89.29 [facility] [address] [place] [id number] [place] [address] Dec, [facility] [address] [place] [id number] [place] [address] Dec, Type 1 diabetes mellitus with other diab etic neurological complication E10.49 [place] [address] [facility] [place] [address] 05 Dec, 2018 Other chronic pain G89.29 [facility] [address] [address] Nov, [facility] [address] [id number] Nov, Caries K02.9 [place] [address] [address] Nov, Type 1 diabetes mellitus with other diab etic neurological complication E10.49 [place] [address] [address] Nov, Controlled diabetes mellitus type 1 with out complications E10.9 ; Other chronic pain G89.29 and Pain in left knee M25.562 [facility] [address] [id number] Oct, Dental examination Z01.20 [place] [address] [address] 14 Oct, 2018 Cutaneous abscess of unspecified foot L0 2.619 and Cellulitis of unspecified part of limb L03.119 [place] [address] [address] Oct, [place] [address] [address] 10 Oct, 2018 Type 1 diabetes mellitus with other diab etic neurological complication E10.49 [facility] [address] [id number] Oct, Dental examination Z01.20 and Caries K02 .9 [place] [address] [address] 04 Oct, 2018 Cutaneous abscess of left foot L02.612 a nd Cellulitis of left lower limb L03.[address] [address] Oct, Dental examination Z01.20 and Pain, dent al K08.89 [facility] WALK IN [facility] [address] [facility] [id number] [address] [place] [address] Sep, Left foot pain M79.672 and L eft anterior knee pain M25.562 [facility] [address] [address] Sep, Type 1 diabetes mellitus with other diab etic neurological complication E10.49 [facility] [address] [address] Sep, [facility] [address] [address] Aug, Type 1 diabetes mellitus with other diab etic neurological complication E10.49 [place] [address] [address] 10 Aug, 2018 Encounter for immunization Z23 [place] [address] [address] 05 Aug, 2018 Type 1 diabetes mellitus with hyperglyce uma E10.65 [place] [address] [address] Jul, Type 1 diabetes mellitus with hyperglyce uma E10.65 [facility] [address] [address] 19 Jul, 2018 [facility] [address] [address] 18 Jul, 2018 [facility] [address] [address] 17 Jul, 2018 Type 1 diabetes mellitus with other diab etic neurological complication E10.49 [facility] [address] [address] 17 Jul, 2018 Type 1 diabetes mellitus with other diab etic neurological complication E10.49 and Mood disorder F39 [facility] [address] [address] Jun, [facility] [address] [address] Jun, Type 1 diabetes mellitus with other diab etic neurological complication E10.49 and Chronic fatigue R53.82 [place] [address] [place] [address] May, Type 1 diabetes mellitus with other diab etic neurological complication E10.49 [facility] [address] [id number] [place] [address] May, [facility] [address] [id number] [place] [address] May, [facility] [address] [place] [id number] [place] [address] Apr, [facility] [address] [place] [id number] [place] [address] Apr, Type 1 diabetes mellitus with other diab etic neurological complication E10.49 [facility] [address] [place] [id number] [place] [address] March, [facility] [address] [place] [id number] [place] [address] Feb, [facility] [address] [place] [id number] [place] [address] Feb, Type 1 diabetes mellitus with other diab etic neurological complication E10.49 ; Tobacco abuse Z72.0 and Tobacco abuse counseling Z71.6 [facility] [address] [place] [id number] [place] [address] Jan, Type 1 diabetes mellitus with hyperglyce uma E10.65 [facility] [address] [place] [id number] [place] [address] Jan, [facility] [address] [place] [id number] [place] [address] Dec, Tobacco abuse Z72.0 [facility] [address] [place] [id number] [place] [address] Dec, Type 1 diabetes mellitus with hyperglyce uma E10.65 [facility] [address] [place] [id number] [place] [address] Dec, Type 1 diabetes mellitus with hyperglyce uma E10.65 ; Tobacco abuse Z72.0 and Tobacco abuse counseling Z71.6 [facility] [address] [place] [id number] [place] [address] Nov, Type 1 diabetes mellitus with hyperglyce uma E10.65 [facility] [address] [place] [id number] [place] [address] Oct, Type 1 diabetes mellitus with hyperglyce uma E10.65 [facility] [address] [place] [id number] [place] [address] Oct, Type 1 diabetes mellitus with hyperglyce uma E10.65 [facility] [address] [place] [id number] [place] [address] Sep, Type 1 diabetes mellitus with hyperglyce uma E10.65 [place] [address] [place] [address] [place] [address] Aug, Type 1 diabetes mellitus with hyperglyce uma E10.65 [place] [address] [address] Aug, [facility] [address] [address] Aug, Type 1 diabetes mellitus with hyperglyce uma E10.65 [place] [address] [place] [id number] [place] [address] Aug, Encounter for immunization Z23 [facility] [address] [place] [id number] [place] [address] Aug, Type 1 diabetes mellitus with hyperglyce uma E10.65 [facility] [address] [place] [id number] [place] [address] Jul, Type 1 diabetes mellitus with hyperglyce uma E10.65 [facility] [address] [place] [id number] [place] [address] Jul, Type 1 diabetes mellitus with hyperglyce uma E10.65 [facility] [address] [place] [id number] [place] [address] May, Type 1 diabetes mellitus with hyperglyce uma E10.65 [facility] [address] [place] [id number] [place] [address] May, [place] [address] [place] [id number] [place] [address] Apr, [facility] [address] [address] Apr, Type 1 diabetes mellitus with hyperglyce uma E10.65 [facility] [address] [address] March, [facility] [address] [address] March, [facility] [address] [address] Jan, [facility] [address] [address] Jan, [facility] [address] [address] Jan, Type 1 diabetes mellitus with diabetic p olyneuropathy E10.42 [facility] [address] [address] Jan, Type 1 diabetes mellitus with hyperglyce uma E10.65 ; Excessive cerumen in both ear canals H61.23 and Controlled diabetes mellitus type 1 without complications E10.9 [facility] [address] [address] Dec, [facility] [address] [address] Dec, [facility] [address] [address] Dec, [facility] [address] [address] Dec, [facility] [address] [address] Nov, [facility] [address] [address] Nov, [facility] [address] [address] Oct, Type 1 diabetes mellitus with hyperglyce uma E10.65 [facility] [address] [address] Sep, [facility] [address] [address] Sep, [facility] [address] [address] Sep, Controlled diabetes mellitus type 1 with out complications E10.9 [facility] [address] [address] Sep, [facility] [address] [id number] Aug, Dental caries K02.9 [facility] [address] [address] Aug, Type 1 diabetes mellitus with diabetic p olyneuropathy E10.42 [facility] [address] [address] Aug, [facility] [address] [address] Aug, [facility] [address] [address] Aug, [facility] [address] [address] Jul, Type 1 diabetes mellitus with hyperglyce uma E10.65 [facility] [address] [address] Jul, Type 1 diabetes mellitus with hyperglyce uma E10.65 ; Tooth pain K08.8 and Encounter for immunization Z23 [facility] [address] [id number] 08 Jul, 2016 Dental examination Z01.20 [facility] [address] [address] 08 Jul, 2016 [facility] [address] [address] Jul, [facility] [address] [id number] [place] [address] Jul, [facility] [address] [id number] [place] [address] Jun, [facility] [address] [id number] [place] [address] May, [facility] [address] [id number] [place] [address] Apr, [facility] [address] [id number] [place] [address] Apr, [facility] [address] [id number] [place] [address] Apr, [facility] [address] [id number] [place] [address] March, [facility] [address] [place] [id number] [place] [address] March, [facility] [address] [id number] [place] [address] Feb, [facility] [address] [id number] [place] [address] Feb, [facility] [address] [id number] [place] [address] Feb, Type 1 diabetes mellitus with hyperglyce uma E10.65 [facility] [address] [id number] [place] [address] Jan, [facility] [address] [id number] [place] [address] Jan, [facility] [address] [place] [id number] [place] [address] Jan, [facility] [address] [id number] [place] [address] Jan, [facility] [address] [place] [id number] [place] [address] Dec, [facility] [address] [address] Nov, [facility] [address] [address] Nov, [facility] [address] [address] Oct, [facility] [address] [address] Oct, Type 1 diabetes mellitus with diabetic a utonomic (poly)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 ; Type 1 diabetes mellitus with hyperglycemia E10.65 ; Gastroparesis K31.84 and Esophageal stricture K22.2 [facility] [address] [address] Oct, [facility] [address] [address] Sep, [facility] [address] [address] Sep, Type 1 diabetes mellitus with other diab etic neurological complication E10.49 [facility] [address] [address] Aug, Encounter for immunization Z23 [facility] [address] [address] Aug, [facility] [address] [address] Aug, [facility] [address] [address] Jul, [facility] [address] [address] Jul, [facility] [address] [address] Jun, [facility] [address] [address] Jun, [facility] [address] [address] Jun, [facility] [address] [place] [id number] [place] [address] May, [facility] [address] [address] May, [facility] [address] [address] May, Diabetes type 1, controlled 250.01 [facility] [address] [address] May, [facility] [address] [address] May, [facility] [address] [id number] Apr, Dental examination V72.2 [facility] [address] [address] Apr, [facility] [address] [address] Apr, [facility] [address] [address] Apr, [facility] [address] [address] Apr, [facility] [address] [address] Apr, [facility] [address] [id number] Apr, Dental examination V72.2 [facility] [address] [address] Apr, [facility] [address] [address] Apr, [facility] [address] [address] March, Diabetes mellitus type 1 250.01 [facility] [address] [place] [address] March, [facility] [address] [facility] [id number] [place] [address] Feb, [facility] [address] [id number] [place] [address] Feb, [facility] [address] [id number] [place] [address] Jan, [facility] [address] [id number] [place] [address] Jan, [facility] [address] [id number] [place] [address] Jan, [facility] [address] [id number] [place] [address] Jan, [facility] [address] [id number] [place] [address] Dec, [facility] [address] [id number] [place] [address] Dec, [facility] [address] [id number] [place] [address] Nov, [facility] [address] [id number] [place] [address] Nov, [facility] [address] [id number] [place] [address] Nov, [facility] [address] [id number] [place] [address] Nov, [facility] [address] [id number] [place] [address] Nov, [facility] [address] [id number] [place] [address] Nov, [facility] [address] [id number] [place] [address] Nov, [facility] [address] [id number] [place] [address] Oct, [facility] [address] [id number] [place] [address] Oct, [facility] [address] [id number] [place] [address] Sep, [facility] [address] [id number] [place] [address] Aug, [facility] [address] [id number] [place] [address] Aug, [facility] [address] [id number] [place] [address] Aug, [facility] [address] [id number] [place] [address] Aug, [facility] [address] [id number] [place] [address] Aug, [facility] [address] [id number] [place] [address] Aug, [facility] [address] [id number] [place] [address] Aug, [facility] [address] [id number] [place] [address] Aug, [facility] [address] [id number] [place] [address] Aug, [facility] [address] [id number] [place] [address] Aug, [facility] [address] [id number] [place] [address] Aug, [facility] [address] [id number] [place] [address] Aug, [facility] [address] [id number] [place] [address] Aug, [facility] [address] [id number] [place] [address] Aug, [facility] [address] [id number] [place] [address] Jul, 2013 [facility] [place] [facility] [address] [id number] [facility], [place] [address] Jul, [facility] [place] [facility] [address] [facility] [id number] [facility], [place] [address] Jul, [facility] [place] [facility] [address] [facility] [id number] [facility], [place] [address] Jul, [facility] [place] [facility] [address] [id number] [facility], [place] [address] Jun, [facility] [place] [facility] [address] [facility] [id number] [place] [address] Jun, [facility] [place] [facility] [address] [facility] [id number] [place] [address] Jun, [facility] [place] [facility] [address] [facility] [id number] [place] [address] Jun, [facility] [place] [facility] [address] [id number] [facility], [place] [address] May, [facility] [place] [facility] [address] [facility] [id number] [place] [address] May, [facility] [place] [facility] [address] [facility] [id number] [facility], [place] [address] May, [facility] [place] [facility] [address] [facility] [id number] [place] [address] May, [facility] [place] [facility] [address] [id number] [place] [address] May, [facility] [place] [facility] [address] [facility] [id number] [place] [address] May, 2013 [facility] [place] [facility] [address] [id number] [place] [address] May, [facility] [place] [facility] [address] [facility] [id number] [place] [address] May, [facility] [place] [facility] [address] [facility] [id number] [place] [address] May, [facility] [place] [facility] [address] [id number] [place] [address] May, [facility] [place] [facility] [address] [address] [id number] [place] [address] May, [facility] [address] [facility] [id number] [place] [address] May, [facility] [address] [id number] [place] [address] May, [facility] [address] [facility] [id number] [place] [address] Apr, [facility] [address] [id number] [place] [address] Apr, [facility] [address] [id number] [place] [address] Apr, [facility] [address] [id number] [place] [address] Apr, [facility] [address] [id number] [place] [address] Apr, [facility] [address] [facility] [id number] [place] [address] Apr, [facility] [address] [id number] [place] [address] Apr, [facility] [address] [id number] [place] [address] Apr, [facility] [address] [id number] [place] [address] Apr, [facility] [address] [id number] [place] [address] Apr, [facility] [address] [id number] [place] [address] Apr, [facility] [address] [id number] [place] [address] Apr, [facility] [address] [id number] [place] [address] Apr, [facility] [address] [id number] [place] [address] Apr, [facility] [address] [id number] [place] [address] March, [facility] [address] [id number] [place] [address] March, [facility] [address] [id number] [place] [address] March, [facility] [address] [id number] [place] [address] March, [facility] [address] [id number] [place] [address] March, [facility] [address] [id number] [place] [address] March, [facility] [address] [id number] [place] [address] March, [facility] [address] [id number] [place] [address] March, [facility] [address] [id number] [place] [address] March, [facility] [address] [id number] [place] [address] March, [facility] [address] [id number] [place] [address] Feb, [facility] [address] [id number] [place] [address] Feb, [facility] [address] [id number] [place] [address] Feb, [facility] [address] [id number] [place] [address] Feb, [facility] [address] [id number] [place] [address] Feb, [facility] [address] [id number] [place] [address] Feb, [facility] [address] [facility] [id number] [facility], [place] [address] Feb, [facility] [address] [facility] [id number] [facility], [place] [address] Feb, [facility] [address] [facility] [id number] [place] [address] Jan, [facility] [address] [facility] [id number] [place] [address] Jan, [facility] [address] [facility] [id number] [place] [address] Jan, [facility] [address] [id number] [place] [address] Jan, [facility] [address] [id number] [place] [address] Jan, [facility] [address] [id number] [place] [address] Jan, [facility] [address] [facility] [id number] [place] [address] Jan, [facility] [address] [id number] [place] [address] Jan, [facility] [address] [id number] [place] [address] Jan, [facility] [address] [id number] [place] [address] Jan, [facility] [address] [facility] [id number] [place] [address] Dec, [facility] [address] [facility] [id number] [place] [address] Dec, [facility] [address] [id number] [place] [address] Nov, [facility] [address] [id number] [place] [address] Nov, [facility] [address] [id number] [place] [address] 16 Nov, 2013 [facility] [address] [id number] [place] [address] Nov, [facility] [address] [id number] [place] [address] Nov, [facility] [address] [id number] [place] [address] Nov, [facility] [address] [id number] [place] [address] Nov, [facility] [address] [id number] [place] [address] Nov, [facility] [address] [id number] [place] [address] Oct, [facility] [address] [id number] [place] [address] Oct, [facility] [address] [id number] [place] [address] Oct, [facility] [address] [id number] [place] [address] Oct, [facility] [address] [id number] [place] [address] Oct, [facility] [address] [id number] [place] [address] Oct, [facility] [address] [id number] [place] [address] Sep, [facility] [address] [id number] [place] [address] Sep, [facility] [address] [id number] [place] [address] Sep, [facility] [address] [id number] [place] [address] Sep, [facility] [address] [id number] [place] [address] Sep, [facility] [address] [facility] [id number] [place] [address] Aug, [facility] [address] [id number] [place] [address] Aug, [facility] [address] [id number] [place] [address] Aug, [facility] [address] [id number] [place] [address] Aug, [facility] [address] [id number] [place] [address] Aug, [facility] [address] [id number] [place] [address] Aug, [facility] [address] [id number] [place] [address] Jul, [facility] [address] [id number] [place] [address] Jul, [facility] [address] [id number] [place] [address] Jul, [facility] [address] [id number] [place] [address] Jun, [facility] [address] [id number] [place] [address] Jun, [facility] [address] [id number] [place] [address] May, [facility] [address] [id number] [place] [address] May, [facility] [address] [id number] [place] [address] Apr, [facility] [address] [id number] [place] [address] Apr, [facility] [address] [id number] [place] [address] Apr, [facility] [address] [id number] [place] [address] March, [facility] [address] [facility] [id number] [facility], [place] [address] Feb, [facility] [address] [id number] [facility], [place] [address] Feb, [facility] [address] [id number] [facility], [place] [address] Jan, [facility] [address] [id number] [facility], [place] [address] Jan, [facility] [address] [id number] [facility], [place] [address] Jan, [facility] [address] [id number] [facility], [place] [address] 08 Jan, 2013 [facility] [address] [id number] [place] [address] Jan, [facility] [address] [id number] [facility], [place] [address] Dec, [facility] [address] [id number] [facility], [place] [address] Dec, [facility] [address] [id number] [place] [address] Dec, [facility] [address] [id number] [place] [address] Dec, [facility] [address] [id number] [place] [address] Dec, [facility] [address] [id number] [place] [address] 05 Dec, 2012 [facility] [address] [place] [id number] Nov, [facility] [address] [id number] [place] [address] Nov, [facility] [address] [id number] [place] [address] Nov, [facility] [address] [id number] [place] [address] Nov, [facility] [address] [id number] [place] [address] Nov, [facility] [address] [id number] [place] [address] Oct, [facility] [address] [id number] [place] [address] Oct, [facility] [address] [id number] [place] [address] Oct, [facility] [address] [id number] [place] [address] Oct, [facility] [address] [id number] [place] [address] Oct, [facility] [address] [id number] [place] [address] Oct, [facility] [address] [id number] [place] [address] Oct, [facility] [address] [id number] [place] [address] Oct, [facility] [address] [id number] [place] [address] Sep, [facility] [address] [id number] [place] [address] Sep, [facility] [address] [id number] [place] [address] Sep, [facility] [address] [id number] [place] [address] Sep, [facility] [address] [id number] [place] [address] Sep, [facility] [address] [id number] [place] [address] Sep, [facility] [address] [id number] [place] [address] Sep, [facility] [address] [id number] [place] [address] Sep, [facility] [id number] [place] [address] Sep, [facility] [id number] [place] [address] Sep, [facility] [id number] [place] [address] Sep, [facility] [id number] [place] [address] Sep, [facility] [id number] [place] [address] Sep, [facility] [id number] [place] [address] Sep, [facility] [address] [id number] [place] [address] Sep, [facility] [address] [id number] [place] [address] Sep, IMMUNIZATIONS No Known Immunizations SOCIAL HISTORY Never Assessed REASON FOR VISIT PLAN OF CARE VITAL SIGNS MEDICATIONS Unknown Medications RESULTS No Results PROCEDURES Procedure Date Ordered Result Body Site GLYCATED HEMOGLOBIN TEST February 05, 2014 INSTRUCTIONS MEDICATIONS ADMINISTERED No Known Medications MEDICAL (GENERAL) HISTORY Type Description Date Medical History hypertension Medical History type I diabetes Medical History chronic renal insufficiency Surgical History gastric pacemaker 2008 Hospitalization History nausea 2011
--- OUTSIDE RECORDS SUMMARY | 2020-04-17 21:23 | XMS REPORT ---
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 Active 15084491 Problem Other chronic pain G89.29 Active 8 5397869 Problem Hypertension, essential I10 Active 77850564 Problem Vitamin D deficiency E55.9 Active 45838440 Problem Mood disorder F39 Active 996986 05 Problem Type 1 diabetes mellitus with hyperglycemia E10.65 Active 118497018679381 Problem Type 1 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 Active 35030890 Problem Chronic fatigue R53.82 Active 8422 9001 Problem Controlled diabetes mellitus type 1 without complications E10.9 Active 27954477 ALLERGIES No Information ENCOUNTERS Encounter Location Date Diagnosis [place] [address] [address] 03 Dec, 2019 Type 1 diabetes mellitus with other diab etic neurological complication E10.49 [place] [address] [address] Nov, Type 1 diabetes mellitus with diabetic p olyneuropathy E10.42 ; Mood disorder F39 ; Vitamin D deficiency E55.9 and Renal insufficiency N28.9 [place] [address] [address] Nov, Type 1 diabetes mellitus with other diab etic neurological complication E10.49 [place] [address] [address] Oct, Other chronic pain G89.29 [place] [address] [address] Oct, Type 1 diabetes mellitus with other diab etic neurological complication E10.49 [facility] [address] [address] Oct, [facility] [address] [address] Aug, Type 1 diabetes mellitus with other diab etic neurological complication E10.49 [facility] [address] [address] 14 Aug, 2019 Encounter for immunization Z23 [facility] [address] [address] 08 Aug, 2019 Vitamin D deficiency E55.9 [facility] [address] [address] Jul, Type 1 diabetes mellitus with other diab etic neurological complication E10.49 [facility] [address] [address] Jul, Type 1 diabetes mellitus with hyperglyce uma E10.65 [facility] [address] [address] Jun, Type 1 diabetes mellitus with other diab etic neurological complication E10.49 [facility] [address] [address] May, [facility] [address] [address] May, [facility] [address] [address] May, Other chronic pain G89.29 [facility] [address] [address] May, [facility] [address] [address] May, Type 1 diabetes mellitus with other diab etic neurological complication E10.49 [facility] [address] [address] Apr, [facility] [address] [facility] [place] [address] Apr, Type 1 diabetes mellitus with other diab etic neurological complication E10.49 [facility] [address] [facility] [place] [address] Apr, Encounter for Medicare annual wellness e xam Z00.00 [place] [address] [facility] [place] [address] March, Encounter for Medicare annual wellness e xam Z00.00 and Type 1 diabetes mellitus with other diabetic neurological complication E10.49 [place] [address] [place] [id number] [place] [address] Feb, Type 1 diabetes mellitus with other diab etic neurological complication E10.49 [place] [address] [facility] [place] [address] Feb, Encounter for Medicare annual wellness e xam Z00.00 ; Mood disorder F39 ; Type 1 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 ; Hypertension, essential I10 and Chronic fatigue R53.82 [place] [address] [place] [id number] [place] [address] Jan, Type 1 diabetes mellitus with other diab etic neurological complication E10.49 [place] [address] [facility] [place] [address] Jan, [place] [address] [facility] [place] [address] Jan, Other chronic pain G89.29 [place] [address] [place] [id number] [place] [address] Dec, [facility] [address] [facility] [place] [address] Dec, Type 1 diabetes mellitus with other diab etic neurological complication E10.49 [facility] [address] [facility] [place] [address] Dec, Other chronic pain G89.29 [place] [address] [place] [id number] [place] [address] Nov, [facility] [address] [id number] Nov, Caries K02.9 [place] [address] [address] Nov, Type 1 diabetes mellitus with other diab etic neurological complication E10.49 [place] [address] [address] Nov, Controlled diabetes mellitus type 1 with out complications E10.9 ; Other chronic pain G89.29 and Pain in left knee M25.562 [facility] [address] [id number] Oct, Dental examination Z01.20 [place] [address] [address] 14 Oct, 2018 Cutaneous abscess of unspecified foot L0 2.619 and Cellulitis of unspecified part of limb L03.119 [place] [address] [address] Oct, [place] [address] [address] 10 Oct, 2018 Type 1 diabetes mellitus with other diab etic neurological complication E10.49 [facility] [address] [id number] Oct, Dental examination Z01.20 and Caries K02 .[address] [address] 04 Oct, 2018 Cutaneous abscess of left foot L02.612 a nd Cellulitis of left lower limb L03.116 [place] [address] [address] 04 Oct, 2018 Dental examination Z01.20 and Pain, dent al K08.89 [facility] [address] [facility] [id number] [address] [place] [address] Sep, Left foot pain M79.672 and L eft anterior knee pain M25.562 [place] [address] [address] Sep, Type 1 diabetes mellitus with other diab etic neurological complication E10.49 [facility] [address] [address] Sep, [facility] [address] [address] Aug, Type 1 diabetes mellitus with other diab etic neurological complication E10.49 [facility] [address] [address] 10 Aug, 2018 Encounter for immunization Z23 [facility] [address] [address] 05 Aug, 2018 Type 1 diabetes mellitus with hyperglyce uma E10.65 [place] [address] [address] Jul, Type 1 diabetes mellitus with hyperglyce uma E10.65 [facility] [address] [address] Jul, [facility] [address] [address] 18 Jul, 2018 [facility] [address] [address] Jul, Type 1 diabetes mellitus with other diab etic neurological complication E10.49 [place] [address] [address] Jul, Type 1 diabetes mellitus with other diab etic neurological complication E10.49 and Mood disorder F39 [facility] [address] [address] Jun, [facility] [address] [address] Jun, Type 1 diabetes mellitus with other diab etic neurological complication E10.49 and Chronic fatigue R53.82 [facility] [address] [address] May, Type 1 diabetes mellitus with other diab etic neurological complication E10.49 [facility] [address] [place] [id number] [place] [address] May, [facility] [address] [place] [id number] [place] [address] May, [facility] [address] [place] [id number] [place] [address] Apr, [facility] [address] [place] [id number] [place] [address] Apr, Type 1 diabetes mellitus with other diab etic neurological complication E10.49 [facility] [address] [place] [id number] [place] [address] March, [facility] [address] [address] Feb, [facility] [address] [place] [id number] [place] [address] Feb, Type 1 diabetes mellitus with other diab etic neurological complication E10.49 ; Tobacco abuse Z72.0 and Tobacco abuse counseling Z71.6 [place] [address] [place] [id number] [place] [address] Jan, Type 1 diabetes mellitus with hyperglyce uma E10.65 [facility] [address] [place] [id number] [place] [address] Jan, [facility] [address] [address] Dec, Tobacco abuse Z72.0 [facility] [address] [place] [id number] [place] [address] Dec, Type 1 diabetes mellitus with hyperglyce uma E10.65 [facility] [address] [address] Dec, Type 1 diabetes mellitus with hyperglyce uma E10.65 ; Tobacco abuse Z72.0 and Tobacco abuse counseling Z71.6 [place] [address] [address] Nov, Type 1 diabetes mellitus with hyperglyce uma E10.65 [facility] [address] [place] [id number] [place] [address] Oct, Type 1 diabetes mellitus with hyperglyce uma E10.65 [facility] [address] [place] [address] [place] [address] Oct, Type 1 diabetes mellitus with hyperglyce uma E10.65 [facility] [address] [address] Sep, Type 1 diabetes mellitus with hyperglyce uma E10.65 [facility] [address] [address] Aug, Type 1 diabetes mellitus with hyperglyce uma E10.65 [place] [address] [address] Aug, [place] [address] [address] Aug, Type 1 diabetes mellitus with hyperglyce uma E10.65 [place] [address] [address] Aug, Encounter for immunization Z23 [place] [address] [address] Aug, Type 1 diabetes mellitus with hyperglyce uma E10.65 [place] [address] [address] Jul, Type 1 diabetes mellitus with hyperglyce uma E10.65 [place] [address] [address] Jul, Type 1 diabetes mellitus with hyperglyce uma E10.65 [facility] [address] [address] May, Type 1 diabetes mellitus with hyperglyce uma E10.65 [facility] [address] [place] [id number] [place] [address] May, [facility] [address] [address] Apr, [facility] [address] [place] [id number] [place] [address] Apr, Type 1 diabetes mellitus with hyperglyce uma E10.65 [facility] [address] [place] [id number] [place] [address] March, [facility] [address] [address] March, [facility] [address] [address] Jan, [facility] [address] [address] Jan, [facility] [address] [address] Jan, Type 1 diabetes mellitus with diabetic p olyneuropathy E10.42 [facility] [address] [address] Jan, Type 1 diabetes mellitus with hyperglyce uma E10.65 ; Excessive cerumen in both ear canals H61.23 and Controlled diabetes mellitus type 1 without complications E10.9 [facility] [address] [address] Dec, [facility] [address] [address] Dec, [facility] [address] [address] Dec, [facility] [address] [place] [id number] [place] [address] Dec, [facility] [address] [address] Nov, [facility] [address] [address] Nov, [facility] [address] [address] Oct, Type 1 diabetes mellitus with hyperglyce uma E10.65 [facility] [address] [place] [id number] [place] [address] 17 Sep, 2016 [facility] [address] [address] Sep, [facility] [address] [address] Sep, Controlled diabetes mellitus type 1 with out complications E10.9 [facility] [address] [address] Sep, [facility] [address] [id number] Aug, Dental caries K02.9 [facility] [address] [address] Aug, Type 1 diabetes mellitus with diabetic p olyneuropathy E10.42 [facility] [address] [address] Aug, [facility] [address] [address] Aug, [facility] [address] [address] Aug, [facility] [address] [address] Jul, Type 1 diabetes mellitus with hyperglyce uma E10.65 [facility] [address] [address] Jul, Type 1 diabetes mellitus with hyperglyce uma E10.65 ; Tooth pain K08.8 and Encounter for immunization Z23 [facility] [address] [id number] 08 Jul, 2016 Dental examination Z01.20 [facility] [address] [address] 08 Jul, 2016 [facility] [address] [address] Jul, [facility] [address] [place] [address] [place] [address] Jul, [facility] [address] [facility] [place] [address] Jun, [facility] [address] [facility] [place] [address] May, [facility] [address] [facility] [place] [address] Apr, [facility] [address] [facility] [place] [address] Apr, [facility] [address] [facility] [place] [address] Apr, [facility] [address] [facility] [place] [address] March, [facility] [address] [place] [id number] [place] [address] March, [facility] [address] [place] [id number] [place] [address] Feb, [facility] [address] [facility] [place] [address] Feb, [facility] [address] [facility] [place] [address] Feb, Type 1 diabetes mellitus with hyperglyce uma E10.65 [facility] [address] [facility] [place] [address] Jan, [facility] [address] [facility] [place] [address] Jan, [facility] [address] [facility] [place] [address] Jan, [facility] [address] [facility] [place] [address] Jan, [facility] [address] [facility] [place] [address] Dec, [facility] [address] [place] [id number] [place] [address] Nov, [facility] [address] [address] Nov, [facility] [address] [address] Oct, [facility] [address] [place] [id number] [place] [address] Oct, Type 1 diabetes mellitus with diabetic a utonomic (poly)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 ; Type 1 diabetes mellitus with hyperglycemia E10.65 ; Gastroparesis K31.84 and Esophageal stricture K22.2 [facility] [address] [address] Oct, [facility] [address] [address] Sep, [facility] [address] [address] Sep, Type 1 diabetes mellitus with other diab etic neurological complication E10.49 [facility] [address] [address] Aug, Encounter for immunization Z23 [facility] [address] [address] Aug, [facility] [address] [address] Aug, [facility] [address] [address] Jul, [facility] [address] [address] Jul, [facility] [address] [address] Jun, [facility] [address] [address] Jun, [facility] [address] [address] Jun, [facility] [address] [place] [id number] [place] [address] May, [facility] [address] [address] May, [facility] [address] [address] May, Diabetes type 1, controlled 250.01 [facility] [address] [address] May, [facility] [address] [address] May, [facility] [address] [id number] Apr, Dental examination V72.2 [facility] [address] [address] Apr, [facility] [address] [address] Apr, [facility] [address] [address] Apr, [facility] [address] [address] Apr, [facility] [address] [address] Apr, [facility] [address] [id number] Apr, Dental examination V72.2 [facility] [address] [address] Apr, [facility] [address] [address] Apr, [facility] [address] [address] March, Diabetes mellitus type 1 250.01 [facility] [address] [address] March, [facility] [address] [facility] [place] [address] 14 Feb, 2015 [facility] [address] [facility] [place] [address] Feb, [facility] [address] [facility] [place] [address] Jan, [facility] [address] [facility] [place] [address] Jan, [facility] [address] [id number] [place] [address] Jan, [facility] [address] [id number] [place] [address] Jan, [facility] [address] [facility] [place] [address] Dec, [facility] [address] [id number] [place] [address] Dec, [facility] [address] [id number] [place] [address] Nov, [facility] [address] [id number] [place] [address] Nov, [facility] [address] [id number] [place] [address] Nov, [facility] [address] [id number] [place] [address] Nov, [facility] [address] [id number] [place] [address] Nov, [facility] [address] [id number] [place] [address] Nov, [facility] [address] [id number] [place] [address] Nov, [facility] [address] [id number] [place] [address] Oct, [facility] [address] [id number] [place] [address] Oct, [facility] [address] [facility] [id number] [place] [address] Sep, [facility] [address] [facility] [id number] [place] [address] Aug, [facility] [address] [id number] [place] [address] Aug, [facility] [address] [id number] [place] [address] Aug, [facility] [address] [facility] [id number] [place] [address] Aug, [facility] [address] [id number] [place] [address] Aug, [facility] [address] [id number] [place] [address] Aug, [facility] [address] [id number] [place] [address] Aug, [facility] [address] [id number] [place] [address] Aug, [facility] [address] [id number] [place] [address] Aug, [facility] [address] [id number] [place] [address] Aug, [facility] [address] [id number] [place] [address] Aug, 2013 [facility] [address] [id number] [place] [address] Aug, 2013 [facility] [address] [id number] [place] [address] Aug, 2013 [facility] [address] [id number] [place] [address] Aug, 2013 [facility] [address] [id number] [place] [address] Jul, 2013 [facility] [address] [id number] [place] [address] 13 Jul, 2013 [facility] [address] [id number] [place] [address] Jul, [facility] [address] [facility] [id number] [place] [address] Jul, [facility] [address] [id number] [place] [address] Jun, [facility] [address] [facility] [id number] [place] [address] Jun, [facility] [address] [facility] [id number] [place] [address] Jun, [facility] [address] [id number] [place] [address] Jun, [facility] [address] [id number] [place] [address] May, [facility] [address] [id number] [place] [address] May, [facility] [address] [facility] [id number] [place] [address] May, [facility] [address] [id number] [place] [address] May, [facility] [address] [id number] [place] [address] May, [facility] [address] [id number] [place] [address] May, [facility] [address] [facility] [id number] [place] [address] May, [facility] [address] [facility] [id number] [place] [address] May, [facility] [address] [facility] [id number] [place] [address] May, [facility] [address] [facility] [id number] [place] [address] May, [facility] [address] [id number] [place] [address] May, [facility] [address] [facility] [id number] [place] [address] May, [facility] [address] [facility] [id number] [place] [address] May, [facility] [address] [id number] [place] [address] Apr, [facility] [address] [facility] [id number] [place] [address] Apr, [facility] [address] [id number] [place] [address] Apr, [facility] [address] [facility] [address] [id number] [place] [address] Apr, [facility] [address] [id number] [place] [address] Apr, [facility] [address] [id number] [place] [address] Apr, [facility] [address] [facility] [id number] [place] [address] Apr, [facility] [address] [id number] [place] [address] Apr, [facility] [address] [id number] [place] [address] Apr, [facility] [address] [id number] [place] [address] Apr, [facility] [address] [facility] [id number] [place] [address] Apr, [facility] [address] [id number] [place] [address] Apr, [facility] [address] [id number] [place] [address] Apr, [facility] [address] [facility] [id number] [place] [address] Apr, [facility] [address] [id number] [place] [address] March, [facility] [address] [facility] [id number] [place] [address] March, [facility] [address] [id number] [place] [address] March, [facility] [address] [facility] [id number] [place] [address] March, [facility] [address] [facility] [id number] [facility] [facility] [place] [address] March, [facility] [place] [facility] [id number] [place] [address] March, [facility] [place] [facility] [id number] [place] [address] March, [facility] [place] [facility] [id number] [place] [address] March, [facility] [place] [facility] [address] [id number] [place] [address] March, [facility] [place] [facility] [id number] [place] [address] March, [facility] [place] [facility] [id number] [place] [address] Feb, [facility] [place] [facility] [id number] [place] [address] Feb, [facility] [place] [facility] [id number] [place] [address] Feb, [facility] [place] [facility] [address] [id number] [place] [address] Feb, [facility] [place] [facility] [address] [facility] [id number] [place] [address] Feb, [facility] [place] [facility] [id number] [place] [address] Feb, [facility] [place] [facility] [id number] [place] [address] Feb, [facility] [place] [facility] [address] [facility] [id number] [place] [address] Feb, [facility] [place] [facility] [address] [facility] [id number] [place] [address] Jan, [facility] [place] [facility] [address] [id number] [place] [address] Jan, [facility] [place] [facility] [address] [facility] [id number] [place] [address] Jan, [facility] [place] [facility] [address] [facility] [id number] [place] [address] Jan, [facility] [place] [facility] [address] [id number] [place] [address] Jan, [facility] [place] [facility] [address] [id number] [place] [address] Jan, [facility] [place] [facility] [address] [id number] [place] [address] Jan, [facility] [place] [facility] [address] [facility] [address] [id number] [place] [address] Jan, [facility] [place] [facility] [address] [id number] [place] [address] Jan, [facility] [place] [facility] [address] [facility] [address] [id number] [place] [address] Jan, [facility] [place] [facility] [address] [facility] [id number] [place] [address] Dec, [facility] [place] [facility] [address] [facility] [id number] [place] [address] Dec, [facility] [place] [facility] [address] [id number] [place] [address] Nov, [facility] [place] [facility] [address] [id number] [place] [address] Nov, [facility] [place] [facility] [address] [id number] [place] [address] Nov, [facility] [place] [facility] [address] [id number] [place] [address] 16 Nov, 2013 [facility] [place] [facility] [address] [facility] [address] [id number] [place] [address] Nov, [facility] [place] [facility] [address] [id number] [place] [address] Nov, [facility] [place] [facility] [address] [id number] [place] [address] Nov, [facility] [place] [facility] [address] [id number] [place] [address] Nov, [facility] [place] [facility] [address] [facility] [address] [id number] [place] [address] Oct, [facility] [place] [facility] [address] [facility] [address] [id number] [place] [address] Oct, [facility] [place] [facility] [id number] [place] [address] Oct, [facility] [place] [facility] [address] [id number] [place] [address] Oct, [facility] [place] [facility] [address] [id number] [place] [address] Oct, [facility] [place] [facility] [address] [id number] [place] [address] Oct, [facility] [place] [facility] [address] [facility] [id number] [place] [address] Sep, [facility] [place] [facility] [address] [facility] [address] [id number] [place] [address] Sep, [facility] [place] [facility] [address] [id number] [place] [address] Sep, [facility] [place] [facility] [id number] [place] [address] Sep, [facility] [place] [facility] [address] [id number] [place] [address] 05 Sep, 2013 [facility] [place] [facility] [address] [facility] [address] [id number] [place] [address] Aug, [facility] [place] [facility] [address] [facility] [id number] [place] [address] Aug, [facility] [place] [facility] [address] [facility] [id number] [place] [address] Aug, [facility] [place] [facility] [address] [id number] [place] [address] Aug, [facility] [place] [facility] [address] [id number] [place] [address] Aug, [facility] [place] [facility] [address] [facility] [id number] [place] [address] Aug, [facility] [place] [facility] [address] [id number] [place] [address] Jul, [facility] [place] [facility] [address] [id number] [place] [address] Jul, [facility] [place] [facility] [address] [id number] [place] [address] Jul, [facility] [place] [facility] [address] [id number] [place] [address] Jun, [facility] [place] [facility] [address] [id number] [place] [address] Jun, [facility] [place] [facility] [address] [id number] [place] [address] May, [facility] [place] [facility] [address] [id number] [place] [address] May, [facility] [place] [facility] [address] [id number] [place] [address] Apr, [facility] [place] [facility] [address] [id number] [place] [address] Apr, [facility] [place] [facility] [address] [id number] [place] [address] Apr, [facility] [place] [facility] [address] [id number] [place] [address] March, [facility] [place] [facility] [address] [facility] [address] [id number] [place] [address] Feb, [facility] [address] [facility] [id number] [place] [address] Feb, [facility] [address] [id number] [place] [address] 28 Jan, 2013 [facility] [address] [facility] [id number] [place] [address] Jan, [facility] [address] [id number] [place] [address] Jan, [facility] [address] [facility] [id number] [place] [address] Jan, [facility] [address] [id number] [place] [address] Jan, [facility] [address] [id number] [place] [address] Dec, [facility] [address] [facility] [id number] [place] [address] Dec, [facility] [address] [id number] [place] [address] Dec, [facility] [id number] [place] [address] Dec, [facility] [id number] [place] [address] Dec, [facility] [id number] [place] [address] Dec, [facility] [address] [place] [id number] 14 Nov, 2012 [facility] [place] [facility] [id number] [place] [address] Nov, [facility] [place] [facility] [address] [id number] [place] [address] 10 Nov, 2012 [facility] [id number] [place] [address] Nov, [facility] [place] [facility] [address] [id number] [place] [address] Nov, [facility] [place] [facility] [address] [id number] [place] [address] Oct, [facility] [place] [facility] [address] [id number] [place] [address] Oct, [facility] [place] [facility] [address] [id number] [place] [address] Oct, [facility] [place] [facility] [address] [id number] [place] [address] Oct, [facility] [place] [facility] [address] [id number] [place] [address] Oct, [facility] [place] [facility] [address] [id number] [place] [address] Oct, [facility] [place] [facility] [address] [id number] [place] [address] Oct, [facility] [place] [facility] [address] [id number] [place] [address] Oct, [facility] [place] [facility] [address] [id number] [place] [address] Sep, [facility] [place] [facility] [address] [id number] [place] [address] Sep, [facility] [place] [facility] [address] [id number] [place] [address] Sep, [facility] [place] [facility] [address] [id number] [place] [address] Sep, [facility] [place] [facility] [address] [id number] [place] [address] Sep, [facility] [place] [facility] [address] [id number] [place] [address] Sep, [facility] [place] [facility] [address] [id number] [place] [address] Sep, [facility] [place] [facility] [id number] [place] [address] Sep, [facility] [id number] [place] [address] Sep, [facility] [id number] [place] [address] Sep, [facility] [id number] [place] [address] Sep, [facility] [id number] [place] [address] Sep, [facility] [id number] [place] [address] Sep, [facility] [id number] [place] [address] Sep, [facility] [id number] [place] [address] Sep, [facility] [id number] [place] [address] Sep, IMMUNIZATIONS No Known Immunizations SOCIAL HISTORY [...]
--- OUTSIDE RECORDS SUMMARY | 2020-04-17 21:24 | XMS REPORT ---
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 Active 86898451 Problem Other chronic pain G89.29 Active 8 5243647 Problem Hypertension, essential I10 Active 50705005 Problem Vitamin D deficiency E55.9 Active 08201650 Problem Mood disorder F39 Active 622944 05 Problem Type 1 diabetes mellitus with hyperglycemia E10.65 Active [id number] Problem Type 1 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 Active 49085323 Problem Chronic fatigue R53.82 Active 8422 9001 Problem Controlled diabetes mellitus type 1 without complications E10.9 Active 09608814 ALLERGIES No Information ENCOUNTERS Encounter Location Date Diagnosis [place] [address] [address] 03 Dec, 2019 Type 1 diabetes mellitus with other diab etic neurological complication E10.49 [place] [address] [address] Nov, Type 1 diabetes mellitus with diabetic p olyneuropathy E10.42 ; Mood disorder F39 ; Vitamin D deficiency E55.9 and Renal insufficiency N28.9 [place] [address] [address] Nov, Type 1 diabetes mellitus with other diab etic neurological complication E10.49 [place] [address] [address] Oct, Other chronic pain G89.29 [place] [address] [address] Oct, Type 1 diabetes mellitus with other diab etic neurological complication E10.49 [facility] [address] [address] Oct, [facility] [address] [address] Aug, Type 1 diabetes mellitus with other diab etic neurological complication E10.49 [facility] [address] [address] 14 Aug, 2019 Encounter for immunization Z23 [facility] [address] [address] 08 Aug, 2019 Vitamin D deficiency E55.9 [facility] [address] [address] Jul, Type 1 diabetes mellitus with other diab etic neurological complication E10.49 [facility] [address] [address] Jul, Type 1 diabetes mellitus with hyperglyce uma E10.65 [facility] [address] [address] Jun, Type 1 diabetes mellitus with other diab etic neurological complication E10.49 [facility] [address] [address] May, [facility] [address] [address] May, [facility] [address] [address] May, Other chronic pain G89.29 [facility] [address] [address] May, [facility] [address] [address] May, Type 1 diabetes mellitus with other diab etic neurological complication E10.49 [facility] [address] [address] Apr, [facility] [address] [id number] [place] [address] Apr, Type 1 diabetes mellitus with other diab etic neurological complication E10.49 [facility] [address] [id number] [place] [address] Apr, Encounter for Medicare annual wellness e xam Z00.00 [place] [address] [id number] [place] [address] March, Encounter for Medicare annual wellness e xam Z00.00 and Type 1 diabetes mellitus with other diabetic neurological complication E10.49 [place] [address] [place] [id number] [place] [address] Feb, Type 1 diabetes mellitus with other diab etic neurological complication E10.49 [place] [address] [facility] [place] [address] Feb, Encounter for Medicare annual wellness e xam Z00.00 ; Mood disorder F39 ; Type 1 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 ; Hypertension, essential I10 and Chronic fatigue R53.82 [place] [address] [place] [id number] [place] [address] Jan, Type 1 diabetes mellitus with other diab etic neurological complication E10.49 [place] [address] [id number] [place] [address] Jan, [place] [address] [id number] [place] [address] Jan, Other chronic pain G89.29 [place] [address] [place] [id number] [place] [address] Dec, [facility] [address] [id number] [place] [address] Dec, Type 1 diabetes mellitus with other diab etic neurological complication E10.49 [facility] [address] [id number] [place] [address] Dec, Other chronic pain G89.29 [place] [address] [place] [id number] [place] [address] Nov, [facility] [address] [id number] Nov, Caries K02.9 [place] [address] [address] Nov, Type 1 diabetes mellitus with other diab etic neurological complication E10.49 [place] [address] [address] Nov, Controlled diabetes mellitus type 1 with out complications E10.9 ; Other chronic pain G89.29 and Pain in left knee M25.562 [facility] [address] [id number] Oct, Dental examination Z01.20 [place] [address] [address] 14 Oct, 2018 Cutaneous abscess of unspecified foot L0 2.619 and Cellulitis of unspecified part of limb L03.119 [place] [address] [address] Oct, [place] [address] [address] 10 Oct, 2018 Type 1 diabetes mellitus with other diab etic neurological complication E10.49 [facility] [address] [id number] Oct, Dental examination Z01.20 and Caries K02 .[address] [address] 04 Oct, 2018 Cutaneous abscess of left foot L02.612 a nd Cellulitis of left lower limb L03.116 [place] [address] [address] 04 Oct, 2018 Dental examination Z01.20 and Pain, dent al K08.89 [facility] [address] [facility] [id number] [place] [address] Sep, Left foot pain M79.672 and L eft anterior knee pain M25.562 [place] [address] [address] Sep, Type 1 diabetes mellitus with other diab etic neurological complication E10.49 [facility] [address] [address] Sep, [facility] [address] [address] Aug, Type 1 diabetes mellitus with other diab etic neurological complication E10.49 [facility] [address] [address] 10 Aug, 2018 Encounter for immunization Z23 [facility] [address] [address] 05 Aug, 2018 Type 1 diabetes mellitus with hyperglyce uma E10.65 [place] [address] [address] Jul, Type 1 diabetes mellitus with hyperglyce uma E10.65 [facility] [address] [address] Jul, [facility] [address] [address] 18 Jul, 2018 [facility] [address] [address] Jul, Type 1 diabetes mellitus with other diab etic neurological complication E10.49 [place] [address] [address] Jul, Type 1 diabetes mellitus with other diab etic neurological complication E10.49 and Mood disorder F39 [facility] [address] [address] Jun, [facility] [address] [address] Jun, Type 1 diabetes mellitus with other diab etic neurological complication E10.49 and Chronic fatigue R53.82 [facility] [address] [address] May, Type 1 diabetes mellitus with other diab etic neurological complication E10.49 [facility] [address] [place] [id number] [place] [address] May, [facility] [address] [place] [id number] [place] [address] May, [facility] [address] [place] [id number] [place] [address] Apr, [facility] [address] [place] [id number] [place] [address] Apr, Type 1 diabetes mellitus with other diab etic neurological complication E10.49 [facility] [address] [place] [id number] [place] [address] March, [facility] [address] [address] Feb, [facility] [address] [place] [id number] [place] [address] Feb, Type 1 diabetes mellitus with other diab etic neurological complication E10.49 ; Tobacco abuse Z72.0 and Tobacco abuse counseling Z71.6 [place] [address] [place] [id number] [place] [address] Jan, Type 1 diabetes mellitus with hyperglyce uma E10.65 [facility] [address] [place] [id number] [place] [address] Jan, [facility] [address] [address] Dec, Tobacco abuse Z72.0 [facility] [address] [place] [id number] [place] [address] Dec, Type 1 diabetes mellitus with hyperglyce uma E10.65 [facility] [address] [address] Dec, Type 1 diabetes mellitus with hyperglyce uma E10.65 ; Tobacco abuse Z72.0 and Tobacco abuse counseling Z71.6 [place] [address] [address] Nov, Type 1 diabetes mellitus with hyperglyce uma E10.65 [facility] [address] [place] [id number] [place] [address] Oct, Type 1 diabetes mellitus with hyperglyce uma E10.65 [facility] [address] [place] [id number] [place] [address] Oct, Type 1 diabetes mellitus with hyperglyce uma E10.65 [facility] [address] [address] Sep, Type 1 diabetes mellitus with hyperglyce uma E10.65 [facility] [address] [address] Aug, Type 1 diabetes mellitus with hyperglyce uma E10.65 [place] [address] [address] Aug, [place] [address] [address] Aug, Type 1 diabetes mellitus with hyperglyce uma E10.65 [place] [address] [address] Aug, Encounter for immunization Z23 [place] [address] [address] Aug, Type 1 diabetes mellitus with hyperglyce uma E10.65 [place] [address] [address] Jul, Type 1 diabetes mellitus with hyperglyce uma E10.65 [place] [address] [address] Jul, Type 1 diabetes mellitus with hyperglyce uma E10.65 [facility] [address] [address] May, Type 1 diabetes mellitus with hyperglyce uma E10.65 [facility] [address] [place] [id number] [place] [address] May, [facility] [address] [address] Apr, [facility] [address] [place] [id number] [place] [address] Apr, Type 1 diabetes mellitus with hyperglyce uma E10.65 [facility] [address] [place] [id number] [place] [address] March, [facility] [address] [address] March, [facility] [address] [address] Jan, [facility] [address] [address] Jan, [facility] [address] [address] Jan, Type 1 diabetes mellitus with diabetic p olyneuropathy E10.42 [facility] [address] [address] Jan, Type 1 diabetes mellitus with hyperglyce uma E10.65 ; Excessive cerumen in both ear canals H61.23 and Controlled diabetes mellitus type 1 without complications E10.9 [facility] [address] [address] Dec, [facility] [address] [address] Dec, [facility] [address] [address] Dec, [facility] [address] [place] [id number] [place] [address] Dec, [facility] [address] [address] Nov, [facility] [address] [address] Nov, [facility] [address] [address] Oct, Type 1 diabetes mellitus with hyperglyce uma E10.65 [facility] [address] [place] [id number] [place] [address] 17 Sep, 2016 [facility] [address] [address] Sep, [facility] [address] [address] Sep, Controlled diabetes mellitus type 1 with out complications E10.9 [facility] [address] [address] Sep, [facility] [address] [id number] Aug, Dental caries K02.9 [facility] [address] [address] Aug, Type 1 diabetes mellitus with diabetic p olyneuropathy E10.42 [facility] [address] [address] Aug, [facility] [address] [address] Aug, [facility] [address] [address] Aug, [facility] [address] [address] Jul, Type 1 diabetes mellitus with hyperglyce uma E10.65 [facility] [address] [address] Jul, Type 1 diabetes mellitus with hyperglyce uma E10.65 ; Tooth pain K08.8 and Encounter for immunization Z23 [facility] [address] [id number] 08 Jul, 2016 Dental examination Z01.20 [facility] [address] [address] 08 Jul, 2016 [facility] [address] [address] Jul, [facility] [address] [place] [address] [place] [address] Jul, [facility] [address] [id number] [place] [address] Jun, [facility] [address] [id number] [place] [address] May, [facility] [address] [id number] [place] [address] Apr, [facility] [address] [id number] [place] [address] Apr, [facility] [address] [id number] [place] [address] Apr, [facility] [address] [id number] [place] [address] March, [facility] [address] [place] [id number] [place] [address] March, [facility] [address] [place] [id number] [place] [address] Feb, [facility] [address] [id number] [place] [address] Feb, [facility] [address] [id number] [place] [address] Feb, Type 1 diabetes mellitus with hyperglyce uma E10.65 [facility] [address] [id number] [place] [address] Jan, [facility] [address] [id number] [place] [address] Jan, [facility] [address] [id number] [place] [address] Jan, [facility] [address] [id number] [place] [address] Jan, [facility] [address] [id number] [place] [address] Dec, [facility] [address] [place] [id number] [place] [address] Nov, [facility] [address] [address] Nov, [facility] [address] [address] Oct, [facility] [address] [place] [id number] [place] [address] Oct, Type 1 diabetes mellitus with diabetic a utonomic (poly)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 ; Type 1 diabetes mellitus with hyperglycemia E10.65 ; Gastroparesis K31.84 and Esophageal stricture K22.2 [facility] [address] [address] Oct, [facility] [address] [address] Sep, [facility] [address] [address] Sep, Type 1 diabetes mellitus with other diab etic neurological complication E10.49 [facility] [address] [address] Aug, Encounter for immunization Z23 [facility] [address] [address] Aug, [facility] [address] [address] Aug, [facility] [address] [address] Jul, [facility] [address] [address] Jul, [facility] [address] [address] Jun, [facility] [address] [address] Jun, [facility] [address] [address] Jun, [facility] [address] [place] [id number] [place] [address] May, [facility] [address] [address] May, [facility] [address] [address] May, Diabetes type 1, controlled 250.01 [facility] [address] [address] May, [facility] [address] [address] May, [facility] [address] [id number] Apr, Dental examination V72.2 [facility] [address] [address] Apr, [facility] [address] [address] Apr, [facility] [address] [address] Apr, [facility] [address] [address] Apr, [facility] [address] [address] Apr, [facility] [address] [id number] Apr, Dental examination V72.2 [facility] [address] [address] Apr, [facility] [address] [address] Apr, [facility] [address] [address] March, Diabetes mellitus type 1 250.01 [facility] [address] [address] March, [facility] [address] [id number] [place] [address] 14 Feb, 2015 [facility] [address] [id number] [place] [address] Feb, [facility] [address] [id number] [place] [address] Jan, [facility] [address] [id number] [place] [address] Jan, [facility] [address] [id number] [place] [address] Jan, [facility] [address] [id number] [place] [address] Jan, [facility] [address] [id number] [place] [address] Dec, [facility] [address] [id number] [place] [address] Dec, [facility] [address] [id number] [place] [address] Nov, [facility] [address] [id number] [place] [address] Nov, [facility] [address] [id number] [place] [address] Nov, [facility] [address] [id number] [place] [address] Nov, [facility] [address] [id number] [place] [address] Nov, [facility] [address] [id number] [place] [address] Nov, [facility] [address] [id number] [place] [address] Nov, [facility] [address] [id number] [place] [address] Oct, [facility] [address] [id number] [place] [address] Oct, [facility] [address] [facility] [id number] [place] [address] Sep, [facility] [address] [facility] [id number] [place] [address] Aug, [facility] [address] [id number] [place] [address] Aug, [facility] [address] [id number] [place] [address] Aug, [facility] [address] [facility] [id number] [place] [address] Aug, [facility] [address] [id number] [place] [address] Aug, [facility] [address] [id number] [place] [address] Aug, [facility] [address] [id number] [place] [address] Aug, [facility] [address] [id number] [place] [address] Aug, [facility] [address] [id number] [place] [address] Aug, [facility] [address] [id number] [place] [address] Aug, [facility] [address] [id number] [place] [address] Aug, 2013 [facility] [address] [id number] [place] [address] Aug, 2013 [facility] [address] [id number] [place] [address] Aug, 2013 [facility] [address] [id number] [place] [address] Aug, 2013 [facility] [address] [id number] [place] [address] Jul, 2013 [facility] [address] [id number] [facility] [place] [address] 13 Jul, 2013 [facility] [address] [id number] [facility] [place] [address] Jul, [facility] [address] [facility] [id number] [facility] [place] [address] Jul, [facility] [address] [id number] [facility] [place] [address] Jun, [facility] [address] [facility] [id number] [facility] [place] [address] Jun, [facility] [address] [facility] [id number] [facility] [place] [address] Jun, [facility] [address] [id number] [place] [address] Jun, [facility] [address] [id number] [place] [address] May, [facility] [address] [id number] [place] [address] May, [facility] [address] [facility] [id number] [place] [address] May, [facility] [address] [id number] [place] [address] May, [facility] [place] [facility] [address] [id number] [place] [address] May, [facility] [place] [facility] [address] [id number] [place] [address] May, [facility] [place] [facility] [address] [facility] [id number] [place] [address] May, [facility] [place] [facility] [address] [id number] [place] [address] May, [facility] [place] [facility] [address] [facility] [id number] [place] [address] May, [facility] [place] [facility] [address] [id number] [place] [address] May, [facility] [place] [facility] [address] [id number] [place] [address] May, [facility] [place] [facility] [address] [id number] [place] [address] May, [facility] [place] [facility] [address] [id number] [place] [address] May, [facility] [place] [facility] [address] [id number] [place] [address] Apr, [facility] [place] [facility] [address] [facility] [id number] [place] [address] Apr, [facility] [place] [facility] [address] [id number] [place] [address] Apr, [facility] [place] [facility] [address] [id number] [place] [address] Apr, [facility] [place] [facility] [address] [id number] [place] [address] Apr, [facility] [place] [facility] [address] [id number] [place] [address] Apr, [facility] [place] [facility] [address] [id number] [place] [address] Apr, [facility] [place] [facility] [address] [id number] [place] [address] Apr, [facility] [place] [facility] [address] [id number] [place] [address] Apr, [facility] [place] [facility] [address] [id number] [place] [address] Apr, [facility] [place] [facility] [address] [facility] [id number] [place] [address] Apr, [facility] [place] [facility] [address] [id number] [place] [address] Apr, [facility] [place] [facility] [address] [id number] [place] [address] Apr, [facility] [place] [facility] [address] [id number] [place] [address] Apr, [facility] [place] [facility] [address] [id number] [facility] [place] [address] March, [facility] [place] [facility] [address] [facility] [id number] [facility] [address] March, [facility] [place] [facility] [address] [id number] [place] [address] March, [facility] [place] [facility] [address] [id number] [facility] [place] [address] March, [facility] [place] [facility] [address] [facility] [id number] [facility] [address] March, [facility] [place] [facility] [address] [id number] [facility] [address] March, [facility] [place] [facility] [address] [id number] [place] [address] March, [facility] [place] [facility] [address] [id number] [facility] [address] March, [facility] [place] [facility] [address] [id number] [facility] [place] [address] March, [facility] [place] [facility] [address] [id number] [facility] [address] March, [facility] [place] [facility] [address] [id number] [place] [address] Feb, [facility] [place] [facility] [address] [id number] [place] [address] Feb, [facility] [place] [facility] [address] [id number] [facility] [address] Feb, [facility] [place] [facility] [address] [id number] [place] [address] Feb, [facility] [place] [facility] [address] [id number] [place] [address] Feb, [facility] [place] [facility] [address] [id number] [facility] [address] Feb, [facility] [place] [facility] [address] [id number] [place] [address] Feb, [facility] [place] [facility] [address] [facility] [id number] [facility] [address] Feb, [facility] [place] [facility] [address] [facility] [id number] [place] [address] Jan, [facility] [place] [facility] [address] [id number] [place] [address] Jan, [facility] [place] [facility] [address] [facility] [id number] [place] [address] Jan, [facility] [place] [facility] [address] [facility] [id number] [place] [address] Jan, [facility] [place] [facility] [address] [id number] [place] [address] Jan, [facility] [place] [facility] [address] [id number] [place] [address] Jan, [facility] [place] [facility] [address] [id number] [place] [address] Jan, [facility] [place] [facility] [address] [id number] [place] [address] Jan, [facility] [place] [facility] [address] [id number] [place] [address] Jan, [facility] [place] [facility] [address] [id number] [place] [address] Jan, [facility] [place] [facility] [address] [id number] [place] [address] Dec, [facility] [place] [facility] [address] [facility] [id number] [place] [address] Dec, [facility] [place] [facility] [address] [id number] [place] [address] Nov, [facility] [place] [facility] [address] [id number] [place] [address] Nov, [facility] [place] [facility] [address] [id number] [place] [address] Nov, [facility] [place] [facility] [address] [id number] [place] [address] 16 Nov, 2013 [facility] [place] [facility] [address] [id number] [place] [address] Nov, [facility] [place] [facility] [address] [id number] [place] [address] Nov, [facility] [place] [facility] [address] [id number] [place] [address] Nov, [facility] [place] [facility] [address] [id number] [place] [address] Nov, [facility] [place] [facility] [address] [id number] [place] [address] Oct, [facility] [place] [facility] [address] [id number] [place] [address] Oct, [facility] [place] [facility] [id number] [place] [address] Oct, [facility] [place] [facility] [address] [id number] [place] [address] Oct, [facility] [place] [facility] [address] [id number] [place] [address] Oct, [facility] [place] [facility] [address] [id number] [place] [address] Oct, [facility] [place] [facility] [address] [id number] [place] [address] Sep, [facility] [place] [facility] [address] [id number] [place] [address] Sep, [facility] [place] [facility] [address] [id number] [place] [address] Sep, [facility] [place] [facility] [id number] [place] [address] Sep, [facility] [place] [facility] [address] [id number] [place] [address] 05 Sep, 2013 [facility] [place] [facility] [address] [id number] [place] [address] Aug, [facility] [place] [facility] [address] [facility] [id number] [place] [address] Aug, [facility] [place] [facility] [address] [facility] [id number] [place] [address] Aug, [facility] [place] [facility] [address] [id number] [place] [address] Aug, [facility] [place] [facility] [address] [id number] [place] [address] Aug, [facility] [place] [facility] [address] [facility] [id number] [place] [address] Aug, [facility] [place] [facility] [address] [id number] [place] [address] Jul, [facility] [place] [facility] [address] [id number] [place] [address] Jul, [facility] [place] [facility] [address] [id number] [place] [address] Jul, [facility] [place] [facility] [address] [id number] [place] [address] Jun, [facility] [place] [facility] [address] [id number] [place] [address] Jun, [facility] [place] [facility] [address] [id number] [place] [address] May, [facility] [place] [facility] [address] [id number] [place] [address] May, [facility] [place] [facility] [address] [id number] [place] [address] Apr, [facility] [place] [facility] [address] [id number] [place] [address] Apr, [facility] [place] [facility] [address] [id number] [place] [address] Apr, [facility] [place] [facility] [address] [id number] [place] [address] March, [facility] [place] [facility] [address] [id number] [place] [address] Feb, [facility] [address] [facility] [id number] [place] [address] Feb, [facility] [address] [id number] [place] [address] 28 Jan, 2013 [facility] [address] [id number] [place] [address] Jan, [facility] [address] [id number] [place] [address] Jan, [facility] [address] [id number] [place] [address] Jan, [facility] [address] [id number] [place] [address] Jan, [facility] [address] [id number] [place] [address] Dec, [facility] [address] [id number] [place] [address] Dec, [facility] [address] [id number] [place] [address] Dec, [facility] [address] [id number] [place] [address] Dec, [facility] [address] [id number] [place] [address] Dec, [facility] [address] [id number] [place] [address] Dec, [facility] [address] [place] [id number] 14 Nov, 2012 [facility] [place] [facility] [address] [id number] [place] [address] Nov, [facility] [place] [facility] [address] [id number] [place] [address] 10 Nov, 2012 [facility] [address] [id number] [place] [address] Nov, [facility] [place] [facility] [address] [id number] [place] [address] Nov, [facility] [place] [facility] [address] [id number] [place] [address] Oct, [facility] [place] [facility] [address] [id number] [place] [address] Oct, [facility] [place] [facility] [address] [id number] [place] [address] Oct, [facility] [place] [facility] [address] [id number] [place] [address] Oct, [facility] [place] [facility] [address] [id number] [place] [address] Oct, [facility] [place] [facility] [address] [id number] [place] [address] Oct, [facility] [place] [facility] [address] [id number] [place] [address] Oct, [facility] [place] [facility] [address] [id number] [place] [address] Oct, [facility] [place] [facility] [address] [id number] [place] [address] Sep, [facility] [place] [facility] [address] [id number] [place] [address] Sep, [facility] [place] [facility] [address] [id number] [place] [address] Sep, [facility] [place] [facility] [address] [id number] [place] [address] Sep, [facility] [place] [facility] [address] [id number] [place] [address] Sep, [facility] [place] [facility] [address] [id number] [place] [address] Sep, [facility] [place] [facility] [address] [id number] [place] [address] Sep, [facility] [place] [facility] [address] [id number] [place] [address] Sep, [facility] [id number] [place] [address] Sep, [facility] [id number] [place] [address] Sep, [facility] [id number] [place] [address] Sep, [facility] [id number] [place] [address] Sep, [facility] [id number] [place] [address] Sep, [facility] [id number] [place] [address] Sep, [facility] [id number] [place] [address] Sep, [facility] [id number] [place] [address] Sep, IMMUNIZATIONS No Known Immunizations SOCIAL HISTORY [...]
--- OUTSIDE RECORDS SUMMARY | 2020-04-17 21:24 | XMS REPORT ---
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 Active 44343517 Problem Other chronic pain G89.29 Active 8 5707625 Problem Hypertension, essential I10 Active 01092216 Problem Vitamin D deficiency E55.9 Active 30020048 Problem Mood disorder F39 Active 741288 05 Problem Type 1 diabetes mellitus with hyperglycemia E10.65 Active [id number] Problem Type 1 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 Active 90030805 Problem Chronic fatigue R53.82 Active 8422 9001 Problem Controlled diabetes mellitus type 1 without complications E10.9 Active 12958723 ALLERGIES No Information ENCOUNTERS Encounter Location Date Diagnosis [place] [address] [address] Dec, Type 1 diabetes mellitus with other diab etic neurological complication E10.49 [place] [id number] [address] Nov, Type 1 diabetes mellitus with diabetic p olyneuropathy E10.42 ; Mood disorder F39 ; Vitamin D deficiency E55.9 and Renal insufficiency N28.9 [place] [address] [address] Nov, Type 1 diabetes mellitus with other diab etic neurological complication E10.49 [place] [address] [address] Oct, Other chronic pain G89.29 [place] [address] [address] Oct, Type 1 diabetes mellitus with other diab etic neurological complication E10.49 [facility] [address] [place] [id number] [place] [address] Oct, [facility] [address] [address] Aug, Type 1 diabetes mellitus with other diab etic neurological complication E10.49 [facility] [address] [address] 14 Aug, 2019 Encounter for immunization Z23 [facility] [address] [address] Aug, Vitamin D deficiency E55.9 [facility] [address] [address] Jul, Type 1 diabetes mellitus with other diab etic neurological complication E10.49 [facility] [address] [address] Jul, Type 1 diabetes mellitus with hyperglyce uma E10.65 [facility] [address] [address] Jun, Type 1 diabetes mellitus with other diab etic neurological complication E10.49 [facility] [address] [address] May, [facility] [address] [address] May, [facility] [address] [address] May, Other chronic pain G89.29 [facility] [address] [address] May, [facility] [address] [address] May, Type 1 diabetes mellitus with other diab etic neurological complication E10.49 [facility] [address] [place] [address] Apr, [facility] [address] [id number] [place] [address] Apr, Type 1 diabetes mellitus with other diab etic neurological complication E10.49 [facility] [address] [id number] [place] [address] Apr, Encounter for Medicare annual wellness e xam Z00.00 [place] [address] [place] [id number] [place] [address] March, Encounter for Medicare annual wellness e xam Z00.00 and Type 1 diabetes mellitus with other diabetic neurological complication E10.49 [place] [address] [place] [id number] [place] [address] Feb, Type 1 diabetes mellitus with other diab etic neurological complication E10.49 [place] [address] [place] [id number] [place] [address] Feb, Encounter for Medicare annual wellness e xam Z00.00 ; Mood disorder F39 ; Type 1 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 ; Hypertension, essential I10 and Chronic fatigue R53.82 [place] [address] [place] [id number] [place] [address] Jan, Type 1 diabetes mellitus with other diab etic neurological complication E10.49 [place] [address] [place] [id number] [place] [address] Jan, [facility] [address] [place] [id number] [place] [address] Jan, Other chronic pain G89.29 [facility] [address] [place] [id number] [place] [address] Dec, [facility] [address] [place] [id number] [place] [address] Dec, Type 1 diabetes mellitus with other diab etic neurological complication E10.49 [place] [address] [id number] [place] [address] 05 Dec, 2018 Other chronic pain G89.29 [facility] [address] [address] Nov, [facility] [address] [id number] Nov, Caries K02.9 [place] [address] [address] Nov, Type 1 diabetes mellitus with other diab etic neurological complication E10.49 [place] [address] [address] Nov, Controlled diabetes mellitus type 1 with out complications E10.9 ; Other chronic pain G89.29 and Pain in left knee M25.562 [facility] [address] [id number] Oct, Dental examination Z01.20 [place] [address] [address] 14 Oct, 2018 Cutaneous abscess of unspecified foot L0 2.619 and Cellulitis of unspecified part of limb L03.119 [place] [address] [address] Oct, [place] [address] [address] 10 Oct, 2018 Type 1 diabetes mellitus with other diab etic neurological complication E10.49 [facility] [address] [id number] Oct, Dental examination Z01.20 and Caries K02 .9 [place] [address] [address] 04 Oct, 2018 Cutaneous abscess of left foot L02.612 a nd Cellulitis of left lower limb L03.[address] [address] Oct, Dental examination Z01.20 and Pain, dent al K08.89 [facility] [address] [facility] [id number] [place] [address] Sep, Left foot pain M79.672 and L eft anterior knee pain M25.562 [facility] [address] [address] Sep, Type 1 diabetes mellitus with other diab etic neurological complication E10.49 [facility] [address] [address] Sep, [facility] [address] [address] Aug, Type 1 diabetes mellitus with other diab etic neurological complication E10.49 [place] [address] [address] 10 Aug, 2018 Encounter for immunization Z23 [place] [address] [address] 05 Aug, 2018 Type 1 diabetes mellitus with hyperglyce uma E10.65 [place] [address] [address] Jul, Type 1 diabetes mellitus with hyperglyce uma E10.65 [facility] [address] [address] 19 Jul, 2018 [facility] [address] [address] 18 Jul, 2018 [facility] [address] [address] 17 Jul, 2018 Type 1 diabetes mellitus with other diab etic neurological complication E10.49 [facility] [address] [address] 17 Jul, 2018 Type 1 diabetes mellitus with other diab etic neurological complication E10.49 and Mood disorder F39 [facility] [address] [address] Jun, [facility] [address] [address] Jun, Type 1 diabetes mellitus with other diab etic neurological complication E10.49 and Chronic fatigue R53.82 [place] [address] [place] [address] May, Type 1 diabetes mellitus with other diab etic neurological complication E10.49 [facility] [address] [id number] [place] [address] May, [facility] [address] [id number] [place] [address] May, [facility] [address] [place] [id number] [place] [address] Apr, [facility] [address] [place] [id number] [place] [address] Apr, Type 1 diabetes mellitus with other diab etic neurological complication E10.49 [facility] [address] [place] [id number] [place] [address] March, [facility] [address] [place] [id number] [place] [address] Feb, [facility] [address] [place] [id number] [place] [address] Feb, Type 1 diabetes mellitus with other diab etic neurological complication E10.49 ; Tobacco abuse Z72.0 and Tobacco abuse counseling Z71.6 [facility] [address] [place] [id number] [place] [address] Jan, Type 1 diabetes mellitus with hyperglyce uma E10.65 [facility] [address] [place] [id number] [place] [address] Jan, [facility] [address] [place] [id number] [place] [address] Dec, Tobacco abuse Z72.0 [facility] [address] [place] [id number] [place] [address] Dec, Type 1 diabetes mellitus with hyperglyce uma E10.65 [facility] [address] [place] [id number] [place] [address] Dec, Type 1 diabetes mellitus with hyperglyce uma E10.65 ; Tobacco abuse Z72.0 and Tobacco abuse counseling Z71.6 [facility] [address] [place] [id number] [place] [address] Nov, Type 1 diabetes mellitus with hyperglyce uma E10.65 [facility] [address] [place] [id number] [place] [address] Oct, Type 1 diabetes mellitus with hyperglyce uma E10.65 [facility] [address] [place] [id number] [place] [address] Oct, Type 1 diabetes mellitus with hyperglyce uma E10.65 [facility] [address] [place] [id number] [place] [address] Sep, Type 1 diabetes mellitus with hyperglyce uma E10.65 [place] [address] [place] [id number] [place] [address] Aug, Type 1 diabetes mellitus with hyperglyce uma E10.65 [place] [address] [address] Aug, [facility] [address] [address] Aug, Type 1 diabetes mellitus with hyperglyce uma E10.65 [place] [address] [place] [id number] [place] [address] Aug, Encounter for immunization Z23 [facility] [address] [place] [id number] [place] [address] Aug, Type 1 diabetes mellitus with hyperglyce uma E10.65 [facility] [address] [place] [id number] [place] [address] Jul, Type 1 diabetes mellitus with hyperglyce uma E10.65 [facility] [address] [place] [id number] [place] [address] Jul, Type 1 diabetes mellitus with hyperglyce uma E10.65 [facility] [address] [place] [id number] [place] [address] May, Type 1 diabetes mellitus with hyperglyce uma E10.65 [facility] [address] [place] [id number] [place] [address] May, [place] [address] [place] [id number] [place] [address] Apr, [facility] [address] [address] Apr, Type 1 diabetes mellitus with hyperglyce uma E10.65 [facility] [address] [address] March, [facility] [address] [address] March, [facility] [address] [address] Jan, [facility] [address] [address] Jan, [facility] [address] [address] Jan, Type 1 diabetes mellitus with diabetic p olyneuropathy E10.42 [facility] [address] [address] Jan, Type 1 diabetes mellitus with hyperglyce uma E10.65 ; Excessive cerumen in both ear canals H61.23 and Controlled diabetes mellitus type 1 without complications E10.9 [facility] [address] [address] Dec, [facility] [address] [address] Dec, [facility] [address] [address] Dec, [facility] [address] [address] Dec, [facility] [address] [address] Nov, [facility] [address] [address] Nov, [facility] [address] [address] Oct, Type 1 diabetes mellitus with hyperglyce uma E10.65 [facility] [address] [address] Sep, [facility] [address] [address] Sep, [facility] [address] [address] Sep, Controlled diabetes mellitus type 1 with out complications E10.9 [facility] [address] [address] Sep, [facility] [address] [id number] Aug, Dental caries K02.9 [facility] [address] [address] Aug, Type 1 diabetes mellitus with diabetic p olyneuropathy E10.42 [facility] [address] [address] Aug, [facility] [address] [address] Aug, [facility] [address] [address] Aug, [facility] [address] [address] Jul, Type 1 diabetes mellitus with hyperglyce uma E10.65 [facility] [address] [address] Jul, Type 1 diabetes mellitus with hyperglyce uma E10.65 ; Tooth pain K08.8 and Encounter for immunization Z23 [facility] [address] [id number] 08 Jul, 2016 Dental examination Z01.20 [facility] [address] [address] 08 Jul, 2016 [facility] [address] [address] Jul, [facility] [address] [id number] [place] [address] Jul, [facility] [address] [id number] [place] [address] Jun, [facility] [address] [id number] [place] [address] May, [facility] [address] [id number] [place] [address] Apr, [facility] [address] [id number] [place] [address] Apr, [facility] [address] [id number] [place] [address] Apr, [facility] [address] [id number] [place] [address] March, [facility] [address] [place] [id number] [place] [address] March, [facility] [address] [id number] [place] [address] Feb, [facility] [address] [id number] [place] [address] Feb, [facility] [address] [id number] [place] [address] Feb, Type 1 diabetes mellitus with hyperglyce uam E10.65 [facility] [address] [id number] [place] [address] Jan, [facility] [address] [id number] [place] [address] Jan, [facility] [address] [place] [id number] [place] [address] Jan, [facility] [address] [id number] [place] [address] Jan, [facility] [address] [place] [id number] [place] [address] Dec, [facility] [address] [address] Nov, [facility] [address] [address] Nov, [facility] [address] [address] Oct, [facility] [address] [address] Oct, Type 1 diabetes mellitus with diabetic a utonomic (poly)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 ; Type 1 diabetes mellitus with hyperglycemia E10.65 ; Gastroparesis K31.84 and Esophageal stricture K22.2 [facility] [address] [address] Oct, [facility] [address] [address] Sep, [facility] [address] [address] Sep, Type 1 diabetes mellitus with other diab etic neurological complication E10.49 [facility] [address] [address] Aug, Encounter for immunization Z23 [facility] [address] [address] Aug, [facility] [address] [address] Aug, [facility] [address] [address] Jul, [facility] [address] [address] Jul, [facility] [address] [address] Jun, [facility] [address] [address] Jun, [facility] [address] [address] Jun, [facility] [address] [place] [address] [id number] [place] [address] May, [facility] [address] [address] May, [facility] [address] [address] May, Diabetes type 1, controlled 250.01 [facility] [address] [address] May, [facility] [address] [address] May, [facility] [address] [id number] Apr, Dental examination V72.2 [facility] [address] [address] Apr, [facility] [address] [address] Apr, [facility] [address] [address] Apr, [facility] [address] [address] Apr, [facility] [address] [address] Apr, [facility] [address] [id number] Apr, Dental examination V72.2 [facility] [address] [address] Apr, [facility] [address] [address] Apr, [facility] [address] [address] March, Diabetes mellitus type 1 250.01 [facility] [address] [place] [address] March, [facility] [address] [facility] [id number] [place] [address] Feb, [facility] [address] [id number] [place] [address] Feb, [facility] [address] [id number] [place] [address] Jan, [facility] [address] [id number] [place] [address] Jan, [facility] [address] [id number] [place] [address] Jan, [facility] [address] [id number] [place] [address] Jan, [facility] [address] [id number] [place] [address] Dec, [facility] [address] [id number] [place] [address] Dec, [facility] [address] [id number] [place] [address] Nov, [facility] [address] [id number] [place] [address] Nov, [facility] [address] [id number] [place] [address] Nov, [facility] [address] [id number] [place] [address] Nov, [facility] [address] [id number] [place] [address] Nov, [facility] [address] [id number] [place] [address] Nov, [facility] [address] [id number] [place] [address] Nov, [facility] [address] [id number] [place] [address] Oct, [facility] [address] [id number] [place] [address] Oct, [facility] [address] [id number] [place] [address] Sep, [facility] [address] [id number] [place] [address] Aug, [facility] [address] [id number] [place] [address] Aug, [facility] [address] [id number] [place] [address] Aug, [facility] [address] [id number] [place] [address] Aug, [facility] [address] [id number] [place] [address] Aug, [facility] [address] [id number] [place] [address] Aug, [facility] [address] [id number] [place] [address] Aug, [facility] [address] [id number] [place] [address] Aug, [facility] [address] [id number] [place] [address] Aug, [facility] [address] [id number] [place] [address] Aug, [facility] [address] [id number] [place] [address] Aug, [facility] [address] [id number] [place] [address] Aug, [facility] [address] [id number] [place] [address] Aug, [facility] [address] [id number] [place] [address] Aug, [facility] [address] [id number] [place] [address] Jul, 2013 [facility] [place] [facility] [address] [id number] [facility] [place] [address] Jul, [facility] [place] [facility] [address] [facility] [id number] [facility] [place] [address] Jul, [facility] [place] [facility] [address] [facility] [id number] [facility] [place] [address] Jul, [facility] [place] [facility] [address] [id number] [facility] [place] [address] Jun, [facility] [place] [facility] [address] [facility] [id number] [place] [address] Jun, [facility] [place] [facility] [address] [facility] [id number] [place] [address] Jun, [facility] [place] [facility] [address] [facility] [id number] [place] [address] Jun, [facility] [place] [facility] [address] [id number] [facility] [place] [address] May, [facility] [place] [facility] [address] [facility] [id number] [place] [address] May, [facility] [place] [facility] [address] [facility] [id number] [facility] [place] [address] May, [facility] [place] [facility] [address] [facility] [id number] [place] [address] May, [facility] [place] [facility] [address] [id number] [place] [address] May, [facility] [place] [facility] [address] [facility] [id number] [place] [address] May, 2013 [facility] [place] [facility] [address] [id number] [place] [address] May, [facility] [place] [facility] [address] [facility] [id number] [place] [address] May, [facility] [place] [facility] [address] [facility] [id number] [place] [address] May, [facility] [place] [facility] [address] [id number] [place] [address] May, [facility] [place] [facility] [address] [id number] [place] [address] May, [facility] [place] [facility] [address] [facility] [id number] [place] [address] May, [facility] [place] [facility] [address] [id number] [place] [address] May, [facility] [place] [facility] [address] [facility] [id number] [place] [address] Apr, [facility] [place] [facility] [address] [id number] [place] [address] Apr, [facility] [place] [facility] [address] [id number] [place] [address] Apr, [facility] [place] [facility] [address] [id number] [place] [address] Apr, [facility] [place] [facility] [address] [id number] [place] [address] Apr, [facility] [place] [facility] [address] [facility] [id number] [place] [address] Apr, [facility] [place] [facility] [address] [id number] [place] [address] Apr, [facility] [place] [facility] [address] [id number] [place] [address] Apr, [facility] [place] [facility] [address] [id number] [place] [address] Apr, [facility] [place] [facility] [address] [address] [id number] [place] [address] Apr, [facility] [address] [id number] [place] [address] Apr, [facility] [address] [id number] [place] [address] Apr, [facility] [address] [id number] [place] [address] Apr, [facility] [address] [id number] [place] [address] Apr, [facility] [address] [id number] [place] [address] March, [facility] [address] [id number] [place] [address] March, [facility] [address] [id number] [place] [address] March, [facility] [address] [id number] [place] [address] March, [facility] [address] [id number] [place] [address] March, [facility] [address] [id number] [place] [address] March, [facility] [address] [id number] [place] [address] March, [facility] [address] [id number] [place] [address] March, [facility] [address] [id number] [place] [address] March, [facility] [address] [id number] [place] [address] March, [facility] [address] [id number] [place] [address] Feb, [facility] [address] [id number] [place] [address] Feb, [facility] [address] [id number] [place] [address] Feb, [facility] [address] [id number] [place] [address] Feb, [facility] [address] [id number] [place] [address] Feb, [facility] [address] [id number] [place] [address] Feb, [facility] [address] [facility] [id number] [facility] [place] [address] Feb, [facility] [address] [facility] [id number] [facility] [place] [address] Feb, [facility] [address] [facility] [id number] [place] [address] Jan, [facility] [address] [facility] [id number] [place] [address] Jan, [facility] [address] [facility] [id number] [place] [address] Jan, [facility] [address] [id number] [place] [address] Jan, [facility] [address] [id number] [place] [address] Jan, [facility] [address] [id number] [place] [address] Jan, [facility] [address] [facility] [id number] [place] [address] Jan, [facility] [address] [id number] [place] [address] Jan, [facility] [address] [id number] [place] [address] Jan, [facility] [address] [id number] [place] [address] Jan, [facility] [address] [facility] [id number] [place] [address] Dec, [facility] [address] [facility] [id number] [place] [address] Dec, [facility] [address] [id number] [place] [address] Nov, [facility] [address] [id number] [place] [address] Nov, [facility] [address] [id number] [place] [address] 16 Nov, 2013 [facility] [address] [id number] [place] [address] Nov, [facility] [address] [id number] [place] [address] Nov, [facility] [address] [id number] [place] [address] Nov, [facility] [address] [id number] [place] [address] Nov, [facility] [address] [id number] [place] [address] Nov, [facility] [address] [id number] [place] [address] Oct, [facility] [address] [id number] [place] [address] Oct, [facility] [address] [id number] [place] [address] Oct, [facility] [address] [id number] [place] [address] Oct, [facility] [address] [id number] [place] [address] Oct, [facility] [address] [id number] [place] [address] Oct, [facility] [address] [id number] [place] [address] Sep, [facility] [address] [id number] [place] [address] Sep, [facility] [id number] [place] [address] Sep, [facility] [address] [id number] [place] [address] Sep, [facility] [address] [id number] [place] [address] Sep, [facility] [address] [facility] [id number] [place] [address] Aug, [facility] [address] [id number] [place] [address] Aug, [facility] [address] [id number] [place] [address] Aug, [facility] [address] [id number] [place] [address] Aug, [facility] [address] [id number] [place] [address] Aug, [facility] [address] [id number] [place] [address] Aug, [facility] [address] [id number] [place] [address] Jul, [facility] [address] [id number] [place] [address] Jul, [facility] [address] [id number] [place] [address] Jul, [facility] [address] [id number] [place] [address] Jun, [facility] [address] [id number] [place] [address] Jun, [facility] [address] [id number] [place] [address] May, [facility] [address] [id number] [place] [address] May, [facility] [address] [id number] [place] [address] Apr, [facility] [address] [id number] [place] [address] Apr, [facility] [address] [id number] [place] [address] Apr, [facility] [address] [id number] [place] [address] March, [facility] [address] [facility] [id number] [facility] [place] [address] Feb, [facility] [address] [id number] [facility] [place] [address] Feb, [facility] [address] [id number] [facility] [place] [address] Jan, [facility] [address] [id number] [facility] [place] [address] Jan, [facility] [address] [id number] [facility] [place] [address] Jan, [facility] [address] [id number] [facility] [place] [address] 08 Jan, 2013 [facility] [address] [id number] [place] [address] Jan, [facility] [address] [id number] [facility] [place] [address] Dec, [facility] [address] [id number] [facility] [place] [address] Dec, [facility] [address] [id number] [place] [address] Dec, [facility] [address] [id number] [place] [address] Dec, [facility] [address] [id number] [place] [address] Dec, [facility] [address] [id number] [place] [address] 05 Dec, 2012 [facility] [address] [place] [id number] Nov, [facility] [address] [id number] [place] [address] Nov, [facility] [address] [id number] [place] [address] Nov, [facility] [address] [id number] [place] [address] Nov, [facility] [address] [id number] [place] [address] Nov, [facility] [address] [id number] [place] [address] Oct, [facility] [address] [id number] [place] [address] Oct, [facility] [address] [id number] [place] [address] Oct, [facility] [address] [id number] [place] [address] Oct, [facility] [address] [id number] [place] [address] Oct, [facility] [address] [id number] [place] [address] Oct, [facility] [address] [id number] [place] [address] Oct, [facility] [address] [id number] [place] [address] Oct, [facility] [address] [id number] [place] [address] Sep, [facility] [address] [id number] [place] [address] Sep, [facility] [address] [id number] [place] [address] Sep, [facility] [address] [id number] [place] [address] Sep, [facility] [address] [id number] [place] [address] Sep, [facility] [address] [id number] [place] [address] Sep, [facility] [address] [id number] [place] [address] Sep, [facility] [address] [id number] [place] [address] Sep, [facility] [id number] [place] [address] Sep, [facility] [id number] [place] [address] Sep, [facility] [id number] [place] [address] Sep, [facility] [id number] [place] [address] Sep, [facility] [id number] [place] [address] Sep, [facility] [id number] [place] [address] Sep, [facility] [id number] [place] [address] Sep, [facility] [address] [id number] [place] [address] Sep, IMMUNIZATIONS No Known Immunizations SOCIAL HISTORY [...]
--- OUTSIDE RECORDS SUMMARY | 2020-04-17 21:24 | XMS REPORT ---
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 Active 03283901 Problem Other chronic pain G89.29 Active 8 6724520 Problem Hypertension, essential I10 Active 82729358 Problem Vitamin D deficiency E55.9 Active 74133730 Problem Mood disorder F39 Active 813622 05 Problem Type 1 diabetes mellitus with hyperglycemia E10.65 Active 815100849207655 Problem Type 1 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 Active 97830996 Problem Chronic fatigue R53.82 Active 8422 9001 Problem Controlled diabetes mellitus type 1 without complications E10.9 Active 83677751 ALLERGIES No Information ENCOUNTERS Encounter Location Date Diagnosis [place] [address] [address] Nov, Type 1 diabetes mellitus with diabetic p olyneuropathy E10.42 ; Mood disorder F39 ; Vitamin D deficiency E55.9 and Renal insufficiency N28.9 [place] [address] [address] Nov, Type 1 diabetes mellitus with other diab etic neurological complication E10.49 [place] [address] [address] Oct, Other chronic pain G89.29 [place] [address] [address] Oct, Type 1 diabetes mellitus with other diab etic neurological complication E10.49 [place] [address] [place] [id number] [place] [address] Oct, [facility] [address] [address] Aug, Type 1 diabetes mellitus with other diab etic neurological complication E10.49 [facility] [address] [address] 14 Aug, 2019 Encounter for immunization Z23 [facility] [address] [address] 08 Aug, 2019 Vitamin D deficiency E55.9 [facility] [address] [address] Jul, Type 1 diabetes mellitus with other diab etic neurological complication E10.49 [facility] [address] [address] Jul, Type 1 diabetes mellitus with hyperglyce uma E10.65 [facility] [address] [address] Jun, Type 1 diabetes mellitus with other diab etic neurological complication E10.49 [facility] [address] [address] May, [facility] [address] [address] May, [facility] [address] [address] May, Other chronic pain G89.29 [facility] [address] [place] [id number] [place] [address] May, [facility] [address] [address] May, Type 1 diabetes mellitus with other diab etic neurological complication E10.49 [facility] [address] [place] [id number] [place] [address] Apr, [facility] [address] [address] Apr, Type 1 diabetes mellitus with other diab etic neurological complication E10.49 [facility] [address] [id number] [place] [address] Apr, Encounter for Medicare annual wellness e xam Z00.00 [facility] [address] [id number] [place] [address] March, Encounter for Medicare annual wellness e xam Z00.00 and Type 1 diabetes mellitus with other diabetic neurological complication E10.49 [facility] [address] [place] [id number] [place] [address] Feb, Type 1 diabetes mellitus with other diab etic neurological complication E10.49 [facility] [address] [place] [id number] [place] [address] Feb, Encounter for Medicare annual wellness e xam Z00.00 ; Mood disorder F39 ; Type 1 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 ; Hypertension, essential I10 and Chronic fatigue R53.82 [facility] [address] [place] [id number] [place] [address] Jan, Type 1 diabetes mellitus with other diab etic neurological complication E10.49 [facility] [address] [place] [id number] [place] [address] Jan, [facility] [address] [place] [id number] [place] [address] Jan, Other chronic pain G89.29 [facility] [address] [place] [id number] [place] [address] Dec, [facility] [address] [place] [id number] [place] [address] Dec, Type 1 diabetes mellitus with other diab etic neurological complication E10.49 [facility] [address] [place] [id number] [place] [address] 05 Dec, 2018 Other chronic pain G89.29 [facility] [address] [id number] [place] [address] Nov, [facility] [address] [id number] Nov, Caries K02.9 [place] [address] [address] 15 Nov, 2018 Type 1 diabetes mellitus with other diab etic neurological complication E10.49 [place] [address] [address] 07 Nov, 2018 Controlled diabetes mellitus type 1 with out complications E10.9 ; Other chronic pain G89.29 and Pain in left knee M25.562 [facility] [address] [id number] Oct, Dental examination Z01.20 [place] [address] [address] 14 Oct, 2018 Cutaneous abscess of unspecified foot L0 2.619 and Cellulitis of unspecified part of limb L03.119 [place] [address] [address] Oct, [place] [address] [address] 10 Oct, 2018 Type 1 diabetes mellitus with other diab etic neurological complication E10.49 [facility] [address] [id number] 06 Oct, 2018 Dental examination Z01.20 and Caries K02 .9 [place] [address] [address] 04 Oct, 2018 Cutaneous abscess of left foot L02.612 a nd Cellulitis of left lower limb L03.116 [place] [address] [address] 04 Oct, 2018 Dental examination Z01.20 and Pain, dent al K08.89 [facility] [address] [facility] [id number] [address] Sep, Left foot pain M79.672 and L eft anterior knee pain M25.562 [place] [address] [address] Sep, Type 1 diabetes mellitus with other diab etic neurological complication E10.49 [facility] [address] [address] Sep, [facility] [address] [address] Aug, Type 1 diabetes mellitus with other diab etic neurological complication E10.49 [place] [address] [address] 10 Aug, 2018 Encounter for immunization Z23 [facility] [address] [address] 05 Aug, 2018 Type 1 diabetes mellitus with hyperglyce uma E10.65 [place] [address] [address] 21 Jul, 2018 Type 1 diabetes mellitus with hyperglyce uma E10.65 [place] [address] [address] Jul, [facility] [address] [address] 18 Jul, 2018 [facility] [address] [address] Jul, Type 1 diabetes mellitus with other diab etic neurological complication E10.49 [place] [address] [address] Jul, Type 1 diabetes mellitus with other diab etic neurological complication E10.49 and Mood disorder F39 [facility] [address] [address] Jun, [facility] [address] [address] Jun, Type 1 diabetes mellitus with other diab etic neurological complication E10.49 and Chronic fatigue R53.82 [facility] [address] [address] May, Type 1 diabetes mellitus with other diab etic neurological complication E10.49 [facility] [address] [place] [address] May, [facility] [address] [id number] [place] [address] May, [facility] [address] [id number] [place] [address] Apr, [facility] [address] [id number] [place] [address] Apr, Type 1 diabetes mellitus with other diab etic neurological complication E10.49 [facility] [address] [place] [id number] [place] [address] March, [facility] [address] [place] [id number] [place] [address] Feb, [facility] [address] [place] [id number] [place] [address] Feb, Type 1 diabetes mellitus with other diab etic neurological complication E10.49 ; Tobacco abuse Z72.0 and Tobacco abuse counseling Z71.6 [facility] [address] [place] [id number] [place] [address] Jan, Type 1 diabetes mellitus with hyperglyce uma E10.65 [facility] [address] [place] [id number] [place] [address] Jan, [facility] [address] [place] [id number] [place] [address] Dec, Tobacco abuse Z72.0 [facility] [address] [place] [id number] [place] [address] Dec, Type 1 diabetes mellitus with hyperglyce uma E10.65 [facility] [address] [place] [id number] [place] [address] Dec, Type 1 diabetes mellitus with hyperglyce uma E10.65 ; Tobacco abuse Z72.0 and Tobacco abuse counseling Z71.6 [facility] [address] [place] [id number] [place] [address] Nov, Type 1 diabetes mellitus with hyperglyce uma E10.65 [facility] [address] [place] [id number] [place] [address] Oct, Type 1 diabetes mellitus with hyperglyce uma E10.65 [facility] [address] [address] Oct, Type 1 diabetes mellitus with hyperglyce uma E10.65 [facility] [address] [place] [id number] [place] [address] Sep, Type 1 diabetes mellitus with hyperglyce uma E10.65 [facility] [address] [address] Aug, Type 1 diabetes mellitus with hyperglyce uma E10.65 [facility] [address] [address] Aug, [facility] [address] [address] Aug, Type 1 diabetes mellitus with hyperglyce uma E10.65 [place] [address] [address] Aug, Encounter for immunization Z23 [facility] [address] [address] Aug, Type 1 diabetes mellitus with hyperglyce uma E10.65 [facility] [address] [place] [id number] [place] [address] Jul, Type 1 diabetes mellitus with hyperglyce uma E10.65 [place] [address] [address] Jul, Type 1 diabetes mellitus with hyperglyce uma E10.65 [facility] [address] [address] May, Type 1 diabetes mellitus with hyperglyce uma E10.65 [facility] [address] [address] May, [facility] [address] [address] Apr, [facility] [address] [address] Apr, Type 1 diabetes mellitus with hyperglyce uma E10.65 [facility] [address] [place] [id number] [place] [address] March, [facility] [address] [place] [id number] [place] [address] March, [facility] [address] [address] Jan, [facility] [address] [address] Jan, [facility] [address] [address] Jan, Type 1 diabetes mellitus with diabetic p olyneuropathy E10.42 [facility] [address] [address] Jan, Type 1 diabetes mellitus with hyperglyce uma E10.65 ; Excessive cerumen in both ear canals H61.23 and Controlled diabetes mellitus type 1 without complications E10.9 [facility] [address] [place] [id number] [place] [address] Dec, [facility] [address] [address] Dec, [facility] [address] [address] Dec, [facility] [address] [address] Dec, [facility] [address] [place] [id number] [place] [address] Nov, [facility] [address] [address] Nov, [facility] [address] [place] [id number] [place] [address] Oct, Type 1 diabetes mellitus with hyperglyce uma E10.65 [facility] [address] [address] Sep, [facility] [address] [address] Sep, [facility] [address] [address] Sep, Controlled diabetes mellitus type 1 with out complications E10.9 [facility] [address] [address] Sep, [facility] [address] [id number] Aug, Dental caries K02.9 [facility] [address] [address] Aug, Type 1 diabetes mellitus with diabetic p olyneuropathy E10.42 [facility] [address] [address] Aug, [facility] [address] [address] Aug, [facility] [address] [address] Aug, [facility] [address] [address] Jul, Type 1 diabetes mellitus with hyperglyce uma E10.65 [facility] [address] [address] Jul, 2016 Type 1 diabetes mellitus with hyperglyce uma E10.65 ; Tooth pain K08.8 and Encounter for immunization Z23 [facility] [address] [id number] 08 Jul, 2016 Dental examination Z01.20 [facility] [address] [address] 08 Jul, 2016 [facility] [address] [address] 07 Jul, 2016 [facility] [address] [address] 02 Jul, 2016 [facility] [address] [id number] [place] [address] Jun, [facility] [address] [id number] [place] [address] May, [facility] [address] [id number] [place] [address] Apr, [facility] [address] [id number] [place] [address] Apr, [facility] [address] [id number] [place] [address] Apr, [facility] [address] [id number] [place] [address] March, [facility] [address] [id number] [place] [address] March, [facility] [address] [id number] [place] [address] Feb, [facility] [address] [place] [id number] [place] [address] Feb, [facility] [address] [id number] [place] [address] Feb, Type 1 diabetes mellitus with hyperglyce uma E10.65 [facility] [address] [id number] [place] [address] Jan, [facility] [address] [place] [id number] [place] [address] Jan, [facility] [address] [id number] [place] [address] Jan, [facility] [address] [id number] [place] [address] Jan, [facility] [address] [id number] [place] [address] Dec, [facility] [address] [id number] [place] [address] Nov, [facility] [address] [address] 14 Nov, 2015 [facility] [address] [address] Oct, [facility] [address] [address] Oct, Type 1 diabetes mellitus with diabetic a utonomic (poly)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 ; Type 1 diabetes mellitus with hyperglycemia E10.65 ; Gastroparesis K31.84 and Esophageal stricture K22.2 [facility] [address] [address] Oct, [facility] [address] [address] Sep, [facility] [address] [address] Sep, Type 1 diabetes mellitus with other diab etic neurological complication E10.49 [facility] [address] [address] Aug, Encounter for immunization Z23 [facility] [address] [address] Aug, [facility] [address] [address] Aug, [facility] [address] [address] Jul, [facility] [address] [address] Jul, [facility] [address] [address] Jun, [facility] [address] [address] Jun, [facility] [address] [address] Jun, [facility] [address] [address] May, [facility] [address] [place] [id number] [place] [address] May, [facility] [address] [place] [address] [place] [address] May, Diabetes type 1, controlled 250.01 [facility] [address] [place] [id number] [place] [address] May, [facility] [address] [address] May, [facility] [address] [id number] Apr, Dental examination V72.2 [facility] [address] [place] [address] [place] [address] Apr, [facility] [address] [address] Apr, [facility] [address] [address] Apr, [facility] [address] [address] Apr, [facility] [address] [place] [address] [place] [address] Apr, [facility] [address] [place] [id number] [place] [id number] Apr, Dental examination V72.2 [facility] [address] [place] [address] [place] [address] Apr, [facility] [address] [address] Apr, [facility] [address] [address] March, Diabetes mellitus type 1 250.01 [facility] [address] [place] [address] [place] [address] March, [facility] [address] [address] Feb, [facility] [address] [id number] [place] [address] Feb, [facility] [address] [id number] [place] [address] Jan, [facility] [address] [id number] [place] [address] Jan, [facility] [address] [id number] [place] [address] Jan, [facility] [address] [id number] [place] [address] Jan, [facility] [address] [id number] [place] [address] Dec, [facility] [address] [id number] [place] [address] Dec, [facility] [address] [id number] [place] [address] Nov, [facility] [address] [id number] [place] [address] Nov, [facility] [address] [id number] [place] [address] Nov, [facility] [address] [id number] [place] [address] Nov, [facility] [address] [id number] [place] [address] Nov, [facility] [address] [id number] [place] [address] Nov, [facility] [address] [id number] [place] [address] Nov, [facility] [address] [id number] [place] [address] Oct, [facility] [address] [id number] [place] [address] Oct, [facility] [address] [id number] [place] [address] Sep, [facility] [address] [facility] [id number] [place] [address] Aug, [facility] [address] [facility] [id number] [place] [address] Aug, [facility] [address] [id number] [place] [address] Aug, [facility] [address] [facility] [id number] [place] [address] Aug, [facility] [address] [facility] [id number] [place] [address] Aug, [facility] [address] [id number] [place] [address] Aug, [facility] [address] [id number] [place] [address] Aug, [facility] [address] [id number] [place] [address] Aug, [facility] [address] [id number] [place] [address] Aug, [facility] [address] [id number] [place] [address] Aug, [facility] [address] [id number] [place] [address] Aug, [facility] [address] [id number] [place] [address] Aug, 2013 [facility] [address] [facility] [id number] [place] [address] Aug, 2013 [facility] [address] [id number] [place] [address] Aug, 2013 [facility] [address] [id number] [place] [address] Jul, 2013 [facility] [address] [id number] [place] [address] Jul, 2013 [facility] [address] [id number] [facility] [place] [address] Jul, [facility] [address] [id number] [facility] [place] [address] Jul, [facility] [address] [facility] [id number] [facility] [place] [address] Jun, [facility] [address] [facility] [id number] [place] [address] Jun, [facility] [address] [facility] [id number] [facility] [place] [address] Jun, [facility] [address] [facility] [id number] [facility] [place] [address] Jun, [facility] [address] [facility] [id number] [place] [address] May, [facility] [address] [id number] [place] [address] May, [facility] [address] [facility] [id number] [place] [address] May, [facility] [address] [facility] [id number] [place] [address] May, [facility] [address] [id number] [place] [address] May, [facility] [address] [id number] [place] [address] May, [facility] [address] [facility] [id number] [place] [address] May, [facility] [address] [id number] [place] [address] May, [facility] [address] [id number] [place] [address] May, [facility] [address] [facility] [id number] [place] [address] May, [facility] [address] [id number] [place] [address] May, [facility] [address] [facility] [id number] [place] [address] May, [facility] [address] [facility] [id number] [place] [address] May, [facility] [address] [id number] [place] [address] Apr, [facility] [address] [id number] [place] [address] Apr, [facility] [address] [facility] [id number] [place] [address] Apr, [facility] [address] [id number] [place] [address] Apr, [facility] [address] [id number] [place] [address] Apr, [facility] [address] [id number] [place] [address] Apr, [facility] [address] [id number] [place] [address] Apr, [facility] [address] [id number] [place] [address] Apr, [facility] [address] [id number] [place] [address] Apr, [facility] [address] [id number] [place] [address] Apr, [facility] [address] [id number] [place] [address] Apr, [facility] [address] [id number] [place] [address] Apr, [facility] [address] [id number] [place] [address] Apr, [facility] [address] [id number] [place] [address] Apr, [facility] [address] [id number] [place] [address] March, [facility] [address] [facility] [id number] [facility] [place] [address] March, [facility] [address] [facility] [id number] [facility] [place] [address] March, [facility] [address] [id number] [facility] [place] [address] March, [facility] [address] [id number] [facility] [place] [address] March, [facility] [address] [facility] [id number] [facility] [place] [address] March, [facility] [address] [id number] [place] [address] March, [facility] [address] [id number] [place] [address] March, [facility] [address] [id number] [place] [address] March, [facility] [address] [facility] [id number] [facility] [place] [address] March, [facility] [address] [id number] [facility] [place] [address] Feb, [facility] [address] [id number] [place] [address] Feb, [facility] [address] [id number] [facility] [place] [address] Feb, [facility] [address] [facility] [id number] [facility] [place] [address] Feb, [facility] [address] [id number] [place] [address] Feb, [facility] [address] [id number] [facility] [place] [address] Feb, [facility] [address] [id number] [facility] [place] [address] Feb, [facility] [address] [facility] [id number] [place] [address] Feb, [facility] [address] [facility] [id number] [place] [address] Jan, [facility] [address] [facility] [id number] [place] [address] Jan, [facility] [address] [id number] [place] [address] Jan, [facility] [address] [facility] [id number] [place] [address] Jan, [facility] [address] [id number] [place] [address] Jan, [facility] [address] [id number] [place] [address] Jan, [facility] [address] [id number] [place] [address] Jan, [facility] [address] [id number] [place] [address] Jan, [facility] [address] [id number] [place] [address] Jan, [facility] [address] [id number] [place] [address] Jan, [facility] [address] [id number] [place] [address] Dec, [facility] [address] [id number] [place] [address] Dec, [facility] [address] [facility] [id number] [place] [address] Nov, [facility] [address] [id number] [place] [address] Nov, [facility] [address] [id number] [place] [address] Nov, [facility] [address] [id number] [place] [address] Nov, [facility] [address] [id number] [place] [address] Nov, [facility] [address] [id number] [place] [address] Nov, [facility] [address] [id number] [place] [address] Nov, [facility] [address] [id number] [place] [address] Nov, [facility] [address] [id number] [place] [address] Oct, [facility] [address] [id number] [place] [address] Oct, [facility] [address] [id number] [place] [address] Oct, [facility] [id number] [place] [address] Oct, [facility] [address] [id number] [place] [address] Oct, [facility] [address] [id number] [place] [address] Oct, [facility] [address] [id number] [place] [address] Sep, [facility] [address] [id number] [place] [address] Sep, [facility] [address] [id number] [place] [address] Sep, [facility] [address] [id number] [place] [address] Sep, [facility] [address] [id number] [place] [address] 05 Sep, 2013 [facility] [address] [id number] [place] [address] 30 Aug, 2013 [facility] [address] [id number] [place] [address] Aug, [facility] [address] [facility] [id number] [facility] [place] [address] Aug, [facility] [address] [id number] [place] [address] Aug, [facility] [address] [id number] [place] [address] Aug, [facility] [address] [id number] [place] [address] Aug, [facility] [address] [id number] [place] [address] Jul, [facility] [address] [id number] [place] [address] Jul, [facility] [address] [id number] [place] [address] Jul, [facility] [address] [id number] [place] [address] Jun, [facility] [address] [id number] [place] [address] Jun, [facility] [address] [id number] [place] [address] May, [facility] [address] [id number] [place] [address] May, [facility] [address] [id number] [place] [address] Apr, [facility] [address] [id number] [place] [address] Apr, [facility] [address] [id number] [place] [address] Apr, [facility] [address] [id number] [place] [address] March, [facility] [address] [id number] [place] [address] Feb, [facility] [address] [id number] [place] [address] 04 Feb, 2013 [facility] [address] [id number] [place] [address] 28 Jan, 2013 [facility] [address] [id number] [place] [address] Jan, [facility] [address] [id number] [place] [address] Jan, [facility] [address] [id number] [place] [address] 08 Jan, 2013 [facility] [address] [id number] [place] [address] Jan, [facility] [address] [id number] [place] [address] Dec, [facility] [address] [id number] [place] [address] Dec, [facility] [address] [id number] [place] [address] Dec, [facility] [address] [id number] [place] [address] Dec, [facility] [address] [id number] [place] [address] Dec, [facility] [address] [id number] [place] [address] Dec, [facility] [address] [place] [id number] Nov, 2012 [facility] [address] [id number] [place] [address] Nov, [facility] [address] [id number] [place] [address] Nov, [facility] [address] [id number] [place] [address] Nov, [facility] [address] [id number] [place] [address] Nov, [facility] [address] [id number] [place] [address] Oct, [facility] [address] [id number] [place] [address] Oct, [facility] [address] [id number] [place] [address] Oct, [facility] [address] [id number] [place] [address] Oct, [facility] [address] [id number] [place] [address] Oct, [facility] [address] [id number] [place] [address] Oct, [facility] [address] [id number] [place] [address] Oct, [facility] [address] [id number] [place] [address] Oct, [facility] [address] [id number] [place] [address] Sep, [facility] [address] [id number] [place] [address] Sep, [facility] [address] [id number] [place] [address] Sep, [facility] [address] [id number] [place] [address] Sep, [facility] [address] [id number] [place] [address] Sep, [facility] [address] [id number] [place] [address] Sep, [facility] [address] [id number] [place] [address] Sep, [facility] [address] [id number] [place] [address] Sep, [facility] [address] [id number] [place] [address] Sep, [facility] [id number] [place] [address] Sep, [facility] [id number] [place] [address] Sep, [facility] [id number] [place] [address] Sep, [facility] [address] [address] Sep, [facility] [id number] [place] [address] Sep, [facility] [id number] [place] [address] Sep, [facility] [id number] [place] [address] Sep, IMMUNIZATIONS No Known Immunizations SOCIAL HISTORY Never Assessed REASON FOR VISIT PLAN OF CARE VITAL SIGNS Height 68 in 2014-03-29 Weight 166.2 lbs 2014-03-29 Temperature 98.3 degrees Fahrenheit 2014-03-29 Heart Rate 84 bpm 2014-03-29 Respiratory Rate 16 2014-03-29 Blood pressure systolic 114 mmHg 2014-03-29 Blood pressure diastolic 74 mmHg 2014-03-29 MEDICATIONS Unknown Medications RESULTS No Results PROCEDURES No Known procedures INSTRUCTIONS MEDICATIONS ADMINISTERED No Known Medications MEDICAL (GENERAL) HISTORY Type Description Date Medical History hypertension Medical History type I diabetes Medical History chronic renal insufficiency Surgical History gastric pacemaker 2008 Hospitalization History nausea 2011
--- OUTSIDE RECORDS SUMMARY | 2020-04-17 21:25 | XMS REPORT ---
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 Active 70339479 Problem Other chronic pain G89.29 Active 8 1425242 Problem Hypertension, essential I10 Active 36912854 Problem Vitamin D deficiency E55.9 Active 43559956 Problem Mood disorder F39 Active 110573 05 Problem Type 1 diabetes mellitus with hyperglycemia E10.65 Active [id number] Problem Type 1 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 Active 97830608 Problem Chronic fatigue R53.82 Active 8422 9001 Problem Controlled diabetes mellitus type 1 without complications E10.9 Active 55401761 ALLERGIES No Information ENCOUNTERS Encounter Location Date Diagnosis [place] [address] [address] Nov, Type 1 diabetes mellitus with diabetic p olyneuropathy E10.42 ; Mood disorder F39 ; Vitamin D deficiency E55.9 and Renal insufficiency N28.9 [place] [address] [address] Nov, Type 1 diabetes mellitus with other diab etic neurological complication E10.49 [place] [address] [address] Oct, Other chronic pain G89.29 [place] [address] [address] Oct, Type 1 diabetes mellitus with other diab etic neurological complication E10.49 [place] [address] [address] Oct, [facility] [address] [place] [address] [id number] [place] [address] Aug, Type 1 diabetes mellitus with other diab etic neurological complication E10.49 [facility] [id number] [place] [address] 14 Aug, 2019 Encounter for immunization Z23 [facility] [id number] [place] [address] 08 Aug, 2019 Vitamin D deficiency E55.9 [facility] [id number] [place] [address] Jul, Type 1 diabetes mellitus with other diab etic neurological complication E10.49 [facility] [id number] [place] [address] Jul, Type 1 diabetes mellitus with hyperglyce uma E10.65 [facility] [address] [address] [id number] [place] [address] Jun, Type 1 diabetes mellitus with other diab etic neurological complication E10.49 [facility] [id number] [place] [address] May, [facility] [address] [address] May, [facility] [id number] [place] [address] May, Other chronic pain G89.29 [facility] [address] [id number] [place] [address] May, [facility] [id number] [place] [address] May, Type 1 diabetes mellitus with other diab etic neurological complication E10.49 [facility] [id number] [place] [address] Apr, [facility] [id number] [place] [address] Apr, Type 1 diabetes mellitus with other diab etic neurological complication E10.49 [facility] [id number] [place] [address] Apr, Encounter for Medicare annual wellness e xam Z00.00 [place] [address] [address] [id number] [place] [address] March, Encounter for Medicare annual wellness e xam Z00.00 and Type 1 diabetes mellitus with other diabetic neurological complication E10.49 [place] [address] [address] [id number] [place] [address] Feb, Type 1 diabetes mellitus with other diab etic neurological complication E10.49 [place] [address] [address] [id number] [place] [address] Feb, Encounter for Medicare annual wellness e xam Z00.00 ; Mood disorder F39 ; Type 1 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 ; Hypertension, essential I10 and Chronic fatigue R53.82 [place] [address] [address] [id number] [place] [address] Jan, Type 1 diabetes mellitus with other diab etic neurological complication E10.49 [facility] [id number] [place] [address] Jan, [facility] [address] [address] [id number] [place] [address] Jan, Other chronic pain G89.29 [place] [address] [id number] [place] [address] Dec, [facility] [address] [address] [id number] [place] [address] Dec, Type 1 diabetes mellitus with other diab etic neurological complication E10.49 [facility] [address] [address] [id number] [place] [address] 05 Dec, 2018 Other chronic pain G89.29 [facility] [address] [address] [id number] [place] [address] Nov, [facility] [address] [facility] [place] [id number] Nov, Caries K02.9 [place] [address] [address] Nov, Type 1 diabetes mellitus with other diab etic neurological complication E10.49 [place] [address] [address] Nov, Controlled diabetes mellitus type 1 with out complications E10.9 ; Other chronic pain G89.29 and Pain in left knee M25.562 [facility] [address] [id number] Oct, Dental examination Z01.20 [place] [address] [address] 14 Oct, 2018 Cutaneous abscess of unspecified foot L0 2.619 and Cellulitis of unspecified part of limb L03.119 [place] [address] [address] 11 Oct, 2018 [place] [address] [address] 10 Oct, 2018 Type 1 diabetes mellitus with other diab etic neurological complication E10.49 [facility] [address] [id number] Oct, Dental examination Z01.20 and Caries K02 .9 [place] [address] [address] 04 Oct, 2018 Cutaneous abscess of left foot L02.612 a nd Cellulitis of left lower limb L03.116 [place] [address] [address] Oct, Dental examination Z01.20 and Pain, dent al K08.89 [facility] [address] [facility] [id number] [address] [place] [address] Sep, Left foot pain M79.672 and L eft anterior knee pain M25.562 [place] [address] [address] Sep, Type 1 diabetes mellitus with other diab etic neurological complication E10.49 [place] [address] [place] [id number] [place] [address] Sep, [facility] [address] [address] Aug, Type 1 diabetes mellitus with other diab etic neurological complication E10.49 [facility] [address] [place] [id number] [place] [address] 10 Aug, 2018 Encounter for immunization Z23 [facility] [address] [address] 05 Aug, 2018 Type 1 diabetes mellitus with hyperglyce uma E10.65 [facility] [address] [address] 21 Jul, 2018 Type 1 diabetes mellitus with hyperglyce uma E10.65 [facility] [address] [place] [id number] [place] [address] 19 Jul, 2018 [facility] [address] [address] 18 Jul, 2018 [facility] [address] [address] 17 Jul, 2018 Type 1 diabetes mellitus with other diab etic neurological complication E10.49 [facility] [address] [place] [id number] [place] [address] Jul, Type 1 diabetes mellitus with other diab etic neurological complication E10.49 and Mood disorder F39 [facility] [address] [place] [id number] [place] [address] Jun, [facility] [address] [address] Jun, Type 1 diabetes mellitus with other diab etic neurological complication E10.49 and Chronic fatigue R53.82 [facility] [address] [place] [address] [id number] [place] [address] May, Type 1 diabetes mellitus with other diab etic neurological complication E10.49 [facility] [address] [place] [address] [id number] [place] [address] May, [facility] [address] [address] [id number] [place] [address] May, [facility] [address] [place] [address] [id number] [place] [address] Apr, [facility] [address] [place] [address] [id number] [place] [address] Apr, Type 1 diabetes mellitus with other diab etic neurological complication E10.49 [facility] [address] [place] [id number] [place] [address] March, [facility] [address] [place] [id number] [place] [address] Feb, [facility] [address] [address] Feb, Type 1 diabetes mellitus with other diab etic neurological complication E10.49 ; Tobacco abuse Z72.0 and Tobacco abuse counseling Z71.6 [place] [address] [place] [id number] [place] [address] Jan, Type 1 diabetes mellitus with hyperglyce uma E10.65 [place] [address] [place] [id number] [place] [address] Jan, [facility] [address] [place] [id number] [place] [address] Dec, Tobacco abuse Z72.0 [place] [address] [place] [address] [id number] [place] [address] Dec, Type 1 diabetes mellitus with hyperglyce uma E10.65 [place] [address] [place] [id number] [place] [address] Dec, Type 1 diabetes mellitus with hyperglyce uma E10.65 ; Tobacco abuse Z72.0 and Tobacco abuse counseling Z71.6 [place] [address] [place] [id number] [place] [address] Nov, Type 1 diabetes mellitus with hyperglyce uma E10.65 [place] [address] [place] [id number] [place] [address] Oct, Type 1 diabetes mellitus with hyperglyce uma E10.65 [facility] [address] [place] [id number] [place] [address] Oct, Type 1 diabetes mellitus with hyperglyce uma E10.65 [facility] [address] [place] [id number] [place] [address] Sep, Type 1 diabetes mellitus with hyperglyce uma E10.65 [facility] [address] [address] Aug, Type 1 diabetes mellitus with hyperglyce uma E10.65 [facility] [address] [place] [id number] [place] [address] Aug, [place] [address] [address] Aug, Type 1 diabetes mellitus with hyperglyce uma E10.65 [place] [address] [address] Aug, Encounter for immunization Z23 [place] [address] [address] Aug, Type 1 diabetes mellitus with hyperglyce uma E10.65 [place] [address] [place] [id number] [place] [address] Jul, Type 1 diabetes mellitus with hyperglyce uma E10.65 [place] [address] [place] [id number] [place] [address] Jul, Type 1 diabetes mellitus with hyperglyce uma E10.65 [place] [address] [place] [id number] [place] [address] May, Type 1 diabetes mellitus with hyperglyce uma E10.65 [facility] [address] [address] May, [facility] [address] [address] Apr, [facility] [address] [place] [id number] [place] [address] Apr, Type 1 diabetes mellitus with hyperglyce uma E10.65 [facility] [address] [place] [id number] [place] [address] March, [facility] [address] [address] March, [facility] [address] [place] [id number] [place] [address] Jan, [facility] [address] [address] Jan, [facility] [address] [address] Jan, Type 1 diabetes mellitus with diabetic p olyneuropathy E10.42 [facility] [address] [address] Jan, Type 1 diabetes mellitus with hyperglyce uma E10.65 ; Excessive cerumen in both ear canals H61.23 and Controlled diabetes mellitus type 1 without complications E10.9 [facility] [address] [place] [id number] [place] [address] Dec, [facility] [address] [address] Dec, [facility] [address] [address] Dec, [facility] [address] [address] Dec, [facility] [address] [address] Nov, [facility] [address] [place] [id number] [place] [address] Nov, [facility] [address] [address] Oct, Type 1 diabetes mellitus with hyperglyce uma E10.65 [facility] [address] [address] Sep, [facility] [address] [address] Sep, [facility] [address] [address] Sep, Controlled diabetes mellitus type 1 with out complications E10.9 [facility] [address] [address] Sep, [facility] [address] [id number] Aug, Dental caries K02.9 [facility] [address] [address] Aug, Type 1 diabetes mellitus with diabetic p olyneuropathy E10.42 [facility] [address] [address] Aug, [facility] [address] [address] Aug, [facility] [address] [address] Aug, [facility] [address] [address] Jul, Type 1 diabetes mellitus with hyperglyce uma E10.65 [facility] [address] [address] Jul, Type 1 diabetes mellitus with hyperglyce uma E10.65 ; Tooth pain K08.8 and Encounter for immunization Z23 [facility] [address] [id number] Jul, Dental examination Z01.20 [facility] [address] [address] Jul, [facility] [address] [address] Jul, [facility] [address] [address] Jul, [facility] [address] [address] Jun, [facility] [address] [id number] [place] [address] May, [facility] [address] [id number] [place] [address] Apr, [facility] [address] [id number] [place] [address] Apr, [facility] [address] [id number] [place] [address] Apr, [facility] [address] [id number] [place] [address] March, [facility] [address] [id number] [place] [address] March, [facility] [address] [id number] [place] [address] Feb, [facility] [address] [place] [id number] [place] [address] Feb, [facility] [address] [id number] [place] [address] Feb, Type 1 diabetes mellitus with hyperglyce uma E10.65 [facility] [address] [id number] [place] [address] Jan, [facility] [address] [id number] [place] [address] Jan, [facility] [address] [id number] [place] [address] Jan, [facility] [address] [id number] [place] [address] Jan, [facility] [address] [id number] [place] [address] Dec, [facility] [address] [id number] [place] [address] Nov, [facility] [address] [id number] [place] [address] Nov, [facility] [id number] [place] [address] Oct, [facility] [address] [address] Oct, Type 1 diabetes mellitus with diabetic a utonomic (poly)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 ; Type 1 diabetes mellitus with hyperglycemia E10.65 ; Gastroparesis K31.84 and Esophageal stricture K22.2 [facility] [address] [address] Oct, [facility] [address] [address] Sep, [facility] [address] [address] Sep, Type 1 diabetes mellitus with other diab etic neurological complication E10.49 [facility] [address] [address] Aug, Encounter for immunization Z23 [facility] [address] [address] Aug, [facility] [address] [address] Aug, [facility] [address] [address] Jul, [facility] [address] [address] Jul, [facility] [address] [address] Jun, [facility] [address] [address] Jun, [facility] [address] [address] Jun, [facility] [address] [address] May, [facility] [address] [address] May, [facility] [address] [place] [id number] [place] [address] May, Diabetes type 1, controlled 250.01 [facility] [id number] [place] [address] May, [facility] [address] [place] [id number] [place] [address] May, [facility] [address] [place] [id number] [place] [id number] Apr, Dental examination V72.2 [facility] [address] [id number] [place] [address] Apr, [facility] [address] [address] Apr, [facility] [address] [id number] [place] [address] Apr, [facility] [address] [address] Apr, [facility] [address] [place] [id number] [place] [address] Apr, [facility] [address] [place] [id number] [place] [id number] Apr, Dental examination V72.2 [facility] [address] [place] [id number] [place] [address] Apr, [facility] [address] [address] Apr, [facility] [address] [place] [id number] [place] [address] March, Diabetes mellitus type 1 250.01 [facility] [id number] [place] [address] March, [facility] [address] [place] [id number] [place] [address] Feb, [facility] [address] [address] Feb, [facility] [address] [facility] [id number] [place] [address] Jan, [facility] [address] [id number] [place] [address] Jan, [facility] [address] [id number] [place] [address] Jan, [facility] [address] [id number] [place] [address] Jan, [facility] [address] [facility] [id number] [place] [address] Dec, [facility] [address] [id number] [place] [address] Dec, [facility] [address] [id number] [place] [address] Nov, [facility] [address] [id number] [place] [address] Nov, [facility] [address] [id number] [place] [address] Nov, [facility] [address] [id number] [place] [address] Nov, [facility] [address] [id number] [place] [address] Nov, [facility] [address] [id number] [place] [address] Nov, [facility] [address] [id number] [place] [address] Nov, [facility] [address] [id number] [place] [address] Oct, [facility] [address] [id number] [place] [address] Oct, [facility] [address] [id number] [place] [address] Sep, [facility] [address] [id number] [place] [address] Aug, 2013 [facility] [address] [facility] [id number] [place] [address] Aug, 2013 [facility] [address] [id number] [place] [address] Aug, [facility] [address] [id number] [place] [address] Aug, [facility] [address] [id number] [place] [address] Aug, 2013 [facility] [address] [facility] [id number] [place] [address] Aug, [facility] [address] [id number] [place] [address] Aug, 2013 [facility] [address] [id number] [place] [address] Aug, 2013 [facility] [address] [id number] [place] [address] Aug, 2013 [facility] [address] [id number] [place] [address] Aug, [facility] [address] [id number] [place] [address] Aug, 2013 [facility] [address] [id number] [place] [address] Aug, 2013 [facility] [address] [id number] [place] [address] Aug, 2013 [facility] [address] [id number] [place] [address] Aug, 2013 [facility] [address] [id number] [place] [address] Jul, 2013 [facility] [address] [id number] [place] [address] Jul, 2013 [facility] [address] [id number] [place] [address] Jul, [facility] [address] [id number] [place] [address] Jul, [facility] [address] [facility] [id number] [place] [address] Jun, [facility] [address] [facility] [id number] [place] [address] Jun, [facility] [address] [facility] [id number] [place] [address] Jun, [facility] [address] [facility] [id number] [place] [address] Jun, [facility] [address] [id number] [place] [address] May, [facility] [address] [id number] [place] [address] May, [facility] [address] [id number] [place] [address] May, [facility] [address] [facility] [id number] [place] [address] May, [facility] [address] [id number] [place] [address] May, [facility] [address] [id number] [place] [address] May, [facility] [address] [id number] [place] [address] May, [facility] [address] [id number] [place] [address] May, [facility] [address] [facility] [id number] [place] [address] May, [facility] [address] [facility] [id number] [place] [address] May, [facility] [address] [id number] [place] [address] May, [facility] [address] [id number] [place] [address] May, [facility] [address] [facility] [id number] [place] [address] May, [facility] [address] [facility] [id number] [facility] [place] [address] Apr, [facility] [address] [id number] [facility] [place] [address] Apr, [facility] [address] [facility] [id number] [facility] [place] [address] Apr, [facility] [address] [facility] [id number] [facility] [place] [address] Apr, [facility] [address] [id number] [place] [address] Apr, [facility] [address] [id number] [place] [address] Apr, [facility] [address] [id number] [place] [address] Apr, [facility] [address] [id number] [place] [address] Apr, [facility] [address] [id number] [place] [address] Apr, [facility] [address] [id number] [place] [address] Apr, [facility] [address] [id number] [place] [address] Apr, [facility] [address] [facility] [id number] [place] [address] Apr, [facility] [address] [id number] [place] [address] Apr, [facility] [address] [id number] [place] [address] Apr, [facility] [address] [id number] [place] [address] March, [facility] [address] [facility] [id number] [place] [address] March, [facility] [address] [id number] [place] [address] March, [facility] [address] [id number] [place] [address] March, [facility] [address] [id number] [place] [address] March, [facility] [address] [id number] [place] [address] March, [facility] [address] [id number] [place] [address] March, [facility] [address] [id number] [place] [address] March, [facility] [address] [id number] [place] [address] March, [facility] [address] [id number] [place] [address] March, [facility] [address] [id number] [place] [address] Feb, [facility] [address] [id number] [place] [address] Feb, [facility] [address] [id number] [place] [address] Feb, [facility] [address] [id number] [place] [address] Feb, [facility] [address] [id number] [place] [address] Feb, [facility] [address] [id number] [place] [address] Feb, [facility] [address] [id number] [place] [address] Feb, [facility] [address] [id number] [place] [address] Feb, [facility] [address] [id number] [place] [address] Jan, [facility] [address] [id number] [place] [address] Jan, [facility] [address] [id number] [place] [address] Jan, [facility] [address] [id number] [place] [address] Jan, [facility] [address] [id number] [place] [address] Jan, [facility] [address] [id number] [place] [address] Jan, [facility] [address] [id number] [place] [address] Jan, [facility] [address] [id number] [place] [address] Jan, [facility] [address] [id number] [place] [address] Jan, [facility] [address] [id number] [place] [address] Jan, [facility] [address] [id number] [place] [address] Dec, [facility] [address] [id number] [place] [address] Dec, [facility] [address] [id number] [place] [address] Nov, [facility] [address] [id number] [place] [address] Nov, [facility] [address] [id number] [place] [address] Nov, [facility] [address] [id number] [place] [address] Nov, [facility] [address] [id number] [place] [address] Nov, [facility] [address] [id number] [place] [address] Nov, [facility] [address] [id number] [place] [address] Nov, [facility] [address] [id number] [place] [address] Nov, [facility] [address] [id number] [place] [address] Oct, [facility] [address] [id number] [place] [address] Oct, [facility] [address] [id number] [place] [address] Oct, [facility] [address] [id number] [place] [address] Oct, [facility] [address] [id number] [place] [address] Oct, [facility] [address] [id number] [place] [address] Oct, [facility] [address] [id number] [place] [address] Sep, [facility] [address] [id number] [place] [address] Sep, [facility] [address] [id number] [place] [address] Sep, [facility] [address] [id number] [place] [address] Sep, [facility] [address] [id number] [place] [address] Sep, [facility] [address] [id number] [place] [address] Aug, [facility] [address] [id number] [place] [address] Aug, [facility] [address] [facility] [id number] [place] [address] Aug, [facility] [address] [facility] [id number] [place] [address] Aug, [facility] [address] [id number] [place] [address] Aug, [facility] [address] [id number] [place] [address] Aug, [facility] [address] [id number] [place] [address] Jul, [facility] [address] [id number] [place] [address] Jul, [facility] [address] [id number] [place] [address] Jul, [facility] [address] [id number] [place] [address] Jun, [facility] [address] [id number] [place] [address] Jun, [facility] [address] [id number] [place] [address] May, [facility] [address] [id number] [place] [address] May, [facility] [address] [id number] [place] [address] Apr, [facility] [address] [id number] [place] [address] Apr, [facility] [address] [id number] [place] [address] Apr, [facility] [address] [id number] [place] [address] March, [facility] [address] [id number] [place] [address] Feb, [facility] [address] [id number] [place] [address] Feb, [facility] [address] [facility] [id number] [place] [address] Jan, [facility] [address] [facility] [id number] [facility] [place] [address] 20 Jan, 2013 [facility] [address] [facility] [id number] [place] [address] Jan, [facility] [address] [id number] [facility] [place] [address] 08 Jan, 2013 [facility] [address] [facility] [id number] [facility] [place] [address] Jan, [facility] [address] [id number] [place] [address] 28 Dec, [address] [facility] [address] [id number] [place] [address] Dec[facility] [address] [id number] [place] [address] Dec, [facility] [address] [id number] [place] [address] Dec, [facility] [address] [id number] [place] [address] Dec, [facility] [address] [id number] [place] [address] 05 Dec, 2012 [address] [facility] [address] [place] [id number] Nov, [facility] [address] [id number] [place] [address] Nov, [facility] [address] [facility] [id number] [place] [address] Nov, [facility] [address] [id number] [place] [address] Nov, [facility] [address] [id number] [place] [address] Nov, [facility] [address] [id number] [place] [address] Oct, [facility] [address] [id number] [place] [address] Oct, [facility] [address] [id number] [place] [address] Oct, [facility] [address] [id number] [place] [address] Oct, [facility] [address] [id number] [place] [address] Oct, [facility] [address] [id number] [place] [address] Oct, [facility] [address] [id number] [place] [address] Oct, [facility] [address] [id number] [place] [address] Oct, [facility] [address] [id number] [place] [address] Sep, [facility] [address] [id number] [place] [address] Sep, [facility] [address] [id number] [place] [address] Sep, [facility] [address] [id number] [place] [address] Sep, [facility] [address] [id number] [place] [address] Sep, [facility] [address] [id number] [place] [address] Sep, [facility] [address] [id number] [place] [address] Sep, [facility] [address] [id number] [place] [address] Sep, [facility] [address] [id number] [place] [address] Sep, [facility] [address] [id number] [place] [address] Sep, [facility] [address] [id number] [place] [address] Sep, [facility] [address] [id number] [place] [address] Sep, [facility] [id number] [place] [address] Sep, [facility] [address] [id number] [place] [address] Sep, [facility] [address] [id number] [place] [address] Sep, [facility] [address] [id number] [place] [address] Sep, IMMUNIZATIONS No Known Immunizations SOCIAL HISTORY [...]
--- OUTSIDE RECORDS SUMMARY | 2020-04-17 21:25 | XMS REPORT ---
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 Active 59051962 Problem Other chronic pain G89.29 Active 8 8480220 Problem Hypertension, essential I10 Active 79743611 Problem Vitamin D deficiency E55.9 Active 54363927 Problem Mood disorder F39 Active 252621 05 Problem Type 1 diabetes mellitus with hyperglycemia E10.65 Active [id number] Problem Type 1 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 Active 46991599 Problem Chronic fatigue R53.82 Active 8422 9001 Problem Controlled diabetes mellitus type 1 without complications E10.9 Active 80715635 ALLERGIES No Information ENCOUNTERS Encounter Location Date Diagnosis [place] [address] [address] Nov, Type 1 diabetes mellitus with diabetic p olyneuropathy E10.42 ; Mood disorder F39 ; Vitamin D deficiency E55.9 and Renal insufficiency N28.9 [place] [address] [address] Nov, Type 1 diabetes mellitus with other diab etic neurological complication E10.49 [place] [address] [address] Oct, Other chronic pain G89.29 [place] [address] [address] Oct, Type 1 diabetes mellitus with other diab etic neurological complication E10.49 [place] [address] [address] Oct, [facility] [id number] [place] [address] Aug, Type 1 diabetes mellitus with other diab etic neurological complication E10.49 [facility] [id number] [place] [address] 14 Aug, 2019 Encounter for immunization Z23 [facility] [id number] [place] [address] 08 Aug, 2019 Vitamin D deficiency E55.9 [facility] [id number] [place] [address] Jul, Type 1 diabetes mellitus with other diab etic neurological complication E10.49 [facility] [place] [id number] [place] [address] Jul, Type 1 diabetes mellitus with hyperglyce uma E10.65 [facility] [id number] [place] [address] Jun, Type 1 diabetes mellitus with other diab etic neurological complication E10.49 [facility] [id number] [place] [address] May, [facility] [place] [address] [address] May, [facility] [id number] [place] [address] May, Other chronic pain G89.29 [facility] [id number] [place] [address] May, [facility] [id number] [place] [address] May, Type 1 diabetes mellitus with other diab etic neurological complication E10.49 [facility] [id number] [place] [address] Apr, [facility] [id number] [place] [address] Apr, Type 1 diabetes mellitus with other diab etic neurological complication E10.49 [facility] [place] [id number] [place] [address] Apr, Encounter for Medicare annual wellness e xam Z00.00 [place] [id number] [place] [address] March, Encounter for Medicare annual wellness e xam Z00.00 and Type 1 diabetes mellitus with other diabetic neurological complication E10.49 [place] [id number] [place] [address] Feb, Type 1 diabetes mellitus with other diab etic neurological complication E10.49 [place] [id number] [place] [address] Feb, Encounter for Medicare annual wellness e xam Z00.00 ; Mood disorder F39 ; Type 1 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 ; Hypertension, essential I10 and Chronic fatigue R53.82 [place] [id number] [place] [address] Jan, Type 1 diabetes mellitus with other diab etic neurological complication E10.49 [facility] [id number] [place] [address] Jan, [facility] [id number] [place] [address] Jan, Other chronic pain G89.29 [place] [address] [id number] [place] [address] Dec, [facility] [id number] [place] [address] Dec, Type 1 diabetes mellitus with other diab etic neurological complication E10.49 [facility] [place] [id number] [place] [address] 05 Dec, 2018 Other chronic pain G89.29 [facility] [id number] [place] [address] Nov, [facility] [address] [facility] [place] [id number] Nov, Caries K02.9 [place] [address] [address] Nov, Type 1 diabetes mellitus with other diab etic neurological complication E10.49 [place] [address] [address] Nov, Controlled diabetes mellitus type 1 with out complications E10.9 ; Other chronic pain G89.29 and Pain in left knee M25.562 [facility] [address] [id number] Oct, Dental examination Z01.20 [place] [address] [address] 14 Oct, 2018 Cutaneous abscess of unspecified foot L0 2.619 and Cellulitis of unspecified part of limb L03.119 [place] [address] [address] 11 Oct, 2018 [place] [address] [address] 10 Oct, 2018 Type 1 diabetes mellitus with other diab etic neurological complication E10.49 [facility] [address] [id number] Oct, Dental examination Z01.20 and Caries K02 .9 [place] [address] [address] 04 Oct, 2018 Cutaneous abscess of left foot L02.612 a nd Cellulitis of left lower limb L03.116 [place] [address] [address] Oct, Dental examination Z01.20 and Pain, dent al K08.89 [facility] [address] [facility] [id number] [place] [address] Sep, Left foot pain M79.672 and L eft anterior knee pain M25.562 [place] [address] [address] Sep, Type 1 diabetes mellitus with other diab etic neurological complication E10.49 [place] [address] [address] [id number] [place] [address] Sep, [facility] [place] [address] [address] Aug, Type 1 diabetes mellitus with other diab etic neurological complication E10.49 [facility] [place] [id number] [place] [address] 10 Aug, 2018 Encounter for immunization Z23 [facility] [address] [address] 05 Aug, 2018 Type 1 diabetes mellitus with hyperglyce uma E10.65 [facility] [place] [address] [address] 21 Jul, 2018 Type 1 diabetes mellitus with hyperglyce uma E10.65 [facility] [place] [address] [place] [id number] [place] [address] 19 Jul, 2018 [facility] [place] [address] [address] 18 Jul, 2018 [facility] [address] [address] 17 Jul, 2018 Type 1 diabetes mellitus with other diab etic neurological complication E10.49 [facility] [place] [address] [address] [id number] [place] [address] Jul, Type 1 diabetes mellitus with other diab etic neurological complication E10.49 and Mood disorder F39 [facility] [address] [id number] [place] [address] Jun, [facility] [place] [address] [address] Jun, Type 1 diabetes mellitus with other diab etic neurological complication E10.49 and Chronic fatigue R53.82 [facility] [place] [id number] [place] [address] May, Type 1 diabetes mellitus with other diab etic neurological complication E10.49 [facility] [place] [address] [id number] [place] [address] May, [facility] [place] [id number] [place] [address] May, [facility] [place] [id number] [place] [address] Apr, [facility] [place] [id number] [place] [address] Apr, Type 1 diabetes mellitus with other diab etic neurological complication E10.49 [facility] [place] [address] [id number] [place] [address] March, [facility] [place] [id number] [place] [address] Feb, [facility] [place] [address] [address] Feb, Type 1 diabetes mellitus with other diab etic neurological complication E10.49 ; Tobacco abuse Z72.0 and Tobacco abuse counseling Z71.6 [place] [id number] [place] [address] Jan, Type 1 diabetes mellitus with hyperglyce uma E10.65 [place] [address] [id number] [place] [address] Jan, [facility] [place] [address] [id number] [place] [address] Dec, Tobacco abuse Z72.0 [place] [id number] [place] [address] Dec, Type 1 diabetes mellitus with hyperglyce uma E10.65 [place] [address] [id number] [place] [address] Dec, Type 1 diabetes mellitus with hyperglyce uma E10.65 ; Tobacco abuse Z72.0 and Tobacco abuse counseling Z71.6 [place] [id number] [place] [address] Nov, Type 1 diabetes mellitus with hyperglyce uma E10.65 [place] [address] [id number] [place] [address] Oct, Type 1 diabetes mellitus with hyperglyce uma E10.65 [facility] [place] [address] [id number] [place] [address] Oct, Type 1 diabetes mellitus with hyperglyce uma E10.65 [facility] [place] [address] [id number] [place] [address] Sep, Type 1 diabetes mellitus with hyperglyce uma E10.65 [facility] [place] [address] [address] Aug, Type 1 diabetes mellitus with hyperglyce uma E10.65 [facility] [place] [id number] [place] [address] Aug, [place] [address] [address] Aug, Type 1 diabetes mellitus with hyperglyce uma E10.65 [place] [address] [address] Aug, Encounter for immunization Z23 [place] [address] [address] Aug, Type 1 diabetes mellitus with hyperglyce uma E10.65 [place] [id number] [place] [address] Jul, Type 1 diabetes mellitus with hyperglyce uma E10.65 [place] [id number] [place] [address] Jul, Type 1 diabetes mellitus with hyperglyce uma E10.65 [place] [id number] [place] [address] May, Type 1 diabetes mellitus with hyperglyce uma E10.65 [facility] [place] [address] [address] May, [facility] [place] [address] [address] Apr, [facility] [place] [id number] [place] [address] Apr, Type 1 diabetes mellitus with hyperglyce uma E10.65 [facility] [place] [id number] [place] [address] March, [facility] [place] [address] [address] March, [facility] [place] [id number] [place] [address] Jan, [facility] [address] [address] Jan, [facility] [place] [address] [address] Jan, Type 1 diabetes mellitus with diabetic p olyneuropathy E10.42 [facility] [place] [address] [address] Jan, Type 1 diabetes mellitus with hyperglyce uma E10.65 ; Excessive cerumen in both ear canals H61.23 and Controlled diabetes mellitus type 1 without complications E10.9 [facility] [place] [id number] [place] [address] Dec, [facility] [place] [address] [address] Dec, [facility] [place] [address] [address] Dec, [facility] [place] [address] [address] Dec, [facility] [place] [address] [address] Nov, [facility] [id number] [place] [address] Nov, [facility] [place] [address] [address] Oct, Type 1 diabetes mellitus with hyperglyce uma E10.65 [facility] [place] [address] [address] Sep, [facility] [place] [address] [address] Sep, [facility] [place] [address] [address] Sep, Controlled diabetes mellitus type 1 with out complications E10.9 [facility] [place] [address] [address] Sep, [facility] [address] [id number] Aug, Dental caries K02.9 [facility] [place] [address] [address] Aug, Type 1 diabetes mellitus with diabetic p olyneuropathy E10.42 [facility] [place] [address] [address] Aug, [facility] [place] [address] [address] Aug, [facility] [place] [address] [address] Aug, [facility] [place] [address] [address] Jul, Type 1 diabetes mellitus with hyperglyce uma E10.65 [facility] [place] [address] [address] Jul, Type 1 diabetes mellitus with hyperglyce uma E10.65 ; Tooth pain K08.8 and Encounter for immunization Z23 [facility] [address] [id number] Jul, Dental examination Z01.20 [facility] [place] [address] [address] Jul, [facility] [place] [address] [address] Jul, [facility] [place] [address] [address] Jul, [facility] [place] [address] [address] Jun, [facility] [place] [address] [id number] [place] [address] May, [facility] [place] [address] [id number] [place] [address] Apr, [facility] [address] [id number] [place] [address] Apr, [facility] [address] [id number] [place] [address] Apr, [facility] [address] [id number] [place] [address] March, [facility] [address] [id number] [place] [address] March, [facility] [address] [id number] [place] [address] Feb, [facility] [id number] [place] [address] Feb, [facility] [address] [id number] [place] [address] Feb, Type 1 diabetes mellitus with hyperglyce uma E10.65 [facility] [place] [address] [id number] [place] [address] Jan, [facility] [address] [id number] [place] [address] Jan, [facility] [address] [id number] [place] [address] Jan, [facility] [address] [id number] [place] [address] Jan, [facility] [address] [id number] [place] [address] Dec, [facility] [address] [id number] [place] [address] Nov, [facility] [address] [id number] [place] [address] Nov, [facility] [id number] [place] [address] Oct, [facility] [address] [address] Oct, Type 1 diabetes mellitus with diabetic a utonomic (poly)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 ; Type 1 diabetes mellitus with hyperglycemia E10.65 ; Gastroparesis K31.84 and Esophageal stricture K22.2 [facility] [place] [address] [address] Oct, [facility] [address] [address] Sep, [facility] [place] [address] [address] Sep, Type 1 diabetes mellitus with other diab etic neurological complication E10.49 [facility] [place] [address] [address] Aug, Encounter for immunization Z23 [facility] [place] [address] [address] Aug, [facility] [address] [address] Aug, [facility] [address] [address] Jul, [facility] [address] [address] Jul, [facility] [place] [address] [address] Jun, [facility] [address] [address] Jun, [facility] [address] [address] Jun, [facility] [address] [address] May, [facility] [address] [address] May, [facility] [id number] [place] [address] May, Diabetes type 1, controlled 250.01 [facility] [id number] [place] [address] May, [facility] [id number] [place] [address] May, [facility] [id number] [place] [id number] Apr, Dental examination V72.2 [facility] [id number] [place] [address] Apr, [facility] [address] [address] Apr, [facility] [id number] [place] [address] Apr, [facility] [address] [address] Apr, [facility] [id number] [place] [address] Apr, [facility] [id number] [place] [id number] Apr, Dental examination V72.2 [facility] [id number] [place] [address] Apr, [facility] [address] [address] Apr, [facility] [id number] [place] [address] March, Diabetes mellitus type 1 250.01 [facility] [id number] [place] [address] March, [facility] [address] [id number] [place] [address] Feb, [facility] [place] [address] [address] Feb, [facility] [address] [facility] [id number] [place] [address] Jan, [facility] [address] [id number] [place] [address] Jan, [facility] [address] [id number] [place] [address] Jan, [facility] [address] [id number] [place] [address] Jan, [facility] [address] [facility] [id number] [place] [address] Dec, [facility] [address] [id number] [place] [address] Dec, [facility] [address] [id number] [place] [address] Nov, [facility] [address] [id number] [place] [address] Nov, [facility] [address] [id number] [place] [address] Nov, [facility] [address] [id number] [place] [address] Nov, [facility] [address] [id number] [place] [address] Nov, [facility] [address] [id number] [place] [address] Nov, [facility] [address] [id number] [place] [address] Nov, [facility] [address] [id number] [place] [address] Oct, [facility] [address] [id number] [place] [address] Oct, [facility] [address] [id number] [place] [address] Sep, [facility] [address] [id number] [place] [address] Aug, 2013 [facility] [address] [facility] [id number] [place] [address] Aug, 2013 [facility] [address] [id number] [place] [address] Aug, [facility] [address] [id number] [place] [address] Aug, [facility] [address] [id number] [place] [address] Aug, 2013 [facility] [address] [facility] [id number] [place] [address] Aug, [facility] [address] [id number] [place], [place] [address] Aug, 2013 [facility] [address] [id number] [place] [address] Aug, 2013 [facility] [address] [id number] [place] [address] Aug, 2013 [facility] [address] [id number] [place] [address] Aug, [facility] [address] [id number] [place] [address] Aug, 2013 [facility] [address] [id number] [place] [address] Aug, 2013 [facility] [address] [id number] [place] [address] Aug, 2013 [facility] [address] [id number] [place] [address] Aug, 2013 [facility] [address] [id number] [place] [address] Jul, 2013 [facility] [address] [id number] [place] [address] Jul, 2013 [facility] [address] [id number] [place] [address] Jul, [facility] [address] [id number] [place] [address] Jul, [facility] [address] [facility] [id number] [place] [address] Jun, [facility] [address] [facility] [id number] [place] [address] Jun, [facility] [address] [facility] [id number] [place] [address] Jun, [facility] [address] [facility] [id number] [place] [address] Jun, [facility] [address] [id number] [place] [address] May, [facility] [address] [id number] [place] [address] May, [facility] [address] [id number] [place] [address] May, [facility] [address] [facility] [id number] [place] [address] May, [facility] [address] [id number] [place] [address] May, [facility] [address] [id number] [place] [address] May, [facility] [address] [id number] [place] [address] May, [facility] [address] [id number] [place] [address] May, [facility] [address] [facility] [id number] [place] [address] May, [facility] [address] [facility] [id number] [place] [address] May, [facility] [address] [id number] [place] [address] May, [facility] [address] [id number] [place] [address] May, [facility] [address] [facility] [id number] [place] [address] May, [facility] [address] [facility] [id number] [facility] [place] [address] Apr, [facility] [address] [id number] [facility] [place] [address] Apr, [facility] [address] [facility] [id number] [facility] [place] [address] Apr, [facility] [address] [facility] [id number] [facility] [place] [address] Apr, [facility] [address] [id number] [place] [address] Apr, [facility] [address] [id number] [place] [address] Apr, [facility] [address] [id number] [place] [address] Apr, [facility] [address] [id number] [place] [address] Apr, [facility] [address] [id number] [place] [address] Apr, [facility] [address] [id number] [place] [address] Apr, [facility] [address] [id number] [place] [address] Apr, [facility] [address] [facility] [id number] [place] [address] Apr, [facility] [address] [id number] [place] [address] Apr, [facility] [address] [id number] [place] [address] Apr, [facility] [address] [id number] [place] [address] March, [facility] [address] [facility] [id number] [place] [address] March, [facility] [address] [id number] [place] [address] March, [facility] [address] [id number] [place] [address] March, [facility] [address] [id number] [place] [address] March, [facility] [address] [id number] [place] [address] March, [facility] [address] [id number] [place] [address] March, [facility] [address] [id number] [place] [address] March, [facility] [address] [id number] [place] [address] March, [facility] [address] [id number] [place] [address] March, [facility] [address] [id number] [place] [address] Feb, [facility] [address] [id number] [place] [address] Feb, [facility] [address] [id number] [place] [address] Feb, [facility] [address] [id number] [place] [address] Feb, [facility] [address] [id number] [place] [address] Feb, [facility] [address] [id number] [place] [address] Feb, [facility] [address] [id number] [place] [address] Feb, [facility] [address] [id number] [place] [address] Feb, [facility] [address] [id number] [place] [address] Jan, [facility] [address] [id number] [place] [address] Jan, [facility] [address] [id number] [place] [address] Jan, [facility] [address] [id number] [place] [address] Jan, [facility] [address] [id number] [place] [address] Jan, [facility] [address] [id number] [place] [address] Jan, [facility] [address] [id number] [place] [address] Jan, [facility] [address] [id number] [place] [address] Jan, [facility] [address] [id number] [place] [address] Jan, [facility] [address] [id number] [place] [address] Jan, [facility] [address] [id number] [place] [address] Dec, [facility] [address] [id number] [place] [address] Dec, [facility] [address] [id number] [place] [address] Nov, [facility] [address] [id number] [place] [address] Nov, [facility] [address] [id number] [place] [address] Nov, [facility] [address] [id number] [place] [address] Nov, [facility] [address] [id number] [place] [address] Nov, [facility] [address] [id number] [place] [address] Nov, [facility] [address] [id number] [place] [address] Nov, [facility] [address] [id number] [place] [address] Nov, [facility] [address] [id number] [place] [address] Oct, [facility] [address] [id number] [place] [address] Oct, [facility] [address] [id number] [place] [address] Oct, [facility] [address] [id number] [place] [address] Oct, [facility] [address] [id number] [place] [address] Oct, [facility] [address] [id number] [place] [address] Oct, [facility] [address] [id number] [place] [address] Sep, [facility] [address] [id number] [place] [address] Sep, [facility] [address] [id number] [place] [address] Sep, [facility] [address] [id number] [place] [address] Sep, [facility] [address] [id number] [place] [address] Sep, [facility] [address] [id number] [place] [address] Aug, [facility] [address] [id number] [place] [address] Aug, [facility] [address] [facility] [id number] [place] [address] Aug, [facility] [address] [facility] [id number] [place] [address] Aug, [facility] [address] [id number] [place] [address] Aug, [facility] [address] [id number] [place] [address] Aug, [facility] [address] [id number] [place] [address] Jul, [facility] [address] [id number] [place] [address] Jul, [facility] [address] [id number] [place] [address] Jul, [facility] [address] [id number] [place] [address] Jun, [facility] [address] [id number] [place] [address] Jun, [facility] [address] [id number] [place] [address] May, [facility] [address] [id number] [place] [address] May, [facility] [address] [id number] [place] [address] Apr, [facility] [address] [id number] [place] [address] Apr, [facility] [address] [id number] [place] [address] Apr, [facility] [address] [id number] [place] [address] March, [facility] [address] [id number] [place] [address] Feb, [facility] [address] [id number] [place] [address] Feb, [facility] [address] [facility] [id number] [place] [address] Jan, [facility] [address] [facility] [id number] [facility] [place] [address] 20 Jan, 2013 [facility] [address] [facility] [id number] [place] [address] Jan, [facility] [address] [id number] [facility] [place] [address] 08 Jan, 2013 [facility] [address] [facility] [id number] [facility] [place] [address] Jan, [facility] [address] [id number] [place] [address] 28 Dec, 2012 [facility] [address] [id number] [place] [address] Dec, [facility] [address] [id number] [place] [address] Dec, [facility] [address] [id number] [place] [address] Dec, [facility] [address] [id number] [place] [address] Dec, [facility] [address] [id number] [place] [address] 05 Dec, 2012 [facility] [address] [place] [id number] Nov, [facility] [address] [id number] [place] [address] Nov, [facility] [address] [facility] [id number] [place] [address] Nov, [facility] [address] [id number] [place] [address] Nov, [facility] [address] [id number] [place] [address] Nov, [facility] [address] [id number] [place] [address] Oct, [facility] [address] [id number] [place] [address] Oct, [facility] [address] [id number] [place] [address] Oct, [facility] [address] [id number] [place] [address] Oct, [facility] [address] [id number] [place] [address] Oct, [facility] [address] [id number] [place] [address] Oct, [facility] [address] [id number] [place] [address] Oct, [facility] [address] [id number] [place] [address] Oct, [facility] [address] [id number] [place] [address] Sep, [facility] [address] [id number] [place] [address] Sep, [facility] [address] [id number] [place] [address] Sep, [facility] [address] [id number] [place] [address] Sep, [facility] [address] [id number] [place] [address] Sep, [facility] [address] [id number] [place] [address] Sep, [facility] [address] [id number] [place] [address] Sep, [facility] [address] [id number] [place] [address] Sep, [facility] [address] [id number] [place] [address] Sep, [facility] [address] [id number] [place] [address] Sep, [facility] [address] [id number] [place] [address] Sep, [facility] [address] [id number] [place] [address] Sep, [facility] [id number] [place] [address] Sep, [facility] [address] [id number] [place] [address] Sep, [facility] [address] [id number] [place] [address] Sep, [facility] [address] [id number] [place] [address] Sep, IMMUNIZATIONS No Known Immunizations SOCIAL HISTORY [...]
--- OUTSIDE RECORDS SUMMARY | 2020-04-17 21:25 | XMS REPORT ---
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 Active 30871983 Problem Other chronic pain G89.29 Active 8 9188464 Problem Hypertension, essential I10 Active 63497408 Problem Vitamin D deficiency E55.9 Active 51037336 Problem Mood disorder F39 Active 230994 05 Problem Type 1 diabetes mellitus with hyperglycemia E10.65 Active [id number] Problem Type 1 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 Active 69932965 Problem Chronic fatigue R53.82 Active 8422 9001 Problem Controlled diabetes mellitus type 1 without complications E10.9 Active [id number] ALLERGIES No Information ENCOUNTERS Encounter Location Date Diagnosis [place] [address] [address] Nov, Type 1 diabetes mellitus with diabetic p olyneuropathy E10.42 ; Mood disorder F39 ; Vitamin D deficiency E55.9 and Renal insufficiency N28.9 [place] [address] [address] Nov, Type 1 diabetes mellitus with other diab etic neurological complication E10.49 [place] [address] [address] Oct, Other chronic pain G89.29 [place] [address] [address] Oct, Type 1 diabetes mellitus with other diab etic neurological complication E10.49 [place] [address] [place] [id number] [place] [address] Oct, [facility] [place] [address] [address] Aug, Type 1 diabetes mellitus with other diab etic neurological complication E10.49 [facility] [place] [address] [address] 14 Aug, 2019 Encounter for immunization Z23 [facility] [place] [address] [address] 08 Aug, 2019 Vitamin D deficiency E55.9 [facility] [place] [address] [address] Jul, Type 1 diabetes mellitus with other diab etic neurological complication E10.49 [facility] [place] [address] [address] Jul, Type 1 diabetes mellitus with hyperglyce uma E10.65 [facility] [place] [address] [address] Jun, Type 1 diabetes mellitus with other diab etic neurological complication E10.49 [facility] [place] [address] [address] May, [facility] [place] [address] [address] May, [facility] [place] [address] [address] May, Other chronic pain G89.29 [facility] [place] [address] [place] [id number] [place] [address] May, [facility] [place] [address] [address] May, Type 1 diabetes mellitus with other diab etic neurological complication E10.49 [facility] [place] [address] [place] [id number] [place] [address] Apr, [facility] [place] [address] [address] Apr, Type 1 diabetes mellitus with other diab etic neurological complication E10.49 [facility] [place] [address] [id number] [place] [address] Apr, Encounter for Medicare annual wellness e xam Z00.00 [facility] [place] [address] [id number] [place] [address] March, Encounter for Medicare annual wellness e xam Z00.00 and Type 1 diabetes mellitus with other diabetic neurological complication E10.49 [facility] [place] [address] [place] [id number] [place] [address] Feb, Type 1 diabetes mellitus with other diab etic neurological complication E10.49 [facility] [place] [address] [place] [id number] [place] [address] Feb, Encounter for Medicare annual wellness e xam Z00.00 ; Mood disorder F39 ; Type 1 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 ; Hypertension, essential I10 and Chronic fatigue R53.82 [facility] [place] [address] [place] [id number] [place] [address] Jan, Type 1 diabetes mellitus with other diab etic neurological complication E10.49 [facility] [place] [address] [place] [id number] [place] [address] Jan, [facility] [place] [address] [place] [id number] [place] [address] Jan, Other chronic pain G89.29 [facility] [place] [address] [place] [id number] [place] [address] Dec, [facility] [place] [address] [place] [id number] [place] [address] Dec, Type 1 diabetes mellitus with other diab etic neurological complication E10.49 [facility] [place] [address] [place] [id number] [place] [address] 05 Dec, 2018 Other chronic pain G89.29 [facility] [place] [address] [id number] [place] [address] Nov, [facility] [address] [id number] Nov, Caries K02.9 [place] [address] [address] 15 Nov, 2018 Type 1 diabetes mellitus with other diab etic neurological complication E10.49 [place] [address] [address] 07 Nov, 2018 Controlled diabetes mellitus type 1 with out complications E10.9 ; Other chronic pain G89.29 and Pain in left knee M25.562 [facility] [address] [id number] Oct, Dental examination Z01.20 [place] [address] [address] 14 Oct, 2018 Cutaneous abscess of unspecified foot L0 2.619 and Cellulitis of unspecified part of limb L03.119 [place] [address] [address] Oct, [place] [address] [address] 10 Oct, 2018 Type 1 diabetes mellitus with other diab etic neurological complication E10.49 [facility] [address] [id number] 06 Oct, 2018 Dental examination Z01.20 and Caries K02 .9 [place] [address] [address] 04 Oct, 2018 Cutaneous abscess of left foot L02.612 a nd Cellulitis of left lower limb L03.116 [place] [address] [address] 04 Oct, 2018 Dental examination Z01.20 and Pain, dent al K08.89 [facility] [address] [facility] [id number] [address] [address] Sep, Left foot pain M79.672 and L eft anterior knee pain M25.562 [place] [address] [address] Sep, Type 1 diabetes mellitus with other diab etic neurological complication E10.49 [facility] [place] [address] [address] Sep, [facility] [place] [address] [address] Aug, Type 1 diabetes mellitus with other diab etic neurological complication E10.49 [place] [address] [address] 10 Aug, 2018 Encounter for immunization Z23 [facility] [place] [address] [address] 05 Aug, 2018 Type 1 diabetes mellitus with hyperglyce uma E10.65 [place] [address] [address] 21 Jul, 2018 Type 1 diabetes mellitus with hyperglyce uma E10.65 [place] [address] [address] Jul, [facility] [place] [address] [address] 18 Jul, 2018 [facility] [place] [address] [address] Jul, Type 1 diabetes mellitus with other diab etic neurological complication E10.49 [place] [address] [address] Jul, Type 1 diabetes mellitus with other diab etic neurological complication E10.49 and Mood disorder F39 [facility] [place] [address] [address] Jun, [facility] [place] [address] [address] Jun, Type 1 diabetes mellitus with other diab etic neurological complication E10.49 and Chronic fatigue R53.82 [facility] [place] [address] [address] May, Type 1 diabetes mellitus with other diab etic neurological complication E10.49 [facility] [place] [address] [place] [address] May, [facility] [place] [address] [id number] [place] [address] May, [facility] [place] [address] [id number] [place] [address] Apr, [facility] [place] [address] [id number] [place] [address] Apr, Type 1 diabetes mellitus with other diab etic neurological complication E10.49 [facility] [place] [address] [place] [id number] [place] [address] March, [facility] [place] [address] [place] [id number] [place] [address] Feb, [facility] [place] [address] [place] [id number] [place] [address] Feb, Type 1 diabetes mellitus with other diab etic neurological complication E10.49 ; Tobacco abuse Z72.0 and Tobacco abuse counseling Z71.6 [facility] [place] [address] [place] [id number] [place] [address] Jan, Type 1 diabetes mellitus with hyperglyce uma E10.65 [facility] [place] [address] [place] [id number] [place] [address] Jan, [facility] [place] [address] [place] [id number] [place] [address] Dec, Tobacco abuse Z72.0 [facility] [place] [address] [place] [id number] [place] [address] Dec, Type 1 diabetes mellitus with hyperglyce uma E10.65 [facility] [place] [address] [place] [id number] [place] [address] Dec, Type 1 diabetes mellitus with hyperglyce uma E10.65 ; Tobacco abuse Z72.0 and Tobacco abuse counseling Z71.6 [facility] [place] [address] [place] [id number] [place] [address] Nov, Type 1 diabetes mellitus with hyperglyce uma E10.65 [facility] [place] [address] [place] [id number] [place] [address] Oct, Type 1 diabetes mellitus with hyperglyce uma E10.65 [facility] [place] [address] [address] Oct, Type 1 diabetes mellitus with hyperglyce uma E10.65 [facility] [place] [address] [place] [id number] [place] [address] Sep, Type 1 diabetes mellitus with hyperglyce uma E10.65 [facility] [place] [address] [address] Aug, Type 1 diabetes mellitus with hyperglyce uma E10.65 [facility] [place] [address] [address] Aug, [facility] [place] [address] [address] Aug, Type 1 diabetes mellitus with hyperglyce uma E10.65 [place] [address] [address] Aug, Encounter for immunization Z23 [facility] [place] [address] [address] Aug, Type 1 diabetes mellitus with hyperglyce uma E10.65 [facility] [place] [address] [place] [id number] [place] [address] Jul, Type 1 diabetes mellitus with hyperglyce uma E10.65 [place] [address] [address] Jul, Type 1 diabetes mellitus with hyperglyce uma E10.65 [facility] [place] [address] [address] May, Type 1 diabetes mellitus with hyperglyce uma E10.65 [facility] [place] [address] [address] May, [facility] [place] [address] [address] Apr, [facility] [place] [address] [address] Apr, Type 1 diabetes mellitus with hyperglyce uma E10.65 [facility] [place] [address] [place] [id number] [place] [address] March, [facility] [place] [address] [place] [id number] [place] [address] March, [facility] [place] [address] [address] Jan, [facility] [place] [address] [address] Jan, [facility] [place] [address] [address] Jan, Type 1 diabetes mellitus with diabetic p olyneuropathy E10.42 [facility] [place] [address] [address] Jan, Type 1 diabetes mellitus with hyperglyce uma E10.65 ; Excessive cerumen in both ear canals H61.23 and Controlled diabetes mellitus type 1 without complications E10.9 [facility] [place] [address] [place] [id number] [place] [address] Dec, [facility] [place] [address] [address] Dec, [facility] [place] [address] [address] Dec, [facility] [place] [address] [address] Dec, [facility] [place] [address] [place] [id number] [place] [address] Nov, [facility] [place] [address] [address] Nov, [facility] [place] [address] [place] [id number] [place] [address] Oct, Type 1 diabetes mellitus with hyperglyce uma E10.65 [facility] [place] [address] [address] Sep, [facility] [place] [address] [address] Sep, [facility] [place] [address] [address] Sep, Controlled diabetes mellitus type 1 with out complications E10.9 [facility] [place] [address] [address] Sep, [facility] [address] [id number] Aug, Dental caries K02.9 [facility] [place] [address] [address] Aug, Type 1 diabetes mellitus with diabetic p olyneuropathy E10.42 [facility] [place] [address] [address] Aug, [facility] [place] [address] [address] Aug, [facility] [place] [address] [address] Aug, [facility] [place] [address] [address] Jul, Type 1 diabetes mellitus with hyperglyce uma E10.65 [facility] [place] [address] [address] Jul, 2016 Type 1 diabetes mellitus with hyperglyce uma E10.65 ; Tooth pain K08.8 and Encounter for immunization Z23 [facility] [address] [id number] 08 Jul, 2016 Dental examination Z01.20 [facility] [place] [address] [address] 08 Jul, 2016 [facility] [place] [address] [address] 07 Jul, 2016 [facility] [place] [address] [address] 02 Jul, 2016 [facility] [place] [address] [id number] [place] [address] Jun, [facility] [address] [id number] [place] [address] May, [facility] [address] [id number] [place] [address] Apr, [facility] [address] [id number] [place] [address] Apr, [facility] [address] [id number] [place] [address] Apr, [facility] [address] [id number] [place] [address] March, [facility] [address] [id number] [place] [address] March, [facility] [place] [address] [id number] [place] [address] Feb, [facility] [address] [place] [id number] [place] [address] Feb, [facility] [address] [id number] [place] [address] Feb, Type 1 diabetes mellitus with hyperglyce uma E10.65 [facility] [place] [address] [id number] [place] [address] Jan, [facility] [address] [address] [id number] [place] [address] Jan, [facility] [address] [id number] [place] [address] Jan, [facility] [address] [id number] [place] [address] Jan, [facility] [address] [id number] [place] [address] Dec, [facility] [address] [id number] [place] [address] Nov, [facility] [address] [address] 14 Nov, 2015 [facility] [place] [address] [address] Oct, [facility] [place] [address] [address] Oct, Type 1 diabetes mellitus with diabetic a utonomic (poly)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 ; Type 1 diabetes mellitus with hyperglycemia E10.65 ; Gastroparesis K31.84 and Esophageal stricture K22.2 [facility] [place] [address] [address] Oct, [facility] [place] [address] [address] Sep, [facility] [place] [address] [address] Sep, Type 1 diabetes mellitus with other diab etic neurological complication E10.49 [facility] [place] [address] [address] Aug, Encounter for immunization Z23 [facility] [place] [address] [address] Aug, [facility] [place] [address] [address] Aug, [facility] [place] [address] [address] Jul, [facility] [place] [address] [address] Jul, [facility] [place] [address] [address] Jun, [facility] [place] [address] [address] Jun, [facility] [place] [address] [address] Jun, [facility] [place] [address] [address] May, [facility] [place] [id number] [place] [address] May, [facility] [place] [address] [id number] [place] [address] May, Diabetes type 1, controlled 250.01 [facility] [place] [id number] [place] [address] May, [facility] [place] [address] [address] May, [facility] [address] [id number] Apr, Dental examination V72.2 [facility] [place] [id number] [place] [address] Apr, [facility] [place] [address] [address] Apr, [facility] [place] [address] [address] Apr, [facility] [place] [address] [address] Apr, [facility] [place] [id number] [place] [address] Apr, [facility] [address] [id number] [place] [id number] Apr, Dental examination V72.2 [facility] [place] [id number] [place] [address] Apr, [facility] [place] [address] [address] Apr, [facility] [place] [address] [address] March, Diabetes mellitus type 1 250.01 [facility] [place] [id number] [place] [address] March, [facility] [place] [address] [address] Feb, [facility] [address] [id number] [place] [address] Feb, [facility] [address] [id number] [place] [address] Jan, [facility] [address] [id number] [place] [address] Jan, [facility] [address] [id number] [place] [address] Jan, [facility] [address] [id number] [place] [address] Jan, [facility] [address] [id number] [place] [address] Dec, [facility] [address] [id number] [place] [address] Dec, [facility] [address] [id number] [place] [address] Nov, [facility] [address] [id number] [place] [address] Nov, [facility] [address] [id number] [place] [address] Nov, [facility] [address] [id number] [place] [address] Nov, [facility] [address] [id number] [place] [address] Nov, [facility] [address] [id number] [place] [address] Nov, [facility] [address] [id number] [place] [address] Nov, [facility] [address] [id number] [place] [address] Oct, [facility] [address] [id number] [place] [address] Oct, [facility] [address] [id number] [place] [address] Sep, [facility] [address] [facility] [id number] [place] [address] Aug, [facility] [address] [facility] [id number] [place] [address] Aug, [facility] [address] [id number] [place] [address] Aug, [facility] [address] [facility] [id number] [place] [address] Aug, [facility] [address] [facility] [id number] [place] [address] Aug, [facility] [address] [id number] [place] [address] Aug, [facility] [address] [id number] [place] [address] Aug, [facility] [address] [id number] [place] [address] Aug, [facility] [address] [id number] [place] [address] Aug, [facility] [address] [id number] [place] [address] Aug, [facility] [address] [id number] [place] [address] Aug, [facility] [address] [id number] [place] [address] Aug, 2013 [facility] [address] [facility] [id number] [place] [address] Aug, 2013 [facility] [address] [id number] [place] [address] Aug, 2013 [facility] [address] [id number] [place] [address] Jul, 2013 [facility] [address] [id number] [place] [address] Jul, 2013 [facility] [address] [id number] [facility] [place] [address] Jul, [facility] [address] [id number] [facility] [place] [address] Jul, [facility] [address] [facility] [id number] [facility] [place] [address] Jun, [facility] [address] [facility] [id number] [place] [address] Jun, [facility] [address] [facility] [id number] [facility] [place] [address] Jun, [facility] [address] [facility] [id number] [facility] [place] [address] Jun, [facility] [address] [facility] [id number] [place] [address] May, [facility] [address] [id number] [place] [address] May, [facility] [address] [facility] [id number] [place] [address] May, [facility] [address] [facility] [id number] [place] [address] May, [facility] [address] [id number] [place] [address] May, [facility] [address] [id number] [place] [address] May, [facility] [address] [facility] [id number] [place] [address] May[facility] [facility] [address] [id number] [place] [address] May, [facility] [address] [id number] [place] [address] May, [facility] [address] [facility] [id number] [place] [address] May, [facility] [address] [id number] [place] [address] May, [facility] [address] [facility] [id number] [place] [address] May, [facility] [address] [facility] [id number] [place] [address] May, [facility] [address] [id number] [place] [address] Apr, [facility] [address] [id number] [place] [address] Apr, [facility] [address] [facility] [id number] [place] [address] Apr, [facility] [address] [id number] [place] [address] Apr, [facility] [address] [id number] [place] [address] Apr, [facility] [address] [id number] [place] [address] Apr, [facility] [address] [id number] [place] [address] Apr, [facility] [address] [id number] [place] [address] Apr, [facility] [address] [id number] [place] [address] Apr, [facility] [address] [id number] [place] [address] Apr, [facility] [address] [id number] [place] [address] Apr, [facility] [address] [id number] [place] [address] Apr, [facility] [address] [id number] [place] [address] Apr, [facility] [address] [id number] [place] [address] Apr, [facility] [address] [id number] [place] [address] March, [facility] [address] [facility] [id number] [facility] [place] [address] March, [facility] [address] [facility] [id number] [facility] [place] [address] March, [facility] [address] [id number] [facility] [place] [address] March, [facility] [address] [id number] [facility] [place] [address] March, [facility] [address] [facility] [id number] [facility] [place] [address] March, [facility] [address] [id number] [place] [address] March, [facility] [address] [id number] [place] [address] March, [facility] [address] [id number] [place] [address] March, [facility] [address] [facility] [id number] [facility] [place] [address] March, [facility] [address] [id number] [facility] [place] [address] Feb, [facility] [address] [id number] [place] [address] Feb, [facility] [address] [id number] [facility] [place] [address] Feb, [facility] [address] [facility] [id number] [facility] [place] [address] Feb, [facility] [address] [id number] [place] [address] Feb, [facility] [address] [id number] [facility] [place] [address] Feb, [facility] [address] [id number] [facility] [place] [address] Feb, [facility] [address] [facility] [id number] [place] [address] Feb, [facility] [address] [facility] [id number] [place] [address] Jan, [facility] [address] [facility] [id number] [place] [address] Jan, [facility] [address] [id number] [place] [address] Jan, [facility] [address] [facility] [id number] [place] [address] Jan, [facility] [address] [id number] [place] [address] Jan, [facility] [address] [id number] [place] [address] Jan, [facility] [address] [id number] [place] [address] Jan, [facility] [address] [id number] [place] [address] Jan, [facility] [address] [id number] [place] [address] Jan, [facility] [address] [id number] [place] [address] Jan, [facility] [address] [id number] [place] [address] Dec, [facility] [address] [id number] [place] [address] Dec, [facility] [address] [facility] [id number] [place] [address] Nov, [facility] [address] [id number] [place] [address] Nov, [facility] [address] [id number] [place] [address] Nov, [facility] [address] [id number] [place] [address] Nov, [facility] [address] [id number] [place] [address] Nov, [facility] [address] [id number] [place] [address] Nov, [facility] [address] [id number] [place] [address] Nov, [facility] [address] [id number] [place] [address] Nov, [facility] [address] [id number] [place] [address] Oct, [facility] [address] [id number] [place] [address] Oct, [facility] [address] [id number] [place] [address] Oct, [facility] [id number] [place] [address] Oct, [facility] [address] [id number] [place] [address] Oct, [facility] [address] [id number] [place] [address] Oct, [facility] [address] [id number] [place] [address] Sep, [facility] [address] [id number] [place] [address] Sep, [facility] [address] [id number] [place] [address] Sep, [facility] [address] [id number] [place] [address] Sep, [facility] [address] [id number] [place] [address] 05 Sep, 2013 [facility] [address] [id number] [place] [address] 30 Aug, 2013 [facility] [address] [id number] [place] [address] Aug, [facility] [address] [facility] [id number] [facility] [place] [address] Aug, [facility] [address] [id number] [place] [address] Aug, [facility] [address] [id number] [place] [address] Aug, [facility] [address] [id number] [place] [address] Aug, [facility] [address] [id number] [place] [address] Jul, [facility] [address] [id number] [place] [address] Jul, [facility] [address] [id number] [place] [address] Jul, [facility] [address] [id number] [place] [address] Jun, [facility] [address] [id number] [place] [address] Jun, [facility] [address] [id number] [place] [address] May, [facility] [address] [id number] [place] [address] May, [facility] [address] [id number] [place] [address] Apr, [facility] [address] [id number] [place] [address] Apr, [facility] [address] [id number] [place] [address] Apr, [facility] [address] [id number] [place] [address] March, [facility] [address] [id number] [place] [address] Feb, [facility] [address] [id number] [place] [address] 04 Feb, 2013 [facility] [address] [id number] [place] [address] 28 Jan, 2013 [facility] [address] [id number] [place] [address] Jan, [facility] [address] [id number] [place] [address] Jan, [facility] [address] [id number] [place] [address] 08 Jan, 2013 [facility] [address] [id number] [place] [address] Jan, [facility] [address] [id number] [place] [address] Dec, [facility] [address] [id number] [place] [address] Dec, [facility] [address] [id number] [place] [address] Dec, [facility] [address] [id number] [place] [address] Dec, [facility] [address] [id number] [place] [address] Dec, [facility] [address] [id number] [place] [address] Dec, [facility] [address] [place] [id number] 14 Nov, 2012 [facility] [address] [id number] [place] [address] Nov, [facility] [address] [id number] [place] [address] Nov, [facility] [address] [id number] [place] [address] Nov, [facility] [address] [id number] [place] [address] Nov, [facility] [address] [id number] [place] [address] Oct, [facility] [address] [id number] [place] [address] Oct, [facility] [address] [id number] [place] [address] Oct, [facility] [address] [id number] [place] [address] Oct, [facility] [address] [id number] [place] [address] Oct, [facility] [address] [id number] [place] [address] Oct, [facility] [address] [id number] [place] [address] Oct, [facility] [address] [id number] [place] [address] Oct, [facility] [address] [id number] [place] [address] Sep, [facility] [address] [id number] [place] [address] Sep, [facility] [address] [id number] [place] [address] Sep, [facility] [address] [id number] [place] [address] Sep, [facility] [address] [id number] [place] [address] Sep, [facility] [address] [id number] [place] [address] Sep, [facility] [address] [id number] [place] [address] Sep, [facility] [address] [id number] [place] [address] Sep, [facility] [address] [id number] [place] [address] Sep, [facility] [place] [id number] [place] [address] Sep, [facility] [place] [id number] [place] [address] Sep, [facility] [place] [address] [address] Sep, [facility] [place] [address] [address] Sep, [facility] [place] [id number] [place] [address] Sep, [facility] [place] [id number] [place] [address] Sep, [facility] [place] [id number] [place] [address] Sep, IMMUNIZATIONS No Known Immunizations SOCIAL HISTORY [...]
--- OUTSIDE RECORDS SUMMARY | 2020-04-17 21:26 | XMS REPORT ---
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 Active 83530235 Problem Other chronic pain G89.29 Active 8 0351389 Problem Hypertension, essential I10 Active 09759707 Problem Vitamin D deficiency E55.9 Active 06079138 Problem Mood disorder F39 Active 681954 05 Problem Type 1 diabetes mellitus with hyperglycemia E10.65 Active [id number] Problem Type 1 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 Active 42602030 Problem Chronic fatigue R53.82 Active 8422 9001 Problem Controlled diabetes mellitus type 1 without complications E10.9 Active 93852599 ALLERGIES No Information ENCOUNTERS Encounter Location Date Diagnosis [place] [address] [address] Nov, Type 1 diabetes mellitus with diabetic p olyneuropathy E10.42 ; Mood disorder F39 ; Vitamin D deficiency E55.9 and Renal insufficiency N28.9 [place] [id number] [address] Nov, Type 1 diabetes mellitus with other diab etic neurological complication E10.49 [place] [address] [address] Oct, Other chronic pain G89.29 [place] [address] [address] Oct, Type 1 diabetes mellitus with other diab etic neurological complication E10.49 [place] [address] [place] [id number] [place] [address] Oct, [facility] [address] [address] Aug, Type 1 diabetes mellitus with other diab etic neurological complication E10.49 [facility] [address] [address] 14 Aug, 2019 Encounter for immunization Z23 [facility] [address] [address] 08 Aug, 2019 Vitamin D deficiency E55.9 [facility] [address] [address] Jul, Type 1 diabetes mellitus with other diab etic neurological complication E10.49 [facility] [address] [address] Jul, Type 1 diabetes mellitus with hyperglyce uma E10.65 [facility] [address] [address] Jun, Type 1 diabetes mellitus with other diab etic neurological complication E10.49 [facility] [address] [address] May, [facility] [address] [address] May, [facility] [address] [address] May, Other chronic pain G89.29 [facility] [address] [place] [id number] [place] [address] May, [facility] [address] [address] May, Type 1 diabetes mellitus with other diab etic neurological complication E10.49 [facility] [address] [place] [id number] [place] [address] Apr, [facility] [address] [address] Apr, Type 1 diabetes mellitus with other diab etic neurological complication E10.49 [facility] [address] [id number] [place] [address] Apr, Encounter for Medicare annual wellness e xam Z00.00 [facility] [address] [id number] [place] [address] March, Encounter for Medicare annual wellness e xam Z00.00 and Type 1 diabetes mellitus with other diabetic neurological complication E10.49 [facility] [address] [place] [id number] [place] [address] Feb, Type 1 diabetes mellitus with other diab etic neurological complication E10.49 [facility] [address] [place] [id number] [place] [address] Feb, Encounter for Medicare annual wellness e xam Z00.00 ; Mood disorder F39 ; Type 1 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 ; Hypertension, essential I10 and Chronic fatigue R53.82 [facility] [address] [place] [id number] [place] [address] Jan, Type 1 diabetes mellitus with other diab etic neurological complication E10.49 [facility] [address] [place] [id number] [place] [address] Jan, [facility] [address] [place] [id number] [place] [address] Jan, Other chronic pain G89.29 [facility] [address] [place] [id number] [place] [address] Dec, [facility] [address] [place] [id number] [place] [address] Dec, Type 1 diabetes mellitus with other diab etic neurological complication E10.49 [facility] [address] [place] [id number] [place] [address] 05 Dec, 2018 Other chronic pain G89.29 [facility] [address] [id number] [place] [address] Nov, [facility] [place] [address] [id number] Nov, Caries K02.9 [place] [address] [address] 15 Nov, 2018 Type 1 diabetes mellitus with other diab etic neurological complication E10.49 [place] [address] [address] 07 Nov, 2018 Controlled diabetes mellitus type 1 with out complications E10.9 ; Other chronic pain G89.29 and Pain in left knee M25.562 [facility] [address] [id number] Oct, Dental examination Z01.20 [place] [address] [address] 14 Oct, 2018 Cutaneous abscess of unspecified foot L0 2.619 and Cellulitis of unspecified part of limb L03.119 [place] [address] [address] Oct, [place] [address] [address] 10 Oct, 2018 Type 1 diabetes mellitus with other diab etic neurological complication E10.49 [facility] [address] [id number] 06 Oct, 2018 Dental examination Z01.20 and Caries K02 .9 [place] [address] [address] 04 Oct, 2018 Cutaneous abscess of left foot L02.612 a nd Cellulitis of left lower limb L03.116 [place] [address] [address] 04 Oct, 2018 Dental examination Z01.20 and Pain, dent al K08.89 [facility] [address] [facility] [id number] [address] [address] Sep, Left foot pain M79.672 and L eft anterior knee pain M25.562 [place] [address] [address] Sep, Type 1 diabetes mellitus with other diab etic neurological complication E10.49 [facility] [address] [address] Sep, [facility] [address] [address] Aug, Type 1 diabetes mellitus with other diab etic neurological complication E10.49 [place] [address] [address] 10 Aug, 2018 Encounter for immunization Z23 [facility] [address] [address] 05 Aug, 2018 Type 1 diabetes mellitus with hyperglyce uma E10.65 [place] [address] [address] 21 Jul, 2018 Type 1 diabetes mellitus with hyperglyce uma E10.65 [place] [address] [address] Jul, [facility] [address] [address] 18 Jul, 2018 [facility] [address] [address] Jul, Type 1 diabetes mellitus with other diab etic neurological complication E10.49 [place] [address] [address] Jul, Type 1 diabetes mellitus with other diab etic neurological complication E10.49 and Mood disorder F39 [facility] [address] [address] Jun, [facility] [address] [address] Jun, Type 1 diabetes mellitus with other diab etic neurological complication E10.49 and Chronic fatigue R53.82 [facility] [address] [address] May, Type 1 diabetes mellitus with other diab etic neurological complication E10.49 [facility] [address] [place] [address] May, [facility] [address] [id number] [place] [address] May, [facility] [address] [id number] [place] [address] Apr, [facility] [address] [id number] [place] [address] Apr, Type 1 diabetes mellitus with other diab etic neurological complication E10.49 [facility] [address] [place] [id number] [place] [address] March, [facility] [address] [place] [id number] [place] [address] Feb, [facility] [address] [place] [id number] [place] [address] Feb, Type 1 diabetes mellitus with other diab etic neurological complication E10.49 ; Tobacco abuse Z72.0 and Tobacco abuse counseling Z71.6 [facility] [address] [place] [id number] [place] [address] Jan, Type 1 diabetes mellitus with hyperglyce uma E10.65 [facility] [address] [place] [id number] [place] [address] Jan, [facility] [address] [place] [id number] [place] [address] Dec, Tobacco abuse Z72.0 [facility] [address] [place] [id number] [place] [address] Dec, Type 1 diabetes mellitus with hyperglyce uma E10.65 [facility] [address] [place] [id number] [place] [address] Dec, Type 1 diabetes mellitus with hyperglyce uma E10.65 ; Tobacco abuse Z72.0 and Tobacco abuse counseling Z71.6 [facility] [address] [place] [id number] [place] [address] Nov, Type 1 diabetes mellitus with hyperglyce uma E10.65 [facility] [address] [place] [id number] [place] [address] Oct, Type 1 diabetes mellitus with hyperglyce uma E10.65 [facility] [address] [address] Oct, Type 1 diabetes mellitus with hyperglyce uma E10.65 [facility] [address] [place] [id number] [place] [address] Sep, Type 1 diabetes mellitus with hyperglyce uma E10.65 [facility] [address] [address] Aug, Type 1 diabetes mellitus with hyperglyce uma E10.65 [facility] [address] [address] Aug, [facility] [address] [address] Aug, Type 1 diabetes mellitus with hyperglyce uma E10.65 [place] [address] [address] Aug, Encounter for immunization Z23 [facility] [address] [address] Aug, Type 1 diabetes mellitus with hyperglyce uma E10.65 [facility] [address] [place] [id number] [place] [address] Jul, Type 1 diabetes mellitus with hyperglyce uma E10.65 [place] [address] [address] Jul, Type 1 diabetes mellitus with hyperglyce uma E10.65 [facility] [address] [address] May, Type 1 diabetes mellitus with hyperglyce uma E10.65 [facility] [address] [address] May, [facility] [address] [address] Apr, [facility] [address] [address] Apr, Type 1 diabetes mellitus with hyperglyce uma E10.65 [facility] [address] [place] [id number] [place] [address] March, [facility] [address] [place] [id number] [place] [address] March, [facility] [address] [address] Jan, [facility] [address] [address] Jan, [facility] [address] [address] Jan, Type 1 diabetes mellitus with diabetic p olyneuropathy E10.42 [facility] [address] [address] Jan, Type 1 diabetes mellitus with hyperglyce uma E10.65 ; Excessive cerumen in both ear canals H61.23 and Controlled diabetes mellitus type 1 without complications E10.9 [facility] [address] [place] [id number] [place] [address] Dec, [facility] [address] [address] Dec, [facility] [address] [address] Dec, [facility] [address] [address] Dec, [facility] [address] [place] [id number] [place] [address] Nov, [facility] [address] [address] Nov, [facility] [address] [place] [id number] [place] [address] Oct, Type 1 diabetes mellitus with hyperglyce uma E10.65 [facility] [address] [address] Sep, [facility] [address] [address] Sep, [facility] [address] [address] Sep, Controlled diabetes mellitus type 1 with out complications E10.9 [facility] [address] [address] Sep, [facility] [address] [id number] Aug, Dental caries K02.9 [facility] [address] [address] Aug, Type 1 diabetes mellitus with diabetic p olyneuropathy E10.42 [facility] [address] [address] Aug, [facility] [address] [address] Aug, [facility] [address] [address] Aug, [facility] [address] [address] Jul, Type 1 diabetes mellitus with hyperglyce uma E10.65 [facility] [address] [address] Jul, 2016 Type 1 diabetes mellitus with hyperglyce uma E10.65 ; Tooth pain K08.8 and Encounter for immunization Z23 [facility] [address] [id number] 08 Jul, 2016 Dental examination Z01.20 [facility] [address] [address] 08 Jul, 2016 [facility] [address] [address] 07 Jul, 2016 [facility] [address] [address] 02 Jul, 2016 [facility] [address] [id number] [place] [address] Jun, [facility] [address] [id number] [place] [address] May, [facility] [address] [id number] [place] [address] Apr, [facility] [address] [id number] [place] [address] Apr, [facility] [address] [id number] [place] [address] Apr, [facility] [address] [id number] [place] [address] March, [facility] [address] [id number] [place] [address] March, [facility] [address] [id number] [place] [address] Feb, [facility] [address] [place] [id number] [place] [address] Feb, [facility] [address] [id number] [place] [address] Feb, Type 1 diabetes mellitus with hyperglyce uma E10.65 [facility] [address] [id number] [place] [address] Jan, [facility] [address] [place] [id number] [place] [address] Jan, [facility] [address] [id number] [place] [address] Jan, [facility] [address] [id number] [place] [address] Jan, [facility] [address] [id number] [place] [address] Dec, [facility] [address] [id number] [place] [address] Nov, [facility] [address] [address] 14 Nov, 2015 [facility] [address] [address] Oct, [facility] [address] [address] Oct, Type 1 diabetes mellitus with diabetic a utonomic (poly)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 ; Type 1 diabetes mellitus with hyperglycemia E10.65 ; Gastroparesis K31.84 and Esophageal stricture K22.2 [facility] [address] [address] Oct, [facility] [address] [address] Sep, [facility] [address] [address] Sep, Type 1 diabetes mellitus with other diab etic neurological complication E10.49 [facility] [address] [address] Aug, Encounter for immunization Z23 [facility] [address] [address] Aug, [facility] [address] [address] Aug, [facility] [address] [address] Jul, [facility] [address] [address] Jul, [facility] [address] [address] Jun, [facility] [address] [address] Jun, [facility] [address] [address] Jun, [facility] [address] [address] May, [facility] [address] [place] [id number] [place] [address] May, [facility] [address] [place] [id number] [place] [address] May, Diabetes type 1, controlled 250.01 [facility] [address] [place] [id number] [place] [address] May, [facility] [address] [address] May, [facility] [address] [id number] Apr, Dental examination V72.2 [facility] [address] [place] [id number] [place] [address] Apr, [facility] [address] [address] Apr, [facility] [address] [address] Apr, [facility] [address] [address] Apr, [facility] [address] [place] [id number] [place] [address] Apr, [facility] [address] [place] [id number] [place] [id number] Apr, Dental examination V72.2 [facility] [address] [place] [id number] [place] [address] Apr, [facility] [address] [address] Apr, [facility] [address] [address] March, Diabetes mellitus type 1 250.01 [facility] [address] [place] [id number] [place] [address] March, [facility] [address] [address] Feb, [facility] [address] [id number] [place] [address] Feb, [facility] [address] [id number] [place] [address] Jan, [facility] [address] [id number] [place] [address] Jan, [facility] [address] [id number] [place] [address] Jan, [facility] [address] [id number] [place] [address] Jan, [facility] [address] [id number] [place] [address] Dec, [facility] [address] [id number] [place] [address] Dec, [facility] [address] [id number] [place] [address] Nov, [facility] [address] [id number] [place] [address] Nov, [facility] [address] [id number] [place] [address] Nov, [facility] [address] [id number] [place] [address] Nov, [facility] [address] [id number] [place] [address] Nov, [facility] [address] [id number] [place] [address] Nov, [facility] [address] [id number] [place] [address] Nov, [facility] [address] [id number] [place] [address] Oct, [facility] [address] [id number] [place] [address] Oct, [facility] [address] [id number] [place] [address] Sep, [facility] [address] [facility] [id number] [place] [address] Aug, [facility] [address] [facility] [id number] [place] [address] Aug, [facility] [address] [id number] [place] [address] Aug, [facility] [address] [facility] [id number] [place] [address] Aug, [facility] [address] [facility] [id number] [place] [address] Aug, [facility] [address] [id number] [place] [address] Aug, [facility] [address] [id number] [place] [address] Aug, [facility] [address] [id number] [place] [address] Aug, [facility] [address] [id number] [place] [address] Aug, [facility] [address] [id number] [place] [address] Aug, [facility] [address] [id number] [place] [address] Aug, [facility] [address] [id number] [place] [address] Aug, 2013 [facility] [address] [facility] [id number] [place] [address] Aug, 2013 [facility] [address] [id number] [place] [address] Aug, 2013 [facility] [address] [id number] [place] [address] Jul, 2013 [facility] [address] [id number] [place] [address] Jul, 2013 [facility] [address] [id number] [facility] [place] [address] Jul, [facility] [address] [id number] [facility] [place] [address] Jul, [facility] [address] [facility] [id number] [facility] [place] [address] Jun, [facility] [address] [facility] [id number] [place] [address] Jun, [facility] [address] [facility] [id number] [facility] [place] [address] Jun, [facility] [address] [facility] [id number] [facility] [place] [address] Jun, [facility] [address] [facility] [id number] [place] [address] May, [facility] [address] [id number] [place] [address] May, [facility] [address] [facility] [id number] [place] [address] May, [facility] [address] [facility] [id number] [place] [address] May, [facility] [address] [id number] [place] [address] May, [facility] [address] [id number] [place] [address] May, [facility] [address] [facility] [id number] [place] [address] May, [facility] [address] [id number] [place] [address] May, [facility] [address] [id number] [place] [address] May, [facility] [address] [facility] [id number] [place] [address] May, [facility] [address] [id number] [place] [address] May, [facility] [address] [facility] [id number] [place] [address] May, [facility] [address] [facility] [id number] [place] [address] May, [facility] [address] [id number] [place] [address] Apr, [facility] [address] [id number] [place] [address] Apr, [facility] [address] [facility] [id number] [place] [address] Apr, [facility] [address] [id number] [place] [address] Apr, [facility] [address] [id number] [place] [address] Apr, [facility] [address] [id number] [place] [address] Apr, [facility] [address] [id number] [place] [address] Apr, [facility] [address] [id number] [place] [address] Apr, [facility] [address] [id number] [place] [address] Apr, [facility] [address] [id number] [place] [address] Apr, [facility] [address] [id number] [place] [address] Apr, [facility] [address] [id number] [place] [address] Apr, [facility] [address] [id number] [place] [address] Apr, [facility] [address] [id number] [place] [address] Apr, [facility] [address] [id number] [place] [address] March, [facility] [address] [facility] [id number] [facility] [place] [address] March, [facility] [address] [facility] [id number] [facility] [place] [address] March, [facility] [address] [id number] [facility] [place] [address] March, [facility] [address] [id number] [facility] [place] [address] March, [facility] [address] [facility] [id number] [facility] [place] [address] March, [facility] [address] [id number] [place] [address] March, [facility] [address] [id number] [place] [address] March, [facility] [address] [id number] [place] [address] March, [facility] [address] [facility] [id number] [facility] [place] [address] March, [facility] [address] [id number] [facility] [place] [address] Feb, [facility] [address] [id number] [place] [address] Feb, [facility] [address] [id number] [facility] [place] [address] Feb, [facility] [address] [facility] [id number] [facility] [place] [address] Feb, [facility] [address] [id number] [place] [address] Feb, [facility] [address] [id number] [facility] [place] [address] Feb, [facility] [address] [id number] [facility] [place] [address] Feb, [facility] [address] [facility] [id number] [place] [address] Feb, [facility] [address] [facility] [id number] [place] [address] Jan, [facility] [address] [facility] [id number] [place] [address] Jan, [facility] [address] [id number] [place] [address] Jan, [facility] [address] [facility] [id number] [place] [address] Jan, [facility] [address] [id number] [place] [address] Jan, [facility] [address] [id number] [place] [address] Jan, [facility] [address] [id number] [place] [address] Jan, [facility] [address] [id number] [place] [address] Jan, [facility] [address] [id number] [place] [address] Jan, [facility] [address] [id number] [place] [address] Jan, [facility] [address] [id number] [place] [address] Dec, [facility] [address] [id number] [place] [address] Dec, [facility] [address] [facility] [id number] [place] [address] Nov, [facility] [address] [id number] [place] [address] Nov, [facility] [address] [id number] [place] [address] Nov, [facility] [address] [id number] [place] [address] Nov, [facility] [address] [id number] [place] [address] Nov, [facility] [address] [id number] [place] [address] Nov, [facility] [address] [id number] [place] [address] Nov, [facility] [address] [id number] [place] [address] Nov, [facility] [address] [id number] [place] [address] Oct, [facility] [address] [id number] [place] [address] Oct, [facility] [address] [id number] [place] [address] Oct, [facility] [id number] [place] [address] Oct, [facility] [address] [id number] [place] [address] Oct, [facility] [address] [id number] [place] [address] Oct, [facility] [address] [id number] [place] [address] Sep, [facility] [address] [id number] [place] [address] Sep, [facility] [address] [id number] [place] [address] Sep, [facility] [address] [id number] [place] [address] Sep, [facility] [address] [id number] [place] [address] 05 Sep, 2013 [facility] [address] [id number] [place] [address] 30 Aug, 2013 [facility] [address] [id number] [place] [address] Aug, [facility] [address] [facility] [id number] [facility] [address] Aug, [facility] [address] [id number] [place] [address] Aug, [facility] [address] [id number] [place] [address] Aug, [facility] [address] [id number] [place] [address] Aug, [facility] [address] [id number] [place] [address] Jul, [facility] [address] [id number] [place] [address] Jul, [facility] [address] [id number] [place] [address] Jul, [facility] [address] [id number] [place] [address] Jun, [facility] [address] [id number] [place] [address] Jun, [facility] [address] [id number] [place] [address] May, [facility] [address] [id number] [place] [address] May, [facility] [address] [id number] [place] [address] Apr, [facility] [address] [id number] [place] [address] Apr, [facility] [address] [id number] [place] [address] Apr, [facility] [address] [id number] [place] [address] March, [facility] [address] [id number] [place] [address] Feb, [facility] [address] [id number] [place] [address] 04 Feb, 2013 [facility] [address] [id number] [place] [address] 28 Jan, 2013 [facility] [address] [id number] [place] [address] Jan, [facility] [address] [id number] [place] [address] Jan, [facility] [address] [id number] [place] [address] 08 Jan, 2013 [facility] [address] [id number] [place] [address] Jan, [facility] [address] [id number] [place] [address] Dec, [facility] [address] [id number] [place] [address] Dec, [facility] [address] [id number] [place] [address] Dec, [facility] [address] [id number] [place] [address] Dec, [facility] [address] [id number] [place] [address] Dec, [facility] [address] [id number] [place] [address] Dec, [facility] [address] [place] [id number] 14 Nov, 2012 [facility] [address] [id number] [place] [address] Nov, [facility] [address] [id number] [place] [address] Nov, [facility] [address] [id number] [place] [address] Nov, [facility] [address] [id number] [place] [address] Nov, [facility] [address] [id number] [place] [address] Oct, [facility] [address] [id number] [place] [address] Oct, [facility] [address] [id number] [place] [address] Oct, [facility] [address] [id number] [place] [address] Oct, [facility] [address] [id number] [place] [address] Oct, [facility] [address] [id number] [place] [address] Oct, [facility] [address] [id number] [place] [address] Oct, [facility] [address] [id number] [place] [address] Oct, [facility] [address] [id number] [place] [address] Sep, [facility] [address] [id number] [place] [address] Sep, [facility] [address] [id number] [place] [address] Sep, [facility] [address] [id number] [place] [address] Sep, [facility] [address] [id number] [place] [address] Sep, [facility] [address] [id number] [place] [address] Sep, [facility] [address] [id number] [place] [address] Sep, [facility] [address] [id number] [place] [address] Sep, [facility] [address] [id number] [place] [address] Sep, [facility] [id number] [place] [address] Sep, [facility] [id number] [place] [address] Sep, [facility] [id number] [place] [address] Sep, [facility] [id number] [place] [address] Sep, [facility] [id number] [place] [address] Sep, [facility] [id number] [place] [address] Sep, [facility] [id number] [place] [address] Sep, IMMUNIZATIONS No Known Immunizations SOCIAL HISTORY Never Assessed REASON FOR VISIT PLAN OF CARE VITAL SIGNS Height 68 in 2014-05-31 Weight 166.7 lbs 2014-05-31 Temperature 97.6 degrees Fahrenheit 2014-05-31 Heart Rate 90 bpm 2014-05-31 Respiratory Rate 16 2014-05-31 Blood pressure systolic 110 mmHg 2014-05-31 Blood pressure diastolic 74 mmHg 2014-05-31 MEDICATIONS Unknown Medications RESULTS No Results PROCEDURES Procedure Date Ordered Result Body Site GLYCATED HEMOGLOBIN TEST May 31, 2014 MICROALBUMIN, SEMIQUANT May 31, 2014 MICROALBUMIN, QUANTITATIVE May 31, 2014 INSTRUCTIONS MEDICATIONS ADMINISTERED No Known Medications MEDICAL (GENERAL) HISTORY Type Description Date Medical History hypertension Medical History type I diabetes Medical History chronic renal insufficiency Surgical History gastric pacemaker 2008 Hospitalization History nausea 2011
--- OUTSIDE RECORDS SUMMARY | 2020-04-17 21:26 | XMS REPORT ---
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 Active 43584982 Problem Other chronic pain G89.29 Active 8 8041560 Problem Hypertension, essential I10 Active 05094375 Problem Vitamin D deficiency E55.9 Active 53018472 Problem Mood disorder F39 Active 829636 05 Problem Type 1 diabetes mellitus with hyperglycemia E10.65 Active [id number] Problem Type 1 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 Active 94000889 Problem Chronic fatigue R53.82 Active 8422 9001 Problem Controlled diabetes mellitus type 1 without complications E10.9 Active 60589230 ALLERGIES No Information ENCOUNTERS Encounter Location Date Diagnosis [place] [address] [address] Nov, Type 1 diabetes mellitus with diabetic p olyneuropathy E10.42 ; Mood disorder F39 ; Vitamin D deficiency E55.9 and Renal insufficiency N28.9 [place] [address] [address] Nov, Type 1 diabetes mellitus with other diab etic neurological complication E10.49 [place] [address] [address] Oct, Other chronic pain G89.29 [facility] [address] [address] Oct, Type 1 diabetes mellitus with other diab etic neurological complication E10.49 [facility] [address] [address] Oct, [facility] [address] [address] Aug, Type 1 diabetes mellitus with other diab etic neurological complication E10.49 [facility] [address] [address] 14 Aug, 2019 Encounter for immunization Z23 [facility] [address] [address] 08 Aug, 2019 Vitamin D deficiency E55.9 [facility] [address] [address] Jul, Type 1 diabetes mellitus with other diab etic neurological complication E10.49 [place] [address] [address] Jul, Type 1 diabetes mellitus with hyperglyce uma E10.65 [facility] [address] [address] Jun, Type 1 diabetes mellitus with other diab etic neurological complication E10.49 [facility] [address] [address] May, [facility] [address] [address] May, [facility] [address] [address] May, Other chronic pain G89.29 [facility] [address] [address] May, [facility] [address] [address] May, Type 1 diabetes mellitus with other diab etic neurological complication E10.49 [facility] [address] [address] Apr, [facility] [address] [address] Apr, Type 1 diabetes mellitus with other diab etic neurological complication E10.49 [facility] [address] [id number] [place] [address] Apr, Encounter for Medicare annual wellness e xam Z00.00 [facility] [address] [place] [id number] [place] [address] March, Encounter for Medicare annual wellness e xam Z00.00 and Type 1 diabetes mellitus with other diabetic neurological complication E10.49 [facility] [address] [place] [id number] [place] [address] Feb, Type 1 diabetes mellitus with other diab etic neurological complication E10.49 [facility] [address] [place] [id number] [place] [address] Feb, Encounter for Medicare annual wellness e xam Z00.00 ; Mood disorder F39 ; Type 1 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 ; Hypertension, essential I10 and Chronic fatigue R53.82 [facility] [address] [place] [id number] [place] [address] Jan, Type 1 diabetes mellitus with other diab etic neurological complication E10.49 [facility] [address] [place] [id number] [place] [address] Jan, [facility] [address] [place] [id number] [place] [address] Jan, Other chronic pain G89.29 [facility] [address] [place] [id number] [place] [address] Dec, [facility] [address] [place] [id number] [place] [address] Dec, Type 1 diabetes mellitus with other diab etic neurological complication E10.49 [facility] [address] [place] [id number] [place] [address] 05 Dec, 2018 Other chronic pain G89.29 [facility] [address] [place] [id number] [place] [address] Nov, [place] [address] [id number] Nov, Caries K02.9 [place] [address] [address] Nov, Type 1 diabetes mellitus with other diab etic neurological complication E10.49 [place] [address] [address] Nov, Controlled diabetes mellitus type 1 with out complications E10.9 ; Other chronic pain G89.29 and Pain in left knee M25.562 [facility] [address] [id number] Oct, Dental examination Z01.20 [place] [address] [address] 14 Oct, 2018 Cutaneous abscess of unspecified foot L0 2.619 and Cellulitis of unspecified part of limb L03.119 [place] [address] [address] Oct, [place] [address] [address] 10 Oct, 2018 Type 1 diabetes mellitus with other diab etic neurological complication E10.49 [facility] [address] [id number] 06 Oct, 2018 Dental examination Z01.20 and Caries K02 .9 [place] [address] [address] 04 Oct, 2018 Cutaneous abscess of left foot L02.612 a nd Cellulitis of left lower limb L03.116 [place] [address] [address] 04 Oct, 2018 Dental examination Z01.20 and Pain, dent al K08.89 [facility] [address] [facility] [address] [facility] [id number] [address] [place] [address] Sep, Left foot pain M79.672 and L eft anterior knee pain M25.562 [place] [address] [address] Sep, Type 1 diabetes mellitus with other diab etic neurological complication E10.49 [place] [address] [place] [id number] [place] [address] Sep, [facility] [address] [place] [id number] [place] [address] Aug, Type 1 diabetes mellitus with other diab etic neurological complication E10.49 [place] [address] [place] [id number] [place] [address] 10 Aug, 2018 Encounter for immunization Z23 [place] [address] [address] 05 Aug, 2018 Type 1 diabetes mellitus with hyperglyce uma E10.65 [place] [address] [place] [id number] [place] [address] Jul, Type 1 diabetes mellitus with hyperglyce uma E10.65 [place] [address] [place] [id number] [place] [address] Jul, [facility] [address] [place] [id number] [place] [address] 18 Jul, 2018 [place] [address] [address] Jul, Type 1 diabetes mellitus with other diab etic neurological complication E10.49 [place] [address] [address] Jul, Type 1 diabetes mellitus with other diab etic neurological complication E10.49 and Mood disorder F39 [place] [address] [place] [id number] [place] [address] Jun, [place] [address] [address] Jun, Type 1 diabetes mellitus with other diab etic neurological complication E10.49 and Chronic fatigue R53.82 [place] [address] [place] [id number] [place] [address] May, Type 1 diabetes mellitus with other diab etic neurological complication E10.49 [place] [address] [place] [id number] [place] [address] May, [facility] [address] [place] [id number] [place] [address] May, [facility] [address] [place] [id number] [place] [address] Apr, [facility] [address] [place] [id number] [place] [address] Apr, Type 1 diabetes mellitus with other diab etic neurological complication E10.49 [facility] [address] [place] [id number] [place] [address] March, [facility] [address] [address] Feb, [facility] [address] [place] [id number] [place] [address] Feb, Type 1 diabetes mellitus with other diab etic neurological complication E10.49 ; Tobacco abuse Z72.0 and Tobacco abuse counseling Z71.6 [facility] [address] [place] [id number] [place] [address] Jan, Type 1 diabetes mellitus with hyperglyce uma E10.65 [place] [address] [place] [id number] [place] [address] Jan, [facility] [address] [address] Dec, Tobacco abuse Z72.0 [facility] [address] [place] [id number] [place] [address] Dec, Type 1 diabetes mellitus with hyperglyce uma E10.65 [facility] [address] [address] Dec, Type 1 diabetes mellitus with hyperglyce uma E10.65 ; Tobacco abuse Z72.0 and Tobacco abuse counseling Z71.6 [place] [address] [place] [id number] [place] [address] Nov, Type 1 diabetes mellitus with hyperglyce uma E10.65 [facility] [address] [id number] [place] [address] Oct, Type 1 diabetes mellitus with hyperglyce uma E10.65 [facility] [address] [id number] [place] [address] Oct, Type 1 diabetes mellitus with hyperglyce uma E10.65 [facility] [address] [id number] [place] [address] Sep, Type 1 diabetes mellitus with hyperglyce uma E10.65 [facility] [address] [place] [id number] [place] [address] Aug, Type 1 diabetes mellitus with hyperglyce uma E10.65 [facility] [address] [place] [id number] [place] [address] Aug, [facility] [address] [place] [id number] [place] [address] Aug, Type 1 diabetes mellitus with hyperglyce uma E10.65 [facility] [address] [place] [id number] [place] [address] Aug, Encounter for immunization Z23 [facility] [address] [place] [id number] [place] [address] Aug, Type 1 diabetes mellitus with hyperglyce uma E10.65 [facility] [address] [place] [id number] [place] [address] Jul, Type 1 diabetes mellitus with hyperglyce uma E10.65 [facility] [address] [place] [id number] [place] [address] Jul, Type 1 diabetes mellitus with hyperglyce uma E10.65 [facility] [address] [place] [id number] [place] [address] May, Type 1 diabetes mellitus with hyperglyce uma E10.65 [facility] [address] [place] [id number] [place] [address] May, [facility] [address] [place] [id number] [place] [address] Apr, [facility] [address] [place] [address] [place] [address] Apr, Type 1 diabetes mellitus with hyperglyce uma E10.65 [facility] [address] [address] March, [facility] [address] [address] March, [facility] [address] [address] Jan, [facility] [address] [address] Jan, [facility] [address] [address] Jan, Type 1 diabetes mellitus with diabetic p olyneuropathy E10.42 [facility] [address] [address] Jan, Type 1 diabetes mellitus with hyperglyce uma E10.65 ; Excessive cerumen in both ear canals H61.23 and Controlled diabetes mellitus type 1 without complications E10.9 [facility] [address] [address] Dec, [facility] [address] [address] Dec, [facility] [address] [address] Dec, [facility] [address] [address] Dec, [facility] [address] [address] Nov, [facility] [address] [address] Nov, [facility] [address] [address] Oct, Type 1 diabetes mellitus with hyperglyce uma E10.65 [facility] [address] [address] Sep, [facility] [address] [address] Sep, [facility] [address] [address] Sep, Controlled diabetes mellitus type 1 with out complications E10.9 [facility] [address] [address] Sep, [facility] [address] [id number] Aug, Dental caries K02.9 [facility] [address] [address] Aug, Type 1 diabetes mellitus with diabetic p olyneuropathy E10.42 [facility] [address] [address] Aug, [facility] [address] [address] Aug, [facility] [address] [address] Aug, [facility] [address] [address] Jul, Type 1 diabetes mellitus with hyperglyce uma E10.65 [facility] [address] [address] Jul, Type 1 diabetes mellitus with hyperglyce uma E10.65 ; Tooth pain K08.8 and Encounter for immunization Z23 [facility] [address] [id number] 08 Jul, 2016 Dental examination Z01.20 [facility] [address] [address] 08 Jul, 2016 [facility] [address] [address] 07 Jul, 2016 [facility] [address] [address] Jul, [facility] [address] [id number] [place] [address] Jun, [facility] [address] [id number] [place] [address] May, [facility] [address] [id number] [place] [address] Apr, [facility] [address] [id number] [place] [address] Apr, [facility] [address] [id number] [place] [address] Apr, [facility] [address] [id number] [place] [address] March, [facility] [address] [id number] [place] [address] March, [facility] [address] [place] [id number] [place] [address] Feb, [facility] [address] [id number] [place] [address] Feb, [facility] [address] [id number] [place] [address] Feb, Type 1 diabetes mellitus with hyperglyce uma E10.65 [facility] [address] [id number] [place] [address] Jan, [facility] [address] [id number] [place] [address] Jan, [facility] [address] [id number] [place] [address] Jan, [facility] [address] [place] [id number] [place] [address] Jan, [facility] [address] [id number] [place] [address] Dec, [facility] [address] [id number] [place] [address] Nov, [facility] [address] [place] [id number] [place] [address] 14 Nov, 2015 [facility] [address] [address] Oct, [facility] [address] [address] Oct, Type 1 diabetes mellitus with diabetic a utonomic (poly)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 ; Type 1 diabetes mellitus with hyperglycemia E10.65 ; Gastroparesis K31.84 and Esophageal stricture K22.2 [facility] [address] [address] Oct, [facility] [address] [address] Sep, [facility] [address] [address] Sep, Type 1 diabetes mellitus with other diab etic neurological complication E10.49 [facility] [address] [address] Aug, Encounter for immunization Z23 [facility] [address] [address] Aug, [facility] [address] [address] Aug, [facility] [address] [address] Jul, [facility] [address] [address] Jul, [facility] [address] [address] Jun, [facility] [address] [address] Jun, [facility] [address] [address] Jun, [facility] [address] [address] May, [facility] [address] [place] [id number] [place] [address] May, [facility] [address] [place] [id number] [place] [address] May, Diabetes type 1, controlled 250.01 [facility] [address] [place] [id number] [place] [address] May, [facility] [address] [place] [id number] [place] [address] May, [facility] [address] [place] [id number] [place] [id number] Apr, Dental examination V72.2 [facility] [address] [place] [id number] [place] [address] Apr, [facility] [address] [address] Apr, [facility] [address] [place] [id number] [place] [address] Apr, [facility] [address] [place] [id number] [place] [address] Apr, [facility] [address] [place] [id number] [place] [address] Apr, [facility] [address] [place] [id number] [place] [id number] Apr, Dental examination V72.2 [facility] [address] [place] [id number] [place] [address] Apr, [facility] [address] [address] Apr, [facility] [address] [place] [id number] [place] [address] March, Diabetes mellitus type 1 250.01 [facility] [address] [place] [id number] [place] [address] March, [facility] [address] [address] 14 Feb, 2015 [facility] [address] [id number] [place] [address] Feb, [facility] [address] [facility] [address] [facility] [id number] [facility] [place] [address] Jan, [facility] [address] [id number] [place] [address] Jan, [facility] [address] [id number] [place] [address] Jan, [facility] [address] [facility] [address] [facility] [id number] [place] [address] Jan, [facility] [address] [id number] [place] [address] Dec, [facility] [address] [id number] [place] [address] Dec, [facility] [address] [id number] [place] [address] Nov, [facility] [address] [id number] [place] [address] Nov, [facility] [address] [id number] [place] [address] Nov, [facility] [address] [id number] [place] [address] Nov, [facility] [address] [id number] [place] [address] Nov, [facility] [address] [id number] [place] [address] Nov, [facility] [address] [id number] [place] [address] Nov, [facility] [address] [id number] [place] [address] Oct, [facility] [address] [id number] [place] [address] Oct, [facility] [address] [id number] [place] [address] Sep, [facility] [address] [address] [facility] [id number] [place] [address] Aug, [facility] [address] [id number] [place] [address] Aug, [facility] [address] [id number] [place] [address] Aug, [facility] [address] [id number] [place] [address] Aug, [facility] [address] [address] [facility] [id number] [place] [address] Aug, [facility] [address] [id number] [place] [address] Aug, [facility] [address] [id number] [place] [address] Aug, [facility] [address] [id number] [place] [address] Aug, [facility] [address] [id number] [place] [address] Aug, [facility] [address] [id number] [place] [address] Aug, [facility] [address] [id number] [place] [address] Aug, [facility] [address] [id number] [place] [address] Aug, 2013 [facility] [address] [id number] [place] [address] Aug, 2013 [facility] [address] [id number] [place] [address] Aug, 2013 [facility] [address] [id number] [place] [address] Jul, [facility] [address] [id number] [place] [address] Jul, 2013 [facility] [address] [id number] [place] [address] Jul, 2013 [facility] [address] [facility] [facility] [id number] [place] [address] Jul, [facility] [address] [facility] [id number] [place] [address] Jun, [facility] [address] [facility] [id number] [place] [address] Jun, [facility] [address] [facility] [id number] [place] [address] Jun, [facility] [address] [id number] [place] [address] Jun, [facility] [address] [id number] [place] [address] May, [facility] [address] [id number] [place] [address] May, [facility] [address] [id number] [place] [address] May, [facility] [address] [id number] [place] [address] May, [facility] [address] [id number] [place] [address] May, [facility] [address] [id number] [place] [address] May, [facility] [address] [id number] [place] [address] May, [facility] [address] [facility] [id number] [place] [address] May, [facility] [address] [facility] [id number] [place] [address] May, [facility] [address] [id number] [place] [address] May, [facility] [address] [id number] [place] [address] May, [facility] [address] [facility] [id number] [facility] [place] [address] May, [facility] [address] [facility] [id number] [facility] [place] [address] May, [facility] [address] [id number] [facility] [place] [address] Apr, [facility] [address] [facility] [id number] [facility] [place] [address] Apr, [facility] [address] [facility] [id number] [facility] [place] [address] Apr, [facility] [address] [facility] [id number] [place] [address] Apr, [facility] [address] [id number] [place] [address] Apr, [facility] [address] [id number] [place] [address] Apr, [facility] [address] [id number] [place] [address] Apr, [facility] [address] [id number] [place] [address] Apr, [facility] [address] [id number] [place] [address] Apr, [facility] [address] [id number] [place] [address] Apr, [facility] [address] [id number] [place] [address] Apr, [facility] [address] [id number] [place] [address] Apr, [facility] [address] [id number] [place] [address] Apr, [facility] [address] [id number] [place] [address] Apr, [facility] [address] [facility] [id number] [place] [address] March, [facility] [address] [id number] [place] [address] March, [facility] [address] [id number] [place] [address] March, [facility] [address] [id number] [place] [address] March, [facility] [address] [id number] [place] [address] March, [facility] [address] [id number] [place] [address] March, [facility] [address] [id number] [place] [address] March, [facility] [address] [id number] [place] [address] March, [facility] [address] [id number] [place] [address] March, [facility] [address] [id number] [place] [address] March, [facility] [address] [id number] [place] [address] Feb, [facility] [address] [id number] [place] [address] Feb, [facility] [address] [id number] [place] [address] Feb, [facility] [address] [id number] [place] [address] Feb, [facility] [address] [id number] [place] [address] Feb, [facility] [address] [id number] [place] [address] Feb, [facility] [address] [id number] [place] [address] Feb, [facility] [address] [id number] [place] [address] Feb, [facility] [address] [id number] [place] [address] Jan, [facility] [address] [id number] [place] [address] Jan, [facility] [address] [id number] [place] [address] Jan, [facility] [address] [id number] [place] [address] Jan, [facility] [address] [id number] [place] [address] Jan, [facility] [address] [id number] [place] [address] Jan, [facility] [address] [id number] [place] [address] Jan, [facility] [address] [id number] [place] [address] Jan, [facility] [address] [id number] [place] [address] Jan, [facility] [address] [id number] [place] [address] Jan, [facility] [address] [id number] [place] [address] Dec, [facility] [address] [id number] [place] [address] Dec, [facility] [address] [id number] [place] [address] Nov, [facility] [address] [id number] [place] [address] Nov, [facility] [address] [id number] [place] [address] Nov, [facility] [address] [id number] [place] [address] Nov, [facility] [address] [id number] [place] [address] Nov, [facility] [address] [id number] [place] [address] Nov, [facility] [address] [id number] [place] [address] Nov, [facility] [address] [id number] [place] [address] Nov, [facility] [address] [id number] [place] [address] Oct, [facility] [address] [id number] [place] [address] Oct, [facility] [address] [id number] [place] [address] Oct, [facility] [address] [id number] [place] [address] Oct, [facility] [address] [id number] [place] [address] Oct, [facility] [address] [id number] [place] [address] Oct, [facility] [address] [id number] [place] [address] Sep, [facility] [address] [id number] [place] [address] Sep, [facility] [address] [id number] [place] [address] Sep, [facility] [address] [id number] [place] [address] Sep, [facility] [address] [id number] [place] [address] 05 Sep, 2013 [facility] [address] [id number] [place] [address] 30 Aug, 2013 [facility] [address] [facility] [id number] [place] [address] Aug, [facility] [address] [facility] [id number] [place] [address] Aug, [facility] [address] [id number] [place] [address] Aug, [facility] [address] [id number] [place] [address] Aug, [facility] [address] [id number] [place] [address] Aug, [facility] [address] [id number] [place] [address] Jul, [facility] [address] [id number] [place] [address] Jul, [facility] [address] [id number] [place] [address] Jul, [facility] [address] [id number] [place] [address] Jun, [facility] [address] [id number] [place] [address] Jun, [facility] [address] [id number] [place] [address] May, [facility] [address] [id number] [place] [address] May, [facility] [address] [id number] [place] [address] Apr, [facility] [address] [id number] [place] [address] Apr, [facility] [address] [id number] [place] [address] Apr, [facility] [address] [id number] [place] [address] March, [facility] [address] [id number] [place] [address] Feb, [facility] [address] [facility] [id number] [place] [address] 04 Feb, 2013 [facility] [address] [facility] [id number] [place] [address] 28 Jan, 2013 [facility] [address] [id number] [place] [address] 20 Jan, 2013 [facility] [address] [id number] [place] [address] 13 Jan, 2013 [facility] [address] [facility] [id number] [place] [address] 08 Jan, 2013 [facility] [address] [id number] [place] [address] 06 Jan, 2013 [facility] [address] [id number] [place] [address] 28 Dec, 2012 [facility] [address] [id number] [place] [address] 27 Dec, 2012 [facility] [address] [id number] [place] [address] 18 Dec, 2012 [facility] [address] [id number] [place] [address] Dec, [facility] [address] [id number] [place] [address] Dec, [facility] [address] [id number] [place] [address] 05 Dec, 2012 [facility] [address] [place] [id number] 14 Nov, 2012 [facility] [address] [id number] [place] [address] Nov, [facility] [address] [id number] [place] [address] 10 Nov, 2012 [facility] [address] [id number] [place] [address] Nov, [facility] [address] [id number] [place] [address] Nov, [facility] [address] [id number] [place] [address] Oct, [facility] [address] [id number] [place] [address] Oct, [facility] [address] [id number] [place] [address] Oct, [facility] [address] [id number] [place] [address] Oct, [facility] [address] [id number] [place] [address] Oct, [facility] [address] [id number] [place] [address] Oct, [facility] [address] [id number] [place] [address] Oct, [facility] [address] [id number] [place] [address] Oct, [facility] [address] [id number] [place] [address] Sep, [facility] [address] [id number] [place] [address] Sep, [facility] [address] [id number] [place] [address] Sep, [facility] [address] [id number] [place] [address] Sep, [facility] [address] [id number] [place] [address] Sep, [facility] [address] [id number] [place] [address] Sep, [facility] [address] [id number] [place] [address] Sep, [facility] [address] [id number] [place] [address] Sep, [facility] [address] [id number] [place] [address] Sep, [facility] [id number] [place] [address] Sep, [facility] [id number] [place] [address] Sep, [facility] [id number] [place] [address] Sep, [facility] [id number] [place] [address] Sep, [facility] [id number] [place] [address] Sep, [facility] [address] [id number] [place] [address] Sep, [facility] [address] [id number] [place] [address] Sep, IMMUNIZATIONS No Known Immunizations SOCIAL HISTORY [...]
--- OUTSIDE RECORDS SUMMARY | 2020-04-17 21:27 | XMS REPORT ---
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 Active 32925617 Problem Other chronic pain G89.29 Active 8 0144033 Problem Hypertension, essential I10 Active 06015847 Problem Vitamin D deficiency E55.9 Active 64773398 Problem Mood disorder F39 Active 548188 05 Problem Type 1 diabetes mellitus with hyperglycemia E10.65 Active [id number] Problem Type 1 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 Active 48307080 Problem Chronic fatigue R53.82 Active 8422 9001 Problem Controlled diabetes mellitus type 1 without complications E10.9 Active 52921116 ALLERGIES No Information ENCOUNTERS Encounter Location Date Diagnosis [place] [address] [address] Nov, Type 1 diabetes mellitus with diabetic p olyneuropathy E10.42 ; Mood disorder F39 ; Vitamin D deficiency E55.9 and Renal insufficiency N28.9 [place] [address] [address] Nov, Type 1 diabetes mellitus with other diab etic neurological complication E10.49 [place] [address] [address] Oct, Other chronic pain G89.29 [place] [address] [address] Oct, Type 1 diabetes mellitus with other diab etic neurological complication E10.49 [place] [address] [place] [id number] [place] [address] Oct, [facility] [address] [address] Aug, Type 1 diabetes mellitus with other diab etic neurological complication E10.49 [facility] [address] [address] 14 Aug, 2019 Encounter for immunization Z23 [facility] [address] [address] 08 Aug, 2019 Vitamin D deficiency E55.9 [facility] [address] [address] Jul, Type 1 diabetes mellitus with other diab etic neurological complication E10.49 [facility] [address] [address] Jul, Type 1 diabetes mellitus with hyperglyce uma E10.65 [facility] [address] [address] Jun, Type 1 diabetes mellitus with other diab etic neurological complication E10.49 [facility] [address] [address] May, [facility] [address] [address] May, [facility] [address] [address] May, Other chronic pain G89.29 [facility] [address] [place] [id number] [place] [address] May, [facility] [address] [address] May, Type 1 diabetes mellitus with other diab etic neurological complication E10.49 [facility] [address] [place] [id number] [place] [address] Apr, [facility] [address] [address] Apr, Type 1 diabetes mellitus with other diab etic neurological complication E10.49 [facility] [address] [id number] [place] [address] Apr, Encounter for Medicare annual wellness e xam Z00.00 [facility] [address] [id number] [place] [address] March, Encounter for Medicare annual wellness e xam Z00.00 and Type 1 diabetes mellitus with other diabetic neurological complication E10.49 [facility] [address] [place] [id number] [place] [address] Feb, Type 1 diabetes mellitus with other diab etic neurological complication E10.49 [facility] [address] [place] [id number] [place] [address] Feb, Encounter for Medicare annual wellness e xam Z00.00 ; Mood disorder F39 ; Type 1 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 ; Hypertension, essential I10 and Chronic fatigue R53.82 [facility] [address] [place] [id number] [place] [address] Jan, Type 1 diabetes mellitus with other diab etic neurological complication E10.49 [facility] [address] [place] [id number] [place] [address] Jan, [facility] [address] [place] [id number] [place] [address] Jan, Other chronic pain G89.29 [facility] [address] [place] [id number] [place] [address] Dec, [facility] [address] [place] [id number] [place] [address] Dec, Type 1 diabetes mellitus with other diab etic neurological complication E10.49 [facility] [address] [place] [id number] [place] [address] 05 Dec, 2018 Other chronic pain G89.29 [facility] [address] [id number] [place] [address] Nov, [facility] [address] [id number] Nov, Caries K02.9 [place] [address] [address] 15 Nov, 2018 Type 1 diabetes mellitus with other diab etic neurological complication E10.49 [place] [address] [address] 07 Nov, 2018 Controlled diabetes mellitus type 1 with out complications E10.9 ; Other chronic pain G89.29 and Pain in left knee M25.562 [facility] [address] [id number] Oct, Dental examination Z01.20 [place] [address] [address] 14 Oct, 2018 Cutaneous abscess of unspecified foot L0 2.619 and Cellulitis of unspecified part of limb L03.119 [place] [address] [address] Oct, [place] [address] [address] 10 Oct, 2018 Type 1 diabetes mellitus with other diab etic neurological complication E10.49 [facility] [address] [id number] 06 Oct, 2018 Dental examination Z01.20 and Caries K02 .9 [place] [address] [address] 04 Oct, 2018 Cutaneous abscess of left foot L02.612 a nd Cellulitis of left lower limb L03.116 [place] [address] [address] 04 Oct, 2018 Dental examination Z01.20 and Pain, dent al K08.89 [facility] [address] [facility] [id number] [address] Sep, Left foot pain M79.672 and L eft anterior knee pain M25.562 [place] [address] [address] Sep, Type 1 diabetes mellitus with other diab etic neurological complication E10.49 [facility] [address] [address] Sep, [facility] [address] [address] Aug, Type 1 diabetes mellitus with other diab etic neurological complication E10.49 [place] [address] [address] 10 Aug, 2018 Encounter for immunization Z23 [facility] [address] [address] 05 Aug, 2018 Type 1 diabetes mellitus with hyperglyce uma E10.65 [place] [address] [address] 21 Jul, 2018 Type 1 diabetes mellitus with hyperglyce uma E10.65 [place] [address] [address] Jul, [facility] [address] [address] 18 Jul, 2018 [facility] [address] [address] Jul, Type 1 diabetes mellitus with other diab etic neurological complication E10.49 [place] [address] [address] Jul, Type 1 diabetes mellitus with other diab etic neurological complication E10.49 and Mood disorder F39 [facility] [address] [address] Jun, [facility] [address] [address] Jun, Type 1 diabetes mellitus with other diab etic neurological complication E10.49 and Chronic fatigue R53.82 [facility] [address] [address] May, Type 1 diabetes mellitus with other diab etic neurological complication E10.49 [facility] [address] [place] [address] May, [facility] [address] [id number] [place] [address] May, [facility] [address] [id number] [place] [address] Apr, [facility] [address] [id number] [place] [address] Apr, Type 1 diabetes mellitus with other diab etic neurological complication E10.49 [facility] [address] [place] [id number] [place] [address] March, [facility] [address] [place] [id number] [place] [address] Feb, [facility] [address] [place] [id number] [place] [address] Feb, Type 1 diabetes mellitus with other diab etic neurological complication E10.49 ; Tobacco abuse Z72.0 and Tobacco abuse counseling Z71.6 [facility] [address] [place] [id number] [place] [address] Jan, Type 1 diabetes mellitus with hyperglyce uma E10.65 [facility] [address] [place] [id number] [place] [address] Jan, [facility] [address] [place] [id number] [place] [address] Dec, Tobacco abuse Z72.0 [facility] [address] [place] [id number] [place] [address] Dec, Type 1 diabetes mellitus with hyperglyce uma E10.65 [facility] [address] [place] [id number] [place] [address] Dec, Type 1 diabetes mellitus with hyperglyce uma E10.65 ; Tobacco abuse Z72.0 and Tobacco abuse counseling Z71.6 [facility] [address] [place] [id number] [place] [address] Nov, Type 1 diabetes mellitus with hyperglyce uma E10.65 [facility] [address] [place] [id number] [place] [address] Oct, Type 1 diabetes mellitus with hyperglyce uma E10.65 [facility] [address] [address] Oct, Type 1 diabetes mellitus with hyperglyce uma E10.65 [facility] [address] [place] [id number] [place] [address] Sep, Type 1 diabetes mellitus with hyperglyce uma E10.65 [facility] [address] [address] Aug, Type 1 diabetes mellitus with hyperglyce uma E10.65 [facility] [address] [address] Aug, [facility] [address] [address] Aug, Type 1 diabetes mellitus with hyperglyce uma E10.65 [place] [address] [address] Aug, Encounter for immunization Z23 [facility] [address] [address] Aug, Type 1 diabetes mellitus with hyperglyce uma E10.65 [facility] [address] [place] [id number] [place] [address] Jul, Type 1 diabetes mellitus with hyperglyce uma E10.65 [place] [address] [address] Jul, Type 1 diabetes mellitus with hyperglyce uma E10.65 [facility] [address] [address] May, Type 1 diabetes mellitus with hyperglyce uma E10.65 [facility] [address] [address] May, [facility] [address] [address] Apr, [facility] [address] [address] Apr, Type 1 diabetes mellitus with hyperglyce uma E10.65 [facility] [address] [place] [id number] [place] [address] March, [facility] [address] [place] [id number] [place] [address] March, [facility] [address] [address] Jan, [facility] [address] [address] Jan, [facility] [address] [address] Jan, Type 1 diabetes mellitus with diabetic p olyneuropathy E10.42 [facility] [address] [address] Jan, Type 1 diabetes mellitus with hyperglyce uma E10.65 ; Excessive cerumen in both ear canals H61.23 and Controlled diabetes mellitus type 1 without complications E10.9 [facility] [address] [place] [id number] [place] [address] Dec, [facility] [address] [address] Dec, [facility] [address] [address] Dec, [facility] [address] [address] Dec, [facility] [address] [place] [id number] [place] [address] Nov, [facility] [address] [address] Nov, [facility] [address] [place] [id number] [place] [address] Oct, Type 1 diabetes mellitus with hyperglyce uma E10.65 [facility] [address] [address] Sep, [facility] [address] [address] Sep, [facility] [address] [address] Sep, Controlled diabetes mellitus type 1 with out complications E10.9 [facility] [address] [address] Sep, [facility] [address] [id number] Aug, Dental caries K02.9 [facility] [address] [address] Aug, Type 1 diabetes mellitus with diabetic p olyneuropathy E10.42 [facility] [address] [address] Aug, [facility] [address] [address] Aug, [facility] [address] [address] Aug, [facility] [address] [address] Jul, Type 1 diabetes mellitus with hyperglyce uma E10.65 [facility] [address] [address] Jul, 2016 Type 1 diabetes mellitus with hyperglyce uma E10.65 ; Tooth pain K08.8 and Encounter for immunization Z23 [facility] [address] [id number] 08 Jul, 2016 Dental examination Z01.20 [facility] [address] [address] 08 Jul, 2016 [facility] [address] [address] 07 Jul, 2016 [facility] [address] [address] 02 Jul, 2016 [facility] [address] [id number] [place] [address] Jun, [facility] [address] [id number] [place] [address] May, [facility] [address] [id number] [place] [address] Apr, [facility] [address] [id number] [place] [address] Apr, [facility] [address] [id number] [place] [address] Apr, [facility] [address] [id number] [place] [address] March, [facility] [address] [id number] [place] [address] March, [facility] [address] [id number] [place] [address] Feb, [facility] [address] [place] [id number] [place] [address] Feb, [facility] [address] [id number] [place] [address] Feb, Type 1 diabetes mellitus with hyperglyce uma E10.65 [facility] [address] [id number] [place] [address] Jan, [facility] [address] [place] [id number] [place] [address] Jan, [facility] [address] [id number] [place] [address] Jan, [facility] [address] [id number] [place] [address] Jan, [facility] [address] [id number] [place] [address] Dec, [facility] [address] [id number] [place] [address] Nov, [facility] [address] [address] 14 Nov, 2015 [facility] [address] [address] Oct, [facility] [address] [address] Oct, Type 1 diabetes mellitus with diabetic a utonomic (poly)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 ; Type 1 diabetes mellitus with hyperglycemia E10.65 ; Gastroparesis K31.84 and Esophageal stricture K22.2 [facility] [address] [address] Oct, [facility] [address] [address] Sep, [facility] [address] [address] Sep, Type 1 diabetes mellitus with other diab etic neurological complication E10.49 [facility] [address] [address] Aug, Encounter for immunization Z23 [facility] [address] [address] Aug, [facility] [address] [address] Aug, [facility] [address] [address] Jul, [facility] [address] [address] Jul, [facility] [address] [address] Jun, [facility] [address] [address] Jun, [facility] [address] [address] Jun, [facility] [address] [address] May, [facility] [address] [place] [id number] [place] [address] May, [facility] [address] [place] [id number] [place] [address] May, Diabetes type 1, controlled 250.01 [facility] [address] [place] [id number] [place] [address] May, [facility] [address] [address] May, [facility] [address] [id number] Apr, Dental examination V72.2 [facility] [address] [place] [id number] [place] [address] Apr, [facility] [address] [address] Apr, [facility] [address] [address] Apr, [facility] [address] [address] Apr, [facility] [address] [place] [id number] [place] [address] Apr, [facility] [address] [place] [id number] [place] [id number] Apr, Dental examination V72.2 [facility] [address] [place] [id number] [place] [address] Apr, [facility] [address] [address] Apr, [facility] [address] [address] March, Diabetes mellitus type 1 250.01 [facility] [address] [place] [id number] [place] [address] March, [facility] [address] [address] Feb, [facility] [address] [id number] [place] [address] Feb, [facility] [address] [id number] [place] [address] Jan, [facility] [address] [id number] [place] [address] Jan, [facility] [address] [id number] [place] [address] Jan, [facility] [address] [id number] [place] [address] Jan, [facility] [address] [id number] [place] [address] Dec, [facility] [address] [id number] [place] [address] Dec, [facility] [address] [id number] [place] [address] Nov, [facility] [address] [id number] [place] [address] Nov, [facility] [address] [id number] [place] [address] Nov, [facility] [address] [id number] [place] [address] Nov, [facility] [address] [id number] [place] [address] Nov, [facility] [address] [id number] [place] [address] Nov, [facility] [address] [id number] [place] [address] Nov, [facility] [address] [id number] [place] [address] Oct, [facility] [address] [id number] [place] [address] Oct, [facility] [address] [id number] [place] [address] Sep, [facility] [address] [facility] [id number] [place] [address] Aug, [facility] [address] [facility] [id number] [place] [address] Aug, [facility] [address] [id number] [place] [address] Aug, [facility] [address] [facility] [id number] [place] [address] Aug, [facility] [address] [facility] [id number] [place] [address] Aug, [facility] [address] [id number] [place] [address] Aug, [facility] [address] [id number] [place] [address] Aug, [facility] [address] [id number] [place] [address] Aug, [facility] [address] [id number] [place] [address] Aug, [facility] [address] [id number] [place] [address] Aug, [facility] [address] [id number] [place] [address] Aug, [facility] [address] [id number] [place] [address] Aug, 2013 [facility] [address] [facility] [id number] [place] [address] Aug, 2013 [facility] [address] [id number] [place] [address] Aug, 2013 [facility] [address] [id number] [place] [address] Jul, 2013 [facility] [address] [id number] [place] [address] Jul, 2013 [facility] [address] [id number] [facility] [place] [address] Jul, [facility] [address] [id number] [facility] [place] [address] Jul, [facility] [address] [facility] [id number] [facility] [address] Jun, [facility] [address] [facility] [id number] [place] [address] Jun, [facility] [address] [facility] [id number] [facility] [place] [address] Jun, [facility] [address] [facility] [id number] [facility] [place] [address] Jun, [facility] [address] [facility] [id number] [place] [address] May, [facility] [address] [id number] [place] [address] May, [facility] [address] [facility] [id number] [place] [address] May, [facility] [address] [facility] [id number] [place] [address] May, [facility] [address] [id number] [place] [address] May, [facility] [address] [id number] [place] [address] May, [facility] [address] [facility] [id number] [place] [address] May, [facility] [address] [id number] [place] [address] May, [facility] [address] [id number] [place] [address] May, [facility] [address] [facility] [id number] [place] [address] May, [facility] [address] [id number] [place] [address] May, [facility] [address] [facility] [id number] [place] [address] May, [facility] [address] [facility] [id number] [place] [address] May, [facility] [address] [id number] [place] [address] Apr, [facility] [address] [id number] [place] [address] Apr, [facility] [address] [facility] [id number] [place] [address] Apr, [facility] [address] [id number] [place] [address] Apr, [facility] [address] [id number] [place] [address] Apr, [facility] [address] [id number] [place] [address] Apr, [facility] [address] [id number] [place] [address] Apr, [facility] [address] [id number] [place] [address] Apr, [facility] [address] [id number] [place] [address] Apr, [facility] [address] [id number] [place] [address] Apr, [facility] [address] [id number] [place] [address] Apr, [facility] [address] [id number] [place] [address] Apr, [facility] [address] [id number] [place] [address] Apr, [facility] [address] [id number] [place] [address] Apr, [facility] [address] [id number] [place] [address] March, [facility] [address] [facility] [id number] [facility] [place] [address] March, [facility] [address] [facility] [id number] [facility] [place] [address] March, [facility] [address] [id number] [facility] [address] March, [facility] [address] [id number] [facility] [address] March, [facility] [address] [facility] [id number] [facility] [address] March, [facility] [address] [id number] [place] [address] March, [facility] [address] [id number] [place] [address] March, [facility] [address] [id number] [place] [address] March, [facility] [address] [facility] [id number] [facility] [address] March, [facility] [address] [id number] [facility] [address] Feb, [facility] [address] [id number] [place] [address] Feb, [facility] [address] [id number] [facility] [address] Feb, [facility] [address] [facility] [id number] [facility] [address] Feb, [facility] [address] [id number] [place] [address] Feb, [facility] [address] [id number] [facility] [address] Feb, [facility] [address] [id number] [facility] [address] Feb, [facility] [address] [facility] [id number] [place] [address] Feb, [facility] [address] [facility] [id number] [place] [address] Jan, [facility] [address] [facility] [id number] [place] [address] Jan, [facility] [address] [id number] [place] [address] Jan, [facility] [address] [facility] [id number] [place] [address] Jan, [facility] [address] [id number] [place] [address] Jan, [facility] [address] [id number] [place] [address] Jan, [facility] [address] [id number] [place] [address] Jan, [facility] [address] [id number] [place] [address] Jan, [facility] [address] [id number] [place] [address] Jan, [facility] [address] [id number] [place] [address] Jan, [facility] [address] [id number] [place] [address] Dec, [facility] [address] [id number] [place] [address] Dec, [facility] [address] [facility] [id number] [place] [address] Nov, [facility] [address] [id number] [place] [address] Nov, [facility] [address] [id number] [place] [address] Nov, [facility] [address] [id number] [place] [address] Nov, [facility] [address] [id number] [place] [address] Nov, [facility] [address] [id number] [place] [address] Nov, [facility] [address] [id number] [place] [address] Nov, [facility] [address] [id number] [place] [address] Nov, [facility] [address] [id number] [place] [address] Oct, [facility] [address] [id number] [place] [address] Oct, [facility] [address] [id number] [place] [address] Oct, [facility] [address] [id number] [place] [address] Oct, [facility] [address] [id number] [place] [address] Oct, [facility] [address] [id number] [place] [address] Oct, [facility] [address] [id number] [place] [address] Sep, [facility] [address] [id number] [place] [address] Sep, [facility] [address] [id number] [place] [address] Sep, [facility] [address] [id number] [place] [address] Sep, [facility] [address] [id number] [place] [address] 05 Sep, 2013 [facility] [address] [id number] [place] [address] 30 Aug, 2013 [facility] [address] [id number] [place] [address] Aug, [facility] [address] [facility] [id number] [facility] [address] Aug, [facility] [address] [id number] [place] [address] Aug, [facility] [address] [id number] [place] [address] Aug, [facility] [address] [id number] [place] [address] Aug, [facility] [address] [id number] [place] [address] Jul, [facility] [address] [id number] [place] [address] Jul, [facility] [address] [id number] [place] [address] Jul, [facility] [address] [id number] [place] [address] Jun, [facility] [address] [id number] [place] [address] Jun, [facility] [address] [id number] [place] [address] May, [facility] [address] [id number] [place] [address] May, [facility] [address] [id number] [place] [address] Apr, [facility] [address] [id number] [place] [address] Apr, [facility] [address] [id number] [place] [address] Apr, [facility] [address] [id number] [place] [address] March, [facility] [address] [id number] [place] [address] Feb, [facility] [address] [id number] [place] [address] 04 Feb, 2013 [facility] [address] [id number] [place] [address] 28 Jan, 2013 [facility] [address] [id number] [place] [address] Jan, [facility] [address] [id number] [place] [address] Jan, [facility] [address] [id number] [place] [address] 08 Jan, 2013 [facility] [address] [id number] [place] [address] Jan, [facility] [address] [id number] [place] [address] Dec, [facility] [address] [id number] [place] [address] Dec, [facility] [address] [id number] [place] [address] Dec, [facility] [address] [id number] [place] [address] Dec, [facility] [address] [id number] [place] [address] Dec, [facility] [address] [id number] [place] [address] Dec, [facility] [address] [place] [id number] 14 Nov, 2012 [facility] [address] [id number] [place] [address] Nov, [facility] [address] [id number] [place] [address] Nov, [facility] [address] [id number] [place] [address] Nov, [facility] [address] [id number] [place] [address] Nov, [facility] [address] [id number] [place] [address] Oct, [facility] [address] [id number] [place] [address] Oct, [facility] [address] [id number] [place] [address] Oct, [facility] [address] [id number] [place] [address] Oct, [facility] [address] [id number] [place] [address] Oct, [facility] [address] [id number] [place] [address] Oct, [facility] [address] [id number] [place] [address] Oct, [facility] [address] [id number] [place] [address] Oct, [facility] [address] [id number] [place] [address] Sep, [facility] [address] [id number] [place] [address] Sep, [facility] [address] [id number] [place] [address] Sep, [facility] [address] [id number] [place] [address] Sep, [facility] [address] [id number] [place] [address] Sep, [facility] [address] [id number] [place] [address] Sep, [facility] [address] [id number] [place] [address] Sep, [facility] [address] [id number] [place] [address] Sep, [facility] [address] [id number] [place] [address] Sep, [facility] [id number] [place] [address] Sep, [facility] [id number] [place] [address] Sep, [facility] [address] [address] Sep, [facility] [address] [address] Sep, [facility] [id number] [place] [address] Sep, [facility] [id number] [place] [address] Sep, [facility] [id number] [place] [address] Sep, IMMUNIZATIONS No Known Immunizations SOCIAL HISTORY [...]
--- OUTSIDE RECORDS SUMMARY | 2020-04-17 21:27 | XMS REPORT ---
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 Active 99895232 Problem Other chronic pain G89.29 Active 8 7856522 Problem Hypertension, essential I10 Active 37817242 Problem Vitamin D deficiency E55.9 Active 62878708 Problem Mood disorder F39 Active 820050 05 Problem Type 1 diabetes mellitus with hyperglycemia E10.65 Active [id number] Problem Type 1 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 Active 31888406 Problem Chronic fatigue R53.82 Active 8422 9001 Problem Controlled diabetes mellitus type 1 without complications E10.9 Active 11102876 ALLERGIES No Information ENCOUNTERS Encounter Location Date Diagnosis [place] [address] [address] Nov, Type 1 diabetes mellitus with diabetic p olyneuropathy E10.42 ; Mood disorder F39 ; Vitamin D deficiency E55.9 and Renal insufficiency N28.9 [place] [address] [address] Nov, Type 1 diabetes mellitus with other diab etic neurological complication E10.49 [place] [address] [address] Oct, Other chronic pain G89.29 [place] [address] [address] Oct, Type 1 diabetes mellitus with other diab etic neurological complication E10.49 [place] [address] [address] Oct, [facility] [place] [address] [place] [id number] [place] [address] Aug, Type 1 diabetes mellitus with other diab etic neurological complication E10.49 [facility] [place] [address] [place] [address] [id number] [place] [address] 14 Aug, 2019 Encounter for immunization Z23 [facility] [place] [address] [place] [address] [id number] [place] [address] 08 Aug, 2019 Vitamin D deficiency E55.9 [facility] [place] [address] [place] [id number] [place] [address] Jul, Type 1 diabetes mellitus with other diab etic neurological complication E10.49 [facility] [place] [address] [place] [id number] [place] [address] Jul, Type 1 diabetes mellitus with hyperglyce uma E10.65 [facility] [place] [address] [id number] [place] [address] Jun, Type 1 diabetes mellitus with other diab etic neurological complication E10.49 [facility] [place] [address] [place] [id number] [place] [address] May, [facility] [place] [address] [address] May, [facility] [place] [address] [place] [id number] [place] [address] May, Other chronic pain G89.29 [facility] [place] [address] [place] [id number] [place] [address] May, [facility] [place] [address] [place] [address] [id number] [place] [address] May, Type 1 diabetes mellitus with other diab etic neurological complication E10.49 [facility] [place] [address] [place] [id number] [place] [address] Apr, [facility] [place] [address] [place] [address] [id number] [place] [address] Apr, Type 1 diabetes mellitus with other diab etic neurological complication E10.49 [facility] [place] [address] [place] [id number] [place] [address] Apr, Encounter for Medicare annual wellness e xam Z00.00 [place] [address] [place] [address] [id number] [place] [address] March, Encounter for Medicare annual wellness e xam Z00.00 and Type 1 diabetes mellitus with other diabetic neurological complication E10.49 [place] [address] [place] [id number] [place] [address] Feb, Type 1 diabetes mellitus with other diab etic neurological complication E10.49 [place] [address] [place] [address] [id number] [place] [address] Feb, Encounter for Medicare annual wellness e xam Z00.00 ; Mood disorder F39 ; Type 1 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 ; Hypertension, essential I10 and Chronic fatigue R53.82 [place] [address] [place] [id number] [place] [address] Jan, Type 1 diabetes mellitus with other diab etic neurological complication E10.49 [facility] [place] [address] [place] [id number] [place] [address] Jan, [facility] [place] [address] [place] [id number] [place] [address] Jan, Other chronic pain G89.29 [place] [address] [place] [id number] [place] [address] Dec, [facility] [place] [address] [place] [id number] [place] [address] Dec, Type 1 diabetes mellitus with other diab etic neurological complication E10.49 [facility] [place] [address] [place] [id number] [place] [address] 05 Dec, 2018 Other chronic pain G89.29 [facility] [place] [address] [place] [id number] [place] [address] Nov, [facility] [address] [id number] [place] [id number] Nov, Caries K02.9 [place] [address] [address] Nov, Type 1 diabetes mellitus with other diab etic neurological complication E10.49 [place] [address] [address] Nov, Controlled diabetes mellitus type 1 with out complications E10.9 ; Other chronic pain G89.29 and Pain in left knee M25.562 [facility] [address] [id number] Oct, Dental examination Z01.20 [place] [address] [address] 14 Oct, 2018 Cutaneous abscess of unspecified foot L0 2.619 and Cellulitis of unspecified part of limb L03.119 [place] [address] [address] 11 Oct, 2018 [place] [address] [address] 10 Oct, 2018 Type 1 diabetes mellitus with other diab etic neurological complication E10.49 [facility] [address] [id number] Oct, Dental examination Z01.20 and Caries K02 .9 [place] [address] [address] 04 Oct, 2018 Cutaneous abscess of left foot L02.612 a nd Cellulitis of left lower limb L03.116 [place] [address] [address] Oct, Dental examination Z01.20 and Pain, dent al K08.89 [facility] [address] [facility] [id number] [address] [place] [address] Sep, Left foot pain M79.672 and L eft anterior knee pain M25.562 [place] [address] [address] Sep, Type 1 diabetes mellitus with other diab etic neurological complication E10.49 [place] [address] [place] [id number] [place] [address] Sep, [facility] [place] [address] [address] Aug, Type 1 diabetes mellitus with other diab etic neurological complication E10.49 [facility] [place] [address] [place] [id number] [place] [address] 10 Aug, 2018 Encounter for immunization Z23 [facility] [place] [address] [address] 05 Aug, 2018 Type 1 diabetes mellitus with hyperglyce uma E10.65 [facility] [place] [address] [address] 21 Jul, 2018 Type 1 diabetes mellitus with hyperglyce uma E10.65 [facility] [place] [address] [place] [id number] [place] [address] 19 Jul, 2018 [facility] [place] [address] [address] 18 Jul, 2018 [facility] [place] [address] [address] 17 Jul, 2018 Type 1 diabetes mellitus with other diab etic neurological complication E10.49 [facility] [place] [address] [place] [id number] [place] [address] Jul, Type 1 diabetes mellitus with other diab etic neurological complication E10.49 and Mood disorder F39 [facility] [place] [address] [place] [id number] [place] [address] Jun, [facility] [place] [address] [address] Jun, Type 1 diabetes mellitus with other diab etic neurological complication E10.49 and Chronic fatigue R53.82 [facility] [place] [address] [place] [id number] [place] [address] May, Type 1 diabetes mellitus with other diab etic neurological complication E10.49 [facility] [place] [address] [place] [id number] [place] [address] May, [facility] [place] [address] [place] [id number] [place] [address] May, [facility] [place] [address] [place] [id number] [place] [address] Apr, [facility] [place] [address] [place] [id number] [place] [address] Apr, Type 1 diabetes mellitus with other diab etic neurological complication E10.49 [facility] [place] [address] [place] [id number] [place] [address] March, [facility] [place] [address] [place] [id number] [place] [address] Feb, [facility] [place] [address] [address] Feb, Type 1 diabetes mellitus with other diab etic neurological complication E10.49 ; Tobacco abuse Z72.0 and Tobacco abuse counseling Z71.6 [place] [address] [place] [id number] [place] [address] Jan, Type 1 diabetes mellitus with hyperglyce uma E10.65 [place] [address] [place] [id number] [place] [address] Jan, [facility] [place] [address] [place] [id number] [place] [address] Dec, Tobacco abuse Z72.0 [place] [address] [place] [id number] [place] [address] Dec, Type 1 diabetes mellitus with hyperglyce uma E10.65 [place] [address] [place] [id number] [place] [address] Dec, Type 1 diabetes mellitus with hyperglyce uma E10.65 ; Tobacco abuse Z72.0 and Tobacco abuse counseling Z71.6 [place] [address] [place] [id number] [place] [address] Nov, Type 1 diabetes mellitus with hyperglyce uma E10.65 [place] [address] [place] [id number] [place] [address] Oct, Type 1 diabetes mellitus with hyperglyce uma E10.65 [facility] [place] [address] [place] [id number] [place] [address] Oct, Type 1 diabetes mellitus with hyperglyce uma E10.65 [facility] [place] [address] [place] [id number] [place] [address] Sep, Type 1 diabetes mellitus with hyperglyce uma E10.65 [facility] [place] [address] [address] Aug, Type 1 diabetes mellitus with hyperglyce uma E10.65 [facility] [place] [address] [place] [id number] [place] [address] Aug, [place] [address] [address] Aug, Type 1 diabetes mellitus with hyperglyce uma E10.65 [place] [address] [address] Aug, Encounter for immunization Z23 [place] [address] [address] Aug, Type 1 diabetes mellitus with hyperglyce uma E10.65 [place] [address] [place] [id number] [place] [address] Jul, Type 1 diabetes mellitus with hyperglyce uma E10.65 [place] [address] [place] [id number] [place] [address] Jul, Type 1 diabetes mellitus with hyperglyce uma E10.65 [place] [address] [place] [id number] [place] [address] May, Type 1 diabetes mellitus with hyperglyce uma E10.65 [facility] [place] [address] [address] May, [facility] [place] [address] [address] Apr, [facility] [place] [address] [place] [id number] [place] [address] Apr, Type 1 diabetes mellitus with hyperglyce uma E10.65 [facility] [place] [address] [place] [id number] [place] [address] March, [facility] [place] [address] [address] March, [facility] [place] [address] [place] [id number] [place] [address] Jan, [facility] [place] [address] [address] Jan, [facility] [place] [address] [address] Jan, Type 1 diabetes mellitus with diabetic p olyneuropathy E10.42 [facility] [place] [address] [address] Jan, Type 1 diabetes mellitus with hyperglyce uma E10.65 ; Excessive cerumen in both ear canals H61.23 and Controlled diabetes mellitus type 1 without complications E10.9 [facility], [place] [address] [place] [id number] [place] [address] Dec, [facility], [place] [address] [address] Dec, [facility] [place] [address] [address] Dec, [facility] [place] [address] [address] Dec, [facility] [place] [address] [address] Nov, [facility] [place] [address] [place] [id number] [place] [address] Nov, [facility] [place] [address] [address] Oct, Type 1 diabetes mellitus with hyperglyce uma E10.65 [facility] [place] [address] [address] Sep, [facility] [place] [address] [address] Sep, [facility] [place] [address] [address] Sep, Controlled diabetes mellitus type 1 with out complications E10.9 [facility] [place] [address] [address] Sep, [facility] [address] [id number] Aug, Dental caries K02.9 [facility] [place] [address] [address] Aug, Type 1 diabetes mellitus with diabetic p olyneuropathy E10.42 [facility] [place] [address] [address] Aug, [facility] [place] [address] [address] Aug, [facility] [place] [address] [address] Aug, [facility] [place] [address] [address] Jul, Type 1 diabetes mellitus with hyperglyce uma E10.65 [facility] [place] [address] [address] Jul, Type 1 diabetes mellitus with hyperglyce uma E10.65 ; Tooth pain K08.8 and Encounter for immunization Z23 [facility] [address] [id number] Jul, Dental examination Z01.20 [facility] [place] [address] [address] Jul, [facility] [place] [address] [address] Jul, [facility] [place] [address] [address] Jul, [facility] [place] [address] [address] Jun, [facility] [place] [address] [id number] [place] [address] May, [facility] [place] [address] [id number] [place] [address] Apr, [facility] [address] [id number] [place] [address] Apr, [facility] [place] [address] [id number] [place] [address] Apr, [facility] [address] [id number] [place] [address] March, [facility] [address] [id number] [place] [address] March, [facility] [place] [address] [id number] [place] [address] Feb, [facility] [place] [address] [place] [id number] [place] [address] Feb, [facility] [address] [id number] [place] [address] Feb, Type 1 diabetes mellitus with hyperglyce uma E10.65 [facility] [place] [address] [id number] [place] [address] Jan, [facility] [place] [address] [id number] [place] [address] Jan, [facility] [place] [address] [id number] [place] [address] Jan, [facility] [address] [id number] [place] [address] Jan, [facility] [address] [id number] [place] [address] Dec, [facility] [address] [id number] [place] [address] Nov, [facility] [place] [address] [id number] [place] [address] Nov, [facility] [place] [address] [place] [id number] [place] [address] Oct, [facility] [place] [address] [address] Oct, Type 1 diabetes mellitus with diabetic a utonomic (poly)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 ; Type 1 diabetes mellitus with hyperglycemia E10.65 ; Gastroparesis K31.84 and Esophageal stricture K22.2 [facility] [place] [address] [address] Oct, [facility] [place] [address] [address] Sep, [facility] [place] [address] [address] Sep, Type 1 diabetes mellitus with other diab etic neurological complication E10.49 [facility] [place] [address] [address] Aug, Encounter for immunization Z23 [facility] [place] [address] [address] Aug, [facility] [place] [address] [address] Aug, [facility] [place] [address] [address] Jul, [facility] [place] [address] [address] Jul, [facility] [place] [address] [address] Jun, [facility] [place] [address] [address] Jun, [facility] [place] [address] [address] Jun, [facility] [place] [address] [address] May, [facility] [place] [address] [address] May, [facility] [place] [address] [place] [address] [id number] [place] [address] May, Diabetes type 1, controlled 250.01 [facility] [place] [address] [address] [id number] [place] [address] May, [facility] [place] [id number] [place] [address] May, [facility] [address] [place] [id number] [place] [address] Apr, Dental examination V72.2 [facility] [place] [address] [id number] [place] [address] Apr, [facility] [place] [address] [address] Apr, [facility] [place] [address] [id number] [place] [address] Apr, [facility] [place] [address] [address] Apr, [facility] [place] [id number] [place] [address] Apr, [facility] [address] [id number] [place] [id number] Apr, Dental examination V72.2 [facility] [place] [id number] [place] [address] Apr, [facility] [place] [address] [address] Apr, [facility] [place] [address] [id number] [place] [address] March, Diabetes mellitus type 1 250.01 [facility] [place] [id number] [place] [address] March, [facility] [place] [address] [id number] [place] [address] Feb, [facility] [place] [address] [address] Feb, [facility] [address] [facility] [id number] [place] [address] Jan, [facility] [address] [id number] [place] [address] Jan, [facility] [address] [id number] [place] [address] Jan, [facility] [address] [id number] [place] [address] Jan, [facility] [address] [facility] [id number] [place] [address] Dec, [facility] [address] [id number] [place] [address] Dec, [facility] [address] [id number] [place] [address] Nov, [facility] [address] [id number] [place] [address] Nov, [facility] [address] [id number] [place] [address] Nov, [facility] [address] [id number] [place] [address] Nov, [facility] [address] [id number] [place] [address] Nov, [facility] [address] [id number] [place] [address] Nov, [facility] [address] [id number] [place] [address] Nov, [facility] [address] [id number] [place] [address] Oct, [facility] [address] [id number] [place] [address] Oct, [facility] [address] [id number] [place] [address] Sep, [facility] [address] [id number] [place] [address] Aug, 2013 [facility] [address] [facility] [id number] [place] [address] Aug, 2013 [facility] [address] [id number] [place] [address] Aug, [facility] [address] [id number] [place] [address] Aug, [facility] [address] [id number] [place] [address] Aug, 2013 [facility] [address] [facility] [id number] [place] [address] Aug, [facility] [address] [id number] [place] [address] Aug, 2013 [facility] [address] [id number] [place] [address] Aug, 2013 [facility] [address] [id number] [place] [address] Aug, 2013 [facility] [address] [id number] [place] [address] Aug, [facility] [address] [id number] [place] [address] Aug, 2013 [facility] [address] [id number] [place] [address] Aug, 2013 [facility] [address] [id number] [place] [address] Aug, 2013 [facility] [address] [id number] [place] [address] Aug, 2013 [facility] [address] [id number] [place] [address] Jul, 2013 [facility] [address] [id number] [place] [address] Jul, 2013 [facility] [address] [id number] [place] [address] Jul, [facility] [address] [id number] [place] [address] Jul, [facility] [address] [facility] [id number] [place] [address] Jun, [facility] [address] [facility] [id number] [place] [address] Jun, [facility] [address] [facility] [id number] [place] [address] Jun, [facility] [address] [facility] [id number] [place] [address] Jun, [facility] [address] [facility] [facility] [id number] [place] [address] May, [facility] [address] [id number] [place] [address] May, [facility] [address] [id number] [place] [address] May, [facility] [address] [facility] [id number] [place] [address] May, [facility] [address] [id number] [place] [address] May, [facility] [address] [id number] [place] [address] May, [facility] [address] [id number] [place] [address] May, [facility] [address] [id number] [place] [address] May, [facility] [address] [facility] [id number] [place] [address] May, [facility] [address] [facility] [id number] [place] [address] May, [facility] [address] [id number] [place] [address] May, [facility] [address] [id number] [place] [address] May, [facility] [address] [facility] [id number] [place] [address] May, [facility] [address] [facility] [id number] [place] [address] Apr, [facility] [address] [id number] [place] [address] Apr, [facility] [address] [facility] [id number] [place] [address] Apr, [facility] [address] [facility] [id number] [place] [address] Apr, [facility] [address] [id number] [place] [address] Apr, [facility] [address] [id number] [place] [address] Apr, [facility] [address] [id number] [place] [address] Apr, [facility] [address] [id number] [place] [address] Apr, [facility] [address] [id number] [place] [address] Apr, [facility] [address] [id number] [place] [address] Apr, [facility] [address] [id number] [place] [address] Apr, [facility] [address] [facility] [id number] [place] [address] Apr, [facility] [address] [id number] [place] [address] Apr, [facility] [address] [id number] [place] [address] Apr, [facility] [address] [id number] [place] [address] March, [facility] [address] [facility] [id number] [place] [address] March, [facility] [address] [id number] [place] [address] March, [facility] [address] [id number] [place] [address] March, [facility] [address] [id number] [place] [address] March, [facility] [address] [id number] [place] [address] March, [facility] [address] [id number] [place] [address] March, [facility] [address] [id number] [place] [address] March, [facility] [address] [id number] [place] [address] March, [facility] [address] [id number] [place] [address] March, [facility] [address] [id number] [place] [address] Feb, [facility] [address] [id number] [place] [address] Feb, [facility] [address] [id number] [place] [address] Feb, [facility] [address] [id number] [place] [address] Feb, [facility] [address] [id number] [place] [address] Feb, [facility] [address] [id number] [place] [address] Feb, [facility] [address] [id number] [place] [address] Feb, [facility] [address] [id number] [place] [address] Feb, [facility] [address] [id number] [place] [address] Jan, [facility] [address] [id number] [place] [address] Jan, [facility] [address] [id number] [place] [address] Jan, [facility] [address] [id number] [place] [address] Jan, [facility] [address] [id number] [place] [address] Jan, [facility] [address] [id number] [place] [address] Jan, [facility] [address] [id number] [place] [address] Jan, [facility] [address] [id number] [place] [address] Jan, [facility] [address] [id number] [place] [address] Jan, [facility] [address] [id number] [place] [address] Jan, [facility] [address] [id number] [place] [address] Dec, [facility] [address] [id number] [place] [address] Dec, [facility] [address] [id number] [place] [address] Nov, [facility] [address] [id number] [place] [address] Nov, [facility] [address] [id number] [place] [address] Nov, [facility] [address] [id number] [place] [address] Nov, [facility] [address] [id number] [place] [address] Nov, [facility] [address] [id number] [place] [address] Nov, [facility] [address] [id number] [place] [address] Nov, [facility] [address] [id number] [place] [address] Nov, [facility] [address] [id number] [place] [address] Oct, [facility] [address] [id number] [place] [address] Oct, [facility] [address] [id number] [place] [address] Oct, [facility] [address] [id number] [place] [address] Oct, [facility] [address] [id number] [place] [address] Oct, [facility] [address] [id number] [place] [address] Oct, [facility] [address] [id number] [place] [address] Sep, [facility] [address] [id number] [place] [address] Sep, [facility] [address] [id number] [place] [address] Sep, [facility] [address] [id number] [place] [address] Sep, [facility] [address] [id number] [place] [address] Sep, [facility] [address] [id number] [place] [address] Aug, [facility] [address] [id number] [place] [address] Aug, [facility] [address] [facility] [id number] [place] [address] Aug, [facility] [address] [facility] [id number] [place] [address] Aug, [facility] [address] [id number] [place] [address] Aug, [facility] [address] [id number] [place] [address] Aug, [facility] [address] [id number] [place] [address] Jul, [facility] [address] [id number] [place] [address] Jul, [facility] [address] [id number] [place] [address] Jul, [facility] [address] [id number] [place] [address] Jun, [facility] [address] [id number] [place] [address] Jun, [facility] [address] [id number] [place] [address] May, [facility] [address] [id number] [place] [address] May, [facility] [address] [id number] [place] [address] Apr, [facility] [address] [id number] [place] [address] Apr, [facility] [address] [id number] [place] [address] Apr, [facility] [address] [id number] [place] [address] March, [facility] [address] [id number] [place] [address] Feb, [facility] [address] [id number] [place] [address] Feb, [facility] [address] [facility] [id number] [place] [address] Jan, [facility] [address] [facility] [id number] [place] [address] 20 Jan, 2013 [facility] [address] [facility] [id number] [place] [address] Jan, [facility] [address] [id number] [place] [address] 08 Jan, 2013 [facility] [address] [facility] [id number] [place] [address] Jan, [facility] [address] [id number] [place] [address] 28 Dec, 2012 [facility] [address] [id number] [place] [address] Dec, [facility] [address] [id number] [place] [address] Dec, [facility] [address] [id number] [place] [address] Dec, [facility] [address] [id number] [place] [address] Dec, [facility] [address] [id number] [place] [address] 05 Dec, 2012 [facility] [address] [place] [id number] Nov, [facility] [address] [id number] [place] [address] Nov, [facility] [address] [facility] [id number] [place] [address] Nov, [facility] [address] [id number] [place] [address] Nov, [facility] [address] [id number] [place] [address] Nov, [facility] [address] [id number] [place] [address] Oct, [facility] [address] [id number] [place] [address] Oct, [facility] [address] [id number] [place] [address] Oct, [facility] [address] [id number] [place] [address] Oct, [facility] [address] [id number] [place] [address] Oct, [facility] [address] [id number] [place] [address] Oct, [facility] [address] [id number] [place] [address] Oct, [facility] [address] [id number] [place] [address] Oct, [facility] [address] [id number] [place] [address] Sep, [facility] [address] [id number] [place] [address] Sep, [facility] [address] [id number] [place] [address] Sep, [facility] [address] [id number] [place] [address] Sep, [facility] [address] [id number] [place] [address] Sep, [facility] [address] [id number] [place] [address] Sep, [facility] [address] [id number] [place] [address] Sep, [facility] [address] [id number] [place] [address] Sep, [facility] [address] [id number] [place] [address] Sep, [facility] [address] [id number] [place] [address] Sep, [facility] [place] [address] [id number] [place] [address] Sep, [facility] [place] [address] [id number] [place] [address] Sep, [facility] [place] [id number] [place] [address] Sep, [facility] [place] [address] [id number] [place] [address] Sep, [facility] [place] [address] [id number] [place] [address] Sep, [facility] [place] [address] [id number] [place] [address] Sep, IMMUNIZATIONS No Known Immunizations SOCIAL HISTORY [...]
--- OUTSIDE RECORDS SUMMARY | 2020-04-17 21:27 | XMS REPORT ---
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 Active 83658475 Problem Other chronic pain G89.29 Active 8 6896774 Problem Hypertension, essential I10 Active 14982708 Problem Vitamin D deficiency E55.9 Active 34078633 Problem Mood disorder F39 Active 561798 05 Problem Type 1 diabetes mellitus with hyperglycemia E10.65 Active 083199439929521 Problem Type 1 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 Active 13258231 Problem Chronic fatigue R53.82 Active 8422 9001 Problem Controlled diabetes mellitus type 1 without complications E10.9 Active [id number] ALLERGIES No Information ENCOUNTERS Encounter Location Date Diagnosis [place] [address] [address] Nov, Type 1 diabetes mellitus with diabetic p olyneuropathy E10.42 ; Mood disorder F39 ; Vitamin D deficiency E55.9 and Renal insufficiency N28.9 [place] [address] [address] Nov, Type 1 diabetes mellitus with other diab etic neurological complication E10.49 [place] [address] [address] Oct, Other chronic pain G89.29 [place] [address] [address] Oct, Type 1 diabetes mellitus with other diab etic neurological complication E10.49 [place] [address] [address] Oct, [facility] [address] [place] [id number] [place] [address] Aug, Type 1 diabetes mellitus with other diab etic neurological complication E10.49 [facility] [id number] [place] [address] 14 Aug, 2019 Encounter for immunization Z23 [facility] [address] [id number] [place] [address] 08 Aug, 2019 Vitamin D deficiency E55.9 [facility] [id number] [place] [address] Jul, Type 1 diabetes mellitus with other diab etic neurological complication E10.49 [facility] [address] [address] [id number] [place] [address] Jul, Type 1 diabetes mellitus with hyperglyce uma E10.65 [facility] [address] [address] [id number] [place] [address] Jun, Type 1 diabetes mellitus with other diab etic neurological complication E10.49 [facility] [id number] [place] [address] May, [facility] [address] [address] May, [facility] [address] [address] [id number] [place] [address] May, Other chronic pain G89.29 [facility] [address] [place] [id number] [place] [address] May, [facility] [address] [address] [id number] [place] [address] May, Type 1 diabetes mellitus with other diab etic neurological complication E10.49 [facility] [address] [address] [id number] [place] [address] Apr, [facility] [id number] [place] [address] Apr, Type 1 diabetes mellitus with other diab etic neurological complication E10.49 [facility] [id number] [place] [address] Apr, Encounter for Medicare annual wellness e xam Z00.00 [place] [address] [id number] [place] [address] March, Encounter for Medicare annual wellness e xam Z00.00 and Type 1 diabetes mellitus with other diabetic neurological complication E10.49 [place] [address] [id number] [place] [address] Feb, Type 1 diabetes mellitus with other diab etic neurological complication E10.49 [place] [address] [place] [id number] [place] [address] Feb, Encounter for Medicare annual wellness e xam Z00.00 ; Mood disorder F39 ; Type 1 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 ; Hypertension, essential I10 and Chronic fatigue R53.82 [place] [address] [address] [id number] [place] [address] Jan, Type 1 diabetes mellitus with other diab etic neurological complication E10.49 [facility] [id number] [place] [address] Jan, [facility] [address] [place] [id number] [place] [address] Jan, Other chronic pain G89.29 [place] [address] [address] [id number] [place] [address] Dec, [facility] [address] [place] [address] [id number] [place] [address] Dec, Type 1 diabetes mellitus with other diab etic neurological complication E10.49 [facility] [address] [address] [id number] [place] [address] 05 Dec, 2018 Other chronic pain G89.29 [facility] [address] [place] [id number] [place] [address] Nov, [facility] [address] [id number] [place] [id number] Nov, Caries K02.9 [place] [address] [address] Nov, Type 1 diabetes mellitus with other diab etic neurological complication E10.49 [place] [address] [address] Nov, Controlled diabetes mellitus type 1 with out complications E10.9 ; Other chronic pain G89.29 and Pain in left knee M25.562 [facility] [address] [id number] Oct, Dental examination Z01.20 [place] [address] [address] 14 Oct, 2018 Cutaneous abscess of unspecified foot L0 2.619 and Cellulitis of unspecified part of limb L03.119 [place] [address] [address] 11 Oct, 2018 [place] [address] [address] 10 Oct, 2018 Type 1 diabetes mellitus with other diab etic neurological complication E10.49 [facility] [address] [id number] Oct, Dental examination Z01.20 and Caries K02 .9 [place] [address] [address] 04 Oct, 2018 Cutaneous abscess of left foot L02.612 a nd Cellulitis of left lower limb L03.116 [place] [address] [address] Oct, Dental examination Z01.20 and Pain, dent al K08.89 [facility] [address] [facility] [id number] [address] [place] [address] Sep, Left foot pain M79.672 and L eft anterior knee pain M25.562 [place] [address] [address] Sep, Type 1 diabetes mellitus with other diab etic neurological complication E10.49 [place] [address] [place] [id number] [place] [address] Sep, [facility] [address] [address] Aug, Type 1 diabetes mellitus with other diab etic neurological complication E10.49 [facility] [address] [place] [id number] [place] [address] 10 Aug, 2018 Encounter for immunization Z23 [facility] [address] [address] 05 Aug, 2018 Type 1 diabetes mellitus with hyperglyce uma E10.65 [facility] [address] [address] 21 Jul, 2018 Type 1 diabetes mellitus with hyperglyce uma E10.65 [facility] [address] [place] [id number] [place] [address] 19 Jul, 2018 [facility] [address] [address] 18 Jul, 2018 [facility] [address] [address] 17 Jul, 2018 Type 1 diabetes mellitus with other diab etic neurological complication E10.49 [facility] [address] [place] [id number] [place] [address] Jul, Type 1 diabetes mellitus with other diab etic neurological complication E10.49 and Mood disorder F39 [facility] [address] [place] [id number] [place] [address] Jun, [facility] [address] [address] Jun, Type 1 diabetes mellitus with other diab etic neurological complication E10.49 and Chronic fatigue R53.82 [facility] [address] [place] [id number] [place] [address] May, Type 1 diabetes mellitus with other diab etic neurological complication E10.49 [facility] [address] [place] [id number] [place] [address] May, [facility] [address] [id number] [place] [address] May, [facility] [address] [address] [id number] [place] [address] Apr, [facility] [address] [place] [address] [id number] [place] [address] Apr, Type 1 diabetes mellitus with other diab etic neurological complication E10.49 [facility] [address] [place] [id number] [place] [address] March, [facility] [address] [place] [id number] [place] [address] Feb, [facility] [address] [address] Feb, Type 1 diabetes mellitus with other diab etic neurological complication E10.49 ; Tobacco abuse Z72.0 and Tobacco abuse counseling Z71.6 [place] [address] [place] [id number] [place] [address] Jan, Type 1 diabetes mellitus with hyperglyce uma E10.65 [place] [address] [place] [id number] [place] [address] Jan, [facility] [address] [place] [id number] [place] [address] Dec, Tobacco abuse Z72.0 [place] [address] [place] [id number] [place] [address] Dec, Type 1 diabetes mellitus with hyperglyce uma E10.65 [place] [address] [place] [id number] [place] [address] Dec, Type 1 diabetes mellitus with hyperglyce uma E10.65 ; Tobacco abuse Z72.0 and Tobacco abuse counseling Z71.6 [place] [address] [place] [id number] [place] [address] Nov, Type 1 diabetes mellitus with hyperglyce uma E10.65 [place] [address] [place] [id number] [place] [address] Oct, Type 1 diabetes mellitus with hyperglyce uma E10.65 [facility] [address] [place] [id number] [place] [address] Oct, Type 1 diabetes mellitus with hyperglyce uam E10.65 [facility] [address] [place] [id number] [place] [address] Sep, Type 1 diabetes mellitus with hyperglyce uma E10.65 [facility] [address] [address] Aug, Type 1 diabetes mellitus with hyperglyce uma E10.65 [facility] [address] [place] [id number] [place] [address] Aug, [place] [address] [address] Aug, Type 1 diabetes mellitus with hyperglyce uma E10.65 [place] [address] [address] Aug, Encounter for immunization Z23 [place] [address] [address] Aug, Type 1 diabetes mellitus with hyperglyce uma E10.65 [place] [address] [place] [id number] [place] [address] Jul, Type 1 diabetes mellitus with hyperglyce uma E10.65 [place] [address] [place] [id number] [place] [address] Jul, Type 1 diabetes mellitus with hyperglyce uma E10.65 [place] [address] [place] [address] [id number] [place] [address] May, Type 1 diabetes mellitus with hyperglyce uma E10.65 [facility] [address] [address] May, [facility] [address] [address] Apr, [facility] [address] [place] [id number] [place] [address] Apr, Type 1 diabetes mellitus with hyperglyce uma E10.65 [facility] [address] [address] [id number] [place] [address] March, [facility] [address] [address] March, [facility] [address] [address] [id number] [place] [address] Jan, [facility] [address] [address] Jan, [facility] [address] [address] Jan, Type 1 diabetes mellitus with diabetic p olyneuropathy E10.42 [facility] [address] [address] Jan, Type 1 diabetes mellitus with hyperglyce uma E10.65 ; Excessive cerumen in both ear canals H61.23 and Controlled diabetes mellitus type 1 without complications E10.9 [facility] [address] [place] [id number] [place] [address] Dec, [facility] [address] [address] Dec, [facility] [address] [address] Dec, [facility] [address] [address] Dec, [facility] [address] [address] Nov, [facility] [address] [place] [id number] [place] [address] Nov, [facility] [address] [address] Oct, Type 1 diabetes mellitus with hyperglyce uma E10.65 [facility] [address] [address] Sep, [facility] [address] [address] Sep, [facility] [address] [address] Sep, Controlled diabetes mellitus type 1 with out complications E10.9 [facility] [address] [address] Sep, [facility] [address] [id number] Aug, Dental caries K02.9 [facility] [address] [address] Aug, Type 1 diabetes mellitus with diabetic p olyneuropathy E10.42 [facility] [address] [address] Aug, [facility] [address] [address] Aug, [facility] [address] [address] Aug, [facility] [address] [address] Jul, Type 1 diabetes mellitus with hyperglyce uma E10.65 [facility] [address] [address] Jul, Type 1 diabetes mellitus with hyperglyce uma E10.65 ; Tooth pain K08.8 and Encounter for immunization Z23 [facility] [address] [id number] Jul, Dental examination Z01.20 [facility] [address] [address] Jul, [facility] [address] [address] Jul, [facility] [address] [address] Jul, [facility] [address] [address] Jun, [facility] [address] [id number] [place] [address] May, [facility] [address] [id number] [place] [address] Apr, [facility] [address] [id number] [place] [address] Apr, [facility] [address] [id number] [place] [address] Apr, [facility] [address] [id number] [place] [address] March, [facility] [address] [id number] [place] [address] March, [facility] [address] [id number] [place] [address] Feb, [facility] [id number] [place] [address] Feb, [facility] [address] [id number] [place] [address] Feb, Type 1 diabetes mellitus with hyperglyce uma E10.65 [facility] [address] [id number] [place] [address] Jan, [facility] [address] [id number] [place] [address] Jan, [facility] [address] [id number] [place] [address] Jan, [facility] [address] [id number] [place] [address] Jan, [facility] [address] [id number] [place] [address] Dec, [facility] [address] [id number] [place] [address] Nov, [facility] [address] [id number] [place] [address] Nov, [facility] [address] [place] [id number] [place] [address] Oct, [facility] [address] [address] Oct, Type 1 diabetes mellitus with diabetic a utonomic (poly)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 ; Type 1 diabetes mellitus with hyperglycemia E10.65 ; Gastroparesis K31.84 and Esophageal stricture K22.2 [facility] [address] [address] Oct, [facility] [address] [address] Sep, [facility] [address] [address] Sep, Type 1 diabetes mellitus with other diab etic neurological complication E10.49 [facility] [address] [address] Aug, Encounter for immunization Z23 [facility] [address] [address] Aug, [facility] [address] [address] Aug, [facility] [address] [address] Jul, [facility] [address] [address] Jul, [facility] [address] [address] Jun, [facility] [address] [address] Jun, [facility] [address] [address] Jun, [facility] [address] [address] May, [facility] [address] [address] May, [facility] [id number] [place] [address] May, Diabetes type 1, controlled 250.01 [facility] [id number] [place] [address] May, [facility] [id number] [place] [address] May, [facility] [address] [place] [id number] [place] [id number] Apr, Dental examination V72.2 [facility] [id number] [place] [address] Apr, [facility] [address] [address] Apr, [facility] [address] [id number] [place] [address] Apr, [facility] [address] [address] Apr, [facility] [address] [id number] [place] [address] Apr, [facility] [address] [place] [id number] [place] [id number] Apr, Dental examination V72.2 [facility] [id number] [place] [address] Apr, [facility] [address] [address] Apr, [facility] [address] [id number] [place] [address] March, Diabetes mellitus type 1 250.01 [facility] [address] [place] [id number] [place] [address] March, [facility] [id number] [place] [address] Feb, [facility] [address] [address] Feb, [facility] [address] [facility] [id number] [place] [address] Jan, [facility] [address] [id number] [place] [address] Jan, [facility] [address] [id number] [place] [address] Jan, [facility] [address] [id number] [place] [address] Jan, [facility] [address] [facility] [id number] [place] [address] Dec, [facility] [address] [id number] [place] [address] Dec, [facility] [address] [id number] [place] [address] Nov, [facility] [address] [id number] [place] [address] Nov, [facility] [address] [id number] [place] [address] Nov, [facility] [address] [id number] [place] [address] Nov, [facility] [address] [id number] [place] [address] Nov, [facility] [address] [id number] [place] [address] Nov, [facility] [address] [id number] [place] [address] Nov, [facility] [address] [id number] [place] [address] Oct, [facility] [address] [id number] [place] [address] Oct, [facility] [address] [id number] [place] [address] Sep, [facility] [address] [id number] [place] [address] Aug, 2013 [facility] [address] [facility] [id number] [place] [address] Aug, 2013 [facility] [address] [id number] [place] [address] Aug, [facility] [address] [id number] [place] [address] Aug, [facility] [address] [id number] [place] [address] Aug, 2013 [facility] [address] [facility] [id number] [place] [address] Aug, [facility] [address] [id number] [place] [address] Aug, 2013 [facility] [address] [id number] [place] [address] Aug, 2013 [facility] [address] [id number] [place] [address] Aug, 2013 [facility] [address] [id number] [place] [address] Aug, [facility] [address] [id number] [place] [address] Aug, 2013 [facility] [address] [id number] [place] [address] Aug, 2013 [facility] [address] [id number] [place] [address] Aug, 2013 [facility] [address] [id number] [place] [address] Aug, 2013 [facility] [address] [id number] [place] [address] Jul, 2013 [facility] [address] [id number] [place] [address] Jul, 2013 [facility] [address] [id number] [place] [address] Jul, [facility] [address] [id number] [place] [address] Jul, [facility] [address] [facility] [id number] [place] [address] Jun, [facility] [address] [facility] [id number] [place] [address] Jun, [facility] [address] [facility] [id number] [place] [address] Jun, [facility] [address] [facility] [id number] [place] [address] Jun, [facility] [address] [id number] [place] [address] May, [facility] [address] [id number] [place] [address] May, [facility] [address] [id number] [place] [address] May, [facility] [address] [facility] [id number] [place] [address] May, [facility] [address] [id number] [place] [address] May, [facility] [address] [id number] [place] [address] May, [facility] [address] [id number] [place] [address] May, [facility] [address] [id number] [place] [address] May, [facility] [address] [facility] [id number] [place] [address] May, [facility] [address] [facility] [id number] [place] [address] May, [facility] [address] [id number] [place] [address] May, [facility] [address] [id number] [place] [address] May, [facility] [address] [facility] [id number] [place] [address] May, [facility] [address] [facility] [id number] [facility] [place] [address] Apr, [facility] [address] [id number] [facility] [place] [address] Apr, [facility] [address] [facility] [id number] [facility] [place] [address] Apr, [facility] [address] [facility] [id number] [facility] [place] [address] Apr, [facility] [address] [id number] [place] [address] Apr, [facility] [address] [id number] [place] [address] Apr, [facility] [address] [id number] [place] [address] Apr, [facility] [address] [id number] [place] [address] Apr, [facility] [address] [id number] [place] [address] Apr, [facility] [address] [id number] [place] [address] Apr, [facility] [address] [id number] [place] [address] Apr, [facility] [address] [facility] [id number] [place] [address] Apr, [facility] [address] [id number] [place] [address] Apr, [facility] [address] [id number] [place] [address] Apr, [facility] [address] [id number] [place] [address] March, [facility] [address] [facility] [id number] [place] [address] March, [facility] [address] [id number] [place] [address] March, [facility] [address] [id number] [place] [address] March, [facility] [address] [id number] [place] [address] March, [facility] [address] [id number] [place] [address] March, [facility] [address] [id number] [place] [address] March, [facility] [address] [id number] [place] [address] March, [facility] [address] [id number] [place] [address] March, [facility] [address] [id number] [place] [address] March, [facility] [address] [id number] [place] [address] Feb, [facility] [address] [id number] [place] [address] Feb, [facility] [address] [id number] [place] [address] Feb, [facility] [address] [id number] [place] [address] Feb, [facility] [address] [id number] [place] [address] Feb, [facility] [address] [id number] [place] [address] Feb, [facility] [address] [id number] [place] [address] Feb, [facility] [address] [id number] [place] [address] Feb, [facility] [address] [id number] [place] [address] Jan, [facility] [address] [id number] [place] [address] Jan, [facility] [address] [id number] [place] [address] Jan, [facility] [address] [id number] [place] [address] Jan, [facility] [address] [id number] [place] [address] Jan, [facility] [address] [id number] [place] [address] Jan, [facility] [address] [id number] [place] [address] Jan, [facility] [address] [id number] [place] [address] Jan, [facility] [address] [id number] [place] [address] Jan, [facility] [address] [id number] [place] [address] Jan, [facility] [address] [id number] [place] [address] Dec, [facility] [address] [id number] [place] [address] Dec, [facility] [address] [id number] [place] [address] Nov, [facility] [address] [id number] [place] [address] Nov, [facility] [address] [id number] [place] [address] Nov, [facility] [address] [id number] [place] [address] Nov, [facility] [address] [id number] [place] [address] Nov, [facility] [address] [id number] [place] [address] Nov, [facility] [address] [id number] [place] [address] Nov, [facility] [address] [id number] [place] [address] Nov, [facility] [address] [id number] [place] [address] Oct, [facility] [address] [id number] [place] [address] Oct, [facility] [address] [id number] [place] [address] Oct, [facility] [address] [id number] [place] [address] Oct, [facility] [address] [id number] [place] [address] Oct, [facility] [address] [id number] [place] [address] Oct, [facility] [address] [id number] [place] [address] Sep, [facility] [address] [id number] [place] [address] Sep, [facility] [address] [id number] [place] [address] Sep, [facility] [address] [id number] [place] [address] Sep, [facility] [address] [id number] [place] [address] Sep, [facility] [address] [id number] [place] [address] Aug, [facility] [address] [id number] [place] [address] Aug, [facility] [address] [facility] [id number] [place] [address] Aug, [facility] [address] [facility] [id number] [place] [address] Aug, [facility] [address] [id number] [place] [address] Aug, [facility] [address] [id number] [place] [address] Aug, [facility] [address] [id number] [place] [address] Jul, [facility] [address] [id number] [place] [address] Jul, [facility] [address] [id number] [place] [address] Jul, [facility] [address] [id number] [place] [address] Jun, [facility] [address] [id number] [place] [address] Jun, [facility] [address] [id number] [place] [address] May, [facility] [address] [id number] [place] [address] May, [facility] [address] [id number] [place] [address] Apr, [facility] [address] [id number] [place] [address] Apr, [facility] [address] [id number] [place] [address] Apr, [facility] [address] [id number] [place] [address] March, [facility] [address] [id number] [place] [address] Feb, [facility] [address] [id number] [place] [address] Feb, [facility] [address] [facility] [id number] [place] [address] Jan, [facility] [address] [facility] [id number] [facility] [place] [address] 20 Jan, 2013 [facility] [address] [facility] [id number] [place] [address] Jan, [facility] [address] [id number] [facility] [place] [address] 08 Jan, 2013 [facility] [address] [facility] [id number] [facility] [place] [address] Jan, [facility] [address] [id number] [place] [address] 28 Dec, 2012 [facility] [address] [id number] [place] [address] Dec, [facility] [address] [id number] [place] [address] Dec, [facility] [address] [id number] [place] [address] Dec, [facility] [address] [id number] [place] [address] Dec, [facility] [address] [id number] [place] [address] 05 Dec, 2012 [address] [facility] [address] [place] [id number] Nov, [facility] [address] [id number] [place] [address] Nov, [facility] [address] [facility] [id number] [place] [address] Nov, [facility] [address] [id number] [place] [address] Nov, [facility] [address] [id number] [place] [address] Nov, [facility] [address] [id number] [place] [address] Oct, [facility] [address] [id number] [place] [address] Oct, [facility] [address] [id number] [place] [address] Oct, [facility] [address] [id number] [place] [address] Oct, [facility] [address] [id number] [place] [address] Oct, [facility] [address] [id number] [place] [address] Oct, [facility] [address] [id number] [place] [address] Oct, [facility] [address] [id number] [place] [address] Oct, [facility] [address] [id number] [place] [address] Sep, [facility] [address] [id number] [place] [address] Sep, [facility] [address] [id number] [place] [address] Sep, [facility] [address] [id number] [place] [address] Sep, [facility] [address] [id number] [place] [address] Sep, [facility] [address] [id number] [place] [address] Sep, [facility] [address] [id number] [place] [address] Sep, [facility] [address] [id number] [place] [address] Sep, [facility] [address] [id number] [place] [address] Sep, [facility] [address] [id number] [place] [address] Sep, [facility] [address] [id number] [place] [address] Sep, [facility] [address] [id number] [place] [address] Sep, [facility] [id number] [place] [address] Sep, [facility] [address] [id number] [place] [address] Sep, [facility] [address] [id number] [place] [address] Sep, [facility] [address] [id number] [place] [address] Sep, IMMUNIZATIONS No Known Immunizations SOCIAL HISTORY [...]
--- OUTSIDE RECORDS SUMMARY | 2020-04-17 21:28 | XMS REPORT ---
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 Active 06830872 Problem Other chronic pain G89.29 Active 8 0901144 Problem Hypertension, essential I10 Active 37925291 Problem Vitamin D deficiency E55.9 Active 68997493 Problem Mood disorder F39 Active 325345 05 Problem Type 1 diabetes mellitus with hyperglycemia E10.65 Active 294773333796839 Problem Type 1 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 Active 38101389 Problem Chronic fatigue R53.82 Active 8422 9001 Problem Controlled diabetes mellitus type 1 without complications E10.9 Active 05544149 ALLERGIES No Information ENCOUNTERS Encounter Location Date Diagnosis [place] [address] [address] Nov, [facility] [address] [address] Nov, Type 1 diabetes mellitus with other diab etic neurological complication E10.49 [facility] [address] [address] Oct, Other chronic pain G89.29 [facility] [address] [address] Oct, Type 1 diabetes mellitus with other diab etic neurological complication E10.49 [facility] [address] [address] Oct, [facility] [address] [address] Aug, Type 1 diabetes mellitus with other diab etic neurological complication E10.49 [facility] [address] [place] [id number] [place] [address] 14 Aug, 2019 Encounter for immunization Z23 [facility] [address] [address] 08 Aug, 2019 Vitamin D deficiency E55.9 [facility] [address] [address] Jul, Type 1 diabetes mellitus with other diab etic neurological complication E10.49 [facility] [address] [address] 13 Jul, 2019 Type 1 diabetes mellitus with hyperglyce uma E10.65 [facility] [address] [address] Jun, Type 1 diabetes mellitus with other diab etic neurological complication E10.49 [facility] [address] [address] [id number] [place] [address] May, [facility] [address] [address] May, [facility] [address] [address] May, Other chronic pain G89.29 [facility] [address] [id number] [place] [address] May, [facility] [address] [address] May, Type 1 diabetes mellitus with other diab etic neurological complication E10.49 [facility] [address] [address] [id number] [place] [address] Apr, [facility] [address] [address] Apr, Type 1 diabetes mellitus with other diab etic neurological complication E10.49 [facility] [id number] [place] [address] Apr, Encounter for Medicare annual wellness e xam Z00.00 [facility] [address] [id number] [place] [address] March, Encounter for Medicare annual wellness e xam Z00.00 and Type 1 diabetes mellitus with other diabetic neurological complication E10.49 [facility] [id number] [place] [address] 10 Feb, 2019 Type 1 diabetes mellitus with other diab etic neurological complication E10.49 [facility] [id number] [place] [address] 04 Feb, 2019 Encounter for Medicare annual wellness e xam Z00.00 ; Mood disorder F39 ; Type 1 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 ; Hypertension, essential I10 and Chronic fatigue R53.82 [facility] [address] [place] [address] [id number] [place] [address] 13 Jan, 2019 Type 1 diabetes mellitus with other diab etic neurological complication E10.49 [facility] [id number] [place] [address] Jan, [facility] [id number] [place] [address] 07 Jan, 2019 Other chronic pain G89.29 [facility] [id number] [place] [address] 11 Dec, 2018 [facility] [id number] [place] [address] 08 Dec, 2018 Type 1 diabetes mellitus with other diab etic neurological complication E10.49 [facility] [id number] [place] [address] 05 Dec, 2018 Other chronic pain G89.29 [facility] [address] [id number] [place] [address] Nov, [facility] [address] [id number] [place] [id number] Nov, Caries K02.9 [facility] [address] [id number] [place] [address] Nov, Type 1 diabetes mellitus with other diab etic neurological complication E10.49 [facility] [address] [address] Nov, Controlled diabetes mellitus type 1 with out complications E10.9 ; Other chronic pain G89.29 and Pain in left knee M25.562 [facility] [address] [id number] Oct, Dental examination Z01.20 [facility] [address] [address] 14 Oct, 2018 Cutaneous abscess of unspecified foot L0 2.619 and Cellulitis of unspecified part of limb L03.119 [place] [address] [address] Oct, [place] [address] [address] 10 Oct, 2018 Type 1 diabetes mellitus with other diab etic neurological complication E10.49 [facility] [address] [id number] Oct, Dental examination Z01.20 and Caries K02 .9 [place] [address] [address] 04 Oct, 2018 Cutaneous abscess of left foot L02.612 a nd Cellulitis of left lower limb L03.116 [place] [address] [address] Oct, Dental examination Z01.20 and Pain, dent al K08.89 [facility] [address] [facility] [id number] [address] [place] [address] Sep, Left foot pain M79.672 and L eft anterior knee pain M25.562 [place] [address] [address] Sep, Type 1 diabetes mellitus with other diab etic neurological complication E10.49 [facility] [address] [address] Sep, [place] [address] [place] [id number] [place] [address] Aug, Type 1 diabetes mellitus with other diab etic neurological complication E10.49 [facility] [address] [address] 10 Aug, 2018 Encounter for immunization Z23 [facility] [address] [place] [id number] [place] [address] 05 Aug, 2018 Type 1 diabetes mellitus with hyperglyce uma E10.65 [facility] [address] [address] Jul, Type 1 diabetes mellitus with hyperglyce uma E10.65 [facility] [address] [address] Jul, [facility] [address] [address] Jul, [facility] [address] [address] Jul, Type 1 diabetes mellitus with other diab etic neurological complication E10.49 [facility] [address] [address] Jul, Type 1 diabetes mellitus with other diab etic neurological complication E10.49 and Mood disorder F39 [facility] [address] [address] [id number] [place] [address] Jun, [facility] [address] [address] Jun, Type 1 diabetes mellitus with other diab etic neurological complication E10.49 and Chronic fatigue R53.82 [facility] [address] [address] [id number] [place] [address] May, Type 1 diabetes mellitus with other diab etic neurological complication E10.49 [facility] [id number] [place] [address] May, [facility] [address] [address] May, [facility] [address] [place] [address] [place] [address] Apr, [facility] [address] [address] Apr, Type 1 diabetes mellitus with other diab etic neurological complication E10.49 [facility] [address] [place] [id number] [place] [address] March, [facility] [address] [address] Feb, [facility] [address] [address] Feb, Type 1 diabetes mellitus with other diab etic neurological complication E10.49 ; Tobacco abuse Z72.0 and Tobacco abuse counseling Z71.6 [place] [address] [id number] [place] [address] Jan, Type 1 diabetes mellitus with hyperglyce uma E10.65 [place] [address] [address] Jan, [facility] [address] [address] Dec, Tobacco abuse Z72.0 [place] [address] [address] Dec, Type 1 diabetes mellitus with hyperglyce uma E10.65 [place] [address] [place] [id number] [place] [address] Dec, Type 1 diabetes mellitus with hyperglyce uma E10.65 ; Tobacco abuse Z72.0 and Tobacco abuse counseling Z71.6 [place] [address] [address] Nov, Type 1 diabetes mellitus with hyperglyce uma E10.65 [place] [address] [address] Oct, Type 1 diabetes mellitus with hyperglyce uma E10.65 [place] [address] [address] Oct, Type 1 diabetes mellitus with hyperglyce uma E10.65 [facility] [address] [id number] [place] [address] Sep, Type 1 diabetes mellitus with hyperglyce uma E10.65 [facility] [address] [id number] [place] [address] Aug, Type 1 diabetes mellitus with hyperglyce uma E10.65 [facility] [address] [place] [id number] [place] [address] Aug, [facility] [address] [place] [address] [id number] [place] [address] Aug, Type 1 diabetes mellitus with hyperglyce uma E10.65 [facility] [address] [place] [address] [id number] [place] [address] Aug, Encounter for immunization Z23 [facility] [address] [place] [address] [id number] [place] [address] Aug, Type 1 diabetes mellitus with hyperglyce uma E10.65 [facility] [address] [id number] [place] [address] Jul, Type 1 diabetes mellitus with hyperglyce uma E10.65 [facility] [address] [place] [address] [id number] [place] [address] Jul, Type 1 diabetes mellitus with hyperglyce uma E10.65 [facility] [address] [place] [address] [id number] [place] [address] May, Type 1 diabetes mellitus with hyperglyce uma E10.65 [facility] [id number] [place] [address] May, [facility] [address] [id number] [place] [address] Apr, [facility] [address] [place] [address] [id number] [place] [address] Apr, Type 1 diabetes mellitus with hyperglyce uma E10.65 [facility] [address] [place] [address] [id number] [place] [address] March, [facility] [address] [id number] [place] [address] March, [facility] [address] [address] Jan, [facility] [address] [address] Jan, [facility] [address] [address] Jan, Type 1 diabetes mellitus with diabetic p olyneuropathy E10.42 [facility] [address] [address] Jan, Type 1 diabetes mellitus with hyperglyce uma E10.65 ; Excessive cerumen in both ear canals H61.23 and Controlled diabetes mellitus type 1 without complications E10.9 [facility] [address] [address] Dec, [facility] [address] [address] Dec, [facility] [address] [address] Dec, [facility] [address] [address] Dec, [facility] [address] [address] Nov, [facility] [address] [address] Nov, [facility] [address] [address] Oct, Type 1 diabetes mellitus with hyperglyce uma E10.65 [facility] [address] [address] Sep, [facility] [address] [address] Sep, [facility] [address] [address] Sep, Controlled diabetes mellitus type 1 with out complications E10.9 [facility] [address] [address] Sep, [facility] [address] [id number] Aug, Dental caries K02.9 [facility] [address] [address] Aug, Type 1 diabetes mellitus with diabetic p olyneuropathy E10.42 [facility] [address] [address] Aug, [facility] [address] [address] Aug, [facility] [address] [address] Aug, [facility] [address] [address] Jul, Type 1 diabetes mellitus with hyperglyce uma E10.65 [facility] [address] [address] Jul, Type 1 diabetes mellitus with hyperglyce uma E10.65 ; Tooth pain K08.8 and Encounter for immunization Z23 [facility] [address] [place] [id number] [place] [address] 08 Jul, 2016 Dental examination Z01.20 [facility] [address] [address] 08 Jul, 2016 [facility] [address] [address] 07 Jul, 2016 [facility] [address] [address] Jul, [facility] [address] [address] Jun, [facility] [address] [address] May, [facility] [address] [id number] [place] [address] Apr, [facility] [address] [id number] [place] [address] Apr, [facility] [address] [id number] [place] [address] Apr, [facility] [address] [id number] [place] [address] March, [facility] [address] [id number] [place] [address] March, [facility] [address] [id number] [place] [address] Feb, [facility] [address] [id number] [place] [address] Feb, [facility] [address] [id number] [place] [address] Feb, Type 1 diabetes mellitus with hyperglyce uma E10.65 [facility] [address] [id number] [place] [address] Jan, [facility] [address] [id number] [place] [address] Jan, [facility] [address] [id number] [place] [address] Jan, [facility] [address] [id number] [place] [address] Jan, [facility] [address] [id number] [place] [address] Dec, [facility] [address] [id number] [place] [address] Nov, [facility] [address] [id number] [place] [address] Nov, [facility] [address] [id number] [place] [address] Oct, [facility] [id number] [place] [address] 04 Oct, 2015 Type 1 diabetes mellitus with diabetic a utonomic (poly)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 ; Type 1 diabetes mellitus with hyperglycemia E10.65 ; Gastroparesis K31.84 and Esophageal stricture K22.2 [facility] [id number] [place] [address] Oct, [facility] [address] [address] Sep, [facility] [address] [address] Sep, Type 1 diabetes mellitus with other diab etic neurological complication E10.49 [place] [address] [address] Aug, Encounter for immunization Z23 [facility] [address] [address] Aug, [facility] [address] [address] Aug, [facility] [address] [address] Jul, [facility] [address] [address] Jul, [facility] [address] [address] Jun, [facility] [address] [address] Jun, [facility] [address] [address] Jun, [facility] [address] [address] May, [facility] [address] [address] May, [facility] [address] [address] May, Diabetes type 1, controlled 250.01 [facility] [id number] [place] [address] May, [facility] [address] [address] May, [facility] [place] [facility] [address] [id number] Apr, Dental examination V72.2 [facility] [address] [address] Apr, [facility] [address] [address] Apr, [facility] [address] [address] Apr, [facility] [address] [address] Apr, [facility] [address] [address] Apr, [facility] [address] [id number] Apr, Dental examination V72.2 [facility] [address] [address] Apr, [facility] [address] [address] Apr, [facility] [address] [address] March, Diabetes mellitus type 1 250.01 [facility] [id number] [place] [address] March, [facility] [address] [address] Feb, [facility] [address] [address] Feb, [facility] [address] [address] Jan, [facility] [address] [id number] [place] [address] Jan, [facility] [address] [id number] [place] [address] Jan, [facility] [address] [id number] [place] [address] Jan, [facility] [address] [id number] [place] [address] Dec, [facility] [address] [id number] [place] [address] Dec, [facility] [address] [id number] [place] [address] Nov, [facility] [address] [id number] [place] [address] Nov, [facility] [id number] [place] [address] Nov, [facility] [address] [id number] [place] [address] Nov, [facility] [address] [id number] [place] [address] Nov, [facility] [address] [id number] [place] [address] Nov, [facility] [address] [id number] [place] [address] Nov, [facility] [address] [id number] [place] [address] Oct, [facility] [address] [id number] [place] [address] Oct, [facility] [address] [id number] [place] [address] Sep, [facility] [address] [id number] [place] [address] Aug, [facility] [address] [id number] [place] [address] Aug, [facility] [address] [facility] [id number] [place] [address] Aug, [facility] [address] [facility] [id number] [place] [address] Aug, [facility] [address] [id number] [place] [address] Aug, [facility] [address] [id number] [place] [address] Aug, [facility] [address] [id number] [place] [address] Aug, [facility] [address] [id number] [place] [address] Aug, [facility] [address] [id number] [place] [address] Aug, [facility] [address] [id number] [place] [address] Aug, [facility] [address] [id number] [place] [address] Aug, [facility] [address] [id number] [place] [address] Aug, [facility] [address] [id number] [place] [address] Aug, [facility] [address] [id number] [place] [address] Aug, 2013 [facility] [address] [id number] [place] [address] Jul, 2013 [facility] [address] [id number] [place] [address] Jul, 2013 [facility] [address] [id number] [place] [address] Jul, 2013 [facility] [address] [id number] [place] [address] Jul, 2013 [facility] [address] [id number] [facility] [place] [address] Jun, [facility] [address] [id number] [place] [address] Jun, [facility] [address] [facility] [id number] [place] [address] Jun, [facility] [address] [facility] [id number] [place] [address] Jun, [facility] [address] [facility] [id number] [place] [address] May, [facility] [address] [id number] [place] [address] May, [facility] [address] [id number] [place] [address] May, [facility] [place] [facility] [address] [id number] [place] [address] May, [facility] [place] [facility] [address] [id number] [place] [address] May, [facility] [place] [facility] [address] [facility] [id number] [place] [address] May, [facility] [place] [facility] [address] [id number] [place] [address] May, [facility] [place] [facility] [address] [id number] [place] [address] May, [facility] [place] [facility] [address] [facility] [id number] [place] [address] May, [facility] [place] [facility] [address] [facility] [id number] [place] [address] May, [facility] [place] [facility] [address] [id number] [place] [address] May, [facility] [place] [facility] [address] [id number] [place] [address] May, [facility] [place] [facility] [address] [id number] [place] [address] May, [facility] [place] [facility] [address] [id number] [facility] [place] [address] Apr, [facility] [place] [facility] [address] [facility] [id number] [place] [address] Apr, [facility] [place] [facility] [address] [facility] [id number] [facility] [place] [address] Apr, [facility] [place] [facility] [address] [facility] [id number] [facility] [place] [address] Apr, [facility] [place] [facility] [address] [facility] [id number] [facility] [place] [address] Apr, [facility] [address] [id number] [facility] [place] [address] Apr, [facility] [address] [id number] [place] [address] Apr, [facility] [address] [id number] [facility] [place] [address] Apr, [facility] [address] [facility] [id number] [facility] [place] [address] Apr, [facility] [address] [id number] [facility] [place] [address] Apr, [facility] [address] [id number] [place] [address] Apr, [facility] [address] [id number] [place] [address] Apr, [facility] [address] [facility] [id number] [facility] [place] [address] Apr, [facility] [address] [facility] [id number] [place] [address] Apr, [facility] [address] [facility] [id number] [place] [address] March, [facility] [address] [facility] [id number] [place] [address] March, [facility] [address] [id number] [place] [address] March, [facility] [address] [id number] [facility] [place] [address] March, [facility] [address] [facility] [id number] [place] [address] March, [facility] [address] [facility] [id number] [place] [address] March, [facility] [address] [facility] [id number] [place] [address] March, [facility] [address] [facility] [id number] [place] [address] March, [facility] [address] [facility] [id number] [place] [address] March, [facility] [address] [facility] [id number] [place] [address] March, [facility] [address] [id number] [place] [address] Feb, [facility] [address] [id number] [place] [address] Feb, [facility] [address] [facility] [id number] [place] [address] Feb, [facility] [address] [id number] [place] [address] Feb, [facility] [address] [facility] [id number] [place] [address] Feb, [facility] [address] [facility] [id number] [place] [address] Feb, [facility] [address] [facility] [id number] [place] [address] Feb, [facility] [address] [id number] [place] [address] Feb, [facility] [address] [facility] [id number] [place] [address] Jan, [facility] [address] [id number] [place] [address] 18 Jan, 2014 [facility] [address] [id number] [place] [address] Jan, [facility] [address] [facility] [id number] [place] [address] Jan, [facility] [address] [id number] [place] [address] Jan, [facility] [address] [facility] [id number] [place] [address] Jan, [facility] [address] [facility] [id number] [place] [address] Jan, [facility] [address] [facility] [id number] [place] [address] Jan, [facility] [address] [facility] [id number] [place] [address] Jan, [facility] [address] [facility] [id number] [place] [address] Jan, [facility] [address] [facility] [id number] [place] [address] Dec, [facility] [address] [id number] [place] [address] Dec, [facility] [address] [facility] [id number] [place] [address] Nov, [facility] [address] [facility] [id number] [place] [address] Nov, [facility] [address] [facility] [id number] [place] [address] Nov, [facility] [address] [id number] [place] [address] Nov, [facility] [address] [id number] [place] [address] Nov, [facility] [address] [facility] [id number] [place] [address] Nov, [facility] [address] [id number] [place] [address] Nov, [facility] [address] [id number] [place] [address] Nov, [facility] [address] [facility] [id number] [place] [address] Oct, [facility] [address] [facility] [id number] [place] [address] Oct, [facility] [address] [facility] [id number] [place] [address] Oct, [facility] [address] [facility] [id number] [place] [address] Oct, [facility] [address] [facility] [id number] [place] [address] Oct, [facility] [address] [id number] [place] [address] Oct, [facility] [address] [facility] [id number] [place] [address] Sep, [facility] [address] [facility] [id number] [place] [address] Sep, [facility] [address] [facility] [id number] [place] [address] Sep, [facility] [address] [id number] [place] [address] Sep, [facility] [address] [facility] [id number] [place] [address] Sep, [facility] [address] [id number] [place] [address] Aug, [facility] [address] [id number] [place] [address] Aug, [facility] [address] [id number] [place] [address] Aug, [facility] [address] [id number] [place] [address] Aug, [facility] [address] [id number] [place] [address] Aug, [facility] [address] [id number] [place] [address] Aug, [facility] [address] [id number] [place] [address] Jul, [facility] [address] [id number] [place] [address] Jul, [facility] [address] [id number] [place] [address] Jul, [facility] [address] [id number] [place] [address] Jun, [facility] [address] [id number] [place] [address] Jun, [facility] [address] [id number] [place] [address] May, [facility] [address] [id number] [place] [address] May, [facility] [address] [id number] [place] [address] Apr, [facility] [address] [id number] [place] [address] Apr, [facility] [address] [facility] [id number] [place] [address] Apr, [facility] [address] [id number] [place] [address] March, [facility] [address] [id number] [place] [address] Feb, [facility] [address] [id number] [place] [address] Feb, [facility] [address] [facility] [id number] [place] [address] Jan, [facility] [address] [id number] [place] [address] Jan, [facility] [address] [id number] [place] [address] Jan, [facility] [address] [facility] [id number] [place] [address] Jan, [facility] [address] [facility] [id number] [place] [address] Jan, [facility] [address] [facility] [id number] [place] [address] Dec, [facility] [address] [id number] [place] [address] Dec, [facility] [address] [id number] [place] [address] Dec, [facility] [id number] [place] [address] Dec, [facility] [address] [id number] [place] [address] Dec, [facility] [address] [id number] [place] [address] Dec, [facility] [address] [place] [id number] Nov, [facility] [address] [id number] [place] [address] Nov, [facility] [address] [id number] [place] [address] Nov, [facility] [address] [id number] [place] [address] Nov, [facility] [address] [id number] [place] [address] Nov, [facility] [address] [id number] [place] [address] Oct, [facility] [address] [id number] [place] [address] Oct, [facility] [address] [id number] [place] [address] Oct, [facility] [address] [id number] [place] [address] Oct, [facility] [address] [id number] [place] [address] Oct, [facility] [address] [id number] [place] [address] Oct, [facility] [address] [id number] [place] [address] Oct, [facility] [address] [id number] [place] [address] Oct, [facility] [address] [id number] [place] [address] Sep, [facility] [address] [id number] [place] [address] Sep, [facility] [address] [id number] [place] [address] Sep, [facility] [address] [id number] [place] [address] Sep, [facility] [address] [id number] [place] [address] Sep, [facility] [address] [id number] [place] [address] Sep, [facility] [address] [id number] [place] [address] Sep, [facility] [address] [facility] [id number] [place] [address] Sep, [facility] [address] [facility] [id number] [place] [address] Sep, [facility] [address] [id number] [place] [address] Sep, [facility] [address] [facility] [id number] [place] [address] Sep, [facility] [address] [id number] [place] [address] Sep, [facility] [address] [id number] [place] [address] Sep, [facility] [address] [facility] [id number] [place] [address] Sep, [facility] [address] [facility] [id number] [place] [address] Sep, [facility] [address] [id number] [place] [address] Sep, IMMUNIZATIONS No Known Immunizations SOCIAL HISTORY [...]
--- OUTSIDE RECORDS SUMMARY | 2020-04-17 21:28 | XMS REPORT ---
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 Active 10522525 Problem Other chronic pain G89.29 Active 8 4091203 Problem Hypertension, essential I10 Active 87257317 Problem Vitamin D deficiency E55.9 Active 27710295 Problem Mood disorder F39 Active 248183 05 Problem Type 1 diabetes mellitus with hyperglycemia E10.65 Active [id number] Problem Type 1 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 Active 99638929 Problem Chronic fatigue R53.82 Active 8422 9001 Problem Controlled diabetes mellitus type 1 without complications E10.9 Active 84472573 ALLERGIES No Information ENCOUNTERS Encounter Location Date Diagnosis [place] [address] [address] Nov, [facility] [address] [address] Nov, Type 1 diabetes mellitus with other diab etic neurological complication E10.49 [facility] [address] [address] Oct, Other chronic pain G89.29 [facility] [address] [address] Oct, Type 1 diabetes mellitus with other diab etic neurological complication E10.49 [facility] [address] [address] Oct, [facility] [address] [address] Aug, Type 1 diabetes mellitus with other diab etic neurological complication E10.49 [facility] [address] [place] [id number] [place] [address] 14 Aug, 2019 Encounter for immunization Z23 [facility] [address] [address] 08 Aug, 2019 Vitamin D deficiency E55.9 [facility] [address] [address] Jul, Type 1 diabetes mellitus with other diab etic neurological complication E10.49 [facility] [address] [address] 13 Jul, 2019 Type 1 diabetes mellitus with hyperglyce uma E10.65 [facility] [address] [address] Jun, Type 1 diabetes mellitus with other diab etic neurological complication E10.49 [facility] [address] [place] [id number] [place] [address] May, [facility] [address] [address] May, [facility] [address] [address] May, Other chronic pain G89.29 [facility] [address] [place] [id number] [place] [address] May, [facility] [address] [address] May, Type 1 diabetes mellitus with other diab etic neurological complication E10.49 [facility] [address] [place] [id number] [place] [address] Apr, [facility] [address] [address] Apr, Type 1 diabetes mellitus with other diab etic neurological complication E10.49 [facility] [address] [place] [id number] [place] [address] Apr, Encounter for Medicare annual wellness e xam Z00.00 [facility] [address] [facility] [place] [address] March, Encounter for Medicare annual wellness e xam Z00.00 and Type 1 diabetes mellitus with other diabetic neurological complication E10.49 [facility] [address] [place] [id number] [place] [address] 10 Feb, 2019 Type 1 diabetes mellitus with other diab etic neurological complication E10.49 [facility] [address] [place] [id number] [place] [address] 04 Feb, 2019 Encounter for Medicare annual wellness e xam Z00.00 ; Mood disorder F39 ; Type 1 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 ; Hypertension, essential I10 and Chronic fatigue R53.82 [facility] [address] [place] [id number] [place] [address] 13 Jan, 2019 Type 1 diabetes mellitus with other diab etic neurological complication E10.49 [facility] [address] [place] [id number] [place] [address] Jan, [facility] [address] [place] [address] [id number] [place] [address] 07 Jan, 2019 Other chronic pain G89.29 [facility] [address] [place] [address] [id number] [place] [address] 11 Dec, 2018 [facility] [address] [place] [address] [id number] [place] [address] 08 Dec, 2018 Type 1 diabetes mellitus with other diab etic neurological complication E10.49 [facility] [address] [place] [id number] [place] [address] 05 Dec, 2018 Other chronic pain G89.29 [facility] [address] [id number] [place] [address] Nov, [facility] [address] [facility] [place] [id number] Nov, Caries K02.9 [facility] [address] [facility] [place] [address] Nov, Type 1 diabetes mellitus with other diab etic neurological complication E10.49 [facility] [address] [address] Nov, Controlled diabetes mellitus type 1 with out complications E10.9 ; Other chronic pain G89.29 and Pain in left knee M25.562 [facility] [address] [id number] Oct, Dental examination Z01.20 [facility] [address] [address] 14 Oct, 2018 Cutaneous abscess of unspecified foot L0 2.619 and Cellulitis of unspecified part of limb L03.119 [place] [address] [address] Oct, [place] [address] [address] 10 Oct, 2018 Type 1 diabetes mellitus with other diab etic neurological complication E10.49 [facility] [address] [id number] Oct, Dental examination Z01.20 and Caries K02 .9 [place] [address] [address] 04 Oct, 2018 Cutaneous abscess of left foot L02.612 a nd Cellulitis of left lower limb L03.116 [place] [address] [address] Oct, Dental examination Z01.20 and Pain, dent al K08.89 [facility] [address] [facility] [id number] [address] [place] [address] Sep, Left foot pain M79.672 and L eft anterior knee pain M25.562 [place] [address] [address] Sep, Type 1 diabetes mellitus with other diab etic neurological complication E10.49 [facility] [address] [address] Sep, [place] [address] [place] [address] [place] [address] Aug, Type 1 diabetes mellitus with other diab etic neurological complication E10.49 [facility] [address] [address] 10 Aug, 2018 Encounter for immunization Z23 [facility] [address] [place] [id number] [place] [address] 05 Aug, 2018 Type 1 diabetes mellitus with hyperglyce uma E10.65 [facility] [address] [address] Jul, Type 1 diabetes mellitus with hyperglyce uma E10.65 [facility] [address] [address] Jul, [facility] [address] [address] Jul, [facility] [address] [address] Jul, Type 1 diabetes mellitus with other diab etic neurological complication E10.49 [facility] [address] [address] Jul, Type 1 diabetes mellitus with other diab etic neurological complication E10.49 and Mood disorder F39 [facility] [address] [place] [id number] [place] [address] Jun, [facility] [address] [address] Jun, Type 1 diabetes mellitus with other diab etic neurological complication E10.49 and Chronic fatigue R53.82 [facility] [address] [place] [id number] [place] [address] May, Type 1 diabetes mellitus with other diab etic neurological complication E10.49 [facility] [address] [place] [address] [place] [address] May, [facility] [address] [address] May, [facility] [address] [place] [address] [place] [address] Apr, [facility] [address] [address] Apr, Type 1 diabetes mellitus with other diab etic neurological complication E10.49 [facility] [address] [place] [id number] [place] [address] March, [facility] [address] [address] Feb, [facility] [address] [address] Feb, Type 1 diabetes mellitus with other diab etic neurological complication E10.49 ; Tobacco abuse Z72.0 and Tobacco abuse counseling Z71.6 [place] [address] [place] [address] [place] [address] Jan, Type 1 diabetes mellitus with hyperglyce uma E10.65 [place] [address] [address] Jan, [facility] [address] [address] Dec, Tobacco abuse Z72.0 [place] [address] [address] Dec, Type 1 diabetes mellitus with hyperglyce uma E10.65 [place] [address] [place] [id number] [place] [address] Dec, Type 1 diabetes mellitus with hyperglyce uma E10.65 ; Tobacco abuse Z72.0 and Tobacco abuse counseling Z71.6 [place] [address] [address] Nov, Type 1 diabetes mellitus with hyperglyce uma E10.65 [place] [address] [address] Oct, Type 1 diabetes mellitus with hyperglyce uma E10.65 [place] [address] [address] Oct, Type 1 diabetes mellitus with hyperglyce uma E10.65 [facility] [address] [facility] [place] [address] Sep, Type 1 diabetes mellitus with hyperglyce uma E10.65 [facility] [address] [facility] [place] [address] Aug, Type 1 diabetes mellitus with hyperglyce uma E10.65 [facility] [address] [place] [id number] [place] [address] Aug, [facility] [address] [place] [id number] [place] [address] Aug, Type 1 diabetes mellitus with hyperglyce uma E10.65 [facility] [address] [place] [id number] [place] [address] Aug, Encounter for immunization Z23 [facility] [address] [place] [id number] [place] [address] Aug, Type 1 diabetes mellitus with hyperglyce uma E10.65 [facility] [address] [place] [id number] [place] [address] Jul, Type 1 diabetes mellitus with hyperglyce uma E10.65 [facility] [address] [place] [id number] [place] [address] Jul, Type 1 diabetes mellitus with hyperglyce uma E10.65 [facility] [address] [place] [id number] [place] [address] May, Type 1 diabetes mellitus with hyperglyce uma E10.65 [facility] [address] [place] [id number] [place] [address] May, [facility] [address] [place] [id number] [place] [address] Apr, [facility] [address] [place] [id number] [place] [address] Apr, Type 1 diabetes mellitus with hyperglyce uma E10.65 [facility] [address] [place] [id number] [place] [address] March, [facility] [address] [place] [id number] [place] [address] March, [facility] [address] [address] Jan, [facility] [address] [address] Jan, [facility] [address] [address] Jan, Type 1 diabetes mellitus with diabetic p olyneuropathy E10.42 [facility] [address] [address] Jan, Type 1 diabetes mellitus with hyperglyce uma E10.65 ; Excessive cerumen in both ear canals H61.23 and Controlled diabetes mellitus type 1 without complications E10.9 [facility] [address] [address] Dec, [facility] [address] [address] Dec, [facility] [address] [address] Dec, [facility] [address] [address] Dec, [facility] [address] [address] Nov, [facility] [address] [address] Nov, [facility] [address] [address] Oct, Type 1 diabetes mellitus with hyperglyce uma E10.65 [facility] [address] [address] Sep, [facility] [address] [address] Sep, [facility] [address] [address] Sep, Controlled diabetes mellitus type 1 with out complications E10.9 [facility] [address] [address] Sep, [facility] [address] [id number] Aug, Dental caries K02.9 [facility] [address] [address] Aug, Type 1 diabetes mellitus with diabetic p olyneuropathy E10.42 [facility] [address] [address] Aug, [facility] [address] [address] Aug, [facility] [address] [address] Aug, [facility] [address] [address] Jul, Type 1 diabetes mellitus with hyperglyce uma E10.65 [facility] [address] [address] Jul, Type 1 diabetes mellitus with hyperglyce uma E10.65 ; Tooth pain K08.8 and Encounter for immunization Z23 [facility] [address] [place] [id number] [place] [address] 08 Jul, 2016 Dental examination Z01.20 [facility] [address] [address] 08 Jul, 2016 [facility] [address] [address] 07 Jul, 2016 [facility] [address] [address] Jul, [facility] [address] [address] Jun, [facility] [address] [address] May, [facility] [address] [facility] [place] [address] Apr, [facility] [address] [facility] [place] [address] Apr, [facility] [address] [facility] [place] [address] Apr, [facility] [address] [facility] [place] [address] March, [facility] [address] [facility] [place] [address] March, [facility] [address] [facility] [place] [address] Feb, [facility] [address] [facility] [place] [address] Feb, [facility] [address] [facility] [place] [address] Feb, Type 1 diabetes mellitus with hyperglyce uma E10.65 [facility] [address] [facility] [place] [address] Jan, [facility] [address] [facility] [place] [address] Jan, [facility] [address] [facility] [place] [address] Jan, [facility] [address] [facility] [place] [address] Jan, [facility] [address] [facility] [place] [address] Dec, [facility] [address] [facility] [place] [address] Nov, [facility] [address] [facility] [place] [address] Nov, [facility] [address] [facility] [place] [address] Oct, [facility] [address] [place] [id number] [place] [address] 04 Oct, 2015 Type 1 diabetes mellitus with diabetic a utonomic (poly)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 ; Type 1 diabetes mellitus with hyperglycemia E10.65 ; Gastroparesis K31.84 and Esophageal stricture K22.2 [facility] [address] [place] [id number] [place] [address] Oct, [facility] [address] [address] Sep, [facility] [address] [address] Sep, Type 1 diabetes mellitus with other diab etic neurological complication E10.49 [place] [address] [address] Aug, Encounter for immunization Z23 [facility] [address] [address] Aug, [facility] [address] [address] Aug, [facility] [address] [address] Jul, [facility] [address] [address] Jul, [facility] [address] [address] Jun, [facility] [address] [address] Jun, [facility] [address] [address] Jun, [facility] [address] [address] May, [facility] [address] [address] May, [facility] [address] [address] May, Diabetes type 1, controlled 250.01 [facility] [address] [place] [id number] [place] [address] May, [facility] [address] [address] May, [facility] [place] [facility] [address] [id number] Apr, Dental examination V72.2 [facility] [address] [address] Apr, [facility] [address] [address] Apr, [facility] [address] [address] Apr, [facility] [address] [address] Apr, [facility] [address] [address] Apr, [facility] [address] [id number] Apr, Dental examination V72.2 [facility] [address] [address] Apr, [facility] [address] [address] Apr, [facility] [address] [address] March, Diabetes mellitus type 1 250.01 [facility] [address] [place] [id number] [place] [address] March, [facility] [address] [address] Feb, [facility] [address] [address] Feb, [facility] [address] [address] Jan, [facility] [address] [facility] [place] [address] Jan, [facility] [address] [facility] [place] [address] Jan, [facility] [address] [facility] [place] [address] Jan, [facility] [address] [facility] [place] [address] Dec, [facility] [address] [facility] [place] [address] Dec, [facility] [address] [facility] [place] [address] Nov, [facility] [address] [facility] [place] [address] Nov, [facility] [address] [place] [id number] [place] [address] Nov, [facility] [address] [facility] [place] [address] Nov, [facility] [address] [facility] [place] [address] Nov, [facility] [address] [facility] [place] [address] Nov, [facility] [address] [facility] [place] [address] Nov, [facility] [address] [facility] [place] [address] Oct, [facility] [address] [facility] [place] [address] Oct, [facility] [address] [facility] [place] [address] Sep, [facility] [address] [facility] [place] [address] Aug, [facility] [address] [facility] [place] [address] Aug, [facility] [address] [facility] [id number] [place] [address] Aug, [facility] [address] [facility] [id number] [place] [address] Aug, [facility] [address] [facility] [place] [address] Aug, [facility] [address] [facility] [place] [address] Aug, [facility] [address] [facility] [place] [address] Aug, [facility] [address] [facility] [place] [address] Aug, [facility] [address] [facility] [place] [address] Aug, [facility] [address] [id number] [place] [address] Aug, [facility] [address] [facility] [place] [address] Aug, [facility] [address] [id number] [place] [address] Aug, [facility] [address] [id number] [place] [address] Aug, [facility] [address] [id number] [place] [address] Aug, 2013 [facility] [address] [id number] [place] [address] Jul, 2013 [facility] [address] [facility] [place] [address] Jul, 2013 [facility] [address] [id number] [place] [address] Jul, 2013 [facility] [address] [id number] [place] [address] Jul, 2013 [facility] [address] [id number] [facility] [place] [address] Jun, [facility] [address] [id number] [place] [address] Jun, [facility] [address] [facility] [id number] [place] [address] Jun, [facility] [address] [facility] [id number] [place] [address] Jun, [facility] [address] [facility] [id number] [place] [address] May, [facility] [address] [id number] [place] [address] May, [facility] [address] [facility] [place] [address] May, [facility] [address] [id number] [place] [address] May, [facility] [place] [facility] [address] [id number] [place] [address] May, [facility] [place] [facility] [address] [facility] [id number] [place] [address] May, [facility] [place] [facility] [address] [id number] [place] [address] May, [facility] [place] [facility] [address] [id number] [place] [address] May, [facility] [place] [facility] [address] [facility] [id number] [place] [address] May, [facility] [place] [facility] [address] [facility] [id number] [place] [address] May, [facility] [place] [facility] [address] [id number] [place] [address] May, [facility] [place] [facility] [address] [id number] [place] [address] May, [facility] [place] [facility] [address] [id number] [place] [address] May, [facility] [place] [facility] [address] [id number] [place] [address] Apr, [facility] [place] [facility] [address] [facility] [id number] [place] [address] Apr, [facility] [place] [facility] [address] [facility] [id number] [facility] [place] [address] Apr, [facility] [place] [facility] [address] [facility] [id number] [place] [place] [address] Apr, [facility] [place] [facility] [address] [facility] [id number] [facility] [place] [address] Apr, [facility] [place] [facility] [address] [id number] [place] [place] [address] Apr, [facility] [place] [facility] [address] [id number] [place] [address] Apr, [facility] [place] [facility] [address] [id number] [place] [place] [address] Apr, [facility] [place] [facility] [address] [facility] [id number] [place] [address] Apr, [facility] [address] [id number] [place] [place] [address] Apr, [facility] [address] [id number] [place] [address] Apr, [facility] [address] [id number] [place] [address] Apr, [facility] [address] [facility] [id number] [place] [place] [address] Apr, [facility] [address] [facility] [id number] [place] [address] Apr, [facility] [address] [facility] [id number] [place] [address] March, [facility] [address] [id number] [place] [address] March, [facility] [address] [id number] [place] [address] March, [facility] [address] [id number] [place] [place] [address] March, [facility] [address] [id number] [place] [address] March, [facility] [address] [id number] [place] [address] March, [facility] [address] [id number] [place] [address] March, [facility] [address] [id number] [place] [address] March, [facility] [address] [id number] [place] [address] March, [facility] [address] [id number] [place] [address] March, [facility] [address] [id number] [place] [address] Feb, [facility] [address] [id number] [place] [address] Feb, [facility] [address] [id number] [place] [address] Feb, [facility] [address] [id number] [place] [address] Feb, [facility] [address] [id number] [place] [address] Feb, [facility] [address] [id number] [place] [address] Feb, [facility] [address] [id number] [place] [address] Feb, [facility] [address] [id number] [place] [address] Feb, [facility] [address] [id number] [place] [address] Jan, [facility] [address] [id number] [place] [address] 18 Jan, 2014 [facility] [address] [id number] [place] [address] Jan, [facility] [address] [id number] [place] [address] Jan, [facility] [address] [id number] [place] [address] Jan, [facility] [address] [id number] [place] [address] Jan, [facility] [address] [id number] [place] [address] Jan, [facility] [address] [id number] [place] [address] Jan, [facility] [address] [id number] [place] [address] Jan, [facility] [address] [id number] [place] [address] Jan, [facility] [address] [id number] [place] [address] Dec, [facility] [address] [id number] [place] [address] Dec, [facility] [address] [id number] [place] [address] Nov, [facility] [address] [id number] [place] [address] Nov, [facility] [address] [id number] [place] [address] Nov, [facility] [address] [id number] [place] [address] Nov, [facility] [address] [id number] [place] [address] Nov, [facility] [address] [id number] [place] [address] Nov, [facility] [address] [id number] [place] [address] Nov, [facility] [address] [id number] [place] [address] Nov, [facility] [address] [id number] [place] [address] Oct, [facility] [address] [id number] [place] [address] Oct, [facility] [address] [id number] [place] [address] Oct, [facility] [address] [id number] [place] [address] Oct, [facility] [address] [id number] [place] [address] Oct, [facility] [address] [id number] [place] [address] Oct, [facility] [address] [id number] [place] [address] Sep, [facility] [address] [id number] [place] [address] Sep, [facility] [address] [id number] [place] [address] Sep, [facility] [address] [id number] [place] [address] Sep, [facility] [address] [id number] [place] [address] Sep, [facility] [address] [id number] [place] [address] Aug, [facility] [address] [id number] [place] [address] Aug, [facility] [address] [id number] [place] [address] Aug, [facility] [address] [id number] [place] [address] Aug, [facility] [address] [id number] [place] [address] Aug, [facility] [address] [id number] [place] [address] Aug, [facility] [address] [id number] [place] [address] Jul, [facility] [address] [id number] [place] [address] Jul, [facility] [address] [id number] [place] [address] Jul, [facility] [address] [id number] [place] [address] Jun, [facility] [address] [id number] [place] [address] Jun, [facility] [address] [id number] [place] [address] May, [facility] [address] [id number] [place] [address] May, [facility] [address] [id number] [place] [address] Apr, [facility] [address] [id number] [place] [address] Apr, [facility] [address] [id number] [place] [address] Apr, [facility] [address] [id number] [place] [address] March, [facility] [address] [id number] [place] [address] Feb, [facility] [address] [id number] [place] [address] Feb, [facility] [place] [address] [id number] [place] [address] Jan, [facility] [place] [address] [id number] [place] [address] Jan, [facility] [address] [id number] [place] [address] Jan, [facility] [address] [id number] [place] [address] Jan, [facility] [address] [id number] [place] [address] Jan, [facility] [address] [id number] [place] [address] Dec, [facility] [address] [id number] [place] [address] Dec, [facility] [address] [id number] [place] [address] Dec, [facility] [address] [id number] [place] [address] Dec, [facility] [address] [id number] [place] [address] Dec, [facility] [address] [id number] [place] [address] Dec, [facility] [address] [place] [id number] Nov, [facility] [address] [id number] [place] [address] Nov, [facility] [address] [id number] [place] [address] Nov, [facility] [address] [id number] [place] [address] Nov, [facility] [address] [id number] [place] [address] Nov, [facility] [address] [id number] [place] [address] Oct, [facility] [address] [id number] [place] [address] Oct, [facility] [address] [id number] [place] [address] Oct, [facility] [address] [id number] [place] [address] Oct, [facility] [address] [id number] [place] [address] Oct, [facility] [address] [id number] [place] [address] Oct, [facility] [address] [id number] [place] [address] Oct, [facility] [address] [id number] [place] [address] Oct, [facility] [address] [id number] [place] [address] Sep, [facility] [address] [id number] [place] [address] Sep, [facility] [address] [id number] [place] [address] Sep, [facility] [address] [id number] [place] [address] Sep, [facility] [address] [id number] [place] [address] Sep, [facility] [address] [id number] [place] [address] Sep, [facility] [address] [id number] [place] [address] Sep, [facility] [address] [id number] [place] [address] Sep, [facility] [address] [id number] [place] [address] Sep, [facility] [address] [id number] [place] [address] Sep, [facility] [address] [id number] [place] [address] Sep, [facility] [address] [id number] [place] [address] Sep, [facility] [address] [id number] [place] [address] Sep, [facility] [address] [id number] [place] [address] Sep, [facility] [address] [id number] [place] [address] Sep, [facility] [address] [id number] [place] [address] Sep, IMMUNIZATIONS No Known Immunizations SOCIAL HISTORY [...]
--- OUTSIDE RECORDS SUMMARY | 2020-04-17 21:28 | XMS REPORT ---
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 Active 89786722 Problem Other chronic pain G89.29 Active 8 0176836 Problem Hypertension, essential I10 Active 78076700 Problem Vitamin D deficiency E55.9 Active 38278814 Problem Mood disorder F39 Active 913448 05 Problem Type 1 diabetes mellitus with hyperglycemia E10.65 Active [id number] Problem Type 1 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 Active 36523471 Problem Chronic fatigue R53.82 Active 8422 9001 Problem Controlled diabetes mellitus type 1 without complications E10.9 Active 17866371 ALLERGIES No Information ENCOUNTERS Encounter Location Date Diagnosis [place] [address] [address] Nov, [facility] [address] [address] Nov, Type 1 diabetes mellitus with other diab etic neurological complication E10.49 [facility] [address] [address] Oct, Other chronic pain G89.29 [facility] [address] [address] Oct, Type 1 diabetes mellitus with other diab etic neurological complication E10.49 [facility] [address] [address] Oct, [facility] [address] [address] Aug, Type 1 diabetes mellitus with other diab etic neurological complication E10.49 [facility] [address] [place] [id number] [place] [address] 14 Aug, 2019 Encounter for immunization Z23 [facility] [address] [address] 08 Aug, 2019 Vitamin D deficiency E55.9 [facility] [address] [address] Jul, Type 1 diabetes mellitus with other diab etic neurological complication E10.49 [facility] [address] [address] 13 Jul, 2019 Type 1 diabetes mellitus with hyperglyce uma E10.65 [facility] [address] [address] Jun, Type 1 diabetes mellitus with other diab etic neurological complication E10.49 [facility] [address] [place] [id number] [place] [address] May, [facility] [address] [address] May, [facility] [address] [address] May, Other chronic pain G89.29 [facility] [address] [place] [id number] [place] [address] May, [facility] [address] [address] May, Type 1 diabetes mellitus with other diab etic neurological complication E10.49 [facility] [address] [place] [id number] [place] [address] Apr, [facility] [address] [address] Apr, Type 1 diabetes mellitus with other diab etic neurological complication E10.49 [facility] [address] [place] [id number] [place] [address] Apr, Encounter for Medicare annual wellness e xam Z00.00 [facility] [address] [id number] [place] [address] March, Encounter for Medicare annual wellness e xam Z00.00 and Type 1 diabetes mellitus with other diabetic neurological complication E10.49 [facility] [address] [place] [id number] [place] [address] 10 Feb, 2019 Type 1 diabetes mellitus with other diab etic neurological complication E10.49 [facility] [address] [place] [id number] [place] [address] 04 Feb, 2019 Encounter for Medicare annual wellness e xam Z00.00 ; Mood disorder F39 ; Type 1 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 ; Hypertension, essential I10 and Chronic fatigue R53.82 [facility] [address] [place] [id number] [place] [address] 13 Jan, 2019 Type 1 diabetes mellitus with other diab etic neurological complication E10.49 [facility] [address] [place] [id number] [place] [address] Jan, [facility] [address] [place] [id number] [place] [address] 07 Jan, 2019 Other chronic pain G89.29 [facility] [address] [place] [id number] [place] [address] 11 Dec, 2018 [facility] [address] [place] [id number] [place] [address] 08 Dec, 2018 Type 1 diabetes mellitus with other diab etic neurological complication E10.49 [facility] [address] [place] [id number] [place] [address] 05 Dec, 2018 Other chronic pain G89.29 [facility] [address] [id number] [place] [address] Nov, [facility] [address] [facility] [place] [id number] Nov, Caries K02.9 [facility] [address] [id number] [place] [address] Nov, Type 1 diabetes mellitus with other diab etic neurological complication E10.49 [facility] [address] [address] Nov, Controlled diabetes mellitus type 1 with out complications E10.9 ; Other chronic pain G89.29 and Pain in left knee M25.562 [facility] [address] [id number] Oct, Dental examination Z01.20 [facility] [address] [address] 14 Oct, 2018 Cutaneous abscess of unspecified foot L0 2.619 and Cellulitis of unspecified part of limb L03.119 [place] [address] [address] Oct, [place] [address] [address] 10 Oct, 2018 Type 1 diabetes mellitus with other diab etic neurological complication E10.49 [facility] [address] [id number] Oct, Dental examination Z01.20 and Caries K02 .9 [place] [address] [address] 04 Oct, 2018 Cutaneous abscess of left foot L02.612 a nd Cellulitis of left lower limb L03.116 [place] [address] [address] Oct, Dental examination Z01.20 and Pain, dent al K08.89 [facility] [address] [facility] [id number] [place] [address] Sep, Left foot pain M79.672 and L eft anterior knee pain M25.562 [place] [address] [address] Sep, Type 1 diabetes mellitus with other diab etic neurological complication E10.49 [facility] [address] [address] Sep, [place] [address] [place] [id number] [place] [address] Aug, Type 1 diabetes mellitus with other diab etic neurological complication E10.49 [facility] [address] [address] 10 Aug, 2018 Encounter for immunization Z23 [facility] [address] [place] [id number] [place] [address] 05 Aug, 2018 Type 1 diabetes mellitus with hyperglyce uma E10.65 [facility] [address] [address] Jul, Type 1 diabetes mellitus with hyperglyce uma E10.65 [facility] [address] [address] Jul, [facility] [address] [address] Jul, [facility] [address] [address] Jul, Type 1 diabetes mellitus with other diab etic neurological complication E10.49 [facility] [address] [address] Jul, Type 1 diabetes mellitus with other diab etic neurological complication E10.49 and Mood disorder F39 [facility] [address] [place] [id number] [place] [address] Jun, [facility] [address] [address] Jun, Type 1 diabetes mellitus with other diab etic neurological complication E10.49 and Chronic fatigue R53.82 [facility] [address] [place] [id number] [place] [address] May, Type 1 diabetes mellitus with other diab etic neurological complication E10.49 [facility] [address] [place] [id number] [place] [address] May, [facility] [address] [address] May, [facility] [address] [place] [address] [place] [address] Apr, [facility] [address] [address] Apr, Type 1 diabetes mellitus with other diab etic neurological complication E10.49 [facility] [address] [place] [id number] [place] [address] March, [facility] [address] [address] Feb, [facility] [address] [address] Feb, Type 1 diabetes mellitus with other diab etic neurological complication E10.49 ; Tobacco abuse Z72.0 and Tobacco abuse counseling Z71.6 [place] [address] [place] [id number] [place] [address] Jan, Type 1 diabetes mellitus with hyperglyce uma E10.65 [place] [address] [address] Jan, [facility] [address] [address] Dec, Tobacco abuse Z72.0 [place] [address] [address] Dec, Type 1 diabetes mellitus with hyperglyce uma E10.65 [place] [address] [place] [id number] [place] [address] Dec, Type 1 diabetes mellitus with hyperglyce uma E10.65 ; Tobacco abuse Z72.0 and Tobacco abuse counseling Z71.6 [place] [address] [address] Nov, Type 1 diabetes mellitus with hyperglyce uma E10.65 [place] [address] [address] Oct, Type 1 diabetes mellitus with hyperglyce uma E10.65 [place] [address] [address] Oct, Type 1 diabetes mellitus with hyperglyce uma E10.65 [facility] [address] [id number] [place] [address] Sep, Type 1 diabetes mellitus with hyperglyce uma E10.65 [facility] [address] [id number] [place] [address] Aug, Type 1 diabetes mellitus with hyperglyce uma E10.65 [facility] [address] [place] [id number] [place] [address] Aug, [facility] [address] [place] [id number] [place] [address] Aug, Type 1 diabetes mellitus with hyperglyce uma E10.65 [facility] [address] [place] [id number] [place] [address] Aug, Encounter for immunization Z23 [facility] [address] [place] [id number] [place] [address] Aug, Type 1 diabetes mellitus with hyperglyce uma E10.65 [facility] [address] [place] [id number] [place] [address] Jul, Type 1 diabetes mellitus with hyperglyce uma E10.65 [facility] [address] [place] [id number] [place] [address] Jul, Type 1 diabetes mellitus with hyperglyce uma E10.65 [facility] [address] [place] [id number] [place] [address] May, Type 1 diabetes mellitus with hyperglyce uma E10.65 [facility] [address] [place] [id number] [place] [address] May, [facility] [address] [place] [id number] [place] [address] Apr, [facility] [address] [place] [id number] [place] [address] Apr, Type 1 diabetes mellitus with hyperglyce uma E10.65 [facility] [address] [place] [id number] [place] [address] March, [facility] [address] [place] [id number] [place] [address] March, [facility] [address] [address] Jan, [facility] [address] [address] Jan, [facility] [address] [address] Jan, Type 1 diabetes mellitus with diabetic p olyneuropathy E10.42 [facility] [address] [address] Jan, Type 1 diabetes mellitus with hyperglyce uma E10.65 ; Excessive cerumen in both ear canals H61.23 and Controlled diabetes mellitus type 1 without complications E10.9 [facility] [address] [address] Dec, [facility] [address] [address] Dec, [facility] [address] [address] Dec, [facility] [address] [address] Dec, [facility] [address] [address] Nov, [facility] [address] [address] Nov, [facility] [address] [address] Oct, Type 1 diabetes mellitus with hyperglyce uma E10.65 [facility] [address] [address] Sep, [facility] [address] [address] Sep, [facility] [address] [address] Sep, Controlled diabetes mellitus type 1 with out complications E10.9 [facility] [address] [address] Sep, [facility] [address] [id number] Aug, Dental caries K02.9 [facility] [address] [address] Aug, Type 1 diabetes mellitus with diabetic p olyneuropathy E10.42 [facility] [address] [address] Aug, [facility] [address] [address] Aug, [facility] [address] [address] Aug, [facility] [address] [address] Jul, Type 1 diabetes mellitus with hyperglyce uma E10.65 [facility] [address] [address] Jul, Type 1 diabetes mellitus with hyperglyce uma E10.65 ; Tooth pain K08.8 and Encounter for immunization Z23 [facility] [address] [place] [id number] [place] [address] 08 Jul, 2016 Dental examination Z01.20 [facility] [address] [address] 08 Jul, 2016 [facility] [address] [address] 07 Jul, 2016 [facility] [address] [address] Jul, [facility] [address] [address] Jun, [facility] [address] [address] May, [facility] [address] [id number] [place] [address] Apr, [facility] [address] [id number] [place] [address] Apr, [facility] [address] [id number] [place] [address] Apr, [facility] [address] [id number] [place] [address] March, [facility] [address] [id number] [place] [address] March, [facility] [address] [id number] [place] [address] Feb, [facility] [address] [id number] [place] [address] Feb, [facility] [address] [id number] [place] [address] Feb, Type 1 diabetes mellitus with hyperglyce uma E10.65 [facility] [address] [id number] [place] [address] Jan, [facility] [address] [id number] [place] [address] Jan, [facility] [address] [id number] [place] [address] Jan, [facility] [address] [id number] [place] [address] Jan, [facility] [address] [id number] [place] [address] Dec, [facility] [address] [id number] [place] [address] Nov, [facility] [address] [id number] [place] [address] Nov, [facility] [address] [id number] [place] [address] Oct, [facility] [address] [place] [id number] [place] [address] 04 Oct, 2015 Type 1 diabetes mellitus with diabetic a utonomic (poly)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 ; Type 1 diabetes mellitus with hyperglycemia E10.65 ; Gastroparesis K31.84 and Esophageal stricture K22.2 [facility] [address] [place] [id number] [place] [address] Oct, [facility] [address] [address] Sep, [facility] [address] [address] Sep, Type 1 diabetes mellitus with other diab etic neurological complication E10.49 [place] [address] [address] Aug, Encounter for immunization Z23 [facility] [address] [address] Aug, [facility] [address] [address] Aug, [facility] [address] [address] Jul, [facility] [address] [address] Jul, [facility] [address] [address] Jun, [facility] [address] [address] Jun, [facility] [address] [address] Jun, [facility] [address] [address] May, [facility] [address] [address] May, [facility] [address] [address] May, Diabetes type 1, controlled 250.01 [facility] [address] [place] [id number] [place] [address] May, [facility] [address] [address] May, [facility] [place] [facility] [address] [id number] Apr, Dental examination V72.2 [facility] [address] [address] Apr, [facility] [address] [address] Apr, [facility] [address] [address] Apr, [facility] [address] [address] Apr, [facility] [address] [address] Apr, [facility] [address] [id number] Apr, Dental examination V72.2 [facility] [address] [address] Apr, [facility] [address] [address] Apr, [facility] [address] [address] March, Diabetes mellitus type 1 250.01 [facility] [address] [place] [id number] [place] [address] March, [facility] [address] [address] Feb, [facility] [address] [address] Feb, [facility] [address] [address] Jan, [facility] [address] [id number] [place] [address] Jan, [facility] [address] [id number] [place] [address] Jan, [facility] [address] [id number] [place] [address] Jan, [facility] [address] [id number] [place] [address] Dec, [facility] [address] [id number] [place] [address] Dec, [facility] [address] [id number] [place] [address] Nov, [facility] [address] [id number] [place] [address] Nov, [facility] [address] [place] [id number] [place] [address] Nov, [facility] [address] [id number] [place] [address] Nov, [facility] [address] [id number] [place] [address] Nov, [facility] [address] [id number] [place] [address] Nov, [facility] [address] [id number] [place] [address] Nov, [facility] [address] [id number] [place] [address] Oct, [facility] [address] [id number] [place] [address] Oct, [facility] [address] [id number] [place] [address] Sep, [facility] [address] [id number] [place] [address] Aug, [facility] [address] [id number] [place] [address] Aug, [facility] [address] [facility] [id number] [place] [address] Aug, [facility] [address] [facility] [id number] [place] [address] Aug, [facility] [address] [id number] [place] [address] Aug, [facility] [address] [id number] [place] [address] Aug, [facility] [address] [id number] [place] [address] Aug, [facility] [address] [id number] [place] [address] Aug, [facility] [address] [id number] [place] [address] Aug, [facility] [address] [id number] [place] [address] Aug, [facility] [address] [id number] [place] [address] Aug, [facility] [address] [id number] [place] [address] Aug, [facility] [address] [id number] [place] [address] Aug, [facility] [address] [id number] [place] [address] Aug, 2013 [facility] [address] [id number] [place] [address] Jul, 2013 [facility] [address] [id number] [place] [address] Jul, 2013 [facility] [address] [id number] [place] [address] Jul, 2013 [facility] [address] [id number] [place] [address] Jul, 2013 [facility] [address] [id number] [facility] [place] [address] Jun, [facility] [address] [id number] [place] [address] Jun, [facility] [address] [facility] [id number] [place] [address] Jun, [facility] [address] [facility] [id number] [place] [address] Jun, [facility] [address] [facility] [id number] [place] [address] May, [facility] [address] [id number] [place] [address] May, [facility] [address] [id number] [place] [address] May, [facility] [address] [id number] [place] [address] May, [facility] [address] [id number] [place] [address] May, [facility] [address] [facility] [id number] [place] [address] May, [facility] [address] [id number] [place] [address] May, [facility] [facility] [address] [id number] [place] [address] May, [facility] [place] [facility] [address] [facility] [id number] [place] [address] May, [facility] [place] [facility] [address] [facility] [id number] [place] [address] May, [facility] [place] [facility] [address] [id number] [place] [address] May, [facility] [place] [facility] [address] [id number] [place] [address] May, [facility] [place] [facility] [address] [id number] [place] [address] May, [facility] [place] [facility] [address] [id number] [facility] [place] [address] Apr, [facility] [place] [facility] [address] [facility] [id number] [place] [address] Apr, [facility] [place] [facility] [address] [facility] [id number] [facility] [place] [address] Apr, [facility] [place] [facility] [address] [facility] [id number] [facility] [place] [address] Apr, [facility] [place] [facility] [address] [facility] [id number] [facility] [place] [address] Apr, [facility] [place] [facility] [address] [id number] [facility] [place] [address] Apr, [facility] [place] [facility] [address] [id number] [place] [address] Apr, [facility] [address] [id number] [facility] [place] [address] Apr, [facility] [address] [facility] [id number] [facility] [place] [address] Apr, [facility] [address] [id number] [facility] [place] [address] Apr, [facility] [address] [id number] [place] [address] Apr, [facility] [address] [id number] [place] [address] Apr, [facility] [address] [facility] [id number] [facility] [place] [address] Apr, [facility] [address] [facility] [id number] [place] [address] Apr, [facility] [address] [facility] [id number] [place] [address] March, [facility] [address] [id number] [place] [address] March, [facility] [address] [id number] [place] [address] March, [facility] [address] [id number] [facility] [place] [address] March, [facility] [address] [id number] [place] [address] March, [facility] [address] [id number] [place] [address] March, [facility] [address] [id number] [place] [address] March, [facility] [address] [id number] [place] [address] March, [facility] [address] [id number] [place] [address] March, [facility] [address] [id number] [place] [address] March, [facility] [address] [id number] [place] [address] Feb, [facility] [address] [id number] [place] [address] Feb, [facility] [address] [id number] [place] [address] Feb, [facility] [address] [id number] [place] [address] Feb, [facility] [address] [id number] [place] [address] Feb, [facility] [address] [id number] [place] [address] Feb, [facility] [address] [id number] [place] [address] Feb, [facility] [address] [id number] [place] [address] Feb, [facility] [address] [id number] [place] [address] Jan, [facility] [address] [id number] [place] [address] 18 Jan, 2014 [facility] [address] [id number] [place] [address] Jan, [facility] [address] [id number] [place] [address] Jan, [facility] [address] [id number] [place] [address] Jan, [facility] [address] [id number] [place] [address] Jan, [facility] [address] [id number] [place] [address] Jan, [facility] [address] [id number] [place] [address] Jan, [facility] [address] [id number] [place] [address] Jan, [facility] [address] [id number] [place] [address] Jan, [facility] [address] [id number] [place] [address] Dec, [facility] [address] [id number] [place] [address] Dec, [facility] [address] [id number] [place] [address] Nov, [facility] [address] [id number] [place] [address] Nov, [facility] [address] [id number] [place] [address] Nov, [facility] [address] [id number] [place] [address] Nov, [facility] [address] [id number] [place] [address] Nov, [facility] [address] [id number] [place] [address] Nov, [facility] [address] [id number] [place] [address] Nov, [facility] [address] [id number] [place] [address] Nov, [facility] [address] [id number] [place] [address] Oct, [facility] [address] [id number] [place] [address] Oct, [facility] [address] [id number] [place] [address] Oct, [facility] [address] [id number] [place] [address] Oct, [facility] [address] [id number] [place] [address] Oct, [facility] [address] [id number] [place] [address] Oct, [facility] [address] [id number] [place] [address] Sep, [facility] [address] [id number] [place] [address] Sep, [facility] [address] [id number] [place] [address] Sep, [facility] [address] [id number] [place] [address] Sep, [facility] [address] [id number] [place] [address] Sep, [facility] [address] [id number] [place] [address] Aug, [facility] [address] [id number] [place] [address] Aug, [facility] [address] [id number] [place] [address] Aug, [facility] [address] [id number] [place] [address] Aug, [facility] [address] [id number] [place] [address] Aug, [facility] [address] [id number] [place] [address] Aug, [facility] [address] [id number] [place] [address] Jul, [facility] [address] [id number] [place] [address] Jul, [facility] [address] [id number] [place] [address] Jul, [facility] [address] [id number] [place] [address] Jun, [facility] [address] [id number] [place] [address] Jun, [facility] [address] [id number] [place] [address] May, [facility] [address] [id number] [place] [address] May, [facility] [address] [id number] [place] [address] Apr, [facility] [address] [id number] [place] [address] Apr, [facility] [address] [id number] [place] [address] Apr, [facility] [address] [id number] [place] [address] March, [facility] [address] [id number] [place] [address] Feb, [facility] [address] [id number] [place] [address] Feb, [facility] [address] [id number] [place] [address] Jan, [facility] [address] [id number] [place] [address] Jan, [facility] [address] [id number] [place] [address] Jan, [facility] [address] [id number] [place] [address] Jan, [facility] [address] [id number] [place] [address] Jan, [facility] [address] [id number] [place] [address] Dec, [facility] [address] [id number] [place] [address] Dec, [facility] [address] [id number] [place] [address] Dec, [facility] [address] [id number] [place] [address] Dec, [facility] [address] [id number] [place] [address] Dec, [facility] [address] [id number] [place] [address] Dec, [facility] [address] [place] [id number] Nov, [facility] [address] [id number] [place] [address] Nov, [facility] [address] [id number] [place] [address] Nov, [facility] [address] [id number] [place] [address] Nov, [facility] [address] [id number] [place] [address] Nov, [facility] [address] [id number] [place] [address] Oct, [facility] [address] [id number] [place] [address] Oct, [facility] [address] [id number] [place] [address] Oct, [facility] [address] [id number] [place] [address] Oct, [facility] [address] [id number] [place] [address] Oct, [facility] [address] [id number] [place] [address] Oct, [facility] [address] [id number] [place] [address] Oct, [facility] [address] [id number] [place] [address] Oct, [facility] [address] [id number] [place] [address] Sep, [facility] [address] [id number] [place] [address] Sep, [facility] [address] [id number] [place] [address] Sep, [facility] [address] [id number] [place] [address] Sep, [facility] [address] [id number] [place] [address] Sep, [facility] [address] [id number] [place] [address] Sep, [facility] [address] [id number] [place] [address] Sep, [facility] [address] [id number] [place] [address] Sep, [facility] [address] [id number] [place] [address] Sep, [facility] [address] [id number] [place] [address] Sep, [facility] [address] [id number] [place] [address] Sep, [facility] [address] [id number] [place] [address] Sep, [facility] [address] [id number] [place] [address] Sep, [facility] [address] [id number] [place] [address] Sep, [facility] [address] [id number] [place] [address] Sep, [facility] [address] [id number] [place] [address] Sep, IMMUNIZATIONS No Known Immunizations SOCIAL HISTORY [...]
--- OUTSIDE RECORDS SUMMARY | 2020-04-17 21:29 | XMS REPORT ---
Author Author Curt PATIÑO Organization [facility] [place] Address [address] [place] [address] Care Team Providers Care Extraction Operator Name Role Phone BISMARK PATIÑO Unavailable PROBLEMS Type Condition ICD9-CM Code YTL22-WR Code Onset Dates Condition S tatus SNOMED Code Problem Hypertension, essential I10 Active 78415162 Problem Gastroparesis K31.84 Active 654796 006 Problem Type 1 diabetes mellitus with other diab etic neurological complication E10.49 Active 19601902 Problem Controlled diabetes mellitus type 1 without complications E10.9 Active 30240147 Problem Mood disorder F39 Active 654444 05 Problem Other chronic pain G89.29 Active 8 8665124 Problem 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 Active 94894833 Problem Type 1 diabetes mellitus with hyperglycemia E10.65 Active [id number] Problem Type 1 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 Active 87962283 Problem Chronic fatigue R53.82 Active 8422 9001 ALLERGIES No Information ENCOUNTERS Encounter Location Date Diagnosis [facility] [place] [address] [facility] [id number] [address] [place] [phone] Jul, Type 1 diabetes mellitus wit h other diabetic neurological complication E10.49 [facility] [place] [address] [facility] [id number] [address] [place] [phone] Jul, Type 1 diabetes mellitus wit h hyperglycemia E10.65 [facility] [place] [address] [facility] [id number] [address] [place] [phone] Jun, Type 1 diabetes mellitus wit h other diabetic neurological complication E10.49 [facility] [place] [address] [facility] [id number] [address] [place] [phone] May, [facility] [place] [address] [facility] [id number] [address] [place] [phone] May, [facility] [place] [address] [facility] [id number] [address] [place] [phone] May, Other chronic pain G89.29 [facility] [place] [address] [id number] [address] [place] [id number] May, [facility] [place] [address] [id number] [address] [place] [phone] May, Type 1 diabetes mellitus wit h other diabetic neurological complication E10.49 [facility] [place] [address] [id number] [address] [place] [phone] Apr, [facility] [place] [address] [id number] [address] [place] [phone] Apr, Type 1 diabetes mellitus wit h other diabetic neurological complication E10.49 [facility] [place] [address] [facility] [id number] [address] [place] [phone] Apr, Encounter for Medicare annua l wellness exam Z00.00 [place] [address] [facility] [id number] [address] [place] [id number] March, Encounter for Medicare annua l wellness exam Z00.00 and Type 1 diabetes mellitus with other diabetic neurological complication E10.49 [facility] [place] [address] [facility] [id number] [address] [place] [phone] Feb, Type 1 diabetes mellitus wit h other diabetic neurological complication E10.49 [facility] [place] [address] [facility] [id number] [address] [place] [phone] Feb, Encounter for Medicare annua l wellness exam Z00.00 ; Mood disorder F39 ; Type 1 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 ; Hypertension, essential I10 and Chronic fatigue R53.82 [facility] [place] [address] [id number] [address] [place] [phone] Jan, Type 1 diabetes mellitus wit h other diabetic neurological complication E10.49 [facility] [place] [address] [facility] [id number] [address] [place] [phone] Jan, [facility] [place] [address] [facility] [id number] [address] [place] [phone] Jan, Other chronic pain G89.29 [facility] [place] [address] [id number] [address] [place] [phone] 11 Dec, 2018 [facility] [place] [address] [id number] [address] [place] [id number] 08 Dec, 2018 Type 1 diabetes mellitus wit h other diabetic neurological complication E10.49 [facility] [place] [address] [id number] [address] [place] [id number] 05 Dec, 2018 Other chronic pain G89.29 [facility] [place] [address] [id number] [address] [place] [phone] Nov, [facility] [address] [id number] [address] [place] [id number] Nov, Caries K02.9 [facility] [place] [address] [id number] [address] [place] [phone] Nov, Type 1 diabetes mellitus wit h other diabetic neurological complication E10.49 [facility] [place] [address] [id number] [address] [place] [id number] 07 Nov, 2018 Controlled diabetes mellitus type 1 without complications E10.9 ; Other chronic pain G89.29 and Pain in left knee M25.562 [facility] [address] [id number] [address] [place] [address] [id number] Oct, Dental examination Z01.20 [facility] [place] [address] [id number] [address] [place] [phone] 14 Oct, 2018 Cutaneous abscess of unspeci fied foot L02.619 and Cellulitis of unspecified part of limb L03.119 [facility] [place] [address] [id number] [address] [place] [id number] 11 Oct, 2018 [facility] [place] [address] [id number] [address] [place] [phone] 10 Oct, 2018 Type 1 diabetes mellitus wit h other diabetic neurological complication E10.49 [facility] [address] [id number] [address] [place] [address] [id number] 06 Oct, 2018 Dental examination Z01.20 an d Caries K02.9 [facility] [place] [address] [facility] [id number] [address] [place] [id number] 04 Oct, 2018 Cutaneous abscess of left fo ot L02.612 and Cellulitis of left lower limb L03.116 [facility] [place] [address] [facility] [id number] [address] [place] [phone] 04 Oct, 2018 Dental examination Z01.20 an d Pain, dental K08.89 [facility] [address] [facility] [id number] [address] [place] [phone] Sep, Left foot pain M79.672 and L eft anterior knee pain M25.562 [facility] [place] [address] [facility] [id number] [address] [place] [phone] Sep, Type 1 diabetes mellitus wit h other diabetic neurological complication E10.49 [facility] [place] [address] [facility] [id number] [address] [place] [phone] Sep, [facility] [place] [address] [facility] [id number] [address] [place] [phone] 11 Aug, 2018 Type 1 diabetes mellitus wit h other diabetic neurological complication E10.49 [facility] [place] [address] [facility] [id number] [address] [place] [phone] 10 Aug, 2018 Encounter for immunization Z 23 [facility] [place] [address] [facility] [id number] [address] [place] [phone] 05 Aug, 2018 Type 1 diabetes mellitus wit h hyperglycemia E10.65 [facility] [place] [address] [id number] [address] [place] [id number] Jul, Type 1 diabetes mellitus wit h hyperglycemia E10.65 [facility] [place] [address] [facility] [id number] [address] [place] [phone] Jul, [facility] [place] [address] [facility] [id number] [address] [place] [phone] Jul, [place] [address] [facility] [id number] [address] [place] [phone] Jul, Type 1 diabetes mellitus wit h other diabetic neurological complication E10.49 [facility] [place] [address] [id number] [address] [place] [id number] Jul, Type 1 diabetes mellitus wit h other diabetic neurological complication E10.49 and Mood disorder F39 [facility] [place] [address] [facility] [id number] [address] [place] [phone] Jun, [facility] [place] [address] [facility] [id number] [address] [place] [phone] Jun, Type 1 diabetes mellitus wit h other diabetic neurological complication E10.49 and Chronic fatigue R53.82 [facility] [place] [address] [facility] [id number] [address] [place] [phone] May, Type 1 diabetes mellitus wit h other diabetic neurological complication E10.49 [facility] [place] [address] [facility] [id number] [address] [place] [phone] May, [facility] [place] [address] [facility] [id number] [address] [place] [phone] May, [facility] [place] [address] [facility] [id number] [address] [place] [phone] Apr, [facility] [place] [address] [facility] [id number] [address] [place] [phone] Apr, Type 1 diabetes mellitus wit h other diabetic neurological complication E10.49 [facility] [place] [address] [facility] [id number] [address] [place] [phone] March, [facility] [place] [address] [facility] [id number] [address] [place] [phone] Feb, [facility] [place] [address] [facility] [id number] [address] [place] [phone] Feb, Type 1 diabetes mellitus wit h other diabetic neurological complication E10.49 ; Tobacco abuse Z72.0 and Tobacco abuse counseling Z71.6 [facility] [place] [address] [facility] [id number] [address] [place] [phone] Jan, Type 1 diabetes mellitus wit h hyperglycemia E10.65 [facility] [place] [address] [facility] [id number] [address] [place] [phone] Jan, [facility] [place] [address] [facility] [id number] [address] [place] [phone] Dec, Tobacco abuse Z72.0 [facility] [place] [address] [facility] [id number] [address] [place] [phone] Dec, Type 1 diabetes mellitus wit h hyperglycemia E10.65 [facility] [place] [address] [facility] [id number] [address] [place] [phone] Dec, Type 1 diabetes mellitus wit h hyperglycemia E10.65 ; Tobacco abuse Z72.0 and Tobacco abuse counseling Z71.6 [facility] [place] [address] [facility] [id number] [address] [place] [phone] Nov, Type 1 diabetes mellitus wit h hyperglycemia E10.65 [facility] [place] [address] [facility] [id number] [address] [place] [id number] Oct, Type 1 diabetes mellitus wit h hyperglycemia E10.65 [facility] [place] [address] [facility] [id number] [address] [place] [phone] Oct, Type 1 diabetes mellitus wit h hyperglycemia E10.65 [facility] [place] [address] [facility] [id number] [address] [place] [phone] Sep, Type 1 diabetes mellitus wit h hyperglycemia E10.65 [facility] [place] [address] [facility] [id number] [address] [place] [phone] Aug, Type 1 diabetes mellitus wit h hyperglycemia E10.65 [facility] [place] [address] [facility] [id number] [address] [place] [phone] Aug, [facility] [place] [address] [facility] [id number] [address] [place] [phone] Aug, Type 1 diabetes mellitus wit h hyperglycemia E10.65 [facility] [place] [address] [facility] [id number] [address] [place] [phone] Aug, Encounter for immunization Z 23 [facility] [place] [address] [id number] [address] [place] [phone] Aug, Type 1 diabetes mellitus wit h hyperglycemia E10.65 [facility] [place] [address] [id number] [address] [place] [phone] Jul, Type 1 diabetes mellitus wit h hyperglycemia E10.65 [facility] [place] [address] [id number] [address] [place] [phone] Jul, Type 1 diabetes mellitus wit h hyperglycemia E10.65 [facility] [place] [address] [id number] [address] [place] [phone] May, Type 1 diabetes mellitus wit h hyperglycemia E10.65 [facility] [place] [address] [facility] [id number] [address] [place] [phone] May, [facility] [place] [address] [facility] [id number] [address] [place] [phone] Apr, [facility] [place] [address] [id number] [address] [place] [id number] Apr, Type 1 diabetes mellitus wit h hyperglycemia E10.65 [facility] [place] [address] [facility] [id number] [address] [place] [phone] March, [facility] [place] [address] [facility] [id number] [address] [place] [phone] March, [facility] [place] [address] [facility] [id number] [address] [place] [phone] Jan, [facility] [place] [address] [id number] [address] [place] [phone] Jan, [facility] [place] [address] [facility] [id number] [address] [place] [phone] Jan, Type 1 diabetes mellitus wit h diabetic polyneuropathy E10.42 [facility] [place] [address] [id number] [address] [place] [phone] Jan, Type 1 diabetes mellitus wit h hyperglycemia E10.65 ; Excessive cerumen in both ear canals H61.23 and Controlled diabetes mellitus type 1 without complications E10.9 [facility] [place] [address] [id number] [address] [place] [phone] 16 Dec, 2016 [facility] [place] [address] [id number] [address] [place] [phone] Dec, [facility] [place] [address] [id number] [address] [place] [phone] Dec, [facility] [place] [address] [id number] [address] [place] [phone] Dec, [facility] [place] [address] [id number] [address] [place] [phone] Nov, [facility] [place] [address] [facility] [id number] [address] [place] [phone] Nov, [facility] [place] [address] [id number] [address] [place] [phone] Oct, Type 1 diabetes mellitus wit h hyperglycemia E10.65 [facility] [place] [address] [id number] [address] [place] [phone] 17 Sep, 2016 [facility] [place] [address] [id number] [address] [place] [phone] Sep, [facility] [place] [address] [id number] [address] [place] [phone] Sep, Controlled diabetes mellitus type 1 without complications E10.9 [facility] [place] [address] [id number] [address] [place] [phone] Sep, [facility] [address] [id number] [address] [place] [address] [id number] Aug, Dental caries K02.9 [facility] [place] [address] [id number] [address] [place] [id number] 10 Aug, 2016 Type 1 diabetes mellitus wit h diabetic polyneuropathy E10.42 [facility] [place] [address] [id number] [address] [place] [phone] Aug, [facility] [place] [address] [id number] [address] [place] [phone] Aug, [facility] [place] [address] [id number] [address] [place] [phone] Aug, [facility] [place] [address] [id number] [address] [place] [phone] Jul, Type 1 diabetes mellitus wit h hyperglycemia E10.65 [facility] [place] [address] [id number] [address] [place] [phone] Jul, Type 1 diabetes mellitus wit h hyperglycemia E10.65 ; Tooth pain K08.8 and Encounter for immunization Z23 [facility] [address] [id number] [address] [place] [address] [id number] 08 Jul, 2016 Dental examination Z01.20 [facility] [place] [address] [id number] [address] [place] [phone] Jul, [facility] [place] [address] [id number] [address] [place] [id number] Jul, [facility] [place] [address] [id number] [address] [place] [phone] Jul, [facility] [place] [address] [id number] [address] [place] [phone] Jun, [facility] [place] [address] [id number] [address] [place] [phone] May, [facility] [place] [address] [id number] [address] [place] [phone] Apr, [facility] [place] [address] [id number] [address] [place] [phone] Apr, [facility] [place] [address] [id number] [address] [place] [phone] Apr, [facility] [place] [address] [id number] [address] [place] [phone] March, [facility] [place] [address] [id number] [address] [place] [id number] March, [facility] [place] [address] [id number] [address] [place] [id number] Feb, [facility] [place] [address] [id number] [address] [place] [phone] Feb, [facility] [place] [address] [id number] [address] [place] [phone] Feb, Type 1 diabetes mellitus wit h hyperglycemia E10.65 [facility] [place] [address] [id number] [address] [place] [phone] Jan, [facility] [place] [address] [id number] [address] [place] [phone] Jan, [facility] [place] [address] [facility] [id number] [address] [place] [phone] Jan, [facility] [place] [address] [id number] [address] [place] [phone] Jan, [facility] [place] [address] [id number] [address] [place] [phone] Dec, [facility], [place], [facility] [address] [facility] [id number] [address] [place] [id number] Nov, [facility], [place], [facility] [address] [facility] [id number] [address] [place] [phone] Nov, [facility], [place], [facility] [address] [facility] [id number] [address] [place] [id number] Oct, [facility], [place], [facility] [address] [facility] [id number] [address] [place] [address] [id number] Oct, Type 1 diabetes mellitus wit h 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 ; Type 1 diabetes mellitus with hyperglycemia E10.65 ; Gastroparesis K31.84 and Esophageal stricture K22.2 [facility] [place] [address] [id number] [address] [place] [id number] Oct, [facility] [place] [address] [id number] [address] [place] [id number] Sep, [facility] [place] [address] [id number] [address] [place] [id number] Sep, Type 1 diabetes mellitus wit h other diabetic neurological complication E10.49 [facility] [place] [address] [id number] [address] [place] [phone] Aug, Encounter for immunization Z 23 [facility] [place] [address] [id number] [address] [place] [id number] Aug, [facility] [place] [address] [id number] [address] [place] [id number] Aug, [facility] [place] [address] [id number] [address] [place] [id number] Jul, [facility] [place] [address] [id number] [address] [place] [id number] Jul, [facility] [place] [address] [id number] [address] [place] [id number] Jun, [facility] [place] [address] [id number] [address] [place] [id number] Jun, [facility] [place] [address] [id number] [address] [place] [id number] Jun, [facility] [place] [address] [id number] [address] [place] [id number] May, [facility] [place] [address] [id number] [address] [place] [phone] May, [facility] [place] [address] [id number] [address] [place] [id number] May, Diabetes type 1, controlled 250.01 [facility] [place] [address] [id number] [address] [place] [phone] May, [facility] [place] [address] [id number] [address] [place] [phone] May, [facility] [address] [id number] [address] [place] [id number] Apr, Dental examination V72.2 [facility] [address] [id number] [address] [place] [id number] Apr, [facility] [address] [id number] [address] [place] [phone] Apr, [facility] [address] [id number] [address] [place] [id number] Apr, [facility] [address] [id number] [address] [place] [id number] Apr, [facility] [address] [id number] [address] [place] [phone] Apr, [facility] [address] [id number] [address] [place] [id number] Apr, Dental examination V72.2 [facility] [address] [id number] [address] [place] [phone] Apr, [facility] [address] [id number] [address] [place] [id number] Apr, [facility] [address] [id number] [address] [place] [id number] March, Diabetes mellitus type 1 250 .01 [facility] [place] [address] [id number] [address] [place] [id number] March, [facility] [place] [address] [id number] [address] [place] [id number] 14 Feb, 2015 [facility] [address] [id number] [address] [place] [phone] Feb, [facility] [address] [id number] [address] [place] [phone] Jan, [facility] [place] [address] [id number] [address] [place] [phone] Jan, [facility] [address] [id number] [address] [place] [address], [place] [address] Jan, [facility] [address] [id number] [address] [place] [address], [place] [address] Jan, [facility] [address] [id number] [address] [place] [address], [place] [address] Dec, [facility] [address] [id number] [address] [place] [address], [place] [address] Dec, [facility] [address] [id number] [address] [place] [address], [place] [address] Nov, [facility] [address] [id number] [address] [place] [address], [place] [address] Nov, [facility] [address] [id number] [address] [place] [address], [place] [address] Nov, [facility] [address] [id number] [address] [place] [address], [place] [address] Nov, [facility] [address] [id number] [address] [place] [address], [place] [address] Nov, [facility] [address] [id number] [address] [place] [address], [place] [address] Nov, [facility] [address] [id number] [address] [place] [address], [place] [address] Nov, [facility] [address] [id number] [address] [place] [id number] Oct, [facility] [address] [id number] [address] [place] [address], [place] [address] Oct, [facility] [address] [id number] [address] [place] [address], [place] [address] Sep, [facility] [address] [id number] [address] [place] [address], [place] [address] Aug, [facility] [address] [id number] [address] [place] [address], [place] [address] Aug, [facility] [address] [id number] [address] [place] [address], [place] [address] Aug, [facility] [address] [id number] [address] [place] [address], [place] [address] Aug, [facility] [address] [id number] [address] [place] [address], [place] [address] Aug, [facility] [address] [id number] [address] [place] [address], [place] [address] Aug, [facility] [address] [id number] [address] [place] [address], [place] [address] Aug, [facility] [address] [id number] [address] [place] [address], [place] [address] Aug, [facility] [address] [id number] [address] [place] [address], [place] [address] Aug, [facility] [address] [id number] [address] [place] [address], [place] [address] Aug, [facility] [address] [id number] [address] [place] [address], [place] [address] Aug, [facility] [address] [id number] [address] [place] [address], [place] [address] Aug, [facility] [address] [id number] [address] [place] [address], [place] [address] Aug, 2013 [facility] [address] [id number] [address] [place] [address], [place] [address] Aug, 2013 [facility] [address] [id number] [address] [place] [address], [place] [address] Jul, 2013 [facility] [address] [id number] [address] [place] [address], [place] [address] Jul, 2013 [facility] [address] [id number] [address] [place] [address], [place] [address] Jul2013 [facility] [address] [id number] [facility] [address] Jul, [facility] [address] [id number] [facility] [address] Jun, [facility] [address] [id number] [facility] [address] Jun, [facility] [address] [id number] [address] [place] [address], [place] [address] Jun, [facility] [address] [id number] [address] [place] [address], [place] [address] Jun, [facility] [address] [id number] [address] [place] [address], [place] [address] May, [facility] [address] [id number] [address] [place] [address], [place] [address] May, [facility] [address] [id number] [address] [place] [address], [place] [address] May, [facility] [address] [id number] [address] [place] [address], [place] [address] May, [facility] [address] [id number] [address] [place] [address], [place] [address] May, [facility] [address] [id number] [address] [place] [address], [place] [address] May, [facility] [address] [id number] [address] [place] [address], [place] [address] May, [facility] [address] [id number] [address] [place] [address], [place] [address] May, [facility] [address] [id number] [address] [place] [address], [place] [address] May, [facility] [address] [id number] [address] [place] [address], [place] [address] May, [facility] [address] [id number] [address] [place] [address], [place] [address] May, [facility] [address] [id number] [facility] [address] May, [facility] [address] [id number] [address] [place] [address], [place] [address] May, [facility] [address] [id number] [facility] [address] Apr, [facility] [address] [id number] [address] [place] [address], [place] [address] Apr, [facility] [address] [id number] [address] [place] [address], [place] [address] Apr, [facility] [address] [id number] [address] [place] [address], [place] [address] Apr, [facility] [address] [id number] [address] [place] [address], [place] [address] Apr, [facility] [address] [id number] [address] [place] [address], [place] [address] Apr, [facility] [address] [id number] [address] [place] [address], [place] [address] Apr, [facility] [address] [id number] [address] [place] [address], [place] [address] Apr, [facility] [address] [id number] [address] [place] [address], [place] [address] Apr, [facility] [address] [id number] [address] [place] [address], [place] [address] Apr, [facility] [address] [id number] [address] [place] [address], [place] [address] Apr, [facility] [address] [id number] [address] [place] [address], [place] [address] Apr, [facility] [address] [id number] [address] [place] [address], [place] [address] Apr, [facility] [address] [id number] [address] [place] [address], [place] [address] Apr, [facility] [address] [id number] [address] [place] [address], [place] [address] March, [facility] [address] [id number] [address] [place] [address], [place] [address] March, [facility] [address] [id number] [address] [place] [address], [place] [address] March, [facility] [address] [id number] [address] [place] [address], [place] [address] March, [facility] [address] [id number] [address] [place] [address], [place] [address] March, [facility] [address] [id number] [address] [place] [address], [place] [address] March, [facility] [address] [id number] [address] [place] [address], [place] [address] March, [facility] [address] [id number] [address] [place] [address], [place] [address] March, [facility] [address] [id number] [address] [place] [address], [place] [address] March, [facility] [address] [id number] [address] [place] [address], [place] [address] March, [facility] [address] [id number] [address] [place] [address], [place] [address] Feb, [facility] [address] [id number] [address] [place] [address], [place] [address] Feb, [facility] [address] [id number] [address] [place] [address], [place] [address] Feb, [facility] [address] [id number] [address] [place] [address], [place] [address] Feb, [facility] [address] [id number] [address] [place] [address], [place] [address] Feb, [facility] [address] [id number] [address] [place] [address], [place] [address] Feb, [facility] [address] [id number] [address] [place] [address], [place] [address] Feb, [facility] [address] [id number] [address] [place] [address], [place] [address] Feb, [facility] [address] [id number] [address] [place] [address], [place] [address] Jan, [facility] [address] [id number] [address] [place] [address], [place] [address] Jan, [facility] [address] [id number] [address] [place] [address], [place] [address] Jan, [facility] [address] [id number] [address] [place] [address], [place] [address] Jan, [facility] [address] [id number] [address] [place] [address], [place] [address] Jan, [facility] [address] [id number] [address] [place] [address], [place] [address] Jan, [facility] [address] [id number] [address] [place] [address], [place] [address] Jan, [facility] [address] [id number] [address] [place] [address], [place] [address] Jan, [facility] [address] [id number] [address] [place] [address], [place] [address] Jan, [facility] [address] [id number] [address] [place] [address], [place] [address] Jan, [facility] [address] [id number] [address] [place] [address], [place] [address] Dec, [facility] [address] [id number] [address] [place] [address], [place] [address] Dec, [facility] [address] [id number] [address] [place] [address], [place] [address] Nov, [facility] [address] [id number] [address] [place] [address], [place] [address] Nov, [facility] [address] [id number] [address] [place] [address], [place] [address] Nov, [facility] [address] [id number] [address] [place] [address], [place] [address] Nov, [facility] [address] [id number] [address] [place] [address], [place] [address] Nov, [facility] [address] [id number] [address] [place] [address], [place] [address] Nov, [facility] [address] [id number] [address] [place] [address], [place] [address] Nov, [facility] [address] [id number] [address] [place] [address], [place] [address] Nov, [facility] [address] [id number] [address] [place] [address], [place] [address] Oct, [facility] [address] [id number] [address] [place] [address], [place] [address] Oct, [facility] [address] [id number] [address] [place] [address], [place] [address] Oct, [facility] [address] [id number] [address] [place] [address], [place] [address] Oct, [facility] [address] [id number] [address] [place] [address], [place] [address] Oct, [facility] [address] [id number] [address] [place] [address], [place] [address] Oct, [facility] [address] [id number] [address] [place] [address], [place] [address] Sep, [facility] [address] [id number] [address] [place] [address], [place] [address] Sep, [facility] [address] [id number] [address] [place] [address], [place] [address] Sep, [facility] [address] [id number] [address] [place] [address], [place] [address] Sep, [facility] [address] [id number] [address] [place] [address], [place] [address] Sep, [facility] [address] [id number] [address] [place] [address], [place] [address] Aug, [facility] [address] [id number] [address] [place] [address], [place] [address] Aug, [facility] [address] [id number] [address] [place] [address], [place] [address] Aug, [facility] [address] [id number] [address] [place] [address], [place] [address] Aug, [facility] [address] [id number] [address] [place] [address], [place] [address] Aug, [facility] [address] [id number] [address] [place] [address], [place] [address] Aug, [facility] [address] [id number] [address] [place] [address], [place] [address] Jul, [facility] [address] [id number] [address] [place] [address], [place] [address] Jul, [facility] [address] [id number] [address] [place] [address], [place] [address] Jul, [facility] [address] [id number] [address] [place] [address], [place] [address] Jun, [facility] [address] [id number] [address] [place] [address], [place] [address] Jun, [facility] [address] [id number] [address] [place] [address], [place] [address] May, [facility] [address] [id number] [address] [place] [address], [place] [address] May, [facility] [address] [id number] [address] [place] [address], [place] [address] Apr, [facility] [address] [id number] [address] [place] [address], [place] [address] Apr, [facility] [address] [id number] [address] [place] [address], [place] [address] Apr, [facility] [address] [id number] [address] [place] [address], [place] [address] March, [facility] [address] [id number] [address] [place] [address], [place] [address] Feb, [facility] [address] [id number] [address] [place] [address], [place] [address] Feb, [facility] [address] [id number] [address] [place] [address], [place] [address] Jan, [facility] [address] [id number] [address] [place] [address], [place] [address] Jan, [facility] [address] [id number] [address] [place] [address], [place] [address] Jan, [facility] [address] [id number] [address] [place] [address], [place] [address] Jan, [facility] [address] [id number] [address] [place] [address], [place] [address] Jan, [facility] [address] [id number] [address] [place] [address], [place] [address] Dec, [facility] [address] [id number] [address] [place] [address], [place] [address] Dec, [facility] [address] [id number] [address] [place] [address], [place] [address] 18 Dec, 2012 [facility] [address] [id number] [address] [place] [address], [place] [address] Dec, [facility] [address] [id number] [address] [place] [address], [place] [address] Dec, [facility] [address] [id number] [address] [place] [address], [place] [address] Dec, [facility] [address] [place] [id number] Nov, [facility] [address] [id number] [address] [place] [address], [place] [address] Nov, [facility] [address] [id number] [address] [place] [address], [place] [address] Nov, [facility] [address] [id number] [address] [place] [address], [place] [address] Nov, [facility] [address] [id number] [address] [place] [address], [place] [address] Nov, [facility] [address] [id number] [address] [place] [address], [place] [address] Oct, [facility] [address] [id number] [address] [place] [address], [place] [address] Oct, [facility] [address] [id number] [address] [place] [address], [place] [address] Oct, [facility] [address] [id number] [address] [place] [address], [place] [address] Oct, [facility] [address] [id number] [address] [place] [address], [place] [address] Oct, [facility] [address] [id number] [address] [place] [address], [place] [address] Oct, [facility] [address] [id number] [address] [place] [address], [place] [address] Oct, [facility] [address] [id number] [address] [place] [address], [place] [address] Oct, [facility] [address] [id number] [address] [place] [address], [place] [address] Sep, [facility] [place] [address] [id number] [address] [place] [id number] Sep, [facility] [place] [address] [id number] [address] [place] [phone] Sep, [facility] [place] [address] [id number] [address] [place] [id number] Sep, [facility] [place] [address] [id number] [address] [place] [phone] Sep, [facility] [place] [address] [id number] [address] [place] [phone] Sep, [facility] [place] [address] [id number] [address] [place] [phone] Sep, [facility] [place] [address] [id number] [address] [place] [phone] Sep, [facility] [place] [address] [id number] [address] [place] [phone] Sep, [facility] [place] [address] [id number] [address] [place] [phone] Sep, [facility] [place] [address] [id number] [address] [place] [phone] Sep, [facility] [place] [address] [id number] [address] [place] [phone] Sep, [facility] [place] [address] [id number] [address] [place] [id number] Sep, [facility] [place] [facility] [address] [id number] [address] [place] [id number] Sep, [facility], [place], [facility] [address] [id number] [address] [place] [id number] Sep, [facility], [place], [facility] [address] [id number] [address] [place] [id number] Sep, IMMUNIZATIONS No Known Immunizations SOCIAL HISTORY [...]
--- OUTSIDE RECORDS SUMMARY | 2020-04-17 21:29 | XMS REPORT ---
Author Author Curt PATIÑO Organization 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 [address] [address] Nov, [facility] [address] [address] Nov, Type 1 diabetes mellitus with other diab etic neurological complication E10.49 [facility] [address] [address] Oct, Other chronic pain G89.29 [facility] [address] [address] Oct, Type 1 diabetes mellitus with other diab etic neurological complication E10.49 [facility] [address] [address] Oct, [facility] [address] [place] [address] 29 Aug, 2019 Type 1 diabetes mellitus with other diab etic neurological complication E10.49 [facility] [address] [address] 14 Aug, 2019 Encounter for immunization Z23 [facility] [address] [address] 08 Aug, 2019 Vitamin D deficiency E55.9 [facility] [address] [address] Jul, Type 1 diabetes mellitus with other diab etic neurological complication E10.49 [facility] [address] [address] Jul, Type 1 diabetes mellitus with hyperglyce uma E10.65 [facility] [address] [address] Jun, Type 1 diabetes mellitus with other diab etic neurological complication E10.49 [facility] [address] [address] May, [facility] [address] [address] May, [facility] [address] [address] May, Other chronic pain G89.29 [facility] [address] [address] May, [facility] [address] [address] May, Type 1 diabetes mellitus with other diab etic neurological complication E10.49 [facility] [address] [address] Apr, [facility] [address] [address] Apr, Type 1 diabetes mellitus with other diab etic neurological complication E10.49 [facility] [address] [address] Apr, Encounter for Medicare annual wellness e xam Z00.00 [facility] [address] [facility] [place] [address] March, Encounter for Medicare annual wellness e xam Z00.00 and Type 1 diabetes mellitus with other diabetic neurological complication E10.49 [facility] [address] [facility] [place] [address] Feb, Type 1 diabetes mellitus with other diab etic neurological complication E10.49 [facility] [id number] [place] [address] Feb, Encounter for Medicare annual wellness e xam Z00.00 ; Mood disorder F39 ; Type 1 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 ; Hypertension, essential I10 and Chronic fatigue R53.82 [facility] [id number] [place] [address] Jan, Type 1 diabetes mellitus with other diab etic neurological complication E10.49 [facility] [id number] [place] [address] Jan, [facility] [id number] [place] [address] Jan, Other chronic pain G89.29 [facility] [id number] [place] [address] Dec, [facility] [id number] [place] [address] 08 Dec, 2018 Type 1 diabetes mellitus with other diab etic neurological complication E10.49 [facility] [id number] [place] [address] 05 Dec, 2018 Other chronic pain G89.29 [facility] [id number] [place] [address] Nov, [facility] [address] [facility] [id number] [place] [id number] Nov, Caries K02.9 [facility] [address] [id number] [place] [address] Nov, Type 1 diabetes mellitus with other diab etic neurological complication E10.49 [place] [address] [address] Nov, Controlled diabetes mellitus type 1 with out complications E10.9 ; Other chronic pain G89.29 and Pain in left knee M25.562 [facility] [address] [id number] Oct, Dental examination Z01.20 [place] [address] [address] 14 Oct, 2018 Cutaneous abscess of unspecified foot L0 2.619 and Cellulitis of unspecified part of limb L03.119 [place] [address] [address] 11 Oct, 2018 [place] [address] [address] 10 Oct, 2018 Type 1 diabetes mellitus with other diab etic neurological complication E10.49 [facility] [address] [id number] Oct, Dental examination Z01.20 and Caries K02 .9 [place] [address] [address] 04 Oct, 2018 Cutaneous abscess of left foot L02.612 a nd Cellulitis of left lower limb L03.116 [place] [address] [address] Oct, Dental examination Z01.20 and Pain, dent al K08.89 [facility] [address] [facility] [id number] [address] [place] [address] Sep, Left foot pain M79.672 and L eft anterior knee pain M25.562 [place] [address] [address] 12 Sep, 2018 Type 1 diabetes mellitus with other diab etic neurological complication E10.49 [place] [address] [address] Sep, [facility] [address] [address] 11 Aug, 2018 Type 1 diabetes mellitus with other diab etic neurological complication E10.49 [facility] [address] [place] [address] 10 Aug, 2018 Encounter for immunization Z23 [facility] [address] [address] 05 Aug, 2018 Type 1 diabetes mellitus with hyperglyce uma E10.65 [place] [address] [address] 21 Jul, 2018 Type 1 diabetes mellitus with hyperglyce uma E10.65 [place] [address] [address] 19 Jul, 2018 [place] [address] [address] 18 Jul, 2018 [place] [address] [address] 17 Jul, 2018 Type 1 diabetes mellitus with other diab etic neurological complication E10.49 [place] [address] [address] Jul, Type 1 diabetes mellitus with other diab etic neurological complication E10.49 and Mood disorder F39 [place] [address] [address] Jun, [place] [address] [address] Jun, Type 1 diabetes mellitus with other diab etic neurological complication E10.49 and Chronic fatigue R53.82 [place] [address] [address] May, Type 1 diabetes mellitus with other diab etic neurological complication E10.49 [place] [address] [address] May, [facility] [address] [address] May, [facility] [id number] [place] [address] Apr, [facility] [id number] [place] [address] Apr, Type 1 diabetes mellitus with other diab etic neurological complication E10.49 [facility] [id number] [place] [address] March, [facility] [address] [place] [address] Feb, [facility] [id number] [place] [address] Feb, Type 1 diabetes mellitus with other diab etic neurological complication E10.49 ; Tobacco abuse Z72.0 and Tobacco abuse counseling Z71.6 [place] [id number] [place] [address] Jan, Type 1 diabetes mellitus with hyperglyce uma E10.65 [facility] [id number] [place] [address] Jan, [facility] [id number] [place] [address] Dec, Tobacco abuse Z72.0 [facility] [id number] [place] [address] Dec, Type 1 diabetes mellitus with hyperglyce uma E10.65 [place] [id number] [place] [address] Dec, Type 1 diabetes mellitus with hyperglyce uma E10.65 ; Tobacco abuse Z72.0 and Tobacco abuse counseling Z71.6 [facility] [address] [place] [address] Nov, Type 1 diabetes mellitus with hyperglyce uma E10.65 [place] [id number] [place] [address] Oct, Type 1 diabetes mellitus with hyperglyce uma E10.65 [facility] [id number] [place] [address] Oct, Type 1 diabetes mellitus with hyperglyce uma E10.65 [facility] [id number] [place] [address] Sep, Type 1 diabetes mellitus with hyperglyce uma E10.65 [facility] [address] [facility] [place] [address] Aug, Type 1 diabetes mellitus with hyperglyce uma E10.65 [facility] [id number] [place] [address] Aug, [facility] [id number] [place] [address] Aug, Type 1 diabetes mellitus with hyperglyce uma E10.65 [place] [address] [place] [address] Aug, Encounter for immunization Z23 [place] [address] [place] [address] Aug, Type 1 diabetes mellitus with hyperglyce uma E10.65 [place] [id number] [place] [address] Jul, Type 1 diabetes mellitus with hyperglyce uma E10.65 [place] [id number] [place] [address] Jul, Type 1 diabetes mellitus with hyperglyce uma E10.65 [place] [id number] [place] [address] May, Type 1 diabetes mellitus with hyperglyce uma E10.65 [facility] [address] [facility] [place] [address] May, [place] [id number] [place] [address] Apr, [facility] [id number] [place] [address] Apr, Type 1 diabetes mellitus with hyperglyce uma E10.65 [facility] [address] [place] [address] March, [facility] [address] [address] March, [facility] [address] [address] Jan, [facility] [address] [address] Jan, [facility] [address] [address] Jan, Type 1 diabetes mellitus with diabetic p olyneuropathy E10.42 [facility] [address] [address] Jan, Type 1 diabetes mellitus with hyperglyce uma E10.65 ; Excessive cerumen in both ear canals H61.23 and Controlled diabetes mellitus type [address] [facility] [address] [address] Dec, [facility] [address] [address] Dec, [facility] [address] [address] Dec, [facility] [address] [address] Dec, [facility] [address] [address] Nov, [facility] [address] [address] Nov, [facility] [address] [address] Oct, Type 1 diabetes mellitus with hyperglyce uma E10.65 [facility] [address] [address] Sep, [facility] [address] [address] Sep, [facility] [address] [address] Sep, Controlled diabetes mellitus type 1 with out complications E10.9 [facility] [address] [address] Sep, [facility] [address] [id number] Aug, Dental caries K02.9 [facility] [address] [address] Aug, Type 1 diabetes mellitus with diabetic p olyneuropathy E10.42 [facility] [address] [address] Aug, [facility] [address] [address] Aug, [facility] [address] [address] Aug, [facility] [address] [address] Jul, Type 1 diabetes mellitus with hyperglyce uma E10.65 [facility] [address] [address] Jul, Type 1 diabetes mellitus with hyperglyce uma E10.65 ; Tooth pain K08.8 and Encounter for immunization Z23 [facility] [address] [id number] 08 Jul, [address] [facility] [address] [address] 08 Jul, 2016 [facility] [address] [address] Jul, [facility] [address] [address] Jul, [facility] [address] [address] Jun, [facility] [id number] [place] [address] May, [facility] [address] [id number] [place] [address] Apr, [facility] [address] [id number] [place] [address] Apr, [facility] [address] [id number] [place] [address] Apr, [facility] [address] [id number] [place] [address] March, [facility] [address] [id number] [place] [address] March, [facility] [address] [id number] [place] [address] Feb, [facility] [id number] [place] [address] Feb, [facility] [address] [id number] [place] [address] Feb, Type 1 diabetes mellitus with hyperglyce uma E10.65 [facility] [address] [id number] [place] [address] Jan, [facility] [address] [id number] [place] [address] Jan, [facility] [address] [id number] [place] [address] Jan, [facility] [address] [id number] [place] [address] Jan, [facility] [address] [id number] [place] [address] Dec, [facility] [address] [id number] [place] [address] Nov, [facility] [address] [id number] [place] [address] Nov, [facility] [address] [id number] [place] [address] 07 Oct, 2015 [facility] [address] [address] Oct, Type 1 diabetes mellitus with diabetic a utonomic (poly)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 ; Type 1 diabetes mellitus with hyperglycemia E10.65 ; Gastroparesis K31.[address]ure K22.2 [facility] [address] [address] Oct, [facility] [address] [address] Sep, [facility] [address] [address] Sep, Type 1 diabetes mellitus with other diab etic neurological complication E10.49 [facility] [address] [address] Aug, Encounter for immunization Z23 [facility] [address] [address] Aug, [facility] [address] [address] Aug, [facility] [address] [address] Jul, [facility] [address] [address] Jul, [facility] [address] [address] Jun, [facility] [address] [address] Jun, [facility] [address] [address] Jun, [facility] [address] [address] May, [facility] [address] [address] May, [facility] [id number] [place] [address] May, Diabetes type 1, controlled 250.01 [facility] [address] [place] [address] May, [facility] [id number] [place] [address] May, [facility] [id number] [place] [id number] Apr, Dental examination V72.2 [facility] [id number] [place] [address] Apr, [facility] [address] [address] Apr, [facility] [id number] [place] [address] Apr, [facility] [address] [address] Apr, [facility] [id number] [place] [address] Apr, [facility] [id number] [place] [id number] Apr, Dental examination V72.2 [facility] [id number] [place] [address] Apr, [facility] [address] [address] Apr, [facility] [id number] [place] [address] March, Diabetes mellitus type [address] [facility] [address] [address] March, [facility] [address] [place] [address] 14 Feb, 2015 [facility] [address] [address] Feb, [facility] [address] [id number] [place] [address] Jan, [facility] [address] [id number] [place] [address] Jan, [facility] [address] [id number] [place] [address] Jan, [facility] [address] [id number] [place] [address] Jan, [facility] [address] [id number] [place] [address] Dec, [facility] [address] [id number] [place] [address] Dec, [facility] [address] [id number] [place] [address] Nov, [facility] [address] [id number] [place] [address] Nov, [facility] [address] [id number] [place] [address] Nov, [facility] [address] [id number] [place] [address] Nov, [facility] [address] [id number] [place] [address] Nov, [facility] [address] [id number] [place] [address] Nov, [facility] [address] [id number] [place] [address] Nov, [facility] [address] [id number] [place] [address] Oct, [facility] [address] [id number] [place] [address] Oct, [facility] [address] [id number] [place] [address] Sep, [facility] [address] [id number] [place] [address] Aug, [facility] [address] [facility] [id number] [place] [address] Aug, [facility] [address] [facility] [id number] [place] [address] Aug, [facility] [address] [id number] [place] [address] Aug, [facility] [address] [facility] [id number] [place] [address] Aug, [facility] [address] [facility] [id number] [place] [address] Aug, [facility] [address] [id number] [place] [address] Aug, [facility] [address] [id number] [place] [address] Aug, [facility] [address] [id number] [place] [address] Aug, 2013 [facility] [address] [id number] [place] [address] Aug, [facility] [address] [id number] [place] [address] Aug, 2013 [facility] [address] [id number] [place] [address] Aug, 2013 [facility] [address] [id number] [place] [address] Aug, 2013 [facility] [address] [facility] [id number] [place] [address] Aug, 2013 [facility] [address] [facility] [id number] [place] [address] Jul, 2013 [facility] [address] [facility] [id number] [place] [address] Jul, 2013 [facility] [address] [id number] [place] [address] Jul, 2013 [facility] [address] [facility] [id number] [place] [address] Jul, [facility] [address] [id number] [facility] [place] [address] Jun, [facility] [address] [facility] [id number] [place] [address] Jun, [facility] [address] [id number] [place] [address] Jun, [facility] [address] [facility] [id number] [place] [address] Jun, [facility] [address] [id number] [place] [address] May, [facility] [address] [id number] [place] [address] May, [facility] [address] [id number] [place] [address] May, [facility] [address] [id number] [place] [address] May, [facility] [address] [facility] [id number] [place] [address] May, [facility] [address] [id number] [place] [address] May, [facility] [address] [id number] [place] [address] May, [facility] [address] [id number] [place] [address] May, [facility] [address] [id number] [place] [address] May, [facility] [address] [id number] [place] [address] May, [facility] [address] [id number] [place] [address] May, [facility] [address] [id number] [place] [address] May, [facility] [address] [facility] [id number] [place] [address] May, [facility] [address] [id number] [place] [address] Apr, [facility] [address] [id number] [place] [address] Apr, [facility] [place] [facility] [address] [id number] [place] [address] Apr, [facility] [place] [facility] [address] [facility] [id number] [place] [address] Apr, [facility] [place] [facility] [address] [id number] [place] [address] Apr, [facility] [place] [facility] [address] [id number] [place] [address] Apr, [facility] [place] [facility] [address] [id number] [place] [address] Apr, [facility] [place] [facility] [address] [id number] [place] [address] Apr, [facility] [place] [facility] [address] [id number] [place] [address] Apr, [facility] [place] [facility] [address] [id number] [place] [address] Apr, [facility] [place] [facility] [address] [id number] [place] [address] Apr, [facility] [place] [facility] [address] [id number] [place] [address] Apr, [facility] [place] [facility] [address] [id number] [place] [address] Apr, [facility] [place] [facility] [address] [id number] [place] [address] Apr, [facility] [place] [facility] [address] [id number] [place] [address] March, [facility] [place] [facility] [address] [id number] [place] [address] March, [facility] [place] [facility] [address] [id number] [place] [address] March, [facility] [place] [facility] [address] [facility] [id number] [place] [address] March, [facility] [place] [facility] [address] [id number] [place] [address] March, [facility] [place] [facility] [address] [id number] [place] [address] March, [facility] [place] [facility] [address] [facility] [id number] [place] [address] March, [facility] [place] [facility] [address] [id number] [place] [address] March, [facility] [place] [facility] [address] [id number] [place] [address] March, [facility] [place] [facility] [address] [id number] [place] [address] March, [facility] [place] [facility] [address] [id number] [place] [address] Feb, [facility] [place] [facility] [address] [id number] [place] [address] Feb, [facility] [place] [facility] [address] [id number] [place] [address] Feb, [facility] [place] [facility] [address] [id number] [place] [address] Feb, [facility] [place] [facility] [address] [id number] [place] [address] Feb, [facility] [place] [facility] [address] [id number] [place] [address] Feb, [facility] [place] [facility] [address] [id number] [place] [address] Feb, [facility] [place] [facility] [address] [id number] [place] [address] Feb, [facility] [place] [facility] [address] [id number] [place] [address] 18 Jan, 2014 [facility] [place] [facility] [address] [facility] [id number] [place] [address] Jan, [facility] [place] [facility] [address] [id number] [place] [address] Jan, [facility] [place] [facility] [address] [id number] [place] [address] Jan, [facility] [place] [facility] [address] [id number] [place] [address] Jan, [facility] [place] [facility] [address] [id number] [place] [address] Jan, [facility] [place] [facility] [address] [id number] [place] [address] Jan, [facility] [place] [facility] [address] [id number] [place] [address] Jan, [facility] [place] [facility] [address] [id number] [place] [address] Jan, [facility] [place] [facility] [address] [id number] [place] [address] Jan, [facility] [place] [facility] [address] [id number] [place] [address] Dec, [facility] [place] [facility] [address] [id number] [place] [address] Dec, [facility] [place] [facility] [address] [id number] [place] [address] Nov, [facility] [place] [facility] [address] [id number] [place] [address] Nov, [facility] [place] [facility] [address] [id number] [place] [address] Nov, [facility] [place] [facility] [address] [id number] [place] [address] Nov, [facility] [place] [facility] [address] [id number] [place] [address] Nov, [facility] [place] [facility] [address] [id number] [place] [address] Nov, [facility] [place] [facility] [address] [id number] [place] [address] Nov, [facility] [place] [facility] [address] [id number] [place] [address] Nov, [facility] [place] [facility] [address] [id number] [place] [address] Oct, [facility] [place] [facility] [address] [id number] [place] [address] Oct, [facility] [place] [facility] [address] [id number] [place] [address] Oct, [facility] [place] [facility] [address] [id number] [place] [address] Oct, [facility] [place] [facility] [address] [id number] [place] [address] Oct, [facility] [place] [facility] [address] [id number] [place] [address] Oct, [facility] [place] [facility] [address] [id number] [place] [address] Sep, [facility] [place] [facility] [address] [id number] [place] [address] Sep, [facility] [place] [facility] [address] [id number] [place] [address] Sep, [facility] [place] [facility] [address] [id number] [place] [address] Sep, [facility] [place] [facility] [address] [id number] [place] [address] Sep, [facility] [place] [facility] [address] [id number] [place] [address] Aug, [facility] [place] [facility] [address] [id number] [place] [address] Aug, [facility] [place] [facility] [address] [id number] [place] [address] Aug, [facility] [place] [facility] [address] [facility] [id number] [place] [address] Aug, [facility] [place] [facility] [address] [id number] [place] [address] Aug, [facility] [place] [facility] [address] [id number] [place] [address] Aug, [facility] [place] [facility] [address] [id number] [place] [address] Jul, [facility] [place] [facility] [address] [facility] [id number] [place] [address] Jul, [facility] [place] [facility] [address] [id number] [place] [address] Jul, [facility] [place] [facility] [address] [id number] [place] [address] Jun, [facility] [place] [facility] [address] [id number] [place] [address] Jun, [facility] [place] [facility] [address] [id number] [place] [address] May, [facility] [place] [facility] [address] [id number] [place] [address] May, [facility] [place] [facility] [address] [id number] [place] [address] Apr, [facility] [place] [facility] [address] [id number] [place] [address] Apr, [facility] [place] [facility] [address] [id number] [place] [address] Apr, [facility] [place] [facility] [address] [id number] [place] [address] March, [facility] [place] [facility] [address] [id number] [place] [address] Feb, [facility] [place] [facility] [address] [id number] [place] [address] Feb, [facility] [place] [facility] [address] [id number] [place] [address] 28 Jan, 2013 [facility] [address] [facility] [id number] [place] [address] 20 Jan, 2013 [facility] [place] [facility] [address] [id number] [place] [address] 13 Jan, 2013 [facility] [address] [id number] [place] [address] 08 Jan, 2013 [facility] [place] [facility] [address] [id number] [place] [address] 06 Jan, 2013 [facility] [place] [facility] [address] [facility] [id number] [place] [address] Dec, [facility] [place] [facility] [address] [id number] [place] [address] Dec, [facility] [address] [id number] [place] [address] Dec, [facility] [place] [facility] [address] [id number] [place] [address] Dec, [facility] [address] [id number] [place] [address] Dec, [facility] [address] [id number] [place] [address] Dec, [facility] [address] [place] [id number] Nov, [facility] [place] [facility] [address] [id number] [place] [address] Nov, [facility] [place] [facility] [address] [id number] [place] [address] Nov, [facility] [place] [facility] [address] [id number] [place] [address] Nov, [facility] [place] [facility] [address] [id number] [place] [address] Nov, [facility] [place] [facility] [address] [id number] [place] [address] Oct, [facility] [place] [facility] [address] [id number] [place] [address] Oct, [facility] [place] [facility] [address] [id number] [place] [address] Oct, [facility] [place] [facility] [address] [id number] [place] [address] Oct, [facility] [place] [facility] [address] [id number] [place] [address] Oct, [facility] [place] [facility] [address] [id number] [place] [address] Oct, [facility] [place] [facility] [address] [id number] [place] [address] Oct, [facility] [place] [facility] [address] [id number] [place] [address] Oct, [facility] [place] [facility] [address] [id number] [place] [address] Sep, [facility] [place] [facility] [address] [id number] [place] [address] Sep, [facility] [place] [facility] [address] [id number] [place] [address] Sep, [facility] [place] [facility] [address] [id number] [place] [address] Sep, [facility] [place] [facility] [address] [id number] [place] [address] Sep, [facility] [place] [facility] [address] [id number] [place] [address] 14 Sep, 2012 [facility] [place] [facility] [address] [id number] [place] [address] Sep, [facility] [place] [facility] [address] [id number] [place] [address] Sep, [facility] [place] [facility] [address] [id number] [place] [address] Sep, [facility] [place] [facility] [address] [id number] [place] [address] Sep, [facility] [address] [id number] [place] [address] Sep, [facility] [address] [id number] [place] [address] Sep, [facility] [address] [id number] [place] [address] Sep, [facility] [address] [id number] [place] [address] Sep, [facility] [address] [id number] [place] [address] Sep, [facility] [address] [id number] [place] [address] Sep, IMMUNIZATIONS No Known Immunizations SOCIAL HISTORY [...]
--- OUTSIDE RECORDS SUMMARY | 2020-04-17 21:29 | XMS REPORT ---
Author Author Curt PATIÑO Organization [facility] Address [address] [place] [address] Care Team Providers Care Lidar Analyst Name Role Phone BISMARK PATIÑO Unavailable PROBLEMS Type Condition ICD9-CM Code [id number] Code Onset Dates Condition S tatus SNOMED Code Problem Hypertension, essential I10 Active 44511448 Problem Gastroparesis K31.84 Active 854839 006 Problem Type 1 diabetes mellitus with other diab etic neurological complication E10.49 Active 45063544 Problem Controlled diabetes mellitus type 1 without complications E10.9 Active 76931179 Problem Mood disorder F39 Active 991753 05 Problem Other chronic pain G89.29 Active 8 9446068 Problem 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 Active 74444907 Problem Type 1 diabetes mellitus with hyperglycemia E10.65 Active [id number] Problem Type 1 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 Active 10399749 Problem Chronic fatigue R53.82 Active 8422 9001 ALLERGIES No Information ENCOUNTERS Encounter Location Date Diagnosis [facility] [address] [facility] [id number] [address] [place] [phone] Jul, Type 1 diabetes mellitus wit h other diabetic neurological complication E10.49 [facility] [address] [facility] [id number] [address] [place] [phone] Jul, Type 1 diabetes mellitus wit h hyperglycemia E10.65 [facility] [address] [facility] [id number] [address] [place] [phone] Jun, Type 1 diabetes mellitus wit h other diabetic neurological complication E10.49 [facility] [address] [facility] [id number] [address] [place] [phone] May, [facility] [address] [facility] [id number] [address] [place] [phone] May, [facility] [address] [facility] [id number] [address] [place] [phone] May, Other chronic pain G89.29 [facility] [address] [id number] [address] [place] [phone] May, [facility] [address] [id number] [address] [place] [phone] May, Type 1 diabetes mellitus wit h other diabetic neurological complication E10.49 [facility] [address] [id number] [address] [place] [phone] Apr, [facility] [address] [id number] [address] [place] [phone] Apr, Type 1 diabetes mellitus wit h other diabetic neurological complication E10.49 [facility] [address] [facility] [id number] [address] [place] [phone] Apr, Encounter for Medicare annua l wellness exam Z00.00 [place] [address] [facility] [id number] [address] [place] [phone] March, Encounter for Medicare annua l wellness exam Z00.00 and Type 1 diabetes mellitus with other diabetic neurological complication E10.49 [facility] [address] [facility] [id number] [address] [place] [phone] Feb, Type 1 diabetes mellitus wit h other diabetic neurological complication E10.49 [facility] [address] [facility] [id number] [address] [place] [phone] Feb, Encounter for Medicare annua l wellness exam Z00.00 ; Mood disorder F39 ; Type 1 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 ; Hypertension, essential I10 and Chronic fatigue R53.82 [facility] [address] [id number] [address] [place] [id number] Jan, Type 1 diabetes mellitus wit h other diabetic neurological complication E10.49 [facility] [address] [facility] [id number] [address] [place] [phone] Jan, [facility] [address] [facility] [id number] [address] [place] [phone] Jan, Other chronic pain G89.29 [facility] [address] [id number] [address] [place] [id number] 11 Dec, 2018 [facility] [address] [id number] [address] [place] [id number] 08 Dec, 2018 Type 1 diabetes mellitus wit h other diabetic neurological complication E10.49 [facility] [address] [id number] [address] [place] [phone] 05 Dec, 2018 Other chronic pain G89.29 [facility] [address] [id number] [address] [place] [phone] Nov, [facility] [address] [id number] [address] [place] [address] [id number] Nov, Caries K02.9 [facility] [address] [id number] [address] [place] [id number] Nov, Type 1 diabetes mellitus wit h other diabetic neurological complication E10.49 [facility] [address] [id number] [address] [place] [id number] 07 Nov, 2018 Controlled diabetes mellitus type 1 without complications E10.9 ; Other chronic pain G89.29 and Pain in left knee M25.562 [facility] [address] [id number] [address] [place] [address] [id number] Oct, Dental examination Z01.20 [facility] [address] [id number] [address] [place] [phone] 14 Oct, 2018 Cutaneous abscess of unspeci fied foot L02.619 and Cellulitis of unspecified part of limb L03.119 [facility] [address] [id number] [address] [place] [id number] 11 Oct, 2018 [facility] [address] [id number] [address] [place] [id number] 10 Oct, 2018 Type 1 diabetes mellitus wit h other diabetic neurological complication E10.49 [facility] [address] [id number] [address] [place] [address] [id number] 06 Oct, 2018 Dental examination Z01.20 an d Caries K02.9 [facility] [address] [facility] [id number] [address] [place] [id number] 04 Oct, 2018 Cutaneous abscess of left fo ot L02.612 and Cellulitis of left lower limb L03.116 [facility] [address] [facility] [id number] [address] [place] [id number] 04 Oct, 2018 Dental examination Z01.20 an d Pain, dental K08.89 [facility] [address] [facility] [id number] [address] [place] [id number] Sep, Left foot pain M79.672 and L eft anterior knee pain M25.562 [facility] [address] [facility] [id number] [address] [place] [phone] Sep, Type 1 diabetes mellitus wit h other diabetic neurological complication E10.49 [facility] [address] [facility] [id number] [address] [place] [phone] Sep, [facility] [address] [facility] [id number] [address] [place] [id number] 11 Aug, 2018 Type 1 diabetes mellitus wit h other diabetic neurological complication E10.49 [facility] [address] [facility] [id number] [address] [place] [id number] 10 Aug, 2018 Encounter for immunization Z 23 [facility] [address] [facility] [id number] [address] [place] [phone] 05 Aug, 2018 Type 1 diabetes mellitus wit h hyperglycemia E10.65 [facility] [address] [id number] [address] [place] [id number] Jul, Type 1 diabetes mellitus wit h hyperglycemia E10.65 [facility] [address] [facility] [id number] [address] [place] [id number] Jul, [facility] [address] [facility] [id number] [address] [place] [phone] Jul, [place] [address] [facility] [id number] [address] [place] [phone] Jul, Type 1 diabetes mellitus wit h other diabetic neurological complication E10.49 [facility] [address] [id number] [address] [place] [id number] Jul, Type 1 diabetes mellitus wit h other diabetic neurological complication E10.49 and Mood disorder F39 [facility] [address] [facility] [id number] [address] [place] [phone] Jun, [facility] [address] [facility] [id number] [address] [place] [id number] Jun, Type 1 diabetes mellitus wit h other diabetic neurological complication E10.49 and Chronic fatigue R53.82 [facility] [address] [facility] [id number] [address] [place] [phone] May, Type 1 diabetes mellitus wit h other diabetic neurological complication E10.49 [facility] [address] [facility] [id number] [address] [place] [id number] May, [facility] [address] [facility] [id number] [address] [place] [phone] May, [facility] [address] [facility] [id number] [address] [place] [phone] Apr, [facility] [address] [facility] [id number] [address] [place] [phone] Apr, Type 1 diabetes mellitus wit h other diabetic neurological complication E10.49 [facility] [address] [facility] [id number] [address] [place] [phone] March, [facility] [address] [facility] [id number] [address] [place] [id number] Feb, [facility] [address] [facility] [id number] [address] [place] [phone] Feb, Type 1 diabetes mellitus wit h other diabetic neurological complication E10.49 ; Tobacco abuse Z72.0 and Tobacco abuse counseling Z71.6 [facility] [address] [facility] [id number] [address] [place] [id number] Jan, Type 1 diabetes mellitus wit h hyperglycemia E10.65 [facility] [address] [facility] [id number] [address] [place] [phone] Jan, [facility] [address] [facility] [id number] [address] [place] [phone] Dec, Tobacco abuse Z72.0 [facility] [address] [facility] [id number] [address] [place] [id number] Dec, Type 1 diabetes mellitus wit h hyperglycemia E10.65 [facility] [address] [facility] [id number] [address] [place] [phone] Dec, Type 1 diabetes mellitus wit h hyperglycemia E10.65 ; Tobacco abuse Z72.0 and Tobacco abuse counseling Z71.6 [facility] [address] [facility] [id number] [address] [place] [phone] Nov, Type 1 diabetes mellitus wit h hyperglycemia E10.65 [facility] [address] [facility] [id number] [address] [place] [phone] Oct, Type 1 diabetes mellitus wit h hyperglycemia E10.65 [facility] [address] [facility] [id number] [address] [place] [id number] Oct, Type 1 diabetes mellitus wit h hyperglycemia E10.65 [facility] [address] [facility] [id number] [address] [place] [id number] Sep, Type 1 diabetes mellitus wit h hyperglycemia E10.65 [facility] [address] [facility] [id number] [address] [place] [id number] Aug, Type 1 diabetes mellitus wit h hyperglycemia E10.65 [facility] [address] [facility] [id number] [address] [place] [phone] Aug, [facility] [address] [facility] [id number] [address] [place] [id number] Aug, Type 1 diabetes mellitus wit h hyperglycemia E10.65 [facility] [address] [facility] [id number] [address] [place] [phone] Aug, Encounter for immunization Z 23 [facility] [address] [id number] [address] [place] [phone] Aug, Type 1 diabetes mellitus wit h hyperglycemia E10.65 [facility] [address] [id number] [address] [place] [id number] Jul, Type 1 diabetes mellitus wit h hyperglycemia E10.65 [facility] [address] [id number] [address] [place] [phone] Jul, Type 1 diabetes mellitus wit h hyperglycemia E10.65 [facility] [address] [id number] [address] [place] [id number] May, Type 1 diabetes mellitus wit h hyperglycemia E10.65 [facility] [address] [facility] [id number] [address] [place] [id number] May, [facility] [address] [facility] [id number] [address] [place] [phone] Apr, [facility] [address] [id number] [address] [place] [phone] Apr, Type 1 diabetes mellitus wit h hyperglycemia E10.65 [facility] [address] [facility] [id number] [address] [place] [phone] March, [facility] [address] [facility] [id number] [address] [place] [phone] March, [facility] [address] [facility] [id number] [address] [place] [phone] Jan, [facility] [address] [id number] [address] [place] [id number] Jan, [facility] [address] [facility] [id number] [address] [place] [phone] Jan, Type 1 diabetes mellitus wit h diabetic polyneuropathy E10.42 [facility] [address] [id number] [address] [place] [phone] Jan, Type 1 diabetes mellitus wit h hyperglycemia E10.65 ; Excessive cerumen in both ear canals H61.23 and Controlled diabetes mellitus type 1 without complications E10.9 [facility] [address] [id number] [address] [place] [phone] 16 Dec, 2016 [facility] [address] [id number] [address] [place] [phone] Dec, [facility] [address] [id number] [address] [place] [id number] Dec, [facility] [address] [id number] [address] [place] [phone] Dec, [facility] [address] [id number] [address] [place] [phone] Nov, [facility] [address] [facility] [id number] [address] [place] [phone] Nov, [facility] [address] [id number] [address] [place] [phone] Oct, Type 1 diabetes mellitus wit h hyperglycemia E10.65 [facility] [address] [id number] [address] [place] [phone] 17 Sep, 2016 [facility] [address] [id number] [address] [place] [phone] Sep, [facility] [address] [id number] [address] [place] [phone] Sep, Controlled diabetes mellitus type 1 without complications E10.9 [facility] [address] [id number] [address] [place] [id number] Sep, [facility] [address] [id number] [address] [place] [address] [id number] Aug, Dental caries K02.9 [facility] [address] [id number] [address] [place] [id number] 10 Aug, 2016 Type 1 diabetes mellitus wit h diabetic polyneuropathy E10.42 [facility] [address] [id number] [address] [place] [id number] Aug, [facility] [address] [id number] [address] [place] [phone] Aug, [facility] [address] [id number] [address] [place] [phone] Aug, [facility] [address] [id number] [address] [place] [id number] Jul, Type 1 diabetes mellitus wit h hyperglycemia E10.65 [facility] [address] [id number] [address] [place] [id number] Jul, Type 1 diabetes mellitus wit h hyperglycemia E10.65 ; Tooth pain K08.8 and Encounter for immunization Z23 [facility] [address] [id number] [address] [place] [address] [id number] 08 Jul, 2016 Dental examination Z01.20 [facility] [address] [id number] [address] [place] [phone] Jul, [facility] [address] [id number] [address] [place] [phone] Jul, [facility] [address] [id number] [address] [place] [phone] Jul, [facility] [address] [id number] [address] [place] [phone] Jun, [facility] [address] [id number] [address] [place] [phone] May, [facility] [address] [id number] [address] [place] [phone] Apr, [facility] [address] [id number] [address] [place] [phone] Apr, [facility] [address] [id number] [address] [place] [phone] Apr, [facility] [address] [id number] [address] [place] [phone] March, [facility] [address] [id number] [address] [place] [phone] March, [facility] [address] [id number] [address] [place] [phone] Feb, [facility] [address] [id number] [address] [place] [phone] Feb, [facility] [address] [id number] [address] [place] [id number] Feb, Type 1 diabetes mellitus wit h hyperglycemia E10.65 [facility] [address] [id number] [address] [place] [phone] Jan, [facility] [address] [id number] [address] [place] [id number] Jan, [facility] [address] [facility] [id number] [address] [place] [phone] Jan, [facility] [address] [id number] [address] [place] [phone] Jan, [facility] [address] [id number] [address] [place] [phone] Dec, [facility] [address] [facility] [id number] [address] [place] [phone] Nov, [facility] [address] [facility] [id number] [address] [place] [phone] Nov, [facility] [address] [facility] [id number] [address] [place] [phone] Oct, [facility] [address] [facility] [id number] [address] [place] [phone] Oct, Type 1 diabetes mellitus wit h 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 ; Type 1 diabetes mellitus with hyperglycemia E10.65 ; Gastroparesis K31.84 and Esophageal stricture K22.2 [facility] [address] [id number] [address] [place] [phone] Oct, [facility] [address] [id number] [address] [place] [id number] Sep, [facility] [address] [id number] [address] [place] [id number] Sep, Type 1 diabetes mellitus wit h other diabetic neurological complication E10.49 [facility] [address] [id number] [address] [place] [phone] Aug, Encounter for immunization Z 23 [facility] [address] [id number] [address] [place] [phone] Aug, [facility] [address] [id number] [address] [place] [phone] Aug, [facility] [address] [id number] [address] [place] [phone] Jul, [facility] [address] [id number] [address] [place] [phone] Jul, [facility] [address] [id number] [address] [place] [phone] Jun, [facility] [address] [id number] [address] [place] [phone] Jun, [facility] [address] [id number] [address] [place] [phone] Jun, [facility] [address] [id number] [address] [place] [phone] May, [facility] [address] [id number] [address] [place] [phone] May, [facility] [address] [id number] [address] [place] [phone] May, Diabetes type 1, controlled 250.01 [facility] [address] [id number] [address] [place] [phone] May, [facility] [address] [id number] [address] [place] [phone] May, [facility] [address] [id number] [address] [place] [address] [id number] Apr, Dental examination V72.2 [facility] [address] [id number] [address] [place] [phone] Apr, [facility] [address] [id number] [address] [place] [phone] Apr, [facility] [address] [id number] [address] [place] [phone] Apr, [facility] [address] [id number] [address] [place] [phone] Apr, [facility] [address] [id number] [address] [place] [phone] Apr, [facility] [address] [id number] [address] [place] [address] [id number] Apr, Dental examination V72.2 [facility] [address] [id number] [address] [place] [id number] Apr, [facility] [address] [id number] [address] [place] [phone] Apr, [facility] [address] [id number] [address] [place] [id number] March, Diabetes mellitus type 1 250 .01 [facility] [address] [id number] [address] [place] [id number] March, [facility] [address] [id number] [address] [place] [id number] 14 Feb, 2015 [facility] [address] [id number] [address] [place] [phone] Feb, [facility] [address] [id number] [address] [place] [phone] Jan, [facility] [address] [id number] [address] [place] [id number] Jan, [facility] [address] [id number] [address] [place] [address], [place] [id number] Jan, [facility] [address] [id number] [address] [place] [address], [place] [id number] Jan, [facility] [address] [id number] [address] [place] [address], [place] [address] Dec, [facility] [address] [id number] [address] [place] [address], [place] [address] Dec, [facility] [address] [id number] [address] [place] [address], [place] [address] Nov, [facility] [address] [id number] [address] [place] [address], [place] [address] Nov, [facility] [address] [id number] [address] [place] [address], [place] [address] Nov, [facility] [address] [id number] [address] [place] [address], [place] [address] Nov, [facility] [address] [id number] [address] [place] [address], [place] [address] Nov, [facility] [address] [id number] [address] [place] [address], [place] [address] Nov, [facility] [address] [id number] [address] [place] [address], [place] [address] Nov, [facility] [address] [id number] [address] [place] [address] Oct, [facility] [address] [id number] [address] [place] [address], [place] [address] Oct, [facility] [address] [id number] [address] [place] [address], [place] [address] Sep, [facility] [address] [id number] [address] [place] [address], [place] [address] Aug, [facility] [address] [id number] [address] [place] [address], [place] [address] Aug, [facility] [address] [id number] [address] [place] [address], [place] [address] Aug, [facility] [address] [id number] [address] [place] [address], [place] [address] Aug, [facility] [address] [id number] [address] [place] [address], [place] [address] Aug, [facility] [address] [id number] [address] [place] [address], [place] [address] Aug, [facility] [address] [id number] [address] [place] [address], [place] [address] Aug, [facility] [address] [id number] [address] [place] [address], [place] [address] Aug, [facility] [address] [id number] [address] [place] [address], [place] [address] Aug, [facility] [address] [id number] [address] [place] [address], [place] [address] Aug, [facility] [address] [id number] [address] [place] [address], [place] [address] Aug, [facility] [address] [id number] [address] [place] [address], [place] [address] Aug, [facility] [address] [id number] [address] [place] [address], [place] [address] Aug, 2013 [facility] [address] [id number] [address] [place] [address], [place] [address] Aug, 2013 [facility] [address] [id number] [address] [place] [address], [place] [address] Jul, 2013 [facility] [address] [id number] [address] [place] [address], [place] [address] Jul, 2013 [facility] [address] [id number] [address] [place] [address], [place] [address] Jul2013 [facility] [address] [id number] [facility] [place] [address] Jul, [facility] [address] [id number] [facility] [place] [address] Jun, [facility] [address] [id number] [facility] [place] [address] Jun, [facility] [address] [id number] [address] [place] [address], [place] [address] Jun, [facility] [address] [id number] [address] [place] [address], [place] [address] Jun, [facility] [address] [id number] [address] [place] [address], [place] [address] May, [facility] [address] [id number] [address] [place] [address], [place] [address] May, [facility] [address] [id number] [address] [place] [address], [place] [address] May, [facility] [address] [id number] [address] [place] [address], [place] [address] May, [facility] [address] [id number] [address] [place] [address], [place] [address] May, [facility] [address] [id number] [address] [place] [address], [place] [address] May, [facility] [address] [id number] [address] [place] [address], [place] [address] May, [facility] [address] [id number] [address] [place] [address], [place] [address] May, [facility] [address] [id number] [address] [place] [address], [place] [address] May, [facility] [address] [id number] [address] [place] [address], [place] [address] May, [facility] [address] [id number] [address] [place] [address], [place] [address] May, [facility] [address] [id number] [facility] [place] [address] May, [facility] [address] [id number] [address] [place] [address], [place] [address] May, [facility] [address] [id number] [facility] [place] [address] Apr, [facility] [address] [id number] [address] [place] [address], [place] [address] Apr, [facility] [address] [id number] [address] [place] [address], [place] [address] Apr, [facility] [address] [id number] [address] [place] [address], [place] [address] Apr, [facility] [address] [id number] [address] [place] [address], [place] [address] Apr, [facility] [address] [id number] [address] [place] [address], [place] [address] Apr, [facility] [address] [id number] [address] [place] [address], [place] [address] Apr, [facility] [address] [id number] [address] [place] [address], [place] [address] Apr, [facility] [address] [id number] [address] [place] [address], [place] [address] Apr, [facility] [address] [id number] [address] [place] [address], [place] [address] Apr, [facility] [address] [id number] [address] [place] [address], [place] [address] Apr, [facility] [address] [id number] [address] [place] [address], [place] [address] Apr, [facility] [address] [id number] [address] [place] [address], [place] [address] Apr, [facility] [address] [id number] [address] [place] [address], [place] [address] Apr, [facility] [address] [id number] [address] [place] [address], [place] [address] March, [facility] [address] [id number] [address] [place] [address], [place] [address] March, [facility] [address] [id number] [address] [place] [address], [place] [address] March, [facility] [address] [id number] [address] [place] [address], [place] [address] March, [facility] [address] [id number] [address] [place] [address], [place] [address] March, [facility] [address] [id number] [address] [place] [address], [place] [address] March, [facility] [address] [id number] [address] [place] [address], [place] [address] March, [facility] [address] [id number] [address] [place] [address], [place] [address] March, [facility] [address] [id number] [address] [place] [address], [place] [address] March, [facility] [address] [id number] [address] [place] [address], [place] [address] March, [facility] [address] [id number] [address] [place] [address], [place] [address] Feb, [facility] [address] [id number] [address] [place] [address], [place] [address] Feb, [facility] [address] [id number] [address] [place] [address], [place] [address] Feb, [facility] [address] [id number] [address] [place] [address], [place] [address] Feb, [facility] [address] [id number] [address] [place] [address], [place] [address] Feb, [facility] [address] [id number] [address] [place] [address], [place] [address] Feb, [facility] [address] [id number] [address] [place] [address], [place] [address] Feb, [facility] [address] [id number] [address] [place] [address], [place] [address] Feb, [facility] [address] [id number] [address] [place] [address], [place] [address] Jan, [facility] [address] [id number] [address] [place] [address], [place] [address] Jan, [facility] [address] [id number] [address] [place] [address], [place] [address] Jan, [facility] [address] [id number] [address] [place] [address], [place] [address] Jan, [facility] [address] [id number] [address] [place] [address], [place] [address] Jan, [facility] [address] [id number] [address] [place] [address], [place] [address] Jan, [facility] [address] [id number] [address] [place] [address], [place] [address] Jan, [facility] [address] [id number] [address] [place] [address], [place] [address] Jan, [facility] [address] [id number] [address] [place] [address], [place] [address] Jan, [facility] [address] [id number] [address] [place] [address], [place] [address] Jan, [facility] [address] [id number] [address] [place] [address], [place] [address] Dec, [facility] [address] [id number] [address] [place] [address], [place] [address] Dec, [facility] [address] [id number] [address] [place] [address], [place] [address] Nov, [facility] [address] [id number] [address] [place] [address], [place] [address] Nov, [facility] [address] [id number] [address] [place] [address], [place] [address] Nov, [facility] [address] [id number] [address] [place] [address], [place] [address] Nov, [facility] [address] [id number] [address] [place] [address], [place] [address] Nov, [facility] [address] [id number] [address] [place] [address], [place] [address] Nov, [facility] [address] [id number] [address] [place] [address], [place] [address] Nov, [facility] [address] [id number] [address] [place] [address], [place] [address] Nov, [facility] [address] [id number] [address] [place] [address], [place] [address] Oct, [facility] [address] [id number] [address] [place] [address], [place] [address] Oct, [facility] [address] [id number] [address] [place] [address], [place] [address] Oct, [facility] [address] [id number] [address] [place] [address], [place] [address] Oct, [facility] [address] [id number] [address] [place] [address], [place] [address] Oct, [facility] [address] [id number] [address] [place] [address], [place] [address] Oct, [facility] [address] [id number] [address] [place] [address], [place] [address] Sep, [facility] [address] [id number] [address] [place] [address], [place] [address] Sep, [facility] [address] [id number] [address] [place] [address], [place] [address] Sep, [facility] [address] [id number] [address] [place] [address], [place] [address] Sep, [facility] [address] [id number] [address] [place] [address], [place] [address] Sep, [facility] [address] [id number] [address] [place] [address], [place] [address] Aug, [facility] [address] [id number] [address] [place] [address], [place] [address] Aug, [facility] [address] [id number] [address] [place] [address], [place] [address] Aug, [facility] [address] [id number] [address] [place] [address], [place] [address] Aug, [facility] [address] [id number] [address] [place] [address], [place] [address] Aug, [facility] [address] [id number] [address] [place] [address], [place] [address] Aug, [facility] [address] [id number] [address] [place] [address], [place] [address] Jul, [facility] [address] [id number] [address] [place] [address], [place] [address] Jul, [facility] [address] [id number] [address] [place] [address], [place] [address] Jul, [facility] [address] [id number] [address] [place] [address], [place] [address] Jun, [facility] [address] [id number] [address] [place] [address], [place] [address] Jun, [facility] [address] [id number] [address] [place] [address], [place] [address] May, [facility] [address] [id number] [address] [place] [address], [place] [address] May, [facility] [address] [id number] [address] [place] [address], [place] [address] Apr, [facility] [address] [id number] [address] [place] [address], [place] [address] Apr, [facility] [address] [id number] [address] [place] [address], [place] [address] Apr, [facility] [address] [id number] [address] [place] [address], [place] [address] March, [facility] [address] [id number] [address] [place] [address], [place] [address] Feb, [facility] [address] [id number] [address] [place] [address], [place] [address] Feb, [facility] [address] [id number] [address] [place] [address], [place] [address] Jan, [facility] [address] [id number] [address] [place] [address], [place] [address] Jan, [facility] [address] [id number] [address] [place] [address], [place] [address] Jan, [facility] [address] [id number] [address] [place] [address], [place] [address] Jan, [facility] [address] [id number] [address] [place] [address], [place] [address] Jan, [facility] [address] [id number] [address] [place] [address], [place] [address] Dec, [facility] [address] [id number] [address] [place] [address], [place] [address] Dec, [facility] [address] [id number] [address] [place] [address], [place] [address] 18 Dec, 2012 [facility] [address] [id number] [address] [place] [address], [place] [address] Dec, [facility] [address] [id number] [address] [place] [address], [place] [address] Dec, [facility] [address] [id number] [address] [place] [address], [place] [address] Dec, [facility] [address] [place] [id number] Nov, [facility] [address] [id number] [address] [place] [address], [place] [address] Nov, [facility] [address] [id number] [address] [place] [address], [place] [address] Nov, [facility] [address] [id number] [address] [place] [address], [place] [address] Nov, [facility] [address] [id number] [address] [place] [address], [place] [address] Nov, [facility] [address] [id number] [address] [place] [address], [place] [address] Oct, [facility] [address] [id number] [address] [place] [address], [place] [address] Oct, [facility] [address] [id number] [address] [place] [address], [place] [address] Oct, [facility] [address] [id number] [address] [place] [address], [place] [address] Oct, [facility] [address] [id number] [address] [place] [address], [place] [address] Oct, [facility] [address] [id number] [address] [place] [address], [place] [address] Oct, [facility] [address] [id number] [address] [place] [address], [place] [address] Oct, [facility] [address] [id number] [address] [place] [address], [place] [address] Oct, [facility] [address] [id number] [address] [place] [address], [place] [address] Sep, [facility] [address] [id number] [address] [place] [address] Sep, [facility] [address] [id number] [address] [place] [address] Sep, [facility] [address] [id number] [address] [place] [address] Sep, [facility] [address] [id number] [address] [place] [address] Sep, [facility] [address] [id number] [address] [place] [id number] Sep, [facility] [address] [id number] [address] [place] [id number] Sep, [facility] [address] [id number] [address] [place] [id number] Sep, [facility] [address] [id number] [address] [place] [address] Sep, [facility] [address] [id number] [address] [place] [address] Sep, [facility] [address] [id number] [address] [place] [address] Sep, [facility] [address] [id number] [address] [place] [id number] Sep, [facility] [address] [id number] [address] [place] [id number] Sep, [facility] [address] [id number] [address] [place] [id number] Sep, [facility] [address] [id number] [address] [place] [address] Sep, [facility] [address] [id number] [address] [place] [id number] Sep, IMMUNIZATIONS No Known Immunizations SOCIAL HISTORY [...]
--- OUTSIDE RECORDS SUMMARY | 2020-04-17 21:30 | XMS REPORT ---
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 Name Role Phone BISMARK PATIÑO Unavailable PROBLEMS Type Condition ICD9-CM Code YLT00-UI Code Onset Dates Condition S tatus SNOMED Code Problem Hypertension, essential I10 Active 55329846 Problem Gastroparesis K31.84 Active 738036 006 Problem Type 1 diabetes mellitus with other diab etic neurological complication E10.49 Active 07027667 Problem Controlled diabetes mellitus type 1 without complications E10.9 Active 63791823 Problem Mood disorder F39 Active 356548 05 Problem Other chronic pain G89.29 Active 8 5972792 Problem 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 Active 73052835 Problem Type 1 diabetes mellitus with hyperglycemia E10.65 Active [id number] Problem Type 1 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 Active 50340998 Problem Chronic fatigue R53.82 Active 8422 9001 ALLERGIES No Information ENCOUNTERS Encounter Location Date Diagnosis [facility] [address] [facility] [id number] [address] [place] [id number] Jul, Type 1 diabetes mellitus wit h other diabetic neurological complication E10.49 [facility] [address] [facility] [id number] [address] [place] [phone] Jul, Type 1 diabetes mellitus wit h hyperglycemia E10.65 [facility] [address] [facility] [id number] [address] [place] [phone] Jun, Type 1 diabetes mellitus wit h other diabetic neurological complication E10.49 [facility] [address] [facility] [id number] [address] [place] [phone] May, [facility] [address] [facility] [id number] [address] [place] [phone] May, [facility] [address] [facility] [id number] [address] [place] [id number] May, Other chronic pain G89.29 [facility] [address] [id number] [address] [place] [id number] May, [facility] [address] [id number] [address] [place] [phone] May, Type 1 diabetes mellitus wit h other diabetic neurological complication E10.49 [facility] [address] [id number] [address] [place] [phone] Apr, [facility] [address] [id number] [address] [place] [phone] Apr, Type 1 diabetes mellitus wit h other diabetic neurological complication E10.49 [facility] [address] [facility] [id number] [address] [place] [phone] Apr, Encounter for Medicare annua l wellness exam Z00.00 [place] [address] [facility] [id number] [address] [place] [phone] March, Encounter for Medicare annua l wellness exam Z00.00 and Type 1 diabetes mellitus with other diabetic neurological complication E10.49 [facility] [address] [facility] [id number] [address] [place] [phone] Feb, Type 1 diabetes mellitus wit h other diabetic neurological complication E10.49 [facility] [address] [facility] [id number] [address] [place] [phone] Feb, Encounter for Medicare annua l wellness exam Z00.00 ; Mood disorder F39 ; Type 1 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 ; Hypertension, essential I10 and Chronic fatigue R53.82 [facility] [address] [id number] [address] [place] [id number] Jan, Type 1 diabetes mellitus wit h other diabetic neurological complication E10.49 [facility] [address] [facility] [id number] [address] [place] [phone] Jan, [facility] [address] [facility] [id number] [address] [place] [phone] Jan, Other chronic pain G89.29 [facility] [address] [id number] [address] [place] [id number] 11 Dec, 2018 [facility] [address] [id number] [address] [place] [id number] 08 Dec, 2018 Type 1 diabetes mellitus wit h other diabetic neurological complication E10.49 [facility] [address] [id number] [address] [place] [phone] 05 Dec, 2018 Other chronic pain G89.29 [facility] [address] [id number] [address] [place] [id number] Nov, [facility] [address] [id number] [address] [place] [address] [id number] Nov, Caries K02.9 [facility] [address] [id number] [address] [place] [id number] Nov, Type 1 diabetes mellitus wit h other diabetic neurological complication E10.49 [facility] [address] [id number] [address] [place] [id number] 07 Nov, 2018 Controlled diabetes mellitus type 1 without complications E10.9 ; Other chronic pain G89.29 and Pain in left knee M25.562 [facility] [address] [id number] [address] [place] [address] [id number] Oct, Dental examination Z01.20 [facility] [address] [id number] [address] [place] [id number] 14 Oct, 2018 Cutaneous abscess of unspeci fied foot L02.619 and Cellulitis of unspecified part of limb L03.119 [facility] [address] [id number] [address] [place] [id number] 11 Oct, 2018 [facility] [address] [id number] [address] [place] [phone] 10 Oct, 2018 Type 1 diabetes mellitus wit h other diabetic neurological complication E10.49 [facility] [address] [id number] [address] [place] [address] [id number] 06 Oct, 2018 Dental examination Z01.20 an d Caries K02.9 [facility] [address] [facility] [id number] [address] [place] [id number] 04 Oct, 2018 Cutaneous abscess of left fo ot L02.612 and Cellulitis of left lower limb L03.116 [facility] [address] [facility] [id number] [address] [place] [phone] 04 Oct, 2018 Dental examination Z01.20 an d Pain, dental K08.89 [facility] [address] [facility] [id number] [address] [place] [id number] Sep, Left foot pain M79.672 and L eft anterior knee pain M25.562 [facility] [address] [facility] [id number] [address] [place] [id number] Sep, Type 1 diabetes mellitus wit h other diabetic neurological complication E10.49 [facility] [address] [facility] [id number] [address] [place] [phone] Sep, [facility] [address] [facility] [id number] [address] [place] [id number] 11 Aug, 2018 Type 1 diabetes mellitus wit h other diabetic neurological complication E10.49 [facility] [address] [facility] [id number] [address] [place] [phone] 10 Aug, 2018 Encounter for immunization Z 23 [facility] [address] [facility] [id number] [address] [place] [phone] 05 Aug, 2018 Type 1 diabetes mellitus wit h hyperglycemia E10.65 [facility] [address] [id number] [address] [place] [id number] Jul, Type 1 diabetes mellitus wit h hyperglycemia E10.65 [facility] [address] [facility] [id number] [address] [place] [phone] Jul, [facility] [address] [facility] [id number] [address] [place] [id number] Jul, [place] [address] [facility] [id number] [address] [place] [phone] Jul, Type 1 diabetes mellitus wit h other diabetic neurological complication E10.49 [facility] [address] [id number] [address] [place] [id number] Jul, Type 1 diabetes mellitus wit h other diabetic neurological complication E10.49 and Mood disorder F39 [facility] [address] [facility] [id number] [address] [place] [phone] Jun, [facility] [address] [facility] [id number] [address] [place] [id number] Jun, Type 1 diabetes mellitus wit h other diabetic neurological complication E10.49 and Chronic fatigue R53.82 [facility] [address] [facility] [id number] [address] [place] [id number] May, Type 1 diabetes mellitus wit h other diabetic neurological complication E10.49 [facility] [address] [facility] [id number] [address] [place] [phone] May, [facility] [address] [facility] [id number] [address] [place] [phone] May, [facility] [address] [facility] [id number] [address] [place] [id number] Apr, [facility] [address] [facility] [id number] [address] [place] [id number] Apr, Type 1 diabetes mellitus wit h other diabetic neurological complication E10.49 [facility] [address] [facility] [id number] [address] [place] [id number] March, [facility] [address] [facility] [id number] [address] [place] [phone] Feb, [facility] [address] [facility] [id number] [address] [place] [id number] Feb, Type 1 diabetes mellitus wit h other diabetic neurological complication E10.49 ; Tobacco abuse Z72.0 and Tobacco abuse counseling Z71.6 [facility] [address] [facility] [id number] [address] [place] [phone] Jan, Type 1 diabetes mellitus wit h hyperglycemia E10.65 [facility] [address] [facility] [id number] [address] [place] [phone] Jan, [facility] [address] [facility] [id number] [address] [place] [id number] Dec, Tobacco abuse Z72.0 [facility] [address] [facility] [id number] [address] [place] [id number] Dec, Type 1 diabetes mellitus wit h hyperglycemia E10.65 [facility] [address] [facility] [id number] [address] [place] [id number] Dec, Type 1 diabetes mellitus wit h hyperglycemia E10.65 ; Tobacco abuse Z72.0 and Tobacco abuse counseling Z71.6 [facility] [address] [facility] [id number] [address] [place] [phone] Nov, Type 1 diabetes mellitus wit h hyperglycemia E10.65 [facility] [address] [facility] [id number] [address] [place] [phone] Oct, Type 1 diabetes mellitus wit h hyperglycemia E10.65 [facility] [address] [facility] [id number] [address] [place] [id number] Oct, Type 1 diabetes mellitus wit h hyperglycemia E10.65 [facility] [address] [facility] [id number] [address] [place] [phone] Sep, Type 1 diabetes mellitus wit h hyperglycemia E10.65 [facility] [address] [facility] [id number] [address] [place] [id number] Aug, Type 1 diabetes mellitus wit h hyperglycemia E10.65 [facility] [address] [facility] [id number] [address] [place] [id number] Aug, [facility] [address] [facility] [id number] [address] [place] [phone] Aug, Type 1 diabetes mellitus wit h hyperglycemia E10.65 [facility] [address] [facility] [id number] [address] [place] [id number] Aug, Encounter for immunization Z 23 [facility] [address] [id number] [address] [place] [phone] Aug, Type 1 diabetes mellitus wit h hyperglycemia E10.65 [facility] [address] [id number] [address] [place] [id number] Jul, Type 1 diabetes mellitus wit h hyperglycemia E10.65 [facility] [address] [id number] [address] [place] [id number] Jul, Type 1 diabetes mellitus wit h hyperglycemia E10.65 [facility] [address] [id number] [address] [place] [id number] May, Type 1 diabetes mellitus wit h hyperglycemia E10.65 [facility] [address] [facility] [id number] [address] [place] [phone] May, [facility] [address] [facility] [id number] [address] [place] [phone] Apr, [facility] [address] [id number] [address] [place] [phone] Apr, Type 1 diabetes mellitus wit h hyperglycemia E10.65 [facility] [address] [facility] [id number] [address] [place] [phone] March, [facility] [address] [facility] [id number] [address] [place] [phone] March, [facility] [address] [facility] [id number] [address] [place] [phone] Jan, [facility] [address] [id number] [address] [place] [phone] Jan, [facility] [address] [facility] [id number] [address] [place] [id number] Jan, Type 1 diabetes mellitus wit h diabetic polyneuropathy E10.42 [facility] [address] [id number] [address] [place] [phone] Jan, Type 1 diabetes mellitus wit h hyperglycemia E10.65 ; Excessive cerumen in both ear canals H61.23 and Controlled diabetes mellitus type 1 without complications E10.9 [facility] [address] [id number] [address] [place] [id number] 16 Dec, 2016 [facility] [address] [id number] [address] [place] [phone] Dec, [facility] [address] [id number] [address] [place] [phone] Dec, [facility] [address] [id number] [address] [place] [phone] Dec, [facility] [address] [id number] [address] [place] [phone] Nov, [facility] [address] [facility] [id number] [address] [place] [id number] Nov, [facility] [address] [id number] [address] [place] [id number] Oct, Type 1 diabetes mellitus wit h hyperglycemia E10.65 [facility] [address] [id number] [address] [place] [id number] 17 Sep, 2016 [facility] [address] [id number] [address] [place] [phone] Sep, [facility] [address] [id number] [address] [place] [id number] Sep, Controlled diabetes mellitus type 1 without complications E10.9 [facility] [address] [id number] [address] [place] [phone] Sep, [facility] [address] [id number] [address] [place] [address] [id number] Aug, Dental caries K02.9 [facility] [address] [id number] [address] [place] [id number] 10 Aug, 2016 Type 1 diabetes mellitus wit h diabetic polyneuropathy E10.42 [facility] [address] [id number] [address] [place] [id number] Aug, [facility] [address] [id number] [address] [place] [phone] Aug, [facility] [address] [id number] [address] [place] [id number] Aug, [facility] [address] [id number] [address] [place] [id number] Jul, Type 1 diabetes mellitus wit h hyperglycemia E10.65 [facility] [address] [id number] [address] [place] [id number] Jul, Type 1 diabetes mellitus wit h hyperglycemia E10.65 ; Tooth pain K08.8 and Encounter for immunization Z23 [facility] [address] [id number] [address] [place] [address] [id number] 08 Jul, 2016 Dental examination Z01.20 [facility] [address] [id number] [address] [place] [id number] Jul, [facility] [address] [id number] [address] [place] [id number] Jul, [facility] [address] [id number] [address] [place] [phone] Jul, [facility] [address] [id number] [address] [place] [phone] Jun, [facility] [address] [id number] [address] [place] [phone] May, [facility] [address] [id number] [address] [place] [phone] Apr, [facility] [address] [id number] [address] [place] [id number] Apr, [facility] [address] [id number] [address] [place] [phone] Apr, [facility] [address] [id number] [address] [place] [phone] March, [facility] [address] [id number] [address] [place] [phone] March, [facility] [address] [id number] [address] [place] [phone] Feb, [facility] [address] [id number] [address] [place] [phone] Feb, [facility] [address] [id number] [address] [place] [id number] Feb, Type 1 diabetes mellitus wit h hyperglycemia E10.65 [facility] [address] [id number] [address] [place] [phone] Jan, [facility] [address] [id number] [address] [place] [phone] Jan, [facility] [address] [facility] [id number] [address] [place] [phone] Jan, [facility] [address] [id number] [address] [place] [id number] Jan, [facility] [address] [id number] [address] [place] [id number] Dec, [facility] [address] [facility] [id number] [address] [place] [phone] Nov, [facility] [address] [facility] [id number] [address] [place] [phone] Nov, [facility] [address] [facility] [id number] [address] [place] [phone] Oct, [facility] [address] [facility] [id number] [address] [place] [id number] Oct, Type 1 diabetes mellitus wit h 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 ; Type 1 diabetes mellitus with hyperglycemia E10.65 ; Gastroparesis K31.84 and Esophageal stricture K22.2 [facility] [address] [id number] [address] [place] [phone] Oct, [facility] [address] [id number] [address] [place] [phone] Sep, [facility] [address] [id number] [address] [place] [id number] Sep, Type 1 diabetes mellitus wit h other diabetic neurological complication E10.49 [facility] [address] [id number] [address] [place] [phone] Aug, Encounter for immunization Z 23 [facility] [address] [id number] [address] [place] [id number] Aug, [facility] [address] [id number] [address] [place] [phone] Aug, [facility] [address] [id number] [address] [place] [phone] Jul, [facility] [address] [id number] [address] [place] [phone] Jul, [facility] [address] [id number] [address] [place] [phone] Jun, [facility] [address] [id number] [address] [place] [id number] Jun, [facility] [address] [id number] [address] [place] [phone] Jun, [facility] [address] [id number] [address] [place] [phone] May, [facility] [address] [id number] [address] [place] [id number] May, [facility] [address] [id number] [address] [place] [id number] May, Diabetes type 1, controlled 250.01 [facility] [address] [id number] [address] [place] [id number] May, [facility] [address] [id number] [address] [place] [phone] May, [facility] [address] [id number] [address] [place] [id number] Apr, Dental examination V72.2 [facility] [address] [id number] [address] [place] [phone] Apr, [facility] [address] [id number] [address] [place] [phone] Apr, [facility] [address] [id number] [address] [place] [phone] Apr, [facility] [address] [id number] [address] [place] [phone] Apr, [facility] [address] [id number] [address] [place] [phone] Apr, [facility] [address] [id number] [address] [place] [id number] Apr, Dental examination V72.2 [facility] [address] [id number] [address] [place] [phone] Apr, [facility] [address] [id number] [address] [place] [phone] Apr, [facility] [address] [id number] [address] [place] [phone] March, Diabetes mellitus type 1 250 .01 [facility] [address] [id number] [address] [place] [phone] March, [facility] [address] [id number] [address] [place] [phone] 14 Feb, 2015 [facility] [address] [id number] [address] [place] [phone] Feb, [facility] [address] [id number] [address] [place] [phone] Jan, [facility] [address] [id number] [address] [place] [phone] Jan, [facility] [address] [id number] [address] [place] [address] [place] [address] Jan, [facility] [address] [id number] [address] [place] [address], [place] [address] Jan, [facility] [address] [id number] [address] [place] [address], [place] [address] Dec, [facility] [address] [id number] [address] [place] [address], [place] [address] Dec, [facility] [address] [id number] [address] [place] [address], [place] [address] Nov, [facility] [address] [id number] [address] [place] [address], [place] [address] Nov, [facility] [address] [id number] [address] [place] [address], [place] [address] Nov, [facility] [address] [id number] [address] [place] [address], [place] [address] Nov, [facility] [address] [id number] [address] [place] [address], [place] [address] Nov, [facility] [address] [id number] [address] [place] [address], [place] [address] Nov, [facility] [address] [id number] [address] [place] [address], [place] [address] Nov, [facility] [address] [id number] [address] [place] [address] Oct, [facility] [address] [id number] [address] [place] [address], [place] [address] Oct, [facility] [address] [id number] [address] [place] [address], [place] [address] Sep, [facility] [address] [id number] [address] [place] [address], [place] [address] Aug, [facility] [address] [id number] [address] [place] [address], [place] [address] Aug, [facility] [address] [id number] [address] [place] [address], [place] [address] Aug, [facility] [address] [id number] [address] [place] [address], [place] [address] Aug, [facility] [address] [id number] [address] [place] [address], [place] [address] Aug, [facility] [address] [id number] [address] [place] [address], [place] [address] Aug, [facility] [address] [id number] [address] [place] [address], [place] [address] Aug, [facility] [address] [id number] [address] [place] [address], [place] [address] Aug, [facility] [address] [id number] [address] [place] [address], [place] [address] Aug, [facility] [address] [id number] [address] [place] [address], [place] [address] Aug, [facility] [address] [id number] [address] [place] [address], [place] [address] Aug, [facility] [address] [id number] [address] [place] [address], [place] [address] Aug, [facility] [address] [id number] [address] [place] [address], [place] [address] Aug, 2013 [facility] [address] [id number] [address] [place] [address], [place] [address] Aug, 2013 [facility] [address] [id number] [address] [place] [address], [place] [address] Jul, 2013 [facility] [address] [id number] [address] [place] [address], [place] [address] Jul, 2013 [facility] [address] [id number] [address] [place] [address], [place] [address] Jul2013 [facility] [address] [id number] [facility] [place] [address] Jul, [facility] [address] [id number] [facility] [place] [address] Jun, [facility] [address] [id number] [facility] [place] [address] Jun, [facility] [address] [id number] [address] [place] [address], [place] [address] Jun, [facility] [address] [id number] [address] [place] [address], [place] [address] Jun, [facility] [address] [id number] [address] [place] [address], [place] [address] May, [facility] [address] [id number] [address] [place] [address], [place] [address] May, [facility] [address] [id number] [address] [place] [address], [place] [address] May, [facility] [address] [id number] [address] [place] [address], [place] [address] May, [facility] [address] [id number] [address] [place] [address], [place] [address] May, [facility] [address] [id number] [address] [place] [address], [place] [address] May, [facility] [address] [id number] [address] [place] [address], [place] [address] May, [facility] [address] [id number] [address] [place] [address], [place] [address] May, [facility] [address] [id number] [address] [place] [address], [place] [address] May, [facility] [address] [id number] [address] [place] [address], [place] [address] May, [facility] [address] [id number] [address] [place] [address], [place] [address] May, [facility] [address] [id number] [facility] [place] [address] May, [facility] [address] [id number] [address] [place] [address], [place] [address] May, [facility] [address] [id number] [facility] [place] [address] Apr, [facility] [address] [id number] [address] [place] [address], [place] [address] Apr, [facility] [address] [id number] [address] [place] [address], [place] [address] Apr, [facility] [address] [id number] [address] [place] [address], [place] [address] Apr, [facility] [address] [id number] [address] [place] [address], [place] [address] Apr, [facility] [address] [id number] [address] [place] [address], [place] [address] Apr, [facility] [address] [id number] [address] [place] [address], [place] [address] Apr, [facility] [address] [id number] [address] [place] [address], [place] [address] Apr, [facility] [address] [id number] [address] [place] [address], [place] [address] Apr, [facility] [address] [id number] [address] [place] [address], [place] [address] Apr, [facility] [address] [id number] [address] [place] [address], [place] [address] Apr, [facility] [address] [id number] [address] [place] [address], [place] [address] Apr, [facility] [address] [id number] [address] [place] [address], [place] [address] Apr, [facility] [address] [id number] [address] [place] [address], [place] [address] Apr, [facility] [address] [id number] [address] [place] [address], [place] [address] March, [facility] [address] [id number] [address] [place] [address], [place] [address] March, [facility] [address] [id number] [address] [place] [address], [place] [address] March, [facility] [address] [id number] [address] [place] [address], [place] [address] March, [facility] [address] [id number] [address] [place] [address], [place] [address] March, [facility] [address] [id number] [address] [place] [address], [place] [address] March, [facility] [address] [id number] [address] [place] [address], [place] [address] March, [facility] [address] [id number] [address] [place] [address], [place] [address] March, [facility] [address] [id number] [address] [place] [address], [place] [address] March, [facility] [address] [id number] [address] [place] [address], [place] [address] March, [facility] [address] [id number] [address] [place] [address], [place] [address] Feb, [facility] [address] [id number] [address] [place] [address], [place] [address] Feb, [facility] [address] [id number] [address] [place] [address], [place] [address] Feb, [facility] [address] [id number] [address] [place] [address], [place] [address] Feb, [facility] [address] [id number] [address] [place] [address], [place] [address] Feb, [facility] [address] [id number] [address] [place] [address], [place] [address] Feb, [facility] [address] [id number] [address] [place] [address], [place] [address] Feb, [facility] [address] [id number] [address] [place] [address], [place] [address] Feb, [facility] [address] [id number] [address] [place] [address], [place] [address] Jan, [facility] [address] [id number] [address] [place] [address], [place] [address] Jan, [facility] [address] [id number] [address] [place] [address], [place] [address] Jan, [facility] [address] [id number] [address] [place] [address], [place] [address] Jan, [facility] [address] [id number] [address] [place] [address], [place] [address] Jan, [facility] [address] [id number] [address] [place] [address], [place] [address] Jan, [facility] [address] [id number] [address] [place] [address], [place] [address] Jan, [facility] [address] [id number] [address] [place] [address], [place] [address] Jan, [facility] [address] [id number] [address] [place] [address], [place] [address] Jan, [facility] [address] [id number] [address] [place] [address], [place] [address] Jan, [facility] [address] [id number] [address] [place] [address], [place] [address] Dec, [facility] [address] [id number] [address] [place] [address], [place] [address] Dec, [facility] [address] [id number] [address] [place] [address], [place] [address] Nov, [facility] [address] [id number] [address] [place] [address], [place] [address] Nov, [facility] [address] [id number] [address] [place] [address], [place] [address] Nov, [facility] [address] [id number] [address] [place] [address], [place] [address] Nov, [facility] [address] [id number] [address] [place] [address], [place] [address] Nov, [facility] [address] [id number] [address] [place] [address], [place] [address] Nov, [facility] [address] [id number] [address] [place] [address], [place] [address] Nov, [facility] [address] [id number] [address] [place] [address], [place] [address] Nov, [facility] [address] [id number] [address] [place] [address], [place] [address] Oct, [facility] [address] [id number] [address] [place] [address], [place] [address] Oct, [facility] [address] [id number] [address] [place] [address], [place] [address] Oct, [facility] [address] [id number] [address] [place] [address], [place] [address] Oct, [facility] [address] [id number] [address] [place] [address], [place] [address] Oct, [facility] [address] [id number] [address] [place] [address], [place] [address] Oct, [facility] [address] [id number] [address] [place] [address], [place] [address] Sep, [facility] [address] [id number] [address] [place] [address], [place] [address] Sep, [facility] [address] [id number] [address] [place] [address], [place] [address] Sep, [facility] [address] [id number] [address] [place] [address], [place] [address] Sep, [facility] [address] [id number] [address] [place] [address], [place] [address] Sep, [facility] [address] [id number] [address] [place] [address], [place] [address] Aug, [facility] [address] [id number] [address] [place] [address], [place] [address] Aug, [facility] [address] [id number] [address] [place] [address], [place] [address] Aug, [facility] [address] [id number] [address] [place] [address], [place] [address] Aug, [facility] [address] [id number] [address] [place] [address], [place] [address] Aug, [facility] [address] [id number] [address] [place] [address], [place] [address] Aug, [facility] [address] [id number] [address] [place] [address], [place] [address] Jul, [facility] [address] [id number] [address] [place] [address], [place] [address] Jul, [facility] [address] [id number] [address] [place] [address], [place] [address] Jul, [facility] [address] [id number] [address] [place] [address], [place] [address] Jun, [facility] [address] [id number] [address] [place] [address], [place] [address] Jun, [facility] [address] [id number] [address] [place] [address], [place] [address] May, [facility] [address] [id number] [address] [place] [address], [place] [address] May, [facility] [address] [id number] [address] [place] [address], [place] [address] Apr, [facility] [address] [id number] [address] [place] [address], [place] [address] Apr, [facility] [address] [id number] [address] [place] [address], [place] [address] Apr, [facility] [address] [id number] [address] [place] [address], [place] [address] March, [facility] [address] [id number] [address] [place] [address], [place] [address] Feb, [facility] [address] [id number] [address] [place] [address], [place] [address] Feb, [facility] [address] [id number] [address] [place] [address], [place] [address] Jan, [facility] [address] [id number] [address] [place] [address], [place] [address] Jan, [facility] [address] [id number] [address] [place] [address], [place] [address] Jan, [facility] [address] [id number] [address] [place] [address], [place] [address] Jan, [facility] [address] [id number] [address] [place] [address], [place] [address] Jan, [facility] [address] [id number] [address] [place] [address], [place] [address] Dec, [facility] [address] [id number] [address] [place] [address], [place] [address] Dec, [facility] [address] [id number] [address] [place] [address], [place] [address] 18 Dec, 2012 [facility] [address] [id number] [address] [place] [address], [place] [address] Dec, [facility] [address] [id number] [address] [place] [address], [place] [address] Dec, [facility] [address] [id number] [address] [place] [address], [place] [address] Dec, [facility] [address] [place] [id number] Nov, [facility] [address] [id number] [address] [place] [address], [place] [address] Nov, [facility] [address] [id number] [address] [place] [address], [place] [address] Nov, [facility] [address] [id number] [address] [place] [address], [place] [address] Nov, [facility] [address] [id number] [address] [place] [address], [place] [address] Nov, [facility] [address] [id number] [address] [place] [address], [place] [address] Oct, [facility] [address] [id number] [address] [place] [address], [place] [address] Oct, [facility] [address] [id number] [address] [place] [address], [place] [address] Oct, [facility] [address] [id number] [address] [place] [address], [place] [address] Oct, [facility] [address] [id number] [address] [place] [address], [place] [address] Oct, [facility] [address] [id number] [address] [place] [address], [place] [address] Oct, [facility] [address] [id number] [address] [place] [address], [place] [address] Oct, [facility] [address] [id number] [address] [place] [address], [place] [address] Oct, [facility] [address] [id number] [address] [place] [address], [place] [address] Sep, [facility] [address] [id number] [address] [place] [id number] Sep, [facility] [address] [id number] [address] [place] [id number] Sep, [facility] [address] [id number] [address] [place] [id number] Sep, [facility] [address] [id number] [address] [place] [id number] Sep, [facility] [address] [id number] [address] [place] [id number] Sep, [facility] [address] [id number] [address] [place] [id number] Sep, [facility] [address] [id number] [address] [place] [id number] Sep, [facility] [address] [id number] [address] [place] [id number] Sep, [facility] [address] [id number] [address] [place] [id number] Sep, [facility] [address] [id number] [address] [place] [id number] Sep, [facility] [address] [id number] [address] [place] [id number] Sep, [facility] [address] [id number] [address] [place] [id number] Sep, [facility] [address] [id number] [address] [place] [id number] Sep, [facility] [address] [id number] [address] [place] [id number] Sep, [facility] [address] [id number] [address] [place] [id number] Sep, IMMUNIZATIONS No Known Immunizations SOCIAL HISTORY [...]
--- OUTSIDE RECORDS SUMMARY | 2020-04-17 21:30 | XMS REPORT ---
Author Author Curt PATIÑO Organization [facility] Address [address] [place] [address] Care Team Providers Care Dimensional Engineer Name Role Phone BISMARK PATIÑO Unavailable PROBLEMS Type Condition ICD9-CM Code SER78-NA Code Onset Dates Condition S tatus SNOMED Code Problem Hypertension, essential I10 Active 07897829 Problem Gastroparesis K31.84 Active 033301 006 Problem Type 1 diabetes mellitus with other diab etic neurological complication E10.49 Active 68924266 Problem Controlled diabetes mellitus type 1 without complications E10.9 Active 52480916 Problem Mood disorder F39 Active 159920 05 Problem Other chronic pain G89.29 Active 8 1286974 Problem 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 Active 80203540 Problem Type 1 diabetes mellitus with hyperglycemia E10.65 Active [id number] Problem Type 1 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 Active 53478870 Problem Chronic fatigue R53.82 Active 8422 9001 ALLERGIES No Information ENCOUNTERS Encounter Location Date Diagnosis [facility] [address] [facility] [id number] [address] [place] [phone] Jul, Type 1 diabetes mellitus wit h other diabetic neurological complication E10.49 [facility] [address] [facility] [id number] [address] [place] [phone] Jul, Type 1 diabetes mellitus wit h hyperglycemia E10.65 [facility] [address] [facility] [id number] [address] [place] [phone] Jun, Type 1 diabetes mellitus wit h other diabetic neurological complication E10.49 [facility] [address] [facility] [id number] [address] [place] [phone] May, [facility] [address] [facility] [id number] [address] [place] [phone] May, [facility] [address] [facility] [id number] [address] [place] [address] May, Other chronic pain G89.29 [facility] [address] [id number] [address] [place] [id number] May, [facility] [address] [id number] [address] [place] [phone] May, Type 1 diabetes mellitus wit h other diabetic neurological complication E10.49 [facility] [address] [id number] [address] [place] [phone] Apr, [facility] [address] [id number] [address] [place] [phone] Apr, Type 1 diabetes mellitus wit h other diabetic neurological complication E10.49 [facility] [address] [facility] [id number] [address] [place] [phone] Apr, Encounter for Medicare annua l wellness exam Z00.00 [place] [address] [facility] [id number] [address] [place] [phone] March, Encounter for Medicare annua l wellness exam Z00.00 and Type 1 diabetes mellitus with other diabetic neurological complication E10.49 [facility] [address] [facility] [id number] [address] [place] [phone] Feb, Type 1 diabetes mellitus wit h other diabetic neurological complication E10.49 [facility] [address] [facility] [id number] [address] [place] [phone] Feb, Encounter for Medicare annua l wellness exam Z00.00 ; Mood disorder F39 ; Type 1 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 ; Hypertension, essential I10 and Chronic fatigue R53.82 [facility] [address] [id number] [address] [place] [phone] Jan, Type 1 diabetes mellitus wit h other diabetic neurological complication E10.49 [facility] [address] [facility] [id number] [address] [place] [id number] Jan, [facility] [address] [facility] [id number] [address] [place] [phone] Jan, Other chronic pain G89.29 [facility] [address] [id number] [address] [place] [phone] 11 Dec, 2018 [facility] [address] [id number] [address] [place] [id number] 08 Dec, 2018 Type 1 diabetes mellitus wit h other diabetic neurological complication E10.49 [facility] [address] [id number] [address] [place] [phone] 05 Dec, 2018 Other chronic pain G89.29 [facility] [address] [id number] [address] [place] [phone] Nov, [facility] [address] [id number] [address] [place] [address] [phone] Nov, Caries K02.9 [facility] [address] [id number] [address] [place] [id number] Nov, Type 1 diabetes mellitus wit h other diabetic neurological complication E10.49 [facility] [address] [id number] [address] [place] [id number] 07 Nov, 2018 Controlled diabetes mellitus type 1 without complications E10.9 ; Other chronic pain G89.29 and Pain in left knee M25.562 [facility] [address] [id number] [address] [place] [address] [id number] Oct, Dental examination Z01.20 [facility] [address] [id number] [address] [place] [id number] 14 Oct, 2018 Cutaneous abscess of unspeci fied foot L02.619 and Cellulitis of unspecified part of limb L03.119 [facility] [address] [id number] [address] [place] [address] 11 Oct, 2018 [facility] [address] [id number] [address] [place] [phone] 10 Oct, 2018 Type 1 diabetes mellitus wit h other diabetic neurological complication E10.49 [facility] [address] [id number] [address] [place] [id number] 06 Oct, 2018 Dental examination Z01.20 an d Caries K02.9 [facility] [address] [facility] [id number] [address] [place] [phone] 04 Oct, 2018 Cutaneous abscess of left fo ot L02.612 and Cellulitis of left lower limb L03.116 [facility] [address] [facility] [id number] [address] [place] [id number] 04 Oct, 2018 Dental examination Z01.20 an d Pain, dental K08.89 [facility] [address] [facility] [id number] [address] [place] [address] Sep, Left foot pain M79.672 and L eft anterior knee pain M25.562 [facility] [address] [facility] [id number] [address] [place] [phone] Sep, Type 1 diabetes mellitus wit h other diabetic neurological complication E10.49 [facility] [address] [facility] [id number] [address] [place] [phone] Sep, [facility] [address] [facility] [id number] [address] [place] [id number] 11 Aug, 2018 Type 1 diabetes mellitus wit h other diabetic neurological complication E10.49 [facility] [address] [facility] [id number] [address] [place] [phone] 10 Aug, 2018 Encounter for immunization Z 23 [facility] [address] [facility] [id number] [address] [place] [id number] 05 Aug, 2018 Type 1 diabetes mellitus wit h hyperglycemia E10.65 [facility] [address] [id number] [address] [place] [phone] Jul, Type 1 diabetes mellitus wit h hyperglycemia E10.65 [facility] [address] [facility] [id number] [address] [place] [phone] Jul, [facility] [address] [facility] [id number] [address] [place] [phone] Jul, [place] [address] [facility] [id number] [address] [place] [phone] Jul, Type 1 diabetes mellitus wit h other diabetic neurological complication E10.49 [facility] [address] [id number] [address] [place] [id number] Jul, Type 1 diabetes mellitus wit h other diabetic neurological complication E10.49 and Mood disorder F39 [facility] [address] [facility] [id number] [address] [place] [phone] Jun, [facility] [address] [facility] [id number] [address] [place] [phone] Jun, Type 1 diabetes mellitus wit h other diabetic neurological complication E10.49 and Chronic fatigue R53.82 [facility] [address] [facility] [id number] [address] [place] [phone] May, Type 1 diabetes mellitus wit h other diabetic neurological complication E10.49 [facility] [address] [facility] [id number] [address] [place] [phone] May, [facility] [address] [facility] [id number] [address] [place] [phone] May, [facility] [address] [facility] [id number] [address] [place] [phone] Apr, [facility] [address] [facility] [id number] [address] [place] [phone] Apr, Type 1 diabetes mellitus wit h other diabetic neurological complication E10.49 [facility] [address] [facility] [id number] [address] [place] [phone] March, [facility] [address] [facility] [id number] [address] [place] [phone] Feb, [facility] [address] [facility] [id number] [address] [place] [address] Feb, Type 1 diabetes mellitus wit h other diabetic neurological complication E10.49 ; Tobacco abuse Z72.0 and Tobacco abuse counseling Z71.6 [facility] [address] [facility] [id number] [address] [place] [address] Jan, Type 1 diabetes mellitus wit h hyperglycemia E10.65 [facility] [address] [facility] [id number] [address] [place] [phone] Jan, [facility] [address] [facility] [id number] [address] [place] [address] Dec, Tobacco abuse Z72.0 [facility] [address] [facility] [id number] [address] [place] [address] Dec, Type 1 diabetes mellitus wit h hyperglycemia E10.65 [facility] [address] [facility] [id number] [address] [place] [phone] Dec, Type 1 diabetes mellitus wit h hyperglycemia E10.65 ; Tobacco abuse Z72.0 and Tobacco abuse counseling Z71.6 [facility] [address] [facility] [id number] [address] [place] [address] Nov, Type 1 diabetes mellitus wit h hyperglycemia E10.65 [facility] [address] [facility] [id number] [address] [place] [phone] Oct, Type 1 diabetes mellitus wit h hyperglycemia E10.65 [facility] [address] [facility] [id number] [address] [place] [phone] Oct, Type 1 diabetes mellitus wit h hyperglycemia E10.65 [facility] [address] [facility] [id number] [address] [place] [address] Sep, Type 1 diabetes mellitus wit h hyperglycemia E10.65 [facility] [address] [facility] [id number] [address] [place] [id number] Aug, Type 1 diabetes mellitus wit h hyperglycemia E10.65 [facility] [address] [facility] [id number] [address] [place] [address] Aug, [facility] [address] [facility] [id number] [address] [place] [phone] Aug, Type 1 diabetes mellitus wit h hyperglycemia E10.65 [facility] [address] [facility] [id number] [address] [place] [id number] Aug, Encounter for immunization Z 23 [facility] [address] [id number] [address] [place] [phone] Aug, Type 1 diabetes mellitus wit h hyperglycemia E10.65 [facility] [address] [id number] [address] [place] [address] Jul, Type 1 diabetes mellitus wit h hyperglycemia E10.65 [facility] [address] [id number] [address] [place] [id number] Jul, Type 1 diabetes mellitus wit h hyperglycemia E10.65 [facility] [address] [id number] [address] [place] [phone] May, Type 1 diabetes mellitus wit h hyperglycemia E10.65 [facility] [address] [facility] [id number] [address] [place] [phone] May, [facility] [address] [facility] [id number] [address] [place] [phone] Apr, [facility] [address] [id number] [address] [place] [address] Apr, Type 1 diabetes mellitus wit h hyperglycemia E10.65 [facility] [address] [facility] [id number] [address] [place] [id number] March, [facility] [address] [facility] [id number] [address] [place] [phone] March, [facility] [address] [facility] [id number] [address] [place] [phone] Jan, [facility] [address] [id number] [address] [place] [phone] Jan, [facility] [address] [facility] [id number] [address] [place] [phone] Jan, Type 1 diabetes mellitus wit h diabetic polyneuropathy E10.42 [facility] [address] [id number] [address] [place] [phone] Jan, Type 1 diabetes mellitus wit h hyperglycemia E10.65 ; Excessive cerumen in both ear canals H61.23 and Controlled diabetes mellitus type 1 without complications E10.9 [facility] [address] [id number] [address] [place] [phone] 16 Dec, 2016 [facility] [address] [id number] [address] [place] [phone] Dec, [facility] [address] [id number] [address] [place] [phone] Dec, [facility] [address] [id number] [address] [place] [id number] Dec, [facility] [address] [id number] [address] [place] [phone] Nov, [facility] [address] [facility] [id number] [address] [place] [phone] Nov, [facility] [address] [id number] [address] [place] [phone] Oct, Type 1 diabetes mellitus wit h hyperglycemia E10.65 [facility] [address] [id number] [address] [place] [phone] 17 Sep, 2016 [facility] [address] [id number] [address] [place] [address] Sep, [facility] [address] [id number] [address] [place] [phone] Sep, Controlled diabetes mellitus type 1 without complications E10.9 [facility] [address] [id number] [address] [place] [phone] Sep, [facility] [address] [id number] [address] [place] [address] [id number] Aug, Dental caries K02.9 [facility] [address] [id number] [address] [place] [phone] 10 Aug, 2016 Type 1 diabetes mellitus wit h diabetic polyneuropathy E10.42 [facility] [address] [id number] [address] [place] [phone] Aug, [facility] [address] [id number] [address] [place] [phone] Aug, [facility] [address] [id number] [address] [place] [phone] Aug, [facility] [address] [id number] [address] [place] [id number] Jul, Type 1 diabetes mellitus wit h hyperglycemia E10.65 [facility] [address] [id number] [address] [place] [id number] Jul, Type 1 diabetes mellitus wit h hyperglycemia E10.65 ; Tooth pain K08.8 and Encounter for immunization Z23 [facility] [address] [id number] [address] [place] [id number] 08 Jul, 2016 Dental examination Z01.20 [facility] [address] [id number] [address] [place] [phone] Jul, [facility] [address] [id number] [address] [place] [phone] Jul, [facility] [address] [id number] [address] [place] [phone] Jul, [facility] [address] [id number] [address] [place] [phone] Jun, [facility] [address] [id number] [address] [place] [id number] May, [facility] [address] [id number] [address] [place] [phone] Apr, [facility] [address] [id number] [address] [place] [phone] Apr, [facility] [address] [id number] [address] [place] [phone] Apr, [facility] [address] [id number] [address] [place] [phone] March, [facility] [address] [id number] [address] [place] [phone] March, [facility] [address] [id number] [address] [place] [phone] Feb, [facility] [address] [id number] [address] [place] [phone] Feb, [facility] [address] [id number] [address] [place] [address] Feb, Type 1 diabetes mellitus wit h hyperglycemia E10.65 [facility] [address] [id number] [address] [place] [id number] Jan, [facility] [address] [id number] [address] [place] [phone] Jan, [facility] [address] [facility] [id number] [address] [place] [phone] Jan, [facility] [address] [id number] [address] [place] [phone] Jan, [facility] [address] [id number] [address] [place] [phone] Dec, [facility] [address] [facility] [id number] [address] [place] [phone] Nov, [facility] [address] [facility] [id number] [address] [place] [phone] Nov, [facility] [address] [facility] [id number] [address] [place] [phone] Oct, [facility] [address] [facility] [id number] [address] [place] [address] Oct, Type 1 diabetes mellitus wit h 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 ; Type 1 diabetes mellitus with hyperglycemia E10.65 ; Gastroparesis K31.84 and Esophageal stricture K22.2 [facility] [address] [id number] [address] [place] [phone] Oct, [facility] [address] [id number] [address] [place] [phone] Sep, [facility] [address] [id number] [address] [place] [phone] Sep, Type 1 diabetes mellitus wit h other diabetic neurological complication E10.49 [facility] [address] [id number] [address] [place] [phone] Aug, Encounter for immunization Z 23 [facility] [address] [id number] [address] [place] [phone] Aug, [facility] [address] [id number] [address] [place] [phone] Aug, [facility] [address] [id number] [address] [place] [phone] Jul, [facility] [address] [id number] [address] [place] [phone] Jul, [facility] [address] [id number] [address] [place] [phone] Jun, [facility] [address] [id number] [address] [place] [phone] Jun, [facility] [address] [id number] [address] [place] [phone] Jun, [facility] [address] [id number] [address] [place] [phone] May, [facility] [address] [id number] [address] [place] [phone] May, [facility] [address] [id number] [address] [place] [phone] May, Diabetes type 1, controlled 250.01 [facility] [address] [id number] [address] [place] [address] May, [facility] [address] [id number] [address] [place] [phone] May, [facility] [address] [id number] [address] [place] [phone] Apr, Dental examination V72.2 [facility] [address] [id number] [address] [place] [phone] Apr, [facility] [address] [id number] [address] [place] [phone] Apr, [facility] [address] [id number] [address] [place] [phone] Apr, [facility] [address] [id number] [address] [place] [phone] Apr, [facility] [address] [id number] [address] [place] [phone] Apr, [facility] [address] [id number] [address] [place] [address] [id number] Apr, Dental examination V72.2 [facility] [address] [id number] [address] [place] [phone] Apr, [facility] [address] [id number] [address] [place] [phone] Apr, [facility] [address] [id number] [address] [place] [phone] March, Diabetes mellitus type 1 250 .01 [facility] [address] [id number] [address] [place] [phone] March, [facility] [address] [id number] [address] [place] [phone] 14 Feb, 2015 [facility] [address] [id number] [address] [place] [phone] Feb, [facility] [address] [id number] [address] [place] [id number] Jan, [facility] [address] [id number] [address] [place] [phone] Jan, [facility] [address] [id number] [address] [place] [address], [place] [id number] Jan, [facility] [address] [id number] [address] [place] [address], [place] [id number] Jan, [facility] [address] [id number] [address] [place] [address], [place] [id number] Dec, [facility] [address] [id number] [address] [place] [address], [place] [id number] Dec, [facility] [address] [id number] [address] [place] [address], [place] [address] Nov, [facility] [address] [id number] [address] [place] [address], [place] [address] Nov, [facility] [address] [id number] [address] [place] [address], [place] [phone] Nov, [facility] [facility] [address] [id number] [address] [place] [address], [place] [address] Nov, [facility] [address] [id number] [address] [place] [address], [place] [address] Nov, [facility] [address] [id number] [address] [place] [address], [place] [address] Nov, [facility] [address] [id number] [address] [place] [address], [place] [address] Nov, [facility] [address] [id number] [address] [place] [address] Oct, [facility] [address] [id number] [address] [place] [address], [place] [address] Oct, [facility] [address] [id number] [address] [place] [address], [place] [address] Sep, [facility] [address] [id number] [address] [place] [address], [place] [address] Aug, [facility] [address] [id number] [address] [place] [address], [place] [address] Aug, [facility] [address] [id number] [address] [place] [address], [place] [address] Aug, [facility] [address] [id number] [address] [place] [address], [place] [address] Aug, [facility] [address] [id number] [address] [place] [address], [place] [address] Aug, [facility] [address] [id number] [address] [place] [address], [place] [address] Aug, [facility] [address] [id number] [address] [place] [address], [place] [address] Aug, [facility] [address] [id number] [address] [place] [address], [place] [address] Aug, [facility] [address] [id number] [address] [place] [address], [place] [address] Aug, [facility] [address] [id number] [address] [place] [address], [place] [address] Aug, [facility] [address] [id number] [address] [place] [address], [place] [address] Aug, [facility] [address] [id number] [address] [place] [address], [place] [address] Aug, [facility] [address] [id number] [address] [place] [address], [place] [address] Aug, 2013 [facility] [address] [id number] [address] [place] [address], [place] [address] Aug, 2013 [facility] [address] [id number] [address] [place] [address], [place] [address] Jul, 2013 [facility] [address] [id number] [address] [place] [address], [place] [address] Jul, 2013 [facility] [address] [id number] [address] [place] [address], [place] [address] Jul2013 [facility] [address] [id number] [facility] [place] [address] Jul, [facility] [address] [id number] [facility] [place] [address] Jun, [facility] [address] [id number] [facility] [place] [address] Jun, [facility] [address] [id number] [address] [place] [address], [place] [address] Jun, [facility] [address] [id number] [address] [place] [address], [place] [address] Jun, [facility] [address] [id number] [address] [place] [address], [place] [address] May, [facility] [address] [id number] [address] [place] [address], [place] [address] May, [facility] [address] [id number] [address] [place] [address], [place] [address] May, [facility] [address] [id number] [address] [place] [address], [place] [address] May, [facility] [address] [id number] [address] [place] [address], [place] [address] May, [facility] [address] [id number] [address] [place] [address], [place] [address] May, [facility] [address] [id number] [address] [place] [address], [place] [address] May, [facility] [address] [id number] [address] [place] [address], [place] [address] May, [facility] [address] [id number] [address] [place] [address], [place] [address] May, [facility] [address] [id number] [address] [place] [address], [place] [address] May, [facility] [address] [id number] [address] [place] [address], [place] [address] May, [facility] [address] [id number] [facility] [place] [address] May, [facility] [address] [id number] [address] [place] [address], [place] [address] May, [facility] [address] [id number] [facility] [place] [address] Apr, [facility] [address] [id number] [address] [place] [address], [place] [address] Apr, [facility] [address] [id number] [address] [place] [address], [place] [address] Apr, [facility] [address] [id number] [address] [place] [address], [place] [address] Apr, [facility] [address] [id number] [address] [place] [address], [place] [address] Apr, [facility] [address] [id number] [address] [place] [address], [place] [address] Apr, [facility] [address] [id number] [address] [place] [address], [place] [address] Apr, [facility] [address] [id number] [address] [place] [address], [place] [address] Apr, [facility] [address] [id number] [address] [place] [address], [place] [address] Apr, [facility] [address] [id number] [address] [place] [address], [place] [address] Apr, [facility] [address] [id number] [address] [place] [address], [place] [address] Apr, [facility] [address] [id number] [address] [place] [address], [place] [address] Apr, [facility] [address] [id number] [address] [place] [address], [place] [address] Apr, [facility] [address] [id number] [address] [place] [address], [place] [address] Apr, [facility] [address] [id number] [address] [place] [address], [place] [address] March, [facility] [address] [id number] [address] [place] [address], [place] [address] March, [facility] [address] [id number] [address] [place] [address], [place] [address] March, [facility] [address] [id number] [address] [place] [address], [place] [address] March, [facility] [address] [id number] [address] [place] [address], [place] [address] March, [facility] [address] [id number] [address] [place] [address], [place] [address] March, [facility] [address] [id number] [address] [place] [address], [place] [address] March, [facility] [address] [id number] [address] [place] [address], [place] [address] March, [facility] [address] [id number] [address] [place] [address], [place] [address] March, [facility] [address] [id number] [address] [place] [address], [place] [address] March, [facility] [address] [id number] [address] [place] [address], [place] [address] Feb, [facility] [address] [id number] [address] [place] [address], [place] [address] Feb, [facility] [address] [id number] [address] [place] [address], [place] [address] Feb, [facility] [address] [id number] [address] [place] [address], [place] [address] Feb, [facility] [address] [id number] [address] [place] [address], [place] [address] Feb, [facility] [address] [id number] [address] [place] [address], [place] [address] Feb, [facility] [address] [id number] [address] [place] [address], [place] [address] Feb, [facility] [address] [id number] [address] [place] [address], [place] [address] Feb, [facility] [address] [id number] [address] [place] [address], [place] [address] Jan, [facility] [address] [id number] [address] [place] [address], [place] [address] Jan, [facility] [address] [id number] [address] [place] [address], [place] [address] Jan, [facility] [address] [id number] [address] [place] [address], [place] [address] Jan, [facility] [address] [id number] [address] [place] [address], [place] [address] Jan, [facility] [address] [id number] [address] [place] [address], [place] [address] Jan, [facility] [address] [id number] [address] [place] [address], [place] [address] Jan, [facility] [address] [id number] [address] [place] [address], [place] [address] Jan, [facility] [address] [id number] [address] [place] [address], [place] [address] Jan, [facility] [address] [id number] [address] [place] [address], [place] [address] Jan, [facility] [address] [id number] [address] [place] [address], [place] [address] Dec, [facility] [address] [id number] [address] [place] [address], [place] [address] Dec, [facility] [address] [id number] [address] [place] [address], [place] [address] Nov, [facility] [address] [id number] [address] [place] [address], [place] [address] Nov, [facility] [address] [id number] [address] [place] [address], [place] [address] Nov, [facility] [address] [id number] [address] [place] [address], [place] [address] Nov, [facility] [address] [id number] [address] [place] [address], [place] [address] Nov, [facility] [address] [id number] [address] [place] [address], [place] [address] Nov, [facility] [address] [id number] [address] [place] [address], [place] [address] Nov, [facility] [address] [id number] [address] [place] [address], [place] [address] Nov, [facility] [address] [id number] [address] [place] [address], [place] [address] Oct, [facility] [address] [id number] [address] [place] [address], [place] [address] Oct, [facility] [address] [id number] [address] [place] [address], [place] [address] Oct, [facility] [address] [id number] [address] [place] [address], [place] [address] Oct, [facility] [address] [id number] [address] [place] [address], [place] [address] Oct, [facility] [address] [id number] [address] [place] [address], [place] [address] Oct, [facility] [address] [id number] [address] [place] [address], [place] [address] Sep, [facility] [address] [id number] [address] [place] [address], [place] [address] Sep, [facility] [address] [id number] [address] [place] [address], [place] [address] Sep, [facility] [address] [id number] [address] [place] [address], [place] [address] Sep, [facility] [address] [id number] [address] [place] [address], [place] [address] Sep, [facility] [address] [id number] [address] [place] [address], [place] [address] Aug, [facility] [address] [id number] [address] [place] [address], [place] [address] Aug, [facility] [address] [id number] [address] [place] [address], [place] [address] Aug, [facility] [address] [id number] [address] [place] [address], [place] [address] Aug, [facility] [address] [id number] [address] [place] [address], [place] [address] Aug, [facility] [address] [id number] [address] [place] [address], [place] [address] Aug, [facility] [address] [id number] [address] [place] [address], [place] [address] Jul, [facility] [address] [id number] [address] [place] [address], [place] [address] Jul, [facility] [address] [id number] [address] [place] [address], [place] [address] Jul, [facility] [address] [id number] [address] [place] [address], [place] [address] Jun, [facility] [address] [id number] [address] [place] [address], [place] [address] Jun, [facility] [address] [id number] [address] [place] [address], [place] [address] May, [facility] [address] [id number] [address] [place] [address], [place] [address] May, [facility] [address] [id number] [address] [place] [address], [place] [address] Apr, [facility] [address] [id number] [address] [place] [address], [place] [address] Apr, [facility] [address] [id number] [address] [place] [address], [place] [address] Apr, [facility] [address] [id number] [address] [place] [address], [place] [address] March, [facility] [address] [id number] [address] [place] [address], [place] [address] Feb, [facility] [address] [id number] [address] [place] [address], [place] [address] Feb, [facility] [address] [id number] [address] [place] [address], [place] [address] Jan, [facility] [address] [id number] [address] [place] [address], [place] [address] Jan, [facility] [address] [id number] [address] [place] [address], [place] [address] Jan, [facility] [address] [id number] [address] [place] [address], [place] [address] Jan, [facility] [address] [id number] [address] [place] [address], [place] [address] Jan, [facility] [address] [id number] [address] [place] [address], [place] [address] Dec, [facility] [address] [id number] [address] [place] [address], [place] [address] Dec, [facility] [address] [id number] [address] [place] [address], [place] [address] 18 Dec, 2012 [facility] [address] [id number] [address] [place] [address], [place] [address] Dec, [facility] [address] [id number] [address] [place] [address], [place] [address] Dec, [facility] [address] [id number] [address] [place] [address], [place] [address] Dec, [facility] [address] [place] [id number] Nov, [facility] [address] [id number] [address] [place] [address], [place] [address] Nov, [facility] [address] [id number] [address] [place] [address], [place] [address] Nov, [facility] [address] [id number] [address] [place] [address], [place] [address] Nov, [facility] [address] [id number] [address] [place] [address], [place] [address] Nov, [facility] [address] [id number] [address] [place] [address], [place] [address] Oct, [facility] [address] [id number] [address] [place] [address], [place] [address] Oct, [facility] [address] [id number] [address] [place] [address], [place] [address] Oct, [facility] [address] [id number] [address] [place] [address], [place] [address] Oct, [facility] [address] [id number] [address] [place] [address], [place] [address] Oct, [facility] [address] [id number] [address] [place] [address], [place] [address] Oct, [facility] [address] [id number] [address] [place] [address], [place] [address] Oct, [facility] [address] [id number] [address] [place] [address], [place] [address] Oct, [facility] [address] [id number] [address] [place] [address], [place] [address] Sep, [facility] [address] [id number] [address] [place] [address] Sep, [facility] [address] [id number] [address] [place] [address] Sep, [facility] [address] [id number] [address] [place] [address] Sep, [facility] [address] [id number] [address] [place] [address] Sep, [facility] [address] [id number] [address] [place] [address] Sep, [facility] [address] [id number] [address] [place] [address] Sep, [facility] [address] [id number] [address] [place] [address] Sep, [facility] [address] [id number] [address] [place] [address] Sep, [facility] [address] [id number] [address] [place] [address] Sep, [facility] [address] [id number] [address] [place] [address] Sep, [facility] [address] [id number] [address] [place] [address] Sep, [facility] [address] [id number] [address] [place] [address] Sep, [facility] [address] [id number] [address] [place] [id number] Sep, [facility] [address] [id number] [address] [place] [address] Sep, [facility] [address] [id number] [address] [place] [address] Sep, IMMUNIZATIONS No Known Immunizations SOCIAL HISTORY [...]
--- OUTSIDE RECORDS SUMMARY | 2020-04-17 21:31 | XMS REPORT ---
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 Name Role Phone BISMARK PATIÑO Unavailable PROBLEMS Type Condition ICD9-CM Code ZEW11-VZ Code Onset Dates Condition S tatus SNOMED Code Problem Hypertension, essential I10 Active 94517734 Problem Gastroparesis K31.84 Active 419237 006 Problem Type 1 diabetes mellitus with other diab etic neurological complication E10.49 Active 74078044 Problem Controlled diabetes mellitus type 1 without complications E10.9 Active 08297227 Problem Mood disorder F39 Active 641851 05 Problem Other chronic pain G89.29 Active 8 3858159 Problem 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 Active 44307098 Problem Type 1 diabetes mellitus with hyperglycemia E10.65 Active [id number] Problem Type 1 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 Active 02037519 Problem Chronic fatigue R53.82 Active 8422 9001 ALLERGIES No Information ENCOUNTERS Encounter Location Date Diagnosis [facility] [address] [facility] [id number] [address] [place] [phone] Jun, Type 1 diabetes mellitus wit h other diabetic neurological complication E10.49 [facility] [address] [facility] [id number] [address] [place] [id number] May, [facility] [address] [facility] [id number] [address] [place] [id number] May, [facility] [address] [facility] [id number] [address] [place] [phone] May, Other chronic pain G89.29 [facility] [address] [facility] [id number] [address] [place] [id number] May, [facility] [address] [facility] [id number] [address] [place] [id number] May, Type 1 diabetes mellitus wit h other diabetic neurological complication E10.49 [facility] [address] [id number] [address] [place] [id number] Apr, [facility] [address] [facility] [id number] [address] [place] [id number] Apr, Type 1 diabetes mellitus wit h other diabetic neurological complication E10.49 [facility] [address] [facility] [id number] [address] [place] [id number] 03 Apr, 2019 Encounter for Medicare annua l wellness exam Z00.00 [facility] [address] [id number] [address] [place] [id number] March, Encounter for Medicare annua l wellness exam Z00.00 and Type 1 diabetes mellitus with other diabetic neurological complication E10.49 [facility] [address] [facility] [id number] [address] [place] [id number] Feb, Type 1 diabetes mellitus wit h other diabetic neurological complication E10.49 [facility] [address] [facility] [id number] [address] [place] [id number] Feb, Encounter for Medicare annua l wellness exam Z00.00 ; Mood disorder F39 ; Type 1 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 ; Hypertension, essential I10 and Chronic fatigue R53.82 [facility] [address] [facility] [id number] [address] [place] [id number] Jan, Type 1 diabetes mellitus wit h other diabetic neurological complication E10.49 [facility] [address] [id number] [address] [place] [id number] Jan, [facility] [address] [id number] [address] [place] [id number] Jan, Other chronic pain G89.29 [facility] [address] [facility] [id number] [address] [place] [id number] Dec, [facility] [address] [facility] [id number] [address] [place] [id number] 08 Dec, 2018 Type 1 diabetes mellitus wit h other diabetic neurological complication E10.49 [facility] [address] [id number] [address] [place] [id number] 05 Dec, 2018 Other chronic pain G89.29 [facility] [address] [id number] [address] [place] [id number] Nov, [facility] [address] [id number] [address] [place] [id number] Nov, Caries K02.9 [facility] [address] [id number] [address] [place] [id number] 15 Nov, 2018 Type 1 diabetes mellitus wit h other diabetic neurological complication E10.49 [place] [address] [facility] [id number] [address] [place] [id number] Nov, Controlled diabetes mellitus type 1 without complications E10.9 ; Other chronic pain G89.29 and Pain in left knee M25.562 [facility] [address] [facility] [id number] [place] [address] [id number] Oct, Dental examination Z01.20 [facility] [address] [facility] [id number] [address] [place] [id number] 14 Oct, 2018 Cutaneous abscess of unspeci fied foot L02.619 and Cellulitis of unspecified part of limb L03.119 [place] [address] [facility] [id number] [address] [place] [id number] Oct, [facility] [address] [facility] [id number] [address] [place] [id number] Oct, Type 1 diabetes mellitus wit h other diabetic neurological complication E10.49 [facility] [address] [facility] [id number] [place] [address] [id number] Oct, Dental examination Z01.20 an d Caries K02.9 [facility] [address] [facility] [id number] [address] [place] [id number] 04 Oct, 2018 Cutaneous abscess of left fo ot L02.612 and Cellulitis of left lower limb L03.116 [facility] [address] [facility] [id number] [address] [place] [id number] 04 Oct, 2018 Dental examination Z01.20 an d Pain, dental K08.89 [facility] [address] [facility] [id number] [address] [place] [id number] Sep, Left foot pain M79.672 and L eft anterior knee pain M25.562 [facility] [address] [facility] [id number] [address] [place] [id number] 12 Sep, 2018 Type 1 diabetes mellitus wit h other diabetic neurological complication E10.49 [facility] [address] [facility] [id number] [address] [place] [id number] Sep, [facility] [address] [place] [id number] [address] [place] [id number] 11 Aug, 2018 Type 1 diabetes mellitus wit h other diabetic neurological complication E10.49 [facility] [id number] [place] [id number] 10 Aug, 2018 Encounter for immunization Z 23 [facility] [address] [facility] [id number] [address] [place] [id number] 05 Aug, 2018 Type 1 diabetes mellitus wit h hyperglycemia E10.65 [facility] [address] [place] [id number] [address] [place] [id number] 21 Jul, 2018 Type 1 diabetes mellitus wit h hyperglycemia E10.65 [facility] [address] [facility] [id number] [address] [place] [id number] 19 Jul, 2018 [facility] [address] [facility] [id number] [address] [place] [id number] 18 Jul, 2018 [facility] [address] [facility] [id number] [address] [place] [id number] 17 Jul, 2018 Type 1 diabetes mellitus wit h other diabetic neurological complication E10.49 [facility] [address] [facility] [id number] [address] [place] [id number] 17 Jul, 2018 Type 1 diabetes mellitus wit h other diabetic neurological complication E10.49 and Mood disorder F39 [facility] [address] [id number] [address] [place] [id number] Jun, [facility] [address] [id number] [address] [place] [id number] Jun, Type 1 diabetes mellitus wit h other diabetic neurological complication E10.49 and Chronic fatigue R53.82 [facility] [address] [id number] [address] [place] [id number] May, Type 1 diabetes mellitus wit h other diabetic neurological complication E10.49 [facility] [address] [id number] [address] [place] [id number] May, [facility] [address] [id number] [address] [place] [id number] May, [facility] [address] [id number] [address] [place] [phone] Apr, [facility] [address] [id number] [address] [place] [id number] Apr, Type 1 diabetes mellitus wit h other diabetic neurological complication E10.49 [facility] [address] [id number] [address] [place] [id number] March, [facility] [address] [id number] [address] [place] [id number] Feb, [facility] [address] [id number] [address] [place] [id number] Feb, Type 1 diabetes mellitus wit h other diabetic neurological complication E10.49 ; Tobacco abuse Z72.0 and Tobacco abuse counseling Z71.6 [facility] [address] [id number] [address] [place] [id number] Jan, Type 1 diabetes mellitus wit h hyperglycemia E10.65 [facility] [address] [id number] [address] [place] [id number] Jan, [facility] [address] [id number] [address] [place] [id number] 21 Feb, 2018 Tobacco abuse Z72.0 [facility] [address] [facility] [id number] [address] [place] [id number] Dec, Type 1 diabetes mellitus wit h hyperglycemia E10.65 [facility] [address] [facility] [id number] [address] [place] [id number] 16 Dec, 2017 Type 1 diabetes mellitus wit h hyperglycemia E10.65 ; Tobacco abuse Z72.0 and Tobacco abuse counseling Z71.6 [facility] [address] [facility] [id number] [address] [place] [id number] Nov, Type 1 diabetes mellitus wit h hyperglycemia E10.65 [facility] [address] [facility] [id number] [address] [place] [id number] Oct, Type 1 diabetes mellitus wit h hyperglycemia E10.65 [facility] [address] [place] [id number] [place] [phone] Oct, Type 1 diabetes mellitus wit h hyperglycemia E10.65 [facility] [address] [place] [id number] [address] [place] [id number] Sep, Type 1 diabetes mellitus wit h hyperglycemia E10.65 [facility] [address] [place] [id number] [address] [place] [id number] Aug, Type 1 diabetes mellitus wit h hyperglycemia E10.65 [facility] [address] [place] [id number] [address] [place] [id number] Aug, [facility] [address] [place] [id number] [address] [place] [id number] Aug, Type 1 diabetes mellitus wit h hyperglycemia E10.65 [facility] [address] [facility] [id number] [address] [place] [id number] Aug, Encounter for immunization Z 23 [facility] [address] [facility] [id number] [address] [place] [id number] Aug, Type 1 diabetes mellitus wit h hyperglycemia E10.65 [facility] [address] [facility] [id number] [address] [place] [id number] Jul, Type 1 diabetes mellitus wit h hyperglycemia E10.65 [facility] [address] [id number] [address] [place] [id number] Jul, Type 1 diabetes mellitus wit h hyperglycemia E10.65 [facility] [address] [id number] [address] [place] [id number] May, Type 1 diabetes mellitus wit h hyperglycemia E10.65 [facility] [address] [id number] [address] [place] [id number] May, [facility] [address] [id number] [address] [place] [id number] Apr, [facility] [address] [id number] [address] [place] [id number] Apr, Type 1 diabetes mellitus wit h hyperglycemia E10.65 [facility] [address] [id number] [address] [place] [id number] March, [facility] [address] [id number] [address] [place] [id number] March, [facility] [address] [id number] [address] [place] [id number] Jan, [facility] [address] [id number] [address] [place] [id number] Jan, [facility] [address] [id number] [address] [place] [id number] Jan, Type 1 diabetes mellitus wit h diabetic polyneuropathy E10.42 [facility] [address] [id number] [address] [place] [id number] Jan, Type 1 diabetes mellitus wit h hyperglycemia E10.65 ; Excessive cerumen in both ear canals H61.23 and Controlled diabetes mellitus type 1 without complications E10.9 [facility] [address] [id number] [address] [place] [id number] Dec, [facility] [address] [facility] [id number] [address] [place] [id number] Dec, [facility] [address] [id number] [address] [place] [id number] Dec, [facility] [address] [id number] [address] [place] [phone] Dec, [facility] [address] [id number] [address] [place] [id number] Nov, [facility] [address] [id number] [address] [place] [id number] Nov, [facility] [address] [id number] [address] [place] [id number] Oct, Type 1 diabetes mellitus wit h hyperglycemia E10.65 [facility] [address] [id number] [address] [place] [id number] Sep, [facility] [address] [id number] [address] [place] [id number] Sep, [facility] [address] [id number] [address] [place] [id number] Sep, Controlled diabetes mellitus type 1 without complications E10.9 [facility] [address] [id number] [address] [place] [id number] Sep, [facility] [address] [id number] [address] [place] [address] [id number] Aug, Dental caries K02.9 [facility] [address] [id number] [address] [place] [id number] Aug, Type 1 diabetes mellitus wit h diabetic polyneuropathy E10.42 [facility] [address] [id number] [address] [place] [id number] Aug, [facility] [address] [facility] [id number] [address] [place] [id number] Aug, [facility] [address] [facility] [id number] [address] [place] [id number] Aug, [facility] [address] [id number] [address] [place] [id number] Jul, Type 1 diabetes mellitus wit h hyperglycemia E10.65 [facility] [address] [id number] [address] [place] [id number] Jul, Type 1 diabetes mellitus wit h hyperglycemia E10.65 ; Tooth pain K08.8 and Encounter for immunization Z23 [facility] [address] [id number] [address] [place] [address] [id number] 08 Jul, 2016 Dental examination Z01.20 [facility] [address] [id number] [address] [place] [id number] Jul, [facility] [address] [id number] [address] [place] [id number] Jul, [facility] [address] [id number] [address] [place] [id number] Jul, [facility] [address] [id number] [address] [place] [id number] Jun, [facility] [address] [id number] [address] [place] [id number] May, [facility] [address] [id number] [address] [place] [id number] Apr, [facility] [address] [id number] [address] [place] [phone] Apr, [facility] [address] [id number] [address] [place] [id number] Apr, [facility] [address] [id number] [address] [place] [id number] March, [facility] [address] [id number] [address] [place] [id number] March, [facility] [address] [id number] [address] [place] [phone] Feb, [facility] [address] [id number] [address] [place] [id number] Feb, [facility] [address] [facility] [id number] [address] [place] [id number] Feb, Type 1 diabetes mellitus wit h hyperglycemia E10.65 [facility] [address] [id number] [address] [place] [id number] Jan, [facility] [address] [id number] [address] [place] [id number] Jan, [facility] [address] [id number] [address] [place] [phone] Jan, [facility] [address] [id number] [address] [place] [id number] Jan, [facility] [address] [facility] [id number] [address] [place] [phone] Dec, [facility] [address] [facility] [id number] [address] [place] [id number] Nov, [facility] [address] [id number] [address] [place] [id number] Nov, [facility] [address] [facility] [id number] [address] [place] [id number] Oct, [facility] [address] [facility] [id number] [address] [place] [id number] 04 Oct, 2015 Type 1 diabetes mellitus wit h 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 ; Type 1 diabetes mellitus with hyperglycemia E10.65 ; Gastroparesis K31.84 and Esophageal stricture K22.2 [facility] [address] [facility] [id number] [address] [place] [id number] Oct, [facility] [address] [facility] [id number] [address] [place] [id number] Sep, [facility] [address] [facility] [id number] [address] [place] [id number] 13 Sep, 2015 Type 1 diabetes mellitus wit h other diabetic neurological complication E10.49 [facility] [address] [id number] [address] [place] [id number] Aug, Encounter for immunization Z 23 [facility] [address] [id number] [address] [place] [id number] Aug, [facility] [address] [id number] [address] [place] [id number] Aug, [facility] [address] [id number] [address] [place] [id number] Jul, [facility] [address] [id number] [address] [place] [id number] Jul, [facility] [address] [id number] [address] [place] [id number] Jun, [facility] [address] [id number] [address] [place] [id number] Jun, [facility] [address] [id number] [address] [place] [phone] Jun, [facility] [address] [id number] [address] [place] [id number] May, [facility] [address] [id number] [address] [place] [id number] May, [facility] [address] [id number] [address] [place] [id number] May, Diabetes type 1, controlled 250.01 [facility] [address] [id number] [address] [place] [id number] May, [facility] [address] [id number] [address] [place] [id number] May, [facility] [address] [id number] [address] [place] [id number] Apr, Dental examination V72.2 [facility] [address] [id number] [address] [place] [id number] Apr, [facility] [address] [id number] [address] [place] [id number] Apr, [facility] [address] [id number] [address] [place] [id number] Apr, [facility] [address] [id number] [address] [place] [id number] Apr, [facility] [address] [id number] [address] [place] [id number] Apr, [facility] [address] [id number] [address] [place] [address] [id number] Apr, Dental examination V72.2 [facility] [address] [id number] [address] [place] [id number] Apr, [facility] [address] [id number] [address] [place] [id number] Apr, [facility] [address] [id number] [address] [place] [id number] March, Diabetes mellitus type 1 250 .01 [facility] [address] [id number] [address] [place] [phone] March, [facility] [address] [id number] [address] [place] [phone] Feb, [facility] [address] [id number] [address] [place] [id number] Feb, [facility] [address] [id number] [address] [place] [id number] Jan, [facility] [address] [id number] [address] [place] [id number] Jan, [facility] [address] [id number] [address] [place] [id number] Jan, [facility] [address] [id number] [address] [place] [id number] Jan, [facility] [address] [id number] [address] [place] [id number] Dec, [facility] [address] [id number] [address] [place] [address], [place] [phone] Dec, [facility] [address] [id number] [address] [place] [address], [place] [id number] Nov, [facility] [address] [id number] [address] [place] [address], [place] [address] Nov, [facility] [address] [id number] [address] [place] [address], [place] [id number] Nov, [facility] [address] [id number] [address] [place] [address], [place] [id number] Nov, [facility] [address] [id number] [address] [place] [address], [place] [id number] Nov, [facility] [address] [id number] [address] [place] [address], [place] [id number] Nov, [facility] [address] [id number] [address] [place] [address], [place] [id number] Nov, [facility] [address] [id number] [address] [place] [id number] Oct, [facility] [address] [id number] [address] [place] [address], [place] [id number] Oct, [facility] [address] [id number] [address] [place] [address], [place] [address] Sep, [facility] [address] [id number] [address] [place] [address] Aug, [facility] [address] [id number] [address] [place] [address], [place] [address] Aug, [facility] [address] [id number] [address] [place] [address], [place] [address] Aug, [facility] [address] [id number] [address] [place] [address], [place] [address] Aug, [facility] [address] [id number] [address] [place] [address], [place] [address] Aug, [facility] [address] [id number] [address] [place] [address], [place] [address] Aug, [facility] [address] [id number] [address] [place] [address], [place] [address] Aug, [facility] [address] [id number] [address] [place] [address], [place] [address] Aug, [facility] [address] [id number] [address] [place] [address], [place] [address] Aug, [facility] [address] [id number] [address] [place] [address], [place] [address] Aug, [facility] [address] [id number] [address] [place] [address], [place] [address] Aug, [facility] [address] [id number] [address] [place] [address], [place] [address] Aug, [facility] [address] [id number] [address] [place] [address], [place] [address] Aug, [facility] [address] [id number] [address] [place] [address], [place] [address] Aug, [facility] [address] [id number] [address] [place] [address], [place] [address] Jul, [facility] [address] [id number] [address] [place] [address], [place] [address] Jul, [facility] [address] [id number] [address] [place] [address], [place] [address] Jul, [facility] [address] [id number] [address] [place] [address], [place] [address] Jul, [facility] [address] [id number] [address] [place] [address], [place] [address] Jun, [facility] [address] [id number] [address] [place] [address], [place] [address] Jun, [facility] [address] [id number] [facility] [place] [address] Jun, [facility] [address] [id number] [facility] [place] [address] Jun, [facility] [address] [id number] [facility] [place] [address] May, [facility] [address] [id number] [address] [place] [address], [place] [address] May, [facility] [address] [id number] [facility] [place] [address] May, [facility] [address] [id number] [address] [place] [address], [place] [address] May, [facility] [address] [id number] [address] [place] [address], [place] [address] May, [facility] [address] [id number] [address] [place] [address], [place] [address] May, [facility] [address] [id number] [address] [place] [address], [place] [address] May, [facility] [address] [id number] [address] [place] [address], [place] [address] May, [facility] [address] [id number] [address] [place] [address], [place] [address] May, [facility] [address] [id number] [address] [place] [address], [place] [address] May, [facility] [address] [id number] [address] [place] [address], [place] [address] May, [facility] [address] [id number] [address] [place] [address], [place] [address] May, [facility] [address] [id number] [address] [place] [address], [place] [address] May, [facility] [address] [id number] [facility] [place] [address] Apr, [facility] [address] [id number] [facility] [place] [address] Apr, [facility] [address] [id number] [facility] [place] [address] Apr, [facility] [address] [id number] [address] [place] [address], [place] [address] Apr, [facility] [address] [id number] [address] [place] [address], [place] [address] Apr, [facility] [address] [id number] [address] [place] [address], [place] [address] Apr, [facility] [address] [id number] [address] [place] [address], [place] [address] Apr, [facility] [address] [id number] [address] [place] [address], [place] [address] Apr, [facility] [address] [id number] [address] [place] [address], [place] [address] Apr, [facility] [address] [id number] [address] [place] [address], [place] [address] Apr, [facility] [address] [id number] [address] [place] [address], [place] [address] Apr, [facility] [address] [id number] [address] [place] [address], [place] [address] Apr, [facility] [address] [id number] [address] [place] [address], [place] [address] Apr, [facility] [address] [id number] [address] [place] [address], [place] [address] Apr, [facility] [address] [id number] [address] [place] [address], [place] [address] March, [facility] [address] [id number] [address] [place] [address], [place] [address] March, [facility] [address] [id number] [address] [place] [address], [place] [address] March, [facility] [address] [id number] [address] [place] [address], [place] [address] March, [facility] [address] [id number] [address] [place] [address], [place] [address] March, [facility] [address] [id number] [address] [place] [address], [place] [address] March, [facility] [address] [id number] [address] [place] [address], [place] [address] March, [facility] [address] [id number] [address] [place] [address], [place] [address] March, [facility] [address] [id number] [address] [place] [address], [place] [address] March, [facility] [address] [id number] [address] [place] [address], [place] [address] March, [facility] [address] [id number] [address] [place] [address], [place] [address] Feb, [facility] [address] [id number] [address] [place] [address], [place] [address] Feb, [facility] [address] [id number] [address] [place] [address], [place] [address] Feb, [facility] [address] [id number] [address] [place] [address], [place] [address] Feb, [facility] [address] [id number] [address] [place] [address], [place] [address] Feb, [facility] [address] [id number] [address] [place] [address], [place] [address] Feb, [facility] [address] [id number] [address] [place] [address], [place] [address] Feb, [facility] [address] [id number] [address] [place] [address], [place] [address] Feb, [facility] [address] [id number] [facility] [place] [address] 18 Jan, 2014 [facility] [address] [id number] [address] [place] [address], [place] [address] Jan, [facility] [address] [id number] [address] [place] [address], [place] [address] Jan, [facility] [address] [id number] [address] [place] [address], [place] [address] Jan, [facility] [address] [id number] [address] [place] [address], [place] [address] Jan, [facility] [address] [id number] [address] [place] [address], [place] [address] Jan, [facility] [address] [id number] [address] [place] [address], [place] [address] Jan, [facility] [address] [id number] [address] [place] [address], [place] [address] Jan, [facility] [address] [id number] [address] [place] [address], [place] [address] Jan, [facility] [address] [id number] [address] [place] [address], [place] [address] Jan, [facility] [address] [id number] [address] [place] [address], [place] [address] Dec, [facility] [address] [id number] [address] [place] [address], [place] [address] Dec, [facility] [address] [id number] [address] [place] [address], [place] [address] Nov, [facility] [address] [id number] [address] [place] [address], [place] [address] Nov, [facility] [address] [id number] [address] [place] [address], [place] [address] Nov, [facility] [address] [id number] [address] [place] [address], [place] [address] 16 Nov, 2013 [facility] [address] [id number] [address] [place] [address], [place] [address] Nov, [facility] [address] [id number] [address] [place] [address], [place] [address] 15 Nov, 2013 [facility] [address] [id number] [address] [place] [address], [place] [address] Nov, [facility] [address] [id number] [address] [place] [address], [place] [address] Nov, [facility] [address] [id number] [address] [place] [address], [place] [address] Oct, [facility] [address] [id number] [address] [place] [address], [place] [address] Oct, [facility] [address] [id number] [address] [place] [address], [place] [address] Oct, [facility] [address] [id number] [address] [place] [address], [place] [address] Oct, [facility] [address] [id number] [address] [place] [address], [place] [address] Oct, [facility] [address] [id number] [address] [place] [address], [place] [address] Oct, [facility] [address] [id number] [address] [place] [address], [place] [address] Sep, [facility] [address] [id number] [address] [place] [address], [place] [address] Sep, [facility] [address] [id number] [address] [place] [address], [place] [address] Sep, [facility] [address] [id number] [address] [place] [address], [place] [address] Sep, [facility] [address] [id number] [address] [place] [address], [place] [address] Sep, [facility] [address] [id number] [address] [place] [address], [place] [address] Aug, [facility] [address] [id number] [address] [place] [address], [place] [address] Aug, [facility] [address] [id number] [address] [place] [address], [place] [address] Aug, [facility] [address] [id number] [address] [place] [address], [place] [address] Aug, [facility] [address] [id number] [address] [place] [address], [place] [address] Aug, [facility] [address] [id number] [address] [place] [address], [place] [address] Aug, [facility] [address] [id number] [address] [place] [address], [place] [address] Jul, [facility] [address] [id number] [address] [place] [address], [place] [address] Jul, [facility] [address] [id number] [address] [place] [address], [place] [address] Jul, [facility] [address] [id number] [address] [place] [address], [place] [address] Jun, [facility] [address] [id number] [address] [place] [address], [place] [address] Jun, [facility] [address] [id number] [address] [place] [address], [place] [address] May, [facility] [address] [id number] [address] [place] [address], [place] [address] May, [facility] [address] [id number] [address] [place] [address], [place] [address] Apr, [facility] [address] [id number] [address] [place] [address], [place] [address] Apr, [facility] [address] [id number] [address] [place] [address] [place] [address] 06 Apr, 2013 [facility] [address] [id number] [address] [place] [address], [place] [address] March, [facility] [address] [id number] [address] [place] [address], [place] [address] Feb, [facility] [address] [id number] [address] [place] [address], [place] [address] Feb, [facility] [address] [id number] [address] [place] [address], [place] [address] Jan, [facility] [address] [id number] [address] [place] [address], [place] [address] Jan, [facility] [address] [id number] [address] [place] [address], [place] [address] Jan, [facility] [address] [id number] [address] [place] [address], [place] [address] Jan, [facility] [address] [id number] [address] [place] [address], [place] [address] Jan, [facility] [address] [id number] [address] [place] [address], [place] [address] Dec, [facility] [address] [id number] [address] [place] [address], [place] [address] Dec, [facility] [address] [id number] [address] [place] [address], [place] [address] Dec, [facility] [address] [id number] [address] [place] [address], [place] [address] Dec, [facility] [address] [id number] [address] [place] [address], [place] [address] 05 Dec, 2012 [facility] [address] [id number] [address] [place] [address], [place] [address] 05 Dec, [address] [facility] [place] [id number] Nov, [facility] [address] [id number] [address] [place] [address], [place] [address] Nov, [facility] [address] [id number] [address] [place] [address], [place] [address] Nov, [facility] [address] [id number] [address] [place] [address], [place] [address] Nov, [facility] [address] [id number] [address] [place] [address], [place] [address] Nov, [facility] [address] [id number] [address] [place] [address], [place] [address] Oct, [facility] [address] [id number] [address] [place] [address], [place] [address] Oct, [facility] [address] [id number] [address] [place] [address], [place] [address] Oct, [facility] [address] [id number] [address] [place] [address], [place] [address] Oct, [facility] [address] [id number] [address] [place] [address], [place] [address] Oct, [facility] [address] [id number] [address] [place] [address], [place] [address] Oct, [facility] [address] [id number] [address] [place] [address], [place] [address] Oct, [facility] [address] [id number] [address] [place] [address], [place] [address] Oct, [facility] [address] [id number] [address] [place] [address], [place] [address] Sep, [facility] [address] [id number] [address] [place] [address], [place] [address] Sep, [facility] [address] [id number] [address] [place] [address], [place] [address] Sep, [facility] [address] [id number] [address] [place] [address], [place] [address] Sep, [facility] [address] [id number] [address] [place] [address] Sep, [facility] [address] [id number] [address] [place] [address] Sep, [facility] [address] [id number] [address] [place] [address] Sep, [facility] [address] [id number] [address] [place] [address] Sep, [facility] [address] [id number] [address] [place] [address] Sep, [facility] [address] [id number] [address] [place] [address] Sep, [facility] [address] [id number] [address] [place] [address] Sep, [facility] [address] [id number] [address] [place] [address] Sep, [facility] [address] [id number] [address] [place] [address] Sep, [facility] [address] [id number] [address] [place] [address] Sep, [facility] [address] [id number] [address] [place] [address] Sep, [facility] [address] [id number] [address] [place] [address] Sep, IMMUNIZATIONS No Known Immunizations SOCIAL HISTORY Never Assessed REASON FOR VISIT PLAN OF CARE VITAL SIGNS MEDICATIONS Unknown Medications RESULTS No Results PROCEDURES No Known procedures INSTRUCTIONS MEDICATIONS ADMINISTERED No Known Medications MEDICAL (GENERAL) HISTORY Type Description Date Medical History hypertension Medical History type I diabetes Medical History chronic renal insufficiency Surgical History gastric pacemaker 2008 Hospitalization History 2011
--- OUTSIDE RECORDS SUMMARY | 2020-04-17 21:31 | XMS REPORT ---
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 Name Role Phone BISMARK PATIÑO Unavailable PROBLEMS Type Condition ICD9-CM Code BBB52-XD Code Onset Dates Condition S tatus SNOMED Code Problem Hypertension, essential I10 Active 69680334 Problem Gastroparesis K31.84 Active 478618 006 Problem Type 1 diabetes mellitus with other diab etic neurological complication E10.49 Active 66250191 Problem Controlled diabetes mellitus type 1 without complications E10.9 Active 91533837 Problem Mood disorder F39 Active 325042 05 Problem Other chronic pain G89.29 Active 8 0773364 Problem 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 Active 11736611 Problem Type 1 diabetes mellitus with hyperglycemia E10.65 Active [id number] Problem Type 1 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 Active 94708368 Problem Chronic fatigue R53.82 Active 8422 9001 ALLERGIES No Information ENCOUNTERS Encounter Location Date Diagnosis [facility] [address] [facility] [id number] [address] [place] [id number] May, [facility] [address] [facility] [id number] [address] [place] [address] May, [facility] [address] [facility] [id number] [address] [place] [address] May, Other chronic pain G89.29 [facility] [address] [facility] [id number] [address] [place] [id number] May, [facility] [address] [facility] [id number] [address] [place] [address] May, Type 1 diabetes mellitus wit h other diabetic neurological complication E10.49 [facility] [address] [facility] [id number] [address] [place] [address] Apr, [facility] [address] [id number] [address] [place] [address] Apr, Type 1 diabetes mellitus wit h other diabetic neurological complication E10.49 [facility] [address] [id number] [address] [place] [address] Apr, Encounter for Medicare annua l wellness exam Z00.00 [facility] [address] [facility] [id number] [address] [place] [address] March, Encounter for Medicare annua l wellness exam Z00.00 and Type 1 diabetes mellitus with other diabetic neurological complication E10.49 [facility] [address] [facility] [id number] [address] [place] [address] Feb, Type 1 diabetes mellitus wit h other diabetic neurological complication E10.49 [facility] [address] [facility] [id number] [address] [place] [address] Feb, Encounter for Medicare annua l wellness exam Z00.00 ; Mood disorder F39 ; Type 1 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 ; Hypertension, essential I10 and Chronic fatigue R53.82 [facility] [address] [facility] [id number] [address] [place] [address] Jan, Type 1 diabetes mellitus wit h other diabetic neurological complication E10.49 [facility] [address] [id number] [address] [place] [address] Jan, [facility] [address] [id number] [address] [place] [address] Jan, Other chronic pain G89.29 [facility] [address] [id number] [address] [place] [id number] Dec, [facility] [address] [id number] [address] [place] [address] 08 Dec, 2018 Type 1 diabetes mellitus wit h other diabetic neurological complication E10.49 [facility] [address] [id number] [address] [place] [id number] 05 Dec, 2018 Other chronic pain G89.29 [facility] [address] [id number] [address] [place] [address] Nov, [facility] [address] [id number] [address] [place] [address] [id number] Nov, Caries K02.9 [facility] [address] [id number] [address] [place] [id number] Nov, Type 1 diabetes mellitus wit h other diabetic neurological complication E10.49 [facility] [address] [id number] [address] [place] [address] Nov, Controlled diabetes mellitus type 1 without complications E10.9 ; Other chronic pain G89.29 and Pain in left knee M25.562 [facility] [address] [id number] [address] [place] [address] [id number] Oct, Dental examination Z01.20 [facility] [address] [id number] [address] [place] [address] 14 Oct, 2018 Cutaneous abscess of unspeci fied foot L02.619 and Cellulitis of unspecified part of limb L03.119 [facility] [place] [address] [id number] [address] [place] [address] 11 Oct, 2018 [facility] [address] [id number] [address] [place] [id number] 10 Oct, 2018 Type 1 diabetes mellitus wit h other diabetic neurological complication E10.49 [facility] [address] [id number] [address] [place] [address] [id number] 06 Oct, 2018 Dental examination Z01.20 an d Caries K02.9 [facility] [address] [id number] [address] [place] [id number] 04 Oct, 2018 Cutaneous abscess of left fo ot L02.612 and Cellulitis of left lower limb L03.116 [place] [address] [id number] [address] [place] [address] 04 Oct, 2018 Dental examination Z01.20 an d Pain, dental K08.89 [facility] [address] [facility] [id number] [address] [place] [address] Sep, Left foot pain M79.672 and L eft anterior knee pain M25.562 [facility] [address] [facility] [id number] [address] [place] [address] Sep, Type 1 diabetes mellitus wit h other diabetic neurological complication E10.49 [facility] [address] [facility] [id number] [address] [place] [id number] Sep, [facility] [address] [facility] [id number] [address] [place] [id number] 11 Aug, 2018 Type 1 diabetes mellitus wit h other diabetic neurological complication E10.49 [facility] [address] [place] [id number] [address] [place] [id number] 10 Aug, 2018 Encounter for immunization Z 23 [facility] [address] [facility] [id number] [address] [place] [address] 05 Aug, 2018 Type 1 diabetes mellitus wit h hyperglycemia E10.65 [facility] [address] [facility] [id number] [address] [place] [address] Jul, Type 1 diabetes mellitus wit h hyperglycemia E10.65 [facility] [address] [facility] [id number] [address] [place] [id number] Jul, [facility] [address] [facility] [id number] [address] [place] [id number] 18 Jul, 2018 [facility] [address] [facility] [id number] [address] [place] [address] Jul, Type 1 diabetes mellitus wit h other diabetic neurological complication E10.49 [facility] [address] [facility] [id number] [address] [place] [address] Jul, Type 1 diabetes mellitus wit h other diabetic neurological complication E10.49 and Mood disorder F39 [facility] [address] [facility] [id number] [address] [place] [address] Jun, [facility] [address] [facility] [id number] [address] [place] [address] Jun, Type 1 diabetes mellitus wit h other diabetic neurological complication E10.49 and Chronic fatigue R53.82 [facility] [address] [id number] [address] [place] [address] May, Type 1 diabetes mellitus wit h other diabetic neurological complication E10.49 [facility] [address] [facility] [id number] [address] [place] [address] May, [facility] [address] [facility] [id number] [address] [place] [address] May, [facility] [address] [facility] [id number] [address] [place] [address] Apr, [facility] [address] [facility] [id number] [address] [place] [address] Apr, Type 1 diabetes mellitus wit h other diabetic neurological complication E10.49 [facility] [address] [facility] [id number] [address] [place] [address] March, [facility] [address] [facility] [id number] [address] [place] [id number] Feb, [facility] [address] [facility] [id number] [address] [place] [id number] Feb, Type 1 diabetes mellitus wit h other diabetic neurological complication E10.49 ; Tobacco abuse Z72.0 and Tobacco abuse counseling Z71.6 [facility] [address] [facility] [id number] [address] [place] [address] Jan, Type 1 diabetes mellitus wit h hyperglycemia E10.65 [facility] [address] [facility] [id number] [address] [place] [address] Jan, [facility] [address] [facility] [id number] [address] [place] [address] Dec, Tobacco abuse Z72.0 [facility] [address] [facility] [id number] [address] [place] [address] Dec, Type 1 diabetes mellitus wit h hyperglycemia E10.65 [facility] [address] [facility] [id number] [address] [place] [address] Dec, Type 1 diabetes mellitus wit h hyperglycemia E10.65 ; Tobacco abuse Z72.0 and Tobacco abuse counseling Z71.6 [facility] [address] [facility] [id number] [address] [place] [address] Nov, Type 1 diabetes mellitus wit h hyperglycemia E10.65 [facility] [address] [facility] [id number] [address] [place] [id number] Oct, Type 1 diabetes mellitus wit h hyperglycemia E10.65 [facility] [address] [facility] [id number] [address] [place] [address] Oct, Type 1 diabetes mellitus wit h hyperglycemia E10.65 [facility] [address] [facility] [id number] [address] [place] [address] Sep, Type 1 diabetes mellitus wit h hyperglycemia E10.65 [facility] [address] [facility] [id number] [address] [place] [id number] Aug, Type 1 diabetes mellitus wit h hyperglycemia E10.65 [facility] [address] [facility] [id number] [address] [place] [address] Aug, [facility] [address] [facility] [id number] [address] [place] [address] Aug, Type 1 diabetes mellitus wit h hyperglycemia E10.65 [facility] [address] [facility] [id number] [address] [place] [id number] Aug, Encounter for immunization Z 23 [facility] [address] [facility] [id number] [address] [place] [address] Aug, Type 1 diabetes mellitus wit h hyperglycemia E10.65 [facility] [address] [facility] [id number] [address] [place] [address] Jul, Type 1 diabetes mellitus wit h hyperglycemia E10.65 [facility] [address] [facility] [id number] [address] [place] [address] Jul, Type 1 diabetes mellitus wit h hyperglycemia E10.65 [facility] [address] [id number] [address] [place] [address] May, Type 1 diabetes mellitus wit h hyperglycemia E10.65 [facility] [address] [id number] [address] [place] [address] May, [facility] [address] [id number] [address] [place] [address] Apr, [facility] [address] [id number] [address] [place] [address] Apr, Type 1 diabetes mellitus wit h hyperglycemia E10.65 [facility] [address] [id number] [address] [place] [id number] March, [facility] [address] [id number] [address] [place] [address] March, [facility] [address] [id number] [address] [place] [address] Jan, [facility] [address] [id number] [address] [place] [address] Jan, [facility] [address] [id number] [address] [place] [address] Jan, Type 1 diabetes mellitus wit diabetic polyneuropathy E10.42 [facility] [address] [id number] [address] [place] [address] Jan, Type 1 diabetes mellitus wit h hyperglycemia E10.65 ; Excessive cerumen in both ear canals H61.23 and Controlled diabetes mellitus type 1 without complications E10.9 [facility] [address] [id number] [address] [place] [address] Dec, [facility] [address] [id number] [address] [place] [address] Dec, [facility] [address] [facility] [id number] [address] [place] [address] Dec, [facility] [address] [id number] [address] [place] [id number] Dec, [facility] [address] [id number] [address] [place] [phone] Nov, [facility] [address] [id number] [address] [place] [id number] Nov, [facility] [address] [id number] [address] [place] [address] Oct, Type 1 diabetes mellitus wit h hyperglycemia E10.65 [facility] [address] [id number] [address] [place] [address] Sep, [facility] [address] [id number] [address] [place] [address] Sep, [facility] [address] [id number] [address] [place] [id number] Sep, Controlled diabetes mellitus type 1 without complications E10.9 [facility] [address] [id number] [address] [place] [address] Sep, [facility] [address] [id number] [address] [place] [address] [id number] Aug, Dental caries K02.9 [facility] [address] [id number] [address] [place] [address] Aug, Type 1 diabetes mellitus wit h diabetic polyneuropathy E10.42 [facility] [address] [id number] [address] [place] [address] Aug, [facility] [address] [id number] [address] [place] [address] Aug, [facility] [address] [id number] [address] [place] [id number] Aug, [facility] [address] [id number] [address] [place] [address] Jul, Type 1 diabetes mellitus wit h hyperglycemia E10.65 [facility] [address] [id number] [address] [place] [address] 23 Jul, 2016 Type 1 diabetes mellitus wit h hyperglycemia E10.65 ; Tooth pain K08.8 and Encounter for immunization Z23 [facility] [address] [id number] [address] [place] [address] [id number] 08 Jul, 2016 Dental examination Z01.20 [facility] [address] [id number] [address] [place] [id number] 08 Jul, 2016 [facility] [address] [id number] [address] [place] [id number] 07 Jul, 2016 [facility] [address] [id number] [address] [place] [address] Jul, [facility] [address] [id number] [address] [place] [id number] Jun, [facility] [address] [id number] [address] [place] [address] May, [facility] [address] [id number] [address] [place] [address] Apr, [facility] [address] [id number] [address] [place] [address] Apr, [facility] [address] [id number] [address] [place] [address] Apr, [facility] [address] [id number] [address] [place] [address] March, [facility] [address] [id number] [address] [place] [address] March, [facility] [address] [id number] [address] [place] [id number] Feb, [facility] [address] [id number] [address] [place] [address] Feb, [facility] [address] [id number] [address] [place] [address] Feb, Type 1 diabetes mellitus wit h hyperglycemia E10.65 [facility] [address] [facility] [id number] [address] [place] [address] Jan, [facility] [address] [facility] [id number] [address] [place] [address] Jan, [facility] [address] [facility] [id number] [address] [place] [address] Jan, [facility] [address] [facility] [id number] [address] [place] [address] Jan, [facility] [address] [facility] [id number] [address] [place] [address] Dec, [facility] [address] [facility] [id number] [address] [place] [address] Nov, [facility] [address] [facility] [id number] [address] [place] [address] Nov, [facility] [address] [facility] [id number] [address] [place] [address] Oct, [facility] [address] [facility] [id number] [address] [place] [address] Oct, Type 1 diabetes mellitus wit h 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 ; Type 1 diabetes mellitus with hyperglycemia E10.65 ; Gastroparesis K31.84 and Esophageal stricture K22.2 [facility] [address] [facility] [id number] [address] [place] [address] Oct, [facility] [address] [facility] [id number] [address] [place] [address] Sep, [facility] [address] [facility] [id number] [address] [place] [address] 13 Sep, 2015 Type 1 diabetes mellitus wit h other diabetic neurological complication E10.49 [facility] [address] [facility] [id number] [address] [place] [id number] 22 Aug, 2015 Encounter for immunization Z 23 [facility] [address] [place] [id number] [address] [place] [phone] Aug, [facility] [address] [id number] [address] [place] [id number] Aug, [facility] [address] [id number] [address] [place] [id number] Jul, [facility] [address] [id number] [address] [place] [id number] Jul, [facility] [address] [id number] [address] [place] [address] Jun, [facility] [address] [id number] [address] [place] [phone] Jun, [facility] [address] [id number] [address] [place] [id number] Jun, [facility] [address] [id number] [address] [place] [phone] May, [facility] [address] [id number] [address] [place] [address] May, [facility] [address] [id number] [address] [place] [address] May, Diabetes type 1, controlled 250.01 [facility] [address] [id number] [address] [place] [address] May, [facility] [address] [id number] [address] [place] [id number] May, [facility] [address] [id number] [address] [place] [address] [id number] Apr, Dental examination V72.2 [facility] [address] [id number] [address] [place] [id number] Apr, [facility] [address] [id number] [address] [place] [id number] Apr, [facility] [address] [id number] [address] [place] [id number] Apr, [facility] [address] [id number] [address] [place] [id number] Apr, [facility] [address] [id number] [address] [place] [id number] Apr, [facility] [address] [id number] [address] [place] [id number] Apr, Dental examination V72.2 [facility] [address] [id number] [address] [place] [id number] Apr, [facility] [address] [id number] [address] [place] [id number] Apr, [facility] [address] [id number] [address] [place] [id number] March, Diabetes mellitus type 1 250 .01 [facility] [address] [id number] [address] [place] [id number] March, [facility] [address] [id number] [address] [place] [id number] Feb, [facility] [address] [id number] [address] [place] [phone] Feb, [facility] [address] [id number] [address] [place] [phone] Jan, [facility] [address] [id number] [address] [place] [id number] Jan, [facility] [address] [id number] [address] [place] [id number] Jan, [facility] [address] [id number] [address] [place] [id number] Jan, [facility] [address] [id number] [address] [place] [id number] Dec, [facility] [address] [id number] [address] [place] [phone] Dec, [facility] [address] [id number] [address] [place] [address], [place] [id number] Nov, [facility] [address] [id number] [address] [place] [address], [place] [phone] Nov, [facility] [address] [id number] [address] [place] [address], [place] [id number] Nov, [facility] [address] [id number] [address] [place] [address], [place] [id number] Nov, [facility] [address] [id number] [address] [place] [address], [place] [id number] Nov, [facility] [address] [id number] [address] [place] [address], [place] [id number] Nov, [facility] [address] [id number] [address] [place] [address], [place] [id number] Nov, [facility] [address] [id number] [address] [place] [address], [place] [id number] Oct, [facility] [facility] [address] [id number] [address] [place] [address], [place] [address] Oct, [facility] [address] [id number] [address] [place] [address], [place] [address] Sep, [facility] [address] [id number] [address] [place] [address], [place] [address] Aug, [facility] [address] [id number] [address] [place] [address] Aug, [facility] [address] [id number] [address] [place] [address], [place] [address] Aug, [facility] [address] [id number] [address] [place] [address], [place] [address] Aug, [facility] [address] [id number] [address] [place] [address], [place] [address] Aug, [facility] [address] [id number] [address] [place] [address] Aug, [facility] [address] [id number] [address] [place] [address], [place] [address] Aug, [facility] [address] [id number] [address] [place] [address], [place] [address] Aug, [facility] [address] [id number] [address] [place] [address], [place] [address] Aug, [facility] [address] [id number] [address] [place] [address], [place] [address] Aug, [facility] [address] [id number] [address] [place] [address], [place] [address] Aug, [facility] [address] [id number] [address] [place] [address], [place] [address] Aug, [facility] [address] [id number] [address] [place] [address], [place] [address] Aug, [facility] [address] [id number] [address] [place] [address], [place] [address] Aug, [facility] [address] [id number] [address] [place] [address], [place] [address] Jul, [facility] [address] [id number] [address] [place] [address], [place] [address] Jul, [facility] [address] [id number] [address] [place] [address], [place] [address] Jul, [facility] [address] [id number] [address] [place] [address], [place] [address] Jul, [facility] [address] [id number] [address] [place] [address], [place] [address] Jun, [facility] [address] [id number] [address] [place] [address], [place] [address] Jun, [facility] [address] [id number] [address] [place] [address], [place] [address] Jun, [facility] [address] [id number] [facility] [place] [place] [address] Jun, [facility] [address] [id number] [facility] [place] [address] May, [facility] [address] [id number] [facility] [place] [place] [address] May, [facility] [address] [id number] [address] [place] [address], [place] [address] May, [facility] [address] [id number] [address] [place] [address], [place] [address] May, [facility] [address] [id number] [address] [place] [address], [place] [address] May, [facility] [address] [id number] [address] [place] [address], [place] [address] May, [facility] [address] [id number] [address] [place] [address], [place] [address] May, [facility] [address] [id number] [address] [place] [address], [place] [address] May, [facility] [address] [id number] [address] [place] [address], [place] [address] May, [facility] [address] [id number] [address] [place] [address], [place] [address] May, [facility] [address] [id number] [address] [place] [address], [place] [address] May, [facility] [address] [id number] [address] [place] [address], [place] [address] May, [facility] [address] [id number] [address] [place] [address], [place] [address] May, [facility] [address] [id number] [address] [place] [address], [place] [address] Apr, [facility] [address] [id number] [address] [place] [address], [place] [address] Apr, [facility] [address] [id number] [facility] [place] [address] Apr, [facility] [address] [id number] [facility] [place] [address] Apr, [facility] [address] [id number] [address] [place] [address], [place] [address] Apr, [facility] [address] [id number] [address] [place] [address], [place] [address] Apr, [facility] [address] [id number] [address] [place] [address], [place] [address] Apr, [facility] [address] [id number] [address] [place] [address], [place] [address] Apr, [facility] [address] [id number] [address] [place] [address], [place] [address] Apr, [facility] [address] [id number] [address] [place] [address], [place] [address] Apr, [facility] [address] [id number] [address] [place] [address], [place] [address] Apr, [facility] [address] [id number] [address] [place] [address], [place] [address] Apr, [facility] [address] [id number] [address] [place] [address], [place] [address] Apr, [facility] [address] [id number] [address] [place] [address], [place] [address] Apr, [facility] [address] [id number] [address] [place] [address], [place] [address] March, [facility] [address] [id number] [address] [place] [address], [place] [address] March, [facility] [address] [id number] [address] [place] [address], [place] [address] March, [facility] [address] [id number] [address] [place] [address], [place] [address] March, [facility] [address] [id number] [address] [place] [address], [place] [address] March, [facility] [address] [id number] [address] [place] [address], [place] [address] March, [facility] [address] [id number] [address] [place] [address], [place] [address] March, [facility] [address] [id number] [address] [place] [address], [place] [address] March, [facility] [address] [id number] [address] [place] [address], [place] [address] March, [facility] [address] [id number] [address] [place] [address], [place] [address] March, [facility] [address] [id number] [address] [place] [address], [place] [address] Feb, [facility] [address] [id number] [address] [place] [address], [place] [address] Feb, [facility] [address] [id number] [address] [place] [address], [place] [address] Feb, [facility] [address] [id number] [address] [place] [address], [place] [address] Feb, [facility] [address] [id number] [address] [place] [address], [place] [address] Feb, [facility] [address] [id number] [address] [place] [address], [place] [address] Feb, [facility] [address] [id number] [address] [place] [address], [place] [address] Feb, [facility] [address] [id number] [address] [place] [address], [place] [address] Feb, [facility] [address] [id number] [address] [place] [address], [place] [address] Jan, [facility] [address] [id number] [facility] [place] [address] 18 Jan, 2014 [facility] [address] [id number] [facility] [place] [address] Jan, [facility] [address] [id number] [facility] [place] [address] Jan, [facility] [address] [id number] [address] [place] [address], [place] [address] Jan, [facility] [address] [id number] [address] [place] [address], [place] [address] Jan, [facility] [address] [id number] [address] [place] [address], [place] [address] Jan, [facility] [address] [id number] [address] [place] [address], [place] [address] Jan, [facility] [address] [id number] [address] [place] [address], [place] [address] Jan, [facility] [address] [id number] [address] [place] [address], [place] [address] Jan, [facility] [address] [id number] [address] [place] [address], [place] [address] Dec, [facility] [address] [id number] [address] [place] [address], [place] [address] Dec, [facility] [address] [id number] [address] [place] [address], [place] [address] Nov, [facility] [address] [id number] [address] [place] [address], [place] [address] Nov, [facility] [address] [id number] [address] [place] [address], [place] [address] Nov, [facility] [address] [id number] [address] [place] [address], [place] [address] Nov, [facility] [address] [id number] [address] [place] [address], [place] [address] Nov, [facility] [address] [id number] [address] [place] [address], [place] [address] Nov, [facility] [address] [id number] [address] [place] [address], [place] [address] Nov, [facility] [address] [id number] [address] [place] [address], [place] [address] Nov, [facility] [address] [id number] [address] [place] [address], [place] [address] Oct, [facility] [address] [id number] [address] [place] [address], [place] [address] Oct, [facility] [address] [id number] [address] [place] [address], [place] [address] Oct, [facility] [address] [id number] [address] [place] [address], [place] [address] Oct, [facility] [address] [id number] [address] [place] [address], [place] [address] Oct, [facility] [address] [id number] [address] [place] [address], [place] [address] Oct, [facility] [address] [id number] [address] [place] [address], [place] [address] Sep, [facility] [address] [id number] [address] [place] [address], [place] [address] Sep, [facility] [address] [id number] [address] [place] [address], [place] [address] Sep, [facility] [address] [id number] [address] [place] [address], [place] [address] Sep, [facility] [address] [id number] [address] [place] [address], [place] [address] 05 Sep, 2013 [facility] [address] [id number] [address] [place] [address], [place] [address] 30 Aug, 2013 [facility] [address] [id number] [address] [place] [address], [place] [address] Aug, [facility] [address] [id number] [address] [place] [address], [place] [address] Aug, [facility] [address] [id number] [address] [place] [address], [place] [address] Aug, [facility] [address] [id number] [address] [place] [address], [place] [address] Aug, [facility] [address] [id number] [address] [place] [address], [place] [address] Aug, [facility] [address] [id number] [address] [place] [address], [place] [address] Jul, [facility] [address] [id number] [address] [place] [address], [place] [address] Jul, [facility] [address] [id number] [address] [place] [address], [place] [address] Jul, [facility] [address] [id number] [address] [place] [address], [place] [address] Jun, [facility] [address] [id number] [address] [place] [address], [place] [address] Jun, [facility] [address] [id number] [address] [place] [address], [place] [address] May, [facility] [address] [id number] [address] [place] [address], [place] [address] May, [facility] [address] [id number] [address] [place] [address], [place] [address] Apr, [facility] [address] [id number] [address] [place] [address], [place] [address] Apr, [facility] [address] [id number] [address] [place] [address], [place] [address] Apr, [facility] [address] [id number] [address] [place] [address], [place] [address] March, [facility] [address] [id number] [address] [place] [address], [place] [address] Feb, [facility] [address] [id number] [address] [place] [address], [place] [address] Feb, [facility] [address] [id number] [address] [place] [address], [place] [address] Jan, [facility] [address] [id number] [address] [place] [address], [place] [address] Jan, [facility] [address] [id number] [address] [place] [address], [place] [address] Jan, [facility] [address] [id number] [address] [place] [address], [place] [address] 08 Jan, 2013 [facility] [address] [id number] [address] [place] [address], [place] [address] Jan, [facility] [address] [id number] [address] [place] [address], [place] [address] Dec, [facility] [address] [id number] [address] [place] [address], [place] [address] Dec, [facility] [address] [id number] [address] [place] [address], [place] [address] Dec, [facility] [address] [id number] [address] [place] [address], [place] [address] Dec, [facility] [address] [id number] [address] [place] [address], [place] [address] Dec, [facility] [address] [id number] [address] [place] [address], [place] [address] Dec, [facility] [address] [place] [id number] Nov, [facility] [address] [id number] [address] [place] [address], [place] [address] Nov, [facility] [address] [id number] [address] [place] [address] [place] [address] Nov, [facility] [address] [id number] [address] [place] [address], [place] [address] Nov, [facility] [address] [id number] [address] [place] [address], [place] [address] Nov, [facility] [address] [id number] [address] [place] [address], [place] [address] Oct, [facility] [address] [id number] [address] [place] [address], [place] [address] Oct, [facility] [address] [id number] [address] [place] [address], [place] [address] Oct, [facility] [address] [id number] [address] [place] [address], [place] [address] Oct, [facility] [address] [id number] [address] [place] [address], [place] [address] Oct, [facility] [address] [id number] [address] [place] [address], [place] [address] Oct, [facility] [address] [id number] [address] [place] [address], [place] [address] Oct, [facility] [address] [id number] [address] [place] [address], [place] [address] Oct, [facility] [address] [id number] [address] [place] [address], [place] [address] Sep, [facility] [address] [id number] [address] [place] [address], [place] [address] Sep, [facility] [address] [id number] [address] [place] [address], [place] [address] Sep, [facility] [address] [id number] [address] [place] [address], [place] [address] Sep, [facility] [address] [id number] [address] [place] [address], [place] [address] 14 Sep, 2012 [facility] [address] [id number] [address] [place] [address] Sep, [facility] [address] [id number] [address] [place] [address] Sep, [facility] [address] [id number] [address] [place] [address] Sep, [facility] [address] [id number] [address] [place] [address] Sep, [facility] [address] [id number] [address] [place] [address] Sep, [facility] [address] [id number] [address] [place] [address] Sep, [facility] [address] [id number] [address] [place] [address] Sep, [facility] [address] [id number] [address] [place] [address] Sep, [facility] [address] [id number] [address] [place] [id number] Sep, [facility] [address] [id number] [address] [place] [id number] Sep, [facility] [address] [id number] [address] [place] [id number] Sep, IMMUNIZATIONS No Known Immunizations SOCIAL HISTORY [...]
--- OUTSIDE RECORDS SUMMARY | 2020-04-17 21:31 | XMS REPORT ---
Author Author Curt PATIÑO Organization [facility] Address [address] [place] [address] Care Team Providers Care [employer] Buyer Name Role Phone BISMARK PATIÑO Unavailable PROBLEMS Type Condition ICD9-CM Code CUW95-CY Code Onset Dates Condition S tatus SNOMED Code Problem Hypertension, essential I10 Active 73233279 Problem Gastroparesis K31.84 Active 784067 006 Problem Type 1 diabetes mellitus with other diab etic neurological complication E10.49 Active 07759983 Problem Controlled diabetes mellitus type 1 without complications E10.9 Active 41906477 Problem Mood disorder F39 Active 939180 05 Problem Other chronic pain G89.29 Active 8 1698968 Problem 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 [address] [facility] [id number] [address] [place] [phone] Jul, Type 1 diabetes mellitus wit h hyperglycemia E10.65 [facility] [address] [facility] [id number] [address] [place] [phone] Jun, Type 1 diabetes mellitus wit h other diabetic neurological complication E10.49 [facility] [address] [facility] [id number] [address] [place] [phone] May, [facility] [address] [facility] [id number] [address] [place] [phone] May, [facility] [address] [facility] [id number] [address] [place] [phone] May, Other chronic pain G89.29 [facility] [address] [facility] [id number] [address] [place] [phone] May, [facility] [address] [facility] [id number] [address] [place] [phone] May, Type 1 diabetes mellitus wit h other diabetic neurological complication E10.49 [facility] [address] [facility] [id number] [address] [place] [phone] Apr, [facility] [address] [facility] [id number] [address] [place] [phone] Apr, Type 1 diabetes mellitus wit h other diabetic neurological complication E10.49 [facility] [address] [facility] [id number] [address] [place] [phone] Apr, Encounter for Medicare annua l wellness exam Z00.00 [facility] [address] [facility] [id number] [address] [place] [phone] March, Encounter for Medicare annua l wellness exam Z00.00 and Type 1 diabetes mellitus with other diabetic neurological complication E10.49 [facility] [address] [facility] [id number] [address] [place] [phone] Feb, Type 1 diabetes mellitus wit h other diabetic neurological complication E10.49 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 [address] [facility] [id number] [address] [place] [phone] Jan, Type 1 diabetes mellitus wit h other diabetic neurological complication E10.49 [facility] [address] [facility] [id number] [address] [place] [phone] Jan, [facility] [address] [facility] [id number] [address] [place] [phone] Jan, Other chronic pain G89.29 [facility] [address] [facility] [id number] [address] [place] [phone] Dec, [facility] [address] [id number] [address] [place] [phone] 08 Dec, 2018 Type 1 diabetes mellitus wit h other diabetic neurological complication E10.49 [facility] [address] [id number] [address] [place] [phone] 05 Dec, 2018 Other chronic pain G89.29 [facility] [address] [id number] [address] [place] [phone] Nov, [facility] [address] [id number] [address] [place] [address] [id number] Nov, Caries K02.9 [facility] [address] [facility] [id number] [address] [place] [phone] 15 Nov, 2018 Type 1 diabetes mellitus wit h other diabetic neurological complication E10.49 [place] [address] [facility] [id number] [address] [place] [phone] Nov, Controlled diabetes mellitus type 1 without complications E10.9 ; Other chronic pain G89.29 and Pain in left knee M25.562 [facility] [address] [id number] [address] [place] [address] [id number] Oct, Dental examination Z01.20 [facility] [address] [facility] [id number] [address] [place] [phone] 14 Oct, 2018 Cutaneous abscess of unspeci fied foot L02.619 and Cellulitis of unspecified part of limb L03.119 [facility] [address] [id number] [address] [place] [phone] 11 Oct, 2018 [facility] [address] [id number] [address] [place] [phone] Oct, Type 1 diabetes mellitus wit h other diabetic neurological complication E10.49 [facility] [address] [facility] [id number] [address] [place] [address] [id number] 06 Oct, 2018 Dental examination Z01.20 an d Caries K02.9 [facility] [address] [id number] [address] [place] [phone] Oct, Cutaneous abscess of left fo ot L02.612 and Cellulitis of left lower limb L03.116 [facility] [address] [facility] [id number] [address] [place] [phone] Oct, Dental examination Z01.20 an d Pain, dental K08.89 [facility] [address] [facility] [id number] [address] [place] [phone] Sep, Left foot pain M79.672 and L eft anterior knee pain M25.562 [facility] [address] [facility] [id number] [address] [place] [phone] Sep, Type 1 diabetes mellitus wit h other diabetic neurological complication E10.49 [facility] [address] [facility] [id number] [address] [place] [phone] Sep, [facility] [address] [facility] [id number] [address] [place] [phone] 11 Aug, 2018 Type 1 diabetes mellitus wit h other diabetic neurological complication E10.49 [facility] [address] [facility] [id number] [address] [place] [id number] 10 Aug, 2018 Encounter for immunization Z 23 [facility] [address] [facility] [id number] [address] [place] [phone] 05 Aug, 2018 Type 1 diabetes mellitus wit h hyperglycemia E10.65 [facility] [address] [facility] [id number] [address] [place] [phone] Jul, Type 1 diabetes mellitus wit h hyperglycemia E10.65 [facility] [address] [facility] [id number] [address] [place] [phone] Jul, [facility] [address] [facility] [id number] [address] [place] [phone] 18 Jul, 2018 [facility] [address] [facility] [id number] [address] [place] [phone] 17 Jul, 2018 Type 1 diabetes mellitus wit h other diabetic neurological complication E10.49 [facility] [address] [facility] [id number] [address] [place] [phone] Jul, Type 1 diabetes mellitus wit h other diabetic neurological complication E10.49 and Mood disorder F39 [facility] [address] [id number] [address] [place] [phone] Jun, [facility] [address] [facility] [id number] [address] [place] [phone] Jun, Type 1 diabetes mellitus wit h other diabetic neurological complication E10.49 and Chronic fatigue R53.82 [facility] [address] [id number] [address] [place] [phone] May, Type 1 diabetes mellitus wit h other diabetic neurological complication E10.49 [facility] [address] [id number] [address] [place] [phone] May, [facility] [address] [facility] [id number] [address] [place] [phone] May, [facility] [address] [facility] [id number] [address] [place] [phone] Apr, [facility] [address] [facility] [id number] [address] [place] [phone] Apr, Type 1 diabetes mellitus wit h other diabetic neurological complication E10.49 [facility] [address] [id number] [address] [place] [phone] March, [facility] [address] [facility] [id number] [address] [place] [phone] Feb, [facility] [address] [facility] [id number] [address] [place] [phone] Feb, Type 1 diabetes mellitus wit h other diabetic neurological complication E10.49 ; Tobacco abuse Z72.0 and Tobacco abuse counseling Z71.6 [facility] [address] [facility] [id number] [address] [place] [phone] Jan, Type 1 diabetes mellitus wit h hyperglycemia E10.65 [facility] [address] [facility] [id number] [address] [place] [phone] Jan, [facility] [address] [facility] [id number] [address] [place] [phone] Dec, Tobacco abuse Z72.0 [facility] [address] [facility] [id number] [address] [place] [id number] Dec, Type 1 diabetes mellitus wit h hyperglycemia E10.65 [facility] [address] [facility] [id number] [address] [place] [phone] Dec, Type 1 diabetes mellitus wit h hyperglycemia E10.65 ; Tobacco abuse Z72.0 and Tobacco abuse counseling Z71.6 [facility] [address] [facility] [id number] [address] [place] [phone] Nov, Type 1 diabetes mellitus wit h hyperglycemia E10.65 [facility] [address] [facility] [id number] [address] [place] [phone] Oct, Type 1 diabetes mellitus wit h hyperglycemia E10.65 [facility] [address] [facility] [id number] [address] [place] [phone] Oct, Type 1 diabetes mellitus wit h hyperglycemia E10.65 [facility] [address] [facility] [id number] [address] [place] [phone] Sep, Type 1 diabetes mellitus wit h hyperglycemia E10.65 [facility] [address] [facility] [id number] [address] [place] [phone] Aug, Type 1 diabetes mellitus wit h hyperglycemia E10.65 [facility] [address] [facility] [id number] [address] [place] [phone] Aug, [facility] [address] [facility] [id number] [address] [place] [phone] Aug, Type 1 diabetes mellitus wit h hyperglycemia E10.65 [facility] [address] [facility] [id number] [address] [place] [phone] Aug, Encounter for immunization Z 23 [facility] [address] [facility] [id number] [address] [place] [phone] Aug, Type 1 diabetes mellitus wit h hyperglycemia E10.65 [facility] [address] [id number] [address] [place] [phone] Jul, Type 1 diabetes mellitus wit h hyperglycemia E10.65 [facility] [address] [id number] [address] [place] [phone] Jul, Type 1 diabetes mellitus wit h hyperglycemia E10.65 [facility] [address] [id number] [address] [place] [phone] May, Type 1 diabetes mellitus wit h hyperglycemia E10.65 [facility] [address] [id number] [address] [place] [phone] May, [facility] [address] [id number] [address] [place] [phone] Apr, [facility] [address] [id number] [address] [place] [phone] Apr, Type 1 diabetes mellitus wit h hyperglycemia E10.65 [facility] [address] [id number] [address] [place] [phone] March, [facility] [address] [id number] [address] [place] [phone] March, [facility] [address] [id number] [address] [place] [phone] Jan, [facility] [address] [id number] [address] [place] [phone] Jan, [facility] [address] [id number] [address] [place] [phone] Jan, Type 1 diabetes mellitus wit diabetic polyneuropathy E10.42 [facility] [address] [id number] [address] [place] [phone] Jan, Type 1 diabetes mellitus wit h hyperglycemia E10.65 ; Excessive cerumen in both ear canals H61.23 and Controlled diabetes mellitus type 1 without complications E10.9 [facility] [address] [id number] [address] [place] [phone] Dec, [facility] [address] [id number] [address] [place] [id number] Dec, [facility] [address] [id number] [address] [place] [phone] Dec, [facility] [address] [id number] [address] [place] [phone] Dec, [facility] [address] [id number] [address] [place] [phone] Nov, [facility] [address] [id number] [address] [place] [phone] Nov, [facility] [address] [id number] [address] [place] [phone] Oct, Type 1 diabetes mellitus wit h hyperglycemia E10.65 [facility] [address] [id number] [address] [place] [phone] Sep, [facility] [address] [id number] [address] [place] [phone] Sep, [facility] [address] [id number] [address] [place] [phone] Sep, Controlled diabetes mellitus type 1 without complications E10.9 [facility] [address] [id number] [address] [place] [phone] Sep, [facility] [address] [id number] [address] [place] [address] [id number] Aug, Dental caries K02.9 [facility] [address] [id number] [address] [place] [phone] Aug, Type 1 diabetes mellitus wit h diabetic polyneuropathy E10.42 [facility] [address] [id number] [address] [place] [phone] Aug, [facility] [address] [facility] [id number] [address] [place] [phone] Aug, [facility] [address] [id number] [address] [place] [phone] Aug, [facility] [address] [id number] [address] [place] [id number] Jul, Type 1 diabetes mellitus wit h hyperglycemia E10.65 [facility] [address] [id number] [address] [place] [phone] Jul, Type 1 diabetes mellitus wit h hyperglycemia E10.65 ; Tooth pain K08.8 and Encounter for immunization Z23 [facility] [address] [id number] [address] [place] [address] [id number] 08 Jul, 2016 Dental examination Z01.20 [facility] [address] [id number] [address] [place] [phone] Jul, [facility] [address] [id number] [address] [place] [phone] Jul, [facility] [address] [id number] [address] [place] [phone] Jul, [facility] [address] [id number] [address] [place] [phone] Jun, [facility] [address] [id number] [address] [place] [id number] May, [facility] [address] [id number] [address] [place] [phone] Apr, [facility] [address] [id number] [address] [place] [phone] Apr, [facility] [address] [id number] [address] [place] [phone] Apr, [facility] [address] [id number] [address] [place] [phone] March, [facility] [address] [id number] [address] [place] [phone] March, [facility] [address] [id number] [address] [place] [phone] Feb, [facility] [address] [id number] [address] [place] [phone] Feb, [facility] [address] [facility] [id number] [address] [place] [phone] Feb, Type 1 diabetes mellitus wit h hyperglycemia E10.65 [facility] [address] [facility] [id number] [address] [place] [phone] Jan, [facility] [address] [id number] [address] [place] [id number] Jan, [facility] [address] [facility] [id number] [address] [place] [phone] Jan, [facility] [address] [facility] [id number] [address] [place] [id number] Jan, [facility] [address] [facility] [id number] [address] [place] [id number] Dec, [facility] [address] [facility] [id number] [address] [place] [phone] Nov, [facility] [address] [facility] [id number] [address] [place] [id number] Nov, [facility] [address] [facility] [id number] [address] [place] [id number] Oct, [facility] [address] [facility] [id number] [address] [place] [phone] 04 Oct, 2015 Type 1 diabetes mellitus wit h 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 ; Type 1 diabetes mellitus with hyperglycemia E10.65 ; Gastroparesis K31.84 and Esophageal stricture K22.2 [facility] [address] [facility] [id number] [address] [place] [id number] Oct, [facility] [address] [facility] [id number] [address] [place] [id number] Sep, [facility] [address] [id number] [address] [place] [id number] Sep, Type 1 diabetes mellitus wit h other diabetic neurological complication E10.49 [facility] [address] [id number] [address] [place] [phone] Aug, Encounter for immunization Z 23 [facility] [address] [id number] [address] [place] [phone] Aug, [facility] [address] [id number] [address] [place] [phone] Aug, [facility] [address] [id number] [address] [place] [id number] Jul, [facility] [address] [id number] [address] [place] [id number] Jul, [facility] [address] [id number] [address] [place] [id number] Jun, [facility] [address] [id number] [address] [place] [id number] Jun, [facility] [address] [id number] [address] [place] [id number] Jun, [facility] [address] [id number] [address] [place] [phone] May, [facility] [address] [id number] [address] [place] [phone] May, [facility] [address] [id number] [address] [place] [id number] May, Diabetes type 1, controlled 250.01 [facility] [address] [id number] [address] [place] [id number] May, [facility] [address] [facility] [id number] [address] [place] [id number] May, [facility] [address] [id number] [address] [place] [address] [id number] Apr, Dental examination V72.2 [facility] [address] [id number] [address] [place] [address] Apr, [facility] [address] [id number] [address] [place] [address] Apr, [facility] [address] [id number] [address] [place] [id number] Apr, [facility] [address] [id number] [address] [place] [id number] Apr, [facility] [address] [id number] [address] [place] [id number] Apr, [facility] [address] [id number] [address] [place] [id number] Apr, Dental examination V72.2 [facility] [address] [id number] [address] [place] [id number] Apr, [facility] [address] [id number] [address] [place] [id number] Apr, [facility] [address] [id number] [address] [place] [id number] March, Diabetes mellitus type 1 250 .01 [facility] [address] [id number] [address] [place] [id number] March, [facility] [address] [id number] [address] [place] [id number] Feb, [facility] [address] [id number] [address] [place] [phone] Feb, [facility] [address] [id number] [address] [place] [id number] Jan, [facility] [address] [id number] [address] [place] [id number] Jan, [facility] [address] [id number] [address] [place] [id number] Jan, [facility] [address] [id number] [address] [place] [address], [place] [address] Jan, [facility] [address] [id number] [address] [place] [address], [place] [address] Dec, [facility] [address] [id number] [address] [place] [address], [place] [address] Dec, [facility] [address] [id number] [address] [place] [address], [place] [address] Nov, [facility] [address] [id number] [address] [place] [address], [place] [address] Nov, [facility] [address] [id number] [address] [place] [address], [place] [address] Nov, [facility] [address] [id number] [address] [place] [address], [place] [address] Nov, [facility] [address] [id number] [address] [place] [address], [place] [address] Nov, [facility] [address] [id number] [address] [place] [address], [place] [address] Nov, [facility] [address] [id number] [address] [place] [address], [place] [address] Nov, [facility] [address] [id number] [address] [place] [address], [place] [address] Oct, [facility] [address] [id number] [address] [place] [address], [place] [address] Oct, [facility] [address] [id number] [address] [place] [address], [place] [address] Sep, [facility] [address] [id number] [address] [place] [address], [place] [address] Aug, [facility] [address] [id number] [address] [place] [address], [place] [address] Aug, [facility] [address] [id number] [address] [place] [address], [place] [address] Aug, [facility] [address] [id number] [address] [place] [address], [place] [address] Aug, [facility] [address] [id number] [address] [place] [address], [place] [address] Aug, [facility] [address] [id number] [address] [place] [address], [place] [address] Aug, [facility] [address] [id number] [address] [place] [address], [place] [address] Aug, [facility] [address] [id number] [address] [place] [address], [place] [address] Aug, [facility] [address] [id number] [address] [place] [address], [place] [address] Aug, [facility] [address] [id number] [address] [place] [address], [place] [address] Aug, [facility] [address] [id number] [address] [place] [address], [place] [address] Aug, [facility] [address] [id number] [address] [place] [address], [place] [address] Aug, [facility] [address] [id number] [address] [place] [address], [place] [address] Aug, [facility] [address] [id number] [address] [place] [address], [place] [address] Aug, [facility] [address] [id number] [address] [place] [address], [place] [address] Jul, [facility] [address] [id number] [address] [place] [address], [place] [address] Jul, [facility] [address] [id number] [address] [place] [address], [place] [address] Jul, 2013 [facility] [address] [id number] [address] [place] [address], [place] [address] Jul, 2013 [facility] [address] [id number] [address] [place] [address] [place] [address] Jun, [facility] [address] [id number] [facility] [place] [address] Jun, [facility] [address] [id number] [address] [place] [address], [place] [address] Jun, [facility] [address] [id number] [address] [place] [address], [place] [address] Jun, [facility] [address] [id number] [address] [place] [address], [place] [address] May, [facility] [address] [id number] [address] [place] [address], [place] [address] May, [facility] [address] [id number] [address] [place] [address], [place] [address] May, [facility] [address] [id number] [address] [place] [address], [place] [address] May, [facility] [address] [id number] [address] [place] [address], [place] [address] May, [facility] [address] [id number] [address] [place] [address], [place] [address] May, [facility] [address] [id number] [address] [place] [address], [place] [address] May, [facility] [address] [id number] [address] [place] [address], [place] [address] May, [facility] [address] [id number] [address] [place] [address], [place] [address] May, [facility] [address] [id number] [address] [place] [address], [place] [address] May, [facility] [address] [id number] [address] [place] [address], [place] [address] May, [facility] [address] [id number] [address] [place] [address], [place] [address] May, [facility] [address] [id number] [facility] [place] [address] May, [facility] [address] [id number] [facility] [place] [address] Apr, [facility] [address] [id number] [facility] [place] [address] Apr, [facility] [address] [id number] [facility] [place] [address] Apr, [facility] [address] [id number] [address] [place] [address], [place] [address] Apr, [facility] [address] [id number] [address] [place] [address], [place] [address] Apr, [facility] [address] [id number] [address] [place] [address], [place] [address] Apr, [facility] [address] [id number] [address] [place] [address], [place] [address] Apr, [facility] [address] [id number] [address] [place] [address], [place] [address] Apr, [facility] [address] [id number] [address] [place] [address], [place] [address] Apr, [facility] [address] [id number] [address] [place] [address], [place] [address] Apr, [facility] [address] [id number] [address] [place] [address], [place] [address] Apr, [facility] [address] [id number] [address] [place] [address], [place] [address] Apr, [facility] [address] [id number] [address] [place] [address], [place] [address] Apr, [facility] [address] [id number] [address] [place] [address], [place] [address] Apr, [facility] [address] [id number] [address] [place] [address], [place] [address] March, [facility] [address] [id number] [facility] [place] [address] March, [facility] [address] [id number] [address] [place] [address], [place] [address] March, [facility] [address] [id number] [address] [place] [address], [place] [address] March, [facility] [address] [id number] [address] [place] [address], [place] [address] March, [facility] [address] [id number] [address] [place] [address], [place] [address] March, [facility] [address] [id number] [address] [place] [address], [place] [address] March, [facility] [address] [id number] [address] [place] [address], [place] [address] March, [facility] [address] [id number] [address] [place] [address], [place] [address] March, [facility] [address] [id number] [address] [place] [address], [place] [address] March, [facility] [address] [id number] [address] [place] [address], [place] [address] Feb, [facility] [address] [id number] [address] [place] [address], [place] [address] Feb, [facility] [address] [id number] [address] [place] [address], [place] [address] Feb, [facility] [address] [id number] [address] [place] [address], [place] [address] Feb, [facility] [address] [id number] [address] [place] [address], [place] [address] Feb, [facility] [address] [id number] [address] [place] [address], [place] [address] Feb, [facility] [address] [id number] [facility] [place] [address] Feb, [facility] [address] [id number] [address] [place] [address], [place] [address] Feb, [facility] [address] [id number] [facility] [place] [address] Jan, [facility] [address] [id number] [address] [place] [address], [place] [address] Jan, [facility] [address] [id number] [address] [place] [address], [place] [address] Jan, [facility] [address] [id number] [address] [place] [address], [place] [address] Jan, [facility] [address] [id number] [address] [place] [address], [place] [address] Jan, [facility] [address] [id number] [address] [place] [address], [place] [address] Jan, [facility] [address] [id number] [address] [place] [address], [place] [address] Jan, [facility] [address] [id number] [address] [place] [address], [place] [address] Jan, [facility] [address] [id number] [address] [place] [address], [place] [address] Jan, [facility] [address] [id number] [address] [place] [address], [place] [address] Jan, [facility] [address] [id number] [address] [place] [address], [place] [address] Dec, [facility] [address] [id number] [address] [place] [address], [place] [address] Dec, [facility] [address] [id number] [address] [place] [address], [place] [address] Nov, [facility] [address] [id number] [address] [place] [address], [place] [address] Nov, [facility] [address] [id number] [address] [place] [address], [place] [address] Nov, [facility] [address] [id number] [address] [place] [address], [place] [address] Nov, [facility] [address] [id number] [address] [place] [address], [place] [address] Nov, [facility] [address] [id number] [address] [place] [address], [place] [address] Nov, [facility] [address] [id number] [address] [place] [address], [place] [address] Nov, [facility] [address] [id number] [address] [place] [address], [place] [address] Nov, [facility] [address] [id number] [address] [place] [address], [place] [address] Oct, [facility] [address] [id number] [address] [place] [address], [place] [address] Oct, [facility] [address] [id number] [address] [place] [address], [place] [address] Oct, [facility] [address] [id number] [address] [place] [address], [place] [address] Oct, [facility] [address] [id number] [address] [place] [address], [place] [address] Oct, [facility] [address] [id number] [address] [place] [address] Oct, [facility] [address] [id number] [address] [place] [address], [place] [address] Sep, [facility] [address] [id number] [address] [place] [address], [place] [address] Sep, [facility] [address] [id number] [address] [place] [address] Sep, [facility] [address] [id number] [address] [place] [address], [place] [address] Sep, [facility] [address] [id number] [address] [place] [address], [place] [address] Sep, [facility] [address] [id number] [address] [place] [address], [place] [address] Aug, [facility] [address] [id number] [address] [place] [address], [place] [address] Aug, [facility] [address] [id number] [address] [place] [address], [place] [address] Aug, [facility] [address] [id number] [address] [place] [address], [place] [address] Aug, [facility] [address] [id number] [address] [place] [address], [place] [address] Aug, [facility] [address] [id number] [address] [place] [address], [place] [address] Aug, [facility] [address] [id number] [address] [place] [address], [place] [address] Jul, [facility] [address] [id number] [address] [place] [address], [place] [address] Jul, [facility] [address] [id number] [address] [place] [address], [place] [address] Jul, [facility] [address] [id number] [address] [place] [address], [place] [address] Jun, [facility] [address] [id number] [address] [place] [address], [place] [address] Jun, [facility] [address] [id number] [address] [place] [address], [place] [address] May, [facility] [address] [id number] [address] [place] [address], [place] [address] May, [facility] [address] [id number] [address] [place] [address], [place] [address] Apr, [facility] [address] [id number] [address] [place] [address], [place] [address] 07 Apr, 2013 [facility] [address] [id number] [address] [place] [address], [place] [address] 06 Apr, 2013 [facility] [address] [id number] [address] [place] [address], [place] [address] March, [facility] [address] [id number] [address] [place] [address], [place] [address] Feb, [facility] [address] [id number] [address] [place] [address], [place] [address] Feb, [facility] [address] [id number] [address] [place] [address], [place] [address] Jan, [facility] [address] [id number] [address] [place] [address], [place] [address] Jan, [facility] [address] [id number] [address] [place] [address], [place] [address] Jan, [facility] [address] [id number] [address] [place] [address], [place] [address] 08 Jan, 2013 [facility] [address] [id number] [address] [place] [address], [place] [address] Jan, [facility] [address] [id number] [address] [place] [address], [place] [address] 28 Dec, 2012 [facility] [address] [id number] [address] [place] [address], [place] [address] 27 Dec, 2012 [facility] [address] [id number] [address] [place] [address], [place] [address] 18 Dec, 2012 [facility] [address] [id number] [address] [place] [address], [place] [address] 11 Dec, 2012 [facility] [address] [id number] [address] [place] [address], [place] [address] 05 Dec, 2012 [facility] [address] [id number] [address] [place] [address], [place] [address] 05 Dec, 2012 [facility] [address] [place] [id number] 14 Nov, 2012 [facility] [address] [id number] [address] [place] [address], [place] [address] Nov, [facility] [address] [id number] [address] [place] [address], [place] [address] Nov, [facility] [address] [id number] [address] [place] [address], [place] [address] Nov, [facility] [address] [id number] [address] [place] [address], [place] [address] Nov, [facility] [address] [id number] [address] [place] [address], [place] [address] Oct, [facility] [address] [id number] [address] [place] [address], [place] [address] Oct, [facility] [address] [id number] [address] [place] [address], [place] [address] Oct, [facility] [address] [id number] [address] [place] [address], [place] [address] Oct, [facility] [address] [id number] [address] [place] [address], [place] [address] Oct, [facility] [address] [id number] [address] [place] [address], [place] [address] Oct, [facility] [address] [id number] [address] [place] [address], [place] [address] Oct, [facility] [address] [id number] [address] [place] [address], [place] [address] Oct, [facility] [address] [id number] [address] [place] [address], [place] [address] Sep, [facility] [address] [id number] [address] [place] [address], [place] [address] Sep, [facility] [address] [id number] [address] [place] [phone] Sep, [facility] [address] [id number] [address] [place] [phone] Sep, [facility] [address] [id number] [address] [place] [phone] Sep, [facility] [address] [id number] [address] [place] [phone] Sep, [facility] [address] [id number] [address] [place] [phone] Sep, [facility] [address] [id number] [address] [place] [id number] Sep, [facility] [address] [id number] [address] [place] [phone] Sep, [facility] [address] [id number] [address] [place] [phone] Sep, [facility] [address] [id number] [address] [place] [phone] Sep, [facility] [address] [id number] [address] [place] [id number] Sep, [facility] [address] [id number] [address] [place] [phone] Sep, [facility] [address] [id number] [address] [place] [phone] Sep, [facility] [address] [id number] [address] [place] [id number] Sep, [facility] [address] [id number] [address] [place] [phone] Sep, IMMUNIZATIONS No Known Immunizations SOCIAL HISTORY Never Assessed REASON FOR VISIT PLAN OF CARE VITAL SIGNS MEDICATIONS No Known Medications RESULTS No Results PROCEDURES No Known procedures INSTRUCTIONS MEDICATIONS ADMINISTERED No Known Medications MEDICAL (GENERAL) HISTORY Type Description Date Medical History hypertension Medical History type I diabetes Medical History chronic renal insufficiency Surgical History gastric pacemaker 2008 Hospitalization History nausea 2011
--- OUTSIDE RECORDS SUMMARY | 2020-04-17 21:32 | XMS REPORT ---
Author Author Curt Barr Doctor Organization [facility] Address Unknown Phone Unavailable Care Team Providers Care Net Making Supervisor Name Role Phone Migration, Doctor Unavailable Unavailable PROBLEMS Type Condition ICD9-CM Code BVT07-IJ Code Onset Dates Condition S tatus SNOMED Code Problem Hypertension, essential I10 Active 37290790 Problem Gastroparesis K31.84 Active 010095 006 Problem Type 1 diabetes mellitus with other diab etic neurological complication E10.49 Active 91365393 Problem Controlled diabetes mellitus type 1 without complications E10.9 Active 85190071 Problem Mood disorder F39 Active 576723 05 Problem Other chronic pain G89.29 Active 8 9859296 Problem 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 Active 18687275 Problem Type 1 diabetes mellitus with hyperglycemia E10.65 Active [id number] Problem Type 1 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 Active 31466327 Problem Chronic fatigue R53.82 Active 8422 9001 ALLERGIES No Information ENCOUNTERS Encounter Location Date Diagnosis [facility] [address] [facility] [id number] [address] [place] [id number] May, [facility] [address] [facility] [id number] [address] [place] [id number] May, [facility] [address] [facility] [id number] [address] [place] [id number] May, Other chronic pain G89.29 [facility] [address] [facility] [id number] [address] [place] [id number] May, [facility] [address] [facility] [id number] [address] [place] [id number] May, Type 1 diabetes mellitus wit h other diabetic neurological complication E10.49 [facility] [address] [facility] [id number] [address] [place] [id number] Apr, [facility] [address] [facility] [id number] [address] [place] [id number] Apr, Type 1 diabetes mellitus wit h other diabetic neurological complication E10.49 [facility] [address] [id number] [address] [place] [id number] Apr, Encounter for Medicare annua l wellness exam Z00.00 [facility] [address] [facility] [id number] [address] [place] [id number] March, Encounter for Medicare annua l wellness exam Z00.00 and Type 1 diabetes mellitus with other diabetic neurological complication E10.49 [facility] [address] [id number] [address] [place] [id number] Feb, Type 1 diabetes mellitus wit h other diabetic neurological complication E10.49 [facility] [address] [facility] [id number] [address] [place] [id number] Feb, Encounter for Medicare annua l wellness exam Z00.00 ; Mood disorder F39 ; Type 1 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 ; Hypertension, essential I10 and Chronic fatigue R53.82 [facility] [address] [id number] [address] [place] [id number] Jan, Type 1 diabetes mellitus wit h other diabetic neurological complication E10.49 [facility] [address] [facility] [id number] [address] [place] [id number] Jan, [facility] [address] [id number] [address] [place] [id number] Jan, Other chronic pain G89.29 [facility] [address] [id number] [address] [place] [id number] Dec, [facility] [address] [id number] [address] [place] [id number] 08 Dec, 2018 Type 1 diabetes mellitus wit h other diabetic neurological complication E10.49 [facility] [address] [id number] [address] [place] [id number] 05 Dec, 2018 Other chronic pain G89.29 [facility] [address] [id number] [address] [place] [id number] Nov, [facility] [address] [id number] [address] [place] [address] [id number] Nov, Caries K02.9 [facility] [address] [id number] [address] [place] [id number] 15 Nov, 2018 Type 1 diabetes mellitus wit h other diabetic neurological complication E10.49 [facility] [address] [id number] [address] [place] [id number] 07 Nov, 2018 Controlled diabetes mellitus type 1 without complications E10.9 ; Other chronic pain G89.29 and Pain in left knee M25.562 [facility] [address] [id number] [address] [place] [address] [id number] Oct, Dental examination Z01.20 [facility] [address] [facility] [id number] [address] [place] [id number] 14 Oct, 2018 Cutaneous abscess of unspeci fied foot L02.619 and Cellulitis of unspecified part of limb L03.119 [facility] [address] [id number] [address] [place] [id number] 11 Oct, 2018 [facility] [address] [facility] [id number] [address] [place] [id number] 10 Oct, 2018 Type 1 diabetes mellitus wit h other diabetic neurological complication E10.49 [facility] [address] [id number] [address] [place] [address] [id number] 06 Oct, 2018 Dental examination Z01.20 an d Caries K02.9 [facility] [address] [id number] [address] [place] [id number] 04 Oct, 2018 Cutaneous abscess of left fo ot L02.612 and Cellulitis of left lower limb L03.116 [facility] [address] [facility] [id number] [address] [place] [id number] 04 Oct, 2018 Dental examination Z01.20 an d Pain, dental K08.89 [facility] [address] [id number] [address] [place] [id number] Sep, Left foot pain M79.672 and L eft anterior knee pain M25.562 [facility] [address] [facility] [id number] [address] [place] [id number] Sep, Type 1 diabetes mellitus wit h other diabetic neurological complication E10.49 [facility] [address] [facility] [id number] [address] [place] [id number] Sep, [facility] [address] [facility] [id number] [address] [place] [id number] Aug, Type 1 diabetes mellitus wit h other diabetic neurological complication E10.49 [facility] [address] [place] [id number] [address] [place] [id number] 10 Aug, 2018 Encounter for immunization Z 23 [facility] [address] [facility] [id number] [address] [place] [id number] 05 Aug, 2018 Type 1 diabetes mellitus wit h hyperglycemia E10.65 [facility] [address] [place] [id number] [address] [place] [id number] Jul, Type 1 diabetes mellitus wit h hyperglycemia E10.65 [facility] [address] [facility] [id number] [address] [place] [id number] Jul, [facility] [address] [facility] [id number] [address] [place] [id number] Jul, [facility] [address] [facility] [id number] [address] [place] [id number] Jul, Type 1 diabetes mellitus wit h other diabetic neurological complication E10.49 [facility] [address] [facility] [id number] [address] [place] [id number] Jul, Type 1 diabetes mellitus wit h other diabetic neurological complication E10.49 and Mood disorder F39 [facility] [address] [facility] [id number] [address] [place] [id number] Jun, [facility] [address] [facility] [id number] [address] [place] [id number] Jun, Type 1 diabetes mellitus wit h other diabetic neurological complication E10.49 and Chronic fatigue R53.82 [facility] [address] [id number] [address] [place] [id number] May, Type 1 diabetes mellitus wit h other diabetic neurological complication E10.49 [facility] [address] [id number] [address] [place] [id number] May, [facility] [address] [id number] [address] [place] [id number] May, [facility] [address] [id number] [address] [place] [id number] Apr, [facility] [address] [id number] [address] [place] [id number] Apr, Type 1 diabetes mellitus wit h other diabetic neurological complication E10.49 [facility] [address] [facility] [id number] [address] [place] [id number] March, [facility] [address] [id number] [address] [place] [id number] Feb, [facility] [address] [id number] [address] [place] [id number] Feb, Type 1 diabetes mellitus wit h other diabetic neurological complication E10.49 ; Tobacco abuse Z72.0 and Tobacco abuse counseling Z71.6 [facility] [address] [id number] [address] [place] [id number] Jan, Type 1 diabetes mellitus wit h hyperglycemia E10.65 [facility] [address] [id number] [address] [place] [id number] Jan, [facility] [address] [id number] [address] [place] [id number] Dec, Tobacco abuse Z72.0 [facility] [address] [facility] [id number] [address] [place] [id number] Dec, Type 1 diabetes mellitus wit h hyperglycemia E10.65 [facility] [address] [id number] [address] [place] [id number] Dec, Type 1 diabetes mellitus wit h hyperglycemia E10.65 ; Tobacco abuse Z72.0 and Tobacco abuse counseling Z71.6 [facility] [address] [facility] [id number] [address] [place] [id number] Nov, Type 1 diabetes mellitus wit h hyperglycemia E10.65 [facility] [address] [facility] [id number] [address] [place] [id number] Oct, Type 1 diabetes mellitus wit h hyperglycemia E10.65 [facility] [address] [facility] [id number] [address] [place] [id number] Oct, Type 1 diabetes mellitus wit h hyperglycemia E10.65 [facility] [address] [facility] [id number] [address] [place] [id number] Sep, Type 1 diabetes mellitus wit h hyperglycemia E10.65 [facility] [address] [facility] [id number] [address] [place] [id number] Aug, Type 1 diabetes mellitus wit h hyperglycemia E10.65 [facility] [address] [facility] [id number] [address] [place] [id number] Aug, [facility] [address] [facility] [id number] [address] [place] [id number] Aug, Type 1 diabetes mellitus wit h hyperglycemia E10.65 [facility] [address] [facility] [id number] [address] [place] [id number] Aug, Encounter for immunization Z 23 [facility] [address] [facility] [id number] [address] [place] [id number] Aug, Type 1 diabetes mellitus wit h hyperglycemia E10.65 [facility] [address] [facility] [id number] [address] [place] [id number] Jul, Type 1 diabetes mellitus wit h hyperglycemia E10.65 [facility] [address] [facility] [id number] [address] [place] [id number] Jul, Type 1 diabetes mellitus wit h hyperglycemia E10.65 [facility] [address] [id number] [address] [place] [id number] May, Type 1 diabetes mellitus wit h hyperglycemia E10.65 [facility] [address] [id number] [address] [place] [id number] May, [facility] [address] [id number] [address] [place] [id number] Apr, [facility] [address] [id number] [address] [place] [id number] Apr, Type 1 diabetes mellitus wit h hyperglycemia E10.65 [facility] [address] [id number] [address] [place] [id number] March, [facility] [address] [id number] [address] [place] [id number] March, [facility] [address] [facility] [id number] [address] [place] [id number] Jan, [facility] [address] [id number] [address] [place] [id number] Jan, [facility] [address] [id number] [address] [place] [id number] Jan, Type 1 diabetes mellitus wit h diabetic polyneuropathy E10.42 [facility] [address] [id number] [address] [place] [id number] Jan, Type 1 diabetes mellitus wit h hyperglycemia E10.65 ; Excessive cerumen in both ear canals H61.23 and Controlled diabetes mellitus type 1 without complications E10.9 [facility] [address] [id number] [address] [place] [id number] Dec, [facility] [address] [facility] [id number] [address] [place] [id number] Dec, [facility] [address] [id number] [address] [place] [id number] Dec, [facility] [address] [facility] [id number] [address] [place] [id number] Dec, [facility] [address] [id number] [address] [place] [id number] Nov, [facility] [address] [id number] [address] [place] [id number] Nov, [facility] [address] [id number] [address] [place] [id number] Oct, Type 1 diabetes mellitus wit h hyperglycemia E10.65 [facility] [address] [id number] [address] [place] [id number] Sep, [facility] [address] [id number] [address] [place] [id number] Sep, [facility] [address] [id number] [address] [place] [id number] Sep, Controlled diabetes mellitus type 1 without complications E10.9 [facility] [address] [id number] [address] [place] [id number] Sep, [facility] [address] [id number] [address] [place] [address] [id number] Aug, Dental caries K02.9 [facility] [address] [id number] [address] [place] [id number] Aug, Type 1 diabetes mellitus wit h diabetic polyneuropathy E10.42 [facility] [address] [id number] [address] [place] [id number] Aug, [facility] [address] [facility] [id number] [address] [place] [id number] Aug, [facility] [address] [id number] [address] [place] [id number] Aug, [facility] [address] [facility] [id number] [address] [place] [id number] Jul, Type 1 diabetes mellitus wit h hyperglycemia E10.65 [facility] [address] [id number] [address] [place] [id number] Jul, Type 1 diabetes mellitus wit h hyperglycemia E10.65 ; Tooth pain K08.8 and Encounter for immunization Z23 [facility] [address] [id number] [address] [place] [address] [id number] 08 Jul, 2016 Dental examination Z01.20 [facility] [address] [id number] [address] [place] [id number] 08 Jul, 2016 [facility] [address] [id number] [address] [place] [id number] Jul, [facility] [address] [id number] [address] [place] [id number] Jul, [facility] [address] [id number] [address] [place] [id number] Jun, [facility] [address] [id number] [address] [place] [id number] May, [facility] [address] [id number] [address] [place] [id number] Apr, [facility] [address] [id number] [address] [place] [id number] Apr, [facility] [address] [id number] [address] [place] [id number] Apr, [facility] [address] [id number] [address] [place] [id number] March, [facility] [address] [id number] [address] [place] [id number] March, [facility] [address] [id number] [address] [place] [id number] Feb, [facility] [address] [id number] [address] [place] [id number] Feb, [facility] [address] [id number] [address] [place] [id number] Feb, Type 1 diabetes mellitus wit h hyperglycemia E10.65 [facility] [address] [id number] [address] [place] [id number] 31 Jan, 2016 [facility] [address] [facility] [id number] [address] [place] [id number] Jan, [facility] [address] [facility] [id number] [place] [id number] 08 Jan, 2016 [facility] [address] [facility] [id number] [place] [id number] Jan, [facility] [address] [place] [id number] [place] [id number] Dec, [facility] [address] [place] [id number] [place] [phone] Nov, [facility] [address] [place] [id number] [place] [id number] Nov, [facility] [address] [id number] Oct, [facility] [address] [id number] 04 Oct, 2015 Type 1 diabetes mellitus wit h 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 ; Type 1 diabetes mellitus with hyperglycemia E10.65 ; Gastroparesis K31.84 and Esophageal stricture K22.2 [facility] [address] [id number] Oct, [facility] [address] [id number] Sep, [facility] [address] [place] [id number] [place] [id number] Sep, Type 1 diabetes mellitus wit h other diabetic neurological complication E10.49 [facility] [address] [id number] 22 Aug, 2015 Encounter for immunization Z 23 [facility] [address] [place] [id number] [address] [place] [id number] Aug, [facility] [address] [id number] [address] [place] [id number] Aug, [facility] [address] [id number] [address] [place] [id number] Jul, [facility] [address] [id number] [address] [place] [id number] Jul, [facility] [address] [id number] [address] [place] [id number] Jun, [facility] [address] [id number] [address] [place] [id number] Jun, [facility] [address] [id number] [address] [place] [id number] Jun, [facility] [address] [id number] [address] [place] [phone] May, [facility] [address] [id number] [address] [place] [id number] May, [facility] [address] [id number] [address] [place] [id number] May, Diabetes type 1, controlled 250.01 [facility] [address] [id number] [address] [place] [id number] May, [facility] [address] [id number] [address] [place] [id number] May, [facility] [address] [id number] [address] [place] [address] [id number] Apr, Dental examination V72.2 [facility] [address] [id number] [address] [place] [id number] Apr, [facility] [address] [id number] [address] [place] [id number] Apr, [facility] [address] [id number] [address] [place] [id number] Apr, [facility] [address] [id number] [address] [place] [id number] Apr, [facility] [address] [id number] [address] [place] [id number] Apr, [facility] [address] [id number] [address] [place] [address] [id number] Apr, Dental examination V72.2 [facility] [address] [id number] [address] [place] [id number] Apr, [facility] [address] [id number] [address] [place] [id number] Apr, [facility] [address] [id number] [address] [place] [id number] March, Diabetes mellitus type 1 250 .01 [facility] [address] [id number] [address] [place] [id number] March, [facility] [address] [id number] [address] [place] [id number] Feb, [facility] [address] [id number] [address] [place] [id number] Feb, [facility] [address] [id number] [address] [place] [id number] Jan, [facility] [address] [id number] [address] [place] [id number] Jan, [facility] [address] [id number] [address] [place] [id number] Jan, [facility] [address] [id number] [address] [place] [id number] Jan, [facility] [address] [id number] [address] [place] [id number] Dec, [facility] [address] [id number] [address] [place] [id number] Dec, [facility] [address] [id number] [address] [place] [phone] Nov, [facility] [address] [id number] [address] [place] [address], [place] [phone] Nov, [facility] [address] [id number] [address] [place] [address], [place] [id number] Nov, [facility] [address] [id number] [address] [place] [address], [place] [address] Nov, [facility] [address] [id number] [address] [place] [address], [place] [address] Nov, [facility] [address] [id number] [address] [place] [address], [place] [address] Nov, [facility] [address] [id number] [address] [place] [address], [place] [address] Nov, [facility] [address] [id number] [address] [place] [address], [place] [address] Oct, [facility] [address] [id number] [address] [place] [address], [place] [address] Oct, [facility] [address] [id number] [address] [place] [address], [place] [address] Sep, [facility] [address] [id number] [address] [place] [address], [place] [address] Aug, [facility] [address] [id number] [address] [place] [address], [place] [address] Aug, [facility] [address] [id number] [address] [place] [address], [place] [address] Aug, [facility] [address] [id number] [address] [place] [address], [place] [address] Aug, [facility] [address] [id number] [address] [place] [address], [place] [address] Aug, [facility] [address] [id number] [address] [place] [address], [place] [address] Aug, [facility] [address] [id number] [address] [place] [address], [place] [address] Aug, [facility] [address] [id number] [address] [place] [address], [place] [address] Aug, [facility] [address] [id number] [address] [place] [address], [place] [address] Aug, [facility] [address] [id number] [address] [place] [address], [place] [address] Aug, [facility] [address] [id number] [address] [place] [address], [place] [address] Aug, [facility] [address] [id number] [address] [place] [address], [place] [address] Aug, [facility] [address] [id number] [address] [place] [address], [place] [address] Aug, [facility] [address] [id number] [address] [place] [address], [place] [address] Aug, [facility] [address] [id number] [address] [place] [address], [place] [address] Jul, [facility] [address] [id number] [address] [place] [address], [place] [address] Jul, [facility] [address] [id number] [address] [place] [address], [place] [address] Jul, [facility] [address] [id number] [address] [place] [address], [place] [address] Jul, [facility] [address] [id number] [address] [place] [address], [place] [address] Jun, [facility] [address] [id number] [address] [place] [address], [place] [address] Jun, [facility] [address] [id number] [address] [place] [address], [place] [address] Jun, [facility] [address] [id number] [address] [place] [address], [place] [address] Jun, [facility] [address] [id number] [address] [place] [address], [place] [address] May, [facility] [address] [id number] [address] [place] [address], [place] [address] May, [facility] [address] [id number] [address] [place] [address], [place] [address] May, [facility] [address] [id number] [address] [place] [address], [place] [address] May, [facility] [address] [id number] [address] [place] [address], [place] [address] May, [facility] [address] [id number] [address] [place] [address], [place] [address] May, [facility] [address] [id number] [address] [place] [address], [place] [address] May, [facility] [address] [id number] [address] [place] [address], [place] [address] May, [facility] [address] [id number] [address] [place] [address], [place] [address] May, [facility] [address] [id number] [address] [place] [address], [place] [address] May, [facility] [address] [id number] [address] [place] [address], [place] [address] May, [facility] [address] [id number] [address] [place] [address], [place] [address] May, [facility] [address] [id number] [address] [place] [address], [place] [address] May, [facility] [address] [id number] [address] [place] [address], [place] [address] Apr, [facility] [address] [id number] [address] [place] [address], [place] [address] Apr, [facility] [address] [id number] [address] [place] [address], [place] [address] Apr, [facility] [address] [id number] [facility] [address] Apr, [facility] [address] [id number] [address] [place] [address], [place] [address] Apr, [facility] [address] [id number] [address] [place] [address], [place] [address] Apr, [facility] [address] [id number] [address] [place] [address], [place] [address] Apr, [facility] [address] [id number] [address] [place] [address], [place] [address] Apr, [facility] [address] [id number] [address] [place] [address], [place] [address] Apr, [facility] [address] [id number] [address] [place] [address], [place] [address] Apr, [facility] [address] [id number] [address] [place] [address], [place] [address] Apr, [facility] [address] [id number] [address] [place] [address], [place] [address] Apr, [facility] [address] [id number] [address] [place] [address], [place] [address] Apr, [facility] [address] [id number] [address] [place] [address], [place] [address] Apr, [facility] [address] [id number] [address] [place] [address], [place] [address] March, [facility] [address] [id number] [address] [place] [address], [place] [address] March, [facility] [address] [id number] [address] [place] [address], [place] [address] March, [facility] [address] [id number] [address] [place] [address], [place] [address] March, [facility] [address] [id number] [facility] [address] March, [facility] [address] [id number] [address] [place] [address], [place] [address] March, [facility] [address] [id number] [address] [place] [address], [place] [address] March, [facility] [address] [id number] [address] [place] [address], [place] [address] March, [facility] [address] [id number] [address] [place] [address], [place] [address] March, [facility] [address] [id number] [address] [place] [address], [place] [address] March, [facility] [address] [id number] [address] [place] [address], [place] [address] Feb, [facility] [address] [id number] [address] [place] [address], [place] [address] Feb, [facility] [address] [id number] [address] [place] [address], [place] [address] Feb, [facility] [address] [id number] [address] [place] [address], [place] [address] Feb, [facility] [address] [id number] [address] [place] [address], [place] [address] Feb, [facility] [address] [id number] [address] [place] [address], [place] [address] Feb, [facility] [address] [id number] [address] [place] [address], [place] [address] Feb, [facility] [address] [id number] [address] [place] [address], [place] [address] Feb, [facility] [address] [id number] [address] [place] [address], [place] [address] Jan, [facility] [address] [id number] [address] [place] [address], [place] [address] 18 Jan, 2014 [facility] [address] [id number] [facility] [address] 18 Jan, 2014 [facility] [address] [id number] [facility] [address] 18 Jan, 2014 [facility] [address] [id number] [facility] [address] Jan, [facility] [address] [id number] [address] [place] [address], [place] [address] Jan, [facility] [address] [id number] [address] [place] [address], [place] [address] Jan, [facility] [address] [id number] [address] [place] [address], [place] [address] Jan, [facility] [address] [id number] [address] [place] [address], [place] [address] Jan, [facility] [address] [id number] [address] [place] [address], [place] [address] Jan, [facility] [address] [id number] [address] [place] [address], [place] [address] Dec, [facility] [address] [id number] [address] [place] [address], [place] [address] Dec, [facility] [address] [id number] [address] [place] [address], [place] [address] Nov, [facility] [address] [id number] [address] [place] [address], [place] [address] Nov, [facility] [address] [id number] [address] [place] [address], [place] [address] Nov, [facility] [address] [id number] [address] [place] [address], [place] [address] Nov, [facility] [address] [id number] [address] [place] [address], [place] [address] Nov, [facility] [address] [id number] [address] [place] [address], [place] [address] 15 Nov, 2013 [facility] [address] [id number] [address] [place] [address], [place] [address] Nov, [facility] [address] [id number] [address] [place] [address], [place] [address] Nov, [facility] [address] [id number] [address] [place] [address], [place] [address] Oct, [facility] [address] [id number] [address] [place] [address], [place] [address] Oct, [facility] [address] [id number] [address] [place] [address], [place] [address] Oct, [facility] [address] [id number] [address] [place] [address], [place] [address] Oct, [facility] [address] [id number] [address] [place] [address], [place] [address] Oct, [facility] [address] [id number] [address] [place] [address], [place] [address] Oct, [facility] [address] [id number] [address] [place] [address], [place] [address] Sep, [facility] [address] [id number] [address] [place] [address], [place] [address] Sep, [facility] [address] [id number] [address] [place] [address], [place] [address] Sep, [facility] [address] [id number] [address] [place] [address], [place] [address] Sep, [facility] [address] [id number] [address] [place] [address], [place] [address] 05 Sep, 2013 [facility] [address] [id number] [address] [place] [address], [place] [address] Aug, [facility] [address] [id number] [address] [place] [address], [place] [address] Aug, [facility] [address] [id number] [address] [place] [address], [place] [address] Aug, [facility] [address] [id number] [address] [place] [address], [place] [address] Aug, [facility] [address] [id number] [address] [place] [address], [place] [address] Aug, [facility] [address] [id number] [address] [place] [address], [place] [address] Aug, [facility] [address] [id number] [address] [place] [address], [place] [address] Jul, [facility] [address] [id number] [address] [place] [address], [place] [address] Jul, [facility] [address] [id number] [address] [place] [address], [place] [address] Jul, [facility] [address] [id number] [address] [place] [address], [place] [address] Jun, [facility] [address] [id number] [address] [place] [address], [place] [address] Jun, [facility] [address] [id number] [address] [place] [address], [place] [address] May, [facility] [address] [id number] [address] [place] [address], [place] [address] May, [facility] [address] [id number] [address] [place] [address], [place] [address] Apr, [facility] [address] [id number] [address] [place] [address], [place] [address] Apr, [facility] [address] [id number] [address] [place] [address], [place] [address] Apr, [facility] [address] [id number] [address] [place] [address], [place] [address] March, [facility] [address] [id number] [address] [place] [address], [place] [address] Feb, [facility] [address] [id number] [address] [place] [address], [place] [address] Feb, [facility] [address] [id number] [address] [place] [address], [place] [address] 28 Jan, 2013 [facility] [address] [id number] [address] [place] [address], [place] [address] Jan, [facility] [address] [id number] [address] [place] [address], [place] [address] 13 Jan, 2013 [facility] [address] [id number] [address] [place] [address], [place] [address] 08 Jan, 2013 [facility] [address] [id number] [address] [place] [address], [place] [address] Jan, [facility] [address] [id number] [address] [place] [address], [place] [address] 28 Dec, 2012 [facility] [address] [id number] [address] [place] [address], [place] [address] Dec, [facility] [address] [id number] [address] [place] [address], [place] [address] 18 Dec, 2012 [facility] [address] [id number] [address] [place] [address], [place] [address] Dec, [facility] [address] [id number] [address] [place] [address], [place] [address] Dec, [facility] [address] [id number] [address] [place] [address], [place] [address] 05 Dec, 2012 [facility] [place] [id number] 14 Nov, 2012 [facility] [address] [id number] [address] [place] [address], [place] [address] Nov, [facility] [address] [id number] [address] [place] [address], [place] [address] Nov, [facility] [address] [id number] [address] [place] [address], [place] [address] Nov, [facility] [address] [id number] [address] [place] [address], [place] [address] Nov, [facility] [address] [id number] [address] [place] [address], [place] [address] Oct, [facility] [address] [id number] [address] [place] [address], [place] [address] Oct, [facility] [address] [id number] [address] [place] [address], [place] [address] Oct, [facility] [address] [id number] [address] [place] [address], [place] [address] Oct, [facility] [address] [id number] [address] [place] [address], [place] [address] Oct, [facility] [address] [id number] [address] [place] [address], [place] [address] Oct, [facility] [address] [id number] [address] [place] [address], [place] [address] Oct, [facility] [address] [id number] [address] [place] [address], [place] [address] Oct, [facility] [address] [id number] [address] [place] [address], [place] [address] Sep, [facility] [address] [id number] [address] [place] [address], [place] [address] Sep, [facility] [address] [id number] [address] [place] [address], [place] [address] Sep, [facility] [address] [id number] [address] [place] [address], [place] [address] Sep, [facility] [address] [id number] [address] [place] [address], [place] [address] 14 Sep, 2012 [facility] [address] [id number] [address] [place] [address], [place] [address] Sep, [facility] [address] [id number] [address] [place] [id number] Sep, [facility] [address] [id number] [address] [place] [id number] Sep, [facility] [address] [id number] [address] [place] [address] Sep, [facility] [address] [id number] [address] [place] [id number] Sep, [facility] [address] [id number] [address] [place] [id number] Sep, [facility] [address] [id number] [address] [place] [id number] Sep, [facility] [address] [facility] [id number] [address] [place] [id number] Sep, [facility] [address] [id number] [address] [place] [id number] Sep, [facility] [address] [id number] [address] [place] [id number] Sep, [facility] [address] [facility] [id number] [address] [place] [id number] Sep, IMMUNIZATIONS No Known Immunizations SOCIAL HISTORY [...]
--- OUTSIDE RECORDS SUMMARY | 2020-04-17 21:32 | XMS REPORT ---
Author Author Curt PATIÑO Organization [facility] Address [address] [place] [address] Care Team Providers Care [employer] Name Role Phone BISMARK PATIÑO Unavailable PROBLEMS Type Condition ICD9-CM Code XRB73-WZ Code Onset Dates Condition S tatus SNOMED Code Problem Hypertension, essential I10 Active 14308759 Problem Gastroparesis K31.84 Active 575851 006 Problem Type 1 diabetes mellitus with other diab etic neurological complication E10.49 Active 00015166 Problem Controlled diabetes mellitus type 1 without complications E10.9 Active 79448584 Problem Mood disorder F39 Active 863182 05 Problem Other chronic pain G89.29 Active 8 6001976 Problem 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 Active 75943052 Problem Type 1 diabetes mellitus with hyperglycemia E10.65 Active [id number] Problem Type 1 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 Active 15807222 Problem Chronic fatigue R53.82 Active 8422 9001 ALLERGIES No Information ENCOUNTERS Encounter Location Date Diagnosis [facility] [address] [facility] [id number] [address] [place] [address] May, [facility] [address] [facility] [id number] [address] [place] [id number] May, [facility] [address] [facility] [id number] [address] [place] [id number] May, Other chronic pain G89.29 [facility] [address] [facility] [id number] [address] [place] [address] May, [facility] [address] [facility] [id number] [address] [place] [address] May, Type 1 diabetes mellitus wit h other diabetic neurological complication E10.49 [facility] [address] [facility] [id number] [address] [place] [id number] Apr, [facility] [address] [id number] [address] [place] [address] Apr, Type 1 diabetes mellitus wit h other diabetic neurological complication E10.49 [facility] [address] [id number] [address] [place] [address] Apr, Encounter for Medicare annua l wellness exam Z00.00 [facility] [address] [facility] [id number] [address] [place] [id number] March, Encounter for Medicare annua l wellness exam Z00.00 and Type 1 diabetes mellitus with other diabetic neurological complication E10.49 [facility] [address] [facility] [id number] [address] [place] [id number] Feb, Type 1 diabetes mellitus wit h other diabetic neurological complication E10.49 [facility] [address] [facility] [id number] [address] [place] [address] Feb, Encounter for Medicare annua l wellness exam Z00.00 ; Mood disorder F39 ; Type 1 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 ; Hypertension, essential I10 and Chronic fatigue R53.82 [facility] [address] [facility] [id number] [address] [place] [address] Jan, Type 1 diabetes mellitus wit h other diabetic neurological complication E10.49 [facility] [address] [id number] [address] [place] [id number] Jan, [facility] [address] [id number] [address] [place] [address] Jan, Other chronic pain G89.29 [facility] [address] [id number] [address] [place] [address] Dec, [facility] [address] [id number] [address] [place] [id number] 08 Dec, 2018 Type 1 diabetes mellitus wit h other diabetic neurological complication E10.49 [facility] [address] [id number] [address] [place] [id number] 05 Dec, 2018 Other chronic pain G89.29 [facility] [address] [id number] [address] [place] [id number] Nov, [facility] [address] [id number] [address] [place] [id number] Nov, Caries K02.9 [facility] [address] [id number] [address] [place] [id number] Nov, Type 1 diabetes mellitus wit h other diabetic neurological complication E10.49 [facility] [address] [id number] [address] [place] [address] Nov, Controlled diabetes mellitus type 1 without complications E10.9 ; Other chronic pain G89.29 and Pain in left knee M25.562 [facility] [address] [id number] [address] [place] [address] [phone] Oct, Dental examination Z01.20 [place] [facility] [address] [id number] [address] [place] [address] 14 Oct, 2018 Cutaneous abscess of unspeci fied foot L02.619 and Cellulitis of unspecified part of limb L03.119 [place] [address] [id number] [address] [place] [address] 11 Oct, 2018 [facility] [address] [id number] [address] [place] [id number] 10 Oct, 2018 Type 1 diabetes mellitus wit h other diabetic neurological complication E10.49 [facility] [address] [id number] [address] [place] [address] [id number] 06 Oct, 2018 Dental examination Z01.20 an d Caries K02.9 [facility] [address] [id number] [address] [place] [id number] 04 Oct, 2018 Cutaneous abscess of left fo ot L02.612 and Cellulitis of left lower limb L03.116 [place] [address] [id number] [address] [place] [address] 04 Oct, 2018 Dental examination Z01.20 an d Pain, dental K08.89 [facility] [address] [facility] [id number] [address] [place] [address] Sep, Left foot pain M79.672 and L eft anterior knee pain M25.562 [facility] [address] [facility] [id number] [address] [place] [address] Sep, Type 1 diabetes mellitus wit h other diabetic neurological complication E10.49 [facility] [address] [facility] [id number] [address] [place] [address] Sep, [facility] [address] [facility] [id number] [address] [place] [id number] 11 Aug, 2018 Type 1 diabetes mellitus wit h other diabetic neurological complication E10.49 [facility] [address] [place] [id number] [address] [place] [id number] 10 Aug, 2018 Encounter for immunization Z 23 [facility] [address] [facility] [id number] [address] [place] [id number] 05 Aug, 2018 Type 1 diabetes mellitus wit h hyperglycemia E10.65 [facility] [address] [facility] [id number] [address] [place] [address] Jul, Type 1 diabetes mellitus wit h hyperglycemia E10.65 [facility] [address] [facility] [id number] [address] [place] [id number] Jul, [facility] [address] [facility] [id number] [address] [place] [id number] 18 Jul, 2018 [facility] [address] [facility] [id number] [address] [place] [address] Jul, Type 1 diabetes mellitus wit h other diabetic neurological complication E10.49 [facility] [address] [facility] [id number] [address] [place] [address] Jul, Type 1 diabetes mellitus wit h other diabetic neurological complication E10.49 and Mood disorder F39 [facility] [address] [facility] [id number] [address] [place] [address] Jun, [facility] [address] [facility] [id number] [address] [place] [address] Jun, Type 1 diabetes mellitus wit h other diabetic neurological complication E10.49 and Chronic fatigue R53.82 [facility] [address] [id number] [address] [place] [address] May, Type 1 diabetes mellitus wit h other diabetic neurological complication E10.49 [facility] [address] [facility] [id number] [address] [place] [id number] May, [facility] [address] [facility] [id number] [address] [place] [id number] May, [facility] [address] [facility] [id number] [address] [place] [address] Apr, [facility] [address] [facility] [id number] [address] [place] [address] Apr, Type 1 diabetes mellitus wit h other diabetic neurological complication E10.49 [facility] [address] [facility] [id number] [address] [place] [address] March, [facility] [address] [facility] [id number] [address] [place] [address] Feb, [facility] [address] [facility] [id number] [address] [place] [id number] Feb, Type 1 diabetes mellitus wit h other diabetic neurological complication E10.49 ; Tobacco abuse Z72.0 and Tobacco abuse counseling Z71.6 [facility] [address] [facility] [id number] [address] [place] [address] Jan, Type 1 diabetes mellitus wit h hyperglycemia E10.65 [facility] [address] [facility] [id number] [address] [place] [phone] Jan, [facility] [address] [facility] [id number] [address] [place] [address] Dec, Tobacco abuse Z72.0 [facility] [address] [facility] [id number] [address] [place] [address] Dec, Type 1 diabetes mellitus wit h hyperglycemia E10.65 [facility] [address] [facility] [id number] [address] [place] [address] Dec, Type 1 diabetes mellitus wit h hyperglycemia E10.65 ; Tobacco abuse Z72.0 and Tobacco abuse counseling Z71.6 [facility] [address] [facility] [id number] [address] [place] [address] Nov, Type 1 diabetes mellitus wit h hyperglycemia E10.65 [facility] [address] [facility] [id number] [address] [place] [address] Oct, Type 1 diabetes mellitus wit h hyperglycemia E10.65 [facility] [address] [facility] [id number] [address] [place] [address] Oct, Type 1 diabetes mellitus wit h hyperglycemia E10.65 [facility] [address] [facility] [id number] [address] [place] [address] Sep, Type 1 diabetes mellitus wit h hyperglycemia E10.65 [facility] [address] [facility] [id number] [address] [place] [id number] Aug, Type 1 diabetes mellitus wit h hyperglycemia E10.65 [facility] [address] [facility] [id number] [address] [place] [address] Aug, [facility] [address] [facility] [id number] [address] [place] [address] Aug, Type 1 diabetes mellitus wit h hyperglycemia E10.65 [facility] [address] [facility] [id number] [address] [place] [address] Aug, Encounter for immunization Z 23 [facility] [address] [facility] [id number] [address] [place] [address] Aug, Type 1 diabetes mellitus wit h hyperglycemia E10.65 [facility] [address] [facility] [id number] [address] [place] [address] Jul, Type 1 diabetes mellitus wit h hyperglycemia E10.65 [facility] [address] [facility] [id number] [address] [place] [id number] Jul, Type 1 diabetes mellitus wit h hyperglycemia E10.65 [facility] [address] [id number] [address] [place] [address] May, Type 1 diabetes mellitus wit h hyperglycemia E10.65 [facility] [address] [id number] [address] [place] [address] May, [facility] [address] [id number] [address] [place] [address] Apr, [facility] [address] [id number] [address] [place] [address] Apr, Type 1 diabetes mellitus wit h hyperglycemia E10.65 [facility] [address] [id number] [address] [place] [address] March, [facility] [address] [id number] [address] [place] [address] March, [facility] [address] [id number] [address] [place] [address] Jan, [facility] [address] [id number] [address] [place] [id number] Jan, [facility] [address] [id number] [address] [place] [address] Jan, Type 1 diabetes mellitus wit diabetic polyneuropathy E10.42 [facility] [address] [id number] [address] [place] [address] Jan, Type 1 diabetes mellitus wit h hyperglycemia E10.65 ; Excessive cerumen in both ear canals H61.23 and Controlled diabetes mellitus type 1 without complications E10.9 [facility] [address] [id number] [address] [place] [address] Dec, [facility] [address] [id number] [address] [place] [address] Dec, [facility] [address] [facility] [id number] [address] [place] [id number] Dec, [facility] [address] [id number] [address] [place] [id number] Dec, [facility] [address] [id number] [address] [place] [address] Nov, [facility] [address] [id number] [address] [place] [address] Nov, [facility] [address] [id number] [address] [place] [address] Oct, Type 1 diabetes mellitus wit h hyperglycemia E10.65 [facility] [address] [id number] [address] [place] [address] Sep, [facility] [address] [id number] [address] [place] [address] Sep, [facility] [address] [id number] [address] [place] [address] Sep, Controlled diabetes mellitus type 1 without complications E10.9 [facility] [address] [id number] [address] [place] [address] Sep, [facility] [address] [id number] [address] [place] [address] [id number] Aug, Dental caries K02.9 [facility] [address] [id number] [address] [place] [address] Aug, Type 1 diabetes mellitus wit h diabetic polyneuropathy E10.42 [facility] [address] [id number] [address] [place] [phone] Aug, [facility] [address] [id number] [address] [place] [address] Aug, [facility] [address] [id number] [address] [place] [address] Aug, [facility] [address] [id number] [address] [place] [address] Jul, Type 1 diabetes mellitus wit h hyperglycemia E10.65 [facility] [address] [id number] [address] [place] [id number] 23 Jul, 2016 Type 1 diabetes mellitus wit h hyperglycemia E10.65 ; Tooth pain K08.8 and Encounter for immunization Z23 [facility] [address] [id number] [address] [place] [address] [id number] 08 Jul, 2016 Dental examination Z01.20 [facility] [address] [id number] [address] [place] [id number] 08 Jul, 2016 [facility] [address] [id number] [address] [place] [id number] 07 Jul, 2016 [facility] [address] [id number] [address] [place] [id number] Jul, [facility] [address] [id number] [address] [place] [address] Jun, [facility] [address] [id number] [address] [place] [address] May, [facility] [address] [id number] [address] [place] [address] Apr, [facility] [address] [id number] [address] [place] [id number] Apr, [facility] [address] [id number] [address] [place] [id number] Apr, [facility] [address] [id number] [address] [place] [address] March, [facility] [address] [id number] [address] [place] [id number] March, [facility] [address] [id number] [address] [place] [id number] Feb, [facility] [address] [id number] [address] [place] [address] Feb, [facility] [address] [id number] [address] [place] [address] Feb, Type 1 diabetes mellitus wit h hyperglycemia E10.65 [facility] [address] [facility] [id number] [address] [place] [id number] Jan, [facility] [address] [facility] [id number] [address] [place] [address] Jan, [facility] [address] [facility] [id number] [address] [place] [id number] Jan, [facility] [address] [facility] [id number] [address] [place] [address] Jan, [facility] [address] [facility] [id number] [address] [place] [id number] Dec, [facility] [address] [facility] [id number] [address] [place] [id number] Nov, [facility] [address] [facility] [id number] [address] [place] [address] Nov, [facility] [address] [facility] [id number] [address] [place] [address] Oct, [facility] [address] [facility] [id number] [address] [place] [address] Oct, Type 1 diabetes mellitus wit h 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 ; Type 1 diabetes mellitus with hyperglycemia E10.65 ; Gastroparesis K31.84 and Esophageal stricture K22.2 [facility] [address] [facility] [id number] [address] [place] [id number] Oct, [facility] [address] [facility] [id number] [address] [place] [id number] Sep, [facility] [address] [facility] [id number] [address] [place] [id number] 13 Sep, 2015 Type 1 diabetes mellitus wit h other diabetic neurological complication E10.49 [facility] [address] [facility] [id number] [address] [place] [id number] 22 Aug, 2015 Encounter for immunization Z 23 [facility] [address] [place] [id number] [address] [place] [address] Aug, [facility] [address] [id number] [address] [place] [id number] Aug, [facility] [address] [id number] [address] [place] [id number] Jul, [facility] [address] [id number] [address] [place] [id number] Jul, [facility] [address] [id number] [address] [place] [id number] Jun, [facility] [address] [id number] [address] [place] [phone] Jun, [facility] [address] [id number] [address] [place] [id number] Jun, [facility] [address] [id number] [address] [place] [id number] May, [facility] [address] [id number] [address] [place] [id number] May, [facility] [address] [id number] [address] [place] [address] May, Diabetes type 1, controlled 250.01 [facility] [address] [id number] [address] [place] [address] May, [facility] [address] [id number] [address] [place] [address] May, [facility] [address] [id number] [address] [place] [id number] Apr, Dental examination V72.2 [facility] [address] [id number] [address] [place] [id number] Apr, [facility] [address] [id number] [address] [place] [phone] Apr, [facility] [address] [id number] [address] [place] [id number] Apr, [facility] [address] [id number] [address] [place] [id number] Apr, [facility] [address] [id number] [address] [place] [id number] Apr, [facility] [address] [id number] [address] [place] [id number] Apr, Dental examination V72.2 [facility] [address] [id number] [address] [place] [id number] Apr, [facility] [address] [id number] [address] [place] [id number] Apr, [facility] [address] [id number] [address] [place] [id number] March, Diabetes mellitus type 1 250 .01 [facility] [address] [id number] [address] [place] [id number] March, [facility] [address] [id number] [address] [place] [id number] Feb, [facility] [address] [id number] [address] [place] [id number] Feb, [facility] [address] [id number] [address] [place] [id number] Jan, [facility] [address] [id number] [address] [place] [id number] Jan, [facility] [address] [id number] [address] [place] [id number] Jan, [facility] [address] [id number] [address] [place] [id number] Jan, [facility] [address] [id number] [address] [place] [id number] Dec, [facility] [address] [id number] [address] [place] [id number] Dec, [facility] [address] [id number] [address] [place] [address], [place] [id number] Nov, [facility] [address] [id number] [address] [place] [address], [place] [id number] Nov, [facility] [address] [id number] [address] [place] [address], [place] [id number] Nov, [facility] [address] [id number] [address] [place] [address], [place] [id number] Nov, [facility] [address] [id number] [address] [place] [address], [place] [id number] Nov, [facility] [address] [id number] [address] [place] [address], [place] [id number] Nov, [facility] [address] [id number] [address] [place] [address], [place] [id number] Nov, [facility] [address] [id number] [address] [place] [address], [place] [id number] Oct, [facility] [address] [id number] [address] [place] [address], [place] [address] Oct, [facility] [address] [id number] [address] [place] [address], [place] [id number] Sep, [facility] [address] [address] [id number] [address] [place] [address], [place] [address] Aug, [facility] [address] [id number] [address] [place] [address] Aug, [facility] [address] [id number] [address] [place] [address], [place] [address] Aug, [facility] [address] [id number] [address] [place] [address], [place] [address] Aug, [facility] [address] [id number] [address] [place] [address], [place] [address] Aug, [facility] [address] [id number] [address] [place] [address] Aug, [facility] [address] [id number] [address] [place] [address], [place] [address] Aug, [facility] [address] [id number] [address] [place] [address], [place] [address] Aug, [facility] [address] [id number] [address] [place] [address], [place] [address] Aug, [facility] [address] [id number] [address] [place] [address], [place] [address] Aug, [facility] [address] [id number] [address] [place] [address], [place] [address] Aug, [facility] [address] [id number] [address] [place] [address], [place] [address] Aug, [facility] [address] [id number] [address] [place] [address], [place] [address] Aug, [facility] [address] [id number] [address] [place] [address], [place] [address] Aug, [facility] [address] [id number] [address] [place] [address], [place] [address] Jul, [facility] [address] [id number] [address] [place] [address], [place] [address] Jul, [facility] [address] [id number] [address] [place] [address], [place] [address] Jul, [facility] [address] [id number] [address] [place] [address], [place] [address] Jul, [facility] [address] [id number] [address] [place] [address], [place] [address] Jun, [facility] [address] [id number] [address] [place] [address], [place] [address] Jun, [facility] [address] [id number] [address] [place] [address], [place] [address] Jun, [facility] [address] [id number] [facility] [place] [address] Jun, [facility] [address] [id number] [facility] [place] [address] May, [facility] [address] [id number] [facility] [place] [address] May, [facility] [address] [id number] [address] [place] [address], [place] [address] May, [facility] [address] [id number] [address] [place] [address], [place] [address] May, [facility] [address] [id number] [address] [place] [address], [place] [address] May, [facility] [address] [id number] [address] [place] [address], [place] [address] May, [facility] [address] [id number] [address] [place] [address], [place] [address] May, [facility] [address] [id number] [address] [place] [address], [place] [address] May, [facility] [address] [id number] [address] [place] [address], [place] [address] May, [facility] [address] [id number] [address] [place] [address], [place] [address] May, [facility] [address] [id number] [address] [place] [address], [place] [address] May, [facility] [address] [id number] [address] [place] [address], [place] [address] May, [facility] [address] [id number] [address] [place] [address], [place] [address] May, [facility] [address] [id number] [address] [place] [address], [place] [address] Apr, [facility] [address] [id number] [address] [place] [address], [place] [address] Apr, [facility] [address] [id number] [facility] [place] [address] Apr, [facility] [address] [id number] [facility] [place] [address] Apr, [facility] [address] [id number] [address] [place] [address], [place] [address] Apr, [facility] [address] [id number] [address] [place] [address], [place] [address] Apr, [facility] [address] [id number] [address] [place] [address], [place] [address] Apr, [facility] [address] [id number] [address] [place] [address], [place] [address] Apr, [facility] [address] [id number] [address] [place] [address], [place] [address] Apr, [facility] [address] [id number] [address] [place] [address], [place] [address] Apr, [facility] [address] [id number] [address] [place] [address], [place] [address] Apr, [facility] [address] [id number] [address] [place] [address], [place] [address] Apr, [facility] [address] [id number] [address] [place] [address], [place] [address] Apr, [facility] [address] [id number] [address] [place] [address], [place] [address] Apr, [facility] [address] [id number] [address] [place] [address], [place] [address] March, [facility] [address] [id number] [address] [place] [address], [place] [address] March, [facility] [address] [id number] [address] [place] [address], [place] [address] March, [facility] [address] [id number] [address] [place] [address], [place] [address] March, [facility] [address] [id number] [address] [place] [address], [place] [address] March, [facility] [address] [id number] [address] [place] [address], [place] [address] March, [facility] [address] [id number] [address] [place] [address], [place] [address] March, [facility] [address] [id number] [address] [place] [address], [place] [address] March, [facility] [address] [id number] [address] [place] [address], [place] [address] March, [facility] [address] [id number] [address] [place] [address], [place] [address] March, [facility] [address] [id number] [address] [place] [address], [place] [address] Feb, [facility] [address] [id number] [address] [place] [address], [place] [address] Feb, [facility] [address] [id number] [address] [place] [address], [place] [address] Feb, [facility] [address] [id number] [address] [place] [address], [place] [address] Feb, [facility] [address] [id number] [address] [place] [address], [place] [address] Feb, [facility] [address] [id number] [address] [place] [address], [place] [address] Feb, [facility] [address] [id number] [address] [place] [address], [place] [address] Feb, [facility] [address] [id number] [address] [place] [address], [place] [address] Feb, [facility] [address] [id number] [address] [place] [address], [place] [address] Jan, [facility] [address] [id number] [facility] [place] [address] 18 Jan, 2014 [facility] [address] [id number] [facility] [place] [address] Jan, [facility] [address] [id number] [facility] [place] [address] Jan, [facility] [address] [id number] [address] [place] [address], [place] [address] Jan, [facility] [address] [id number] [address] [place] [address], [place] [address] Jan, [facility] [address] [id number] [address] [place] [address], [place] [address] Jan, [facility] [address] [id number] [address] [place] [address], [place] [address] Jan, [facility] [address] [id number] [address] [place] [address], [place] [address] Jan, [facility] [address] [id number] [address] [place] [address], [place] [address] Jan, [facility] [address] [id number] [address] [place] [address], [place] [address] Dec, [facility] [address] [id number] [address] [place] [address], [place] [address] Dec, [facility] [address] [id number] [address] [place] [address], [place] [address] Nov, [facility] [address] [id number] [address] [place] [address], [place] [address] Nov, [facility] [address] [id number] [address] [place] [address], [place] [address] Nov, [facility] [address] [id number] [address] [place] [address], [place] [address] Nov, [facility] [address] [id number] [address] [place] [address], [place] [address] Nov, [facility] [address] [id number] [address] [place] [address], [place] [address] Nov, [facility] [address] [id number] [address] [place] [address], [place] [address] Nov, [facility] [address] [id number] [address] [place] [address], [place] [address] Nov, [facility] [address] [id number] [address] [place] [address], [place] [address] Oct, [facility] [address] [id number] [address] [place] [address], [place] [address] Oct, [facility] [address] [id number] [address] [place] [address], [place] [address] Oct, [facility] [address] [id number] [address] [place] [address], [place] [address] Oct, [facility] [address] [id number] [address] [place] [address], [place] [address] Oct, [facility] [address] [id number] [address] [place] [address], [place] [address] Oct, [facility] [address] [id number] [address] [place] [address], [place] [address] Sep, [facility] [address] [id number] [address] [place] [address], [place] [address] Sep, [facility] [address] [id number] [address] [place] [address], [place] [address] Sep, [facility] [address] [id number] [address] [place] [address], [place] [address] Sep, [facility] [address] [id number] [address] [place] [address], [place] [address] 05 Sep, 2013 [facility] [address] [id number] [address] [place] [address], [place] [address] 30 Aug, 2013 [facility] [address] [id number] [address] [place] [address], [place] [address] Aug, [facility] [address] [id number] [address] [place] [address], [place] [address] Aug, [facility] [address] [id number] [address] [place] [address], [place] [address] Aug, [facility] [address] [id number] [address] [place] [address], [place] [address] Aug, [facility] [address] [id number] [address] [place] [address], [place] [address] Aug, [facility] [address] [id number] [address] [place] [address], [place] [address] Jul, [facility] [address] [id number] [address] [place] [address], [place] [address] Jul, [facility] [address] [id number] [address] [place] [address], [place] [address] Jul, [facility] [address] [id number] [address] [place] [address], [place] [address] Jun, [facility] [address] [id number] [address] [place] [address], [place] [address] Jun, [facility] [address] [id number] [address] [place] [address], [place] [address] May, [facility] [address] [id number] [address] [place] [address], [place] [address] May, [facility] [address] [id number] [address] [place] [address], [place] [address] Apr, [facility] [address] [id number] [address] [place] [address], [place] [address] Apr, [facility] [address] [id number] [address] [place] [address], [place] [address] Apr, [facility] [address] [id number] [address] [place] [address], [place] [address] March, [facility] [address] [id number] [address] [place] [address], [place] [address] Feb, [facility] [address] [id number] [address] [place] [address], [place] [address] Feb, [facility] [address] [id number] [address] [place] [address], [place] [address] Jan, [facility] [address] [id number] [address] [place] [address], [place] [address] Jan, [facility] [address] [id number] [address] [place] [address], [place] [address] Jan, [facility] [address] [id number] [address] [place] [address], [place] [address] 08 Jan, 2013 [facility] [address] [id number] [address] [place] [address], [place] [address] Jan, [facility] [address] [id number] [address] [place] [address], [place] [address] Dec, [facility] [address] [id number] [address] [place] [address], [place] [address] Dec, [facility] [address] [id number] [address] [place] [address], [place] [address] Dec, [facility] [address] [id number] [address] [place] [address], [place] [address] Dec, [facility] [address] [id number] [address] [place] [address], [place] [address] Dec, [facility] [address] [id number] [address] [place] [address], [place] [address] Dec, [facility] [address] [place] [id number] Nov, [facility] [address] [id number] [address] [place] [address], [place] [address] Nov, [facility] [address] [id number] [address] [place] [address] [place] [address] Nov, [facility] [address] [id number] [address] [place] [address], [place] [address] Nov, [facility] [address] [id number] [address] [place] [address], [place] [address] Nov, [facility] [address] [id number] [address] [place] [address], [place] [address] Oct, [facility] [address] [id number] [address] [place] [address], [place] [address] Oct, [facility] [address] [id number] [address] [place] [address], [place] [address] Oct, [facility] [address] [id number] [address] [place] [address], [place] [address] Oct, [facility] [address] [id number] [address] [place] [address], [place] [address] Oct, [facility] [address] [id number] [address] [place] [address], [place] [address] Oct, [facility] [address] [id number] [address] [place] [address], [place] [address] Oct, [facility] [address] [id number] [address] [place] [address], [place] [address] Oct, [facility] [address] [id number] [address] [place] [address], [place] [address] Sep, [facility] [address] [id number] [address] [place] [address], [place] [address] Sep, [facility] [address] [id number] [address] [place] [address], [place] [address] Sep, [facility] [address] [id number] [address] [place] [address], [place] [address] Sep, [facility] [address] [id number] [address] [place] [address], [place] [address] 14 Sep, 2012 [facility] [address] [id number] [address] [place] [address] Sep, [facility] [address] [id number] [address] [place] [address] Sep, [facility] [address] [id number] [address] [place] [address] Sep, [facility] [address] [id number] [address] [place] [address] Sep, [facility] [address] [id number] [address] [place] [address] Sep, [facility] [address] [id number] [address] [place] [address] Sep, [facility] [address] [id number] [address] [place] [address] Sep, [facility] [address] [id number] [address] [place] [address] Sep, [facility] [address] [id number] [address] [place] [address] Sep, [facility] [address] [id number] [address] [place] [address] Sep, [facility] [address] [id number] [address] [place] [address] Sep, IMMUNIZATIONS No Known Immunizations SOCIAL HISTORY Never Assessed REASON FOR VISIT PLAN OF CARE VITAL SIGNS Height 68 in 2014-12-11 Weight 144 lbs 2014-12-11 Temperature 96.9 degrees Fahrenheit 2014-12-11 Heart Rate 72 bpm 2014-12-11 Respiratory Rate 18 2014-12-11 Blood pressure systolic 138 mmHg 2014-12-11 Blood pressure diastolic 62 mmHg 2014-12-11 MEDICATIONS Unknown Medications RESULTS No Results PROCEDURES Procedure Date Ordered Result Body Site GLYCATED HEMOGLOBIN TEST Dec 11, 2014 MICROALBUMIN, SEMIQUANT Dec 11, 2014 MICROALBUMIN, QUANTITATIVE Dec 11, 2014 INSTRUCTIONS MEDICATIONS ADMINISTERED No Known Medications MEDICAL (GENERAL) HISTORY Type Description Date Medical History hypertension Medical History type I diabetes Medical History chronic renal insufficiency Surgical History gastric pacemaker 2008 Hospitalization History nausea 2012
--- OUTSIDE RECORDS SUMMARY | 2020-04-17 21:32 | XMS REPORT ---
Author Author Curt PATIÑO Organization [facility] Address [address] [place] [address] Care Team Providers Care Labeling Associate Name Role Phone BISMARK PATIÑO Unavailable PROBLEMS Type Condition ICD9-CM Code [id number] Code Onset Dates Condition S tatus SNOMED Code Problem Hypertension, essential I10 Active 91440727 Problem Gastroparesis K31.84 Active 449287 006 Problem Type 1 diabetes mellitus with other diab etic neurological complication E10.49 Active 53121164 Problem Controlled diabetes mellitus type 1 without complications E10.9 Active 90279321 Problem Mood disorder F39 Active 827577 05 Problem Other chronic pain G89.29 Active 8 9937474 Problem 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 Active 26144060 Problem Type 1 diabetes mellitus with hyperglycemia E10.65 Active [id number] Problem Type 1 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 Active 93432487 Problem Chronic fatigue R53.82 Active 8422 9001 ALLERGIES No Information ENCOUNTERS Encounter Location Date Diagnosis [facility] [address] [facility] [id number] [address] [place] [phone] May, [facility] [address] [facility] [id number] [address] [place] [phone] May, [facility] [address] [facility] [id number] [address] [place] [phone] May, Other chronic pain G89.29 [facility] [address] [facility] [id number] [address] [place] [phone] May, [facility] [address] [facility] [id number] [address] [place] [phone] May, Type 1 diabetes mellitus wit h other diabetic neurological complication E10.49 [facility] [address] [facility] [id number] [address] [place] [phone] Apr, [facility] [address] [id number] [address] [place] [phone] Apr, Type 1 diabetes mellitus wit h other diabetic neurological complication E10.49 [facility] [address] [id number] [address] [place] [id number] Apr, Encounter for Medicare annua l wellness exam Z00.00 [facility] [address] [facility] [id number] [address] [place] [phone] March, Encounter for Medicare annua l wellness exam Z00.00 and Type 1 diabetes mellitus with other diabetic neurological complication E10.49 [facility] [address] [facility] [id number] [address] [place] [phone] Feb, Type 1 diabetes mellitus wit h other diabetic neurological complication E10.49 [facility] [address] [facility] [id number] [address] [place] [address] Feb, Encounter for Medicare annua l wellness exam Z00.00 ; Mood disorder F39 ; Type 1 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 ; Hypertension, essential I10 and Chronic fatigue R53.82 [facility] [address] [facility] [id number] [address] [place] [id number] Jan, Type 1 diabetes mellitus wit h other diabetic neurological complication E10.49 [facility] [address] [id number] [address] [place] [phone] Jan, [facility] [address] [id number] [address] [place] [phone] Jan, Other chronic pain G89.29 [facility] [address] [id number] [address] [place] [id number] Dec, [facility] [address] [id number] [address] [place] [phone] 08 Dec, 2018 Type 1 diabetes mellitus wit h other diabetic neurological complication E10.49 [facility] [address] [id number] [address] [place] [id number] 05 Dec, 2018 Other chronic pain G89.29 [facility] [address] [id number] [address] [place] [phone] Nov, [facility] [address] [id number] [address] [place] [id number] Nov, Caries K02.9 [facility] [address] [id number] [address] [place] [id number] Nov, Type 1 diabetes mellitus wit h other diabetic neurological complication E10.49 [facility] [address] [id number] [address] [place] [id number] Nov, Controlled diabetes mellitus type 1 without complications E10.9 ; Other chronic pain G89.29 and Pain in left knee M25.562 [facility] [address] [id number] [address] [place] [address] [id number] Oct, Dental examination Z01.20 [place] [address] [id number] [address] [place] [id number] 14 Oct, 2018 Cutaneous abscess of unspeci fied foot L02.619 and Cellulitis of unspecified part of limb L03.119 [place] [address] [id number] [address] [place] [id number] 11 Oct, 2018 [facility] [address] [id number] [address] [place] [id number] 10 Oct, 2018 Type 1 diabetes mellitus wit h other diabetic neurological complication E10.49 [facility] [address] [id number] [address] [place] [address] [id number] 06 Oct, 2018 Dental examination Z01.20 an d Caries K02.9 [facility] [address] [id number] [address] [place] [id number] 04 Oct, 2018 Cutaneous abscess of left fo ot L02.612 and Cellulitis of left lower limb L03.116 [place] [address] [id number] [address] [place] [id number] 04 Oct, 2018 Dental examination Z01.20 an d Pain, dental K08.89 [facility] [address] [facility] [id number] [address] [place] [id number] Sep, Left foot pain M79.672 and L eft anterior knee pain M25.562 [facility] [address] [facility] [id number] [address] [place] [address] Sep, Type 1 diabetes mellitus wit h other diabetic neurological complication E10.49 [facility] [address] [facility] [id number] [address] [place] [phone] Sep, [facility] [address] [facility] [id number] [address] [place] [id number] 11 Aug, 2018 Type 1 diabetes mellitus wit h other diabetic neurological complication E10.49 [facility] [address] [place] [id number] [address] [place] [phone] 10 Aug, 2018 Encounter for immunization Z 23 [facility] [address] [facility] [id number] [address] [place] [phone] 05 Aug, 2018 Type 1 diabetes mellitus wit h hyperglycemia E10.65 [facility] [address] [facility] [id number] [address] [place] [id number] Jul, Type 1 diabetes mellitus wit h hyperglycemia E10.65 [facility] [address] [facility] [id number] [address] [place] [phone] Jul, [facility] [address] [facility] [id number] [address] [place] [phone] 18 Jul, 2018 [facility] [address] [facility] [id number] [address] [place] [phone] Jul, Type 1 diabetes mellitus wit h other diabetic neurological complication E10.49 [facility] [address] [facility] [id number] [address] [place] [id number] Jul, Type 1 diabetes mellitus wit h other diabetic neurological complication E10.49 and Mood disorder F39 [facility] [address] [facility] [id number] [address] [place] [phone] Jun, [facility] [address] [facility] [id number] [address] [place] [phone] Jun, Type 1 diabetes mellitus wit h other diabetic neurological complication E10.49 and Chronic fatigue R53.82 [facility] [address] [id number] [address] [place] [phone] May, Type 1 diabetes mellitus wit h other diabetic neurological complication E10.49 [facility] [address] [facility] [id number] [address] [place] [phone] May, [facility] [address] [facility] [id number] [address] [place] [phone] May, [facility] [address] [facility] [id number] [address] [place] [phone] Apr, [facility] [address] [facility] [id number] [address] [place] [phone] Apr, Type 1 diabetes mellitus wit h other diabetic neurological complication E10.49 [facility] [address] [facility] [id number] [address] [place] [id number] March, [facility] [address] [facility] [id number] [address] [place] [phone] Feb, [facility] [address] [facility] [id number] [address] [place] [phone] Feb, Type 1 diabetes mellitus wit h other diabetic neurological complication E10.49 ; Tobacco abuse Z72.0 and Tobacco abuse counseling Z71.6 [facility] [address] [facility] [id number] [address] [place] [phone] Jan, Type 1 diabetes mellitus wit h hyperglycemia E10.65 [facility] [address] [facility] [id number] [address] [place] [phone] Jan, [facility] [address] [facility] [id number] [address] [place] [address] Dec, Tobacco abuse Z72.0 [facility] [address] [facility] [id number] [address] [place] [address] Dec, Type 1 diabetes mellitus wit h hyperglycemia E10.65 [facility] [address] [facility] [id number] [address] [place] [id number] Dec, Type 1 diabetes mellitus wit h hyperglycemia E10.65 ; Tobacco abuse Z72.0 and Tobacco abuse counseling Z71.6 [facility] [address] [facility] [id number] [address] [place] [id number] Nov, Type 1 diabetes mellitus wit h hyperglycemia E10.65 [facility] [address] [facility] [id number] [address] [place] [phone] Oct, Type 1 diabetes mellitus wit h hyperglycemia E10.65 [facility] [address] [facility] [id number] [address] [place] [phone] Oct, Type 1 diabetes mellitus wit h hyperglycemia E10.65 [facility] [address] [facility] [id number] [address] [place] [phone] Sep, Type 1 diabetes mellitus wit h hyperglycemia E10.65 [facility] [address] [facility] [id number] [address] [place] [id number] Aug, Type 1 diabetes mellitus wit h hyperglycemia E10.65 [facility] [address] [facility] [id number] [address] [place] [id number] Aug, [facility] [address] [facility] [id number] [address] [place] [id number] Aug, Type 1 diabetes mellitus wit h hyperglycemia E10.65 [facility] [address] [facility] [id number] [address] [place] [phone] Aug, Encounter for immunization Z 23 [facility] [address] [facility] [id number] [address] [place] [id number] Aug, Type 1 diabetes mellitus wit h hyperglycemia E10.65 [facility] [address] [facility] [id number] [address] [place] [phone] Jul, Type 1 diabetes mellitus wit h hyperglycemia E10.65 [facility] [address] [facility] [id number] [address] [place] [phone] Jul, Type 1 diabetes mellitus wit h hyperglycemia E10.65 [facility] [address] [id number] [address] [place] [address] May, Type 1 diabetes mellitus wit h hyperglycemia E10.65 [facility] [address] [id number] [address] [place] [phone] May, [facility] [address] [id number] [address] [place] [phone] Apr, [facility] [address] [id number] [address] [place] [phone] Apr, Type 1 diabetes mellitus wit h hyperglycemia E10.65 [facility] [address] [id number] [address] [place] [phone] March, [facility] [address] [id number] [address] [place] [phone] March, [facility] [address] [id number] [address] [place] [phone] Jan, [facility] [address] [id number] [address] [place] [phone] Jan, [facility] [address] [id number] [address] [place] [id number] Jan, Type 1 diabetes mellitus wit diabetic polyneuropathy E10.42 [facility] [address] [id number] [address] [place] [id number] Jan, Type 1 diabetes mellitus wit h hyperglycemia E10.65 ; Excessive cerumen in both ear canals H61.23 and Controlled diabetes mellitus type 1 without complications E10.9 [facility] [address] [id number] [address] [place] [id number] Dec, [facility] [address] [id number] [address] [place] [phone] Dec, [facility] [address] [facility] [id number] [address] [place] [id number] Dec, [facility] [address] [id number] [address] [place] [phone] Dec, [facility] [address] [id number] [address] [place] [id number] Nov, [facility] [address] [id number] [address] [place] [id number] Nov, [facility] [address] [id number] [address] [place] [phone] Oct, Type 1 diabetes mellitus wit h hyperglycemia E10.65 [facility] [address] [id number] [address] [place] [id number] Sep, [facility] [address] [id number] [address] [place] [phone] Sep, [facility] [address] [id number] [address] [place] [phone] Sep, Controlled diabetes mellitus type 1 without complications E10.9 [facility] [address] [id number] [address] [place] [phone] Sep, [facility] [address] [id number] [address] [place] [address] [id number] Aug, Dental caries K02.9 [facility] [address] [id number] [address] [place] [id number] Aug, Type 1 diabetes mellitus wit h diabetic polyneuropathy E10.42 [facility] [address] [id number] [address] [place] [id number] Aug, [facility] [address] [id number] [address] [place] [phone] Aug, [facility] [address] [id number] [address] [place] [phone] Aug, [facility] [address] [id number] [address] [place] [phone] Jul, Type 1 diabetes mellitus wit h hyperglycemia E10.65 [facility] [address] [id number] [address] [place] [id number] 23 Jul, 2016 Type 1 diabetes mellitus wit h hyperglycemia E10.65 ; Tooth pain K08.8 and Encounter for immunization Z23 [facility] [address] [id number] [address] [place] [address] [id number] 08 Jul, 2016 Dental examination Z01.20 [facility] [address] [id number] [address] [place] [id number] 08 Jul, 2016 [facility] [address] [id number] [address] [place] [phone] 07 Jul, 2016 [facility] [address] [id number] [address] [place] [phone] Jul, [facility] [address] [id number] [address] [place] [phone] Jun, [facility] [address] [id number] [address] [place] [phone] May, [facility] [address] [id number] [address] [place] [phone] Apr, [facility] [address] [id number] [address] [place] [phone] Apr, [facility] [address] [id number] [address] [place] [phone] Apr, [facility] [address] [id number] [address] [place] [id number] March, [facility] [address] [id number] [address] [place] [phone] March, [facility] [address] [id number] [address] [place] [phone] Feb, [facility] [address] [id number] [address] [place] [id number] Feb, [facility] [address] [id number] [address] [place] [phone] Feb, Type 1 diabetes mellitus wit h hyperglycemia E10.65 [facility] [address] [facility] [id number] [address] [place] [phone] Jan, [facility] [address] [facility] [id number] [address] [place] [id number] Jan, [facility] [address] [facility] [id number] [address] [place] [id number] Jan, [facility] [address] [facility] [id number] [address] [place] [id number] Jan, [facility] [address] [facility] [id number] [address] [place] [id number] Dec, [facility] [address] [facility] [id number] [address] [place] [id number] Nov, [facility] [address] [facility] [id number] [address] [place] [phone] Nov, [facility] [address] [facility] [id number] [address] [place] [phone] Oct, [facility] [address] [facility] [id number] [address] [place] [id number] Oct, Type 1 diabetes mellitus wit h 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 ; Type 1 diabetes mellitus with hyperglycemia E10.65 ; Gastroparesis K31.84 and Esophageal stricture K22.2 [facility] [address] [facility] [id number] [address] [place] [phone] Oct, [facility] [address] [facility] [id number] [address] [place] [address] Sep, [facility] [address] [facility] [id number] [address] [place] [id number] 13 Sep, 2015 Type 1 diabetes mellitus wit h other diabetic neurological complication E10.49 [facility] [address] [facility] [id number] [address] [place] [phone] 22 Aug, 2015 Encounter for immunization Z 23 [facility] [address] [place] [id number] [address] [place] [id number] Aug, [facility] [address] [id number] [address] [place] [phone] Aug, [facility] [address] [id number] [address] [place] [phone] Jul, [facility] [address] [id number] [address] [place] [id number] Jul, [facility] [address] [id number] [address] [place] [phone] Jun, [facility] [address] [id number] [address] [place] [id number] Jun, [facility] [address] [id number] [address] [place] [id number] Jun, [facility] [address] [id number] [address] [place] [id number] May, [facility] [address] [id number] [address] [place] [phone] May, [facility] [address] [id number] [address] [place] [id number] May, Diabetes type 1, controlled 250.01 [facility] [address] [id number] [address] [place] [id number] May, [facility] [address] [id number] [address] [place] [phone] May, [facility] [address] [id number] [address] [place] [address] [id number] Apr, Dental examination V72.2 [facility] [address] [id number] [address] [place] [id number] Apr, [facility] [address] [id number] [address] [place] [phone] Apr, [facility] [address] [id number] [address] [place] [id number] Apr, [facility] [address] [id number] [address] [place] [id number] Apr, [facility] [address] [id number] [address] [place] [phone] Apr, [facility] [address] [id number] [address] [place] [address] [id number] Apr, Dental examination V72.2 [facility] [address] [id number] [address] [place] [phone] Apr, [facility] [address] [id number] [address] [place] [id number] Apr, [facility] [address] [id number] [address] [place] [id number] March, Diabetes mellitus type 1 250 .01 [facility] [address] [id number] [address] [place] [phone] March, [facility] [address] [id number] [address] [place] [phone] Feb, [facility] [address] [id number] [address] [place] [id number] Feb, [facility] [address] [id number] [address] [place] [id number] Jan, [facility] [address] [id number] [address] [place] [id number] Jan, [facility] [address] [id number] [address] [place] [id number] Jan, [facility] [address] [id number] [address] [place] [id number] Jan, [facility] [address] [id number] [address] [place] [id number] Dec, [facility] [address] [id number] [address] [place] [phone] Dec, [facility] [address] [id number] [address] [place] [address], [place] [id number] Nov, [facility] [address] [id number] [address] [place] [address], [place] [address] Nov, [facility] [address] [id number] [address] [place] [address], [place] [address] Nov, [facility] [address] [id number] [address] [place] [address], [place] [address] Nov, [facility] [address] [id number] [address] [place] [address], [place] [address] Nov, [facility] [address] [id number] [address] [place] [address], [place] [address] Nov, [facility] [address] [id number] [address] [place] [address], [place] [address] Nov, [facility] [address] [id number] [address] [place] [address], [place] [address] Oct, [facility] [address] [id number] [address] [place] [address], [place] [address] Oct, [facility] [address] [id number] [address] [place] [address], [place] [address] Sep, [facility] [address] [id number] [address] [place] [address], [place] [address] Aug, [facility] [address] [id number] [address] [place] [address] Aug, [facility] [address] [id number] [address] [place] [address], [place] [address] Aug, [facility] [address] [id number] [address] [place] [address], [place] [address] Aug, [facility] [address] [id number] [address] [place] [address], [place] [address] Aug, [facility] [address] [id number] [address] [place] [address] Aug, [facility] [address] [id number] [address] [place] [address], [place] [address] Aug, [facility] [address] [id number] [address] [place] [address], [place] [address] Aug, [facility] [address] [id number] [address] [place] [address], [place] [address] Aug, [facility] [address] [id number] [address] [place] [address], [place] [address] Aug, [facility] [address] [id number] [address] [place] [address], [place] [address] Aug, [facility] [address] [id number] [address] [place] [address], [place] [address] Aug, [facility] [address] [id number] [address] [place] [address], [place] [address] Aug, [facility] [address] [id number] [address] [place] [address], [place] [address] Aug, [facility] [address] [id number] [address] [place] [address], [place] [address] Jul, [facility] [address] [id number] [address] [place] [address], [place] [address] Jul, [facility] [address] [id number] [address] [place] [address], [place] [address] Jul, [facility] [address] [id number] [address] [place] [address], [place] [address] Jul, [facility] [address] [id number] [address] [place] [address], [place] [address] Jun, [facility] [address] [id number] [address] [place] [address], [place] [address] Jun, [facility] [address] [id number] [address] [place] [address], [place] [address] Jun, [facility] [address] [id number] [facility] [place] [address] Jun, [facility] [address] [id number] [facility] [place] [address] May, [facility] [address] [id number] [facility] [place] [address] May, [facility] [address] [id number] [address] [place] [address], [place] [address] May, [facility] [address] [id number] [address] [place] [address], [place] [address] May, [facility] [address] [id number] [address] [place] [address], [place] [address] May, [facility] [address] [id number] [address] [place] [address], [place] [address] May, [facility] [address] [id number] [address] [place] [address], [place] [address] May, [facility] [address] [id number] [address] [place] [address], [place] [address] May, [facility] [address] [id number] [address] [place] [address], [place] [address] May, [facility] [address] [id number] [address] [place] [address], [place] [address] May, [facility] [address] [id number] [address] [place] [address], [place] [address] May, [facility] [address] [id number] [address] [place] [address], [place] [address] May, [facility] [address] [id number] [address] [place] [address], [place] [address] May, [facility] [address] [id number] [address] [place] [address], [place] [address] Apr, [facility] [address] [id number] [address] [place] [address], [place] [address] Apr, [facility] [address] [id number] [facility] [place] [address] Apr, [facility] [address] [id number] [facility] [place] [address] Apr, [facility] [address] [id number] [address] [place] [address], [place] [address] Apr, [facility] [address] [id number] [address] [place] [address], [place] [address] Apr, [facility] [address] [id number] [address] [place] [address], [place] [address] Apr, [facility] [address] [id number] [address] [place] [address], [place] [address] Apr, [facility] [address] [id number] [address] [place] [address], [place] [address] Apr, [facility] [address] [id number] [address] [place] [address], [place] [address] Apr, [facility] [address] [id number] [address] [place] [address], [place] [address] Apr, [facility] [address] [id number] [address] [place] [address], [place] [address] Apr, [facility] [address] [id number] [address] [place] [address], [place] [address] Apr, [facility] [address] [id number] [address] [place] [address], [place] [address] Apr, [facility] [address] [id number] [address] [place] [address], [place] [address] March, [facility] [address] [id number] [address] [place] [address], [place] [address] March, [facility] [address] [id number] [address] [place] [address], [place] [address] March, [facility] [address] [id number] [address] [place] [address], [place] [address] March, [facility] [address] [id number] [address] [place] [address], [place] [address] March, [facility] [address] [id number] [address] [place] [address], [place] [address] March, [facility] [address] [id number] [address] [place] [address], [place] [address] March, [facility] [address] [id number] [address] [place] [address], [place] [address] March, [facility] [address] [id number] [address] [place] [address], [place] [address] March, [facility] [address] [id number] [address] [place] [address], [place] [address] March, [facility] [address] [id number] [address] [place] [address], [place] [address] Feb, [facility] [address] [id number] [address] [place] [address], [place] [address] Feb, [facility] [address] [id number] [address] [place] [address], [place] [address] Feb, [facility] [address] [id number] [address] [place] [address], [place] [address] Feb, [facility] [address] [id number] [address] [place] [address], [place] [address] Feb, [facility] [address] [id number] [address] [place] [address], [place] [address] Feb, [facility] [address] [id number] [address] [place] [address], [place] [address] Feb, [facility] [address] [id number] [address] [place] [address], [place] [address] Feb, [facility] [address] [id number] [address] [place] [address], [place] [address] Jan, [facility] [address] [id number] [facility] [place] [address] 18 Jan, 2014 [facility] [address] [id number] [facility] [place] [address] Jan, [facility] [address] [id number] [facility] [place] [address] Jan, [facility] [address] [id number] [address] [place] [address], [place] [address] Jan, [facility] [address] [id number] [address] [place] [address], [place] [address] Jan, [facility] [address] [id number] [address] [place] [address], [place] [address] Jan, [facility] [address] [id number] [address] [place] [address], [place] [address] Jan, [facility] [address] [id number] [address] [place] [address], [place] [address] Jan, [facility] [address] [id number] [address] [place] [address], [place] [address] Jan, [facility] [address] [id number] [address] [place] [address], [place] [address] Dec, [facility] [address] [id number] [address] [place] [address], [place] [address] Dec, [facility] [address] [id number] [address] [place] [address], [place] [address] Nov, [facility] [address] [id number] [address] [place] [address], [place] [address] Nov, [facility] [address] [id number] [address] [place] [address], [place] [address] Nov, [facility] [address] [id number] [address] [place] [address], [place] [address] Nov, [facility] [address] [id number] [address] [place] [address], [place] [address] Nov, [facility] [address] [id number] [address] [place] [address], [place] [address] Nov, [facility] [address] [id number] [address] [place] [address], [place] [address] Nov, [facility] [address] [id number] [address] [place] [address], [place] [address] Nov, [facility] [address] [id number] [address] [place] [address], [place] [address] Oct, [facility] [address] [id number] [address] [place] [address], [place] [address] Oct, [facility] [address] [id number] [address] [place] [address], [place] [address] Oct, [facility] [address] [id number] [address] [place] [address], [place] [address] Oct, [facility] [address] [id number] [address] [place] [address], [place] [address] Oct, [facility] [address] [id number] [address] [place] [address], [place] [address] Oct, [facility] [address] [id number] [address] [place] [address], [place] [address] Sep, [facility] [address] [id number] [address] [place] [address], [place] [address] Sep, [facility] [address] [id number] [address] [place] [address], [place] [address] Sep, [facility] [address] [id number] [address] [place] [address], [place] [address] Sep, [facility] [address] [id number] [address] [place] [address], [place] [address] 05 Sep, 2013 [facility] [address] [id number] [address] [place] [address], [place] [address] 30 Aug, 2013 [facility] [address] [id number] [address] [place] [address], [place] [address] Aug, [facility] [address] [id number] [address] [place] [address], [place] [address] Aug, [facility] [address] [id number] [address] [place] [address], [place] [address] Aug, [facility] [address] [id number] [address] [place] [address], [place] [address] Aug, [facility] [address] [id number] [address] [place] [address], [place] [address] Aug, [facility] [address] [id number] [address] [place] [address], [place] [address] Jul, [facility] [address] [id number] [address] [place] [address], [place] [address] Jul, [facility] [address] [id number] [address] [place] [address], [place] [address] Jul, [facility] [address] [id number] [address] [place] [address], [place] [address] Jun, [facility] [address] [id number] [address] [place] [address], [place] [address] Jun, [facility] [address] [id number] [address] [place] [address], [place] [address] May, [facility] [address] [id number] [address] [place] [address], [place] [address] May, [facility] [address] [id number] [address] [place] [address], [place] [address] Apr, [facility] [address] [id number] [address] [place] [address], [place] [address] Apr, [facility] [address] [id number] [address] [place] [address], [place] [address] Apr, [facility] [address] [id number] [address] [place] [address], [place] [address] March, [facility] [address] [id number] [address] [place] [address], [place] [address] Feb, [facility] [address] [id number] [address] [place] [address], [place] [address] Feb, [facility] [address] [id number] [address] [place] [address], [place] [address] Jan, [facility] [address] [id number] [address] [place] [address], [place] [address] Jan, [facility] [address] [id number] [address] [place] [address], [place] [address] Jan, [facility] [address] [id number] [address] [place] [address], [place] [address] 08 Jan, 2013 [facility] [address] [id number] [address] [place] [address], [place] [address] Jan, [facility] [address] [id number] [address] [place] [address], [place] [address] Dec, [facility] [address] [id number] [address] [place] [address], [place] [address] Dec, [facility] [address] [id number] [address] [place] [address], [place] [address] Dec, [facility] [address] [id number] [address] [place] [address], [place] [address] Dec, [facility] [address] [id number] [address] [place] [address], [place] [address] Dec, [facility] [address] [id number] [address] [place] [address], [place] [address] Dec, [facility] [place] [id number] Nov, [facility] [address] [id number] [address] [place] [address], [place] [address] Nov, [facility] [address] [id number] [address] [place] [address] [place] [address] Nov, [facility] [address] [id number] [address] [place] [address], [place] [address] Nov, [facility] [address] [id number] [address] [place] [address], [place] [address] Nov, [facility] [address] [id number] [address] [place] [address], [place] [address] Oct, [facility] [address] [id number] [address] [place] [address], [place] [address] Oct, [facility] [address] [id number] [address] [place] [address], [place] [address] Oct, [facility] [address] [id number] [address] [place] [address], [place] [address] Oct, [facility] [address] [id number] [address] [place] [address], [place] [address] Oct, [facility] [address] [id number] [address] [place] [address], [place] [address] Oct, [facility] [address] [id number] [address] [place] [address], [place] [address] Oct, [facility] [address] [id number] [address] [place] [address], [place] [address] Oct, [facility] [address] [id number] [address] [place] [address], [place] [address] Sep, [facility] [address] [id number] [address] [place] [address], [place] [address] Sep, [facility] [address] [id number] [address] [place] [address], [place] [address] Sep, [facility] [address] [id number] [address] [place] [address], [place] [address] Sep, [facility] [address] [id number] [address] [place] [address], [place] [id number] 14 Sep, 2012 [facility] [address] [id number] [address] [place] [id number] Sep, [facility] [address] [id number] [address] [place] [id number] Sep, [facility] [address] [id number] [address] [place] [id number] Sep, [facility] [address] [id number] [address] [place] [id number] Sep, [facility] [address] [id number] [address] [place] [id number] Sep, [facility] [address] [id number] [address] [place] [id number] Sep, [facility] [address] [id number] [address] [place] [id number] Sep, [facility] [address] [id number] [address] [place] [id number] Sep, [facility] [address] [id number] [address] [place] [id number] Sep, [facility] [address] [id number] [address] [place] [id number] Sep, [facility] [address] [id number] [address] [place] [id number] Sep, IMMUNIZATIONS No Known Immunizations SOCIAL HISTORY [...]
--- OUTSIDE RECORDS SUMMARY | 2020-04-17 21:33 | XMS REPORT ---
Author Author Curt Barr Doctor Organization [facility] Address Unknown Phone Unavailable Care Team Providers Care Chairman And Ceo Name Role Phone Migration, Doctor Unavailable Unavailable PROBLEMS Type Condition ICD9-CM Code ADR19-KI Code Onset Dates Condition S tatus SNOMED Code Problem Hypertension, essential I10 Active 40361102 Problem Gastroparesis K31.84 Active 806959 006 Problem Type 1 diabetes mellitus with other diab etic neurological complication E10.49 Active 50208596 Problem Controlled diabetes mellitus type 1 without complications E10.9 Active 67919703 Problem Mood disorder F39 Active 188525 05 Problem Other chronic pain G89.29 Active 8 4137599 Problem 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 Active 74340898 Problem Type 1 diabetes mellitus with hyperglycemia E10.65 Active [id number] Problem Type 1 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 Active 65233252 Problem Chronic fatigue R53.82 Active 8422 9001 ALLERGIES No Information ENCOUNTERS Encounter Location Date Diagnosis [facility] [address] [facility] [id number] [address] [place] [id number] May, [facility] [address] [facility] [id number] [address] [place] [id number] May, [facility] [address] [facility] [id number] [address] [place] [id number] May, Other chronic pain G89.29 [facility] [address] [facility] [id number] [address] [place] [id number] May, [facility] [address] [facility] [id number] [address] [place] [id number] May, Type 1 diabetes mellitus wit h other diabetic neurological complication E10.49 [facility] [address] [facility] [id number] [address] [place] [id number] Apr, [facility] [address] [facility] [id number] [address] [place] [id number] Apr, Type 1 diabetes mellitus wit h other diabetic neurological complication E10.49 [facility] [address] [id number] [address] [place] [id number] Apr, Encounter for Medicare annua l wellness exam Z00.00 [facility] [address] [facility] [id number] [address] [place] [id number] March, Encounter for Medicare annua l wellness exam Z00.00 and Type 1 diabetes mellitus with other diabetic neurological complication E10.49 [facility] [address] [id number] [address] [place] [id number] Feb, Type 1 diabetes mellitus wit h other diabetic neurological complication E10.49 [facility] [address] [facility] [id number] [address] [place] [id number] Feb, Encounter for Medicare annua l wellness exam Z00.00 ; Mood disorder F39 ; Type 1 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 ; Hypertension, essential I10 and Chronic fatigue R53.82 [facility] [address] [id number] [address] [place] [id number] Jan, Type 1 diabetes mellitus wit h other diabetic neurological complication E10.49 [facility] [address] [facility] [id number] [address] [place] [id number] Jan, [facility] [address] [id number] [address] [place] [id number] Jan, Other chronic pain G89.29 [facility] [address] [id number] [address] [place] [id number] Dec, [facility] [address] [id number] [address] [place] [id number] 08 Dec, 2018 Type 1 diabetes mellitus wit h other diabetic neurological complication E10.49 [facility] [address] [id number] [address] [place] [id number] 05 Dec, 2018 Other chronic pain G89.29 [facility] [address] [id number] [address] [place] [id number] Nov, [facility] [address] [id number] [address] [place] [id number] Nov, Caries K02.9 [facility] [address] [id number] [address] [place] [id number] 15 Nov, 2018 Type 1 diabetes mellitus wit h other diabetic neurological complication E10.49 [facility] [address] [id number] [address] [place] [id number] 07 Nov, 2018 Controlled diabetes mellitus type 1 without complications E10.9 ; Other chronic pain G89.29 and Pain in left knee M25.562 [facility] [address] [id number] [address] [place] [address] [id number] Oct, Dental examination Z01.20 [facility] [address] [facility] [id number] [address] [place] [id number] 14 Oct, 2018 Cutaneous abscess of unspeci fied foot L02.619 and Cellulitis of unspecified part of limb L03.119 [facility] [address] [id number] [address] [place] [id number] 11 Oct, 2018 [facility] [address] [facility] [id number] [address] [place] [id number] 10 Oct, 2018 Type 1 diabetes mellitus wit h other diabetic neurological complication E10.49 [facility] [address] [id number] [address] [place] [address] [id number] 06 Oct, 2018 Dental examination Z01.20 an d Caries K02.9 [facility] [address] [id number] [address] [place] [id number] 04 Oct, 2018 Cutaneous abscess of left fo ot L02.612 and Cellulitis of left lower limb L03.116 [facility] [address] [facility] [id number] [address] [place] [id number] 04 Oct, 2018 Dental examination Z01.20 an d Pain, dental K08.89 [facility] [address] [id number] [address] [place] [id number] Sep, Left foot pain M79.672 and L eft anterior knee pain M25.562 [facility] [address] [facility] [id number] [address] [place] [id number] Sep, Type 1 diabetes mellitus wit h other diabetic neurological complication E10.49 [facility] [address] [facility] [id number] [address] [place] [id number] Sep, [facility] [address] [facility] [id number] [address] [place] [id number] Aug, Type 1 diabetes mellitus wit h other diabetic neurological complication E10.49 [facility] [address] [place] [id number] [address] [place] [id number] 10 Aug, 2018 Encounter for immunization Z 23 [facility] [address] [facility] [id number] [address] [place] [id number] 05 Aug, 2018 Type 1 diabetes mellitus wit h hyperglycemia E10.65 [facility] [address] [place] [id number] [address] [place] [id number] Jul, Type 1 diabetes mellitus wit h hyperglycemia E10.65 [facility] [address] [facility] [id number] [address] [place] [id number] Jul, [facility] [address] [facility] [id number] [address] [place] [id number] Jul, [facility] [address] [facility] [id number] [address] [place] [id number] Jul, Type 1 diabetes mellitus wit h other diabetic neurological complication E10.49 [facility] [address] [facility] [id number] [address] [place] [id number] Jul, Type 1 diabetes mellitus wit h other diabetic neurological complication E10.49 and Mood disorder F39 [facility] [address] [facility] [id number] [address] [place] [id number] Jun, [facility] [address] [facility] [id number] [address] [place] [id number] Jun, Type 1 diabetes mellitus wit h other diabetic neurological complication E10.49 and Chronic fatigue R53.82 [facility] [address] [id number] [address] [place] [id number] May, Type 1 diabetes mellitus wit h other diabetic neurological complication E10.49 [facility] [address] [id number] [address] [place] [id number] May, [facility] [address] [id number] [address] [place] [id number] May, [facility] [address] [id number] [address] [place] [id number] Apr, [facility] [address] [id number] [address] [place] [id number] Apr, Type 1 diabetes mellitus wit h other diabetic neurological complication E10.49 [facility] [address] [facility] [id number] [address] [place] [id number] March, [facility] [address] [id number] [address] [place] [id number] Feb, [facility] [address] [id number] [address] [place] [id number] Feb, Type 1 diabetes mellitus wit h other diabetic neurological complication E10.49 ; Tobacco abuse Z72.0 and Tobacco abuse counseling Z71.6 [facility] [address] [id number] [address] [place] [id number] Jan, Type 1 diabetes mellitus wit h hyperglycemia E10.65 [facility] [address] [id number] [address] [place] [id number] Jan, [facility] [address] [id number] [address] [place] [id number] Dec, Tobacco abuse Z72.0 [facility] [address] [facility] [id number] [address] [place] [id number] Dec, Type 1 diabetes mellitus wit h hyperglycemia E10.65 [facility] [address] [id number] [address] [place] [id number] Dec, Type 1 diabetes mellitus wit h hyperglycemia E10.65 ; Tobacco abuse Z72.0 and Tobacco abuse counseling Z71.6 [facility] [address] [facility] [id number] [address] [place] [id number] Nov, Type 1 diabetes mellitus wit h hyperglycemia E10.65 [facility] [address] [facility] [id number] [address] [place] [id number] Oct, Type 1 diabetes mellitus wit h hyperglycemia E10.65 [facility] [address] [facility] [id number] [address] [place] [id number] Oct, Type 1 diabetes mellitus wit h hyperglycemia E10.65 [facility] [address] [facility] [id number] [address] [place] [id number] Sep, Type 1 diabetes mellitus wit h hyperglycemia E10.65 [facility] [address] [facility] [id number] [address] [place] [id number] Aug, Type 1 diabetes mellitus wit h hyperglycemia E10.65 [facility] [address] [facility] [id number] [address] [place] [id number] Aug, [facility] [address] [facility] [id number] [address] [place] [id number] Aug, Type 1 diabetes mellitus wit h hyperglycemia E10.65 [facility] [address] [facility] [id number] [address] [place] [id number] Aug, Encounter for immunization Z 23 [facility] [address] [facility] [id number] [address] [place] [id number] Aug, Type 1 diabetes mellitus wit h hyperglycemia E10.65 [facility] [address] [facility] [id number] [address] [place] [id number] Jul, Type 1 diabetes mellitus wit h hyperglycemia E10.65 [facility] [address] [facility] [id number] [address] [place] [id number] Jul, Type 1 diabetes mellitus wit h hyperglycemia E10.65 [facility] [address] [id number] [address] [place] [id number] May, Type 1 diabetes mellitus wit h hyperglycemia E10.65 [facility] [address] [id number] [address] [place] [id number] May, [facility] [address] [id number] [address] [place] [id number] Apr, [facility] [address] [id number] [address] [place] [id number] Apr, Type 1 diabetes mellitus wit h hyperglycemia E10.65 [facility] [address] [id number] [address] [place] [id number] March, [facility] [address] [id number] [address] [place] [id number] March, [facility] [address] [facility] [id number] [address] [place] [id number] Jan, [facility] [address] [id number] [address] [place] [id number] Jan, [facility] [address] [id number] [address] [place] [id number] Jan, Type 1 diabetes mellitus wit h diabetic polyneuropathy E10.42 [facility] [address] [id number] [address] [place] [id number] Jan, Type 1 diabetes mellitus wit h hyperglycemia E10.65 ; Excessive cerumen in both ear canals H61.23 and Controlled diabetes mellitus type 1 without complications E10.9 [facility] [address] [id number] [address] [place] [id number] Dec, [facility] [address] [facility] [id number] [address] [place] [id number] Dec, [facility] [address] [id number] [address] [place] [id number] Dec, [facility] [address] [facility] [id number] [address] [place] [id number] Dec, [facility] [address] [id number] [address] [place] [id number] Nov, [facility] [address] [id number] [address] [place] [id number] Nov, [facility] [address] [id number] [address] [place] [id number] Oct, Type 1 diabetes mellitus wit h hyperglycemia E10.65 [facility] [address] [id number] [address] [place] [id number] Sep, [facility] [address] [id number] [address] [place] [id number] Sep, [facility] [address] [id number] [address] [place] [id number] Sep, Controlled diabetes mellitus type 1 without complications E10.9 [facility] [address] [id number] [address] [place] [id number] Sep, [facility] [address] [id number] [address] [place] [address] [id number] Aug, Dental caries K02.9 [facility] [address] [id number] [address] [place] [id number] Aug, Type 1 diabetes mellitus wit h diabetic polyneuropathy E10.42 [facility] [address] [id number] [address] [place] [id number] Aug, [facility] [address] [facility] [id number] [address] [place] [id number] Aug, [facility] [address] [id number] [address] [place] [id number] Aug, [facility] [address] [facility] [id number] [address] [place] [id number] Jul, Type 1 diabetes mellitus wit h hyperglycemia E10.65 [facility] [address] [id number] [address] [place] [id number] Jul, Type 1 diabetes mellitus wit h hyperglycemia E10.65 ; Tooth pain K08.8 and Encounter for immunization Z23 [facility] [address] [id number] [address] [place] [address] [id number] 08 Jul, 2016 Dental examination Z01.20 [facility] [address] [id number] [address] [place] [id number] 08 Jul, 2016 [facility] [address] [id number] [address] [place] [id number] Jul, [facility] [address] [id number] [address] [place] [id number] Jul, [facility] [address] [id number] [address] [place] [id number] Jun, [facility] [address] [id number] [address] [place] [id number] May, [facility] [address] [id number] [address] [place] [id number] Apr, [facility] [address] [id number] [address] [place] [id number] Apr, [facility] [address] [id number] [address] [place] [id number] Apr, [facility] [address] [id number] [address] [place] [id number] March, [facility] [address] [id number] [address] [place] [id number] March, [facility] [address] [id number] [address] [place] [id number] Feb, [facility] [address] [id number] [address] [place] [id number] Feb, [facility] [address] [id number] [address] [place] [id number] Feb, Type 1 diabetes mellitus wit h hyperglycemia E10.65 [facility] [address] [id number] [address] [place] [id number] 31 Jan, 2016 [facility] [address] [facility] [id number] [address] [place] [id number] Jan, [facility] [address] [facility] [id number] [place] [id number] 08 Jan, 2016 [facility] [address] [facility] [id number] [place] [id number] Jan, [facility] [address] [place] [place] [id number] [place] [id number] Dec, [facility] [address] [place] [id number] [place] [id number] Nov, [facility] [address] [place] [id number] [place] [id number] Nov, [facility] [address] [id number] Oct, [facility] [address] [id number] 04 Oct, 2015 Type 1 diabetes mellitus wit h 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 ; Type 1 diabetes mellitus with hyperglycemia E10.65 ; Gastroparesis K31.84 and Esophageal stricture K22.2 [facility] [address] [id number] Oct, [facility] [address] [id number] Sep, [facility] [address] [place] [id number] [place] [id number] Sep, Type 1 diabetes mellitus wit h other diabetic neurological complication E10.49 [facility] [address] [id number] 22 Aug, 2015 Encounter for immunization Z 23 [facility] [address] [place] [place] [id number] [address] [place] [id number] Aug, [facility] [address] [id number] [address] [place] [id number] Aug, [facility] [address] [id number] [address] [place] [id number] Jul, [facility] [address] [id number] [address] [place] [id number] Jul, [facility] [address] [id number] [address] [place] [id number] Jun, [facility] [address] [id number] [address] [place] [id number] Jun, [facility] [address] [id number] [address] [place] [id number] Jun, [facility] [address] [id number] [address] [place] [id number] May, [facility] [address] [id number] [address] [place] [id number] May, [facility] [address] [id number] [address] [place] [id number] May, Diabetes type 1, controlled 250.01 [facility] [address] [id number] [address] [place] [id number] May, [facility] [address] [id number] [address] [place] [id number] May, [facility] [address] [id number] [address] [place] [address] [id number] Apr, Dental examination V72.2 [facility] [address] [id number] [address] [place] [id number] Apr, [facility] [address] [id number] [address] [place] [id number] Apr, [facility] [address] [id number] [address] [place] [id number] Apr, [facility] [address] [id number] [address] [place] [id number] Apr, [facility] [address] [id number] [address] [place] [id number] Apr, [facility] [address] [id number] [address] [place] [address] [id number] Apr, Dental examination V72.2 [facility] [address] [id number] [address] [place] [id number] Apr, [facility] [address] [id number] [address] [place] [id number] Apr, [facility] [address] [id number] [address] [place] [id number] March, Diabetes mellitus type 1 250 .01 [facility] [address] [id number] [address] [place] [id number] March, [facility] [address] [id number] [address] [place] [id number] Feb, [facility] [address] [id number] [address] [place] [id number] Feb, [facility] [address] [id number] [address] [place] [id number] Jan, [facility] [address] [id number] [address] [place] [id number] Jan, [facility] [address] [id number] [address] [place] [id number] Jan, [facility] [address] [id number] [address] [place] [id number] Jan, [facility] [address] [id number] [address] [place] [id number] Dec, [facility] [address] [id number] [address] [place] [id number] Dec, [facility] [address] [id number] [address] [place] [id number] Nov, [facility] [address] [id number] [address] [place] [address], [place] [id number] Nov, [facility] [address] [id number] [address] [place] [address], [place] [id number] Nov, [facility] [address] [id number] [address] [place] [address], [place] [id number] Nov, [facility] [address] [id number] [address] [place] [address], [place] [id number] Nov, [facility] [address] [id number] [address] [place] [address], [place] [id number] Nov, [facility] [address] [id number] [address] [place] [address], [place] [id number] Nov, [facility] [address] [id number] [address] [place] [address], [place] [id number] Oct, [facility] [address] [id number] [address] [place] [address], [place] [id number] Oct, [facility] [address] [id number] [address] [place] [address], [place] [address] Sep, [facility] [address] [id number] [address] [place] [address], [place] [address] Aug, [facility] [address] [id number] [address] [place] [address], [place] [address] Aug, [facility] [address] [id number] [address] [place] [address], [place] [address] Aug, [facility] [address] [id number] [address] [place] [address], [place] [address] Aug, [facility] [address] [id number] [address] [place] [address], [place] [address] Aug, [facility] [address] [id number] [address] [place] [address], [place] [address] Aug, [facility] [address] [id number] [address] [place] [address], [place] [address] Aug, [facility] [address] [id number] [address] [place] [address], [place] [address] Aug, [facility] [address] [id number] [address] [place] [address], [place] [address] Aug, [facility] [address] [id number] [address] [place] [address], [place] [address] Aug, [facility] [address] [id number] [address] [place] [address], [place] [address] Aug, [facility] [address] [id number] [address] [place] [address], [place] [address] Aug, [facility] [address] [id number] [address] [place] [address], [place] [address] Aug, [facility] [address] [id number] [address] [place] [address], [place] [address] Aug, [facility] [address] [id number] [address] [place] [address], [place] [address] Jul, [facility] [address] [id number] [address] [place] [address], [place] [address] Jul, [facility] [address] [id number] [address] [place] [address], [place] [address] Jul, [facility] [address] [id number] [address] [place] [address], [place] [address] Jul, [facility] [address] [id number] [address] [place] [address], [place] [address] Jun, [facility] [address] [id number] [address] [place] [address], [place] [address] Jun, [facility] [address] [id number] [address] [place] [address], [place] [address] Jun, [facility] [address] [id number] [address] [place] [address], [place] [address] Jun, [facility] [address] [id number] [address] [place] [address], [place] [address] May, [facility] [address] [id number] [address] [place] [address], [place] [address] May, [facility] [address] [id number] [address] [place] [address], [place] [address] May, [facility] [address] [id number] [address] [place] [address], [place] [address] May, [facility] [address] [id number] [address] [place] [address], [place] [address] May, [facility] [address] [id number] [address] [place] [address], [place] [address] May, [facility] [address] [id number] [address] [place] [address], [place] [address] May, [facility] [address] [id number] [address] [place] [address], [place] [address] May, [facility] [address] [id number] [address] [place] [address], [place] [address] May, [facility] [address] [id number] [address] [place] [address], [place] [address] May, [facility] [address] [id number] [address] [place] [address], [place] [address] May, [facility] [address] [id number] [address] [place] [address], [place] [address] May, [facility] [address] [id number] [address] [place] [address], [place] [address] May, [facility] [address] [id number] [address] [place] [address], [place] [address] Apr, [facility] [address] [id number] [address] [place] [address], [place] [address] Apr, [facility] [address] [id number] [address] [place] [address], [place] [address] Apr, [facility] [address] [id number] [facility] [place] [address] Apr, [facility] [address] [id number] [address] [place] [address], [place] [address] Apr, [facility] [address] [id number] [address] [place] [address], [place] [address] Apr, [facility] [address] [id number] [address] [place] [address], [place] [address] Apr, [facility] [address] [id number] [address] [place] [address], [place] [address] Apr, [facility] [address] [id number] [address] [place] [address], [place] [address] Apr, [facility] [address] [id number] [address] [place] [address], [place] [address] Apr, [facility] [address] [id number] [address] [place] [address], [place] [address] Apr, [facility] [address] [id number] [address] [place] [address], [place] [address] Apr, [facility] [address] [id number] [address] [place] [address], [place] [address] Apr, [facility] [address] [id number] [address] [place] [address], [place] [address] Apr, [facility] [address] [id number] [address] [place] [address], [place] [address] March, [facility] [address] [id number] [address] [place] [address], [place] [address] March, [facility] [address] [id number] [address] [place] [address], [place] [address] March, [facility] [address] [id number] [address] [place] [address], [place] [address] March, [facility] [address] [id number] [facility] [place] [address] March, [facility] [address] [id number] [address] [place] [address], [place] [address] March, [facility] [address] [id number] [address] [place] [address], [place] [address] March, [facility] [address] [id number] [address] [place] [address], [place] [address] March, [facility] [address] [id number] [address] [place] [address], [place] [address] March, [facility] [address] [id number] [address] [place] [address], [place] [address] March, [facility] [address] [id number] [address] [place] [address], [place] [address] Feb, [facility] [address] [id number] [address] [place] [address], [place] [address] Feb, [facility] [address] [id number] [address] [place] [address], [place] [address] Feb, [facility] [address] [id number] [address] [place] [address], [place] [address] Feb, [facility] [address] [id number] [address] [place] [address], [place] [address] Feb, [facility] [address] [id number] [address] [place] [address], [place] [address] Feb, [facility] [address] [id number] [address] [place] [address], [place] [address] Feb, [facility] [address] [id number] [address] [place] [address], [place] [address] Feb, [facility] [address] [id number] [address] [place] [address], [place] [address] Jan, [facility] [address] [id number] [address] [place] [address], [place] [address] 18 Jan, 2014 [facility] [address] [id number] [facility] [place] [address] 18 Jan, 2014 [facility] [address] [id number] [facility] [place] [address] 18 Jan, 2014 [facility] [address] [id number] [facility] [place] [address] Jan, [facility] [address] [id number] [address] [place] [address], [place] [address] Jan, [facility] [address] [id number] [address] [place] [address], [place] [address] Jan, [facility] [address] [id number] [address] [place] [address], [place] [address] Jan, [facility] [address] [id number] [address] [place] [address], [place] [address] Jan, [facility] [address] [id number] [address] [place] [address], [place] [address] Jan, [facility] [address] [id number] [address] [place] [address], [place] [address] Dec, [facility] [address] [id number] [address] [place] [address], [place] [address] Dec, [facility] [address] [id number] [address] [place] [address], [place] [address] Nov, [facility] [address] [id number] [address] [place] [address], [place] [address] Nov, [facility] [address] [id number] [address] [place] [address], [place] [address] Nov, [facility] [address] [id number] [address] [place] [address], [place] [address] Nov, [facility] [address] [id number] [address] [place] [address], [place] [address] Nov, [facility] [address] [id number] [address] [place] [address], [place] [address] 15 Nov, 2013 [facility] [address] [id number] [address] [place] [address], [place] [address] Nov, [facility] [address] [id number] [address] [place] [address], [place] [address] Nov, [facility] [address] [id number] [address] [place] [address], [place] [address] Oct, [facility] [address] [id number] [address] [place] [address], [place] [address] Oct, [facility] [address] [id number] [address] [place] [address], [place] [address] Oct, [facility] [address] [id number] [address] [place] [address], [place] [address] Oct, [facility] [address] [id number] [address] [place] [address], [place] [address] Oct, [facility] [address] [id number] [address] [place] [address], [place] [address] Oct, [facility] [address] [id number] [address] [place] [address], [place] [address] Sep, [facility] [address] [id number] [address] [place] [address], [place] [address] Sep, [facility] [address] [id number] [address] [place] [address], [place] [address] Sep, [facility] [address] [id number] [address] [place] [address], [place] [address] Sep, [facility] [address] [id number] [address] [place] [address], [place] [address] 05 Sep, 2013 [facility] [address] [id number] [address] [place] [address], [place] [address] Aug, [facility] [address] [id number] [address] [place] [address], [place] [address] Aug, [facility] [address] [id number] [address] [place] [address], [place] [address] Aug, [facility] [address] [id number] [address] [place] [address], [place] [address] Aug, [facility] [address] [id number] [address] [place] [address], [place] [address] Aug, [facility] [address] [id number] [address] [place] [address], [place] [address] Aug, [facility] [address] [id number] [address] [place] [address], [place] [address] Jul, [facility] [address] [id number] [address] [place] [address], [place] [address] Jul, [facility] [address] [id number] [address] [place] [address], [place] [address] Jul, [facility] [address] [id number] [address] [place] [address], [place] [address] Jun, [facility] [address] [id number] [address] [place] [address], [place] [address] Jun, [facility] [address] [id number] [address] [place] [address], [place] [address] May, [facility] [address] [id number] [address] [place] [address], [place] [address] May, [facility] [address] [id number] [address] [place] [address], [place] [address] Apr, [facility] [address] [id number] [address] [place] [address], [place] [address] Apr, [facility] [address] [id number] [address] [place] [address], [place] [address] Apr, [facility] [address] [id number] [address] [place] [address], [place] [address] March, [facility] [address] [id number] [address] [place] [address], [place] [address] Feb, [facility] [address] [id number] [address] [place] [address], [place] [address] Feb, [facility] [address] [id number] [address] [place] [address], [place] [address] 28 Jan, 2013 [facility] [address] [id number] [address] [place] [address], [place] [address] Jan, [facility] [address] [id number] [address] [place] [address], [place] [address] 13 Jan, 2013 [facility] [address] [id number] [address] [place] [address], [place] [address] 08 Jan, 2013 [facility] [address] [id number] [address] [place] [address], [place] [address] Jan, [facility] [address] [id number] [address] [place] [address], [place] [address] 28 Dec, 2012 [facility] [address] [id number] [address] [place] [address], [place] [address] Dec, [facility] [address] [id number] [address] [place] [address], [place] [address] 18 Dec, 2012 [facility] [address] [id number] [address] [place] [address], [place] [address] Dec, [facility] [address] [id number] [address] [place] [address], [place] [address] Dec, [facility] [address] [id number] [address] [place] [address], [place] [address] 05 Dec, 2012 [facility] [address] [place] [id number] 14 Nov, 2012 [facility] [address] [id number] [address] [place] [address], [place] [address] Nov, [facility] [address] [id number] [address] [place] [address], [place] [address] Nov, [facility] [address] [id number] [address] [place] [address], [place] [address] Nov, [facility] [address] [id number] [address] [place] [address], [place] [address] Nov, [facility] [address] [id number] [address] [place] [address], [place] [address] Oct, [facility] [address] [id number] [address] [place] [address], [place] [address] Oct, [facility] [address] [id number] [address] [place] [address], [place] [address] Oct, [facility] [address] [id number] [address] [place] [address], [place] [address] Oct, [facility] [address] [id number] [address] [place] [address], [place] [address] Oct, [facility] [address] [id number] [address] [place] [address], [place] [address] Oct, [facility] [address] [id number] [address] [place] [address], [place] [address] Oct, [facility] [address] [id number] [address] [place] [address], [place] [address] Oct, [facility] [address] [id number] [address] [place] [address], [place] [address] Sep, [facility] [address] [id number] [address] [place] [address], [place] [address] Sep, [facility] [address] [id number] [address] [place] [address], [place] [address] Sep, [facility] [address] [id number] [address] [place] [address], [place] [address] Sep, [facility] [address] [id number] [address] [place] [address], [place] [address] 14 Sep, 2012 [facility] [address] [id number] [address] [place] [address], [place] [address] Sep, [facility] [address] [id number] [address] [place] [address] Sep, [facility] [address] [id number] [address] [place] [id number] Sep, [facility] [address] [id number] [address] [place] [address] Sep, [facility] [address] [id number] [address] [place] [address] Sep, [facility] [address] [id number] [address] [place] [address] Sep, [facility] [address] [id number] [address] [place] [address] Sep, [facility] [address] [facility] [id number] [address] [place] [address] Sep, [facility] [address] [id number] [address] [place] [address] Sep, [facility] [address] [id number] [address] [place] [id number] Sep, [facility] [address] [facility] [id number] [address] [place] [id number] Sep, IMMUNIZATIONS No Known Immunizations SOCIAL HISTORY [...]
--- OUTSIDE RECORDS SUMMARY | 2020-04-17 21:33 | XMS REPORT ---
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 Name Role Phone BISMARK PATIÑO Unavailable PROBLEMS Type Condition ICD9-CM Code [id number] Code Onset Dates Condition S tatus SNOMED Code Problem Hypertension, essential I10 Active 49587529 Problem Gastroparesis K31.84 Active 174133 006 Problem Type 1 diabetes mellitus with other diab etic neurological complication E10.49 Active 57323050 Problem Controlled diabetes mellitus type 1 without complications E10.9 Active 29416534 Problem Mood disorder F39 Active 230466 05 Problem Other chronic pain G89.29 Active 8 0688857 Problem 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 Active 52552337 Problem Type 1 diabetes mellitus with hyperglycemia E10.65 Active [id number] Problem Type 1 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 Active 21405100 Problem Chronic fatigue R53.82 Active 8422 9001 ALLERGIES No Information ENCOUNTERS Encounter Location Date Diagnosis [facility] [address] [facility] [id number] [address] [place] [phone] May, [facility] [address] [facility] [id number] [address] [place] [phone] May, [facility] [address] [facility] [id number] [address] [place] [id number] Apr, [facility] [address] [facility] [id number] [address] [place] [phone] Apr, Type 1 diabetes mellitus wit h other diabetic neurological complication E10.49 [facility] [address] [facility] [id number] [address] [place] [id number] Apr, Encounter for Medicare annua l wellness exam Z00.00 [facility] [address] [facility] [id number] [address] [place] [phone] March, Encounter for Medicare annua l wellness exam Z00.00 and Type 1 diabetes mellitus with other diabetic neurological complication E10.49 [facility] [address] [id number] [address] [place] [id number] 10 Feb, 2019 Type 1 diabetes mellitus wit h other diabetic neurological complication E10.49 [facility] [address] [facility] [id number] [address] [place] [id number] 04 Feb, 2019 Encounter for Medicare annua l wellness exam Z00.00 ; Mood disorder F39 ; Type 1 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 ; Hypertension, essential I10 and Chronic fatigue R53.82 [facility] [address] [id number] [address] [place] [id number] 13 Jan, 2019 Type 1 diabetes mellitus wit h other diabetic neurological complication E10.49 [facility] [address] [id number] [address] [place] [id number] 11 Jan, 2019 [facility] [address] [id number] [address] [place] [id number] 07 Jan, 2019 Other chronic pain G89.29 [facility] [address] [id number] [address] [place] [id number] 11 Dec, 2018 [facility] [address] [id number] [address] [place] [id number] 08 Dec, 2018 Type 1 diabetes mellitus wit h other diabetic neurological complication E10.49 [facility] [address] [id number] [address] [place] [id number] 05 Dec, 2018 Other chronic pain G89.29 [facility] [address] [id number] [address] [place] [id number] Nov, [facility] [address] [id number] [address] [place] [address] [id number] Nov, Caries K02.9 [facility] [address] [id number] [address] [place] [id number] Nov, Type 1 diabetes mellitus wit h other diabetic neurological complication E10.49 [facility] [address] [id number] [address] [place] [id number] 07 Nov, 2018 Controlled diabetes mellitus type 1 without complications E10.9 ; Other chronic pain G89.29 and Pain in left knee M25.562 [facility] [address] [id number] [address] [place] [address] [id number] 18 Oct, 2018 Dental examination Z01.20 [facility] [address] [id number] [address] [place] [id number] 14 Oct, 2018 Cutaneous abscess of unspeci fied foot L02.619 and Cellulitis of unspecified part of limb L03.119 [facility] [address] [id number] [address] [place] [id number] 11 Oct, 2018 [facility] [address] [facility] [id number] [address] [place] [id number] 10 Oct, 2018 Type 1 diabetes mellitus wit h other diabetic neurological complication E10.49 [facility] [address] [id number] [address] [place] [address] [id number] 06 Oct, 2018 Dental examination Z01.20 an d Caries K02.9 [facility] [address] [facility] [id number] [address] [place] [id number] 04 Oct, 2018 Cutaneous abscess of left fo ot L02.612 and Cellulitis of left lower limb L03.116 [facility] [address] [facility] [id number] [address] [place] [id number] 04 Oct, 2018 Dental examination Z01.20 an d Pain, dental K08.89 [facility] [address] [facility] [id number] [address] [place] [id number] Sep, Left foot pain M79.672 and L eft anterior knee pain M25.562 [facility] [address] [facility] [id number] [address] [place] [id number] 12 Sep, 2018 Type 1 diabetes mellitus wit h other diabetic neurological complication E10.49 [facility] [address] [facility] [id number] [address] [place] [phone] Sep, [facility] [address] [facility] [id number] [address] [place] [id number] 11 Aug, 2018 Type 1 diabetes mellitus wit h other diabetic neurological complication E10.49 [facility] [address] [facility] [id number] [address] [place] [phone] 10 Aug, 2018 Encounter for immunization Z 23 [facility] [address] [facility] [id number] [address] [place] [id number] 05 Aug, 2018 Type 1 diabetes mellitus wit h hyperglycemia E10.65 [facility] [address] [id number] [address] [place] [id number] 21 Jul, 2018 Type 1 diabetes mellitus wit h hyperglycemia E10.65 [facility] [address] [facility] [id number] [address] [place] [id number] 19 Jul, 2018 [facility] [address] [facility] [id number] [address] [place] [phone] 18 Jul, 2018 [facility] [address] [facility] [id number] [address] [place] [id number] 17 Jul, 2018 Type 1 diabetes mellitus wit h other diabetic neurological complication E10.49 [facility] [address] [facility] [id number] [address] [place] [id number] 17 Jul, 2018 Type 1 diabetes mellitus wit h other diabetic neurological complication E10.49 and Mood disorder F39 [facility] [address] [facility] [id number] [address] [place] [phone] Jun, [facility] [address] [facility] [id number] [address] [place] [id number] Jun, Type 1 diabetes mellitus wit h other diabetic neurological complication E10.49 and Chronic fatigue R53.82 [facility] [address] [facility] [id number] [address] [place] [phone] May, Type 1 diabetes mellitus wit h other diabetic neurological complication E10.49 [facility] [address] [facility] [id number] [address] [place] [phone] May, [facility] [address] [id number] [address] [place] [phone] May, [facility] [address] [id number] [address] [place] [phone] Apr, [facility] [address] [id number] [address] [place] [id number] Apr, Type 1 diabetes mellitus wit h other diabetic neurological complication E10.49 [facility] [address] [id number] [address] [place] [id number] March, [facility] [address] [id number] [address] [place] [phone] Feb, [facility] [address] [facility] [id number] [address] [place] [id number] Feb, Type 1 diabetes mellitus wit h other diabetic neurological complication E10.49 ; Tobacco abuse Z72.0 and Tobacco abuse counseling Z71.6 [facility] [address] [facility] [id number] [address] [place] [id number] Jan, Type 1 diabetes mellitus wit h hyperglycemia E10.65 [facility] [address] [facility] [id number] [address] [place] [phone] Jan, [facility] [address] [facility] [id number] [address] [place] [id number] Dec, Tobacco abuse Z72.0 [facility] [address] [facility] [id number] [address] [place] [phone] Dec, Type 1 diabetes mellitus wit h hyperglycemia E10.65 [facility] [address] [id number] [address] [place] [id number] Dec, Type 1 diabetes mellitus wit h hyperglycemia E10.65 ; Tobacco abuse Z72.0 and Tobacco abuse counseling Z71.6 [facility] [address] [facility] [id number] [address] [place] [id number] Nov, Type 1 diabetes mellitus wit h hyperglycemia E10.65 [facility] [address] [id number] [address] [place] [phone] Oct, Type 1 diabetes mellitus wit h hyperglycemia E10.65 [facility] [address] [facility] [id number] [address] [place] [id number] Oct, Type 1 diabetes mellitus wit h hyperglycemia E10.65 [facility] [address] [facility] [id number] [address] [place] [id number] Sep, Type 1 diabetes mellitus wit h hyperglycemia E10.65 [facility] [address] [facility] [id number] [address] [place] [id number] Aug, Type 1 diabetes mellitus wit h hyperglycemia E10.65 [facility] [address] [facility] [id number] [address] [place] [id number] Aug, [facility] [address] [facility] [id number] [address] [place] [id number] Aug, Type 1 diabetes mellitus wit h hyperglycemia E10.65 [facility] [address] [facility] [id number] [address] [place] [phone] Aug, Encounter for immunization Z 23 [facility] [address] [facility] [id number] [address] [place] [id number] Aug, Type 1 diabetes mellitus wit h hyperglycemia E10.65 [facility] [address] [facility] [id number] [address] [place] [id number] Jul, Type 1 diabetes mellitus wit h hyperglycemia E10.65 [facility] [address] [facility] [id number] [address] [place] [id number] Jul, Type 1 diabetes mellitus wit h hyperglycemia E10.65 [facility] [address] [facility] [id number] [address] [place] [phone] May, Type 1 diabetes mellitus wit h hyperglycemia E10.65 [facility] [address] [facility] [id number] [address] [place] [phone] May, [facility] [address] [facility] [id number] [address] [place] [id number] Apr, [facility] [address] [id number] [address] [place] [id number] Apr, Type 1 diabetes mellitus wit h hyperglycemia E10.65 [facility] [address] [id number] [address] [place] [phone] March, [facility] [address] [facility] [id number] [address] [place] [id number] March, [facility] [address] [id number] [address] [place] [id number] Jan, [facility] [address] [id number] [address] [place] [phone] Jan, [facility] [address] [facility] [id number] [address] [place] [id number] Jan, Type 1 diabetes mellitus wit h diabetic polyneuropathy E10.42 [facility] [address] [facility] [id number] [address] [place] [id number] Jan, Type 1 diabetes mellitus wit h hyperglycemia E10.65 ; Excessive cerumen in both ear canals H61.23 and Controlled diabetes mellitus type 1 without complications E10.9 [facility] [address] [id number] [address] [place] [phone] Dec, [facility] [address] [id number] [address] [place] [phone] Dec, [facility] [address] [id number] [address] [place] [id number] Dec, [facility] [address] [id number] [address] [place] [phone] Dec, [facility] [address] [id number] [address] [place] [phone] Nov, [facility] [address] [id number] [address] [place] [phone] Nov, [facility] [address] [facility] [id number] [address] [place] [phone] Oct, Type 1 diabetes mellitus wit h hyperglycemia E10.65 [facility] [address] [id number] [address] [place] [phone] Sep, [facility] [address] [id number] [address] [place] [phone] Sep, [facility] [address] [id number] [address] [place] [id number] Sep, Controlled diabetes mellitus type 1 without complications E10.9 [facility] [address] [id number] [address] [place] [phone] Sep, [facility] [address] [id number] [address] [place] [address] [id number] Aug, Dental caries K02.9 [facility] [address] [id number] [address] [place] [id number] Aug, Type 1 diabetes mellitus wit h diabetic polyneuropathy E10.42 [facility] [address] [id number] [address] [place] [phone] Aug, [facility] [address] [id number] [address] [place] [phone] Aug, [facility] [address] [id number] [address] [place] [phone] Aug, [facility] [address] [id number] [address] [place] [id number] Jul, Type 1 diabetes mellitus wit h hyperglycemia E10.65 [facility] [address] [id number] [address] [place] [id number] Jul, Type 1 diabetes mellitus wit h hyperglycemia E10.65 ; Tooth pain K08.8 and Encounter for immunization Z23 [facility] [address] [id number] [address] [place] [address] [id number] 08 Jul, 2016 Dental examination Z01.20 [facility] [address] [id number] [address] [place] [id number] 08 Jul, 2016 [facility] [address] [id number] [address] [place] [address], [place] [address] Jul, [facility] [address] [id number] [address] [place] [address], [place] [address] Jul, [facility] [address] [id number] [address] [place] [address], [place] [address] Jun, [facility] [address] [id number] [address] [place] [address], [place] [address] May, [facility] [address] [id number] [address] [place] [address], [place] [address] Apr, [facility] [address] [id number] [address] [place] [address], [place] [address] Apr, [facility] [address] [id number] [address] [place] [address], [place] [address] Apr, [facility] [address] [id number] [address] [place] [address], [place] [address] March, [facility] [address] [id number] [address] [place] [address], [place] [address] March, [facility] [address] [id number] [address] [place] [address], [place] [address] Feb, [facility] [address] [id number] [address] [place] [address], [place] [address] Feb, [facility] [address] [id number] [address] [place] [address], [place] [address] Feb, Type 1 diabetes mellitus wit h hyperglycemia E10.65 [facility] [address] [id number] [address] [place] [address], [place] [address] Jan, [facility] [address] [id number] [address] [place] [address], [place] [address] Jan, [facility] [address] [id number] [address] [place] [address], [place] [address] Jan, [facility] [address] [id number] [address] [place] [phone] Jan, [facility] [address] [facility] [id number] [address] [place] [phone] Dec, [facility] [address] [facility] [id number] [address] [place] [phone] Nov, [facility] [address] [place] [id number] [place] [phone] Nov, [facility] [address] [place] [id number] [place] [phone] Oct, [facility] [address] [id number] 04 Oct, 2015 Type 1 diabetes mellitus wit h 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 ; Type 1 diabetes mellitus with hyperglycemia E10.65 ; Gastroparesis K31.84 and Esophageal stricture K22.2 [facility] [address] [id number] Oct, [facility] [address] [place] [id number] [address] [place] [phone] Sep, [facility] [address] [id number] Sep, Type 1 diabetes mellitus wit h other diabetic neurological complication E10.49 [facility] [address] [id number] 22 Aug, 2015 Encounter for immunization Z 23 [facility] [address] [facility] [id number] [address] [place] [id number] 19 Aug, 2015 [facility] [address] [id number] Aug, [facility] [address] [place] [id number] [address] [place] [phone] 21 Jul, 2015 [facility] [address] [place] [id number] [address] [place] [id number] 14 Jul, 2015 [facility] [address] [id number] [address] [place] [phone] Jun, [facility] [address] [id number] [address] [place] [phone] Jun, [facility] [address] [id number] [address] [place] [phone] Jun, [facility] [address] [id number] [address] [place] [phone] May, [facility] [address] [id number] [address] [place] [id number] May, [facility] [address] [id number] [address] [place] [id number] May, Diabetes type 1, controlled 250.01 [facility] [address] [id number] [address] [place] [phone] May, [facility] [address] [id number] [address] [place] [id number] May, [facility] [address] [id number] [address] [place] [address] [id number] Apr, Dental examination V72.2 [facility] [address] [id number] [address] [place] [id number] Apr, [facility] [address] [id number] [address] [place] [id number] Apr, [facility] [address] [id number] [address] [place] [phone] Apr, [facility] [address] [id number] [address] [place] [id number] Apr, [facility] [address] [id number] [address] [place] [phone] Apr, [facility] [address] [id number] [address] [place] [address] [id number] Apr, Dental examination V72.2 [facility] [address] [id number] [address] [place] [address], [place] [address] Apr, [facility] [address] [id number] [address] [place] [phone] Apr, [facility] [address] [id number] [address] [place] [phone] March, Diabetes mellitus type 1 250 .01 [facility] [address] [id number] [address] [place] [address], [place] [address] March, [facility] [address] [id number] [address] [place] [address], [place] [phone] Feb, [facility] [address] [id number] [address] [place] [address], [place] [address] Feb, [facility] [address] [id number] [address] [place] [phone] Jan, [facility] [address] [id number] [address] [place] [phone] Jan, [facility] [address] [id number] [address] [place] [address], [place] [id number] Jan, [facility] [address] [id number] [address] [place] [phone] Jan, [facility] [address] [id number] [address] [place] [phone] Dec, [facility] [address] [id number] [address] [place] [phone] Dec, [facility] [address] [id number] [address] [place] [address], [place] [id number] Nov, [facility] [address] [id number] [address] [place] [id number] Nov, [facility] [address] [id number] [address] [place] [phone] Nov, [facility] [address] [id number] [address] [place] [id number] Nov, [facility] [address] [id number] [address] [place] [address], [place] [id number] Nov, [facility] [address] [id number] [address] [place] [phone] Nov, [facility] [address] [id number] [address] [place] [address], [place] [id number] Nov, [facility] [address] [id number] [address] [place] [id number] Oct, [facility] [address] [id number] [address] [place] [address], [place] [id number] Oct, [facility] [address] [id number] [address] [place] [address], [place] [phone] Sep, [facility] [address] [id number] [address] [place] [address], [place] [id number] Aug, [facility] [address] [id number] [address] [place] [address], [place] [address] 29 Aug, 2014 [facility] [address] [id number] [address] [place] [address], [place] [address] Aug, [facility] [address] [id number] [address] [place] [address], [place] [address] Aug, [facility] [address] [id number] [address] [place] [address], [place] [address] Aug, [facility] [address] [id number] [address] [place] [address] 28 Aug, 2014 [facility] [address] [id number] [address] [place] [address], [place] [address] Aug, [facility] [address] [id number] [address] [place] [address], [place] [address] Aug, [facility] [address] [id number] [address] [place] [address], [place] [address] Aug, [facility] [address] [id number] [address] [place] [address], [place] [address] Aug, [facility] [address] [id number] [address] [place] [address], [place] [address] Aug, [facility] [address] [id number] [address] [place] [address], [place] [address] Aug, [facility] [address] [id number] [address] [place] [address], [place] [address] Aug, [facility] [address] [id number] [address] [place] [address], [place] [address] Aug, [facility] [address] [id number] [address] [place] [address], [place] [address] Jul, [facility] [address] [id number] [address] [place] [address], [place] [address] Jul, [facility] [address] [id number] [address] [place] [address], [place] [address] Jul, [facility] [address] [id number] [address] [place] [address], [place] [address] Jul, [facility] [address] [id number] [address] [place] [address], [place] [address] Jun, [facility] [address] [id number] [address] [place] [address], [place] [address] Jun, [facility] [address] [id number] [address] [place] [address], [place] [address] Jun, [facility] [address] [id number] [address] [place] [address], [place] [address] Jun, [facility] [address] [id number] [address] [place] [address], [place] [address] May, [facility] [address] [id number] [address] [place] [address], [place] [address] May, [facility] [address] [id number] [address] [place] [address], [place] [address] May, [facility] [address] [id number] [facility] [place] [address] May, 2013 [facility] [address] [id number] [facility] [place] [address] May, [facility] [address] [id number] [facility] [place] [address] May, 2013 [facility] [address] [id number] [address] [place] [address], [place] [address] May, 2013 [facility] [address] [id number] [address] [place] [address], [place] [address] May, [facility] [address] [id number] [address] [place] [address], [place] [address] May, [facility] [address] [id number] [address] [place] [address], [place] [address] May, [facility] [address] [id number] [address] [place] [address], [place] [address] May, [facility] [address] [id number] [address] [place] [address], [place] [address] May, [facility] [address] [id number] [address] [place] [address], [place] [address] May, [facility] [address] [id number] [address] [place] [address], [place] [address] Apr, [facility] [address] [id number] [address] [place] [address], [place] [address] Apr, [facility] [address] [id number] [address] [place] [address], [place] [address] Apr, [facility] [address] [id number] [address] [place] [address], [place] [address] Apr, [facility] [address] [id number] [address] [place] [address], [place] [address] Apr, [facility] [address] [id number] [address] [place] [address], [place] [address] Apr, [facility] [address] [id number] [facility] [place] [address] Apr, [facility] [address] [id number] [address] [place] [address], [place] [address] Apr, [facility] [address] [id number] [address] [place] [address], [place] [address] Apr, [facility] [address] [id number] [address] [place] [address], [place] [address] Apr, [facility] [address] [id number] [address] [place] [address], [place] [address] Apr, [facility] [address] [id number] [address] [place] [address], [place] [address] Apr, [facility] [address] [id number] [address] [place] [address], [place] [address] Apr, [facility] [address] [id number] [address] [place] [address], [place] [address] Apr, [facility] [address] [id number] [address] [place] [address], [place] [address] March, [facility] [address] [id number] [address] [place] [address], [place] [address] March, [facility] [address] [id number] [address] [place] [address], [place] [address] March, [facility] [address] [id number] [address] [place] [address], [place] [address] March, [facility] [address] [id number] [address] [place] [address], [place] [address] March, [facility] [address] [id number] [address] [place] [address], [place] [address] March, [facility] [address] [id number] [address] [place] [address], [place] [address] March, [facility] [address] [id number] [facility] [place] [address] March, [facility] [address] [id number] [address] [place] [address], [place] [address] March, [facility] [address] [id number] [address] [place] [address], [place] [address] March, [facility] [address] [id number] [address] [place] [address], [place] [address] Feb, [facility] [address] [id number] [address] [place] [address], [place] [address] Feb, [facility] [address] [id number] [address] [place] [address], [place] [address] Feb, [facility] [address] [id number] [address] [place] [address], [place] [address] Feb, [facility] [address] [id number] [address] [place] [address], [place] [address] Feb, [facility] [address] [id number] [address] [place] [address], [place] [address] Feb, [facility] [address] [id number] [address] [place] [address], [place] [address] Feb, [facility] [address] [id number] [address] [place] [address], [place] [address] Feb, [facility] [address] [id number] [address] [place] [address], [place] [address] Jan, [facility] [address] [id number] [address] [place] [address], [place] [address] Jan, [facility] [address] [id number] [address] [place] [address], [place] [address] Jan, [facility] [address] [id number] [address] [place] [address], [place] [address] Jan, [facility] [address] [id number] [address] [place] [address], [place] [address] Jan, [facility] [address] [id number] [facility] [place] [address] Jan, [facility] [address] [id number] [address] [place] [address], [place] [address] Jan, [facility] [address] [id number] [address] [place] [address], [place] [address] Jan, [facility] [address] [id number] [address] [place] [address], [place] [address] Jan, [facility] [address] [id number] [address] [place] [address], [place] [address] Jan, [facility] [address] [id number] [address] [place] [address], [place] [address] Dec, [facility] [address] [id number] [address] [place] [address], [place] [address] Dec, [facility] [address] [id number] [address] [place] [address], [place] [address] Nov, [facility] [address] [id number] [address] [place] [address], [place] [address] Nov, [facility] [address] [id number] [address] [place] [address], [place] [address] Nov, [facility] [address] [id number] [address] [place] [address], [place] [address] Nov, [facility] [address] [id number] [address] [place] [address], [place] [address] Nov, [facility] [address] [id number] [address] [place] [address], [place] [address] Nov, [facility] [address] [id number] [address] [place] [address], [place] [address] Nov, [facility] [address] [id number] [address] [place] [address], [place] [address] Nov, [facility] [address] [id number] [address] [place] [address], [place] [address] Oct, [facility] [address] [id number] [address] [place] [address], [place] [address] Oct, [facility] [address] [id number] [address] [place] [address], [place] [address] Oct, [facility] [address] [id number] [address] [place] [address], [place] [address] Oct, [facility] [address] [id number] [address] [place] [address], [place] [address] Oct, [facility] [address] [id number] [address] [place] [address], [place] [address] Oct, [facility] [address] [id number] [address] [place] [address], [place] [address] Sep, [facility] [address] [id number] [address] [place] [address], [place] [address] Sep, [facility] [address] [id number] [address] [place] [address], [place] [address] Sep, [facility] [address] [id number] [address] [place] [address], [place] [address] Sep, [facility] [address] [id number] [address] [place] [address], [place] [address] Sep, [facility] [address] [id number] [address] [place] [address], [place] [address] Aug, [facility] [address] [id number] [address] [place] [address], [place] [address] Aug, [facility] [address] [id number] [address] [place] [address], [place] [address] Aug, [facility] [address] [id number] [address] [place] [address], [place] [address] Aug, [facility] [address] [id number] [address] [place] [address], [place] [address] Aug, [facility] [address] [id number] [address] [place] [address], [place] [address] Aug, [facility] [address] [id number] [address] [place] [address], [place] [address] Jul, [facility] [address] [id number] [address] [place] [address], [place] [address] Jul, [facility] [address] [id number] [address] [place] [address], [place] [address] Jul, [facility] [address] [id number] [address] [place] [address], [place] [address] Jun, [facility] [address] [id number] [address] [place] [address], [place] [address] Jun, [facility] [address] [id number] [address] [place] [address], [place] [address] May, [facility] [address] [id number] [address] [place] [address], [place] [address] May, [facility] [address] [id number] [address] [place] [address], [place] [address] Apr, [facility] [address] [id number] [address] [place] [address], [place] [address] Apr, [facility] [address] [id number] [address] [place] [address], [place] [address] Apr, [facility] [address] [id number] [address] [place] [address], [place] [address] March, [facility] [address] [id number] [address] [place] [address], [place] [address] Feb, [facility] [address] [id number] [address] [place] [address], [place] [address] Feb, [facility] [address] [id number] [address] [place] [address], [place] [address] Jan, [facility] [address] [id number] [address] [place] [address] Jan, [facility] [address] [id number] [address] [place] [address], [place] [address] Jan, [facility] [address] [id number] [address] [place] [address], [place] [address] Jan, [facility] [address] [id number] [address] [place] [address], [place] [address] Jan, [facility] [address] [id number] [address] [place] [address], [place] [address] Dec, [facility] [address] [id number] [address] [place] [address], [place] [address] Dec, [facility] [address] [id number] [address] [place] [address], [place] [address] Dec, [facility] [address] [id number] [address] [place] [address], [place] [address] Dec, [facility] [address] [id number] [address] [place] [address], [place] [address] Dec, [facility] [address] [id number] [address] [place] [address], [place] [address] 05 Dec, 2012 [facility] [address] [place] [id number] Nov, [facility] [address] [id number] [address] [place] [address], [place] [address] Nov, [facility] [address] [id number] [address] [place] [address], [place] [address] Nov, [facility] [address] [id number] [address] [place] [address], [place] [address] Nov, [facility] [address] [id number] [address] [place] [address], [place] [address] Nov, [facility] [address] [id number] [address] [place] [address], [place] [address] Oct, [facility] [address] [id number] [address] [place] [address], [place] [address] Oct, [facility] [address] [id number] [address] [place] [address], [place] [address] Oct, [facility] [address] [id number] [address] [place] [address], [place] [address] Oct, [facility] [address] [id number] [address] [place] [address], [place] [address] Oct, [facility] [address] [id number] [address] [place] [address], [place] [address] Oct, [facility] [address] [id number] [address] [place] [address], [place] [address] Oct, [facility] [address] [id number] [address] [place] [address], [place] [address] Oct, [facility] [address] [id number] [address] [place] [address], [place] [address] Sep, [facility] [address] [id number] [address] [place] [address], [place] [address] Sep, [facility] [address] [id number] [address] [place] [address], [place] [address] Sep, [facility] [address] [id number] [address] [place] [address], [place] [address] Sep, [facility] [address] [id number] [address] [place] [address], [place] [address] 14 Sep, 2012 [facility] [address] [id number] [address] [place] [address], [place] [address] 14 Sep, 2012 [facility] [address] [id number] [address] [place] [address], [place] [address] Sep, [facility] [address] [id number] [address] [place] [address], [place] [address] 12 Sep, 2012 [facility] [address] [id number] [address] [place] [address], [place] [address] Sep, [facility] [address] [facility] [id number] [address] [place] [address] Sep, [facility] [address] [facility] [id number] [address] [place] [address] Sep, [facility] [address] [facility] [id number] [address] [place] [address] Sep, [facility] [address] [facility] [id number] [address] [place] [address] Sep, [facility] [address] [facility] [id number] [address] [place] [address] Sep, [facility] [address] [facility] [id number] [address] [place] [address] Sep, [facility] [address] [facility] [id number] [address] [place] [address] Sep, IMMUNIZATIONS No Known Immunizations SOCIAL HISTORY [...]
--- OUTSIDE RECORDS SUMMARY | 2020-04-17 21:33 | XMS REPORT ---
Author Author Curt PATIÑO Organization [facility] Address [address] [place] [address] Care Team Providers Care Jig Box Operator Name Role Phone BISMARK PATIÑO Unavailable PROBLEMS Type Condition ICD9-CM Code [id number] Code Onset Dates Condition S tatus SNOMED Code Problem Hypertension, essential I10 Active 70323642 Problem Gastroparesis K31.84 Active 858029 006 Problem Type 1 diabetes mellitus with other diab etic neurological complication E10.49 Active 56487110 Problem Controlled diabetes mellitus type 1 without complications E10.9 Active 60412020 Problem Mood disorder F39 Active 667646 05 Problem Other chronic pain G89.29 Active 8 1348912 Problem 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 Active 47687049 Problem Type 1 diabetes mellitus with hyperglycemia E10.65 Active [id number] Problem Type 1 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 Active 19666142 Problem Chronic fatigue R53.82 Active 8422 9001 ALLERGIES No Information ENCOUNTERS Encounter Location Date Diagnosis [facility] [address] [facility] [id number] [address] [place] [phone] May, [facility] [address] [facility] [id number] [address] [place] [phone] Apr, [facility] [address] [facility] [id number] [address] [place] [phone] Apr, Type 1 diabetes mellitus wit h other diabetic neurological complication E10.49 [facility] [address] [facility] [id number] [address] [place] [phone] Apr, Encounter for Medicare annua l wellness exam Z00.00 [facility] [address] [facility] [id number] [address] [place] [phone] March, Encounter for Medicare annua l wellness exam Z00.00 and Type 1 diabetes mellitus with other diabetic neurological complication E10.49 [facility] [address] [facility] [id number] [address] [place] [phone] 10 Feb, 2019 Type 1 diabetes mellitus wit h other diabetic neurological complication E10.49 [facility] [address] [facility] [id number] [address] [place] [phone] 04 Feb, 2019 Encounter for Medicare jyothi brewer wellness exam Z00.00 ; Mood disorder F39 ; Type 1 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 ; Hypertension, essential I10 and Chronic fatigue R53.82 [facility] [address] [facility] [id number] [address] [place] [id number] 13 Jan, 2019 Type 1 diabetes mellitus wit h other diabetic neurological complication E10.49 [facility] [address] [facility] [id number] [address] [place] [id number] 11 Jan, 2019 [facility] [address] [facility] [id number] [address] [place] [id number] 07 Jan, 2019 Other chronic pain G89.29 [facility] [address] [facility] [id number] [address] [place] [phone] 11 Dec, 2018 [facility] [address] [facility] [id number] [address] [place] [phone] 08 Dec, 2018 Type 1 diabetes mellitus wit h other diabetic neurological complication E10.49 [facility] [address] [facility] [id number] [address] [place] [id number] 05 Dec, 2018 Other chronic pain G89.29 [facility] [address] [facility] [id number] [address] [place] [phone] Nov, [facility] [address] [id number] [address] [place] [id number] Nov, Caries K02.9 [facility] [address] [facility] [id number] [address] [place] [id number] 15 Nov, 2018 Type 1 diabetes mellitus wit h other diabetic neurological complication E10.49 [facility] [address] [facility] [id number] [address] [place] [id number] Nov, Controlled diabetes mellitus type 1 without complications E10.9 ; Other chronic pain G89.29 and Pain in left knee M25.562 [facility] [address] [id number] [address] [place] [address] [id number] 18 Oct, 2018 Dental examination Z01.20 [facility] [address] [id number] [address] [place] [id number] 14 Oct, 2018 Cutaneous abscess of unspeci fied foot L02.619 and Cellulitis of unspecified part of limb L03.119 [facility] [address] [id number] [address] [place] [id number] 11 Oct, 2018 [facility] [address] [id number] [address] [place] [phone] 10 Oct, 2018 Type 1 diabetes mellitus wit h other diabetic neurological complication E10.49 [facility] [address] [id number] [address] [place] [id number] 06 Oct, 2018 Dental examination Z01.20 an d Caries K02.9 [facility] [address] [id number] [address] [place] [id number] 04 Oct, 2018 Cutaneous abscess of left fo ot L02.612 and Cellulitis of left lower limb L03.116 [facility] [address] [facility] [id number] [address] [place] [id number] 04 Oct, 2018 Dental examination Z01.20 an d Pain, dental K08.89 [facility] [address] [id number] [address] [place] [phone] Sep, Left foot pain M79.672 and L eft anterior knee pain M25.562 [facility] [address] [id number] [address] [place] [id number] Sep, Type 1 diabetes mellitus wit h other diabetic neurological complication E10.49 [facility] [address] [id number] [address] [place] [id number] Sep, [facility] [address] [facility] [id number] [address] [place] [id number] 11 Aug, 2018 Type 1 diabetes mellitus wit h other diabetic neurological complication E10.49 [facility] [address] [id number] [address] [place] [id number] 10 Aug, 2018 Encounter for immunization Z 23 [facility] [address] [id number] [address] [place] [id number] 05 Aug, 2018 Type 1 diabetes mellitus wit h hyperglycemia E10.65 [facility] [address] [id number] [address] [place] [id number] 21 Jul, 2018 Type 1 diabetes mellitus wit h hyperglycemia E10.65 [facility] [address] [id number] [address] [place] [id number] 19 Jul, 2018 [facility] [address] [id number] [address] [place] [id number] 18 Jul, 2018 [facility] [address] [facility] [id number] [address] [place] [id number] 17 Jul, 2018 Type 1 diabetes mellitus wit h other diabetic neurological complication E10.49 [facility] [address] [id number] [address] [place] [id number] Jul, Type 1 diabetes mellitus wit h other diabetic neurological complication E10.49 and Mood disorder F39 [facility] [address] [id number] [address] [place] [id number] Jun, [facility] [address] [facility] [id number] [address] [place] [id number] Jun, Type 1 diabetes mellitus wit h other diabetic neurological complication E10.49 and Chronic fatigue R53.82 [facility] [address] [id number] [address] [place] [phone] May, Type 1 diabetes mellitus wit h other diabetic neurological complication E10.49 [facility] [address] [id number] [address] [place] [id number] May, [facility] [address] [facility] [id number] [address] [place] [phone] May, [facility] [address] [facility] [id number] [address] [place] [id number] Apr, [facility] [address] [facility] [id number] [address] [place] [id number] Apr, Type 1 diabetes mellitus wit h other diabetic neurological complication E10.49 [facility] [address] [facility] [id number] [address] [place] [phone] March, [facility] [address] [facility] [id number] [address] [place] [id number] Feb, [facility] [address] [facility] [id number] [address] [place] [id number] Feb, Type 1 diabetes mellitus wit h other diabetic neurological complication E10.49 ; Tobacco abuse Z72.0 and Tobacco abuse counseling Z71.6 [facility] [address] [facility] [id number] [address] [place] [id number] Jan, Type 1 diabetes mellitus wit h hyperglycemia E10.65 [facility] [address] [facility] [id number] [address] [place] [phone] Jan, [facility] [address] [facility] [id number] [address] [place] [phone] Dec, Tobacco abuse Z72.0 [facility] [address] [facility] [id number] [address] [place] [id number] Dec, Type 1 diabetes mellitus wit h hyperglycemia E10.65 [facility] [address] [facility] [id number] [address] [place] [id number] Dec, Type 1 diabetes mellitus wit h hyperglycemia E10.65 ; Tobacco abuse Z72.0 and Tobacco abuse counseling Z71.6 [facility] [address] [facility] [id number] [address] [place] [phone] Nov, Type 1 diabetes mellitus wit h hyperglycemia E10.65 [facility] [address] [facility] [id number] [address] [place] [id number] Oct, Type 1 diabetes mellitus wit h hyperglycemia E10.65 [facility] [address] [facility] [id number] [address] [place] [id number] Oct, Type 1 diabetes mellitus wit h hyperglycemia E10.65 [facility] [address] [facility] [id number] [address] [place] [id number] Sep, Type 1 diabetes mellitus wit h hyperglycemia E10.65 [facility] [address] [facility] [id number] [address] [place] [id number] Aug, Type 1 diabetes mellitus wit h hyperglycemia E10.65 [facility] [address] [facility] [id number] [address] [place] [id number] Aug, [facility] [address] [facility] [id number] [address] [place] [id number] Aug, Type 1 diabetes mellitus wit h hyperglycemia E10.65 [facility] [address] [facility] [id number] [address] [place] [id number] Aug, Encounter for immunization Z 23 [facility] [address] [facility] [id number] [address] [place] [phone] Aug, Type 1 diabetes mellitus wit h hyperglycemia E10.65 [facility] [address] [facility] [id number] [address] [place] [id number] Jul, Type 1 diabetes mellitus wit h hyperglycemia E10.65 [facility] [address] [facility] [id number] [address] [place] [id number] Jul, Type 1 diabetes mellitus wit h hyperglycemia E10.65 [facility] [address] [facility] [id number] [address] [place] [id number] May, Type 1 diabetes mellitus wit h hyperglycemia E10.65 [facility] [address] [facility] [id number] [address] [place] [phone] May, [facility] [address] [facility] [id number] [address] [place] [id number] Apr, [facility] [address] [facility] [id number] [address] [place] [id number] Apr, Type 1 diabetes mellitus wit h hyperglycemia E10.65 [facility] [address] [id number] [address] [place] [phone] March, [facility] [address] [id number] [address] [place] [phone] March, [facility] [address] [facility] [id number] [address] [place] [id number] Jan, [facility] [address] [id number] [address] [place] [id number] Jan, [facility] [address] [facility] [id number] [address] [place] [id number] Jan, Type 1 diabetes mellitus wit h diabetic polyneuropathy E10.42 [facility] [address] [id number] [address] [place] [id number] Jan, Type 1 diabetes mellitus wit h hyperglycemia E10.65 ; Excessive cerumen in both ear canals H61.23 and Controlled diabetes mellitus type 1 without complications E10.9 [facility] [address] [id number] [address] [place] [id number] Dec, [facility] [address] [id number] [address] [place] [id number] Dec, [facility] [address] [facility] [id number] [address] [place] [phone] Dec, [facility] [address] [id number] [address] [place] [id number] Dec, [facility] [address] [id number] [address] [place] [phone] Nov, [facility] [address] [id number] [address] [place] [phone] Nov, [facility] [address] [facility] [id number] [address] [place] [phone] Oct, Type 1 diabetes mellitus wit h hyperglycemia E10.65 [facility] [address] [id number] [address] [place] [id number] Sep, [facility] [address] [id number] [address] [place] [id number] Sep, [facility] [address] [id number] [address] [place] [id number] Sep, Controlled diabetes mellitus type 1 without complications E10.9 [facility] [address] [id number] [address] [place] [id number] Sep, [facility] [address] [id number] [address] [place] [id number] Aug, Dental caries K02.9 [facility] [address] [id number] [address] [place] [id number] Aug, Type 1 diabetes mellitus wit h diabetic polyneuropathy E10.42 [facility] [address] [facility] [id number] [address] [place] [phone] Aug, [facility] [address] [id number] [address] [place] [phone] Aug, [facility] [address] [id number] [address] [place] [phone] Aug, [facility] [address] [id number] [address] [place] [id number] Jul, Type 1 diabetes mellitus wit h hyperglycemia E10.65 [facility] [address] [id number] [address] [place] [id number] Jul, Type 1 diabetes mellitus wit h hyperglycemia E10.65 ; Tooth pain K08.8 and Encounter for immunization Z23 [facility] [address] [id number] [address] [place] [id number] 08 Jul, 2016 Dental examination Z01.20 [facility] [address] [id number] [address] [place] [id number] 08 Jul, 2016 [facility] [address] [facility] [id number] [address] [place] [id number] 07 Jul, 2016 [facility] [address] [id number] [address] [place] [address], [place] [phone] Jul, [facility] [address] [id number] [address] [place] [address], [place] [phone] Jun, [facility] [address] [id number] [address] [place] [address], [place] [phone] May, [facility] [address] [id number] [address] [place] [address], [place] [phone] Apr, [facility] [address] [id number] [address] [place] [address], [place] [id number] Apr, [facility] [address] [id number] [address] [place] [address], [place] [id number] Apr, [facility] [address] [id number] [address] [place] [address], [place] [phone] March, [facility] [address] [id number] [address] [place] [address], [place] [phone] March, [facility] [address] [id number] [address] [place] [address], [place] [phone] Feb, [facility] [address] [id number] [address] [place] [address], [place] [phone] Feb, [facility] [address] [id number] [address] [place] [address], [place] [id number] Feb, Type 1 diabetes mellitus wit h hyperglycemia E10.65 [facility] [address] [id number] [address] [place] [address], [place] [address] Jan, [facility] [address] [id number] [address] [place] [address], [place] [phone] Jan, [facility] [address] [id number] [address] [place] [address], [place] [id number] Jan, [facility] [address] [id number] [address] [place] [address], [place] [id number] Jan, [facility] [address] [id number] [address] [place] [id number] 18 Dec, 2015 [facility] [address] [facility] [id number] [address] [place] [id number] Nov, [facility] [address] [facility] [id number] [address] [place] [id number] Nov, [facility] [address] [facility] [id number] [address] [place] [id number] Oct, [facility] [address] [place] [id number] [place] [phone] Oct, Type 1 diabetes mellitus wit h 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 ; Type 1 diabetes mellitus with hyperglycemia E10.65 ; Gastroparesis K31.84 and Esophageal stricture K22.2 [facility] [address] [place] [id number] [place] [phone] Oct, [facility] [address] [id number] Sep, [facility] [address] [phone] Sep, Type 1 diabetes mellitus wit h other diabetic neurological complication E10.49 [facility] [address] [place] [id number] [address] [place] [id number] 22 Aug, 2015 Encounter for immunization Z 23 [facility] [address] [facility] [id number] [address] [place] [id number] 19 Aug, 2015 [facility] [address] [place] [id number] [address] [place] [phone] Aug, [facility] [address] [facility] [id number] [address] [place] [id number] Jul, [facility] [address] [place] [id number] [address] [place] [phone] 14 Jul, 2015 [facility] [address] [place] [id number] [address] [place] [phone] Jun, [facility] [address] [id number] [address] [place] [phone] Jun, [facility] [address] [id number] [address] [place] [id number] Jun, [facility] [address] [id number] [address] [place] [id number] May, [facility] [address] [id number] [address] [place] [phone] May, [facility] [address] [id number] [address] [place] [id number] May, Diabetes type 1, controlled 250.01 [facility] [address] [id number] [address] [place] [phone] May, [facility] [address] [id number] [address] [place] [id number] May, [facility] [address] [id number] [address] [place] [address] [id number] Apr, Dental examination V72.2 [facility] [address] [id number] [address] [place] [id number] Apr, [facility] [address] [id number] [address] [place] [phone] Apr, [facility] [address] [id number] [address] [place] [phone] Apr, [facility] [address] [id number] [address] [place] [phone] Apr, [facility] [address] [id number] [address] [place] [id number] Apr, [facility] [address] [id number] [address] [place] [id number] Apr, Dental examination V72.2 [facility] [address] [id number] [address] [place] [phone] Apr, [facility] [address] [id number] [address] [place] [address], [place] [phone] Apr, [facility] [address] [id number] [address] [place] [id number] March, Diabetes mellitus type 1 250 .01 [facility] [address] [id number] [address] [place] [address], [place] [id number] March, [facility] [address] [id number] [address] [place] [phone] Feb, [facility] [address] [id number] [address] [place] [address], [place] [phone] Feb, [facility] [address] [id number] [address] [place] [address], [place] [id number] Jan, [facility] [address] [id number] [address] [place] [phone] Jan, [facility] [address] [id number] [address] [place] [phone] Jan, [facility] [address] [id number] [address] [place] [address], [place] [id number] Jan, [facility] [address] [id number] [address] [place] [phone] Dec, [facility] [address] [id number] [address] [place] [phone] Dec, [facility] [address] [id number] [address] [place] [phone] Nov, [facility] [address] [id number] [address] [place] [address], [place] [id number] Nov, [facility] [address] [id number] [address] [place] [phone] Nov, [facility] [address] [id number] [address] [place] [id number] Nov, [facility] [address] [id number] [address] [place] [address] Nov, [facility] [address] [id number] [address] [place] [address], [place] [address] Nov, [facility] [address] [id number] [address] [place] [address] Nov, [facility] [address] [id number] [address] [place] [address], [place] [address] Oct, [facility] [address] [id number] [address] [place] [address] Oct, [facility] [address] [id number] [address] [place] [address], [place] [address] Sep, [facility] [address] [id number] [address] [place] [address], [place] [address] Aug, [facility] [address] [id number] [address] [place] [address], [place] [address] Aug, [facility] [address] [id number] [address] [place] [address], [place] [address] Aug, [facility] [address] [id number] [address] [place] [address], [place] [address] Aug, [facility] [address] [id number] [address] [place] [address], [place] [address] Aug, [facility] [address] [id number] [address] [place] [address], [place] [address] Aug, [facility] [address] [id number] [address] [place] [address] Aug, [facility] [address] [id number] [address] [place] [address], [place] [address] Aug, [facility] [address] [id number] [address] [place] [id number] Aug, [facility] [address] [id number] [address] [place] [address], [place] [address] Aug, [facility] [address] [id number] [facility] [place] [address] Aug, [facility] [address] [id number] [address] [place] [address], [place] [address] Aug, [facility] [address] [id number] [address] [place] [address], [place] [address] Aug, [facility] [address] [id number] [address] [place] [address], [place] [address] Aug, [facility] [address] [id number] [address] [place] [address], [place] [address] Jul, [facility] [address] [id number] [address] [place] [address], [place] [address] Jul, [facility] [address] [id number] [address] [place] [address], [place] [address] Jul, [facility] [address] [id number] [address] [place] [address], [place] [address] Jul, [facility] [address] [id number] [address] [place] [address], [place] [address] Jun, [facility] [address] [id number] [address] [place] [address], [place] [address] Jun, [facility] [address] [id number] [address] [place] [address], [place] [address] Jun, [facility] [address] [id number] [address] [place] [address], [place] [address] Jun, [facility] [address] [id number] [address] [place] [address], [place] [address] May, [facility] [address] [id number] [address] [place] [address], [place] [address] May, [facility] [address] [id number] [address] [place] [address], [place] [address] May, [facility] [address] [id number] [address] [place] [address], [place] [address] May, [facility] [address] [id number] [facility] [place] [address] May, 2013 [facility] [address] [id number] [facility] [place] [address] May, [facility] [address] [id number] [facility] [place] [address] May, 2013 [facility] [address] [id number] [address] [place] [address], [place] [address] May, [facility] [address] [id number] [address] [place] [address], [place] [address] May, [facility] [address] [id number] [address] [place] [address], [place] [address] May, [facility] [address] [id number] [address] [place] [address], [place] [address] May, [facility] [address] [id number] [address] [place] [address], [place] [address] May, [facility] [address] [id number] [address] [place] [address], [place] [address] May, [facility] [address] [id number] [address] [place] [address], [place] [address] Apr, [facility] [address] [id number] [address] [place] [address], [place] [address] Apr, [facility] [address] [id number] [address] [place] [address], [place] [address] Apr, [facility] [address] [id number] [address] [place] [address], [place] [address] Apr, [facility] [address] [id number] [address] [place] [address], [place] [address] Apr, [facility] [address] [id number] [address] [place] [address], [place] [address] Apr, [facility] [address] [id number] [address] [place] [address], [place] [address] 04 Apr, 2014 [facility] [address] [id number] [address] [place] [address], [place] [address] Apr, [facility] [address] [id number] [address] [place] [address], [place] [address] Apr, [facility] [address] [id number] [address] [place] [address], [place] [address] Apr, [facility] [address] [id number] [address] [place] [address], [place] [address] Apr, [facility] [address] [id number] [address] [place] [address], [place] [address] Apr, [facility] [address] [id number] [address] [place] [address], [place] [address] Apr, [facility] [address] [id number] [address] [place] [address], [place] [address] Apr, [facility] [address] [id number] [address] [place] [address], [place] [address] March, [facility] [address] [id number] [address] [place] [address], [place] [address] March, [facility] [address] [id number] [address] [place] [address], [place] [address] March, [facility] [address] [id number] [address] [place] [address], [place] [address] March, [facility] [address] [id number] [address] [place] [address], [place] [address] March, [facility] [address] [id number] [address] [place] [address], [place] [address] March, [facility] [address] [id number] [address] [place] [address], [place] [address] March, [facility] [address] [id number] [address] [place] [address], [place] [address] March, [facility] [address] [id number] [facility] [place] [address] March, [facility] [address] [id number] [facility] [place] [address] March, [facility] [address] [id number] [facility] [place] [address] Feb, [facility] [address] [id number] [address] [place] [address], [place] [address] Feb, [facility] [address] [id number] [address] [place] [address], [place] [address] Feb, [facility] [address] [id number] [address] [place] [address], [place] [address] Feb, [facility] [address] [id number] [address] [place] [address], [place] [address] Feb, [facility] [address] [id number] [address] [place] [address], [place] [address] Feb, [facility] [address] [id number] [address] [place] [address], [place] [address] Feb, [facility] [address] [id number] [address] [place] [address], [place] [address] Feb, [facility] [address] [id number] [address] [place] [address], [place] [address] Jan, [facility] [address] [id number] [address] [place] [address], [place] [address] Jan, [facility] [address] [id number] [address] [place] [address], [place] [address] Jan, [facility] [address] [id number] [address] [place] [address], [place] [address] Jan, [facility] [address] [id number] [address] [place] [address], [place] [address] Jan, [facility] [address] [id number] [address] [place] [address], [place] [address] Jan, [facility] [address] [id number] [facility] [place] [address] Jan, [facility] [address] [id number] [address] [place] [address], [place] [address] Jan, [facility] [address] [id number] [address] [place] [address], [place] [address] Jan, [facility] [address] [id number] [address] [place] [address], [place] [address] Jan, [facility] [address] [id number] [address] [place] [address], [place] [address] Dec, [facility] [address] [id number] [address] [place] [address], [place] [address] Dec, [facility] [address] [id number] [address] [place] [address], [place] [address] Nov, [facility] [address] [id number] [address] [place] [address], [place] [address] Nov, [facility] [address] [id number] [address] [place] [address], [place] [address] Nov, [facility] [address] [id number] [address] [place] [address], [place] [address] Nov, [facility] [address] [id number] [address] [place] [address], [place] [address] Nov, [facility] [address] [id number] [address] [place] [address], [place] [address] Nov, [facility] [address] [id number] [address] [place] [address], [place] [address] Nov, [facility] [address] [id number] [address] [place] [address], [place] [address] Nov, [facility] [address] [id number] [address] [place] [address], [place] [address] Oct, [facility] [address] [id number] [address] [place] [address], [place] [address] Oct, [facility] [address] [id number] [address] [place] [address], [place] [address] Oct, [facility] [address] [id number] [address] [place] [address], [place] [address] Oct, [facility] [address] [id number] [address] [place] [address], [place] [address] Oct, [facility] [address] [id number] [address] [place] [address], [place] [address] Oct, [facility] [address] [id number] [address] [place] [address], [place] [address] Sep, [facility] [address] [id number] [address] [place] [address], [place] [address] Sep, [facility] [address] [id number] [address] [place] [address], [place] [address] Sep, [facility] [address] [id number] [address] [place] [address], [place] [address] Sep, [facility] [address] [id number] [address] [place] [address], [place] [address] Sep, [facility] [address] [id number] [address] [place] [address], [place] [address] Aug, [facility] [address] [id number] [address] [place] [address], [place] [address] Aug, [facility] [address] [id number] [address] [place] [address], [place] [address] Aug, [facility] [address] [id number] [address] [place] [address], [place] [address] Aug, [facility] [address] [id number] [address] [place] [address], [place] [address] Aug, [facility] [address] [id number] [address] [place] [address], [place] [address] Aug, [facility] [address] [id number] [address] [place] [address], [place] [address] Jul, [facility] [address] [id number] [address] [place] [address], [place] [address] Jul, [facility] [address] [id number] [address] [place] [address], [place] [address] Jul, [facility] [address] [id number] [address] [place] [address], [place] [address] Jun, [facility] [address] [id number] [address] [place] [address], [place] [address] Jun, [facility] [address] [id number] [address] [place] [address], [place] [address] May, [facility] [address] [id number] [address] [place] [address], [place] [address] May, [facility] [address] [id number] [address] [place] [address], [place] [address] Apr, [facility] [address] [id number] [address] [place] [address], [place] [address] Apr, [facility] [address] [id number] [address] [place] [address], [place] [address] Apr, [facility] [address] [id number] [address] [place] [address], [place] [address] March, [facility] [address] [id number] [address] [place] [address], [place] [address] Feb, [facility] [address] [id number] [address] [place] [address], [place] [address] Feb, [facility] [address] [id number] [address] [place] [address], [place] [address] Jan, [facility] [address] [id number] [address] [place] [address], [place] [address] Jan, [facility] [address] [id number] [address] [place] [address] 13 Jan, 2013 [facility] [address] [id number] [address] [place] [address], [place] [address] Jan, [facility] [address] [id number] [address] [place] [address], [place] [address] Jan, [facility] [address] [id number] [address] [place] [address], [place] [address] Dec, [facility] [address] [id number] [address] [place] [address], [place] [address] Dec, [facility] [address] [id number] [address] [place] [address], [place] [address] Dec, [facility] [address] [id number] [address] [place] [address], [place] [address] Dec, [facility] [address] [id number] [address] [place] [address], [place] [address] Dec, [facility] [address] [id number] [address] [place] [address], [place] [address] Dec, [facility] [address] [place] [id number] Nov, [facility] [address] [id number] [address] [place] [address], [place] [address] Nov, [facility] [address] [id number] [address] [place] [address], [place] [address] Nov, [facility] [address] [id number] [address] [place] [address], [place] [address] Nov, [facility] [address] [id number] [address] [place] [address], [place] [address] Nov, [facility] [address] [id number] [address] [place] [address], [place] [address] Oct, [facility] [address] [id number] [address] [place] [address], [place] [address] Oct, [facility] [address] [id number] [address] [place] [address], [place] [address] 18 Oct, 2012 [facility] [address] [id number] [address] [place] [address], [place] [address] 18 Oct, 2012 [facility] [address] [id number] [address] [place] [address], [place] [address] Oct, [facility] [address] [id number] [address] [place] [address], [place] [address] Oct, [facility] [address] [id number] [address] [place] [address], [place] [address] Oct, [facility] [address] [id number] [address] [place] [address], [place] [address] Oct, [facility] [address] [id number] [address] [place] [address], [place] [address] Sep, [facility] [address] [id number] [address] [place] [address], [place] [address] Sep, [facility] [address] [id number] [address] [place] [address], [place] [address] Sep, [facility] [address] [id number] [address] [place] [address], [place] [address] Sep, [facility] [address] [id number] [address] [place] [address], [place] [address] 14 Sep, 2012 [facility] [address] [id number] [address] [place] [address], [place] [address] 14 Sep, 2012 [facility] [address] [id number] [address] [place] [address], [place] [address] 12 Sep, 2012 [facility] [address] [id number] [address] [place] [address], [place] [address] 12 Sep, 2012 [facility] [address] [id number] [address] [place] [address], [place] [address] 05 Sep, 2012 [facility] [address] [id number] [address] [place] [address], [place] [address] Sep, [facility] [address] [facility] [id number] [address] [place] [id number] Sep, [facility] [address] [facility] [id number] [address] [place] [id number] Sep, [facility] [address] [facility] [id number] [address] [place] [id number] Sep, [facility] [address] [facility] [id number] [address] [place] [id number] Sep, [facility] [address] [facility] [id number] [address] [place] [id number] Sep, [facility] [address] [facility] [id number] [address] [place] [phone] Sep, IMMUNIZATIONS No Known Immunizations SOCIAL HISTORY [...]
--- OUTSIDE RECORDS SUMMARY | 2020-04-17 21:34 | XMS REPORT ---
Author Author Curt Barr Doctor Organization [facility] Address Unknown Phone Unavailable Care Team Providers Care Outpatient Receptionist Name Role Phone Migration, Doctor Unavailable Unavailable PROBLEMS Type Condition ICD9-CM Code [id number] Code Onset Dates Condition S tatus SNOMED Code Problem Hypertension, essential I10 Active 96792341 Problem Gastroparesis K31.84 Active 186875 006 Problem Type 1 diabetes mellitus with other diab etic neurological complication E10.49 Active 00333927 Problem Controlled diabetes mellitus type 1 without complications E10.9 Active 74826380 Problem Mood disorder F39 Active 429846 05 Problem Other chronic pain G89.29 Active 8 1146604 Problem 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 Active 85845544 Problem Type 1 diabetes mellitus with hyperglycemia E10.65 Active [id number] Problem Type 1 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 Active 25670345 Problem Chronic fatigue R53.82 Active 8422 9001 ALLERGIES Substance Reaction Event Type Date Status Cipro Unknown Drug Allergy Feb, Active Sulfa(sulfonamide Antibiotics) Unknown Non Drug Allergy Feb Active ENCOUNTERS Encounter Location Date Diagnosis [facility] [address] [facility] [id number] [address] [place] [phone] Apr, Type 1 diabetes mellitus wit h other diabetic neurological complication E10.49 [facility] [address] [facility] [id number] [address] [place] [address] Apr, Encounter for Medicare annua l wellness exam Z00.00 [facility] [address] [facility] [id number] [address] [place] [address] March, Encounter for Medicare annua l wellness exam Z00.00 and Type 1 diabetes mellitus with other diabetic neurological complication E10.49 [facility] [address] [facility] [id number] [address] [place] [address] Feb, Type 1 diabetes mellitus wit h other diabetic neurological complication E10.49 [facility] [address] [place] [id number] [address] [place] [address] 04 Feb, 2019 Encounter for Medicare jyothi brewer wellness exam Z00.00 ; Mood disorder F39 ; Type 1 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 ; Hypertension, essential I10 and Chronic fatigue R53.82 [facility] [address] [id number] [address] [place] [id number] 13 Jan, 2019 Type 1 diabetes mellitus wit h other diabetic neurological complication E10.49 [facility] [address] [id number] [address] [place] [id number] 11 Jan, 2019 [facility] [address] [facility] [id number] [address] [place] [id number] 07 Jan, 2019 Other chronic pain G89.29 [facility] [address] [id number] [address] [place] [phone] 11 Dec, 2018 [facility] [address] [facility] [id number] [address] [place] [id number] 08 Dec, 2018 Type 1 diabetes mellitus wit h other diabetic neurological complication E10.49 [facility] [address] [id number] [address] [place] [id number] 05 Dec, 2018 Other chronic pain G89.29 [facility] [address] [facility] [id number] [address] [place] [id number] Nov, [facility] [address] [id number] [address] [place] [address] [id number] Nov, Caries K02.9 [facility] [address] [facility] [id number] [address] [place] [address] Nov, Type 1 diabetes mellitus wit h other diabetic neurological complication E10.49 [facility] [address] [facility] [id number] [address] [place] [id number] Nov, Controlled diabetes mellitus type 1 without complications E10.9 ; Other chronic pain G89.29 and Pain in left knee M25.562 [facility] [address] [id number] [address] [place] [address] [id number] 18 Oct, 2018 Dental examination Z01.20 [facility] [address] [facility] [id number] [address] [place] [id number] 14 Oct, 2018 Cutaneous abscess of unspeci fied foot L02.619 and Cellulitis of unspecified part of limb L03.119 [facility] [address] [facility] [id number] [address] [place] [id number] 11 Oct, 2018 [facility] [address] [facility] [id number] [address] [place] [id number] 10 Oct, 2018 Type 1 diabetes mellitus wit h other diabetic neurological complication E10.49 [facility] [address] [id number] [address] [place] [address] [id number] 06 Oct, 2018 Dental examination Z01.20 an d Caries K02.9 [place] [address] [facility] [id number] [address] [place] [id number] 04 Oct, 2018 Cutaneous abscess of left fo ot L02.612 and Cellulitis of left lower limb L03.116 [facility] [address] [facility] [id number] [address] [place] [id number] 04 Oct, 2018 Dental examination Z01.20 an d Pain, dental K08.89 [facility] [address] [facility] [id number] [address] [place] [id number] 21 Sep, 2018 Left foot pain M79.672 and L eft anterior knee pain M25.562 [facility] [address] [facility] [id number] [address] [place] [id number] 12 Sep, 2018 Type 1 diabetes mellitus wit h other diabetic neurological complication E10.49 [facility] [address] [facility] [id number] [address] [place] [id number] Sep, [facility] [address] [facility] [id number] [address] [place] [id number] 11 Aug, 2018 Type 1 diabetes mellitus wit h other diabetic neurological complication E10.49 [facility] [address] [facility] [id number] [address] [place] [id number] Aug, Encounter for immunization Z 23 [facility] [address] [facility] [id number] [address] [place] [id number] 05 Aug, 2018 Type 1 diabetes mellitus wit h hyperglycemia E10.65 [facility] [address] [facility] [id number] [address] [place] [id number] 21 Jul, 2018 Type 1 diabetes mellitus wit h hyperglycemia E10.65 [facility] [address] [facility] [id number] [address] [place] [id number] 19 Jul, 2018 [facility] [address] [id number] [address] [place] [id number] 18 Jul, 2018 [facility] [address] [facility] [id number] [address] [place] [id number] Jul, Type 1 diabetes mellitus wit h other diabetic neurological complication E10.49 [facility] [address] [facility] [id number] [address] [place] [id number] Jul, Type 1 diabetes mellitus wit h other diabetic neurological complication E10.49 and Mood disorder F39 [facility] [address] [id number] [address] [place] [phone] Jun, [facility] [address] [facility] [id number] [address] [place] [address] Jun, Type 1 diabetes mellitus wit h other diabetic neurological complication E10.49 and Chronic fatigue R53.82 [facility] [address] [facility] [id number] [address] [place] [address] May, Type 1 diabetes mellitus wit h other diabetic neurological complication E10.49 [facility] [address] [id number] [address] [place] [id number] May, [facility] [address] [facility] [id number] [address] [place] [address] May, [facility] [address] [facility] [id number] [address] [place] [address] Apr, [facility] [address] [facility] [id number] [address] [place] [address] Apr, Type 1 diabetes mellitus wit h other diabetic neurological complication E10.49 [facility] [address] [id number] [address] [place] [id number] March, [facility] [address] [facility] [id number] [address] [place] [id number] Feb, [facility] [address] [facility] [id number] [address] [place] [address] Feb, Type 1 diabetes mellitus wit h other diabetic neurological complication E10.49 ; Tobacco abuse Z72.0 and Tobacco abuse counseling Z71.6 [facility] [address] [id number] [address] [place] [address] Jan, Type 1 diabetes mellitus wit h hyperglycemia E10.65 [facility] [address] [facility] [id number] [address] [place] [id number] Jan, [facility] [address] [facility] [id number] [address] [place] [address] Dec, Tobacco abuse Z72.0 [facility] [address] [id number] [address] [place] [address] Dec, Type 1 diabetes mellitus wit h hyperglycemia E10.65 [facility] [address] [facility] [id number] [address] [place] [id number] 16 Dec, 2017 Type 1 diabetes mellitus wit h hyperglycemia E10.65 ; Tobacco abuse Z72.0 and Tobacco abuse counseling Z71.6 [facility] [address] [id number] [address] [place] [address] Nov, Type 1 diabetes mellitus wit h hyperglycemia E10.65 [facility] [address] [facility] [id number] [address] [place] [phone] Oct, Type 1 diabetes mellitus wit h hyperglycemia E10.65 [facility] [address] [facility] [id number] [address] [place] [id number] Oct, Type 1 diabetes mellitus wit h hyperglycemia E10.65 [facility] [address] [facility] [id number] [address] [place] [id number] Sep, Type 1 diabetes mellitus wit h hyperglycemia E10.65 [facility] [address] [id number] [address] [place] [address] Aug, Type 1 diabetes mellitus wit h hyperglycemia E10.65 [facility] [address] [id number] [address] [place] [phone] Aug, [facility] [address] [id number] [address] [place] [id number] Aug, Type 1 diabetes mellitus wit h hyperglycemia E10.65 [facility] [address] [id number] [address] [place] [phone] Aug, Encounter for immunization Z 23 [facility] [address] [id number] [address] [place] [address] Aug, Type 1 diabetes mellitus wit h hyperglycemia E10.65 [facility] [address] [id number] [address] [place] [address] Jul, Type 1 diabetes mellitus wit h hyperglycemia E10.65 [facility] [address] [id number] [address] [place] [id number] Jul, Type 1 diabetes mellitus wit h hyperglycemia E10.65 [facility] [address] [id number] [address] [place] [address] May, Type 1 diabetes mellitus wit h hyperglycemia E10.65 [facility] [address] [id number] [address] [place] [address] May, [facility] [address] [id number] [address] [place] [id number] Apr, [facility] [address] [id number] [address] [place] [address] Apr, Type 1 diabetes mellitus wit h hyperglycemia E10.65 [facility] [address] [id number] [address] [place] [id number] March, [facility] [address] [facility] [id number] [address] [place] [phone] March, [facility] [address] [id number] [address] [place] [phone] Jan, [facility] [address] [id number] [address] [place] [phone] Jan, [facility] [address] [id number] [address] [place] [phone] Jan, Type 1 diabetes mellitus wit h diabetic polyneuropathy E10.42 [facility] [address] [id number] [address] [place] [address] Jan, Type 1 diabetes mellitus wit h hyperglycemia E10.65 ; Excessive cerumen in both ear canals H61.23 and Controlled diabetes mellitus type 1 without complications E10.9 [facility] [address] [id number] [address] [place] [phone] Dec, [facility] [address] [id number] [address] [place] [phone] Dec, [facility] [address] [id number] [address] [place] [phone] Dec, [facility] [address] [id number] [address] [place] [phone] Dec, [facility] [address] [id number] [address] [place] [phone] Nov, [facility] [address] [id number] [address] [place] [id number] Nov, [facility] [address] [id number] [address] [place] [phone] Oct, Type 1 diabetes mellitus wit h hyperglycemia E10.65 [facility] [address] [id number] [address] [place] [phone] Sep, [facility] [address] [id number] [address] [place] [address] Sep, [facility] [address] [id number] [address] [place] [id number] Sep, Controlled diabetes mellitus type 1 without complications E10.9 [facility] [address] [id number] [address] [place] [id number] Sep, [facility] [address] [id number] [address] [place] [address] [id number] Aug, Dental caries K02.9 [facility] [address] [id number] [address] [place] [id number] Aug, Type 1 diabetes mellitus wit h diabetic polyneuropathy E10.42 [facility] [address] [id number] [address] [place] [address] Aug, [facility] [address] [facility] [id number] [address] [place] [id number] Aug, [facility] [address] [facility] [id number] [address] [place] [address] Aug, [facility] [address] [id number] [address] [place] [id number] Jul, Type 1 diabetes mellitus wit h hyperglycemia E10.65 [facility] [address] [facility] [id number] [address] [place] [address] Jul, Type 1 diabetes mellitus wit h hyperglycemia E10.65 ; Tooth pain K08.8 and Encounter for immunization Z23 [facility] [address] [id number] [address] [place] [address] [id number] Jul, Dental examination Z01.20 [facility] [address] [id number] [address] [place] [id number] Jul, [facility] [address] [facility] [id number] [address] [place] [id number] Jul, [facility] [address] [facility] [id number] [address] [place] [id number] Jul, [facility] [address] [facility] [id number] [address] [place] [id number] Jun, [facility] [address] [id number] [address] [place] [address], [place] [address] May, [facility] [address] [id number] [address] [place] [address], [place] [address] Apr, [facility] [address] [id number] [address] [place] [address], [place] [address] Apr, [facility] [address] [id number] [address] [place] [address], [place] [address] Apr, [facility] [address] [id number] [address] [place] [address], [place] [address] March, [facility] [address] [id number] [address] [place] [address], [place] [address] March, [facility] [address] [id number] [address] [place] [address], [place] [address] Feb, [facility] [address] [id number] [address] [place] [address], [place] [address] Feb, [facility] [address] [id number] [address] [place] [address], [place] [address] Feb, Type 1 diabetes mellitus wit h hyperglycemia E10.65 [facility] [address] [id number] [address] [place] [address], [place] [address] Jan, [facility] [address] [id number] [address] [place] [address], [place] [address] Jan, [facility] [address] [id number] [address] [place] [address], [place] [address] Jan, [facility] [address] [id number] [address] [place] [address], [place] [address] Jan, [facility] [address] [id number] [address] [place] [address], [place] [address] Dec, [facility] [address] [id number] [address] [place] [address], [place] [address] Nov, [facility] [address] [facility] [id number] [address] [place] [id number] 14 Nov, 2015 [facility] [address] [facility] [id number] [address] [place] [id number] 07 Oct, 2015 [facility] [address] [facility] [id number] [address] [place] [address] 04 Oct, 2015 Type 1 diabetes mellitus wit h 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 ; Type 1 diabetes mellitus with hyperglycemia E10.65 ; Gastroparesis K31.84 and Esophageal stricture K22.2 [facility] [address] [facility] [id number] [address] [place] [phone] Oct, [facility] [address] [facility] [id number] [address] [place] [address] Sep, [facility] [address] [facility] [id number] [address] [place] [address] Sep, Type 1 diabetes mellitus wit h other diabetic neurological complication E10.49 [facility] [address] [facility] [id number] [address] [place] [id number] 22 Aug, 2015 Encounter for immunization Z 23 [facility] [address] [facility] [id number] [address] [place] [id number] 19 Aug, 2015 [facility] [address] [facility] [id number] [address] [place] [phone] 13 Aug, 2015 [facility] [address] [facility] [id number] [address] [place] [address] 21 Jul, 2015 [facility] [address] [facility] [id number] [address] [place] [phone] 14 Jul, 2015 [facility] [address] [facility] [id number] [address] [place] [address] Jun, [facility] [address] [facility] [id number] [address] [place] [address] Jun, [facility] [address] [facility] [id number] [address] [place] [address] Jun, [facility] [address] [id number] [address] [place] [id number] May, [facility] [address] [id number] [address] [place] [address] May, [facility] [address] [id number] [address] [place] [phone] May, Diabetes type 1, controlled 250.01 [facility] [address] [id number] [address] [place] [address] May, [facility] [address] [id number] [address] [place] [address] May, [facility] [address] [id number] [address] [place] [id number] Apr, Dental examination V72.2 [facility] [address] [id number] [address] [place] [address] Apr, [facility] [address] [id number] [address] [place] [id number] Apr, [facility] [address] [id number] [address] [place] [phone] Apr, [facility] [address] [id number] [address] [place] [phone] Apr, [facility] [address] [id number] [address] [place] [phone] Apr, [facility] [address] [id number] [address] [place] [id number] Apr, Dental examination V72.2 [facility] [address] [id number] [address] [place] [id number] Apr, [facility] [address] [id number] [address] [place] [id number] Apr, [facility] [address] [id number] [address] [place] [id number] March, Diabetes mellitus type 1 250 .01 [facility] [address] [id number] [address] [place] [address], [place] [id number] March, [facility] [address] [id number] [address] [place] [address], [place] [id number] Feb, [facility] [address] [id number] [address] [place] [address], [place] [address] Feb, [facility] [address] [id number] [address] [place] [address], [place] [phone] Jan, [facility] [address] [id number] [address] [place] [address], [place] [address] Jan, [facility] [address] [id number] [address] [place] [address], [place] [id number] Jan, [facility] [address] [id number] [address] [place] [address], [place] [id number] Jan, [facility] [address] [id number] [address] [place] [address], [place] [address] Dec, [facility] [address] [id number] [address] [place] [address], [place] [address] Dec, [facility] [address] [id number] [address] [place] [address], [place] [address] Nov, [facility] [address] [address] [id number] [address] [place] [address], [place] [address] Nov, [facility] [address] [id number] [address] [place] [address] Nov, [facility] [address] [id number] [address] [place] [address], [place] [address] Nov, [facility] [address] [id number] [address] [place] [address], [place] [address] Nov, [facility] [address] [id number] [address] [place] [address], [place] [address] Nov, [facility] [address] [id number] [address] [place] [address], [place] [address] Nov, [facility] [address] [id number] [address] [place] [address], [place] [address] Oct, [facility] [address] [id number] [address] [place] [address], [place] [address] Oct, [facility] [address] [id number] [address] [place] [address], [place] [address] Sep, [facility] [address] [id number] [address] [place] [address], [place] [address] Aug, [facility] [address] [id number] [address] [place] [address], [place] [address] Aug, [facility] [address] [id number] [address] [place] [address], [place] [address] Aug, [facility] [address] [id number] [address] [place] [address], [place] [address] Aug, [facility] [address] [id number] [address] [place] [address], [place] [address] Aug, [facility] [address] [id number] [address] [place] [address], [place] [address] Aug, [facility] [address] [id number] [address] [place] [address], [place] [address] Aug, [facility] [address] [id number] [address] [place] [address], [place] [address] Aug, [facility] [address] [id number] [address] [place] [address], [place] [address] Aug, [facility] [address] [id number] [address] [place] [address], [place] [address] Aug, [facility] [address] [id number] [address] [place] [address], [place] [address] Aug, [facility] [address] [id number] [address] [place] [address], [place] [address] Aug, [facility] [address] [id number] [address] [place] [address], [place] [address] Aug, [facility] [address] [id number] [address] [place] [address], [place] [address] Aug, [facility] [address] [id number] [address] [place] [address], [place] [address] Jul, [facility] [address] [id number] [address] [place] [address], [place] [address] Jul, [facility] [address] [id number] [address] [place] [address], [place] [address] Jul, [facility] [address] [id number] [address] [place] [address], [place] [address] Jul, [facility] [address] [id number] [address] [place] [address], [place] [address] Jun, [facility] [address] [id number] [address] [place] [address], [place] [address] Jun, [facility] [address] [id number] [address] [place] [address], [place] [address] Jun, [facility] [address] [id number] [address] [place] [address], [place] [address] Jun, [facility] [address] [id number] [address] [place] [address], [place] [address] May, [facility] [address] [id number] [address] [place] [address], [place] [address] May, [facility] [address] [id number] [address] [place] [address], [place] [address] May, [facility] [address] [id number] [address] [place] [address], [place] [address] May, [facility] [address] [id number] [address] [place] [address], [place] [address] May, [facility] [address] [id number] [address] [place] [address], [place] [address] May, [facility] [address] [id number] [facility], [place] [address] May, [facility] [address] [id number] [address] [place] [address], [place] [address] May, [facility] [address] [id number] [address] [place] [address], [place] [address] May, 2013 [facility] [address] [id number] [address] [place] [address], [place] [address] May, 2013 [facility] [address] [id number] [address] [place] [address], [place] [address] May, [facility] [address] [id number] [address] [place] [address], [place] [address] May, [facility] [address] [id number] [address] [place] [address], [place] [address] May, [facility] [address] [id number] [address] [place] [address], [place] [address] Apr, [facility] [address] [id number] [address] [place] [address], [place] [address] Apr, [facility] [address] [id number] [address] [place] [address], [place] [address] Apr, [facility] [address] [id number] [address] [place] [address], [place] [address] Apr, [facility] [address] [id number] [address] [place] [address], [place] [address] Apr, [facility] [address] [id number] [address] [place] [address], [place] [address] Apr, [facility] [address] [id number] [address] [place] [address], [place] [address] Apr, [facility] [address] [id number] [address] [place] [address], [place] [address] Apr, [facility] [address] [id number] [facility] [place] [address] Apr, [facility] [address] [id number] [facility] [place] [address] Apr, [facility] [address] [id number] [address] [place] [address], [place] [address] Apr, [facility] [address] [id number] [address] [place] [address], [place] [address] Apr, [facility] [address] [id number] [address] [place] [address], [place] [address] Apr, [facility] [address] [id number] [address] [place] [address], [place] [address] Apr, [facility] [address] [id number] [address] [place] [address], [place] [address] March, [facility] [address] [id number] [address] [place] [address], [place] [address] March, [facility] [address] [id number] [address] [place] [address], [place] [address] March, [facility] [address] [id number] [address] [place] [address], [place] [address] March, [facility] [address] [id number] [address] [place] [address], [place] [address] March, [facility] [address] [id number] [address] [place] [address], [place] [address] March, [facility] [address] [id number] [address] [place] [address], [place] [address] March, [facility] [address] [id number] [address] [place] [address], [place] [address] March, [facility] [address] [id number] [address] [place] [address], [place] [address] March, [facility] [address] [id number] [address] [place] [address], [place] [address] March, [facility] [address] [id number] [facility] [place] [address] Feb, [facility] [address] [id number] [facility] [place] [address] Feb, [facility] [address] [id number] [address] [place] [address], [place] [address] Feb, [facility] [address] [id number] [address] [place] [address], [place] [address] Feb, [facility] [address] [id number] [address] [place] [address], [place] [address] Feb, [facility] [address] [id number] [address] [place] [address], [place] [address] Feb, [facility] [address] [id number] [address] [place] [address], [place] [address] Feb, [facility] [address] [id number] [address] [place] [address], [place] [address] Feb, [facility] [address] [id number] [address] [place] [address], [place] [address] Jan, [facility] [address] [id number] [address] [place] [address], [place] [address] Jan, [facility] [address] [id number] [address] [place] [address], [place] [address] Jan, [facility] [address] [id number] [address] [place] [address], [place] [address] Jan, [facility] [address] [id number] [address] [place] [address], [place] [address] Jan, [facility] [address] [id number] [address] [place] [address], [place] [address] Jan, [facility] [address] [id number] [address] [place] [address], [place] [address] Jan, [facility] [address] [id number] [address] [place] [address], [place] [address] Jan, [facility] [address] [id number] [address] [place] [address], [place] [address] Jan, [facility] [address] [id number] [address] [place] [address], [place] [address] Jan, [facility] [address] [id number] [address] [place] [address], [place] [address] Dec, [facility] [address] [id number] [address] [place] [address], [place] [address] Dec, [facility] [address] [id number] [address] [place] [address], [place] [address] Nov, [facility] [address] [id number] [address] [place] [address], [place] [address] Nov, [facility] [address] [id number] [address] [place] [address], [place] [address] Nov, [facility] [address] [id number] [address] [place] [address], [place] [address] Nov, [facility] [address] [id number] [address] [place] [address], [place] [address] Nov, [facility] [address] [id number] [address] [place] [address], [place] [address] Nov, [facility] [address] [id number] [address] [place] [address], [place] [address] Nov, [facility] [address] [id number] [address] [place] [address], [place] [address] Nov, [facility] [address] [id number] [address] [place] [address], [place] [address] Oct, [facility] [address] [id number] [address] [place] [address], [place] [address] Oct, [facility] [address] [id number] [address] [place] [address], [place] [address] Oct, [facility] [address] [id number] [address] [place] [address], [place] [address] Oct, [facility] [address] [id number] [address] [place] [address], [place] [address] Oct, [facility] [address] [id number] [address] [place] [address], [place] [address] Oct, [facility] [address] [id number] [address] [place] [address], [place] [address] Sep, [facility] [address] [id number] [address] [place] [address], [place] [address] Sep, [facility] [address] [id number] [address] [place] [address], [place] [address] Sep, [facility] [address] [id number] [address] [place] [address], [place] [address] Sep, [facility] [address] [id number] [address] [place] [address], [place] [address] Sep, [facility] [address] [id number] [address] [place] [address], [place] [address] Aug, [facility] [address] [id number] [address] [place] [address], [place] [address] Aug, [facility] [address] [id number] [address] [place] [address], [place] [address] Aug, [facility] [address] [id number] [address] [place] [address] Aug, [facility] [address] [id number] [address] [place] [address], [place] [address] Aug, [facility] [address] [id number] [address] [place] [address], [place] [address] Aug, [facility] [address] [id number] [address] [place] [address] Jul, [facility] [address] [id number] [address] [place] [address] Jul, [facility] [address] [id number] [address] [place] [address], [place] [address] Jul, [facility] [address] [id number] [address] [place] [address], [place] [address] Jun, [facility] [address] [id number] [address] [place] [address], [place] [address] Jun, [facility] [address] [id number] [address] [place] [address], [place] [address] May, [facility] [address] [id number] [address] [place] [address], [place] [address] May, [facility] [address] [id number] [address] [place] [address], [place] [address] Apr, [facility] [address] [id number] [address] [place] [address], [place] [address] Apr, [facility] [address] [id number] [address] [place] [address], [place] [address] Apr, [facility] [address] [id number] [address] [place] [address], [place] [address] March, [facility] [address] [id number] [address] [place] [address], [place] [address] Feb, [facility] [address] [id number] [address] [place] [address], [place] [address] Feb, [facility] [address] [id number] [address] [place] [address], [place] [address] Jan, [facility] [address] [id number] [address] [place] [address], [place] [address] Jan, [facility] [address] [id number] [address] [place] [address], [place] [address] 13 Jan, 2013 [facility] [address] [id number] [address] [place] [address], [place] [address] 08 Jan, 2013 [facility] [address] [id number] [address] [place] [address], [place] [address] Jan, [facility] [address] [id number] [address] [place] [address], [place] [address] Dec, [facility] [address] [id number] [address] [place] [address], [place] [address] Dec, [facility] [address] [id number] [address] [place] [address], [place] [address] Dec, [facility] [address] [id number] [address] [place] [address], [place] [address] Dec, [facility] [address] [id number] [address] [place] [address], [place] [address] Dec, [facility] [address] [id number] [address] [place] [address], [place] [address] Dec, [facility] [place] [id number] Nov, [facility] [address] [id number] [address] [place] [address], [place] [address] Nov, [facility] [address] [id number] [address] [place] [address], [place] [address] Nov, [facility] [address] [id number] [address] [place] [address], [place] [address] Nov, [facility] [address] [id number] [address] [place] [address], [place] [address] Nov, [facility] [address] [id number] [address] [place] [address], [place] [address] Oct, [facility] [address] [id number] [address] [place] [address], [place] [address] Oct, [facility] [address] [id number] [address] [place] [address], [place] [address] Oct, [facility] [address] [id number] [address] [place] [address], [place] [address] Oct, [facility] [address] [id number] [address] [place] [address], [place] [address] Oct, [facility] [address] [id number] [address] [place] [address], [place] [address] Oct, [facility] [address] [id number] [address] [place] [address], [place] [address] Oct, [facility] [address] [id number] [address] [place] [address], [place] [address] Oct, [facility] [address] [id number] [address] [place] [address], [place] [address] Sep, [facility] [address] [id number] [address] [place] [address], [place] [address] Sep, [facility] [address] [id number] [address] [place] [address], [place] [address] Sep, [facility] [address] [id number] [address] [place] [address], [place] [address] Sep, [facility] [address] [id number] [address] [place] [address], [place] [address] Sep, [facility] [address] [id number] [address] [place] [address], [place] [address] Sep, [facility] [address] [id number] [address] [place] [address], [place] [address] Sep, [facility] [address] [id number] [address] [place] [address], [place] [address] Sep, [facility] [address] [id number] [address] [place] [address], [place] [address] Sep, [facility] [address] [id number] [address] [place] [address], [place] [address] Sep, [facility] [address] [id number] [address] [place] [address], [place] [address] Sep, [facility] [address] [id number] [address] [place] [address] Sep, [facility] [address] [facility] [id number] [address] [place] [address] Sep, [facility] [address] [facility] [id number] [address] [place] [id number] Sep, [facility] [address] [facility] [id number] [address] [place] [id number] Sep, [facility] [address] [facility] [id number] [address] [place] [id number] Sep, IMMUNIZATIONS No Known Immunizations SOCIAL HISTORY Never Assessed REASON FOR VISIT [facility] [place] VITAL SIGNS MEDICATIONS Medication Instructions Dosage Frequency Start Date End Date Duration S tatus PrednisoLONE Acetate 0.12 % instill 1 dr op into left eye by Ophthalmic route 2 times per day 2drops od; 3drops os Aug, Active Diazepam 10 mg take 1 tablet by Oral route 3 times per day PRN anxiety-- Jan, Active NovoLog 100 unit/mL inject 10 Units 24 times per day p er insulin pump Jun, Active RESULTS No Results PROCEDURES No Known procedures INSTRUCTIONS MEDICATIONS ADMINISTERED No Known Medications MEDICAL (GENERAL) HISTORY Type Description Date Medical History hypertension Medical History type I diabetes Medical History chronic renal insufficiency Surgical History gastric pacemaker 2008 Hospitalization History nausea 2011
--- OUTSIDE RECORDS SUMMARY | 2020-04-17 21:34 | XMS REPORT ---
Author Author Curt NORWOOD Organization [facility] Address [address] [place] [address] Care Team Providers Care Stretcher Helper Name Role Phone CHANG NORWOOD Unavailable PROBLEMS Type Condition ICD9-CM Code AWF97-SV Code Onset Dates Condition S tatus SNOMED Code Problem Hypertension, essential I10 Active 73801168 Problem Gastroparesis K31.84 Active 517089 006 Problem Type 1 diabetes mellitus with other diab etic neurological complication E10.49 Active 40746402 Problem Controlled diabetes mellitus type 1 without complications E10.9 Active 67391959 Problem Mood disorder F39 Active 349785 05 Problem Other chronic pain G89.29 Active 8 7289778 Problem 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 Active 65671332 Problem Type 1 diabetes mellitus with hyperglycemia E10.65 Active [id number] Problem Type 1 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 Active 29793466 Problem Chronic fatigue R53.82 Active 8422 9001 ALLERGIES No Information ENCOUNTERS Encounter Location Date Diagnosis [place] [id number] [facility] [id number] [address] [place] [phone] Apr, [facility] [address] [facility] [id number] [address] [place] [id number] Apr, Type 1 diabetes mellitus wit h other diabetic neurological complication E10.49 [facility] [address] [facility] [id number] [address] [place] [phone] Apr, Encounter for Medicare annua l wellness exam Z00.00 [facility] [address] [facility] [id number] [address] [place] [phone] March, Encounter for Medicare annua l wellness exam Z00.00 and Type 1 diabetes mellitus with other diabetic neurological complication E10.49 [facility] [place] [address] [facility] [id number] [address] [place] [id number] 10 Feb, 2019 Type 1 diabetes mellitus wit h other diabetic neurological complication E10.49 [facility] [address] [facility] [id number] [address] [place] [id number] 04 Feb, 2019 Encounter for Medicare jyothi brewer wellness exam Z00.00 ; Mood disorder F39 ; Type 1 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 ; Hypertension, essential I10 and Chronic fatigue R53.82 [facility] [address] [facility] [id number] [address] [place] [id number] 13 Jan, 2019 Type 1 diabetes mellitus wit h other diabetic neurological complication E10.49 [facility] [address] [facility] [id number] [address] [place] [id number] 11 Jan, 2019 [facility] [address] [facility] [id number] [address] [place] [id number] 07 Jan, 2019 Other chronic pain G89.29 [facility] [address] [facility] [id number] [address] [place] [phone] 11 Dec, 2018 [facility] [address] [facility] [id number] [address] [place] [phone] 08 Dec, 2018 Type 1 diabetes mellitus wit h other diabetic neurological complication E10.49 [facility] [place] [address] [facility] [id number] [address] [place] [id number] 05 Dec, 2018 Other chronic pain G89.29 [facility] [place] [address] [facility] [id number] [address] [place] [id number] Nov, [facility] [address] [id number] [address] [place] [id number] Nov, Caries K02.9 [facility] [address] [facility] [id number] [address] [place] [id number] 15 Nov, 2018 Type 1 diabetes mellitus wit h other diabetic neurological complication E10.49 [facility] [place] [address] [facility] [id number] [address] [place] [id number] 07 Nov, 2018 Controlled diabetes mellitus type 1 without complications E10.9 ; Other chronic pain G89.29 and Pain in left knee M25.562 [facility] [address] [id number] [address] [place] [id number] 18 Oct, 2018 Dental examination Z01.20 [facility] [address] [facility] [id number] [address] [place] [id number] 14 Oct, 2018 Cutaneous abscess of unspeci fied foot L02.619 and Cellulitis of unspecified part of limb L03.119 [facility] [place] [address] [facility] [id number] [address] [place] [phone] 11 Oct, 2018 [facility] [place] [address] [facility] [id number] [address] [place] [phone] 10 Oct, 2018 Type 1 diabetes mellitus wit h other diabetic neurological complication E10.49 [facility] [address] [id number] [address] [place] [id number] 06 Oct, 2018 Dental examination Z01.20 an d Caries K02.9 [facility] [place] [address] [facility] [id number] [address] [place] [id number] 04 Oct, 2018 Cutaneous abscess of left fo ot L02.612 and Cellulitis of left lower limb L03.116 [facility] [place] [address] [facility] [id number] [address] [place] [id number] 04 Oct, 2018 Dental examination Z01.20 an d Pain, dental K08.89 [facility] [address] [facility] [id number] [address] [place] [phone] Sep, Left foot pain M79.672 and L eft anterior knee pain M25.562 [facility] [place] [address] [facility] [id number] [address] [place] [id number] 12 Sep, 2018 Type 1 diabetes mellitus wit h other diabetic neurological complication E10.49 [facility] [place] [address] [facility] [id number] [address] [place] [phone] Sep, [facility] [place] [address] [facility] [id number] [address] [place] [id number] Aug, Type 1 diabetes mellitus wit h other diabetic neurological complication E10.49 [facility] [place] [address] [id number] [address] [place] [id number] 10 Aug, 2018 Encounter for immunization Z 23 [facility] [place] [address] [facility] [id number] [address] [place] [id number] 05 Aug, 2018 Type 1 diabetes mellitus wit h hyperglycemia E10.65 [facility] [address] [id number] [address] [place] [id number] 21 Jul, 2018 Type 1 diabetes mellitus wit h hyperglycemia E10.65 [facility] [place] [address] [id number] [address] [place] [id number] 19 Jul, 2018 [facility] [place] [address] [id number] [address] [place] [id number] 18 Jul, 2018 [facility] [place] [address] [facility] [id number] [address] [place] [id number] 17 Jul, 2018 Type 1 diabetes mellitus wit h other diabetic neurological complication E10.49 [facility] [place] [address] [id number] [address] [place] [phone] Jul, Type 1 diabetes mellitus wit h other diabetic neurological complication E10.49 and Mood disorder F39 [facility] [place] [address] [id number] [address] [place] [phone] Jun, [facility] [place] [address] [id number] [address] [place] [id number] Jun, Type 1 diabetes mellitus wit h other diabetic neurological complication E10.49 and Chronic fatigue R53.82 [facility] [place] [address] [id number] [address] [place] [id number] May, Type 1 diabetes mellitus wit h other diabetic neurological complication E10.49 [facility] [place] [address] [id number] [address] [place] [id number] May, [facility] [place] [address] [facility] [id number] [address] [place] [phone] May, [facility] [place] [address] [facility] [id number] [address] [place] [phone] Apr, [facility] [place] [address] [facility] [id number] [address] [place] [id number] Apr, Type 1 diabetes mellitus wit h other diabetic neurological complication E10.49 [facility] [place] [address] [facility] [id number] [address] [place] [phone] March, [facility] [place] [address] [facility] [id number] [address] [place] [id number] Feb, [facility] [place] [address] [facility] [id number] [address] [place] [id number] Feb, Type 1 diabetes mellitus wit h other diabetic neurological complication E10.49 ; Tobacco abuse Z72.0 and Tobacco abuse counseling Z71.6 [facility] [place] [address] [facility] [id number] [address] [place] [id number] Jan, Type 1 diabetes mellitus wit h hyperglycemia E10.65 [facility] [place] [address] [facility] [id number] [address] [place] [phone] Jan, [facility] [place] [address] [facility] [id number] [address] [place] [phone] Dec, Tobacco abuse Z72.0 [facility] [place] [address] [facility] [id number] [address] [place] [id number] Dec, Type 1 diabetes mellitus wit h hyperglycemia E10.65 [facility] [place] [address] [facility] [id number] [address] [place] [id number] Dec, Type 1 diabetes mellitus wit h hyperglycemia E10.65 ; Tobacco abuse Z72.0 and Tobacco abuse counseling Z71.6 [facility] [address] [facility] [id number] [address] [place] [id number] Nov, Type 1 diabetes mellitus wit h hyperglycemia E10.65 [facility] [place] [address] [facility] [id number] [address] [place] [id number] Oct, Type 1 diabetes mellitus wit h hyperglycemia E10.65 [facility] [place] [address] [facility] [id number] [address] [place] [id number] Oct, Type 1 diabetes mellitus wit h hyperglycemia E10.65 [facility] [place] [address] [facility] [id number] [address] [place] [id number] Sep, Type 1 diabetes mellitus wit h hyperglycemia E10.65 [facility] [place] [address] [id number] [address] [place] [id number] Aug, Type 1 diabetes mellitus wit h hyperglycemia E10.65 [facility] [place] [address] [facility] [id number] [address] [place] [phone] Aug, [facility] [place] [address] [facility] [id number] [address] [place] [phone] Aug, Type 1 diabetes mellitus wit h hyperglycemia E10.65 [facility] [address] [facility] [id number] [address] [place] [phone] Aug, Encounter for immunization Z 23 [facility] [address] [facility] [id number] [address] [place] [phone] Aug, Type 1 diabetes mellitus wit h hyperglycemia E10.65 [facility] [place] [address] [id number] [address] [place] [id number] Jul, Type 1 diabetes mellitus wit h hyperglycemia E10.65 [facility] [place] [address] [facility] [id number] [address] [place] [id number] Jul, Type 1 diabetes mellitus wit h hyperglycemia E10.65 [facility] [place] [address] [id number] [address] [place] [id number] May, Type 1 diabetes mellitus wit h hyperglycemia E10.65 [facility] [place] [address] [id number] [address] [place] [phone] May, [facility] [place] [address] [facility] [id number] [address] [place] [phone] Apr, [facility] [place] [address] [facility] [id number] [address] [place] [id number] Apr, Type 1 diabetes mellitus wit h hyperglycemia E10.65 [facility] [place] [address] [facility] [id number] [address] [place] [id number] March, [facility] [place] [address] [id number] [address] [place] [phone] March, [facility] [place] [address] [id number] [address] [place] [phone] Jan, [facility] [place] [address] [facility] [id number] [address] [place] [phone] Jan, [facility] [address] [id number] [address] [place] [id number] Jan, Type 1 diabetes mellitus wit h diabetic polyneuropathy E10.42 [facility] [place] [address] [id number] [address] [place] [phone] Jan, Type 1 diabetes mellitus wit h hyperglycemia E10.65 ; Excessive cerumen in both ear canals H61.23 and Controlled diabetes mellitus type 1 without complications E10.9 [facility] [address] [id number] [address] [place] [phone] Dec, [facility] [place] [address] [id number] [address] [place] [phone] Dec, [facility] [place] [address] [facility] [id number] [address] [place] [id number] Dec, [facility] [place] [address] [facility] [id number] [address] [place] [id number] Dec, [facility] [place] [address] [id number] [address] [place] [phone] Nov, [facility] [place] [address] [id number] [address] [place] [phone] Nov, [facility] [place] [address] [id number] [address] [place] [phone] Oct, Type 1 diabetes mellitus wit h hyperglycemia E10.65 [facility] [place] [address] [facility] [id number] [address] [place] [phone] Sep, [facility] [place] [address] [id number] [address] [place] [id number] 10 Sep, 2016 [facility] [place] [address] [id number] [address] [place] [id number] Sep, Controlled diabetes mellitus type 1 without complications E10.9 [facility] [place] [address] [id number] [address] [place] [phone] Sep, [facility] [address] [id number] [address] [place] [address] [id number] Aug, Dental caries K02.9 [facility] [address] [id number] [address] [place] [id number] Aug, Type 1 diabetes mellitus wit h diabetic polyneuropathy E10.42 [facility] [place] [address] [id number] [address] [place] [phone] Aug, [facility] [place] [address] [id number] [address] [place] [phone] Aug, [facility] [place] [address] [id number] [address] [place] [phone] Aug, [facility] [address] [id number] [address] [place] [id number] Jul, Type 1 diabetes mellitus wit h hyperglycemia E10.65 [facility] [address] [id number] [address] [place] [id number] Jul, 2016 Type 1 diabetes mellitus wit h hyperglycemia E10.65 ; Tooth pain K08.8 and Encounter for immunization Z23 [facility] [address] [id number] [address] [place] [address] [id number] 08 Jul, 2016 Dental examination Z01.20 [facility] [address] [id number] [address] [place] [id number] 08 Jul, 2016 [facility] [address] [id number] [address] [place] [phone] Jul, [facility] [address] [facility] [id number] [address] [place] [phone] Jul, [facility] [address] [id number] [address] [place] [address], [place] [address] Jun, [facility] [address] [id number] [address] [place] [address], [place] [address] May, [facility] [address] [id number] [address] [place] [address], [place] [address] Apr, [facility] [address] [id number] [address] [place] [address], [place] [address] Apr, [facility] [address] [id number] [address] [place] [address], [place] [address] Apr, [facility] [address] [id number] [address] [place] [address], [place] [address] March, [facility] [address] [id number] [address] [place] [address], [place] [address] March, [facility] [address] [id number] [address] [place] [address], [place] [address] Feb, [facility] [address] [id number] [address] [place] [address], [place] [address] Feb, [facility] [address] [id number] [address] [place] [address], [place] [address] Feb, Type 1 diabetes mellitus wit h hyperglycemia E10.65 [facility] [address] [id number] [address] [place] [address], [place] [address] Jan, [facility] [address] [id number] [address] [place] [address], [place] [address] Jan, [facility] [address] [id number] [address] [place] [address], [place] [address] Jan, [facility] [address] [id number] [address] [place] [address], [place] [address] Jan, [facility] [address] [id number] [address] [place] [address], [place] [address] Dec, [facility] [address] [id number] [address] [place] [id number] Nov, [facility] [place] [address] [facility] [id number] [address] [place] [phone] Nov, [facility] [place] [address] [facility] [id number] [address] [place] [phone] Oct, [facility] [place] [address] [facility] [id number] [address] [place] [id number] Oct, Type 1 diabetes mellitus wit h 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 ; Type 1 diabetes mellitus with hyperglycemia E10.65 ; Gastroparesis K31.84 and Esophageal stricture K22.2 [facility] [place] [address] [facility] [id number] [address] [place] [phone] Oct, [facility] [place] [address] [facility] [id number] [address] [place] [phone] Sep, [facility] [place] [address] [facility] [id number] [address] [place] [id number] Sep, Type 1 diabetes mellitus wit h other diabetic neurological complication E10.49 [facility] [place] [address] [facility] [facility] [id number] [address] [place] [id number] Aug, Encounter for immunization Z 23 [facility] [place] [address] [facility] [id number] [address] [place] [id number] 19 Aug, 2015 [facility] [place] [address] [facility] [id number] [address] [place] [id number] Aug, [facility] [place] [address] [facility] [id number] [address] [place] [id number] Jul, [facility] [place] [address] [facility] [id number] [address] [place] [phone] Jul, [facility] [place] [address] [facility] [id number] [address] [place] [phone] Jun, [facility] [place] [address] [facility] [id number] [address] [place] [phone] Jun, [facility] [address] [id number] [address] [place] [phone] Jun, [facility] [address] [id number] [address] [place] [phone] May, [facility] [address] [id number] [address] [place] [id number] May, [facility] [address] [id number] [address] [place] [id number] May, Diabetes type 1, controlled 250.01 [facility] [address] [id number] [address] [place] [phone] May, [facility] [place] [address] [id number] [address] [place] [id number] May, [facility] [address] [id number] [address] [place] [id number] Apr, Dental examination V72.2 [facility] [place] [address] [id number] [address] [place] [id number] Apr, [facility] [address] [id number] [address] [place] [phone] Apr, [facility] [address] [id number] [address] [place] [phone] Apr, [facility] [place] [address] [id number] [address] [place] [phone] Apr, [facility] [address] [id number] [address] [place] [id number] Apr, [facility] [address] [id number] [address] [place] [id number] Apr, Dental examination V72.2 [facility] [address] [id number] [address] [place] [id number] Apr, [facility] [place] [address] [id number] [address] [place] [phone] Apr, [facility] [address] [id number] [address] [place] [id number] March, Diabetes mellitus type 1 250 .01 [facility] [address] [id number] [address] [place] [address], [place] [address] March, [facility] [address] [id number] [address] [place] [address], [place] [address] 14 Feb, 2015 [facility] [address] [id number] [address] [place] [address], [place] [address] Feb, [facility] [address] [id number] [address] [place] [address], [place] [address] Jan, [facility] [address] [id number] [address] [place] [address], [place] [address] Jan, [facility] [address] [id number] [address] [place] [address], [place] [address] Jan, [facility] [address] [id number] [address] [place] [phone] Jan, [facility] [address] [id number] [address] [place] [address], [place] [address] Dec, [facility] [address] [id number] [address] [place] [phone] Dec, [facility] [address] [id number] [address] [place] [address], [place] [address] Nov, [facility] [address] [id number] [address] [place] [phone] Nov, [facility] [address] [id number] [address] [place] [address], [place] [address] Nov, [facility] [address] [id number] [address] [place] [address], [place] [address] Nov, [facility] [address] [id number] [address] [place] [address], [place] [address] Nov, [facility] [address] [id number] [address] [place] [address], [place] [address] 07 Nov, 2014 [facility] [address] [id number] [address] [place] [address], [place] [address] Nov, [facility] [address] [id number] [address] [place] [address], [place] [address] Oct, [facility] [address] [id number] [address] [place] [address], [place] [address] Oct, [facility] [address] [id number] [address] [place] [address], [place] [address] Sep, [facility] [address] [id number] [address] [place] [address], [place] [address] Aug, [facility] [address] [id number] [address] [place] [address], [place] [address] Aug, [facility] [address] [id number] [address] [place] [address], [place] [address] Aug, [facility] [address] [id number] [address] [place] [address], [place] [address] Aug, [facility] [address] [id number] [address] [place] [address], [place] [address] Aug, [facility] [address] [id number] [address] [place] [address], [place] [address] Aug, [facility] [address] [id number] [address] [place] [address], [place] [address] Aug, [facility] [address] [id number] [address] [place] [address], [place] [address] Aug, [facility] [address] [id number] [address] [place] [address], [place] [address] Aug, [facility] [address] [id number] [address] [place] [address], [place] [address] Aug, [facility] [address] [id number] [address] [place] [address], [place] [address] Aug, [facility] [address] [id number] [facility] [place] [address] Aug, [facility] [address] [id number] [address] [place] [address], [place] [address] Aug, [facility] [address] [id number] [address] [place] [address], [place] [address] Aug, [facility] [address] [id number] [address] [place] [address], [place] [address] Jul, [facility] [address] [id number] [address] [place] [address], [place] [address] Jul, [facility] [address] [id number] [address] [place] [address], [place] [address] Jul, [facility] [address] [id number] [address] [place] [address], [place] [address] Jul, [facility] [address] [id number] [address] [place] [address], [place] [address] Jun, [facility] [address] [id number] [address] [place] [address], [place] [address] Jun, [facility] [address] [id number] [address] [place] [address], [place] [address] Jun, [facility] [address] [id number] [address] [place] [address], [place] [address] Jun, [facility] [address] [id number] [address] [place] [address], [place] [address] May, [facility] [address] [id number] [address] [place] [address], [place] [address] May, [facility] [address] [id number] [address] [place] [address], [place] [address] May, [facility] [address] [id number] [address] [place] [address], [place] [address] May, [facility] [address] [id number] [address] [place] [address], [place] [address] May, [facility] [address] [id number] [facility] [place] [address] May, 2013 [facility] [address] [id number] [address] [place] [address], [place] [address] May, [facility] [address] [id number] [address] [place] [address], [place] [address] May, 2013 [facility] [address] [id number] [address] [place] [address], [place] [address] May, 2013 [facility] [address] [id number] [address] [place] [address], [place] [address] May, [facility] [address] [id number] [address] [place] [address], [place] [address] May, [facility] [address] [id number] [address] [place] [address], [place] [address] May, [facility] [address] [id number] [address] [place] [address], [place] [address] May, [facility] [address] [id number] [address] [place] [address], [place] [address] Apr, [facility] [address] [id number] [address] [place] [address], [place] [address] Apr, [facility] [address] [id number] [address] [place] [address], [place] [address] Apr, [facility] [address] [id number] [address] [place] [address], [place] [address] Apr, [facility] [address] [id number] [address] [place] [address], [place] [address] Apr, [facility] [address] [id number] [address] [place] [address], [place] [address] Apr, [facility] [address] [id number] [address] [place] [address], [place] [address] Apr, [facility] [address] [id number] [facility] [place] [address] Apr, [facility] [address] [id number] [address] [place] [address], [place] [address] Apr, [facility] [address] [id number] [address] [place] [address], [place] [address] Apr, [facility] [address] [id number] [address] [place] [address], [place] [address] Apr, [facility] [address] [id number] [address] [place] [address], [place] [address] Apr, [facility] [address] [id number] [address] [place] [address], [place] [address] Apr, [facility] [address] [id number] [address] [place] [address], [place] [address] Apr, [facility] [address] [id number] [address] [place] [address], [place] [address] March, [facility] [address] [id number] [address] [place] [address], [place] [address] March, [facility] [address] [id number] [address] [place] [address], [place] [address] March, [facility] [address] [id number] [address] [place] [address], [place] [address] March, [facility] [address] [id number] [address] [place] [address], [place] [address] March, [facility] [address] [id number] [address] [place] [address], [place] [address] March, [facility] [address] [id number] [address] [place] [address], [place] [address] March, [facility] [address] [id number] [address] [place] [address], [place] [address] March, [facility] [address] [id number] [address] [place] [address], [place] [address] March, [facility] [address] [id number] [address] [place] [address], [place] [address] March, [facility] [address] [id number] [address] [place] [address], [place] [address] Feb, [facility] [address] [id number] [address] [place] [address], [place] [address] Feb, [facility] [address] [id number] [address] [place] [address], [place] [address] Feb, [facility] [address] [id number] [address] [place] [address], [place] [address] Feb, [facility] [address] [id number] [address] [place] [address], [place] [address] Feb, [facility] [address] [id number] [address] [place] [address], [place] [address] Feb, [facility] [address] [id number] [address] [place] [address], [place] [address] Feb, [facility] [address] [id number] [address] [place] [address], [place] [address] Feb, [facility] [address] [id number] [address] [place] [address], [place] [address] Jan, [facility] [address] [id number] [address] [place] [address], [place] [address] Jan, [facility] [address] [id number] [address] [place] [address], [place] [address] Jan, [facility] [address] [id number] [address] [place] [address], [place] [address] Jan, [facility] [address] [id number] [address] [place] [address], [place] [address] Jan, [facility] [address] [id number] [address] [place] [address], [place] [address] Jan, [facility] [address] [id number] [address] [place] [address], [place] [address] Jan, [facility] [address] [id number] [address] [place] [address], [place] [address] Jan, [facility] [address] [id number] [address] [place] [address], [place] [address] Jan, [facility] [address] [id number] [address] [place] [address], [place] [address] Jan, [facility] [address] [id number] [address] [place] [address], [place] [address] Dec, [facility] [address] [id number] [address] [place] [address], [place] [address] Dec, [facility] [address] [id number] [address] [place] [address], [place] [address] Nov, [facility] [address] [id number] [address] [place] [address], [place] [address] Nov, [facility] [address] [id number] [address] [place] [address], [place] [address] Nov, [facility] [address] [id number] [address] [place] [address], [place] [address] Nov, [facility] [address] [id number] [address] [place] [address], [place] [address] Nov, [facility] [address] [id number] [address] [place] [address], [place] [address] Nov, [facility] [address] [id number] [address] [place] [address], [place] [address] Nov, [facility] [address] [id number] [address] [place] [address], [place] [address] Nov, [facility] [address] [id number] [address] [place] [address], [place] [address] Oct, [facility] [address] [id number] [address] [place] [address], [place] [address] Oct, [facility] [address] [id number] [address] [place] [address], [place] [address] Oct, [facility] [address] [id number] [address] [place] [address], [place] [address] Oct, [facility] [address] [id number] [address] [place] [address], [place] [address] Oct, [facility] [address] [id number] [address] [place] [address], [place] [address] Oct, [facility] [address] [id number] [address] [place] [address], [place] [address] Sep, [facility] [address] [id number] [address] [place] [address], [place] [address] Sep, [facility] [address] [id number] [address] [place] [address], [place] [address] Sep, [facility] [address] [id number] [address] [place] [address], [place] [address] Sep, [facility] [address] [id number] [address] [place] [address], [place] [address] Sep, [facility] [address] [id number] [address] [place] [address], [place] [address] Aug, [facility] [address] [id number] [address] [place] [address], [place] [address] Aug, [facility] [address] [id number] [address] [place] [address], [place] [address] Aug, [facility] [address] [id number] [address] [place] [address], [place] [address] Aug, [facility] [address] [id number] [address] [place] [address], [place] [address] Aug, [facility] [address] [id number] [address] [place] [address], [place] [address] Aug, [facility] [address] [id number] [address] [place] [address], [place] [address] Jul, [facility] [address] [id number] [address] [place] [address], [place] [address] Jul, [facility] [address] [id number] [address] [place] [address], [place] [address] Jul, [facility] [address] [id number] [address] [place] [address], [place] [address] Jun, [facility] [address] [id number] [address] [place] [address], [place] [address] Jun, [facility] [address] [id number] [address] [place] [address], [place] [address] May, [facility] [address] [id number] [address] [place] [address], [place] [address] May, [facility] [address] [id number] [address] [place] [address], [place] [address] Apr, [facility] [address] [id number] [address] [place] [address], [place] [address] Apr, [facility] [address] [id number] [address] [place] [address], [place] [address] Apr, [facility] [address] [id number] [address] [place] [address], [place] [address] March, [facility] [address] [id number] [address] [place] [address], [place] [address] Feb, [facility] [address] [id number] [address] [place] [address], [place] [address] Feb, [facility] [address] [id number] [address] [place] [address], [place] [address] Jan, [facility] [address] [id number] [address] [place] [address], [place] [address] Jan, [facility] [address] [id number] [address] [place] [address], [place] [address] Jan, [facility] [address] [id number] [address] [place] [address], [place] [address] 08 Jan, 2013 [facility] [address] [id number] [address] [place] [address], [place] [address] Jan, [facility] [address] [id number] [address] [place] [address], [place] [address] Dec, [facility] [address] [id number] [address] [place] [address], [place] [address] Dec, [facility] [address] [id number] [address] [place] [address], [place] [address] Dec, [facility] [address] [id number] [address] [place] [address], [place] [address] Dec, [facility] [address] [id number] [address] [place] [address], [place] [address] Dec, [facility] [address] [id number] [address] [place] [address], [place] [address] Dec, [facility] [place] [id number] Nov, 2012 [facility] [address] [id number] [address] [place] [address], [place] [address] Nov, [facility] [address] [id number] [address] [place] [address], [place] [address] Nov, [facility] [address] [id number] [address] [place] [address], [place] [address] Nov, [facility] [address] [id number] [address] [place] [address], [place] [address] Nov, [facility] [address] [id number] [address] [place] [address], [place] [address] Oct, [facility] [address] [id number] [address] [place] [address], [place] [address] Oct, [facility] [address] [id number] [address] [place] [address], [place] [address] Oct, [facility] [address] [id number] [address] [place] [address], [place] [address] 18 Oct, 2012 [facility] [address] [id number] [address] [place] [address], [place] [address] Oct, [facility] [address] [id number] [address] [place] [address], [place] [address] Oct, [facility] [address] [id number] [address] [place] [address], [place] [address] Oct, [facility] [address] [id number] [address] [place] [address], [place] [address] Oct, [facility] [address] [id number] [address] [place] [address], [place] [address] Sep, [facility] [address] [id number] [address] [place] [address], [place] [address] Sep, [facility] [address] [id number] [address] [place] [address], [place] [address] Sep, [facility] [address] [id number] [address] [place] [address], [place] [address] Sep, [facility] [address] [id number] [address] [place] [address], [place] [address] Sep, [facility] [address] [id number] [address] [place] [address], [place] [address] Sep, [facility] [address] [id number] [address] [place] [address], [place] [address] Sep, [facility] [address] [id number] [address] [place] [address], [place] [address] Sep, [facility] [address] [id number] [address] [place] [address], [place] [address] Sep, [facility] [address] [id number] [address] [place] [address], [place] [address] Sep, [facility] [address] [id number] [address] [place] [address] Sep, [facility] [place] [address] [facility] [id number] [address] [place] [address] Sep, [facility] [place] [address] [facility] [id number] [address] [place] [address] Sep, [facility] [place] [address] [facility] [id number] [address] [place] [address] Sep, [facility] [place] [address] [facility] [id number] [address] [place] [id number] Sep, [facility] [place] [address] [facility] [id number] [address] [place] [id number] Sep, IMMUNIZATIONS No Known Immunizations SOCIAL HISTORY [...]
--- OUTSIDE RECORDS SUMMARY | 2020-04-17 21:34 | XMS REPORT ---
Author Author Curt PATIÑO Organization [facility] Address [address] [place] [address] Care Team Providers Care Infection Preventionist Name Role Phone BISMARK PATIÑO Unavailable PROBLEMS Type Condition ICD9-CM Code EMO87-PD Code Onset Dates Condition S tatus SNOMED Code Problem Hypertension, essential I10 Active 13471268 Problem Gastroparesis K31.84 Active 829076 006 Problem Type 1 diabetes mellitus with other diab etic neurological complication E10.49 Active 12662588 Problem Controlled diabetes mellitus type 1 without complications E10.9 Active 72653317 Problem Mood disorder F39 Active 199737 05 Problem Other chronic pain G89.29 Active 8 0034351 Problem 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 Active 07761215 Problem Type 1 diabetes mellitus with hyperglycemia E10.65 Active [id number] Problem Type 1 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 Active 98628905 Problem Chronic fatigue R53.82 Active 8422 9001 ALLERGIES No Information ENCOUNTERS Encounter Location Date Diagnosis [facility] [address] [facility] [id number] [address] [place] [phone] May, [facility] [address] [facility] [id number] [address] [place] [id number] Apr, [facility] [address] [facility] [id number] [address] [place] [phone] Apr, Type 1 diabetes mellitus wit h other diabetic neurological complication E10.49 [facility] [address] [facility] [id number] [address] [place] [phone] Apr, Encounter for Medicare annua l wellness exam Z00.00 [facility] [address] [facility] [id number] [address] [place] [phone] March, Encounter for Medicare annua l wellness exam Z00.00 and Type 1 diabetes mellitus with other diabetic neurological complication E10.49 [facility] [address] [facility] [id number] [address] [place] [id number] 10 Feb, 2019 Type 1 diabetes mellitus wit h other diabetic neurological complication E10.49 [facility] [address] [facility] [id number] [address] [place] [id number] 04 Feb, 2019 Encounter for Medicare jyothi brewer wellness exam Z00.00 ; Mood disorder F39 ; Type 1 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 ; Hypertension, essential I10 and Chronic fatigue R53.82 [facility] [address] [facility] [id number] [address] [place] [id number] 13 Jan, 2019 Type 1 diabetes mellitus wit h other diabetic neurological complication E10.49 [facility] [address] [facility] [id number] [address] [place] [id number] 11 Jan, 2019 [facility] [address] [facility] [id number] [address] [place] [id number] 07 Jan, 2019 Other chronic pain G89.29 [facility] [address] [facility] [id number] [address] [place] [id number] 11 Dec, 2018 [facility] [address] [facility] [id number] [address] [place] [id number] 08 Dec, 2018 Type 1 diabetes mellitus wit h other diabetic neurological complication E10.49 [facility] [address] [facility] [id number] [address] [place] [phone] 05 Dec, 2018 Other chronic pain G89.29 [facility] [address] [facility] [id number] [address] [place] [phone] Nov, [facility] [address] [id number] [address] [place] [id number] Nov, Caries K02.9 [facility] [address] [facility] [id number] [address] [place] [id number] 15 Nov, 2018 Type 1 diabetes mellitus wit h other diabetic neurological complication E10.49 [facility] [address] [facility] [id number] [address] [place] [id number] Nov, Controlled diabetes mellitus type 1 without complications E10.9 ; Other chronic pain G89.29 and Pain in left knee M25.562 [facility] [address] [id number] [address] [place] [address] [id number] 18 Oct, 2018 Dental examination Z01.20 [facility] [address] [id number] [address] [place] [id number] 14 Oct, 2018 Cutaneous abscess of unspeci fied foot L02.619 and Cellulitis of unspecified part of limb L03.119 [facility] [address] [id number] [address] [place] [phone] 11 Oct, 2018 [facility] [address] [id number] [address] [place] [id number] 10 Oct, 2018 Type 1 diabetes mellitus wit h other diabetic neurological complication E10.49 [facility] [address] [id number] [address] [place] [address] [id number] 06 Oct, 2018 Dental examination Z01.20 an d Caries K02.9 [facility] [address] [id number] [address] [place] [id number] 04 Oct, 2018 Cutaneous abscess of left fo ot L02.612 and Cellulitis of left lower limb L03.116 [facility] [address] [facility] [id number] [address] [place] [id number] 04 Oct, 2018 Dental examination Z01.20 an d Pain, dental K08.89 [facility] [address] [id number] [address] [place] [address] Sep, Left foot pain M79.672 and L eft anterior knee pain M25.562 [facility] [address] [id number] [address] [place] [id number] Sep, Type 1 diabetes mellitus wit h other diabetic neurological complication E10.49 [facility] [address] [id number] [address] [place] [phone] Sep, [facility] [address] [facility] [id number] [address] [place] [id number] 11 Aug, 2018 Type 1 diabetes mellitus wit h other diabetic neurological complication E10.49 [facility] [address] [id number] [address] [place] [id number] 10 Aug, 2018 Encounter for immunization Z 23 [facility] [address] [id number] [address] [place] [phone] 05 Aug, 2018 Type 1 diabetes mellitus wit h hyperglycemia E10.65 [facility] [address] [id number] [address] [place] [id number] 21 Jul, 2018 Type 1 diabetes mellitus wit h hyperglycemia E10.65 [facility] [address] [id number] [address] [place] [id number] 19 Jul, 2018 [facility] [address] [id number] [address] [place] [id number] 18 Jul, 2018 [facility] [address] [facility] [id number] [address] [place] [id number] 17 Jul, 2018 Type 1 diabetes mellitus wit h other diabetic neurological complication E10.49 [facility] [address] [id number] [address] [place] [id number] Jul, Type 1 diabetes mellitus wit h other diabetic neurological complication E10.49 and Mood disorder F39 [facility] [address] [id number] [address] [place] [id number] Jun, [facility] [address] [facility] [id number] [address] [place] [id number] Jun, Type 1 diabetes mellitus wit h other diabetic neurological complication E10.49 and Chronic fatigue R53.82 [facility] [address] [id number] [address] [place] [id number] May, Type 1 diabetes mellitus wit h other diabetic neurological complication E10.49 [facility] [address] [id number] [address] [place] [phone] May, [facility] [address] [facility] [id number] [address] [place] [id number] May, [facility] [address] [facility] [id number] [address] [place] [phone] Apr, [facility] [address] [facility] [id number] [address] [place] [id number] Apr, Type 1 diabetes mellitus wit h other diabetic neurological complication E10.49 [facility] [address] [facility] [id number] [address] [place] [phone] March, [facility] [address] [facility] [id number] [address] [place] [phone] Feb, [facility] [address] [facility] [id number] [address] [place] [id number] Feb, Type 1 diabetes mellitus wit h other diabetic neurological complication E10.49 ; Tobacco abuse Z72.0 and Tobacco abuse counseling Z71.6 [facility] [address] [facility] [id number] [address] [place] [id number] Jan, Type 1 diabetes mellitus wit h hyperglycemia E10.65 [facility] [address] [facility] [id number] [address] [place] [phone] Jan, [facility] [address] [facility] [id number] [address] [place] [id number] Dec, Tobacco abuse Z72.0 [facility] [address] [facility] [id number] [address] [place] [id number] Dec, Type 1 diabetes mellitus wit h hyperglycemia E10.65 [facility] [address] [facility] [id number] [address] [place] [id number] Dec, Type 1 diabetes mellitus wit h hyperglycemia E10.65 ; Tobacco abuse Z72.0 and Tobacco abuse counseling Z71.6 [facility] [address] [facility] [id number] [address] [place] [phone] Nov, Type 1 diabetes mellitus wit h hyperglycemia E10.65 [facility] [address] [facility] [id number] [address] [place] [id number] Oct, Type 1 diabetes mellitus wit h hyperglycemia E10.65 [facility] [address] [facility] [id number] [address] [place] [id number] Oct, Type 1 diabetes mellitus wit h hyperglycemia E10.65 [facility] [address] [facility] [id number] [address] [place] [id number] Sep, Type 1 diabetes mellitus wit h hyperglycemia E10.65 [facility] [address] [facility] [id number] [address] [place] [id number] Aug, Type 1 diabetes mellitus wit h hyperglycemia E10.65 [facility] [address] [facility] [id number] [address] [place] [phone] Aug, [facility] [address] [facility] [id number] [address] [place] [phone] Aug, Type 1 diabetes mellitus wit h hyperglycemia E10.65 [facility] [address] [facility] [id number] [address] [place] [id number] Aug, Encounter for immunization Z 23 [facility] [address] [facility] [id number] [address] [place] [place] [phone] Aug, Type 1 diabetes mellitus wit h hyperglycemia E10.65 [facility] [address] [facility] [id number] [address] [place] [id number] Jul, Type 1 diabetes mellitus wit h hyperglycemia E10.65 [facility] [address] [facility] [id number] [address] [place] [id number] Jul, Type 1 diabetes mellitus wit h hyperglycemia E10.65 [facility] [address] [facility] [id number] [address] [place] [id number] May, Type 1 diabetes mellitus wit h hyperglycemia E10.65 [facility] [address] [facility] [id number] [address] [place] [id number] May, [facility] [address] [facility] [id number] [address] [place] [id number] Apr, [facility] [address] [facility] [id number] [address] [place] [id number] Apr, Type 1 diabetes mellitus wit h hyperglycemia E10.65 [facility] [address] [id number] [address] [place] [phone] March, [facility] [address] [id number] [address] [place] [phone] March, [facility] [address] [facility] [id number] [address] [place] [id number] Jan, [facility] [address] [id number] [address] [place] [phone] Jan, [facility] [address] [facility] [id number] [address] [place] [place] [id number] Jan, Type 1 diabetes mellitus wit h diabetic polyneuropathy E10.42 [facility] [address] [id number] [address] [place] [id number] Jan, Type 1 diabetes mellitus wit h hyperglycemia E10.65 ; Excessive cerumen in both ear canals H61.23 and Controlled diabetes mellitus type 1 without complications E10.9 [facility] [address] [id number] [address] [place] [id number] Dec, [facility] [address] [id number] [address] [place] [phone] Dec, [facility] [address] [facility] [id number] [address] [place] [phone] Dec, [facility] [address] [id number] [address] [place] [place] [id number] Dec, [facility] [address] [id number] [address] [place] [place] [phone] Nov, [facility] [address] [id number] [address] [place] [address] Nov, [facility] [address] [facility] [id number] [address] [place] [id number] Oct, Type 1 diabetes mellitus wit h hyperglycemia E10.65 [facility] [address] [id number] [address] [place] [phone] Sep, [facility] [address] [id number] [address] [place] [id number] Sep, [facility] [address] [id number] [address] [place] [place] [id number] Sep, Controlled diabetes mellitus type 1 without complications E10.9 [facility] [address] [id number] [address] [place] [phone] Sep, [facility] [address] [id number] [address] [place] [id number] Aug, Dental caries K02.9 [facility] [address] [id number] [address] [place] [address] Aug, Type 1 diabetes mellitus wit h diabetic polyneuropathy E10.42 [facility] [address] [facility] [id number] [address] [place] [address] Aug, [facility] [address] [id number] [address] [place] [place] [id number] Aug, [facility] [address] [id number] [address] [place] [place] [id number] Aug, [facility] [address] [id number] [address] [place] [address] Jul, Type 1 diabetes mellitus wit h hyperglycemia E10.65 [facility] [address] [id number] [address] [place] [id number] Jul, Type 1 diabetes mellitus wit h hyperglycemia E10.65 ; Tooth pain K08.8 and Encounter for immunization Z23 [facility] [address] [id number] [address] [place] [address] [id number] 08 Jul, 2016 Dental examination Z01.20 [facility] [address] [id number] [address] [place] [id number] 08 Jul, 2016 [facility] [address] [facility] [id number] [address] [place] [id number] 07 Jul, 2016 [facility] [address] [id number] [address] [place] [address], [place] [address] Jul, [facility] [address] [id number] [address] [place] [address], [place] [address] Jun, [facility] [address] [id number] [address] [place] [address], [place] [address] May, [facility] [address] [id number] [address] [place] [address], [place] [address] Apr, [facility] [address] [id number] [address] [place] [address], [place] [address] Apr, [facility] [address] [id number] [address] [place] [address], [place] [address] Apr, [facility] [address] [id number] [address] [place] [address], [place] [address] March, [facility] [address] [id number] [address] [place] [address], [place] [address] March, [facility] [address] [id number] [address] [place] [address], [place] [address] Feb, [facility] [address] [id number] [address] [place] [address], [place] [address] Feb, [facility] [address] [id number] [address] [place] [address], [place] [address] Feb, Type 1 diabetes mellitus wit h hyperglycemia E10.65 [facility] [address] [id number] [address] [place] [address], [place] [address] Jan, [facility] [address] [id number] [address] [place] [address], [place] [address] Jan, [facility] [address] [id number] [address] [place] [address], [place] [address] Jan, [facility] [address] [id number] [address] [place] [address], [place] [address] Jan, [facility] [address] [id number] [address] [place] [id number] 18 Dec, 2015 [facility] [address] [facility] [id number] [address] [place] [id number] Nov, [facility] [address] [facility] [id number] [address] [place] [id number] Nov, [facility] [address] [facility] [id number] [address] [place] [id number] Oct, [facility] [id number] [place] [id number] Oct, Type 1 diabetes mellitus wit h 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 ; Type 1 diabetes mellitus with hyperglycemia E10.65 ; Gastroparesis K31.84 and Esophageal stricture K22.2 [facility] [id number] [place] [address] Oct, [facility] [address] [id number] Sep, [facility] [address] [id number] Sep, Type 1 diabetes mellitus wit h other diabetic neurological complication E10.49 [facility] [address] [id number] [address] [place] [id number] 22 Aug, 2015 Encounter for immunization Z 23 [facility] [address] [facility] [id number] [address] [place] [id number] 19 Aug, 2015 [facility] [address] [id number] [address] [place] [id number] Aug, [facility] [address] [facility] [id number] [address] [place] [id number] Jul, [facility] [address] [id number] [address] [place] [id number] 14 Jul, 2015 [facility] [address] [id number] [address] [place] [id number] Jun, [facility] [address] [id number] [address] [place] [phone] Jun, [facility] [address] [id number] [address] [place] [id number] Jun, [facility] [address] [id number] [address] [place] [id number] May, [facility] [address] [id number] [address] [place] [id number] May, [facility] [address] [id number] [address] [place] [id number] May, Diabetes type 1, controlled 250.01 [facility] [address] [id number] [address] [place] [id number] May, [facility] [address] [id number] [address] [place] [address] May, [facility] [address] [id number] [address] [place] [address] [id number] Apr, Dental examination V72.2 [facility] [address] [id number] [address] [place] [id number] Apr, [facility] [address] [id number] [address] [place] [id number] Apr, [facility] [address] [id number] [address] [place] [id number] Apr, [facility] [address] [id number] [address] [place] [id number] Apr, [facility] [address] [id number] [address] [place] [id number] Apr, [facility] [address] [id number] [address] [place] [id number] Apr, Dental examination V72.2 [facility] [address] [id number] [address] [place] [id number] Apr, [facility] [address] [id number] [address] [place] [address], [place] [id number] Apr, [facility] [address] [id number] [address] [place] [id number] March, Diabetes mellitus type 1 250 .01 [facility] [address] [id number] [address] [place] [address], [place] [id number] March, [facility] [address] [id number] [address] [place] [id number] Feb, [facility] [address] [id number] [address] [place] [address], [place] [id number] Feb, [facility] [address] [id number] [address] [place] [address], [place] [id number] Jan, [facility] [address] [id number] [address] [place] [id number] Jan, [facility] [address] [id number] [address] [place] [id number] Jan, [facility] [address] [id number] [address] [place] [address], [place] [id number] Jan, [facility] [address] [id number] [address] [place] [id number] Dec, [facility] [address] [id number] [address] [place] [id number] Dec, [facility] [address] [id number] [address] [place] [id number] Nov, [facility] [address] [id number] [address] [place] [address], [place] [id number] Nov, [facility] [address] [id number] [address] [place] [id number] Nov, [facility] [address] [id number] [address] [place] [id number] Nov, [facility] [address] [id number] [address] [place] [id number] Nov, [facility] [address] [id number] [address] [place] [address], [place] [address] Nov, [facility] [address] [id number] [address] [place] [id number] Nov, [facility] [address] [id number] [address] [place] [address], [place] [address] Oct, [facility] [address] [id number] [address] [place] [id number] Oct, [facility] [address] [id number] [address] [place] [address], [place] [address] Sep, [facility] [address] [id number] [address] [place] [address], [place] [address] Aug, [facility] [address] [id number] [address] [place] [address], [place] [address] Aug, [facility] [address] [id number] [address] [place] [address], [place] [address] Aug, [facility] [address] [id number] [address] [place] [address], [place] [address] Aug, [facility] [address] [id number] [address] [place] [address], [place] [address] Aug, [facility] [address] [id number] [address] [place] [address], [place] [address] Aug, [facility] [address] [id number] [address] [place] [id number] Aug, [facility] [address] [id number] [address] [place] [address], [place] [address] Aug, [facility] [address] [id number] [address] [place] [id number] Aug, [facility] [address] [id number] [address] [place] [address], [place] [address] Aug, [facility] [address] [id number] [facility] [place] [address] Aug, [facility] [address] [id number] [address] [place] [address], [place] [address] Aug, [facility] [address] [id number] [address] [place] [address], [place] [address] Aug, [facility] [address] [id number] [address] [place] [address], [place] [address] Aug, [facility] [address] [id number] [address] [place] [address], [place] [address] Jul, [facility] [address] [id number] [address] [place] [address], [place] [address] Jul, [facility] [address] [id number] [address] [place] [address], [place] [address] Jul, [facility] [address] [id number] [address] [place] [address], [place] [address] Jul, [facility] [address] [id number] [address] [place] [address], [place] [address] Jun, [facility] [address] [id number] [address] [place] [address], [place] [address] Jun, [facility] [address] [id number] [address] [place] [address], [place] [address] Jun, [facility] [address] [id number] [address] [place] [address], [place] [address] Jun, [facility] [address] [id number] [address] [place] [address], [place] [address] May, [facility] [address] [id number] [address] [place] [address], [place] [address] May, [facility] [address] [id number] [address] [place] [address], [place] [address] May, [facility] [address] [id number] [address] [place] [address], [place] [address] May, [facility] [address] [id number] [facility] [place] [address] May, 2013 [facility] [address] [id number] [facility] [place] [address] May, [facility] [address] [id number] [facility] [place] [address] May, 2013 [facility] [address] [id number] [address] [place] [address], [place] [address] May, [facility] [address] [id number] [address] [place] [address], [place] [address] May, [facility] [address] [id number] [address] [place] [address], [place] [address] May, [facility] [address] [id number] [address] [place] [address], [place] [address] May, [facility] [address] [id number] [address] [place] [address], [place] [address] May, [facility] [address] [id number] [address] [place] [address], [place] [address] May, [facility] [address] [id number] [address] [place] [address], [place] [address] Apr, [facility] [address] [id number] [address] [place] [address], [place] [address] Apr, [facility] [address] [id number] [address] [place] [address], [place] [address] Apr, [facility] [address] [id number] [address] [place] [address], [place] [address] Apr, [facility] [address] [id number] [address] [place] [address], [place] [address] Apr, [facility] [address] [id number] [address] [place] [address], [place] [address] Apr, [facility] [address] [id number] [address] [place] [address], [place] [address] 04 Apr, 2014 [facility] [address] [id number] [address] [place] [address], [place] [address] Apr, [facility] [address] [id number] [address] [place] [address], [place] [address] Apr, [facility] [address] [id number] [address] [place] [address], [place] [address] Apr, [facility] [address] [id number] [address] [place] [address], [place] [address] Apr, [facility] [address] [id number] [address] [place] [address], [place] [address] Apr, [facility] [address] [id number] [address] [place] [address], [place] [address] Apr, [facility] [address] [id number] [address] [place] [address], [place] [address] Apr, [facility] [address] [id number] [address] [place] [address], [place] [address] March, [facility] [address] [id number] [address] [place] [address], [place] [address] March, [facility] [address] [id number] [address] [place] [address], [place] [address] March, [facility] [address] [id number] [address] [place] [address], [place] [address] March, [facility] [address] [id number] [address] [place] [address], [place] [address] March, [facility] [address] [id number] [address] [place] [address], [place] [address] March, [facility] [address] [id number] [address] [place] [address], [place] [address] March, [facility] [address] [id number] [address] [place] [address], [place] [address] March, [facility] [address] [id number] [facility] [place] [address] March, [facility] [address] [id number] [facility] [place] [address] March, [facility] [address] [id number] [facility] [place] [address] Feb, [facility] [address] [id number] [address] [place] [address], [place] [address] Feb, [facility] [address] [id number] [address] [place] [address], [place] [address] Feb, [facility] [address] [id number] [address] [place] [address], [place] [address] Feb, [facility] [address] [id number] [address] [place] [address], [place] [address] Feb, [facility] [address] [id number] [address] [place] [address], [place] [address] Feb, [facility] [address] [id number] [address] [place] [address], [place] [address] Feb, [facility] [address] [id number] [address] [place] [address], [place] [address] Feb, [facility] [address] [id number] [address] [place] [address], [place] [address] Jan, [facility] [address] [id number] [address] [place] [address], [place] [address] Jan, [facility] [address] [id number] [address] [place] [address], [place] [address] Jan, [facility] [address] [id number] [address] [place] [address], [place] [address] Jan, [facility] [address] [id number] [address] [place] [address], [place] [address] Jan, [facility] [address] [id number] [address] [place] [address], [place] [address] Jan, [facility] [address] [id number] [facility] [place] [address] Jan, [facility] [address] [id number] [address] [place] [address], [place] [address] Jan, [facility] [address] [id number] [address] [place] [address], [place] [address] Jan, [facility] [address] [id number] [address] [place] [address], [place] [address] Jan, [facility] [address] [id number] [address] [place] [address], [place] [address] Dec, [facility] [address] [id number] [address] [place] [address], [place] [address] Dec, [facility] [address] [id number] [address] [place] [address], [place] [address] Nov, [facility] [address] [id number] [address] [place] [address], [place] [address] Nov, [facility] [address] [id number] [address] [place] [address], [place] [address] Nov, [facility] [address] [id number] [address] [place] [address], [place] [address] Nov, [facility] [address] [id number] [address] [place] [address], [place] [address] Nov, [facility] [address] [id number] [address] [place] [address], [place] [address] Nov, [facility] [address] [id number] [address] [place] [address], [place] [address] Nov, [facility] [address] [id number] [address] [place] [address], [place] [address] Nov, [facility] [address] [id number] [address] [place] [address], [place] [address] Oct, [facility] [address] [id number] [address] [place] [address], [place] [address] Oct, [facility] [address] [id number] [address] [place] [address], [place] [address] Oct, [facility] [address] [id number] [address] [place] [address], [place] [address] Oct, [facility] [address] [id number] [address] [place] [address], [place] [address] Oct, [facility] [address] [id number] [address] [place] [address], [place] [address] Oct, [facility] [address] [id number] [address] [place] [address], [place] [address] Sep, [facility] [address] [id number] [address] [place] [address], [place] [address] Sep, [facility] [address] [id number] [address] [place] [address], [place] [address] Sep, [facility] [address] [id number] [address] [place] [address], [place] [address] Sep, [facility] [address] [id number] [address] [place] [address], [place] [address] Sep, [facility] [address] [id number] [address] [place] [address], [place] [address] Aug, [facility] [address] [id number] [address] [place] [address], [place] [address] Aug, [facility] [address] [id number] [address] [place] [address], [place] [address] Aug, [facility] [address] [id number] [address] [place] [address], [place] [address] Aug, [facility] [address] [id number] [address] [place] [address], [place] [address] Aug, [facility] [address] [id number] [address] [place] [address], [place] [address] Aug, [facility] [address] [id number] [address] [place] [address], [place] [address] Jul, [facility] [address] [id number] [address] [place] [address], [place] [address] Jul, [facility] [address] [id number] [address] [place] [address], [place] [address] Jul, [facility] [address] [id number] [address] [place] [address], [place] [address] Jun, [facility] [address] [id number] [address] [place] [address], [place] [address] Jun, [facility] [address] [id number] [address] [place] [address], [place] [address] May, [facility] [address] [id number] [address] [place] [address], [place] [address] May, [facility] [address] [id number] [address] [place] [address], [place] [address] Apr, [facility] [address] [id number] [address] [place] [address], [place] [address] Apr, [facility] [address] [id number] [address] [place] [address], [place] [address] Apr, [facility] [address] [id number] [address] [place] [address], [place] [address] March, [facility] [address] [id number] [address] [place] [address], [place] [address] Feb, [facility] [address] [id number] [address] [place] [address], [place] [address] Feb, [facility] [address] [id number] [address] [place] [address], [place] [address] Jan, [facility] [address] [id number] [address] [place] [address], [place] [address] Jan, [facility] [address] [id number] [address] [place] [id number] 13 Jan, 2013 [facility] [address] [id number] [address] [place] [address], [place] [address] Jan, [facility] [address] [id number] [address] [place] [address], [place] [address] Jan, [facility] [address] [id number] [address] [place] [address], [place] [address] Dec, [facility] [address] [id number] [address] [place] [address], [place] [address] Dec, [facility] [address] [id number] [address] [place] [address], [place] [address] Dec, [facility] [address] [id number] [address] [place] [address], [place] [address] Dec, [facility] [address] [id number] [address] [place] [address], [place] [address] Dec, [facility] [address] [id number] [address] [place] [address], [place] [address] Dec, [facility] [address] [place] [id number] Nov, [facility] [address] [id number] [address] [place] [address], [place] [address] Nov, [facility] [address] [id number] [address] [place] [address], [place] [address] Nov, [facility] [address] [id number] [address] [place] [address], [place] [address] Nov, [facility] [address] [id number] [address] [place] [address], [place] [address] Nov, [facility] [address] [id number] [address] [place] [address], [place] [address] Oct, [facility] [address] [id number] [address] [place] [address], [place] [address] Oct, [facility] [address] [id number] [address] [place] [address], [place] [address] 18 Oct, 2012 [facility] [address] [id number] [address] [place] [address], [place] [address] 18 Oct, 2012 [facility] [address] [id number] [address] [place] [address], [place] [address] Oct, [facility] [address] [id number] [address] [place] [address], [place] [address] Oct, [facility] [address] [id number] [address] [place] [address], [place] [address] Oct, [facility] [address] [id number] [address] [place] [address], [place] [address] Oct, [facility] [address] [id number] [address] [place] [address], [place] [address] Sep, [facility] [address] [id number] [address] [place] [address], [place] [address] Sep, [facility] [address] [id number] [address] [place] [address], [place] [address] Sep, [facility] [address] [id number] [address] [place] [address], [place] [address] Sep, [facility] [address] [id number] [address] [place] [address], [place] [address] 14 Sep, 2012 [facility] [address] [id number] [address] [place] [address], [place] [address] 14 Sep, 2012 [facility] [address] [id number] [address] [place] [address], [place] [address] 12 Sep, 2012 [facility] [address] [id number] [address] [place] [address], [place] [address] 12 Sep, 2012 [facility] [address] [id number] [address] [place] [address], [place] [address] 05 Sep, 2012 [facility] [address] [id number] [address] [place] [address], [place] [address] Sep, [facility] [address] [facility] [id number] [address] [place] [id number] Sep, [facility] [address] [facility] [id number] [address] [place] [id number] Sep, [facility] [address] [facility] [id number] [address] [place] [id number] Sep, [facility] [address] [facility] [id number] [address] [place] [id number] Sep, [facility] [address] [facility] [id number] [address] [place] [id number] Sep, [facility] [address] [facility] [id number] [address] [place] [id number] Sep, IMMUNIZATIONS No Known Immunizations SOCIAL HISTORY [...]
--- OUTSIDE RECORDS SUMMARY | 2020-04-17 21:35 | XMS REPORT ---
Author Author uCrt Barr Doctor Organization [facility] Address Unknown Phone Unavailable Care Team Providers Care Junior Assistant Manager Name Role Phone Migration, Doctor Unavailable Unavailable PROBLEMS Type Condition ICD9-CM Code [id number] Code Onset Dates Condition S tatus SNOMED Code Problem Hypertension, essential I10 Active 50178755 Problem Gastroparesis K31.84 Active 027566 006 Problem Type 1 diabetes mellitus with other diab etic neurological complication E10.49 Active 68982323 Problem Controlled diabetes mellitus type 1 without complications E10.9 Active 99677202 Problem Mood disorder F39 Active 552043 05 Problem Other chronic pain G89.29 Active 8 3032033 Problem 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 Active 34839711 Problem Type 1 diabetes mellitus with hyperglycemia E10.65 Active [id number] Problem Type 1 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 Active 86291853 Problem Chronic fatigue R53.82 Active 8422 9001 ALLERGIES No Information ENCOUNTERS Encounter Location Date Diagnosis [place] [id number] [place] [id number] [address] [place] [id number] 10 Feb, 2019 Type 1 diabetes mellitus wit h other diabetic neurological complication E10.49 [facility] [address] [place] [place] [id number] [address] [place] [id number] 04 Feb, 2019 Encounter for Medicare annua l wellness exam Z00.00 ; Mood disorder F39 ; Type 1 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 ; Hypertension, essential I10 and Chronic fatigue R53.82 [facility] [address] [place] [id number] [address] [place] [id number] 13 Jan, 2019 Type 1 diabetes mellitus wit h other diabetic neurological complication E10.49 [facility] [address] [place] [id number] [address] [place] [id number] Jan, [facility] [address] [place] [id number] [address] [place] [id number] Jan, Other chronic pain G89.29 [facility] [address] [id number] [address] [place] [id number] 11 Dec, 2018 [facility] [address] [id number] [address] [place] [id number] 08 Dec, 2018 Type 1 diabetes mellitus wit h other diabetic neurological complication E10.49 [facility] [address] [id number] [address] [place] [id number] 05 Dec, 2018 Other chronic pain G89.29 [facility] [address] [id number] [address] [place] [id number] Nov, [facility] [address] [id number] [place] [address] [id number] Nov, Caries K02.9 [facility] [address] [id number] [address] [place] [id number] Nov, Type 1 diabetes mellitus wit h other diabetic neurological complication E10.49 [facility] [address] [id number] [address] [place] [id number] Nov, Controlled diabetes mellitus type 1 without complications E10.9 ; Other chronic pain G89.29 and Pain in left knee M25.562 [facility] [address] [id number] [address] [place] [id number] Oct, Dental examination Z01.20 [facility] [address] [id number] [address] [place] [id number] 14 Oct, 2018 Cutaneous abscess of unspeci fied foot L02.619 and Cellulitis of unspecified part of limb L03.119 [facility] [address] [id number] [address] [place] [id number] Oct, [facility] [address] [facility] [id number] [address] [place] [id number] Oct, Type 1 diabetes mellitus wit h other diabetic neurological complication E10.49 [facility] [address] [id number] [address] [place] [address] [id number] Oct, Dental examination Z01.20 an d Caries K02.9 [facility] [address] [facility] [id number] [address] [place] [id number] Oct, Cutaneous abscess of left fo ot L02.612 and Cellulitis of left lower limb L03.116 [facility] [address] [facility] [id number] [address] [place] [id number] Oct, Dental examination Z01.20 an d Pain, dental K08.89 [facility] [address] [facility] [id number] [address] [place] [id number] Sep, Left foot pain M79.672 and L eft anterior knee pain M25.562 [place] [address] [facility] [id number] [address] [place] [id number] Sep, Type 1 diabetes mellitus wit h other diabetic neurological complication E10.49 [place] [address] [place] [id number] [address] [place] [id number] Sep, [place] [address] [facility] [id number] [address] [place] [id number] 11 Aug, 2018 Type 1 diabetes mellitus wit h other diabetic neurological complication E10.49 [place] [address] [facility] [id number] [address] [place] [id number] 10 Aug, 2018 Encounter for immunization Z 23 [facility] [address] [facility] [id number] [address] [place] [id number] 05 Aug, 2018 Type 1 diabetes mellitus wit h hyperglycemia E10.65 [place] [address] [facility] [id number] [address] [place] [id number] Jul, Type 1 diabetes mellitus wit h hyperglycemia E10.65 [place] [address] [facility] [id number] [address] [place] [id number] 19 Jul, 2018 [place] [address] [facility] [id number] [address] [place] [id number] 18 Jul, 2018 [place] [address] [facility] [id number] [address] [place] [id number] Jul, Type 1 diabetes mellitus wit h other diabetic neurological complication E10.49 [facility] [address] [id number] [address] [place] [id number] Jul, Type 1 diabetes mellitus wit h other diabetic neurological complication E10.49 and Mood disorder F39 [facility] [address] [id number] [address] [place] [id number] Jun, [facility] [address] [id number] [address] [place] [id number] Jun, Type 1 diabetes mellitus wit h other diabetic neurological complication E10.49 and Chronic fatigue R53.82 [facility] [address] [id number] [address] [place] [id number] May, Type 1 diabetes mellitus wit h other diabetic neurological complication E10.49 [facility] [address] [id number] [address] [place] [id number] May, [facility] [address] [id number] [address] [place] [id number] May, [facility] [address] [id number] [address] [place] [id number] Apr, [facility] [address] [facility] [id number] [address] [place] [id number] Apr, Type 1 diabetes mellitus wit h other diabetic neurological complication E10.49 [facility] [address] [facility] [id number] [address] [place] [id number] March, [facility] [address] [id number] [address] [place] [id number] Feb, [facility] [address] [facility] [id number] [address] [place] [id number] Feb, Type 1 diabetes mellitus wit h other diabetic neurological complication E10.49 ; Tobacco abuse Z72.0 and Tobacco abuse counseling Z71.6 [facility] [address] [id number] [address] [place] [id number] Jan, Type 1 diabetes mellitus wit h hyperglycemia E10.65 [facility] [address] [facility] [id number] [address] [place] [id number] Jan, [facility] [address] [facility] [id number] [address] [place] [id number] Dec, Tobacco abuse Z72.0 [facility] [address] [facility] [id number] [address] [place] [id number] Dec, Type 1 diabetes mellitus wit h hyperglycemia E10.65 [facility] [address] [facility] [id number] [address] [place] [id number] Dec, Type 1 diabetes mellitus wit h hyperglycemia E10.65 ; Tobacco abuse Z72.0 and Tobacco abuse counseling Z71.6 [facility] [address] [facility] [id number] [address] [place] [id number] Nov, Type 1 diabetes mellitus wit h hyperglycemia E10.65 [facility] [address] [facility] [id number] [address] [place] [id number] Oct, Type 1 diabetes mellitus wit h hyperglycemia E10.65 [facility] [address] [facility] [id number] [address] [place] [id number] Oct, Type 1 diabetes mellitus wit h hyperglycemia E10.65 [facility] [address] [facility] [id number] [address] [place] [id number] Sep, Type 1 diabetes mellitus wit h hyperglycemia E10.65 [facility] [address] [facility] [id number] [address] [place] [id number] Aug, Type 1 diabetes mellitus wit h hyperglycemia E10.65 [facility] [address] [facility] [id number] [address] [place] [id number] Aug, [facility] [address] [facility] [id number] [address] [place] [id number] Aug, Type 1 diabetes mellitus wit h hyperglycemia E10.65 [facility] [address] [facility] [id number] [address] [place] [id number] Aug, Encounter for immunization Z 23 [facility] [address] [id number] [address] [place] [id number] Aug, Type 1 diabetes mellitus wit h hyperglycemia E10.65 [facility] [address] [id number] [address] [place] [id number] Jul, Type 1 diabetes mellitus wit h hyperglycemia E10.65 [facility] [address] [id number] [address] [place] [id number] Jul, Type 1 diabetes mellitus wit h hyperglycemia E10.65 [facility] [address] [id number] [address] [place] [id number] May, Type 1 diabetes mellitus wit h hyperglycemia E10.65 [facility] [address] [id number] [address] [place] [id number] May, [facility] [address] [id number] [address] [place] [id number] Apr, [facility] [address] [facility] [id number] [address] [place] [id number] Apr, Type 1 diabetes mellitus wit h hyperglycemia E10.65 [facility] [address] [facility] [id number] [address] [place] [phone] March, [facility] [address] [facility] [id number] [address] [place] [id number] March, [facility] [address] [facility] [id number] [address] [place] [id number] Jan, [facility] [address] [id number] [address] [place] [id number] Jan, [facility] [address] [facility] [id number] [address] [place] [id number] Jan, Type 1 diabetes mellitus wit h diabetic polyneuropathy E10.42 [facility] [address] [facility] [id number] [address] [place] [id number] Jan, Type 1 diabetes mellitus wit h hyperglycemia E10.65 ; Excessive cerumen in both ear canals H61.23 and Controlled diabetes mellitus type 1 without complications E10.9 [facility] [address] [id number] [address] [place] [id number] 16 Dec, 2016 [facility] [address] [id number] [address] [place] [id number] Dec, [facility] [address] [id number] [address] [place] [id number] Dec, [facility] [address] [id number] [address] [place] [id number] Dec, [facility] [address] [id number] [address] [place] [phone] Nov, [facility] [address] [id number] [address] [place] [id number] Nov, [facility] [address] [id number] [address] [place] [id number] Oct, Type 1 diabetes mellitus wit h hyperglycemia E10.65 [facility] [address] [id number] [address] [place] [id number] Sep, [facility] [address] [id number] [address] [place] [id number] Sep, [facility] [address] [id number] [address] [place] [id number] Sep, Controlled diabetes mellitus type 1 without complications E10.9 [facility] [address] [id number] [address] [place] [id number] Sep, [facility] [address] [id number] [address] [place] [address] [id number] Aug, Dental caries K02.9 [facility] [address] [id number] [address] [place] [id number] Aug, Type 1 diabetes mellitus wit h diabetic polyneuropathy E10.42 [facility] [address] [id number] [address] [place] [id number] Aug, [facility] [address] [id number] [address] [place] [id number] Aug, [facility] [address] [id number] [address] [place] [phone] Aug, [facility] [address] [id number] [address] [place] [id number] Jul, Type 1 diabetes mellitus wit h hyperglycemia E10.65 [facility] [address] [id number] [address] [place] [id number] Jul, Type 1 diabetes mellitus wit h hyperglycemia E10.65 ; Tooth pain K08.8 and Encounter for immunization Z23 [facility] [address] [id number] [address] [place] [address] [id number] Jul, 2016 Dental examination Z01.20 [facility] [address] [id number] [address] [place] [id number] 08 Jul, 2016 [facility] [address] [id number] [address] [place] [id number] Jul, [facility] [address] [id number] [address] [place] [id number] Jul, [facility] [address] [id number] [address] [place] [id number] Jun, [facility] [address] [id number] [address] [place] [id number] May, [facility] [address] [id number] [address] [place] [id number] Apr, [facility] [address] [id number] [address] [place] [id number] Apr, [facility] [address] [id number] [address] [place] [id number] Apr, [facility] [address] [id number] [address] [place] [id number] March, [facility] [address] [id number] [address] [place] [id number] March, [facility] [address] [id number] [address] [place] [id number] Feb, [facility] [address] [id number] [address] [place] [id number] Feb, [facility] [address] [id number] [address] [place] [id number] Feb, Type 1 diabetes mellitus wit h hyperglycemia E10.65 [facility] [address] [id number] [address] [place] [id number] Jan, [facility] [address] [id number] [address] [place] [id number] Jan, [facility] [address] [facility] [id number] [address] [place] [phone] Jan, [facility] [address] [id number] [address] [place] [id number] Jan, [facility] [address] [id number] [address] [place] [phone] Dec, [facility] [address] [id number] [address] [place] [id number] Nov, [facility] [address] [facility] [id number] [address] [place] [id number] Nov, [facility] [address] [id number] [address] [place] [id number] Oct, [facility] [address] [facility] [id number] [address] [place] [id number] Oct, Type 1 diabetes mellitus wit h 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 ; Type 1 diabetes mellitus with hyperglycemia E10.65 ; Gastroparesis K31.84 and Esophageal stricture K22.2 [facility] [address] [id number] [address] [place] [id number] Oct, [facility] [address] [id number] [address] [place] [id number] Sep, [facility] [address] [id number] [address] [place] [id number] Sep, Type 1 diabetes mellitus wit h other diabetic neurological complication E10.49 [facility] [address] [id number] [address] [place] [id number] Aug, Encounter for immunization Z 23 [facility] [address] [id number] [address] [place] [id number] 19 Aug, 2015 [facility] [address] [id number] [address] [place] [id number] Aug, [facility] [address] [id number] [address] [place] [id number] Jul, [facility] [address] [id number] [address] [place] [id number] Jul, [facility] [address] [id number] [address] [place] [phone] Jun, [facility] [address] [id number] [address] [place] [id number] Jun, [facility] [address] [id number] [address] [place] [id number] Jun, [facility] [address] [id number] [address] [place] [id number] May, [facility] [address] [id number] [address] [place] [id number] May, [facility] [address] [id number] [address] [place] [id number] May, Diabetes type 1, controlled 250.01 [facility] [address] [id number] [address] [place] [phone] May, [facility] [address] [id number] [address] [place] [id number] May, [facility] [address] [id number] [address] [place] [address] [id number] 30 Apr, 2015 Dental examination V72.2 [facility] [address] [id number] [address] [place] [id number] Apr, [facility] [address] [id number] [address] [place] [id number] Apr, [facility] [address] [id number] [address] [place] [id number] Apr, [facility] [address] [id number] [address] [place] [id number] Apr, [facility] [address] [id number] [address] [place] [id number] Apr, [facility] [address] [id number] [address] [place] [address] [id number] Apr, Dental examination V72.2 [facility] [address] [id number] [address] [place] [id number] Apr, [facility] [address] [id number] [address] [place] [id number] Apr, [facility] [address] [id number] [address] [place] [id number] March, Diabetes mellitus type 1 250 .01 [facility] [address] [id number] [address] [place] [id number] March, [facility] [address] [id number] [address] [place] [id number] Feb, [facility] [address] [id number] [address] [place] [id number] Feb, [facility] [address] [id number] [address] [place] [id number] Jan, [facility] [address] [id number] [address] [place] [phone] Jan, [facility] [address] [id number] [address] [place] [address], [place] [id number] Jan, [facility] [address] [id number] [address] [place] [address], [place] [id number] Jan, [facility] [address] [id number] [address] [place] [address], [place] [id number] Dec, [facility] [address] [id number] [address] [place] [address], [place] [id number] Dec, [facility] [address] [id number] [address] [place] [address], [place] [id number] Nov, [facility] [address] [id number] [address] [place] [address], [place] [id number] Nov, [facility] [address] [id number] [address] [place] [address], [place] [id number] Nov, [facility] [address] [id number] [address] [place] [address], [place] [id number] Nov, [facility] [address] [id number] [address] [place] [address], [place] [id number] Nov, [facility] [address] [id number] [address] [place] [address], [place] [id number] Nov, [facility] [address] [id number] [address] [place] [address], [place] [id number] Nov, [facility] [address] [id number] [address] [place] [address], [place] [id number] Oct, [facility] [address] [id number] [address] [place] [address], [place] [id number] Oct, [facility] [address] [id number] [address] [place] [address], [place] [id number] Sep, [facility] [address] [id number] [address] [place] [address], [place] [id number] Aug, [facility] [address] [id number] [address] [place] [address], [place] [id number] Aug, [facility] [address] [id number] [address] [place] [address], [place] [id number] Aug, [facility] [address] [id number] [address] [place] [address], [place] [id number] Aug, [facility] [address] [id number] [address] [place] [address], [place] [id number] Aug, [facility] [address] [id number] [address] [place] [address], [place] [id number] Aug, [facility] [address] [id number] [address] [place] [address], [place] [id number] Aug, [facility] [address] [id number] [address] [place] [address], [place] [id number] Aug, [facility] [address] [id number] [address] [place] [address], [place] [id number] Aug, [facility] [address] [id number] [address] [place] [address], [place] [id number] Aug, [facility] [facility] [address] [id number] [address] [place] [address], [place] [id number] Aug, [facility] [address] [id number] [address] [place] [id number] Aug, [facility] [address] [id number] [address] [place] [address], [place] [id number] Aug, [facility] [address] [id number] [address] [place] [id number] Aug, [facility] [address] [id number] [address] [place] [address], [place] [id number] Jul, [facility] [address] [id number] [address] [place] [address], [place] [id number] Jul, [facility] [address] [id number] [address] [place] [address], [place] [id number] Jul, [facility] [address] [id number] [address] [place] [address], [place] [id number] Jul, [facility] [address] [id number] [facility] [place] [id number] Jun, [facility] [address] [id number] [address] [place] [address], [place] [id number] Jun, [facility] [address] [id number] [address] [place] [address], [place] [id number] Jun, [facility] [address] [id number] [address] [place] [address], [place] [id number] Jun, [facility] [address] [id number] [address] [place] [address], [place] [id number] May, [facility] [address] [id number] [address] [place] [address], [place] [id number] May, [facility] [address] [id number] [address] [place] [address], [place] [id number] May, [facility] [address] [id number] [address] [place] [address], [place] [id number] May, [facility] [address] [id number] [address] [place] [address], [place] [id number] May, [facility] [address] [id number] [address] [place] [address], [place] [phone] May, [facility] [address] [id number] [address] [place] [address], [place] [id number] May, [facility] [address] [id number] [address] [place] [address], [place] [id number] May, [facility] [address] [id number] [address] [place] [address], [place] [id number] May, [facility] [address] [id number] [address] [place] [address], [place] [id number] May, [facility] [address] [id number] [address] [place] [address], [place] [phone] May, [facility] [address] [id number] [facility] [place] [id number] May, [facility] [address] [id number] [facility] [place] [id number] May, [facility] [address] [id number] [facility] [place] [id number] Apr, [facility] [address] [id number] [facility] [place] [id number] Apr, [facility] [address] [id number] [address] [place] [address], [place] [id number] Apr, [facility] [address] [id number] [address] [place] [address], [place] [id number] Apr, [facility] [address] [id number] [address] [place] [address], [place] [id number] Apr, [facility] [address] [id number] [address] [place] [address], [place] [id number] Apr, [facility] [address] [id number] [address] [place] [address], [place] [id number] Apr, [facility] [address] [id number] [address] [place] [address], [place] [id number] Apr, [facility] [address] [id number] [address] [place] [address], [place] [id number] Apr, [facility] [address] [id number] [address] [place] [address], [place] [id number] Apr, [facility] [address] [id number] [address] [place] [address], [place] [id number] Apr, [facility] [address] [id number] [address] [place] [address], [place] [id number] Apr, [facility] [address] [id number] [address] [place] [address], [place] [id number] Apr, [facility] [address] [id number] [address] [place] [address], [place] [id number] Apr, [facility] [address] [id number] [address] [place] [address], [place] [id number] March, [facility] [address] [id number] [address] [place] [address], [place] [id number] March, [facility] [address] [id number] [address] [place] [address], [place] [id number] March, [facility] [address] [id number] [address] [place] [address], [place] [id number] March, [facility] [address] [id number] [address] [place] [address], [place] [id number] March, [facility] [address] [id number] [address] [place] [address], [place] [id number] March, [facility] [address] [id number] [address] [place] [address], [place] [id number] March, [facility] [address] [id number] [address] [place] [address], [place] [id number] March, [facility] [address] [id number] [address] [place] [address], [place] [id number] March, [facility] [address] [id number] [address] [place] [address], [place] [id number] March, [facility] [address] [id number] [address] [place] [address], [place] [id number] Feb, [facility] [address] [id number] [address] [place] [address], [place] [id number] Feb, [facility] [address] [id number] [address] [place] [address], [place] [id number] Feb, [facility] [address] [id number] [address] [place] [address], [place] [id number] Feb, [facility] [address] [id number] [address] [place] [address], [place] [id number] Feb, [facility] [address] [id number] [facility] [place] [id number] 10 Feb, 2014 [facility] [address] [id number] [facility] [place] [id number] Feb, [facility] [address] [id number] [facility] [place] [id number] Feb, [facility] [address] [id number] [address] [place] [address], [place] [id number] 18 Jan, 2014 [facility] [address] [id number] [address] [place] [address], [place] [id number] Jan, [facility] [address] [id number] [address] [place] [address], [place] [id number] Jan, [facility] [address] [id number] [address] [place] [address], [place] [id number] Jan, [facility] [address] [id number] [address] [place] [address], [place] [id number] Jan, [facility] [address] [id number] [address] [place] [address], [place] [id number] Jan, [facility] [address] [id number] [address] [place] [address], [place] [id number] Jan, [facility] [address] [id number] [address] [place] [address], [place] [id number] Jan, [facility] [address] [id number] [address] [place] [address], [place] [id number] Jan, [facility] [address] [id number] [address] [place] [address], [place] [id number] Jan, [facility] [address] [id number] [address] [place] [address], [place] [id number] Dec, [facility] [address] [id number] [address] [place] [address], [place] [id number] Dec, [facility] [address] [id number] [address] [place] [address], [place] [id number] Nov, [facility] [address] [id number] [address] [place] [address], [place] [id number] Nov, [facility] [address] [id number] [address] [place] [address], [place] [id number] Nov, [facility] [address] [id number] [address] [place] [address], [place] [id number] Nov, [facility] [address] [id number] [address] [place] [address], [place] [phone] Nov, [facility] [address] [id number] [address] [place] [address], [place] [phone] Nov, [facility] [address] [id number] [address] [place] [address], [place] [id number] Nov, [facility] [address] [id number] [address] [place] [address], [place] [id number] Nov, [facility] [address] [id number] [address] [place] [address], [place] [id number] Oct, [facility] [address] [id number] [address] [place] [address], [place] [id number] Oct, [facility] [address] [id number] [address] [place] [address], [place] [id number] Oct, [facility] [address] [id number] [address] [place] [address], [place] [id number] Oct, [facility] [address] [id number] [address] [place] [phone] Oct, [facility] [address] [id number] [address] [place] [address], [place] [id number] Oct, [facility] [address] [id number] [address] [place] [address], [place] [id number] Sep, [facility] [address] [id number] [address] [place] [address], [place] [id number] Sep, [facility] [address] [id number] [address] [place] [id number] Sep, [facility] [address] [id number] [address] [place] [address], [place] [id number] Sep, [facility] [address] [id number] [address] [place] [address], [place] [id number] Sep, [facility] [address] [id number] [address] [place] [address], [place] [id number] Aug, [facility] [address] [id number] [address] [place] [address], [place] [id number] Aug, [facility] [address] [id number] [address] [place] [address], [place] [id number] Aug, [facility] [address] [id number] [address] [place] [address], [place] [id number] Aug, [facility] [address] [id number] [address] [place] [address], [place] [phone] Aug, [facility] [address] [id number] [address] [place] [address], [place] [id number] Aug, [facility] [address] [id number] [address] [place] [address], [place] [id number] Jul, [facility] [address] [id number] [address] [place] [address], [place] [id number] Jul, [facility] [address] [id number] [address] [place] [address], [place] [id number] Jul, [facility] [address] [id number] [address] [place] [address], [place] [id number] Jun, [facility] [address] [id number] [address] [place] [address], [place] [id number] Jun, [facility] [address] [id number] [address] [place] [address], [place] [id number] May, [facility] [address] [id number] [address] [place] [address], [place] [id number] May, [facility] [address] [id number] [facility] [place] [id number] 11 Apr, 2013 [facility] [address] [id number] [address] [place] [address], [place] [id number] 07 Apr, 2013 [facility] [address] [id number] [address] [place] [address], [place] [id number] 06 Apr, 2013 [facility] [address] [id number] [address] [place] [address], [place] [id number] March, [facility] [address] [id number] [address] [place] [address], [place] [id number] Feb, [facility] [address] [id number] [address] [place] [address], [place] [id number] Feb, [facility] [address] [id number] [address] [place] [address], [place] [phone] Jan, [facility] [address] [id number] [address] [place] [address], [place] [id number] Jan, [facility] [address] [id number] [address] [place] [address], [place] [id number] Jan, [facility] [address] [id number] [address] [place] [address], [place] [id number] 08 Jan, 2013 [facility] [address] [id number] [address] [place] [address], [place] [phone] Jan, [facility] [address] [id number] [address] [place] [address], [place] [id number] 28 Dec, 2012 [facility] [address] [id number] [address] [place] [address], [place] [id number] 27 Dec, 2012 [facility] [address] [id number] [address] [place] [address], [place] [id number] 18 Dec, 2012 [facility] [address] [id number] [address] [place] [address], [place] [id number] 11 Dec, 2012 [facility] [address] [id number] [address] [place] [address], [place] [id number] Dec, [facility] [address] [id number] [address] [place] [address], [place] [id number] Dec, [facility] [address] [place] [id number] Nov, [facility] [address] [id number] [address] [place] [address], [place] [id number] Nov, [facility] [address] [id number] [address] [place] [address], [place] [id number] Nov, [facility] [address] [id number] [address] [place] [address], [place] [id number] Nov, [facility] [address] [id number] [address] [place] [address], [place] [id number] Nov, [facility] [address] [id number] [address] [place] [address], [place] [id number] Oct, [facility] [address] [id number] [address] [place] [address], [place] [id number] Oct, [facility] [address] [id number] [address] [place] [address], [place] [id number] Oct, [facility] [address] [id number] [address] [place] [address], [place] [id number] Oct, [facility] [address] [id number] [address] [place] [address], [place] [id number] Oct, [facility] [address] [id number] [address] [place] [address], [place] [id number] Oct, [facility] [address] [id number] [address] [place] [address], [place] [id number] Oct, [facility] [address] [id number] [address] [place] [address], [place] [id number] Oct, [facility] [address] [id number] [address] [place] [address], [place] [id number] Sep, [facility] [address] [id number] [address] [place] [id number] Sep, [facility] [address] [id number] [address] [place] [id number] Sep, [facility] [address] [id number] [address] [place] [id number] Sep, [facility] [address] [id number] [address] [place] [id number] Sep, [facility] [address] [id number] [address] [place] [id number] Sep, [facility] [address] [id number] [address] [place] [id number] Sep, [facility] [address] [id number] [address] [place] [id number] Sep, [facility] [address] [id number] [address] [place] [id number] Sep, [facility] [address] [id number] [address] [place] [id number] Sep, [facility] [address] [id number] [address] [place] [id number] Sep, [facility] [address] [id number] [address] [place] [id number] Sep, [facility] [address] [id number] [address] [place] [id number] Sep, [facility] [address] [id number] [address] [place] [id number] Sep, [facility] [address] [id number] [address] [place] [id number] Sep, [facility] [address] [id number] [address] [place] [id number] Sep, IMMUNIZATIONS No Known Immunizations SOCIAL HISTORY Never Assessed REASON FOR VISIT EMR[place] [place] C[place] VITAL SIGNS MEDICATIONS Unknown Medications RESULTS No Results PROCEDURES No Known procedures INSTRUCTIONS MEDICATIONS ADMINISTERED No Known Medications MEDICAL (GENERAL) HISTORY Type Description Date Medical History hypertension Medical History type I diabetes Medical History chronic renal insufficiency Surgical History gastric pacemaker 2008 Hospitalization History nausea 2011
--- OUTSIDE RECORDS SUMMARY | 2020-04-17 21:35 | XMS REPORT ---
Author Author Curt Barr Doctor Organization [facility] Address Unknown Phone Unavailable Care Team Providers Care [employer] Keeper Name Role Phone Migration, Doctor Unavailable Unavailable PROBLEMS Type Condition ICD9-CM Code IRL23-FS Code Onset Dates Condition S tatus SNOMED Code Problem Hypertension, essential I10 Active 00095646 Problem Gastroparesis K31.84 Active 137735 006 Problem Type 1 diabetes mellitus with other diab etic neurological complication E10.49 Active 14345145 Problem Controlled diabetes mellitus type 1 without complications E10.9 Active 30279383 Problem Mood disorder F39 Active 788592 05 Problem Other chronic pain G89.29 Active 8 7243408 Problem 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 Active 14923408 Problem Type 1 diabetes mellitus with hyperglycemia E10.65 Active [id number] Problem Type 1 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 Active 32119955 Problem Chronic fatigue R53.82 Active 8422 9001 ALLERGIES No Information ENCOUNTERS Encounter Location Date Diagnosis [place] [id number] [place] [id number] [address] [place] [id number] 10 Feb, 2019 Type 1 diabetes mellitus wit h other diabetic neurological complication E10.49 [facility] [address] [place] [id number] [address] [place] [id number] 04 Feb, 2019 Encounter for Medicare annua l wellness exam Z00.00 ; Mood disorder F39 ; Type 1 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 ; Hypertension, essential I10 and Chronic fatigue R53.82 [facility] [address] [place] [id number] [address] [place] [id number] 13 Jan, 2019 Type 1 diabetes mellitus wit h other diabetic neurological complication E10.49 [facility] [address] [place] [id number] [address] [place] [phone] Jan, [facility] [address] [place] [id number] [address] [place] [id number] Jan, Other chronic pain G89.29 [facility] [address] [id number] [address] [place] [id number] 11 Dec, 2018 [facility] [address] [id number] [address] [place] [id number] 08 Dec, 2018 Type 1 diabetes mellitus wit h other diabetic neurological complication E10.49 [facility] [address] [id number] [address] [place] [id number] 05 Dec, 2018 Other chronic pain G89.29 [facility] [address] [id number] [address] [place] [phone] Nov, [facility] [id number] [place] [address] [id number] Nov, Caries K02.9 [facility] [address] [id number] [address] [place] [id number] Nov, Type 1 diabetes mellitus wit h other diabetic neurological complication E10.49 [facility] [address] [id number] [address] [place] [id number] Nov, Controlled diabetes mellitus type 1 without complications E10.9 ; Other chronic pain G89.29 and Pain in left knee M25.562 [facility] [address] [id number] [address] [place] [address] [id number] Oct, Dental examination Z01.20 [facility] [address] [id number] [address] [place] [id number] 14 Oct, 2018 Cutaneous abscess of unspeci fied foot L02.619 and Cellulitis of unspecified part of limb L03.119 [facility] [address] [id number] [address] [place] [phone] Oct, [facility] [address] [facility] [id number] [address] [place] [address] Oct, Type 1 diabetes mellitus wit h other diabetic neurological complication E10.49 [facility] [address] [id number] [address] [place] [address] [id number] Oct, Dental examination Z01.20 an d Caries K02.9 [facility] [address] [facility] [id number] [address] [place] [id number] Oct, Cutaneous abscess of left fo ot L02.612 and Cellulitis of left lower limb L03.116 [facility] [address] [facility] [id number] [address] [place] [phone] Oct, Dental examination Z01.20 an d Pain, dental K08.89 [facility] [address] [facility] [id number] [address] [place] [id number] Sep, Left foot pain M79.672 and L eft anterior knee pain M25.562 [place] [address] [facility] [id number] [address] [place] [address] Sep, Type 1 diabetes mellitus wit h other diabetic neurological complication E10.49 [place] [address] [place] [id number] [address] [place] [id number] Sep, [place] [address] [facility] [id number] [address] [place] [id number] 11 Aug, 2018 Type 1 diabetes mellitus wit h other diabetic neurological complication E10.49 [place] [address] [facility] [id number] [address] [place] [id number] 10 Aug, 2018 Encounter for immunization Z 23 [facility] [address] [facility] [id number] [address] [place] [id number] 05 Aug, 2018 Type 1 diabetes mellitus wit h hyperglycemia E10.65 [place] [address] [facility] [id number] [address] [place] [id number] Jul, Type 1 diabetes mellitus wit h hyperglycemia E10.65 [place] [address] [facility] [id number] [address] [place] [id number] 19 Jul, 2018 [place] [address] [facility] [id number] [address] [place] [id number] 18 Jul, 2018 [place] [address] [facility] [id number] [address] [place] [id number] Jul, Type 1 diabetes mellitus wit h other diabetic neurological complication E10.49 [facility] [address] [id number] [address] [place] [id number] Jul, Type 1 diabetes mellitus wit h other diabetic neurological complication E10.49 and Mood disorder F39 [facility] [address] [id number] [address] [place] [id number] Jun, [facility] [address] [id number] [address] [place] [address] Jun, Type 1 diabetes mellitus wit h other diabetic neurological complication E10.49 and Chronic fatigue R53.82 [facility] [address] [id number] [address] [place] [address] May, Type 1 diabetes mellitus wit h other diabetic neurological complication E10.49 [facility] [address] [id number] [address] [place] [address] May, [facility] [address] [id number] [address] [place] [phone] May, [facility] [address] [id number] [address] [place] [phone] Apr, [facility] [address] [facility] [id number] [address] [place] [id number] Apr, Type 1 diabetes mellitus wit h other diabetic neurological complication E10.49 [facility] [address] [facility] [id number] [address] [place] [phone] March, [facility] [address] [id number] [address] [place] [phone] Feb, [facility] [address] [facility] [id number] [address] [place] [id number] Feb, Type 1 diabetes mellitus wit h other diabetic neurological complication E10.49 ; Tobacco abuse Z72.0 and Tobacco abuse counseling Z71.6 [facility] [address] [id number] [address] [place] [address] Jan, Type 1 diabetes mellitus wit h hyperglycemia E10.65 [facility] [address] [facility] [id number] [address] [place] [id number] Jan, [facility] [address] [facility] [id number] [address] [place] [address] Dec, Tobacco abuse Z72.0 [facility] [address] [facility] [id number] [address] [place] [address] Dec, Type 1 diabetes mellitus wit h hyperglycemia E10.65 [facility] [address] [facility] [id number] [address] [place] [address] Dec, Type 1 diabetes mellitus wit h hyperglycemia E10.65 ; Tobacco abuse Z72.0 and Tobacco abuse counseling Z71.6 [facility] [address] [facility] [id number] [address] [place] [address] Nov, Type 1 diabetes mellitus wit h hyperglycemia E10.65 [facility] [address] [facility] [id number] [address] [place] [address] Oct, Type 1 diabetes mellitus wit h hyperglycemia E10.65 [facility] [address] [facility] [id number] [address] [place] [id number] Oct, Type 1 diabetes mellitus wit h hyperglycemia E10.65 [facility] [address] [facility] [id number] [address] [place] [address] Sep, Type 1 diabetes mellitus wit h hyperglycemia E10.65 [facility] [address] [facility] [id number] [address] [place] [address] Aug, Type 1 diabetes mellitus wit h hyperglycemia E10.65 [facility] [address] [facility] [id number] [address] [place] [id number] Aug, [facility] [address] [facility] [id number] [address] [place] [id number] Aug, Type 1 diabetes mellitus wit h hyperglycemia E10.65 [facility] [address] [facility] [id number] [address] [place] [address] Aug, Encounter for immunization Z 23 [facility] [address] [id number] [address] [place] [address] Aug, Type 1 diabetes mellitus wit h hyperglycemia E10.65 [facility] [address] [id number] [address] [place] [id number] Jul, Type 1 diabetes mellitus wit h hyperglycemia E10.65 [facility] [address] [id number] [address] [place] [id number] Jul, Type 1 diabetes mellitus wit h hyperglycemia E10.65 [facility] [address] [id number] [address] [place] [id number] May, Type 1 diabetes mellitus wit h hyperglycemia E10.65 [facility] [address] [id number] [address] [place] [address] May, [facility] [address] [id number] [address] [place] [id number] Apr, [facility] [address] [facility] [id number] [address] [place] [id number] Apr, Type 1 diabetes mellitus wit h hyperglycemia E10.65 [facility] [address] [facility] [id number] [address] [place] [phone] March, [facility] [address] [facility] [id number] [address] [place] [address] March, [facility] [address] [facility] [id number] [address] [place] [id number] Jan, [facility] [address] [id number] [address] [place] [id number] Jan, [facility] [address] [facility] [id number] [address] [place] [address] Jan, Type 1 diabetes mellitus wit h diabetic polyneuropathy E10.42 [facility] [address] [facility] [id number] [address] [place] [address] Jan, Type 1 diabetes mellitus wit h hyperglycemia E10.65 ; Excessive cerumen in both ear canals H61.23 and Controlled diabetes mellitus type 1 without complications E10.9 [facility] [address] [id number] [address] [place] [id number] 16 Dec, 2016 [facility] [address] [id number] [address] [place] [address] Dec, [facility] [address] [id number] [address] [place] [id number] Dec, [facility] [address] [id number] [address] [place] [phone] Dec, [facility] [address] [id number] [address] [place] [id number] Nov, [facility] [address] [id number] [address] [place] [address] Nov, [facility] [address] [id number] [address] [place] [address] Oct, Type 1 diabetes mellitus wit h hyperglycemia E10.65 [facility] [address] [id number] [address] [place] [id number] Sep, [facility] [address] [id number] [address] [place] [id number] Sep, [facility] [address] [id number] [address] [place] [address] Sep, Controlled diabetes mellitus type 1 without complications E10.9 [facility] [address] [id number] [address] [place] [id number] Sep, [facility] [address] [id number] [address] [place] [address] [id number] Aug, Dental caries K02.9 [facility] [address] [id number] [address] [place] [id number] Aug, Type 1 diabetes mellitus wit h diabetic polyneuropathy E10.42 [facility] [address] [id number] [address] [place] [id number] Aug, [facility] [address] [id number] [address] [place] [id number] Aug, [facility] [address] [id number] [address] [place] [id number] Aug, [facility] [address] [id number] [address] [place] [id number] Jul, Type 1 diabetes mellitus wit h hyperglycemia E10.65 [facility] [address] [id number] [address] [place] [id number] Jul, Type 1 diabetes mellitus wit h hyperglycemia E10.65 ; Tooth pain K08.8 and Encounter for immunization Z23 [facility] [address] [id number] [address] [place] [address] [id number] Jul, 2016 Dental examination Z01.20 [facility] [address] [id number] [address] [place] [id number] 08 Jul, 2016 [facility] [address] [id number] [address] [place] [address] Jul, [facility] [address] [id number] [address] [place] [id number] Jul, [facility] [address] [id number] [address] [place] [id number] Jun, [facility] [address] [id number] [address] [place] [id number] May, [facility] [address] [id number] [address] [place] [id number] Apr, [facility] [address] [id number] [address] [place] [address] Apr, [facility] [address] [id number] [address] [place] [id number] Apr, [facility] [address] [id number] [address] [place] [id number] March, [facility] [address] [id number] [address] [place] [id number] March, [facility] [address] [id number] [address] [place] [phone] Feb, [facility] [address] [id number] [address] [place] [id number] Feb, [facility] [address] [id number] [address] [place] [id number] Feb, Type 1 diabetes mellitus wit h hyperglycemia E10.65 [facility] [address] [id number] [address] [place] [id number] Jan, [facility] [address] [id number] [address] [place] [id number] Jan, [facility] [address] [facility] [id number] [address] [place] [id number] Jan, [facility] [address] [id number] [address] [place] [id number] Jan, [facility] [address] [id number] [address] [place] [id number] Dec, [facility] [address] [id number] [address] [place] [id number] Nov, [facility] [address] [facility] [id number] [address] [place] [id number] Nov, [facility] [address] [id number] [address] [place] [id number] Oct, [facility] [address] [facility] [id number] [address] [place] [id number] Oct, Type 1 diabetes mellitus wit h 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 ; Type 1 diabetes mellitus with hyperglycemia E10.65 ; Gastroparesis K31.84 and Esophageal stricture K22.2 [facility] [address] [id number] [address] [place] [address] Oct, [facility] [address] [id number] [address] [place] [address] Sep, [facility] [address] [id number] [address] [place] [id number] Sep, Type 1 diabetes mellitus wit h other diabetic neurological complication E10.49 [facility] [address] [id number] [address] [place] [id number] Aug, Encounter for immunization Z 23 [facility] [address] [id number] [address] [place] [id number] 19 Aug, 2015 [facility] [address] [id number] [address] [place] [id number] Aug, [facility] [address] [id number] [address] [place] [id number] Jul, [facility] [address] [id number] [address] [place] [id number] Jul, [facility] [address] [id number] [address] [place] [phone] Jun, [facility] [address] [id number] [address] [place] [id number] Jun, [facility] [address] [id number] [address] [place] [address] Jun, [facility] [address] [id number] [address] [place] [phone] May, [facility] [address] [id number] [address] [place] [id number] May, [facility] [address] [id number] [address] [place] [id number] May, Diabetes type 1, controlled 250.01 [facility] [address] [id number] [address] [place] [id number] May, [facility] [address] [id number] [address] [place] [id number] May, [facility] [address] [id number] [address] [place] [address] [id number] Apr, 2015 Dental examination V72.2 [facility] [address] [id number] [address] [place] [id number] Apr, [facility] [address] [id number] [address] [place] [id number] Apr, [facility] [address] [id number] [address] [place] [address] Apr, [facility] [address] [id number] [address] [place] [id number] Apr, [facility] [address] [id number] [address] [place] [id number] Apr, [facility] [address] [id number] [address] [place] [address] [id number] Apr, Dental examination V72.2 [facility] [address] [id number] [address] [place] [phone] Apr, [facility] [address] [id number] [address] [place] [id number] Apr, [facility] [address] [id number] [address] [place] [address] March, Diabetes mellitus type 1 250 .01 [facility] [address] [id number] [address] [place] [id number] March, [facility] [address] [id number] [address] [place] [id number] Feb, [facility] [address] [id number] [address] [place] [id number] Feb, [facility] [address] [id number] [address] [place] [id number] Jan, [facility] [address] [id number] [address] [place] [id number] Jan, [facility] [address] [id number] [address] [place] [address], [place] [address] Jan, [facility] [address] [id number] [address] [place] [address], [place] [id number] Jan, [facility] [address] [id number] [address] [place] [address], [place] [id number] Dec, [facility] [address] [id number] [address] [place] [address], [place] [id number] Dec, [facility] [address] [id number] [address] [place] [address], [place] [id number] Nov, [facility] [address] [id number] [address] [place] [address], [place] [id number] Nov, [facility] [address] [id number] [address] [place] [address], [place] [id number] Nov, [facility] [address] [id number] [address] [place] [address], [place] [id number] Nov, [facility] [address] [id number] [address] [place] [address], [place] [address] Nov, [facility] [address] [id number] [address] [place] [address], [place] [id number] Nov, [facility] [address] [id number] [address] [place] [address], [place] [address] Nov, [facility] [address] [id number] [address] [place] [address], [place] [id number] Oct, [facility] [address] [id number] [address] [place] [address], [place] [id number] Oct, [facility] [address] [id number] [address] [place] [address], [place] [address] Sep, [facility] [address] [id number] [address] [place] [address], [place] [id number] Aug, [facility] [address] [id number] [address] [place] [address], [place] [id number] Aug, [facility] [address] [id number] [address] [place] [address], [place] [id number] Aug, [facility] [address] [id number] [address] [place] [address], [place] [id number] Aug, [facility] [address] [id number] [address] [place] [address], [place] [address] Aug, [facility] [address] [id number] [address] [place] [address], [place] [id number] Aug, [facility] [address] [id number] [address] [place] [address], [place] [id number] Aug, [facility] [address] [id number] [address] [place] [address], [place] [id number] Aug, [facility] [address] [id number] [address] [place] [address], [place] [address] Aug, [facility] [address] [id number] [address] [place] [address], [place] [address] Aug, [facility] [address] [id number] [address] [place] [address], [place] [address] Aug, [facility] [address] [id number] [address] [place] [id number] Aug, [facility] [address] [id number] [address] [place] [address], [place] [address] Aug, [facility] [address] [id number] [address] [place] [address] Aug, [facility] [address] [id number] [address] [place] [address], [place] [address] Jul, [facility] [address] [id number] [address] [place] [address], [place] [address] Jul, [facility] [address] [id number] [address] [place] [address], [place] [address] Jul, [facility] [address] [id number] [address] [place] [address], [place] [address] Jul, [facility] [address] [id number] [facility] [place] [address] Jun, [facility] [address] [id number] [address] [place] [address], [place] [address] Jun, [facility] [address] [id number] [address] [place] [address], [place] [address] Jun, [facility] [address] [id number] [address] [place] [address], [place] [address] Jun, [facility] [address] [id number] [address] [place] [address], [place] [address] May, [facility] [address] [id number] [address] [place] [address], [place] [address] May, [facility] [address] [id number] [address] [place] [address], [place] [address] May, [facility] [address] [id number] [address] [place] [address], [place] [address] May, [facility] [address] [id number] [address] [place] [address], [place] [address] May, [facility] [address] [id number] [address] [place] [address], [place] [address] May, [facility] [address] [id number] [address] [place] [address], [place] [address] May, [facility] [address] [id number] [address] [place] [address], [place] [address] May, [facility] [address] [id number] [address] [place] [address], [place] [address] May, [facility] [address] [id number] [address] [place] [address], [place] [address] May, [facility] [address] [id number] [address] [place] [address], [place] [address] May, [facility] [address] [id number] [facility] [place] [address] May, [facility] [address] [id number] [facility] [place] [address] May, [facility] [address] [id number] [facility] [place] [address] Apr, [facility] [address] [id number] [facility] [place] [address] Apr, [facility] [address] [id number] [address] [place] [address], [place] [address] Apr, [facility] [address] [id number] [address] [place] [address], [place] [address] Apr, [facility] [address] [id number] [address] [place] [address], [place] [address] Apr, [facility] [address] [id number] [address] [place] [address], [place] [address] Apr, [facility] [address] [id number] [address] [place] [address], [place] [address] Apr, [facility] [address] [id number] [address] [place] [address], [place] [address] Apr, [facility] [address] [id number] [address] [place] [address], [place] [address] Apr, [facility] [address] [id number] [address] [place] [address], [place] [address] Apr, [facility] [address] [id number] [address] [place] [address], [place] [address] Apr, [facility] [address] [id number] [address] [place] [address], [place] [address] Apr, [facility] [address] [id number] [address] [place] [address], [place] [address] Apr, [facility] [address] [id number] [address] [place] [address], [place] [address] Apr, [facility] [address] [id number] [address] [place] [address], [place] [address] March, [facility] [address] [id number] [address] [place] [address], [place] [address] March, [facility] [address] [id number] [address] [place] [address], [place] [address] March, [facility] [address] [id number] [address] [place] [address], [place] [address] March, [facility] [address] [id number] [address] [place] [address], [place] [address] March, [facility] [address] [id number] [address] [place] [address], [place] [address] March, [facility] [address] [id number] [address] [place] [address], [place] [address] March, [facility] [address] [id number] [address] [place] [address], [place] [address] March, [facility] [address] [id number] [address] [place] [address], [place] [address] March, [facility] [address] [id number] [address] [place] [address], [place] [address] March, [facility] [address] [id number] [address] [place] [address], [place] [address] Feb, [facility] [address] [id number] [address] [place] [address], [place] [address] Feb, [facility] [address] [id number] [address] [place] [address], [place] [address] Feb, [facility] [address] [id number] [address] [place] [address], [place] [address] Feb, [facility] [address] [id number] [address] [place] [address], [place] [address] Feb, [facility] [address] [id number] [facility] [place] [address] 10 Feb, 2014 [facility] [address] [id number] [facility] [place] [address] Feb, [facility] [address] [id number] [facility] [place] [address] Feb, [facility] [address] [id number] [address] [place] [address], [place] [address] 18 Jan, 2014 [facility] [address] [id number] [address] [place] [address], [place] [address] Jan, [facility] [address] [id number] [address] [place] [address], [place] [address] Jan, [facility] [address] [id number] [address] [place] [address], [place] [address] Jan, [facility] [address] [id number] [address] [place] [address], [place] [address] Jan, [facility] [address] [id number] [address] [place] [address], [place] [address] Jan, [facility] [address] [id number] [address] [place] [address], [place] [address] Jan, [facility] [address] [id number] [address] [place] [address], [place] [address] Jan, [facility] [address] [id number] [address] [place] [address], [place] [address] Jan, [facility] [address] [id number] [address] [place] [address], [place] [address] Jan, [facility] [address] [id number] [address] [place] [address], [place] [address] Dec, [facility] [address] [id number] [address] [place] [address], [place] [address] Dec, [facility] [address] [id number] [address] [place] [address], [place] [address] Nov, [facility] [address] [id number] [address] [place] [address], [place] [address] Nov, [facility] [address] [id number] [address] [place] [address], [place] [address] Nov, [facility] [address] [id number] [address] [place] [address], [place] [address] Nov, [facility] [address] [id number] [address] [place] [address], [place] [address] Nov, [facility] [address] [id number] [address] [place] [address], [place] [address] Nov, [facility] [address] [id number] [address] [place] [address], [place] [address] Nov, [facility] [address] [id number] [address] [place] [address], [place] [address] Nov, [facility] [address] [id number] [address] [place] [address], [place] [address] Oct, [facility] [address] [id number] [address] [place] [address], [place] [address] Oct, [facility] [address] [id number] [address] [place] [address], [place] [address] Oct, [facility] [address] [id number] [address] [place] [address], [place] [address] Oct, [facility] [address] [id number] [address] [place] [address] Oct, [facility] [address] [id number] [address] [place] [address], [place] [address] Oct, [facility] [address] [id number] [address] [place] [address], [place] [address] Sep, [facility] [address] [id number] [address] [place] [address], [place] [address] Sep, [facility] [address] [id number] [address] [place] [address] Sep, [facility] [address] [id number] [address] [place] [address], [place] [address] Sep, [facility] [address] [id number] [address] [place] [address], [place] [address] Sep, [facility] [address] [id number] [address] [place] [address], [place] [address] Aug, [facility] [address] [id number] [address] [place] [address], [place] [address] Aug, [facility] [address] [id number] [address] [place] [address], [place] [address] Aug, [facility] [address] [id number] [address] [place] [address], [place] [address] Aug, [facility] [address] [id number] [address] [place] [address], [place] [address] Aug, [facility] [address] [id number] [address] [place] [address], [place] [address] Aug, [facility] [address] [id number] [address] [place] [address], [place] [address] Jul, [facility] [address] [id number] [address] [place] [address], [place] [address] Jul, [facility] [address] [id number] [address] [place] [address], [place] [address] Jul, [facility] [address] [id number] [address] [place] [address], [place] [address] Jun, [facility] [address] [id number] [address] [place] [address], [place] [address] Jun, [facility] [address] [id number] [address] [place] [address], [place] [address] May, [facility] [address] [id number] [address] [place] [address], [place] [address] May, [facility] [address] [id number] [facility] [place] [address] 11 Apr, 2013 [facility] [address] [id number] [address] [place] [address], [place] [address] 07 Apr, 2013 [facility] [address] [id number] [address] [place] [address], [place] [address] 06 Apr, 2013 [facility] [address] [id number] [address] [place] [address], [place] [address] March, [facility] [address] [id number] [address] [place] [address], [place] [address] Feb, [facility] [address] [id number] [address] [place] [address], [place] [address] Feb, [facility] [address] [id number] [address] [place] [address], [place] [address] Jan, [facility] [address] [id number] [address] [place] [address], [place] [address] Jan, [facility] [address] [id number] [address] [place] [address], [place] [address] Jan, [facility] [address] [id number] [address] [place] [address], [place] [address] 08 Jan, 2013 [facility] [address] [id number] [address] [place] [address], [place] [address] Jan, [facility] [address] [id number] [address] [place] [address], [place] [address] 28 Dec, 2012 [facility] [address] [id number] [address] [place] [address], [place] [address] 27 Dec, 2012 [facility] [address] [id number] [address] [place] [address], [place] [address] 18 Dec, 2012 [facility] [address] [id number] [address] [place] [address], [place] [address] 11 Dec, 2012 [facility] [address] [id number] [address] [place] [address], [place] [address] Dec, [facility] [address] [id number] [address] [place] [address], [place] [address] Dec, [facility] [address] [place] [id number] Nov, [facility] [address] [id number] [address] [place] [address], [place] [address] Nov, [facility] [address] [id number] [address] [place] [address], [place] [address] Nov, [facility] [address] [id number] [address] [place] [address], [place] [address] Nov, [facility] [address] [id number] [address] [place] [address], [place] [address] Nov, [facility] [address] [id number] [address] [place] [address], [place] [address] Oct, [facility] [address] [id number] [address] [place] [address], [place] [address] Oct, [facility] [address] [id number] [address] [place] [address], [place] [address] Oct, [facility] [address] [id number] [address] [place] [address], [place] [address] Oct, [facility] [address] [id number] [address] [place] [address], [place] [address] Oct, [facility] [address] [id number] [address] [place] [address], [place] [address] Oct, [facility] [address] [id number] [address] [place] [address], [place] [address] Oct, [facility] [address] [id number] [address] [place] [address], [place] [address] Oct, [facility] [address] [id number] [address] [place] [address], [place] [address] Sep, [facility] [address] [id number] [address] [place] [id number] Sep, [facility] [address] [id number] [address] [place] [address] Sep, [facility] [address] [id number] [address] [place] [address] Sep, [facility] [address] [id number] [address] [place] [id number] Sep, [facility] [address] [id number] [address] [place] [address] Sep, [facility] [address] [id number] [address] [place] [address] Sep, [facility] [address] [id number] [address] [place] [address] Sep, [facility] [address] [id number] [address] [place] [address] Sep, [facility] [address] [id number] [address] [place] [address] Sep, [facility] [address] [id number] [address] [place] [address] Sep, [facility] [address] [id number] [address] [place] [address] Sep, [facility] [address] [id number] [address] [place] [address] Sep, [facility] [address] [id number] [address] [place] [address] Sep, [facility] [address] [id number] [address] [place] [address] Sep, [facility] [address] [id number] [address] [place] [id number] Sep, IMMUNIZATIONS No Known Immunizations SOCIAL HISTORY Never Assessed REASON FOR [place]ISIT [place] [place] VITAL SIGNS MEDICATIONS Unknown Medications RESULTS No Results PROCEDURES No Known procedures INSTRUCTIONS MEDICATIONS ADMINISTERED No Known Medications MEDICAL (GENERAL) HISTORY Type Description Date Medical History hypertension Medical History type I diabetes Medical History chronic renal insufficiency Surgical History gastric pacemaker 2008 Hospitalization History nausea 2011
--- OUTSIDE RECORDS SUMMARY | 2020-04-17 21:35 | XMS REPORT ---
Author Author Curt Barr Doctor Organization [facility] Address Unknown Phone Unavailable Care Team Providers Care Information Security Specialist Name Role Phone Migration, Doctor Unavailable Unavailable PROBLEMS Type Condition ICD9-CM Code ERA59-HK Code Onset Dates Condition S tatus SNOMED Code Problem Hypertension, essential I10 Active 82339579 Problem Gastroparesis K31.84 Active 770872 006 Problem Type 1 diabetes mellitus with other diab etic neurological complication E10.49 Active 34116946 Problem Controlled diabetes mellitus type 1 without complications E10.9 Active 67358389 Problem Mood disorder F39 Active 298781 05 Problem Other chronic pain G89.29 Active 8 8064741 Problem 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 Active 23188486 Problem Type 1 diabetes mellitus with hyperglycemia E10.65 Active [id number] Problem Type 1 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 Active 16792512 Problem Chronic fatigue R53.82 Active 8422 9001 ALLERGIES No Information ENCOUNTERS Encounter Location Date Diagnosis [place] [id number] [place] [id number] [address] [place] [phone] March, Encounter for Medicare annua l wellness exam Z00.00 and Type 1 diabetes mellitus with other diabetic neurological complication E10.49 [facility] [address] [place] [id number] [address] [place] [phone] Feb, Type 1 diabetes mellitus wit h other diabetic neurological complication E10.49 [facility] [address] [facility] [id number] [address] [place] [phone] Feb, Encounter for Medicare annua l wellness exam Z00.00 ; Mood disorder F39 ; Type 1 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 ; Hypertension, essential I10 and Chronic fatigue R53.82 [facility] [address] [facility] [id number] [address] [place] [phone] Jan, Type 1 diabetes mellitus wit h other diabetic neurological complication E10.49 [facility] [address] [id number] [address] [place] [phone] 11 Jan, 2019 [facility] [address] [id number] [address] [place] [phone] Jan, Other chronic pain G89.29 [facility] [address] [id number] [address] [place] [phone] 11 Dec, 2018 [facility] [address] [id number] [address] [place] [phone] 08 Dec, 2018 Type 1 diabetes mellitus wit h other diabetic neurological complication E10.49 [facility] [address] [id number] [address] [place] [id number] 05 Dec, 2018 Other chronic pain G89.29 [facility] [address] [id number] [address] [place] [phone] Nov, [facility] [address] [id number] [address] [place] [address] [id number] Nov, Caries K02.9 [facility] [address] [id number] [address] [place] [phone] Nov, Type 1 diabetes mellitus wit h other diabetic neurological complication E10.49 [facility] [address] [id number] [address] [place] [phone] Nov, Controlled diabetes mellitus type 1 without complications E10.9 ; Other chronic pain G89.29 and Pain in left knee M25.562 [facility] [address] [id number] [address] [place] [address] [id number] 18 Oct, 2018 Dental examination Z01.20 [facility] [address] [id number] [address] [place] [id number] 14 Oct, 2018 Cutaneous abscess of unspeci fied foot L02.619 and Cellulitis of unspecified part of limb L03.119 [facility] [address] [id number] [address] [place] [phone] 11 Oct, 2018 [facility] [address] [id number] [address] [place] [phone] 10 Oct, 2018 Type 1 diabetes mellitus wit h other diabetic neurological complication E10.49 [facility] [address] [id number] [address] [place] [address] [id number] 06 Oct, 2018 Dental examination Z01.20 an d Caries K02.9 [facility] [address] [facility] [id number] [address] [place] [id number] 04 Oct, 2018 Cutaneous abscess of left fo ot L02.612 and Cellulitis of left lower limb L03.116 [facility] [address] [facility] [id number] [address] [place] [phone] 04 Oct, 2018 Dental examination Z01.20 an d Pain, dental K08.89 [facility] [address] [facility] [id number] [address] [place] [phone] Sep, Left foot pain M79.672 and L eft anterior knee pain M25.562 [facility] [address] [facility] [id number] [address] [place] [phone] Sep, Type 1 diabetes mellitus wit h other diabetic neurological complication E10.49 [facility] [address] [facility] [id number] [address] [place] [phone] Sep, [facility] [address] [facility] [id number] [address] [place] [id number] 11 Aug, 2018 Type 1 diabetes mellitus wit h other diabetic neurological complication E10.49 [facility] [address] [facility] [id number] [address] [place] [phone] 10 Aug, 2018 Encounter for immunization Z 23 [facility] [address] [facility] [id number] [address] [place] [phone] 05 Aug, 2018 Type 1 diabetes mellitus wit h hyperglycemia E10.65 [facility] [address] [facility] [id number] [address] [place] [phone] Jul, Type 1 diabetes mellitus wit h hyperglycemia E10.65 [facility] [address] [facility] [id number] [address] [place] [phone] Jul, [facility] [address] [id number] [address] [place] [phone] Jul, [facility] [address] [id number] [address] [place] [phone] Jul, Type 1 diabetes mellitus wit h other diabetic neurological complication E10.49 [facility] [address] [id number] [address] [place] [phone] Jul, Type 1 diabetes mellitus wit h other diabetic neurological complication E10.49 and Mood disorder F39 [facility] [address] [id number] [address] [place] [phone] Jun, [facility] [address] [id number] [address] [place] [phone] Jun, Type 1 diabetes mellitus wit h other diabetic neurological complication E10.49 and Chronic fatigue R53.82 [facility] [address] [id number] [address] [place] [phone] May, Type 1 diabetes mellitus wit h other diabetic neurological complication E10.49 [facility] [address] [id number] [address] [place] [phone] May, [facility] [address] [id number] [address] [place] [phone] May, [facility] [address] [id number] [address] [place] [phone] Apr, [facility] [address] [id number] [address] [place] [phone] Apr, Type 1 diabetes mellitus wit h other diabetic neurological complication E10.49 [facility] [address] [id number] [address] [place] [phone] March, [facility] [address] [facility] [id number] [address] [place] [phone] Feb, [facility] [address] [id number] [address] [place] [phone] Feb, Type 1 diabetes mellitus wit h other diabetic neurological complication E10.49 ; Tobacco abuse Z72.0 and Tobacco abuse counseling Z71.6 [facility] [address] [facility] [id number] [address] [place] [phone] Jan, Type 1 diabetes mellitus wit h hyperglycemia E10.65 [facility] [address] [facility] [id number] [address] [place] [phone] Jan, [facility] [address] [facility] [id number] [address] [place] [phone] Dec, Tobacco abuse Z72.0 [facility] [address] [facility] [id number] [address] [place] [phone] Dec, Type 1 diabetes mellitus wit h hyperglycemia E10.65 [facility] [address] [facility] [id number] [address] [place] [phone] Dec, Type 1 diabetes mellitus wit h hyperglycemia E10.65 ; Tobacco abuse Z72.0 and Tobacco abuse counseling Z71.6 [facility] [address] [facility] [id number] [address] [place] [phone] Nov, Type 1 diabetes mellitus wit h hyperglycemia E10.65 [facility] [address] [facility] [id number] [address] [place] [phone] Oct, Type 1 diabetes mellitus wit h hyperglycemia E10.65 [facility] [address] [facility] [id number] [address] [place] [phone] Oct, Type 1 diabetes mellitus wit h hyperglycemia E10.65 [facility] [address] [facility] [id number] [address] [place] [phone] Sep, Type 1 diabetes mellitus wit h hyperglycemia E10.65 [facility] [address] [facility] [id number] [address] [place] [phone] Aug, Type 1 diabetes mellitus wit h hyperglycemia E10.65 [facility] [address] [facility] [id number] [address] [place] [phone] Aug, [facility] [address] [facility] [id number] [address] [place] [phone] Aug, Type 1 diabetes mellitus wit h hyperglycemia E10.65 [facility] [address] [id number] [address] [place] [id number] Aug, Encounter for immunization Z 23 [facility] [address] [id number] [address] [place] [phone] Aug, Type 1 diabetes mellitus wit h hyperglycemia E10.65 [facility] [address] [id number] [address] [place] [id number] Jul, Type 1 diabetes mellitus wit h hyperglycemia E10.65 [facility] [address] [id number] [address] [place] [phone] Jul, Type 1 diabetes mellitus wit h hyperglycemia E10.65 [facility] [address] [id number] [address] [place] [id number] May, Type 1 diabetes mellitus wit h hyperglycemia E10.65 [facility] [address] [id number] [address] [place] [phone] May, [facility] [address] [id number] [address] [place] [phone] Apr, [facility] [address] [id number] [address] [place] [phone] Apr, Type 1 diabetes mellitus wit h hyperglycemia E10.65 [facility] [address] [id number] [address] [place] [phone] March, [facility] [address] [id number] [address] [place] [phone] March, [facility] [address] [id number] [address] [place] [phone] Jan, [facility] [address] [id number] [address] [place] [phone] Jan, [facility] [address] [id number] [address] [place] [phone] Jan, Type 1 diabetes mellitus wit h diabetic polyneuropathy E10.42 [facility] [address] [id number] [address] [place] [phone] Jan, Type 1 diabetes mellitus wit h hyperglycemia E10.65 ; Excessive cerumen in both ear canals H61.23 and Controlled diabetes mellitus type 1 without complications E10.9 [facility] [address] [id number] [address] [place] [id number] 16 Dec, 2016 [facility] [address] [id number] [address] [place] [phone] Dec, [facility] [address] [id number] [address] [place] [phone] Dec, [facility] [address] [id number] [address] [place] [phone] Dec, [facility] [address] [id number] [address] [place] [phone] Nov, [facility] [address] [id number] [address] [place] [phone] Nov, [facility] [address] [id number] [address] [place] [phone] Oct, Type 1 diabetes mellitus wit hyperglycemia E10.65 [facility] [address] [id number] [address] [place] [phone] 17 Sep, 2016 [facility] [address] [id number] [address] [place] [phone] Sep, [facility] [address] [id number] [address] [place] [phone] Sep, Controlled diabetes mellitus type 1 without complications E10.9 [facility] [address] [id number] [address] [place] [phone] Sep, [facility] [address] [id number] [address] [place] [address] [id number] 13 Aug, 2016 Dental caries K02.9 [facility] [address] [id number] [address] [place] [phone] Aug, Type 1 diabetes mellitus wit h diabetic polyneuropathy E10.42 [facility] [address] [id number] [address] [place] [phone] Aug, [facility] [address] [facility] [id number] [address] [place] [phone] Aug, [facility] [address] [id number] [address] [place] [phone] Aug, [facility] [address] [id number] [address] [place] [phone] Jul, Type 1 diabetes mellitus wit h hyperglycemia E10.65 [facility] [address] [facility] [id number] [address] [place] [phone] Jul, Type 1 diabetes mellitus wit h hyperglycemia E10.65 ; Tooth pain K08.8 and Encounter for immunization Z23 [facility] [address] [id number] [address] [place] [address] [id number] 08 Jul, 2016 Dental examination Z01.20 [facility] [address] [id number] [address] [place] [id number] 08 Jul, 2016 [facility] [address] [facility] [id number] [address] [place] [phone] Jul, [facility] [address] [facility] [id number] [address] [place] [phone] Jul, [facility] [address] [id number] [address] [place] [phone] Jun, [facility] [address] [id number] [address] [place] [phone] May, [facility] [address] [id number] [address] [place] [phone] Apr, [facility] [address] [facility] [id number] [address] [place] [phone] Apr, [facility] [address] [id number] [address] [place] [phone] Apr, [facility] [address] [id number] [address] [place] [phone] March, [facility] [address] [id number] [address] [place] [phone] March, [facility] [address] [id number] [address] [place] [id number] Feb, [facility] [address] [id number] [address] [place] [phone] Feb, [facility] [address] [id number] [address] [place] [phone] Feb, Type 1 diabetes mellitus wit h hyperglycemia E10.65 [facility] [address] [id number] [address] [place] [phone] Jan, [facility] [address] [id number] [address] [place] [phone] Jan, [facility] [address] [id number] [address] [place] [phone] Jan, [facility] [address] [id number] [address] [place] [phone] Jan, [facility] [address] [facility] [id number] [address] [place] [phone] Dec, [facility] [address] [id number] [address] [place] [phone] Nov, [facility] [address] [id number] [address] [place] [phone] Nov, [facility] [address] [id number] [address] [place] [phone] Oct, [facility] [address] [id number] [address] [place] [phone] Oct, Type 1 diabetes mellitus wit h 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 ; Type 1 diabetes mellitus with hyperglycemia E10.65 ; Gastroparesis K31.84 and Esophageal stricture K22.2 [facility] [address] [id number] [address] [place] [phone] Oct, [facility] [address] [id number] [address] [place] [phone] Sep, [facility] [address] [facility] [id number] [address] [place] [phone] Sep, Type 1 diabetes mellitus wit h other diabetic neurological complication E10.49 [facility] [address] [id number] [address] [place] [phone] 22 Aug, 2015 Encounter for immunization Z 23 [facility] [address] [id number] [address] [place] [phone] 19 Aug, 2015 [facility] [address] [facility] [id number] [address] [place] [phone] Aug, [facility] [address] [id number] [address] [place] [phone] Jul, [facility] [address] [facility] [id number] [address] [place] [phone] Jul, [facility] [address] [facility] [id number] [address] [place] [id number] Jun, [facility] [address] [facility] [id number] [address] [place] [phone] Jun, [facility] [address] [id number] [address] [place] [phone] Jun, [facility] [address] [facility] [id number] [address] [place] [phone] May, [facility] [address] [facility] [id number] [address] [place] [phone] May, [facility] [address] [facility] [id number] [address] [place] [phone] May, Diabetes type 1, controlled 250.01 [facility] [address] [id number] [address] [place] [phone] May, [facility] [address] [id number] [address] [place] [phone] May, [facility] [address] [id number] [address] [place] [address] [id number] Apr, Dental examination V72.2 [facility] [address] [id number] [address] [place] [phone] Apr, [facility] [address] [id number] [address] [place] [id number] Apr, [facility] [address] [id number] [address] [place] [phone] Apr, [facility] [address] [id number] [address] [place] [phone] Apr, [facility] [address] [id number] [address] [place] [phone] Apr, [facility] [address] [id number] [address] [place] [address] [id number] Apr, Dental examination V72.2 [facility] [address] [id number] [address] [place] [phone] Apr, [facility] [address] [id number] [address] [place] [phone] Apr, [facility] [address] [id number] [address] [place] [phone] March, Diabetes mellitus type 1 250 .01 [facility] [address] [id number] [address] [place] [phone] March, [facility] [address] [id number] [address] [place] [phone] 14 Feb, 2015 [facility] [address] [id number] [address] [place] [phone] Feb, [facility] [address] [id number] [address] [place] [address] [place] [id number] Jan, [facility] [address] [id number] [address] [place] [address], [place] [phone] Jan, [facility] [address] [id number] [address] [place] [address], [place] [id number] Jan, [facility] [address] [id number] [address] [place] [address], [place] [address] Jan, [facility] [address] [id number] [address] [place] [address], [place] [address] Dec, [facility] [address] [id number] [address] [place] [address], [place] [address] Dec, [facility] [address] [id number] [address] [place] [address], [place] [address] Nov, [facility] [address] [id number] [address] [place] [address], [place] [address] Nov, [facility] [address] [id number] [address] [place] [address], [place] [address] Nov, [facility] [address] [id number] [address] [place] [address], [place] [id number] Nov, [facility] [address] [id number] [address] [place] [address], [place] [address] Nov, [facility] [address] [id number] [address] [place] [address], [place] [address] Nov, [facility] [address] [id number] [address] [place] [address], [place] [address] Nov, [facility] [address] [id number] [address] [place] [address], [place] [address] Oct, [facility] [address] [id number] [address] [place] [address], [place] [address] Oct, [facility] [address] [id number] [address] [place] [place] [address] [address] Sep, [facility] [address] [id number] [address] [place] [address], [place] [address] Aug, [facility] [address] [id number] [address] [place] [address], [place] [address] Aug, [facility] [address] [id number] [address] [place] [address], [place] [address] Aug, [facility] [address] [id number] [address] [place] [address], [place] [address] Aug, [facility] [address] [id number] [address] [place] [address], [place] [address] Aug, [facility] [address] [id number] [address] [place] [address], [place] [address] Aug, [facility] [address] [id number] [address] [place] [address], [place] [address] Aug, [facility] [address] [id number] [address] [place] [address], [place] [address] Aug, [facility] [address] [id number] [address] [place] [address], [place] [address] Aug, [facility] [address] [id number] [address] [place] [address], [place] [address] Aug, [facility] [address] [id number] [address] [place] [address], [place] [address] Aug, [facility] [address] [id number] [address] [place] [address], [place] [address] Aug, [facility] [address] [id number] [address] [place] [address], [place] [address] Aug, [facility] [address] [id number] [address] [place] [address], [place] [address] Aug, [facility] [address] [id number] [address] [place] [address], [place] [address] Jul, [facility] [address] [id number] [address] [place] [address], [place] [address] Jul, [facility] [address] [id number] [address] [place] [address], [place] [address] Jul, [facility] [address] [id number] [address] [place] [address], [place] [address] Jul, [facility] [address] [id number] [address] [place] [address], [place] [address] Jun, [facility] [address] [id number] [address] [place] [address], [place] [address] Jun, [facility] [address] [id number] [address] [place] [address], [place] [address] Jun, [facility] [address] [id number] [address] [place] [address], [place] [address] Jun, [facility] [address] [id number] [address] [place] [address], [place] [address] May, [facility] [address] [id number] [address] [place] [address], [place] [address] May, [facility] [address] [id number] [address] [place] [address], [place] [address] May, [facility] [address] [id number] [address] [place] [address], [place] [address] May, [facility] [address] [id number] [address] [place] [address], [place] [address] May, [facility] [address] [id number] [address] [place] [address], [place] [address] May, [facility] [address] [id number] [address] [place] [address], [place] [address] May, [facility] [address] [id number] [address] [place] [address], [place] [address] May, [facility] [address] [id number] [address] [place] [address], [place] [address] May, [facility] [address] [id number] [facility] [place] [address] May, [facility] [address] [id number] [facility] [place] [address] May, [facility] [address] [id number] [facility] [place] [address] May, [facility] [address] [id number] [address] [place] [address], [place] [address] May, [facility] [address] [id number] [address] [place] [address], [place] [address] Apr, [facility] [address] [id number] [address] [place] [address], [place] [address] Apr, [facility] [address] [id number] [address] [place] [address], [place] [address] Apr, [facility] [address] [id number] [address] [place] [address], [place] [address] Apr, [facility] [address] [id number] [address] [place] [address], [place] [address] Apr, [facility] [address] [id number] [address] [place] [address], [place] [address] Apr, [facility] [address] [id number] [address] [place] [address], [place] [address] Apr, [facility] [address] [id number] [address] [place] [address], [place] [address] Apr, [facility] [address] [id number] [address] [place] [address], [place] [address] Apr, [facility] [address] [id number] [address] [place] [address], [place] [address] Apr, [facility] [address] [id number] [address] [place] [address], [place] [address] Apr, [facility] [address] [id number] [address] [place] [address], [place] [address] Apr, [facility] [address] [id number] [address] [place] [address], [place] [address] Apr, [facility] [address] [id number] [address] [place] [address], [place] [address] Apr, [facility] [address] [id number] [address] [place] [address], [place] [address] March, [facility] [address] [id number] [address] [place] [address], [place] [address] March, [facility] [address] [id number] [address] [place] [address], [place] [address] March, [facility] [address] [id number] [address] [place] [address], [place] [address] March, [facility] [address] [id number] [address] [place] [address], [place] [address] March, [facility] [address] [id number] [address] [place] [address], [place] [address] March, [facility] [address] [id number] [address] [place] [address], [place] [address] March, [facility] [address] [id number] [address] [place] [address], [place] [address] March, [facility] [address] [id number] [address] [place] [address], [place] [address] March, [facility] [address] [id number] [address] [place] [address], [place] [address] March, [facility] [address] [id number] [address] [place] [address], [place] [address] Feb, [facility] [address] [id number] [address] [place] [address], [place] [address] Feb, [facility] [address] [id number] [address] [place] [address], [place] [address] Feb, [facility] [address] [id number] [address] [place] [address], [place] [address] Feb, [facility] [address] [id number] [facility] [place] [address] Feb, [facility] [address] [id number] [address] [place] [address], [place] [address] Feb, [facility] [address] [id number] [address] [place] [address], [place] [address] Feb, [facility] [address] [id number] [address] [place] [address], [place] [address] Feb, [facility] [address] [id number] [address] [place] [address], [place] [address] Jan, [facility] [address] [id number] [address] [place] [address], [place] [address] Jan, [facility] [address] [id number] [address] [place] [address], [place] [address] Jan, [facility] [address] [id number] [address] [place] [address], [place] [address] Jan, [facility] [address] [id number] [address] [place] [address], [place] [address] Jan, [facility] [address] [id number] [address] [place] [address], [place] [address] Jan, [facility] [address] [id number] [address] [place] [address], [place] [address] Jan, [facility] [address] [id number] [address] [place] [address], [place] [address] Jan, [facility] [address] [id number] [address] [place] [address], [place] [address] Jan, [facility] [address] [id number] [address] [place] [address], [place] [address] Jan, [facility] [address] [id number] [address] [place] [address], [place] [address] Dec, [facility] [address] [id number] [address] [place] [address], [place] [address] Dec, [facility] [address] [id number] [address] [place] [address], [place] [address] Nov, [facility] [address] [id number] [address] [place] [address], [place] [address] Nov, [facility] [address] [id number] [address] [place] [address], [place] [address] Nov, [facility] [address] [id number] [address] [place] [address], [place] [address] Nov, [facility] [address] [id number] [address] [place] [address], [place] [address] Nov, [facility] [address] [id number] [address] [place] [address], [place] [address] Nov, [facility] [address] [id number] [address] [place] [address], [place] [address] Nov, [facility] [address] [id number] [address] [place] [address], [place] [address] Nov, [facility] [address] [id number] [address] [place] [address], [place] [address] Oct, [facility] [address] [id number] [address] [place] [address], [place] [address] Oct, [facility] [address] [id number] [address] [place] [address], [place] [address] Oct, [facility] [address] [id number] [address] [place] [address], [place] [address] Oct, [facility] [address] [id number] [address] [place] [address], [place] [address] Oct, [facility] [address] [id number] [address] [place] [address], [place] [address] 04 Oct, 2013 [facility] [address] [id number] [address] [place] [address], [place] [address] Sep, [facility] [address] [id number] [address] [place] [address], [place] [address] Sep, [facility] [address] [id number] [address] [place] [address], [place] [address] Sep, [facility] [address] [id number] [address] [place] [address], [place] [address] Sep, [facility] [address] [id number] [address] [place] [address], [place] [address] Sep, [facility] [address] [id number] [address] [place] [address], [place] [address] Aug, [facility] [address] [id number] [address] [place] [address], [place] [address] Aug, [facility] [address] [id number] [address] [place] [address], [place] [address] Aug, [facility] [address] [id number] [address] [place] [address] Aug, [facility] [address] [id number] [address] [place] [address], [place] [address] Aug, [facility] [address] [id number] [address] [place] [address] Aug, [facility] [address] [id number] [address] [place] [address] Jul, [facility] [address] [id number] [address] [place] [address] Jul, [facility] [address] [id number] [address] [place] [address], [place] [address] Jul, [facility] [address] [id number] [address] [place] [address] Jun, [facility] [address] [id number] [address] [place] [address], [place] [address] Jun, [facility] [address] [id number] [address] [place] [address], [place] [address] May, [facility] [address] [id number] [address] [place] [address], [place] [address] May, [facility] [address] [id number] [address] [place] [address], [place] [address] Apr, [facility] [address] [id number] [address] [place] [address], [place] [address] Apr, [facility] [address] [id number] [address] [place] [address], [place] [address] Apr, [facility] [address] [id number] [address] [place] [address], [place] [address] March, [facility] [address] [id number] [address] [place] [address], [place] [address] Feb, [facility] [address] [id number] [address] [place] [address], [place] [address] Feb, [facility] [address] [id number] [address] [place] [address], [place] [address] Jan, [facility] [address] [id number] [address] [place] [address], [place] [address] Jan, [facility] [address] [id number] [address] [place] [address], [place] [address] Jan, [facility] [address] [id number] [address] [place] [address], [place] [address] 08 Jan, 2013 [facility] [address] [id number] [address] [place] [address], [place] [address] 06 Jan, 2013 [facility] [address] [id number] [address] [place] [address], [place] [address] 28 Dec, 2012 [facility] [address] [id number] [address] [place] [address], [place] [address] 27 Dec, 2012 [facility] [address] [id number] [address] [place] [address], [place] [address] Dec, [facility] [address] [id number] [address] [place] [address], [place] [address] Dec, [facility] [address] [id number] [address] [place] [address], [place] [address] Dec, [facility] [address] [id number] [address] [place] [address], [place] [address] Dec, [facility] [address] [place] [id number] Nov, [facility] [address] [id number] [address] [place] [address], [place] [address] Nov, [facility] [address] [id number] [address] [place] [address], [place] [address] Nov, [facility] [address] [id number] [address] [place] [address], [place] [address] Nov, [facility] [address] [id number] [address] [place] [address], [place] [address] Nov, [facility] [address] [id number] [address] [place] [address], [place] [address] Oct, [facility] [address] [id number] [address] [place] [address], [place] [address] Oct, [facility] [address] [id number] [address] [place] [address], [place] [address] Oct, [facility] [address] [id number] [address] [place] [address], [place] [address] Oct, [facility] [address] [id number] [address] [place] [address], [place] [address] Oct, [facility] [address] [id number] [address] [place] [address], [place] [address] Oct, [facility] [address] [id number] [address] [place] [address], [place] [address] Oct, [facility] [address] [id number] [address] [place] [address] Oct, [facility] [address] [id number] [address] [place] [address], [place] [address] Sep, [facility] [address] [id number] [address] [place] [address], [place] [address] Sep, [facility] [address] [id number] [address] [place] [address], [place] [address] Sep, [facility] [address] [id number] [address] [place] [address], [place] [address] Sep, [facility] [address] [id number] [address] [place] [address], [place] [address] Sep, [facility] [address] [id number] [address] [place] [address], [place] [address] Sep, [facility] [address] [id number] [address] [place] [address], [place] [address] Sep, [facility] [address] [id number] [address] [place] [address], [place] [address] Sep, [facility] [address] [id number] [address] [place] [address], [place] [address] Sep, [facility] [address] [id number] [address] [place] [address], [place] [address] Sep, [facility] [address] [id number] [address] [place] [address], [place] [address] Sep, [facility] [address] [id number] [address] [place] [address], [place] [address] Sep, [facility] [address] [id number] [address] [place] [address], [place] [address] Sep, [facility] [address] [id number] [address] [place] [address], [place] [address] Sep, [facility] [address] [id number] [address] [place] [address], [place] [address] Sep, [facility] [address] [id number] [address] [place] [address] Sep, IMMUNIZATIONS No Known Immunizations SOCIAL HISTORY Never Assessed REASON FOR VISIT [place] [place] VITAL SIGNS MEDICATIONS Unknown Medications RESULTS No Results PROCEDURES No Known procedures INSTRUCTIONS MEDICATIONS ADMINISTERED No Known Medications MEDICAL (GENERAL) HISTORY Type Description Date Medical History hypertension Medical History type I diabetes Medical History chronic renal insufficiency Surgical History gastric pacemaker 2008 Hospitalization History nausea 2012
--- OUTSIDE RECORDS SUMMARY | 2020-04-17 21:36 | XMS REPORT ---
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 Active 48167388 Problem Type 1 diabetes mellitus with other diab etic neurological complication E10.49 Active 72383569 Problem Gastroparesis K31.84 Active 694954 006 Problem Type 1 diabetes mellitus with hyperglycemia E10.65 Active 333093275075841 Problem 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 Active 44620668 ALLERGIES No Information ENCOUNTERS Encounter Location Date Diagnosis [facility] [address] [facility] [id number] [address] [place] [id number] Nov, [place] [id number] [place] [phone] Nov, [facility] [address] [facility] [id number] [address] [place] [address] [id number] 18 Oct, 2018 Dental examination Z01.20 [place] [address] N [place] [id number] [address] [place] [phone] 14 Oct, 2018 Cutaneous abscess of unspeci fied foot L02.619 and Cellulitis of unspecified part of limb L03.119 [place] [address] N [place] [id number] [address] [place] [phone] 11 Oct, 2018 [facility] [address] [place] [id number] [address] [place] [phone] 10 Oct, 2018 Type 1 diabetes mellitus wit h other diabetic neurological complication E10.49 [facility] [address] [id number] [address] [place] [address] [id number] 06 Oct, 2018 Dental examination Z01.20 an d Caries K02.9 [facility] [address] [facility] [id number] [address] [place] [phone] 04 Oct, 2018 Cutaneous abscess of left fo ot L02.612 and Cellulitis of left lower limb L03.116 [facility] [address] [facility] [id number] [address] [place] [phone] 04 Oct, 2018 Dental examination Z01.20 an d Pain, dental K08.89 [facility] [address] [facility] [id number] [address] [place] [id number] Sep, Left foot pain M79.672 and L eft anterior knee pain M25.562 [facility] [address] [facility] [id number] [address] [place] [phone] Sep, Type 1 diabetes mellitus wit h other diabetic neurological complication E10.49 [facility] [address] [facility] [id number] [address] [place] [phone] Sep, [facility] [address] [facility] [id number] [address] [place] [phone] 11 Aug, 2018 Type 1 diabetes mellitus wit h other diabetic neurological complication E10.49 [facility] [address] [facility] [id number] [address] [place] [phone] 10 Aug, 2018 Encounter for immunization Z 23 [facility] [address] [facility] [id number] [address] [place] [phone] 05 Aug, 2018 Type 1 diabetes mellitus wit h hyperglycemia E10.65 [facility] [address] [facility] [id number] [address] [place] [phone] Jul, Type 1 diabetes mellitus wit h hyperglycemia E10.65 [facility] [address] [facility] [id number] [address] [place] [phone] 19 Jul, 2018 [facility] [address] [facility] [id number] [address] [place] [phone] Jul, [facility] [address] [id number] [address] [place] [phone] Jul, Type 1 diabetes mellitus wit h other diabetic neurological complication E10.49 [facility] [address] [id number] [address] [place] [phone] Jul, Type 1 diabetes mellitus wit h other diabetic neurological complication E10.49 and Mood disorder F39 [facility] [address] [id number] [address] [place] [phone] Jun, [facility] [address] [id number] [address] [place] [phone] Jun, Type 1 diabetes mellitus wit h other diabetic neurological complication E10.49 and Chronic fatigue R53.82 [facility] [address] [id number] [address] [place] [phone] May, Type 1 diabetes mellitus wit h other diabetic neurological complication E10.49 [facility] [address] [id number] [address] [place] [phone] May, [facility] [address] [id number] [address] [place] [address] May, [facility] [address] [id number] [address] [place] [phone] Apr, [facility] [address] [id number] [address] [place] [phone] Apr, Type 1 diabetes mellitus wit h other diabetic neurological complication E10.49 [facility] [address] [id number] [address] [place] [phone] March, [facility] [address] [id number] [address] [place] [id number] Feb, [facility] [address] [facility] [id number] [address] [place] [phone] Feb, Type 1 diabetes mellitus wit h other diabetic neurological complication E10.49 ; Tobacco abuse Z72.0 and Tobacco abuse counseling Z71.6 [facility] [address] [facility] [id number] [address] [place] [address] Jan, Type 1 diabetes mellitus wit h hyperglycemia E10.65 [facility] [address] [facility] [id number] [address] [place] [id number] Jan, [facility] [address] [facility] [id number] [address] [place] [phone] Dec, Tobacco abuse Z72.0 [facility] [address] [facility] [id number] [address] [place] [id number] Dec, Type 1 diabetes mellitus wit h hyperglycemia E10.65 [facility] [address] [facility] [id number] [address] [place] [phone] Dec, Type 1 diabetes mellitus wit h hyperglycemia E10.65 ; Tobacco abuse Z72.0 and Tobacco abuse counseling Z71.6 [facility] [address] [facility] [id number] [address] [place] [phone] Nov, Type 1 diabetes mellitus wit h hyperglycemia E10.65 [facility] [address] [facility] [id number] [address] [place] [phone] Oct, Type 1 diabetes mellitus wit h hyperglycemia E10.65 [facility] [address] [facility] [id number] [address] [place] [address] Oct, Type 1 diabetes mellitus wit h hyperglycemia E10.65 [facility] [address] [place] [id number] [address] [place] [address] Sep, Type 1 diabetes mellitus wit h hyperglycemia E10.65 [facility] [address] [facility] [id number] [address] [place] [phone] Aug, Type 1 diabetes mellitus wit h hyperglycemia E10.65 [facility] [address] [facility] [id number] [address] [place] [phone] Aug, [facility] [address] [facility] [id number] [address] [place] [address] Aug, Type 1 diabetes mellitus wit h hyperglycemia E10.65 [facility] [address] [id number] [address] [place] [phone] 12 Aug, 2017 Encounter for immunization Z 23 [facility] [address] [id number] [address] [place] [phone] 11 Aug, 2017 Type 1 diabetes mellitus wit h hyperglycemia E10.65 [facility] [address] [id number] [address] [place] [address] Jul, Type 1 diabetes mellitus wit h hyperglycemia E10.65 [facility] [address] [id number] [address] [place] [address] Jul, Type 1 diabetes mellitus wit h hyperglycemia E10.65 [facility] [address] [id number] [address] [place] [address] May, Type 1 diabetes mellitus wit h hyperglycemia E10.65 [facility] [address] [id number] [address] [place] [phone] May, [facility] [address] [id number] [address] [place] [phone] Apr, [facility] [address] [id number] [address] [place] [address] Apr, Type 1 diabetes mellitus wit h hyperglycemia E10.65 [facility] [address] [id number] [address] [place] [address] March, [facility] [address] [id number] [address] [place] [address] March, [facility] [address] [id number] [address] [place] [address] Jan, [facility] [address] [id number] [address] [place] [id number] Jan, [facility] [address] [facility] [id number] [address] [place] [phone] Jan, Type 1 diabetes mellitus wit h diabetic polyneuropathy E10.42 [facility] [address] [id number] [address] [place] [address] Jan, Type 1 diabetes mellitus wit h hyperglycemia E10.65 ; Excessive cerumen in both ear canals H61.23 and Controlled diabetes mellitus type 1 without complications E10.9 [facility] [address] [id number] [address] [place] [phone] 16 Dec, 2016 [facility] [address] [id number] [address] [place] [phone] Dec, [facility] [address] [id number] [address] [place] [phone] Dec, [facility] [address] [id number] [address] [place] [phone] Dec, [facility] [address] [facility] [id number] [address] [place] [phone] Nov, [facility] [address] [id number] [address] [place] [phone] Nov, [facility] [address] [id number] [address] [place] [phone] Oct, Type 1 diabetes mellitus wit h hyperglycemia E10.65 [facility] [address] [id number] [address] [place] [phone] Sep, [facility] [address] [facility] [id number] [address] [place] [address] Sep, [facility] [address] [facility] [id number] [address] [place] [phone] Sep, Controlled diabetes mellitus type 1 without complications E10.9 [facility] [address] [id number] [address] [place] [phone] Sep, [facility] [address] [id number] [address] [place] [address] [id number] Aug, Dental caries K02.9 [facility] [address] [facility] [id number] [address] [place] [address] Aug, Type 1 diabetes mellitus wit h diabetic polyneuropathy E10.42 [facility] [address] [id number] [address] [place] [address] Aug, [facility] [address] [id number] [address] [place] [phone] Aug, [facility] [address] [id number] [address] [place] [phone] Aug, [facility] [address] [id number] [address] [place] [phone] Jul, Type 1 diabetes mellitus wit h hyperglycemia E10.65 [facility] [address] [id number] [address] [place] [address] Jul, Type 1 diabetes mellitus wit h hyperglycemia E10.65 ; Tooth pain K08.8 and Encounter for immunization Z23 [facility] [address] [id number] [address] [place] [address] [id number] 08 Jul, 2016 Dental examination Z01.20 [facility] [address] [id number] [address] [place] [address] Jul, [facility] [address] [id number] [address] [place] [phone] Jul, [facility] [address] [id number] [address] [place] [phone] Jul, [facility] [address] [id number] [address] [place] [phone] Jun, [facility] [address] [id number] [address] [place] [phone] May, [facility] [address] [id number] [address] [place] [phone] Apr, [facility] [address] [id number] [address] [place] [phone] Apr, [facility] [address] [id number] [address] [place] [address] Apr, [facility] [address] [id number] [address] [place] [address] March, [facility] [address] [id number] [address] [place] [phone] March, [facility] [address] [facility] [id number] [address] [place] [address] Feb, [facility] [address] [facility] [id number] [address] [place] [address] Feb, [facility] [address] [facility] [id number] [address] [place] [address] Feb, Type 1 diabetes mellitus wit h hyperglycemia E10.65 [facility] [address] [facility] [id number] [address] [place] [phone] Jan, [facility] [address] [facility] [id number] [address] [place] [phone] Jan, [facility] [address] [facility] [id number] [address] [place] [phone] Jan, [facility] [address] [facility] [id number] [address] [place] [phone] Jan, [facility] [address] [facility] [id number] [address] [place] [phone] Dec, [facility] [address] [facility] [id number] [address] [place] [phone] Nov, [facility] [address] [facility] [id number] [address] [place] [phone] Nov, [facility] [address] [facility] [id number] [address] [place] [phone] Oct, [facility] [address] [facility] [id number] [address] [place] [phone] Oct, Type 1 diabetes mellitus wit h 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 ; Type 1 diabetes mellitus with hyperglycemia E10.65 ; Gastroparesis K31.84 and Esophageal stricture K22.2 [facility] [address] [id number] [address] [place] [address] Oct, [facility] [address] [id number] [address] [place] [address] Sep, [facility] [address] [id number] [address] [place] [address] Sep, Type 1 diabetes mellitus wit h other diabetic neurological complication E10.49 [facility] [address] [id number] [address] [place] [address] Aug, Encounter for immunization Z 23 [facility] [address] [id number] [address] [place] [phone] Aug, [facility] [address] [id number] [address] [place] [phone] Aug, [facility] [address] [id number] [address] [place] [phone] Jul, [facility] [address] [id number] [address] [place] [phone] Jul, [facility] [address] [id number] [address] [place] [phone] Jun, [facility] [address] [id number] [address] [place] [phone] Jun, [facility] [address] [id number] [address] [place] [phone] Jun, [facility] [address] [id number] [address] [place] [phone] May, [facility] [address] [id number] [address] [place] [phone] May, [facility] [address] [id number] [address] [place] [address] May, Diabetes type 1, controlled 250.01 [facility] [address] [id number] [address] [place] [address] May, [facility] [address] [id number] [address] [place] [address] May, [facility] [address] [id number] [address] [place] [address] [id number] Apr, Dental examination V72.2 [facility] [address] [id number] [address] [place] [phone] Apr, [facility] [address] [id number] [address] [place] [phone] Apr, [facility] [address] [id number] [address] [place] [phone] Apr, [facility] [address] [id number] [address] [place] [phone] Apr, [facility] [address] [id number] [address] [place] [phone] Apr, [facility] [address] [id number] [address] [place] [address] [id number] Apr, Dental examination V72.2 [facility] [address] [id number] [address] [place] [phone] Apr, [facility] [address] [id number] [address] [place] [phone] Apr, [facility] [address] [id number] [address] [place] [address] March, Diabetes mellitus type 1 250 .01 [facility] [address] [id number] [address] [place] [phone] March, [facility] [address] [id number] [address] [place] [phone] Feb, [facility] [address] [id number] [address] [place] [phone] Feb, [facility] [address] [id number] [address] [place] [phone] Jan, [facility] [address] [id number] [address] [place] [address], [place] [address] Jan, [facility] [address] [id number] [address] [place] [address], [place] [address] Jan, [facility] [address] [id number] [address] [place] [address], [place] [address] Jan, [facility] [address] [id number] [address] [place] [address], [place] [address] Dec, [facility] [address] [id number] [address] [place] [address], [place] [address] Dec, [facility] [address] [id number] [address] [place] [address], [place] [address] Nov, [facility] [address] [id number] [address] [place] [address], [place] [address] Nov, [facility] [address] [id number] [address] [place] [address], [place] [address] Nov, [facility] [address] [id number] [address] [place] [address], [place] [address] Nov, [facility] [address] [id number] [address] [place] [address], [place] [address] Nov, [facility] [address] [id number] [address] [place] [address], [place] [address] Nov, [facility] [address] [id number] [address] [place] [address], [place] [address] Nov, [facility] [address] [id number] [address] [place] [address], [place] [address] Oct, [facility] [address] [id number] [address] [place] [address], [place] [address] Oct, [facility] [address] [id number] [address] [place] [address], [place] [address] Sep, [facility] [address] [id number] [address] [place] [address], [place] [address] Aug, [facility] [address] [id number] [address] [place] [address], [place] [address] Aug, [facility] [address] [id number] [address] [place] [address], [place] [address] Aug, [facility] [address] [id number] [address] [place] [address], [place] [address] Aug, [facility] [address] [id number] [address] [place] [address], [place] [address] Aug, [facility] [address] [id number] [address] [place] [address], [place] [address] Aug, [facility] [address] [id number] [address] [place] [address], [place] [address] Aug, [facility] [address] [id number] [address] [place] [address], [place] [address] Aug, [facility] [address] [id number] [address] [place] [address], [place] [address] Aug, [facility] [address] [id number] [address] [place] [address], [place] [address] Aug, [facility] [address] [id number] [address] [place] [address], [place] [address] Aug, [facility] [address] [id number] [address] [place] [address], [place] [address] Aug, [facility] [address] [id number] [address] [place] [address] Aug, [facility] [address] [id number] [address] [place] [address], [place] [address] Aug, [facility] [address] [id number] [address] [place] [address], [place] [address] Jul, [facility] [address] [id number] [address] [place] [address], [place] [address] Jul, [facility] [address] [id number] [address] [place] [address] [place] [address] Jul, [facility] [address] [id number] [address] [place] [address], [place] [address] Jul, [facility] [address] [id number] [address] [place] [address], [place] [address] Jun, [facility] [address] [id number] [address] [place] [address], [place] [address] Jun, [facility] [address] [id number] [address] [place] [address], [place] [address] Jun, [facility] [address] [id number] [address] [place] [address], [place] [address] Jun, [facility] [address] [id number] [address] [place] [address], [place] [address] May, [facility] [address] [id number] [address] [place] [address], [place] [address] May, [facility] [address] [id number] [address] [place] [address], [place] [address] May, [facility] [address] [id number] [address] [place] [address], [place] [address] May, [facility] [address] [id number] [address] [place] [address], [place] [address] May, [facility] [address] [id number] [address] [place] [address], [place] [address] May, [facility] [address] [id number] [address] [place] [address], [place] [address] May, [facility] [address] [id number] [address] [place] [address], [place] [address] May, [facility] [address] [id number] [address] [place] [address], [place] [address] May, [facility] [address] [id number] [address] [place] [address], [place] [address] May, [facility] [address] [id number] [facility] [place] [address] May, [facility] [address] [id number] [facility] [place] [address] May, [facility] [address] [id number] [facility] [place] [address] May, [facility] [address] [id number] [facility] [place] [address] Apr, [facility] [address] [id number] [address] [place] [address], [place] [address] Apr, [facility] [address] [id number] [address] [place] [address], [place] [address] Apr, [facility] [address] [id number] [address] [place] [address], [place] [address] Apr, [facility] [address] [id number] [address] [place] [address], [place] [address] Apr, [facility] [address] [id number] [address] [place] [address], [place] [address] Apr, [facility] [address] [id number] [address] [place] [address], [place] [address] Apr, [facility] [address] [id number] [address] [place] [address], [place] [address] Apr, [facility] [address] [id number] [address] [place] [address], [place] [address] Apr, [facility] [address] [id number] [address] [place] [address], [place] [address] Apr, [facility] [address] [id number] [address] [place] [address], [place] [address] Apr, [facility] [address] [id number] [address] [place] [address], [place] [address] Apr, [facility] [address] [id number] [address] [place] [address], [place] [address] Apr, [facility] [address] [id number] [facility] [place] [address] Apr, [facility] [address] [id number] [address] [place] [address], [place] [address] March, [facility] [address] [id number] [address] [place] [address], [place] [address] March, [facility] [address] [id number] [address] [place] [address], [place] [address] March, [facility] [address] [id number] [address] [place] [address], [place] [address] March, [facility] [address] [id number] [address] [place] [address], [place] [address] March, [facility] [address] [id number] [address] [place] [address], [place] [address] March, [facility] [address] [id number] [address] [place] [address], [place] [address] March, [facility] [address] [id number] [address] [place] [address], [place] [address] March, [facility] [address] [id number] [address] [place] [address], [place] [address] March, [facility] [address] [id number] [address] [place] [address], [place] [address] March, [facility] [address] [id number] [address] [place] [address], [place] [address] Feb, [facility] [address] [id number] [address] [place] [address], [place] [address] Feb, [facility] [address] [id number] [address] [place] [address], [place] [address] Feb, [facility] [address] [id number] [address] [place] [address], [place] [address] Feb, [facility] [address] [id number] [facility] [place] [address] 10 Feb, 2014 [facility] [address] [id number] [facility] [place] [address] 10 Feb, 2014 [facility] [address] [id number] [facility] [place] [address] Feb, [facility] [address] [id number] [address] [place] [address], [place] [address] Feb, [facility] [address] [id number] [address] [place] [address], [place] [address] Jan, [facility] [address] [id number] [address] [place] [address], [place] [address] Jan, [facility] [address] [id number] [address] [place] [address], [place] [address] Jan, [facility] [address] [id number] [address] [place] [address], [place] [address] Jan, [facility] [address] [id number] [address] [place] [address], [place] [address] Jan, [facility] [address] [id number] [address] [place] [address], [place] [address] Jan, [facility] [address] [id number] [address] [place] [address], [place] [address] Jan, [facility] [address] [id number] [address] [place] [address], [place] [address] Jan, [facility] [address] [id number] [address] [place] [address], [place] [address] Jan, [facility] [address] [id number] [address] [place] [address], [place] [address] Jan, [facility] [address] [id number] [address] [place] [address], [place] [address] Dec, [facility] [address] [id number] [address] [place] [address], [place] [address] Dec, [facility] [address] [id number] [address] [place] [address], [place] [address] Nov, [facility] [address] [id number] [address] [place] [address], [place] [address] Nov, [facility] [address] [id number] [address] [place] [address], [place] [address] Nov, [facility] [address] [id number] [address] [place] [address], [place] [address] Nov, [facility] [address] [id number] [address] [place] [address], [place] [address] Nov, [facility] [address] [id number] [address] [place] [address], [place] [address] Nov, [facility] [address] [id number] [address] [place] [address], [place] [address] Nov, [facility] [address] [id number] [address] [place] [address], [place] [address] Nov, [facility] [address] [id number] [address] [place] [address], [place] [address] Oct, [facility] [address] [id number] [address] [place] [address], [place] [address] Oct, [facility] [address] [id number] [address] [place] [address], [place] [address] Oct, [facility] [address] [id number] [address] [place] [address] Oct, [facility] [address] [id number] [address] [place] [address], [place] [address] Oct, [facility] [address] [id number] [address] [place] [address], [place] [address] Oct, [facility] [address] [id number] [address] [place] [address], [place] [address] Sep, [facility] [address] [id number] [address] [place] [address] Sep, [facility] [address] [id number] [address] [place] [address], [place] [address] Sep, [facility] [address] [id number] [address] [place] [address], [place] [address] Sep, [facility] [address] [id number] [address] [place] [address], [place] [address] Sep, [facility] [address] [id number] [address] [place] [address], [place] [address] Aug, [facility] [address] [id number] [address] [place] [address], [place] [address] Aug, [facility] [address] [id number] [address] [place] [address], [place] [address] Aug, [facility] [address] [id number] [address] [place] [address], [place] [address] Aug, [facility] [address] [id number] [address] [place] [address], [place] [address] Aug, [facility] [address] [id number] [address] [place] [address], [place] [address] Aug, [facility] [address] [id number] [address] [place] [address], [place] [address] Jul, [facility] [address] [id number] [address] [place] [address], [place] [address] Jul, [facility] [address] [id number] [address] [place] [address], [place] [address] Jul, [facility] [address] [id number] [address] [place] [address], [place] [address] Jun, [facility] [address] [id number] [address] [place] [address], [place] [address] Jun, [facility] [address] [id number] [address] [place] [address], [place] [address] May, [facility] [address] [id number] [address] [place] [address], [place] [address] 10 May, 2013 [facility] [address] [id number] [address] [place] [address], [place] [address] 11 Apr, 2013 [facility] [address] [id number] [address] [place] [address], [place] [address] 07 Apr, 2013 [facility] [address] [id number] [address] [place] [address], [place] [address] Apr, [facility] [address] [id number] [address] [place] [address], [place] [address] March, [facility] [address] [id number] [address] [place] [address], [place] [address] Feb, [facility] [address] [id number] [address] [place] [address], [place] [address] Feb, [facility] [address] [id number] [address] [place] [address], [place] [address] Jan, [facility] [address] [id number] [address] [place] [address], [place] [address] Jan, [facility] [address] [id number] [address] [place] [address], [place] [address] Jan, [facility] [address] [id number] [address] [place] [address], [place] [address] Jan, [facility] [address] [id number] [address] [place] [address], [place] [address] Jan, [facility] [address] [id number] [address] [place] [address], [place] [address] Dec, [facility] [address] [id number] [address] [place] [address], [place] [address] Dec, [facility] [address] [id number] [address] [place] [address], [place] [address] 18 Dec, 2012 [facility] [address] [id number] [address] [place] [address], [place] [address] Dec, [facility] [address] [id number] [address] [place] [address], [place] [address] Dec, [facility] [address] [id number] [address] [place] [address], [place] [address] Dec, [facility] [address] [place] [id number] Nov, [facility] [address] [id number] [address] [place] [address], [place] [address] Nov, [facility] [address] [id number] [address] [place] [address], [place] [address] Nov, [facility] [address] [id number] [address] [place] [address], [place] [address] Nov, [facility] [address] [id number] [address] [place] [address], [place] [address] Nov, [facility] [address] [id number] [address] [place] [address], [place] [address] Oct, [facility] [address] [id number] [address] [place] [address], [place] [address] Oct, [facility] [address] [id number] [address] [place] [address], [place] [address] Oct, [facility] [address] [id number] [address] [place] [address], [place] [address] Oct, [facility] [address] [id number] [address] [place] [address], [place] [address] Oct, [facility] [address] [id number] [address] [place] [address], [place] [address] Oct, [facility] [address] [id number] [address] [place] [address], [place] [address] Oct, [facility] [address] [id number] [address] [place] [address], [place] [address] Oct, [facility] [address] [id number] [address] [place] [address], [place] [address] Sep, [facility] [address] [id number] [address] [place] [address], [place] [address] Sep, [facility] [address] [id number] [address] [place] [address], [place] [address] Sep, [facility] [address] [id number] [address] [place] [address], [place] [address] Sep, [facility] [address] [id number] [address] [place] [address], [place] [address] Sep, [facility] [address] [id number] [address] [place] [address], [place] [address] Sep, [facility] [address] [id number] [address] [place] [address], [place] [address] Sep, [facility] [address] [id number] [address] [place] [address], [place] [address] Sep, [facility] [address] [id number] [address] [place] [address], [place] [address] Sep, [facility] [address] [id number] [address] [place] [address], [place] [address] Sep, [facility] [address] [id number] [address] [place] [address], [place] [address] Sep, [facility] [address] [id number] [address] [place] [address], [place] [address] Sep, [facility] [address] [id number] [address] [place] [address] Sep, [facility] [address] [id number] [address] [place] [address] Sep, [facility] [address] [id number] [address] [place] [address] Sep, [facility] [address] [id number] [address] [place] [address] Sep, IMMUNIZATIONS No Known Immunizations SOCIAL HISTORY Never Assessed REASON FOR VISIT Dental Assessment PLAN OF CARE Activity Details Follow Up natalia Reason:dental exam/tx VITAL SIGNS MEDICATIONS Unknown Medications RESULTS No Results PROCEDURES Procedure Date Ordered Result Body Site SCREENING OF A PATIENT Oct 24, 2018 Billing Notes on claim Oct 24, 2018 INSTRUCTIONS MEDICATIONS ADMINISTERED No Known Medications MEDICAL (GENERAL) HISTORY Type Description Date Medical History hypertension Medical History type I diabetes Medical History chronic renal insufficiency Surgical History gastric pacemaker 2008 Hospitalization History nausea 2011
--- OUTSIDE RECORDS SUMMARY | 2020-04-17 21:36 | XMS REPORT ---
Author Author Curt PATIÑO Organization [facility] Address [address] [place] [address] Care Team Providers Care Glass Crusher Name Role Phone BISMARK PATIÑO Unavailable PROBLEMS Type Condition ICD9-CM Code QDP65-GA Code Onset Dates Condition S tatus SNOMED Code Problem Hypertension, essential I10 Active 85733117 Problem Gastroparesis K31.84 Active 415992 006 Problem Type 1 diabetes mellitus with other diab etic neurological complication E10.49 Active 68980200 Problem Controlled diabetes mellitus type 1 without complications E10.9 Active 03966102 Problem Mood disorder F39 Active 538617 05 Problem Other chronic pain G89.29 Active 8 2711351 Problem 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 Active 34468531 Problem Type 1 diabetes mellitus with hyperglycemia E10.65 Active [id number] Problem Type 1 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 Active 97930988 Problem Chronic fatigue R53.82 Active 8422 9001 ALLERGIES No Information ENCOUNTERS Encounter Location Date Diagnosis [place] [id number] [place] [address] 10 Feb, 2019 Type 1 diabetes mellitus wit h other diabetic neurological complication E10.49 [place] [address] [place] [id number] [address] [place] [id number] 04 Feb, 2019 Encounter for Medicare annua l wellness exam Z00.00 ; Mood disorder F39 ; Type 1 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 ; Hypertension, essential I10 and Chronic fatigue R53.82 [facility] [address] [place] [id number] [address] [place] [id number] 13 Jan, 2019 Type 1 diabetes mellitus wit h other diabetic neurological complication E10.49 [facility] [address] [place] [id number] [address] [place] [address] Jan, [place] [address] [place] [id number] [address] [place] [id number] 07 Jan, 2019 Other chronic pain G89.29 [facility] [address] [id number] [address] [place] [id number] 11 Dec, 2018 [facility] [address] [facility] [id number] [address] [place] [id number] 08 Dec, 2018 Type 1 diabetes mellitus wit h other diabetic neurological complication E10.49 [facility] [address] [id number] [address] [place] [id number] 05 Dec, 2018 Other chronic pain G89.29 [facility] [address] [id number] [address] [place] [id number] Nov, [facility] [address] [facility] [id number] [address] [place] [address] [id number] Nov, Caries K02.9 [facility] [address] [facility] [id number] [address] [place] [id number] 15 Nov, 2018 Type 1 diabetes mellitus wit h other diabetic neurological complication E10.49 [facility] [address] [facility] [id number] [address] [place] [id number] 07 Nov, 2018 Controlled diabetes mellitus type 1 without complications E10.9 ; Other chronic pain G89.29 and Pain in left knee M25.562 [facility] [address] [place] [id number] [address] [place] [address] [id number] 18 Oct, 2018 Dental examination Z01.20 [facility] [address] [facility] [id number] [address] [place] [id number] 14 Oct, 2018 Cutaneous abscess of unspeci fied foot L02.619 and Cellulitis of unspecified part of limb L03.119 [facility] [address] [facility] [id number] [address] [place] [id number] 11 Oct, 2018 [facility] [address] [facility] [id number] [address] [place] [address] 10 Oct, 2018 Type 1 diabetes mellitus wit h other diabetic neurological complication E10.49 [facility] [address] [facility] [id number] [address] [place] [address] [id number] 06 Oct, 2018 Dental examination Z01.20 an d Caries K02.9 [facility] [address] [facility] [id number] [address] [place] [address] 04 Oct, 2018 Cutaneous abscess of left fo ot L02.612 and Cellulitis of left lower limb L03.116 [facility] [address] [facility] [id number] [address] [place] [id number] 04 Oct, 2018 Dental examination Z01.20 an d Pain, dental K08.89 [facility] [address] [facility] [id number] [address] [place] [address] Sep, Left foot pain M79.672 and L eft anterior knee pain M25.562 [facility] [address] [facility] [id number] [address] [place] [address] Sep, Type 1 diabetes mellitus wit h other diabetic neurological complication E10.49 [facility] [address] [facility] [id number] [address] [place] [address] Sep, [facility] [address] [facility] [id number] [address] [place] [phone] Aug, Type 1 diabetes mellitus wit h other diabetic neurological complication E10.49 [facility] [address] [facility] [id number] [address] [place] [id number] 10 Aug, 2018 Encounter for immunization Z 23 [facility] [address] [facility] [id number] [address] [place] [address] 05 Aug, 2018 Type 1 diabetes mellitus wit h hyperglycemia E10.65 [facility] [address] [facility] [id number] [address] [place] [address] Jul, Type 1 diabetes mellitus wit h hyperglycemia E10.65 [facility] [address] [facility] [id number] [address] [place] [address] Jul, [facility] [address] [facility] [id number] [address] [place] [id number] 18 Jul, 2018 [facility] [address] [id number] [address] [place] [address] Jul, Type 1 diabetes mellitus wit h other diabetic neurological complication E10.49 [facility] [address] [id number] [address] [place] [address] Jul, Type 1 diabetes mellitus wit h other diabetic neurological complication E10.49 and Mood disorder F39 [facility] [address] [id number] [address] [place] [address] Jun, [facility] [address] [id number] [address] [place] [address] Jun, Type 1 diabetes mellitus wit h other diabetic neurological complication E10.49 and Chronic fatigue R53.82 [facility] [address] [id number] [address] [place] [address] May, Type 1 diabetes mellitus wit h other diabetic neurological complication E10.49 [facility] [address] [id number] [address] [place] [phone] May, [facility] [address] [id number] [address] [place] [address] May, [facility] [address] [id number] [address] [place] [address] Apr, [facility] [address] [facility] [id number] [address] [place] [address] Apr, Type 1 diabetes mellitus wit h other diabetic neurological complication E10.49 [facility] [address] [id number] [address] [place] [address] March, [facility] [address] [id number] [address] [place] [address] Feb, [facility] [address] [facility] [id number] [address] [place] [address] Feb, Type 1 diabetes mellitus wit h other diabetic neurological complication E10.49 ; Tobacco abuse Z72.0 and Tobacco abuse counseling Z71.6 [facility] [address] [id number] [address] [place] [address] Jan, Type 1 diabetes mellitus wit h hyperglycemia E10.65 [facility] [address] [facility] [id number] [address] [place] [address] Jan, [facility] [address] [facility] [id number] [address] [place] [address] Dec, Tobacco abuse Z72.0 [facility] [address] [facility] [id number] [address] [place] [id number] Dec, Type 1 diabetes mellitus wit h hyperglycemia E10.65 [facility] [address] [facility] [id number] [address] [place] [address] Dec, Type 1 diabetes mellitus wit h hyperglycemia E10.65 ; Tobacco abuse Z72.0 and Tobacco abuse counseling Z71.6 [facility] [address] [facility] [id number] [address] [place] [address] Nov, Type 1 diabetes mellitus wit h hyperglycemia E10.65 [facility] [address] [facility] [id number] [address] [place] [address] Oct, Type 1 diabetes mellitus wit h hyperglycemia E10.65 [facility] [address] [facility] [id number] [address] [place] [address] Oct, Type 1 diabetes mellitus wit h hyperglycemia E10.65 [facility] [address] [facility] [id number] [address] [place] [address] Sep, Type 1 diabetes mellitus wit h hyperglycemia E10.65 [facility] [address] [facility] [id number] [address] [place] [address] Aug, Type 1 diabetes mellitus wit h hyperglycemia E10.65 [facility] [address] [facility] [id number] [address] [place] [address] Aug, [facility] [address] [facility] [id number] [address] [place] [address] Aug, Type 1 diabetes mellitus wit h hyperglycemia E10.65 [facility] [address] [facility] [id number] [address] [place] [id number] Aug, Encounter for immunization Z 23 [facility] [address] [facility] [id number] [address] [place] [address] Aug, Type 1 diabetes mellitus wit h hyperglycemia E10.65 [facility] [address] [facility] [id number] [address] [place] [address] Jul, Type 1 diabetes mellitus wit h hyperglycemia E10.65 [facility] [address] [facility] [id number] [address] [place] [address] Jul, Type 1 diabetes mellitus wit h hyperglycemia E10.65 [facility] [address] [facility] [id number] [address] [place] [address] May, Type 1 diabetes mellitus wit h hyperglycemia E10.65 [facility] [address] [facility] [id number] [address] [place] [address] May, [facility] [address] [facility] [id number] [address] [place] [id number] Apr, [facility] [address] [facility] [id number] [address] [place] [address] Apr, Type 1 diabetes mellitus wit h hyperglycemia E10.65 [facility] [address] [facility] [id number] [address] [place] [address] March, [facility] [address] [facility] [id number] [address] [place] [address] March, [facility] [address] [facility] [id number] [address] [place] [address] Jan, [facility] [address] [facility] [id number] [address] [place] [address] Jan, [facility] [address] [facility] [id number] [address] [place] [address] Jan, Type 1 diabetes mellitus wit h diabetic polyneuropathy E10.42 [facility] [address] [facility] [id number] [address] [place] [address] Jan, Type 1 diabetes mellitus wit h hyperglycemia E10.65 ; Excessive cerumen in both ear canals H61.23 and Controlled diabetes mellitus type 1 without complications E10.9 [facility] [address] [id number] [address] [place] [address] 16 Dec, 2016 [facility] [address] [facility] [id number] [address] [place] [address] Dec, [facility] [address] [id number] [address] [place] [address] Dec, [facility] [address] [facility] [id number] [address] [place] [address] Dec, [facility] [address] [facility] [id number] [address] [place] [address] Nov, [facility] [address] [facility] [id number] [address] [place] [address] Nov, [facility] [address] [facility] [id number] [address] [place] [address] Oct, Type 1 diabetes mellitus wit h hyperglycemia E10.65 [facility] [address] [id number] [address] [place] [address] Sep, [facility] [address] [facility] [id number] [address] [place] [id number] Sep, [facility] [address] [facility] [id number] [address] [place] [address] Sep, Controlled diabetes mellitus type 1 without complications E10.9 [facility] [address] [id number] [address] [place] [phone] Sep, [facility] [address] [id number] [address] [place] [address] [id number] Aug, Dental caries K02.9 [facility] [address] [facility] [id number] [address] [place] [address] Aug, Type 1 diabetes mellitus wit h diabetic polyneuropathy E10.42 [facility] [address] [id number] [address] [place] [address] Aug, [facility] [address] [id number] [address] [place] [address] Aug, [facility] [address] [id number] [address] [place] [address] Aug, [facility] [address] [id number] [address] [place] [address] Jul, Type 1 diabetes mellitus wit h hyperglycemia E10.65 [facility] [address] [id number] [address] [place] [address] Jul, Type 1 diabetes mellitus wit h hyperglycemia E10.65 ; Tooth pain K08.8 and Encounter for immunization Z23 [facility] [address] [id number] [address] [place] [address] [id number] 08 Jul, 2016 Dental examination Z01.20 [facility] [address] [id number] [address] [place] [address] Jul, [facility] [address] [id number] [address] [place] [address] Jul, [facility] [address] [id number] [address] [place] [address] Jul, [facility] [address] [id number] [address] [place] [address] Jun, [facility] [address] [id number] [address] [place] [address] May, [facility] [address] [id number] [address] [place] [address] Apr, [facility] [address] [id number] [address] [place] [address] Apr, [facility] [address] [id number] [address] [place] [address] Apr, [facility] [address] [id number] [address] [place] [address] March, [facility] [address] [id number] [address] [place] [address] March, [facility] [address] [id number] [address] [place] [address] Feb, [facility] [address] [id number] [address] [place] [address] Feb, [facility] [address] [id number] [address] [place] [address] Feb, Type 1 diabetes mellitus wit h hyperglycemia E10.65 [facility] [address] [id number] [address] [place] [address] Jan, [facility] [address] [id number] [address] [place] [address] Jan, [facility] [address] [facility] [id number] [address] [place] [address] Jan, [facility] [address] [id number] [address] [place] [address] Jan, [facility] [address] [facility] [id number] [address] [place] [address] Dec, [facility] [address] [facility] [id number] [address] [place] [address] Nov, [facility] [address] [id number] [address] [place] [address] Nov, [facility] [address] [id number] [address] [place] [id number] Oct, [facility] [address] [facility] [id number] [address] [place] [address] 04 Oct, 2015 Type 1 diabetes mellitus wit h 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 ; Type 1 diabetes mellitus with hyperglycemia E10.65 ; Gastroparesis K31.84 and Esophageal stricture K22.2 [facility] [address] [id number] [address] [place] [address] Oct, [facility] [address] [id number] [address] [place] [address] Sep, [facility] [address] [id number] [address] [place] [address] Sep, Type 1 diabetes mellitus wit h other diabetic neurological complication E10.49 [facility] [address] [id number] [address] [place] [address] Aug, Encounter for immunization Z 23 [facility] [address] [id number] [address] [place] [address] Aug, [facility] [address] [id number] [address] [place] [address] Aug, [facility] [address] [id number] [address] [place] [address] Jul, [facility] [address] [id number] [address] [place] [address] Jul, [facility] [address] [id number] [address] [place] [address] Jun, [facility] [address] [id number] [address] [place] [address] Jun, [facility] [address] [id number] [address] [place] [address] Jun, [facility] [address] [id number] [address] [place] [address] May, [facility] [address] [id number] [address] [place] [address] May, [facility] [address] [id number] [address] [place] [address] May, Diabetes type 1, controlled 250.01 [facility] [address] [id number] [address] [place] [address] May, [facility] [address] [id number] [address] [place] [address] May, [facility] [address] [id number] [address] [place] [address] [id number] Apr, Dental examination V72.2 [facility] [address] [id number] [address] [place] [address] Apr, [facility] [address] [id number] [address] [place] [address] Apr, [facility] [address] [id number] [address] [place] [address] Apr, [facility] [address] [id number] [address] [place] [id number] Apr, [facility] [address] [id number] [address] [place] [address] Apr, [facility] [address] [id number] [address] [place] [address] [id number] Apr, Dental examination V72.2 [facility] [address] [id number] [address] [place] [address] Apr, [facility] [address] [id number] [address] [place] [address] Apr, [facility] [address] [id number] [address] [place] [address] March, Diabetes mellitus type 1 250 .01 [facility] [address] [id number] [address] [place] [address] March, [facility] [address] [id number] [address] [place] [address] Feb, [facility] [address] [id number] [address] [place] [phone] Feb, [facility] [address] [id number] [address] [place] [address] Jan, [facility] [address] [id number] [address] [place] [address] Jan, [facility] [address] [id number] [address] [place] [address], [place] [address] Jan, [facility] [address] [id number] [address] [place] [address] Jan, [facility] [address] [id number] [address] [place] [address], [place] [address] Dec, [facility] [address] [id number] [address] [place] [address], [place] [address] Dec, [facility] [address] [id number] [address] [place] [address], [place] [id number] Nov, [facility] [address] [id number] [address] [place] [address], [place] [id number] Nov, [facility] [address] [id number] [address] [place] [id number] Nov, [facility] [address] [id number] [address] [place] [address], [place] [address] Nov, [facility] [address] [id number] [address] [place] [address], [place] [address] Nov, [facility] [address] [id number] [address] [place] [id number] Nov, [facility] [address] [id number] [address] [place] [address] Nov, [facility] [address] [id number] [address] [place] [id number] Oct, [facility] [address] [id number] [address] [place] [id number] Oct, [facility] [address] [id number] [address] [place] [address], [place] [address] Sep, [facility] [address] [id number] [address] [place] [address], [place] [address] Aug, [facility] [address] [id number] [address] [place] [address], [place] [address] Aug, [facility] [address] [id number] [address] [place] [address], [place] [address] Aug, [facility] [address] [id number] [address] [place] [address], [place] [id number] Aug, [facility] [address] [id number] [address] [place] [address], [place] [id number] Aug, [facility] [address] [id number] [address] [place] [address], [place] [address] Aug, [facility] [address] [id number] [address] [place] [address], [place] [address] Aug, [facility] [facility] [address] [id number] [address] [place] [address], [place] [address] Aug, [facility] [address] [id number] [address] [place] [address], [place] [address] Aug, [facility] [address] [id number] [address] [place] [address], [place] [address] Aug, [facility] [address] [id number] [address] [place] [address], [place] [address] Aug, [facility] [address] [id number] [address] [place] [address], [place] [address] Aug, [facility] [address] [id number] [address] [place] [address], [place] [address] Aug, [facility] [address] [id number] [address] [place] [address], [place] [address] Aug, [facility] [address] [id number] [address] [place] [address], [place] [address] Jul, 2013 [facility] [address] [id number] [address] [place] [address], [place] [address] 13 Jul, 2013 [facility] [address] [id number] [address] [place] [address], [place] [address] Jul, [facility] [address] [id number] [facility] [place] [address] Jul, [facility] [address] [id number] [address] [place] [address], [place] [address] Jun, [facility] [address] [id number] [address] [place] [address], [place] [address] Jun, [facility] [address] [id number] [address] [place] [address], [place] [address] Jun, [facility] [address] [id number] [address] [place] [address], [place] [address] Jun, [facility] [address] [id number] [address] [place] [address], [place] [address] May, [facility] [address] [id number] [address] [place] [address], [place] [address] May, [facility] [address] [id number] [address] [place] [address], [place] [address] May, [facility] [address] [id number] [address] [place] [address], [place] [address] May, [facility] [address] [id number] [address] [place] [address], [place] [address] May, [facility] [address] [id number] [address] [place] [address], [place] [address] May, [facility] [address] [id number] [address] [place] [address], [place] [address] May, [facility] [address] [id number] [address] [place] [address], [place] [address] May, [facility] [address] [id number] [address] [place] [address], [place] [address] May, [facility] [address] [id number] [address] [place] [address], [place] [address] May, [facility] [address] [id number] [facility] [place] [address] May, [facility] [address] [id number] [address] [place] [address], [place] [address] May, [facility] [address] [id number] [facility] [place] [address] May, [facility] [address] [id number] [address] [place] [address], [place] [address] Apr, [facility] [address] [id number] [address] [place] [address], [place] [address] Apr, [facility] [address] [id number] [address] [place] [address], [place] [address] Apr, [facility] [address] [id number] [address] [place] [address], [place] [address] Apr, [facility] [address] [id number] [address] [place] [address], [place] [address] Apr, [facility] [address] [id number] [address] [place] [address], [place] [address] Apr, [facility] [address] [id number] [address] [place] [address], [place] [address] Apr, [facility] [address] [id number] [address] [place] [address], [place] [address] Apr, [facility] [address] [id number] [address] [place] [address], [place] [address] Apr, [facility] [address] [id number] [address] [place] [address], [place] [address] Apr, [facility] [address] [id number] [address] [place] [address], [place] [address] Apr, [facility] [address] [id number] [address] [place] [address], [place] [address] Apr, [facility] [address] [id number] [address] [place] [address], [place] [address] Apr, [facility] [address] [id number] [address] [place] [address], [place] [address] Apr, [facility] [address] [id number] [address] [place] [address], [place] [address] March, [facility] [address] [id number] [address] [place] [address], [place] [address] March, [facility] [address] [id number] [address] [place] [address], [place] [address] March, [facility] [address] [id number] [address] [place] [address], [place] [address] March, [facility] [address] [id number] [address] [place] [address], [place] [address] March, [facility] [address] [id number] [address] [place] [address], [place] [address] March, [facility] [address] [id number] [address] [place] [address], [place] [address] March, [facility] [address] [id number] [address] [place] [address], [place] [address] March, [facility] [address] [id number] [address] [place] [address], [place] [address] March, [facility] [address] [id number] [address] [place] [address], [place] [address] March, [facility] [address] [id number] [address] [place] [address], [place] [address] Feb, [facility] [address] [id number] [address] [place] [address], [place] [address] Feb, [facility] [address] [id number] [address] [place] [address], [place] [address] Feb, [facility] [address] [id number] [address] [place] [address], [place] [address] Feb, [facility] [address] [id number] [address] [place] [address], [place] [address] Feb, [facility] [address] [id number] [facility] [place] [address] Feb, [facility] [address] [id number] [facility] [place] [address] Feb, [facility] [address] [id number] [facility] [place] [address] Feb, [facility] [address] [id number] [address] [place] [address], [place] [address] Jan, [facility] [address] [id number] [address] [place] [address], [place] [address] Jan, [facility] [address] [id number] [address] [place] [address], [place] [address] Jan, [facility] [address] [id number] [address] [place] [address], [place] [address] Jan, [facility] [address] [id number] [address] [place] [address], [place] [address] Jan, [facility] [address] [id number] [address] [place] [address], [place] [address] Jan, [facility] [address] [id number] [address] [place] [address], [place] [address] Jan, [facility] [address] [id number] [address] [place] [address], [place] [address] Jan, [facility] [address] [id number] [address] [place] [address], [place] [address] Jan, [facility] [address] [id number] [address] [place] [address], [place] [address] Jan, [facility] [address] [id number] [address] [place] [address], [place] [address] Dec, [facility] [address] [id number] [address] [place] [address], [place] [address] Dec, [facility] [address] [id number] [address] [place] [address], [place] [address] Nov, [facility] [address] [id number] [address] [place] [address], [place] [address] Nov, [facility] [address] [id number] [address] [place] [address], [place] [address] Nov, [facility] [address] [id number] [address] [place] [address], [place] [address] Nov, [facility] [address] [id number] [address] [place] [address], [place] [address] Nov, [facility] [address] [id number] [address] [place] [address], [place] [address] Nov, [facility] [address] [id number] [address] [place] [address], [place] [address] Nov, [facility] [address] [id number] [address] [place] [address], [place] [address] Nov, [facility] [address] [id number] [address] [place] [address], [place] [address] Oct, [facility] [address] [id number] [address] [place] [address], [place] [address] Oct, [facility] [address] [id number] [address] [place] [address], [place] [address] Oct, [facility] [address] [id number] [address] [place] [address], [place] [address] Oct, [facility] [address] [id number] [address] [place] [address], [place] [address] Oct, [facility] [address] [id number] [address] [place] [address], [place] [address] Oct, [facility] [address] [id number] [address] [place] [address], [place] [address] Sep, [facility] [address] [id number] [address] [place] [address], [place] [address] Sep, [facility] [address] [id number] [address] [place] [address], [place] [address] Sep, [facility] [address] [id number] [address] [place] [address], [place] [address] Sep, [facility] [address] [id number] [address] [place] [address], [place] [address] Sep, [facility] [address] [id number] [address] [place] [address], [place] [address] Aug, [facility] [address] [id number] [address] [place] [address], [place] [address] Aug, [facility] [address] [id number] [address] [place] [address], [place] [address] Aug, [facility] [address] [id number] [address] [place] [address], [place] [address] Aug, [facility] [address] [id number] [address] [place] [address], [place] [address] Aug, [facility] [address] [id number] [address] [place] [address], [place] [address] Aug, [facility] [address] [id number] [address] [place] [address] Jul, [facility] [address] [id number] [address] [place] [address], [place] [address] Jul, [facility] [address] [id number] [address] [place] [address] Jul, [facility] [address] [id number] [address] [place] [address], [place] [address] Jun, [facility] [address] [id number] [address] [place] [address], [place] [address] Jun, [facility] [address] [id number] [address] [place] [address], [place] [address] May, [facility] [address] [id number] [address] [place] [address], [place] [address] 10 May, 2013 [facility] [address] [id number] [address] [place] [address], [place] [address] 11 Apr, 2013 [facility] [address] [id number] [address] [place] [address], [place] [address] 07 Apr, 2013 [facility] [address] [id number] [address] [place] [address], [place] [address] Apr, [facility] [address] [id number] [address] [place] [address], [place] [address] March, [facility] [address] [id number] [address] [place] [address], [place] [address] Feb, [facility] [address] [id number] [address] [place] [address], [place] [address] Feb, [facility] [address] [id number] [address] [place] [address], [place] [address] Jan, [facility] [address] [id number] [address] [place] [address], [place] [address] Jan, [facility] [address] [id number] [address] [place] [address], [place] [address] Jan, [facility] [address] [id number] [address] [place] [address], [place] [address] Jan, [facility] [address] [id number] [address] [place] [address], [place] [address] Jan, [facility] [address] [id number] [address] [place] [address], [place] [address] 28 Dec, 2012 [facility] [address] [id number] [address] [place] [address], [place] [address] Dec, [facility] [address] [id number] [address] [place] [address], [place] [address] 18 Dec, 2012 [facility] [address] [id number] [address] [place] [address], [place] [address] Dec, [facility] [address] [id number] [address] [place] [address], [place] [address] Dec, [facility] [address] [id number] [address] [place] [address], [place] [address] Dec, [facility] [address] [place] [id number] 14 Nov, 2012 [facility] [address] [id number] [address] [place] [address], [place] [address] Nov, [facility] [address] [id number] [address] [place] [address], [place] [address] Nov, [facility] [address] [id number] [address] [place] [address], [place] [address] Nov, [facility] [address] [id number] [address] [place] [address], [place] [address] Nov, [facility] [address] [id number] [address] [place] [address], [place] [address] Oct, [facility] [address] [id number] [address] [place] [address], [place] [address] Oct, [facility] [address] [id number] [address] [place] [address], [place] [address] Oct, [facility] [address] [id number] [address] [place] [address], [place] [address] Oct, [facility] [address] [id number] [address] [place] [address], [place] [address] Oct, [facility] [address] [id number] [address] [place] [address], [place] [address] Oct, [facility] [address] [id number] [address] [place] [address], [place] [address] Oct, [facility] [address] [id number] [address] [place] [address], [place] [address] Oct, [facility] [address] [id number] [address] [address] Sep, [facility] [address] [id number] [address] [place] [address] Sep, [facility] [address] [id number] [address] [place] [address] Sep, [facility] [address] [id number] [address] [place] [address] Sep, [facility] [address] [id number] [address] [place] [address] Sep, [facility] [address] [id number] [address] [place] [address] Sep, [facility] [address] [id number] [address] [place] [address] Sep, [facility] [address] [id number] [address] [place] [address] Sep, [facility] [address] [id number] [address] [place] [address] Sep, [facility] [address] [id number] [address] [place] [address] Sep, [facility] [address] [id number] [address] [place] [address] Sep, [facility] [address] [id number] [address] [place] [address] Sep, [facility] [address] [id number] [address] [place] [address] Sep, [facility] [address] [id number] [address] [place] [address] Sep, [facility] [address] [id number] [address] [place] [address] Sep, [facility] [address] [id number] [address] [place] [address] Sep, IMMUNIZATIONS No Known Immunizations SOCIAL HISTORY Never Assessed REASON FOR VISIT controlled PLAN OF CARE VITAL SIGNS MEDICATIONS Medication Instructions Dosage Frequency Start Date End Date Duration S juan Percocet 10-325 MG Orally every 6 hrs 1 tablet as needed 6h Jan, Active RESULTS No Results PROCEDURES No Known procedures INSTRUCTIONS MEDICATIONS ADMINISTERED No Known Medications MEDICAL (GENERAL) HISTORY Type Description Date Medical History hypertension Medical History type I diabetes Medical History chronic renal insufficiency Surgical History gastric pacemaker 2008 Hospitalization History nausea 2012
--- OUTSIDE RECORDS SUMMARY | 2020-04-17 21:36 | XMS REPORT ---
Author Author Curt Barr Doctor Organization [facility] Address Unknown Phone Unavailable Care Team Providers Care Entry Specialists Name Role Phone Migration, Doctor Unavailable Unavailable PROBLEMS Type Condition ICD9-CM Code RTI90-YT Code Onset Dates Condition S tatus SNOMED Code Problem Hypertension, essential I10 Active 53923282 Problem Gastroparesis K31.84 Active 452056 006 Problem Type 1 diabetes mellitus with other diab etic neurological complication E10.49 Active 04653827 Problem Controlled diabetes mellitus type 1 without complications E10.9 Active 15588807 Problem Mood disorder F39 Active 022304 05 Problem Other chronic pain G89.29 Active 8 7321740 Problem 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 Active 49432261 Problem Type 1 diabetes mellitus with hyperglycemia E10.65 Active 538505462503155 Problem Type 1 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 Active 97521094 Problem Chronic fatigue R53.82 Active 8422 9001 ALLERGIES No Information ENCOUNTERS Encounter Location Date Diagnosis [place] [id number] [place] [id number] [address] [place] [address] 10 Feb, 2019 Type 1 diabetes mellitus wit h other diabetic neurological complication E10.49 [facility] [address] [place] [id number] [address] [place] [address] 04 Feb, 2019 Encounter for Medicare annua l wellness exam Z00.00 ; Mood disorder F39 ; Type 1 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 ; Hypertension, essential I10 and Chronic fatigue R53.82 [facility] [address] [place] [id number] [address] [place] [address] 13 Jan, 2019 Type 1 diabetes mellitus wit h other diabetic neurological complication E10.49 [facility] [address] [place] [id number] [address] [place] [address] Jan, [facility] [address] [place] [id number] [address] [place] [address] Jan, Other chronic pain G89.29 [facility] [address] [id number] [address] [place] [address] 11 Dec, 2018 [facility] [address] [id number] [address] [place] [address] 08 Dec, 2018 Type 1 diabetes mellitus wit h other diabetic neurological complication E10.49 [facility] [address] [id number] [address] [place] [address] 05 Dec, 2018 Other chronic pain G89.29 [facility] [address] [id number] [address] [place] [address] Nov, [facility] [id number] [place] [id number] Nov, Caries K02.9 [facility] [address] [id number] [address] [place] [address] Nov, Type 1 diabetes mellitus wit h other diabetic neurological complication E10.49 [facility] [address] [id number] [address] [place] [address] Nov, Controlled diabetes mellitus type 1 without complications E10.9 ; Other chronic pain G89.29 and Pain in left knee M25.562 [facility] [address] [id number] [address] [place] [address] [id number] Oct, Dental examination Z01.20 [facility] [address] [id number] [address] [place] [address] 14 Oct, 2018 Cutaneous abscess of unspeci fied foot L02.619 and Cellulitis of unspecified part of limb L03.119 [facility] [address] [id number] [address] [place] [address] Oct, [facility] [address] [facility] [id number] [address] [place] [address] Oct, Type 1 diabetes mellitus wit h other diabetic neurological complication E10.49 [facility] [address] [id number] [address] [place] [address] [id number] Oct, Dental examination Z01.20 an d Caries K02.9 [facility] [address] [facility] [id number] [address] [place] [address] Oct, Cutaneous abscess of left fo ot L02.612 and Cellulitis of left lower limb L03.116 [facility] [address] [facility] [id number] [address] [place] [address] Oct, Dental examination Z01.20 an d Pain, dental K08.89 [facility] [address] [facility] [id number] [address] [place] [address] Sep, Left foot pain M79.672 and L eft anterior knee pain M25.562 [place] [address] [facility] [id number] [address] [place] [address] Sep, Type 1 diabetes mellitus wit h other diabetic neurological complication E10.49 [place] [address] [place] [id number] [address] [place] [address] Sep, [place] [address] [facility] [id number] [address] [place] [address] 11 Aug, 2018 Type 1 diabetes mellitus wit h other diabetic neurological complication E10.49 [place] [address] [facility] [id number] [address] [place] [address] 10 Aug, 2018 Encounter for immunization Z 23 [facility] [address] [facility] [id number] [address] [place] [address] 05 Aug, 2018 Type 1 diabetes mellitus wit h hyperglycemia E10.65 [place] [address] [facility] [id number] [address] [place] [address] Jul, Type 1 diabetes mellitus wit h hyperglycemia E10.65 [place] [address] [facility] [id number] [address] [place] [address] 19 Jul, 2018 [place] [address] [facility] [id number] [address] [place] [address] 18 Jul, 2018 [place] [address] [facility] [id number] [address] [place] [address] Jul, Type 1 diabetes mellitus wit h other diabetic neurological complication E10.49 [facility] [address] [id number] [address] [place] [address] Jul, Type 1 diabetes mellitus wit h other diabetic neurological complication E10.49 and Mood disorder F39 [facility] [address] [id number] [address] [place] [address] Jun, [facility] [address] [id number] [address] [place] [address] Jun, Type 1 diabetes mellitus wit h other diabetic neurological complication E10.49 and Chronic fatigue R53.82 [facility] [address] [id number] [address] [place] [address] May, Type 1 diabetes mellitus wit h other diabetic neurological complication E10.49 [facility] [address] [id number] [address] [place] [address] May, [facility] [address] [id number] [address] [place] [address] May, [facility] [address] [id number] [address] [place] [address] Apr, [facility] [address] [facility] [id number] [address] [place] [address] Apr, Type 1 diabetes mellitus wit h other diabetic neurological complication E10.49 [facility] [address] [facility] [id number] [address] [place] [address] March, [facility] [address] [id number] [address] [place] [address] Feb, [facility] [address] [facility] [id number] [address] [place] [address] Feb, Type 1 diabetes mellitus wit h other diabetic neurological complication E10.49 ; Tobacco abuse Z72.0 and Tobacco abuse counseling Z71.6 [facility] [address] [id number] [address] [place] [address] Jan, Type 1 diabetes mellitus wit h hyperglycemia E10.65 [facility] [address] [facility] [id number] [address] [place] [address] Jan, [facility] [address] [facility] [id number] [address] [place] [address] Dec, Tobacco abuse Z72.0 [facility] [address] [facility] [id number] [address] [place] [address] Dec, Type 1 diabetes mellitus wit h hyperglycemia E10.65 [facility] [address] [facility] [id number] [address] [place] [address] Dec, Type 1 diabetes mellitus wit h hyperglycemia E10.65 ; Tobacco abuse Z72.0 and Tobacco abuse counseling Z71.6 [facility] [address] [facility] [id number] [address] [place] [address] Nov, Type 1 diabetes mellitus wit h hyperglycemia E10.65 [facility] [address] [facility] [id number] [address] [place] [address] Oct, Type 1 diabetes mellitus wit h hyperglycemia E10.65 [facility] [address] [facility] [id number] [address] [place] [address] Oct, Type 1 diabetes mellitus wit h hyperglycemia E10.65 [facility] [address] [facility] [id number] [address] [place] [address] Sep, Type 1 diabetes mellitus wit h hyperglycemia E10.65 [facility] [address] [facility] [id number] [address] [place] [address] Aug, Type 1 diabetes mellitus wit h hyperglycemia E10.65 [facility] [address] [facility] [id number] [address] [place] [address] Aug, [facility] [address] [facility] [id number] [address] [place] [address] Aug, Type 1 diabetes mellitus wit h hyperglycemia E10.65 [facility] [address] [facility] [id number] [address] [place] [address] Aug, Encounter for immunization Z 23 [facility] [address] [id number] [address] [place] [address] Aug, Type 1 diabetes mellitus wit h hyperglycemia E10.65 [facility] [address] [id number] [address] [place] [address] Jul, Type 1 diabetes mellitus wit h hyperglycemia E10.65 [facility] [address] [id number] [address] [place] [address] Jul, Type 1 diabetes mellitus wit h hyperglycemia E10.65 [facility] [address] [id number] [address] [place] [address] May, Type 1 diabetes mellitus wit h hyperglycemia E10.65 [facility] [address] [id number] [address] [place] [address] May, [facility] [address] [id number] [address] [place] [address] Apr, [facility] [address] [facility] [id number] [address] [place] [address] Apr, Type 1 diabetes mellitus wit h hyperglycemia E10.65 [facility] [address] [facility] [id number] [address] [place] [address] March, [facility] [address] [facility] [id number] [address] [place] [id number] March, [facility] [address] [facility] [id number] [address] [place] [address] Jan, [facility] [address] [id number] [address] [place] [address] Jan, [facility] [address] [facility] [id number] [address] [place] [address] Jan, Type 1 diabetes mellitus wit h diabetic polyneuropathy E10.42 [facility] [address] [facility] [id number] [address] [place] [address] Jan, Type 1 diabetes mellitus wit h hyperglycemia E10.65 ; Excessive cerumen in both ear canals H61.23 and Controlled diabetes mellitus type 1 without complications E10.9 [facility] [address] [id number] [address] [place] [address] 16 Dec, 2016 [facility] [address] [id number] [address] [place] [address] Dec, [facility] [address] [id number] [address] [place] [address] Dec, [facility] [address] [id number] [address] [place] [address] Dec, [facility] [address] [id number] [address] [place] [address] Nov, [facility] [address] [id number] [address] [place] [address] Nov, [facility] [address] [id number] [address] [place] [address] Oct, Type 1 diabetes mellitus wit h hyperglycemia E10.65 [facility] [address] [id number] [address] [place] [address] Sep, [facility] [address] [id number] [address] [place] [address] Sep, [facility] [address] [id number] [address] [place] [address] Sep, Controlled diabetes mellitus type 1 without complications E10.9 [facility] [address] [id number] [address] [place] [address] Sep, [facility] [address] [id number] [address] [place] [address] [id number] Aug, Dental caries K02.9 [facility] [address] [id number] [address] [place] [address] Aug, Type 1 diabetes mellitus wit h diabetic polyneuropathy E10.42 [facility] [address] [id number] [address] [place] [address] Aug, [facility] [address] [id number] [address] [place] [address] Aug, [facility] [address] [id number] [address] [place] [address] Aug, [facility] [address] [id number] [address] [place] [address] Jul, Type 1 diabetes mellitus wit h hyperglycemia E10.65 [facility] [address] [id number] [address] [place] [address] Jul, Type 1 diabetes mellitus wit h hyperglycemia E10.65 ; Tooth pain K08.8 and Encounter for immunization Z23 [facility] [address] [id number] [address] [place] [address] [id number] 08 Jul, 2016 Dental examination Z01.20 [facility] [address] [id number] [address] [place] [address] 08 Jul, 2016 [facility] [address] [id number] [address] [place] [address] Jul, [facility] [address] [id number] [address] [place] [address] Jul, [facility] [address] [id number] [address] [place] [address] Jun, [facility] [address] [id number] [address] [place] [address] May, [facility] [address] [id number] [address] [place] [address] Apr, [facility] [address] [id number] [address] [place] [address] Apr, [facility] [address] [id number] [address] [place] [address] Apr, [facility] [address] [id number] [address] [place] [address] March, [facility] [address] [id number] [address] [place] [address] March, [facility] [address] [id number] [address] [place] [address] Feb, [facility] [address] [id number] [address] [place] [address] Feb, [facility] [address] [id number] [address] [place] [address] Feb, Type 1 diabetes mellitus wit h hyperglycemia E10.65 [facility] [address] [id number] [address] [place] [address] Jan, [facility] [address] [id number] [address] [place] [address] Jan, [facility] [address] [facility] [id number] [address] [place] [address] Jan, [facility] [address] [id number] [address] [place] [address] Jan, [facility] [address] [id number] [address] [place] [address] Dec, [facility] [address] [id number] [address] [place] [address] Nov, [facility] [address] [facility] [id number] [address] [place] [address] Nov, [facility] [address] [id number] [address] [place] [address] Oct, [facility] [address] [facility] [id number] [address] [place] [address] Oct, Type 1 diabetes mellitus wit h 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 ; Type 1 diabetes mellitus with hyperglycemia E10.65 ; Gastroparesis K31.84 and Esophageal stricture K22.2 [facility] [address] [id number] [address] [place] [address] Oct, [facility] [address] [id number] [address] [place] [address] Sep, [facility] [address] [id number] [address] [place] [address] Sep, Type 1 diabetes mellitus wit h other diabetic neurological complication E10.49 [facility] [address] [id number] [address] [place] [address] Aug, Encounter for immunization Z 23 [facility] [address] [id number] [address] [place] [address] 19 Aug, 2015 [facility] [address] [id number] [address] [place] [address] Aug, [facility] [address] [id number] [address] [place] [address] Jul, [facility] [address] [id number] [address] [place] [address] Jul, [facility] [address] [id number] [address] [place] [address] Jun, [facility] [address] [id number] [address] [place] [address] Jun, [facility] [address] [id number] [address] [place] [address] Jun, [facility] [address] [id number] [address] [place] [address] May, [facility] [address] [id number] [address] [place] [address] May, [facility] [address] [id number] [address] [place] [address] May, Diabetes type 1, controlled 250.01 [facility] [address] [id number] [address] [place] [address] May, [facility] [address] [id number] [address] [place] [address] May, [facility] [address] [id number] [address] [place] [address] [id number] Apr, 2015 Dental examination V72.2 [facility] [address] [id number] [address] [place] [address] Apr, [facility] [address] [id number] [address] [place] [address] Apr, [facility] [address] [id number] [address] [place] [address] Apr, [facility] [address] [id number] [address] [place] [address] Apr, [facility] [address] [id number] [address] [place] [address] Apr, [facility] [address] [id number] [address] [place] [address] [id number] Apr, Dental examination V72.2 [facility] [address] [id number] [address] [place] [address] Apr, [facility] [address] [id number] [address] [place] [address] Apr, [facility] [address] [id number] [address] [place] [address] March, Diabetes mellitus type 1 250 .01 [facility] [address] [id number] [address] [place] [address] March, [facility] [address] [id number] [address] [place] [address] Feb, [facility] [address] [id number] [address] [place] [address] Feb, [facility] [address] [id number] [address] [place] [address] Jan, [facility] [address] [id number] [address] [place] [address] Jan, [facility] [address] [id number] [address] [place] [address], [place] [address] Jan, [facility] [address] [id number] [address] [place] [address], [place] [address] Jan, [facility] [address] [id number] [address] [place] [address], [place] [address] Dec, [facility] [address] [id number] [address] [place] [address], [place] [address] Dec, [facility] [address] [id number] [address] [place] [address], [place] [address] Nov, [facility] [address] [id number] [address] [place] [address], [place] [address] Nov, [facility] [address] [id number] [address] [place] [address], [place] [address] Nov, [facility] [address] [id number] [address] [place] [address], [place] [address] Nov, [facility] [address] [id number] [address] [place] [address], [place] [address] Nov, [facility] [address] [id number] [address] [place] [address], [place] [address] Nov, [facility] [address] [id number] [address] [place] [address], [place] [address] Nov, [facility] [address] [id number] [address] [place] [address], [place] [address] Oct, [facility] [address] [id number] [address] [place] [address], [place] [address] Oct, [facility] [address] [id number] [address] [place] [address], [place] [address] Sep, [facility] [address] [id number] [address] [place] [address], [place] [address] Aug, [facility] [address] [id number] [address] [place] [address], [place] [address] Aug, [facility] [address] [id number] [address] [place] [address], [place] [address] Aug, [facility] [address] [id number] [address] [place] [address], [place] [address] Aug, [facility] [address] [id number] [address] [place] [address], [place] [address] Aug, [facility] [address] [id number] [address] [place] [address], [place] [address] Aug, [facility] [address] [id number] [address] [place] [address], [place] [address] Aug, [facility] [address] [id number] [address] [place] [address], [place] [address] Aug, [facility] [address] [id number] [address] [place] [address], [place] [address] Aug, [facility] [address] [id number] [address] [place] [address], [place] [address] Aug, [facility] [address] [id number] [address] [place] [address], [place] [address] Aug, [facility] [address] [id number] [address] [place] [address] Aug, [facility] [address] [id number] [address] [place] [address], [place] [address] Aug, [facility] [address] [id number] [address] [place] [address] Aug, [facility] [address] [id number] [address] [place] [address], [place] [address] Jul, [facility] [address] [id number] [address] [place] [address], [place] [address] Jul, [facility] [address] [id number] [address] [place] [address], [place] [address] Jul, [facility] [address] [id number] [address] [place] [address], [place] [address] Jul, [facility] [address] [id number] [facility] [place] [address] Jun, [facility] [address] [id number] [address] [place] [address], [place] [address] Jun, [facility] [address] [id number] [address] [place] [address], [place] [address] Jun, [facility] [address] [id number] [address] [place] [address], [place] [address] Jun, [facility] [address] [id number] [address] [place] [address], [place] [address] May, [facility] [address] [id number] [address] [place] [address], [place] [address] May, [facility] [address] [id number] [address] [place] [address], [place] [address] May, [facility] [address] [id number] [address] [place] [address], [place] [address] May, [facility] [address] [id number] [address] [place] [address], [place] [address] May, [facility] [address] [id number] [address] [place] [address], [place] [address] May, [facility] [address] [id number] [address] [place] [address], [place] [address] May, [facility] [address] [id number] [address] [place] [address], [place] [address] May, [facility] [address] [id number] [address] [place] [address], [place] [address] May, [facility] [address] [id number] [address] [place] [address], [place] [address] May, [facility] [address] [id number] [address] [place] [address], [place] [address] May, [facility] [address] [id number] [facility] [place] [address] May, [facility] [address] [id number] [facility] [place] [address] May, [facility] [address] [id number] [facility] [place] [address] Apr, [facility] [address] [id number] [facility] [place] [address] Apr, [facility] [address] [id number] [address] [place] [address], [place] [address] Apr, [facility] [address] [id number] [address] [place] [address], [place] [address] Apr, [facility] [address] [id number] [address] [place] [address], [place] [address] Apr, [facility] [address] [id number] [address] [place] [address], [place] [address] Apr, [facility] [address] [id number] [address] [place] [address], [place] [address] Apr, [facility] [address] [id number] [address] [place] [address], [place] [address] Apr, [facility] [address] [id number] [address] [place] [address], [place] [address] Apr, [facility] [address] [id number] [address] [place] [address], [place] [address] Apr, [facility] [address] [id number] [address] [place] [address], [place] [address] Apr, [facility] [address] [id number] [address] [place] [address], [place] [address] Apr, [facility] [address] [id number] [address] [place] [address], [place] [address] Apr, [facility] [address] [id number] [address] [place] [address], [place] [address] Apr, [facility] [address] [id number] [address] [place] [address], [place] [address] March, [facility] [address] [id number] [address] [place] [address], [place] [address] March, [facility] [address] [id number] [address] [place] [address], [place] [address] March, [facility] [address] [id number] [address] [place] [address], [place] [address] March, [facility] [address] [id number] [address] [place] [address], [place] [address] March, [facility] [address] [id number] [address] [place] [address], [place] [address] March, [facility] [address] [id number] [address] [place] [address], [place] [address] March, [facility] [address] [id number] [address] [place] [address], [place] [address] March, [facility] [address] [id number] [address] [place] [address], [place] [address] March, [facility] [address] [id number] [address] [place] [address], [place] [address] March, [facility] [address] [id number] [address] [place] [address], [place] [address] Feb, [facility] [address] [id number] [address] [place] [address], [place] [address] Feb, [facility] [address] [id number] [address] [place] [address], [place] [address] Feb, [facility] [address] [id number] [address] [place] [address], [place] [address] Feb, [facility] [address] [id number] [address] [place] [address], [place] [address] Feb, [facility] [address] [id number] [facility] [place] [address] 10 Feb, 2014 [facility] [address] [id number] [facility] [place] [address] Feb, [facility] [address] [id number] [facility] [place] [address] Feb, [facility] [address] [id number] [address] [place] [address], [place] [address] 18 Jan, 2014 [facility] [address] [id number] [address] [place] [address], [place] [address] Jan, [facility] [address] [id number] [address] [place] [address], [place] [address] Jan, [facility] [address] [id number] [address] [place] [address], [place] [address] Jan, [facility] [address] [id number] [address] [place] [address], [place] [address] Jan, [facility] [address] [id number] [address] [place] [address], [place] [address] Jan, [facility] [address] [id number] [address] [place] [address], [place] [address] Jan, [facility] [address] [id number] [address] [place] [address], [place] [address] Jan, [facility] [address] [id number] [address] [place] [address], [place] [address] Jan, [facility] [address] [id number] [address] [place] [address], [place] [address] Jan, [facility] [address] [id number] [address] [place] [address], [place] [address] Dec, [facility] [address] [id number] [address] [place] [address], [place] [address] Dec, [facility] [address] [id number] [address] [place] [address], [place] [address] Nov, [facility] [address] [id number] [address] [place] [address], [place] [address] Nov, [facility] [address] [id number] [address] [place] [address], [place] [address] Nov, [facility] [address] [id number] [address] [place] [address], [place] [address] Nov, [facility] [address] [id number] [address] [place] [address], [place] [address] Nov, [facility] [address] [id number] [address] [place] [address], [place] [address] Nov, [facility] [address] [id number] [address] [place] [address], [place] [address] Nov, [facility] [address] [id number] [address] [place] [address], [place] [address] Nov, [facility] [address] [id number] [address] [place] [address], [place] [address] Oct, [facility] [address] [id number] [address] [place] [address], [place] [address] Oct, [facility] [address] [id number] [address] [place] [address], [place] [address] Oct, [facility] [address] [id number] [address] [place] [address], [place] [address] Oct, [facility] [address] [id number] [address] [place] [address] Oct, [facility] [address] [id number] [address] [place] [address], [place] [address] Oct, [facility] [address] [id number] [address] [place] [address], [place] [address] Sep, [facility] [address] [id number] [address] [place] [address], [place] [address] Sep, [facility] [address] [id number] [address] [place] [address] Sep, [facility] [address] [id number] [address] [place] [address], [place] [address] Sep, [facility] [address] [id number] [address] [place] [address], [place] [address] Sep, [facility] [address] [id number] [address] [place] [address], [place] [address] Aug, [facility] [address] [id number] [address] [place] [address], [place] [address] Aug, [facility] [address] [id number] [address] [place] [address], [place] [address] Aug, [facility] [address] [id number] [address] [place] [address], [place] [address] Aug, [facility] [address] [id number] [address] [place] [address], [place] [address] Aug, [facility] [address] [id number] [address] [place] [address], [place] [address] Aug, [facility] [address] [id number] [address] [place] [address], [place] [address] Jul, [facility] [address] [id number] [address] [place] [address], [place] [address] Jul, [facility] [address] [id number] [address] [place] [address], [place] [address] Jul, [facility] [address] [id number] [address] [place] [address], [place] [address] Jun, [facility] [address] [id number] [address] [place] [address], [place] [address] Jun, [facility] [address] [id number] [address] [place] [address], [place] [address] May, [facility] [address] [id number] [address] [place] [address], [place] [address] May, [facility] [address] [id number] [facility] [place] [address] 11 Apr, 2013 [facility] [address] [id number] [address] [place] [address], [place] [address] 07 Apr, 2013 [facility] [address] [id number] [address] [place] [address], [place] [address] 06 Apr, 2013 [facility] [address] [id number] [address] [place] [address], [place] [address] March, [facility] [address] [id number] [address] [place] [address], [place] [address] Feb, [facility] [address] [id number] [address] [place] [address], [place] [address] Feb, [facility] [address] [id number] [address] [place] [address], [place] [address] Jan, [facility] [address] [id number] [address] [place] [address], [place] [address] Jan, [facility] [address] [id number] [address] [place] [address], [place] [address] Jan, [facility] [address] [id number] [address] [place] [address], [place] [address] 08 Jan, 2013 [facility] [address] [id number] [address] [place] [address], [place] [address] Jan, [facility] [address] [id number] [address] [place] [address], [place] [address] 28 Dec, 2012 [facility] [address] [id number] [address] [place] [address], [place] [address] 27 Dec, 2012 [facility] [address] [id number] [address] [place] [address], [place] [address] 18 Dec, 2012 [facility] [address] [id number] [address] [place] [address], [place] [address] 11 Dec, 2012 [facility] [address] [id number] [address] [place] [address], [place] [address] Dec, [facility] [address] [id number] [address] [place] [address], [place] [address] Dec, [facility] [address] [place] [id number] Nov, [facility] [address] [id number] [address] [place] [address], [place] [address] Nov, [facility] [address] [id number] [address] [place] [address], [place] [address] Nov, [facility] [address] [id number] [address] [place] [address], [place] [address] Nov, [facility] [address] [id number] [address] [place] [address], [place] [address] Nov, [facility] [address] [id number] [address] [place] [address], [place] [address] Oct, [facility] [address] [id number] [address] [place] [address], [place] [address] Oct, [facility] [address] [id number] [address] [place] [address], [place] [address] Oct, [facility] [address] [id number] [address] [place] [address], [place] [address] Oct, [facility] [address] [id number] [address] [place] [address], [place] [address] Oct, [facility] [address] [id number] [address] [place] [address], [place] [address] Oct, [facility] [address] [id number] [address] [place] [address], [place] [address] Oct, [facility] [address] [id number] [address] [place] [address], [place] [address] Oct, [facility] [address] [id number] [address] [place] [address], [place] [address] Sep, [facility] [address] [id number] [address] [place] [address] Sep, [facility] [address] [id number] [address] [place] [address] Sep, [facility] [address] [id number] [address] [place] [address] Sep, [facility] [address] [id number] [address] [place] [address] Sep, [facility] [address] [id number] [address] [place] [address] Sep, [facility] [address] [id number] [address] [place] [address] Sep, [facility] [address] [id number] [address] [place] [address] Sep, [facility] [address] [id number] [address] [place] [address] Sep, [facility] [address] [id number] [address] [place] [address] Sep, [facility] [address] [id number] [address] [place] [address] Sep, [facility] [address] [id number] [address] [place] [address] Sep, [facility] [address] [id number] [address] [place] [address] Sep, [facility] [address] [id number] [address] [place] [address] Sep, [facility] [address] [id number] [address] [place] [address] Sep, [facility] [address] [id number] [address] [place] [address] Sep, IMMUNIZATIONS No Known Immunizations SOCIAL HISTORY Never Assessed REASON FOR VISIT EMR-[facility] [place] PLAN OF CARE VITAL SIGNS MEDICATIONS Unknown Medications RESULTS No Results PROCEDURES No Known procedures INSTRUCTIONS MEDICATIONS ADMINISTERED No Known Medications MEDICAL (GENERAL) HISTORY Type Description Date Medical History hypertension Medical History type I diabetes Medical History chronic renal insufficiency Surgical History gastric pacemaker 2008 Hospitalization History nausea 2011
--- OUTSIDE RECORDS SUMMARY | 2020-04-17 21:37 | XMS REPORT ---
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 Name Role Phone BISMARK PATIÑO Unavailable PROBLEMS Type Condition ICD9-CM Code SQI17-BX Code Onset Dates Condition S tatus SNOMED Code Problem Hypertension, essential I10 Active 20414998 Problem Mood disorder F39 Active 965729 05 Problem Chronic fatigue R53.82 Active 8422 9001 Problem Type 1 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 Active 77696925 Problem Type 1 diabetes mellitus with other diab etic neurological complication E10.49 Active 03221641 Problem Gastroparesis K31.84 Active 549887 006 Problem Type 1 diabetes mellitus with hyperglycemia E10.65 Active [id number] Problem 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 [address] [id number] [address] [place] [id number] Oct, Dental examination Z01.20 an d Caries K02.9 [facility] [address] [id number] [address] [place] [id number] Oct, Cutaneous abscess of left fo ot L02.612 and Cellulitis of left lower limb L03.116 [facility] [address] [address] Oct, Dental examination Z01.20 an d Pain, dental K08.89 [facility] [id number] [place] [phone] Sep, Left foot pain M79.672 and L eft anterior knee pain M25.562 [facility] [address] [facility] [id number] [address] [place] [id number] Sep, Type 1 diabetes mellitus wit h other diabetic neurological complication E10.49 [facility] [address] [facility] [id number] [address] [place] [phone] Sep, [facility] [address] [facility] [id number] [address] [place] [id number] 11 Aug, 2018 Type 1 diabetes mellitus wit h other diabetic neurological complication E10.49 [facility] [address] [facility] [id number] [address] [place] [id number] 10 Aug, 2018 Encounter for immunization Z 23 [facility] [address] [facility] [id number] [address] [place] [id number] 05 Aug, 2018 Type 1 diabetes mellitus wit h hyperglycemia E10.65 [facility] [address] [facility] [id number] [address] [place] [id number] 21 Jul, 2018 Type 1 diabetes mellitus wit h hyperglycemia E10.65 [facility] [address] [facility] [id number] [address] [place] [id number] 19 Jul, 2018 [facility] [address] [facility] [id number] [address] [place] [id number] 18 Jul, 2018 [facility] [address] [facility] [id number] [address] [place] [id number] 17 Jul, 2018 Type 1 diabetes mellitus wit h other diabetic neurological complication E10.49 [facility] [address] [facility] [id number] [address] [place] [id number] 17 Jul, 2018 Type 1 diabetes mellitus wit h other diabetic neurological complication E10.49 and Mood disorder F39 [facility] [address] [facility] [id number] [address] [place] [id number] Jun, [facility] [address] [facility] [id number] [address] [place] [id number] Jun, Type 1 diabetes mellitus wit h other diabetic neurological complication E10.49 and Chronic fatigue R53.82 [facility] [address] [id number] [address] [place] [id number] May, Type 1 diabetes mellitus wit h other diabetic neurological complication E10.49 [facility] [address] [id number] [address] [place] [phone] May, [facility] [address] [facility] [id number] [address] [place] [phone] May, [facility] [address] [facility] [id number] [address] [place] [id number] Apr, [facility] [address] [facility] [id number] [address] [place] [id number] Apr, Type 1 diabetes mellitus wit h other diabetic neurological complication E10.49 [facility] [address] [facility] [id number] [address] [place] [id number] March, [facility] [address] [facility] [id number] [address] [place] [id number] Feb, [facility] [address] [facility] [id number] [address] [place] [phone] Feb, Type 1 diabetes mellitus wit h other diabetic neurological complication E10.49 ; Tobacco abuse Z72.0 and Tobacco abuse counseling Z71.6 [facility] [address] [facility] [id number] [address] [place] [id number] Jan, Type 1 diabetes mellitus wit h hyperglycemia E10.65 [facility] [address] [id number] [address] [place] [phone] Jan, [facility] [address] [facility] [id number] [address] [place] [id number] Dec, Tobacco abuse Z72.0 [facility] [address] [facility] [id number] [address] [place] [id number] Dec, Type 1 diabetes mellitus wit h hyperglycemia E10.65 [facility] [address] [facility] [id number] [address] [place] [id number] Dec, Type 1 diabetes mellitus wit h hyperglycemia E10.65 ; Tobacco abuse Z72.0 and Tobacco abuse counseling Z71.6 [facility] [address] [facility] [id number] [address] [place] [id number] Nov, Type 1 diabetes mellitus wit h hyperglycemia E10.65 [facility] [address] [facility] [id number] [address] [place] [id number] Oct, Type 1 diabetes mellitus wit h hyperglycemia E10.65 [facility] [address] [facility] [id number] [address] [place] [id number] Oct, Type 1 diabetes mellitus wit h hyperglycemia E10.65 [facility] [address] [facility] [id number] [address] [place] [phone] Sep, Type 1 diabetes mellitus wit h hyperglycemia E10.65 [facility] [address] [facility] [id number] [address] [place] [id number] Aug, Type 1 diabetes mellitus wit h hyperglycemia E10.65 [facility] [address] [facility] [id number] [address] [place] [id number] Aug, [facility] [address] [facility] [id number] [address] [place] [id number] Aug, Type 1 diabetes mellitus wit h hyperglycemia E10.65 [facility] [address] [facility] [id number] [address] [place] [id number] Aug, Encounter for immunization Z 23 [facility] [address] [facility] [id number] [address] [place] [id number] Aug, Type 1 diabetes mellitus wit h hyperglycemia E10.65 [facility] [address] [facility] [id number] [address] [place] [id number] Jul, Type 1 diabetes mellitus wit h hyperglycemia E10.65 [facility] [address] [facility] [id number] [address] [place] [id number] Jul, Type 1 diabetes mellitus wit h hyperglycemia E10.65 [facility] [address] [facility] [id number] [address] [place] [id number] May, Type 1 diabetes mellitus wit h hyperglycemia E10.65 [facility] [address] [id number] [address] [place] [id number] May, [facility] [address] [id number] [address] [place] [id number] Apr, [facility] [address] [facility] [id number] [address] [place] [id number] Apr, Type 1 diabetes mellitus wit h hyperglycemia E10.65 [facility] [address] [id number] [address] [place] [phone] March, [facility] [address] [id number] [address] [place] [id number] March, [facility] [address] [id number] [address] [place] [id number] Jan, [facility] [address] [facility] [id number] [address] [place] [id number] Jan, [facility] [address] [id number] [address] [place] [id number] Jan, Type 1 diabetes mellitus wit h diabetic polyneuropathy E10.42 [facility] [address] [facility] [id number] [address] [place] [id number] Jan, Type 1 diabetes mellitus wit h hyperglycemia E10.65 ; Excessive cerumen in both ear canals H61.23 and Controlled diabetes mellitus type 1 without complications E10.9 [facility] [address] [id number] [address] [place] [id number] Dec, [facility] [address] [facility] [id number] [address] [place] [id number] Dec, [facility] [address] [facility] [id number] [address] [place] [phone] Dec, [facility] [address] [facility] [id number] [address] [place] [phone] Dec, [facility] [address] [id number] [address] [place] [id number] Nov, [facility] [address] [id number] [address] [place] [id number] Nov, [facility] [address] [facility] [id number] [address] [place] [id number] Oct, Type 1 diabetes mellitus wit h hyperglycemia E10.65 [facility] [address] [id number] [address] [place] [phone] Sep, [facility] [address] [id number] [address] [place] [phone] Sep, [facility] [address] [facility] [id number] [address] [place] [id number] Sep, Controlled diabetes mellitus type 1 without complications E10.9 [facility] [address] [facility] [id number] [address] [place] [phone] Sep, [facility] [address] [id number] [address] [place] [address] [id number] Aug, Dental caries K02.9 [facility] [address] [facility] [id number] [address] [place] [phone] Aug, Type 1 diabetes mellitus wit h diabetic polyneuropathy E10.42 [facility] [address] [id number] [address] [place] [phone] Aug, [facility] [address] [facility] [id number] [address] [place] [id number] Aug, [facility] [address] [id number] [address] [place] [id number] Aug, [facility] [address] [facility] [id number] [address] [place] [id number] Jul, Type 1 diabetes mellitus wit h hyperglycemia E10.65 [facility] [address] [id number] [address] [place] [phone] Jul, Type 1 diabetes mellitus wit h hyperglycemia E10.65 ; Tooth pain K08.8 and Encounter for immunization Z23 [facility] [address] [id number] [address] [place] [address] [id number] 08 Jul, 2016 Dental examination Z01.20 [facility] [address] [id number] [address] [place] [id number] 08 Jul, 2016 [facility] [address] [id number] [address] [place] [id number] Jul, [facility] [address] [id number] [address] [place] [id number] Jul, [facility] [address] [id number] [address] [place] [phone] Jun, [facility] [address] [id number] [address] [place] [id number] May, [facility] [address] [id number] [address] [place] [phone] Apr, [facility] [address] [id number] [address] [place] [id number] Apr, [facility] [address] [id number] [address] [place] [phone] Apr, [facility] [address] [id number] [address] [place] [id number] March, [facility] [address] [id number] [address] [place] [id number] March, [facility] [address] [id number] [address] [place] [id number] Feb, [facility] [address] [id number] [address] [place] [phone] Feb, [facility] [address] [id number] [address] [place] [id number] Feb, Type 1 diabetes mellitus wit h hyperglycemia E10.65 [facility] [address] [id number] [address] [place] [id number] Jan, [facility] [address] [facility] [id number] [address] [place] [phone] Jan, [facility] [address] [facility] [id number] [place] [id number] Jan, [facility] [address] [facility] [id number] [address] [place] [id number] Jan, [facility] [id number] [place] [phone] Dec, [facility] [id number] [place] [phone] Nov, [facility] [id number] [place] [phone] Nov, [facility] [id number] [place] [phone] Oct, [facility] [address] [id number] Oct, Type 1 diabetes mellitus wit h 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 ; Type 1 diabetes mellitus with hyperglycemia E10.65 ; Gastroparesis K31.84 and Esophageal stricture K22.2 [facility] [address] [id number] Oct, [facility] [address] [id number] Sep, [facility] [address] [id number] Sep, Type 1 diabetes mellitus wit h other diabetic neurological complication E10.49 [facility] [id number] [place] [phone] Aug, Encounter for immunization Z 23 [facility] [address] [id number] [address] [place] [id number] 19 Aug, 2015 [facility] [address] [id number] Aug, [facility] [address] [id number] [address] [place] [phone] Jul, [facility] [address] [id number] [address] [place] [id number] Jul, [facility] [address] [id number] [address] [place] [phone] Jun, [facility] [address] [id number] [address] [place] [phone] Jun, [facility] [address] [id number] [address] [place] [phone] Jun, [facility] [address] [id number] [address] [place] [phone] May, [facility] [address] [id number] [address] [place] [id number] May, [facility] [address] [id number] [address] [place] [id number] May, Diabetes type 1, controlled 250.01 [facility] [address] [id number] [address] [place] [id number] May, [facility] [address] [id number] [address] [place] [id number] May, [facility] [address] [id number] [address] [place] [address] [id number] Apr, Dental examination V72.2 [facility] [address] [id number] [address] [place] [phone] Apr, [facility] [address] [id number] [address] [place] [id number] Apr, [facility] [address] [id number] [address] [place] [id number] Apr, [facility] [address] [id number] [address] [place] [phone] Apr, [facility] [address] [id number] [address] [place] [phone] Apr, [facility] [address] [id number] [address] [place] [address] [id number] Apr, Dental examination V72.2 [facility] [address] [id number] [address] [place] [id number] Apr, [facility] [address] [id number] [address] [place] [id number] Apr, [facility] [address] [id number] [address] [place] [id number] March, Diabetes mellitus type 1 250 .01 [facility] [address] [id number] [address] [place] [id number] March, [facility] [address] [id number] [address] [place] [id number] Feb, [facility] [address] [id number] [address] [place] [id number] Feb, [facility] [address] [id number] [address] [place] [phone] Jan, [facility] [address] [id number] [address] [place] [phone] Jan, [facility] [address] [id number] [address] [place] [phone] Jan, [facility] [address] [id number] [address] [place] [phone] Jan, [facility] [address] [id number] [address] [place] [phone] Dec, [facility] [address] [id number] [address] [place] [phone] Dec, [facility] [address] [id number] [address] [place] [phone] Nov, [facility] [address] [id number] [address] [place] [address], [place] [id number] Nov, [facility] [address] [id number] [address] [place] [address], [place] [phone] Nov, [facility] [address] [id number] [address] [place] [address], [place] [id number] Nov, [facility] [address] [id number] [address] [place] [address], [place] [id number] Nov, [facility] [address] [id number] [address] [place] [address], [place] [id number] Nov, [facility] [address] [id number] [address] [place] [address], [place] [id number] Nov, [facility] [address] [id number] [address] [place] [address], [place] [id number] Oct, [facility] [address] [id number] [address] [place] [address], [place] [id number] Oct, [facility] [address] [id number] [address] [place] [address], [place] [id number] Sep, [facility] [address] [id number] [address] [place] [address], [place] [phone] Aug, [facility] [address] [id number] [address] [place] [address], [place] [id number] Aug, [facility] [address] [id number] [address] [place] [address], [place] [id number] Aug, [facility] [address] [id number] [address] [place] [address], [place] [id number] Aug, [facility] [address] [id number] [address] [place] [address], [place] [id number] Aug, [facility] [address] [id number] [address] [place] [address], [place] [id number] Aug, [facility] [address] [id number] [address] [place] [address], [place] [id number] Aug, [facility] [address] [id number] [address] [place] [address], [place] [id number] Aug, [facility] [address] [id number] [address] [place] [address], [place] [id number] Aug, [facility] [address] [id number] [address] [place] [address], [place] [id number] Aug, [facility] [address] [id number] [address] [place] [address], [place] [id number] Aug, [facility] [address] [id number] [address] [place] [address], [place] [id number] Aug, [facility] [address] [id number] [address] [place] [address], [place] [id number] Aug, [facility] [address] [id number] [address] [place] [address], [place] [id number] Aug, [facility] [address] [id number] [address] [place] [address], [place] [id number] Jul, [facility] [address] [id number] [address] [place] [address], [place] [id number] Jul, [facility] [address] [id number] [address] [place] [address], [place] [id number] Jul, [facility] [address] [id number] [address] [place] [address], [place] [id number] Jul, [facility] [address] [id number] [address] [place] [address], [place] [id number] Jun, [facility] [address] [id number] [address] [place] [address], [place] [id number] Jun, [facility] [address] [id number] [address] [place] [address], [place] [id number] Jun, [facility] [address] [id number] [address] [place] [address], [place] [id number] Jun, [facility] [address] [id number] [address] [place] [address] [place] [id number] May, [facility] [address] [id number] [place] [id number] May, [facility] [address] [id number] [address] [place] [address], [place] [address] May, [facility] [address] [id number] [address] [place] [address], [place] [id number] May, [facility] [address] [id number] [address] [place] [address], [place] [id number] May, [facility] [address] [id number] [address] [place] [address], [place] [id number] May, [facility] [address] [id number] [address] [place] [address], [place] [address] May, [facility] [address] [id number] [address] [place] [address], [place] [address] May, [facility] [address] [id number] [address] [place] [address], [place] [address] May, [facility] [address] [id number] [address] [place] [address], [place] [address] May, [facility] [address] [id number] [address] [place] [address], [place] [address] May, [facility] [address] [id number] [address] [place] [address], [place] [address] May, [facility] [address] [id number] [address] [place] [address], [place] [address] May, [facility] [address] [id number] [address] [place] [address], [place] [address] Apr, [facility] [address] [id number] [address] [place] [address], [place] [address] Apr, [facility] [address] [id number] [address] [place] [address], [place] [address] Apr, [facility] [address] [id number] [facility] [address] Apr, [facility] [address] [id number] [facility] [place] [address] Apr, [facility] [address] [id number] [facility] [place] [address] Apr, [facility] [address] [id number] [address] [place] [address], [place] [address] Apr, [facility] [address] [id number] [address] [place] [address], [place] [address] Apr, [facility] [address] [id number] [address] [place] [address], [place] [address] Apr, [facility] [address] [id number] [address] [place] [address], [place] [address] Apr, [facility] [address] [id number] [address] [place] [address], [place] [address] Apr, [facility] [address] [id number] [address] [place] [address], [place] [address] Apr, [facility] [address] [id number] [address] [place] [address], [place] [address] Apr, [facility] [address] [id number] [address] [place] [address], [place] [address] Apr, [facility] [address] [id number] [address] [place] [address], [place] [address] March, [facility] [address] [id number] [address] [place] [address], [place] [address] March, [facility] [address] [id number] [address] [place] [address], [place] [address] March, [facility] [address] [id number] [address] [place] [address], [place] [address] March, [facility] [address] [id number] [address] [place] [address], [place] [address] March, [facility] [address] [id number] [facility] [place] [address] March, [facility] [address] [id number] [address] [place] [address], [place] [address] March, [facility] [address] [id number] [address] [place] [address], [place] [address] March, [facility] [address] [id number] [address] [place] [address], [place] [address] March, [facility] [address] [id number] [address] [place] [address], [place] [address] March, [facility] [address] [id number] [address] [place] [address], [place] [address] Feb, [facility] [address] [id number] [address] [place] [address], [place] [address] Feb, [facility] [address] [id number] [address] [place] [address], [place] [address] Feb, [facility] [address] [id number] [address] [place] [address], [place] [address] Feb, [facility] [address] [id number] [address] [place] [address], [place] [address] Feb, [facility] [address] [id number] [address] [place] [address], [place] [address] Feb, [facility] [address] [id number] [address] [place] [address], [place] [address] Feb, [facility] [address] [id number] [address] [place] [address], [place] [address] Feb, [facility] [address] [id number] [address] [place] [address], [place] [address] Jan, [facility] [address] [id number] [address] [place] [address], [place] [address] Jan, [facility] [address] [id number] [facility] [place] [address] 18 Jan, 2014 [facility] [address] [id number] [address] [place] [address], [place] [id number] 18 Jan, 2014 [facility] [address] [id number] [facility] [place] [address] Jan, [facility] [address] [id number] [address] [place] [address], [place] [address] Jan, [facility] [address] [id number] [address] [place] [address], [place] [address] Jan, [facility] [address] [id number] [address] [place] [address], [place] [address] Jan, [facility] [address] [id number] [address] [place] [address], [place] [address] Jan, [facility] [address] [id number] [address] [place] [address], [place] [address] Jan, [facility] [address] [id number] [address] [place] [address], [place] [address] Dec, [facility] [address] [id number] [address] [place] [address], [place] [address] Dec, [facility] [address] [id number] [address] [place] [address], [place] [address] Nov, [facility] [address] [id number] [address] [place] [address], [place] [address] Nov, [facility] [address] [id number] [address] [place] [address], [place] [address] Nov, [facility] [address] [id number] [address] [place] [address], [place] [address] Nov, [facility] [address] [id number] [address] [place] [address], [place] [address] Nov, [facility] [address] [id number] [address] [place] [address], [place] [address] Nov, [facility] [address] [id number] [address] [place] [address], [place] [address] Nov, [facility] [address] [id number] [address] [place] [address], [place] [address] Nov, [facility] [address] [id number] [address] [place] [address], [place] [address] Oct, [facility] [address] [id number] [address] [place] [address], [place] [address] Oct, [facility] [address] [id number] [address] [place] [address], [place] [address] Oct, [facility] [address] [id number] [address] [place] [address], [place] [address] Oct, [facility] [address] [id number] [address] [place] [address], [place] [address] Oct, [facility] [address] [id number] [address] [place] [address], [place] [address] Oct, [facility] [address] [id number] [address] [place] [address], [place] [address] Sep, [facility] [address] [id number] [address] [place] [phone] Sep, [facility] [address] [id number] [address] [place] [id number] Sep, [facility] [address] [id number] [address] [place] [phone] Sep, [facility] [address] [id number] [address] [place] [address], [place] [address] Sep, [facility] [address] [id number] [address] [place] [address], [place] [address] Aug, [facility] [address] [id number] [address] [place] [id number] Aug, [facility] [address] [id number] [address] [place] [id number] Aug, [facility] [address] [id number] [address] [place] [address], [place] [address] Aug, [facility] [address] [id number] [address] [place] [address], [place] [address] Aug, [facility] [address] [id number] [address] [place] [address], [place] [address] Aug, [facility] [address] [id number] [address] [place] [address], [place] [address] Jul, [facility] [address] [id number] [address] [place] [address], [place] [address] Jul, [facility] [address] [id number] [address] [place] [address], [place] [address] Jul, [facility] [address] [id number] [address] [place] [address], [place] [address] Jun, [facility] [address] [id number] [address] [place] [address], [place] [address] Jun, [facility] [address] [id number] [address] [place] [address], [place] [address] May, [facility] [address] [id number] [address] [place] [address], [place] [address] May, [facility] [address] [id number] [address] [place] [address], [place] [address] Apr, [facility] [address] [id number] [address] [place] [address], [place] [address] Apr, [facility] [address] [id number] [address] [place] [address], [place] [address] Apr, [facility] [address] [id number] [address] [place] [address], [place] [address] March, [facility] [address] [id number] [address] [place] [address], [place] [address] Feb, [facility] [address] [id number] [address] [place] [address], [place] [address] [address] [facility] [address] [id number] [address] [place] [address], [place] [address] 28 Jan, 2013 [facility] [address] [id number] [address] [place] [address], [place] [address] Jan, [facility] [address] [id number] [address] [place] [address], [place] [address] Jan, [facility] [address] [id number] [address] [place] [address], [place] [id number] [address], [address] [facility] [address] [id number] [address] [place] [address], [place] [address] Jan, [facility] [address] [id number] [address] [place] [address], [place] [address] Dec, [facility] [address] [id number] [address] [place] [address], [place] [address] Dec, [facility] [address] [id number] [address] [place] [address], [place] [address] Dec, [facility] [address] [id number] [address] [place] [address], [place] [address] Dec, [facility] [address] [id number] [address] [place] [address], [place] [address] Dec, [facility] [address] [id number] [address] [place] [address], [place] [address] Dec, [facility] [place] [id number] [address], [address] [facility] [address] [id number] [address] [place] [address], [place] [address] Nov, [facility] [address] [id number] [address] [place] [address], [place] [address] Nov, [facility] [address] [id number] [address] [place] [address] [address] Nov, [facility] [address] [id number] [address] [place] [address], [place] [address] Nov, [facility] [address] [id number] [address] [place] [address], [place] [address] Oct, [facility] [address] [id number] [address] [place] [address], [place] [address] Oct, [facility] [address] [id number] [address] [place] [address], [place] [address] Oct, [facility] [address] [id number] [address] [place] [address], [place] [address] Oct, [facility] [address] [id number] [address] [place] [address], [place] [address] Oct, [facility] [address] [id number] [address] [place] [address], [place] [address] Oct, [facility] [address] [id number] [address] [place] [address], [place] [address] Oct, [facility] [address] [id number] [address] [place] [address], [place] [address] Oct, [facility] [address] [id number] [address] [place] [address], [place] [address] Sep, [facility] [address] [id number] [address] [place] [address], [place] [address] Sep, [facility] [address] [id number] [address] [place] [address], [place] [address] Sep, [facility] [address] [id number] [address] [place] [address], [place] [address] Sep, [facility] [address] [id number] [address] [place] [address], [place] [address] Sep, [facility] [address] [id number] [address] [place] [address], [place] [address] Sep, [facility] [address] [id number] [address] [place] [phone] Sep, [facility] [address] [id number] [address] [place] [id number] Sep, [facility] [address] [id number] [address] [place] [id number] Sep, [facility] [address] [id number] [address] [place] [id number] Sep, [facility] [address] [id number] [address] [place] [address] Sep, [facility] [address] [id number] [address] [place] [id number] Sep, [facility] [address] [id number] [address] [place] [id number] Sep, [facility] [address] [id number] [address] [place] [id number] Sep, [facility] [address] [id number] [address] [place] [id number] Sep, [facility] [address] [id number] [address] [place] [id number] Sep, IMMUNIZATIONS No Known Immunizations SOCIAL HISTORY Never Assessed REASON FOR VISIT Controlled Med Refill 10/31/18 PLAN OF CARE VITAL SIGNS MEDICATIONS Medication Instructions Dosage Frequency Start Date End Date Duration S tatus Diazepam 10 mg Orally 3 times a day 1 tablet 8h 28 days Active RESULTS No Results PROCEDURES No Known procedures INSTRUCTIONS MEDICATIONS ADMINISTERED No Known Medications MEDICAL (GENERAL) HISTORY Type Description Date Medical History hypertension Medical History type I diabetes Medical History chronic renal insufficiency Surgical History gastric pacemaker 2008 Hospitalization History nausea 2011
--- OUTSIDE RECORDS SUMMARY | 2020-04-17 21:37 | XMS REPORT ---
Author Author Curt PATIÑO Organization [facility] [place] Address [address] [place] [address] Care Team Providers Care Magnetic Observer Name Role Phone BISMARK PATIÑO Unavailable PROBLEMS Type Condition ICD9-CM Code LOZ93-WX Code Onset Dates Condition S tatus SNOMED Code Problem Hypertension, essential I10 Active 45155035 Problem Mood disorder F39 Active 735206 05 Problem Chronic fatigue R53.82 Active 8422 9001 Problem Type 1 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 Active 24170691 Problem Type 1 diabetes mellitus with other diab etic neurological complication E10.49 Active 83877573 Problem Gastroparesis K31.84 Active 326089 006 Problem Type 1 diabetes mellitus with hyperglycemia E10.65 Active 764978511299721 Problem 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 Active [id number] ALLERGIES No Information ENCOUNTERS Encounter Location Date Diagnosis [place] [id number] [place] [address] Oct, [facility] [place] [address] [place] [id number] [address] [place] [address] Oct, [place] [address] [place] [id number] [address] [place] [phone] Oct, Type 1 diabetes mellitus wit h other diabetic neurological complication E10.49 [facility] [address] [facility] [id number] [address] [place] [address] [id number] 06 Oct, 2018 Dental examination Z01.20 an d Caries K02.9 [place] [address] [place] [address] Oct, Cutaneous abscess of left fo ot L02.612 and Cellulitis of left lower limb L03.116 [place] [address] [place] [id number] [address] [place] [address] Oct, Dental examination Z01.20 an d Pain, dental K08.89 [facility] [address] [facility] [id number] [address] [place] [address] Sep, Left foot pain M79.672 and L eft anterior knee pain M25.562 [facility] [place] [address] [facility] [id number] [address] [place] [id number] Sep, Type 1 diabetes mellitus wit h other diabetic neurological complication E10.49 [facility] [place] [address] [facility] [id number] [address] [place] [phone] Sep, [facility] [place] [address] [place] [id number] [place] [phone] 11 Aug, 2018 Type 1 diabetes mellitus wit h other diabetic neurological complication E10.49 [facility] [place] [address] [place] [id number] [address] [place] [id number] 10 Aug, 2018 Encounter for immunization Z 23 [facility] [place] [address] [facility] [id number] [address] [place] [id number] 05 Aug, 2018 Type 1 diabetes mellitus wit h hyperglycemia E10.65 [facility] [place] [address] [place] [id number] [address] [place] [id number] 21 Jul, 2018 Type 1 diabetes mellitus wit h hyperglycemia E10.65 [facility] [place] [address] [place] [id number] [address] [place] [id number] 19 Jul, 2018 [facility] [place] [address] [facility] [id number] [address] [place] [id number] 18 Jul, 2018 [facility] [place] [address] [place] [id number] [address] [place] [address] Jul, Type 1 diabetes mellitus wit h other diabetic neurological complication E10.49 [facility] [place] [address] [place] [id number] [address] [place] [id number] 17 Jul, 2018 Type 1 diabetes mellitus wit h other diabetic neurological complication E10.49 and Mood disorder F39 [facility] [place] [address] [place] [id number] [address] [place] [id number] Jun, [facility] [place] [address] [id number] [address] [place] [address] Jun, Type 1 diabetes mellitus wit h other diabetic neurological complication E10.49 and Chronic fatigue R53.82 [facility] [place] [address] [id number] [address] [place] [address] May, Type 1 diabetes mellitus wit h other diabetic neurological complication E10.49 [facility] [place] [address] [id number] [address] [place] [phone] May, [facility] [place] [address] [id number] [address] [place] [phone] May, [facility] [place] [address] [id number] [address] [place] [phone] Apr, [facility] [place] [address] [id number] [address] [place] [id number] Apr, Type 1 diabetes mellitus wit h other diabetic neurological complication E10.49 [facility] [place] [address] [id number] [address] [place] [phone] March, [facility] [place] [address] [id number] [address] [place] [id number] Feb, [facility] [place] [address] [id number] [address] [place] [id number] Feb, Type 1 diabetes mellitus wit h other diabetic neurological complication E10.49 ; Tobacco abuse Z72.0 and Tobacco abuse counseling Z71.6 [facility] [place] [address] [id number] [address] [place] [address] Jan, Type 1 diabetes mellitus wit h hyperglycemia E10.65 [facility] [place] [address] [id number] [address] [place] [phone] Jan, [facility] [place] [address] [id number] [address] [place] [id number] Dec, Tobacco abuse Z72.0 [facility] [place] [address] [id number] [address] [place] [id number] Dec, Type 1 diabetes mellitus wit h hyperglycemia E10.65 [facility] [place] [address] [facility] [id number] [address] [place] [address] Dec, Type 1 diabetes mellitus wit h hyperglycemia E10.65 ; Tobacco abuse Z72.0 and Tobacco abuse counseling Z71.6 [facility] [place] [address] [facility] [id number] [address] [place] [address] Nov, Type 1 diabetes mellitus wit h hyperglycemia E10.65 [facility] [place] [address] [facility] [id number] [address] [place] [id number] Oct, Type 1 diabetes mellitus wit h hyperglycemia E10.65 [facility] [place] [address] [facility] [id number] [address] [place] [id number] Oct, Type 1 diabetes mellitus wit h hyperglycemia E10.65 [facility] [place] [address] [facility] [id number] [address] [place] [id number] Sep, Type 1 diabetes mellitus wit h hyperglycemia E10.65 [facility] [place] [address] [facility] [id number] [address] [place] [id number] Aug, Type 1 diabetes mellitus wit h hyperglycemia E10.65 [facility] [place] [address] [facility] [id number] [address] [place] [id number] Aug, [facility] [place] [address] [facility] [id number] [address] [place] [id number] Aug, Type 1 diabetes mellitus wit h hyperglycemia E10.65 [facility] [place] [address] [facility] [id number] [address] [place] [phone] Aug, Encounter for immunization Z 23 [facility] [place] [address] [facility] [id number] [address] [place] [id number] Aug, Type 1 diabetes mellitus wit h hyperglycemia E10.65 [facility] [place] [address] [facility] [id number] [address] [place] [id number] Jul, Type 1 diabetes mellitus wit h hyperglycemia E10.65 [facility] [place] [address] [id number] [address] [place] [id number] Jul, Type 1 diabetes mellitus wit h hyperglycemia E10.65 [facility] [place] [address] [id number] [address] [place] [id number] May, Type 1 diabetes mellitus wit h hyperglycemia E10.65 [facility] [place] [address] [id number] [address] [place] [phone] May, [facility] [place] [address] [id number] [address] [place] [id number] Apr, [facility] [place] [address] [id number] [address] [place] [id number] Apr, Type 1 diabetes mellitus wit h hyperglycemia E10.65 [facility] [place] [address] [id number] [address] [place] [id number] March, [facility] [place] [address] [id number] [address] [place] [id number] March, [facility] [place] [address] [id number] [address] [place] [id number] Jan, [facility] [place] [address] [id number] [address] [place] [id number] Jan, [facility] [place] [address] [id number] [address] [place] [address] Jan, Type 1 diabetes mellitus wit h diabetic polyneuropathy E10.42 [facility] [place] [address] [id number] [address] [place] [address] Jan, Type 1 diabetes mellitus wit h hyperglycemia E10.65 ; Excessive cerumen in both ear canals H61.23 and Controlled diabetes mellitus type 1 without complications E10.9 [facility] [place] [address] [id number] [address] [place] [address] Dec, [facility] [place] [address] [id number] [address] [place] [id number] Dec, [facility] [place] [address] [id number] [address] [place] [phone] Dec, [facility] [place] [address] [id number] [address] [place] [id number] Dec, [facility] [place] [address] [id number] [address] [place] [phone] Nov, [facility] [place] [address] [id number] [address] [place] [id number] Nov, [facility] [place] [address] [id number] [address] [place] [id number] Oct, Type 1 diabetes mellitus wit h hyperglycemia E10.65 [facility] [place] [address] [id number] [address] [place] [phone] Sep, [facility] [place] [address] [id number] [address] [place] [id number] Sep, [facility] [place] [address] [id number] [address] [place] [id number] Sep, Controlled diabetes mellitus type 1 without complications E10.9 [facility] [place] [address] [id number] [address] [place] [id number] Sep, [facility] [address] [id number] [address] [place] [address] [id number] Aug, Dental caries K02.9 [facility] [place] [address] [id number] [address] [place] [id number] Aug, Type 1 diabetes mellitus wit h diabetic polyneuropathy E10.42 [facility] [place] [address] [id number] [address] [place] [id number] Aug, [facility] [place] [address] [id number] [address] [place] [id number] Aug, [facility] [place] [address] [id number] [address] [place] [id number] Aug, [facility] [place] [address] [id number] [address] [place] [id number] Jul, Type 1 diabetes mellitus wit h hyperglycemia E10.65 [facility] [place] [address] [id number] [address] [place] [id number] Jul, Type 1 diabetes mellitus wit h hyperglycemia E10.65 ; Tooth pain K08.8 and Encounter for immunization Z23 [facility] [address] [id number] [address] [place] [address] [id number] 08 Jul, 2016 Dental examination Z01.20 [facility] [place] [address] [id number] [address] [place] [id number] 08 Jul, 2016 [facility] [place] [address] [id number] [address] [place] [id number] Jul, [facility] [place] [address] [id number] [address] [place] [phone] Jul, [facility] [place] [address] [id number] [address] [place] [phone] Jun, [facility] [place] [address] [id number] [address] [place] [phone] May, [facility] [place] [address] [id number] [address] [place] [phone] Apr, [facility] [place] [address] [id number] [address] [place] [id number] Apr, [facility] [place] [address] [id number] [address] [place] [phone] Apr, [facility] [place] [address] [id number] [address] [place] [phone] March, [facility] [place] [address] [id number] [address] [place] [phone] March, [facility] [place] [address] [id number] [address] [place] [id number] Feb, [facility] [place] [address] [id number] [address] [place] [id number] Feb, [facility] [place] [address] [id number] [address] [place] [phone] Feb, Type 1 diabetes mellitus wit h hyperglycemia E10.65 [facility] [place] [address] [facility] [id number] [address] [place] [phone] Jan, [facility] [place] [address] [facility] [id number] [address] [place] [phone] Jan, [facility] [place] [address] [facility] [id number] [place] [phone] Jan, [facility] [place] [address] [facility] [id number] [address] [place] [phone] Jan, [facility] [place] [address] [facility] [id number] [place] [phone] Dec, [facility] [place] [address] [place] [id number] [place] [address] Nov, [facility] [place] [address] [facility] [id number] [address] [place] [phone] Nov, [facility] [place] [address] [facility] [id number] [address] [place] [phone] Oct, [facility] [place] [address] [place] [id number] [place] [phone] 04 Oct, 2015 Type 1 diabetes mellitus wit h 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 ; Type 1 diabetes mellitus with hyperglycemia E10.65 ; Gastroparesis K31.84 and Esophageal stricture K22.2 [facility] [place] [address] [facility] [id number] [address] [place] [phone] Oct, [facility] [place] [address] [facility] [id number] [address] [place] [id number] Sep, [facility] [place] [address] [place] [id number] [place] [address] Sep, Type 1 diabetes mellitus wit h other diabetic neurological complication E10.49 [facility] [place] [address] [facility] [id number] [address] [place] [id number] Aug, Encounter for immunization Z 23 [facility] [place] [address] [id number] [address] [place] [phone] Aug, [facility] [place] [address] [id number] [address] [place] [id number] Aug, [facility] [place] [address] [id number] [address] [place] [phone] Jul, [facility] [place] [address] [id number] [address] [place] [phone] Jul, [facility] [place] [address] [id number] [address] [place] [id number] Jun, [facility] [place] [address] [id number] [address] [place] [phone] Jun, [facility] [place] [address] [id number] [address] [place] [phone] Jun, [facility] [place] [address] [id number] [address] [place] [id number] May, [facility] [place] [address] [id number] [address] [place] [id number] May, [facility] [place] [address] [id number] [address] [place] [id number] May, Diabetes type 1, controlled 250.01 [facility] [place] [address] [id number] [address] [place] [phone] May, [facility] [place] [address] [id number] [address] [place] [phone] May, [facility] [address] [id number] [address] [place] [address] [id number] Apr, Dental examination V72.2 [facility] [place] [address] [id number] [address] [place] [phone] Apr, [facility] [place] [address] [id number] [address] [place] [id number] Apr, [facility] [address] [id number] [address] [place] [id number] Apr, [facility] [address] [id number] [address] [place] [id number] Apr, [facility] [place] [address] [id number] [address] [place] [id number] Apr, [facility] [address] [id number] [address] [place] [address] [id number] Apr, Dental examination V72.2 [facility] [place] [address] [id number] [address] [place] [id number] Apr, [facility] [place] [address] [id number] [address] [place] [id number] Apr, [facility] [place] [address] [id number] [address] [place] [id number] March, Diabetes mellitus type 1 250 .01 [facility] [place] [address] [id number] [address] [place] [id number] March, [facility] [address] [id number] [address] [place] [id number] Feb, [facility] [address] [id number] [address] [place] [id number] Feb, [facility] [place] [address] [id number] [address] [place] [phone] Jan, [facility] [address] [id number] [address] [place] [phone] Jan, [facility] [address] [id number] [address] [place] [phone] Jan, [facility] [address] [id number] [address] [place] [phone] Jan, [facility] [address] [id number] [address] [place] [phone] Dec, [facility] [address] [id number] [address] [place] [address], [place] [address] Dec, [facility] [address] [id number] [address] [place] [address], [place] [address] Nov, [facility] [address] [id number] [address] [place] [address], [place] [address] Nov, [facility] [address] [id number] [address] [place] [address], [place] [address] Nov, [facility] [address] [id number] [address] [place] [address], [place] [address] Nov, [facility] [address] [id number] [address] [place] [address], [place] [id number] Nov, [facility] [address] [id number] [address] [place] [address], [place] [address] Nov, [facility] [address] [id number] [address] [place] [address], [place] [id number] Nov, [facility] [address] [id number] [address] [place] [address], [place] [address] Oct, [facility] [address] [id number] [address] [place] [address], [place] [id number] Oct, [facility] [address] [id number] [address] [place] [address], [place] [address] Sep, [facility] [address] [id number] [address] [place] [address], [place] [address] Aug, [facility] [address] [id number] [address] [place] [address], [place] [id number] Aug, [facility] [address] [id number] [address] [place] [address], [place] [address] Aug, [facility] [address] [id number] [address] [place] [address], [place] [id number] Aug, [facility] [address] [id number] [address] [place] [address], [place] [id number] Aug, [facility] [address] [id number] [address] [place] [address], [place] [address] Aug, [facility] [address] [id number] [address] [place] [address], [place] [address] Aug, [facility] [address] [id number] [address] [place] [address], [place] [id number] Aug, [facility] [address] [id number] [address] [place] [address], [place] [address] Aug, [facility] [address] [id number] [address] [place] [address], [place] [id number] Aug, [facility] [address] [id number] [address] [place] [address], [place] [address] Aug, [facility] [address] [id number] [address] [place] [address], [place] [address] Aug, [facility] [address] [id number] [address] [place] [address], [place] [id number] Aug, [facility] [address] [id number] [address] [place] [address], [place] [address] Aug, [facility] [address] [id number] [address] [place] [address], [place] [address] Jul, [facility] [address] [id number] [address] [place] [address], [place] [address] Jul, [facility] [address] [id number] [address] [place] [address], [place] [address] Jul, [facility] [address] [id number] [address] [place] [address], [place] [address] Jul, [facility] [address] [id number] [address] [place] [address], [place] [address] Jun, [facility] [address] [id number] [address] [place] [address], [place] [address] Jun, [facility] [address] [id number] [address] [place] [address] [place] [address] Jun, [facility] [address] [id number] [address] [place] [address], [place] [id number] Jun, [facility] [address] [id number] [address] [place] [address], [place] [address] May, [facility] [address] [id number] [address] [place] [address], [place] [address] May, [facility] [address] [id number] [address] [place] [address], [place] [address] May, [facility] [address] [id number] [address] [place] [address], [place] [address] May, [facility] [address] [id number] [address] [place] [address], [place] [address] May, [facility] [address] [id number] [address] [place] [address], [place] [address] May, [facility] [address] [id number] [address] [place] [address], [place] [address] May, [facility] [address] [id number] [address] [place] [address], [place] [address] May, [facility] [address] [address] [id number] [address] [place] [address], [place] [address] May, [facility] [address] [id number] [address] [place] [address], [place] [address] May, [facility] [address] [id number] [address] [place] [address], [place] [address] May, [facility] [address] [id number] [address] [place] [address], [place] [address] May, [facility] [address] [id number] [address] [place] [address], [place] [address] May, [facility] [address] [id number] [address] [place] [address], [place] [address] Apr, [facility] [address] [id number] [facility] [place] [address] Apr, [facility] [address] [id number] [facility] [place] [address] Apr, [facility] [address] [id number] [facility] [place] [address] Apr, [facility] [address] [id number] [address] [place] [address], [place] [address] Apr, [facility] [address] [id number] [address] [place] [address], [place] [address] Apr, [facility] [address] [id number] [address] [place] [address], [place] [address] Apr, [facility] [address] [id number] [address] [place] [address], [place] [address] Apr, [facility] [address] [id number] [address] [place] [address], [place] [address] Apr, [facility] [address] [id number] [address] [place] [address], [place] [address] Apr, [facility] [address] [id number] [address] [place] [address], [place] [address] Apr, [facility] [address] [id number] [address] [place] [address], [place] [address] Apr, [facility] [address] [id number] [address] [place] [address], [place] [address] Apr, [facility] [address] [id number] [address] [place] [address], [place] [address] Apr, [facility] [address] [id number] [address] [place] [address], [place] [address] March, [facility] [address] [id number] [address] [place] [address], [place] [address] March, [facility] [address] [id number] [address] [place] [address], [place] [address] March, [facility] [address] [id number] [facility] [place] [address] March, [facility] [address] [id number] [address] [place] [address], [place] [address] March, [facility] [address] [id number] [address] [place] [address], [place] [address] March, [facility] [address] [id number] [address] [place] [address], [place] [address] March, [facility] [address] [id number] [address] [place] [address], [place] [address] March, [facility] [address] [id number] [address] [place] [address], [place] [address] March, [facility] [address] [id number] [address] [place] [address], [place] [address] March, [facility] [address] [id number] [address] [place] [address], [place] [address] Feb, [facility] [address] [id number] [address] [place] [address], [place] [address] Feb, [facility] [address] [id number] [address] [place] [address], [place] [address] Feb, [facility] [address] [id number] [address] [place] [address], [place] [address] Feb, [facility] [address] [id number] [address] [place] [address], [place] [address] Feb, [facility] [address] [id number] [address] [place] [address], [place] [address] Feb, [facility] [address] [id number] [address] [place] [address], [place] [address] Feb, [facility] [address] [id number] [address] [place] [address], [place] [address] Feb, [facility] [address] [id number] [facility] [place] [address] 18 Jan, 2014 [facility] [address] [id number] [facility] [place] [address] 18 Jan, 2014 [facility] [address] [id number] [facility] [place] [address] 18 Jan, 2014 [facility] [address] [id number] [address] [place] [address], [place] [address] 18 Jan, 2014 [facility] [address] [id number] [address] [place] [address], [place] [address] Jan, [facility] [address] [id number] [address] [place] [address], [place] [address] Jan, [facility] [address] [id number] [address] [place] [address], [place] [address] Jan, [facility] [address] [id number] [address] [place] [address], [place] [address] Jan, [facility] [address] [id number] [address] [place] [address], [place] [address] Jan, [facility] [address] [id number] [address] [place] [address], [place] [address] Jan, [facility] [address] [id number] [address] [place] [address], [place] [address] Dec, [facility] [address] [id number] [address] [place] [address], [place] [address] Dec, [facility] [address] [id number] [address] [place] [address], [place] [address] Nov, [facility] [address] [id number] [address] [place] [address], [place] [address] Nov, [facility] [address] [id number] [address] [place] [address], [place] [address] Nov, [facility] [address] [id number] [address] [place] [address], [place] [address] Nov, [facility] [address] [id number] [address] [place] [address], [place] [address] 15 Nov, 2013 [facility] [address] [id number] [address] [place] [address], [place] [address] Nov, [facility] [address] [id number] [address] [place] [address], [place] [address] Nov, [facility] [address] [id number] [address] [place] [address], [place] [address] Nov, [facility] [address] [id number] [address] [place] [address], [place] [address] Oct, [facility] [address] [id number] [address] [place] [address], [place] [address] Oct, [facility] [address] [id number] [address] [place] [address], [place] [address] Oct, [facility] [address] [id number] [address] [place] [address], [place] [address] Oct, [facility] [address] [id number] [address] [place] [address], [place] [address] Oct, [facility] [address] [id number] [address] [place] [address], [place] [address] Oct, [facility] [address] [id number] [address] [place] [address], [place] [address] Sep, [facility] [address] [id number] [address] [place] [id number] Sep, [facility] [address] [id number] [address] [place] [address], [place] [address] Sep, [facility] [address] [id number] [address] [place] [address], [place] [address] Sep, [facility] [address] [id number] [address] [place] [id number] 05 Sep, 2013 [facility] [address] [id number] [address] [place] [id number] Aug, [facility] [address] [id number] [address] [place] [address], [place] [address] Aug, [facility] [address] [id number] [address] [place] [address], [place] [address] Aug, [facility] [address] [id number] [address] [place] [address], [place] [address] Aug, [facility] [address] [id number] [address] [place] [address], [place] [address] Aug, [facility] [address] [id number] [address] [place] [address], [place] [address] Aug, [facility] [address] [id number] [address] [place] [address], [place] [address] Jul, [facility] [address] [id number] [address] [place] [address], [place] [address] Jul, [facility] [address] [id number] [address] [place] [address], [place] [address] Jul, [facility] [address] [id number] [address] [place] [address], [place] [address] Jun, [facility] [address] [id number] [address] [place] [address], [place] [address] Jun, [facility] [address] [id number] [address] [place] [address], [place] [address] May, [facility] [address] [id number] [address] [place] [address], [place] [address] May, [facility] [address] [id number] [address] [place] [address], [place] [address] Apr, [facility] [address] [id number] [address] [place] [address], [place] [address] Apr, [facility] [address] [id number] [address] [place] [address], [place] [address] Apr, [facility] [address] [id number] [address] [place] [address], [place] [address] March, [facility] [address] [id number] [address] [place] [address], [place] [address] Feb, [facility] [address] [id number] [address] [place] [address], [place] [address] Feb, [facility] [address] [id number] [address] [place] [address], [place] [address] Jan, [facility] [address] [id number] [address] [place] [address], [place] [address] Jan, [facility] [address] [id number] [address] [place] [address], [place] [address] Jan, [facility] [address] [id number] [address] [place] [address], [place] [address] Jan, [facility] [address] [id number] [address] [place] [address], [place] [address] Jan, [facility] [address] [id number] [address] [place] [address], [place] [address] Dec, [facility] [place] [address] [id number] [address] [place] [address], [place] [address] Dec, [facility] [place] [address] [id number] [address] [place] [address], [place] [address] Dec, [facility] [place] [address] [id number] [address] [place] [address], [place] [address] Dec, [facility] [address] [id number] [address] [place] [address], [place] [address] Dec, [facility] [place] [address] [id number] [address] [place] [address], [place] [address] Dec, [facility] [address] [place] [id number] Nov, [facility] [place] [address] [id number] [address] [place] [address] [address] Nov, [facility] [address] [id number] [address] [place] [address], [place] [address] Nov, [facility] [address] [id number] [address] [place] [address], [place] [address] Nov, [facility] [address] [id number] [address] [place] [address], [place] [address] Nov, [facility] [address] [id number] [address] [place] [address], [place] [address] Oct, [facility] [address] [id number] [address] [place] [address], [place] [address] Oct, [facility] [address] [id number] [address] [place] [address], [place] [address] Oct, [facility] [address] [id number] [address] [place] [address], [place] [address] Oct, [facility] [address] [id number] [address] [place] [address], [place] [address] Oct, [facility] [address] [id number] [address] [place] [address], [place] [address] Oct, [facility] [address] [id number] [address] [place] [address], [place] [address] Oct, [facility] [address] [id number] [address] [place] [address], [place] [address] Oct, [facility] [address] [id number] [address] [place] [address], [place] [address] Sep, [facility] [address] [id number] [address] [place] [address], [place] [address] Sep, [facility] [address] [id number] [address] [place] [address], [place] [address] Sep, [facility] [address] [id number] [address] [place] [address], [place] [address] Sep, [facility] [address] [id number] [address] [place] [id number] 14 Sep, 2012 [facility] [place] [address] [id number] [address] [place] [id number] Sep, [facility] [place] [address] [id number] [address] [place] [id number] Sep, [facility] [place] [address] [id number] [address] [place] [id number] Sep, [facility] [place] [address] [id number] [address] [place] [id number] Sep, [facility] [place] [address] [id number] [address] [place] [id number] Sep, [facility] [place] [address] [id number] [address] [place] [id number] Sep, [facility] [place] [address] [id number] [address] [place] [phone] Sep, [facility] [place] [address] [id number] [address] [place] [id number] Sep, [facility] [place] [address] [id number] [address] [place] [id number] Sep, [facility] [place] [address] [id number] [address] [place] [id number] Sep, [facility] [place] [address] [id number] [address] [place] [id number] Sep, IMMUNIZATIONS No Known Immunizations SOCIAL HISTORY Never Assessed REASON FOR VISIT swollen foot CBrumbackRn PLAN OF CARE VITAL SIGNS MEDICATIONS Unknown Medications RESULTS No Results PROCEDURES No Known procedures INSTRUCTIONS MEDICATIONS ADMINISTERED No Known Medications MEDICAL (GENERAL) HISTORY Type Description Date Medical History hypertension Medical History type I diabetes Medical History chronic renal insufficiency Surgical History gastric pacemaker 2008 Hospitalization History nausea 2011
--- OUTSIDE RECORDS SUMMARY | 2020-04-17 21:37 | XMS REPORT ---
Author Author Curt PATIÑO Organization [facility] Address [address] [place] [address] Care Team Providers Care Collections Agent Name Role Phone BISMARK PATIÑO Unavailable PROBLEMS Type Condition ICD9-CM Code [id number] Code Onset Dates Condition S tatus SNOMED Code Problem Hypertension, essential I10 Active 56179996 Problem Mood disorder F39 Active 870083 05 Problem Chronic fatigue R53.82 Active 8422 9001 Problem Type 1 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 Active 98816021 Problem Type 1 diabetes mellitus with other diab etic neurological complication E10.49 Active 40581049 Problem Gastroparesis K31.84 Active 859563 006 Problem Type 1 diabetes mellitus with hyperglycemia E10.65 Active [id number] Problem 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 Active 32304096 ALLERGIES Substance Reaction Event Type Date Status Cipro Unknown Drug Allergy Oct, Active Sulfa(sulfonamide Antibiotics) Unknown Non Drug Allergy Oct Active ENCOUNTERS Encounter Location Date Diagnosis [facility] [address] [id number] [address] [place] [address] [phone] Oct, Dental examination Z01.20 an d Caries K02.9 [facility] [address] [id number] [address] [place] [id number] Oct, Cutaneous abscess of left fo ot L02.612 and Cellulitis of left lower limb L03.116 [facility] [address] [id number] [address] [place] [phone] 04 Oct, 2018 Dental examination Z01.20 an d Pain, dental K08.89 [facility] [address] [id number] [address] [place] [id number] Sep, Left foot pain M79.672 and L eft anterior knee pain M25.562 [facility] [address] [facility] [id number] [address] [place] [id number] 12 Sep, 2018 Type 1 diabetes mellitus wit h other diabetic neurological complication E10.49 [facility] [address] [facility] [id number] [address] [place] [id number] 06 Sep, 2018 [facility] [address] [facility] [id number] [address] [place] [id number] 11 Aug, 2018 Type 1 diabetes mellitus wit h other diabetic neurological complication E10.49 [facility] [address] [facility] [id number] [address] [place] [id number] 10 Aug, 2018 Encounter for immunization Z 23 [facility] [address] [facility] [id number] [address] [place] [id number] 05 Aug, 2018 Type 1 diabetes mellitus wit h hyperglycemia E10.65 [facility] [address] [facility] [id number] [address] [place] [id number] 21 Jul, 2018 Type 1 diabetes mellitus wit h hyperglycemia E10.65 [facility] [address] [facility] [id number] [address] [place] [id number] 19 Jul, 2018 [facility] [address] [facility] [id number] [address] [place] [id number] 18 Jul, 2018 [facility] [address] [facility] [id number] [address] [place] [id number] 17 Jul, 2018 Type 1 diabetes mellitus wit h other diabetic neurological complication E10.49 [facility] [address] [facility] [id number] [address] [place] [id number] 17 Jul, 2018 Type 1 diabetes mellitus wit h other diabetic neurological complication E10.49 and Mood disorder F39 [facility] [address] [facility] [id number] [address] [place] [phone] Jun, [facility] [address] [facility] [id number] [address] [place] [id number] Jun, Type 1 diabetes mellitus wit h other diabetic neurological complication E10.49 and Chronic fatigue R53.82 [facility] [address] [facility] [id number] [address] [place] [id number] May, Type 1 diabetes mellitus wit h other diabetic neurological complication E10.49 [facility] [address] [id number] [address] [place] [phone] May, [facility] [address] [id number] [address] [place] [phone] May, [facility] [address] [id number] [address] [place] [id number] Apr, [facility] [address] [id number] [address] [place] [id number] Apr, Type 1 diabetes mellitus wit h other diabetic neurological complication E10.49 [facility] [address] [id number] [address] [place] [phone] March, [facility] [address] [facility] [id number] [address] [place] [phone] Feb, [facility] [address] [facility] [id number] [address] [place] [id number] Feb, Type 1 diabetes mellitus wit h other diabetic neurological complication E10.49 ; Tobacco abuse Z72.0 and Tobacco abuse counseling Z71.6 [facility] [address] [id number] [address] [place] [id number] Jan, Type 1 diabetes mellitus wit h hyperglycemia E10.65 [facility] [address] [id number] [address] [place] [id number] Jan, [facility] [address] [facility] [id number] [address] [place] [id number] Dec, Tobacco abuse Z72.0 [facility] [address] [id number] [address] [place] [id number] Dec, Type 1 diabetes mellitus wit h hyperglycemia E10.65 [facility] [address] [id number] [address] [place] [id number] 16 Dec, 2017 Type 1 diabetes mellitus wit h hyperglycemia E10.65 ; Tobacco abuse Z72.0 and Tobacco abuse counseling Z71.6 [facility] [address] [facility] [id number] [address] [place] [id number] Nov, Type 1 diabetes mellitus wit h hyperglycemia E10.65 [facility] [address] [facility] [id number] [address] [place] [id number] Oct, Type 1 diabetes mellitus wit h hyperglycemia E10.65 [facility] [address] [facility] [id number] [address] [place] [id number] Oct, Type 1 diabetes mellitus wit h hyperglycemia E10.65 [facility] [address] [facility] [id number] [address] [place] [id number] Sep, Type 1 diabetes mellitus wit h hyperglycemia E10.65 [facility] [address] [facility] [id number] [address] [place] [id number] Aug, Type 1 diabetes mellitus wit h hyperglycemia E10.65 [facility] [address] [facility] [id number] [address] [place] [id number] Aug, [facility] [address] [facility] [id number] [address] [place] [id number] Aug, Type 1 diabetes mellitus wit h hyperglycemia E10.65 [facility] [address] [facility] [id number] [address] [place] [phone] Aug, Encounter for immunization Z 23 [facility] [address] [facility] [id number] [address] [place] [id number] Aug, Type 1 diabetes mellitus wit h hyperglycemia E10.65 [facility] [address] [facility] [id number] [address] [place] [id number] Jul, Type 1 diabetes mellitus wit h hyperglycemia E10.65 [facility] [address] [facility] [id number] [address] [place] [id number] Jul, Type 1 diabetes mellitus wit h hyperglycemia E10.65 [facility] [address] [facility] [id number] [address] [place] [id number] May, Type 1 diabetes mellitus wit h hyperglycemia E10.65 [facility] [address] [facility] [id number] [address] [place] [phone] May, [facility] [address] [id number] [address] [place] [id number] Apr, [facility] [address] [id number] [address] [place] [id number] Apr, Type 1 diabetes mellitus wit h hyperglycemia E10.65 [facility] [address] [id number] [address] [place] [id number] March, [facility] [address] [id number] [address] [place] [id number] March, [facility] [address] [id number] [address] [place] [id number] Jan, [facility] [address] [facility] [id number] [address] [place] [id number] Jan, [facility] [address] [facility] [id number] [address] [place] [id number] Jan, Type 1 diabetes mellitus wit h diabetic polyneuropathy E10.42 [facility] [address] [id number] [address] [place] [id number] Jan, Type 1 diabetes mellitus wit h hyperglycemia E10.65 ; Excessive cerumen in both ear canals H61.23 and Controlled diabetes mellitus type 1 without complications E10.9 [facility] [address] [facility] [id number] [address] [place] [id number] Dec, [facility] [address] [id number] [address] [place] [phone] Dec, [facility] [address] [facility] [id number] [address] [place] [id number] Dec, [facility] [address] [facility] [id number] [address] [place] [phone] Dec, [facility] [address] [facility] [id number] [address] [place] [phone] Nov, [facility] [address] [id number] [address] [place] [phone] Nov, [facility] [address] [id number] [address] [place] [id number] Oct, Type 1 diabetes mellitus wit h hyperglycemia E10.65 [facility] [address] [id number] [address] [place] [phone] Sep, [facility] [address] [id number] [address] [place] [id number] Sep, [facility] [address] [id number] [address] [place] [phone] Sep, Controlled diabetes mellitus type 1 without complications E10.9 [facility] [address] [id number] [address] [place] [id number] Sep, [facility] [address] [id number] [address] [place] [address] [id number] Aug, Dental caries K02.9 [facility] [address] [id number] [address] [place] [id number] Aug, Type 1 diabetes mellitus wit h diabetic polyneuropathy E10.42 [facility] [address] [id number] [address] [place] [id number] Aug, [facility] [address] [facility] [id number] [address] [place] [id number] Aug, [facility] [address] [id number] [address] [place] [id number] Aug, [facility] [address] [facility] [id number] [address] [place] [id number] Jul, Type 1 diabetes mellitus wit h hyperglycemia E10.65 [facility] [address] [id number] [address] [place] [id number] Jul, Type 1 diabetes mellitus wit h hyperglycemia E10.65 ; Tooth pain K08.8 and Encounter for immunization Z23 [facility] [address] [id number] [address] [place] [address] [id number] Jul, 2016 Dental examination Z01.20 [facility] [address] [id number] [address] [place] [id number] 08 Jul, 2016 [facility] [address] [id number] [address] [place] [address], [place] [id number] 07 Jul, 2016 [facility] [address] [id number] [address] [place] [id number] Jul, [facility] [address] [id number] [address] [place] [address], [place] [phone] Jun, [facility] [address] [id number] [address] [place] [id number] May, [facility] [address] [id number] [address] [place] [id number] Apr, [facility] [address] [id number] [address] [place] [id number] Apr, [facility] [address] [id number] [address] [place] [phone] Apr, [facility] [address] [id number] [address] [place] [phone] March, [facility] [address] [id number] [address] [place] [id number] March, [facility] [address] [id number] [address] [place] [id number] Feb, [facility] [address] [id number] [address] [place] [phone] Feb, [facility] [address] [id number] [address] [place] [id number] Feb, Type 1 diabetes mellitus wit h hyperglycemia E10.65 [facility] [address] [id number] [address] [place] [id number] Jan, [facility] [address] [id number] [address] [place] [phone] Jan, [facility] [address] [facility] [id number] [address] [place] [phone] Jan, [facility] [address] [facility] [id number] [address] [place] [phone] Jan, [facility] [address] [facility] [id number] [address] [place] [id number] Dec, [facility] [address] [facility] [id number] [place] [phone] Nov, [facility] [address] [facility] [id number] [place] [phone] Nov, [facility] [address] [id number] [place] [phone] Oct, [facility] [address] [id number] Oct, Type 1 diabetes mellitus wit h 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 ; Type 1 diabetes mellitus with hyperglycemia E10.65 ; Gastroparesis K31.84 and Esophageal stricture K22.2 [facility] [address] [id number] [address] [place] [phone] Oct, [facility] [address] [id number] [address] [place] [id number] Sep, [facility] [address] [id number] Sep, Type 1 diabetes mellitus wit h other diabetic neurological complication E10.49 [facility] [address] [facility] [id number] [address] [place] [phone] Aug, Encounter for immunization Z 23 [facility] [address] [facility] [id number] [address] [place] [phone] Aug, [facility] [address] [id number] [address] [place] [phone] Aug, [facility] [address] [id number] [address] [place] [phone] Jul, [facility] [address] [id number] [address] [place] [id number] Jul, [facility] [address] [id number] [address] [place] [phone] Jun, [facility] [address] [id number] [address] [place] [phone] Jun, [facility] [address] [id number] [address] [place] [phone] Jun, [facility] [address] [id number] [address] [place] [phone] May, [facility] [address] [id number] [address] [place] [id number] May, [facility] [address] [id number] [address] [place] [id number] May, Diabetes type 1, controlled 250.01 [facility] [address] [id number] [address] [place] [phone] May, [facility] [address] [id number] [address] [place] [id number] May, [facility] [address] [id number] [address] [place] [id number] Apr, Dental examination V72.2 [facility] [address] [id number] [address] [place] [phone] Apr, [facility] [address] [id number] [address] [place] [phone] Apr, [facility] [address] [id number] [address] [place] [phone] Apr, [facility] [address] [id number] [address] [place] [id number] Apr, [facility] [address] [id number] [address] [place] [id number] Apr, [facility] [address] [id number] [address] [place] [address] [id number] Apr, Dental examination V72.2 [facility] [address] [id number] [address] [place] [id number] Apr, [facility] [address] [id number] [address] [place] [id number] Apr, [facility] [address] [id number] [address] [place] [id number] March, Diabetes mellitus type 1 250 .01 [facility] [address] [id number] [address] [place] [id number] March, [facility] [address] [id number] [address] [place] [phone] Feb, [facility] [address] [id number] [address] [place] [phone] Feb, [facility] [address] [id number] [address] [place] [phone] Jan, [facility] [address] [id number] [address] [place] [id number] Jan, [facility] [address] [id number] [address] [place] [id number] Jan, [facility] [address] [id number] [address] [place] [phone] Jan, [facility] [address] [id number] [address] [place] [phone] Dec, [facility] [address] [id number] [address] [place] [phone] Dec, [facility] [address] [id number] [address] [place] [phone] Nov, [facility] [address] [id number] [address] [place] [phone] Nov, [facility] [address] [id number] [address] [place] [address], [place] [address] Nov, [facility] [address] [id number] [address] [place] [address], [place] [phone] Nov, [facility] [address] [id number] [address] [place] [address], [place] [address] Nov, [facility] [address] [id number] [address] [place] [address], [place] [address] Nov, [facility] [address] [id number] [address] [place] [address], [place] [address] Nov, [facility] [address] [id number] [address] [place] [address], [place] [phone] Oct, [facility] [address] [id number] [address] [place] [address], [place] [address] Oct, [facility] [address] [id number] [address] [place] [address], [place] [address] Sep, [facility] [address] [id number] [address] [place] [address], [place] [address] Aug, [facility] [address] [id number] [address] [place] [address], [place] [address] Aug, [facility] [address] [id number] [address] [place] [address], [place] [address] Aug, [facility] [address] [id number] [address] [place] [address], [place] [address] Aug, [facility] [address] [id number] [address] [place] [address], [place] [address] Aug, [facility] [address] [id number] [address] [place] [address], [place] [address] Aug, [facility] [address] [id number] [address] [place] [address], [place] [address] Aug, [facility] [address] [id number] [address] [place] [address], [place] [address] Aug, [facility] [address] [id number] [address] [place] [address], [place] [address] Aug, [facility] [address] [id number] [address] [place] [address], [place] [address] Aug, [facility] [address] [id number] [address] [place] [address], [place] [address] Aug, [facility] [address] [id number] [address] [place] [address], [place] [address] Aug, [facility] [address] [id number] [address] [place] [address], [place] [address] Aug, [facility] [address] [id number] [address] [place] [address], [place] [address] Aug, [facility] [address] [id number] [address] [place] [address], [place] [address] Jul, [facility] [address] [id number] [address] [place] [address], [place] [address] Jul, [facility] [address] [id number] [address] [place] [address], [place] [address] Jul, [facility] [address] [id number] [address] [place] [address], [place] [address] Jul, [facility] [address] [id number] [address] [place] [address], [place] [address] Jun, [facility] [address] [id number] [address] [place] [address], [place] [address] Jun, [facility] [address] [id number] [address] [place] [address], [place] [address] Jun, [facility] [address] [id number] [address] [place] [address], [place] [address] Jun, [facility] [address] [id number] [address] [place] [address], [place] [address] May, [facility] [address] [id number] [address] [place] [address], [place] [address] May, [facility] [address] [id number] [address] [place] [address], [place] [address] May, [facility] [address] [id number] [address] [place] [address], [place] [address] May, [facility] [address] [id number] [address] [place] [address], [place] [address] May, [facility] [address] [id number] [address] [place] [address], [place] [address] May, [facility] [address] [id number] [address] [place] [address], [place] [address] May, [facility] [address] [id number] [address] [place] [address], [place] [address] May, [facility] [address] [id number] [address] [place] [address], [place] [address] May, [facility] [address] [id number] [address] [place] [address], [place] [address] May, [facility] [address] [id number] [address] [place] [address], [place] [address] May, [facility] [address] [id number] [address] [place] [address], [place] [address] May, [facility] [address] [id number] [address] [place] [address], [place] [address] May, [facility] [address] [id number] [address] [place] [address], [place] [address] Apr, [facility] [address] [id number] [address] [place] [address], [place] [address] Apr, [facility] [address] [id number] [address] [place] [address], [place] [address] Apr, [facility] [address] [id number] [address] [place] [address], [place] [address] Apr, [facility] [address] [id number] [facility] [place] [address] Apr, [facility] [address] [id number] [address] [place] [address], [place] [address] Apr, [facility] [address] [id number] [address] [place] [address], [place] [address] Apr, [facility] [address] [id number] [address] [place] [address], [place] [address] Apr, [facility] [address] [id number] [address] [place] [address], [place] [address] Apr, [facility] [address] [id number] [address] [place] [address], [place] [address] Apr, [facility] [address] [id number] [address] [place] [address], [place] [address] Apr, [facility] [address] [id number] [address] [place] [address], [place] [address] Apr, [facility] [address] [id number] [address] [place] [address], [place] [address] Apr, [facility] [address] [id number] [address] [place] [address], [place] [address] Apr, [facility] [address] [id number] [address] [place] [address], [place] [address] March, [facility] [address] [id number] [address] [place] [address], [place] [address] March, [facility] [address] [id number] [address] [place] [address], [place] [address] March, [facility] [address] [id number] [address] [place] [address], [place] [address] March, [facility] [address] [id number] [address] [place] [address], [place] [address] March, [facility] [address] [id number] [address] [place] [address], [place] [address] March, [facility] [address] [id number] [address] [place] [address], [place] [address] March, [facility] [address] [id number] [address] [place] [address], [place] [address] March, [facility] [address] [id number] [address] [place] [address], [place] [address] March, [facility] [address] [id number] [address] [place] [address], [place] [address] March, [facility] [address] [id number] [address] [place] [address], [place] [address] Feb, [facility] [address] [id number] [address] [place] [address], [place] [address] Feb, [facility] [address] [id number] [address] [place] [address], [place] [address] Feb, [facility] [address] [id number] [address] [place] [address], [place] [address] Feb, [facility] [address] [id number] [address] [place] [address], [place] [address] Feb, [facility] [address] [id number] [address] [place] [address], [place] [address] Feb, [facility] [address] [id number] [address] [place] [address], [place] [address] Feb, [facility] [address] [id number] [address] [place] [address], [place] [address] Feb, [facility] [address] [id number] [address] [place] [address], [place] [address] Jan, [facility] [address] [id number] [address] [place] [address], [place] [address] Jan, [facility] [address] [id number] [address] [place] [address], [place] [address] Jan, [facility] [address] [id number] [facility] [place] [address] 18 Jan, 2014 [facility] [address] [id number] [facility] [place] [address] Jan, [facility] [address] [id number] [facility] [place] [address] Jan, [facility] [address] [id number] [facility] [place] [address] Jan, [facility] [address] [id number] [address] [place] [address], [place] [address] Jan, [facility] [address] [id number] [address] [place] [address], [place] [address] Jan, [facility] [address] [id number] [address] [place] [address], [place] [address] Jan, [facility] [address] [id number] [address] [place] [address], [place] [address] Dec, [facility] [address] [id number] [address] [place] [address], [place] [address] Dec, [facility] [address] [id number] [address] [place] [address], [place] [address] Nov, [facility] [address] [id number] [address] [place] [address], [place] [address] Nov, [facility] [address] [id number] [address] [place] [address], [place] [address] Nov, [facility] [address] [id number] [address] [place] [address], [place] [address] Nov, [facility] [address] [id number] [address] [place] [address], [place] [address] Nov, [facility] [address] [id number] [address] [place] [address], [place] [address] Nov, [facility] [address] [id number] [address] [place] [address], [place] [address] Nov, [facility] [address] [id number] [address] [place] [address], [place] [address] Nov, [facility] [address] [id number] [address] [place] [address], [place] [address] Oct, [facility] [address] [id number] [address] [place] [address], [place] [address] Oct, [facility] [address] [id number] [address] [place] [address], [place] [address] Oct, [facility] [address] [id number] [address] [place] [address], [place] [address] Oct, [facility] [address] [id number] [address] [place] [address], [place] [address] Oct, [facility] [address] [id number] [address] [place] [address], [place] [address] Oct, [facility] [address] [id number] [address] [place] [address], [place] [address] Sep, [facility] [address] [id number] [address] [place] [address], [place] [address] Sep, [facility] [address] [id number] [address] [place] [address], [place] [address] Sep, [facility] [address] [id number] [address] [place] [address], [place] [address] Sep, [facility] [address] [id number] [address] [place] [address], [place] [address] Sep, [facility] [address] [id number] [address] [place] [address], [place] [address] 30 Aug, 2013 [facility] [address] [id number] [address] [place] [address], [place] [address] Aug, [facility] [address] [id number] [address] [place] [address], [place] [address] Aug, [facility] [address] [id number] [address] [place] [address], [place] [address] Aug, [facility] [address] [id number] [address] [place] [address], [place] [address] Aug, [facility] [address] [id number] [address] [place] [address], [place] [address] Aug, [facility] [address] [id number] [address] [place] [address], [place] [address] Jul, [facility] [address] [id number] [address] [place] [address], [place] [address] Jul, [facility] [address] [id number] [address] [place] [address], [place] [address] Jul, [facility] [address] [id number] [address] [place] [address], [place] [address] Jun, [facility] [address] [id number] [address] [place] [address], [place] [address] Jun, [facility] [address] [id number] [address] [place] [address], [place] [address] May, [facility] [address] [id number] [address] [place] [address], [place] [address] May, [facility] [address] [id number] [address] [place] [address], [place] [address] Apr, [facility] [address] [id number] [address] [place] [address], [place] [address] Apr, [facility] [address] [id number] [address] [place] [address], [place] [address] Apr, [facility] [address] [id number] [address] [place] [address], [place] [address] March, [facility] [address] [id number] [address] [place] [address], [place] [address] Feb, [facility] [address] [id number] [address] [place] [address], [place] [address] 04 Feb, 2013 [facility] [address] [id number] [facility] [place] [address] Jan, [facility] [address] [id number] [address] [place] [address], [place] [address] 20 Jan, 2013 [facility] [address] [id number] [address] [place] [address], [place] [address] Jan, [facility] [address] [id number] [address] [place] [address], [place] [address] 08 Jan, 2013 [facility] [address] [id number] [address] [place] [address], [place] [address] Jan, [facility] [address] [id number] [address] [place] [address], [place] [address] 28 Dec, 2012 [facility] [address] [id number] [address] [place] [address], [place] [address] Dec, [facility] [address] [id number] [address] [place] [address], [place] [address] 18 Dec, 2012 [facility] [address] [id number] [address] [place] [address], [place] [address] Dec, [facility] [address] [id number] [address] [place] [address], [place] [address] 05 Dec, 2012 [facility] [address] [id number] [address] [place] [address], [place] [address] 05 Dec, 2012 [facility] [address] [place] [id number] 14 Nov, 2012 [facility] [address] [id number] [address] [place] [address], [place] [address] Nov, [facility] [address] [id number] [address] [place] [address], [place] [address] 10 Nov, 2012 [facility] [address] [id number] [address] [place] [address], [place] [address] Nov, [facility] [address] [id number] [address] [place] [address], [place] [address] Nov, [facility] [address] [id number] [address] [place] [address], [place] [address] Oct, [facility] [address] [id number] [address] [place] [address], [place] [address] Oct, [facility] [address] [id number] [address] [place] [address], [place] [address] Oct, [facility] [address] [id number] [address] [place] [address], [place] [address] Oct, [facility] [address] [id number] [address] [place] [address], [place] [address] Oct, [facility] [address] [id number] [address] [place] [address], [place] [address] Oct, [facility] [address] [id number] [address] [place] [address], [place] [address] Oct, [facility] [address] [id number] [address] [place] [address], [place] [address] Oct, [facility] [address] [id number] [address] [place] [address], [place] [address] Sep, [facility] [address] [id number] [address] [place] [address], [place] [address] Sep, [facility] [address] [id number] [address] [place] [address], [place] [address] Sep, [facility] [address] [id number] [address] [place] [address], [place] [address] Sep, [facility] [address] [id number] [address] [place] [address], [place] [address] Sep, [facility] [address] [id number] [address] [place] [address], [place] [address] 14 Sep, 2012 [facility] [address] [id number] [address] [place] [address], [place] [address] Sep, [facility] [address] [id number] [address] [place] [address] Sep, [facility] [address] [id number] [address] [place] [address] Sep, [facility] [address] [id number] [address] [place] [address] Sep, [facility] [address] [id number] [address] [place] [address] Sep, [facility] [address] [id number] [address] [place] [address] Sep, [facility] [address] [id number] [address] [place] [address] Sep, [facility] [address] [id number] [address] [place] [address] Sep, [facility] [address] [id number] [address] [place] [address] Sep, [facility] [address] [id number] [address] [place] [address] Sep, IMMUNIZATIONS No Known Immunizations SOCIAL HISTORY Never Assessed REASON FOR VISIT Leg pain, left knee, ankle, and foot. Denies injuries, reports has been hurting for about 3-4 days before Thanksgiving. Was seen in [facility], xrays done, was told to soak in epson salt. Swelling was worse, went to ER in [place], was placed on a bx d/t WBC. CBrumbackRn PLAN OF CARE VITAL SIGNS Height 68 in 2018-10-24 Weight 153.5 lbs 2018-10-24 Temperature 98.0 degrees Fahrenheit 2018-10-24 Heart Rate 84 bpm 2018-10-24 Respiratory Rate 20 2018-10-24 BMI 23.34 kg/m2 2018-10-24 Blood pressure systolic 122 mmHg 2018-10-24 Blood pressure diastolic 80 mmHg 2018-10-24 MEDICATIONS Medication Instructions Dosage Frequency Start Date End Date Duration S tatus Enalapril Maleate 10 mg 1 tablet 24h 30 Active Keflex Active Diazepam 10 mg Orally 3 times a day 1 tablet 8h 28 days Active Viagra 100 mg Orally Once a day 1 tablet as needed 24h Feb, Active Genaro Contour Next Test - test blood sugar 6h Jul, Active NovoLog 100 UNIT/ML INJECT 45 UNITS SUBC UTANEOUSLY ONCE DAILY PER INSULIN PUMP Active Percocet 10-325 MG Orally every 6 hrs 1 tablet as needed 6h Oct, Active Glucagon Emergency 1 MG as directed May, 1 dose Active RESULTS No Results PROCEDURES Procedure Date Ordered Result Body Site [facility] VISIT ESTABLISHED PATIENT Oct 24, 2018 INSTRUCTIONS MEDICATIONS ADMINISTERED No Known Medications MEDICAL (GENERAL) HISTORY Type Description Date Medical History hypertension Medical History type I diabetes Medical History chronic renal insufficiency Surgical History gastric pacemaker 2008 Hospitalization History nausea 2011
--- OUTSIDE RECORDS SUMMARY | 2020-04-17 21:38 | XMS REPORT ---
Author Author Curt PATIÑO Organization [facility] Address [address] [place] [address] Care Team Providers Care Roll Repairer Name Role Phone BISMARK PATIÑO Unavailable PROBLEMS Type Condition ICD9-CM Code FAD81-HI Code Onset Dates Condition S tatus SNOMED Code Problem Hypertension, essential I10 Active 98885409 Problem Mood disorder F39 Active 293415 05 Problem Chronic fatigue R53.82 Active 8422 9001 Problem Type 1 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 Active 93755050 Problem Type 1 diabetes mellitus with other diab etic neurological complication E10.49 Active 89262833 Problem Gastroparesis K31.84 Active 414558 006 Problem Type 1 diabetes mellitus with hyperglycemia E10.65 Active [id number] Problem 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 [id number] [address] [place] [address] Sep, [place] [address] [place] [id number] [place] [address] Aug, Type 1 diabetes mellitus wit h other diabetic neurological complication E10.49 [facility] [address] [facility] [id number] [address] [place] [address] Aug, Encounter for immunization Z 23 [facility] [address] [facility] [id number] [address] [place] [address] 05 Aug, 2018 Type 1 diabetes mellitus wit h hyperglycemia E10.65 [facility] [address] [facility] [id number] [address] [place] [address] Jul, Type 1 diabetes mellitus wit h hyperglycemia E10.65 [place] [address] [facility] [id number] [address] [place] [address] Jul, [place] [address] [id number] [address] [place] [address] Jul, [facility] [address] [id number] [address] [place] [address] Jul, Type 1 diabetes mellitus wit h other diabetic neurological complication E10.49 [facility] [address] [id number] [address] [place] [address] Jul, Type 1 diabetes mellitus wit h other diabetic neurological complication E10.49 and Mood disorder F39 [facility] [address] [id number] [address] [place] [address] Jun, [facility] [address] [id number] [address] [place] [address] Jun, Type 1 diabetes mellitus wit h other diabetic neurological complication E10.49 and Chronic fatigue R53.82 [facility] [address] [id number] [address] [place] [address] May, Type 1 diabetes mellitus wit h other diabetic neurological complication E10.49 [facility] [address] [id number] [address] [place] [address] May, [facility] [address] [id number] [address] [place] [address] May, [facility] [address] [id number] [address] [place] [address] Apr, [facility] [address] [id number] [address] [place] [address] Apr, Type 1 diabetes mellitus wit h other diabetic neurological complication E10.49 [facility] [address] [id number] [address] [place] [address] March, [facility] [address] [id number] [address] [place] [address] Feb, [facility] [address] [id number] [address] [place] [address] Feb, Type 1 diabetes mellitus wit h other diabetic neurological complication E10.49 ; Tobacco abuse Z72.0 and Tobacco abuse counseling Z71.6 [facility] [address] [facility] [id number] [address] [place] [address] Jan, Type 1 diabetes mellitus wit h hyperglycemia E10.65 [facility] [address] [facility] [id number] [address] [place] [address] Jan, [facility] [address] [facility] [id number] [address] [place] [address] Dec, Tobacco abuse Z72.0 [facility] [address] [facility] [id number] [address] [place] [address] Dec, Type 1 diabetes mellitus wit h hyperglycemia E10.65 [facility] [address] [facility] [id number] [address] [place] [address] Dec, Type 1 diabetes mellitus wit h hyperglycemia E10.65 ; Tobacco abuse Z72.0 and Tobacco abuse counseling Z71.6 [facility] [address] [facility] [id number] [address] [place] [address] Nov, Type 1 diabetes mellitus wit h hyperglycemia E10.65 [facility] [address] [facility] [id number] [address] [place] [address] Oct, Type 1 diabetes mellitus wit h hyperglycemia E10.65 [facility] [address] [facility] [id number] [address] [place] [address] Oct, Type 1 diabetes mellitus wit h hyperglycemia E10.65 [facility] [address] [facility] [id number] [address] [place] [address] Sep, Type 1 diabetes mellitus wit h hyperglycemia E10.65 [facility] [address] [facility] [id number] [address] [place] [address] Aug, Type 1 diabetes mellitus wit h hyperglycemia E10.65 [facility] [address] [facility] [id number] [address] [place] [address] Aug, [facility] [address] [facility] [id number] [address] [place] [address] Aug, Type 1 diabetes mellitus wit h hyperglycemia E10.65 [facility] [address] [id number] [address] [place] [address] Aug, Encounter for immunization Z 23 [facility] [address] [id number] [address] [place] [address] Aug, Type 1 diabetes mellitus wit h hyperglycemia E10.65 [facility] [address] [id number] [address] [place] [address] Jul, Type 1 diabetes mellitus wit h hyperglycemia E10.65 [facility] [address] [id number] [address] [place] [address] Jul, Type 1 diabetes mellitus wit h hyperglycemia E10.65 [facility] [address] [id number] [address] [place] [address] May, Type 1 diabetes mellitus wit h hyperglycemia E10.65 [facility] [address] [id number] [address] [place] [address] May, [facility] [address] [id number] [address] [place] [address] Apr, [facility] [address] [id number] [address] [place] [address] Apr, Type 1 diabetes mellitus wit h hyperglycemia E10.65 [facility] [address] [id number] [address] [place] [address] March, [facility] [address] [id number] [address] [place] [address] March, [facility] [address] [id number] [address] [place] [address] Jan, [facility] [address] [id number] [address] [place] [address] Jan, [facility] [address] [id number] [address] [place] [address] Jan, Type 1 diabetes mellitus wit h diabetic polyneuropathy E10.42 [facility] [address] [id number] [address] [place] [address] Jan, Type 1 diabetes mellitus wit h hyperglycemia E10.65 ; Excessive cerumen in both ear canals H61.23 and Controlled diabetes mellitus type 1 without complications E10.9 [facility] [address] [id number] [address] [place] [address] 16 Dec, 2016 [facility] [address] [id number] [address] [place] [address] Dec, [facility] [address] [id number] [address] [place] [address] Dec, [facility] [address] [id number] [address] [place] [address] Dec, [facility] [address] [id number] [address] [place] [address] Nov, [facility] [address] [id number] [address] [place] [address] Nov, [facility] [address] [id number] [address] [place] [address] Oct, Type 1 diabetes mellitus wit h hyperglycemia E10.65 [facility] [address] [id number] [address] [place] [address] Sep, [facility] [address] [id number] [address] [place] [address] Sep, [facility] [address] [id number] [address] [place] [address] Sep, Controlled diabetes mellitus type 1 without complications E10.9 [facility] [address] [id number] [address] [place] [address] Sep, [facility] [address] [id number] [address] [place] [address] [id number] 13 Aug, 2016 Dental caries K02.9 [facility] [address] [id number] [address] [place] [address] Aug, Type 1 diabetes mellitus wit h diabetic polyneuropathy E10.42 [facility] [address] [id number] [address] [place] [address] Aug, [facility] [address] [id number] [address] [place] [address] Aug, [facility] [address] [id number] [address] [place] [address] Aug, [facility] [address] [id number] [address] [place] [address] Jul, Type 1 diabetes mellitus wit h hyperglycemia E10.65 [facility] [address] [facility] [id number] [address] [place] [address] Jul, Type 1 diabetes mellitus wit h hyperglycemia E10.65 ; Tooth pain K08.8 and Encounter for immunization Z23 [facility] [address] [id number] [address] [place] [id number] Jul, 2016 Dental examination Z01.20 [facility] [address] [id number] [address] [place] [address] Jul, [facility] [address] [facility] [id number] [address] [place] [address] Jul, [facility] [address] [facility] [id number] [address] [place] [address] Jul, [facility] [address] [id number] [address] [place] [address] Jun, [facility] [address] [id number] [address] [place] [address] May, [facility] [address] [id number] [address] [place] [address] Apr, [facility] [address] [id number] [address] [place] [address] Apr, [facility] [address] [id number] [address] [place] [address] Apr, [facility] [address] [id number] [address] [place] [address] March, [facility] [address] [id number] [address] [place] [address] March, [facility] [address] [id number] [address] [place] [address] Feb, [facility] [address] [id number] [address] [place] [address] Feb, [facility] [address] [id number] [address] [place] [address] Feb, Type 1 diabetes mellitus wit h hyperglycemia E10.65 [facility] [address] [id number] [address] [place] [address] Jan, [facility] [address] [id number] [address] [place] [address] Jan, [facility] [address] [id number] [address] [place] [address] Jan, [facility] [address] [id number] [address] [place] [address] Jan, [facility] [address] [id number] [address] [place] [address] Dec, [facility] [address] [id number] [address] [place] [address] Nov, [facility] [address] [id number] [address] [place] [address] Nov, [facility] [address] [id number] [address] [place] [address] Oct, [facility] [address] [facility] [id number] [address] [place] [address] Oct, Type 1 diabetes mellitus wit h 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 ; Type 1 diabetes mellitus with hyperglycemia E10.65 ; Gastroparesis K31.84 and Esophageal stricture K22.2 [facility] [address] [id number] [address] [place] [address] Oct, [facility] [address] [id number] [address] [place] [address] Sep, [facility] [address] [facility] [id number] [address] [place] [address] Sep, Type 1 diabetes mellitus wit h other diabetic neurological complication E10.49 [facility] [address] [id number] [address] [place] [address] Aug, Encounter for immunization Z 23 [facility] [address] [id number] [address] [place] [id number] 19 Aug, 2015 [facility] [address] [facility] [id number] [address] [place] [address] Aug, [facility] [address] [id number] [address] [place] [address] Jul, [facility] [address] [id number] [address] [place] [address] Jul, [facility] [address] [id number] [address] [place] [address] Jun, [facility] [address] [facility] [id number] [address] [place] [address] Jun, [facility] [address] [id number] [address] [place] [address] Jun, [facility] [address] [id number] [address] [place] [address] May, [facility] [address] [id number] [address] [place] [address] May, [facility] [address] [facility] [id number] [address] [place] [address] May, Diabetes type 1, controlled 250.01 [facility] [address] [id number] [address] [place] [address] May, [facility] [address] [id number] [address] [place] [address] May, [facility] [address] [id number] [address] [place] [address] [id number] Apr, Dental examination V72.2 [facility] [address] [id number] [address] [place] [address] Apr, [facility] [address] [id number] [address] [place] [address] Apr, [facility] [address] [id number] [address] [place] [address] Apr, [facility] [address] [id number] [address] [place] [address] Apr, [facility] [address] [id number] [address] [place] [address] Apr, [facility] [address] [id number] [address] [place] [address] [id number] Apr, Dental examination V72.2 [facility] [address] [id number] [address] [place] [address] Apr, [facility] [address] [id number] [address] [place] [address] Apr, [facility] [address] [id number] [address] [place] [address] March, Diabetes mellitus type 1 250 .01 [facility] [address] [id number] [address] [place] [address] March, [facility] [address] [id number] [address] [place] [address] 14 Feb, 2015 [facility] [address] [id number] [address] [place] [address] 13 Feb, 2015 [facility] [address] [id number] [address] [place] [address] Jan, [facility] [address] [id number] [address] [place] [address], [place] [address] Jan, [facility] [address] [id number] [address] [place] [address], [place] [address] Jan, [facility] [address] [id number] [address] [place] [address], [place] [address] Jan, [facility] [address] [id number] [address] [place] [address], [place] [address] Dec, [facility] [address] [id number] [address] [place] [address], [place] [address] Dec, [facility] [address] [id number] [address] [place] [address], [place] [address] Nov, [facility] [address] [id number] [address] [place] [address], [place] [address] Nov, [facility] [address] [id number] [address] [place] [address], [place] [address] Nov, [facility] [address] [id number] [address] [place] [address], [place] [address] Nov, [facility] [address] [id number] [address] [place] [address], [place] [address] Nov, [facility] [address] [id number] [address] [place] [address], [place] [address] Nov, [facility] [address] [id number] [address] [place] [address], [place] [address] Nov, [facility] [address] [id number] [address] [place] [address], [place] [address] Oct, [facility] [address] [id number] [address] [place] [address], [place] [address] Oct, [facility] [address] [id number] [address] [place] [address], [place] [address] Sep, [facility] [address] [id number] [address] [place] [address], [place] [address] Aug, 2013 [facility] [address] [id number] [address] [place] [address], [place] [address] Aug, [facility] [address] [id number] [address] [place] [address], [place] [address] Aug, [facility] [address] [id number] [address] [place] [address], [place] [address] Aug, [facility] [address] [id number] [address] [place] [address], [place] [address] Aug, [facility] [address] [id number] [address] [place] [address], [place] [address] Aug, [facility] [address] [id number] [address] [place] [address], [place] [address] Aug, [facility] [address] [id number] [address] [place] [address], [place] [address] Aug, [facility] [address] [id number] [address] [place] [address], [place] [address] Aug, [facility] [address] [id number] [address] [place] [address], [place] [address] Aug, [facility] [address] [id number] [address] [place] [address], [place] [address] Aug, [facility] [address] [id number] [address] [place] [address], [place] [address] Aug, 2013 [facility] [address] [id number] [address] [place] [address], [place] [address] Aug, 2013 [facility] [address] [id number] [address] [place] [address], [place] [address] Aug, 2013 [facility] [address] [id number] [address] [place] [address], [place] [address] Jul, 2013 [facility] [address] [id number] [address] [place] [address], [place] [address] Jul, [facility] [address] [id number] [facility] [address] Jul, [facility] [address] [id number] [address] [place] [address], [place] [address] Jul, [facility] [address] [id number] [address] [place] [address], [place] [address] Jun, [facility] [address] [id number] [address] [place] [address], [place] [address] Jun, [facility] [address] [id number] [address] [place] [address], [place] [address] Jun, [facility] [address] [id number] [address] [place] [address], [place] [address] Jun, [facility] [address] [id number] [address] [place] [address], [place] [address] May, [facility] [address] [id number] [address] [place] [address], [place] [id number] May, [facility] [address] [id number] [address] [place] [address], [place] [id number] May, [facility] [address] [id number] [address] [place] [address], [place] [id number] May, [facility] [address] [id number] [address] [place] [address], [place] [address] May, [facility] [address] [id number] [address] [place] [address], [place] [id number] May, [facility] [address] [id number] [address] [place] [address], [place] [id number] May, [facility] [address] [id number] [address] [place] [address], [place] [address] May, [facility] [address] [id number] [address] [place] [address], [place] [id number] May, [facility] [address] [id number] [address] [place] [address], [place] [id number] May, [facility] [address] [id number] [facility] [place] [id number] May, [facility] [address] [id number] [address] [place] [address], [place] [id number] May, [facility] [address] [id number] [address] [place] [address], [place] [id number] May, [facility] [address] [id number] [address] [place] [address], [place] [address] Apr, [facility] [address] [id number] [address] [place] [address], [place] [id number] Apr, [facility] [address] [id number] [address] [place] [address], [place] [id number] Apr, [facility] [address] [id number] [address] [place] [address], [place] [id number] Apr, [facility] [address] [id number] [address] [place] [address], [place] [id number] Apr, [facility] [address] [id number] [address] [place] [address], [place] [id number] Apr, [facility] [address] [id number] [address] [place] [address], [place] [id number] Apr, [facility] [address] [id number] [address] [place] [address], [place] [id number] Apr, [facility] [address] [id number] [address] [place] [address] [address] Apr, [facility] [address] [id number] [address] [place] [address], [place] [address] Apr, [facility] [address] [id number] [address] [place] [address], [place] [address] Apr, [facility] [address] [id number] [address] [place] [address], [place] [address] Apr, [facility] [address] [id number] [address] [place] [address], [place] [address] Apr, [facility] [address] [id number] [address] [place] [address], [place] [address] Apr, [facility] [address] [id number] [address] [place] [address], [place] [address] March, [facility] [address] [id number] [address] [place] [address], [place] [address] March, [facility] [address] [id number] [address] [place] [address], [place] [address] March, [facility] [address] [id number] [address] [place] [address], [place] [address] March, [facility] [address] [id number] [address] [place] [address], [place] [address] March, [facility] [address] [id number] [address] [place] [address], [place] [address] March, [facility] [address] [id number] [address] [place] [address], [place] [address] March, [facility] [address] [id number] [address] [place] [address], [place] [address] March, [facility] [address] [id number] [address] [place] [address], [place] [address] March, [facility] [address] [id number] [address] [place] [address], [place] [address] March, [facility] [address] [id number] [address] [place] [address], [place] [address] Feb, [facility] [address] [id number] [address] [place] [address], [place] [id number] Feb, [facility] [address] [id number] [address] [place] [address], [place] [address] Feb, [facility] [address] [id number] [address] [place] [address], [place] [address] Feb, [facility] [address] [id number] [facility] [address] Feb, [facility] [address] [id number] [address] [place] [address], [place] [address] Feb, [facility] [address] [id number] [address] [place] [address], [place] [address] Feb, [facility] [address] [id number] [address] [place] [address], [place] [address] Feb, [facility] [address] [id number] [address] [place] [address], [place] [address] Jan, [facility] [address] [id number] [address] [place] [address], [place] [address] Jan, [facility] [address] [id number] [address] [place] [address], [place] [address] Jan, [facility] [address] [id number] [address] [place] [address], [place] [address] Jan, [facility] [address] [id number] [address] [place] [address], [place] [address] Jan, [facility] [address] [id number] [address] [place] [address], [place] [address] Jan, [facility] [address] [id number] [address] [place] [address], [place] [address] Jan, [facility] [address] [id number] [address] [place] [address], [place] [address] Jan, [facility] [address] [id number] [address] [place] [address], [place] [address] Jan, [facility] [address] [id number] [address] [place] [address], [place] [address] Jan, [facility] [address] [id number] [address] [place] [address], [place] [address] Dec, [facility] [address] [id number] [address] [place] [address], [place] [address] Dec, [facility] [address] [id number] [address] [place] [address], [place] [address] Nov, [facility] [address] [id number] [address] [place] [address], [place] [address] Nov, [facility] [address] [id number] [address] [place] [address], [place] [address] Nov, [facility] [address] [id number] [address] [place] [address], [place] [address] Nov, [facility] [address] [id number] [address] [place] [address], [place] [address] Nov, [facility] [address] [id number] [address] [place] [address], [place] [address] Nov, [facility] [address] [id number] [address] [place] [address], [place] [address] Nov, [facility] [address] [id number] [address] [place] [address], [place] [address] Nov, [facility] [address] [id number] [address] [place] [address], [place] [address] Oct, [facility] [address] [id number] [address] [place] [address], [place] [address] Oct, [facility] [address] [id number] [address] [place] [address], [place] [address] Oct, [facility] [address] [id number] [address] [place] [address], [place] [address] Oct, [facility] [address] [id number] [address] [place] [address], [place] [address] Oct, [facility] [address] [id number] [address] [place] [address], [place] [address] Oct, [facility] [address] [id number] [address] [place] [address], [place] [address] Sep, [facility] [address] [id number] [address] [place] [address], [place] [address] Sep, [facility] [address] [id number] [address] [place] [address], [place] [address] Sep, [facility] [address] [id number] [address] [place] [address], [place] [address] Sep, [facility] [address] [id number] [address] [place] [address], [place] [address] Sep, [facility] [address] [id number] [address] [place] [address], [place] [address] Aug, [facility] [address] [id number] [address] [place] [address], [place] [address] Aug, [facility] [address] [id number] [address] [place] [address], [place] [address] Aug, [facility] [address] [id number] [address] [place] [id number] Aug, [facility] [address] [id number] [address] [place] [address], [place] [address] Aug, [facility] [address] [id number] [address] [place] [id number] Aug, [facility] [address] [id number] [address] [place] [id number] Jul, [facility] [address] [id number] [address] [place] [id number] Jul, [facility] [address] [id number] [address] [place] [address], [place] [address] Jul, [facility] [address] [id number] [address] [place] [id number] Jun, [facility] [address] [id number] [address] [place] [id number] Jun, [facility] [address] [id number] [address] [place] [id number] May, [facility] [address] [id number] [address] [place] [address], [place] [address] May, [facility] [address] [id number] [address] [place] [address], [place] [address] Apr, [facility] [address] [id number] [address] [place] [address], [place] [address] Apr, [facility] [address] [id number] [address] [place] [address], [place] [address] Apr, [facility] [address] [id number] [address] [place] [address], [place] [address] March, [facility] [address] [id number] [address] [place] [address], [place] [address] Feb, [facility] [address] [id number] [address] [place] [address], [place] [address] Feb, [facility] [address] [id number] [address] [place] [address], [place] [address] Jan, [facility] [address] [id number] [address] [place] [address], [place] [address] Jan, [facility] [address] [id number] [address] [place] [address], [place] [address] Jan, [facility] [address] [id number] [address] [place] [address], [place] [address] 08 Jan, 2013 [facility] [address] [id number] [address] [place] [address], [place] [address] Jan, [facility] [address] [id number] [address] [place] [address], [place] [address] 28 Dec, 2012 [facility] [address] [id number] [address] [place] [address], [place] [address] Dec, [facility] [address] [id number] [address] [place] [address], [place] [address] 18 Dec, 2012 [facility] [address] [id number] [address] [place] [address], [place] [address] Dec, [facility] [address] [id number] [address] [place] [address], [place] [address] Dec, [facility] [address] [id number] [address] [place] [address], [place] [address] Dec, [facility] [place] [id number] Nov, [facility] [address] [id number] [address] [place] [address], [place] [address] Nov, [facility] [address] [id number] [address] [place] [address], [place] [address] Nov, [facility] [address] [id number] [address] [place] [address], [place] [address] Nov, [facility] [address] [id number] [address] [place] [address], [place] [address] Nov, [facility] [address] [id number] [address] [place] [address], [place] [address] Oct, [facility] [address] [id number] [address] [place] [address], [place] [address] Oct, [facility] [address] [id number] [address] [place] [address], [place] [address] Oct, [facility] [address] [id number] [address] [place] [address], [place] [address] Oct, [facility] [address] [id number] [address] [place] [address], [place] [address] Oct, [facility] [address] [id number] [address] [place] [address], [place] [address] Oct, [facility] [address] [id number] [address] [place] [address], [place] [address] Oct, [facility] [address] [id number] [address] [place] [address] [address] Oct, [facility] [address] [id number] [address] [place] [address], [place] [address] Sep, [facility] [address] [id number] [address] [place] [address], [place] [address] Sep, [facility] [address] [id number] [address] [place] [address], [place] [address] Sep, [facility] [address] [id number] [address] [place] [address], [place] [address] Sep, [facility] [address] [id number] [address] [place] [address], [place] [id number] Sep, [facility] [address] [id number] [address] [place] [address], [place] [address] Sep, [facility] [address] [id number] [address] [place] [address], [place] [address] Sep, [facility] [address] [id number] [address] [place] [address], [place] [address] Sep, [facility] [address] [id number] [address] [place] [address], [place] [address] Sep, [facility] [address] [id number] [address] [place] [address], [place] [address] Sep, [facility] [address] [id number] [address] [place] [address], [place] [address] Sep, [facility] [address] [id number] [address] [place] [address], [place] [address] Sep, [facility] [address] [id number] [address] [place] [address], [place] [address] Sep, [facility] [address] [id number] [address] [place] [address], [place] [address] Sep, [facility] [address] [id number] [address] [place] [address], [place] [address] Sep, [facility] [address] [id number] [place] [address] Sep, IMMUNIZATIONS No Known Immunizations SOCIAL HISTORY Never Assessed REASON FOR VISIT upload PLAN OF CARE VITAL SIGNS MEDICATIONS Unknown Medications RESULTS No Results PROCEDURES No Known procedures INSTRUCTIONS MEDICATIONS ADMINISTERED No Known Medications MEDICAL (GENERAL) HISTORY Type Description Date Medical History hypertension Medical History type I diabetes Medical History chronic renal insufficiency Surgical History gastric pacemaker 2008 Hospitalization History nausea 2011
--- OUTSIDE RECORDS SUMMARY | 2020-04-17 21:38 | XMS REPORT ---
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 Name Role Phone BISMARK PATIÑO Unavailable PROBLEMS Type Condition ICD9-CM Code OLQ08-TF Code Onset Dates Condition S tatus SNOMED Code Problem Hypertension, essential I10 Active 60311223 Problem Mood disorder F39 Active 139595 05 Problem Chronic fatigue R53.82 Active 8422 9001 Problem Type 1 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 Active 35313212 Problem Type 1 diabetes mellitus with other diab etic neurological complication E10.49 Active 22920041 Problem Gastroparesis K31.84 Active 192959 006 Problem Type 1 diabetes mellitus with hyperglycemia E10.65 Active [id number] Problem 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 Active [id number] ALLERGIES No Information ENCOUNTERS Encounter Location Date Diagnosis [place] [id number] [facility] [id number] [address] [place] [id number] 12 Sep, 2018 Type 1 diabetes mellitus wit h other diabetic neurological complication E10.49 [place] [address] [facility] [id number] [address] [place] [address] Sep, [facility] [address] [place] [id number] [address] [place] [address] Aug, Type 1 diabetes mellitus wit h other diabetic neurological complication E10.49 [facility] [address] [facility] [id number] [address] [place] [address] 10 Aug, 2018 Encounter for immunization Z 23 [facility] [address] [facility] [id number] [address] [place] [id number] 05 Aug, 2018 Type 1 diabetes mellitus wit h hyperglycemia E10.65 [facility] [address] [facility] [id number] [address] [place] [address] Jul, Type 1 diabetes mellitus wit h hyperglycemia E10.65 [facility] [address] [id number] [address] [place] [address] Jul, [facility] [address] [id number] [address] [place] [id number] 18 Jul, 2018 [facility] [address] [id number] [address] [place] [address] Jul, Type 1 diabetes mellitus wit h other diabetic neurological complication E10.49 [facility] [address] [id number] [address] [place] [address] Jul, Type 1 diabetes mellitus wit h other diabetic neurological complication E10.49 and Mood disorder F39 [facility] [address] [id number] [address] [place] [address] Jun, [facility] [address] [id number] [address] [place] [address] Jun, Type 1 diabetes mellitus wit h other diabetic neurological complication E10.49 and Chronic fatigue R53.82 [facility] [address] [id number] [address] [place] [address] May, Type 1 diabetes mellitus wit h other diabetic neurological complication E10.49 [facility] [address] [id number] [address] [place] [address] May, [facility] [address] [id number] [address] [place] [address] May, [facility] [address] [id number] [address] [place] [address] Apr, [facility] [address] [id number] [address] [place] [address] Apr, Type 1 diabetes mellitus wit h other diabetic neurological complication E10.49 [facility] [address] [id number] [address] [place] [address] March, [facility] [address] [facility] [id number] [address] [place] [address] Feb, [facility] [address] [facility] [id number] [address] [place] [address] Feb, Type 1 diabetes mellitus wit h other diabetic neurological complication E10.49 ; Tobacco abuse Z72.0 and Tobacco abuse counseling Z71.6 [facility] [address] [facility] [id number] [address] [place] [address] Jan, Type 1 diabetes mellitus wit h hyperglycemia E10.65 [facility] [address] [facility] [id number] [address] [place] [address] Jan, [facility] [address] [facility] [id number] [address] [place] [address] Dec, Tobacco abuse Z72.0 [facility] [address] [facility] [id number] [address] [place] [address] Dec, Type 1 diabetes mellitus wit h hyperglycemia E10.65 [facility] [address] [facility] [id number] [address] [place] [address] Dec, Type 1 diabetes mellitus wit h hyperglycemia E10.65 ; Tobacco abuse Z72.0 and Tobacco abuse counseling Z71.6 [facility] [address] [facility] [id number] [address] [place] [address] Nov, Type 1 diabetes mellitus wit h hyperglycemia E10.65 [facility] [address] [facility] [id number] [address] [place] [address] Oct, Type 1 diabetes mellitus wit h hyperglycemia E10.65 [facility] [address] [facility] [id number] [address] [place] [address] Oct, Type 1 diabetes mellitus wit h hyperglycemia E10.65 [facility] [address] [facility] [id number] [address] [place] [address] Sep, Type 1 diabetes mellitus wit h hyperglycemia E10.65 [facility] [address] [facility] [id number] [address] [place] [address] Aug, Type 1 diabetes mellitus wit h hyperglycemia E10.65 [facility] [address] [id number] [address] [place] [address] Aug, [facility] [address] [id number] [address] [place] [address] Aug, Type 1 diabetes mellitus wit h hyperglycemia E10.65 [facility] [address] [id number] [address] [place] [address] Aug, Encounter for immunization Z 23 [facility] [address] [id number] [address] [place] [address] Aug, Type 1 diabetes mellitus wit h hyperglycemia E10.65 [facility] [address] [id number] [address] [place] [address] Jul, Type 1 diabetes mellitus wit h hyperglycemia E10.65 [facility] [address] [id number] [address] [place] [address] Jul, Type 1 diabetes mellitus wit h hyperglycemia E10.65 [facility] [address] [id number] [address] [place] [address] May, Type 1 diabetes mellitus wit h hyperglycemia E10.65 [facility] [address] [id number] [address] [place] [address] May, [facility] [address] [id number] [address] [place] [address] Apr, [facility] [address] [id number] [address] [place] [address] Apr, Type 1 diabetes mellitus wit h hyperglycemia E10.65 [facility] [address] [id number] [address] [place] [address] March, [facility] [address] [id number] [address] [place] [address] March, [facility] [address] [id number] [address] [place] [address] Jan, [facility] [address] [id number] [address] [place] [id number] Jan, [facility] [address] [id number] [address] [place] [address] Jan, Type 1 diabetes mellitus wit h diabetic polyneuropathy E10.42 [facility] [address] [id number] [address] [place] [address] Jan, Type 1 diabetes mellitus wit h hyperglycemia E10.65 ; Excessive cerumen in both ear canals H61.23 and Controlled diabetes mellitus type 1 without complications E10.9 [facility] [address] [id number] [address] [place] [id number] 16 Dec, 2016 [facility] [address] [id number] [address] [place] [address] Dec, [facility] [address] [id number] [address] [place] [address] Dec, [facility] [address] [id number] [address] [place] [address] Dec, [facility] [address] [id number] [address] [place] [id number] Nov, [facility] [address] [id number] [address] [place] [address] Nov, [facility] [address] [facility] [id number] [address] [place] [address] Oct, Type 1 diabetes mellitus wit h hyperglycemia E10.65 [facility] [address] [id number] [address] [place] [address] Sep, [facility] [address] [facility] [id number] [address] [place] [address] Sep, [facility] [address] [id number] [address] [place] [address] Sep, Controlled diabetes mellitus type 1 without complications E10.9 [facility] [address] [id number] [address] [place] [address] Sep, [facility] [address] [id number] [address] [place] [address] [id number] 13 Aug, 2016 Dental caries K02.9 [facility] [address] [id number] [address] [place] [address] Aug, Type 1 diabetes mellitus wit h diabetic polyneuropathy E10.42 [facility] [address] [id number] [address] [place] [address] Aug, [facility] [address] [id number] [address] [place] [address] Aug, [facility] [address] [id number] [address] [place] [address] Aug, [facility] [address] [id number] [address] [place] [address] Jul, Type 1 diabetes mellitus wit h hyperglycemia E10.65 [facility] [address] [id number] [address] [place] [address] Jul, Type 1 diabetes mellitus wit h hyperglycemia E10.65 ; Tooth pain K08.8 and Encounter for immunization Z23 [facility] [address] [id number] [address] [place] [address] [id number] 08 Jul, 2016 Dental examination Z01.20 [facility] [address] [id number] [address] [place] [id number] 08 Jul, 2016 [facility] [address] [id number] [address] [place] [id number] 07 Jul, 2016 [facility] [address] [id number] [address] [place] [id number] Jul, [facility] [address] [id number] [address] [place] [address] Jun, [facility] [address] [id number] [address] [place] [address] May, [facility] [address] [id number] [address] [place] [address] Apr, [facility] [address] [id number] [address] [place] [address], [place] [address] Apr, [facility] [address] [id number] [address] [place] [address], [place] [address] Apr, [facility] [address] [id number] [address] [place] [address], [place] [address] March, [facility] [address] [id number] [address] [place] [address], [place] [address] March, [facility] [address] [id number] [address] [place] [address], [place] [address] Feb, [facility] [address] [id number] [address] [place] [address], [place] [address] Feb, [facility] [address] [id number] [address] [place] [address], [place] [address] Feb, Type 1 diabetes mellitus wit h hyperglycemia E10.65 [facility] [address] [id number] [address] [place] [address], [place] [address] Jan, [facility] [address] [id number] [address] [place] [address], [place] [address] Jan, [facility] [address] [id number] [address] [place] [address], [place] [address] Jan, [facility] [address] [id number] [address] [place] [address], [place] [address] Jan, [facility] [address] [id number] [address] [place] [address], [place] [address] Dec, [facility] [address] [id number] [address] [place] [address], [place] [address] Nov, [facility] [address] [id number] [address] [place] [address], [place] [address] Nov, [facility] [address] [id number] [address] [place] [address], [place] [address] Oct, [facility] [address] [id number] [address] [place] [address] Oct, Type 1 diabetes mellitus wit h 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 ; Type 1 diabetes mellitus with hyperglycemia E10.65 ; Gastroparesis K31.84 and Esophageal stricture K22.2 [facility] [address] [id number] [address] [place] [address] Oct, [facility] [address] [id number] [address] [place] [address] Sep, [facility] [address] [facility] [id number] [address] [place] [address] Sep, Type 1 diabetes mellitus wit h other diabetic neurological complication E10.49 [facility] [address] [id number] [address] [place] [id number] 22 Aug, 2015 Encounter for immunization Z 23 [facility] [address] [facility] [id number] [address] [place] [id number] 19 Aug, 2015 [facility] [address] [facility] [id number] [address] [place] [address] Aug, [facility] [address] [facility] [id number] [address] [place] [address] Jul, [facility] [address] [facility] [id number] [address] [place] [address] Jul, [facility] [address] [facility] [id number] [address] [place] [address] Jun, [facility] [address] [id number] [address] [place] [address] Jun, [facility] [address] [facility] [id number] [address] [place] [address] Jun, [facility] [address] [facility] [id number] [address] [place] [address] May, [facility] [address] [facility] [id number] [address] [place] [address] May, [facility] [address] [id number] [address] [place] [address] May, Diabetes type 1, controlled 250.01 [facility] [address] [id number] [address] [place] [address] May, [facility] [address] [id number] [address] [place] [address] May, [facility] [address] [id number] [address] [place] [address] [id number] Apr, Dental examination V72.2 [facility] [address] [id number] [address] [place] [address] Apr, [facility] [address] [id number] [address] [place] [address] Apr, [facility] [address] [id number] [address] [place] [address] Apr, [facility] [address] [id number] [address] [place] [address] Apr, [facility] [address] [id number] [address] [place] [address] Apr, [facility] [address] [id number] [address] [place] [id number] Apr, Dental examination V72.2 [facility] [address] [id number] [address] [place] [address] Apr, [facility] [address] [id number] [address] [place] [address] Apr, [facility] [address] [id number] [address] [place] [address] March, Diabetes mellitus type 1 250 .01 [facility] [address] [id number] [address] [place] [address] March, [facility] [address] [id number] [address] [place] [address] Feb, [facility] [address] [id number] [address] [place] [address], [place] [address] Feb, [facility] [address] [id number] [address] [place] [address], [place] [address] Jan, [facility] [address] [id number] [address] [place] [address], [place] [address] Jan, [facility] [address] [id number] [address] [place] [address], [place] [address] Jan, [facility] [address] [id number] [address] [place] [address], [place] [address] Jan, [facility] [address] [id number] [address] [place] [address], [place] [address] Dec, [facility] [address] [id number] [address] [place] [address], [place] [address] Dec, [facility] [address] [id number] [address] [place] [address], [place] [address] Nov, [facility] [address] [id number] [address] [place] [address], [place] [address] Nov, [facility] [address] [id number] [address] [place] [address], [place] [address] Nov, [facility] [address] [id number] [address] [place] [address], [place] [address] Nov, [facility] [address] [id number] [address] [place] [address], [place] [address] Nov, [facility] [address] [id number] [address] [place] [address], [place] [address] Nov, [facility] [address] [id number] [address] [place] [address], [place] [address] Nov, [facility] [address] [id number] [address] [place] [address], [place] [address] Oct, [facility] [address] [id number] [address] [place] [address], [place] [address] Oct, [facility] [address] [id number] [address] [place] [address], [place] [address] Sep, [facility] [address] [id number] [address] [place] [address], [place] [address] Aug, [facility] [address] [id number] [address] [place] [address], [place] [address] Aug, [facility] [address] [id number] [address] [place] [address], [place] [address] Aug, [facility] [address] [id number] [address] [place] [address], [place] [address] Aug, [facility] [address] [id number] [address] [place] [address], [place] [address] Aug, [facility] [address] [id number] [address] [place] [address], [place] [address] Aug, [facility] [address] [id number] [address] [place] [address] Aug, [facility] [address] [id number] [address] [place] [address], [place] [address] Aug, [facility] [address] [id number] [address] [place] [address] Aug, [facility] [address] [id number] [address] [place] [address] Aug, [facility] [address] [id number] [address] [place] [address] Aug, [facility] [address] [id number] [address] [place] [address] Aug, [facility] [address] [id number] [address] [place] [id number] Aug, [facility] [address] [id number] [address] [place] [address] Aug, [facility] [address] [id number] [address] [place] [address], [place] [id number] 13 Jul, 2014 [facility] [address] [id number] [facility] [place] [address] 13 Jul, 2014 [facility] [address] [id number] [address] [place] [address], [place] [address] Jul, [facility] [address] [id number] [address] [place] [address], [place] [address] Jul, [facility] [address] [id number] [address] [place] [address], [place] [address] Jun, [facility] [address] [id number] [address] [place] [address], [place] [address] Jun, [facility] [address] [id number] [address] [place] [address], [place] [address] Jun, [facility] [address] [id number] [address] [place] [address], [place] [address] Jun, [facility] [address] [id number] [address] [place] [address], [place] [id number] May, [facility] [address] [id number] [address] [place] [address], [place] [address] May, [facility] [address] [id number] [address] [place] [address], [place] [address] May, [facility] [address] [id number] [address] [place] [address], [place] [address] May, [facility] [address] [id number] [address] [place] [address], [place] [address] May, [facility] [address] [id number] [address] [place] [address], [place] [address] May, [facility] [address] [id number] [address] [place] [address], [place] [address] May, [facility] [address] [id number] [address] [place] [address], [place] [address] May, [facility] [address] [id number] [facility] [address] May, [facility] [address] [id number] [facility] [place] [address] May, [facility] [address] [id number] [facility] [place] [address] May, [facility] [address] [id number] [facility] [place] [address] May, [facility] [address] [id number] [address] [place] [address], [place] [address] May, [facility] [address] [id number] [address] [place] [address], [place] [address] Apr, [facility] [address] [id number] [address] [place] [address], [place] [address] Apr, [facility] [address] [id number] [address] [place] [address], [place] [address] Apr, [facility] [address] [id number] [address] [place] [address], [place] [address] Apr, [facility] [address] [id number] [address] [place] [address], [place] [address] Apr, [facility] [address] [id number] [address] [place] [address], [place] [address] Apr, [facility] [address] [id number] [address] [place] [address], [place] [address] Apr, [facility] [address] [id number] [address] [place] [address], [place] [address] Apr, [facility] [address] [id number] [address] [place] [address], [place] [address] Apr, [facility] [address] [id number] [address] [place] [address], [place] [address] Apr, [facility] [address] [id number] [address] [place] [address], [place] [address] Apr, [facility] [address] [id number] [address] [place] [address], [place] [address] Apr, [facility] [address] [id number] [address] [place] [address], [place] [address] Apr, [facility] [address] [id number] [address] [place] [address], [place] [address] Apr, [facility] [address] [id number] [address] [place] [address], [place] [address] March, [facility] [address] [id number] [address] [place] [address], [place] [address] March, [facility] [address] [id number] [address] [place] [address], [place] [address] March, [facility] [address] [id number] [address] [place] [address], [place] [address] March, [facility] [address] [id number] [address] [place] [address], [place] [address] March, [facility] [address] [id number] [address] [place] [address], [place] [address] March, [facility] [address] [id number] [address] [place] [address], [place] [address] March, [facility] [address] [id number] [address] [place] [address], [place] [address] March, [facility] [address] [id number] [address] [place] [address], [place] [address] March, [facility] [address] [id number] [address] [place] [address], [place] [address] March, [facility] [address] [id number] [address] [place] [address], [place] [address] Feb, [facility] [address] [id number] [address] [place] [address], [place] [address] Feb, [facility] [address] [id number] [facility] [place] [address] 11 Feb, 2014 [facility] [address] [id number] [facility] [place] [address] Feb, [facility] [address] [id number] [facility] [place] [address] Feb, [facility] [address] [id number] [address] [place] [address], [place] [address] Feb, [facility] [address] [id number] [address] [place] [address], [place] [address] Feb, [facility] [address] [id number] [address] [place] [address], [place] [address] Feb, [facility] [address] [id number] [address] [place] [address], [place] [address] Jan, [facility] [address] [id number] [address] [place] [address], [place] [address] Jan, [facility] [address] [id number] [address] [place] [address], [place] [address] 18 Jan, 2014 [facility] [address] [id number] [address] [place] [address], [place] [address] Jan, [facility] [address] [id number] [address] [place] [address], [place] [address] Jan, [facility] [address] [id number] [address] [place] [address], [place] [address] Jan, [facility] [address] [id number] [address] [place] [address], [place] [address] Jan, [facility] [address] [id number] [address] [place] [address], [place] [address] Jan, [facility] [address] [id number] [address] [place] [address], [place] [address] Jan, [facility] [address] [id number] [address] [place] [address], [place] [address] Jan, [facility] [address] [id number] [address] [place] [address], [place] [address] Dec, [facility] [address] [id number] [address] [place] [address], [place] [address] Dec, [facility] [address] [id number] [address] [place] [address], [place] [address] Nov, [facility] [address] [id number] [address] [place] [address], [place] [address] Nov, [facility] [address] [id number] [address] [place] [address], [place] [address] Nov, [facility] [address] [id number] [address] [place] [address], [place] [address] Nov, [facility] [address] [id number] [address] [place] [address], [place] [address] Nov, [facility] [address] [id number] [address] [place] [address], [place] [address] Nov, [facility] [address] [id number] [address] [place] [address], [place] [address] Nov, [facility] [address] [id number] [address] [place] [address], [place] [address] Nov, [facility] [address] [id number] [address] [place] [address] Oct, [facility] [address] [id number] [address] [place] [address] Oct, [facility] [address] [id number] [address] [place] [address], [place] [address] Oct, [facility] [address] [id number] [address] [place] [address], [place] [address] Oct, [facility] [address] [id number] [address] [place] [address], [place] [address] Oct, [facility] [address] [id number] [address] [place] [address] Oct, [facility] [address] [id number] [address] [place] [address], [place] [address] Sep, [facility] [address] [id number] [address] [place] [address] Sep, [facility] [address] [id number] [address] [place] [address], [place] [address] Sep, [facility] [address] [id number] [address] [place] [address] Sep, [facility] [address] [id number] [address] [place] [address], [place] [address] Sep, [facility] [address] [id number] [address] [place] [address] Aug, [facility] [address] [id number] [address] [place] [address] Aug, [facility] [address] [id number] [address] [place] [address] Aug, [facility] [address] [id number] [address] [place] [address] Aug, [facility] [address] [id number] [address] [place] [address] Aug, [facility] [address] [id number] [address] [place] [address] Aug, [facility] [address] [id number] [address] [place] [address] Jul, [facility] [address] [id number] [address] [place] [address] Jul, [facility] [address] [id number] [address] [place] [address] Jul, [facility] [address] [id number] [address] [place] [address] Jun, [facility] [address] [id number] [address] [place] [address], [place] [address] Jun, [facility] [address] [id number] [address] [place] [address], [place] [address] May, [facility] [address] [id number] [address] [place] [address], [place] [address] May, [facility] [address] [id number] [address] [place] [address], [place] [address] Apr, [facility] [address] [id number] [address] [place] [address], [place] [address] Apr, [facility] [address] [id number] [address] [place] [address], [place] [address] Apr, [facility] [address] [id number] [address] [place] [address], [place] [address] March, [facility] [address] [id number] [address] [place] [address], [place] [address] Feb, [facility] [address] [id number] [address] [place] [address], [place] [address] Feb, [facility] [address] [id number] [address] [place] [address], [place] [address] Jan, [facility] [address] [id number] [address] [place] [address], [place] [address] Jan, [facility] [address] [id number] [address] [place] [address], [place] [address] Jan, [facility] [address] [id number] [address] [place] [address], [place] [address] Jan, [facility] [address] [id number] [address] [place] [address], [place] [address] Jan, [facility] [address] [id number] [address] [place] [address], [place] [address] Dec, [facility] [address] [id number] [address] [place] [address], [place] [address] Dec, [facility] [address] [id number] [address] [place] [address], [place] [address] Dec, [facility] [address] [id number] [address] [place] [address], [place] [address] Dec, [facility] [address] [id number] [address] [place] [address], [place] [address] Dec, [facility] [address] [id number] [address] [place] [address], [place] [address] Dec, [facility] [address] [place] [id number] Nov, [facility] [address] [id number] [address] [place] [address], [place] [address] Nov, [facility] [address] [id number] [address] [place] [address], [place] [address] Nov, [facility] [address] [id number] [address] [place] [address], [place] [address] Nov, [facility] [address] [id number] [address] [place] [address], [place] [address] Nov, [facility] [address] [id number] [address] [place] [address], [place] [address] Oct, [facility] [address] [id number] [address] [place] [address], [place] [address] Oct, [facility] [address] [id number] [address] [place] [address], [place] [address] Oct, [facility] [address] [id number] [address] [place] [address], [place] [address] Oct, [facility] [address] [id number] [address] [place] [address], [place] [address] Oct, [facility] [address] [id number] [address] [place] [address], [place] [address] Oct, [facility] [address] [id number] [address] [place] [address], [place] [address] Oct, [facility] [address] [id number] [address] [place] [address], [place] [address] Oct, [facility] [address] [id number] [address] [place] [address], [place] [address] Sep, [facility] [address] [id number] [address] [place] [address], [place] [address] Sep, [facility] [address] [id number] [address] [place] [address], [place] [address] Sep, [facility] [address] [id number] [address] [place] [address], [place] [address] Sep, [facility] [address] [id number] [address] [place] [address], [place] [address] Sep, [facility] [address] [id number] [address] [place] [address], [place] [address] Sep, [facility] [address] [id number] [address] [place] [address], [place] [address] Sep, [facility] [address] [id number] [address] [place] [address], [place] [address] Sep, [facility] [address] [id number] [address] [place] [address], [place] [address] Sep, [facility] [address] [id number] [address] [place] [address], [place] [address] Sep, [facility] [address] [id number] [address] [place] [address], [place] [address] Sep, [facility] [address] [id number] [address] [place] [address], [place] [address] Sep, [facility] [address] [id number] [address] [place] [address], [place] [address] Sep, [facility] [address] [id number] [address] [place] [address], [place] [address] Sep, [facility] [address] [facility] [id number] [address] [place] [address] Sep, [facility] [address] [facility] [id number] [address] [place] [address] Sep, IMMUNIZATIONS No Known Immunizations SOCIAL HISTORY Never Assessed REASON FOR VISIT Controlled Med Refill PLAN OF CARE VITAL SIGNS MEDICATIONS Medication [...]
--- OUTSIDE RECORDS SUMMARY | 2020-04-17 21:38 | XMS REPORT ---
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 Active 98688013 Problem Type 1 diabetes mellitus with other diab etic neurological complication E10.49 Active 42706989 Problem Gastroparesis K31.84 Active 544490 006 Problem Type 1 diabetes mellitus with hyperglycemia E10.65 Active 301307586969059 Problem 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 Active 35373804 ALLERGIES Substance Reaction Event Type Date Status Cipro Unknown Drug Allergy Sep, Active Sulfa(sulfonamide Antibiotics) Unknown Non Drug Allergy Sep Active ENCOUNTERS Encounter Location Date Diagnosis [facility] [address] [id number] [address] [place] [phone] Sep, Left foot pain M79.672 and L eft anterior knee pain M25.562 [facility] [address] [id number] [address] [place] [id number] 12 Sep, 2018 Type 1 diabetes mellitus wit h other diabetic neurological complication E10.49 [facility] [id number] [place] [phone] 06 Sep, 2018 [facility] [address] [id number] [address] [place] [phone] Aug, Type 1 diabetes mellitus wit h other diabetic neurological complication E10.49 [facility] [address] [id number] [address] [place] [phone] 10 Aug, 2018 Encounter for immunization Z 23 [facility] [address] [id number] [address] [place] [id number] 05 Aug, 2018 Type 1 diabetes mellitus wit h hyperglycemia E10.65 [facility] [address] [id number] [address] [place] [phone] 21 Jul, 2018 Type 1 diabetes mellitus wit h hyperglycemia E10.65 [facility] [address] [id number] [address] [place] [phone] 19 Jul, 2018 [facility] [address] [id number] [address] [place] [phone] 18 Jul, 2018 [facility] [address] [id number] [address] [place] [phone] 17 Jul, 2018 Type 1 diabetes mellitus wit h other diabetic neurological complication E10.49 [facility] [address] [facility] [id number] [address] [place] [phone] Jul, Type 1 diabetes mellitus wit h other diabetic neurological complication E10.[address] Mood disorder F39 [facility] [address] [id number] [address] [place] [phone] Jun, [facility] [address] [facility] [id number] [address] [place] [phone] Jun, Type 1 diabetes mellitus wit h other diabetic neurological complication E10.49 and Chronic fatigue R53.82 [facility] [address] [id number] [address] [place] [phone] May, Type 1 diabetes mellitus wit h other diabetic neurological complication E10.49 [facility] [address] [id number] [address] [place] [phone] May, [facility] [address] [facility] [id number] [address] [place] [phone] May, [facility] [address] [facility] [id number] [address] [place] [phone] Apr, [facility] [address] [facility] [id number] [address] [place] [phone] Apr, Type 1 diabetes mellitus wit h other diabetic neurological complication E10.49 [facility] [address] [facility] [id number] [address] [place] [phone] March, [facility] [address] [facility] [id number] [address] [place] [phone] Feb, [facility] [address] [facility] [id number] [address] [place] [phone] Feb, Type 1 diabetes mellitus wit h other diabetic neurological complication E10.49 ; Tobacco abuse Z72.0 and Tobacco abuse counseling Z71.6 [facility] [address] [facility] [id number] [address] [place] [phone] Jan, Type 1 diabetes mellitus wit h hyperglycemia E10.65 [facility] [address] [facility] [id number] [address] [place] [phone] Jan, [facility] [address] [facility] [id number] [address] [place] [phone] Dec, Tobacco abuse Z72.0 [facility] [address] [facility] [id number] [address] [place] [phone] Dec, Type 1 diabetes mellitus wit h hyperglycemia E10.65 [facility] [address] [facility] [id number] [address] [place] [phone] Dec, Type 1 diabetes mellitus wit h hyperglycemia E10.65 ; Tobacco abuse Z72.0 and Tobacco abuse counseling Z71.6 [facility] [address] [facility] [id number] [address] [place] [id number] Nov, Type 1 diabetes mellitus wit h hyperglycemia E10.65 [facility] [address] [facility] [id number] [address] [place] [phone] Oct, Type 1 diabetes mellitus wit h hyperglycemia E10.65 [facility] [address] [facility] [id number] [address] [place] [phone] Oct, Type 1 diabetes mellitus wit h hyperglycemia E10.65 [facility] [address] [id number] [address] [place] [phone] Sep, Type 1 diabetes mellitus wit h hyperglycemia E10.65 [facility] [address] [id number] [address] [place] [phone] Aug, Type 1 diabetes mellitus wit h hyperglycemia E10.65 [facility] [address] [facility] [id number] [address] [place] [phone] Aug, [facility] [address] [facility] [id number] [address] [place] [phone] Aug, Type 1 diabetes mellitus wit h hyperglycemia E10.65 [facility] [address] [facility] [id number] [address] [place] [phone] Aug, Encounter for immunization Z 23 [facility] [address] [facility] [id number] [address] [place] [phone] Aug, Type 1 diabetes mellitus wit h hyperglycemia E10.65 [facility] [address] [facility] [id number] [address] [place] [phone] Jul, Type 1 diabetes mellitus wit h hyperglycemia E10.65 [facility] [address] [facility] [id number] [address] [place] [phone] Jul, Type 1 diabetes mellitus wit h hyperglycemia E10.65 [facility] [address] [facility] [id number] [address] [place] [phone] May, Type 1 diabetes mellitus wit h hyperglycemia E10.65 [facility] [address] [facility] [id number] [address] [place] [phone] May, [facility] [address] [facility] [id number] [address] [place] [phone] Apr, [facility] [address] [facility] [id number] [address] [place] [phone] Apr, Type 1 diabetes mellitus wit h hyperglycemia E10.65 [facility] [address] [facility] [id number] [address] [place] [phone] March, [facility] [address] [facility] [id number] [address] [place] [phone] March, [facility] [address] [facility] [id number] [address] [place] [phone] Jan, [facility] [address] [facility] [id number] [address] [place] [phone] Jan, [facility] [address] [facility] [id number] [address] [place] [phone] Jan, Type 1 diabetes mellitus wit h diabetic polyneuropathy E10.42 [facility] [address] [facility] [id number] [address] [place] [id number] Jan, Type 1 diabetes mellitus wit h hyperglycemia E10.65 ; Excessive cerumen in both ear canals H61.23 and Controlled diabetes mellitus type [address] [facility] [address] [facility] [id number] [address] [place] [phone] Dec, [facility] [address] [facility] [id number] [address] [place] [phone] Dec, [facility] [address] [facility] [id number] [address] [place] [phone] Dec, [facility] [address] [facility] [id number] [address] [place] [phone] Dec, [facility] [address] [facility] [id number] [address] [place] [phone] Nov, [facility] [address] [facility] [id number] [address] [place] [phone] Nov, [facility] [address] [facility] [id number] [address] [place] [id number] Oct, Type 1 diabetes mellitus wit h hyperglycemia E10.65 [facility] [address] [facility] [id number] [address] [place] [phone] Sep, [facility] [address] [facility] [id number] [address] [place] [phone] Sep, [facility] [address] [id number] [address] [place] [phone] Sep, Controlled diabetes mellitus type [address] [facility] [address] [id number] [address] [place] [phone] Sep, [facility] [address] [id number] [address] [place] [id number] Aug, Dental caries K02.9 [facility] [address] [id number] [address] [place] [phone] Aug, Type 1 diabetes mellitus wit h diabetic polyneuropathy E10.42 [facility] [address] [id number] [address] [place] [phone] Aug, [facility] [address] [id number] [address] [place] [address] Aug, [facility] [address] [id number] [address] [place] [phone] Aug, [facility] [address] [id number] [address] [place] [phone] Jul, Type 1 diabetes mellitus wit h hyperglycemia E10.65 [facility] [address] [id number] [address] [place] [id number] Jul, Type 1 diabetes mellitus wit h hyperglycemia E10.65 ; Tooth pain K08.8 and Encounter for immunization Z23 [facility] [address] [id number] [address] [place] [address] [id number] Jul, [address] [facility] [address] [id number] [address] [place] [phone] Jul, [facility] [address] [id number] [address] [place] [phone] Jul, [facility] [address] [id number] [address] [place] [phone] Jul, [facility] [address] [id number] [address] [place] [address], [place] [phone] Jun, [facility] [address] [id number] [address] [place] [address], [place] [id number] May, [facility] [address] [id number] [address] [place] [address], [place] [phone] Apr, [facility] [address] [id number] [address] [place] [address], [place] [phone] Apr, [facility] [address] [id number] [address] [place] [address], [place] [id number] Apr, [facility] [address] [id number] [address] [place] [address], [place] [id number] March, [facility] [address] [id number] [address] [place] [address], [place] [id number] March, [facility] [address] [id number] [address] [place] [address], [place] [phone] Feb, [facility] [address] [id number] [address] [place] [address], [place] [id number] Feb, [facility] [address] [id number] [address] [place] [address], [place] [address] Feb, Type 1 diabetes mellitus wit h hyperglycemia E10.65 [facility] [address] [id number] [address] [place] [address], [place] [address] Jan, [facility] [address] [id number] [address] [place] [address], [place] [id number] Jan, [facility] [address] [id number] [address] [place] [address], [place] [id number] Jan, [facility] [address] [id number] [address] [place] [address], [place] [id number] Jan, [facility] [address] [id number] [address] [place] [address], [place] [id number] Dec, [facility] [address] [id number] [address] [place] [phone] Nov, [facility] [address] [id number] [address] [place] [phone] Nov, [facility] [address] [id number] [address] [place] [phone] Oct, [facility] [address] [facility] [id number] [address] [place] [phone] Oct, Type 1 diabetes mellitus wit h 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 ; Type 1 diabetes mellitus with hyperglycemia E10.65 ; Gastroparesis K31.84 and Esophageal stricture K22.2 [facility] [address] [id number] [address] [place] [phone] Oct, [facility] [address] [facility] [id number] [address] [place] [phone] Sep, [facility] [address] [facility] [id number] [address] [place] [address] Sep, Type 1 diabetes mellitus wit h other diabetic neurological complication E10.49 [facility] [address] [id number] [address] [place] [phone] 22 Aug, 2015 Encounter for immunization Z 23 [facility] [address] [id number] [address] [place] [phone] 19 Aug, 2015 [facility] [address] [id number] [address] [place] [phone] Aug, [facility] [address] [id number] [address] [place] [phone] Jul, [facility] [address] [id number] [address] [place] [id number] [address] Jul, 2015 [facility] [address] [id number] [address] [place] [phone] Jun, [facility] [address] [facility] [id number] [address] [place] [phone] Jun, [facility] [address] [id number] [address] [place] [phone] Jun, [facility] [address] [id number] [address] [place] [phone] May, [facility] [address] [id number] [address] [place] [phone] May, [facility] [address] [id number] [address] [place] [id number] May, Diabetes type 1, controlled 250.01 [facility] [address] [id number] [address] [place] [phone] May, [facility] [address] [id number] [address] [place] [phone] May, [facility] [address] [id number] [address] [place] [address] [id number] Apr, Dental examination V72.2 [facility] [address] [id number] [address] [place] [phone] Apr, [facility] [address] [id number] [address] [place] [phone] Apr, [facility] [address] [id number] [address] [place] [phone] Apr, [facility] [address] [id number] [address] [place] [phone] Apr, [facility] [address] [id number] [address] [place] [phone] Apr, [facility] [address] [id number] [address] [place] [address] [phone] Apr, Dental examination V72.2 [facility] [address] [id number] [address] [place] [phone] Apr, [facility] [address] [id number] [address] [place] [phone] Apr, [facility] [address] [id number] [address] [place] [phone] March, Diabetes mellitus type 1 250 .01 [facility] [address] [id number] [address] [place] [address], [place] [address] March, [facility] [address] [id number] [address] [place] [address], [place] [id number] 14 Feb, 2015 [facility] [address] [id number] [address] [place] [phone] Feb, [facility] [address] [id number] [address] [place] [address], [place] [id number] Jan, [facility] [address] [id number] [address] [place] [address], [place] [id number] Jan, [facility] [address] [id number] [address] [place] [address], [place] [id number] Jan, [facility] [address] [id number] [address] [place] [address], [place] [id number] Jan, [facility] [address] [id number] [address] [place] [phone] Dec, [facility] [address] [id number] [address] [place] [address], [place] [id number] Dec, [facility] [address] [id number] [address] [place] [phone] Nov, [facility] [address] [id number] [address] [place] [phone] Nov, [facility] [address] [id number] [address] [place] [phone] Nov, [facility] [address] [id number] [address] [place] [phone] Nov, [facility] [address] [id number] [address] [place] [phone] Nov, [facility] [address] [id number] [address] [place] [phone] Nov, [facility] [address] [id number] [address] [place] [address], [place] [id number] Nov, [facility] [address] [id number] [address] [place] [address], [place] [id number] Oct, [facility] [address] [id number] [address] [place] [address], [place] [id number] Oct, [facility] [address] [id number] [address] [place] [address], [place] [id number] Sep, [facility] [address] [id number] [address] [place] [address], [place] [id number] Aug, [facility] [address] [id number] [address] [place] [address], [place] [id number] Aug, [facility] [address] [id number] [address] [place] [address], [place] [id number] Aug, [facility] [address] [id number] [address] [place] [address], [place] [id number] Aug, [facility] [address] [id number] [address] [place] [address], [place] [id number] Aug, [facility] [address] [id number] [address] [place] [address], [place] [id number] Aug, [facility] [address] [id number] [address] [place] [address], [place] [id number] Aug, [facility] [address] [id number] [address] [place] [address], [place] [id number] Aug, [facility] [address] [id number] [address] [place] [address], [place] [id number] Aug, [facility] [address] [id number] [address] [place] [address], [place] [id number] Aug, [facility] [address] [id number] [address] [place] [address], [place] [id number] Aug, [facility] [address] [id number] [address] [place] [address] [place] [id number] Aug, [facility] [address] [id number] [address] [place] [address], [place] [id number] Aug, [facility] [address] [id number] [address] [place] [address], [place] [id number] Aug, [facility] [address] [id number] [address] [place] [address], [place] [id number] Jul, [facility] [address] [id number] [address] [place] [address], [place] [id number] Jul, [facility] [address] [id number] [address] [place] [address], [place] [id number] Jul, [facility] [address] [id number] [address] [place] [address], [place] [id number] Jul, [facility] [address] [id number] [address] [place] [address], [place] [id number] Jun, [facility] [address] [id number] [address] [place] [address], [place] [id number] Jun, [facility] [address] [id number] [address] [place] [address], [place] [id number] Jun, [facility] [address] [id number] [address] [place] [address], [place] [id number] Jun, [facility] [address] [id number] [address] [place] [address], [place] [id number] May, [facility] [address] [id number] [address] [place] [address], [place] [id number] May, [facility] [address] [id number] [address] [place] [address], [place] [id number] May, [facility] [address] [id number] [address] [place] [address], [place] [id number] May, [facility] [address] [id number] [address] [place] [address], [place] [id number] May, [facility] [address] [id number] [facility] [id number] May, 2013 [facility] [address] [id number] [facility] [id number] May, 2013 [facility] [address] [id number] [facility] [id number] May, 2013 [facility] [address] [id number] [facility] [id number] May, 2013 [facility] [address] [id number] [address] [place] [address], [place] [id number] May, 2013 [facility] [address] [id number] [address] [place] [address], [place] [id number] May, 2013 [facility] [address] [id number] [address] [place] [address], [place] [address] May, [facility] [address] [id number] [address] [place] [address], [place] [address] May, [facility] [address] [id number] [address] [place] [address], [place] [address] Apr, [facility] [address] [id number] [address] [place] [address], [place] [address] Apr, [facility] [address] [id number] [address] [place] [address], [place] [address] Apr, [facility] [address] [id number] [address] [place] [address], [place] [id number] Apr, [facility] [address] [id number] [address] [place] [address], [place] [id number] Apr, [facility] [address] [id number] [address] [place] [address], [place] [address] Apr, [facility] [address] [id number] [address] [place] [address], [place] [id number] Apr, [facility] [address] [id number] [address] [place] [address], [place] [id number] Apr, [facility] [address] [id number] [facility] [address] Apr, [facility] [address] [id number] [address] [place] [address], [place] [id number] Apr, [facility] [address] [id number] [address] [place] [address], [place] [address] Apr, [facility] [address] [id number] [address] [place] [address], [place] [id number] Apr, [facility] [address] [id number] [address] [place] [address], [place] [id number] Apr, [facility] [address] [id number] [address] [place] [address], [place] [id number] Apr, [facility] [address] [id number] [address] [place] [address], [place] [id number] March, [facility] [address] [id number] [address] [place] [address], [place] [address] March, [facility] [address] [id number] [address] [place] [address], [place] [id number] March, [facility] [address] [id number] [address] [place] [address], [place] [id number] March, [facility] [address] [id number] [address] [place] [address], [place] [id number] March, [facility] [address] [id number] [address] [place] [address], [place] [address] March, [facility] [address] [id number] [address] [place] [address], [place] [address] March, [facility] [address] [id number] [address] [place] [address], [place] [address] March, [facility] [address] [id number] [address] [place] [address], [place] [address] March, [facility] [address] [id number] [facility] [address] March, [facility] [address] [id number] [facility] [address] Feb, [facility] [address] [id number] [facility] [address] Feb, [facility] [address] [id number] [address] [place] [address], [place] [address] Feb, [facility] [address] [id number] [address] [place] [address], [place] [address] Feb, [facility] [address] [id number] [address] [place] [address], [place] [id number] Feb, [facility] [address] [id number] [address] [place] [address], [place] [id number] Feb, [facility] [address] [id number] [address] [place] [address], [place] [id number] Feb, [facility] [address] [id number] [address] [place] [address], [place] [address] Feb, [facility] [address] [id number] [address] [place] [address], [place] [id number] Jan, [facility] [address] [id number] [address] [place] [address], [place] [address] Jan, [facility] [address] [id number] [address] [place] [address], [place] [id number] Jan, [facility] [address] [id number] [address] [place] [address], [place] [id number] Jan, [facility] [address] [id number] [address] [place] [address], [place] [address] Jan, [facility] [address] [id number] [address] [place] [address], [place] [id number] Jan, [facility] [address] [id number] [address] [place] [address], [place] [id number] Jan, [facility] [address] [id number] [address] [place] [address], [place] [id number] Jan, [facility] [address] [id number] [address] [place] [address], [place] [address] Jan, [facility] [address] [id number] [address] [place] [address], [place] [id number] Jan, [facility] [address] [id number] [address] [place] [address], [place] [id number] Dec, [facility] [address] [id number] [address] [place] [address], [place] [id number] Dec, [facility] [address] [id number] [address] [place] [address], [place] [id number] Nov, [facility] [address] [id number] [address] [place] [address], [place] [address] Nov, [facility] [address] [id number] [address] [place] [address], [place] [address] Nov, [facility] [address] [id number] [address] [place] [address], [place] [address] Nov, [facility] [address] [id number] [address] [place] [address], [place] [address] Nov, [facility] [address] [id number] [address] [place] [address], [place] [address] Nov, [facility] [address] [id number] [address] [place] [address], [place] [address] Nov, [facility] [address] [id number] [address] [place] [address], [place] [address] Nov, [facility] [address] [id number] [address] [place] [address], [place] [id number] Oct, [facility] [address] [id number] [address] [place] [address], [place] [id number] Oct, [facility] [address] [id number] [address] [place] [id number] Oct, [facility] [address] [id number] [address] [place] [address], [place] [address] Oct, [facility] [address] [id number] [address] [place] [id number] Oct, [facility] [address] [id number] [address] [place] [address], [place] [address] Oct, [facility] [address] [id number] [address] [place] [id number] Sep, [facility] [address] [id number] [address] [place] [address], [place] [id number] Sep, [facility] [address] [id number] [address] [place] [address], [place] [id number] Sep, [facility] [address] [id number] [address] [place] [id number] Sep, [facility] [address] [id number] [address] [place] [address], [place] [id number] Sep, [facility] [address] [id number] [address] [place] [id number] Aug, [facility] [address] [id number] [address] [place] [id number] Aug, [facility] [address] [id number] [address] [place] [id number] Aug, [facility] [address] [id number] [address] [place] [id number] Aug, [facility] [address] [id number] [address] [place] [id number] Aug, [facility] [address] [id number] [address] [place] [id number] Aug, [facility] [address] [id number] [address] [place] [id number] Jul, [facility] [address] [id number] [address] [place] [address], [place] [address] Jul, [facility] [address] [id number] [address] [place] [address], [place] [address] Jul, [facility] [address] [id number] [address] [place] [address], [place] [address] Jun, [facility] [address] [id number] [address] [place] [address], [place] [address] Jun, [facility] [address] [id number] [address] [place] [address], [place] [address] May, [facility] [address] [id number] [address] [place] [address], [place] [address] May, [facility] [address] [id number] [address] [place] [address], [place] [id number] Apr, [facility] [address] [id number] [address] [place] [address], [place] [id number] Apr, [facility] [address] [id number] [address] [place] [address], [place] [id number] Apr, [facility] [address] [id number] [address] [place] [address], [place] [id number] March, [facility] [address] [id number] [address] [place] [address], [place] [id number] Feb, [facility] [address] [id number] [address] [place] [address], [place] [id number] Feb, [facility] [address] [id number] [address] [place] [address], [place] [id number] 28 Jan, 2013 [facility] [address] [id number] [address] [place] [address], [place] [id number] 20 Jan, 2013 [facility] [address] [id number] [address] [place] [address], [place] [id number] 13 Jan, 2013 [facility] [address] [id number] [address] [place] [address], [place] [address] Jan, [facility] [address] [id number] [facility] [address] Jan, [facility] [address] [id number] [address] [place] [address], [place] [id number] Dec, [facility] [address] [id number] [address] [place] [address], [place] [address] Dec, [facility] [address] [id number] [address] [place] [address], [place] [address] Dec, [facility] [address] [id number] [address] [place] [address], [place] [id number] Dec, [facility] [address] [id number] [address] [place] [address], [place] [address] Dec, [facility] [address] [id number] [address] [place] [address], [place] [id number] Dec, [facility] [place] [id number] Nov, [facility] [address] [id number] [address] [place] [address], [place] [address] Nov, [facility] [address] [id number] [address] [place] [address], [place] [id number] Nov, [facility] [address] [id number] [address] [place] [address], [place] [address] Nov, [facility] [address] [id number] [address] [place] [address], [place] [address] Nov, [facility] [address] [id number] [address] [place] [address], [place] [address] Oct, [facility] [address] [id number] [address] [place] [address], [place] [address] Oct, [facility] [address] [id number] [address] [place] [address], [place] [address] Oct, [facility] [address] [id number] [address] [place] [address], [place] [id number] 18 Oct, 2012 [facility] [address] [id number] [address] [place] [address], [place] [address] Oct, [facility] [address] [id number] [address] [place] [address], [place] [id number] Oct, [facility] [address] [id number] [address] [place] [address], [place] [id number] Oct, [facility] [address] [id number] [address] [place] [address], [place] [id number] Oct, [facility] [address] [id number] [address] [place] [address], [place] [address] Sep, [facility] [address] [id number] [address] [place] [address], [place] [id number] Sep, [facility] [address] [id number] [address] [place] [address], [place] [address] Sep, [facility] [address] [id number] [address] [place] [address], [place] [id number] Sep, [facility] [address] [id number] [address] [place] [address], [place] [id number] Sep, [facility] [address] [id number] [address] [place] [address], [place] [id number] Sep, [facility] [address] [id number] [address] [place] [address], [place] [id number] Sep, [facility] [address] [id number] [address] [place] [address], [place] [address] Sep, [facility] [address] [id number] [address] [place] [address], [place] [address] Sep, [facility] [address] [id number] [address] [place] [address], [place] [address] Sep, [facility] [address] [id number] [address] [place] [address], [place] [id number] Sep, [facility] [address] [facility] [id number] [address] [place] [id number] Sep, [facility] [address] [facility] [id number] [address] [place] [id number] Sep, [facility] [address] [facility] [id number] [address] [place] [id number] Sep, [facility] [address] [facility] [id number] [address] [place] [id number] Sep, [facility] [address] [facility] [id number] [address] [place] [id number] Sep, IMMUNIZATIONS No Known Immunizations SOCIAL HISTORY Never Assessed REASON FOR VISIT Left foot and knee pain x3 days; painful mostly in the ball of pt's foot and swe lling noted in left knee - MARY ANN Michele PLAN OF CARE Activity Details Follow Up prn Reason: VITAL SIGNS Height 68 in 2018-10-11 Weight 152.4 lbs 2018-10-11 Temperature 98.1 degrees Fahrenheit 2018-10-11 Heart Rate 76 bpm 2018-10-11 Respiratory Rate 20 2018-10-11 BMI 23.17 kg/m2 2018-10-11 Blood pressure systolic 118 mmHg 2018-10-11 Blood pressure diastolic 90 mmHg 2018-10-11 MEDICATIONS Medication Instructions Dosage Frequency Start Date End Date Duration S tatus Genaro Contour Next Test - test blood sugar 6h Jul, Active NovoLog 100 UNIT/ML INJECT 45 UNITS SUBC UTANEOUSLY ONCE DAILY PER INSULIN PUMP Active Diazepam 10 mg Orally 3 times a day 1 tablet 8h 28 days Active Enalapril Maleate 10 mg 1 tablet 24h 30 Active Glucagon Emergency 1 MG as directed May, 1 dose Active Viagra 100 mg Orally Once a day 1 tablet as needed 24h Feb, Active RESULTS Name Result Date Reference Range Xray : Foot, Left 3 views (IN HOUSE) 2018-10-11 Xray : Knee, Left 3 views (IN HOUSE) 2018-10-11 PROCEDURES Procedure Date Ordered Result Body Site X-RAY EXAM OF FOOT Oct 11, 2018 X-RAY EXAM OF KNEE, 3 Oct 11, 2018 [facility] VISIT ESTABLISHED PATIENT Oct 11, 2018 INSTRUCTIONS MEDICATIONS ADMINISTERED No Known Medications MEDICAL (GENERAL) HISTORY Type Description Date Medical History hypertension Medical History type I diabetes Medical History chronic renal insufficiency Surgical History gastric pacemaker 2008 Hospitalization History nausea 2012
--- OUTSIDE RECORDS SUMMARY | 2020-04-17 21:39 | XMS REPORT ---
Author Author Curt PATIÑO Organization [facility], [place] Address [address] [place] [address] Care Team Providers Care Rubble Placer Name Role Phone BISMARK PATIÑO Unavailable PROBLEMS Type Condition ICD9-CM Code QUA23-SU Code Onset Dates Condition S tatus SNOMED Code Problem Hypertension, essential I10 Active 10112672 Problem Mood disorder F39 Active 823792 05 Problem Chronic fatigue R53.82 Active 8422 9001 Problem Type 1 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 Active 29184382 Problem Type 1 diabetes mellitus with other diab etic neurological complication E10.49 Active 94846766 Problem Gastroparesis K31.84 Active 625747 006 Problem Type 1 diabetes mellitus with hyperglycemia E10.65 Active [id number] Problem 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 Active [id number] ALLERGIES No Information ENCOUNTERS Encounter Location Date Diagnosis [place] [id number] [facility] [id number] [address] [place] [address] 11 Aug, 2018 Type 1 diabetes mellitus wit h other diabetic neurological complication E10.49 [place] [address] [address] [facility] [id number] [address] [place] [address] 10 Aug, 2018 Encounter for immunization Z 23 [facility] [place] [address] [facility] [id number] [address] [place] [address] 05 Aug, 2018 Type 1 diabetes mellitus wit h hyperglycemia E10.65 [facility] [place] [address] [facility] [id number] [address] [place] [address] Jul, Type 1 diabetes mellitus wit h hyperglycemia E10.65 [facility] [place] [address] [facility] [id number] [address] [place] [address] Jul, [place] [address] [address] [facility] [id number] [address] [place] [address] 18 Jul, 2018 [place] [address] [id number] [address] [place] [address] Jul, Type 1 diabetes mellitus wit h other diabetic neurological complication E10.49 [facility] [place] [address] [id number] [address] [place] [address] Jul, Type 1 diabetes mellitus wit h other diabetic neurological complication E10.49 and Mood disorder F39 [facility] [place] [address] [id number] [address] [place] [address] Jun, [facility] [place] [address] [id number] [address] [place] [address] Jun, Type 1 diabetes mellitus wit h other diabetic neurological complication E10.49 and Chronic fatigue R53.82 [facility] [place] [address] [id number] [address] [place] [address] May, Type 1 diabetes mellitus wit h other diabetic neurological complication E10.49 [facility] [place] [address] [id number] [address] [place] [address] May, [facility] [place] [address] [id number] [address] [place] [address] May, [facility] [place] [address] [id number] [address] [place] [address] Apr, [facility] [place] [address] [facility] [id number] [address] [place] [address] Apr, Type 1 diabetes mellitus wit h other diabetic neurological complication E10.49 [facility] [place] [address] [id number] [address] [place] [address] March, [facility] [place] [address] [id number] [address] [place] [address] Feb, [facility] [place] [address] [facility] [id number] [address] [place] [address] Feb, Type 1 diabetes mellitus wit h other diabetic neurological complication E10.49 ; Tobacco abuse Z72.0 and Tobacco abuse counseling Z71.6 [facility] [place] [address] [id number] [address] [place] [address] Jan, Type 1 diabetes mellitus wit h hyperglycemia E10.65 [facility] [place] [address] [facility] [id number] [address] [place] [address] Jan, [facility] [place] [address] [facility] [id number] [address] [place] [address] Dec, Tobacco abuse Z72.0 [facility] [place] [address] [facility] [id number] [address] [place] [address] Dec, Type 1 diabetes mellitus wit h hyperglycemia E10.65 [facility] [place] [address] [facility] [id number] [address] [place] [address] Dec, Type 1 diabetes mellitus wit h hyperglycemia E10.65 ; Tobacco abuse Z72.0 and Tobacco abuse counseling Z71.6 [facility] [place] [address] [facility] [id number] [address] [place] [address] Nov, Type 1 diabetes mellitus wit h hyperglycemia E10.65 [facility] [place] [address] [facility] [id number] [address] [place] [address] Oct, Type 1 diabetes mellitus wit h hyperglycemia E10.65 [facility] [place] [address] [facility] [id number] [address] [place] [address] Oct, Type 1 diabetes mellitus wit h hyperglycemia E10.65 [facility] [place] [address] [facility] [id number] [address] [place] [address] Sep, Type 1 diabetes mellitus wit h hyperglycemia E10.65 [facility] [place] [address] [facility] [id number] [address] [place] [address] Aug, Type 1 diabetes mellitus wit h hyperglycemia E10.65 [facility] [place] [address] [facility] [id number] [address] [place] [address] Aug, [facility] [place] [address] [facility] [id number] [address] [place] [address] Aug, Type 1 diabetes mellitus wit h hyperglycemia E10.65 [facility] [place] [address] [facility] [id number] [address] [place] [address] Aug, Encounter for immunization Z 23 [facility] [place] [address] [id number] [address] [place] [address] Aug, Type 1 diabetes mellitus wit h hyperglycemia E10.65 [facility] [place] [address] [id number] [address] [place] [address] Jul, Type 1 diabetes mellitus wit h hyperglycemia E10.65 [facility] [place] [address] [facility] [id number] [address] [place] [address] Jul, Type 1 diabetes mellitus wit h hyperglycemia E10.65 [facility] [place] [address] [facility] [id number] [address] [place] [address] May, Type 1 diabetes mellitus wit h hyperglycemia E10.65 [facility] [place] [address] [facility] [id number] [address] [place] [address] May, [facility] [place] [address] [facility] [id number] [address] [place] [address] Apr, [facility] [place] [address] [facility] [id number] [address] [place] [address] Apr, Type 1 diabetes mellitus wit h hyperglycemia E10.65 [facility] [place] [address] [facility] [id number] [address] [place] [address] March, [facility] [place] [address] [id number] [address] [place] [address] March, [facility] [place] [address] [facility] [id number] [address] [place] [address] Jan, [facility] [place] [address] [facility] [id number] [address] [place] [address] Jan, [facility] [place] [address] [facility] [id number] [address] [place] [address] Jan, Type 1 diabetes mellitus wit h diabetic polyneuropathy E10.42 [facility] [place] [address] [id number] [address] [place] [address] Jan, Type 1 diabetes mellitus wit h hyperglycemia E10.65 ; Excessive cerumen in both ear canals H61.23 and Controlled diabetes mellitus type 1 without complications E10.9 [facility] [place] [address] [id number] [address] [place] [address] 16 Dec, 2016 [facility] [place] [address] [id number] [address] [place] [address] Dec, [facility] [place] [address] [id number] [address] [place] [address] Dec, [facility] [place] [address] [id number] [address] [place] [address] Dec, [facility] [place] [address] [id number] [address] [place] [address] Nov, [facility] [place] [address] [id number] [address] [place] [address] Nov, [facility] [place] [address] [facility] [id number] [address] [place] [address] Oct, Type 1 diabetes mellitus wit h hyperglycemia E10.65 [facility] [place] [address] [id number] [address] [place] [address] Sep, [facility] [place] [address] [id number] [address] [place] [address] Sep, [facility] [place] [address] [id number] [address] [place] [address] Sep, Controlled diabetes mellitus type 1 without complications E10.9 [facility] [place] [address] [id number] [address] [place] [address] Sep, [facility] [address] [id number] [address] [place] [id number] Aug, Dental caries K02.9 [facility] [place] [address] [id number] [address] [place] [address] 10 Aug, 2016 Type 1 diabetes mellitus wit h diabetic polyneuropathy E10.42 [facility] [place] [address] [id number] [address] [place] [address] Aug, [facility] [place] [address] [id number] [address] [place] [address] Aug, [facility] [place] [address] [id number] [address] [place] [address] Aug, [facility] [place] [address] [id number] [address] [place] [address] Jul, Type 1 diabetes mellitus wit h hyperglycemia E10.65 [facility] [place] [address] [id number] [address] [place] [address] Jul, Type 1 diabetes mellitus wit h hyperglycemia E10.65 ; Tooth pain K08.8 and Encounter for immunization Z23 [facility] [address] [id number] [address] [place] [id number] Jul, 2016 Dental examination Z01.20 [facility] [place] [address] [id number] [address] [place] [address] Jul, [facility] [place] [address] [id number] [address] [place] [address] Jul, [facility] [place] [address] [id number] [address] [place] [address] Jul, [facility] [place] [address] [id number] [address] [place] [address] Jun, [facility] [place] [address] [id number] [address] [place] [address] May, [facility] [place] [address] [id number] [address] [place] [address] Apr, [facility] [place] [address] [id number] [address] [place] [address] Apr, [facility] [place] [address] [id number] [address] [place] [address] Apr, [facility] [place] [address] [id number] [address] [place] [address] March, [facility] [place] [address] [id number] [address] [place] [address] March, [facility] [place] [address] [id number] [address] [place] [address] Feb, [facility] [place] [address] [facility] [id number] [address] [place] [address] Feb, [facility] [place] [address] [id number] [address] [place] [address] Feb, Type 1 diabetes mellitus wit h hyperglycemia E10.65 [facility] [place] [address] [id number] [address] [place] [address] Jan, [facility] [place] [address] [id number] [address] [place] [address] Jan, [facility] [place] [address] [facility] [id number] [address] [place] [address] Jan, [facility] [place] [address] [id number] [address] [place] [address] Jan, [facility] [place] [address] [facility] [id number] [address] [place] [address] Dec, [facility] [place] [address] [facility] [id number] [address] [place] [address] Nov, [facility] [place] [address] [facility] [id number] [address] [place] [address] Nov, [facility] [place] [address] [facility] [id number] [address] [place] [address] Oct, [facility] [place] [address] [facility] [id number] [address] [place] [address] 04 Oct, 2015 Type 1 diabetes mellitus wit h 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 ; Type 1 diabetes mellitus with hyperglycemia E10.65 ; Gastroparesis K31.84 and Esophageal stricture K22.2 [facility] [place] [address] [facility] [id number] [address] [place] [address] Oct, [facility] [place] [address] [id number] [address] [place] [address] Sep, [facility] [place] [address] [id number] [address] [place] [address] Sep, Type 1 diabetes mellitus wit h other diabetic neurological complication E10.49 [facility] [place] [address] [id number] [address] [place] [address] Aug, Encounter for immunization Z 23 [facility] [place] [address] [id number] [address] [place] [address] Aug, [facility] [place] [address] [id number] [address] [place] [address] Aug, [facility] [place] [address] [id number] [address] [place] [address] Jul, [facility] [place] [address] [id number] [address] [place] [address] Jul, [facility] [place] [address] [id number] [address] [place] [address] Jun, [facility] [place] [address] [id number] [address] [place] [address] Jun, [facility] [place] [address] [id number] [address] [place] [address] Jun, [facility] [place] [address] [id number] [address] [place] [address] May, [facility] [place] [address] [id number] [address] [place] [address] May, [facility] [place] [address] [id number] [address] [place] [address] May, Diabetes type 1, controlled 250.01 [facility] [place] [address] [id number] [address] [place] [address] May, [facility] [place] [address] [id number] [address] [place] [address] May, [facility] [address] [id number] [address] [place] [address] [id number] Apr, Dental examination V72.2 [facility] [address] [id number] [address] [place] [address] Apr, [facility] [address] [id number] [address] [place] [address] Apr, [facility] [address] [id number] [address] [place] [address] Apr, [facility] [address] [id number] [address] [place] [address] Apr, [facility] [address] [id number] [address] [place] [address] Apr, [facility] [address] [id number] [address] [place] [id number] Apr, Dental examination V72.2 [facility] [place] [address] [id number] [address] [place] [address] Apr, [facility] [address] [id number] [address] [place] [address] Apr, [facility] [place] [address] [id number] [address] [place] [address] March, Diabetes mellitus type 1 250 .01 [facility] [place] [address] [id number] [address] [place] [address] March, [facility] [place] [address] [id number] [address] [place] [address] Feb, [facility] [address] [id number] [address] [place] [address] Feb, [facility] [place] [address] [id number] [address] [place] [address] Jan, [facility] [address] [id number] [address] [place] [address] Jan, [facility] [address] [id number] [address] [place] [address], [place] [address] Jan, [facility] [address] [id number] [address] [place] [address], [place] [address] Jan, [facility] [address] [id number] [address] [place] [address], [place] [address] Dec, [facility] [address] [id number] [address] [place] [address], [place] [address] Dec, [facility] [address] [id number] [address] [place] [address], [place] [address] Nov, [facility] [address] [id number] [address] [place] [address], [place] [address] Nov, [facility] [address] [id number] [address] [place] [address], [place] [address] Nov, [facility] [address] [id number] [address] [place] [address], [place] [address] Nov, [facility] [address] [id number] [address] [place] [address], [place] [address] Nov, [facility] [address] [id number] [address] [place] [address], [place] [address] Nov, [facility] [address] [id number] [address] [place] [address] Nov, [facility] [address] [id number] [address] [place] [address] Oct, [facility] [address] [id number] [address] [place] [address], [place] [address] Oct, [facility] [address] [id number] [address] [place] [address], [place] [address] Sep, [facility] [address] [id number] [address] [place] [address], [place] [address] Aug, [facility] [address] [id number] [address] [place] [address], [place] [address] Aug, 2013 [facility] [address] [id number] [address] [place] [address], [place] [address] Aug, [facility] [address] [id number] [address] [place] [address], [place] [address] Aug, [facility] [address] [id number] [address] [place] [address], [place] [address] Aug, [facility] [address] [id number] [address] [place] [address], [place] [address] Aug, [facility] [address] [id number] [address] [place] [address], [place] [address] Aug, [facility] [address] [id number] [address] [place] [address], [place] [address] Aug, [facility] [address] [id number] [address] [place] [address], [place] [address] Aug, [facility] [address] [id number] [address] [place] [address], [place] [address] Aug, [facility] [address] [id number] [address] [place] [address], [place] [address] Aug, [facility] [address] [id number] [address] [place] [address], [place] [address] Aug, [facility] [address] [id number] [address] [place] [address], [place] [address] Aug, 2013 [facility] [address] [id number] [address] [place] [address], [place] [address] Aug, 2013 [facility] [address] [id number] [address] [place] [address], [place] [address] Jul, 2013 [facility] [address] [id number] [address] [place] [address], [place] [address] 13 Jul, 2013 [facility] [address] [id number] [address] [place] [address], [place] [address] Jul, [facility] [address] [id number] [facility] [address] Jul, [facility] [address] [id number] [address] [place] [address], [place] [address] Jun, [facility] [address] [id number] [address] [place] [address], [place] [address] Jun, [facility] [address] [id number] [address] [place] [address], [place] [address] Jun, [facility] [address] [id number] [address] [place] [address], [place] [address] Jun, [facility] [address] [id number] [address] [place] [address], [place] [address] May, [facility] [address] [id number] [address] [place] [address], [place] [address] May, [facility] [address] [id number] [address] [place] [address], [place] [address] May, [facility] [address] [id number] [address] [place] [address], [place] [address] May, [facility] [address] [id number] [address] [place] [address], [place] [address] May, [facility] [address] [id number] [address] [place] [address], [place] [address] May, [facility] [address] [id number] [address] [place] [address], [place] [address] May, [facility] [address] [id number] [address] [place] [address], [place] [address] May, [facility] [address] [id number] [address] [place] [address], [place] [address] May, [facility] [address] [id number] [address] [place] [address], [place] [address] May, [facility] [address] [id number] [address] [place] [address], [place] [address] May, [facility] [address] [id number] [facility] [address] May, [facility] [address] [id number] [address] [place] [address], [place] [address] May, [facility] [address] [id number] [address] [place] [address], [place] [address] Apr, [facility] [address] [id number] [address] [place] [address], [place] [address] Apr, [facility] [address] [id number] [address] [place] [address], [place] [address] Apr, [facility] [address] [id number] [address] [place] [address], [place] [address] Apr, [facility] [address] [id number] [address] [place] [address], [place] [address] Apr, [facility] [address] [id number] [address] [place] [address], [place] [address] Apr, [facility] [address] [address] [id number] [address] [place] [address], [place] [address] Apr, [facility] [address] [id number] [address] [place] [address], [place] [address] Apr, [facility] [address] [id number] [address] [place] [address], [place] [address] Apr, [facility] [address] [id number] [address] [place] [address], [place] [address] Apr, [facility] [address] [id number] [address] [place] [address], [place] [address] Apr, [facility] [address] [id number] [address] [place] [address], [place] [address] Apr, [facility] [address] [id number] [address] [place] [address], [place] [address] Apr, [facility] [address] [id number] [address] [place] [address], [place] [address] Apr, [facility] [address] [id number] [address] [place] [address], [place] [address] March, [facility] [address] [id number] [address] [place] [address], [place] [address] March, [facility] [address] [id number] [address] [place] [address], [place] [address] March, [facility] [address] [id number] [address] [place] [address], [place] [address] March, [facility] [address] [id number] [address] [place] [address], [place] [address] March, [facility] [address] [id number] [address] [place] [address], [place] [address] March, [facility] [address] [id number] [address] [place] [address], [place] [address] March, [facility] [address] [id number] [address] [place] [address], [place] [address] March, [facility] [address] [id number] [address] [place] [address], [place] [address] March, [facility] [address] [id number] [address] [place] [address], [place] [address] March, [facility] [address] [id number] [address] [place] [address], [place] [address] Feb, [facility] [address] [id number] [address] [place] [address], [place] [address] Feb, [facility] [address] [id number] [address] [place] [address], [place] [address] Feb, [facility] [address] [id number] [address] [place] [address], [place] [address] Feb, [facility] [address] [id number] [address] [place] [address], [place] [address] Feb, [facility] [address] [id number] [facility] [address] Feb, [facility] [address] [id number] [address] [place] [address], [place] [address] Feb, [facility] [address] [id number] [address] [place] [address], [place] [address] Feb, [facility] [address] [id number] [address] [place] [address], [place] [address] Jan, [facility] [address] [id number] [address] [place] [address], [place] [address] Jan, [facility] [address] [id number] [address] [place] [address], [place] [address] Jan, [facility] [address] [id number] [address] [place] [address], [place] [address] Jan, [facility] [address] [id number] [address] [place] [address], [place] [address] Jan, [facility] [address] [id number] [address] [place] [address], [place] [address] Jan, [facility] [address] [id number] [address] [place] [address], [place] [address] Jan, [facility] [address] [id number] [address] [place] [address], [place] [address] Jan, [facility] [address] [id number] [address] [place] [address], [place] [address] Jan, [facility] [address] [id number] [address] [place] [address], [place] [address] Jan, [facility] [address] [id number] [address] [place] [address], [place] [address] Dec, [facility] [address] [id number] [address] [place] [address], [place] [address] Dec, [facility] [address] [id number] [address] [place] [address], [place] [address] Nov, [facility] [address] [id number] [address] [place] [address], [place] [address] Nov, [facility] [address] [id number] [address] [place] [address], [place] [address] Nov, [facility] [address] [id number] [address] [place] [address], [place] [address] Nov, [facility] [address] [id number] [address] [place] [address], [place] [address] Nov, [facility] [address] [id number] [address] [place] [address], [place] [address] Nov, [facility] [address] [id number] [address] [place] [address], [place] [address] Nov, [facility] [address] [id number] [address] [place] [address], [place] [address] Nov, [facility] [address] [id number] [address] [place] [address], [place] [address] Oct, [facility] [address] [id number] [address] [place] [address], [place] [address] Oct, [facility] [address] [id number] [address] [place] [address], [place] [address] Oct, [facility] [address] [id number] [address] [place] [address], [place] [address] Oct, [facility] [address] [id number] [address] [place] [address], [place] [address] Oct, [facility] [address] [id number] [address] [place] [address], [place] [address] Oct, [facility] [address] [id number] [address] [place] [address], [place] [address] Sep, [facility] [address] [id number] [address] [place] [address], [place] [address] Sep, [facility] [address] [id number] [address] [place] [address], [place] [address] Sep, [facility] [address] [id number] [address] [place] [address], [place] [address] Sep, [facility] [address] [id number] [address] [place] [address], [place] [address] Sep, [facility] [address] [id number] [address] [place] [address], [place] [address] Aug, [facility] [address] [id number] [address] [place] [address], [place] [address] Aug, [facility] [address] [id number] [address] [place] [address], [place] [address] Aug, [facility] [address] [id number] [address] [place] [address], [place] [address] Aug, [facility] [address] [id number] [address] [place] [address] Aug, [facility] [address] [id number] [address] [place] [address], [place] [address] Aug, [facility] [address] [id number] [address] [place] [address] Jul, [facility] [address] [id number] [address] [place] [address] Jul, [facility] [address] [id number] [address] [place] [address] Jul, [facility] [address] [id number] [address] [place] [address], [place] [address] Jun, [facility] [address] [id number] [address] [place] [address] Jun, [facility] [address] [id number] [address] [place] [address] May, [facility] [address] [id number] [address] [place] [address] 10 May, 2013 [facility] [address] [id number] [address] [place] [address], [place] [address] Apr, [facility] [address] [id number] [address] [place] [address], [place] [address] 07 Apr, 2013 [facility] [address] [id number] [address] [place] [address], [place] [address] Apr, [facility] [address] [id number] [address] [place] [address], [place] [address] March, [facility] [address] [id number] [address] [place] [address], [place] [address] Feb, [facility] [address] [id number] [address] [place] [address], [place] [address] Feb, [facility] [address] [id number] [address] [place] [address], [place] [address] Jan, [facility] [address] [id number] [address] [place] [address], [place] [address] Jan, [facility] [address] [id number] [address] [place] [address], [place] [address] Jan, [facility] [address] [id number] [address] [place] [address], [place] [address] Jan, [facility] [address] [id number] [address] [place] [address], [place] [address] Jan, [facility] [address] [id number] [address] [place] [address], [place] [address] Dec, [facility] [address] [id number] [address] [place] [address], [place] [address] Dec, [facility] [address] [id number] [address] [place] [address], [place] [address] 18 Dec, 2012 [facility] [address] [id number] [address] [place] [address], [place] [address] Dec, [facility] [address] [id number] [address] [place] [address], [place] [address] Dec, [facility] [address] [id number] [address] [place] [address], [place] [address] Dec, [facility] [address] [place] [id number] [address], [address] [facility] [address] [id number] [address] [place] [address], [place] [address] Nov, [facility] [address] [id number] [address] [place] [address], [place] [address] Nov, [facility] [address] [id number] [address] [place] [address], [place] [address] Nov, [facility] [address] [id number] [address] [place] [address], [place] [address] Nov, [facility] [address] [id number] [address] [place] [address], [place] [address] Oct, [facility] [address] [id number] [address] [place] [address], [place] [address] Oct, [facility] [address] [id number] [address] [place] [address], [place] [address] Oct, [facility] [address] [id number] [address] [place] [address], [place] [address] Oct, [facility] [address] [id number] [address] [place] [address], [place] [address] Oct, [facility] [address] [id number] [address] [place] [address], [place] [address] Oct, [facility] [address] [id number] [address] [place] [address], [place] [address] Oct, [facility] [address] [id number] [address] [place] [address], [place] [address] Oct, [facility] [address] [id number] [address] [place] [address] [address] Sep, [facility] [address] [id number] [address] [place] [address] Sep, [facility] [address] [id number] [address] [place] [address] Sep, [facility] [address] [id number] [address] [place] [address] Sep, [facility] [address] [id number] [address] [place] [address] Sep, [facility] [address] [id number] [address] [place] [address] Sep, [facility] [address] [id number] [address] [place] [address] Sep, [facility] [address] [id number] [address] [place] [address] Sep, [facility] [address] [id number] [address] [place] [address] Sep, [facility] [address] [id number] [address] [place] [address] Sep, [facility] [address] [id number] [address] [place] [address] Sep, [facility] [address] [id number] [address] [place] [address] Sep, [facility] [address] [id number] [address] [place] [address] Sep, [facility] [address] [id number] [address] [place] [address] Sep, [facility] [address] [id number] [address] [place] [address] Sep, [facility] [address] [id number] [address] [place] [address] Sep, IMMUNIZATIONS Vaccine Route Administration Date Status FLULAVAL QUAD 0.5ML (6 MO & UP) 2017 IM Intramuscular Aug 30 18 Administered SOCIAL HISTORY Never Assessed REASON FOR VISIT Flu shot CBrumbackrn PLAN OF CARE VITAL SIGNS MEDICATIONS Unknown Medications RESULTS No Results PROCEDURES Procedure Date Ordered Result Body Site FLULAVAL QUAD 0.5ML (6 MO & UP) 2017Aug 30, 2018 [facility] FLU VAC NO FEE SCHED SAME DAY Aug 30, 2018 SINGLE IMMUNIZATION ADMIN Aug 30, 2018 INSTRUCTIONS MEDICATIONS ADMINISTERED No Known Medications MEDICAL (GENERAL) HISTORY Type Description Date Medical History hypertension Medical History type I diabetes Medical History chronic renal insufficiency Surgical History gastric pacemaker 2008 Hospitalization History nausea 2011
--- OUTSIDE RECORDS SUMMARY | 2020-04-17 21:39 | XMS REPORT ---
Author Author Curt PATIÑO Organization [facility] Address [address] [place] [address] Care Team Providers Care Post Closing Specialist Name Role Phone BISMARK PATIÑO Unavailable PROBLEMS Type Condition ICD9-CM Code [id number] Code Onset Dates Condition S tatus SNOMED Code Problem Hypertension, essential I10 Active 13394995 Problem Mood disorder F39 Active 302878 05 Problem Chronic fatigue R53.82 Active 8422 9001 Problem Type 1 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 Active 66330074 Problem Type 1 diabetes mellitus with other diab etic neurological complication E10.49 Active 25036569 Problem Gastroparesis K31.84 Active 304210 006 Problem Type 1 diabetes mellitus with hyperglycemia E10.65 Active 444820173808212 Problem 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 Active 93847883 ALLERGIES No Information ENCOUNTERS Encounter Location Date Diagnosis [place] [id number] [facility] [id number] [address] [place] [id number] 11 Aug, 2018 Type 1 diabetes mellitus wit h other diabetic neurological complication E10.49 [place] [address] [facility] [id number] [address] [place] [address] 10 Aug, 2018 Encounter for immunization Z 23 [facility] [address] [facility] [id number] [address] [place] [id number] 05 Aug, 2018 Type 1 diabetes mellitus wit h hyperglycemia E10.65 [facility] [address] [facility] [id number] [address] [place] [id number] Jul, Type 1 diabetes mellitus wit h hyperglycemia E10.65 [facility] [address] [facility] [id number] [address] [place] [phone] Jul, [place] [address] [address] [facility] [id number] [address] [place] [id number] 18 Jul, 2018 [place] [address] [id number] [address] [place] [phone] Jul, Type 1 diabetes mellitus wit h other diabetic neurological complication E10.49 [facility] [address] [id number] [address] [place] [id number] Jul, Type 1 diabetes mellitus wit h other diabetic neurological complication E10.49 and Mood disorder F39 [facility] [address] [id number] [address] [place] [phone] Jun, [facility] [address] [id number] [address] [place] [address] Jun, Type 1 diabetes mellitus wit h other diabetic neurological complication E10.49 and Chronic fatigue R53.82 [facility] [address] [id number] [address] [place] [address] May, Type 1 diabetes mellitus wit h other diabetic neurological complication E10.49 [facility] [address] [id number] [address] [place] [phone] May, [facility] [address] [id number] [address] [place] [address] May, [facility] [address] [id number] [address] [place] [phone] Apr, [facility] [address] [facility] [id number] [address] [place] [address] Apr, Type 1 diabetes mellitus wit h other diabetic neurological complication E10.49 [facility] [address] [id number] [address] [place] [phone] March, [facility] [address] [id number] [address] [place] [phone] Feb, [facility] [address] [facility] [id number] [address] [place] [address] Feb, Type 1 diabetes mellitus wit h other diabetic neurological complication E10.49 ; Tobacco abuse Z72.0 and Tobacco abuse counseling Z71.6 [facility] [address] [id number] [address] [place] [address] Jan, Type 1 diabetes mellitus wit h hyperglycemia E10.65 [facility] [address] [facility] [id number] [address] [place] [address] Jan, [facility] [address] [facility] [id number] [address] [place] [address] Dec, Tobacco abuse Z72.0 [facility] [address] [facility] [id number] [address] [place] [address] Dec, Type 1 diabetes mellitus wit h hyperglycemia E10.65 [facility] [address] [facility] [id number] [address] [place] [address] Dec, Type 1 diabetes mellitus wit h hyperglycemia E10.65 ; Tobacco abuse Z72.0 and Tobacco abuse counseling Z71.6 [facility] [address] [facility] [id number] [address] [place] [address] Nov, Type 1 diabetes mellitus wit h hyperglycemia E10.65 [facility] [address] [facility] [id number] [address] [place] [address] Oct, Type 1 diabetes mellitus wit h hyperglycemia E10.65 [facility] [address] [facility] [id number] [address] [place] [address] Oct, Type 1 diabetes mellitus wit h hyperglycemia E10.65 [facility] [address] [facility] [id number] [address] [place] [address] Sep, Type 1 diabetes mellitus wit h hyperglycemia E10.65 [facility] [address] [facility] [id number] [address] [place] [address] Aug, Type 1 diabetes mellitus wit h hyperglycemia E10.65 [facility] [address] [facility] [id number] [address] [place] [phone] Aug, [facility] [address] [facility] [id number] [address] [place] [address] Aug, Type 1 diabetes mellitus wit h hyperglycemia E10.65 [facility] [address] [facility] [id number] [address] [place] [address] Aug, Encounter for immunization Z 23 [facility] [address] [id number] [address] [place] [address] Aug, Type 1 diabetes mellitus wit h hyperglycemia E10.65 [facility] [address] [id number] [address] [place] [id number] Jul, Type 1 diabetes mellitus wit h hyperglycemia E10.65 [facility] [address] [facility] [id number] [address] [place] [id number] Jul, Type 1 diabetes mellitus wit h hyperglycemia E10.65 [facility] [address] [facility] [id number] [address] [place] [address] May, Type 1 diabetes mellitus wit h hyperglycemia E10.65 [facility] [address] [facility] [id number] [address] [place] [phone] May, [facility] [address] [facility] [id number] [address] [place] [phone] Apr, [facility] [address] [facility] [id number] [address] [place] [address] Apr, Type 1 diabetes mellitus wit h hyperglycemia E10.65 [facility] [address] [facility] [id number] [address] [place] [phone] March, [facility] [address] [id number] [address] [place] [phone] March, [facility] [address] [facility] [id number] [address] [place] [phone] Jan, [facility] [address] [facility] [id number] [address] [place] [phone] Jan, [facility] [address] [facility] [id number] [address] [place] [address] Jan, Type 1 diabetes mellitus wit h diabetic polyneuropathy E10.42 [facility] [address] [id number] [address] [place] [address] Jan, Type 1 diabetes mellitus wit h hyperglycemia E10.65 ; Excessive cerumen in both ear canals H61.23 and Controlled diabetes mellitus type 1 without complications E10.9 [facility] [address] [id number] [address] [place] [id number] 16 Dec, 2016 [facility] [address] [id number] [address] [place] [phone] Dec, [facility] [address] [id number] [address] [place] [phone] Dec, [facility] [address] [id number] [address] [place] [phone] Dec, [facility] [address] [id number] [address] [place] [phone] Nov, [facility] [address] [id number] [address] [place] [phone] Nov, [facility] [address] [facility] [id number] [address] [place] [address] Oct, Type 1 diabetes mellitus wit h hyperglycemia E10.65 [facility] [address] [id number] [address] [place] [address] Sep, [facility] [address] [id number] [address] [place] [phone] Sep, [facility] [address] [id number] [address] [place] [address] Sep, Controlled diabetes mellitus type 1 without complications E10.9 [facility] [address] [id number] [address] [place] [address] Sep, [facility] [address] [id number] [address] [place] [address] [id number] Aug, Dental caries K02.9 [facility] [address] [id number] [address] [place] [address] 10 Aug, 2016 Type 1 diabetes mellitus wit h diabetic polyneuropathy E10.42 [facility] [address] [id number] [address] [place] [address] Aug, [facility] [address] [id number] [address] [place] [address] Aug, [facility] [address] [id number] [address] [place] [phone] Aug, [facility] [address] [id number] [address] [place] [address] Jul, Type 1 diabetes mellitus wit h hyperglycemia E10.65 [facility] [address] [id number] [address] [place] [phone] Jul, Type 1 diabetes mellitus wit h hyperglycemia E10.65 ; Tooth pain K08.8 and Encounter for immunization Z23 [facility] [address] [id number] [address] [place] [address] [id number] Jul, 2016 Dental examination Z01.20 [facility] [address] [id number] [address] [place] [phone] Jul, [facility] [address] [id number] [address] [place] [phone] Jul, [facility] [address] [id number] [address] [place] [id number] Jul, [facility] [address] [id number] [address] [place] [phone] Jun, [facility] [address] [id number] [address] [place] [phone] May, [facility] [address] [id number] [address] [place] [phone] Apr, [facility] [address] [id number] [address] [place] [phone] Apr, [facility] [address] [id number] [address] [place] [phone] Apr, [facility] [address] [id number] [address] [place] [phone] March, [facility] [address] [id number] [address] [place] [phone] March, [facility] [address] [id number] [address] [place] [phone] Feb, [facility] [address] [facility] [id number] [address] [place] [phone] Feb, [facility] [address] [id number] [address] [place] [address] Feb, Type 1 diabetes mellitus wit h hyperglycemia E10.65 [facility] [address] [id number] [address] [place] [phone] Jan, [facility] [address] [id number] [address] [place] [phone] Jan, [facility] [address] [facility] [id number] [address] [place] [phone] Jan, [facility] [address] [id number] [address] [place] [phone] Jan, [facility] [address] [facility] [id number] [address] [place] [phone] Dec, [facility] [address] [facility] [id number] [address] [place] [phone] Nov, [facility] [address] [facility] [id number] [address] [place] [address] Nov, [facility] [address] [facility] [id number] [address] [place] [id number] Oct, [facility] [address] [facility] [id number] [address] [place] [phone] 04 Oct, 2015 Type 1 diabetes mellitus wit h 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 ; Type 1 diabetes mellitus with hyperglycemia E10.65 ; Gastroparesis K31.84 and Esophageal stricture K22.2 [facility] [address] [facility] [id number] [address] [place] [address] Oct, [facility] [address] [id number] [address] [place] [address] Sep, [facility] [address] [id number] [address] [place] [address] Sep, Type 1 diabetes mellitus wit h other diabetic neurological complication E10.49 [facility] [address] [id number] [address] [place] [phone] Aug, Encounter for immunization Z 23 [facility] [address] [id number] [address] [place] [phone] Aug, [facility] [address] [id number] [address] [place] [phone] Aug, [facility] [address] [id number] [address] [place] [phone] Jul, [facility] [address] [id number] [address] [place] [id number] Jul, [facility] [address] [id number] [address] [place] [phone] Jun, [facility] [address] [id number] [address] [place] [phone] Jun, [facility] [address] [id number] [address] [place] [phone] Jun, [facility] [address] [id number] [address] [place] [phone] May, [facility] [address] [id number] [address] [place] [phone] May, [facility] [address] [id number] [address] [place] [id number] May, Diabetes type 1, controlled 250.01 [facility] [address] [id number] [address] [place] [address] May, [facility] [address] [id number] [address] [place] [phone] May, [facility] [address] [id number] [address] [place] [id number] Apr, Dental examination V72.2 [facility] [place] [address] [id number] [address] [place] [phone] Apr, [facility] [place] [address] [id number] [address] [place] [phone] Apr, [facility] [address] [id number] [address] [place] [phone] Apr, [facility] [address] [id number] [address] [place] [phone] Apr, [facility] [place] [address] [id number] [address] [place] [phone] Apr, [facility] [address] [id number] [address] [place] [id number] Apr, Dental examination V72.2 [facility] [address] [id number] [address] [place] [phone] Apr, [facility] [place] [address] [id number] [address] [place] [phone] Apr, [facility] [address] [id number] [address] [place] [phone] March, Diabetes mellitus type 1 250 .01 [facility] [address] [id number] [address] [place] [phone] March, [facility] [address] [id number] [address] [place] [phone] Feb, [facility] [place] [address] [id number] [address] [place] [phone] Feb, [facility] [address] [id number] [address] [place] [phone] Jan, [facility] [place] [address] [id number] [address] [place] [phone] Jan, [facility] [address] [id number] [address] [place] [address], [place] [address] Jan, [facility] [address] [id number] [address] [place] [address], [place] [address] Jan, [facility] [address] [id number] [address] [place] [address], [place] [address] Dec, [facility] [address] [id number] [address] [place] [address], [place] [address] Dec, [facility] [address] [id number] [address] [place] [address], [place] [address] Nov, [facility] [address] [id number] [address] [place] [address], [place] [address] Nov, [facility] [address] [id number] [address] [place] [address], [place] [address] Nov, [facility] [address] [id number] [address] [place] [address], [place] [address] Nov, [facility] [address] [id number] [address] [place] [address], [place] [address] Nov, [facility] [address] [id number] [address] [place] [address], [place] [address] Nov, [facility] [address] [id number] [address] [place] [phone] Nov, [facility] [address] [id number] [address] [place] [phone] Oct, [facility] [address] [id number] [address] [place] [address], [place] [address] Oct, [facility] [address] [id number] [address] [place] [address], [place] [address] Sep, [facility] [address] [id number] [address] [place] [address], [place] [address] Aug, [facility] [address] [id number] [address] [place] [address], [place] [address] Aug, 2013 [facility] [address] [id number] [address] [place] [address], [place] [address] Aug, [facility] [address] [id number] [address] [place] [address], [place] [address] Aug, [facility] [address] [id number] [address] [place] [address], [place] [address] Aug, [facility] [address] [id number] [address] [place] [address], [place] [address] Aug, [facility] [address] [id number] [address] [place] [address], [place] [address] Aug, [facility] [address] [id number] [address] [place] [address], [place] [address] Aug, [facility] [address] [id number] [address] [place] [address], [place] [address] Aug, [facility] [address] [id number] [address] [place] [address], [place] [address] Aug, [facility] [address] [id number] [address] [place] [address], [place] [address] Aug, [facility] [address] [id number] [address] [place] [address], [place] [address] Aug, [facility] [address] [id number] [address] [place] [address], [place] [address] Aug, 2013 [facility] [address] [id number] [address] [place] [address], [place] [address] Aug, 2013 [facility] [address] [id number] [address] [place] [address], [place] [address] Jul, 2013 [facility] [address] [id number] [address] [place] [address], [place] [address] Jul, 2013 [facility] [address] [id number] [address] [place] [address], [place] [address] Jul, [facility] [address] [id number] [facility] [place] [address] Jul, [facility] [address] [id number] [address] [place] [address], [place] [address] Jun, [facility] [address] [id number] [address] [place] [address], [place] [address] Jun, [facility] [address] [id number] [address] [place] [address], [place] [address] Jun, [facility] [address] [id number] [address] [place] [address], [place] [address] Jun, [facility] [address] [id number] [address] [place] [address], [place] [address] May, [facility] [address] [id number] [address] [place] [address], [place] [address] May, [facility] [address] [id number] [address] [place] [address], [place] [address] May, [facility] [address] [id number] [address] [place] [address], [place] [address] May, [facility] [address] [id number] [address] [place] [address], [place] [address] May, [facility] [address] [id number] [address] [place] [address], [place] [address] May, [facility] [address] [id number] [address] [place] [address], [place] [address] May, [facility] [address] [id number] [address] [place] [address], [place] [address] May, [facility] [address] [id number] [address] [place] [address], [place] [address] May, [facility] [address] [id number] [address] [place] [address], [place] [address] May, [facility] [address] [id number] [address] [place] [address], [place] [address] May, [facility] [address] [id number] [facility] [place] [address] May, [facility] [address] [id number] [address] [place] [address], [place] [address] May, [facility] [address] [id number] [address] [place] [address], [place] [address] Apr, [facility] [address] [id number] [address] [place] [address], [place] [address] Apr, [facility] [address] [id number] [address] [place] [address], [place] [address] Apr, [facility] [address] [id number] [address] [place] [address], [place] [address] Apr, [facility] [address] [id number] [address] [place] [address], [place] [address] Apr, [facility] [address] [id number] [address] [place] [address], [place] [address] Apr, [facility] [address] [id number] [address] [place] [address], [place] [address] Apr, [facility] [address] [id number] [address] [place] [address], [place] [address] Apr, [facility] [address] [id number] [address] [place] [address], [place] [address] Apr, [facility] [address] [id number] [address] [place] [address], [place] [address] Apr, [facility] [address] [id number] [address] [place] [address], [place] [address] Apr, [facility] [address] [id number] [address] [place] [address], [place] [address] Apr, [facility] [address] [id number] [address] [place] [address], [place] [address] Apr, [facility] [address] [id number] [address] [place] [address], [place] [address] Apr, [facility] [address] [id number] [address] [place] [address], [place] [address] March, [facility] [address] [id number] [address] [place] [address], [place] [address] March, [facility] [address] [id number] [address] [place] [address], [place] [address] March, [facility] [address] [id number] [address] [place] [address], [place] [address] March, [facility] [address] [id number] [address] [place] [address], [place] [address] March, [facility] [address] [id number] [address] [place] [address], [place] [address] March, [facility] [address] [id number] [address] [place] [address], [place] [address] March, [facility] [address] [id number] [address] [place] [address], [place] [address] March, [facility] [address] [id number] [address] [place] [address], [place] [address] March, [facility] [address] [id number] [address] [place] [address], [place] [address] March, [facility] [address] [id number] [address] [place] [address], [place] [address] Feb, [facility] [address] [id number] [address] [place] [address], [place] [address] Feb, [facility] [address] [id number] [address] [place] [address], [place] [address] Feb, [facility] [address] [id number] [address] [place] [address], [place] [address] Feb, [facility] [address] [id number] [address] [place] [address], [place] [address] Feb, [facility] [address] [id number] [facility] [place] [address] Feb, [facility] [address] [id number] [address] [place] [address], [place] [address] Feb, [facility] [address] [id number] [address] [place] [address], [place] [address] Feb, [facility] [address] [id number] [address] [place] [address], [place] [address] Jan, [facility] [address] [id number] [address] [place] [address], [place] [address] Jan, [facility] [address] [id number] [address] [place] [address], [place] [address] Jan, [facility] [address] [id number] [address] [place] [address], [place] [address] Jan, [facility] [address] [id number] [address] [place] [address], [place] [address] Jan, [facility] [address] [id number] [address] [place] [address], [place] [address] Jan, [facility] [address] [id number] [address] [place] [address], [place] [address] Jan, [facility] [address] [id number] [address] [place] [address], [place] [address] Jan, [facility] [address] [id number] [address] [place] [address], [place] [address] Jan, [facility] [address] [id number] [address] [place] [address], [place] [address] Jan, [facility] [address] [id number] [address] [place] [address], [place] [address] Dec, [facility] [address] [id number] [address] [place] [address], [place] [address] Dec, [facility] [address] [id number] [address] [place] [address], [place] [address] Nov, [facility] [address] [id number] [address] [place] [address], [place] [address] Nov, [facility] [address] [id number] [address] [place] [address], [place] [address] Nov, [facility] [address] [id number] [address] [place] [address], [place] [address] Nov, [facility] [address] [id number] [address] [place] [address], [place] [address] Nov, [facility] [address] [id number] [address] [place] [address], [place] [address] Nov, [facility] [address] [id number] [address] [place] [address], [place] [address] Nov, [facility] [address] [id number] [address] [place] [address], [place] [address] Nov, [facility] [address] [id number] [address] [place] [address], [place] [address] Oct, [facility] [address] [id number] [address] [place] [address], [place] [address] Oct, [facility] [address] [id number] [address] [place] [address], [place] [address] Oct, [facility] [address] [id number] [address] [place] [address], [place] [address] Oct, [facility] [address] [id number] [address] [place] [address], [place] [address] Oct, [facility] [address] [id number] [address] [place] [address], [place] [address] Oct, [facility] [address] [id number] [address] [place] [address], [place] [address] Sep, [facility] [address] [id number] [address] [place] [address], [place] [address] Sep, [facility] [address] [id number] [address] [place] [address], [place] [address] Sep, [facility] [address] [id number] [address] [place] [address], [place] [address] Sep, [facility] [address] [id number] [address] [place] [address], [place] [address] Sep, [facility] [address] [id number] [address] [place] [address], [place] [address] Aug, [facility] [address] [id number] [address] [place] [address], [place] [address] Aug, [facility] [address] [id number] [address] [place] [address], [place] [address] Aug, [facility] [address] [id number] [address] [place] [address], [place] [address] Aug, [facility] [address] [id number] [address] [place] [address] Aug, [facility] [address] [id number] [address] [place] [address], [place] [address] Aug, [facility] [address] [id number] [address] [place] [address] Jul, [facility] [address] [id number] [address] [place] [address] Jul, [facility] [address] [id number] [address] [place] [address] Jul, [facility] [address] [id number] [address] [place] [address], [place] [address] Jun, [facility] [address] [id number] [address] [place] [address] Jun, [facility] [address] [id number] [address] [place] [address] May, [facility] [address] [id number] [address] [place] [address] 10 May, 2013 [facility] [address] [id number] [address] [place] [address], [place] [address] Apr, [facility] [address] [id number] [address] [place] [address], [place] [address] 07 Apr, 2013 [facility] [address] [id number] [address] [place] [address], [place] [address] Apr, [facility] [address] [id number] [address] [place] [address], [place] [address] March, [facility] [address] [id number] [address] [place] [address], [place] [address] Feb, [facility] [address] [id number] [address] [place] [address], [place] [address] Feb, [facility] [address] [id number] [address] [place] [address], [place] [address] Jan, [facility] [address] [id number] [address] [place] [address], [place] [address] Jan, [facility] [address] [id number] [address] [place] [address], [place] [address] Jan, [facility] [address] [id number] [address] [place] [address], [place] [address] Jan, [facility] [address] [id number] [address] [place] [address], [place] [address] Jan, [facility] [address] [id number] [address] [place] [address], [place] [address] Dec, [facility] [address] [id number] [address] [place] [address], [place] [address] Dec, [facility] [address] [id number] [address] [place] [address], [place] [address] 18 Dec, 2012 [facility] [address] [id number] [address] [place] [address], [place] [address] Dec, [facility] [place] [address] [id number] [address] [place] [address], [place] [address] Dec, [facility] [place] [address] [id number] [address] [place] [address], [place] [address] Dec, [facility] [address] [place] [id number] 14 Nov, 2012 [facility] [address] [id number] [address] [place] [address], [place] [address] Nov, [facility] [address] [id number] [address] [place] [address], [place] [address] Nov, [facility] [address] [id number] [address] [place] [address], [place] [address] Nov, [facility] [place] [address] [id number] [address] [place] [address], [place] [address] Nov, [facility] [place] [address] [id number] [address] [place] [address], [place] [address] Oct, [facility] [address] [id number] [address] [place] [address], [place] [address] Oct, [facility] [place] [address] [id number] [address] [place] [address], [place] [address] Oct, [facility] [place] [address] [id number] [address] [place] [address], [place] [address] Oct, [facility] [place] [address] [id number] [address] [place] [address], [place] [address] Oct, [facility] [address] [id number] [address] [place] [address], [place] [address] Oct, [facility] [place] [address] [id number] [address] [place] [address], [place] [address] Oct, [facility] [place] [address] [id number] [address] [place] [address], [place] [address] Oct, [facility] [place] [address] [id number] [address] [place] [address] [address] Sep, [facility] [address] [id number] [address] [place] [address] Sep, [facility] [address] [id number] [address] [place] [address] Sep, [facility] [address] [id number] [address] [place] [address] Sep, [facility] [address] [id number] [address] [place] [address] Sep, [facility] [address] [id number] [address] [place] [address] Sep, [facility] [address] [id number] [address] [place] [address] Sep, [facility] [address] [id number] [address] [place] [address] Sep, [facility] [address] [id number] [address] [place] [address] Sep, [facility] [address] [id number] [address] [place] [address] Sep, [facility] [address] [id number] [address] [place] [address] Sep, [facility] [address] [id number] [address] [place] [address] Sep, [facility] [address] [id number] [address] [place] [address] Sep, [facility] [address] [id number] [address] [place] [address] Sep, [facility] [address] [id number] [address] [place] [address] Sep, [facility] [place] [address] [id number] [address] [place] [address] Sep, IMMUNIZATIONS No Known Immunizations SOCIAL HISTORY Never Assessed REASON FOR VISIT Controlled Med Refill 10/15/18 PLAN OF CARE VITAL SIGNS MEDICATIONS Medication Instructions Dosage Frequency Start Date End Date Duration S juan Diazepam 10 mg Orally 3 times a day 1 tablet 8h 28 days Active RESULTS No Results PROCEDURES No Known procedures INSTRUCTIONS MEDICATIONS ADMINISTERED No Known Medications MEDICAL (GENERAL) HISTORY Type Description Date Medical History hypertension Medical History type I diabetes Medical History chronic renal insufficiency Surgical History gastric pacemaker 2008 Hospitalization History nausea 2011
--- OUTSIDE RECORDS SUMMARY | 2020-04-17 21:39 | XMS REPORT ---
Author Author Curt PATIÑO Organization [facility] Address [address] [place] [address] Care Team Providers Care Promotions Assistant Name Role Phone BISMARK PATIÑO Unavailable PROBLEMS Type Condition ICD9-CM Code [id number] Code Onset Dates Condition S tatus SNOMED Code Problem Hypertension, essential I10 Active 50773558 Problem Mood disorder F39 Active 358348 05 Problem Chronic fatigue R53.82 Active 8422 9001 Problem Type 1 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 Active 65217416 Problem Type 1 diabetes mellitus with other diab etic neurological complication E10.49 Active 22504432 Problem Gastroparesis K31.84 Active 542230 006 Problem Type 1 diabetes mellitus with hyperglycemia E10.65 Active [id number] Problem 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 [id number] [address] [place] [address] Jul, Type 1 diabetes mellitus wit h hyperglycemia E10.65 [facility] [address] [facility] [id number] [address] [place] [phone] Jul, [facility] [address] [facility] [id number] [address] [place] [id number] 18 Jul, 2018 [facility] [address] [facility] [id number] [address] [place] [address] Jul, Type 1 diabetes mellitus wit h other diabetic neurological complication E10.49 [facility] [address] [facility] [id number] [address] [place] [address] Jul, Type 1 diabetes mellitus wit h other diabetic neurological complication E10.49 and Mood disorder F39 [facility] [address] [facility] [id number] [address] [place] [phone] Jun, [facility] [address] [id number] [address] [place] [address] Jun, Type 1 diabetes mellitus wit h other diabetic neurological complication E10.49 and Chronic fatigue R53.82 [facility] [address] [id number] [address] [place] [address] May, Type 1 diabetes mellitus wit h other diabetic neurological complication E10.49 [facility] [address] [id number] [address] [place] [address] May, [facility] [address] [id number] [address] [place] [phone] May, [facility] [address] [id number] [address] [place] [phone] Apr, [facility] [address] [facility] [id number] [address] [place] [address] Apr, Type 1 diabetes mellitus wit h other diabetic neurological complication E10.49 [facility] [address] [id number] [address] [place] [id number] March, [facility] [address] [id number] [address] [place] [address] Feb, [facility] [address] [facility] [id number] [address] [place] [address] Feb, Type 1 diabetes mellitus wit h other diabetic neurological complication E10.49 ; Tobacco abuse Z72.0 and Tobacco abuse counseling Z71.6 [facility] [address] [facility] [id number] [address] [place] [address] Jan, Type 1 diabetes mellitus wit h hyperglycemia E10.65 [facility] [address] [id number] [address] [place] [phone] Jan, [facility] [address] [facility] [id number] [address] [place] [address] Dec, Tobacco abuse Z72.0 [facility] [address] [facility] [id number] [address] [place] [address] Dec, Type 1 diabetes mellitus wit h hyperglycemia E10.65 [facility] [address] [facility] [id number] [address] [place] [address] Dec, Type 1 diabetes mellitus wit h hyperglycemia E10.65 ; Tobacco abuse Z72.0 and Tobacco abuse counseling Z71.6 [facility] [address] [facility] [id number] [address] [place] [address] Nov, Type 1 diabetes mellitus wit h hyperglycemia E10.65 [facility] [address] [facility] [id number] [address] [place] [address] Oct, Type 1 diabetes mellitus wit h hyperglycemia E10.65 [facility] [address] [facility] [id number] [address] [place] [address] Oct, Type 1 diabetes mellitus wit h hyperglycemia E10.65 [facility] [address] [facility] [id number] [address] [place] [address] Sep, Type 1 diabetes mellitus wit h hyperglycemia E10.65 [facility] [address] [facility] [id number] [address] [place] [address] Aug, Type 1 diabetes mellitus wit h hyperglycemia E10.65 [facility] [address] [facility] [id number] [address] [place] [address] Aug, [facility] [address] [facility] [id number] [address] [place] [address] Aug, Type 1 diabetes mellitus wit h hyperglycemia E10.65 [facility] [address] [facility] [id number] [address] [place] [address] Aug, Encounter for immunization Z 23 [facility] [address] [facility] [id number] [address] [place] [address] Aug, Type 1 diabetes mellitus wit h hyperglycemia E10.65 [facility] [address] [facility] [id number] [address] [place] [address] Jul, Type 1 diabetes mellitus wit h hyperglycemia E10.65 [facility] [address] [facility] [id number] [address] [place] [address] Jul, Type 1 diabetes mellitus wit h hyperglycemia E10.65 [facility] [address] [id number] [address] [place] [address] May, Type 1 diabetes mellitus wit h hyperglycemia E10.65 [facility] [address] [id number] [address] [place] [address] May, [facility] [address] [id number] [address] [place] [phone] Apr, [facility] [address] [id number] [address] [place] [address] Apr, Type 1 diabetes mellitus wit h hyperglycemia E10.65 [facility] [address] [id number] [address] [place] [address] March, [facility] [address] [id number] [address] [place] [address] March, [facility] [address] [id number] [address] [place] [address] Jan, [facility] [address] [id number] [address] [place] [address] Jan, [facility] [address] [id number] [address] [place] [address] Jan, Type 1 diabetes mellitus wit diabetic polyneuropathy E10.42 [facility] [address] [id number] [address] [place] [address] Jan, Type 1 diabetes mellitus wit h hyperglycemia E10.65 ; Excessive cerumen in both ear canals H61.23 and Controlled diabetes mellitus type 1 without complications E10.9 [facility] [address] [id number] [address] [place] [address] Dec, [facility] [address] [id number] [address] [place] [address] Dec, [facility] [address] [id number] [address] [place] [address] Dec, [facility] [address] [id number] [address] [place] [address] Dec, [facility] [address] [id number] [address] [place] [address] Nov, [facility] [address] [id number] [address] [place] [address] Nov, [facility] [address] [id number] [address] [place] [address] Oct, Type 1 diabetes mellitus wit h hyperglycemia E10.65 [facility] [address] [id number] [address] [place] [phone] Sep, [facility] [address] [id number] [address] [place] [address] Sep, [facility] [address] [id number] [address] [place] [address] Sep, Controlled diabetes mellitus type 1 without complications E10.9 [facility] [address] [id number] [address] [place] [phone] Sep, [facility] [address] [id number] [address] [place] [id number] Aug, Dental caries K02.9 [facility] [address] [id number] [address] [place] [address] Aug, Type 1 diabetes mellitus wit h diabetic polyneuropathy E10.42 [facility] [address] [id number] [address] [place] [address] Aug, [facility] [address] [id number] [address] [place] [address] Aug, [facility] [address] [id number] [address] [place] [phone] Aug, [facility] [address] [id number] [address] [place] [address] Jul, Type 1 diabetes mellitus wit h hyperglycemia E10.65 [facility] [address] [id number] [address] [place] [id number] 23 Jul, 2016 Type 1 diabetes mellitus wit h hyperglycemia E10.65 ; Tooth pain K08.8 and Encounter for immunization Z23 [facility] [address] [id number] [address] [place] [id number] 08 Jul, 2016 Dental examination Z01.20 [facility] [address] [id number] [address] [place] [id number] 08 Jul, 2016 [facility] [address] [id number] [address] [place] [id number] 07 Jul, 2016 [facility] [address] [id number] [address] [place] [phone] Jul, [facility] [address] [id number] [address] [place] [phone] Jun, [facility] [address] [id number] [address] [place] [phone] May, [facility] [address] [id number] [address] [place] [address] Apr, [facility] [address] [id number] [address] [place] [phone] Apr, [facility] [address] [id number] [address] [place] [id number] Apr, [facility] [address] [id number] [address] [place] [phone] March, [facility] [address] [id number] [address] [place] [address] March, [facility] [address] [id number] [address] [place] [phone] Feb, [facility] [address] [id number] [address] [place] [id number] Feb, [facility] [address] [id number] [address] [place] [phone] Feb, Type 1 diabetes mellitus wit h hyperglycemia E10.65 [facility] [address] [facility] [id number] [address] [place] [phone] Jan, [facility] [address] [facility] [id number] [address] [place] [id number] Jan, [facility] [address] [facility] [id number] [address] [place] [phone] Jan, [facility] [address] [facility] [id number] [address] [place] [phone] Jan, [facility] [address] [facility] [id number] [address] [place] [phone] Dec, [facility] [address] [facility] [id number] [address] [place] [phone] Nov, [facility] [address] [facility] [id number] [address] [place] [phone] Nov, [facility] [address] [facility] [id number] [address] [place] [phone] Oct, [facility] [address] [facility] [id number] [address] [place] [address] 04 Oct, 2015 Type 1 diabetes mellitus wit h 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 ; Type 1 diabetes mellitus with hyperglycemia E10.65 ; Gastroparesis K31.84 and Esophageal stricture K22.2 [facility] [address] [facility] [id number] [address] [place] [id number] Oct, [facility] [address] [facility] [id number] [address] [place] [address] Sep, [facility] [address] [facility] [id number] [address] [place] [phone] 13 Sep, 2015 Type 1 diabetes mellitus wit h other diabetic neurological complication E10.49 [facility] [address] [facility] [id number] [address] [place] [address] Aug, Encounter for immunization Z 23 [facility] [address] [id number] [address] [place] [phone] Aug, [facility] [address] [id number] [address] [place] [phone] Aug, [facility] [address] [id number] [address] [place] [address] Jul, [facility] [address] [id number] [address] [place] [phone] Jul, [facility] [address] [id number] [address] [place] [phone] Jun, [facility] [address] [id number] [address] [place] [id number] Jun, [facility] [address] [id number] [address] [place] [phone] Jun, [facility] [address] [id number] [address] [place] [address] May, [facility] [address] [id number] [address] [place] [address] May, [facility] [address] [id number] [address] [place] [address] May, Diabetes type 1, controlled 250.01 [facility] [address] [id number] [address] [place] [address] May, [facility] [address] [id number] [address] [place] [address] May, [facility] [address] [id number] [address] [place] [address] [id number] Apr, Dental examination V72.2 [facility] [address] [id number] [address] [place] [phone] Apr, [facility] [address] [id number] [address] [place] [phone] Apr, [facility] [address] [id number] [address] [place] [address] Apr, [facility] [address] [id number] [address] [place] [phone] Apr, [facility] [address] [id number] [address] [place] [address] Apr, [facility] [address] [id number] [address] [place] [id number] Apr, Dental examination V72.2 [facility] [address] [id number] [address] [place] [address] Apr, [facility] [address] [id number] [address] [place] [address] Apr, [facility] [address] [id number] [address] [place] [address] March, Diabetes mellitus type 1 250 .01 [facility] [address] [id number] [address] [place] [phone] March, [facility] [address] [id number] [address] [place] [address] Feb, [facility] [address] [id number] [address] [place] [phone] Feb, [facility] [address] [id number] [address] [place] [address] Jan, [facility] [address] [id number] [address] [place] [id number] Jan, [facility] [address] [id number] [address] [place] [phone] Jan, [facility] [address] [id number] [address] [place] [address] Jan, [facility] [address] [id number] [address] [place] [phone] Dec, [facility] [address] [id number] [address] [place] [phone] Dec, [facility] [address] [id number] [address] [place] [address], [place] [address] Nov, [facility] [address] [id number] [address] [place] [address], [place] [address] Nov, [facility] [address] [id number] [address] [place] [address], [place] [address] Nov, [facility] [address] [id number] [address] [place] [address], [place] [address] Nov, [facility] [address] [id number] [address] [place] [address], [place] [address] Nov, [facility] [address] [id number] [address] [place] [address], [place] [address] Nov, [facility] [address] [id number] [address] [place] [address], [place] [address] Nov, [facility] [address] [id number] [address] [place] [address], [place] [address] Oct, [facility] [address] [id number] [address] [place] [address], [place] [address] Oct, [facility] [address] [id number] [address] [place] [address], [place] [address] Sep, [facility] [address] [id number] [address] [place] [address], [place] [address] Aug, [facility] [address] [id number] [address] [place] [address], [place] [address] Aug, [facility] [address] [id number] [address] [place] [address], [place] [address] Aug, [facility] [address] [id number] [address] [place] [address], [place] [address] Aug, [facility] [address] [id number] [address] [place] [address], [place] [address] Aug, [facility] [address] [id number] [address] [place] [address], [place] [address] Aug, [facility] [address] [id number] [address] [place] [address], [place] [address] Aug, [facility] [address] [id number] [address] [place] [address], [place] [address] Aug, [facility] [address] [id number] [address] [place] [address], [place] [address] Aug, [facility] [address] [id number] [address] [place] [address], [place] [address] Aug, [facility] [address] [id number] [address] [place] [address], [place] [address] Aug, [facility] [address] [id number] [address] [place] [address], [place] [address] Aug, [facility] [address] [id number] [address] [place] [address], [place] [address] Aug, [facility] [address] [id number] [address] [place] [address], [place] [address] Aug, [facility] [address] [id number] [address] [place] [address], [place] [address] Jul, [facility] [address] [id number] [address] [place] [address], [place] [address] Jul, [facility] [address] [id number] [address] [place] [address], [place] [address] Jul, [facility] [address] [id number] [address] [place] [address], [place] [address] Jul, [facility] [address] [id number] [address] [place] [address], [place] [address] Jun, [facility] [address] [id number] [address] [place] [address], [place] [address] Jun, [facility] [address] [id number] [address] [place] [address], [place] [address] Jun, [facility] [address] [id number] [facility] [place] [address] Jun, [facility] [place] [facility] [address] [id number] [address] [place] [address], [place] [address] May, [facility] [place] [facility] [address] [id number] [address] [place] [address], [place] [address] May, [facility] [place] [facility] [address] [id number] [address] [place] [address], [place] [address] May, [facility] [place] [facility] [address] [id number] [address] [place] [address], [place] [address] May, [facility] [place] [facility] [address] [id number] [address] [place] [address], [place] [address] May, [facility] [place] [facility] [address] [id number] [address] [place] [address], [place] [address] May, [facility] [place] [facility] [address] [id number] [address] [place] [address], [place] [address] May, [facility] [place] [facility] [address] [id number] [address] [place] [address], [place] [address] May, [facility] [place] [facility] [address] [id number] [address] [place] [address], [place] [address] May, [facility] [place] [facility] [address] [id number] [address] [place] [address], [place] [address] May, [facility] [place] [facility] [address] [id number] [address] [place] [address], [place] [address] May, [facility] [place] [facility] [address] [id number] [address] [place] [address], [place] [address] May, [facility] [place] [facility] [address] [id number] [address] [place] [address], [place] [address] May, [facility] [place] [facility] [address] [id number] [address] [place] [address], [place] [address] Apr, [facility] [place] [facility] [address] [id number] [facility] [place] [address] Apr, [facility] [address] [id number] [facility] [place] [address] Apr, [facility] [place] [facility] [address] [id number] [address] [place] [address] Apr, [facility] [address] [id number] [address] [place] [address], [place] [address] Apr, [facility] [place] [facility] [address] [id number] [address] [place] [address], [place] [address] Apr, [facility] [address] [id number] [address] [place] [address], [place] [address] Apr, [facility] [address] [id number] [address] [place] [address], [place] [address] Apr, [facility] [address] [id number] [address] [place] [address], [place] [address] Apr, [facility] [address] [id number] [address] [place] [address], [place] [address] Apr, [facility] [facility] [address] [id number] [address] [place] [address], [place] [address] Apr, [facility] [address] [id number] [address] [place] [address], [place] [address] Apr, [facility] [facility] [address] [id number] [address] [place] [address], [place] [address] Apr, [facility] [place] [facility] [address] [id number] [address] [place] [address], [place] [address] Apr, [facility] [place] [facility] [address] [id number] [address] [place] [address], [place] [address] March, [facility] [place] [facility] [address] [id number] [address] [place] [address], [place] [address] March, [facility] [place] [facility] [address] [id number] [address] [place] [address], [place] [address] March, [facility] [address] [id number] [address] [place] [address], [place] [address] March, [facility] [address] [id number] [address] [place] [address], [place] [address] March, [facility] [address] [id number] [address] [place] [address], [place] [address] March, [facility] [address] [id number] [address] [place] [address], [place] [address] March, [facility] [address] [id number] [address] [place] [address], [place] [address] March, [facility] [address] [id number] [address] [place] [address], [place] [address] March, [facility] [address] [id number] [address] [place] [address], [place] [address] March, [facility] [address] [id number] [address] [place] [address], [place] [address] Feb, [facility] [address] [id number] [address] [place] [address], [place] [address] Feb, [facility] [address] [id number] [address] [place] [address], [place] [address] Feb, [facility] [address] [id number] [address] [place] [address], [place] [address] Feb, [facility] [address] [id number] [address] [place] [address], [place] [address] Feb, [facility] [address] [id number] [address] [place] [address], [place] [address] Feb, [facility] [address] [id number] [address] [place] [address], [place] [address] Feb, [facility] [address] [id number] [address] [place] [address], [place] [address] Feb, [facility] [address] [id number] [address] [place] [address], [place] [address] 18 Jan, 2014 [facility] [address] [id number] [facility] [place] [address] Jan, [facility] [place] [facility] [address] [id number] [address] [place] [address], [place] [address] Jan, [facility] [address] [id number] [address] [place] [address], [place] [address] Jan, [facility] [place] [facility] [address] [id number] [address] [place] [address], [place] [address] Jan, [facility] [address] [id number] [address] [place] [address], [place] [address] Jan, [facility] [address] [id number] [address] [place] [address], [place] [address] Jan, [facility] [address] [id number] [address] [place] [address], [place] [address] Jan, [facility] [address] [id number] [address] [place] [address], [place] [address] Jan, [facility] [address] [id number] [address] [place] [address], [place] [address] Jan, [facility] [address] [id number] [address] [place] [address], [place] [address] Dec, [facility] [address] [id number] [address] [place] [address], [place] [address] Dec, [facility] [place] [facility] [address] [id number] [address] [place] [address], [place] [address] Nov, [facility] [place] [facility] [address] [id number] [address] [place] [address], [place] [address] Nov, [facility] [place] [facility] [address] [id number] [address] [place] [address], [place] [address] Nov, [facility] [place] [facility] [address] [id number] [address] [place] [address], [place] [address] Nov, [facility] [place] [facility] [address] [id number] [address] [place] [address], [place] [address] 15 Nov, 2013 [facility] [address] [id number] [address] [place] [address], [place] [address] Nov, [facility] [address] [id number] [address] [place] [address], [place] [address] Nov, [facility] [address] [id number] [address] [place] [address], [place] [address] Nov, [facility] [address] [id number] [address] [place] [address], [place] [address] Oct, [facility] [address] [id number] [address] [place] [address], [place] [address] Oct, [facility] [address] [id number] [address] [place] [address], [place] [address] Oct, [facility] [address] [id number] [address] [place] [address], [place] [address] Oct, [facility] [address] [id number] [address] [place] [address], [place] [address] Oct, [facility] [address] [id number] [address] [place] [address], [place] [address] Oct, [facility] [address] [id number] [address] [place] [address], [place] [address] Sep, [facility] [address] [id number] [address] [place] [address], [place] [address] Sep, [facility] [address] [id number] [address] [place] [address], [place] [address] Sep, [facility] [address] [id number] [address] [place] [address], [place] [address] Sep, [facility] [address] [id number] [address] [place] [address], [place] [address] 05 Sep, 2013 [facility] [address] [id number] [address] [place] [address], [place] [address] Aug, [facility] [address] [id number] [address] [place] [address], [place] [address] Aug, [facility] [place] [facility] [address] [id number] [address] [place] [address], [place] [address] Aug, [facility] [address] [id number] [address] [place] [address], [place] [address] Aug, [facility] [place] [facility] [address] [id number] [address] [place] [address], [place] [address] Aug, [facility] [address] [id number] [address] [place] [address], [place] [address] Aug, [facility] [address] [id number] [address] [place] [address], [place] [address] Jul, [facility] [address] [id number] [address] [place] [address], [place] [address] Jul, [facility] [address] [id number] [address] [place] [address], [place] [address] Jul, [facility] [address] [id number] [address] [place] [address], [place] [address] Jun, [facility] [place] [facility] [address] [id number] [address] [place] [address], [place] [address] Jun, [facility] [place] [facility] [address] [id number] [address] [place] [address], [place] [address] May, [facility] [place] [facility] [address] [id number] [address] [place] [address] May, [facility] [place] [facility] [address] [id number] [address] [place] [address], [place] [address] Apr, [facility] [place] [facility] [address] [id number] [address] [place] [address], [place] [address] Apr, [facility] [place] [facility] [address] [id number] [address] [place] [address], [place] [address] Apr, [facility] [place] [facility] [address] [id number] [address] [place] [address], [place] [address] March, [facility] [address] [id number] [address] [place] [address], [place] [address] Feb, [facility] [address] [id number] [address] [place] [address], [place] [address] Feb, [facility] [address] [id number] [address] [place] [address], [place] [address] Jan, [facility] [address] [id number] [address] [place] [address], [place] [address] Jan, [facility] [address] [id number] [address] [place] [address], [place] [address] Jan, [facility] [address] [id number] [address] [place] [address], [place] [address] Jan, [facility] [address] [id number] [address] [place] [address], [place] [address] Jan, [facility] [address] [id number] [address] [place] [address], [place] [address] Dec, [facility] [address] [id number] [address] [place] [address], [place] [address] Dec, [facility] [address] [id number] [address] [place] [address], [place] [address] Dec, [facility] [address] [id number] [address] [place] [address], [place] [address] Dec, [facility] [address] [id number] [address] [place] [address], [place] [address] Dec, [facility] [address] [id number] [address] [place] [address], [place] [address] Dec, [facility] [place] [id number] Nov, [facility] [address] [id number] [address] [place] [address], [place] [address] Nov, [facility] [place] [facility] [address] [id number] [address] [place] [address], [place] [address] Nov, [facility] [address] [id number] [address] [place] [address], [place] [address] Nov, [facility] [address] [id number] [address] [place] [address], [place] [address] Nov, [facility] [address] [id number] [address] [place] [address], [place] [address] Oct, [facility] [address] [id number] [address] [place] [address], [place] [address] Oct, [facility] [address] [id number] [address] [place] [address], [place] [address] Oct, [facility] [address] [id number] [address] [place] [address], [place] [address] Oct, [facility] [address] [id number] [address] [place] [address], [place] [address] Oct, [facility] [address] [id number] [address] [place] [address], [place] [address] Oct, [facility] [address] [id number] [address] [place] [address], [place] [address] Oct, [facility] [address] [id number] [address] [place] [address], [place] [address] Oct, [facility] [address] [id number] [address] [place] [address], [place] [address] Sep, [facility] [address] [id number] [address] [place] [address], [place] [address] Sep, [facility] [address] [id number] [address] [place] [address], [place] [address] Sep, [facility] [address] [id number] [address] [place] [address], [place] [address] Sep, [facility] [address] [id number] [address] [place] [address] Sep, [facility] [address] [id number] [address] [place] [address] Sep, [facility] [address] [id number] [address] [place] [address] Sep, [facility] [address] [id number] [address] [place] [address] Sep, [facility] [address] [id number] [address] [place] [address] Sep, [facility] [address] [id number] [address] [place] [address] Sep, [facility] [address] [id number] [address] [place] [address] Sep, [facility] [address] [id number] [address] [place] [address] Sep, [facility] [address] [id number] [address] [place] [address] Sep, [facility] [address] [id number] [address] [place] [address] Sep, [facility] [address] [id number] [address] [place] [address] Sep, [facility] [address] [id number] [address] [place] [address] Sep, IMMUNIZATIONS No Known Immunizations SOCIAL HISTORY Never Assessed REASON FOR VISIT Refill request PLAN OF CARE VITAL SIGNS MEDICATIONS Unknown Medications RESULTS No Results PROCEDURES No Known procedures INSTRUCTIONS MEDICATIONS ADMINISTERED No Known Medications MEDICAL (GENERAL) HISTORY Type Description Date Medical History hypertension Medical History type I diabetes Medical History chronic renal insufficiency Surgical History gastric pacemaker 2008 Hospitalization History nausea 2011
--- OUTSIDE RECORDS SUMMARY | 2020-04-17 21:39 | XMS REPORT ---
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 Name Role Phone BISMARK PATIÑO Unavailable PROBLEMS Type Condition ICD9-CM Code ILC44-AM Code Onset Dates Condition S tatus SNOMED Code Problem Hypertension, essential I10 Active 77001112 Problem Mood disorder F39 Active 843055 05 Problem Chronic fatigue R53.82 Active 8422 9001 Problem Type 1 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 Active 22579630 Problem Type 1 diabetes mellitus with other diab etic neurological complication E10.49 Active 53187489 Problem Gastroparesis K31.84 Active 761217 006 Problem Type 1 diabetes mellitus with hyperglycemia E10.65 Active [id number] Problem 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 Active [id number] ALLERGIES No Information ENCOUNTERS Encounter Location Date Diagnosis [id number] [facility] [id number] [address] [place] [phone] 11 Aug, 2018 Type 1 diabetes mellitus wit h other diabetic neurological complication E10.49 [place] [address] [facility] [id number] [address] [place] [phone] 10 Aug, 2018 Encounter for immunization Z 23 [facility] [address] [facility] [id number] [address] [place] [phone] 05 Aug, 2018 Type 1 diabetes mellitus wit h hyperglycemia E10.65 [facility] [address] [facility] [id number] [address] [place] [address] Jul, Type 1 diabetes mellitus wit h hyperglycemia E10.65 [facility] [address] [facility] [id number] [address] [place] [address] Jul, [place] [address] [facility] [id number] [address] [place] [phone] 18 Jul, 2018 [place] [address] [id number] [address] [place] [id number] Jul, Type 1 diabetes mellitus wit h other diabetic neurological complication E10.49 [facility] [address] [id number] [address] [place] [address] Jul, Type 1 diabetes mellitus wit h other diabetic neurological complication E10.49 and Mood disorder F39 [facility] [address] [id number] [address] [place] [phone] Jun, [facility] [address] [id number] [address] [place] [phone] Jun, Type 1 diabetes mellitus wit h other diabetic neurological complication E10.49 and Chronic fatigue R53.82 [facility] [address] [id number] [address] [place] [address] May, Type 1 diabetes mellitus wit h other diabetic neurological complication E10.49 [facility] [address] [id number] [address] [place] [address] May, [facility] [address] [id number] [address] [place] [phone] May, [facility] [address] [id number] [address] [place] [phone] Apr, [facility] [address] [facility] [id number] [address] [place] [phone] Apr, Type 1 diabetes mellitus wit h other diabetic neurological complication E10.49 [facility] [address] [id number] [address] [place] [phone] March, [facility] [address] [id number] [address] [place] [address] Feb, [facility] [address] [facility] [id number] [address] [place] [phone] Feb, Type 1 diabetes mellitus wit h other diabetic neurological complication E10.49 ; Tobacco abuse Z72.0 and Tobacco abuse counseling Z71.6 [facility] [address] [id number] [address] [place] [address] Jan, Type 1 diabetes mellitus wit h hyperglycemia E10.65 [facility] [address] [facility] [id number] [address] [place] [phone] Jan, [facility] [address] [facility] [id number] [address] [place] [phone] Dec, Tobacco abuse Z72.0 [facility] [address] [facility] [id number] [address] [place] [phone] Dec, Type 1 diabetes mellitus wit h hyperglycemia E10.65 [facility] [address] [facility] [id number] [address] [place] [address] Dec, Type 1 diabetes mellitus wit h hyperglycemia E10.65 ; Tobacco abuse Z72.0 and Tobacco abuse counseling Z71.6 [facility] [address] [facility] [id number] [address] [place] [address] Nov, Type 1 diabetes mellitus wit h hyperglycemia E10.65 [facility] [address] [facility] [id number] [address] [place] [address] Oct, Type 1 diabetes mellitus wit h hyperglycemia E10.65 [facility] [address] [facility] [id number] [address] [place] [address] Oct, Type 1 diabetes mellitus wit h hyperglycemia E10.65 [facility] [address] [facility] [id number] [address] [place] [address] Sep, Type 1 diabetes mellitus wit h hyperglycemia E10.65 [facility] [address] [facility] [id number] [address] [place] [address] Aug, Type 1 diabetes mellitus wit h hyperglycemia E10.65 [facility] [address] [facility] [id number] [address] [place] [address] Aug, [facility] [address] [facility] [id number] [address] [place] [phone] Aug, Type 1 diabetes mellitus wit h hyperglycemia E10.65 [facility] [address] [facility] [id number] [address] [place] [address] Aug, Encounter for immunization Z 23 [facility] [address] [id number] [address] [place] [phone] Aug, Type 1 diabetes mellitus wit h hyperglycemia E10.65 [facility] [address] [id number] [address] [place] [address] Jul, Type 1 diabetes mellitus wit h hyperglycemia E10.65 [facility] [address] [facility] [id number] [address] [place] [address] Jul, Type 1 diabetes mellitus wit h hyperglycemia E10.65 [facility] [address] [facility] [id number] [address] [place] [address] May, Type 1 diabetes mellitus wit h hyperglycemia E10.65 [facility] [address] [facility] [id number] [address] [place] [phone] May, [facility] [address] [facility] [id number] [address] [place] [address] Apr, [facility] [address] [facility] [id number] [address] [place] [address] Apr, Type 1 diabetes mellitus wit h hyperglycemia E10.65 [facility] [address] [facility] [id number] [address] [place] [address] March, [facility] [address] [id number] [address] [place] [phone] March, [facility] [address] [facility] [id number] [address] [place] [address] Jan, [facility] [address] [facility] [id number] [address] [place] [address] Jan, [facility] [address] [facility] [id number] [address] [place] [address] Jan, Type 1 diabetes mellitus wit h diabetic polyneuropathy E10.42 [facility] [address] [id number] [address] [place] [address] Jan, Type 1 diabetes mellitus wit h hyperglycemia E10.65 ; Excessive cerumen in both ear canals H61.23 and Controlled diabetes mellitus type 1 without complications E10.9 [facility] [address] [id number] [address] [place] [id number] 16 Dec, 2016 [facility] [address] [id number] [address] [place] [phone] Dec, [facility] [address] [id number] [address] [place] [address] Dec, [facility] [address] [id number] [address] [place] [address] Dec, [facility] [address] [id number] [address] [place] [address] Nov, [facility] [address] [id number] [address] [place] [address] Nov, [facility] [address] [facility] [id number] [address] [place] [address] Oct, Type 1 diabetes mellitus wit h hyperglycemia E10.65 [facility] [address] [id number] [address] [place] [id number] Sep, [facility] [address] [id number] [address] [place] [address] Sep, [facility] [address] [id number] [address] [place] [phone] Sep, Controlled diabetes mellitus type 1 without complications E10.9 [facility] [address] [id number] [address] [place] [phone] Sep, [facility] [address] [id number] [address] [place] [id number] Aug, Dental caries K02.9 [facility] [address] [id number] [address] [place] [phone] 10 Aug, 2016 Type 1 diabetes mellitus wit h diabetic polyneuropathy E10.42 [facility] [address] [id number] [address] [place] [id number] Aug, [facility] [address] [id number] [address] [place] [id number] Aug, [facility] [address] [id number] [address] [place] [address] Aug, [facility] [address] [id number] [address] [place] [address] Jul, Type 1 diabetes mellitus wit h hyperglycemia E10.65 [facility] [address] [id number] [address] [place] [address] Jul, Type 1 diabetes mellitus wit h hyperglycemia E10.65 ; Tooth pain K08.8 and Encounter for immunization Z23 [facility] [address] [id number] [address] [place] [address] [id number] 08 Jul, 2016 Dental examination Z01.20 [facility] [address] [id number] [address] [place] [address] Jul, [facility] [address] [id number] [address] [place] [address] Jul, [facility] [address] [id number] [address] [place] [phone] Jul, [facility] [address] [id number] [address] [place] [phone] Jun, [facility] [address] [id number] [address] [place] [phone] May, [facility] [address] [id number] [address] [place] [phone] Apr, [facility] [address] [id number] [address] [place] [phone] Apr, [facility] [address] [id number] [address] [place] [phone] Apr, [facility] [address] [id number] [address] [place] [phone] March, [facility] [address] [id number] [address] [place] [phone] March, [facility] [address] [id number] [address] [place] [phone] Feb, [facility] [address] [facility] [id number] [address] [place] [address] Feb, [facility] [address] [id number] [address] [place] [address] Feb, Type 1 diabetes mellitus wit h hyperglycemia E10.65 [facility] [address] [id number] [address] [place] [id number] Jan, [facility] [address] [id number] [address] [place] [address] Jan, [facility] [address] [facility] [id number] [address] [place] [address] Jan, [facility] [address] [id number] [address] [place] [phone] Jan, [facility] [address] [facility] [id number] [address] [place] [phone] Dec, [facility] [address] [facility] [id number] [address] [place] [phone] Nov, [facility] [address] [facility] [id number] [address] [place] [phone] Nov, [facility] [address] [facility] [id number] [address] [place] [phone] Oct, [facility] [address] [facility] [id number] [address] [place] [phone] 04 Oct, 2015 Type 1 diabetes mellitus wit h 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 ; Type 1 diabetes mellitus with hyperglycemia E10.65 ; Gastroparesis K31.84 and Esophageal stricture K22.2 [facility] [address] [facility] [id number] [address] [place] [phone] Oct, [facility] [address] [id number] [address] [place] [id number] Sep, [facility] [address] [id number] [address] [place] [address] Sep, Type 1 diabetes mellitus wit h other diabetic neurological complication E10.49 [facility] [address] [id number] [address] [place] [phone] Aug, Encounter for immunization Z 23 [facility] [address] [id number] [address] [place] [phone] Aug, [facility] [address] [id number] [address] [place] [phone] Aug, [facility] [address] [id number] [address] [place] [phone] Jul, [facility] [address] [id number] [address] [place] [phone] Jul, [facility] [address] [id number] [address] [place] [phone] Jun, [facility] [address] [id number] [address] [place] [phone] Jun, [facility] [address] [id number] [address] [place] [phone] Jun, [facility] [address] [id number] [address] [place] [phone] May, [facility] [address] [id number] [address] [place] [phone] May, [facility] [address] [id number] [address] [place] [phone] May, Diabetes type 1, controlled 250.01 [facility] [address] [id number] [address] [place] [phone] May, [facility] [address] [id number] [address] [place] [phone] May, [facility] [address] [id number] [address] [place] [address] [id number] Apr, Dental examination V72.2 [facility] [address] [id number] [address] [place] [phone] Apr, [facility] [address] [id number] [address] [place] [address] Apr, [facility] [address] [id number] [address] [place] [phone] Apr, [facility] [address] [id number] [address] [place] [phone] Apr, [facility] [address] [id number] [address] [place] [phone] Apr, [facility] [address] [id number] [address] [place] [address] [id number] Apr, Dental examination V72.2 [facility] [address] [id number] [address] [place] [phone] Apr, [facility] [address] [id number] [address] [place] [phone] Apr, [facility] [address] [id number] [address] [place] [address] March, Diabetes mellitus type 1 250 .01 [facility] [address] [id number] [address] [place] [address] March, [facility] [address] [id number] [address] [place] [phone] Feb, [facility] [address] [id number] [address] [place] [phone] Feb, [facility] [address] [id number] [address] [place] [phone] Jan, [facility] [address] [id number] [address] [place] [address] Jan, [facility] [address] [id number] [address] [place] [address], [place] [address] Jan, [facility] [address] [id number] [address] [place] [address], [place] [address] Jan, [facility] [address] [id number] [address] [place] [address], [place] [address] Dec, [facility] [address] [id number] [address] [place] [address], [place] [address] Dec, [facility] [address] [id number] [address] [place] [address], [place] [address] Nov, [facility] [address] [id number] [address] [place] [address], [place] [address] Nov, [facility] [address] [id number] [address] [place] [address], [place] [address] Nov, [facility] [address] [id number] [address] [place] [address], [place] [address] Nov, [facility] [address] [id number] [address] [place] [address], [place] [address] Nov, [facility] [address] [id number] [address] [place] [address], [place] [address] Nov, [facility] [address] [id number] [address] [place] [address] Nov, [facility] [address] [id number] [address] [place] [address] Oct, [facility] [address] [id number] [address] [place] [address], [place] [address] Oct, [facility] [address] [id number] [address] [place] [address], [place] [address] Sep, [facility] [address] [id number] [address] [place] [address], [place] [address] Aug, [facility] [address] [id number] [address] [place] [address], [place] [address] Aug, 2013 [facility] [address] [id number] [address] [place] [address], [place] [address] Aug, [facility] [address] [id number] [address] [place] [address], [place] [address] Aug, [facility] [address] [id number] [address] [place] [address], [place] [address] Aug, [facility] [address] [id number] [address] [place] [address], [place] [address] Aug, [facility] [address] [id number] [address] [place] [address], [place] [address] Aug, [facility] [address] [id number] [address] [place] [address], [place] [address] Aug, [facility] [address] [id number] [address] [place] [address], [place] [address] Aug, [facility] [address] [id number] [address] [place] [address], [place] [address] Aug, [facility] [address] [id number] [address] [place] [address], [place] [address] Aug, [facility] [address] [id number] [address] [place] [address], [place] [address] Aug, [facility] [address] [id number] [address] [place] [address], [place] [address] Aug, 2013 [facility] [address] [id number] [address] [place] [address], [place] [address] Aug, 2013 [facility] [address] [id number] [address] [place] [address], [place] [address] Jul, 2013 [facility] [address] [id number] [address] [place] [address], [place] [address] 13 Jul, 2013 [facility] [address] [id number] [address] [place] [address], [place] [address] Jul, [facility] [address] [id number] [facility] [place] [address] Jul, [facility] [address] [id number] [address] [place] [address], [place] [address] Jun, [facility] [address] [id number] [address] [place] [address], [place] [address] Jun, [facility] [address] [id number] [address] [place] [address], [place] [address] Jun, [facility] [address] [id number] [address] [place] [address], [place] [address] Jun, [facility] [address] [id number] [address] [place] [address], [place] [address] May, [facility] [address] [id number] [address] [place] [address], [place] [address] May, [facility] [address] [id number] [address] [place] [address], [place] [address] May, [facility] [address] [id number] [address] [place] [address], [place] [address] May, [facility] [address] [id number] [address] [place] [address], [place] [address] May, [facility] [address] [id number] [address] [place] [address], [place] [address] May, [facility] [address] [id number] [address] [place] [address], [place] [address] May, [facility] [address] [id number] [address] [place] [address], [place] [address] May, [facility] [address] [id number] [address] [place] [address], [place] [address] May, [facility] [address] [id number] [address] [place] [address], [place] [address] May, [facility] [address] [id number] [address] [place] [address], [place] [address] May, [facility] [address] [id number] [facility] [place] [address] May, [facility] [address] [id number] [address] [place] [address], [place] [address] May, [facility] [address] [id number] [address] [place] [address], [place] [address] Apr, [facility] [address] [id number] [address] [place] [address], [place] [address] Apr, [facility] [address] [id number] [address] [place] [address], [place] [address] Apr, [facility] [address] [id number] [address] [place] [address], [place] [address] Apr, [facility] [address] [id number] [address] [place] [address], [place] [address] Apr, [facility] [facility] [address] [id number] [address] [place] [address], [place] [address] Apr, [facility] [address] [id number] [address] [place] [address], [place] [address] Apr, [facility] [address] [id number] [address] [place] [address], [place] [address] Apr, [facility] [address] [id number] [address] [place] [address], [place] [address] Apr, [facility] [address] [id number] [address] [place] [address], [place] [address] Apr, [facility] [address] [id number] [address] [place] [address], [place] [address] Apr, [facility] [address] [id number] [address] [place] [address], [place] [address] Apr, [facility] [address] [id number] [address] [place] [address], [place] [address] Apr, [facility] [address] [id number] [address] [place] [address], [place] [address] Apr, [facility] [address] [id number] [address] [place] [address], [place] [address] March, [facility] [address] [id number] [address] [place] [address], [place] [address] March, [facility] [address] [id number] [address] [place] [address], [place] [address] March, [facility] [address] [id number] [address] [place] [address], [place] [address] March, [facility] [address] [id number] [address] [place] [address], [place] [address] March, [facility] [address] [id number] [address] [place] [address], [place] [address] March, [facility] [address] [id number] [address] [place] [address], [place] [address] March, [facility] [address] [id number] [address] [place] [address], [place] [address] March, [facility] [address] [id number] [address] [place] [address], [place] [address] March, [facility] [address] [id number] [address] [place] [address], [place] [address] March, [facility] [address] [id number] [address] [place] [address], [place] [address] Feb, [facility] [address] [id number] [address] [place] [address], [place] [address] Feb, [facility] [address] [id number] [address] [place] [address], [place] [address] Feb, [facility] [address] [id number] [address] [place] [address], [place] [address] Feb, [facility] [address] [id number] [address] [place] [address], [place] [address] Feb, [facility] [address] [id number] [facility] [place] [address] Feb, [facility] [address] [id number] [address] [place] [address], [place] [address] Feb, [facility] [address] [id number] [address] [place] [address], [place] [address] Feb, [facility] [address] [id number] [address] [place] [address], [place] [address] Jan, [facility] [address] [id number] [address] [place] [address], [place] [address] Jan, [facility] [address] [id number] [address] [place] [address], [place] [address] Jan, [facility] [address] [id number] [address] [place] [address], [place] [address] Jan, [facility] [address] [id number] [address] [place] [address], [place] [address] Jan, [facility] [address] [id number] [address] [place] [address], [place] [address] Jan, [facility] [address] [id number] [address] [place] [address], [place] [address] Jan, [facility] [address] [id number] [address] [place] [address], [place] [address] Jan, [facility] [address] [id number] [address] [place] [address], [place] [address] Jan, [facility] [address] [id number] [address] [place] [address], [place] [address] Jan, [facility] [address] [id number] [address] [place] [address], [place] [address] Dec, [facility] [address] [id number] [address] [place] [address], [place] [address] Dec, [facility] [address] [id number] [address] [place] [address], [place] [address] Nov, [facility] [address] [id number] [address] [place] [address], [place] [address] Nov, [facility] [address] [id number] [address] [place] [address], [place] [address] Nov, [facility] [address] [id number] [address] [place] [address], [place] [address] Nov, [facility] [address] [id number] [address] [place] [address], [place] [address] Nov, [facility] [address] [id number] [address] [place] [address], [place] [address] Nov, [facility] [address] [id number] [address] [place] [address], [place] [address] Nov, [facility] [address] [id number] [address] [place] [address], [place] [address] Nov, [facility] [address] [id number] [address] [place] [address], [place] [address] Oct, [facility] [address] [id number] [address] [place] [address], [place] [address] Oct, [facility] [address] [id number] [address] [place] [address], [place] [address] Oct, [facility] [address] [id number] [address] [place] [address], [place] [address] Oct, [facility] [address] [id number] [address] [place] [address], [place] [address] Oct, [facility] [address] [id number] [address] [place] [address], [place] [address] Oct, [facility] [address] [id number] [address] [place] [address], [place] [address] Sep, [facility] [address] [id number] [address] [place] [address], [place] [address] Sep, [facility] [address] [id number] [address] [place] [address], [place] [address] Sep, [facility] [address] [id number] [address] [place] [address], [place] [address] Sep, [facility] [address] [id number] [address] [place] [address], [place] [address] Sep, [facility] [address] [id number] [address] [place] [address], [place] [address] Aug, [facility] [address] [id number] [address] [place] [address], [place] [address] Aug, [facility] [address] [id number] [address] [place] [address], [place] [address] Aug, [facility] [address] [id number] [address] [place] [address], [place] [address] Aug, [facility] [address] [id number] [address] [place] [id number] Aug, [facility] [address] [id number] [address] [place] [address], [place] [address] Aug, [facility] [address] [id number] [address] [place] [id number] Jul, [facility] [address] [id number] [address] [place] [id number] Jul, [facility] [address] [id number] [address] [place] [id number] Jul, [facility] [address] [id number] [address] [place] [address], [place] [address] Jun, [facility] [address] [id number] [address] [place] [id number] Jun, [facility] [address] [id number] [address] [place] [phone] May, [facility] [address] [id number] [address] [place] [id number] 10 May, 2013 [facility] [address] [id number] [address] [place] [address], [place] [address] Apr, [facility] [address] [id number] [address] [place] [address], [place] [address] 07 Apr, 2013 [facility] [address] [id number] [address] [place] [address], [place] [address] Apr, [facility] [address] [id number] [address] [place] [address], [place] [address] March, [facility] [address] [id number] [address] [place] [address], [place] [address] Feb, [facility] [address] [id number] [address] [place] [address], [place] [address] Feb, [facility] [address] [id number] [address] [place] [address], [place] [address] Jan, [facility] [address] [id number] [address] [place] [address], [place] [address] Jan, [facility] [address] [id number] [address] [place] [address], [place] [address] Jan, [facility] [address] [id number] [address] [place] [address], [place] [address] Jan, [facility] [address] [id number] [address] [place] [address], [place] [address] Jan, [facility] [address] [id number] [address] [place] [address], [place] [address] Dec, [facility] [address] [id number] [address] [place] [address], [place] [address] Dec, [facility] [address] [id number] [address] [place] [address], [place] [address] 18 Dec, 2012 [facility] [address] [id number] [address] [place] [address], [place] [address] Dec, [facility] [address] [id number] [address] [place] [address], [place] [address] Dec, [facility] [address] [id number] [address] [place] [address], [place] [address] Dec, [facility] [address] [place] [id number] 14 Nov, 2012 [facility] [address] [id number] [address] [place] [address], [place] [address] Nov, [facility] [address] [id number] [address] [place] [address], [place] [address] Nov, [facility] [address] [id number] [address] [place] [address], [place] [address] Nov, [facility] [address] [id number] [address] [place] [address], [place] [address] Nov, [facility] [address] [id number] [address] [place] [address], [place] [address] Oct, [facility] [address] [id number] [address] [place] [address], [place] [address] Oct, [facility] [address] [id number] [address] [place] [address], [place] [address] Oct, [facility] [address] [id number] [address] [place] [address], [place] [address] Oct, [facility] [address] [id number] [address] [place] [address], [place] [address] Oct, [facility] [address] [id number] [address] [place] [address], [place] [address] Oct, [facility] [address] [id number] [address] [place] [address], [place] [address] Oct, [facility] [address] [id number] [address] [place] [address], [place] [address] Oct, [facility] [address] [id number] [address] [place], [place] [address] [address] Sep, [facility] [address] [id number] [address] [place] [id number] Sep, [facility] [address] [id number] [address] [place] [phone] Sep, [facility] [address] [id number] [address] [place] [phone] Sep, [facility] [address] [id number] [address] [place] [id number] Sep, [facility] [address] [id number] [address] [place] [id number] Sep, [facility] [address] [id number] [address] [place] [id number] Sep, [facility] [address] [id number] [address] [place] [phone] Sep, [facility] [address] [id number] [address] [place] [phone] Sep, [facility] [address] [id number] [address] [place] [id number] Sep, [facility] [address] [id number] [address] [place] [id number] Sep, [facility] [address] [id number] [address] [place] [id number] Sep, [facility] [address] [id number] [address] [place] [phone] Sep, [facility] [address] [id number] [address] [place] [phone] Sep, [facility] [address] [id number] [address] [place] [phone] Sep, [facility] [address] [id number] [address] [place] [phone] Sep, IMMUNIZATIONS No Known Immunizations SOCIAL HISTORY Never Assessed REASON FOR VISIT refill PLAN OF CARE VITAL SIGNS MEDICATIONS Medication Instructions Dosage Frequency Start Date End Date Duration S juan Genaro Contour Next Test - test blood sugar 6h Jul, Active RESULTS No Results PROCEDURES No Known procedures INSTRUCTIONS MEDICATIONS ADMINISTERED No Known Medications MEDICAL (GENERAL) HISTORY Type Description Date Medical History hypertension Medical History type I diabetes Medical History chronic renal insufficiency Surgical History gastric pacemaker 2008 Hospitalization History nausea 2011
--- OUTSIDE RECORDS SUMMARY | 2020-04-17 21:40 | XMS REPORT ---
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 Name Role Phone BISMARK PATIÑO Unavailable PROBLEMS Type Condition ICD9-CM Code ATD59-HQ Code Onset Dates Condition S tatus SNOMED Code Problem Hypertension, essential I10 Active 72559347 Problem Mood disorder F39 Active 956031 05 Problem Chronic fatigue R53.82 Active 8422 9001 Problem Type 1 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 Active 57023900 Problem Type 1 diabetes mellitus with other diab etic neurological complication E10.49 Active 14077612 Problem Gastroparesis K31.84 Active 729221 006 Problem Type 1 diabetes mellitus with hyperglycemia E10.65 Active [id number] Problem 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 Active [id number] ALLERGIES No Information ENCOUNTERS Encounter Location Date Diagnosis [facility] [address] [facility] [place] [id number] [address] [place] [phone] Jul, Type 1 diabetes mellitus wit h hyperglycemia E10.65 [facility] [address] [facility] [place] [id number] [address] [place] [phone] Jul, [facility] [address] [facility] [place] [id number] [address] [place] [id number] 18 Jul, 2018 [facility] [address] [facility] [place] [id number] [address] [place] [id number] Jul, Type 1 diabetes mellitus wit h other diabetic neurological complication E10.49 [facility] [address] [facility] [place] [facility] [id number] [address] [place] [phone] Jul, Type 1 diabetes mellitus wit h other diabetic neurological complication E10.49 and Mood disorder F39 [facility] [address] [facility] [place] [facility] [id number] [address] [place] [phone] Jun, [facility] [address] [id number] [address] [place] [phone] Jun, Type 1 diabetes mellitus wit h other diabetic neurological complication E10.49 and Chronic fatigue R53.82 [facility] [address] [id number] [address] [place] [id number] May, Type 1 diabetes mellitus wit h other diabetic neurological complication E10.49 [facility] [address] [id number] [address] [place] [phone] May, [facility] [address] [id number] [address] [place] [phone] May, [facility] [address] [id number] [address] [place] [phone] Apr, [facility] [address] [facility] [place] [id number] [address] [place] [phone] Apr, Type 1 diabetes mellitus wit h other diabetic neurological complication E10.49 [facility] [address] [id number] [address] [place] [phone] March, [facility] [address] [id number] [address] [place] [phone] Feb, [facility] [address] [facility] [place] [id number] [address] [place] [phone] Feb, Type 1 diabetes mellitus wit h other diabetic neurological complication E10.49 ; Tobacco abuse Z72.0 and Tobacco abuse counseling Z71.6 [facility] [address] [facility] [place] [facility] [id number] [address] [place] [phone] Jan, Type 1 diabetes mellitus wit h hyperglycemia E10.65 [facility] [address] [id number] [address] [place] [phone] Jan, [facility] [address] [facility] [place] [id number] [address] [place] [phone] Dec, Tobacco abuse Z72.0 [facility] [address] [facility] [place] [id number] [address] [place] [phone] Dec, Type 1 diabetes mellitus wit h hyperglycemia E10.65 [facility] [address] [facility] [place] [id number] [address] [place] [phone] Dec, Type 1 diabetes mellitus wit h hyperglycemia E10.65 ; Tobacco abuse Z72.0 and Tobacco abuse counseling Z71.6 [facility] [address] [facility] [place] [id number] [address] [place] [phone] Nov, Type 1 diabetes mellitus wit h hyperglycemia E10.65 [facility] [address] [facility] [place] [id number] [address] [place] [id number] Oct, Type 1 diabetes mellitus wit h hyperglycemia E10.65 [facility] [address] [facility] [place] [id number] [address] [place] [phone] Oct, Type 1 diabetes mellitus wit h hyperglycemia E10.65 [facility] [address] [facility] [place] [id number] [address] [place] [phone] Sep, Type 1 diabetes mellitus wit h hyperglycemia E10.65 [facility] [address] [facility] [place] [id number] [address] [place] [id number] Aug, Type 1 diabetes mellitus wit h hyperglycemia E10.65 [facility] [address] [facility] [place] [id number] [address] [place] [phone] Aug, [facility] [address] [facility] [place] [id number] [address] [place] [phone] Aug, Type 1 diabetes mellitus wit h hyperglycemia E10.65 [facility] [address] [facility] [place] [id number] [address] [place] [phone] Aug, Encounter for immunization Z 23 [facility] [address] [facility] [place] [id number] [address] [place] [phone] Aug, Type 1 diabetes mellitus wit h hyperglycemia E10.65 [facility] [address] [facility] [place] [id number] [address] [place] [phone] Jul, Type 1 diabetes mellitus wit h hyperglycemia E10.65 [facility] [address] [facility] [place] [id number] [address] [place] [phone] Jul, Type 1 diabetes mellitus wit h hyperglycemia E10.65 [facility] [address] [id number] [address] [place] [phone] May, Type 1 diabetes mellitus wit h hyperglycemia E10.65 [facility] [address] [id number] [address] [place] [phone] May, [facility] [address] [id number] [address] [place] [phone] Apr, [facility] [address] [id number] [address] [place] [phone] Apr, Type 1 diabetes mellitus wit h hyperglycemia E10.65 [facility] [address] [id number] [address] [place] [phone] March, [facility] [address] [id number] [address] [place] [phone] March, [facility] [address] [id number] [address] [place] [phone] Jan, [facility] [address] [id number] [address] [place] [phone] Jan, [facility] [address] [id number] [address] [place] [phone] Jan, Type 1 diabetes mellitus wit diabetic polyneuropathy E10.42 [facility] [address] [id number] [address] [place] [id number] Jan, Type 1 diabetes mellitus wit h hyperglycemia E10.65 ; Excessive cerumen in both ear canals H61.23 and Controlled diabetes mellitus type 1 without complications E10.9 [facility] [address] [id number] [address] [place] [phone] Dec, [facility] [address] [id number] [address] [place] [phone] Dec, [facility] [address] [id number] [address] [place] [phone] Dec, [facility] [address] [id number] [address] [place] [phone] Dec, [facility] [address] [id number] [address] [place] [phone] Nov, [facility] [address] [id number] [address] [place] [phone] Nov, [facility] [address] [id number] [address] [place] [id number] Oct, Type 1 diabetes mellitus wit h hyperglycemia E10.65 [facility] [address] [id number] [address] [place] [phone] Sep, [facility] [address] [id number] [address] [place] [phone] Sep, [facility] [address] [id number] [address] [place] [id number] Sep, Controlled diabetes mellitus type 1 without complications E10.9 [facility] [address] [id number] [address] [place] [id number] Sep, [facility] [address] [id number] [address] [place] [id number] Aug, Dental caries K02.9 [facility] [address] [id number] [address] [place] [phone] Aug, Type 1 diabetes mellitus wit h diabetic polyneuropathy E10.42 [facility] [address] [id number] [address] [place] [id number] Aug, [facility] [address] [id number] [address] [place] [phone] Aug, [facility] [address] [id number] [address] [place] [phone] Aug, [facility] [address] [id number] [address] [place] [phone] Jul, Type 1 diabetes mellitus wit h hyperglycemia E10.65 [facility] [address] [id number] [address] [place] [id number] 23 Jul, 2016 Type 1 diabetes mellitus wit h hyperglycemia E10.65 ; Tooth pain K08.8 and Encounter for immunization Z23 [facility] [address] [id number] [address] [place] [id number] Jul, 2016 Dental examination Z01.20 [facility] [address] [id number] [address] [place] [phone] 08 Jul, 2016 [facility] [address] [id number] [address] [place] [id number] 07 Jul, 2016 [facility] [address] [id number] [address] [place] [phone] Jul, [facility] [address] [id number] [address] [place] [phone] Jun, [facility] [address] [id number] [address] [place] [phone] May, [facility] [address] [id number] [address] [place] [id number] Apr, [facility] [address] [id number] [address] [place] [phone] Apr, [facility] [address] [id number] [address] [place] [phone] Apr, [facility] [address] [id number] [address] [place] [phone] March, [facility] [address] [id number] [address] [place] [phone] March, [facility] [address] [id number] [address] [place] [phone] Feb, [facility] [address] [id number] [address] [place] [phone] Feb, [facility] [address] [id number] [address] [place] [phone] Feb, Type 1 diabetes mellitus wit h hyperglycemia E10.65 [facility] [address] [facility] [place] [id number] [address] [place] [phone] Jan, [facility] [address] [facility] [place] [id number] [address] [place] [phone] Jan, [facility] [address] [facility] [place] [id number] [address] [place] [phone] Jan, [facility] [address] [facility] [place] [id number] [address] [place] [phone] Jan, [facility] [address] [facility] [place] [id number] [address] [place] [phone] Dec, [facility] [address] [facility] [place] [id number] [address] [place] [phone] Nov, [facility] [address] [facility] [place] [id number] [address] [place] [id number] Nov, [facility] [address] [facility] [place] [id number] [address] [place] [phone] Oct, [facility] [address] [facility] [place] [id number] [address] [place] [phone] 04 Oct, 2015 Type 1 diabetes mellitus wit h 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 ; Type 1 diabetes mellitus with hyperglycemia E10.65 ; Gastroparesis K31.84 and Esophageal stricture K22.2 [facility] [address] [facility] [place] [id number] [address] [place] [phone] Oct, [facility] [address] [facility] [place] [id number] [address] [place] [id number] Sep, [facility] [address] [facility] [place] [id number] [address] [place] [id number] 13 Sep, 2015 Type 1 diabetes mellitus wit h other diabetic neurological complication E10.49 [facility] [address] [facility] [place] [id number] [address] [place] [phone] Aug, Encounter for immunization Z 23 [facility] [address] [id number] [address] [place] [phone] Aug, [facility] [address] [id number] [address] [place] [phone] Aug, [facility] [address] [id number] [address] [place] [phone] Jul, [facility] [address] [id number] [address] [place] [phone] Jul, [facility] [address] [id number] [address] [place] [phone] Jun, [facility] [address] [id number] [address] [place] [id number] Jun, [facility] [address] [id number] [address] [place] [phone] Jun, [facility] [address] [id number] [address] [place] [phone] May, [facility] [address] [id number] [address] [place] [phone] May, [facility] [address] [id number] [address] [place] [phone] May, Diabetes type 1, controlled 250.01 [facility] [address] [id number] [address] [place] [phone] May, [facility] [address] [id number] [address] [place] [phone] May, [facility] [address] [id number] [address] [place] [id number] Apr, Dental examination V72.2 [facility] [address] [id number] [address] [place] [phone] Apr, [facility] [address] [id number] [address] [place] [phone] Apr, [facility] [address] [id number] [address] [place] [phone] Apr, [facility] [address] [id number] [address] [place] [phone] Apr, [facility] [address] [id number] [address] [place] [phone] Apr, [facility] [address] [id number] [address] [place] [id number] Apr, Dental examination V72.2 [facility] [address] [id number] [address] [place] [phone] Apr, [facility] [address] [id number] [address] [place] [phone] Apr, [facility] [address] [id number] [address] [place] [phone] March, Diabetes mellitus type 1 250 .01 [facility] [address] [id number] [address] [place] [phone] March, [facility] [address] [id number] [address] [place] [phone] Feb, [facility] [address] [id number] [address] [place] [phone] Feb, [facility] [address] [id number] [address] [place] [phone] Jan, [facility] [address] [id number] [address] [place] [phone] Jan, [facility] [address] [id number] [address] [place] [phone] Jan, [facility] [address] [id number] [address] [place] [phone] Jan, [facility] [address] [id number] [address] [place] [phone] Dec, [facility] [address] [id number] [address] [place] [phone] Dec, [facility] [address] [id number] [address] [place] [address], [place] [address] Nov, [facility] [address] [id number] [address] [place] [address], [place] [address] Nov, [facility] [address] [id number] [address] [place] [address], [place] [address] Nov, [facility] [address] [id number] [address] [place] [address], [place] [address] Nov, [facility] [address] [id number] [address] [place] [address], [place] [address] Nov, [facility] [address] [id number] [address] [place] [address], [place] [address] Nov, [facility] [address] [id number] [address] [place] [address], [place] [address] Nov, [facility] [address] [id number] [address] [place] [address], [place] [address] Oct, [facility] [address] [id number] [address] [place] [address], [place] [address] Oct, [facility] [address] [id number] [address] [place] [address], [place] [address] Sep, [facility] [address] [id number] [address] [place] [address], [place] [address] Aug, [facility] [address] [id number] [address] [place] [address], [place] [address] Aug, [facility] [address] [id number] [address] [place] [address], [place] [address] Aug, [facility] [address] [id number] [address] [place] [address], [place] [address] Aug, [facility] [address] [id number] [address] [place] [address], [place] [address] Aug, [facility] [address] [id number] [address] [place] [address], [place] [address] Aug, [facility] [address] [id number] [address] [place] [address], [place] [address] Aug, [facility] [address] [id number] [address] [place] [address], [place] [address] Aug, [facility] [address] [id number] [address] [place] [address], [place] [address] Aug, [facility] [address] [id number] [address] [place] [address], [place] [address] Aug, [facility] [address] [id number] [address] [place] [address], [place] [address] Aug, [facility] [address] [id number] [address] [place] [address], [place] [address] Aug, [facility] [address] [id number] [address] [place] [address], [place] [address] Aug, [facility] [address] [id number] [address] [place] [address], [place] [address] Aug, [facility] [address] [id number] [address] [place] [address], [place] [address] Jul, [facility] [address] [id number] [address] [place] [address], [place] [address] Jul, [facility] [address] [id number] [address] [place] [address], [place] [address] Jul, [facility] [address] [id number] [address] [place] [address], [place] [address] Jul, [facility] [address] [id number] [address] [place] [address], [place] [address] Jun, [facility] [address] [id number] [address] [place] [address], [place] [address] Jun, [facility] [address] [id number] [address] [place] [address], [place] [address] Jun, [facility] [address] [id number] [facility] [place] [address] Jun, [facility] [address] [id number] [address] [place] [address], [place] [address] May, [facility] [address] [id number] [address] [place] [address], [place] [address] May, [facility] [address] [id number] [address] [place] [address], [place] [address] May, [facility] [address] [id number] [address] [place] [address], [place] [address] May, [facility] [address] [id number] [address] [place] [address], [place] [address] May, [facility] [address] [id number] [address] [place] [address], [place] [address] May, [facility] [address] [id number] [address] [place] [address], [place] [address] May, [facility] [address] [id number] [address] [place] [address], [place] [address] May, [facility] [address] [id number] [address] [place] [address], [place] [address] May, [facility] [address] [id number] [address] [place] [address], [place] [address] May, [facility] [address] [id number] [address] [place] [address], [place] [address] May, [facility] [address] [id number] [address] [place] [address], [place] [address] May, [facility] [address] [id number] [address] [place] [address], [place] [address] May, [facility] [address] [id number] [address] [place] [address], [place] [address] Apr, [facility] [address] [id number] [facility] [place] [address] Apr, [facility] [address] [id number] [facility] [place] [address] Apr, [facility] [address] [id number] [facility] [place] [address] Apr, [facility] [address] [id number] [address] [place] [address], [place] [address] Apr, [facility] [address] [id number] [address] [place] [address], [place] [address] Apr, [facility] [address] [id number] [address] [place] [address], [place] [address] Apr, [facility] [address] [id number] [address] [place] [address], [place] [address] Apr, [facility] [address] [id number] [address] [place] [address], [place] [address] Apr, [facility] [address] [id number] [address] [place] [address], [place] [address] Apr, [facility] [address] [id number] [address] [place] [address], [place] [address] Apr, [facility] [address] [id number] [address] [place] [address], [place] [address] Apr, [facility] [address] [id number] [address] [place] [address], [place] [address] Apr, [facility] [address] [id number] [address] [place] [address], [place] [address] Apr, [facility] [address] [id number] [address] [place] [address], [place] [address] March, [facility] [address] [id number] [address] [place] [address], [place] [address] March, [facility] [facility] [address] [id number] [address] [place] [address], [place] [address] March, [facility] [address] [id number] [address] [place] [address], [place] [address] March, [facility] [address] [id number] [address] [place] [address], [place] [address] March, [facility] [address] [id number] [address] [place] [address], [place] [address] March, [facility] [address] [id number] [address] [place] [address], [place] [address] March, [facility] [address] [id number] [address] [place] [address], [place] [address] March, [facility] [address] [id number] [address] [place] [address], [place] [address] March, [facility] [address] [id number] [address] [place] [address], [place] [address] March, [facility] [address] [id number] [address] [place] [address], [place] [address] Feb, [facility] [address] [id number] [address] [place] [address], [place] [address] Feb, [facility] [address] [id number] [address] [place] [address], [place] [address] Feb, [facility] [address] [id number] [address] [place] [address], [place] [address] Feb, [facility] [address] [id number] [address] [place] [address], [place] [address] Feb, [facility] [address] [id number] [address] [place] [address], [place] [address] Feb, [facility] [address] [id number] [address] [place] [address], [place] [address] Feb, [facility] [address] [id number] [address] [place] [address], [place] [address] Feb, [facility] [address] [id number] [address] [place] [address], [place] [address] 18 Jan, 2014 [facility] [address] [id number] [facility] [place] [address] Jan, [facility] [address] [id number] [address] [place] [address], [place] [address] Jan, [facility] [address] [id number] [address] [place] [address], [place] [address] Jan, [facility] [address] [id number] [address] [place] [address], [place] [address] Jan, [facility] [address] [id number] [address] [place] [address], [place] [address] Jan, [facility] [address] [id number] [address] [place] [address], [place] [address] Jan, [facility] [address] [id number] [address] [place] [address], [place] [address] Jan, [facility] [address] [id number] [address] [place] [address], [place] [address] Jan, [facility] [address] [id number] [address] [place] [address], [place] [address] Jan, [facility] [address] [id number] [address] [place] [address], [place] [address] Dec, [facility] [address] [id number] [address] [place] [address], [place] [address] Dec, [facility] [address] [id number] [address] [place] [address], [place] [address] Nov, [facility] [address] [id number] [address] [place] [address], [place] [address] Nov, [facility] [address] [id number] [address] [place] [address], [place] [address] Nov, [facility] [address] [id number] [address] [place] [address], [place] [address] Nov, [facility] [address] [id number] [address] [place] [address], [place] [address] 15 Nov, 2013 [facility] [address] [id number] [address] [place] [address], [place] [address] Nov, [facility] [address] [id number] [address] [place] [address], [place] [address] Nov, [facility] [address] [id number] [address] [place] [address], [place] [address] Nov, [facility] [address] [id number] [address] [place] [address], [place] [address] Oct, [facility] [address] [id number] [address] [place] [address], [place] [address] Oct, [facility] [address] [id number] [address] [place] [address], [place] [address] Oct, [facility] [address] [id number] [address] [place] [address], [place] [address] Oct, [facility] [address] [id number] [address] [place] [address], [place] [address] Oct, [facility] [address] [id number] [address] [place] [address], [place] [address] Oct, [facility] [address] [id number] [address] [place] [address], [place] [address] Sep, [facility] [address] [id number] [address] [place] [address], [place] [address] Sep, [facility] [address] [id number] [address] [place] [address], [place] [address] Sep, [facility] [address] [id number] [address] [place] [address], [place] [address] Sep, [facility] [address] [id number] [address] [place] [address], [place] [address] 05 Sep, 2013 [facility] [address] [id number] [address] [place] [address], [place] [address] Aug, [facility] [address] [id number] [address] [place] [address], [place] [address] Aug, [facility] [address] [id number] [address] [place] [address], [place] [address] Aug, [facility] [address] [id number] [address] [place] [address], [place] [address] Aug, [facility] [address] [id number] [address] [place] [address], [place] [address] Aug, [facility] [address] [id number] [address] [place] [address], [place] [address] Aug, [facility] [address] [id number] [address] [place] [address], [place] [address] Jul, [facility] [address] [id number] [address] [place] [address], [place] [address] Jul, [facility] [address] [id number] [address] [place] [address], [place] [address] Jul, [facility] [address] [id number] [address] [place] [address], [place] [address] Jun, [facility] [address] [id number] [address] [place] [address], [place] [address] Jun, [facility] [address] [id number] [address] [place] [address], [place] [address] May, [facility] [address] [id number] [address] [place] [address] May, [facility] [address] [id number] [address] [place] [address], [place] [address] Apr, [facility] [address] [id number] [address] [place] [address], [place] [address] Apr, [facility] [address] [id number] [address] [place] [address], [place] [address] Apr, [facility] [address] [id number] [address] [place] [address], [place] [address] March, [facility] [address] [id number] [address] [place] [address], [place] [address] Feb, [facility] [address] [id number] [address] [place] [address], [place] [address] Feb, [facility] [address] [id number] [address] [place] [address], [place] [address] Jan, [facility] [address] [id number] [address] [place] [address], [place] [address] Jan, [facility] [address] [id number] [address] [place] [address], [place] [address] Jan, [facility] [address] [id number] [address] [place] [address], [place] [address] Jan, [facility] [address] [id number] [address] [place] [address], [place] [address] Jan, [facility] [address] [id number] [address] [place] [address], [place] [address] Dec, [facility] [address] [id number] [address] [place] [address], [place] [address] Dec, [facility] [address] [id number] [address] [place] [address], [place] [address] Dec, [facility] [address] [id number] [address] [place] [address], [place] [address] Dec, [facility] [address] [id number] [address] [place] [address], [place] [address] Dec, [facility] [address] [id number] [address] [place] [address], [place] [address] Dec, [facility] [place] [id number] Nov, [facility] [address] [id number] [address] [place] [address], [place] [address] Nov, [facility] [address] [id number] [address] [place] [address], [place] [address] Nov, [facility] [address] [id number] [address] [place] [address], [place] [address] Nov, [facility] [address] [id number] [address] [place] [address], [place] [address] Nov, [facility] [address] [id number] [address] [place] [address], [place] [address] Oct, [facility] [address] [id number] [address] [place] [address], [place] [address] Oct, [facility] [address] [id number] [address] [place] [address], [place] [address] Oct, [facility] [address] [id number] [address] [place] [address], [place] [address] Oct, [facility] [address] [id number] [address] [place] [address], [place] [address] Oct, [facility] [address] [id number] [address] [place] [address], [place] [address] Oct, [facility] [address] [id number] [address] [place] [address], [place] [address] Oct, [facility] [address] [id number] [address] [place] [address], [place] [address] Oct, [facility] [address] [id number] [address] [place] [address], [place] [address] Sep, [facility] [address] [id number] [address] [place] [address], [place] [address] Sep, [facility] [address] [id number] [address] [place] [address], [place] [address] Sep, [facility] [address] [id number] [address] [place] [address], [place] [address] Sep, [facility] [address] [id number] [address] [place] [address] Sep, [facility] [address] [id number] [address] [place] [address] 14 Sep, 2012 [facility] [address] [id number] [address] [place] [address] Sep, [facility] [address] [id number] [address] [place] [address] Sep, [facility] [address] [id number] [address] [place] [address] Sep, [facility] [address] [id number] [address] [place] [address] Sep, [facility] [address] [id number] [address] [place] [address] Sep, [facility] [address] [id number] [address] [place] [address] Sep, [facility] [address] [id number] [address] [place] [address] Sep, [facility] [address] [id number] [address] [place] [address] Sep, [facility] [address] [id number] [address] [place] [address] Sep, [facility] [address] [id number] [address] [place] [address] Sep, IMMUNIZATIONS No Known Immunizations SOCIAL HISTORY Never Assessed REASON FOR VISIT Lab PLAN OF CARE VITAL SIGNS MEDICATIONS Unknown Medications RESULTS No Results PROCEDURES Procedure Date Ordered Result Body Site LAB NOT BILLED BY [facility] Aug 07, 2018 INSTRUCTIONS MEDICATIONS ADMINISTERED No Known Medications MEDICAL (GENERAL) HISTORY Type Description Date Medical History hypertension Medical History type I diabetes Medical History chronic renal insufficiency Surgical History gastric pacemaker 2008 Hospitalization History nausea 2011
--- OUTSIDE RECORDS SUMMARY | 2020-04-17 21:40 | XMS REPORT ---
Author Author Curt PATIÑO Organization [facility] Address [address] [place] [address] Care Team Providers Care Financial Secretary Name Role Phone BISMARK PATIÑO Unavailable PROBLEMS Type Condition ICD9-CM Code NIU38-JD Code Onset Dates Condition S tatus SNOMED Code Problem Hypertension, essential I10 Active 53071767 Problem Mood disorder F39 Active 441803 05 Problem Chronic fatigue R53.82 Active 8422 9001 Problem Type 1 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 Active 39503037 Problem Type 1 diabetes mellitus with other diab etic neurological complication E10.49 Active 52661287 Problem Gastroparesis K31.84 Active 957048 006 Problem Type 1 diabetes mellitus with hyperglycemia E10.65 Active 033008034616601 Problem 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 Active 85799727 ALLERGIES No Information ENCOUNTERS Encounter Location Date Diagnosis [facility] [address] [facility] [id number] [address] [place] [address] Jul, Type 1 diabetes mellitus wit h hyperglycemia E10.65 [facility] [address] [facility] [id number] [address] [place] [address] Jul, [facility] [address] [facility] [id number] [address] [place] [address] 18 Jul, 2018 [facility] [address] [facility] [id number] [address] [place] [address] Jul, Type 1 diabetes mellitus wit h other diabetic neurological complication E10.49 [facility] [address] [facility] [id number] [address] [place] [address] Jul, Type 1 diabetes mellitus wit h other diabetic neurological complication E10.49 and Mood disorder F39 [facility] [address] [facility] [id number] [address] [place] [address] Jun, [facility] [address] [id number] [address] [place] [address] Jun, Type 1 diabetes mellitus wit h other diabetic neurological complication E10.49 and Chronic fatigue R53.82 [facility] [address] [id number] [address] [place] [address] May, Type 1 diabetes mellitus wit h other diabetic neurological complication E10.49 [facility] [address] [id number] [address] [place] [address] May, [facility] [address] [id number] [address] [place] [address] May, [facility] [address] [id number] [address] [place] [address] Apr, [facility] [address] [facility] [id number] [address] [place] [address] Apr, Type 1 diabetes mellitus wit h other diabetic neurological complication E10.49 [facility] [address] [id number] [address] [place] [address] March, [facility] [address] [id number] [address] [place] [address] Feb, [facility] [address] [facility] [id number] [address] [place] [address] Feb, Type 1 diabetes mellitus wit h other diabetic neurological complication E10.49 ; Tobacco abuse Z72.0 and Tobacco abuse counseling Z71.6 [facility] [address] [facility] [id number] [address] [place] [address] Jan, Type 1 diabetes mellitus wit h hyperglycemia E10.65 [facility] [address] [id number] [address] [place] [address] Jan, [facility] [address] [facility] [id number] [address] [place] [address] Dec, Tobacco abuse Z72.0 [facility] [address] [facility] [id number] [address] [place] [address] Dec, Type 1 diabetes mellitus wit h hyperglycemia E10.65 [facility] [address] [facility] [id number] [address] [place] [address] Dec, Type 1 diabetes mellitus wit h hyperglycemia E10.65 ; Tobacco abuse Z72.0 and Tobacco abuse counseling Z71.6 [facility] [address] [facility] [id number] [address] [place] [address] Nov, Type 1 diabetes mellitus wit h hyperglycemia E10.65 [facility] [address] [facility] [id number] [address] [place] [address] Oct, Type 1 diabetes mellitus wit h hyperglycemia E10.65 [facility] [address] [facility] [id number] [address] [place] [address] Oct, Type 1 diabetes mellitus wit h hyperglycemia E10.65 [facility] [address] [facility] [id number] [address] [place] [address] Sep, Type 1 diabetes mellitus wit h hyperglycemia E10.65 [facility] [address] [facility] [id number] [address] [place] [address] Aug, Type 1 diabetes mellitus wit h hyperglycemia E10.65 [facility] [address] [facility] [id number] [address] [place] [address] Aug, [facility] [address] [facility] [id number] [address] [place] [address] Aug, Type 1 diabetes mellitus wit h hyperglycemia E10.65 [facility] [address] [facility] [id number] [address] [place] [address] Aug, Encounter for immunization Z 23 [facility] [address] [facility] [id number] [address] [place] [address] Aug, Type 1 diabetes mellitus wit h hyperglycemia E10.65 [facility] [address] [facility] [id number] [address] [place] [address] Jul, Type 1 diabetes mellitus wit h hyperglycemia E10.65 [facility] [address] [facility] [id number] [address] [place] [address] Jul, Type 1 diabetes mellitus wit h hyperglycemia E10.65 [facility] [address] [id number] [address] [place] [address] May, Type 1 diabetes mellitus wit h hyperglycemia E10.65 [facility] [address] [id number] [address] [place] [address] May, [facility] [address] [id number] [address] [place] [address] Apr, [facility] [address] [id number] [address] [place] [address] Apr, Type 1 diabetes mellitus wit h hyperglycemia E10.65 [facility] [address] [id number] [address] [place] [address] March, [facility] [address] [id number] [address] [place] [address] March, [facility] [address] [id number] [address] [place] [address] Jan, [facility] [address] [id number] [address] [place] [address] Jan, [facility] [address] [id number] [address] [place] [address] Jan, Type 1 diabetes mellitus wit diabetic polyneuropathy E10.42 [facility] [address] [id number] [address] [place] [address] Jan, Type 1 diabetes mellitus wit h hyperglycemia E10.65 ; Excessive cerumen in both ear canals H61.23 and Controlled diabetes mellitus type 1 without complications E10.9 [facility] [address] [id number] [address] [place] [address] Dec, [facility] [address] [id number] [address] [place] [address] Dec, [facility] [address] [id number] [address] [place] [address] Dec, [facility] [address] [id number] [address] [place] [address] Dec, [facility] [address] [id number] [address] [place] [address] Nov, [facility] [address] [id number] [address] [place] [address] Nov, [facility] [address] [id number] [address] [place] [address] Oct, Type 1 diabetes mellitus wit h hyperglycemia E10.65 [facility] [address] [id number] [address] [place] [address] Sep, [facility] [address] [id number] [address] [place] [address] Sep, [facility] [address] [id number] [address] [place] [address] Sep, Controlled diabetes mellitus type 1 without complications E10.9 [facility] [address] [id number] [address] [place] [address] Sep, [facility] [address] [id number] [address] [place] [id number] Aug, Dental caries K02.9 [facility] [address] [id number] [address] [place] [address] Aug, Type 1 diabetes mellitus wit h diabetic polyneuropathy E10.42 [facility] [address] [id number] [address] [place] [address] Aug, [facility] [address] [id number] [address] [place] [address] Aug, [facility] [address] [id number] [address] [place] [address] Aug, [facility] [address] [id number] [address] [place] [address] Jul, Type 1 diabetes mellitus wit h hyperglycemia E10.65 [facility] [address] [id number] [address] [place] [address] 23 Jul, 2016 Type 1 diabetes mellitus wit h hyperglycemia E10.65 ; Tooth pain K08.8 and Encounter for immunization Z23 [facility] [address] [id number] [address] [place] [id number] Jul, 2016 Dental examination Z01.20 [facility] [address] [id number] [address] [place] [address] 08 Jul, 2016 [facility] [address] [id number] [address] [place] [address] 07 Jul, 2016 [facility] [address] [id number] [address] [place] [address] Jul, [facility] [address] [id number] [address] [place] [address] Jun, [facility] [address] [id number] [address] [place] [address] May, [facility] [address] [id number] [address] [place] [address] Apr, [facility] [address] [id number] [address] [place] [address] Apr, [facility] [address] [id number] [address] [place] [address] Apr, [facility] [address] [id number] [address] [place] [address] March, [facility] [address] [id number] [address] [place] [address] March, [facility] [address] [id number] [address] [place] [address] Feb, [facility] [address] [id number] [address] [place] [address] Feb, [facility] [address] [id number] [address] [place] [address] Feb, Type 1 diabetes mellitus wit h hyperglycemia E10.65 [facility] [address] [facility] [id number] [address] [place] [address] Jan, [facility] [address] [facility] [id number] [address] [place] [address] Jan, [facility] [address] [facility] [id number] [address] [place] [address] Jan, [facility] [address] [facility] [id number] [address] [place] [address] Jan, [facility] [address] [facility] [id number] [address] [place] [address] Dec, [facility] [address] [facility] [id number] [address] [place] [address] Nov, [facility] [address] [facility] [id number] [address] [place] [address] Nov, [facility] [address] [facility] [id number] [address] [place] [address] Oct, [facility] [address] [facility] [id number] [address] [place] [address] 04 Oct, 2015 Type 1 diabetes mellitus wit h 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 ; Type 1 diabetes mellitus with hyperglycemia E10.65 ; Gastroparesis K31.84 and Esophageal stricture K22.2 [facility] [address] [facility] [id number] [address] [place] [address] Oct, [facility] [address] [facility] [id number] [address] [place] [address] Sep, [facility] [address] [facility] [id number] [address] [place] [phone] 13 Sep, 2015 Type 1 diabetes mellitus wit h other diabetic neurological complication E10.49 [facility] [address] [facility] [id number] [address] [place] [address] Aug, Encounter for immunization Z 23 [facility] [address] [id number] [address] [place] [address] Aug, [facility] [address] [id number] [address] [place] [address] Aug, [facility] [address] [id number] [address] [place] [address] Jul, [facility] [address] [id number] [address] [place] [address] Jul, [facility] [address] [id number] [address] [place] [address] Jun, [facility] [address] [id number] [address] [place] [address] Jun, [facility] [address] [id number] [address] [place] [address] Jun, [facility] [address] [id number] [address] [place] [address] May, [facility] [address] [id number] [address] [place] [address] May, [facility] [address] [id number] [address] [place] [address] May, Diabetes type 1, controlled 250.01 [facility] [address] [id number] [address] [place] [address] May, [facility] [address] [id number] [address] [place] [address] May, [facility] [address] [id number] [address] [place] [id number] Apr, Dental examination V72.2 [facility] [address] [id number] [address] [place] [address] Apr, [facility] [address] [id number] [address] [place] [address] Apr, [facility] [address] [id number] [address] [place] [address] Apr, [facility] [address] [id number] [address] [place] [address] Apr, [facility] [address] [id number] [address] [place] [address] Apr, [facility] [address] [id number] [address] [place] [address] [id number] Apr, Dental examination V72.2 [facility] [address] [id number] [address] [place] [address] Apr, [facility] [address] [id number] [address] [place] [address] Apr, [facility] [address] [id number] [address] [place] [address] March, Diabetes mellitus type 1 250 .01 [facility] [address] [id number] [address] [place] [address] March, [facility] [address] [id number] [address] [place] [address] Feb, [facility] [address] [id number] [address] [place] [address] Feb, [facility] [address] [id number] [address] [place] [address] Jan, [facility] [address] [id number] [address] [place] [address] Jan, [facility] [address] [id number] [address] [place] [address] Jan, [facility] [address] [id number] [address] [place] [address] Jan, [facility] [address] [id number] [address] [place] [address] Dec, [facility] [address] [id number] [address] [place] [address] Dec, [facility] [address] [id number] [address] [place] [address], [place] [phone] Nov, [facility] [address] [id number] [address] [place] [address], [place] [address] Nov, [facility] [address] [id number] [address] [place] [address], [place] [address] Nov, [facility] [address] [id number] [address] [place] [address], [place] [address] Nov, [facility] [address] [id number] [address] [place] [address], [place] [address] Nov, [facility] [address] [id number] [address] [place] [address], [place] [address] Nov, [facility] [address] [id number] [address] [place] [address], [place] [address] Nov, [facility] [address] [id number] [address] [place] [address], [place] [address] Oct, [facility] [address] [id number] [address] [place] [address], [place] [address] Oct, [facility] [address] [id number] [address] [place] [address], [place] [address] Sep, [facility] [address] [id number] [address] [place] [address], [place] [address] Aug, [facility] [address] [id number] [address] [place] [address], [place] [address] Aug, [facility] [address] [id number] [address] [place] [address], [place] [address] Aug, [facility] [address] [id number] [address] [place] [address], [place] [address] Aug, [facility] [address] [id number] [address] [place] [address], [place] [address] Aug, [facility] [address] [id number] [address] [place] [address], [place] [address] Aug, [facility] [address] [id number] [address] [place] [address], [place] [address] Aug, [facility] [address] [id number] [address] [place] [address], [place] [address] Aug, [facility] [address] [id number] [address] [place] [address], [place] [address] Aug, [facility] [address] [id number] [address] [place] [address], [place] [address] Aug, [facility] [address] [id number] [address] [place] [address], [place] [address] Aug, [facility] [address] [id number] [address] [place] [address], [place] [address] Aug, [facility] [address] [id number] [address] [place] [address], [place] [address] Aug, [facility] [address] [id number] [address] [place] [address], [place] [address] Aug, [facility] [address] [id number] [address] [place] [address], [place] [address] Jul, [facility] [address] [id number] [address] [place] [address], [place] [address] Jul, [facility] [address] [id number] [address] [place] [address], [place] [address] Jul, [facility] [address] [id number] [address] [place] [address], [place] [address] Jul, [facility] [address] [id number] [address] [place] [address], [place] [address] Jun, [facility] [address] [id number] [address] [place] [address], [place] [address] Jun, [facility] [address] [id number] [address] [place] [address], [place] [address] Jun, [facility] [address] [id number] [facility] [place] [address] Jun, [facility] [address] [id number] [address] [place] [address], [place] [address] May, [facility] [address] [id number] [address] [place] [address], [place] [phone] May, [facility] [address] [id number] [address] [place] [address], [place] [address] May, [facility] [address] [id number] [address] [place] [address], [place] [address] May, [facility] [address] [id number] [address] [place] [address], [place] [address] May, [facility] [address] [id number] [address] [place] [address], [place] [address] May, [facility] [address] [id number] [address] [place] [address], [place] [address] May, [facility] [address] [id number] [address] [place] [address], [place] [address] May, [facility] [address] [id number] [address] [place] [address], [place] [address] May, [facility] [address] [id number] [address] [place] [address], [place] [address] May, [facility] [address] [id number] [address] [place] [address], [place] [address] May, [facility] [address] [id number] [address] [place] [address], [place] [address] May, [facility] [address] [id number] [address] [place] [address], [place] [address] May, [facility] [address] [id number] [address] [place] [address], [place] [address] Apr, [facility] [address] [id number] [facility] [place] [address] Apr, [facility] [address] [id number] [facility] [place] [address] Apr, [facility] [address] [id number] [facility] [place] [address] Apr, [facility] [address] [id number] [address] [place] [address], [place] [address] Apr, [facility] [address] [id number] [address] [place] [address], [place] [address] Apr, [facility] [address] [id number] [address] [place] [address], [place] [address] Apr, [facility] [address] [id number] [address] [place] [address], [place] [address] Apr, [facility] [address] [id number] [address] [place] [address], [place] [address] Apr, [facility] [address] [id number] [address] [place] [address], [place] [address] Apr, [facility] [address] [id number] [address] [place] [address], [place] [address] Apr, [facility] [address] [id number] [address] [place] [address], [place] [address] Apr, [facility] [address] [id number] [address] [place] [address], [place] [address] Apr, [facility] [address] [id number] [address] [place] [address], [place] [address] Apr, [facility] [address] [id number] [address] [place] [address], [place] [address] March, [facility] [address] [id number] [address] [place] [address], [place] [address] March, [facility] [address] [id number] [address] [place] [address], [place] [address] March, [facility] [address] [id number] [address] [place] [address], [place] [address] March, [facility] [address] [id number] [address] [place] [address], [place] [address] March, [facility] [address] [id number] [address] [place] [address], [place] [address] March, [facility] [address] [id number] [address] [place] [address], [place] [address] March, [facility] [address] [id number] [address] [place] [address], [place] [address] March, [facility] [address] [id number] [address] [place] [address], [place] [address] March, [facility] [address] [id number] [address] [place] [address], [place] [address] March, [facility] [address] [id number] [address] [place] [address], [place] [address] Feb, [facility] [address] [id number] [address] [place] [address], [place] [address] Feb, [facility] [address] [id number] [address] [place] [address], [place] [address] Feb, [facility] [address] [id number] [address] [place] [address], [place] [phone] Feb, [facility] [address] [id number] [address] [place] [address], [place] [address] Feb, [facility] [address] [id number] [address] [place] [address], [place] [phone] Feb, [facility] [address] [id number] [address] [place] [address], [place] [address] Feb, [facility] [address] [id number] [address] [place] [address], [place] [address] Feb, [facility] [address] [id number] [address] [place] [address], [place] [id number] 18 Jan, 2014 [facility] [address] [id number] [facility] [place] [address] Jan, [facility] [address] [id number] [address] [place] [address], [place] [address] Jan, [facility] [address] [id number] [address] [place] [address], [place] [address] Jan, [facility] [address] [id number] [address] [place] [address], [place] [address] Jan, [facility] [address] [id number] [address] [place] [address], [place] [address] Jan, [facility] [address] [id number] [address] [place] [address], [place] [address] Jan, [facility] [address] [id number] [address] [place] [address], [place] [address] Jan, [facility] [address] [id number] [address] [place] [address], [place] [address] Jan, [facility] [address] [id number] [address] [place] [address], [place] [address] Jan, [facility] [address] [id number] [address] [place] [address], [place] [address] Dec, [facility] [address] [id number] [address] [place] [address], [place] [address] Dec, [facility] [address] [id number] [address] [place] [address], [place] [address] Nov, [facility] [address] [id number] [address] [place] [address], [place] [address] Nov, [facility] [address] [id number] [address] [place] [address], [place] [address] Nov, [facility] [address] [id number] [address] [place] [address], [place] [address] Nov, [facility] [address] [id number] [address] [place] [address], [place] [phone] 15 Nov, 2013 [facility] [address] [id number] [address] [place] [address], [place] [address] Nov, [facility] [address] [id number] [address] [place] [address], [place] [address] Nov, [facility] [address] [id number] [address] [place] [address], [place] [address] Nov, [facility] [address] [id number] [address] [place] [address], [place] [address] Oct, [facility] [address] [id number] [address] [place] [address], [place] [address] Oct, [facility] [address] [id number] [address] [place] [address], [place] [address] Oct, [facility] [address] [id number] [address] [place] [address], [place] [phone] Oct, [facility] [address] [id number] [address] [place] [address], [place] [address] Oct, [facility] [address] [id number] [address] [place] [address], [place] [address] Oct, [facility] [address] [id number] [address] [place] [address], [place] [address] Sep, [facility] [address] [id number] [address] [place] [address], [place] [address] Sep, [facility] [address] [id number] [address] [place] [address], [place] [address] Sep, [facility] [address] [id number] [address] [place] [address], [place] [address] Sep, [facility] [address] [id number] [address] [place] [address], [place] [phone] 05 Sep, 2013 [facility] [address] [id number] [address] [place] [address], [place] [address] Aug, [facility] [address] [id number] [address] [place] [address], [place] [address] Aug, [facility] [address] [id number] [address] [place] [address], [place] [address] Aug, [facility] [address] [id number] [address] [place] [address], [place] [address] Aug, [facility] [address] [id number] [address] [place] [address], [place] [address] Aug, [facility] [address] [id number] [address] [place] [address], [place] [address] Aug, [facility] [address] [id number] [address] [place] [address], [place] [address] Jul, [facility] [address] [id number] [address] [place] [address], [place] [address] Jul, [facility] [address] [id number] [address] [place] [address], [place] [address] Jul, [facility] [address] [id number] [address] [place] [address], [place] [address] Jun, [facility] [address] [id number] [address] [place] [address], [place] [address] Jun, [facility] [address] [id number] [address] [place] [address], [place] [address] May, [facility] [address] [id number] [address] [place] [address] May, [facility] [address] [id number] [address] [place] [address], [place] [address] Apr, [facility] [address] [id number] [address] [place] [address], [place] [address] Apr, [facility] [address] [id number] [address] [place] [address], [place] [address] Apr, [facility] [address] [id number] [address] [place] [address], [place] [address] March, [facility] [address] [id number] [address] [place] [address], [place] [address] Feb, [facility] [address] [id number] [address] [place] [address], [place] [address] Feb, [facility] [address] [id number] [address] [place] [address], [place] [address] Jan, [facility] [address] [id number] [address] [place] [address], [place] [address] Jan, [facility] [address] [id number] [address] [place] [address], [place] [address] Jan, [facility] [address] [id number] [address] [place] [address], [place] [address] Jan, [facility] [address] [id number] [address] [place] [address], [place] [address] Jan, [facility] [address] [id number] [address] [place] [address], [place] [address] Dec, [facility] [address] [id number] [address] [place] [address], [place] [address] Dec, [facility] [address] [id number] [address] [place] [address], [place] [address] Dec, [facility] [address] [id number] [address] [place] [address], [place] [address] Dec, [facility] [address] [id number] [address] [place] [address], [place] [address] Dec, [facility] [address] [id number] [address] [place] [address], [place] [address] Dec, [facility] [address] [place] [id number] Nov, [facility] [address] [id number] [address] [place] [address], [place] [address] Nov, [facility] [address] [id number] [address] [place] [address], [place] [address] Nov, [facility] [address] [id number] [address] [place] [address], [place] [address] Nov, [facility] [address] [id number] [address] [place] [address], [place] [address] Nov, [facility] [address] [id number] [address] [place] [address], [place] [address] Oct, [facility] [address] [id number] [address] [place] [address], [place] [address] Oct, [facility] [address] [id number] [address] [place] [address], [place] [address] Oct, [facility] [address] [id number] [address] [place] [address], [place] [address] Oct, [facility] [address] [id number] [address] [place] [address], [place] [address] Oct, [facility] [address] [id number] [address] [place] [address], [place] [address] Oct, [facility] [address] [id number] [address] [place] [address], [place] [address] Oct, [facility] [address] [id number] [address] [place] [address], [place] [phone] Oct, [facility] [address] [id number] [address] [place] [address], [place] [address] Sep, [facility] [address] [id number] [address] [place] [address], [place] [address] Sep, [facility] [address] [id number] [address] [place] [address], [place] [address] Sep, [facility] [address] [id number] [address] [place] [address], [place] [address] Sep, [facility] [address] [id number] [address] [place] [id number] Sep, [facility] [address] [id number] [address] [place] [phone] Sep, [facility] [address] [id number] [address] [place] [phone] Sep, [facility] [address] [id number] [address] [place] [phone] Sep, [facility] [address] [id number] [address] [place] [id number] Sep, [facility] [address] [id number] [address] [place] [id number] Sep, [facility] [address] [id number] [address] [place] [phone] Sep, [facility] [address] [id number] [address] [place] [phone] Sep, [facility] [address] [id number] [address] [place] [id number] Sep, [facility] [address] [id number] [address] [place] [phone] Sep, [facility] [address] [id number] [address] [place] [phone] Sep, [facility] [address] [id number] [address] [place] [id number] Sep, IMMUNIZATIONS No Known Immunizations SOCIAL HISTORY Never Assessed REASON FOR VISIT upload with change PLAN OF CARE VITAL SIGNS MEDICATIONS Medication Instructions Dosage Frequency Start Date End Date Duration S tatus NovoLog 100 UNIT/ML INJECT 45 UNITS SUBC UTANEOUSLY ONCE DAILY PER INSULIN PUMP Active Genaro Contour Test N/A Contour Next 4 times a day test blood sugar 6h 23 Jul, 2016 Active RESULTS No Results PROCEDURES No Known procedures INSTRUCTIONS MEDICATIONS ADMINISTERED No Known Medications MEDICAL (GENERAL) HISTORY Type Description Date Medical History hypertension Medical History type I diabetes Medical History chronic renal insufficiency Surgical History gastric pacemaker 2008 Hospitalization History nausea 2011
--- OUTSIDE RECORDS SUMMARY | 2020-04-17 21:40 | XMS REPORT ---
Author Author Curt PATIÑO Organization [facility] Address [address] [place] [address] Care Team Providers Care Bread Racker Name Role Phone BISMARK PATIÑO Unavailable PROBLEMS Type Condition ICD9-CM Code FEO90-BU Code Onset Dates Condition S tatus SNOMED Code Problem Hypertension, essential I10 Active 24784415 Problem Mood disorder F39 Active 150443 05 Problem Chronic fatigue R53.82 Active 8422 9001 Problem Type 1 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 Active 41215111 Problem Type 1 diabetes mellitus with other diab etic neurological complication E10.49 Active 30380613 Problem Gastroparesis K31.84 Active 630354 006 Problem Type 1 diabetes mellitus with hyperglycemia E10.65 Active [id number] Problem 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 Active [id number] ALLERGIES No Information ENCOUNTERS Encounter Location Date Diagnosis [facility] [address] [facility] [id number] [address] [place] [address] Jul, Type 1 diabetes mellitus wit h hyperglycemia E10.65 [facility] [address] [facility] [id number] [address] [place] [address] Jul, [facility] [address] [facility] [id number] [address] [place] [phone] 18 Jul, 2018 [facility] [address] [facility] [id number] [address] [place] [address] Jul, Type 1 diabetes mellitus wit h other diabetic neurological complication E10.49 [facility] [address] [facility] [id number] [address] [place] [phone] Jul, Type 1 diabetes mellitus wit h other diabetic neurological complication E10.49 and Mood disorder F39 [facility] [address] [facility] [id number] [address] [place] [address] Jun, [facility] [address] [id number] [address] [place] [address] Jun, Type 1 diabetes mellitus wit h other diabetic neurological complication E10.49 and Chronic fatigue R53.82 [facility] [address] [id number] [address] [place] [address] May, Type 1 diabetes mellitus wit h other diabetic neurological complication E10.49 [facility] [address] [id number] [address] [place] [address] May, [facility] [address] [id number] [address] [place] [address] May, [facility] [address] [id number] [address] [place] [phone] Apr, [facility] [address] [facility] [id number] [address] [place] [address] Apr, Type 1 diabetes mellitus wit h other diabetic neurological complication E10.49 [facility] [address] [id number] [address] [place] [address] March, [facility] [address] [id number] [address] [place] [address] Feb, [facility] [address] [facility] [id number] [address] [place] [phone] Feb, Type 1 diabetes mellitus wit h other diabetic neurological complication E10.49 ; Tobacco abuse Z72.0 and Tobacco abuse counseling Z71.6 [facility] [address] [facility] [id number] [address] [place] [address] Jan, Type 1 diabetes mellitus wit h hyperglycemia E10.65 [facility] [address] [id number] [address] [place] [phone] Jan, [facility] [address] [facility] [id number] [address] [place] [address] Dec, Tobacco abuse Z72.0 [facility] [address] [facility] [id number] [address] [place] [address] Dec, Type 1 diabetes mellitus wit h hyperglycemia E10.65 [facility] [address] [facility] [id number] [address] [place] [address] Dec, Type 1 diabetes mellitus wit h hyperglycemia E10.65 ; Tobacco abuse Z72.0 and Tobacco abuse counseling Z71.6 [facility] [address] [facility] [id number] [address] [place] [address] Nov, Type 1 diabetes mellitus wit h hyperglycemia E10.65 [facility] [address] [facility] [id number] [address] [place] [address] Oct, Type 1 diabetes mellitus wit h hyperglycemia E10.65 [facility] [address] [facility] [id number] [address] [place] [address] Oct, Type 1 diabetes mellitus wit h hyperglycemia E10.65 [facility] [address] [facility] [id number] [address] [place] [address] Sep, Type 1 diabetes mellitus wit h hyperglycemia E10.65 [facility] [address] [facility] [id number] [address] [place] [address] Aug, Type 1 diabetes mellitus wit h hyperglycemia E10.65 [facility] [address] [facility] [id number] [address] [place] [address] Aug, [facility] [address] [facility] [id number] [address] [place] [address] Aug, Type 1 diabetes mellitus wit h hyperglycemia E10.65 [facility] [address] [facility] [id number] [address] [place] [address] Aug, Encounter for immunization Z 23 [facility] [address] [facility] [id number] [address] [place] [address] Aug, Type 1 diabetes mellitus wit h hyperglycemia E10.65 [facility] [address] [facility] [id number] [address] [place] [address] Jul, Type 1 diabetes mellitus wit h hyperglycemia E10.65 [facility] [address] [facility] [id number] [address] [place] [address] Jul, Type 1 diabetes mellitus wit h hyperglycemia E10.65 [facility] [address] [id number] [address] [place] [address] May, Type 1 diabetes mellitus wit h hyperglycemia E10.65 [facility] [address] [id number] [address] [place] [phone] May, [facility] [address] [id number] [address] [place] [address] Apr, [facility] [address] [id number] [address] [place] [address] Apr, Type 1 diabetes mellitus wit h hyperglycemia E10.65 [facility] [address] [id number] [address] [place] [address] March, [facility] [address] [id number] [address] [place] [address] March, [facility] [address] [id number] [address] [place] [address] Jan, [facility] [address] [id number] [address] [place] [phone] Jan, [facility] [address] [id number] [address] [place] [address] Jan, Type 1 diabetes mellitus wit diabetic polyneuropathy E10.42 [facility] [address] [id number] [address] [place] [address] Jan, Type 1 diabetes mellitus wit h hyperglycemia E10.65 ; Excessive cerumen in both ear canals H61.23 and Controlled diabetes mellitus type 1 without complications E10.9 [facility] [address] [id number] [address] [place] [address] Dec, [facility] [address] [id number] [address] [place] [address] Dec, [facility] [address] [id number] [address] [place] [phone] Dec, [facility] [address] [id number] [address] [place] [address] Dec, [facility] [address] [id number] [address] [place] [address] Nov, [facility] [address] [id number] [address] [place] [address] Nov, [facility] [address] [id number] [address] [place] [address] Oct, Type 1 diabetes mellitus wit h hyperglycemia E10.65 [facility] [address] [id number] [address] [place] [address] Sep, [facility] [address] [id number] [address] [place] [address] Sep, [facility] [address] [id number] [address] [place] [address] Sep, Controlled diabetes mellitus type 1 without complications E10.9 [facility] [address] [id number] [address] [place] [address] Sep, [facility] [address] [id number] [address] [place] [address] [id number] Aug, Dental caries K02.9 [facility] [address] [id number] [address] [place] [address] Aug, Type 1 diabetes mellitus wit h diabetic polyneuropathy E10.42 [facility] [address] [id number] [address] [place] [address] Aug, [facility] [address] [id number] [address] [place] [address] Aug, [facility] [address] [id number] [address] [place] [address] Aug, [facility] [address] [id number] [address] [place] [address] Jul, Type 1 diabetes mellitus wit h hyperglycemia E10.65 [facility] [address] [id number] [address] [place] [phone] 23 Jul, 2016 Type 1 diabetes mellitus wit h hyperglycemia E10.65 ; Tooth pain K08.8 and Encounter for immunization Z23 [facility] [address] [id number] [address] [place] [address] [id number] 08 Jul, 2016 Dental examination Z01.20 [facility] [address] [id number] [address] [place] [address] 08 Jul, 2016 [facility] [address] [id number] [address] [place] [phone] 07 Jul, 2016 [facility] [address] [id number] [address] [place] [address] Jul, [facility] [address] [id number] [address] [place] [phone] Jun, [facility] [address] [id number] [address] [place] [address] May, [facility] [address] [id number] [address] [place] [phone] Apr, [facility] [address] [id number] [address] [place] [address] Apr, [facility] [address] [id number] [address] [place] [address] Apr, [facility] [address] [id number] [address] [place] [address] March, [facility] [address] [id number] [address] [place] [address] March, [facility] [address] [id number] [address] [place] [phone] Feb, [facility] [address] [id number] [address] [place] [phone] Feb, [facility] [address] [id number] [address] [place] [address] Feb, Type 1 diabetes mellitus wit h hyperglycemia E10.65 [facility] [address] [facility] [id number] [address] [place] [phone] Jan, [facility] [address] [facility] [id number] [address] [place] [phone] Jan, [facility] [address] [facility] [id number] [address] [place] [phone] Jan, [facility] [address] [facility] [id number] [address] [place] [phone] Jan, [facility] [address] [facility] [id number] [address] [place] [phone] Dec, [facility] [address] [facility] [id number] [address] [place] [phone] Nov, [facility] [address] [facility] [id number] [address] [place] [phone] Nov, [facility] [address] [facility] [id number] [address] [place] [phone] Oct, [facility] [address] [facility] [id number] [address] [place] [id number] 04 Oct, 2015 Type 1 diabetes mellitus wit h 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 ; Type 1 diabetes mellitus with hyperglycemia E10.65 ; Gastroparesis K31.84 and Esophageal stricture K22.2 [facility] [address] [facility] [id number] [address] [place] [phone] Oct, [facility] [address] [facility] [id number] [address] [place] [phone] Sep, [facility] [address] [facility] [id number] [address] [place] [phone] 13 Sep, 2015 Type 1 diabetes mellitus wit h other diabetic neurological complication E10.49 [facility] [address] [facility] [id number] [address] [place] [phone] Aug, Encounter for immunization Z 23 [facility] [address] [id number] [address] [place] [phone] Aug, [facility] [address] [id number] [address] [place] [phone] Aug, [facility] [address] [id number] [address] [place] [phone] Jul, [facility] [address] [id number] [address] [place] [phone] Jul, [facility] [address] [id number] [address] [place] [phone] Jun, [facility] [address] [id number] [address] [place] [phone] Jun, [facility] [address] [id number] [address] [place] [phone] Jun, [facility] [address] [id number] [address] [place] [phone] May, [facility] [address] [id number] [address] [place] [phone] May, [facility] [address] [id number] [address] [place] [address] May, Diabetes type 1, controlled 250.01 [facility] [address] [id number] [address] [place] [phone] May, [facility] [address] [id number] [address] [place] [address] May, [facility] [address] [id number] [address] [place] [id number] Apr, Dental examination V72.2 [facility] [address] [id number] [address] [place] [phone] Apr, [facility] [address] [id number] [address] [place] [phone] Apr, [facility] [address] [id number] [address] [place] [phone] Apr, [facility] [address] [id number] [address] [place] [phone] Apr, [facility] [address] [id number] [address] [place] [phone] Apr, [facility] [address] [id number] [address] [place] [address] [id number] Apr, Dental examination V72.2 [facility] [address] [id number] [address] [place] [phone] Apr, [facility] [address] [id number] [address] [place] [address] Apr, [facility] [address] [id number] [address] [place] [phone] March, Diabetes mellitus type 1 250 .01 [facility] [address] [id number] [address] [place] [phone] March, [facility] [address] [id number] [address] [place] [address] Feb, [facility] [address] [id number] [address] [place] [phone] Feb, [facility] [address] [id number] [address] [place] [phone] Jan, [facility] [address] [id number] [address] [place] [phone] Jan, [facility] [address] [id number] [address] [place] [phone] Jan, [facility] [address] [id number] [address] [place] [phone] Jan, [facility] [address] [id number] [address] [place] [phone] Dec, [facility] [address] [id number] [address] [place] [phone] Dec, [facility] [address] [id number] [address] [place] [address], [place] [address] Nov, [facility] [address] [id number] [address] [place] [address], [place] [address] Nov, [facility] [address] [id number] [address] [place] [address], [place] [address] Nov, [facility] [address] [id number] [address] [place] [address], [place] [address] Nov, [facility] [address] [id number] [address] [place] [address], [place] [address] Nov, [facility] [address] [id number] [address] [place] [address], [place] [address] Nov, [facility] [address] [id number] [address] [place] [address], [place] [address] Nov, [facility] [address] [id number] [address] [place] [address], [place] [address] Oct, [facility] [address] [id number] [address] [place] [address], [place] [address] Oct, [facility] [address] [id number] [address] [place] [address], [place] [address] Sep, [facility] [address] [id number] [address] [place] [address], [place] [address] Aug, [facility] [address] [id number] [address] [place] [address], [place] [address] Aug, [facility] [address] [id number] [address] [place] [address], [place] [address] Aug, [facility] [address] [id number] [address] [place] [address], [place] [address] Aug, [facility] [address] [id number] [address] [place] [address], [place] [address] Aug, [facility] [address] [id number] [address] [place] [address], [place] [address] Aug, [facility] [address] [id number] [address] [place] [address], [place] [address] Aug, [facility] [address] [id number] [address] [place] [address], [place] [address] Aug, [facility] [address] [id number] [address] [place] [address], [place] [address] Aug, [facility] [address] [id number] [address] [place] [address], [place] [address] Aug, [facility] [address] [id number] [address] [place] [address], [place] [address] Aug, [facility] [address] [id number] [address] [place] [address], [place] [address] Aug, [facility] [address] [id number] [address] [place] [address], [place] [address] Aug, [facility] [address] [id number] [address] [place] [address], [place] [address] Aug, [facility] [address] [id number] [address] [place] [address], [place] [address] Jul, [facility] [address] [id number] [address] [place] [address], [place] [address] Jul, [facility] [address] [id number] [address] [place] [address], [place] [address] Jul, [facility] [address] [id number] [address] [place] [address], [place] [address] Jul, [facility] [address] [id number] [address] [place] [address], [place] [address] Jun, [facility] [address] [id number] [address] [place] [address], [place] [address] Jun, [facility] [address] [id number] [address] [place] [address], [place] [address] Jun, [facility] [address] [id number] [facility] [address] Jun, [facility] [address] [id number] [address] [place] [address], [place] [address] May, [facility] [address] [id number] [address] [place] [address], [place] [address] May, [facility] [address] [id number] [address] [place] [address], [place] [address] May, [facility] [address] [id number] [address] [place] [address], [place] [address] May, [facility] [address] [id number] [address] [place] [address], [place] [address] May, [facility] [address] [id number] [address] [place] [address], [place] [address] May, [facility] [address] [id number] [address] [place] [address], [place] [address] May, [facility] [address] [id number] [address] [place] [address], [place] [address] May, [facility] [address] [id number] [address] [place] [address], [place] [address] May, [facility] [address] [id number] [address] [place] [address], [place] [address] May, [facility] [address] [id number] [address] [place] [address], [place] [address] May, [facility] [address] [id number] [address] [place] [address], [place] [address] May, [facility] [address] [id number] [address] [place] [address], [place] [address] May, [facility] [address] [id number] [address] [place] [address], [place] [address] Apr, [facility] [address] [id number] [facility] [address] Apr, [facility] [address] [id number] [facility] [address] Apr, [facility] [address] [id number] [facility] [address] Apr, [facility] [address] [id number] [address] [place] [address], [place] [address] Apr, [facility] [address] [id number] [address] [place] [address], [place] [address] Apr, [facility] [address] [id number] [address] [place] [address], [place] [address] Apr, [facility] [address] [id number] [address] [place] [address], [place] [address] Apr, [facility] [address] [id number] [address] [place] [address], [place] [address] Apr, [facility] [address] [id number] [address] [place] [address], [place] [address] Apr, [facility] [address] [id number] [address] [place] [address], [place] [address] Apr, [facility] [address] [id number] [address] [place] [address], [place] [address] Apr, [facility] [address] [id number] [address] [place] [address], [place] [address] Apr, [facility] [address] [id number] [address] [place] [address], [place] [address] Apr, [facility] [address] [id number] [address] [place] [address], [place] [address] March, [facility] [address] [id number] [address] [place] [address], [place] [address] March, [facility] [address] [id number] [address] [place] [address], [place] [address] March, [facility] [address] [id number] [address] [place] [address], [place] [address] March, [facility] [address] [id number] [address] [place] [address], [place] [address] March, [facility] [address] [id number] [address] [place] [address], [place] [address] March, [facility] [address] [id number] [address] [place] [address], [place] [address] March, [facility] [address] [id number] [address] [place] [address], [place] [address] March, [facility] [address] [id number] [address] [place] [address], [place] [address] March, [facility] [address] [id number] [address] [place] [address], [place] [address] March, [facility] [address] [id number] [address] [place] [address], [place] [address] Feb, [facility] [address] [id number] [address] [place] [address], [place] [address] Feb, [facility] [address] [id number] [address] [place] [address], [place] [address] Feb, [facility] [address] [id number] [address] [place] [address], [place] [address] Feb, [facility] [address] [id number] [address] [place] [address], [place] [address] Feb, [facility] [address] [id number] [address] [place] [address], [place] [address] Feb, [facility] [address] [id number] [address] [place] [address], [place] [address] Feb, [facility] [address] [id number] [address] [place] [address], [place] [address] Feb, [facility] [address] [id number] [address] [place] [address], [place] [address] 18 Jan, 2014 [facility] [address] [id number] [facility] [address] Jan, [facility] [address] [id number] [address] [place] [address], [place] [address] Jan, [facility] [address] [id number] [address] [place] [address], [place] [address] Jan, [facility] [address] [id number] [address] [place] [address], [place] [address] Jan, [facility] [address] [id number] [address] [place] [address], [place] [address] Jan, [facility] [address] [id number] [address] [place] [address], [place] [address] Jan, [facility] [address] [id number] [address] [place] [address], [place] [address] Jan, [facility] [address] [id number] [address] [place] [address], [place] [address] Jan, [facility] [address] [id number] [address] [place] [address], [place] [address] Jan, [facility] [address] [id number] [address] [place] [address], [place] [address] Dec, [facility] [address] [id number] [address] [place] [address], [place] [address] Dec, [facility] [address] [id number] [address] [place] [address], [place] [address] Nov, [facility] [address] [id number] [address] [place] [address], [place] [address] Nov, [facility] [address] [id number] [address] [place] [address], [place] [address] Nov, [facility] [address] [id number] [address] [place] [address], [place] [address] Nov, [facility] [address] [id number] [address] [place] [address], [place] [address] 15 Nov, 2013 [facility] [address] [id number] [address] [place] [address], [place] [address] Nov, [facility] [address] [id number] [address] [place] [address], [place] [address] Nov, [facility] [address] [id number] [address] [place] [address], [place] [address] Nov, [facility] [address] [id number] [address] [place] [address], [place] [address] Oct, [facility] [address] [id number] [address] [place] [address], [place] [address] Oct, [facility] [address] [id number] [address] [place] [address], [place] [address] Oct, [facility] [address] [id number] [address] [place] [address], [place] [address] Oct, [facility] [address] [id number] [address] [place] [address], [place] [address] Oct, [facility] [address] [id number] [address] [place] [address], [place] [address] Oct, [facility] [address] [id number] [address] [place] [address], [place] [address] Sep, [facility] [address] [id number] [address] [place] [address], [place] [address] Sep, [facility] [address] [id number] [address] [place] [address], [place] [address] Sep, [facility] [address] [id number] [address] [place] [address], [place] [address] Sep, [facility] [address] [id number] [address] [place] [address], [place] [address] 05 Sep, 2013 [facility] [address] [id number] [address] [place] [address], [place] [address] Aug, [facility] [address] [id number] [address] [place] [address], [place] [address] Aug, [facility] [address] [id number] [address] [place] [address], [place] [address] Aug, [facility] [address] [id number] [address] [place] [address], [place] [address] Aug, [facility] [address] [id number] [address] [place] [address], [place] [address] Aug, [facility] [address] [id number] [address] [place] [address], [place] [address] Aug, [facility] [address] [id number] [address] [place] [address], [place] [address] Jul, [facility] [address] [id number] [address] [place] [address], [place] [address] Jul, [facility] [address] [id number] [address] [place] [address], [place] [address] Jul, [facility] [address] [id number] [address] [place] [address], [place] [address] Jun, [facility] [address] [id number] [address] [place] [address], [place] [address] Jun, [facility] [address] [id number] [address] [place] [address], [place] [address] May, [facility] [address] [id number] [address] [place] [address] May, [facility] [address] [id number] [address] [place] [address], [place] [address] Apr, [facility] [address] [id number] [address] [place] [address], [place] [address] Apr, [facility] [address] [id number] [address] [place] [address], [place] [address] Apr, [facility] [address] [id number] [address] [place] [address], [place] [address] March, [facility] [address] [id number] [address] [place] [address], [place] [address] Feb, [facility] [address] [id number] [address] [place] [address], [place] [address] Feb, [facility] [address] [id number] [address] [place] [address], [place] [address] Jan, [facility] [address] [id number] [address] [place] [address], [place] [address] Jan, [facility] [address] [id number] [address] [place] [address], [place] [address] Jan, [facility] [address] [id number] [address] [place] [address], [place] [address] Jan, [facility] [address] [id number] [address] [place] [address], [place] [address] Jan, [facility] [address] [id number] [address] [place] [address], [place] [address] Dec, [facility] [address] [id number] [address] [place] [address], [place] [address] Dec, [facility] [address] [id number] [address] [place] [address], [place] [address] Dec, [facility] [address] [id number] [address] [place] [address], [place] [address] Dec, [facility] [address] [id number] [address] [place] [address], [place] [address] Dec, [facility] [address] [id number] [address] [place] [address], [place] [address] Dec, [facility] [address] [place] [id number] Nov, [facility] [address] [id number] [address] [place] [address], [place] [address] Nov, [facility] [address] [id number] [address] [place] [address], [place] [address] Nov, [facility] [address] [id number] [address] [place] [address], [place] [address] Nov, [facility] [address] [id number] [address] [place] [address], [place] [address] Nov, [facility] [address] [id number] [address] [place] [address], [place] [address] Oct, [facility] [address] [id number] [address] [place] [address], [place] [address] Oct, [facility] [address] [id number] [address] [place] [address], [place] [address] Oct, [facility] [address] [id number] [address] [place] [address], [place] [address] Oct, [facility] [address] [id number] [address] [place] [address], [place] [address] Oct, [facility] [address] [id number] [address] [place] [address], [place] [address] Oct, [facility] [address] [id number] [address] [place] [address], [place] [address] Oct, [facility] [address] [id number] [address] [place] [address], [place] [address] Oct, [facility] [address] [id number] [address] [place] [address], [place] [address] Sep, [facility] [address] [id number] [address] [place] [address], [place] [address] Sep, [facility] [address] [id number] [address] [place] [address], [place] [address] Sep, [facility] [address] [id number] [address] [place] [address], [place] [address] Sep, [facility] [address] [id number] [address] [place] [address] Sep, [facility] [address] [id number] [address] [place] [address] Sep, [facility] [address] [id number] [address] [place] [address] Sep, [facility] [address] [id number] [address] [place] [address] Sep, [facility] [address] [id number] [address] [place] [id number] Sep, [facility] [address] [id number] [address] [place] [address] Sep, [facility] [address] [id number] [address] [place] [address] Sep, [facility] [address] [id number] [address] [place] [address] Sep, [facility] [address] [id number] [address] [place] [address] Sep, [facility] [address] [id number] [address] [place] [address] Sep, [facility] [address] [id number] [address] [place] [address] Sep, [facility] [address] [id number] [address] [place] [address] Sep, IMMUNIZATIONS No Known Immunizations SOCIAL HISTORY [...]
--- OUTSIDE RECORDS SUMMARY | 2020-04-17 21:41 | XMS REPORT ---
Author Author Curt PATIÑO Organization [facility] Address [address] [place] [address] Care Team Providers Care Explosive Ordnance Technician Name Role Phone BISMARK PATIÑO Unavailable PROBLEMS Type Condition ICD9-CM Code [id number] Code Onset Dates Condition S tatus SNOMED Code Problem Hypertension, essential I10 Active 89270291 Problem Mood disorder F39 Active 228582 05 Problem Chronic fatigue R53.82 Active 8422 9001 Problem Type 1 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 Active 33144703 Problem Type 1 diabetes mellitus with other diab etic neurological complication E10.49 Active 62566430 Problem Gastroparesis K31.84 Active 582844 006 Problem Type 1 diabetes mellitus with hyperglycemia E10.65 Active [id number] Problem 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 Active 52981186 ALLERGIES Substance Reaction Event Type Date Status Cipro Unknown Drug Allergy Jun, Active Sulfa(sulfonamide Antibiotics) Unknown Non Drug Allergy Jun Active ENCOUNTERS Encounter Location Date Diagnosis [facility] [address] [id number] [address] [place] [address] 21 Jul, 2018 Type 1 diabetes mellitus wit h hyperglycemia E10.65 [facility] [address] [id number] [address] [place] [address] 19 Jul, 2018 [facility] [address] [id number] [address] [place] [address] 18 Jul, 2018 [facility] [address] [id number] [address] [place] [address] 17 Jul, 2018 Type 1 diabetes mellitus wit h other diabetic neurological complication E10.49 [facility] [address] [facility] [id number] [address] [place] [address] 17 Jul, 2018 Type 1 diabetes mellitus wit h other diabetic neurological complication E10.49 and Mood disorder F39 [facility] [address] [id number] [address] [place] [address] Jun, [facility] [address] [id number] [address] [place] [address] Jun, Type 1 diabetes mellitus wit h other diabetic neurological complication E10.49 and Chronic fatigue R53.82 [facility] [address] [id number] [address] [place] [address] May, Type 1 diabetes mellitus wit h other diabetic neurological complication E10.49 [facility] [address] [id number] [address] [place] [address] May, [facility] [address] [id number] [address] [place] [address] May, [facility] [address] [id number] [address] [place] [address] Apr, [facility] [address] [id number] [address] [place] [address] Apr, Type 1 diabetes mellitus wit h other diabetic neurological complication E10.49 [facility] [address] [id number] [address] [place] [address] March, [facility] [address] [id number] [address] [place] [address] Feb, [facility] [address] [id number] [address] [place] [address] Feb, Type 1 diabetes mellitus wit h other diabetic neurological complication E10.49 ; Tobacco abuse Z72.0 and Tobacco abuse counseling Z71.6 [facility] [address] [id number] [address] [place] [address] Jan, Type 1 diabetes mellitus wit h hyperglycemia E10.65 [facility] [address] [id number] [address] [place] [address] Jan, [facility] [address] [id number] [address] [place] [address] 21 Feb, 2018 Tobacco abuse Z72.0 [facility] [address] [facility] [id number] [address] [place] [address] Dec, Type 1 diabetes mellitus wit h hyperglycemia E10.65 [facility] [address] [facility] [id number] [address] [place] [address] 16 Dec, 2017 Type 1 diabetes mellitus wit h hyperglycemia E10.65 ; Tobacco abuse Z72.0 and Tobacco abuse counseling Z71.6 [facility] [address] [facility] [id number] [address] [place] [address] Nov, Type 1 diabetes mellitus wit h hyperglycemia E10.65 [facility] [address] [facility] [id number] [address] [place] [address] Oct, Type 1 diabetes mellitus wit h hyperglycemia E10.65 [facility] [id number] [address] Oct, Type 1 diabetes mellitus wit h hyperglycemia E10.65 [facility] [address] [id number] [address] [place] [address] Sep, Type 1 diabetes mellitus wit h hyperglycemia E10.65 [facility] [address] [id number] [address] [place] [address] Aug, Type 1 diabetes mellitus wit h hyperglycemia E10.65 [facility] [address] [id number] [address] [place] [address] Aug, [facility] [address] [id number] [address] [place] [address] Aug, Type 1 diabetes mellitus wit h hyperglycemia E10.65 [facility] [address] [facility] [id number] [address] [place] [address] Aug, Encounter for immunization Z 23 [facility] [address] [facility] [id number] [address] [place] [address] Aug, Type 1 diabetes mellitus wit h hyperglycemia E10.65 [facility] [address] [facility] [id number] [address] [place] [address] Jul, Type 1 diabetes mellitus wit h hyperglycemia E10.65 [facility] [address] [id number] [address] [place] [address] Jul, Type 1 diabetes mellitus wit h hyperglycemia E10.65 [facility] [address] [id number] [address] [place] [address] May, Type 1 diabetes mellitus wit h hyperglycemia E10.65 [facility] [address] [id number] [address] [place] [address] May, [facility] [address] [id number] [address] [place] [address] Apr, [facility] [address] [id number] [address] [place] [address] Apr, Type 1 diabetes mellitus wit h hyperglycemia E10.65 [facility] [address] [id number] [address] [place] [address] March, [facility] [address] [id number] [address] [place] [address] March, [facility] [address] [id number] [address] [place] [address] Jan, [facility] [address] [id number] [address] [place] [address] Jan, [facility] [address] [id number] [address] [place] [address] Jan, Type 1 diabetes mellitus wit h diabetic polyneuropathy E10.42 [facility] [address] [id number] [address] [place] [address] Jan, Type 1 diabetes mellitus wit h hyperglycemia E10.65 ; Excessive cerumen in both ear canals H61.23 and Controlled diabetes mellitus type 1 without complications E10.9 [facility] [address] [id number] [address] [place] [address] Dec, [facility] [address] [facility] [id number] [address] [place] [address] Dec, [facility] [address] [id number] [address] [place] [address] Dec, [facility] [address] [id number] [address] [place] [address] Dec, [facility] [address] [id number] [address] [place] [address] Nov, [facility] [address] [id number] [address] [place] [address] Nov, [facility] [address] [id number] [address] [place] [address] Oct, Type 1 diabetes mellitus wit h hyperglycemia E10.65 [facility] [address] [id number] [address] [place] [address] Sep, [facility] [address] [id number] [address] [place] [address] Sep, [facility] [address] [id number] [address] [place] [address] Sep, Controlled diabetes mellitus type 1 without complications E10.9 [facility] [address] [id number] [address] [place] [address] Sep, [facility] [address] [id number] [address] [place] [id number] Aug, Dental caries K02.9 [facility] [address] [id number] [address] [place] [address] Aug, Type 1 diabetes mellitus wit h diabetic polyneuropathy E10.42 [facility] [address] [id number] [address] [place] [address] Aug, [facility] [address] [facility] [id number] [address] [place] [address] Aug, [facility] [address] [facility] [id number] [address] [place] [address] Aug, [facility] [address] [id number] [address] [place] [address] Jul, Type 1 diabetes mellitus wit h hyperglycemia E10.65 [facility] [address] [id number] [address] [place] [address] Jul, Type 1 diabetes mellitus wit h hyperglycemia E10.65 ; Tooth pain K08.8 and Encounter for immunization Z23 [facility] [address] [id number] [address] [place] [address] [id number] Jul, 2016 Dental examination Z01.20 [facility] [address] [id number] [address] [place] [address] Jul, [facility] [address] [id number] [address] [place] [address] Jul, [facility] [address] [id number] [address] [place] [address] Jul, [facility] [address] [id number] [address] [place] [address] Jun, [facility] [address] [id number] [address] [place] [address] May, [facility] [address] [id number] [address] [place] [address] Apr, [facility] [address] [id number] [address] [place] [address] Apr, [facility] [address] [id number] [address] [place] [address] Apr, [facility] [address] [id number] [address] [place] [address] March, [facility] [address] [id number] [address] [place] [address] March, [facility] [address] [id number] [address] [place] [address] Feb, [facility] [address] [id number] [address] [place] [address] Feb, [facility] [address] [facility] [id number] [address] [place] [address] Feb, Type 1 diabetes mellitus wit h hyperglycemia E10.65 [facility] [address] [id number] [address] [place] [address] Jan, [facility] [address] [id number] [address] [place] [address] Jan, [facility] [address] [id number] [address] [place] [address] Jan, [facility] [address] [id number] [address] [place] [address] Jan, [facility] [address] [facility] [id number] [address] [place] [address] Dec, [facility] [address] [facility] [id number] [address] [place] [address] Nov, [facility] [address] [id number] [address] [place] [address] Nov, [facility] [address] [facility] [id number] [address] [place] [address] Oct, [facility] [address] [facility] [id number] [address] [place] [address] 04 Oct, 2015 Type 1 diabetes mellitus wit h 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 ; Type 1 diabetes mellitus with hyperglycemia E10.65 ; Gastroparesis K31.84 and Esophageal stricture K22.2 [facility] [address] [facility] [id number] [address] [place] [address] Oct, [facility] [address] [facility] [id number] [address] [place] [address] Sep, [facility] [address] [facility] [id number] [address] [place] [address] 13 Sep, 2015 Type 1 diabetes mellitus wit h other diabetic neurological complication E10.49 [facility] [address] [id number] [address] [place] [address] Aug, Encounter for immunization Z 23 [facility] [address] [id number] [address] [place] [address] Aug, [facility] [address] [id number] [address] [place] [address] Aug, [facility] [address] [id number] [address] [place] [address] Jul, [facility] [address] [id number] [address] [place] [address] Jul, [facility] [address] [id number] [address] [place] [address] Jun, [facility] [address] [id number] [address] [place] [address] Jun, [facility] [address] [id number] [address] [place] [address] Jun, [facility] [address] [id number] [address] [place] [address] May, [facility] [address] [id number] [address] [place] [address] May, [facility] [address] [id number] [address] [place] [address] May, Diabetes type 1, controlled 250.01 [facility] [address] [id number] [address] [place] [address] May, [facility] [address] [id number] [address] [place] [address] May, [facility] [address] [id number] [address] [place] [id number] Apr, Dental examination V72.2 [facility] [address] [id number] [address] [place] [address] Apr, [facility] [address] [id number] [address] [place] [address] Apr, [facility] [address] [id number] [address] [place] [address] Apr, [facility] [address] [id number] [address] [place] [address] Apr, [facility] [address] [id number] [address] [place] [address] Apr, [facility] [address] [id number] [address] [place] [id number] Apr, Dental examination V72.2 [facility] [address] [id number] [address] [place] [address] Apr, [facility] [address] [id number] [address] [place] [address] Apr, [facility] [address] [id number] [address] [place] [address] March, Diabetes mellitus type 1 250 .01 [facility] [address] [id number] [address] [place] [address] March, [facility] [address] [id number] [address] [place] [address] Feb, [facility] [address] [id number] [address] [place] [address] Feb, [facility] [address] [id number] [address] [place] [address] Jan, [facility] [address] [id number] [address] [place] [address] Jan, [facility] [address] [id number] [address] [place] [address] Jan, [facility] [address] [id number] [address] [place] [address] Jan, [facility] [address] [id number] [address] [place] [address] Dec, [facility] [address] [id number] [address] [place] [address], [place] [address] Dec, [facility] [address] [id number] [address] [place] [address], [place] [address] Nov, [facility] [address] [id number] [address] [place] [address], [place] [address] Nov, [facility] [address] [id number] [address] [place] [address], [place] [address] Nov, [facility] [address] [id number] [address] [place] [address], [place] [address] Nov, [facility] [address] [id number] [address] [place] [address], [place] [address] Nov, [facility] [address] [id number] [address] [place] [address], [place] [address] Nov, [facility] [address] [id number] [address] [place] [address], [place] [address] Nov, [facility] [address] [id number] [address] [place] [address] Oct, [facility] [address] [id number] [address] [place] [address], [place] [address] Oct, [facility] [address] [id number] [address] [place] [address], [place] [address] Sep, [facility] [address] [id number] [address] [place] [address] Aug, [facility] [address] [id number] [address] [place] [address], [place] [address] Aug, [facility] [address] [id number] [address] [place] [address], [place] [address] Aug, [facility] [address] [id number] [address] [place] [address], [place] [address] Aug, [facility] [address] [id number] [address] [place] [address], [place] [address] Aug, [facility] [address] [id number] [address] [place] [address], [place] [address] Aug, [facility] [address] [id number] [address] [place] [address], [place] [address] Aug, [facility] [address] [id number] [address] [place] [address], [place] [address] Aug, [facility] [address] [id number] [address] [place] [address], [place] [address] Aug, [facility] [address] [id number] [address] [place] [address], [place] [address] Aug, [facility] [address] [id number] [address] [place] [address], [place] [address] Aug, [facility] [address] [id number] [address] [place] [address], [place] [address] Aug, [facility] [address] [id number] [address] [place] [address], [place] [address] Aug, [facility] [address] [id number] [address] [place] [address], [place] [address] Aug, [facility] [address] [id number] [address] [place] [address], [place] [address] Jul, [facility] [address] [id number] [address] [place] [address], [place] [address] Jul, [facility] [address] [id number] [address] [place] [address], [place] [address] Jul, [facility] [address] [id number] [address] [place] [address], [place] [address] Jul, [facility] [address] [id number] [address] [place] [address], [place] [address] Jun, [facility] [address] [id number] [address] [place] [address], [place] [address] Jun, [facility] [address] [id number] [facility] [place] [address] Jun, [facility] [address] [id number] [facility] [place] [address] Jun, [facility] [address] [id number] [facility] [place] [address] May, [facility] [address] [id number] [address] [place] [address], [place] [address] May, [facility] [address] [id number] [facility] [place] [address] May, [facility] [address] [id number] [address] [place] [address], [place] [address] May, [facility] [address] [id number] [address] [place] [address], [place] [address] May, [facility] [address] [id number] [address] [place] [address], [place] [address] May, [facility] [address] [id number] [address] [place] [address], [place] [address] May, [facility] [address] [id number] [address] [place] [address], [place] [address] May, [facility] [address] [id number] [address] [place] [address], [place] [address] May, [facility] [address] [id number] [address] [place] [address], [place] [address] May, [facility] [address] [id number] [address] [place] [address], [place] [address] May, [facility] [address] [id number] [address] [place] [address], [place] [address] May, [facility] [address] [id number] [address] [place] [address], [place] [address] May, [facility] [address] [id number] [facility] [place] [address] Apr, [facility] [address] [id number] [facility] [place] [address] Apr, [facility] [address] [id number] [facility] [place] [address] Apr, [facility] [address] [id number] [address] [place] [address], [place] [address] Apr, [facility] [address] [id number] [address] [place] [address], [place] [address] Apr, [facility] [address] [id number] [address] [place] [address], [place] [address] Apr, [facility] [address] [id number] [address] [place] [address], [place] [address] Apr, [facility] [address] [id number] [address] [place] [address], [place] [address] Apr, [facility] [address] [id number] [address] [place] [address], [place] [address] Apr, [facility] [address] [id number] [address] [place] [address], [place] [address] Apr, [facility] [address] [id number] [address] [place] [address], [place] [address] Apr, [facility] [address] [id number] [address] [place] [address], [place] [address] Apr, [facility] [address] [id number] 10 [place] [address], [place] [address] Apr, [facility] [address] [id number] [address] [place] [address], [place] [address] Apr, [facility] [address] [id number] [address] [place] [address], [place] [address] March, [facility] [address] [id number] [address] [place] [address], [place] [address] March, [facility] [address] [id number] [address] [place] [address], [place] [address] March, [facility] [address] [id number] [address] [place] [address], [place] [address] March, [facility] [address] [id number] [address] [place] [address], [place] [address] March, [facility] [address] [id number] [address] [place] [address], [place] [address] March, [facility] [address] [id number] [address] [place] [address], [place] [address] March, [facility] [address] [id number] [address] [place] [address], [place] [address] March, [facility] [address] [id number] [address] [place] [address], [place] [address] March, [facility] [address] [id number] [address] [place] [address], [place] [address] March, [facility] [address] [id number] [address] [place] [address], [place] [address] Feb, [facility] [address] [id number] [address] [place] [address], [place] [address] Feb, [facility] [address] [id number] [address] [place] [address], [place] [address] Feb, [facility] [address] [id number] [address] [place] [address], [place] [address] Feb, [facility] [address] [id number] [address] [place] [address], [place] [address] Feb, [facility] [address] [id number] [address] [place] [address], [place] [address] Feb, [facility] [address] [id number] [address] [place] [address], [place] [address] Feb, [facility] [address] [id number] [address] [place] [address], [place] [address] Feb, [facility] [address] [id number] [facility] [place] [address] 18 Jan, 2014 [facility] [address] [id number] [address] [place] [address], [place] [address] Jan, [facility] [address] [id number] [address] [place] [address], [place] [address] Jan, [facility] [address] [id number] [address] [place] [address], [place] [address] Jan, [facility] [address] [id number] [address] [place] [address], [place] [address] Jan, [facility] [address] [id number] [address] [place] [address], [place] [address] Jan, [facility] [address] [id number] [address] [place] [address], [place] [address] Jan, [facility] [address] [id number] [address] [place] [address], [place] [address] Jan, [facility] [address] [id number] [address] [place] [address], [place] [address] Jan, [facility] [address] [id number] [address] [place] [address], [place] [address] Jan, [facility] [address] [id number] [address] [place] [address], [place] [address] Dec, [facility] [address] [id number] [address] [place] [address], [place] [address] Dec, [facility] [address] [id number] [address] [place] [address], [place] [address] Nov, [facility] [address] [id number] [address] [place] [address], [place] [address] Nov, [facility] [address] [id number] [address] [place] [address], [place] [address] Nov, [facility] [address] [id number] [address] [place] [address], [place] [address] 16 Nov, 2013 [facility] [address] [id number] [address] [place] [address], [place] [address] Nov, [facility] [address] [id number] [address] [place] [address], [place] [address] 15 Nov, 2013 [facility] [address] [id number] [address] [place] [address], [place] [address] Nov, [facility] [address] [id number] [address] [place] [address], [place] [address] Nov, [facility] [address] [id number] [address] [place] [address], [place] [address] Oct, [facility] [address] [id number] [address] [place] [address], [place] [address] Oct, [facility] [address] [id number] [address] [place] [address], [place] [address] Oct, [facility] [address] [id number] [address] [place] [address], [place] [address] Oct, [facility] [address] [id number] [address] [place] [address], [place] [address] Oct, [facility] [address] [id number] [address] [place] [address], [place] [address] Oct, [facility] [address] [id number] [address] [place] [address], [place] [address] Sep, [facility] [address] [id number] [address] [place] [address], [place] [address] Sep, [facility] [address] [id number] [address] [place] [address], [place] [address] Sep, [facility] [address] [id number] [address] [place] [address], [place] [address] Sep, [facility] [address] [id number] [address] [place] [address], [place] [address] Sep, [facility] [address] [id number] [address] [place] [address], [place] [address] Aug, [facility] [address] [id number] [address] [place] [address], [place] [address] Aug, [facility] [address] [id number] [address] [place] [address], [place] [address] Aug, [facility] [address] [id number] [address] [place] [address], [place] [address] Aug, [facility] [address] [id number] [address] [place] [address], [place] [address] Aug, [facility] [address] [id number] [address] [place] [address], [place] [address] Aug, [facility] [address] [id number] [address] [place] [address], [place] [address] Jul, [facility] [address] [id number] [address] [place] [address], [place] [address] Jul, [facility] [address] [id number] [address] [place] [address], [place] [address] Jul, [facility] [address] [id number] [address] [place] [address], [place] [address] Jun, [facility] [address] [id number] [address] [place] [address], [place] [address] Jun, [facility] [address] [id number] [address] [place] [address], [place] [address] May, [facility] [address] [id number] [address] [place] [address], [place] [address] May, [facility] [address] [id number] [address] [place] [address], [place] [address] Apr, [facility] [address] [id number] [address] [place] [address], [place] [address] Apr, [facility] [address] [id number] [address] [place] [address] [place] [address] 06 Apr, 2013 [facility] [address] [id number] [address] [place] [address], [place] [address] March, [facility] [address] [id number] [address] [place] [address], [place] [address] Feb, [facility] [address] [id number] [address] [place] [address], [place] [address] Feb, [facility] [address] [id number] [address] [place] [address], [place] [address] Jan, [facility] [address] [id number] [address] [place] [address], [place] [address] Jan, [facility] [address] [id number] [address] [place] [address], [place] [address] Jan, [facility] [address] [id number] [address] [place] [address], [place] [address] Jan, [facility] [address] [id number] [address] [place] [address], [place] [address] Jan, [facility] [address] [id number] [address] [place] [address], [place] [address] Dec, [facility] [address] [id number] [address] [place] [address], [place] [address] Dec, [facility] [address] [id number] [address] [place] [address], [place] [address] Dec, [facility] [address] [id number] [address] [place] [address], [place] [address] Dec, [facility] [address] [id number] [address] [place] [address], [place] [address] 05 Dec, 2012 [facility] [address] [id number] [address] [place] [address], [place] [address] 05 Dec, 2012 [facility] [address] [place] [id number] Nov, [facility] [address] [id number] [address] [place] [address], [place] [address] Nov, [facility] [address] [id number] [address] [place] [address], [place] [address] Nov, [facility] [address] [id number] [address] [place] [address], [place] [address] Nov, [facility] [address] [id number] [address] [place] [address], [place] [address] Nov, [facility] [address] [id number] [address] [place] [address], [place] [address] Oct, [facility] [address] [id number] [address] [place] [address], [place] [address] Oct, [facility] [address] [id number] [address] [place] [address], [place] [address] Oct, [facility] [address] [id number] [address] [place] [address], [place] [address] Oct, [facility] [address] [id number] [address] [place] [address], [place] [address] Oct, [facility] [address] [id number] [address] [place] [address], [place] [address] Oct, [facility] [address] [id number] [address] [place] [address], [place] [address] Oct, [facility] [address] [id number] [address] [place] [address], [place] [address] Oct, [facility] [address] [id number] [address] [place] [address], [place] [address] Sep, [facility] [address] [id number] [address] [place] [address], [place] [address] Sep, [facility] [address] [id number] [address] [place] [address], [place] [address] Sep, [facility] [address] [id number] [address] [place] [address], [place] [address] Sep, [facility] [address] [id number] [address] [place] [address] Sep, [facility] [address] [id number] [address] [place] [address] Sep, [facility] [address] [id number] [address] [place] [address] Sep, [facility] [address] [id number] [address] [place] [address] Sep, [facility] [address] [id number] [address] [place] [address] Sep, [facility] [address] [id number] [address] [place] [address] Sep, [facility] [address] [id number] [address] [place] [address] Sep, [facility] [address] [id number] [address] [place] [id number] Sep, [facility] [address] [id number] [address] [place] [id number] Sep, [facility] [address] [id number] [address] [place] [address] Sep, [facility] [address] [id number] [address] [place] [id number] Sep, [facility] [address] [id number] [address] [place] [phone] Sep, IMMUNIZATIONS No Known Immunizations SOCIAL HISTORY Never Assessed REASON FOR VISIT Diabetes- AB M/A PLAN OF CARE Activity Details Pending Test A1C (IN HOUSE) VITAL SIGNS Height 68 in 2018-07-14 Weight 150.2 lbs 2018-07-14 Temperature 97.7 degrees Fahrenheit 2018-07-14 Heart Rate 80 bpm 2018-07-14 Respiratory Rate 16 2018-07-14 BMI 22.84 kg/m2 2018-07-14 Blood pressure systolic 132 mmHg 2018-07-14 Blood pressure diastolic 80 mmHg 2018-07-14 MEDICATIONS Medication Instructions Dosage Frequency Start Date End Date Duration S tatus Glucagon Emergency 1 MG as directed May, 1 dose Active Genaro Contour Test N/A test blood sugar 6h Jul, Active Viagra 100 mg Orally Once a day 1 tablet as needed 24h Feb, Active Enalapril Maleate 10 mg 1 tablet 24h Active Chantix 1 MG Orally Twice a day 1 tablet 12h Feb, 20 Oc , 2017 30 day(s) Active Diazepam 10 mg Orally 3 times a day 1 tablet 8h 28 days Active NovoLog 100 UNIT/ML INJECT 45 UNITS SUBC UTANEOUSLY ONCE DAILY PER INSULIN PUMP Active RESULTS No Results PROCEDURES Procedure Date Ordered Result Body Site [facility] VISIT ESTABLISHED PATIENT Jul 14, 2018 GLYCATED HEMOGLOBIN TEST Jul 14, 2018 INSTRUCTIONS MEDICATIONS ADMINISTERED No Known Medications MEDICAL (GENERAL) HISTORY Type Description Date Medical History hypertension Medical History type I diabetes Medical History chronic renal insufficiency Surgical History gastric pacemaker 2008 Hospitalization History nausea 2011
--- OUTSIDE RECORDS SUMMARY | 2020-04-17 21:41 | XMS REPORT ---
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 Name Role Phone BISMARK PATIÑO Unavailable PROBLEMS Type Condition ICD9-CM Code IES79-EI Code Onset Dates Condition S tatus SNOMED Code Problem Hypertension, essential I10 Active 32744978 Problem Mood disorder F39 Active 646129 05 Problem Chronic fatigue R53.82 Active 8422 9001 Problem Type 1 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 Active 69596225 Problem Type 1 diabetes mellitus with other diab etic neurological complication E10.49 Active 96941797 Problem Gastroparesis K31.84 Active 783897 006 Problem Type 1 diabetes mellitus with hyperglycemia E10.65 Active [id number] Problem 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 Active 63609996 ALLERGIES No Information ENCOUNTERS Encounter Location Date Diagnosis [facility] [address] [facility] [id number] [address] [place] [address] Jun, [facility] [address] [facility] [id number] [address] [place] [address] Jun, Type 1 diabetes mellitus wit h other diabetic neurological complication E10.49 and Chronic fatigue R53.82 [facility] [address] [facility] [id number] [address] [place] [address] May, Type 1 diabetes mellitus wit h other diabetic neurological complication E10.49 [facility] [address] [facility] [id number] [address] [place] [address] May, [facility] [address] [facility] [id number] [address] [place] [address] May, [facility] [address] [facility] [id number] [address] [place] [address] Apr, [facility] [address] [facility] [id number] [address] [place] [address] Apr, Type 1 diabetes mellitus wit h other diabetic neurological complication E10.49 [facility] [address] [facility] [id number] [address] [place] [address] March, [facility] [address] [facility] [id number] [address] [place] [address] Feb, [facility] [address] [facility] [id number] [address] [place] [address] Feb, Type 1 diabetes mellitus wit h other diabetic neurological complication E10.49 ; Tobacco abuse Z72.0 and Tobacco abuse counseling Z71.6 [facility] [address] [facility] [id number] [address] [place] [address] Jan, Type 1 diabetes mellitus wit h hyperglycemia E10.65 [facility] [address] [facility] [id number] [address] [place] [address] Jan, [facility] [address] [facility] [id number] [address] [place] [address] Dec, Tobacco abuse Z72.0 [facility] [address] [facility] [id number] [address] [place] [address] Dec, Type 1 diabetes mellitus wit h hyperglycemia E10.65 [facility] [address] [facility] [id number] [address] [place] [address] Dec, Type 1 diabetes mellitus wit h hyperglycemia E10.65 ; Tobacco abuse Z72.0 and Tobacco abuse counseling Z71.6 [facility] [address] [facility] [id number] [address] [place] [address] Nov, Type 1 diabetes mellitus wit h hyperglycemia E10.65 [facility] [address] [facility] [id number] [address] [place] [address] Oct, Type 1 diabetes mellitus wit h hyperglycemia E10.65 [facility] [address] [facility] [id number] [address] [place] [address] Oct, Type 1 diabetes mellitus wit h hyperglycemia E10.65 [facility] [address] [facility] [id number] [address] [place] [address] Sep, Type 1 diabetes mellitus wit h hyperglycemia E10.65 [facility] [address] [facility] [id number] [address] [place] [address] Aug, Type 1 diabetes mellitus wit h hyperglycemia E10.65 [facility] [address] [facility] [id number] [address] [place] [address] Aug, [facility] [address] [facility] [id number] [address] [place] [address] Aug, Type 1 diabetes mellitus wit h hyperglycemia E10.65 [facility] [address] [facility] [id number] [address] [place] [address] Aug, Encounter for immunization Z 23 [facility] [address] [facility] [id number] [address] [place] [address] Aug, Type 1 diabetes mellitus wit h hyperglycemia E10.65 [facility] [address] [facility] [id number] [address] [place] [address] Jul, Type 1 diabetes mellitus wit h hyperglycemia E10.65 [facility] [address] [facility] [id number] [address] [place] [address] Jul, Type 1 diabetes mellitus wit h hyperglycemia E10.65 [facility] [address] [facility] [id number] [address] [place] [address] May, Type 1 diabetes mellitus wit h hyperglycemia E10.65 [facility] [address] [facility] [id number] [address] [place] [address] May, [facility] [address] [facility] [id number] [address] [place] [address] Apr, [facility] [address] [facility] [id number] [address] [place] [address] Apr, Type 1 diabetes mellitus wit h hyperglycemia E10.65 [facility] [address] [facility] [id number] [address] [place] [address] March, [facility] [address] [id number] [address] [place] [address] March, [facility] [address] [id number] [address] [place] [address] Jan, [facility] [address] [id number] [address] [place] [address] Jan, [facility] [address] [id number] [address] [place] [address] Jan, Type 1 diabetes mellitus wit h diabetic polyneuropathy E10.42 [facility] [address] [id number] [address] [place] [address] Jan, Type 1 diabetes mellitus wit h hyperglycemia E10.65 ; Excessive cerumen in both ear canals H61.23 and Controlled diabetes mellitus type 1 without complications E10.9 [facility] [address] [id number] [address] [place] [address] Dec, [facility] [address] [id number] [address] [place] [address] Dec, [facility] [address] [facility] [id number] [address] [place] [address] Dec, [facility] [address] [facility] [id number] [address] [place] [address] Dec, [facility] [address] [facility] [id number] [address] [place] [address] Nov, [facility] [address] [id number] [address] [place] [address] Nov, [facility] [address] [facility] [id number] [address] [place] [address] Oct, Type 1 diabetes mellitus wit h hyperglycemia E10.65 [facility] [address] [id number] [address] [place] [address] Sep, [facility] [address] [facility] [id number] [address] [place] [address] Sep, [facility] [address] [id number] [address] [place] [address] Sep, Controlled diabetes mellitus type 1 without complications E10.9 [facility] [address] [id number] [address] [place] [address] Sep, [facility] [address] [id number] [address] [place] [id number] Aug, Dental caries K02.9 [facility] [address] [id number] [address] [place] [address] Aug, Type 1 diabetes mellitus wit h diabetic polyneuropathy E10.42 [facility] [address] [id number] [address] [place] [address] Aug, [facility] [address] [id number] [address] [place] [address] Aug, [facility] [address] [id number] [address] [place] [address] Aug, [facility] [address] [id number] [address] [place] [address] Jul, Type 1 diabetes mellitus wit h hyperglycemia E10.65 [facility] [address] [id number] [address] [place] [address] Jul, 2016 Type 1 diabetes mellitus wit h hyperglycemia E10.65 ; Tooth pain K08.8 and Encounter for immunization Z23 [facility] [address] [id number] [address] [place] [address] [id number] 08 Jul, 2016 Dental examination Z01.20 [facility] [address] [id number] [address] [place] [id number] 08 Jul, 2016 [facility] [address] [id number] [address] [place] [address] Jul, [facility] [address] [id number] [address] [place] [address] Jul, [facility] [address] [id number] [address] [place] [address], [place] [address] Jun, [facility] [address] [id number] [address] [place] [address], [place] [address] May, [facility] [address] [id number] [address] [place] [address], [place] [address] Apr, [facility] [address] [id number] [address] [place] [address], [place] [address] Apr, [facility] [address] [id number] [address] [place] [address], [place] [address] Apr, [facility] [address] [id number] [address] [place] [address], [place] [address] March, [facility] [address] [id number] [address] [place] [address], [place] [address] March, [facility] [address] [id number] [address] [place] [address], [place] [address] Feb, [facility] [address] [id number] [address] [place] [address], [place] [address] Feb, [facility] [address] [id number] [address] [place] [address], [place] [address] Feb, Type 1 diabetes mellitus wit h hyperglycemia E10.65 [facility] [address] [id number] [address] [place] [address], [place] [address] Jan, [facility] [address] [id number] [address] [place] [address] Jan, [facility] [address] [id number] [address] [place] [address], [place] [address] Jan, [facility] [address] [id number] [address] [place] [address], [place] [address] Jan, [facility] [address] [id number] [address] [place] [address] Dec, [facility] [address] [id number] [address] [place] [address] Nov, [facility] [address] [id number] [address] [place] [address] Nov, [facility] [address] [facility] [id number] [address] [place] [address] Oct, [facility] [address] [facility] [id number] [address] [place] [address] Oct, Type 1 diabetes mellitus wit h 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 ; Type 1 diabetes mellitus with hyperglycemia E10.65 ; Gastroparesis K31.84 and Esophageal stricture K22.2 [facility] [address] [facility] [id number] [address] [place] [address] Oct, [facility] [address] [facility] [id number] [address] [place] [address] Sep, [facility] [address] [facility] [id number] [address] [place] [address] Sep, Type 1 diabetes mellitus wit other diabetic neurological complication E10.49 [facility] [address] [facility] [id number] [address] [place] [id number] 22 Aug, 2015 Encounter for immunization Z 23 [facility] [address] [facility] [id number] [address] [place] [address] 19 Aug, 2015 [facility] [address] [facility] [id number] [address] [place] [address] Aug, [facility] [address] [id number] [address] [place] [address] Jul, [facility] [address] [id number] [address] [place] [address] Jul, [facility] [address] [facility] [id number] [address] [place] [address] Jun, [facility] [address] [facility] [id number] [address] [place] [address] Jun, [facility] [address] [id number] [address] [place] [address] Jun, [facility] [address] [id number] [address] [place] [address] May, [facility] [address] [id number] [address] [place] [address] May, [facility] [address] [id number] [address] [place] [address] May, Diabetes type 1, controlled 250.01 [facility] [address] [id number] [address] [place] [address] May, [facility] [address] [id number] [address] [place] [address] May, [facility] [address] [id number] [address] [place] [address] [id number] Apr, Dental examination V72.2 [facility] [address] [id number] [address] [place] [address] Apr, [facility] [address] [id number] [address] [place] [address] Apr, [facility] [address] [id number] [address] [place] [address] Apr, [facility] [address] [id number] [address] [place] [address] Apr, [facility] [address] [id number] [address] [place] [address] Apr, [facility] [address] [id number] [address] [place] [id number] Apr, Dental examination V72.2 [facility] [address] [id number] [address] [place] [address] Apr, [facility] [address] [id number] [address] [place] [address] Apr, [facility] [address] [id number] [address] [place] [id number] 05 Mar, 2015 Diabetes mellitus type 1 250 .01 [facility] [address] [id number] [address] [place] [address], [place] [address] March, [facility] [address] [id number] [address] [place] [address], [place] [address] 14 Feb, 2015 [facility] [address] [id number] [address] [place] [address], [place] [address] Feb, [facility] [address] [id number] [address] [place] [address], [place] [address] Jan, [facility] [address] [id number] [address] [place] [address], [place] [address] Jan, [facility] [address] [id number] [address] [place] [address], [place] [address] Jan, [facility] [address] [id number] [address] [place] [address], [place] [address] Jan, [facility] [address] [id number] [address] [place] [address], [place] [address] Dec, [facility] [address] [id number] [address] [place] [address], [place] [address] Dec, [facility] [address] [id number] [address] [place] [address], [place] [address] Nov, [facility] [address] [id number] [address] [place] [address] Nov, [facility] [address] [id number] [address] [place] [address] Nov, [facility] [address] [id number] [address] [place] [address], [place] [address] Nov, [facility] [address] [id number] [address] [place] [address] Nov, [facility] [address] [id number] [address] [place] [address] Nov, [facility] [address] [id number] [address] [place] [address], [place] [address] Nov, [facility] [address] [id number] [address] [place] [address], [place] [address] Oct, [facility] [address] [id number] [address] [place] [address], [place] [address] Oct, [facility] [address] [id number] [address] [place] [address], [place] [address] Sep, [facility] [address] [id number] [address] [place] [address], [place] [address] Aug, [facility] [address] [id number] [address] [place] [address], [place] [address] Aug, [facility] [address] [id number] [address] [place] [address], [place] [address] Aug, [facility] [address] [id number] [address] [place] [address], [place] [address] Aug, [facility] [address] [id number] [address] [place] [address], [place] [address] Aug, [facility] [address] [id number] [address] [place] [address], [place] [address] Aug, [facility] [address] [id number] [address] [place] [address] Aug, [facility] [address] [id number] [address] [place] [address] Aug, [facility] [address] [id number] [address] [place] [address], [place] [address] Aug, [facility] [address] [id number] [address] [place] [address], [place] [address] Aug, [facility] [address] [id number] [address] [place] [address], [place] [address] Aug, [facility] [address] [id number] [facility] [place] [address] Aug, [facility] [address] [id number] [address] [place] [address], [place] [address] Aug, [facility] [address] [id number] [address] [place] [address], [place] [address] Aug, [facility] [address] [id number] [address] [place] [address], [place] [address] Jul, [facility] [address] [id number] [address] [place] [address], [place] [address] Jul, [facility] [address] [id number] [address] [place] [address], [place] [address] Jul, [facility] [address] [id number] [address] [place] [address], [place] [address] Jul, [facility] [address] [id number] [address] [place] [address], [place] [address] Jun, [facility] [address] [id number] [address] [place] [address], [place] [address] Jun, [facility] [address] [id number] [address] [place] [address], [place] [address] Jun, [facility] [address] [id number] [address] [place] [address], [place] [address] Jun, [facility] [address] [id number] [address] [place] [address], [place] [address] May, [facility] [address] [id number] [address] [place] [address], [place] [address] May, [facility] [address] [id number] [address] [place] [address], [place] [address] May, [facility] [address] [id number] [address] [place] [address], [place] [address] May, [facility] [address] [id number] [address] [place] [address], [place] [address] May, [facility] [address] [id number] [facility] [place] [address] May, 2013 [facility] [address] [id number] [facility] [place] [address] May, [facility] [address] [id number] [address] [place] [address], [place] [address] May, 2013 [facility] [address] [id number] [address] [place] [address], [place] [address] May, 2013 [facility] [address] [id number] [address] [place] [address], [place] [address] May, [facility] [address] [id number] [address] [place] [address], [place] [address] May, [facility] [address] [id number] [address] [place] [address], [place] [address] May, [facility] [address] [id number] [address] [place] [address], [place] [address] May, [facility] [address] [id number] [address] [place] [address], [place] [address] Apr, [facility] [address] [id number] [address] [place] [address], [place] [address] Apr, [facility] [address] [id number] [address] [place] [address], [place] [address] Apr, [facility] [address] [id number] [address] [place] [address], [place] [address] Apr, [facility] [address] [id number] [address] [place] [address], [place] [address] Apr, [facility] [address] [id number] [address] [place] [address], [place] [address] Apr, [facility] [address] [id number] [address] [place] [address], [place] [address] Apr, [facility] [address] [id number] [address] [place] [address], [place] [address] Apr, [facility] [address] [id number] [facility] [place] [address] Apr, [facility] [address] [id number] [address] [place] [address], [place] [address] Apr, [facility] [address] [id number] [address] [place] [address], [place] [address] Apr, [facility] [address] [id number] [address] [place] [address], [place] [address] Apr, [facility] [address] [id number] [address] [place] [address], [place] [address] Apr, [facility] [address] [id number] [address] [place] [address], [place] [address] Apr, [facility] [address] [id number] [address] [place] [address], [place] [address] March, [facility] [address] [id number] [address] [place] [address], [place] [address] March, [facility] [address] [id number] [address] [place] [address], [place] [address] March, [facility] [address] [id number] [address] [place] [address], [place] [address] March, [facility] [address] [id number] [address] [place] [address], [place] [address] March, [facility] [address] [id number] [address] [place] [address], [place] [address] March, [facility] [address] [id number] [address] [place] [address], [place] [address] March, [facility] [address] [id number] [address] [place] [address], [place] [address] March, [facility] [address] [id number] [address] [place] [address], [place] [address] March, [facility] [address] [id number] [address] [place] [address] March, [facility] [address] [id number] [facility] [place] [address] Feb, [facility] [address] [id number] [facility] [place] [address] Feb, [facility] [address] [id number] [address] [place] [address], [place] [address] Feb, [facility] [address] [id number] [address] [place] [address], [place] [address] Feb, [facility] [address] [id number] [address] [place] [address], [place] [address] Feb, [facility] [address] [id number] [address] [place] [address], [place] [address] Feb, [facility] [address] [id number] [address] [place] [address], [place] [address] Feb, [facility] [address] [id number] [address] [place] [address], [place] [address] Feb, [facility] [address] [id number] [address] [place] [address], [place] [address] Jan, [facility] [address] [id number] [address] [place] [address], [place] [address] Jan, [facility] [address] [id number] [address] [place] [address], [place] [address] Jan, [facility] [address] [id number] [address] [place] [address], [place] [address] Jan, [facility] [address] [id number] [address] [place] [address], [place] [address] Jan, [facility] [address] [id number] [address] [place] [address], [place] [address] Jan, [facility] [address] [id number] [address] [place] [address], [place] [address] Jan, [facility] [address] [id number] [address] [place] [address], [place] [address] Jan, [facility] [address] [id number] [address] [place] [address], [place] [address] Jan, [facility] [address] [id number] [address] [place] [address], [place] [address] Jan, [facility] [address] [id number] [address] [place] [address], [place] [address] Dec, [facility] [address] [id number] [address] [place] [address], [place] [address] Dec, [facility] [address] [id number] [address] [place] [address], [place] [address] Nov, [facility] [address] [id number] [address] [place] [address], [place] [address] Nov, [facility] [address] [id number] [address] [place] [address], [place] [address] Nov, [facility] [address] [id number] [address] [place] [address], [place] [address] Nov, [facility] [address] [id number] [address] [place] [address], [place] [address] Nov, [facility] [address] [id number] [address] [place] [address], [place] [address] Nov, [facility] [address] [id number] [address] [place] [address], [place] [address] Nov, [facility] [address] [id number] [address] [place] [address], [place] [address] Nov, [facility] [address] [id number] [address] [place] [address], [place] [address] Oct, [facility] [address] [id number] [address] [place] [address], [place] [address] Oct, [facility] [address] [id number] [address] [place] [address], [place] [address] Oct, [facility] [address] [id number] [address] [place] [address], [place] [address] Oct, [facility] [address] [id number] [address] [place] [address], [place] [address] Oct, [facility] [address] [id number] [address] [place] [address], [place] [address] Oct, [facility] [address] [id number] [address] [place] [address], [place] [address] Sep, [facility] [address] [id number] [address] [place] [address], [place] [address] Sep, [facility] [address] [id number] [address] [place] [address], [place] [address] Sep, [facility] [address] [id number] [address] [place] [address], [place] [address] Sep, [facility] [address] [id number] [address] [place] [address], [place] [address] Sep, [facility] [address] [id number] [address] [place] [address], [place] [address] Aug, [facility] [address] [id number] [address] [place] [address], [place] [address] Aug, [facility] [address] [id number] [address] [place] [address], [place] [address] Aug, [facility] [address] [id number] [address] [place] [address], [place] [address] Aug, [facility] [address] [id number] [address] [place] [address], [place] [address] Aug, [facility] [address] [id number] [address] [place] [address], [place] [address] Aug, [facility] [address] [id number] [address] [place] [address] Jul, [facility] [address] [id number] [address] [place] [address], [place] [address] Jul, [facility] [address] [id number] [address] [place] [address], [place] [address] Jul, [facility] [address] [id number] [address] [place] [address], [place] [address] Jun, [facility] [address] [id number] [address] [place] [address], [place] [address] Jun, [facility] [address] [id number] [address] [place] [address], [place] [address] May, [facility] [address] [id number] [address] [place] [address], [place] [address] May, [facility] [address] [id number] [address] [place] [address], [place] [address] Apr, [facility] [address] [id number] [address] [place] [address], [place] [address] Apr, [facility] [address] [id number] [address] [place] [address], [place] [address] Apr, [facility] [address] [id number] [address] [place] [address], [place] [address] March, [facility] [address] [id number] [address] [place] [address], [place] [address] Feb, [facility] [address] [id number] [address] [place] [address], [place] [address] Feb, [facility] [address] [id number] [address] [place] [address], [place] [address] Jan, [facility] [address] [id number] [address] [place] [address], [place] [address] Jan, [facility] [address] [id number] [address] [place] [address], [place] [address] 13 Jan, 2013 [facility] [address] [id number] [address] [place] [address], [place] [address] Jan, [facility] [address] [id number] [address] [place] [address], [place] [address] Jan, [facility] [address] [id number] [address] [place] [address], [place] [address] Dec, [facility] [address] [id number] [address] [place] [address], [place] [address] Dec, [facility] [address] [id number] [address] [place] [address], [place] [address] Dec, [facility] [address] [id number] [address] [place] [address], [place] [address] Dec, [facility] [address] [id number] [address] [place] [address], [place] [address] Dec, [facility] [address] [id number] [address] [place] [address], [place] [address] Dec, [facility] [address] [place] [id number] Nov, [facility] [address] [id number] [address] [place] [address], [place] [address] Nov, [facility] [address] [id number] [address] [place] [address], [place] [address] Nov, [facility] [address] [id number] [address] [place] [address], [place] [address] Nov, [facility] [address] [id number] [address] [place] [address], [place] [address] Nov, [facility] [address] [id number] [address] [place] [address], [place] [address] Oct, [facility] [address] [id number] [address] [place] [address], [place] [address] Oct, [facility] [address] [id number] [address] [place] [address], [place] [address] Oct, [facility] [address] [id number] [address] [place] [address], [place] [address] 18 Oct, 2012 [facility] [address] [id number] [address] [place] [address], [place] [address] Oct, [facility] [address] [id number] [address] [place] [address], [place] [address] Oct, [facility] [address] [id number] [address] [place] [address], [place] [address] Oct, [facility] [address] [id number] [address] [place] [address], [place] [address] Oct, [facility] [address] [id number] [address] [place] [address], [place] [address] Sep, [facility] [address] [id number] [address] [place] [address], [place] [address] Sep, [facility] [address] [id number] [address] [place] [address], [place] [address] Sep, [facility] [address] [id number] [address] [place] [address], [place] [address] Sep, [facility] [address] [id number] [address] [place] [address], [place] [address] Sep, [facility] [address] [id number] [address] [place] [address], [place] [address] Sep, [facility] [address] [id number] [address] [place] [address], [place] [address] Sep, [facility] [address] [id number] [address] [place] [address], [place] [address] Sep, [facility] [address] [id number] [address] [place] [address], [place] [address] Sep, [facility] [address] [id number] [address] [place] [address], [place] [address] Sep, [facility] [address] [id number] [address] [place] [address], [place] [address] Sep, [facility] [address] [facility] [id number] [address] [place] [address] Sep, [facility] [address] [facility] [id number] [address] [place] [address] Sep, [facility] [address] [facility] [id number] [address] [place] [address] Sep, [facility] [address] [facility] [id number] [address] [place] [address] Sep, [facility] [address] [facility] [id number] [address] [place] [address] Sep, IMMUNIZATIONS No Known Immunizations SOCIAL HISTORY [...]
--- OUTSIDE RECORDS SUMMARY | 2020-04-17 21:41 | XMS REPORT ---
Author Author Curt PATIÑO Organization [facility] Address [address] [place] [address] Care Team Providers Care Edger Runner Name Role Phone BISMARK PATIÑO Unavailable PROBLEMS Type Condition ICD9-CM Code [id number] Code Onset Dates Condition S tatus SNOMED Code Problem Hypertension, essential I10 Active 30864277 Problem Mood disorder F39 Active 453479 05 Problem Chronic fatigue R53.82 Active 8422 9001 Problem Type 1 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 Active 97258257 Problem Type 1 diabetes mellitus with other diab etic neurological complication E10.49 Active 00846700 Problem Gastroparesis K31.84 Active 721333 006 Problem Type 1 diabetes mellitus with hyperglycemia E10.65 Active [id number] Problem 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 [id number] [address] [place] [phone] Jul, Type 1 diabetes mellitus wit h hyperglycemia E10.65 [facility] [address] [facility] [id number] [address] [place] [phone] Jul, [facility] [address] [facility] [id number] [address] [place] [phone] 18 Jul, 2018 [facility] [address] [facility] [id number] [address] [place] [phone] Jul, Type 1 diabetes mellitus wit h other diabetic neurological complication E10.49 [facility] [address] [facility] [id number] [address] [place] [phone] Jul, Type 1 diabetes mellitus wit h other diabetic neurological complication E10.49 and Mood disorder F39 [facility] [address] [facility] [id number] [address] [place] [phone] Jun, [facility] [address] [id number] [address] [place] [phone] Jun, Type 1 diabetes mellitus wit h other diabetic neurological complication E10.49 and Chronic fatigue R53.82 [facility] [address] [id number] [address] [place] [phone] May, Type 1 diabetes mellitus wit h other diabetic neurological complication E10.49 [facility] [address] [id number] [address] [place] [phone] May, [facility] [address] [id number] [address] [place] [id number] May, [facility] [address] [id number] [address] [place] [id number] Apr, [facility] [address] [facility] [id number] [address] [place] [phone] Apr, Type 1 diabetes mellitus wit h other diabetic neurological complication E10.49 [facility] [address] [id number] [address] [place] [phone] March, [facility] [address] [id number] [address] [place] [phone] Feb, [facility] [address] [facility] [id number] [address] [place] [phone] Feb, Type 1 diabetes mellitus wit h other diabetic neurological complication E10.49 ; Tobacco abuse Z72.0 and Tobacco abuse counseling Z71.6 [facility] [address] [facility] [id number] [address] [place] [phone] Jan, Type 1 diabetes mellitus wit h hyperglycemia E10.65 [facility] [address] [id number] [address] [place] [phone] Jan, [facility] [address] [facility] [id number] [address] [place] [phone] Dec, Tobacco abuse Z72.0 [facility] [address] [facility] [id number] [address] [place] [phone] Dec, Type 1 diabetes mellitus wit h hyperglycemia E10.65 [facility] [address] [facility] [id number] [address] [place] [id number] Dec, Type 1 diabetes mellitus wit h hyperglycemia E10.65 ; Tobacco abuse Z72.0 and Tobacco abuse counseling Z71.6 [facility] [address] [facility] [id number] [address] [place] [id number] Nov, Type 1 diabetes mellitus wit h hyperglycemia E10.65 [facility] [address] [facility] [id number] [address] [place] [phone] Oct, Type 1 diabetes mellitus wit h hyperglycemia E10.65 [facility] [address] [facility] [id number] [address] [place] [id number] Oct, Type 1 diabetes mellitus wit h hyperglycemia E10.65 [facility] [address] [facility] [id number] [address] [place] [phone] Sep, Type 1 diabetes mellitus wit h hyperglycemia E10.65 [facility] [address] [facility] [id number] [address] [place] [phone] Aug, Type 1 diabetes mellitus wit h hyperglycemia E10.65 [facility] [address] [facility] [id number] [address] [place] [phone] Aug, [facility] [address] [facility] [id number] [address] [place] [address] Aug, Type 1 diabetes mellitus wit h hyperglycemia E10.65 [facility] [address] [facility] [id number] [address] [place] [phone] Aug, Encounter for immunization Z 23 [facility] [address] [facility] [id number] [address] [place] [phone] Aug, Type 1 diabetes mellitus wit h hyperglycemia E10.65 [facility] [address] [facility] [id number] [address] [place] [phone] Jul, Type 1 diabetes mellitus wit h hyperglycemia E10.65 [facility] [address] [facility] [id number] [address] [place] [phone] Jul, Type 1 diabetes mellitus wit h hyperglycemia E10.65 [facility] [address] [id number] [address] [place] [phone] May, Type 1 diabetes mellitus wit h hyperglycemia E10.65 [facility] [address] [id number] [address] [place] [phone] May, [facility] [address] [id number] [address] [place] [phone] Apr, [facility] [address] [id number] [address] [place] [phone] Apr, Type 1 diabetes mellitus wit h hyperglycemia E10.65 [facility] [address] [id number] [address] [place] [phone] March, [facility] [address] [id number] [address] [place] [phone] March, [facility] [address] [id number] [address] [place] [phone] Jan, [facility] [address] [id number] [address] [place] [phone] Jan, [facility] [address] [id number] [address] [place] [phone] Jan, Type 1 diabetes mellitus wit diabetic polyneuropathy E10.42 [facility] [address] [id number] [address] [place] [phone] Jan, Type 1 diabetes mellitus wit h hyperglycemia E10.65 ; Excessive cerumen in both ear canals H61.23 and Controlled diabetes mellitus type 1 without complications E10.9 [facility] [address] [id number] [address] [place] [id number] Dec, [facility] [address] [id number] [address] [place] [id number] Dec, [facility] [address] [id number] [address] [place] [phone] Dec, [facility] [address] [id number] [address] [place] [id number] Dec, [facility] [address] [id number] [address] [place] [phone] Nov, [facility] [address] [id number] [address] [place] [phone] Nov, [facility] [address] [id number] [address] [place] [id number] Oct, Type 1 diabetes mellitus wit h hyperglycemia E10.65 [facility] [address] [id number] [address] [place] [phone] Sep, [facility] [address] [id number] [address] [place] [phone] Sep, [facility] [address] [id number] [address] [place] [phone] Sep, Controlled diabetes mellitus type 1 without complications E10.9 [facility] [address] [id number] [address] [place] [phone] Sep, [facility] [address] [id number] [address] [place] [id number] Aug, Dental caries K02.9 [facility] [address] [id number] [address] [place] [phone] Aug, Type 1 diabetes mellitus wit h diabetic polyneuropathy E10.42 [facility] [address] [id number] [address] [place] [phone] Aug, [facility] [address] [id number] [address] [place] [phone] Aug, [facility] [address] [id number] [address] [place] [phone] Aug, [facility] [address] [id number] [address] [place] [phone] Jul, Type 1 diabetes mellitus wit h hyperglycemia E10.65 [facility] [address] [id number] [address] [place] [id number] 23 Jul, 2016 Type 1 diabetes mellitus wit h hyperglycemia E10.65 ; Tooth pain K08.8 and Encounter for immunization Z23 [facility] [address] [id number] [address] [place] [id number] Jul, 2016 Dental examination Z01.20 [facility] [address] [id number] [address] [place] [phone] 08 Jul, 2016 [facility] [address] [id number] [address] [place] [phone] 07 Jul, 2016 [facility] [address] [id number] [address] [place] [phone] Jul, [facility] [address] [id number] [address] [place] [phone] Jun, [facility] [address] [id number] [address] [place] [phone] May, [facility] [address] [id number] [address] [place] [phone] Apr, [facility] [address] [id number] [address] [place] [phone] Apr, [facility] [address] [id number] [address] [place] [phone] Apr, [facility] [address] [id number] [address] [place] [phone] March, [facility] [address] [id number] [address] [place] [phone] March, [facility] [address] [id number] [address] [place] [phone] Feb, [facility] [address] [id number] [address] [place] [phone] Feb, [facility] [address] [id number] [address] [place] [phone] Feb, Type 1 diabetes mellitus wit h hyperglycemia E10.65 [facility] [address] [facility] [id number] [address] [place] [phone] Jan, [facility] [address] [facility] [id number] [address] [place] [phone] Jan, [facility] [address] [facility] [id number] [address] [place] [phone] Jan, [facility] [address] [facility] [id number] [address] [place] [phone] Jan, [facility] [address] [facility] [id number] [address] [place] [phone] Dec, [facility] [address] [facility] [id number] [address] [place] [phone] Nov, [facility] [address] [facility] [id number] [address] [place] [phone] Nov, [facility] [address] [facility] [id number] [address] [place] [phone] Oct, [facility] [address] [facility] [id number] [address] [place] [phone] 04 Oct, 2015 Type 1 diabetes mellitus wit h 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 ; Type 1 diabetes mellitus with hyperglycemia E10.65 ; Gastroparesis K31.84 and Esophageal stricture K22.2 [facility] [address] [facility] [id number] [address] [place] [phone] Oct, [facility] [address] [facility] [id number] [address] [place] [phone] Sep, [facility] [address] [facility] [id number] [address] [place] [phone] 13 Sep, 2015 Type 1 diabetes mellitus wit h other diabetic neurological complication E10.49 [facility] [address] [facility] [id number] [address] [place] [phone] Aug, Encounter for immunization Z 23 [facility] [address] [id number] [address] [place] [phone] Aug, [facility] [address] [id number] [address] [place] [phone] Aug, [facility] [address] [id number] [address] [place] [phone] Jul, [facility] [address] [id number] [address] [place] [phone] Jul, [facility] [address] [id number] [address] [place] [phone] Jun, [facility] [address] [id number] [address] [place] [phone] Jun, [facility] [address] [id number] [address] [place] [phone] Jun, [facility] [address] [id number] [address] [place] [phone] May, [facility] [address] [id number] [address] [place] [phone] May, [facility] [address] [id number] [address] [place] [phone] May, Diabetes type 1, controlled 250.01 [facility] [address] [id number] [address] [place] [phone] May, [facility] [address] [id number] [address] [place] [phone] May, [facility] [address] [id number] [address] [place] [id number] Apr, Dental examination V72.2 [facility] [address] [id number] [address] [place] [phone] Apr, [facility] [address] [id number] [address] [place] [phone] Apr, [facility] [address] [id number] [address] [place] [phone] Apr, [facility] [address] [id number] [address] [place] [phone] Apr, [facility] [address] [id number] [address] [place] [phone] Apr, [facility] [address] [id number] [address] [place] [id number] Apr, Dental examination V72.2 [facility] [address] [id number] [address] [place] [phone] Apr, [facility] [address] [id number] [address] [place] [phone] Apr, [facility] [address] [id number] [address] [place] [phone] March, Diabetes mellitus type 1 250 .01 [facility] [address] [id number] [address] [place] [phone] March, [facility] [address] [id number] [address] [place] [phone] Feb, [facility] [address] [id number] [address] [place] [phone] Feb, [facility] [address] [id number] [address] [place] [phone] Jan, [facility] [address] [id number] [address] [place] [phone] Jan, [facility] [address] [id number] [address] [place] [phone] Jan, [facility] [address] [id number] [address] [place] [phone] Jan, [facility] [address] [id number] [address] [place] [phone] Dec, [facility] [address] [id number] [address] [place] [phone] Dec, [facility] [address] [id number] [address] [place] [address], [place] [id number] Nov, [facility] [address] [id number] [address] [place] [address], [place] [phone] Nov, [facility] [address] [id number] [address] [place] [address], [place] [address] Nov, [facility] [address] [id number] [address] [place] [address], [place] [address] Nov, [facility] [address] [id number] [address] [place] [address], [place] [id number] Nov, [facility] [address] [id number] [address] [place] [address], [place] [address] Nov, [facility] [address] [id number] [address] [place] [address], [place] [id number] Nov, [facility] [address] [id number] [address] [place] [address], [place] [phone] Oct, [facility] [address] [id number] [address] [place] [address], [place] [phone] Oct, [facility] [address] [id number] [address] [place] [address], [place] [address] Sep, [facility] [address] [id number] [address] [place] [address], [place] [address] Aug, [facility] [address] [id number] [address] [place] [address], [place] [address] Aug, [facility] [address] [id number] [address] [place] [address], [place] [address] Aug, [facility] [address] [id number] [address] [place] [address], [place] [address] Aug, [facility] [address] [id number] [address] [place] [address], [place] [address] Aug, [facility] [address] [id number] [address] [place] [address], [place] [address] Aug, [facility] [address] [id number] [address] [place] [address], [place] [id number] Aug, [facility] [address] [id number] [address] [place] [address], [place] [address] Aug, [facility] [address] [id number] [address] [place] [address], [place] [address] Aug, [facility] [address] [id number] [address] [place] [address], [place] [address] Aug, [facility] [address] [id number] [address] [place] [address], [place] [address] Aug, [facility] [address] [id number] [address] [place] [address], [place] [address] Aug, [facility] [address] [id number] [address] [place] [address], [place] [address] Aug, [facility] [address] [id number] [address] [place] [address], [place] [address] Aug, [facility] [address] [id number] [address] [place] [address], [place] [address] Jul, [facility] [address] [id number] [address] [place] [address], [place] [address] Jul, [facility] [address] [id number] [address] [place] [address], [place] [address] Jul, [facility] [address] [id number] [address] [place] [address], [place] [address] Jul, [facility] [address] [id number] [address] [place] [address], [place] [address] Jun, [facility] [address] [id number] [address] [place] [address], [place] [address] Jun, [facility] [address] [id number] [address] [place] [address], [place] [address] Jun, [facility] [address] [id number] [address] [place] [address] Jun, [facility] [address] [id number] [address] [place] [address], [place] [address] May, [facility] [address] [id number] [address] [place] [address], [place] [address] May, [facility] [address] [id number] [address] [place] [address], [place] [address] May, [facility] [address] [id number] [address] [place] [address], [place] [address] May, [facility] [address] [id number] [address] [place] [address], [place] [address] May, [facility] [address] [id number] [address] [place] [address], [place] [address] May, [facility] [address] [id number] [address] [place] [address], [place] [address] May, [facility] [address] [id number] [address] [place] [address], [place] [address] May, [facility] [address] [id number] [address] [place] [address], [place] [address] May, [facility] [address] [id number] [address] [place] [address], [place] [address] May, [facility] [address] [id number] [address] [place] [address], [place] [address] May, [facility] [address] [address] [id number] [address] [place] [address], [place] [address] May, [facility] [address] [id number] [address] [place] [address], [place] [address] May, [facility] [address] [id number] [address] [place] [address], [place] [address] Apr, [facility] [address] [id number] [facility] [place] [address] Apr, [facility] [address] [id number] [facility] [place] [address] Apr, [facility] [address] [id number] [facility] [place] [address] Apr, [facility] [address] [id number] [address] [place] [address], [place] [address] Apr, [facility] [address] [id number] [address] [place] [address], [place] [address] Apr, [facility] [address] [id number] [address] [place] [address], [place] [address] Apr, [facility] [address] [id number] [address] [place] [address], [place] [address] Apr, [facility] [address] [id number] [address] [place] [address], [place] [address] Apr, [facility] [address] [id number] [address] [place] [address], [place] [address] Apr, [facility] [address] [id number] [address] [place] [address], [place] [address] Apr, [facility] [address] [id number] [address] [place] [address], [place] [address] Apr, [facility] [address] [id number] [address] [place] [address], [place] [address] Apr, [facility] [address] [id number] [address] [place] [address], [place] [address] Apr, [facility] [address] [id number] [address] [place] [address], [place] [address] March, [facility] [address] [id number] [address] [place] [address], [place] [address] March, [facility] [address] [id number] [address] [place] [address], [place] [address] March, [facility] [address] [id number] [address] [place] [address], [place] [address] March, [facility] [address] [id number] [address] [place] [address], [place] [address] March, [facility] [address] [id number] [address] [place] [address], [place] [address] March, [facility] [address] [id number] [address] [place] [address], [place] [address] March, [facility] [address] [id number] [address] [place] [address], [place] [address] March, [facility] [address] [id number] [address] [place] [address], [place] [address] March, [facility] [address] [id number] [address] [place] [address], [place] [address] March, [facility] [address] [id number] [address] [place] [address], [place] [address] Feb, [facility] [address] [id number] [address] [place] [address], [place] [address] Feb, [facility] [address] [id number] [address] [place] [address], [place] [address] Feb, [facility] [address] [id number] [address] [place] [address], [place] [address] Feb, [facility] [address] [id number] [address] [place] [address], [place] [address] Feb, [facility] [address] [id number] [address] [place] [address], [place] [address] Feb, [facility] [address] [id number] [address] [place] [address], [place] [address] Feb, [facility] [address] [id number] [address] [place] [address], [place] [address] Feb, [facility] [address] [id number] [address] [place] [address], [place] [address] 18 Jan, 2014 [facility] [address] [id number] [facility] [place] [address] Jan, [facility] [address] [id number] [address] [place] [address], [place] [address] Jan, [facility] [address] [id number] [address] [place] [address], [place] [address] Jan, [facility] [address] [id number] [address] [place] [address], [place] [address] Jan, [facility] [address] [id number] [address] [place] [address], [place] [address] Jan, [facility] [address] [id number] [address] [place] [address], [place] [address] Jan, [facility] [address] [id number] [address] [place] [address], [place] [address] Jan, [facility] [address] [id number] [address] [place] [address], [place] [address] Jan, [facility] [address] [id number] [address] [place] [address], [place] [address] Jan, [facility] [address] [id number] [address] [place] [address], [place] [address] Dec, [facility] [address] [id number] [address] [place] [address], [place] [address] Dec, [facility] [address] [id number] [address] [place] [address], [place] [address] Nov, [facility] [address] [id number] [address] [place] [address], [place] [address] Nov, [facility] [address] [id number] [address] [place] [address], [place] [address] Nov, [facility] [address] [id number] [address] [place] [address], [place] [address] Nov, [facility] [address] [id number] [address] [place] [address], [place] [address] 15 Nov, 2013 [facility] [address] [id number] [address] [place] [address], [place] [address] Nov, [facility] [address] [id number] [address] [place] [address], [place] [address] Nov, [facility] [address] [id number] [address] [place] [address], [place] [address] Nov, [facility] [address] [id number] [address] [place] [address], [place] [address] Oct, [facility] [address] [id number] [address] [place] [address], [place] [address] Oct, [facility] [address] [id number] [address] [place] [address], [place] [address] Oct, [facility] [address] [id number] [address] [place] [address], [place] [address] Oct, [facility] [address] [id number] [address] [place] [address], [place] [address] Oct, [facility] [address] [id number] [address] [place] [address], [place] [address] Oct, [facility] [address] [id number] [address] [place] [address], [place] [address] Sep, [facility] [address] [id number] [address] [place] [address], [place] [address] Sep, [facility] [address] [id number] [address] [place] [address], [place] [address] Sep, [facility] [address] [id number] [address] [place] [address], [place] [address] Sep, [facility] [address] [id number] [address] [place] [address], [place] [address] 05 Sep, 2013 [facility] [address] [id number] [address] [place] [address], [place] [address] Aug, [facility] [address] [id number] [address] [place] [address], [place] [address] Aug, [facility] [address] [id number] [address] [place] [address], [place] [address] Aug, [facility] [address] [id number] [address] [place] [address], [place] [address] Aug, [facility] [address] [id number] [address] [place] [address], [place] [address] Aug, [facility] [address] [id number] [address] [place] [address], [place] [address] Aug, [facility] [address] [id number] [address] [place] [address], [place] [address] Jul, [facility] [address] [id number] [address] [place] [address], [place] [address] Jul, [facility] [address] [id number] [address] [place] [address], [place] [address] Jul, [facility] [address] [id number] [address] [place] [address], [place] [address] Jun, [facility] [address] [id number] [address] [place] [address], [place] [address] Jun, [facility] [address] [id number] [address] [place] [address], [place] [address] May, [facility] [address] [id number] [address] [place] [address] May, [facility] [address] [id number] [address] [place] [address], [place] [address] Apr, [facility] [address] [id number] [address] [place] [address], [place] [address] Apr, [facility] [address] [id number] [address] [place] [address], [place] [address] Apr, [facility] [address] [id number] [address] [place] [address], [place] [address] March, [facility] [address] [id number] [address] [place] [address], [place] [address] Feb, [facility] [address] [id number] [address] [place] [address], [place] [address] Feb, [facility] [address] [id number] [address] [place] [address], [place] [address] Jan, [facility] [address] [id number] [address] [place] [address], [place] [address] Jan, [facility] [address] [id number] [address] [place] [address], [place] [address] Jan, [facility] [address] [id number] [address] [place] [address], [place] [address] Jan, [facility] [address] [id number] [address] [place] [address], [place] [address] Jan, [facility] [address] [id number] [address] [place] [address], [place] [address] Dec, [facility] [address] [id number] [address] [place] [address], [place] [address] Dec, [facility] [address] [id number] [address] [place] [address], [place] [address] Dec, [facility] [address] [id number] [address] [place] [address], [place] [address] Dec, [facility] [address] [id number] [address] [place] [address], [place] [address] Dec, [facility] [address] [id number] [address] [place] [address], [place] [address] Dec, [facility] [place] [address] [place] [id number] Nov, [facility] [address] [id number] [address] [place] [address], [place] [address] Nov, [facility] [address] [id number] [address] [place] [address], [place] [address] Nov, [facility] [address] [id number] [address] [place] [address], [place] [address] Nov, [facility] [address] [id number] [address] [place] [address], [place] [address] Nov, [facility] [address] [id number] [address] [place] [address], [place] [address] Oct, [facility] [address] [id number] [address] [place] [address], [place] [address] Oct, [facility] [address] [id number] [address] [place] [address], [place] [address] Oct, [facility] [address] [id number] [address] [place] [address], [place] [address] Oct, [facility] [address] [id number] [address] [place] [address], [place] [address] Oct, [facility] [address] [id number] [address] [place] [address], [place] [address] Oct, [facility] [address] [id number] [address] [place] [address], [place] [address] Oct, [facility] [address] [id number] [address] [place] [address], [place] [address] Oct, [facility] [address] [id number] [address] [place] [address], [place] [address] Sep, [facility] [address] [id number] [address] [place] [address], [place] [address] Sep, [facility] [address] [id number] [address] [place] [address], [place] [address] Sep, [facility] [address] [id number] [address] [place] [address], [place] [address] Sep, [facility] [address] [id number] [address] [place] [address] Sep, [facility] [address] [id number] [address] [place] [address] Sep, [facility] [address] [id number] [address] [place] [id number] Sep, [facility] [address] [id number] [address] [place] [address] Sep, [facility] [address] [id number] [address] [place] [id number] Sep, [facility] [address] [id number] [address] [place] [id number] Sep, [facility] [address] [id number] [address] [place] [address] Sep, [facility] [address] [id number] [address] [place] [id number] Sep, [facility] [address] [id number] [address] [place] [id number] Sep, [facility] [address] [id number] [address] [place] [id number] Sep, [facility] [address] [id number] [address] [place] [address] Sep, [facility] [address] [id number] [address] [place] [id number] Sep, IMMUNIZATIONS No Known Immunizations SOCIAL HISTORY Never Assessed REASON FOR VISIT upload with change PLAN OF CARE VITAL SIGNS MEDICATIONS Unknown Medications RESULTS No Results PROCEDURES No Known procedures INSTRUCTIONS MEDICATIONS ADMINISTERED No Known Medications MEDICAL (GENERAL) HISTORY Type Description Date Medical History hypertension Medical History type I diabetes Medical History chronic renal insufficiency Surgical History gastric pacemaker 2008 Hospitalization History nausea 2011
--- OUTSIDE RECORDS SUMMARY | 2020-04-17 21:42 | XMS REPORT ---
Author Author Curt PATIÑO Organization [facility] Address [address] [place] [address] Care Team Providers Care Business Process Expert Name Role Phone BISMARK PATIÑO Unavailable PROBLEMS Type Condition ICD9-CM Code UCE18-XX Code Onset Dates Condition S tatus SNOMED Code Problem Hypertension, essential I10 Active 03618499 Problem Mood disorder F39 Active 990714 05 Problem Chronic fatigue R53.82 Active 8422 9001 Problem Type 1 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 Active 97695953 Problem Type 1 diabetes mellitus with other diab etic neurological complication E10.49 Active 81733045 Problem Gastroparesis K31.84 Active 907618 006 Problem Type 1 diabetes mellitus with hyperglycemia E10.65 Active [id number] Problem 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 Active [id number] ALLERGIES No Information ENCOUNTERS Encounter Location Date Diagnosis [facility] [address] [facility] [id number] [address] [place] [id number] Jun, [facility] [address] [facility] [id number] [address] [place] [id number] Jun, Type 1 diabetes mellitus wit h other diabetic neurological complication E10.49 and Chronic fatigue R53.82 [facility] [address] [facility] [id number] [address] [place] [id number] May, Type 1 diabetes mellitus wit h other diabetic neurological complication E10.49 [facility] [address] [facility] [id number] [address] [place] [address] May, [facility] [address] [facility] [id number] [address] [place] [id number] May, [facility] [address] [facility] [id number] [address] [place] [id number] Apr, [facility] [address] [facility] [id number] [address] [place] [address] Apr, Type 1 diabetes mellitus wit h other diabetic neurological complication E10.49 [facility] [address] [facility] [id number] [address] [place] [address] March, [facility] [address] [facility] [id number] [address] [place] [phone] Feb, [facility] [address] [facility] [id number] [address] [place] [address] Feb, Type 1 diabetes mellitus wit h other diabetic neurological complication E10.49 ; Tobacco abuse Z72.0 and Tobacco abuse counseling Z71.6 [facility] [address] [facility] [id number] [address] [place] [address] Jan, Type 1 diabetes mellitus wit h hyperglycemia E10.65 [facility] [address] [facility] [id number] [address] [place] [address] Jan, [facility] [address] [facility] [id number] [address] [place] [id number] Dec, Tobacco abuse Z72.0 [facility] [address] [facility] [id number] [address] [place] [address] Dec, Type 1 diabetes mellitus wit h hyperglycemia E10.65 [facility] [address] [facility] [id number] [address] [place] [address] Dec, Type 1 diabetes mellitus wit h hyperglycemia E10.65 ; Tobacco abuse Z72.0 and Tobacco abuse counseling Z71.6 [facility] [address] [facility] [id number] [address] [place] [id number] Nov, Type 1 diabetes mellitus wit h hyperglycemia E10.65 [facility] [address] [facility] [id number] [address] [place] [id number] Oct, Type 1 diabetes mellitus wit h hyperglycemia E10.65 [facility] [address] [facility] [id number] [address] [place] [id number] Oct, Type 1 diabetes mellitus wit h hyperglycemia E10.65 [facility] [address] [facility] [id number] [address] [place] [id number] Sep, Type 1 diabetes mellitus wit h hyperglycemia E10.65 [facility] [address] [facility] [id number] [address] [place] [address] Aug, Type 1 diabetes mellitus wit h hyperglycemia E10.65 [facility] [address] [facility] [id number] [address] [place] [id number] Aug, [facility] [address] [facility] [id number] [address] [place] [address] Aug, Type 1 diabetes mellitus wit h hyperglycemia E10.65 [facility] [address] [facility] [id number] [address] [place] [phone] Aug, Encounter for immunization Z 23 [facility] [address] [facility] [id number] [address] [place] [address] Aug, Type 1 diabetes mellitus wit h hyperglycemia E10.65 [facility] [address] [facility] [id number] [address] [place] [address] Jul, Type 1 diabetes mellitus wit h hyperglycemia E10.65 [facility] [address] [facility] [id number] [address] [place] [address] Jul, Type 1 diabetes mellitus wit h hyperglycemia E10.65 [facility] [address] [facility] [id number] [address] [place] [address] May, Type 1 diabetes mellitus wit h hyperglycemia E10.65 [facility] [address] [facility] [id number] [address] [place] [id number] May, [facility] [address] [facility] [id number] [address] [place] [address] Apr, [facility] [address] [facility] [id number] [address] [place] [id number] Apr, Type 1 diabetes mellitus wit h hyperglycemia E10.65 [facility] [address] [facility] [id number] [address] [place] [id number] March, [facility] [address] [id number] [address] [place] [id number] March, [facility] [address] [id number] [address] [place] [id number] Jan, [facility] [address] [id number] [address] [place] [id number] Jan, [facility] [address] [id number] [address] [place] [id number] Jan, Type 1 diabetes mellitus wit h diabetic polyneuropathy E10.42 [facility] [address] [id number] [address] [place] [phone] Jan, Type 1 diabetes mellitus wit h hyperglycemia E10.65 ; Excessive cerumen in both ear canals H61.23 and Controlled diabetes mellitus type 1 without complications E10.9 [facility] [address] [id number] [address] [place] [id number] Dec, [facility] [address] [id number] [address] [place] [id number] Dec, [facility] [address] [facility] [id number] [address] [place] [phone] Dec, [facility] [address] [facility] [id number] [address] [place] [id number] Dec, [facility] [address] [facility] [id number] [address] [place] [id number] Nov, [facility] [address] [id number] [address] [place] [id number] Nov, [facility] [address] [facility] [id number] [address] [place] [id number] Oct, Type 1 diabetes mellitus wit h hyperglycemia E10.65 [facility] [address] [id number] [address] [place] [phone] Sep, [facility] [address] [facility] [id number] [address] [place] [id number] Sep, [facility] [address] [id number] [address] [place] [id number] Sep, Controlled diabetes mellitus type 1 without complications E10.9 [facility] [address] [id number] [address] [place] [id number] Sep, [facility] [address] [id number] [address] [place] [id number] Aug, Dental caries K02.9 [facility] [address] [id number] [address] [place] [id number] Aug, Type 1 diabetes mellitus wit h diabetic polyneuropathy E10.42 [facility] [address] [id number] [address] [place] [id number] Aug, [facility] [address] [id number] [address] [place] [id number] Aug, [facility] [address] [id number] [address] [place] [id number] Aug, [facility] [address] [id number] [address] [place] [address] Jul, Type 1 diabetes mellitus wit h hyperglycemia E10.65 [facility] [address] [id number] [address] [place] [id number] Jul, 2016 Type 1 diabetes mellitus wit h hyperglycemia E10.65 ; Tooth pain K08.8 and Encounter for immunization Z23 [facility] [address] [id number] [address] [place] [address] [id number] Jul, 2016 Dental examination Z01.20 [facility] [address] [id number] [address] [place] [id number] 08 Jul, 2016 [facility] [address] [id number] [address] [place] [phone] Jul, [facility] [address] [id number] [address] [place] [phone] Jul, [facility] [address] [id number] [address] [place] [address], [place] [address] Jun, [facility] [address] [id number] [address] [place] [address], [place] [address] May, [facility] [address] [id number] [address] [place] [address], [place] [address] Apr, [facility] [address] [id number] [address] [place] [address], [place] [address] Apr, [facility] [address] [id number] [address] [place] [address], [place] [address] Apr, [facility] [address] [id number] [address] [place] [address], [place] [address] March, [facility] [address] [id number] [address] [place] [address], [place] [address] March, [facility] [address] [id number] [address] [place] [address], [place] [address] Feb, [facility] [address] [id number] [address] [place] [address], [place] [address] Feb, [facility] [address] [id number] [address] [place] [address], [place] [address] Feb, Type 1 diabetes mellitus wit h hyperglycemia E10.65 [facility] [address] [id number] [address] [place] [address], [place] [address] Jan, [facility] [address] [id number] [address] [place] [phone] Jan, [facility] [address] [id number] [address] [place] [address], [place] [address] Jan, [facility] [address] [id number] [address] [place] [address], [place] [address] Jan, [facility] [address] [id number] [address] [place] [id number] Dec, [facility] [address] [id number] [address] [place] [id number] Nov, [facility] [address] [id number] [address] [place] [id number] Nov, [facility] [address] [facility] [id number] [address] [place] [phone] Oct, [facility] [address] [facility] [id number] [address] [place] [phone] Oct, Type 1 diabetes mellitus wit h 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 ; Type 1 diabetes mellitus with hyperglycemia E10.65 ; Gastroparesis K31.84 and Esophageal stricture K22.2 [facility] [address] [facility] [id number] [address] [place] [id number] Oct, [facility] [address] [facility] [id number] [address] [place] [id number] Sep, [facility] [address] [facility] [id number] [address] [place] [id number] Sep, Type 1 diabetes mellitus wit other diabetic neurological complication E10.49 [facility] [address] [facility] [id number] [address] [place] [phone] 22 Aug, 2015 Encounter for immunization Z 23 [facility] [address] [facility] [id number] [address] [place] [id number] 19 Aug, 2015 [facility] [address] [facility] [id number] [address] [place] [id number] Aug, [facility] [address] [id number] [address] [place] [id number] Jul, [facility] [address] [id number] [address] [place] [phone] Jul, [facility] [address] [facility] [id number] [address] [place] [id number] Jun, [facility] [address] [facility] [id number] [address] [place] [phone] Jun, [facility] [address] [id number] [address] [place] [id number] Jun, [facility] [address] [id number] [address] [place] [id number] May, [facility] [address] [id number] [address] [place] [id number] May, [facility] [address] [id number] [address] [place] [id number] May, Diabetes type 1, controlled 250.01 [facility] [address] [id number] [address] [place] [phone] May, [facility] [address] [id number] [address] [place] [id number] May, [facility] [address] [id number] [address] [place] [address] [id number] Apr, Dental examination V72.2 [facility] [address] [id number] [address] [place] [id number] Apr, [facility] [address] [id number] [address] [place] [id number] Apr, [facility] [address] [id number] [address] [place] [phone] Apr, [facility] [address] [id number] [address] [place] [id number] Apr, [facility] [address] [id number] [address] [place] [id number] Apr, [facility] [address] [id number] [address] [place] [id number] Apr, Dental examination V72.2 [facility] [address] [id number] [address] [place] [id number] Apr, [facility] [address] [id number] [address] [place] [phone] Apr, [facility] [address] [id number] [address] [place] [id number] 05 Mar, 2015 Diabetes mellitus type [address] [facility] [address] [id number] [address] [place] [address], [place] [address] March, [facility] [address] [id number] [address] [place] [address], [place] [address] 14 Feb, 2015 [facility] [address] [id number] [address] [place] [address], [place] [address] Feb, [facility] [address] [id number] [address] [place] [address], [place] [address] Jan, [facility] [address] [id number] [address] [place] [address], [place] [address] Jan, [facility] [address] [id number] [address] [place] [address], [place] [address] Jan, [facility] [address] [id number] [address] [place] [address], [place] [address] Jan, [facility] [address] [id number] [address] [place] [address], [place] [address] Dec, [facility] [address] [id number] [address] [place] [address], [place] [address] Dec, [facility] [address] [id number] [address] [place] [address], [place] [address] Nov, [facility] [address] [id number] [address] [place] [phone] Nov, [facility] [address] [id number] [address] [place] [phone] Nov, [facility] [address] [id number] [address] [place] [address], [place] [address] Nov, [facility] [address] [id number] [address] [place] [id number] Nov, [facility] [address] [id number] [address] [place] [phone] Nov, [facility] [address] [id number] [address] [place] [address], [place] [address] Nov, [facility] [address] [id number] [address] [place] [address], [place] [address] Oct, [facility] [address] [id number] [address] [place] [address], [place] [address] Oct, [facility] [address] [id number] [address] [place] [address], [place] [address] Sep, [facility] [address] [id number] [address] [place] [address], [place] [address] Aug, [facility] [address] [id number] [address] [place] [address], [place] [address] Aug, [facility] [address] [id number] [address] [place] [address], [place] [address] Aug, [facility] [address] [id number] [address] [place] [address], [place] [address] Aug, [facility] [address] [id number] [address] [place] [address], [place] [address] Aug, [facility] [address] [id number] [address] [place] [address], [place] [address] Aug, [facility] [address] [id number] [address] [place] [id number] Aug, [facility] [address] [id number] [address] [place] [id number] Aug, [facility] [address] [id number] [address] [place] [address], [place] [address] Aug, [facility] [address] [id number] [address] [place] [address], [place] [address] Aug, [facility] [address] [id number] [address] [place] [address], [place] [address] Aug, [facility] [address] [id number] [facility] [place] [address] Aug, [facility] [address] [id number] [address] [place] [address], [place] [address] Aug, [facility] [address] [id number] [address] [place] [address], [place] [address] Aug, [facility] [address] [id number] [address] [place] [address], [place] [address] Jul, [facility] [address] [id number] [address] [place] [address], [place] [address] Jul, [facility] [address] [id number] [address] [place] [address], [place] [address] Jul, [facility] [address] [id number] [address] [place] [address], [place] [address] Jul, [facility] [address] [id number] [address] [place] [address], [place] [address] Jun, [facility] [address] [id number] [address] [place] [address], [place] [address] Jun, [facility] [address] [id number] [address] [place] [address], [place] [address] Jun, [facility] [address] [id number] [address] [place] [address], [place] [address] Jun, [facility] [address] [id number] [address] [place] [address], [place] [address] May, [facility] [address] [id number] [address] [place] [address], [place] [address] May, [facility] [address] [id number] [address] [place] [address], [place] [address] May, [facility] [address] [id number] [address] [place] [address], [place] [address] May, [facility] [address] [id number] [address] [place] [address], [place] [address] May, [facility] [address] [id number] [address] [place] [address] May, 2013 [facility] [address] [id number] [facility] [place] [address] May, [facility] [address] [id number] [address] [place] [address], [place] [address] May, 2013 [facility] [address] [id number] [address] [place] [address], [place] [id number] May, 2013 [facility] [address] [id number] [address] [place] [address], [place] [address] May, [facility] [address] [id number] [address] [place] [address], [place] [address] May, [facility] [address] [id number] [address] [place] [address], [place] [address] May, [facility] [address] [id number] [address] [place] [address], [place] [address] May, [facility] [address] [id number] [address] [place] [address], [place] [address] Apr, [facility] [address] [id number] [address] [place] [address], [place] [address] Apr, [facility] [address] [id number] [address] [place] [address], [place] [address] Apr, [facility] [address] [id number] [address] [place] [address], [place] [address] Apr, [facility] [address] [id number] [address] [place] [address], [place] [address] Apr, [facility] [address] [id number] [address] [place] [address], [place] [address] Apr, [facility] [address] [id number] [address] [place] [address], [place] [address] Apr, [facility] [address] [id number] [address] [place] [address], [place] [address] Apr, [facility] [address] [id number] [address] [place] [address] Apr, [facility] [address] [id number] [address] [place] [address], [place] [address] Apr, [facility] [address] [id number] [address] [place] [address], [place] [address] Apr, [facility] [address] [id number] [address] [place] [address], [place] [address] Apr, [facility] [address] [id number] [address] [place] [address], [place] [address] Apr, [facility] [address] [id number] [address] [place] [address], [place] [address] Apr, [facility] [address] [id number] [address] [place] [address], [place] [id number] March, [facility] [address] [id number] [address] [place] [address], [place] [address] March, [facility] [address] [id number] [address] [place] [address], [place] [address] March, [facility] [address] [id number] [address] [place] [address], [place] [address] March, [facility] [address] [id number] [address] [place] [address], [place] [address] March, [facility] [address] [id number] [address] [place] [address], [place] [address] March, [facility] [address] [id number] [address] [place] [address], [place] [address] March, [facility] [address] [id number] [address] [place] [address], [place] [address] March, [facility] [address] [id number] [address] [place] [address], [place] [address] March, [facility] [address] [id number] [facility] [place] [address] March, [facility] [address] [id number] [facility] [place] [address] Feb, [facility] [address] [id number] [facility] [place] [address] Feb, [facility] [address] [id number] [address] [place] [address], [place] [address] Feb, [facility] [address] [id number] [address] [place] [address], [place] [address] Feb, [facility] [address] [id number] [address] [place] [address], [place] [address] Feb, [facility] [address] [id number] [address] [place] [address], [place] [address] Feb, [facility] [address] [id number] [address] [place] [address], [place] [address] Feb, [facility] [address] [id number] [address] [place] [address], [place] [address] Feb, [facility] [address] [id number] [address] [place] [address], [place] [address] Jan, [facility] [address] [id number] [address] [place] [address], [place] [address] Jan, [facility] [address] [id number] [address] [place] [address], [place] [address] Jan, [facility] [address] [id number] [address] [place] [address], [place] [address] Jan, [facility] [address] [id number] [address] [place] [address], [place] [address] Jan, [facility] [address] [id number] [address] [place] [address], [place] [address] Jan, [facility] [address] [id number] [address] [place] [address], [place] [address] Jan, [facility] [address] [id number] [address] [place] [address], [place] [address] Jan, [facility] [address] [id number] [address] [place] [address], [place] [address] Jan, [facility] [address] [id number] [address] [place] [address], [place] [address] Jan, [facility] [address] [id number] [address] [place] [address], [place] [address] Dec, [facility] [address] [id number] [address] [place] [address], [place] [address] Dec, [facility] [address] [id number] [address] [place] [address], [place] [address] Nov, [facility] [address] [id number] [address] [place] [address], [place] [address] Nov, [facility] [address] [id number] [address] [place] [address], [place] [address] Nov, [facility] [address] [id number] [address] [place] [address], [place] [address] Nov, [facility] [address] [id number] [address] [place] [address], [place] [address] Nov, [facility] [address] [id number] [address] [place] [address], [place] [address] Nov, [facility] [address] [id number] [address] [place] [address], [place] [address] Nov, [facility] [address] [id number] [address] [place] [address], [place] [address] Nov, [facility] [address] [id number] [address] [place] [address], [place] [address] Oct, [facility] [address] [id number] [address] [place] [address], [place] [address] Oct, [facility] [address] [id number] [address] [place] [address], [place] [address] Oct, [facility] [address] [id number] [address] [place] [address], [place] [address] Oct, [facility] [address] [id number] [address] [place] [address], [place] [address] Oct, [facility] [address] [id number] [address] [place] [address], [place] [address] Oct, [facility] [address] [id number] [address] [place] [address], [place] [address] Sep, [facility] [address] [id number] [address] [place] [address], [place] [address] Sep, [facility] [address] [id number] [address] [place] [address], [place] [address] Sep, [facility] [address] [id number] [address] [place] [address], [place] [address] Sep, [facility] [address] [id number] [address] [place] [address], [place] [address] Sep, [facility] [address] [id number] [address] [place] [address], [place] [address] Aug, [facility] [address] [id number] [address] [place] [address], [place] [address] Aug, [facility] [address] [id number] [address] [place] [address], [place] [address] Aug, [facility] [address] [id number] [address] [place] [address], [place] [address] Aug, [facility] [address] [id number] [address] [place] [address], [place] [address] Aug, [facility] [address] [id number] [address] [place] [address], [place] [address] Aug, [facility] [address] [id number] [address] [place] [address] Jul, [facility] [address] [id number] [address] [place] [address], [place] [address] Jul, [facility] [address] [id number] [address] [place] [address], [place] [address] Jul, [facility] [address] [id number] [address] [place] [address], [place] [address] Jun, [facility] [address] [id number] [address] [place] [address], [place] [address] Jun, [facility] [address] [id number] [address] [place] [address], [place] [address] May, [facility] [address] [id number] [address] [place] [address], [place] [address] May, [facility] [address] [id number] [address] [place] [address], [place] [address] Apr, [facility] [address] [id number] [address] [place] [address], [place] [address] Apr, [facility] [address] [id number] [address] [place] [address], [place] [address] Apr, [facility] [address] [id number] [address] [place] [address], [place] [address] March, [facility] [address] [id number] [address] [place] [address], [place] [address] Feb, [facility] [address] [id number] [address] [place] [address], [place] [address] Feb, [facility] [address] [id number] [address] [place] [address], [place] [address] Jan, [facility] [address] [id number] [address] [place] [address], [place] [address] Jan, [facility] [address] [id number] [address] [place] [address], [place] [address] 13 Jan, 2013 [facility] [address] [id number] [address] [place] [address], [place] [address] Jan, [facility] [address] [id number] [address] [place] [address], [place] [address] Jan, [facility] [address] [id number] [address] [place] [address], [place] [address] Dec, [facility] [address] [id number] [address] [place] [address], [place] [address] Dec, [facility] [address] [id number] [address] [place] [address], [place] [address] Dec, [facility] [address] [id number] [address] [place] [address], [place] [address] Dec, [facility] [address] [id number] [address] [place] [address], [place] [address] Dec, [facility] [address] [id number] [address] [place] [address], [place] [address] Dec, [facility] [address] [place] [id number] Nov, [facility] [address] [id number] [address] [place] [address], [place] [address] Nov, [facility] [address] [id number] [address] [place] [address], [place] [address] Nov, [facility] [address] [id number] [address] [place] [address], [place] [address] Nov, [facility] [address] [id number] [address] [place] [address], [place] [address] Nov, [facility] [address] [id number] [address] [place] [address], [place] [address] Oct, [facility] [address] [id number] [address] [place] [address], [place] [address] Oct, [facility] [address] [id number] [address] [place] [address], [place] [address] Oct, [facility] [address] [id number] [address] [place] [address], [place] [address] 18 Oct, 2012 [facility] [address] [id number] [address] [place] [address], [place] [address] Oct, [facility] [address] [id number] [address] [place] [address], [place] [address] Oct, [facility] [address] [id number] [address] [place] [address], [place] [address] Oct, [facility] [address] [id number] [address] [place] [address], [place] [address] Oct, [facility] [address] [id number] [address] [place] [address], [place] [address] Sep, [facility] [address] [id number] [address] [place] [address], [place] [address] Sep, [facility] [address] [id number] [address] [place] [address], [place] [address] Sep, [facility] [address] [id number] [address] [place] [address], [place] [address] Sep, [facility] [address] [id number] [address] [place] [address], [place] [address] Sep, [facility] [address] [id number] [address] [place] [address], [place] [address] Sep, [facility] [address] [id number] [address] [place] [address], [place] [address] Sep, [facility] [address] [id number] [address] [place] [address], [place] [address] Sep, [facility] [address] [id number] [address] [place] [address], [place] [address] Sep, [facility] [address] [id number] [address] [place] [address], [place] [address] Sep, [facility] [address] [id number] [address] [place] [address], [place] [address] Sep, [facility] [address] [facility] [id number] [address] [place] [address] Sep, [facility] [address] [facility] [id number] [address] [place] [id number] Sep, [facility] [address] [facility] [id number] [address] [place] [id number] Sep, [facility] [address] [facility] [id number] [address] [place] [id number] Sep, [facility] [address] [facility] [id number] [address] [place] [id number] Sep, IMMUNIZATIONS No Known Immunizations SOCIAL HISTORY [...]
--- OUTSIDE RECORDS SUMMARY | 2020-04-17 21:42 | XMS REPORT ---
Author Author Curt PATIÑO Organization [facility] Address [address] [place] [address] Care Team Providers Care Canary Raiser Name Role Phone BISMARK PATIÑO Unavailable PROBLEMS Type Condition ICD9-CM Code IGU36-MG Code Onset Dates Condition S tatus SNOMED Code Problem Hypertension, essential I10 Active 40890607 Problem Mood disorder F39 Active 832789 05 Problem Chronic fatigue R53.82 Active 8422 9001 Problem Type 1 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 Active 09727187 Problem Type 1 diabetes mellitus with other diab etic neurological complication E10.49 Active 80422862 Problem Gastroparesis K31.84 Active 065638 006 Problem Type 1 diabetes mellitus with hyperglycemia E10.65 Active [id number] Problem 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 Active [id number] ALLERGIES No Information ENCOUNTERS Encounter Location Date Diagnosis [facility] [place] [address] [facility] [id number] [address] [place] [id number] Jun, [facility] [place] [address] [facility] [id number] [address] [place] [phone] Jun, Type 1 diabetes mellitus wit h other diabetic neurological complication E10.49 and Chronic fatigue R53.82 [facility] [place] [address] [facility] [id number] [address] [place] [phone] May, Type 1 diabetes mellitus wit h other diabetic neurological complication E10.49 [facility] [address] [facility] [id number] [address] [place] [phone] May, [facility] [place] [address] [facility] [id number] [address] [place] [phone] May, [facility] [place] [address] [facility] [id number] [address] [place] [phone] Apr, [facility] [place] [address] [facility] [id number] [address] [place] [phone] Apr, Type 1 diabetes mellitus wit h other diabetic neurological complication E10.49 [facility] [place] [address] [facility] [id number] [address] [place] [phone] March, [facility] [place] [address] [facility] [id number] [address] [place] [phone] Feb, [facility] [place] [address] [facility] [id number] [address] [place] [phone] Feb, Type 1 diabetes mellitus wit h other diabetic neurological complication E10.49 ; Tobacco abuse Z72.0 and Tobacco abuse counseling Z71.6 [facility] [place] [address] [facility] [id number] [address] [place] [address] Jan, Type 1 diabetes mellitus wit h hyperglycemia E10.65 [facility] [place] [address] [facility] [id number] [address] [place] [address] Jan, [facility] [place] [address] [facility] [id number] [address] [place] [phone] Dec, Tobacco abuse Z72.0 [facility] [place] [address] [facility] [id number] [address] [place] [phone] Dec, Type 1 diabetes mellitus wit h hyperglycemia E10.65 [facility] [place] [address] [facility] [id number] [address] [place] [phone] Dec, Type 1 diabetes mellitus wit h hyperglycemia E10.65 ; Tobacco abuse Z72.0 and Tobacco abuse counseling Z71.6 [facility] [place] [address] [facility] [id number] [address] [place] [address] Nov, Type 1 diabetes mellitus wit h hyperglycemia E10.65 [facility] [place] [address] [facility] [id number] [address] [place] [phone] Oct, Type 1 diabetes mellitus wit h hyperglycemia E10.65 [facility] [place] [address] [facility] [id number] [address] [place] [address] Oct, Type 1 diabetes mellitus wit h hyperglycemia E10.65 [facility] [place] [address] [facility] [id number] [address] [place] [phone] Sep, Type 1 diabetes mellitus wit h hyperglycemia E10.65 [facility] [place] [address] [facility] [id number] [address] [place] [phone] Aug, Type 1 diabetes mellitus wit h hyperglycemia E10.65 [facility] [place] [address] [facility] [id number] [address] [place] [phone] Aug, [facility] [place] [address] [facility] [id number] [address] [place] [address] Aug, Type 1 diabetes mellitus wit h hyperglycemia E10.65 [facility] [place] [address] [facility] [id number] [address] [place] [phone] Aug, Encounter for immunization Z 23 [facility] [place] [address] [facility] [id number] [address] [place] [address] Aug, Type 1 diabetes mellitus wit h hyperglycemia E10.65 [facility] [place] [address] [facility] [id number] [address] [place] [phone] Jul, Type 1 diabetes mellitus wit h hyperglycemia E10.65 [facility] [place] [address] [facility] [id number] [address] [place] [phone] Jul, Type 1 diabetes mellitus wit h hyperglycemia E10.65 [facility] [place] [address] [facility] [id number] [address] [place] [phone] May, Type 1 diabetes mellitus wit h hyperglycemia E10.65 [facility] [place] [address] [facility] [id number] [address] [place] [id number] May, [facility] [place] [address] [facility] [id number] [address] [place] [phone] Apr, [facility] [place] [address] [facility] [id number] [address] [place] [phone] Apr, Type 1 diabetes mellitus wit h hyperglycemia E10.65 [facility] [place] [address] [facility] [id number] [address] [place] [phone] March, [facility] [place] [address] [id number] [address] [place] [id number] March, [facility] [place] [address] [id number] [address] [place] [phone] Jan, [facility] [place] [address] [id number] [address] [place] [phone] Jan, [facility] [place] [address] [id number] [address] [place] [phone] Jan, Type 1 diabetes mellitus wit h diabetic polyneuropathy E10.42 [facility] [place] [address] [id number] [address] [place] [phone] Jan, Type 1 diabetes mellitus wit h hyperglycemia E10.65 ; Excessive cerumen in both ear canals H61.23 and Controlled diabetes mellitus type 1 without complications E10.9 [facility] [place] [address] [id number] [address] [place] [phone] Dec, [facility] [place] [address] [id number] [address] [place] [phone] Dec, [facility] [place] [address] [facility] [id number] [address] [place] [id number] Dec, [facility] [place] [address] [facility] [id number] [address] [place] [phone] Dec, [facility] [place] [address] [facility] [id number] [address] [place] [phone] Nov, [facility] [place] [address] [id number] [address] [place] [phone] Nov, [facility] [place] [address] [facility] [id number] [address] [place] [phone] Oct, Type 1 diabetes mellitus wit h hyperglycemia E10.65 [facility] [place] [address] [id number] [address] [place] [phone] Sep, [facility] [place] [address] [facility] [id number] [address] [place] [phone] Sep, [facility] [place] [address] [id number] [address] [place] [id number] Sep, Controlled diabetes mellitus type 1 without complications E10.9 [facility] [place] [address] [id number] [address] [place] [phone] Sep, [facility] [address] [id number] [address] [place] [id number] Aug, Dental caries K02.9 [facility] [place] [address] [id number] [address] [place] [phone] Aug, Type 1 diabetes mellitus wit h diabetic polyneuropathy E10.42 [facility] [place] [address] [id number] [address] [place] [id number] Aug, [facility] [place] [address] [id number] [address] [place] [id number] Aug, [facility] [place] [address] [id number] [address] [place] [phone] Aug, [facility] [place] [address] [id number] [address] [place] [phone] Jul, Type 1 diabetes mellitus wit h hyperglycemia E10.65 [facility] [place] [address] [id number] [address] [place] [phone] Jul, 2016 Type 1 diabetes mellitus wit h hyperglycemia E10.65 ; Tooth pain K08.8 and Encounter for immunization Z23 [facility] [address] [id number] [address] [place] [address] [id number] Jul, 2016 Dental examination Z01.20 [facility] [place] [address] [id number] [address] [place] [phone] 08 Jul, 2016 [facility] [place] [address] [id number] [address] [place] [phone] Jul, [facility] [place] [address] [id number] [address] [place] [phone] Jul, [facility] [address] [id number] [address] [place] [address], [place] [address] Jun, [facility] [address] [id number] [address] [place] [address], [place] [address] May, [facility] [address] [id number] [address] [place] [address], [place] [address] Apr, [facility] [address] [id number] [address] [place] [address], [place] [address] Apr, [facility] [address] [id number] [address] [place] [address], [place] [address] Apr, [facility] [address] [id number] [address] [place] [address], [place] [address] March, [facility] [address] [id number] [address] [place] [address], [place] [address] March, [facility] [address] [id number] [address] [place] [address], [place] [address] Feb, [facility] [address] [id number] [address] [place] [address], [place] [address] Feb, [facility] [address] [id number] [address] [place] [address], [place] [address] Feb, Type 1 diabetes mellitus wit h hyperglycemia E10.65 [facility] [place] [address] [id number] [address] [place] [address], [place] [address] Jan, [facility] [address] [id number] [address] [place] [phone] Jan, [facility] [address] [id number] [address] [place] [address], [place] [address] Jan, [facility] [address] [id number] [address] [place] [address], [place] [address] Jan, [facility] [address] [id number] [address] [place] [phone] Dec, [facility] [address] [id number] [address] [place] [phone] Nov, [facility] [address] [id number] [address] [place] [phone] Nov, [facility] [place] [address] [facility] [id number] [address] [place] [phone] Oct, [facility] [address] [facility] [id number] [address] [place] [phone] Oct, Type 1 diabetes mellitus wit h 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 ; Type 1 diabetes mellitus with hyperglycemia E10.65 ; Gastroparesis K31.84 and Esophageal stricture K22.2 [facility] [address] [facility] [id number] [address] [place] [phone] Oct, [facility] [address] [facility] [id number] [address] [place] [phone] Sep, [facility] [place] [address] [facility] [id number] [address] [place] [phone] Sep, Type 1 diabetes mellitus wit other diabetic neurological complication E10.49 [facility] [address] [facility] [id number] [address] [place] [phone] 22 Aug, 2015 Encounter for immunization Z 23 [facility] [address] [facility] [id number] [address] [place] [phone] 19 Aug, 2015 [facility] [address] [facility] [id number] [address] [place] [phone] Aug, [facility] [address] [id number] [address] [place] [id number] Jul, [facility] [address] [id number] [address] [place] [phone] Jul, [facility] [address] [facility] [id number] [address] [place] [phone] Jun, [facility] [address] [facility] [id number] [address] [place] [phone] Jun, [facility] [address] [id number] [address] [place] [id number] Jun, [facility] [address] [id number] [address] [place] [phone] May, [facility] [address] [id number] [address] [place] [id number] May, [facility] [address] [id number] [address] [place] [phone] May, Diabetes type 1, controlled 250.01 [facility] [address] [id number] [address] [place] [address] May, [facility] [address] [id number] [address] [place] [phone] May, [facility] [address] [id number] [address] [place] [id number] Apr, Dental examination V72.2 [facility] [address] [id number] [address] [place] [id number] Apr, [facility] [address] [id number] [address] [place] [phone] Apr, [facility] [address] [id number] [address] [place] [phone] Apr, [facility] [address] [id number] [address] [place] [phone] Apr, [facility] [address] [id number] [address] [place] [phone] Apr, [facility] [address] [id number] [address] [place] [id number] Apr, Dental examination V72.2 [facility] [address] [id number] [address] [place] [phone] Apr, [facility] [address] [id number] [address] [place] [phone] Apr, [facility] [address] [id number] [address] [place] [phone] 05 Mar, 2015 Diabetes mellitus type [address] [facility] [address] [id number] [address] [place] [address], [place] [address] March, [facility] [address] [id number] [address] [place] [address], [place] [address] 14 Feb, 2015 [facility] [address] [id number] [address] [place] [address], [place] [address] Feb, [facility] [address] [id number] [address] [place] [address], [place] [address] Jan, [facility] [address] [id number] [address] [place] [address], [place] [address] Jan, [facility] [address] [id number] [address] [place] [address], [place] [address] Jan, [facility] [address] [id number] [address] [place] [address], [place] [address] Jan, [facility] [address] [id number] [address] [place] [address], [place] [address] Dec, [facility] [address] [id number] [address] [place] [address], [place] [address] Dec, [facility] [address] [id number] [address] [place] [address], [place] [address] Nov, [facility] [address] [id number] [address] [place] [address] Nov, [facility] [address] [id number] [address] [place] [id number] Nov, [facility] [address] [id number] [address] [place] [address], [place] [address] Nov, [facility] [address] [id number] [address] [place] [address] Nov, [facility] [address] [id number] [address] [place] [id number] Nov, [facility] [address] [id number] [address] [place] [address], [place] [address] Nov, [facility] [address] [id number] [address] [place] [address], [place] [address] Oct, [facility] [address] [id number] [address] [place] [address], [place] [address] Oct, [facility] [address] [id number] [address] [place] [address], [place] [address] Sep, [facility] [address] [id number] [address] [place] [address], [place] [address] Aug, [facility] [address] [id number] [address] [place] [address], [place] [address] Aug, [facility] [address] [id number] [address] [place] [address], [place] [address] Aug, [facility] [address] [id number] [address] [place] [address], [place] [address] Aug, [facility] [address] [id number] [address] [place] [address], [place] [address] Aug, [facility] [address] [id number] [address] [place] [address], [place] [address] Aug, [facility] [address] [id number] [address] [place] [address] Aug, [facility] [address] [id number] [address] [place] [address] Aug, [facility] [address] [id number] [address] [place] [address], [place] [address] Aug, [facility] [address] [id number] [address] [place] [address], [place] [address] Aug, [facility] [address] [id number] [address] [place] [address], [place] [address] Aug, [facility] [address] [id number] [facility] [place] [address] Aug, [facility] [address] [id number] [address] [place] [address], [place] [address] Aug, [facility] [address] [id number] [address] [place] [address], [place] [address] Aug, [facility] [address] [id number] [address] [place] [address], [place] [address] Jul, [facility] [address] [id number] [address] [place] [address], [place] [address] Jul, [facility] [address] [id number] [address] [place] [address], [place] [address] Jul, [facility] [address] [id number] [address] [place] [address], [place] [address] Jul, [facility] [address] [id number] [address] [place] [address], [place] [address] Jun, [facility] [address] [id number] [address] [place] [address], [place] [address] Jun, [facility] [address] [id number] [address] [place] [address], [place] [address] Jun, [facility] [address] [id number] [address] [place] [address], [place] [address] Jun, [facility] [address] [id number] [address] [place] [address], [place] [address] May, [facility] [address] [id number] [address] [place] [address], [place] [address] May, [facility] [address] [id number] [address] [place] [address], [place] [address] May, [facility] [address] [id number] [address] [place] [address], [place] [address] May, [facility] [address] [id number] [address] [place] [address], [place] [address] May, [facility] [address] [id number] [facility] [place] [address] May, 2013 [facility] [address] [id number] [facility] [place] [address] May, [facility] [address] [id number] [address] [place] [address], [place] [address] May, 2013 [facility] [address] [id number] [address] [place] [address], [place] [address] May, 2013 [facility] [address] [id number] [address] [place] [address], [place] [address] May, [facility] [address] [id number] [address] [place] [address], [place] [address] May, [facility] [address] [id number] [address] [place] [address], [place] [address] May, [facility] [address] [id number] [address] [place] [address], [place] [address] May, [facility] [address] [id number] [address] [place] [address], [place] [address] Apr, [facility] [address] [id number] [address] [place] [address], [place] [address] Apr, [facility] [address] [id number] [address] [place] [address], [place] [address] Apr, [facility] [address] [id number] [address] [place] [address], [place] [address] Apr, [facility] [address] [id number] [address] [place] [address], [place] [address] Apr, [facility] [address] [id number] [address] [place] [address], [place] [address] Apr, [facility] [address] [id number] [address] [place] [address], [place] [address] Apr, [facility] [address] [id number] [address] [place] [address], [place] [address] Apr, [facility] [address] [id number] [facility] [place] [address] Apr, [facility] [address] [id number] [address] [place] [address], [place] [address] Apr, [facility] [address] [id number] [address] [place] [address], [place] [address] Apr, [facility] [address] [id number] [address] [place] [address], [place] [address] Apr, [facility] [address] [id number] [address] [place] [address], [place] [address] Apr, [facility] [address] [id number] [address] [place] [address], [place] [address] Apr, [facility] [address] [id number] [address] [place] [address], [place] [address] March, [facility] [address] [id number] [address] [place] [address], [place] [address] March, [facility] [address] [id number] [address] [place] [address], [place] [address] March, [facility] [address] [id number] [address] [place] [address], [place] [address] March, [facility] [address] [id number] [address] [place] [address], [place] [address] March, [facility] [address] [id number] [address] [place] [address], [place] [address] March, [facility] [address] [id number] [address] [place] [address], [place] [address] March, [facility] [address] [id number] [address] [place] [address], [place] [address] March, [facility] [address] [id number] [address] [place] [address], [place] [address] March, [facility] [address] [id number] [facility] [place] [address] March, [facility] [address] [id number] [facility] [place] [address] Feb, [facility] [address] [id number] [facility] [place] [address] Feb, [facility] [address] [id number] [address] [place] [address], [place] [address] Feb, [facility] [address] [id number] [address] [place] [address], [place] [address] Feb, [facility] [address] [id number] [address] [place] [address], [place] [address] Feb, [facility] [address] [id number] [address] [place] [address], [place] [address] Feb, [facility] [address] [id number] [address] [place] [address], [place] [address] Feb, [facility] [address] [id number] [address] [place] [address], [place] [address] Feb, [facility] [address] [id number] [address] [place] [address], [place] [address] Jan, [facility] [address] [id number] [address] [place] [address], [place] [address] Jan, [facility] [address] [id number] [address] [place] [address], [place] [address] Jan, [facility] [address] [id number] [address] [place] [address], [place] [address] Jan, [facility] [address] [id number] [address] [place] [address], [place] [address] Jan, [facility] [address] [id number] [address] [place] [address], [place] [address] Jan, [facility] [address] [id number] [address] [place] [address], [place] [address] Jan, [facility] [address] [id number] [address] [place] [address], [place] [address] Jan, [facility] [address] [id number] [address] [place] [address], [place] [address] Jan, [facility] [address] [id number] [address] [place] [address], [place] [address] Jan, [facility] [address] [id number] [address] [place] [address], [place] [address] Dec, [facility] [address] [id number] [address] [place] [address], [place] [address] Dec, [facility] [address] [id number] [address] [place] [address], [place] [address] Nov, [facility] [address] [id number] [address] [place] [address], [place] [address] Nov, [facility] [address] [id number] [address] [place] [address], [place] [address] Nov, [facility] [address] [id number] [address] [place] [address], [place] [address] Nov, [facility] [address] [id number] [address] [place] [address], [place] [address] Nov, [facility] [address] [id number] [address] [place] [address], [place] [address] Nov, [facility] [address] [id number] [address] [place] [address], [place] [address] Nov, [facility] [address] [id number] [address] [place] [address], [place] [address] Nov, [facility] [address] [id number] [address] [place] [address], [place] [address] Oct, [facility] [address] [id number] [address] [place] [address], [place] [address] Oct, [facility] [address] [id number] [address] [place] [address], [place] [address] Oct, [facility] [address] [id number] [address] [place] [address], [place] [address] Oct, [facility] [address] [id number] [address] [place] [address], [place] [address] Oct, [facility] [address] [id number] [address] [place] [address], [place] [address] Oct, [facility] [address] [id number] [address] [place] [address], [place] [address] Sep, [facility] [address] [id number] [address] [place] [address], [place] [address] Sep, [facility] [address] [id number] [address] [place] [address], [place] [address] Sep, [facility] [address] [id number] [address] [place] [address], [place] [address] Sep, [facility] [address] [id number] [address] [place] [address], [place] [address] Sep, [facility] [address] [id number] [address] [place] [address], [place] [address] Aug, [facility] [address] [id number] [address] [place] [address], [place] [address] Aug, [facility] [address] [id number] [address] [place] [address], [place] [address] Aug, [facility] [address] [id number] [address] [place] [address], [place] [address] Aug, [facility] [address] [id number] [address] [place] [address], [place] [address] Aug, [facility] [address] [id number] [address] [place] [address], [place] [address] Aug, [facility] [address] [id number] [address] [place] [address] Jul, [facility] [address] [id number] [address] [place] [address], [place] [address] Jul, [facility] [address] [id number] [address] [place] [address], [place] [address] Jul, [facility] [address] [id number] [address] [place] [address], [place] [address] Jun, [facility] [address] [id number] [address] [place] [address], [place] [address] Jun, [facility] [address] [id number] [address] [place] [address], [place] [address] May, [facility] [address] [id number] [address] [place] [address], [place] [address] May, [facility] [address] [id number] [address] [place] [address], [place] [address] Apr, [facility] [address] [id number] [address] [place] [address], [place] [address] Apr, [facility] [address] [id number] [address] [place] [address], [place] [address] Apr, [facility] [address] [id number] [address] [place] [address], [place] [address] March, [facility] [address] [id number] [address] [place] [address], [place] [address] Feb, [facility] [address] [id number] [address] [place] [address], [place] [address] Feb, [facility] [address] [id number] [address] [place] [address], [place] [address] Jan, [facility] [address] [id number] [address] [place] [address], [place] [address] Jan, [facility] [address] [id number] [address] [place] [address], [place] [address] 13 Jan, 2013 [facility] [address] [id number] [address] [place] [address], [place] [address] Jan, [facility] [address] [id number] [address] [place] [address], [place] [address] Jan, [facility] [address] [id number] [address] [place] [address], [place] [address] Dec, [facility] [address] [id number] [address] [place] [address], [place] [address] Dec, [facility] [address] [id number] [address] [place] [address], [place] [address] Dec, [facility] [address] [id number] [address] [place] [address], [place] [address] Dec, [facility] [address] [id number] [address] [place] [address], [place] [address] Dec, [facility] [address] [id number] [address] [place] [address], [place] [address] Dec, [facility] [address] [place] [id number] Nov, [facility] [address] [id number] [address] [place] [address], [place] [address] Nov, [facility] [address] [id number] [address] [place] [address], [place] [address] Nov, [facility] [address] [id number] [address] [place] [address], [place] [address] Nov, [facility] [address] [id number] [address] [place] [address], [place] [address] Nov, [facility] [address] [id number] [address] [place] [address], [place] [address] Oct, [facility] [address] [id number] [address] [place] [address], [place] [address] Oct, [facility] [address] [id number] [address] [place] [address], [place] [address] Oct, [facility] [address] [id number] [address] [place] [address], [place] [address] 18 Oct, 2012 [facility] [address] [id number] [address] [place] [address], [place] [address] Oct, [facility] [address] [id number] [address] [place] [address], [place] [address] Oct, [facility] [address] [id number] [address] [place] [address], [place] [address] Oct, [facility] [address] [id number] [address] [place] [address], [place] [address] Oct, [facility] [address] [id number] [address] [place] [address], [place] [address] Sep, [facility] [address] [id number] [address] [place] [address], [place] [address] Sep, [facility] [address] [id number] [address] [place] [address], [place] [address] Sep, [facility] [address] [id number] [address] [place] [address], [place] [address] Sep, [facility] [address] [id number] [address] [place] [address], [place] [address] Sep, [facility] [address] [id number] [address] [place] [address], [place] [address] Sep, [facility] [address] [id number] [address] [place] [address], [place] [address] Sep, [facility] [address] [id number] [address] [place] [address], [place] [address] Sep, [facility] [address] [id number] [address] [place] [address], [place] [address] Sep, [facility] [address] [id number] [address] [place] [address], [place] [address] Sep, [facility] [address] [id number] [address] [place] [address], [place] [address] Sep, [facility] [address] [facility] [id number] [address] [place] [address] Sep, [facility] [address] [facility] [id number] [address] [place] [address] Sep, [facility] [address] [facility] [id number] [address] [place] [address] Sep, [facility] [address] [facility] [id number] [address] [place] [address] Sep, [facility] [address] [facility] [id number] [address] [place] [address] Sep, IMMUNIZATIONS No Known Immunizations SOCIAL HISTORY Never Assessed REASON FOR VISIT [employer] upload info PLAN OF CARE VITAL SIGNS MEDICATIONS Unknown Medications RESULTS No Results PROCEDURES No Known procedures INSTRUCTIONS MEDICATIONS ADMINISTERED No Known Medications MEDICAL (GENERAL) HISTORY Type Description Date Medical History hypertension Medical History type I diabetes Medical History chronic renal insufficiency Surgical History gastric pacemaker 2008 Hospitalization History nausea 2011
--- OUTSIDE RECORDS SUMMARY | 2020-04-17 21:42 | XMS REPORT ---
Author Author Curt PATIÑO Organization [facility] Address [address] [place] [address] Care Team Providers Care Medical Biller Coder Name Role Phone BISMARK PATIÑO Unavailable PROBLEMS Type Condition ICD9-CM Code ARG14-JE Code Onset Dates Condition S tatus SNOMED Code Problem Hypertension, essential I10 Active 11382616 Problem Mood disorder F39 Active 681387 05 Problem Chronic fatigue R53.82 Active 8422 9001 Problem Type 1 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 Active 28875122 Problem Type 1 diabetes mellitus with other diab etic neurological complication E10.49 Active 06942171 Problem Gastroparesis K31.84 Active 352952 006 Problem Type 1 diabetes mellitus with hyperglycemia E10.65 Active [id number] Problem 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 Active [id number] ALLERGIES No Information ENCOUNTERS Encounter Location Date Diagnosis [facility] [address] [facility] [id number] [address] [place] [address] Jun, [facility] [address] [facility] [id number] [address] [place] [address] Jun, Type 1 diabetes mellitus wit h other diabetic neurological complication E10.49 and Chronic fatigue R53.82 [facility] [address] [facility] [id number] [address] [place] [address] May, Type 1 diabetes mellitus wit h other diabetic neurological complication E10.49 [facility] [address] [facility] [id number] [address] [place] [address] May, [facility] [address] [facility] [id number] [address] [place] [address] May, [facility] [address] [facility] [id number] [address] [place] [address] Apr, [facility] [address] [facility] [id number] [address] [place] [address] Apr, Type 1 diabetes mellitus wit h other diabetic neurological complication E10.49 [facility] [address] [facility] [id number] [address] [place] [id number] March, [facility] [address] [facility] [id number] [address] [place] [address] Feb, [facility] [address] [facility] [id number] [address] [place] [address] Feb, Type 1 diabetes mellitus wit h other diabetic neurological complication E10.49 ; Tobacco abuse Z72.0 and Tobacco abuse counseling Z71.6 [facility] [address] [facility] [id number] [address] [place] [address] Jan, Type 1 diabetes mellitus wit h hyperglycemia E10.65 [facility] [address] [facility] [id number] [address] [place] [address] Jan, [facility] [address] [facility] [id number] [address] [place] [address] Dec, Tobacco abuse Z72.0 [facility] [address] [facility] [id number] [address] [place] [address] Dec, Type 1 diabetes mellitus wit h hyperglycemia E10.65 [facility] [address] [facility] [id number] [address] [place] [address] Dec, Type 1 diabetes mellitus wit h hyperglycemia E10.65 ; Tobacco abuse Z72.0 and Tobacco abuse counseling Z71.6 [facility] [address] [facility] [id number] [address] [place] [address] Nov, Type 1 diabetes mellitus wit h hyperglycemia E10.65 [facility] [address] [facility] [id number] [address] [place] [address] Oct, Type 1 diabetes mellitus wit h hyperglycemia E10.65 [facility] [address] [facility] [id number] [address] [place] [address] Oct, Type 1 diabetes mellitus wit h hyperglycemia E10.65 [facility] [address] [facility] [id number] [address] [place] [address] Sep, Type 1 diabetes mellitus wit h hyperglycemia E10.65 [facility] [address] [facility] [id number] [address] [place] [address] Aug, Type 1 diabetes mellitus wit h hyperglycemia E10.65 [facility] [address] [facility] [id number] [address] [place] [address] Aug, [facility] [address] [facility] [id number] [address] [place] [address] Aug, Type 1 diabetes mellitus wit h hyperglycemia E10.65 [facility] [address] [facility] [id number] [address] [place] [address] Aug, Encounter for immunization Z 23 [facility] [address] [facility] [id number] [address] [place] [address] Aug, Type 1 diabetes mellitus wit h hyperglycemia E10.65 [facility] [address] [facility] [id number] [address] [place] [address] Jul, Type 1 diabetes mellitus wit h hyperglycemia E10.65 [facility] [address] [facility] [id number] [address] [place] [address] Jul, Type 1 diabetes mellitus wit h hyperglycemia E10.65 [facility] [address] [facility] [id number] [address] [place] [address] May, Type 1 diabetes mellitus wit h hyperglycemia E10.65 [facility] [address] [facility] [id number] [address] [place] [address] May, [facility] [address] [facility] [id number] [address] [place] [address] Apr, [facility] [address] [facility] [id number] [address] [place] [address] Apr, Type 1 diabetes mellitus wit h hyperglycemia E10.65 [facility] [address] [facility] [id number] [address] [place] [address] March, [facility] [address] [id number] [address] [place] [address] March, [facility] [address] [id number] [address] [place] [address] Jan, [facility] [address] [id number] [address] [place] [address] Jan, [facility] [address] [id number] [address] [place] [address] Jan, Type 1 diabetes mellitus wit h diabetic polyneuropathy E10.42 [facility] [address] [id number] [address] [place] [address] Jan, Type 1 diabetes mellitus wit h hyperglycemia E10.65 ; Excessive cerumen in both ear canals H61.23 and Controlled diabetes mellitus type 1 without complications E10.9 [facility] [address] [id number] [address] [place] [address] Dec, [facility] [address] [id number] [address] [place] [address] Dec, [facility] [address] [facility] [id number] [address] [place] [address] Dec, [facility] [address] [facility] [id number] [address] [place] [address] Dec, [facility] [address] [facility] [id number] [address] [place] [address] Nov, [facility] [address] [id number] [address] [place] [address] Nov, [facility] [address] [facility] [id number] [address] [place] [address] Oct, Type 1 diabetes mellitus wit h hyperglycemia E10.65 [facility] [address] [id number] [address] [place] [address] Sep, [facility] [address] [facility] [id number] [address] [place] [address] Sep, [facility] [address] [id number] [address] [place] [address] Sep, Controlled diabetes mellitus type 1 without complications E10.9 [facility] [address] [id number] [address] [place] [address] Sep, [facility] [address] [id number] [address] [place] [id number] Aug, Dental caries K02.9 [facility] [address] [id number] [address] [place] [address] Aug, Type 1 diabetes mellitus wit h diabetic polyneuropathy E10.42 [facility] [address] [id number] [address] [place] [address] Aug, [facility] [address] [id number] [address] [place] [address] Aug, [facility] [address] [id number] [address] [place] [address] Aug, [facility] [address] [id number] [address] [place] [address] Jul, Type 1 diabetes mellitus wit h hyperglycemia E10.65 [facility] [address] [id number] [address] [place] [address] Jul, 2016 Type 1 diabetes mellitus wit h hyperglycemia E10.65 ; Tooth pain K08.8 and Encounter for immunization Z23 [facility] [address] [id number] [address] [place] [id number] Jul, 2016 Dental examination Z01.20 [facility] [address] [id number] [address] [place] [address] 08 Jul, 2016 [facility] [address] [id number] [address] [place] [address] Jul, [facility] [address] [id number] [address] [place] [address] Jul, [facility] [address] [id number] [address] [place] [address], [place] [address] Jun, [facility] [address] [id number] [address] [place] [address], [place] [address] May, [facility] [address] [id number] [address] [place] [address], [place] [address] Apr, [facility] [address] [id number] [address] [place] [address], [place] [address] Apr, [facility] [address] [id number] [address] [place] [address], [place] [address] Apr, [facility] [address] [id number] [address] [place] [address], [place] [address] March, [facility] [address] [id number] [address] [place] [address], [place] [address] March, [facility] [address] [id number] [address] [place] [address], [place] [address] Feb, [facility] [address] [id number] [address] [place] [address], [place] [address] Feb, [facility] [address] [id number] [address] [place] [address], [place] [address] Feb, Type 1 diabetes mellitus wit h hyperglycemia E10.65 [facility] [address] [id number] [address] [place] [address], [place] [address] Jan, [facility] [address] [id number] [address] [place] [address] Jan, [facility] [address] [id number] [address] [place] [address], [place] [address] Jan, [facility] [address] [id number] [address] [place] [address], [place] [address] Jan, [facility] [address] [id number] [address] [place] [address] Dec, [facility] [address] [id number] [address] [place] [address] Nov, [facility] [address] [id number] [address] [place] [address] Nov, [facility] [address] [facility] [id number] [address] [place] [address] Oct, [facility] [address] [facility] [id number] [address] [place] [address] Oct, Type 1 diabetes mellitus wit h 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 ; Type 1 diabetes mellitus with hyperglycemia E10.65 ; Gastroparesis K31.84 and Esophageal stricture K22.2 [facility] [address] [facility] [id number] [address] [place] [address] Oct, [facility] [address] [facility] [id number] [address] [place] [address] Sep, [facility] [address] [facility] [id number] [address] [place] [address] Sep, Type 1 diabetes mellitus wit other diabetic neurological complication E10.49 [facility] [address] [facility] [id number] [address] [place] [id number] 22 Aug, 2015 Encounter for immunization Z 23 [facility] [address] [facility] [id number] [address] [place] [id number] 19 Aug, 2015 [facility] [address] [facility] [id number] [address] [place] [address] Aug, [facility] [address] [id number] [address] [place] [address] Jul, [facility] [address] [id number] [address] [place] [address] Jul, [facility] [address] [facility] [id number] [address] [place] [address] Jun, [facility] [address] [facility] [id number] [address] [place] [address] Jun, [facility] [address] [id number] [address] [place] [address] Jun, [facility] [address] [id number] [address] [place] [address] May, [facility] [address] [id number] [address] [place] [address] May, [facility] [address] [id number] [address] [place] [address] May, Diabetes type 1, controlled 250.01 [facility] [address] [id number] [address] [place] [address] May, [facility] [address] [id number] [address] [place] [address] May, [facility] [address] [id number] [address] [place] [id number] Apr, Dental examination V72.2 [facility] [address] [id number] [address] [place] [address] Apr, [facility] [address] [id number] [address] [place] [address] Apr, [facility] [address] [id number] [address] [place] [address] Apr, [facility] [address] [id number] [address] [place] [address] Apr, [facility] [address] [id number] [address] [place] [address] Apr, [facility] [address] [id number] [address] [place] [id number] Apr, Dental examination V72.2 [facility] [address] [id number] [address] [place] [address] Apr, [facility] [address] [id number] [address] [place] [address] Apr, [facility] [address] [id number] [address] [place] [address] 05 Mar, 2015 Diabetes mellitus type 1 250 .01 [facility] [address] [id number] [address] [place] [address], [place] [address] March, [facility] [address] [id number] [address] [place] [address], [place] [address] 14 Feb, 2015 [facility] [address] [id number] [address] [place] [address], [place] [address] Feb, [facility] [address] [id number] [address] [place] [address], [place] [address] Jan, [facility] [address] [id number] [address] [place] [address], [place] [address] Jan, [facility] [address] [id number] [address] [place] [address], [place] [address] Jan, [facility] [address] [id number] [address] [place] [address], [place] [address] Jan, [facility] [address] [id number] [address] [place] [address], [place] [address] Dec, [facility] [address] [id number] [address] [place] [address], [place] [address] Dec, [facility] [address] [id number] [address] [place] [address], [place] [address] Nov, [facility] [address] [id number] [address] [place] [address] Nov, [facility] [address] [id number] [address] [place] [address] Nov, [facility] [address] [id number] [address] [place] [address], [place] [address] Nov, [facility] [address] [id number] [address] [place] [address] Nov, [facility] [address] [id number] [address] [place] [address] Nov, [facility] [address] [id number] [address] [place] [address], [place] [address] Nov, [facility] [address] [id number] [address] [place] [address], [place] [address] Oct, [facility] [address] [id number] [address] [place] [address], [place] [address] Oct, [facility] [address] [id number] [address] [place] [address], [place] [address] Sep, [facility] [address] [id number] [address] [place] [address], [place] [address] Aug, [facility] [address] [id number] [address] [place] [address], [place] [address] Aug, [facility] [address] [id number] [address] [place] [address], [place] [address] Aug, [facility] [address] [id number] [address] [place] [address], [place] [address] Aug, [facility] [address] [id number] [address] [place] [address], [place] [address] Aug, [facility] [address] [id number] [address] [place] [address], [place] [address] Aug, [facility] [address] [id number] [address] [place] [address] Aug, [facility] [address] [id number] [address] [place] [address] Aug, [facility] [address] [id number] [address] [place] [address], [place] [address] Aug, [facility] [address] [id number] [address] [place] [address], [place] [address] Aug, [facility] [address] [id number] [address] [place] [address], [place] [address] Aug, [facility] [address] [id number] [facility] [place] [address] Aug, [facility] [address] [id number] [address] [place] [address], [place] [address] Aug, [facility] [address] [id number] [address] [place] [address], [place] [address] Aug, [facility] [address] [id number] [address] [place] [address], [place] [address] Jul, [facility] [address] [id number] [address] [place] [address], [place] [address] Jul, [facility] [address] [id number] [address] [place] [address], [place] [address] Jul, [facility] [address] [id number] [address] [place] [address], [place] [address] Jul, [facility] [address] [id number] [address] [place] [address], [place] [address] Jun, [facility] [address] [id number] [address] [place] [address], [place] [address] Jun, [facility] [address] [id number] [address] [place] [address], [place] [address] Jun, [facility] [address] [id number] [address] [place] [address], [place] [address] Jun, [facility] [address] [id number] [address] [place] [address], [place] [address] May, [facility] [address] [id number] [address] [place] [address], [place] [address] May, [facility] [address] [id number] [address] [place] [address], [place] [address] May, [facility] [address] [id number] [address] [place] [address], [place] [address] May, [facility] [address] [id number] [address] [place] [address], [place] [address] May, [facility] [address] [id number] [facility] [place] [address] May, 2013 [facility] [address] [id number] [address] [place] [address] May, [facility] [address] [id number] [address] [place] [address], [place] [address] May, 2013 [facility] [address] [id number] [address] [place] [address], [place] [address] May, 2013 [facility] [address] [id number] [address] [place] [address], [place] [address] May, [facility] [address] [id number] [address] [place] [address], [place] [address] May, [facility] [address] [id number] [address] [place] [address], [place] [address] May, [facility] [address] [id number] [address] [place] [address], [place] [address] May, [facility] [address] [id number] [address] [place] [address], [place] [address] Apr, [facility] [address] [id number] [address] [place] [address], [place] [address] Apr, [facility] [address] [id number] [address] [place] [address], [place] [address] Apr, [facility] [address] [id number] [address] [place] [address], [place] [address] Apr, [facility] [address] [id number] [address] [place] [address], [place] [address] Apr, [facility] [address] [id number] [address] [place] [address], [place] [address] Apr, [facility] [address] [id number] [address] [place] [address], [place] [address] Apr, [facility] [address] [id number] [address] [place] [address], [place] [address] Apr, [facility] [address] [id number] [address] [place] [address] Apr, [facility] [address] [id number] [address] [place] [address], [place] [address] Apr, [facility] [address] [id number] [address] [place] [address], [place] [address] Apr, [facility] [address] [id number] [address] [place] [address], [place] [address] Apr, [facility] [address] [id number] [address] [place] [address], [place] [address] Apr, [facility] [address] [id number] [address] [place] [address], [place] [address] Apr, [facility] [address] [id number] [address] [place] [address], [place] [address] March, [facility] [address] [id number] [address] [place] [address], [place] [address] March, [facility] [address] [id number] [address] [place] [address], [place] [address] March, [facility] [address] [id number] [address] [place] [address], [place] [address] March, [facility] [address] [id number] [address] [place] [address], [place] [address] March, [facility] [address] [id number] [address] [place] [address], [place] [address] March, [facility] [address] [id number] [address] [place] [address], [place] [address] March, [facility] [facility] [address] [id number] [address] [place] [address], [place] [address] March, [facility] [address] [id number] [address] [place] [address], [place] [address] March, [facility] [address] [id number] [facility] [place] [address] March, [facility] [address] [id number] [facility] [place] [address] Feb, [facility] [address] [id number] [facility] [place] [address] Feb, [facility] [address] [id number] [address] [place] [address], [place] [address] Feb, [facility] [address] [id number] [address] [place] [address], [place] [address] Feb, [facility] [address] [id number] [address] [place] [address], [place] [address] Feb, [facility] [address] [id number] [address] [place] [address], [place] [address] Feb, [facility] [address] [id number] [address] [place] [address], [place] [address] Feb, [facility] [address] [id number] [address] [place] [address], [place] [address] Feb, [facility] [address] [id number] [address] [place] [address], [place] [address] Jan, [facility] [address] [id number] [address] [place] [address], [place] [address] Jan, [facility] [address] [id number] [address] [place] [address], [place] [address] Jan, [facility] [address] [id number] [address] [place] [address], [place] [address] Jan, [facility] [address] [id number] [address] [place] [address], [place] [address] Jan, [facility] [address] [id number] [address] [place] [address], [place] [address] Jan, [facility] [address] [id number] [address] [place] [address], [place] [address] Jan, [facility] [address] [id number] [address] [place] [address], [place] [address] Jan, [facility] [address] [id number] [address] [place] [address], [place] [address] Jan, [facility] [address] [id number] [address] [place] [address], [place] [address] Jan, [facility] [address] [id number] [address] [place] [address], [place] [address] Dec, [facility] [address] [id number] [address] [place] [address], [place] [address] Dec, [facility] [address] [id number] [address] [place] [address], [place] [address] Nov, [facility] [address] [id number] [address] [place] [address], [place] [address] Nov, [facility] [address] [id number] [address] [place] [address], [place] [address] Nov, [facility] [address] [id number] [address] [place] [address], [place] [address] Nov, [facility] [address] [id number] [address] [place] [address], [place] [address] Nov, [facility] [address] [id number] [address] [place] [address], [place] [address] Nov, [facility] [address] [id number] [address] [place] [address], [place] [address] Nov, [facility] [address] [id number] [address] [place] [address], [place] [address] Nov, [facility] [address] [id number] [address] [place] [address], [place] [address] Oct, [facility] [address] [id number] [address] [place] [address], [place] [address] Oct, [facility] [address] [id number] [address] [place] [address], [place] [address] Oct, [facility] [address] [id number] [address] [place] [address], [place] [address] Oct, [facility] [address] [id number] [address] [place] [address], [place] [address] Oct, [facility] [address] [id number] [address] [place] [address], [place] [address] Oct, [facility] [address] [id number] [address] [place] [address], [place] [address] Sep, [facility] [address] [id number] [address] [place] [address], [place] [address] Sep, [facility] [address] [id number] [address] [place] [address], [place] [address] Sep, [facility] [address] [id number] [address] [place] [address], [place] [address] Sep, [facility] [address] [id number] [address] [place] [address], [place] [address] Sep, [facility] [address] [id number] [address] [place] [address], [place] [address] Aug, [facility] [address] [id number] [address] [place] [address], [place] [address] Aug, [facility] [address] [id number] [address] [place] [address], [place] [address] Aug, [facility] [address] [id number] [address] [place] [address], [place] [address] Aug, [facility] [address] [id number] [address] [place] [address], [place] [address] Aug, [facility] [address] [id number] [address] [place] [address], [place] [address] Aug, [facility] [address] [id number] [address] [place] [address] Jul, [facility] [address] [id number] [address] [place] [address], [place] [address] Jul, [facility] [address] [id number] [address] [place] [address], [place] [address] Jul, [facility] [address] [id number] [address] [place] [address], [place] [address] Jun, [facility] [address] [id number] [address] [place] [address], [place] [address] Jun, [facility] [address] [id number] [address] [place] [address], [place] [address] May, [facility] [address] [id number] [address] [place] [address], [place] [address] May, [facility] [address] [id number] [address] [place] [address], [place] [address] Apr, [facility] [address] [id number] [address] [place] [address], [place] [address] Apr, [facility] [address] [id number] [address] [place] [address], [place] [address] Apr, [facility] [address] [id number] [address] [place] [address], [place] [address] March, [facility] [address] [id number] [address] [place] [address], [place] [address] Feb, [facility] [address] [id number] [address] [place] [address], [place] [address] Feb, [facility] [address] [id number] [address] [place] [address], [place] [address] Jan, [facility] [address] [id number] [address] [place] [address], [place] [address] Jan, [facility] [address] [id number] [address] [place] [address], [place] [address] 13 Jan, 2013 [facility] [address] [id number] [address] [place] [address], [place] [address] Jan, [facility] [address] [id number] [address] [place] [address], [place] [address] Jan, [facility] [address] [id number] [address] [place] [address], [place] [address] Dec, [facility] [address] [id number] [address] [place] [address], [place] [address] Dec, [facility] [address] [id number] [address] [place] [address], [place] [address] Dec, [facility] [address] [id number] [address] [place] [address], [place] [address] Dec, [facility] [address] [id number] [address] [place] [address], [place] [address] Dec, [facility] [address] [id number] [address] [place] [address], [place] [address] Dec, [facility] [address] [place] [id number] Nov, [facility] [address] [id number] [address] [place] [address], [place] [address] Nov, [facility] [address] [id number] [address] [place] [address], [place] [address] Nov, [facility] [address] [id number] [address] [place] [address], [place] [address] Nov, [facility] [address] [id number] [address] [place] [address], [place] [address] Nov, [facility] [address] [id number] [address] [place] [address], [place] [address] Oct, [facility] [address] [id number] [address] [place] [address], [place] [address] Oct, [facility] [address] [id number] [address] [place] [address], [place] [address] Oct, [facility] [address] [id number] [address] [place] [address], [place] [address] 18 Oct, 2012 [facility] [address] [id number] [address] [place] [address], [place] [address] Oct, [facility] [address] [id number] [address] [place] [address], [place] [address] Oct, [facility] [address] [id number] [address] [place] [address], [place] [address] Oct, [facility] [address] [id number] [address] [place] [address], [place] [address] Oct, [facility] [address] [id number] [address] [place] [address], [place] [address] Sep, [facility] [address] [id number] [address] [place] [address], [place] [address] Sep, [facility] [address] [id number] [address] [place] [address], [place] [address] Sep, [facility] [address] [id number] [address] [place] [address], [place] [address] Sep, [facility] [address] [id number] [address] [place] [address], [place] [address] Sep, [facility] [address] [id number] [address] [place] [address], [place] [address] Sep, [facility] [address] [id number] [address] [place] [address], [place] [address] Sep, [facility] [address] [id number] [address] [place] [address], [place] [address] Sep, [facility] [address] [id number] [address] [place] [address], [place] [address] Sep, [facility] [address] [id number] [address] [place] [address], [place] [address] Sep, [facility] [address] [id number] [address] [place] [address], [place] [address] Sep, [facility] [address] [facility] [id number] [address] [place] [address] Sep, [facility] [address] [facility] [id number] [address] [place] [address] Sep, [facility] [address] [facility] [id number] [address] [place] [address] Sep, [facility] [address] [facility] [id number] [address] [place] [id number] Sep, [facility] [address] [facility] [id number] [address] [place] [address] Sep, IMMUNIZATIONS No Known Immunizations SOCIAL HISTORY Never Assessed REASON FOR VISIT upload with change PLAN OF CARE VITAL SIGNS MEDICATIONS Medication Instructions Dosage Frequency Start Date End Date Duration S tatus Keflex 500 mg Orally 4 times a day 1 capsule 6h Apr, May, 10 day(s) Active Bactroban 2 % Externally Three times a day 1 application to affecte d area 8h Apr, May, 10 day(s) Active NovoLog 100 UNIT/ML INJECT 45 UNITS SUBC UTANEOUSLY ONCE DAILY PER INSULIN PUMP Active RESULTS No Results PROCEDURES No Known procedures INSTRUCTIONS MEDICATIONS ADMINISTERED No Known Medications MEDICAL (GENERAL) HISTORY Type Description Date Medical History hypertension Medical History type I diabetes Medical History chronic renal insufficiency Surgical History gastric pacemaker 2008 Hospitalization History nausea 2011
--- OUTSIDE RECORDS SUMMARY | 2020-04-17 21:43 | XMS REPORT ---
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 Active 87544760 Problem Type 1 diabetes mellitus with hyperglycemia E10.65 Active 142771501804607 Problem Gastroparesis K31.84 Active 278566 006 Problem Hypertension, essential I10 Active 13308598 Problem 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 Active 65944288 Problem Type 1 diabetes mellitus with other diab etic neurological complication E10.49 Active 40959961 ALLERGIES Substance Reaction Event Type Date Status Cipro Unknown Drug Allergy Feb, Active Sulfa(sulfonamide Antibiotics) Unknown Non Drug Allergy Feb Active ENCOUNTERS Encounter Location Date Diagnosis [facility] [address] [id number] [address] [place] [id number] Jun, [facility] [address] [id number] [address] [place] [phone] May, Type 1 diabetes mellitus wit h other diabetic neurological complication E10.49 [facility] [address] [facility] [id number] [address] [place] [id number] May, [facility] [address] [id number] [address] [place] [phone] May, [facility] [address] [id number] [address] [place] [id number] Apr, [facility] [address] [id number] [address] [place] [address] Apr, Type 1 diabetes mellitus wit h other diabetic neurological complication E10.49 [facility] [address] [facility] [id number] [address] [place] [address] March, [facility] [address] [facility] [id number] [address] [place] [phone] Feb, [facility] [address] [facility] [id number] [address] [place] [id number] Feb, Type 1 diabetes mellitus wit h other diabetic neurological complication E10.49 ; Tobacco abuse Z72.0 and Tobacco abuse counseling Z71.6 [facility] [address] [facility] [id number] [address] [place] [id number] Jan, Type 1 diabetes mellitus wit h hyperglycemia E10.65 [facility] [address] [facility] [id number] [address] [place] [address] Jan, [facility] [address] [facility] [id number] [address] [place] [address] Dec, Tobacco abuse Z72.0 [facility] [address] [facility] [id number] [address] [place] [address] Dec, Type 1 diabetes mellitus wit h hyperglycemia E10.65 [facility] [address] [facility] [id number] [address] [place] [address] Dec, Type 1 diabetes mellitus wit h hyperglycemia E10.65 ; Tobacco abuse Z72.0 and Tobacco abuse counseling Z71.6 [facility] [address] [facility] [id number] [address] [place] [address] Nov, Type 1 diabetes mellitus wit h hyperglycemia E10.65 [facility] [address] [facility] [id number] [address] [place] [address] Oct, Type 1 diabetes mellitus wit h hyperglycemia E10.65 [facility] [address] [facility] [id number] [address] [place] [address] Oct, Type 1 diabetes mellitus wit h hyperglycemia E10.65 [place] [id number] [facility] [id number] [address] [place] [address] Sep, Type 1 diabetes mellitus wit h hyperglycemia E10.65 [facility] [address] [id number] [address] [place] [address] Aug, Type 1 diabetes mellitus wit h hyperglycemia E10.65 [facility] [address] [id number] [address] [place] [address] Aug, [facility] [address] [facility] [id number] [address] [place] [id number] Aug, Type 1 diabetes mellitus wit h hyperglycemia E10.65 [facility] [address] [id number] [address] [place] [id number] Aug, Encounter for immunization Z 23 [facility] [address] [id number] [address] [place] [id number] Aug, Type 1 diabetes mellitus wit h hyperglycemia E10.65 [facility] [address] [facility] [id number] [address] [place] [address] Jul, Type 1 diabetes mellitus wit h hyperglycemia E10.65 [facility] [address] [id number] [address] [place] [address] Jul, Type 1 diabetes mellitus wit h hyperglycemia E10.65 [facility] [address] [id number] [address] [place] [id number] May, Type 1 diabetes mellitus wit h hyperglycemia E10.65 [facility] [address] [id number] [address] [place] [address] May, [facility] [address] [facility] [id number] [address] [place] [id number] Apr, [facility] [address] [id number] [address] [place] [address] Apr, Type 1 diabetes mellitus wit h hyperglycemia E10.65 [facility] [address] [id number] [address] [place] [phone] March, [facility] [address] [facility] [id number] [address] [place] [phone] March, [facility] [address] [facility] [id number] [address] [place] [address] Jan, [facility] [address] [facility] [id number] [address] [place] [address] Jan, [facility] [address] [facility] [id number] [address] [place] [address] Jan, Type 1 diabetes mellitus wit h diabetic polyneuropathy E10.42 [facility] [address] [facility] [id number] [address] [place] [address] Jan, Type 1 diabetes mellitus wit h hyperglycemia E10.65 ; Excessive cerumen in both ear canals H61.23 and Controlled diabetes mellitus type 1 without complications E10.9 [facility] [address] [facility] [id number] [address] [place] [id number] 16 Dec, 2016 [facility] [address] [facility] [id number] [address] [place] [phone] Dec, [facility] [address] [facility] [id number] [address] [place] [id number] Dec, [facility] [address] [facility] [id number] [address] [place] [id number] Dec, [facility] [address] [facility] [id number] [address] [place] [id number] Nov, [facility] [address] [facility] [id number] [address] [place] [id number] Nov, [facility] [address] [facility] [id number] [address] [place] [address] Oct, Type 1 diabetes mellitus wit h hyperglycemia E10.65 [facility] [address] [facility] [id number] [address] [place] [address] Sep, [facility] [address] [facility] [id number] [address] [place] [address] Sep, [facility] [address] [facility] [id number] [address] [place] [address] Sep, Controlled diabetes mellitus type 1 without complications E10.9 [facility] [address] [id number] [address] [place] [address] Sep, [facility] [address] [id number] [address] [place] [id number] Aug, Dental caries K02.9 [facility] [address] [id number] [address] [place] [id number] Aug, Type 1 diabetes mellitus wit h diabetic polyneuropathy E10.42 [facility] [address] [id number] [address] [place] [id number] Aug, [facility] [address] [id number] [address] [place] [id number] Aug, [facility] [address] [id number] [address] [place] [id number] Aug, [facility] [address] [id number] [address] [place] [id number] Jul, Type 1 diabetes mellitus wit h hyperglycemia E10.65 [facility] [address] [id number] [address] [place] [id number] Jul, Type 1 diabetes mellitus wit h hyperglycemia E10.65 ; Tooth pain K08.8 and Encounter for immunization Z23 [facility] [address] [id number] [address] [place] [address] [id number] 08 Jul, 2016 Dental examination Z01.20 [facility] [address] [id number] [address] [place] [address] 08 Jul, 2016 [facility] [address] [id number] [address] [place] [id number] Jul, [facility] [address] [facility] [id number] [address] [place] [phone] Jul, [facility] [address] [id number] [address] [place] [id number] Jun, [facility] [address] [id number] [address] [place] [address], [place] [address] May, [facility] [address] [id number] [address] [place] [address], [place] [address] Apr, [facility] [address] [id number] [address] [place] [address], [place] [address] Apr, [facility] [address] [id number] [address] [place] [address], [place] [address] Apr, [facility] [address] [id number] [address] [place] [address], [place] [address] March, [facility] [address] [id number] [address] [place] [address], [place] [address] March, [facility] [address] [id number] [address] [place] [address], [place] [address] Feb, [facility] [address] [id number] [address] [place] [address], [place] [address] Feb, [facility] [address] [id number] [address] [place] [address], [place] [address] Feb, Type 1 diabetes mellitus wit h hyperglycemia E10.65 [facility] [address] [id number] [address] [place] [address], [place] [address] Jan, [facility] [address] [id number] [address] [place] [address], [place] [address] Jan, [facility] [address] [id number] [address] [place] [phone] Jan, [facility] [address] [id number] [address] [place] [address], [place] [address] Jan, [facility] [address] [id number] [address] [place] [address], [place] [address] Dec, [facility] [address] [id number] [address] [place] [address], [place] [address] Nov, [facility] [address] [id number] [address] [place] [id number] 14 Nov, 2015 [facility] [address] [facility] [id number] [address] [place] [address] Oct, [facility] [address] [facility] [id number] [address] [place] [id number] 04 Oct, 2015 Type 1 diabetes mellitus wit h 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 ; Type 1 diabetes mellitus with hyperglycemia E10.65 ; Gastroparesis K31.84 and Esophageal stricture K22.2 [facility] [address] [facility] [id number] [address] [place] [id number] Oct, [facility] [address] [facility] [id number] [address] [place] [id number] Sep, [facility] [address] [facility] [id number] [address] [place] [id number] Sep, Type 1 diabetes mellitus wit h other diabetic neurological complication E10.49 [facility] [address] [facility] [id number] [address] [place] [id number] 22 Aug, 2015 Encounter for immunization Z 23 [facility] [address] [facility] [id number] [address] [place] [id number] 19 Aug, 2015 [facility] [address] [facility] [id number] [address] [place] [id number] Aug, [facility] [address] [facility] [id number] [address] [place] [id number] Jul, [facility] [address] [facility] [id number] [address] [place] [id number] 14 Jul, 2015 [facility] [address] [facility] [id number] [address] [place] [phone] Jun, [facility] [address] [facility] [id number] [address] [place] [id number] Jun, [facility] [address] [facility] [id number] [address] [place] [id number] Jun, [facility] [address] [id number] [address] [place] [id number] May, [facility] [address] [id number] [address] [place] [id number] May, [facility] [address] [id number] [address] [place] [address] May, Diabetes type 1, controlled 250.01 [facility] [address] [id number] [address] [place] [id number] May, [facility] [address] [id number] [address] [place] [id number] May, [facility] [address] [id number] [address] [place] [id number] Apr, Dental examination V72.2 [facility] [address] [id number] [address] [place] [id number] Apr, [facility] [address] [id number] [address] [place] [phone] Apr, [facility] [address] [id number] [address] [place] [phone] Apr, [facility] [address] [id number] [address] [place] [id number] Apr, [facility] [address] [id number] [address] [place] [id number] Apr, [facility] [address] [id number] [address] [place] [address] [id number] Apr, Dental examination V72.2 [facility] [address] [id number] [address] [place] [id number] Apr, [facility] [address] [id number] [address] [place] [id number] Apr, [facility] [address] [id number] [address] [place] [id number] March, Diabetes mellitus type 1 250 .01 [facility] [address] [id number] [address] [place] [address], [place] [address] March, [facility] [address] [id number] [address] [place] [address], [place] [address] Feb, [facility] [address] [id number] [address] [place] [address], [place] [address] Feb, [facility] [address] [id number] [address] [place] [address], [place] [address] Jan, [facility] [address] [id number] [address] [place] [address], [place] [address] Jan, [facility] [address] [id number] [address] [place] [address], [place] [address] Jan, [facility] [address] [id number] [address] [place] [address], [place] [address] Jan, [facility] [address] [id number] [address] [place] [address], [place] [address] Dec, [facility] [address] [id number] [address] [place] [address], [place] [address] Dec, [facility] [address] [id number] [address] [place] [address], [place] [address] Nov, [facility] [address] [id number] [address] [place] [address], [place] [address] Nov, [facility] [address] [id number] [address] [place] [address], [place] [address] Nov, [facility] [address] [id number] [address] [place] [address], [place] [address] Nov, [facility] [address] [id number] [address] [place] [address], [place] [address] Nov, [facility] [address] [id number] [address] [place] [address], [place] [address] Nov, [facility] [address] [id number] [address] [place] [address], [place] [address] Nov, [facility] [address] [id number] [address] [place] [address], [place] [address] Oct, [facility] [address] [id number] [address] [place] [address], [place] [address] Oct, [facility] [address] [id number] [address] [place] [address], [place] [address] Sep, [facility] [address] [id number] [address] [place] [address], [place] [address] Aug, [facility] [address] [id number] [address] [place] [address], [place] [address] Aug, [facility] [address] [id number] [address] [place] [address], [place] [address] Aug, [facility] [address] [id number] [address] [place] [address], [place] [address] Aug, [facility] [address] [id number] [address] [place] [address], [place] [address] Aug, [facility] [address] [id number] [address] [place] [address], [place] [address] Aug, [facility] [address] [id number] [address] [place] [id number] Aug, [facility] [address] [id number] [address] [place] [address], [place] [address] Aug, [facility] [address] [id number] [address] [place] [id number] Aug, [facility] [address] [id number] [address] [place] [address], [place] [address] Aug, [facility] [address] [id number] [address] [place] [address], [place] [address] Aug, [facility] [address] [id number] [address] [place] [address], [place] [address] Aug, [facility] [address] [id number] [address] [place] [address], [place] [address] Aug, [facility] [address] [id number] [address] [place] [address], [place] [address] Aug, [facility] [address] [id number] [address] [place] [address], [place] [address] Jul, [facility] [address] [id number] [address] [place] [address], [place] [address] Jul, [facility] [address] [id number] [address] [place] [address], [place] [address] Jul, [facility] [address] [id number] [address] [place] [address], [place] [address] Jul, [facility] [address] [id number] [address] [place] [address], [place] [address] Jun, [facility] [address] [id number] [address] [place] [address], [place] [address] Jun, [facility] [address] [id number] [address] [place] [address], [place] [address] Jun, [facility] [address] [id number] [address] [place] [address], [place] [address] Jun, [facility] [address] [id number] [address] [place] [address], [place] [address] May, [facility] [address] [id number] [address] [place] [address], [place] [address] May, [facility] [address] [id number] [address] [place] [address], [place] [address] May, [facility] [address] [id number] [address] [place] [address], [place] [address] May, [facility] [address] [id number] [address] [place] [address], [place] [address] May, [facility] [address] [id number] [address] [place] [address], [place] [address] May, [facility] [address] [id number] [facility] [place] [address] May, 2013 [facility] [address] [id number] [facility] [place] [address] May, 2013 [facility] [address] [id number] [facility] [place] [address] May, 2013 [facility] [address] [id number] [address] [place] [address] May, 2013 [facility] [address] [id number] [address] [place] [address], [place] [address] May, 2013 [facility] [address] [id number] [address] [place] [address], [place] [address] May, [facility] [address] [id number] [address] [place] [address], [place] [address] May, [facility] [address] [id number] [address] [place] [address], [place] [address] Apr, [facility] [address] [id number] [address] [place] [address], [place] [address] Apr, [facility] [address] [id number] [address] [place] [address], [place] [address] Apr, [facility] [address] [id number] [address] [place] [address], [place] [address] Apr, [facility] [address] [id number] [address] [place] [address], [place] [address] Apr, [facility] [address] [id number] [address] [place] [address], [place] [address] Apr, [facility] [address] [id number] [address] [place] [address], [place] [address] Apr, [facility] [address] [id number] [address] [place] [address], [place] [address] Apr, [facility] [address] [id number] [address] [place] [address], [place] [address] Apr, [facility] [address] [id number] [facility] [place] [address] Apr, [facility] [address] [id number] [address] [place] [address], [place] [address] Apr, [facility] [address] [id number] [address] [place] [address], [place] [address] Apr, [facility] [address] [id number] [address] [place] [address], [place] [id number] Apr, [facility] [address] [id number] [address] [place] [address], [place] [address] Apr, [facility] [address] [id number] [address] [place] [address], [place] [address] March, [facility] [address] [id number] [address] [place] [address], [place] [id number] March, [facility] [address] [id number] [address] [place] [address], [place] [address] March, [facility] [address] [id number] [address] [place] [address], [place] [address] March, [facility] [address] [id number] [address] [place] [address], [place] [address] March, [facility] [address] [id number] [address] [place] [address], [place] [address] March, [facility] [address] [id number] [address] [place] [address], [place] [address] March, [facility] [address] [id number] [address] [place] [address], [place] [id number] March, [facility] [address] [id number] [address] [place] [address], [place] [id number] March, [facility] [address] [id number] [address] [place] [address], [place] [address] March, [facility] [address] [id number] [facility] [place] [address] Feb, [facility] [address] [id number] [facility] [place] [address] Feb, [facility] [address] [id number] [facility] [place] [address] Feb, [facility] [address] [id number] [address] [place] [address], [place] [address] Feb, [facility] [address] [id number] [address] [place] [address], [place] [address] Feb, [facility] [address] [id number] [address] [place] [address], [place] [address] Feb, [facility] [address] [id number] [address] [place] [address], [place] [address] Feb, [facility] [address] [id number] [address] [place] [address], [place] [address] Feb, [facility] [address] [id number] [address] [place] [address], [place] [address] Jan, [facility] [address] [id number] [address] [place] [address], [place] [address] Jan, [facility] [address] [id number] [address] [place] [address], [place] [address] Jan, [facility] [address] [id number] [address] [place] [address], [place] [address] Jan, [facility] [address] [id number] [address] [place] [address], [place] [address] Jan, [facility] [address] [id number] [address] [place] [address], [place] [address] Jan, [facility] [address] [id number] [address] [place] [address], [place] [address] Jan, [facility] [address] [id number] [address] [place] [address], [place] [address] Jan, [facility] [address] [id number] [address] [place] [address], [place] [address] Jan, [facility] [address] [id number] [address] [place] [address], [place] [address] Jan, [facility] [address] [id number] [address] [place] [address], [place] [address] Dec, [facility] [address] [id number] [address] [place] [address], [place] [address] Dec, [facility] [address] [id number] [address] [place] [address], [place] [address] Nov, [facility] [address] [id number] [address] [place] [address], [place] [address] Nov, [facility] [address] [id number] [address] [place] [address], [place] [address] Nov, [facility] [address] [id number] [address] [place] [address], [place] [address] Nov, [facility] [address] [id number] [address] [place] [address], [place] [address] Nov, [facility] [address] [id number] [address] [place] [address], [place] [address] Nov, [facility] [address] [id number] [address] [place] [address], [place] [address] Nov, [facility] [address] [id number] [address] [place] [address], [place] [address] Nov, [facility] [address] [id number] [address] [place] [address], [place] [address] Oct, [facility] [address] [id number] [address] [place] [address], [place] [address] Oct, [facility] [address] [id number] [address] [place] [address], [place] [address] Oct, [facility] [address] [id number] [address] [place] [address] Oct, [facility] [address] [id number] [address] [place] [address], [place] [address] Oct, [facility] [address] [id number] [address] [place] [address] Oct, [facility] [address] [id number] [address] [place] [id number] Sep, [facility] [address] [id number] [address] [place] [address] Sep, [facility] [address] [id number] [address] [place] [address] Sep, [facility] [address] [id number] [address] [place] [address] Sep, [facility] [address] [id number] [address] [place] [address] Sep, [facility] [address] [id number] [address] [place] [address] Aug, [facility] [address] [id number] [address] [place] [address] Aug, [facility] [address] [id number] [address] [place] [address] Aug, [facility] [address] [id number] [address] [place] [address] Aug, [facility] [address] [id number] [address] [place] [id number] Aug, [facility] [address] [id number] [address] [place] [id number] Aug, [facility] [address] [id number] [address] [place] [address] Jul, [facility] [address] [id number] [address] [place] [address] Jul, [facility] [address] [id number] [address] [place] [address], [place] [address] Jul, [facility] [address] [id number] [address] [place] [address], [place] [address] Jun, [facility] [address] [id number] [address] [place] [address], [place] [address] Jun, [facility] [address] [id number] [address] [place] [address], [place] [address] May, [facility] [address] [id number] [address] [place] [address], [place] [address] May, [facility] [address] [id number] [address] [place] [address], [place] [address] Apr, [facility] [address] [id number] [address] [place] [address], [place] [address] Apr, [facility] [address] [id number] [address] [place] [address], [place] [address] Apr, [facility] [address] [id number] [address] [place] [address], [place] [address] March, [facility] [address] [id number] [address] [place] [address], [place] [address] Feb, [facility] [address] [id number] [address] [place] [address], [place] [address] Feb, [facility] [address] [id number] [address] [place] [address], [place] [address] Jan, [facility] [address] [id number] [address] [place] [address], [place] [address] Jan, [facility] [address] [id number] [address] [place] [address], [place] [address] 13 Jan, [facility] [address] [id number] [address] [place] [address], [place] [id number] 08 Jan, 2013 [facility] [address] [id number] [address] [place] [address], [place] [address] Jan, [facility] [address] [id number] [facility] [place] [address] Dec, [facility] [address] [id number] [address] [place] [address], [place] [address] Dec, [facility] [address] [id number] [address] [place] [address], [place] [address] Dec, [facility] [address] [id number] [address] [place] [address], [place] [address] Dec, [facility] [address] [id number] [address] [place] [address], [place] [address] Dec, [facility] [address] [id number] [address] [place] [address], [place] [address] Dec, [facility] [address] [place] [id number] Nov, [facility] [address] [id number] [address] [place] [address], [place] [address] Nov, [facility] [address] [id number] [address] [place] [address], [place] [address] Nov, [facility] [address] [id number] [address] [place] [address], [place] [address] Nov, [facility] [address] [id number] [address] [place] [address], [place] [address] Nov, [facility] [address] [id number] [address] [place] [address], [place] [address] Oct, [facility] [address] [id number] [address] [place] [address], [place] [address] Oct, [facility] [address] [id number] [address] [place] [address], [place] [address] Oct, [facility] [address] [id number] [address] [place] [address], [place] [address] Oct, [facility] [address] [id number] [address] [place] [address], [place] [address] Oct, [facility] [address] [id number] [address] [place] [address], [place] [address] Oct, [facility] [address] [id number] [address] [place] [address], [place] [address] Oct, [facility] [address] [id number] [address] [place] [address], [place] [address] Oct, [facility] [address] [id number] [address] [place] [address], [place] [address] Sep, [facility] [address] [id number] [address] [place] [address], [place] [address] Sep, [facility] [address] [id number] [address] [place] [address], [place] [address] Sep, [facility] [address] [id number] [address] [place] [address], [place] [address] Sep, [facility] [address] [id number] [address] [place] [address], [place] [address] Sep, [facility] [address] [id number] [address] [place] [address], [place] [address] Sep, [facility] [address] [id number] [address] [place] [address], [place] [address] Sep, [facility] [address] [id number] [address] [place] [address], [place] [address] Sep, [facility] [address] [id number] [address] [place] [address], [place] [address] Sep, [facility] [address] [id number] [address] [place] [address], [place] [address] Sep, [facility] [address] [id number] [address] [place] [address], [place] [address] Sep, [facility] [address] [id number] [address] [place] [address], [place] [address] Sep, [facility] [address] [id number] [address] [place] [address] Sep, [facility] [address] [id number] [address] [place] [address] Sep, [facility] [address] [facility] [id number] [address] [place] [id number] Sep, [facility] [address] [facility] [id number] [address] [place] [address] Sep, IMMUNIZATIONS No Known Immunizations SOCIAL HISTORY Never Assessed [facility] VITAL SIGNS Height 68 in 2018-03-13 Weight 151 lbs 2018-03-13 Temperature 98.2 degrees Fahrenheit 2018-03-13 Heart Rate 90 bpm 2018-03-13 Respiratory Rate 20 2018-03-13 BMI 22.96 kg/m2 2018-03-13 Blood pressure systolic 120 mmHg 2018-03-13 Blood pressure diastolic 74 mmHg 2018-03-13 MEDICATIONS Medication Instructions Dosage Frequency Start Date End Date Duration S tatus Chantix 1 MG Orally Twice a day 1 tablet 12h Feb, 20 Oc , 2017 30 day(s) Active Diazepam 10 mg Orally 3 times a day 1 tablet 8h 28 days Active Viagra 100 mg Orally Once a day 1 tablet as needed 24h Feb, Active Glucagon Emergency 1 MG as directed May, 1 dose Active Genaro Contour Test N/A test blood sugar 6h Jul, Active NovoLog 100 UNIT/ML INJECT 45 UNITS SUBC UTANEOUSLY ONCE DAILY PER INSULIN PUMP 44 Active Enalapril Maleate 10 mg 1 tablet 24h Active RESULTS No Results PROCEDURES Procedure Date Ordered Result Body Site [facility] VISIT ESTABLISHED PATIENT March 13, 2018 INSTRUCTIONS MEDICATIONS ADMINISTERED No Known Medications MEDICAL (GENERAL) HISTORY Type Description Date Medical History hypertension Medical History type I diabetes Medical History chronic renal insufficiency Surgical History gastric pacemaker 2008 Hospitalization History nausea 2011
--- OUTSIDE RECORDS SUMMARY | 2020-04-17 21:43 | XMS REPORT ---
Author Author Curt PATIÑO Organization [facility] Address [address] [place] [address] Care Team Providers Care Cooker Soda Name Role Phone BISMARK PATIÑO Unavailable PROBLEMS Type Condition ICD9-CM Code ZRT13-SA Code Onset Dates Condition S tatus SNOMED Code Problem Mood disorder F39 Active 181723 05 Problem Type 1 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 Active 08621007 Problem Type 1 diabetes mellitus with hyperglycemia E10.65 Active 806647181549442 Problem Gastroparesis K31.84 Active 132004 006 Problem Hypertension, essential I10 Active 06591929 Problem 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 Active 09829368 Problem Type 1 diabetes mellitus with other diab etic neurological complication E10.49 Active [id number] ALLERGIES No Information ENCOUNTERS Encounter Location Date Diagnosis [facility] [address] [id number] [address] [place] [phone] Jun, [facility] [address] [facility] [id number] [address] [place] [address] May, Type 1 diabetes mellitus wit h other diabetic neurological complication E10.49 [facility] [address] [facility] [id number] [address] [place] [address] May, [facility] [address] [id number] [address] [place] [address] May, [facility] [address] [facility] [id number] [address] [place] [address] Apr, [facility] [address] [id number] [address] [place] [address] Apr, Type 1 diabetes mellitus wit h other diabetic neurological complication E10.49 [facility] [address] [id number] [address] [place] [address] March, [facility] [address] [facility] [id number] [address] [place] [address] Feb, [facility] [address] [facility] [id number] [address] [place] [address] Feb, Type 1 diabetes mellitus wit h other diabetic neurological complication E10.49 ; Tobacco abuse Z72.0 and Tobacco abuse counseling Z71.6 [facility] [address] [facility] [id number] [address] [place] [address] Jan, Type 1 diabetes mellitus wit h hyperglycemia E10.65 [facility] [address] [facility] [id number] [address] [place] [address] Jan, [facility] [address] [facility] [id number] [address] [place] [address] Dec, Tobacco abuse Z72.0 [facility] [address] [facility] [id number] [address] [place] [address] Dec, Type 1 diabetes mellitus wit h hyperglycemia E10.65 [facility] [address] [facility] [id number] [address] [place] [address] Dec, Type 1 diabetes mellitus wit h hyperglycemia E10.65 ; Tobacco abuse Z72.0 and Tobacco abuse counseling Z71.6 [facility] [address] [facility] [id number] [address] [place] [address] Nov, Type 1 diabetes mellitus wit h hyperglycemia E10.65 [facility] [address] [facility] [id number] [address] [place] [address] Oct, Type 1 diabetes mellitus wit h hyperglycemia E10.65 [facility] [address] [facility] [id number] [address] [place] [address] Oct, Type 1 diabetes mellitus wit h hyperglycemia E10.65 [facility] [address] [facility] [id number] [address] [place] [address] Sep, Type 1 diabetes mellitus wit h hyperglycemia E10.65 [facility] [address] [facility] [id number] [address] [place] [address] Aug, Type 1 diabetes mellitus wit h hyperglycemia E10.65 [facility] [address] [id number] [address] [place] [address] Aug, [facility] [address] [id number] [address] [place] [address] Aug, Type 1 diabetes mellitus wit h hyperglycemia E10.65 [facility] [address] [facility] [id number] [address] [place] [address] Aug, Encounter for immunization Z 23 [facility] [address] [id number] [address] [place] [address] Aug, Type 1 diabetes mellitus wit h hyperglycemia E10.65 [facility] [address] [id number] [address] [place] [address] Jul, Type 1 diabetes mellitus wit h hyperglycemia E10.65 [facility] [address] [id number] [address] [place] [address] Jul, Type 1 diabetes mellitus wit h hyperglycemia E10.65 [facility] [address] [id number] [address] [place] [address] May, Type 1 diabetes mellitus wit h hyperglycemia E10.65 [facility] [address] [id number] [address] [place] [address] May, [facility] [address] [id number] [address] [place] [address] Apr, [facility] [address] [id number] [address] [place] [address] Apr, Type 1 diabetes mellitus wit h hyperglycemia E10.65 [facility] [address] [id number] [address] [place] [address] March, [facility] [address] [facility] [id number] [address] [place] [address] March, [facility] [address] [id number] [address] [place] [address] Jan, [facility] [address] [id number] [address] [place] [address] Jan, [facility] [address] [id number] [address] [place] [address] Jan, Type 1 diabetes mellitus wit h diabetic polyneuropathy E10.42 [facility] [address] [id number] [address] [place] [address] Jan, Type 1 diabetes mellitus wit h hyperglycemia E10.65 ; Excessive cerumen in both ear canals H61.23 and Controlled diabetes mellitus type 1 without complications E10.9 [facility] [address] [id number] [address] [place] [id number] 16 Dec, 2016 [facility] [address] [id number] [address] [place] [address] Dec, [facility] [address] [id number] [address] [place] [address] Dec, [facility] [address] [id number] [address] [place] [address] Dec, [facility] [address] [id number] [address] [place] [address] Nov, [facility] [address] [id number] [address] [place] [address] Nov, [facility] [address] [id number] [address] [place] [address] Oct, Type 1 diabetes mellitus wit h hyperglycemia E10.65 [facility] [address] [id number] [address] [place] [address] Sep, [facility] [address] [id number] [address] [place] [address] Sep, [facility] [address] [id number] [address] [place] [address] Sep, Controlled diabetes mellitus type 1 without complications E10.9 [facility] [address] [id number] [address] [place] [address] Sep, [facility] [address] [id number] [address] [place] [id number] Aug, Dental caries K02.9 [facility] [address] [id number] [address] [place] [address] Aug, Type 1 diabetes mellitus wit h diabetic polyneuropathy E10.42 [facility] [address] [id number] [address] [place] [address] Aug, [facility] [address] [id number] [address] [place] [address] Aug, [facility] [address] [id number] [address] [place] [address] Aug, [facility] [address] [facility] [id number] [address] [place] [address] Jul, Type 1 diabetes mellitus wit h hyperglycemia E10.65 [facility] [address] [id number] [address] [place] [address] Jul, Type 1 diabetes mellitus wit h hyperglycemia E10.65 ; Tooth pain K08.8 and Encounter for immunization Z23 [facility] [address] [id number] [address] [place] [id number] 08 Jul, 2016 Dental examination Z01.20 [facility] [address] [id number] [address] [place] [address] 08 Jul, 2016 [facility] [address] [id number] [address] [place] [phone] Jul, [facility] [address] [id number] [address] [place] [address] Jul, [facility] [address] [facility] [id number] [address] [place] [address] Jun, [facility] [address] [id number] [address] [place] [address] May, [facility] [address] [id number] [address] [place] [address], [place] [address] Apr, [facility] [address] [id number] [address] [place] [address], [place] [address] Apr, [facility] [address] [id number] [address] [place] [address], [place] [address] Apr, [facility] [address] [id number] [address] [place] [address], [place] [address] March, [facility] [address] [id number] [address] [place] [address], [place] [address] March, [facility] [address] [id number] [address] [place] [address], [place] [address] Feb, [facility] [address] [id number] [address] [place] [address], [place] [address] Feb, [facility] [address] [id number] [address] [place] [address], [place] [address] Feb, Type 1 diabetes mellitus wit h hyperglycemia E10.65 [facility] [address] [id number] [address] [place] [address], [place] [address] Jan, [facility] [address] [id number] [address] [place] [address], [place] [address] Jan, [facility] [address] [id number] [address] [place] [address] Jan, [facility] [address] [id number] [address] [place] [address] Jan, [facility] [address] [id number] [address] [place] [address], [place] [address] Dec, [facility] [address] [id number] [address] [place] [address], [place] [address] Nov, [facility] [address] [id number] [address] [place] [address] Nov, [facility] [address] [id number] [address] [place] [address] Oct, [facility] [address] [facility] [id number] [address] [place] [address] Oct, Type 1 diabetes mellitus wit h 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 ; Type 1 diabetes mellitus with hyperglycemia E10.65 ; Gastroparesis K31.84 and Esophageal stricture K22.2 [facility] [address] [facility] [id number] [address] [place] [address] Oct, [facility] [address] [facility] [id number] [address] [place] [address] Sep, [facility] [address] [facility] [id number] [address] [place] [address] Sep, Type 1 diabetes mellitus wit h other diabetic neurological complication E10.49 [facility] [address] [facility] [id number] [address] [place] [address] 22 Aug, 2015 Encounter for immunization Z 23 [facility] [address] [facility] [id number] [address] [place] [phone] 19 Aug, 2015 [facility] [address] [facility] [id number] [address] [place] [address] Aug, [facility] [address] [facility] [id number] [address] [place] [phone] Jul, [facility] [address] [facility] [id number] [address] [place] [address] Jul, [facility] [address] [facility] [id number] [address] [place] [address] Jun, [facility] [address] [id number] [address] [place] [address] Jun, [facility] [address] [facility] [id number] [address] [place] [address] Jun, [facility] [address] [facility] [id number] [address] [place] [address] May, [facility] [address] [id number] [address] [place] [address] May, [facility] [address] [id number] [address] [place] [address] May, Diabetes type 1, controlled 250.01 [facility] [address] [id number] [address] [place] [address] May, [facility] [address] [id number] [address] [place] [address] May, [facility] [address] [id number] [address] [place] [id number] Apr, Dental examination V72.2 [facility] [address] [id number] [address] [place] [address] Apr, [facility] [address] [id number] [address] [place] [address] Apr, [facility] [address] [id number] [address] [place] [address] Apr, [facility] [address] [id number] [address] [place] [address] Apr, [facility] [address] [id number] [address] [place] [address] Apr, [facility] [address] [id number] [address] [place] [id number] Apr, Dental examination V72.2 [facility] [address] [id number] [address] [place] [address] Apr, [facility] [address] [id number] [address] [place] [address] Apr, [facility] [address] [id number] [address] [place] [address] March, Diabetes mellitus type 1 250 .01 [facility] [address] [id number] [address] [place] [address] March, [facility] [address] [id number] [address] [place] [address], [place] [address] 14 Feb, 2015 [facility] [address] [id number] [address] [place] [address], [place] [address] Feb, [facility] [address] [id number] [address] [place] [address], [place] [address] Jan, [facility] [address] [id number] [address] [place] [address], [place] [address] Jan, [facility] [address] [id number] [address] [place] [address], [place] [address] Jan, [facility] [address] [id number] [address] [place] [address], [place] [address] Jan, [facility] [address] [id number] [address] [place] [address], [place] [address] Dec, [facility] [address] [id number] [address] [place] [address], [place] [address] Dec, [facility] [address] [id number] [address] [place] [address], [place] [address] Nov, [facility] [address] [id number] [address] [place] [address], [place] [address] Nov, [facility] [address] [id number] [address] [place] [address], [place] [address] Nov, [facility] [address] [id number] [address] [place] [address], [place] [address] Nov, [facility] [address] [id number] [address] [place] [address], [place] [address] Nov, [facility] [address] [id number] [address] [place] [address], [place] [address] Nov, [facility] [address] [id number] [address] [place] [address], [place] [address] Nov, [facility] [address] [id number] [address] [place] [address] [address] Oct, [facility] [address] [id number] [address] [place] [address], [place] [address] Oct, [facility] [address] [id number] [address] [place] [address], [place] [address] Sep, [facility] [address] [id number] [address] [place] [address], [place] [address] Aug, [facility] [address] [id number] [address] [place] [address], [place] [address] Aug, [facility] [address] [id number] [address] [place] [address], [place] [address] Aug, [facility] [address] [id number] [address] [place] [address], [place] [address] Aug, [facility] [address] [id number] [address] [place] [address], [place] [address] Aug, [facility] [address] [id number] [address] [place] [address], [place] [address] Aug, [facility] [address] [id number] [address] [place] [address], [place] [address] Aug, [facility] [address] [id number] [address] [place] [phone] Aug, [facility] [address] [id number] [address] [place] [address] Aug, [facility] [address] [id number] [address] [place] [address] Aug, [facility] [address] [id number] [address] [place] [address], [place] [address] Aug, [facility] [address] [id number] [address] [place] [phone] Aug, [facility] [address] [id number] [address] [place] [address] Aug, [facility] [address] [id number] [facility] [place] [address] Aug, [facility] [address] [id number] [address] [place] [address], [place] [address] Jul, [facility] [address] [id number] [address] [place] [address], [place] [address] Jul, [facility] [address] [id number] [address] [place] [address], [place] [address] Jul, [facility] [address] [id number] [address] [place] [address], [place] [address] Jul, [facility] [address] [id number] [address] [place] [address], [place] [address] Jun, [facility] [address] [id number] [address] [place] [address], [place] [id number] Jun, [facility] [address] [id number] [address] [place] [address], [place] [address] Jun, [facility] [address] [id number] [address] [place] [address], [place] [address] Jun, [facility] [address] [id number] [address] [place] [address], [place] [address] May, [facility] [address] [id number] [address] [place] [address], [place] [address] May, [facility] [address] [id number] [address] [place] [address], [place] [address] May, [facility] [address] [id number] [address] [place] [address], [place] [address] May, [facility] [address] [id number] [address] [place] [address], [place] [address] May, [facility] [address] [id number] [address] [place] [address], [place] [address] May, [facility] [address] [id number] [address] [place] [address], [place] [address] May, [facility] [address] [id number] [facility] [place] [address] May, 2013 [facility] [address] [id number] [facility] [place] [address] May, [facility] [address] [id number] [address] [place] [address], [place] [address] May, [facility] [address] [id number] [address] [place] [address], [place] [address] May, [facility] [address] [id number] [address] [place] [address], [place] [address] May, [facility] [address] [id number] [address] [place] [address], [place] [address] May, [facility] [address] [id number] [address] [place] [address], [place] [address] Apr, [facility] [address] [id number] [address] [place] [address], [place] [address] Apr, [facility] [address] [id number] [address] [place] [address], [place] [address] Apr, [facility] [address] [id number] [address] [place] [address], [place] [address] Apr, [facility] [address] [id number] [address] [place] [address], [place] [address] Apr, [facility] [address] [id number] [address] [place] [address], [place] [address] Apr, [facility] [address] [id number] [address] [place] [address], [place] [address] Apr, [facility] [address] [id number] [address] [place] [address], [place] [address] Apr, [facility] [address] [id number] [address] [place] [address], [place] [address] Apr, [facility] [address] [id number] [address] [place] [address], [place] [address] Apr, [facility] [address] [id number] [facility] [place] [address] Apr, [facility] [address] [id number] [address] [place] [address], [place] [address] Apr, [facility] [address] [id number] [address] [place] [address], [place] [address] Apr, [facility] [address] [id number] [address] [place] [address], [place] [address] Apr, [facility] [address] [id number] [address] [place] [address], [place] [address] March, [facility] [address] [id number] [address] [place] [address], [place] [id number] March, [facility] [address] [address] [id number] [address] [place] [address], [place] [address] March, [facility] [address] [id number] [address] [place] [address], [place] [address] March, [facility] [address] [id number] [address] [place] [address], [place] [address] March, [facility] [address] [id number] [address] [place] [address], [place] [address] March, [facility] [address] [id number] [address] [place] [address], [place] [address] March, [facility] [address] [id number] [address] [place] [address], [place] [address] March, [facility] [address] [id number] [address] [place] [address], [place] [address] March, [facility] [address] [id number] [address] [place] [address], [place] [address] March, [facility] [address] [id number] [address] [place] [address], [place] [address] Feb, [facility] [address] [id number] [facility] [place] [address] 29 Feb, 2014 [facility] [address] [id number] [facility] [place] [address] Feb, [facility] [address] [id number] [facility] [place] [address] Feb, [facility] [address] [id number] [address] [place] [address], [place] [address] Feb, [facility] [address] [id number] [address] [place] [address], [place] [address] Feb, [facility] [address] [id number] [address] [place] [address], [place] [address] Feb, [facility] [address] [id number] [address] [place] [address], [place] [address] Feb, [facility] [address] [id number] [address] [place] [address], [place] [address] Jan, [facility] [address] [id number] [address] [place] [address], [place] [address] 18 Jan, 2014 [facility] [address] [id number] [address] [place] [address], [place] [address] Jan, [facility] [address] [id number] [address] [place] [address], [place] [address] 18 Jan, 2014 [facility] [address] [id number] [address] [place] [address], [place] [address] Jan, [facility] [address] [id number] [address] [place] [address], [place] [address] Jan, [facility] [address] [id number] [address] [place] [address], [place] [address] Jan, [facility] [address] [id number] [address] [place] [address], [place] [address] Jan, [facility] [address] [id number] [address] [place] [address], [place] [address] Jan, [facility] [address] [id number] [address] [place] [address], [place] [address] Jan, [facility] [address] [id number] [address] [place] [address], [place] [address] Dec, [facility] [address] [id number] [address] [place] [address], [place] [address] Dec, [facility] [address] [id number] [address] [place] [address], [place] [address] Nov, [facility] [address] [id number] [address] [place] [address], [place] [address] Nov, [facility] [address] [id number] [address] [place] [address], [place] [address] Nov, [facility] [address] [id number] [address] [place] [address], [place] [address] Nov, [facility] [address] [id number] [address] [place] [address], [place] [address] Nov, [facility] [address] [id number] [address] [place] [address], [place] [address] Nov, [facility] [address] [id number] [address] [place] [address], [place] [address] Nov, [facility] [address] [id number] [address] [place] [address], [place] [address] Nov, [facility] [address] [id number] [address] [place] [address], [place] [address] Oct, [facility] [address] [id number] [address] [place] [address], [place] [address] Oct, [facility] [address] [id number] [address] [place] [address], [place] [address] Oct, [facility] [address] [id number] [address] [place] [address], [place] [address] Oct, [facility] [address] [id number] [address] [place] [address], [place] [address] Oct, [facility] [address] [id number] [address] [place] [address], [place] [address] Oct, [facility] [address] [id number] [address] [place] [address], [place] [address] Sep, [facility] [address] [id number] [address] [place] [address], [place] [address] Sep, [facility] [address] [id number] [address] [place] [address], [place] [address] Sep, [facility] [address] [id number] [address] [place] [address], [place] [address] Sep, [facility] [address] [id number] [address] [place] [address], [place] [address] Sep, [facility] [address] [id number] [address] [place] [address], [place] [address] Aug, [facility] [address] [id number] [address] [place] [address], [place] [address] Aug, [facility] [address] [id number] [address] [place] [address], [place] [address] Aug, [facility] [address] [id number] [address] [place] [address], [place] [address] Aug, [facility] [address] [id number] [address] [place] [address], [place] [address] Aug, [facility] [address] [id number] [address] [place] [address] Aug, [facility] [address] [id number] [address] [place] [address], [place] [address] Jul, [facility] [address] [id number] [address] [place] [address], [place] [address] Jul, [facility] [address] [id number] [address] [place] [address] Jul, [facility] [address] [id number] [address] [place] [address], [place] [address] Jun, [facility] [address] [id number] [address] [place] [address], [place] [address] Jun, [facility] [address] [id number] [address] [place] [address], [place] [address] May, [facility] [address] [id number] [address] [place] [address], [place] [address] May, [facility] [address] [id number] [address] [place] [address], [place] [address] Apr, [facility] [address] [id number] [address] [place] [address], [place] [address] Apr, [facility] [address] [id number] [address] [place] [address], [place] [address] Apr, [facility] [address] [id number] [address] [place] [address], [place] [address] March, [facility] [address] [id number] [address] [place] [address], [place] [address] Feb, [facility] [address] [id number] [address] [place] [address], [place] [address] Feb, [facility] [address] [id number] [address] [place] [address], [place] [address] Jan, [facility] [address] [id number] [address] [place] [address], [place] [address] Jan, [facility] [address] [id number] [address] [place] [address], [place] [address] Jan, [facility] [address] [id number] [address] [place] [address], [place] [address] 08 Jan, 2013 [facility] [address] [id number] [address] [place] [address], [place] [address] 06 Jan, 2013 [facility] [address] [id number] [address] [place] [address], [place] [address] Dec, [facility] [address] [id number] [address] [place] [address], [place] [address] Dec, [facility] [address] [id number] [address] [place] [address], [place] [address] Dec, [facility] [address] [id number] [address] [place] [address], [place] [address] Dec, [facility] [address] [id number] [address] [place] [address], [place] [address] Dec, [facility] [address] [id number] [address] [place] [address], [place] [address] Dec, [facility] [address] [place] [id number] Nov, [facility] [address] [id number] [address] [place] [address], [place] [address] Nov, [facility] [address] [id number] [address] [place] [address], [place] [address] Nov, [facility] [address] [id number] [address] [place] [address], [place] [address] Nov, [facility] [address] [id number] [address] [place] [address], [place] [address] Nov, [facility] [address] [id number] [address] [place] [address], [place] [address] Oct, [facility] [address] [id number] [address] [place] [address], [place] [address] Oct, [facility] [address] [id number] [address] [place] [address], [place] [address] Oct, [facility] [address] [id number] [address] [place] [address], [place] [address] Oct, [facility] [address] [id number] [address] [place] [address], [place] [address] Oct, [facility] [address] [id number] [address] [place] [address], [place] [address] Oct, [facility] [address] [id number] [address] [place] [address], [place] [address] Oct, [facility] [address] [id number] [address] [place] [address], [place] [address] Oct, [facility] [address] [id number] [address] [place] [address], [place] [address] Sep, [facility] [address] [id number] [address] [place] [address], [place] [address] Sep, [facility] [address] [id number] [address] [place] [address], [place] [address] Sep, [facility] [address] [id number] [address] [place] [address], [place] [address] Sep, [facility] [address] [id number] [address] [place] [address], [place] [address] Sep, [facility] [address] [id number] [address] [place] [address], [place] [address] Sep, [facility] [address] [id number] [address] [place] [address], [place] [address] Sep, [facility] [address] [id number] [address] [place] [address], [place] [address] Sep, [facility] [address] [id number] [address] [place] [address], [place] [address] Sep, [facility] [address] [id number] [address] [place] [address], [place] [address] Sep, [facility] [address] [id number] [address] [place] [address], [place] [address] Sep, [facility] [address] [id number] [address] [place] [address], [place] [address] Sep, [facility] [address] [id number] [address] [place] [address], [place] [address] Sep, [facility] [address] [facility] [id number] [address] [place] [address] Sep, [facility] [address] [facility] [id number] [address] [place] [address] Sep, [facility] [address] [facility] [id number] [address] [place] [address] Sep, IMMUNIZATIONS No Known Immunizations SOCIAL HISTORY Never Assessed REASON FOR VISIT Upload PLAN OF CARE VITAL SIGNS MEDICATIONS Unknown Medications RESULTS No Results PROCEDURES No Known procedures INSTRUCTIONS MEDICATIONS ADMINISTERED No Known Medications MEDICAL (GENERAL) HISTORY Type Description Date Medical History hypertension Medical History type I diabetes Medical History chronic renal insufficiency Surgical History gastric pacemaker 2008 Hospitalization History nausea 2012
--- OUTSIDE RECORDS SUMMARY | 2020-04-17 21:43 | XMS REPORT ---
Author Author Curt PATIÑO Organization [facility] Address [address] [place] [address] Care Team Providers Care Scaler Name Role Phone BISMARK PATIÑO Unavailable PROBLEMS Type Condition ICD9-CM Code UDW78-DV Code Onset Dates Condition S tatus SNOMED Code Problem Hypertension, essential I10 Active 35238810 Problem Mood disorder F39 Active 194172 05 Problem Chronic fatigue R53.82 Active 8422 9001 Problem Type 1 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 Active 23781024 Problem Type 1 diabetes mellitus with other diab etic neurological complication E10.49 Active 03379095 Problem Gastroparesis K31.84 Active 890025 006 Problem Type 1 diabetes mellitus with hyperglycemia E10.65 Active [id number] Problem 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 Active 01952913 ALLERGIES No Information ENCOUNTERS Encounter Location Date Diagnosis [facility] [address] [facility] [id number] [address] [place] [address] Jun, [facility] [address] [facility] [id number] [address] [place] [address] Jun, Type 1 diabetes mellitus wit h other diabetic neurological complication E10.49 and Chronic fatigue R53.82 [facility] [address] [facility] [id number] [address] [place] [address] May, Type 1 diabetes mellitus wit h other diabetic neurological complication E10.49 [facility] [address] [facility] [id number] [address] [place] [address] May, [facility] [address] [facility] [id number] [address] [place] [address] May, [facility] [address] [facility] [id number] [address] [place] [address] Apr, [facility] [address] [facility] [id number] [address] [place] [phone] Apr, Type 1 diabetes mellitus wit h other diabetic neurological complication E10.49 [facility] [address] [facility] [id number] [address] [place] [address] March, [facility] [address] [facility] [id number] [address] [place] [address] Feb, [facility] [address] [facility] [id number] [address] [place] [address] Feb, Type 1 diabetes mellitus wit h other diabetic neurological complication E10.49 ; Tobacco abuse Z72.0 and Tobacco abuse counseling Z71.6 [facility] [address] [facility] [id number] [address] [place] [address] Jan, Type 1 diabetes mellitus wit h hyperglycemia E10.65 [facility] [address] [facility] [id number] [address] [place] [address] Jan, [facility] [address] [facility] [id number] [address] [place] [address] Dec, Tobacco abuse Z72.0 [facility] [address] [facility] [id number] [address] [place] [phone] Dec, Type 1 diabetes mellitus wit h hyperglycemia E10.65 [facility] [address] [facility] [id number] [address] [place] [address] Dec, Type 1 diabetes mellitus wit h hyperglycemia E10.65 ; Tobacco abuse Z72.0 and Tobacco abuse counseling Z71.6 [facility] [address] [facility] [id number] [address] [place] [address] Nov, Type 1 diabetes mellitus wit h hyperglycemia E10.65 [facility] [address] [facility] [id number] [address] [place] [address] Oct, Type 1 diabetes mellitus wit h hyperglycemia E10.65 [facility] [address] [facility] [id number] [address] [place] [address] Oct, Type 1 diabetes mellitus wit h hyperglycemia E10.65 [facility] [address] [facility] [id number] [address] [place] [phone] Sep, Type 1 diabetes mellitus wit h hyperglycemia E10.65 [facility] [address] [facility] [id number] [address] [place] [address] Aug, Type 1 diabetes mellitus wit h hyperglycemia E10.65 [facility] [address] [facility] [id number] [address] [place] [id number] Aug, [facility] [address] [facility] [id number] [address] [place] [address] Aug, Type 1 diabetes mellitus wit h hyperglycemia E10.65 [facility] [address] [facility] [id number] [address] [place] [phone] Aug, Encounter for immunization Z 23 [facility] [address] [facility] [id number] [address] [place] [address] Aug, Type 1 diabetes mellitus wit h hyperglycemia E10.65 [facility] [address] [facility] [id number] [address] [place] [phone] Jul, Type 1 diabetes mellitus wit h hyperglycemia E10.65 [facility] [address] [facility] [id number] [address] [place] [address] Jul, Type 1 diabetes mellitus wit h hyperglycemia E10.65 [facility] [address] [facility] [id number] [address] [place] [phone] May, Type 1 diabetes mellitus wit h hyperglycemia E10.65 [facility] [address] [facility] [id number] [address] [place] [address] May, [facility] [address] [facility] [id number] [address] [place] [address] Apr, [facility] [address] [facility] [id number] [address] [place] [address] Apr, Type 1 diabetes mellitus wit h hyperglycemia E10.65 [facility] [address] [facility] [id number] [address] [place] [address] March, [facility] [address] [id number] [address] [place] [address] March, [facility] [address] [id number] [address] [place] [address] Jan, [facility] [address] [id number] [address] [place] [address] Jan, [facility] [address] [id number] [address] [place] [phone] Jan, Type 1 diabetes mellitus wit h diabetic polyneuropathy E10.42 [facility] [address] [id number] [address] [place] [address] Jan, Type 1 diabetes mellitus wit h hyperglycemia E10.65 ; Excessive cerumen in both ear canals H61.23 and Controlled diabetes mellitus type 1 without complications E10.9 [facility] [address] [id number] [address] [place] [address] Dec, [facility] [address] [id number] [address] [place] [address] Dec, [facility] [address] [facility] [id number] [address] [place] [phone] Dec, [facility] [address] [facility] [id number] [address] [place] [address] Dec, [facility] [address] [facility] [id number] [address] [place] [address] Nov, [facility] [address] [id number] [address] [place] [address] Nov, [facility] [address] [facility] [id number] [address] [place] [phone] Oct, Type 1 diabetes mellitus wit h hyperglycemia E10.65 [facility] [address] [id number] [address] [place] [address] Sep, [facility] [address] [facility] [id number] [address] [place] [phone] Sep, [facility] [address] [id number] [address] [place] [id number] Sep, Controlled diabetes mellitus type 1 without complications E10.9 [facility] [address] [id number] [address] [place] [phone] Sep, [facility] [address] [id number] [address] [place] [id number] Aug, Dental caries K02.9 [facility] [address] [id number] [address] [place] [phone] Aug, Type 1 diabetes mellitus wit h diabetic polyneuropathy E10.42 [facility] [address] [id number] [address] [place] [phone] Aug, [facility] [address] [id number] [address] [place] [phone] Aug, [facility] [address] [id number] [address] [place] [phone] Aug, [facility] [address] [id number] [address] [place] [address] Jul, Type 1 diabetes mellitus wit h hyperglycemia E10.65 [facility] [address] [id number] [address] [place] [phone] Jul, 2016 Type 1 diabetes mellitus wit h hyperglycemia E10.65 ; Tooth pain K08.8 and Encounter for immunization Z23 [facility] [address] [id number] [address] [place] [id number] Jul, 2016 Dental examination Z01.20 [facility] [address] [id number] [address] [place] [phone] 08 Jul, 2016 [facility] [address] [id number] [address] [place] [phone] Jul, [facility] [address] [id number] [address] [place] [address] Jul, [facility] [address] [id number] [address] [place] [address], [place] [address] Jun, [facility] [address] [id number] [address] [place] [address], [place] [address] May, [facility] [address] [id number] [address] [place] [address], [place] [address] Apr, [facility] [address] [id number] [address] [place] [address], [place] [address] Apr, [facility] [address] [id number] [address] [place] [address], [place] [address] Apr, [facility] [address] [id number] [address] [place] [address], [place] [address] March, [facility] [address] [id number] [address] [place] [address], [place] [address] March, [facility] [address] [id number] [address] [place] [address], [place] [address] Feb, [facility] [address] [id number] [address] [place] [address], [place] [address] Feb, [facility] [address] [id number] [address] [place] [address], [place] [address] Feb, Type 1 diabetes mellitus wit h hyperglycemia E10.65 [facility] [address] [id number] [address] [place] [address], [place] [address] Jan, [facility] [address] [id number] [address] [place] [phone] Jan, [facility] [address] [id number] [address] [place] [address], [place] [address] Jan, [facility] [address] [id number] [address] [place] [address], [place] [address] Jan, [facility] [address] [id number] [address] [place] [phone] Dec, [facility] [address] [id number] [address] [place] [id number] Nov, [facility] [address] [id number] [address] [place] [phone] Nov, [facility] [address] [facility] [id number] [address] [place] [phone] Oct, [facility] [address] [facility] [id number] [address] [place] [id number] Oct, Type 1 diabetes mellitus wit h 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 ; Type 1 diabetes mellitus with hyperglycemia E10.65 ; Gastroparesis K31.84 and Esophageal stricture K22.2 [facility] [address] [facility] [id number] [address] [place] [phone] Oct, [facility] [address] [facility] [id number] [address] [place] [phone] Sep, [facility] [address] [facility] [id number] [address] [place] [phone] Sep, Type 1 diabetes mellitus wit other diabetic neurological complication E10.49 [facility] [address] [facility] [id number] [address] [place] [phone] 22 Aug, 2015 Encounter for immunization Z 23 [facility] [address] [facility] [id number] [address] [place] [phone] 19 Aug, 2015 [facility] [address] [facility] [id number] [address] [place] [phone] Aug, [facility] [address] [id number] [address] [place] [phone] Jul, [facility] [address] [id number] [address] [place] [phone] Jul, [facility] [address] [facility] [id number] [address] [place] [phone] Jun, [facility] [address] [facility] [id number] [address] [place] [phone] Jun, [facility] [address] [id number] [address] [place] [phone] Jun, [facility] [address] [id number] [address] [place] [phone] May, [facility] [address] [id number] [address] [place] [phone] May, [facility] [address] [id number] [address] [place] [id number] May, Diabetes type 1, controlled 250.01 [facility] [address] [id number] [address] [place] [phone] May, [facility] [address] [id number] [address] [place] [phone] May, [facility] [address] [id number] [address] [place] [address] [id number] Apr, Dental examination V72.2 [facility] [address] [id number] [address] [place] [phone] Apr, [facility] [address] [id number] [address] [place] [phone] Apr, [facility] [address] [id number] [address] [place] [phone] Apr, [facility] [address] [id number] [address] [place] [address] Apr, [facility] [address] [id number] [address] [place] [phone] Apr, [facility] [address] [id number] [address] [place] [id number] Apr, Dental examination V72.2 [facility] [address] [id number] [address] [place] [phone] Apr, [facility] [address] [id number] [address] [place] [address] Apr, [facility] [address] [id number] [address] [place] [phone] 05 Mar, 2015 Diabetes mellitus type 1 250 .01 [facility] [address] [id number] [address] [place] [address], [place] [address] March, [facility] [address] [id number] [address] [place] [address], [place] [address] 14 Feb, 2015 [facility] [address] [id number] [address] [place] [address], [place] [address] Feb, [facility] [address] [id number] [address] [place] [address], [place] [address] Jan, [facility] [address] [id number] [address] [place] [address], [place] [address] Jan, [facility] [address] [id number] [address] [place] [address], [place] [address] Jan, [facility] [address] [id number] [address] [place] [address], [place] [address] Jan, [facility] [address] [id number] [address] [place] [address], [place] [address] Dec, [facility] [address] [id number] [address] [place] [address], [place] [address] Dec, [facility] [address] [id number] [address] [place] [address], [place] [address] Nov, [facility] [address] [id number] [address] [place] [phone] Nov, [facility] [address] [id number] [address] [place] [address] Nov, [facility] [address] [id number] [address] [place] [address], [place] [address] Nov, [facility] [address] [id number] [address] [place] [address] Nov, [facility] [address] [id number] [address] [place] [address] Nov, [facility] [address] [id number] [address] [place] [address], [place] [address] Nov, [facility] [address] [id number] [address] [place] [address], [place] [address] Oct, [facility] [address] [id number] [address] [place] [address], [place] [address] Oct, [facility] [address] [id number] [address] [place] [address], [place] [address] Sep, [facility] [address] [id number] [address] [place] [address], [place] [address] Aug, [facility] [address] [id number] [address] [place] [address], [place] [address] Aug, [facility] [address] [id number] [address] [place] [address], [place] [address] Aug, [facility] [address] [id number] [address] [place] [address], [place] [address] Aug, [facility] [address] [id number] [address] [place] [address], [place] [address] Aug, [facility] [address] [id number] [address] [place] [address], [place] [address] Aug, [facility] [address] [id number] [address] [place] [phone] Aug, [facility] [address] [id number] [address] [place] [address] Aug, [facility] [address] [id number] [address] [place] [address], [place] [address] Aug, [facility] [address] [id number] [address] [place] [address], [place] [address] Aug, [facility] [address] [id number] [address] [place] [address], [place] [address] Aug, [facility] [address] [id number] [facility] [place] [address] Aug, [facility] [address] [id number] [address] [place] [address], [place] [address] Aug, [facility] [address] [id number] [address] [place] [address], [place] [address] Aug, [facility] [address] [id number] [address] [place] [address], [place] [address] Jul, [facility] [address] [id number] [address] [place] [address], [place] [address] Jul, [facility] [address] [id number] [address] [place] [address], [place] [address] Jul, [facility] [address] [id number] [address] [place] [address], [place] [address] Jul, [facility] [address] [id number] [address] [place] [address], [place] [address] Jun, [facility] [address] [id number] [address] [place] [address], [place] [address] Jun, [facility] [address] [id number] [address] [place] [address], [place] [address] Jun, [facility] [address] [id number] [address] [place] [address], [place] [address] Jun, [facility] [address] [id number] [address] [place] [address], [place] [address] May, [facility] [address] [id number] [address] [place] [address], [place] [address] May, [facility] [address] [id number] [address] [place] [address], [place] [address] May, [facility] [address] [id number] [address] [place] [address], [place] [address] May, [facility] [address] [id number] [address] [place] [address], [place] [address] May, [facility] [address] [id number] [facility] [place] [address] May, 2013 [facility] [address] [id number] [facility] [place] [address] May, [facility] [address] [id number] [address] [place] [address], [place] [address] May, 2013 [facility] [address] [id number] [address] [place] [address], [place] [address] May, 2013 [facility] [address] [id number] [address] [place] [address], [place] [address] May, [facility] [address] [id number] [address] [place] [address], [place] [address] May, [facility] [address] [id number] [address] [place] [address], [place] [address] May, [facility] [address] [id number] [address] [place] [address], [place] [address] May, [facility] [address] [id number] [address] [place] [address], [place] [id number] Apr, [facility] [address] [id number] [address] [place] [address], [place] [address] Apr, [facility] [address] [id number] [address] [place] [address], [place] [address] Apr, [facility] [address] [id number] [address] [place] [address], [place] [address] Apr, [facility] [address] [id number] [address] [place] [address], [place] [address] Apr, [facility] [address] [id number] [address] [place] [address], [place] [address] Apr, [facility] [address] [id number] [address] [place] [address], [place] [address] Apr, [facility] [address] [id number] [address] [place] [address], [place] [address] Apr, [facility] [address] [id number] [facility] [place] [address] Apr, [facility] [address] [id number] [address] [place] [address], [place] [address] Apr, [facility] [address] [id number] [address] [place] [address], [place] [address] Apr, [facility] [address] [id number] [address] [place] [address], [place] [address] Apr, [facility] [address] [id number] [address] [place] [address], [place] [address] Apr, [facility] [address] [id number] [address] [place] [address], [place] [address] Apr, [facility] [address] [id number] [address] [place] [address], [place] [address] March, [facility] [address] [id number] [address] [place] [address], [place] [address] March, [facility] [address] [id number] [address] [place] [address], [place] [address] March, [facility] [address] [id number] [address] [place] [address], [place] [address] March, [facility] [address] [id number] [address] [place] [address], [place] [address] March, [facility] [address] [id number] [address] [place] [address], [place] [address] March, [facility] [address] [id number] [address] [place] [address], [place] [address] March, [facility] [address] [id number] [address] [place] [address], [place] [address] March, [facility] [facility] [address] [id number] [address] [place] [address], [place] [address] March, [facility] [address] [id number] [facility] [place] [address] March, [facility] [address] [id number] [facility] [place] [address] Feb, [facility] [address] [id number] [facility] [place] [address] Feb, [facility] [address] [id number] [address] [place] [address], [place] [address] Feb, [facility] [address] [id number] [address] [place] [address], [place] [address] Feb, [facility] [address] [id number] [address] [place] [address], [place] [address] Feb, [facility] [address] [id number] [address] [place] [address], [place] [address] Feb, [facility] [address] [id number] [address] [place] [address], [place] [address] Feb, [facility] [address] [id number] [address] [place] [address], [place] [address] Feb, [facility] [address] [id number] [address] [place] [address], [place] [address] Jan, [facility] [address] [id number] [address] [place] [address], [place] [address] Jan, [facility] [address] [id number] [address] [place] [address], [place] [address] Jan, [facility] [address] [id number] [address] [place] [address], [place] [address] Jan, [facility] [address] [id number] [address] [place] [address], [place] [address] Jan, [facility] [address] [id number] [address] [place] [address], [place] [address] Jan, [facility] [address] [id number] [address] [place] [address], [place] [address] Jan, [facility] [address] [id number] [address] [place] [address], [place] [address] Jan, [facility] [address] [id number] [address] [place] [address], [place] [address] Jan, [facility] [address] [id number] [address] [place] [address], [place] [address] Jan, [facility] [address] [id number] [address] [place] [address], [place] [address] Dec, [facility] [address] [id number] [address] [place] [address], [place] [address] Dec, [facility] [address] [id number] [address] [place] [address], [place] [address] Nov, [facility] [address] [id number] [address] [place] [address], [place] [address] Nov, [facility] [address] [id number] [address] [place] [address], [place] [address] Nov, [facility] [address] [id number] [address] [place] [address], [place] [address] Nov, [facility] [address] [id number] [address] [place] [address], [place] [address] Nov, [facility] [address] [id number] [address] [place] [address], [place] [address] Nov, [facility] [address] [id number] [address] [place] [address], [place] [address] Nov, [facility] [address] [id number] [address] [place] [address], [place] [address] Nov, [facility] [address] [id number] [address] [place] [address], [place] [address] Oct, [facility] [address] [id number] [address] [place] [address], [place] [address] Oct, [facility] [address] [id number] [address] [place] [address], [place] [address] Oct, [facility] [address] [id number] [address] [place] [address], [place] [address] Oct, [facility] [address] [id number] [address] [place] [address], [place] [address] Oct, [facility] [address] [id number] [address] [place] [address], [place] [address] Oct, [facility] [address] [id number] [address] [place] [address], [place] [address] Sep, [facility] [address] [id number] [address] [place] [address], [place] [address] Sep, [facility] [address] [id number] [address] [place] [address], [place] [address] Sep, [facility] [address] [id number] [address] [place] [address], [place] [address] Sep, [facility] [address] [id number] [address] [place] [address], [place] [address] Sep, [facility] [address] [id number] [address] [place] [address], [place] [address] Aug, [facility] [address] [id number] [address] [place] [address], [place] [address] Aug, [facility] [address] [id number] [address] [place] [address], [place] [address] Aug, [facility] [address] [id number] [address] [place] [address], [place] [address] Aug, [facility] [address] [id number] [address] [place] [address], [place] [address] Aug, [facility] [address] [id number] [address] [place] [address], [place] [address] Aug, [facility] [address] [id number] [address] [place] [address] Jul, [facility] [address] [id number] [address] [place] [address], [place] [address] Jul, [facility] [address] [id number] [address] [place] [address], [place] [address] Jul, [facility] [address] [id number] [address] [place] [address], [place] [address] Jun, [facility] [address] [id number] [address] [place] [address], [place] [address] Jun, [facility] [address] [id number] [address] [place] [address], [place] [address] May, [facility] [address] [id number] [address] [place] [address], [place] [address] May, [facility] [address] [id number] [address] [place] [address], [place] [address] Apr, [facility] [address] [id number] [address] [place] [address], [place] [address] Apr, [facility] [address] [id number] [address] [place] [address], [place] [address] Apr, [facility] [address] [id number] [address] [place] [address], [place] [address] March, [facility] [address] [id number] [address] [place] [address], [place] [address] Feb, [facility] [address] [id number] [address] [place] [address], [place] [address] Feb, [facility] [address] [id number] [address] [place] [address], [place] [address] Jan, [facility] [address] [id number] [address] [place] [address], [place] [address] Jan, [facility] [address] [id number] [address] [place] [address], [place] [address] 13 Jan, 2013 [facility] [address] [id number] [address] [place] [address], [place] [address] Jan, [facility] [address] [id number] [address] [place] [address], [place] [address] Jan, [facility] [address] [id number] [address] [place] [address], [place] [address] Dec, [facility] [address] [id number] [address] [place] [address], [place] [address] Dec, [facility] [address] [id number] [address] [place] [address], [place] [address] Dec, [facility] [address] [id number] [address] [place] [address], [place] [address] Dec, [facility] [address] [id number] [address] [place] [address], [place] [address] Dec, [facility] [address] [id number] [address] [place] [address], [place] [address] Dec, [facility] [address] [place] [id number] Nov, [facility] [address] [id number] [address] [place] [address], [place] [address] Nov, [facility] [address] [id number] [address] [place] [address], [place] [address] Nov, [facility] [address] [id number] [address] [place] [address], [place] [address] Nov, [facility] [address] [id number] [address] [place] [address], [place] [address] Nov, [facility] [address] [id number] [address] [place] [address], [place] [address] Oct, [facility] [address] [id number] [address] [place] [address], [place] [address] Oct, [facility] [address] [id number] [address] [place] [address], [place] [address] Oct, [facility] [address] [id number] [address] [place] [address], [place] [address] 18 Oct, 2012 [facility] [address] [id number] [address] [place] [address], [place] [address] Oct, [facility] [address] [id number] [address] [place] [address], [place] [address] Oct, [facility] [address] [id number] [address] [place] [address], [place] [address] Oct, [facility] [address] [id number] [address] [place] [address], [place] [address] Oct, [facility] [address] [id number] [address] [place] [address], [place] [address] Sep, [facility] [address] [id number] [address] [place] [address], [place] [address] Sep, [facility] [address] [id number] [address] [place] [address], [place] [address] Sep, [facility] [address] [id number] [address] [place] [address], [place] [address] Sep, [facility] [address] [id number] [address] [place] [address], [place] [address] Sep, [facility] [address] [id number] [address] [place] [address], [place] [address] Sep, [facility] [address] [id number] [address] [place] [address], [place] [address] Sep, [facility] [address] [id number] [address] [place] [address], [place] [address] Sep, [facility] [address] [id number] [address] [place] [address], [place] [address] Sep, [facility] [address] [id number] [address] [place] [address], [place] [address] Sep, [facility] [address] [id number] [address] [place] [address], [place] [address] Sep, [facility] [address] [facility] [id number] [address] [place] [address] Sep, [facility] [address] [facility] [id number] [address] [place] [address] Sep, [facility] [address] [facility] [id number] [address] [place] [address] Sep, [facility] [address] [facility] [id number] [address] [place] [address] Sep, [facility] [address] [facility] [id number] [address] [place] [address] Sep, IMMUNIZATIONS No Known Immunizations SOCIAL HISTORY [...]
--- OUTSIDE RECORDS SUMMARY | 2020-04-17 21:43 | XMS REPORT ---
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 Active 16858322 Problem Type 1 diabetes mellitus with hyperglycemia E10.65 Active [id number] Problem Gastroparesis K31.84 Active 007513 006 Problem Hypertension, essential I10 Active 16835595 Problem 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 Active 84622521 Problem Type 1 diabetes mellitus with other diab etic neurological complication E10.49 Active [id number] ALLERGIES No Information ENCOUNTERS Encounter Location Date Diagnosis [facility] [address] [id number] [address] [place] [id number] Jun, [facility] [address] [facility] [id number] [address] [place] [id number] May, Type 1 diabetes mellitus wit h other diabetic neurological complication E10.49 [facility] [address] [facility] [id number] [address] [place] [id number] May, [facility] [address] [id number] [address] [place] [phone] May, [facility] [address] [facility] [id number] [address] [place] [id number] Apr, [facility] [address] [id number] [address] [place] [id number] Apr, Type 1 diabetes mellitus wit h other diabetic neurological complication E10.49 [facility] [address] [id number] [address] [place] [id number] March, [facility] [address] [facility] [id number] [address] [place] [id number] Feb, [facility] [address] [facility] [id number] [address] [place] [phone] Feb, Type 1 diabetes mellitus wit h other diabetic neurological complication E10.49 ; Tobacco abuse Z72.0 and Tobacco abuse counseling Z71.6 [facility] [address] [facility] [id number] [address] [place] [address] Jan, Type 1 diabetes mellitus wit h hyperglycemia E10.65 [facility] [address] [facility] [id number] [address] [place] [id number] Jan, [facility] [address] [facility] [id number] [address] [place] [id number] Dec, Tobacco abuse Z72.0 [facility] [address] [facility] [id number] [address] [place] [address] Dec, Type 1 diabetes mellitus wit h hyperglycemia E10.65 [facility] [address] [facility] [id number] [address] [place] [id number] Dec, Type 1 diabetes mellitus wit h hyperglycemia E10.65 ; Tobacco abuse Z72.0 and Tobacco abuse counseling Z71.6 [facility] [address] [facility] [id number] [address] [place] [address] Nov, Type 1 diabetes mellitus wit h hyperglycemia E10.65 [facility] [address] [facility] [id number] [address] [place] [id number] Oct, Type 1 diabetes mellitus wit h hyperglycemia E10.65 [facility] [address] [facility] [id number] [address] [place] [address] Oct, Type 1 diabetes mellitus wit h hyperglycemia E10.65 [facility] [address] [facility] [id number] [address] [place] [id number] Sep, Type 1 diabetes mellitus wit h hyperglycemia E10.65 [facility] [address] [facility] [id number] [address] [place] [address] Aug, Type 1 diabetes mellitus wit h hyperglycemia E10.65 [facility] [address] [id number] [address] [place] [address] Aug, [facility] [address] [id number] [address] [place] [address] Aug, Type 1 diabetes mellitus wit h hyperglycemia E10.65 [facility] [address] [facility] [id number] [address] [place] [address] Aug, Encounter for immunization Z 23 [facility] [address] [id number] [address] [place] [address] Aug, Type 1 diabetes mellitus wit h hyperglycemia E10.65 [facility] [address] [id number] [address] [place] [id number] Jul, Type 1 diabetes mellitus wit h hyperglycemia E10.65 [facility] [address] [id number] [address] [place] [id number] Jul, Type 1 diabetes mellitus wit h hyperglycemia E10.65 [facility] [address] [id number] [address] [place] [address] May, Type 1 diabetes mellitus wit h hyperglycemia E10.65 [facility] [address] [id number] [address] [place] [address] May, [facility] [address] [id number] [address] [place] [address] Apr, [facility] [address] [id number] [address] [place] [address] Apr, Type 1 diabetes mellitus wit h hyperglycemia E10.65 [facility] [address] [id number] [address] [place] [address] March, [facility] [address] [facility] [id number] [address] [place] [id number] March, [facility] [address] [id number] [address] [place] [address] Jan, [facility] [address] [id number] [address] [place] [address] Jan, [facility] [address] [id number] [address] [place] [address] Jan, Type 1 diabetes mellitus wit h diabetic polyneuropathy E10.42 [facility] [address] [id number] [address] [place] [address] Jan, Type 1 diabetes mellitus wit h hyperglycemia E10.65 ; Excessive cerumen in both ear canals H61.23 and Controlled diabetes mellitus type 1 without complications E10.9 [facility] [address] [id number] [address] [place] [id number] 16 Dec, 2016 [facility] [address] [id number] [address] [place] [id number] Dec, [facility] [address] [id number] [address] [place] [id number] Dec, [facility] [address] [id number] [address] [place] [id number] Dec, [facility] [address] [id number] [address] [place] [address] Nov, [facility] [address] [id number] [address] [place] [address] Nov, [facility] [address] [id number] [address] [place] [address] Oct, Type 1 diabetes mellitus wit h hyperglycemia E10.65 [facility] [address] [id number] [address] [place] [id number] Sep, [facility] [address] [id number] [address] [place] [address] Sep, [facility] [address] [id number] [address] [place] [address] Sep, Controlled diabetes mellitus type 1 without complications E10.9 [facility] [address] [id number] [address] [place] [address] Sep, [facility] [address] [id number] [address] [place] [address] [id number] Aug, Dental caries K02.9 [facility] [address] [id number] [address] [place] [id number] Aug, Type 1 diabetes mellitus wit h diabetic polyneuropathy E10.42 [facility] [address] [id number] [address] [place] [id number] Aug, [facility] [address] [id number] [address] [place] [id number] Aug, [facility] [address] [id number] [address] [place] [id number] Aug, [facility] [address] [facility] [id number] [address] [place] [address] Jul, Type 1 diabetes mellitus wit h hyperglycemia E10.65 [facility] [address] [id number] [address] [place] [address] Jul, Type 1 diabetes mellitus wit h hyperglycemia E10.65 ; Tooth pain K08.8 and Encounter for immunization Z23 [facility] [address] [id number] [address] [place] [address] [id number] 08 Jul, 2016 Dental examination Z01.20 [facility] [address] [id number] [address] [place] [id number] 08 Jul, 2016 [facility] [address] [id number] [address] [place] [id number] Jul, [facility] [address] [id number] [address] [place] [address] Jul, [facility] [address] [facility] [id number] [address] [place] [id number] Jun, [facility] [address] [id number] [address] [place] [address] May, [facility] [address] [id number] [address] [place] [address], [place] [address] Apr, [facility] [address] [id number] [address] [place] [address], [place] [address] Apr, [facility] [address] [id number] [address] [place] [address], [place] [address] Apr, [facility] [address] [id number] [address] [place] [address], [place] [address] March, [facility] [address] [id number] [address] [place] [address], [place] [address] March, [facility] [address] [id number] [address] [place] [address], [place] [address] Feb, [facility] [address] [id number] [address] [place] [address], [place] [address] Feb, [facility] [address] [id number] [address] [place] [address], [place] [address] Feb, Type 1 diabetes mellitus wit h hyperglycemia E10.65 [facility] [address] [id number] [address] [place] [address], [place] [address] Jan, [facility] [address] [id number] [address] [place] [address], [place] [address] Jan, [facility] [address] [id number] [address] [place] [phone] Jan, [facility] [address] [id number] [address] [place] [id number] Jan, [facility] [address] [id number] [address] [place] [address], [place] [address] Dec, [facility] [address] [id number] [address] [place] [address], [place] [address] Nov, [facility] [address] [id number] [address] [place] [phone] Nov, [facility] [address] [id number] [address] [place] [phone] Oct, [facility] [address] [facility] [id number] [address] [place] [address] Oct, Type 1 diabetes mellitus wit h 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 ; Type 1 diabetes mellitus with hyperglycemia E10.65 ; Gastroparesis K31.84 and Esophageal stricture K22.2 [facility] [address] [facility] [id number] [address] [place] [id number] Oct, [facility] [address] [facility] [id number] [address] [place] [phone] Sep, [facility] [address] [facility] [id number] [address] [place] [address] Sep, Type 1 diabetes mellitus wit h other diabetic neurological complication E10.49 [facility] [address] [facility] [id number] [address] [place] [id number] 22 Aug, 2015 Encounter for immunization Z 23 [facility] [address] [facility] [id number] [address] [place] [id number] 19 Aug, 2015 [facility] [address] [facility] [id number] [address] [place] [id number] Aug, [facility] [address] [facility] [id number] [address] [place] [id number] Jul, [facility] [address] [facility] [id number] [address] [place] [id number] Jul, [facility] [address] [facility] [id number] [address] [place] [id number] Jun, [facility] [address] [id number] [address] [place] [phone] Jun, [facility] [address] [facility] [id number] [address] [place] [id number] Jun, [facility] [address] [facility] [id number] [address] [place] [id number] May, [facility] [address] [id number] [address] [place] [id number] May, [facility] [address] [id number] [address] [place] [id number] May, Diabetes type 1, controlled 250.01 [facility] [address] [id number] [address] [place] [id number] May, [facility] [address] [id number] [address] [place] [id number] May, [facility] [address] [id number] [address] [place] [address] [id number] Apr, Dental examination V72.2 [facility] [address] [id number] [address] [place] [phone] Apr, [facility] [address] [id number] [address] [place] [id number] Apr, [facility] [address] [id number] [address] [place] [id number] Apr, [facility] [address] [id number] [address] [place] [address] Apr, [facility] [address] [id number] [address] [place] [id number] Apr, [facility] [address] [id number] [address] [place] [id number] Apr, Dental examination V72.2 [facility] [address] [id number] [address] [place] [id number] Apr, [facility] [address] [id number] [address] [place] [address] Apr, [facility] [address] [id number] [address] [place] [address] March, Diabetes mellitus type 1 250 .01 [facility] [address] [id number] [address] [place] [id number] March, [facility] [address] [id number] [address] [place] [address], [place] [address] 14 Feb, 2015 [facility] [address] [id number] [address] [place] [address], [place] [address] Feb, [facility] [address] [id number] [address] [place] [address], [place] [address] Jan, [facility] [address] [id number] [address] [place] [address], [place] [address] Jan, [facility] [address] [id number] [address] [place] [address], [place] [address] Jan, [facility] [address] [id number] [address] [place] [address], [place] [address] Jan, [facility] [address] [id number] [address] [place] [address], [place] [address] Dec, [facility] [address] [id number] [address] [place] [address], [place] [address] Dec, [facility] [address] [id number] [address] [place] [address], [place] [address] Nov, [facility] [address] [id number] [address] [place] [address], [place] [address] Nov, [facility] [address] [id number] [address] [place] [address], [place] [address] Nov, [facility] [address] [id number] [address] [place] [address], [place] [address] Nov, [facility] [address] [id number] [address] [place] [address], [place] [address] Nov, [facility] [address] [id number] [address] [place] [address], [place] [address] Nov, [facility] [address] [id number] [address] [place] [address], [place] [address] Nov, [facility] [address] [id number] [address] [place] [address] [address] Oct, [facility] [address] [id number] [address] [place] [address], [place] [address] Oct, [facility] [address] [id number] [address] [place] [address], [place] [address] Sep, [facility] [address] [id number] [address] [place] [address], [place] [address] Aug, [facility] [address] [id number] [address] [place] [address], [place] [address] Aug, [facility] [address] [id number] [address] [place] [address], [place] [address] Aug, [facility] [address] [id number] [address] [place] [address], [place] [address] Aug, [facility] [address] [id number] [address] [place] [address], [place] [address] Aug, [facility] [address] [id number] [address] [place] [address], [place] [address] Aug, [facility] [address] [id number] [address] [place] [address], [place] [address] Aug, [facility] [address] [id number] [address] [place] [address] Aug, [facility] [address] [id number] [address] [place] [id number] Aug, [facility] [address] [id number] [address] [place] [id number] Aug, [facility] [address] [id number] [address] [place] [address], [place] [address] Aug, [facility] [address] [id number] [address] [place] [id number] Aug, [facility] [address] [id number] [address] [place] [address] Aug, [facility] [address] [id number] [facility] [address] Aug, [facility] [address] [id number] [address] [place] [address], [place] [address] Jul, [facility] [address] [id number] [address] [place] [address], [place] [address] Jul, [facility] [address] [id number] [address] [place] [address], [place] [address] Jul, [facility] [address] [id number] [address] [place] [address], [place] [address] Jul, [facility] [address] [id number] [address] [place] [address], [place] [address] Jun, [facility] [address] [id number] [address] [place] [address], [place] [address] Jun, [facility] [address] [id number] [address] [place] [address], [place] [address] Jun, [facility] [address] [id number] [address] [place] [address], [place] [address] Jun, [facility] [address] [id number] [address] [place] [address], [place] [address] May, [facility] [address] [id number] [address] [place] [address], [place] [address] May, [facility] [address] [id number] [address] [place] [address], [place] [address] May, [facility] [address] [id number] [address] [place] [address], [place] [address] May, [facility] [address] [id number] [address] [place] [address], [place] [address] May, [facility] [address] [id number] [address] [place] [address], [place] [address] May, [facility] [address] [id number] [address] [place] [address], [place] [address] May, [facility] [address] [id number] [facility] [address] May, 2013 [facility] [address] [id number] [facility] [address] May, [facility] [address] [id number] [address] [place] [address], [place] [address] May, [facility] [address] [id number] [address] [place] [address], [place] [address] May, [facility] [address] [id number] [address] [place] [address], [place] [address] May, [facility] [address] [id number] [address] [place] [address], [place] [address] May, [facility] [address] [id number] [address] [place] [address], [place] [address] Apr, [facility] [address] [id number] [address] [place] [address], [place] [address] Apr, [facility] [address] [id number] [address] [place] [address], [place] [address] Apr, [facility] [address] [id number] [address] [place] [address], [place] [address] Apr, [facility] [address] [id number] [address] [place] [address], [place] [address] Apr, [facility] [address] [id number] [address] [place] [address], [place] [address] Apr, [facility] [address] [id number] [address] [place] [address], [place] [address] Apr, [facility] [address] [id number] [address] [place] [address], [place] [address] Apr, [facility] [address] [id number] [address] [place] [address], [place] [address] Apr, [facility] [address] [id number] [address] [place] [address], [place] [address] Apr, [facility] [address] [id number] [facility] [address] Apr, [facility] [address] [id number] [address] [place] [address], [place] [address] Apr, [facility] [address] [id number] [address] [place] [address], [place] [address] Apr, [facility] [address] [id number] [address] [place] [address], [place] [address] Apr, [facility] [address] [id number] [address] [place] [address], [place] [address] March, [facility] [address] [id number] [address] [place] [address], [place] [address] March, [facility] [address] [id number] [address] [place] [address], [place] [address] March, [facility] [address] [id number] [address] [place] [address], [place] [address] March, [facility] [address] [id number] [address] [place] [address], [place] [address] March, [facility] [address] [id number] [address] [place] [address], [place] [address] March, [facility] [address] [id number] [address] [place] [address], [place] [address] March, [facility] [address] [id number] [address] [place] [address], [place] [address] March, [facility] [address] [id number] [address] [place] [address], [place] [address] March, [facility] [address] [id number] [address] [place] [address], [place] [address] March, [facility] [address] [id number] [address] [place] [address], [place] [address] Feb, [facility] [address] [id number] [facility] [address] 29 Feb, 2014 [facility] [address] [id number] [facility] [address] Feb, [facility] [address] [id number] [facility] [address] Feb, [facility] [address] [id number] [address] [place] [address], [place] [address] Feb, [facility] [address] [id number] [address] [place] [address], [place] [address] Feb, [facility] [address] [id number] [address] [place] [address], [place] [address] Feb, [facility] [address] [id number] [address] [place] [address], [place] [address] Feb, [facility] [address] [id number] [address] [place] [address], [place] [address] Jan, [facility] [address] [id number] [address] [place] [address], [place] [address] 18 Jan, 2014 [facility] [address] [id number] [address] [place] [address], [place] [address] Jan, [facility] [address] [id number] [address] [place] [address], [place] [address] 18 Jan, 2014 [facility] [address] [id number] [address] [place] [address], [place] [address] Jan, [facility] [address] [id number] [address] [place] [address], [place] [address] Jan, [facility] [address] [id number] [address] [place] [address], [place] [address] Jan, [facility] [address] [id number] [address] [place] [address], [place] [address] Jan, [facility] [address] [id number] [address] [place] [address], [place] [address] Jan, [facility] [address] [id number] [address] [place] [address], [place] [address] Jan, [facility] [address] [id number] [address] [place] [address], [place] [address] Dec, [facility] [address] [id number] [address] [place] [address], [place] [address] Dec, [facility] [address] [id number] [address] [place] [address], [place] [address] Nov, [facility] [address] [id number] [address] [place] [address], [place] [address] Nov, [facility] [address] [id number] [address] [place] [address], [place] [address] Nov, [facility] [address] [id number] [address] [place] [address], [place] [address] Nov, [facility] [address] [id number] [address] [place] [address], [place] [address] Nov, [facility] [address] [id number] [address] [place] [address], [place] [address] Nov, [facility] [address] [id number] [address] [place] [address], [place] [address] Nov, [facility] [address] [id number] [address] [place] [address], [place] [address] Nov, [facility] [address] [id number] [address] [place] [address], [place] [address] Oct, [facility] [address] [id number] [address] [place] [address], [place] [address] Oct, [facility] [address] [id number] [address] [place] [address], [place] [address] Oct, [facility] [address] [id number] [address] [place] [address], [place] [address] Oct, [facility] [address] [id number] [address] [place] [address], [place] [address] Oct, [facility] [address] [id number] [address] [place] [address], [place] [address] Oct, [facility] [address] [id number] [address] [place] [address], [place] [address] Sep, [facility] [address] [id number] [address] [place] [address], [place] [address] Sep, [facility] [address] [id number] [address] [place] [address], [place] [address] Sep, [facility] [address] [id number] [address] [place] [address], [place] [address] Sep, [facility] [address] [id number] [address] [place] [address], [place] [address] Sep, [facility] [address] [id number] [address] [place] [address], [place] [address] Aug, [facility] [address] [id number] [address] [place] [address], [place] [address] Aug, [facility] [address] [id number] [address] [place] [address], [place] [address] Aug, [facility] [address] [id number] [address] [place] [address], [place] [address] Aug, [facility] [address] [id number] [address] [place] [address], [place] [address] Aug, [facility] [address] [id number] [address] [place] [address] Aug, [facility] [address] [id number] [address] [place] [address], [place] [address] Jul, [facility] [address] [id number] [address] [place] [address], [place] [address] Jul, [facility] [address] [id number] [address] [place] [address] Jul, [facility] [address] [id number] [address] [place] [address], [place] [address] Jun, [facility] [address] [id number] [address] [place] [address], [place] [address] Jun, [facility] [address] [id number] [address] [place] [address], [place] [address] May, [facility] [address] [id number] [address] [place] [address], [place] [address] May, [facility] [address] [id number] [address] [place] [address], [place] [address] Apr, [facility] [address] [id number] [address] [place] [address], [place] [address] Apr, [facility] [address] [id number] [address] [place] [address], [place] [address] Apr, [facility] [address] [id number] [address] [place] [address], [place] [address] March, [facility] [address] [id number] [address] [place] [address], [place] [address] Feb, [facility] [address] [id number] [address] [place] [address], [place] [address] Feb, [facility] [address] [id number] [address] [place] [address], [place] [address] Jan, [facility] [address] [id number] [address] [place] [address], [place] [address] Jan, [facility] [address] [id number] [address] [place] [address], [place] [address] Jan, [facility] [address] [id number] [address] [place] [address], [place] [address] 08 Jan, 2013 [facility] [address] [id number] [address] [place] [address], [place] [address] 06 Jan, 2013 [facility] [address] [id number] [address] [place] [address], [place] [address] Dec, [facility] [address] [id number] [address] [place] [address], [place] [address] Dec, [facility] [address] [id number] [address] [place] [address], [place] [address] Dec, [facility] [address] [id number] [address] [place] [address], [place] [address] Dec, [facility] [address] [id number] [address] [place] [address], [place] [address] Dec, [facility] [address] [id number] [address] [place] [address], [place] [address] Dec, [facility] [address] [place] [id number] Nov, [facility] [address] [id number] [address] [place] [address], [place] [address] Nov, [facility] [address] [id number] [address] [place] [address], [place] [address] Nov, [facility] [address] [id number] [address] [place] [address], [place] [address] Nov, [facility] [address] [id number] [address] [place] [address], [place] [address] Nov, [facility] [address] [id number] [address] [place] [address], [place] [address] Oct, [facility] [address] [id number] [address] [place] [address], [place] [address] Oct, [facility] [address] [id number] [address] [place] [address], [place] [address] Oct, [facility] [address] [id number] [address] [place] [address], [place] [address] Oct, [facility] [address] [id number] [address] [place] [address], [place] [address] Oct, [facility] [address] [id number] [address] [place] [address], [place] [address] Oct, [facility] [address] [id number] [address] [place] [address], [place] [address] Oct, [facility] [address] [id number] [address] [place] [address], [place] [address] Oct, [facility] [address] [id number] [address] [place] [address], [place] [address] Sep, [facility] [address] [id number] [address] [place] [address], [place] [address] Sep, [facility] [address] [id number] [address] [place] [address], [place] [address] Sep, [facility] [address] [id number] [address] [place] [address], [place] [address] Sep, [facility] [address] [id number] [address] [place] [address], [place] [address] Sep, [facility] [address] [id number] [address] [place] [address], [place] [address] Sep, [facility] [address] [id number] [address] [place] [address], [place] [address] Sep, [facility] [address] [id number] [address] [place] [address], [place] [address] Sep, [facility] [address] [id number] [address] [place] [address], [place] [address] Sep, [facility] [address] [id number] [address] [place] [address], [place] [address] Sep, [facility] [address] [id number] [address] [place] [address], [place] [address] Sep, [facility] [address] [id number] [address] [place] [address], [place] [address] Sep, [facility] [address] [id number] [address] [place] [address], [place] [address] Sep, [facility] [address] [facility] [id number] [address] [place] [address] Sep, [facility] [address] [facility] [id number] [address] [place] [address] Sep, [facility] [address] [facility] [id number] [address] [place] [address] Sep, IMMUNIZATIONS No Known Immunizations SOCIAL HISTORY [...]
--- OUTSIDE RECORDS SUMMARY | 2020-04-17 21:44 | XMS REPORT ---
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 Active 13798168 Problem Type 1 diabetes mellitus with hyperglycemia E10.65 Active 021254358140436 Problem Gastroparesis K31.84 Active 187914 006 Problem Hypertension, essential I10 Active 25345466 Problem 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 Active 34082803 Problem Type 1 diabetes mellitus with other diab etic neurological complication E10.49 Active 89035429 ALLERGIES No Information ENCOUNTERS Encounter Location Date Diagnosis [facility] [id number] [place] [address] May, [facility] [address] [place] [place] [id number] [address] [place] [address] Apr, [facility] [address] [id number] [address] [place] [address] Apr, Type 1 diabetes mellitus wit h other diabetic neurological complication E10.49 [facility] [address] [id number] [address] [place] [address] March, [facility] [address] [id number] [address] [place] [address] Feb, [facility] [address] [id number] [address] [place] [address] Feb, Type 1 diabetes mellitus wit h other diabetic neurological complication E10.49 ; Tobacco abuse Z72.0 and Tobacco abuse counseling Z71.6 [place] [id number] [place] [id number] [place] [address] Jan, Type 1 diabetes mellitus wit h hyperglycemia E10.65 [facility] [address] [facility] [id number] [address] [place] [address] Jan, [facility] [address] [facility] [id number] [address] [place] [address] Dec, Tobacco abuse Z72.0 [facility] [address] [facility] [id number] [address] [place] [address] Dec, Type 1 diabetes mellitus wit h hyperglycemia E10.65 [facility] [address] [facility] [id number] [address] [place] [address] Dec, Type 1 diabetes mellitus wit h hyperglycemia E10.65 ; Tobacco abuse Z72.0 and Tobacco abuse counseling Z71.6 [facility] [address] [facility] [id number] [address] [place] [address] Nov, Type 1 diabetes mellitus wit h hyperglycemia E10.65 [facility] [address] [facility] [id number] [address] [place] [address] Oct, Type 1 diabetes mellitus wit h hyperglycemia E10.65 [facility] [address] [facility] [id number] [address] [place] [address] Oct, Type 1 diabetes mellitus wit h hyperglycemia E10.65 [facility] [address] [facility] [id number] [address] [place] [address] Sep, Type 1 diabetes mellitus wit h hyperglycemia E10.65 [facility] [address] [facility] [id number] [address] [place] [address] Aug, Type 1 diabetes mellitus wit h hyperglycemia E10.65 [facility] [address] [facility] [id number] [address] [place] [address] Aug, [facility] [address] [facility] [id number] [address] [place] [address] Aug, Type 1 diabetes mellitus wit h hyperglycemia E10.65 [facility] [address] [facility] [id number] [address] [place] [address] Aug, Encounter for immunization Z 23 [facility] [address] [id number] [address] [place] [address] Aug, Type 1 diabetes mellitus wit h hyperglycemia E10.65 [facility] [address] [facility] [id number] [address] [place] [address] Jul, Type 1 diabetes mellitus wit h hyperglycemia E10.65 [facility] [address] [id number] [address] [place] [address] Jul, Type 1 diabetes mellitus wit h hyperglycemia E10.65 [facility] [address] [facility] [id number] [address] [place] [address] May, Type 1 diabetes mellitus wit h hyperglycemia E10.65 [facility] [address] [facility] [id number] [address] [place] [address] May, [facility] [address] [facility] [id number] [address] [place] [address] Apr, [facility] [address] [facility] [id number] [address] [place] [address] Apr, Type 1 diabetes mellitus wit h hyperglycemia E10.65 [facility] [address] [facility] [id number] [address] [place] [address] March, [facility] [address] [facility] [id number] [address] [place] [address] March, [facility] [address] [facility] [id number] [address] [place] [address] Jan, [facility] [address] [id number] [address] [place] [address] Jan, [facility] [address] [facility] [id number] [address] [place] [address] Jan, Type 1 diabetes mellitus wit h diabetic polyneuropathy E10.42 [facility] [address] [id number] [address] [place] [address] Jan, Type 1 diabetes mellitus wit h hyperglycemia E10.65 ; Excessive cerumen in both ear canals H61.23 and Controlled diabetes mellitus type 1 without complications E10.9 [facility] [address] [id number] [address] [place] [address] 16 Dec, 2016 [facility] [address] [id number] [address] [place] [address] Dec, [facility] [address] [id number] [address] [place] [address] Dec, [facility] [address] [id number] [address] [place] [address] Dec, [facility] [address] [id number] [address] [place] [address] Nov, [facility] [address] [id number] [address] [place] [address] Nov, [facility] [address] [facility] [id number] [address] [place] [address] Oct, Type 1 diabetes mellitus wit h hyperglycemia E10.65 [facility] [address] [id number] [address] [place] [address] Sep, [facility] [address] [facility] [id number] [address] [place] [address] Sep, [facility] [address] [facility] [id number] [address] [place] [address] Sep, Controlled diabetes mellitus type 1 without complications E10.9 [facility] [address] [id number] [address] [place] [address] Sep, [facility] [address] [id number] [address] [place] [id number] Aug, Dental caries K02.9 [facility] [address] [facility] [id number] [address] [place] [address] 10 Aug, 2016 Type 1 diabetes mellitus wit h diabetic polyneuropathy E10.42 [facility] [address] [id number] [address] [place] [address] Aug, [facility] [address] [id number] [address] [place] [address] Aug, [facility] [address] [id number] [address] [place] [address] Aug, [facility] [address] [id number] [address] [place] [address] Jul, Type 1 diabetes mellitus wit h hyperglycemia E10.65 [facility] [address] [id number] [address] [place] [address] Jul, Type 1 diabetes mellitus wit h hyperglycemia E10.65 ; Tooth pain K08.8 and Encounter for immunization Z23 [facility] [address] [id number] [address] [place] [id number] Jul, 2016 Dental examination Z01.20 [facility] [address] [id number] [address] [place] [address] Jul, [facility] [address] [id number] [address] [place] [address] Jul, [facility] [address] [id number] [address] [place] [address] Jul, [facility] [address] [id number] [address] [place] [address] Jun, [facility] [address] [id number] [address] [place] [address] May, [facility] [address] [id number] [address] [place] [address] Apr, [facility] [address] [id number] [address] [place] [address] Apr, [facility] [address] [id number] [address] [place] [address] Apr, [facility] [address] [id number] [address] [place] [address] March, [facility] [address] [id number] [address] [place] [address] March, [facility] [address] [id number] [address] [place] [address] Feb, [facility] [address] [id number] [address] [place] [address] Feb, [facility] [address] [id number] [address] [place] [address] Feb, Type 1 diabetes mellitus wit h hyperglycemia E10.65 [facility] [address] [id number] [address] [place] [address] Jan, [facility] [address] [id number] [address] [place] [address] Jan, [facility] [address] [facility] [id number] [address] [place] [address] Jan, [facility] [address] [id number] [address] [place] [address] Jan, [facility] [address] [facility] [id number] [address] [place] [address] Dec, [facility] [address] [id number] [address] [place] [address] Nov, [facility] [address] [id number] [address] [place] [address] Nov, [facility] [address] [id number] [address] [place] [address] Oct, [facility] [address] [facility] [id number] [address] [place] [address] 04 Oct, 2015 Type 1 diabetes mellitus wit h 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 ; Type 1 diabetes mellitus with hyperglycemia E10.65 ; Gastroparesis K31.84 and Esophageal stricture K22.2 [facility] [address] [id number] [address] [place] [address] Oct, [facility] [address] [id number] [address] [place] [address] Sep, [facility] [address] [id number] [address] [place] [id number] Sep, Type 1 diabetes mellitus wit h other diabetic neurological complication E10.49 [facility] [address] [id number] [address] [place] [address] Aug, Encounter for immunization Z 23 [facility] [address] [id number] [address] [place] [id number] Aug, [facility] [address] [id number] [address] [place] [address] Aug, [facility] [address] [id number] [address] [place] [address] Jul, [facility] [address] [id number] [address] [place] [address] Jul, [facility] [address] [id number] [address] [place] [address] Jun, [facility] [address] [id number] [address] [place] [id number] Jun, [facility] [address] [id number] [address] [place] [address] Jun, [facility] [address] [id number] [address] [place] [address] May, [facility] [address] [id number] [address] [place] [id number] May, [facility] [address] [id number] [address] [place] [address] May, Diabetes type 1, controlled 250.01 [facility] [address] [id number] [address] [place] [address] May, [facility] [address] [id number] [address] [place] [address] May, [facility] [address] [id number] [address] [place] [id number] Apr, Dental examination V72.2 [facility] [address] [id number] [address] [place] [id number] Apr, [facility] [address] [id number] [address] [place] [id number] Apr, [facility] [address] [id number] [address] [place] [id number] Apr, [facility] [address] [id number] [address] [place] [address] Apr, [facility] [address] [id number] [address] [place] [address] Apr, [facility] [address] [id number] [address] [place] [address] [id number] Apr, Dental examination V72.2 [facility] [address] [id number] [address] [place] [address] Apr, [facility] [address] [id number] [address] [place] [address] Apr, [facility] [address] [id number] [address] [place] [address] March, Diabetes mellitus type 1 250 .01 [facility] [address] [id number] [address] [place] [address] March, [facility] [address] [id number] [address] [place] [address] Feb, [facility] [address] [id number] [address] [place] [id number] Feb, [facility] [address] [id number] [address] [place] [address] Jan, [facility] [address] [id number] [address] [place] [address] Jan, [facility] [address] [id number] [address] [place] [address], [place] [address] Jan, [facility] [address] [id number] [address] [place] [address], [place] [address] Jan, [facility] [address] [id number] [address] [place] [address], [place] [address] Dec, [facility] [address] [id number] [address] [place] [address], [place] [address] Dec, [facility] [address] [id number] [address] [place] [address], [place] [address] Nov, [facility] [address] [id number] [address] [place] [address], [place] [address] Nov, [facility] [address] [id number] [address] [place] [address], [place] [address] Nov, [facility] [address] [id number] [address] [place] [address], [place] [address] Nov, [facility] [address] [id number] [address] [place] [address], [place] [address] Nov, [facility] [address] [id number] [address] [place] [address], [place] [address] Nov, [facility] [address] [id number] [address] [place] [address] Nov, [facility] [address] [id number] [address] [place] [address] Oct, [facility] [address] [id number] [address] [place] [address], [place] [address] Oct, [facility] [address] [id number] [address] [place] [address], [place] [address] Sep, [facility] [address] [id number] [address] [place] [address], [place] [address] Aug, [facility] [address] [id number] [address] [place] [address], [place] [address] Aug, [facility] [address] [id number] [address] [place] [address], [place] [address] Aug, [facility] [address] [id number] [address] [place] [address], [place] [address] Aug, [facility] [address] [id number] [address] [place] [address], [place] [address] Aug, [facility] [address] [id number] [address] [place] [address], [place] [address] Aug, [facility] [address] [id number] [address] [place] [address], [place] [address] Aug, [facility] [address] [id number] [address] [place] [address], [place] [address] Aug, [facility] [address] [id number] [address] [place] [address], [place] [address] Aug, [facility] [address] [id number] [address] [place] [address], [place] [address] Aug, [facility] [address] [id number] [address] [place] [address], [place] [address] Aug, [facility] [address] [id number] [address] [place] [address], [place] [address] Aug, [facility] [address] [id number] [address] [place] [address], [place] [address] Aug, 2013 [facility] [address] [id number] [address] [place] [address], [place] [address] Aug, 2013 [facility] [address] [id number] [address] [place] [address], [place] [address] 13 Jul, 2013 [facility] [address] [id number] [address] [place] [address], [place] [address] 13 Jul, 2013 [facility] [address] [id number] [address] [place] [address], [place] [address] Jul, [facility] [address] [id number] [facility] [address] Jul, [facility] [address] [id number] [facility] [address] Jun, [facility] [address] [id number] [facility] [address] Jun, [facility] [address] [id number] [address] [place] [address], [place] [address] Jun, [facility] [address] [id number] [address] [place] [address], [place] [address] Jun, [facility] [address] [id number] [address] [place] [address], [place] [address] May, [facility] [address] [id number] [address] [place] [address], [place] [address] May, [facility] [address] [id number] [address] [place] [address], [place] [address] May, [facility] [address] [id number] [address] [place] [address], [place] [address] May, [facility] [address] [id number] [address] [place] [address], [place] [address] May, [facility] [address] [id number] [address] [place] [address], [place] [address] May, [facility] [address] [id number] [address] [place] [address], [place] [address] May, [facility] [address] [id number] [address] [place] [address], [place] [address] May, [facility] [address] [id number] [address] [place] [address], [place] [address] May, [facility] [address] [id number] [address] [place] [address], [place] [address] May, [facility] [address] [id number] [facility] [address] May, [facility] [address] [id number] [facility] [address] May, [facility] [address] [id number] [facility] [address] May, [facility] [address] [id number] [address] [place] [address], [place] [address] Apr, [facility] [address] [id number] [address] [place] [address], [place] [address] Apr, [facility] [address] [id number] [address] [place] [address], [place] [address] Apr, [facility] [address] [id number] [address] [place] [address], [place] [address] Apr, [facility] [address] [id number] [address] [place] [address], [place] [address] Apr, [facility] [address] [id number] [address] [place] [address], [place] [address] Apr, [facility] [address] [id number] [address] [place] [address], [place] [address] Apr, [facility] [address] [id number] [address] [place] [address], [place] [address] Apr, [facility] [address] [id number] [address] [place] [address], [place] [address] Apr, [facility] [address] [id number] [address] [place] [address], [place] [address] Apr, [facility] [address] [id number] [address] [place] [address], [place] [address] Apr, [facility] [address] [id number] [address] [place] [address], [place] [address] Apr, [facility] [address] [id number] [address] [place] [address], [place] [address] Apr, [facility] [address] [id number] [address] [place] [address], [place] [address] Apr, [facility] [address] [id number] [address] [place] [address], [place] [address] March, [facility] [address] [id number] [address] [place] [address], [place] [address] March, [facility] [address] [id number] [address] [place] [address], [place] [address] March, [facility] [address] [id number] [address] [place] [address], [place] [address] March, [facility] [address] [id number] [address] [place] [address], [place] [address] March, [facility] [address] [id number] [address] [place] [address], [place] [address] March, [facility] [address] [id number] [address] [place] [address], [place] [address] March, [facility] [address] [id number] [address] [place] [address], [place] [address] March, [facility] [address] [id number] [address] [place] [address], [place] [address] March, [facility] [address] [id number] [address] [place] [address], [place] [address] March, [facility] [address] [id number] [address] [place] [address], [place] [address] Feb, [facility] [address] [id number] [address] [place] [address], [place] [address] Feb, [facility] [address] [id number] [address] [place] [address], [place] [address] Feb, [facility] [address] [id number] [address] [place] [address], [place] [address] Feb, [facility] [address] [id number] [address] [place] [address], [place] [address] Feb, [facility] [address] [id number] [facility] [address] Feb, [facility] [address] [id number] [address] [place] [address], [place] [address] Feb, [facility] [address] [id number] [address] [place] [address], [place] [address] Feb, [facility] [address] [id number] [address] [place] [address], [place] [address] Jan, [facility] [address] [id number] [address] [place] [address], [place] [address] Jan, [facility] [address] [id number] [address] [place] [address], [place] [address] Jan, [facility] [address] [id number] [address] [place] [address], [place] [address] Jan, [facility] [address] [id number] [address] [place] [address], [place] [address] Jan, [facility] [address] [id number] [address] [place] [address], [place] [address] Jan, [facility] [address] [id number] [address] [place] [address], [place] [address] Jan, [facility] [address] [id number] [address] [place] [address], [place] [address] Jan, [facility] [address] [id number] [address] [place] [address], [place] [address] Jan, [facility] [address] [id number] [address] [place] [address], [place] [address] Jan, [facility] [address] [id number] [address] [place] [address], [place] [address] Dec, [facility] [address] [id number] [address] [place] [address], [place] [address] Dec, [facility] [address] [id number] [address] [place] [address], [place] [address] Nov, [facility] [address] [id number] [address] [place] [address], [place] [address] Nov, [facility] [address] [id number] [address] [place] [address], [place] [address] Nov, [facility] [address] [id number] [address] [place] [address], [place] [address] Nov, [facility] [address] [id number] [address] [place] [address], [place] [address] Nov, [facility] [address] [id number] [address] [place] [address], [place] [address] Nov, [facility] [address] [id number] [address] [place] [address], [place] [address] Nov, [facility] [address] [id number] [address] [place] [address], [place] [address] Nov, [facility] [address] [id number] [address] [place] [address], [place] [address] Oct, [facility] [address] [id number] [address] [place] [address], [place] [address] Oct, [facility] [address] [id number] [address] [place] [address], [place] [address] Oct, [facility] [address] [id number] [address] [place] [address], [place] [address] Oct, [facility] [address] [id number] [address] [place] [address], [place] [address] Oct, [facility] [address] [id number] [address] [place] [address], [place] [address] Oct, [facility] [address] [id number] [address] [place] [address], [place] [address] Sep, [facility] [address] [id number] [address] [place] [address], [place] [address] Sep, [facility] [address] [id number] [address] [place] [address], [place] [address] Sep, [facility] [address] [id number] [address] [place] [address], [place] [address] Sep, [facility] [address] [id number] [address] [place] [address], [place] [address] Sep, [facility] [address] [id number] [address] [place] [address], [place] [address] Aug, [facility] [address] [id number] [address] [place] [address], [place] [address] Aug, [facility] [address] [id number] [address] [place] [address], [place] [address] Aug, [facility] [address] [id number] [address] [place] [address], [place] [address] Aug, [facility] [address] [id number] [address] [place] [address], [place] [address] Aug, [facility] [address] [id number] [address] [place] [address], [place] [address] Aug, [facility] [address] [id number] [address] [place] [address], [place] [address] Jul, [facility] [address] [id number] [address] [place] [address], [place] [address] Jul, [facility] [address] [id number] [address] [place] [address], [place] [address] Jul, [facility] [address] [id number] [address] [place] [address], [place] [address] Jun, [facility] [address] [id number] [address] [place] [address], [place] [address] Jun, [facility] [address] [id number] [address] [place] [address], [place] [address] May, [facility] [address] [id number] [address] [place] [address] [place] [address] 10 May, 2013 [facility] [address] [id number] [address] [place] [address], [place] [address] 11 Apr, 2013 [facility] [address] [id number] [address] [place] [address], [place] [address] 07 Apr, 2013 [facility] [address] [id number] [address] [place] [address], [place] [address] Apr, [facility] [address] [id number] [address] [place] [address], [place] [address] March, [facility] [address] [id number] [address] [place] [address], [place] [address] Feb, [facility] [address] [id number] [address] [place] [address], [place] [address] Feb, [facility] [address] [id number] [address] [place] [address], [place] [address] Jan, [facility] [address] [id number] [address] [place] [address], [place] [address] Jan, [facility] [address] [id number] [address] [place] [address], [place] [address] Jan, [facility] [address] [id number] [address] [place] [address], [place] [address] Jan, [facility] [address] [id number] [address] [place] [address], [place] [address] Jan, [facility] [address] [id number] [address] [place] [address], [place] [address] Dec, [facility] [address] [id number] [address] [place] [address], [place] [address] Dec, [facility] [address] [id number] [address] [place] [address], [place] [address] 18 Dec, 2012 [facility] [address] [id number] [address] [place] [address], [place] [address] Dec, [facility] [address] [id number] [address] [place] [address], [place] [address] Dec, [facility] [address] [id number] [address] [place] [address], [place] [address] Dec, [facility] [address] [place] [id number] 14 Nov, 2012 [facility] [address] [id number] [address] [place] [address], [place] [address] Nov, [facility] [address] [id number] [address] [place] [address], [place] [address] Nov, [facility] [address] [id number] [address] [place] [address], [place] [address] Nov, [facility] [address] [id number] [address] [place] [address], [place] [address] Nov, [facility] [address] [id number] [address] [place] [address], [place] [address] Oct, [facility] [address] [id number] [address] [place] [address], [place] [address] Oct, [facility] [address] [id number] [address] [place] [address], [place] [address] Oct, [facility] [address] [id number] [address] [place] [address], [place] [address] Oct, [facility] [address] [id number] [address] [place] [address], [place] [address] Oct, [facility] [address] [id number] [address] [place] [address], [place] [address] Oct, [facility] [address] [id number] [address] [place] [address], [place] [address] Oct, [facility] [address] [id number] [address] [place] [address], [place] [address] Oct, [facility] [address] [id number] [address] [place] [address], [place] [address] Sep, [facility] [address] [id number] [address] [place] [address] Sep, [facility] [address] [id number] [address] [place] [address] Sep, [facility] [address] [id number] [address] [place] [address] Sep, [facility] [address] [id number] [address] [place] [address] Sep, [facility] [address] [id number] [address] [place] [address] Sep, [facility] [address] [id number] [address] [place] [address] Sep, [facility] [address] [id number] [address] [place] [address] Sep, [facility] [address] [id number] [address] [place] [address] Sep, [facility] [address] [id number] [address] [place] [address] Sep, [facility] [address] [id number] [address] [place] [address] Sep, [facility] [address] [id number] [address] [place] [address] Sep, [facility] [address] [id number] [address] [place] [address] Sep, [facility] [address] [id number] [address] [place] [address] Sep, [facility] [address] [id number] [address] [place] [address] Sep, [facility] [address] [id number] [address] [place] [address] Sep, IMMUNIZATIONS No Known Immunizations SOCIAL HISTORY [...]
--- OUTSIDE RECORDS SUMMARY | 2020-04-17 21:44 | XMS REPORT ---
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 Operator Name Role Phone BISMARK PATIÑO CP Unavailable Allergies No Known Allergies Problems Problem Type Condition ICD-9 Code Onset Dates Condition Statu s Problem Anxiety state, unspecified 300.00 A ctive Problem Unspecified synovitis and tenosynovitis 727.00 Active Problem Nondependent tobacco use disorder 305.1 Active Problem Fitting and adjustment of vascular catheter V58.81 Active Problem Diabetes type 1, controlled 250.01 Active Problem Diabetes with neurological m anifestations, type I [juvenile type], uncontrolled 250.63 Active Problem Essential hypertension, benign 401.1 Active Problem Gastroparesis 536.3 Active Problem Diabetes with ophthalmic man ifestations, type I [juvenile type], not stated as uncontrolled 250.51 Active Medications No Known Medications Results No Known Results Summary Purpose [employer] Submission
--- OUTSIDE RECORDS SUMMARY | 2020-04-17 21:44 | XMS REPORT ---
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 Name Role Phone BISMARK PATIÑO CP Unavailable Allergies No Known Allergies Problems Problem Type Condition Code Onset Dates Condition Statu s Problem Type 1 diabetes mellitus with other diab etic neurological complication E10.49 Active Problem Gastroparesis K31.84 Active Problem Type 1 diabetes mellitus with diabetic a utonomic (poly)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 Active Problem Hypertension, essential I10 Acti ve Problem Mood disorder F39 Active Medications Medication Code System Code Instructions Start Date End Date Status Dosage NovoLog [facility] [id number] 100 UNIT/ML per insulin pump up to 45 units daily Results No Known Results Summary Purpose [employer] Submission
--- OUTSIDE RECORDS SUMMARY | 2020-04-17 21:44 | XMS REPORT ---
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 Active 18607320 Problem Type 1 diabetes mellitus with hyperglycemia E10.65 Active [id number] Problem Gastroparesis K31.84 Active 268313 006 Problem Hypertension, essential I10 Active 03278664 Problem 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 Active 41936588 Problem Type 1 diabetes mellitus with other diab etic neurological complication E10.49 Active 25216923 ALLERGIES No Information ENCOUNTERS Encounter Location Date Diagnosis [facility] [id number] [place] [address] May, [facility] [address] [place] [id number] [address] [place] [address] Apr, [facility] [address] [id number] [address] [place] [address] Apr, Type 1 diabetes mellitus wit h other diabetic neurological complication E10.49 [facility] [address] [place] [id number] [address] [place] [address] March, [facility] [address] [place] [id number] [address] [place] [address] Feb, [facility] [address] [place] [id number] [address] [place] [address] Feb, Type 1 diabetes mellitus wit h other diabetic neurological complication E10.49 ; Tobacco abuse Z72.0 and Tobacco abuse counseling Z71.6 [place] [address] [place] [id number] [address] [place] [address] Jan, Type 1 diabetes mellitus wit h hyperglycemia E10.65 [facility] [address] [facility] [id number] [address] [place] [address] Jan, [facility] [address] [facility] [id number] [address] [place] [address] Dec, Tobacco abuse Z72.0 [facility] [address] [facility] [id number] [address] [place] [address] Dec, Type 1 diabetes mellitus wit h hyperglycemia E10.65 [facility] [address] [facility] [id number] [address] [place] [address] Dec, Type 1 diabetes mellitus wit h hyperglycemia E10.65 ; Tobacco abuse Z72.0 and Tobacco abuse counseling Z71.6 [facility] [address] [facility] [id number] [address] [place] [address] Nov, Type 1 diabetes mellitus wit h hyperglycemia E10.65 [facility] [address] [facility] [id number] [address] [place] [id number] Oct, Type 1 diabetes mellitus wit h hyperglycemia E10.65 [facility] [address] [facility] [id number] [address] [place] [address] Oct, Type 1 diabetes mellitus wit h hyperglycemia E10.65 [facility] [address] [facility] [id number] [address] [place] [address] Sep, Type 1 diabetes mellitus wit h hyperglycemia E10.65 [facility] [address] [facility] [id number] [address] [place] [address] Aug, Type 1 diabetes mellitus wit h hyperglycemia E10.65 [facility] [address] [facility] [id number] [address] [place] [address] Aug, [facility] [address] [facility] [id number] [address] [place] [address] Aug, Type 1 diabetes mellitus wit h hyperglycemia E10.65 [facility] [address] [facility] [id number] [address] [place] [address] Aug, Encounter for immunization Z 23 [facility] [address] [id number] [address] [place] [address] Aug, Type 1 diabetes mellitus wit h hyperglycemia E10.65 [facility] [address] [facility] [id number] [address] [place] [address] Jul, Type 1 diabetes mellitus wit h hyperglycemia E10.65 [facility] [address] [id number] [address] [place] [address] Jul, Type 1 diabetes mellitus wit h hyperglycemia E10.65 [facility] [address] [facility] [id number] [address] [place] [address] May, Type 1 diabetes mellitus wit h hyperglycemia E10.65 [facility] [address] [facility] [id number] [address] [place] [address] May, [facility] [address] [facility] [id number] [address] [place] [address] Apr, [facility] [address] [facility] [id number] [address] [place] [address] Apr, Type 1 diabetes mellitus wit h hyperglycemia E10.65 [facility] [address] [facility] [id number] [address] [place] [address] March, [facility] [address] [facility] [id number] [address] [place] [address] March, [facility] [address] [facility] [id number] [address] [place] [address] Jan, [facility] [address] [id number] [address] [place] [id number] Jan, [facility] [address] [facility] [id number] [address] [place] [address] Jan, Type 1 diabetes mellitus wit h diabetic polyneuropathy E10.42 [facility] [address] [id number] [address] [place] [address] Jan, Type 1 diabetes mellitus wit h hyperglycemia E10.65 ; Excessive cerumen in both ear canals H61.23 and Controlled diabetes mellitus type 1 without complications E10.9 [facility] [address] [id number] [address] [place] [id number] 16 Dec, 2016 [facility] [address] [id number] [address] [place] [address] Dec, [facility] [address] [id number] [address] [place] [address] Dec, [facility] [address] [id number] [address] [place] [address] Dec, [facility] [address] [id number] [address] [place] [address] Nov, [facility] [address] [id number] [address] [place] [address] Nov, [facility] [address] [facility] [id number] [address] [place] [address] Oct, Type 1 diabetes mellitus wit h hyperglycemia E10.65 [facility] [address] [id number] [address] [place] [address] Sep, [facility] [address] [facility] [id number] [address] [place] [address] Sep, [facility] [address] [facility] [id number] [address] [place] [address] Sep, Controlled diabetes mellitus type 1 without complications E10.9 [facility] [address] [id number] [address] [place] [address] Sep, [facility] [address] [id number] [address] [place] [address] [id number] Aug, Dental caries K02.9 [facility] [address] [facility] [id number] [address] [place] [id number] 10 Aug, 2016 Type 1 diabetes mellitus wit h diabetic polyneuropathy E10.42 [facility] [address] [id number] [address] [place] [address] Aug, [facility] [address] [id number] [address] [place] [address] Aug, [facility] [address] [id number] [address] [place] [address] Aug, [facility] [address] [id number] [address] [place] [address] Jul, Type 1 diabetes mellitus wit h hyperglycemia E10.65 [facility] [address] [id number] [address] [place] [address] Jul, Type 1 diabetes mellitus wit h hyperglycemia E10.65 ; Tooth pain K08.8 and Encounter for immunization Z23 [facility] [address] [id number] [address] [place] [id number] Jul, 2016 Dental examination Z01.20 [facility] [address] [id number] [address] [place] [id number] Jul, [facility] [address] [id number] [address] [place] [id number] Jul, [facility] [address] [id number] [address] [place] [address] Jul, [facility] [address] [id number] [address] [place] [address] Jun, [facility] [address] [id number] [address] [place] [address] May, [facility] [address] [id number] [address] [place] [address] Apr, [facility] [address] [id number] [address] [place] [address] Apr, [facility] [address] [id number] [address] [place] [address] Apr, [facility] [address] [id number] [address] [place] [id number] March, [facility] [address] [id number] [address] [place] [address] March, [facility] [address] [id number] [address] [place] [address] Feb, [facility] [address] [id number] [address] [place] [address] Feb, [facility] [address] [id number] [address] [place] [address] Feb, Type 1 diabetes mellitus wit h hyperglycemia E10.65 [facility] [address] [id number] [address] [place] [id number] Jan, [facility] [address] [id number] [address] [place] [id number] Jan, [facility] [address] [facility] [id number] [address] [place] [address] Jan, [facility] [address] [id number] [address] [place] [id number] Jan, [facility] [address] [facility] [id number] [address] [place] [address] Dec, [facility] [address] [id number] [address] [place] [address] Nov, [facility] [address] [id number] [address] [place] [id number] Nov, [facility] [address] [id number] [address] [place] [address] Oct, [facility] [address] [facility] [id number] [address] [place] [id number] 04 Oct, 2015 Type 1 diabetes mellitus wit h 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 ; Type 1 diabetes mellitus with hyperglycemia E10.65 ; Gastroparesis K31.84 and Esophageal stricture K22.2 [facility] [address] [id number] [address] [place] [id number] Oct, [facility] [address] [id number] [address] [place] [id number] Sep, [facility] [address] [id number] [address] [place] [address] Sep, Type 1 diabetes mellitus wit h other diabetic neurological complication E10.49 [facility] [address] [id number] [address] [place] [address] Aug, Encounter for immunization Z 23 [facility] [address] [id number] [address] [place] [id number] Aug, [facility] [address] [id number] [address] [place] [id number] Aug, [facility] [address] [id number] [address] [place] [id number] Jul, [facility] [address] [id number] [address] [place] [address] Jul, [facility] [address] [id number] [address] [place] [id number] Jun, [facility] [address] [id number] [address] [place] [address] Jun, [facility] [address] [id number] [address] [place] [id number] Jun, [facility] [address] [id number] [address] [place] [address] May, [facility] [address] [id number] [address] [place] [id number] May, [facility] [address] [id number] [address] [place] [id number] May, Diabetes type 1, controlled 250.01 [facility] [address] [id number] [address] [place] [id number] May, [facility] [address] [id number] [address] [place] [address] May, [facility] [address] [id number] [address] [place] [address] [id number] Apr, Dental examination V72.2 [facility] [address] [id number] [address] [place] [id number] Apr, [facility] [address] [id number] [address] [place] [id number] Apr, [facility] [address] [id number] [address] [place] [id number] Apr, [facility] [address] [id number] [address] [place] [id number] Apr, [facility] [address] [id number] [address] [place] [address] Apr, [facility] [address] [id number] [address] [place] [id number] Apr, Dental examination V72.2 [facility] [address] [id number] [address] [place] [id number] Apr, [facility] [address] [id number] [address] [place] [address] Apr, [facility] [address] [id number] [address] [place] [id number] March, Diabetes mellitus type 1 250 .01 [facility] [address] [id number] [address] [place] [id number] March, [facility] [address] [id number] [address] [place] [id number] Feb, [facility] [address] [id number] [address] [place] [id number] Feb, [facility] [address] [id number] [address] [place] [id number] Jan, [facility] [address] [id number] [address] [place] [phone] Jan, [facility] [address] [id number] [address] [place] [address], [place] [address] Jan, [facility] [address] [id number] [address] [place] [address], [place] [address] Jan, [facility] [address] [id number] [address] [place] [address], [place] [address] Dec, [facility] [address] [id number] [address] [place] [address], [place] [address] Dec, [facility] [address] [id number] [address] [place] [address], [place] [address] Nov, [facility] [address] [id number] [address] [place] [address], [place] [address] Nov, [facility] [address] [id number] [address] [place] [address], [place] [address] Nov, [facility] [address] [id number] [address] [place] [address], [place] [address] Nov, [facility] [address] [id number] [address] [place] [address], [place] [address] Nov, [facility] [address] [id number] [address] [place] [address], [place] [address] Nov, [facility] [address] [id number] [address] [place] [id number] Nov, [facility] [address] [id number] [address] [place] [id number] Oct, [facility] [address] [id number] [address] [place] [address], [place] [address] Oct, [facility] [address] [id number] [address] [place] [address], [place] [address] Sep, [facility] [address] [id number] [address] [place] [address], [place] [address] Aug, [facility] [address] [id number] [address] [place] [address], [place] [address] Aug, [facility] [address] [id number] [address] [place] [address], [place] [address] Aug, [facility] [address] [id number] [address] [place] [address], [place] [address] Aug, [facility] [address] [id number] [address] [place] [address], [place] [address] Aug, [facility] [address] [id number] [address] [place] [address], [place] [address] Aug, [facility] [address] [id number] [address] [place] [address], [place] [address] Aug, [facility] [address] [id number] [address] [place] [address], [place] [address] Aug, [facility] [address] [id number] [address] [place] [address], [place] [address] Aug, [facility] [address] [id number] [address] [place] [address], [place] [address] Aug, [facility] [address] [id number] [address] [place] [address], [place] [address] Aug, [facility] [address] [id number] [address] [place] [address], [place] [address] Aug, [facility] [address] [id number] [address] [place] [address], [place] [address] Aug, 2013 [facility] [address] [id number] [address] [place] [address], [place] [address] Aug, 2013 [facility] [address] [id number] [address] [place] [address], [place] [address] 13 Jul, 2013 [facility] [address] [id number] [address] [place] [address], [place] [address] 13 Jul, 2013 [facility] [address] [id number] [address] [place] [address], [place] [address] Jul, [facility] [address] [id number] [facility] [place] [address] Jul, [facility] [address] [id number] [facility] [place] [address] Jun, [facility] [address] [id number] [facility] [place] [address] Jun, [facility] [address] [id number] [address] [place] [address], [place] [address] Jun, [facility] [address] [id number] [address] [place] [address], [place] [address] Jun, [facility] [address] [id number] [address] [place] [address], [place] [address] May, [facility] [address] [id number] [address] [place] [address], [place] [address] May, [facility] [address] [id number] [address] [place] [address], [place] [address] May, [facility] [address] [id number] [address] [place] [address], [place] [address] May, [facility] [address] [id number] [address] [place] [address], [place] [address] May, [facility] [address] [id number] [address] [place] [address], [place] [address] May, [facility] [address] [id number] [address] [place] [address], [place] [address] May, [facility] [address] [id number] [address] [place] [address], [place] [address] May, [facility] [address] [id number] [address] [place] [address], [place] [address] May, [facility] [address] [id number] [address] [place] [address], [place] [address] May, [facility] [address] [id number] [facility] [place] [address] May, [facility] [address] [id number] [facility] [place] [address] May, [facility] [address] [id number] [facility] [place] [address] May, [facility] [address] [id number] [address] [place] [address], [place] [address] Apr, [facility] [address] [id number] [address] [place] [address], [place] [address] Apr, [facility] [address] [id number] [address] [place] [address], [place] [address] Apr, [facility] [address] [id number] [address] [place] [address], [place] [address] Apr, [facility] [address] [id number] [address] [place] [address], [place] [address] Apr, [facility] [address] [id number] [address] [place] [address], [place] [address] Apr, [facility] [address] [id number] [address] [place] [address], [place] [address] Apr, [facility] [address] [id number] [address] [place] [address], [place] [address] Apr, [facility] [address] [id number] [address] [place] [address], [place] [address] Apr, [facility] [address] [id number] [address] [place] [address], [place] [address] Apr, [facility] [address] [id number] [address] [place] [address], [place] [address] Apr, [facility] [address] [id number] [address] [place] [address], [place] [address] Apr, [facility] [address] [id number] [address] [place] [address], [place] [address] Apr, [facility] [address] [id number] [address] [place] [address], [place] [address] Apr, [facility] [address] [id number] [address] [place] [address], [place] [address] March, [facility] [address] [id number] [address] [place] [address], [place] [address] March, [facility] [address] [id number] [address] [place] [address], [place] [address] March, [facility] [address] [id number] [address] [place] [address], [place] [address] March, [facility] [address] [id number] [address] [place] [address], [place] [address] March, [facility] [address] [id number] [address] [place] [address], [place] [address] March, [facility] [address] [id number] [address] [place] [address], [place] [address] March, [facility] [address] [id number] [address] [place] [address], [place] [address] March, [facility] [address] [id number] [address] [place] [address], [place] [address] March, [facility] [address] [id number] [address] [place] [address], [place] [address] March, [facility] [address] [id number] [address] [place] [address], [place] [address] Feb, [facility] [address] [id number] [address] [place] [address], [place] [address] Feb, [facility] [address] [id number] [address] [place] [address], [place] [address] Feb, [facility] [address] [id number] [address] [place] [address], [place] [id number] Feb, [facility] [address] [id number] [address] [place] [address], [place] [address] Feb, [facility] [address] [id number] [facility] [place] [address] Feb, [facility] [address] [id number] [address] [place] [address], [place] [address] Feb, [facility] [address] [id number] [address] [place] [address], [place] [address] Feb, [facility] [address] [id number] [address] [place] [address], [place] [address] Jan, [facility] [address] [id number] [address] [place] [address], [place] [address] Jan, [facility] [address] [id number] [address] [place] [address], [place] [address] Jan, [facility] [address] [id number] [address] [place] [address], [place] [address] Jan, [facility] [address] [id number] [address] [place] [address], [place] [address] Jan, [facility] [address] [id number] [address] [place] [address], [place] [address] Jan, [facility] [address] [id number] [address] [place] [address], [place] [address] Jan, [facility] [address] [id number] [address] [place] [address], [place] [address] Jan, [facility] [address] [id number] [address] [place] [address], [place] [address] Jan, [facility] [address] [id number] [address] [place] [address], [place] [address] Jan, [facility] [address] [id number] [address] [place] [address], [place] [address] Dec, [facility] [address] [id number] [address] [place] [address], [place] [address] Dec, [facility] [address] [id number] [address] [place] [address], [place] [address] Nov, [facility] [address] [id number] [address] [place] [address], [place] [address] Nov, [facility] [address] [id number] [address] [place] [address], [place] [address] Nov, [facility] [address] [id number] [address] [place] [address], [place] [address] Nov, [facility] [address] [id number] [address] [place] [address], [place] [address] Nov, [facility] [address] [id number] [address] [place] [address], [place] [address] Nov, [facility] [address] [id number] [address] [place] [address], [place] [address] Nov, [facility] [address] [id number] [address] [place] [address], [place] [address] Nov, [facility] [address] [id number] [address] [place] [address], [place] [address] Oct, [facility] [address] [id number] [address] [place] [address], [place] [address] Oct, [facility] [address] [id number] [address] [place] [address], [place] [address] Oct, [facility] [address] [id number] [address] [place] [address], [place] [address] Oct, [facility] [address] [id number] [address] [place] [address], [place] [address] Oct, [facility] [address] [id number] [address] [place] [address], [place] [address] Oct, [facility] [address] [id number] [address] [place] [address], [place] [address] Sep, [facility] [address] [id number] [address] [place] [address], [place] [address] Sep, [facility] [address] [id number] [address] [place] [address], [place] [address] Sep, [facility] [address] [id number] [address] [place] [address], [place] [address] Sep, [facility] [address] [id number] [address] [place] [address], [place] [address] Sep, [facility] [address] [id number] [address] [place] [address], [place] [address] Aug, [facility] [address] [id number] [address] [place] [address], [place] [address] Aug, [facility] [address] [id number] [address] [place] [address], [place] [address] Aug, [facility] [address] [id number] [address] [place] [address], [place] [address] Aug, [facility] [address] [id number] [address] [place] [address], [place] [address] Aug, [facility] [address] [id number] [address] [place] [address], [place] [address] Aug, [facility] [address] [id number] [address] [place] [address], [place] [address] Jul, [facility] [address] [id number] [address] [place] [address], [place] [address] Jul, [facility] [address] [id number] [address] [place] [address], [place] [address] Jul, [facility] [address] [id number] [address] [place] [address], [place] [address] Jun, [facility] [address] [id number] [address] [place] [address], [place] [address] Jun, [facility] [address] [id number] [address] [place] [address], [place] [address] May, [facility] [address] [id number] [address] [place] [address] [place] [address] 10 May, 2013 [facility] [address] [id number] [address] [place] [address], [place] [address] 11 Apr, 2013 [facility] [address] [id number] [address] [place] [address], [place] [address] 07 Apr, 2013 [facility] [address] [id number] [address] [place] [address], [place] [address] Apr, [facility] [address] [id number] [address] [place] [address], [place] [address] March, [facility] [address] [id number] [address] [place] [address], [place] [address] Feb, [facility] [address] [id number] [address] [place] [address], [place] [address] Feb, [facility] [address] [id number] [address] [place] [address], [place] [address] Jan, [facility] [address] [id number] [address] [place] [address], [place] [address] Jan, [facility] [address] [id number] [address] [place] [address], [place] [address] Jan, [facility] [address] [id number] [address] [place] [address], [place] [address] Jan, [facility] [address] [id number] [address] [place] [address], [place] [address] Jan, [facility] [address] [id number] [address] [place] [address], [place] [address] Dec, [facility] [address] [id number] [address] [place] [address], [place] [address] Dec, [facility] [address] [id number] [address] [place] [address], [place] [address] 18 Dec, 2012 [facility] [address] [id number] [address] [place] [address], [place] [address] Dec, [facility] [address] [id number] [address] [place] [address], [place] [address] Dec, [facility] [address] [id number] [address] [place] [address], [place] [address] Dec, [facility] [address] [place] [id number] 14 Nov, 2012 [facility] [address] [id number] [address] [place] [address], [place] [address] Nov, [facility] [address] [id number] [address] [place] [address], [place] [address] Nov, [facility] [address] [id number] [address] [place] [address], [place] [address] Nov, [facility] [address] [id number] [address] [place] [address], [place] [address] Nov, [facility] [address] [id number] [address] [place] [address], [place] [address] Oct, [facility] [address] [id number] [address] [place] [address], [place] [address] Oct, [facility] [address] [id number] [address] [place] [address], [place] [address] Oct, [facility] [address] [id number] [address] [place] [address], [place] [address] Oct, [facility] [address] [id number] [address] [place] [address], [place] [address] Oct, [facility] [address] [id number] [address] [place] [address], [place] [address] Oct, [facility] [address] [id number] [address] [place] [address], [place] [address] Oct, [facility] [address] [id number] [address] [place] [address], [place] [address] Oct, [facility] [address] [id number] [address] [place] [address], [place] [address] Sep, [facility] [address] [id number] [address] [place] [address] Sep, [facility] [address] [id number] [address] [place] [address] Sep, [facility] [address] [id number] [address] [place] [id number] Sep, [facility] [address] [id number] [address] [place] [id number] Sep, [facility] [address] [id number] [address] [place] [id number] Sep, [facility] [address] [id number] [address] [place] [id number] Sep, [facility] [address] [id number] [address] [place] [id number] Sep, [facility] [address] [id number] [address] [place] [id number] Sep, [facility] [address] [id number] [address] [place] [id number] Sep, [facility] [address] [id number] [address] [place] [id number] Sep, [facility] [address] [id number] [address] [place] [id number] Sep, [facility] [address] [id number] [address] [place] [id number] Sep, [facility] [address] [id number] [address] [place] [id number] Sep, [facility] [address] [id number] [address] [place] [address] Sep, [facility] [address] [id number] [address] [place] [id number] Sep, IMMUNIZATIONS No Known Immunizations SOCIAL HISTORY Never Assessed REASON FOR VISIT upload PLAN OF CARE VITAL SIGNS MEDICATIONS Medication Instructions Dosage Frequency Start Date End Date Duration S tatus NovoLog 100 UNIT/ML up to 45 units daily Active RESULTS No Results PROCEDURES No Known procedures INSTRUCTIONS MEDICATIONS ADMINISTERED No Known Medications MEDICAL (GENERAL) HISTORY Type Description Date Medical History hypertension Medical History type I diabetes Medical History chronic renal insufficiency Surgical History gastric pacemaker 2008 Hospitalization History nausea 2011
--- OUTSIDE RECORDS SUMMARY | 2020-04-17 21:44 | XMS REPORT ---
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 Active 22903000 Problem Type 1 diabetes mellitus with hyperglycemia E10.65 Active [id number] Problem Gastroparesis K31.84 Active 092878 006 Problem Hypertension, essential I10 Active 01194196 Problem 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 Active 56198384 Problem Type 1 diabetes mellitus with other diab etic neurological complication E10.49 Active [id number] ALLERGIES No Information ENCOUNTERS Encounter Location Date Diagnosis [facility] [id number] [place] [id number] May, [facility] [address] [place] [id number] [address] [place] [address] Apr, [facility] [address] [place] [id number] [address] [place] [address] Apr, Type 1 diabetes mellitus wit h other diabetic neurological complication E10.49 [facility] [address] [place] [id number] [address] [place] [address] March, [facility] [address] [place] [id number] [address] [place] [address] Feb, [facility] [address] [place] [id number] [address] [place] [address] Feb, Type 1 diabetes mellitus wit h other diabetic neurological complication E10.49 ; Tobacco abuse Z72.0 and Tobacco abuse counseling Z71.6 [place] [id number] [place] [id number] [address] [place] [address] Jan, Type 1 diabetes mellitus wit h hyperglycemia E10.65 [facility] [address] [facility] [id number] [address] [place] [address] Jan, [facility] [address] [facility] [id number] [address] [place] [address] Dec, Tobacco abuse Z72.0 [facility] [address] [facility] [id number] [address] [place] [address] Dec, Type 1 diabetes mellitus wit h hyperglycemia E10.65 [facility] [address] [facility] [id number] [address] [place] [address] Dec, Type 1 diabetes mellitus wit h hyperglycemia E10.65 ; Tobacco abuse Z72.0 and Tobacco abuse counseling Z71.6 [facility] [address] [facility] [id number] [address] [place] [address] Nov, Type 1 diabetes mellitus wit h hyperglycemia E10.65 [facility] [address] [facility] [id number] [address] [place] [address] Oct, Type 1 diabetes mellitus wit h hyperglycemia E10.65 [facility] [address] [facility] [id number] [address] [place] [address] Oct, Type 1 diabetes mellitus wit h hyperglycemia E10.65 [facility] [address] [facility] [id number] [address] [place] [address] Sep, Type 1 diabetes mellitus wit h hyperglycemia E10.65 [facility] [address] [facility] [id number] [address] [place] [address] Aug, Type 1 diabetes mellitus wit h hyperglycemia E10.65 [facility] [address] [facility] [id number] [address] [place] [address] Aug, [facility] [address] [facility] [id number] [address] [place] [address] Aug, Type 1 diabetes mellitus wit h hyperglycemia E10.65 [facility] [address] [facility] [id number] [address] [place] [address] Aug, Encounter for immunization Z 23 [facility] [address] [id number] [address] [place] [address] Aug, Type 1 diabetes mellitus wit h hyperglycemia E10.65 [facility] [address] [facility] [id number] [address] [place] [address] Jul, Type 1 diabetes mellitus wit h hyperglycemia E10.65 [facility] [address] [id number] [address] [place] [address] Jul, Type 1 diabetes mellitus wit h hyperglycemia E10.65 [facility] [address] [facility] [id number] [address] [place] [address] May, Type 1 diabetes mellitus wit h hyperglycemia E10.65 [facility] [address] [facility] [id number] [address] [place] [address] May, [facility] [address] [facility] [id number] [address] [place] [address] Apr, [facility] [address] [facility] [id number] [address] [place] [address] Apr, Type 1 diabetes mellitus wit h hyperglycemia E10.65 [facility] [address] [facility] [id number] [address] [place] [address] March, [facility] [address] [facility] [id number] [address] [place] [address] March, [facility] [address] [facility] [id number] [address] [place] [address] Jan, [facility] [address] [id number] [address] [place] [address] Jan, [facility] [address] [facility] [id number] [address] [place] [address] Jan, Type 1 diabetes mellitus wit h diabetic polyneuropathy E10.42 [facility] [address] [id number] [address] [place] [address] Jan, Type 1 diabetes mellitus wit h hyperglycemia E10.65 ; Excessive cerumen in both ear canals H61.23 and Controlled diabetes mellitus type 1 without complications E10.9 [facility] [address] [id number] [address] [place] [address] 16 Dec, 2016 [facility] [address] [id number] [address] [place] [address] Dec, [facility] [address] [id number] [address] [place] [address] Dec, [facility] [address] [id number] [address] [place] [address] Dec, [facility] [address] [id number] [address] [place] [address] Nov, [facility] [address] [id number] [address] [place] [address] Nov, [facility] [address] [facility] [id number] [address] [place] [address] Oct, Type 1 diabetes mellitus wit h hyperglycemia E10.65 [facility] [address] [id number] [address] [place] [address] Sep, [facility] [address] [facility] [id number] [address] [place] [address] Sep, [facility] [address] [facility] [id number] [address] [place] [address] Sep, Controlled diabetes mellitus type 1 without complications E10.9 [facility] [address] [id number] [address] [place] [address] Sep, [facility] [address] [id number] [address] [place] [id number] Aug, Dental caries K02.9 [facility] [address] [facility] [id number] [address] [place] [id number] 10 Aug, 2016 Type 1 diabetes mellitus wit h diabetic polyneuropathy E10.42 [facility] [address] [id number] [address] [place] [address] Aug, [facility] [address] [id number] [address] [place] [address] Aug, [facility] [address] [id number] [address] [place] [address] Aug, [facility] [address] [id number] [address] [place] [address] Jul, Type 1 diabetes mellitus wit h hyperglycemia E10.65 [facility] [address] [id number] [address] [place] [address] Jul, Type 1 diabetes mellitus wit h hyperglycemia E10.65 ; Tooth pain K08.8 and Encounter for immunization Z23 [facility] [address] [id number] [address] [place] [address] [id number] Jul, 2016 Dental examination Z01.20 [facility] [address] [id number] [address] [place] [address] Jul, [facility] [address] [id number] [address] [place] [address] Jul, [facility] [address] [id number] [address] [place] [address] Jul, [facility] [address] [id number] [address] [place] [address] Jun, [facility] [address] [id number] [address] [place] [address] May, [facility] [address] [id number] [address] [place] [address] Apr, [facility] [address] [id number] [address] [place] [address] Apr, [facility] [address] [id number] [address] [place] [address] Apr, [facility] [address] [id number] [address] [place] [id number] March, [facility] [address] [id number] [address] [place] [address] March, [facility] [address] [id number] [address] [place] [address] Feb, [facility] [address] [id number] [address] [place] [address] Feb, [facility] [address] [id number] [address] [place] [address] Feb, Type 1 diabetes mellitus wit h hyperglycemia E10.65 [facility] [address] [id number] [address] [place] [address] Jan, [facility] [address] [id number] [address] [place] [address] Jan, [facility] [address] [facility] [id number] [address] [place] [address] Jan, [facility] [address] [id number] [address] [place] [address] Jan, [facility] [address] [facility] [id number] [address] [place] [address] Dec, [facility] [address] [id number] [address] [place] [address] Nov, [facility] [address] [id number] [address] [place] [address] Nov, [facility] [address] [id number] [address] [place] [address] Oct, [facility] [address] [facility] [id number] [address] [place] [id number] 04 Oct, 2015 Type 1 diabetes mellitus wit h 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 ; Type 1 diabetes mellitus with hyperglycemia E10.65 ; Gastroparesis K31.84 and Esophageal stricture K22.2 [facility] [address] [id number] [address] [place] [address] Oct, [facility] [address] [id number] [address] [place] [address] Sep, [facility] [address] [id number] [address] [place] [address] Sep, Type 1 diabetes mellitus wit h other diabetic neurological complication E10.49 [facility] [address] [id number] [address] [place] [address] Aug, Encounter for immunization Z 23 [facility] [address] [id number] [address] [place] [address] Aug, [facility] [address] [id number] [address] [place] [address] Aug, [facility] [address] [id number] [address] [place] [address] Jul, [facility] [address] [id number] [address] [place] [address] Jul, [facility] [address] [id number] [address] [place] [address] Jun, [facility] [address] [id number] [address] [place] [address] Jun, [facility] [address] [id number] [address] [place] [address] Jun, [facility] [address] [id number] [address] [place] [id number] May, [facility] [address] [id number] [address] [place] [address] May, [facility] [address] [id number] [address] [place] [address] May, Diabetes type 1, controlled 250.01 [facility] [address] [id number] [address] [place] [address] May, [facility] [address] [id number] [address] [place] [address] May, [facility] [address] [id number] [address] [place] [id number] Apr, Dental examination V72.2 [facility] [address] [id number] [address] [place] [id number] Apr, [facility] [address] [id number] [address] [place] [address] Apr, [facility] [address] [id number] [address] [place] [address] Apr, [facility] [address] [id number] [address] [place] [address] Apr, [facility] [address] [id number] [address] [place] [address] Apr, [facility] [address] [id number] [address] [place] [address] [id number] Apr, Dental examination V72.2 [facility] [address] [id number] [address] [place] [phone] Apr, [facility] [address] [id number] [address] [place] [address] Apr, [facility] [address] [id number] [address] [place] [address] March, Diabetes mellitus type 1 250 .01 [facility] [address] [id number] [address] [place] [address] March, [facility] [address] [id number] [address] [place] [address] Feb, [facility] [address] [id number] [address] [place] [address] Feb, [facility] [address] [id number] [address] [place] [address] Jan, [facility] [address] [id number] [address] [place] [phone] Jan, [facility] [address] [id number] [address] [place] [address], [place] [address] Jan, [facility] [address] [id number] [address] [place] [address], [place] [address] Jan, [facility] [address] [id number] [address] [place] [address], [place] [address] Dec, [facility] [address] [id number] [address] [place] [address], [place] [address] Dec, [facility] [address] [id number] [address] [place] [address], [place] [address] Nov, [facility] [address] [id number] [address] [place] [address], [place] [address] Nov, [facility] [address] [id number] [address] [place] [address], [place] [address] Nov, [facility] [address] [id number] [address] [place] [address], [place] [address] Nov, [facility] [address] [id number] [address] [place] [address], [place] [address] Nov, [facility] [address] [id number] [address] [place] [address], [place] [address] Nov, [facility] [address] [id number] [address] [place] [phone] Nov, [facility] [address] [id number] [address] [place] [phone] Oct, [facility] [address] [id number] [address] [place] [address], [place] [address] Oct, [facility] [address] [id number] [address] [place] [address], [place] [address] Sep, [facility] [address] [id number] [address] [place] [address], [place] [address] Aug, [facility] [address] [id number] [address] [place] [address], [place] [address] Aug, [facility] [address] [id number] [address] [place] [address], [place] [address] Aug, [facility] [address] [id number] [address] [place] [address], [place] [address] Aug, [facility] [address] [id number] [address] [place] [address], [place] [address] Aug, [facility] [address] [id number] [address] [place] [address], [place] [address] Aug, [facility] [address] [id number] [address] [place] [address], [place] [address] Aug, [facility] [address] [id number] [address] [place] [address], [place] [address] Aug, [facility] [address] [id number] [address] [place] [address], [place] [address] Aug, [facility] [address] [id number] [address] [place] [address], [place] [address] Aug, [facility] [address] [id number] [address] [place] [address], [place] [address] Aug, [facility] [address] [id number] [address] [place] [address], [place] [address] Aug, [facility] [address] [id number] [address] [place] [address], [place] [address] Aug, 2013 [facility] [address] [id number] [address] [place] [address], [place] [address] Aug, 2013 [facility] [address] [id number] [address] [place] [address], [place] [address] 13 Jul, 2013 [facility] [address] [id number] [address] [place] [address], [place] [address] 13 Jul, 2013 [facility] [address] [id number] [address] [place] [address], [place] [address] Jul, [facility] [address] [id number] [address] [place] [address] Jul, [facility] [address] [id number] [address] [place] [address] Jun, [facility] [address] [id number] [address] [place] [address] Jun, [facility] [address] [id number] [address] [place] [address], [place] [address] Jun, [facility] [address] [id number] [address] [place] [address], [place] [address] Jun, [facility] [address] [id number] [address] [place] [address], [place] [address] May, [facility] [address] [id number] [address] [place] [address], [place] [address] May, [facility] [address] [id number] [address] [place] [address], [place] [address] May, [facility] [address] [id number] [address] [place] [address], [place] [address] May, [facility] [address] [id number] [address] [place] [address], [place] [address] May, [facility] [address] [id number] [address] [place] [address], [place] [address] May, [facility] [address] [id number] [address] [place] [address], [place] [address] May, [facility] [address] [id number] [address] [place] [address], [place] [address] May, [facility] [address] [id number] [address] [place] [address], [place] [address] May, [facility] [address] [id number] [address] [place] [address], [place] [address] May, [facility] [address] [id number] [address] [place] [address] May, [facility] [address] [id number] [address] [place] [address] May, [facility] [address] [id number] [address] [place] [address] May, [facility] [address] [id number] [address] [place] [address], [place] [address] Apr, [facility] [address] [id number] [address] [place] [address], [place] [address] Apr, [facility] [address] [id number] [address] [place] [address], [place] [address] Apr, [facility] [address] [id number] [address] [place] [address], [place] [address] Apr, [facility] [address] [id number] [address] [place] [address], [place] [address] Apr, [facility] [address] [id number] [address] [place] [address], [place] [address] Apr, [facility] [address] [id number] [address] [place] [address], [place] [address] Apr, [facility] [address] [id number] [address] [place] [address], [place] [address] Apr, [facility] [address] [id number] [address] [place] [address], [place] [address] Apr, [facility] [address] [id number] [address] [place] [address], [place] [address] Apr, [facility] [address] [id number] [address] [place] [address], [place] [address] Apr, [facility] [address] [id number] [address] [place] [address], [place] [address] Apr, [facility] [address] [id number] [address] [place] [address], [place] [address] Apr, [facility] [address] [id number] [address] [place] [address], [place] [address] Apr, [facility] [address] [id number] [address] [place] [address], [place] [address] March, [facility] [address] [id number] [address] [place] [address], [place] [address] March, [facility] [address] [id number] [address] [place] [address], [place] [address] March, [facility] [address] [id number] [address] [place] [address], [place] [address] March, [facility] [address] [id number] [address] [place] [address], [place] [address] March, [facility] [address] [id number] [address] [place] [address], [place] [address] March, [facility] [address] [id number] [address] [place] [address], [place] [address] March, [facility] [address] [id number] [address] [place] [address], [place] [address] March, [facility] [address] [id number] [address] [place] [address], [place] [address] March, [facility] [address] [id number] [address] [place] [address], [place] [address] March, [facility] [address] [id number] [address] [place] [address], [place] [address] Feb, [facility] [address] [id number] [address] [place] [address], [place] [address] Feb, [facility] [address] [id number] [address] [place] [address], [place] [address] Feb, [facility] [address] [id number] [address] [place] [address], [place] [address] Feb, [facility] [address] [id number] [address] [place] [address], [place] [address] Feb, [facility] [address] [id number] [address] [place] [address] Feb, [facility] [address] [address] [id number] [address] [place] [address], [place] [address] Feb, [facility] [address] [id number] [address] [place] [address], [place] [address] Feb, [facility] [address] [id number] [address] [place] [address], [place] [address] Jan, [facility] [address] [id number] [address] [place] [address], [place] [address] Jan, [facility] [address] [id number] [address] [place] [address], [place] [address] Jan, [facility] [address] [id number] [address] [place] [address], [place] [address] Jan, [facility] [address] [id number] [address] [place] [address], [place] [address] Jan, [facility] [address] [id number] [address] [place] [address], [place] [address] Jan, [facility] [address] [id number] [address] [place] [address], [place] [address] Jan, [facility] [address] [id number] [address] [place] [address], [place] [address] Jan, [facility] [address] [id number] [address] [place] [address], [place] [address] Jan, [facility] [address] [id number] [address] [place] [address], [place] [address] Jan, [facility] [address] [id number] [address] [place] [address], [place] [address] Dec, [facility] [address] [id number] [address] [place] [address], [place] [address] Dec, [facility] [address] [id number] [address] [place] [address], [place] [address] Nov, [facility] [address] [id number] [address] [place] [address], [place] [address] Nov, [facility] [address] [id number] [address] [place] [address], [place] [address] Nov, [facility] [address] [id number] [address] [place] [address], [place] [address] Nov, [facility] [address] [id number] [address] [place] [address], [place] [address] Nov, [facility] [address] [id number] [address] [place] [address], [place] [address] Nov, [facility] [address] [id number] [address] [place] [address], [place] [address] Nov, [facility] [address] [id number] [address] [place] [address], [place] [address] Nov, [facility] [address] [id number] [address] [place] [address], [place] [address] Oct, [facility] [address] [id number] [address] [place] [address], [place] [address] Oct, [facility] [address] [id number] [address] [place] [address], [place] [address] Oct, [facility] [address] [id number] [address] [place] [address], [place] [address] Oct, [facility] [address] [id number] [address] [place] [address], [place] [address] Oct, [facility] [address] [id number] [address] [place] [address], [place] [address] Oct, [facility] [address] [id number] [address] [place] [address], [place] [address] Sep, [facility] [address] [id number] [address] [place] [address], [place] [address] Sep, [facility] [address] [id number] [address] [place] [address], [place] [address] Sep, [facility] [address] [id number] [address] [place] [address], [place] [address] Sep, [facility] [address] [id number] [address] [place] [address], [place] [address] Sep, [facility] [address] [id number] [address] [place] [address], [place] [address] Aug, [facility] [address] [id number] [address] [place] [address], [place] [address] Aug, [facility] [address] [id number] [address] [place] [address], [place] [address] Aug, [facility] [address] [id number] [address] [place] [address], [place] [address] Aug, [facility] [address] [id number] [address] [place] [address], [place] [address] Aug, [facility] [address] [id number] [address] [place] [address], [place] [address] Aug, [facility] [address] [id number] [address] [place] [address], [place] [address] Jul, [facility] [address] [id number] [address] [place] [address], [place] [address] Jul, [facility] [address] [id number] [address] [place] [address], [place] [address] Jul, [facility] [address] [id number] [address] [place] [address], [place] [address] Jun, [facility] [address] [id number] [address] [place] [address], [place] [address] Jun, [facility] [address] [id number] [address] [place] [address], [place] [address] May, [facility] [address] [id number] [address] [place] [address] [place] [address] 10 May, 2013 [facility] [address] [id number] [address] [place] [address], [place] [address] 11 Apr, 2013 [facility] [address] [id number] [address] [place] [address], [place] [address] 07 Apr, 2013 [facility] [address] [id number] [address] [place] [address], [place] [address] Apr, [facility] [address] [id number] [address] [place] [address], [place] [address] March, [facility] [address] [id number] [address] [place] [address], [place] [address] Feb, [facility] [address] [id number] [address] [place] [address], [place] [address] Feb, [facility] [address] [id number] [address] [place] [address], [place] [address] Jan, [facility] [address] [id number] [address] [place] [address], [place] [address] Jan, [facility] [address] [id number] [address] [place] [address], [place] [address] Jan, [facility] [address] [id number] [address] [place] [address], [place] [address] Jan, [facility] [address] [id number] [address] [place] [address], [place] [address] Jan, [facility] [address] [id number] [address] [place] [address], [place] [address] Dec, [facility] [address] [id number] [address] [place] [address], [place] [address] Dec, [facility] [address] [id number] [address] [place] [address], [place] [address] 18 Dec, 2012 [facility] [address] [id number] [address] [place] [address], [place] [address] Dec, [facility] [address] [id number] [address] [place] [address], [place] [address] Dec, [facility] [address] [id number] [address] [place] [address], [place] [address] Dec, [facility] [address] [place] [id number] 14 Nov, 2012 [facility] [address] [id number] [address] [place] [address], [place] [address] Nov, [facility] [address] [id number] [address] [place] [address], [place] [address] Nov, [facility] [address] [id number] [address] [place] [address], [place] [address] Nov, [facility] [address] [id number] [address] [place] [address], [place] [address] Nov, [facility] [address] [id number] [address] [place] [address], [place] [address] Oct, [facility] [address] [id number] [address] [place] [address], [place] [address] Oct, [facility] [address] [id number] [address] [place] [address], [place] [address] Oct, [facility] [address] [id number] [address] [place] [address], [place] [address] Oct, [facility] [address] [id number] [address] [place] [address], [place] [address] Oct, [facility] [address] [id number] [address] [place] [address], [place] [address] Oct, [facility] [address] [id number] [address] [place] [address], [place] [address] Oct, [facility] [address] [id number] [address] [place] [address], [place] [address] Oct, [facility] [address] [id number] [address] [place] [address], [place] [address] Sep, [facility] [address] [id number] [address] [place] [address] Sep, [facility] [address] [id number] [address] [place] [address] Sep, [facility] [address] [id number] [address] [place] [address] Sep, [facility] [address] [id number] [address] [place] [address] Sep, [facility] [address] [id number] [address] [place] [address] Sep, [facility] [address] [id number] [address] [place] [address] Sep, [facility] [address] [id number] [address] [place] [address] Sep, [facility] [address] [id number] [address] [place] [address] Sep, [facility] [address] [id number] [address] [place] [address] Sep, [facility] [address] [id number] [address] [place] [address] Sep, [facility] [address] [id number] [address] [place] [address] Sep, [facility] [address] [id number] [address] [place] [address] Sep, [facility] [address] [id number] [address] [place] [address] Sep, [facility] [address] [id number] [address] [place] [address] Sep, [facility] [address] [id number] [address] [place] [address] Sep, IMMUNIZATIONS No Known Immunizations SOCIAL HISTORY [...]
--- OUTSIDE RECORDS SUMMARY | 2020-04-17 21:45 | XMS REPORT ---
Author Author Curt PATIÑO Organization [facility] Address [address] [place] [address] Care Team Providers Care Milling/Polishing Operator Name Role Phone BISMARK PATIÑO Unavailable PROBLEMS Type Condition ICD9-CM Code [id number] Code Onset Dates Condition S tatus SNOMED Code Problem Mood disorder F39 Active 973764 05 Problem Type 1 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 Active 28671510 Problem Type 1 diabetes mellitus with hyperglycemia E10.65 Active 098653673503729 Problem Gastroparesis K31.84 Active 414796 006 Problem Hypertension, essential I10 Active 66218585 Problem 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
--- OUTSIDE RECORDS SUMMARY | 2020-04-17 21:45 | XMS REPORT ---
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
--- OUTSIDE RECORDS SUMMARY | 2020-04-17 21:45 | XMS REPORT ---
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 Active 67262182 Problem Type 1 diabetes mellitus with other diab etic neurological complication E10.49 Active 51500312 Problem Mood disorder F39 Active 953496 05 Assessment Dental examination Z01.20 Jul, Active 759226244 Problem Gastroparesis K31.84 Active 972918 006 Problem Hypertension, essential I10 Active 95907706 ALLERGIES Substance Reaction Event Type Date Status Cipro Unknown Drug Allergy Jul, Active Sulfa(sulfonamide Antibiotics) Unknown Non Drug Allergy Jul Active SOCIAL HISTORY No smoking Hx information available PLAN OF CARE VITAL SIGNS Blood pressure systolic 134 mmHg 2016-07-29 Blood pressure diastolic 87 mmHg 2016-07-29 MEDICATIONS Medication Instructions Dosage Frequency Start Date End Date Duration S tatus NovoLog 100 UNIT/ML up to 45 units daily Active Genaro Contour Next Test TEST BLOOD FOUR TIMES A DAY. DIAG. 250.5 0 90 Active Glucagon Emergency 1 MG as directed May, 1 dose Active Diazepam 10 MG Orally 3 times a day 1 tablet 8h Active Enalapril Maleate 10 MG Orally Once a day 1 tablet 24h 30 Active RESULTS No Results PROCEDURES Procedure Date Ordered Related Diagnosis Body Site LTD ORAL EVALUATION - PROBLEM FOCUS Jul 29, 2016 INTRAORL-PERIAPICAL 1 FILM 55156 Jul 29, 2016 BITEWING - SINGLE FILM Jul 29, 2016 IMMUNIZATIONS No Known Immunizations
--- OUTSIDE RECORDS SUMMARY | 2020-04-17 21:45 | XMS REPORT ---
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 Filler Shredding Machine Loader Name Role Phone BISMARK PATIÑO CP Unavailable [...] not stated as uncontrolled 250.51 Active Medications Medication Code System Code Instructions Start Date End Date Status Dosage Diazepam [facility][NOTE 3] [address]-42 10 [address] Or[address] Thr ee times a day Janis to sign in [place]'s absence February 17, 2015 take 1 tablet Results No Known Results Summary Purpose [employer] Submission
--- OUTSIDE RECORDS SUMMARY | 2020-04-17 21:45 | XMS REPORT ---
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 Admiralty Lawyer Name Role Phone BISMARK PATIÑO CP Unavailable Allergies No Known Allergies Problems Problem Type Condition Code Onset Dates Condition Statu s Problem Type 1 diabetes mellitus with hyperglycemia E10.65 Active Problem Type 1 diabetes mellitus with diabetic a utonomic (poly)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 Active Problem Type 1 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 Active Problem Hypertension, essential I10 Acti ve Problem Mood disorder F39 Active Problem Type 1 diabetes mellitus with other diab etic neurological complication E10.49 Active Problem Gastroparesis K31.84 Active Medications Medication Code System Code Instructions Start Date End Date Status Dosage Enalapril Maleate [facility] 14089979598 10 MG TA KE ONE TABLET BY MOUTH ONCE DAILY Diazepam [facility] [address]-98 10 MG Orally 3 times a day 1 tablet Results No Known Results Summary Purpose [employer] Submission
--- OUTSIDE RECORDS SUMMARY | 2020-04-17 21:45 | XMS REPORT ---
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 Meteorological Engineer Name Role Phone BISMARK PATIÑO CP Unavailable [...] Start Date End Date Status Dosage Diazepam [facility] [address]-22 10 MG Orally 3 times a day 1 tablet Results No Known Results Summary Purpose [employer] Submission
--- OUTSIDE RECORDS SUMMARY | 2020-04-17 21:45 | XMS REPORT ---
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 Active 52819647 Problem Type 1 diabetes mellitus with hyperglycemia E10.65 Active 906231695061682 Problem Gastroparesis K31.84 Active 512421 006 Problem Hypertension, essential I10 Active 97059283 Problem 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 Active 83748003 Problem Type 1 diabetes mellitus with other diab etic neurological complication E10.49 Active [id number] ALLERGIES No Information ENCOUNTERS Encounter Location Date Diagnosis [facility] [id number] [place] [phone] May, [facility] [address] [place] [id number] [address] [place] [phone] Apr, [facility] [address] [place] [id number] [address] [place] [phone] Apr, Type 1 diabetes mellitus wit h other diabetic neurological complication E10.49 [facility] [address] [place] [id number] [address] [place] [phone] March, [facility] [address] [place] [id number] [address] [place] [phone] Feb, [facility] [address] [place] [id number] [address] [place] [phone] Feb, Type 1 diabetes mellitus wit h other diabetic neurological complication E10.49 ; Tobacco abuse Z72.0 and Tobacco abuse counseling Z71.6 [place] [address] [place] [id number] [address] [place] [phone] Jan, Type 1 diabetes mellitus wit h hyperglycemia E10.65 [facility] [address] [facility] [id number] [address] [place] [phone] Jan, [facility] [address] [facility] [id number] [address] [place] [phone] Dec, Tobacco abuse Z72.0 [facility] [address] [facility] [id number] [address] [place] [address] Dec, Type 1 diabetes mellitus wit h hyperglycemia E10.65 [facility] [address] [facility] [id number] [address] [place] [address] Dec, Type 1 diabetes mellitus wit h hyperglycemia E10.65 ; Tobacco abuse Z72.0 and Tobacco abuse counseling Z71.6 [facility] [address] [facility] [id number] [address] [place] [phone] Nov, Type 1 diabetes mellitus wit h hyperglycemia E10.65 [facility] [address] [facility] [id number] [address] [place] [address] Oct, Type 1 diabetes mellitus wit h hyperglycemia E10.65 [facility] [address] [facility] [id number] [address] [place] [address] Oct, Type 1 diabetes mellitus wit h hyperglycemia E10.65 [facility] [address] [facility] [id number] [address] [place] [phone] Sep, Type 1 diabetes mellitus wit h hyperglycemia E10.65 [facility] [address] [facility] [id number] [address] [place] [id number] Aug, Type 1 diabetes mellitus wit h hyperglycemia E10.65 [facility] [address] [facility] [id number] [address] [place] [phone] Aug, [facility] [address] [facility] [id number] [address] [place] [address] Aug, Type 1 diabetes mellitus wit h hyperglycemia E10.65 [facility] [address] [facility] [id number] [address] [place] [id number] Aug, Encounter for immunization Z 23 [facility] [address] [id number] [address] [place] [phone] Aug, Type 1 diabetes mellitus wit h hyperglycemia E10.65 [facility] [address] [facility] [id number] [address] [place] [phone] Jul, Type 1 diabetes mellitus wit h hyperglycemia E10.65 [facility] [address] [id number] [address] [place] [id number] Jul, Type 1 diabetes mellitus wit h hyperglycemia E10.65 [facility] [address] [facility] [id number] [address] [place] [address] May, Type 1 diabetes mellitus wit h hyperglycemia E10.65 [facility] [address] [facility] [id number] [address] [place] [phone] May, [facility] [address] [facility] [id number] [address] [place] [phone] Apr, [facility] [address] [facility] [id number] [address] [place] [id number] Apr, Type 1 diabetes mellitus wit h hyperglycemia E10.65 [facility] [address] [facility] [id number] [address] [place] [phone] March, [facility] [address] [facility] [id number] [address] [place] [phone] March, [facility] [address] [facility] [id number] [address] [place] [phone] Jan, [facility] [address] [id number] [address] [place] [phone] Jan, [facility] [address] [facility] [id number] [address] [place] [phone] Jan, Type 1 diabetes mellitus wit h diabetic polyneuropathy E10.42 [facility] [address] [id number] [address] [place] [id number] Jan, Type 1 diabetes mellitus wit h hyperglycemia E10.65 ; Excessive cerumen in both ear canals H61.23 and Controlled diabetes mellitus type 1 without complications E10.9 [facility] [address] [id number] [address] [place] [phone] 16 Dec, 2016 [facility] [address] [id number] [address] [place] [phone] Dec, [facility] [address] [id number] [address] [place] [phone] Dec, [facility] [address] [id number] [address] [place] [phone] Dec, [facility] [address] [id number] [address] [place] [phone] Nov, [facility] [address] [id number] [address] [place] [id number] Nov, [facility] [address] [facility] [id number] [address] [place] [id number] Oct, Type 1 diabetes mellitus wit h hyperglycemia E10.65 [facility] [address] [id number] [address] [place] [phone] Sep, [facility] [address] [facility] [id number] [address] [place] [phone] Sep, [facility] [address] [facility] [id number] [address] [place] [address] Sep, Controlled diabetes mellitus type 1 without complications E10.9 [facility] [address] [id number] [address] [place] [phone] Sep, [facility] [address] [id number] [address] [place] [address] [id number] Aug, Dental caries K02.9 [facility] [address] [facility] [id number] [address] [place] [phone] 10 Aug, 2016 Type 1 diabetes mellitus wit h diabetic polyneuropathy E10.42 [facility] [address] [id number] [address] [place] [phone] Aug, [facility] [address] [id number] [address] [place] [phone] Aug, [facility] [address] [id number] [address] [place] [phone] Aug, [facility] [address] [id number] [address] [place] [id number] Jul, Type 1 diabetes mellitus wit h hyperglycemia E10.65 [facility] [address] [id number] [address] [place] [phone] Jul, Type 1 diabetes mellitus wit h hyperglycemia E10.65 ; Tooth pain K08.8 and Encounter for immunization Z23 [facility] [address] [id number] [address] [place] [address] [id number] Jul, 2016 Dental examination Z01.20 [facility] [address] [id number] [address] [place] [phone] Jul, [facility] [address] [id number] [address] [place] [phone] Jul, [facility] [address] [id number] [address] [place] [phone] Jul, [facility] [address] [id number] [address] [place] [phone] Jun, [facility] [address] [id number] [address] [place] [phone] May, [facility] [address] [id number] [address] [place] [phone] Apr, [facility] [address] [id number] [address] [place] [phone] Apr, [facility] [address] [id number] [address] [place] [phone] Apr, [facility] [address] [id number] [address] [place] [phone] March, [facility] [address] [id number] [address] [place] [phone] March, [facility] [address] [id number] [address] [place] [phone] Feb, [facility] [address] [id number] [address] [place] [id number] Feb, [facility] [address] [id number] [address] [place] [phone] Feb, Type 1 diabetes mellitus wit h hyperglycemia E10.65 [facility] [address] [id number] [address] [place] [phone] Jan, [facility] [address] [id number] [address] [place] [phone] Jan, [facility] [address] [facility] [id number] [address] [place] [phone] Jan, [facility] [address] [id number] [address] [place] [phone] Jan, [facility] [address] [facility] [id number] [address] [place] [phone] Dec, [facility] [address] [id number] [address] [place] [id number] Nov, [facility] [address] [id number] [address] [place] [id number] Nov, [facility] [address] [id number] [address] [place] [phone] Oct, [facility] [address] [facility] [id number] [address] [place] [id number] 04 Oct, 2015 Type 1 diabetes mellitus wit h 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 ; Type 1 diabetes mellitus with hyperglycemia E10.65 ; Gastroparesis K31.84 and Esophageal stricture K22.2 [facility] [address] [id number] [address] [place] [id number] Oct, [facility] [address] [id number] [address] [place] [id number] Sep, [facility] [address] [id number] [address] [place] [id number] Sep, Type 1 diabetes mellitus wit h other diabetic neurological complication E10.49 [facility] [address] [id number] [address] [place] [phone] Aug, Encounter for immunization Z 23 [facility] [address] [id number] [address] [place] [phone] Aug, [facility] [address] [id number] [address] [place] [phone] Aug, [facility] [address] [id number] [address] [place] [phone] Jul, [facility] [address] [id number] [address] [place] [id number] Jul, [facility] [address] [id number] [address] [place] [phone] Jun, [facility] [address] [id number] [address] [place] [phone] Jun, [facility] [address] [id number] [address] [place] [id number] Jun, [facility] [address] [id number] [address] [place] [phone] May, [facility] [address] [id number] [address] [place] [id number] May, [facility] [address] [id number] [address] [place] [id number] May, Diabetes type 1, controlled 250.01 [facility] [address] [id number] [address] [place] [phone] May, [facility] [address] [id number] [address] [place] [phone] May, [facility] [address] [id number] [address] [place] [address] [id number] Apr, Dental examination V72.2 [facility] [address] [id number] [address] [place] [phone] Apr, [facility] [address] [id number] [address] [place] [phone] Apr, [facility] [address] [id number] [address] [place] [phone] Apr, [facility] [address] [id number] [address] [place] [phone] Apr, [facility] [address] [id number] [address] [place] [phone] Apr, [facility] [address] [id number] [address] [place] [address] [id number] Apr, Dental examination V72.2 [facility] [address] [id number] [address] [place] [phone] Apr, [facility] [address] [id number] [address] [place] [id number] Apr, [facility] [address] [id number] [address] [place] [phone] March, Diabetes mellitus type 1 250 .01 [facility] [address] [id number] [address] [place] [phone] March, [facility] [address] [id number] [address] [place] [phone] Feb, [facility] [address] [id number] [address] [place] [phone] Feb, [facility] [address] [id number] [address] [place] [phone] Jan, [facility] [address] [id number] [address] [place] [phone] Jan, [facility] [address] [id number] [address] [place] [address], [place] [address] Jan, [facility] [address] [id number] [address] [place] [address], [place] [address] Jan, [facility] [address] [id number] [address] [place] [address], [place] [address] Dec, [facility] [address] [id number] [address] [place] [address], [place] [address] Dec, [facility] [address] [id number] [address] [place] [address], [place] [address] Nov, [facility] [address] [id number] [address] [place] [address], [place] [address] Nov, [facility] [address] [id number] [address] [place] [address], [place] [address] Nov, [facility] [address] [id number] [address] [place] [address], [place] [address] Nov, [facility] [address] [id number] [address] [place] [address], [place] [address] Nov, [facility] [address] [id number] [address] [place] [address], [place] [address] Nov, [facility] [address] [id number] [address] [place] [phone] Nov, [facility] [address] [id number] [address] [place] [phone] Oct, [facility] [address] [id number] [address] [place] [address], [place] [address] Oct, [facility] [address] [id number] [address] [place] [address], [place] [address] Sep, [facility] [address] [id number] [address] [place] [address], [place] [address] Aug, [facility] [address] [id number] [address] [place] [address], [place] [address] Aug, [facility] [address] [id number] [address] [place] [address], [place] [address] Aug, [facility] [address] [id number] [address] [place] [address], [place] [address] Aug, [facility] [address] [id number] [address] [place] [address], [place] [address] Aug, [facility] [address] [id number] [address] [place] [address], [place] [address] Aug, [facility] [address] [id number] [address] [place] [address], [place] [address] Aug, [facility] [address] [id number] [address] [place] [address], [place] [address] Aug, [facility] [address] [id number] [address] [place] [address], [place] [address] Aug, [facility] [address] [id number] [address] [place] [address], [place] [address] Aug, [facility] [address] [id number] [address] [place] [address], [place] [address] Aug, [facility] [address] [id number] [address] [place] [address], [place] [address] Aug, [facility] [address] [id number] [address] [place] [address], [place] [address] Aug, 2013 [facility] [address] [id number] [address] [place] [address], [place] [address] Aug, 2013 [facility] [address] [id number] [address] [place] [address], [place] [address] 13 Jul, 2013 [facility] [address] [id number] [address] [place] [address], [place] [address] 13 Jul, 2013 [facility] [address] [id number] [address] [place] [address], [place] [address] Jul, [facility] [address] [id number] [facility] [place] [address] Jul, [facility] [address] [id number] [facility] [place] [address] Jun, [facility] [address] [id number] [facility] [place] [address] Jun, [facility] [address] [id number] [address] [place] [address], [place] [address] Jun, [facility] [address] [id number] [address] [place] [address], [place] [address] Jun, [facility] [address] [id number] [address] [place] [address], [place] [address] May, [facility] [address] [id number] [address] [place] [address], [place] [address] May, [facility] [address] [id number] [address] [place] [address], [place] [address] May, [facility] [address] [id number] [address] [place] [address], [place] [address] May, [facility] [address] [id number] [address] [place] [address], [place] [address] May, [facility] [address] [id number] [address] [place] [address], [place] [address] May, [facility] [address] [id number] [address] [place] [address], [place] [address] May, [facility] [address] [id number] [address] [place] [address], [place] [address] May, [facility] [address] [id number] [address] [place] [address], [place] [address] May, [facility] [address] [id number] [address] [place] [address], [place] [address] May, [facility] [address] [id number] [facility] [place] [address] May, [facility] [address] [id number] [facility] [place] [address] May, [facility] [address] [id number] [facility] [place] [address] May, [facility] [address] [id number] [address] [place] [address], [place] [address] Apr, [facility] [address] [id number] [address] [place] [address], [place] [address] Apr, [facility] [address] [id number] [address] [place] [address], [place] [address] Apr, [facility] [address] [id number] [address] [place] [address], [place] [address] Apr, [facility] [address] [id number] [address] [place] [address], [place] [address] Apr, [facility] [address] [id number] [address] [place] [address], [place] [address] Apr, [facility] [address] [id number] [address] [place] [address], [place] [address] Apr, [facility] [address] [id number] [address] [place] [address], [place] [address] Apr, [facility] [address] [id number] [address] [place] [address], [place] [address] Apr, [facility] [address] [id number] [address] [place] [address], [place] [address] Apr, [facility] [address] [id number] [address] [place] [address], [place] [address] Apr, [facility] [address] [id number] [address] [place] [address], [place] [address] Apr, [facility] [address] [id number] [address] [place] [address], [place] [address] Apr, [facility] [address] [id number] [address] [place] [address], [place] [address] Apr, [facility] [address] [id number] [address] [place] [address], [place] [address] March, [facility] [address] [id number] [address] [place] [address], [place] [address] March, [facility] [address] [id number] [address] [place] [address], [place] [address] March, [facility] [address] [id number] [address] [place] [address], [place] [address] March, [facility] [address] [id number] [address] [place] [address], [place] [address] March, [facility] [address] [id number] [address] [place] [address], [place] [address] March, [facility] [address] [id number] [address] [place] [address], [place] [address] March, [facility] [address] [id number] [address] [place] [address], [place] [address] March, [facility] [address] [id number] [address] [place] [address], [place] [address] March, [facility] [address] [id number] [address] [place] [address], [place] [address] March, [facility] [address] [id number] [address] [place] [address], [place] [address] Feb, [facility] [address] [id number] [address] [place] [address], [place] [address] Feb, [facility] [address] [id number] [address] [place] [address], [place] [address] Feb, [facility] [address] [id number] [address] [place] [address], [place] [address] Feb, [facility] [address] [id number] [address] [place] [address], [place] [address] Feb, [facility] [address] [id number] [facility] [place] [address] Feb, [facility] [address] [id number] [address] [place] [address], [place] [address] Feb, [facility] [address] [id number] [address] [place] [address], [place] [address] Feb, [facility] [address] [id number] [address] [place] [address], [place] [address] Jan, [facility] [address] [id number] [address] [place] [address], [place] [address] Jan, [facility] [address] [id number] [address] [place] [address], [place] [address] Jan, [facility] [address] [address] [id number] [address] [place] [address], [place] [address] Jan, [facility] [address] [id number] [address] [place] [address], [place] [address] Jan, [facility] [address] [id number] [address] [place] [address], [place] [address] Jan, [facility] [address] [id number] [address] [place] [address], [place] [address] Jan, [facility] [address] [id number] [address] [place] [address], [place] [address] Jan, [facility] [address] [id number] [address] [place] [address], [place] [address] Jan, [facility] [address] [id number] [address] [place] [address], [place] [address] Jan, [facility] [address] [id number] [address] [place] [address], [place] [address] Dec, [facility] [address] [id number] [address] [place] [address], [place] [address] Dec, [facility] [address] [id number] [address] [place] [address], [place] [address] Nov, [facility] [address] [id number] [address] [place] [address], [place] [address] Nov, [facility] [address] [id number] [address] [place] [address], [place] [address] Nov, [facility] [address] [id number] [address] [place] [address], [place] [address] Nov, [facility] [address] [id number] [address] [place] [address], [place] [address] Nov, [facility] [address] [id number] [address] [place] [address], [place] [address] Nov, [facility] [address] [id number] [address] [place] [address], [place] [address] Nov, [facility] [address] [id number] [address] [place] [address], [place] [address] Nov, [facility] [address] [id number] [address] [place] [address], [place] [address] Oct, [facility] [address] [id number] [address] [place] [address], [place] [address] Oct, [facility] [address] [id number] [address] [place] [address], [place] [address] Oct, [facility] [address] [id number] [address] [place] [address], [place] [address] Oct, [facility] [address] [id number] [address] [place] [address], [place] [address] Oct, [facility] [address] [id number] [address] [place] [address], [place] [address] Oct, [facility] [address] [id number] [address] [place] [address], [place] [address] Sep, [facility] [address] [id number] [address] [place] [address], [place] [address] Sep, [facility] [address] [id number] [address] [place] [address], [place] [address] Sep, [facility] [address] [id number] [address] [place] [address], [place] [address] Sep, [facility] [address] [id number] [address] [place] [address], [place] [address] Sep, [facility] [address] [id number] [address] [place] [address], [place] [address] Aug, [facility] [address] [id number] [address] [place] [address], [place] [address] Aug, [facility] [address] [id number] [address] [place] [address], [place] [address] Aug, [facility] [address] [id number] [address] [place] [address], [place] [address] Aug, [facility] [address] [id number] [address] [place] [address], [place] [address] Aug, [facility] [address] [id number] [address] [place] [address], [place] [address] Aug, [facility] [address] [id number] [address] [place] [address], [place] [address] Jul, [facility] [address] [id number] [address] [place] [address], [place] [address] Jul, [facility] [address] [id number] [address] [place] [address], [place] [address] Jul, [facility] [address] [id number] [address] [place] [address], [place] [address] Jun, [facility] [address] [id number] [address] [place] [address], [place] [address] Jun, [facility] [address] [id number] [address] [place] [address], [place] [address] May, [facility] [address] [id number] [address] [place] [address] [place] [address] 10 May, 2013 [facility] [address] [id number] [address] [place] [address], [place] [address] 11 Apr, 2013 [facility] [address] [id number] [address] [place] [address], [place] [address] 07 Apr, 2013 [facility] [address] [id number] [address] [place] [address], [place] [address] Apr, [facility] [address] [id number] [address] [place] [address], [place] [address] March, [facility] [address] [id number] [address] [place] [address], [place] [address] Feb, [facility] [address] [id number] [address] [place] [address], [place] [address] Feb, [facility] [address] [id number] [address] [place] [address], [place] [address] Jan, [facility] [address] [id number] [address] [place] [address], [place] [address] Jan, [facility] [address] [id number] [address] [place] [address], [place] [address] Jan, [facility] [address] [id number] [address] [place] [address], [place] [address] Jan, [facility] [address] [id number] [address] [place] [address], [place] [address] Jan, [facility] [address] [id number] [address] [place] [address], [place] [address] Dec, [facility] [address] [id number] [address] [place] [address], [place] [address] Dec, [facility] [address] [id number] [address] [place] [address], [place] [address] 18 Dec, 2012 [facility] [address] [id number] [address] [place] [address], [place] [address] Dec, [facility] [address] [id number] [address] [place] [address], [place] [address] Dec, [facility] [address] [id number] [address] [place] [address], [place] [address] Dec, [facility] [address] [place] [id number] 14 Nov, 2012 [facility] [address] [id number] [address] [place] [address], [place] [address] Nov, [facility] [address] [id number] [address] [place] [address], [place] [address] Nov, [facility] [address] [id number] [address] [place] [address], [place] [address] Nov, [facility] [address] [id number] [address] [place] [address], [place] [address] Nov, [facility] [address] [id number] [address] [place] [address], [place] [address] Oct, [facility] [address] [id number] [address] [place] [address], [place] [address] Oct, [facility] [address] [id number] [address] [place] [address], [place] [address] Oct, [facility] [address] [id number] [address] [place] [address], [place] [address] Oct, [facility] [address] [id number] [address] [place] [address], [place] [address] Oct, [facility] [address] [id number] [address] [place] [address], [place] [address] Oct, [facility] [address] [id number] [address] [place] [address], [place] [address] Oct, [facility] [address] [id number] [address] [place] [address], [place] [address] Oct, [facility] [address] [id number] [address] [place] [address], [place] [address] Sep, [facility] [address] [id number] [address] [place] [address] Sep, [facility] [address] [id number] [address] [place] [address] Sep, [facility] [address] [id number] [address] [place] [address] Sep, [facility] [address] [id number] [address] [place] [address] Sep, [facility] [address] [id number] [address] [place] [address] Sep, [facility] [address] [id number] [address] [place] [address] Sep, [facility] [address] [id number] [address] [place] [address] Sep, [facility] [address] [id number] [address] [place] [address] Sep, [facility] [address] [id number] [address] [place] [address] Sep, [facility] [address] [id number] [address] [place] [address] Sep, [facility] [address] [id number] [address] [place] [id number] Sep, [facility] [address] [id number] [address] [place] [phone] Sep, [facility] [address] [id number] [address] [place] [address] Sep, [facility] [address] [id number] [address] [place] [id number] Sep, [facility] [address] [id number] [address] [place] [id number] Sep, IMMUNIZATIONS No Known Immunizations SOCIAL HISTORY Never Assessed REASON FOR VISIT PA for Tanya PLAN OF CARE VITAL SIGNS MEDICATIONS Unknown Medications RESULTS No Results PROCEDURES No Known procedures INSTRUCTIONS MEDICATIONS ADMINISTERED No Known Medications MEDICAL (GENERAL) HISTORY Type Description Date Medical History hypertension Medical History type I diabetes Medical History chronic renal insufficiency Surgical History gastric pacemaker 2008 Hospitalization History nausea 2012
--- OUTSIDE RECORDS SUMMARY | 2020-04-17 21:45 | XMS REPORT ---
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 Copy Technician Name Role Phone BISMARK PATIÑO CP Unavailable [...] Start Date End Date Status Dosage Diazepam [facility] [address]-56 10 [address] ee times a day Janis to sign in [place]'s absence February 17, 2015 take 1 tablet Results No Known Results Summary Purpose [employer] Submission
--- OUTSIDE RECORDS SUMMARY | 2020-04-17 21:45 | XMS REPORT ---
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 Print Support Specialist Name Role Phone BISMARK PATIÑO CP Unavailable [...] Start Date End Date Status Dosage NovoLog [facility] [address]-61 100 UNIT/ML 3 times a day INJECT 10 UNITS Results No Known Results Summary Purpose [employer] Submission
--- OUTSIDE RECORDS SUMMARY | 2020-04-17 21:45 | XMS REPORT ---
Author Author Curt PATIÑO Organization [facility] Address [address] [place] [address] Care Team Providers Care Voltage Regulator Assembler Name Role Phone BISMARK PATIÑO Unavailable PROBLEMS Type Condition ICD9-CM Code [id number] Code Onset Dates Condition S tatus SNOMED Code Problem Mood disorder F39 Active 721100 05 Problem Type 1 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 Active 53888451 Problem Type 1 diabetes mellitus with hyperglycemia E10.65 Active [id number] Problem Gastroparesis K31.84 Active 477228 006 Problem Hypertension, essential I10 Active 08176821 Problem 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 [id number] [address] [place] [address] March, [facility] [address] [facility] [id number] [address] [place] [address] Feb, [facility] [address] [facility] [id number] [address] [place] [address] Feb, Type 1 diabetes mellitus wit h other diabetic neurological complication E10.49 ; Tobacco abuse Z72.0 and Tobacco abuse counseling Z71.6 [facility] [address] [facility] [id number] [address] [place] [address] Jan, Type 1 diabetes mellitus wit h hyperglycemia E10.65 [facility] [address] [facility] [id number] [address] [place] [address] Jan, [facility] [address] [facility] [id number] [address] [place] [address] Dec, Tobacco abuse Z72.0 [facility] [address] [facility] [id number] [address] [place] [address] 20 Dec, 2017 Type 1 diabetes mellitus wit h hyperglycemia E10.65 [facility] [address] [facility] [id number] [address] [place] [address] Dec, Type 1 diabetes mellitus wit h hyperglycemia E10.65 ; Tobacco abuse Z72.0 and Tobacco abuse counseling Z71.6 [facility] [address] [facility] [id number] [address] [place] [address] Nov, Type 1 diabetes mellitus wit h hyperglycemia E10.65 [facility] [address] [facility] [id number] [address] [place] [address] Oct, Type 1 diabetes mellitus wit h hyperglycemia E10.65 [facility] [address] [facility] [id number] [address] [place] [address] Oct, Type 1 diabetes mellitus wit h hyperglycemia E10.65 [facility] [address] [facility] [id number] [address] [place] [address] Sep, Type 1 diabetes mellitus wit h hyperglycemia E10.65 [facility] [address] [facility] [id number] [address] [place] [address] Aug, Type 1 diabetes mellitus wit h hyperglycemia E10.65 [facility] [address] [facility] [id number] [address] [place] [address] Aug, [facility] [address] [facility] [id number] [address] [place] [address] Aug, Type 1 diabetes mellitus wit h hyperglycemia E10.65 [facility] [address] [facility] [id number] [address] [place] [address] Aug, Encounter for immunization Z 23 [facility] [address] [facility] [id number] [address] [place] [address] Aug, Type 1 diabetes mellitus wit h hyperglycemia E10.65 [facility] [address] [facility] [id number] [address] [place] [address] Jul, Type 1 diabetes mellitus wit h hyperglycemia E10.65 [facility] [address] [id number] [address] [place] [address] Jul, Type 1 diabetes mellitus wit h hyperglycemia E10.65 [facility] [address] [id number] [address] [place] [address] May, Type 1 diabetes mellitus wit h hyperglycemia E10.65 [facility] [address] [id number] [address] [place] [address] May, [facility] [address] [id number] [address] [place] [address] Apr, [facility] [address] [id number] [address] [place] [address] Apr, Type 1 diabetes mellitus wit h hyperglycemia E10.65 [facility] [address] [id number] [address] [place] [address] March, [facility] [address] [id number] [address] [place] [address] March, [facility] [address] [id number] [address] [place] [address] Jan, [facility] [address] [id number] [address] [place] [address] Jan, [facility] [address] [facility] [id number] [address] [place] [address] Jan, Type 1 diabetes mellitus wit h diabetic polyneuropathy E10.42 [facility] [address] [id number] [address] [place] [address] Jan, Type 1 diabetes mellitus wit h hyperglycemia E10.65 ; Excessive cerumen in both ear canals H61.23 and Controlled diabetes mellitus type 1 without complications E10.9 [facility] [address] [id number] [address] [place] [address] Dec, [facility] [address] [facility] [id number] [address] [place] [address] Dec, [facility] [address] [id number] [address] [place] [address] Dec, [facility] [address] [id number] [address] [place] [address] Dec, [facility] [address] [id number] [address] [place] [address] Nov, [facility] [address] [id number] [address] [place] [address] Nov, [facility] [address] [id number] [address] [place] [address] Oct, Type 1 diabetes mellitus wit h hyperglycemia E10.65 [facility] [address] [id number] [address] [place] [address] Sep, [facility] [address] [id number] [address] [place] [address] Sep, [facility] [address] [id number] [address] [place] [address] Sep, Controlled diabetes mellitus type 1 without complications E10.9 [facility] [address] [id number] [address] [place] [address] Sep, [facility] [address] [id number] [address] [place] [id number] Aug, Dental caries K02.9 [facility] [address] [id number] [address] [place] [address] Aug, Type 1 diabetes mellitus wit h diabetic polyneuropathy E10.42 [facility] [address] [id number] [address] [place] [address] Aug, [facility] [address] [id number] [address] [place] [address] Aug, [facility] [address] [id number] [address] [place] [address] Aug, [facility] [address] [id number] [address] [place] [address] Jul, Type 1 diabetes mellitus wit h hyperglycemia E10.65 [facility] [address] [id number] [address] [place] [address] Jul, Type 1 diabetes mellitus wit h hyperglycemia E10.65 ; Tooth pain K08.8 and Encounter for immunization Z23 [facility] [address] [id number] [address] [place] [id number] Jul, 2016 Dental examination Z01.20 [facility] [address] [id number] [address] [place] [address] 08 Jul, 2016 [facility] [address] [id number] [address] [place] [id number] 07 Jul, 2016 [facility] [address] [id number] [address] [place] [address] Jul, [facility] [address] [id number] [address] [place] [address] Jun, [facility] [address] [id number] [address] [place] [address] May, [facility] [address] [id number] [address] [place] [address] Apr, [facility] [address] [id number] [address] [place] [address] Apr, [facility] [address] [id number] [address] [place] [address] Apr, [facility] [address] [id number] [address] [place] [address] March, [facility] [address] [id number] [address] [place] [address] March, [facility] [address] [id number] [address] [place] [address] Feb, [facility] [address] [id number] [address] [place] [address] Feb, [facility] [address] [facility] [id number] [address] [place] [address] Feb, Type 1 diabetes mellitus wit h hyperglycemia E10.65 [facility] [address] [facility] [id number] [address] [place] [address] Jan, [facility] [address] [facility] [id number] [address] [place] [address] Jan, [facility] [address] [facility] [id number] [address] [place] [address] Jan, [facility] [address] [facility] [id number] [address] [place] [address] Jan, [facility] [address] [facility] [id number] [address] [place] [address] Dec, [facility] [address] [facility] [id number] [address] [place] [address] Nov, [facility] [address] [facility] [id number] [address] [place] [address] Nov, [facility] [address] [facility] [id number] [address] [place] [address] Oct, [facility] [address] [facility] [id number] [address] [place] [id number] 04 Oct, 2015 Type 1 diabetes mellitus wit h 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 ; Type 1 diabetes mellitus with hyperglycemia E10.65 ; Gastroparesis K31.84 and Esophageal stricture K22.2 [facility] [address] [facility] [id number] [address] [place] [address] Oct, [facility] [address] [facility] [id number] [address] [place] [address] Sep, [facility] [address] [facility] [id number] [address] [place] [address] Sep, Type 1 diabetes mellitus wit h other diabetic neurological complication E10.49 [facility] [address] [facility] [id number] [address] [place] [address] Aug, Encounter for immunization Z 23 [facility] [address] [id number] [address] [place] [address] Aug, [facility] [address] [id number] [address] [place] [address] Aug, [facility] [address] [id number] [address] [place] [address] Jul, [facility] [address] [id number] [address] [place] [address] Jul, [facility] [address] [id number] [address] [place] [address] Jun, [facility] [address] [id number] [address] [place] [address] Jun, [facility] [address] [id number] [address] [place] [address] Jun, [facility] [address] [id number] [address] [place] [address] May, [facility] [address] [id number] [address] [place] [address] May, [facility] [address] [id number] [address] [place] [address] May, Diabetes type 1, controlled 250.01 [facility] [address] [id number] [address] [place] [address] May, [facility] [address] [id number] [address] [place] [address] May, [facility] [address] [id number] [address] [place] [id number] Apr, Dental examination V72.2 [facility] [address] [id number] [address] [place] [address] Apr, [facility] [address] [id number] [address] [place] [address] Apr, [facility] [address] [id number] [address] [place] [address] Apr, [facility] [address] [id number] [address] [place] [address] Apr, [facility] [address] [id number] [address] [place] [address] Apr, [facility] [address] [id number] [address] [place] [id number] Apr, Dental examination V72.2 [facility] [address] [id number] [address] [place] [address] Apr, [facility] [address] [id number] [address] [place] [address] Apr, [facility] [address] [id number] [address] [place] [address] March, Diabetes mellitus type 1 250 .01 [facility] [address] [id number] [address] [place] [address] March, [facility] [address] [id number] [address] [place] [address] Feb, [facility] [address] [id number] [address] [place] [address] Feb, [facility] [address] [id number] [address] [place] [address] Jan, [facility] [address] [id number] [address] [place] [address] Jan, [facility] [address] [id number] [address] [place] [address] Jan, [facility] [address] [id number] [address] [place] [address] Jan, [facility] [address] [id number] [address] [place] [address] Dec, [facility] [address] [id number] [address] [place] [address], [place] [address] Dec, [facility] [address] [id number] [address] [place] [address], [place] [address] Nov, [facility] [address] [id number] [address] [place] [address], [place] [address] Nov, [facility] [address] [id number] [address] [place] [address], [place] [address] Nov, [facility] [address] [id number] [address] [place] [address], [place] [address] Nov, [facility] [address] [id number] [address] [place] [address], [place] [address] Nov, [facility] [address] [id number] [address] [place] [address], [place] [address] Nov, [facility] [address] [id number] [address] [place] [address], [place] [address] Nov, [facility] [address] [id number] [address] [place] [address], [place] [address] Oct, [facility] [address] [id number] [address] [place] [address], [place] [address] Oct, [facility] [address] [id number] [address] [place] [address], [place] [address] Sep, [facility] [address] [id number] [address] [place] [address], [place] [address] Aug, [facility] [address] [id number] [address] [place] [address], [place] [address] Aug, [facility] [address] [id number] [address] [place] [address], [place] [address] Aug, [facility] [address] [id number] [address] [place] [address], [place] [address] Aug, [facility] [address] [id number] [address] [place] [address], [place] [address] Aug, [facility] [address] [id number] [address] [place] [address], [place] [address] Aug, [facility] [address] [id number] [address] [place] [address], [place] [address] Aug, [facility] [address] [id number] [address] [place] [address], [place] [address] Aug, [facility] [address] [id number] [address] [place] [address], [place] [address] Aug, [facility] [address] [id number] [address] [place] [address], [place] [address] Aug, [facility] [address] [id number] [address] [place] [address], [place] [address] Aug, [facility] [address] [id number] [address] [place] [address], [place] [address] Aug, [facility] [address] [id number] [address] [place] [address], [place] [address] Aug, [facility] [address] [id number] [address] [place] [address], [place] [address] Aug, [facility] [address] [id number] [address] [place] [address], [place] [address] Jul, [facility] [address] [id number] [address] [place] [address], [place] [address] Jul, [facility] [address] [id number] [address] [place] [address] Jul, [facility] [address] [id number] [address] [place] [address], [place] [address] Jul, [facility] [address] [id number] [address] [place] [address], [place] [address] Jun, [facility] [address] [id number] [address] [place] [address], [place] [address] Jun, [facility] [address] [id number] [facility] [place] [address] Jun, [facility] [address] [id number] [address] [place] [address], [place] [address] Jun, [facility] [address] [id number] [address] [place] [address], [place] [address] May, [facility] [address] [id number] [address] [place] [address], [place] [address] May, [facility] [address] [id number] [address] [place] [address], [place] [address] May, [facility] [address] [id number] [address] [place] [address], [place] [address] May, [facility] [address] [id number] [address] [place] [address], [place] [address] May, [facility] [address] [id number] [address] [place] [address], [place] [address] May, [facility] [address] [id number] [address] [place] [address], [place] [address] May, [facility] [address] [id number] [address] [place] [address], [place] [address] May, [facility] [address] [id number] [address] [place] [address], [place] [address] May, [facility] [address] [id number] [address] [place] [address], [place] [address] May, [facility] [address] [id number] [address] [place] [address], [place] [address] May, [facility] [address] [id number] [address] [place] [address], [place] [address] May, [facility] [address] [id number] [address] [place] [address], [place] [address] May, [facility] [address] [id number] [address] [place] [address], [place] [address] Apr, [facility] [address] [id number] [facility] [place] [address] Apr, [facility] [address] [id number] [facility] [place] [address] Apr, [facility] [address] [id number] [facility] [place] [address] Apr, [facility] [address] [id number] [address] [place] [address], [place] [address] Apr, [facility] [address] [id number] [address] [place] [address], [place] [address] Apr, [facility] [address] [id number] [address] [place] [address], [place] [address] Apr, [facility] [address] [id number] [address] [place] [address], [place] [address] Apr, [facility] [address] [id number] [address] [place] [address], [place] [address] Apr, [facility] [address] [id number] [address] [place] [address], [place] [address] Apr, [facility] [address] [id number] [address] [place] [address], [place] [address] Apr, [facility] [address] [id number] [address] [place] [address], [place] [address] Apr, [facility] [address] [id number] [address] [place] [address], [place] [address] Apr, [facility] [address] [id number] [address] [place] [address], [place] [address] Apr, [facility] [address] [id number] [address] [place] [address], [place] [address] March, [facility] [address] [id number] [address] [place] [address], [place] [address] March, [facility] [address] [id number] [address] [place] [address], [place] [address] March, [facility] [address] [id number] [address] [place] [address], [place] [address] March, [facility] [address] [id number] [address] [place] [address], [place] [address] March, [facility] [address] [id number] [address] [place] [address], [place] [address] March, [facility] [address] [id number] [address] [place] [address], [place] [address] March, [facility] [address] [id number] [address] [place] [address], [place] [address] March, [facility] [address] [id number] [address] [place] [address], [place] [address] March, [facility] [address] [id number] [address] [place] [address], [place] [address] March, [facility] [address] [id number] [address] [place] [address], [place] [address] Feb, [facility] [address] [id number] [address] [place] [address], [place] [address] Feb, [facility] [address] [id number] [address] [place] [address], [place] [address] Feb, [facility] [address] [id number] [address] [place] [address], [place] [address] Feb, [facility] [address] [id number] [address] [place] [address], [place] [address] Feb, [facility] [address] [id number] [address] [place] [address], [place] [address] Feb, [facility] [address] [id number] [address] [place] [address], [place] [address] Feb, [facility] [address] [id number] [address] [place] [address], [place] [address] Feb, [facility] [address] [id number] [facility] [place] [address] 18 Jan, 2014 [facility] [address] [id number] [facility] [place] [address] Jan, [facility] [address] [id number] [facility] [place] [address] Jan, [facility] [address] [id number] [facility] [place] [address] Jan, [facility] [address] [id number] [address] [place] [address], [place] [address] Jan, [facility] [address] [id number] [address] [place] [address], [place] [address] Jan, [facility] [address] [id number] [address] [place] [address], [place] [address] Jan, [facility] [address] [id number] [address] [place] [address], [place] [address] Jan, [facility] [address] [id number] [address] [place] [address], [place] [address] Jan, [facility] [address] [id number] [address] [place] [address], [place] [address] Jan, [facility] [address] [id number] [address] [place] [address], [place] [address] Dec, [facility] [address] [id number] [address] [place] [address], [place] [address] Dec, [facility] [address] [id number] [address] [place] [address], [place] [address] Nov, [facility] [address] [id number] [address] [place] [address], [place] [address] Nov, [facility] [address] [id number] [address] [place] [address], [place] [address] Nov, [facility] [address] [id number] [address] [place] [address], [place] [address] Nov, [facility] [address] [id number] [address] [place] [address], [place] [address] Nov, [facility] [address] [id number] [address] [place] [address], [place] [address] Nov, [facility] [address] [id number] [address] [place] [address], [place] [address] Nov, [facility] [address] [id number] [address] [place] [address], [place] [address] Nov, [facility] [address] [id number] [address] [place] [address], [place] [address] Oct, [facility] [address] [id number] [address] [place] [address], [place] [address] Oct, [facility] [address] [id number] [address] [place] [address], [place] [address] Oct, [facility] [address] [id number] [address] [place] [address], [place] [address] Oct, [facility] [address] [id number] [address] [place] [address], [place] [address] Oct, [facility] [address] [id number] [address] [place] [address], [place] [address] Oct, [facility] [address] [id number] [address] [place] [address], [place] [address] Sep, [facility] [address] [id number] [address] [place] [address], [place] [address] Sep, [facility] [address] [id number] [address] [place] [address], [place] [address] Sep, [facility] [address] [id number] [address] [place] [address], [place] [address] Sep, [facility] [address] [id number] [address] [place] [address], [place] [address] 05 Sep, 2013 [facility] [address] [id number] [address] [place] [address], [place] [address] Aug, [facility] [address] [id number] [address] [place] [address], [place] [address] Aug, [facility] [address] [id number] [address] [place] [address], [place] [address] Aug, [facility] [address] [id number] [address] [place] [address], [place] [address] Aug, [facility] [address] [id number] [address] [place] [address], [place] [address] Aug, [facility] [address] [id number] [address] [place] [address], [place] [address] Aug, [facility] [address] [id number] [address] [place] [address], [place] [address] Jul, [facility] [address] [id number] [address] [place] [address], [place] [address] Jul, [facility] [address] [id number] [address] [place] [address], [place] [address] Jul, [facility] [address] [id number] [address] [place] [address], [place] [address] Jun, [facility] [address] [id number] [address] [place] [address], [place] [address] Jun, [facility] [address] [id number] [address] [place] [address], [place] [address] May, [facility] [address] [id number] [address] [place] [address], [place] [address] May, [facility] [address] [id number] [address] [place] [address], [place] [address] Apr, [facility] [address] [id number] [address] [place] [address], [place] [address] Apr, [facility] [address] [id number] [address] [place] [address], [place] [address] Apr, [facility] [address] [id number] [address] [place] [address], [place] [address] March, [facility] [address] [id number] [address] [place] [address], [place] [address] Feb, [facility] [address] [id number] [address] [place] [address], [place] [address] Feb, [facility] [address] [id number] [address] [place] [address], [place] [address] Jan, [facility] [address] [id number] [address] [place] [address], [place] [address] Jan, [facility] [address] [id number] [address] [place] [address], [place] [address] Jan, [facility] [address] [id number] [address] [place] [address], [place] [address] Jan, [facility] [address] [id number] [address] [place] [address], [place] [address] Jan, [facility] [address] [id number] [address] [place] [address], [place] [address] Dec, [facility] [address] [id number] [address] [place] [address], [place] [address] Dec, [facility] [address] [id number] [address] [place] [address], [place] [address] Dec, [facility] [address] [id number] [address] [place] [address], [place] [address] Dec, [facility] [address] [id number] [address] [place] [address], [place] [address] Dec, [facility] [address] [id number] [address] [place] [address], [place] [address] Dec, [facility] [address] [place] [id number] Nov, [facility] [address] [id number] [address] [place] [address] [place] [address] 11 Nov, 2012 [facility] [address] [id number] [address] [place] [address], [place] [address] Nov, [facility] [address] [id number] [address] [place] [address], [place] [address] Nov, [facility] [address] [id number] [address] [place] [address], [place] [address] Nov, [facility] [address] [id number] [address] [place] [address], [place] [address] Oct, [facility] [address] [id number] [address] [place] [address], [place] [address] Oct, [facility] [address] [id number] [address] [place] [address], [place] [address] Oct, [facility] [address] [id number] [address] [place] [address], [place] [address] Oct, [facility] [address] [id number] [address] [place] [address], [place] [address] Oct, [facility] [address] [id number] [address] [place] [address], [place] [address] Oct, [facility] [address] [id number] [address] [place] [address], [place] [address] Oct, [facility] [address] [id number] [address] [place] [address], [place] [address] Oct, [facility] [address] [id number] [address] [place] [address], [place] [address] Sep, [facility] [address] [id number] [address] [place] [address], [place] [address] Sep, [facility] [address] [id number] [address] [place] [address], [place] [address] Sep, [facility] [address] [id number] [address] [place] [address], [place] [address] Sep, [facility] [address] [id number] [address] [place] [address] Sep, [facility] [address] [id number] [address] [place] [address] Sep, [facility] [address] [id number] [address] [place] [address] Sep, [facility] [address] [id number] [address] [place] [address] Sep, [facility] [address] [id number] [address] [place] [address] Sep, [facility] [address] [id number] [address] [place] [address] Sep, [facility] [address] [id number] [address] [place] [address] Sep, [facility] [address] [id number] [address] [place] [address] Sep, [facility] [address] [id number] [address] [place] [address] Sep, [facility] [address] [id number] [address] [place] [address] Sep, [facility] [address] [id number] [address] [place] [address] Sep, [facility] [address] [id number] [address] [place] [address] Sep, IMMUNIZATIONS No Known Immunizations SOCIAL HISTORY [...]
--- OUTSIDE RECORDS SUMMARY | 2020-04-17 21:45 | XMS REPORT ---
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 Active 71638321 Problem Type 1 diabetes mellitus with hyperglycemia E10.65 Active 545693157808037 Problem Gastroparesis K31.84 Active 200520 006 Problem Hypertension, essential I10 Active 75978436 Problem 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 Active 34003977 Problem Type 1 diabetes mellitus with other diab etic neurological complication E10.49 Active 95181497 ALLERGIES Unknown Allergies SOCIAL HISTORY No smoking Hx information available PLAN OF CARE VITAL SIGNS MEDICATIONS Medication Instructions Dosage Frequency Start Date End Date Duration S tatus Genaro Contour Test N/A test blood sugar 6h Jul, Active RESULTS No Results PROCEDURES No Known procedures IMMUNIZATIONS No Known Immunizations
--- OUTSIDE RECORDS SUMMARY | 2020-04-17 21:46 | XMS REPORT ---
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 Tool Grinding Technician Name Role Phone BISMARK PATIÑO CP Unavailable Allergies No Known Allergies Problems Problem Type Condition Code Onset Dates Condition Statu s Problem Gastroparesis K31.84 Active Problem Hypertension, essential I10 Acti ve Problem Type 1 diabetes mellitus with other diab etic neurological complication E10.49 Active Problem Mood disorder F39 Active Medications Medication Code System Code Instructions Start Date End Date Status Dosage NovoLog [facility] [address]-37 100 UNIT/ML 3 times a day INJECT 10 UNITS Results No Known Results Summary Purpose [employer] Submission
--- OUTSIDE RECORDS SUMMARY | 2020-04-17 21:46 | XMS REPORT ---
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 Chha Name Role Phone BISMARK PATIÑO CP Unavailable Allergies, Adverse Reactions, Alerts Substance Reaction Event Type Cipro Info Not Available Drug Allergy Sulfa(sulfonamide Antibiotics) Info Not Available Non Drug Allergy Problems Problem Type Condition Code Onset Dates Condition Statu s Problem Gastroparesis K31.84 Active Problem Hypertension, essential I10 Acti ve Problem Type 1 diabetes mellitus with other diab etic neurological complication E10.49 Active Problem Mood disorder F39 Active Assessment Type 1 diabetes mellitus wit h other diabetic neurological complication E10.49 Active Medications Medication Code System Code Instructions Start Date End Date Status Dosage Glucagon Emergency [facility] [address]-91 1 MG Injection June 16, 2015 as directed Enalapril Maleate [facility] [address]-39 10 MG Orally Once a day 1 tablet NovoLog [facility] [address]-29 100 UNIT/ML 3 times a day INJECT 10 UNITS Genaro Contour Next Test [facility] [id number] TEST BLOOD FOUR TIMES A DAY. DIAG. 250.50 Procedures Procedure Coding System Code Date [facility] C[facility] NOBLL Oct 03, 2015 Office Visit, Est Pt., Level 3 CPT-4 87147 N 2014 [facility] VISIT ESTABLISHED PATIENT CPT-4 G0467 N 2014 MICROALBUMIN, SEMIQUANT CPT-4 40421 Oct 03, 2015 GLYCATED HEMOGLOBIN TEST CPT-4 69254 Oct 03, 2015 Vital Signs Date/Time: Oct 03, 2015 Temperature 98.1 F Weight 164.7 lbs Height 68 in BMI 25.04 Index Blood Pressure Diastolic 76 mmHg Blood Pressure Systolic 110 mmHg Cardiac Monitoring Heart Rate 80 bpm Results Name Result Date Reference Range Unit Abnormali ty Flag A1C (IN HOUSE) Summary Purpose [employer] Submission
--- OUTSIDE RECORDS SUMMARY | 2020-04-17 21:46 | XMS REPORT ---
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 Active 94768240 Problem Type 1 diabetes mellitus with hyperglycemia E10.65 Active [id number] Problem Gastroparesis K31.84 Active 653237 006 Problem Hypertension, essential I10 Active 56425356 Problem 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 Active 13317653 Problem Type 1 diabetes mellitus with other diab etic neurological complication E10.49 Active [id number] ALLERGIES No Information ENCOUNTERS Encounter Location Date Diagnosis [place] [address] [address] Jan, Type 1 diabetes mellitus wit h hyperglycemia E10.65 [place] [address] [address] Jan, [place] [address] [address] Dec, Tobacco abuse Z72.0 [place] [address] [address] Dec, Type 1 diabetes mellitus wit h hyperglycemia E10.65 [place] [address] [address] 16 Dec, 2017 Type 1 diabetes mellitus wit h hyperglycemia E10.65 ; Tobacco abuse Z72.0 and Tobacco abuse counseling Z71.6 [place] [address] [address] Nov, Type 1 diabetes mellitus wit h hyperglycemia E10.65 [facility] [address] [id number] [address] [place] [address] Oct, Type 1 diabetes mellitus wit h hyperglycemia E10.65 [facility] [address] [id number] [address] [place] [address] Oct, Type 1 diabetes mellitus wit h hyperglycemia E10.65 [facility] [address] [facility] [id number] [address] [place] [address] Sep, Type 1 diabetes mellitus wit h hyperglycemia E10.65 [facility] [address] [id number] [address] [place] [address] Aug, Type 1 diabetes mellitus wit h hyperglycemia E10.65 [facility] [address] [facility] [id number] [address] [place] [address] Aug, [facility] [address] [facility] [id number] [address] [place] [address] Aug, Type 1 diabetes mellitus wit h hyperglycemia E10.65 [facility] [address] [facility] [id number] [address] [place] [address] Aug, Encounter for immunization Z 23 [facility] [address] [facility] [id number] [address] [place] [address] Aug, Type 1 diabetes mellitus wit h hyperglycemia E10.65 [facility] [address] [facility] [id number] [address] [place] [address] Jul, Type 1 diabetes mellitus wit h hyperglycemia E10.65 [facility] [address] [id number] [address] [place] [address] Jul, Type 1 diabetes mellitus wit h hyperglycemia E10.65 [facility] [address] [facility] [id number] [address] [place] [address] May, Type 1 diabetes mellitus wit h hyperglycemia E10.65 [facility] [address] [facility] [id number] [address] [place] [address] May, [facility] [address] [facility] [id number] [address] [place] [address] Apr, [facility] [address] [id number] [address] [place] [address] Apr, Type 1 diabetes mellitus wit h hyperglycemia E10.65 [facility] [address] [facility] [id number] [address] [place] [address] March, [facility] [address] [facility] [id number] [address] [place] [address] March, [facility] [address] [id number] [address] [place] [address] Jan, [facility] [address] [facility] [id number] [address] [place] [address] Jan, [facility] [address] [facility] [id number] [address] [place] [address] Jan, Type 1 diabetes mellitus wit h diabetic polyneuropathy E10.42 [facility] [address] [id number] [address] [place] [address] Jan, Type 1 diabetes mellitus wit h hyperglycemia E10.65 ; Excessive cerumen in both ear canals H61.23 and Controlled diabetes mellitus type 1 without complications E10.9 [facility] [address] [facility] [id number] [address] [place] [address] Dec, [facility] [address] [facility] [id number] [address] [place] [address] Dec, [facility] [address] [facility] [id number] [address] [place] [address] Dec, [facility] [address] [facility] [id number] [address] [place] [address] Dec, [facility] [address] [facility] [id number] [address] [place] [address] Nov, [facility] [address] [facility] [id number] [address] [place] [address] Nov, [facility] [address] [id number] [address] [place] [address] Oct, Type 1 diabetes mellitus wit h hyperglycemia E10.65 [facility] [address] [id number] [address] [place] [address] Sep, [facility] [address] [facility] [id number] [address] [place] [address] Sep, [facility] [address] [id number] [address] [place] [address] Sep, Controlled diabetes mellitus type 1 without complications E10.9 [facility] [address] [id number] [address] [place] [address] Sep, [facility] [address] [id number] [address] [place] [id number] Aug, Dental caries K02.9 [facility] [address] [id number] [address] [place] [address] Aug, Type 1 diabetes mellitus wit h diabetic polyneuropathy E10.42 [facility] [address] [id number] [address] [place] [address] Aug, [facility] [address] [facility] [id number] [address] [place] [address] Aug, [facility] [address] [id number] [address] [place] [address] Aug, [facility] [address] [id number] [address] [place] [address] Jul, Type 1 diabetes mellitus wit h hyperglycemia E10.65 [facility] [address] [id number] [address] [place] [address] Jul, Type 1 diabetes mellitus wit h hyperglycemia E10.65 ; Tooth pain K08.8 and Encounter for immunization Z23 [facility] [address] [id number] [address] [place] [id number] Jul, 2016 Dental examination Z01.20 [facility] [address] [id number] [address] [place] [address], [place] [address] 08 Jul, 2016 [facility] [place] [address] [id number] [address] [place] [address], [place] [address] 07 Jul, 2016 [facility] [place] [address] [id number] [address] [place] [address], [place] [address] Jul, [facility] [place] [address] [id number] [address] [place] [address], [place] [address] Jun, [facility] [place] [address] [id number] [address] [place] [address], [place] [address] May, [facility] [place] [address] [id number] [address] [place] [address], [place] [address] Apr, [facility] [place] [address] [id number] [address] [place] [address], [place] [address] Apr, [facility] [address] [id number] [address] [place] [address], [place] [address] Apr, [facility] [address] [id number] [address] [place] [address], [place] [address] March, [facility] [address] [id number] [address] [place] [address], [place] [address] March, [facility] [address] [id number] [address] [place] [address], [place] [address] Feb, [facility] [address] [id number] [address] [place] [address], [place] [address] Feb, [facility] [address] [id number] [address] [place] [address], [place] [address] Feb, Type 1 diabetes mellitus wit h hyperglycemia E10.65 [facility] [address] [id number] [address] [place] [address], [place] [address] Jan, [facility] [address] [id number] [address] [place] [address] Jan, [facility] [address] [id number] [address] [place] [id number] 08 Jan, 2016 [facility] [address] [facility] [id number] [address] [place] [id number] Jan, [facility] [address] [facility] [id number] [address] [place] [address] Dec, [facility] [address] [facility] [id number] [address] [place] [address] Nov, [facility] [address] [facility] [id number] [address] [place] [address] Nov, [facility] [address] [facility] [id number] [address] [place] [address] Oct, [facility] [address] [place] [id number] [place] [id number] 04 Oct, 2015 Type 1 diabetes mellitus wit h 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 ; Type 1 diabetes mellitus with hyperglycemia E10.65 ; Gastroparesis K31.84 and Esophageal stricture K22.2 [facility] [address] [facility] [id number] [address] [place] [id number] Oct, [facility] [address] [facility] [id number] [place] [id number] Sep, [facility] [address] [facility] [id number] [place] [address] Sep, Type 1 diabetes mellitus wit h other diabetic neurological complication E10.49 [facility] [address] [facility] [id number] [address] [place] [address] Aug, Encounter for immunization Z 23 [facility] [address] [facility] [id number] [address] [place] [address] Aug, [facility] [address] [place] [id number] [address] [place] [address] Aug, [facility] [address] [facility] [id number] [address] [place] [id number] Jul, [facility] [address] [id number] [address] [place] [id number] Jul, [facility] [address] [id number] [address] [place] [address] Jun, [facility] [address] [id number] [address] [place] [address] Jun, [facility] [address] [id number] [address] [place] [address] Jun, [facility] [place] [address] [id number] [address] [place] [address] May, [facility] [address] [id number] [address] [place] [address] May, [facility] [place] [address] [id number] [address] [place] [address] May, Diabetes type 1, controlled 250.01 [facility] [place] [address] [id number] [address] [place] [address] May, [facility] [place] [address] [id number] [address] [place] [address] May, [facility] [address] [id number] [address] [place] [address] [id number] Apr, Dental examination V72.2 [facility] [place] [address] [id number] [address] [place] [id number] Apr, [facility] [place] [address] [id number] [address] [place] [address] Apr, [facility] [address] [id number] [address] [place] [id number] Apr, [facility] [address] [id number] [address] [place] [address] Apr, [facility] [place] [address] [id number] [address] [place] [address] Apr, [facility] [address] [id number] [address] [place] [address] [id number] Apr, Dental examination V72.2 [facility] [place] [address] [id number] [address] [place] [address] Apr, [facility] [place] [address] [id number] [address] [place] [id number] Apr, [facility] [place] [address] [id number] [address] [place] [address] March, Diabetes mellitus type 1 250 .01 [facility] [place] [address] [id number] [address] [place] [address] March, [facility] [place] [address] [id number] [address] [place] [id number] Feb, [facility] [place] [address] [id number] [address] [place] [address] Feb, [facility] [place] [address] [id number] [address] [place] [phone] Jan, [facility] [address] [id number] [address] [place] [address] Jan, [facility] [place] [address] [id number] [address] [place] [address] Jan, [facility] [address] [id number] [address] [place] [address] Jan, [facility] [place] [address] [id number] [address] [place] [id number] Dec, [facility] [place] [address] [id number] [address] [place] [address] Dec, [facility] [place] [address] [id number] [address] [place] [phone] Nov, [facility] [place] [address] [id number] [address] [place] [address] Nov, [facility] [place] [address] [id number] [address] [place] [id number] Nov, [facility] [address] [id number] [address] [place] [address], [place] [address] Nov, [facility] [address] [id number] [address] [place] [address], [place] [address] Nov, [facility] [address] [id number] [address] [place] [address], [place] [address] Nov, [facility] [address] [id number] [address] [place] [address], [place] [address] Nov, [facility] [address] [id number] [address] [place] [address], [place] [address] Oct, [facility] [address] [id number] [address] [place] [address], [place] [address] Oct, [facility] [address] [id number] [address] [place] [address], [place] [address] Sep, [facility] [address] [id number] [address] [place] [address], [place] [address] Aug, [facility] [address] [id number] [address] [place] [address], [place] [address] Aug, [facility] [address] [id number] [address] [place] [address], [place] [address] Aug, [facility] [address] [id number] [address] [place] [address], [place] [address] Aug, [facility] [address] [id number] [address] [place] [phone] Aug, [facility] [address] [id number] [address] [place] [address], [place] [address] Aug, [facility] [address] [id number] [address] [place] [address], [place] [address] Aug, [facility] [address] [id number] [address] [place] [address], [place] [address] Aug, [facility] [address] [id number] [address] [place] [address], [place] [address] Aug, [facility] [address] [id number] [address] [place] [address], [place] [address] Aug, [facility] [address] [id number] [address] [place] [address], [place] [address] Aug, [facility] [address] [id number] [address] [place] [address], [place] [address] Aug, [facility] [address] [id number] [address] [place] [address], [place] [address] Aug, [facility] [address] [id number] [address] [place] [address], [place] [address] Aug, [facility] [address] [id number] [address] [place] [address], [place] [address] Jul, [facility] [address] [id number] [address] [place] [address], [place] [address] Jul, [facility] [address] [id number] [address] [place] [address], [place] [address] Jul, [facility] [address] [id number] [address] [place] [address], [place] [address] Jul, [facility] [address] [id number] [address] [place] [address], [place] [address] Jun, [facility] [address] [id number] [address] [place] [address], [place] [address] Jun, [facility] [address] [id number] [address] [place] [address], [place] [address] Jun, [facility] [address] [id number] [address] [place] [address], [place] [address] Jun, [facility] [address] [id number] [address] [place] [address], [place] [address] May, [facility] [address] [id number] [address] [place] [address], [place] [address] May, [facility] [address] [id number] [facility] [place] [address] May, 2013 [facility] [address] [id number] [facility] [address] May, 2013 [facility] [address] [id number] [facility] [place] [address] May, 2013 [facility] [address] [id number] [facility] [address] May, 2013 [facility] [address] [id number] [facility] [address] May, 2013 [facility] [address] [id number] [address] [place] [address], [place] [address] May, [facility] [address] [id number] [address] [place] [address], [place] [address] May, 2013 [facility] [address] [id number] [address] [place] [address], [place] [address] May, [facility] [address] [id number] [address] [place] [address], [place] [address] May, [facility] [address] [id number] [address] [place] [address], [place] [address] May, [facility] [address] [id number] [address] [place] [address], [place] [address] May, [facility] [address] [id number] [address] [place] [address], [place] [address] Apr, [facility] [address] [id number] [address] [place] [address], [place] [address] Apr, [facility] [address] [id number] [address] [place] [address], [place] [address] Apr, [facility] [address] [id number] [address] [place] [address], [place] [address] Apr, [facility] [address] [id number] [address] [place] [address], [place] [address] Apr, [facility] [address] [id number] [facility] [address] Apr, [facility] [address] [id number] [address] [place] [address], [place] [address] Apr, [facility] [address] [id number] [address] [place] [address], [place] [address] Apr, [facility] [address] [id number] [address] [place] [address], [place] [address] Apr, [facility] [address] [id number] [address] [place] [address], [place] [address] Apr, [facility] [address] [id number] [address] [place] [address], [place] [address] Apr, [facility] [address] [id number] [address] [place] [address], [place] [address] Apr, [facility] [address] [id number] [address] [place] [address], [place] [address] Apr, [facility] [address] [id number] [address] [place] [address], [place] [address] Apr, [facility] [address] [id number] [address] [place] [address], [place] [address] March, [facility] [address] [id number] [address] [place] [address], [place] [address] March, [facility] [address] [id number] [address] [place] [address], [place] [address] March, [facility] [address] [id number] [address] [place] [address], [place] [address] March, [facility] [address] [id number] [address] [place] [address], [place] [address] March, [facility] [address] [id number] [address] [place] [address], [place] [address] March, [facility] [address] [id number] [facility] [address] March, [facility] [address] [id number] [address] [place] [address], [place] [address] March, [facility] [address] [id number] [address] [place] [address], [place] [address] March, [facility] [address] [id number] [address] [place] [address], [place] [address] March, [facility] [address] [id number] [address] [place] [address], [place] [address] Feb, [facility] [address] [id number] [address] [place] [address], [place] [address] Feb, [facility] [address] [id number] [address] [place] [address], [place] [address] Feb, [facility] [address] [id number] [address] [place] [address], [place] [address] Feb, [facility] [address] [id number] [address] [place] [address], [place] [address] Feb, [facility] [address] [id number] [address] [place] [address], [place] [address] Feb, [facility] [address] [id number] [address] [place] [address], [place] [address] Feb, [facility] [address] [id number] [address] [place] [address], [place] [address] Feb, [facility] [address] [id number] [address] [place] [address], [place] [address] Jan, [facility] [address] [id number] [address] [place] [address], [place] [address] Jan, [facility] [address] [id number] [address] [place] [address], [place] [address] Jan, [facility] [address] [id number] [address] [place] [address], [place] [address] Jan, [facility] [address] [id number] [address] [place] [address], [place] [address] Jan, [facility] [address] [id number] [address] [place] [address], [place] [address] Jan, [facility] [address] [id number] [address] [place] [address], [place] [address] Jan, [facility] [place] [address] [id number] [address] [place] [address], [place] [address] Jan, [facility] [address] [id number] [address] [place] [address], [place] [address] Jan, [facility] [address] [id number] [address] [place] [address], [place] [address] Jan, [facility] [address] [id number] [address] [place] [address], [place] [address] Dec, [facility] [address] [id number] [address] [place] [address], [place] [address] Dec, [facility] [address] [id number] [address] [place] [address], [place] [address] Nov, [facility] [address] [id number] [address] [place] [address], [place] [address] Nov, [facility] [address] [id number] [address] [place] [address], [place] [address] Nov, [facility] [address] [id number] [address] [place] [address], [place] [address] Nov, [facility] [place] [address] [id number] [address] [place] [address], [place] [address] Nov, [facility] [place] [address] [id number] [address] [place] [address], [place] [address] Nov, [facility] [place] [address] [id number] [address] [place] [address], [place] [address] Nov, [facility] [place] [address] [id number] [address] [place] [address] Nov, [facility] [address] [id number] [address] [place] [address], [place] [address] Oct, [facility] [address] [id number] [address] [place] [address] Oct, [facility] [address] [id number] [address] [place] [address], [place] [address] Oct, [facility] [address] [id number] [address] [place] [address], [place] [address] Oct, [facility] [address] [id number] [address] [place] [address], [place] [address] Oct, [facility] [address] [id number] [address] [place] [address], [place] [address] Oct, [facility] [address] [id number] [address] [place] [address] Sep, [facility] [address] [id number] [address] [place] [address], [place] [address] Sep, [facility] [address] [id number] [address] [place] [address], [place] [address] Sep, [facility] [address] [id number] [address] [place] [address] Sep, [facility] [address] [id number] [address] [place] [address] Sep, [facility] [address] [id number] [address] [place] [address] Aug, [facility] [address] [id number] [address] [place] [address] Aug, [facility] [address] [id number] [address] [place] [address] Aug, [facility] [address] [id number] [address] [place] [address] Aug, [facility] [address] [id number] [address] [place] [address], [place] [address] Aug, [facility] [address] [id number] [address] [place] [address], [place] [address] Aug, [facility] [address] [id number] [address] [place] [address], [place] [address] Jul, [facility] [address] [id number] [address] [place] [address], [place] [address] Jul, [facility] [address] [id number] [address] [place] [address], [place] [address] Jul, [facility] [address] [id number] [address] [place] [address], [place] [address] Jun, [facility] [address] [id number] [address] [place] [address], [place] [address] Jun, [facility] [address] [id number] [address] [place] [address], [place] [address] May, [facility] [address] [id number] [address] [place] [address], [place] [address] May, [facility] [address] [id number] [address] [place] [address], [place] [address] Apr, [facility] [address] [id number] [address] [place] [address], [place] [address] Apr, [facility] [address] [id number] [address] [place] [address], [place] [address] Apr, [facility] [address] [id number] [address] [place] [address], [place] [address] March, [facility] [address] [id number] [address] [place] [address], [place] [address] Feb, [facility] [address] [id number] [address] [place] [address], [place] [address] Feb, [facility] [address] [id number] [address] [place] [address], [place] [address] Jan, [facility] [address] [id number] [facility] [address] Jan, [facility] [address] [id number] [facility] [address] Jan, [facility] [address] [id number] [address] [place] [address], [place] [address] Jan, [facility] [address] [id number] [address] [place] [address], [place] [address] Jan, [facility] [address] [id number] [facility] [address] Dec, [facility] [address] [id number] [address] [place] [address], [place] [address] Dec, [facility] [address] [id number] [address] [place] [address], [place] [address] 18 Dec, 2012 [facility] [address] [id number] [address] [place] [address], [place] [address] Dec, [facility] [address] [id number] [address] [place] [address], [place] [address] 05 Dec, 2012 [facility] [address] [id number] [address] [place] [address], [place] [address] 05 Dec, 2012 [facility] [address] [place] [id number] Nov, [facility] [address] [id number] [address] [place] [address], [place] [address] Nov, [facility] [address] [id number] [address] [place] [address], [place] [address] Nov, [facility] [address] [id number] [address] [place] [address], [place] [address] Nov, [facility] [address] [id number] [address] [place] [address], [place] [address] Nov, [facility] [address] [id number] [address] [place] [address] 27 Oct, 2012 [facility] [address] [id number] [address] [place] [address], [place] [address] Oct, [facility] [address] [id number] [address] [place] [address], [place] [address] Oct, [facility] [address] [id number] [address] [place] [address], [place] [address] Oct, [facility] [address] [id number] [address] [place] [address], [place] [address] Oct, [facility] [address] [id number] [address] [place] [address], [place] [address] Oct, [facility] [address] [id number] [address] [place] [address], [place] [address] Oct, [facility] [address] [id number] [address] [place] [address], [place] [address] Oct, [facility] [address] [id number] [address] [place] [address], [place] [address] Sep, [facility] [address] [id number] [address] [place] [address], [place] [address] Sep, [facility] [address] [id number] [address] [place] [address], [place] [address] Sep, [facility] [address] [id number] [address] [place] [address], [place] [address] Sep, [facility] [address] [id number] [address] [place] [address], [place] [address] Sep, [facility] [address] [id number] [address] [place] [address], [place] [address] Sep, [facility] [address] [id number] [address] [place] [address], [place] [address] Sep, [facility] [address] [id number] [address] [place] [address], [place] [address] Sep, [facility] [address] [id number] [address] [place] [address] Sep, [facility] [address] [facility] [id number] [address] [place] [address] Sep, [facility] [address] [facility] [id number] [address] [place] [address] Sep, [facility] [address] [facility] [id number] [address] [place] [address] Sep, [facility] [address] [facility] [id number] [address] [place] [address] Sep, [facility] [address] [facility] [id number] [address] [place] [address] Sep, [facility] [address] [facility] [id number] [address] [place] [address] Sep, [facility] [address] [facility] [id number] [address] [place] [address] Sep, IMMUNIZATIONS No Known Immunizations SOCIAL HISTORY [...]
--- OUTSIDE RECORDS SUMMARY | 2020-04-17 21:46 | XMS REPORT ---
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 Fire Eater Name Role Phone BISMARK PATIÑO CP Unavailable [...] E10.49 Active Problem Gastroparesis K31.84 Active Medications No Known Medications Results No Known Results Summary Purpose [employer] Submission
--- OUTSIDE RECORDS SUMMARY | 2020-04-17 21:46 | XMS REPORT ---
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
--- OUTSIDE RECORDS SUMMARY | 2020-04-17 21:46 | XMS REPORT ---
Author Author Curt PATIÑO Organization [facility] Address [address] [place] [address] Care Team Providers Care Social Media Job Titles Name Role Phone BISMARK PATIÑO Unavailable PROBLEMS Type Condition ICD9-CM Code AON42-CV Code Onset Dates Condition S tatus SNOMED Code Problem Mood disorder F39 Active 766946 05 Problem Type 1 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 Active 88713099 Problem Type 1 diabetes mellitus with hyperglycemia E10.65 Active [id number] Problem Gastroparesis K31.84 Active 526559 006 Problem Hypertension, essential I10 Active 75567011 Problem 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 Active 55660915 Problem Type 1 diabetes mellitus with other diab etic neurological complication E10.49 Active [id number] ALLERGIES No Information ENCOUNTERS Encounter Location Date Diagnosis [facility] [address] [facility]] [id number] [address] [place] [phone] March, [facility] [address] [facility]] [id number] [address] [place] [phone] Feb, [facility] [address] [facility]] [id number] [address] [place] [phone] Feb, Type 1 diabetes mellitus wit h other diabetic neurological complication E10.49 ; Tobacco abuse Z72.0 and Tobacco abuse counseling Z71.6 [facility] [address] [facility]] [id number] [address] [place] [phone] Jan, Type 1 diabetes mellitus wit h hyperglycemia E10.65 [facility] [address] [facility]] [id number] [address] [place] [phone] Jan, [facility] [address] [facility]] [id number] [address] [place] [phone] Dec, Tobacco abuse Z72.0 [facility] [address] [facility]] [id number] [address] [place] [phone] 20 Dec, 2017 Type 1 diabetes mellitus wit h hyperglycemia E10.65 [facility] [address] [facility]] [id number] [address] [place] [phone] Dec, Type 1 diabetes mellitus wit h hyperglycemia E10.65 ; Tobacco abuse Z72.0 and Tobacco abuse counseling Z71.6 [facility] [address] [facility]NOTE [facility]] [id number] [address] [place] [phone] Nov, Type 1 diabetes mellitus wit h hyperglycemia E10.65 [facility] [address] [facility]] [id number] [address] [place] [phone] Oct, Type 1 diabetes mellitus wit h hyperglycemia E10.65 [facility] [address] [facility]] [id number] [address] [place] [address] Oct, Type 1 diabetes mellitus wit h hyperglycemia E10.65 [facility] [address] [facility] 3] [id number] [address] [place] [phone] Sep, Type 1 diabetes mellitus wit h hyperglycemia E10.65 [facility] [address] [facility]] [id number] [address] [place] [phone] Aug, Type 1 diabetes mellitus wit h hyperglycemia E10.65 [facility] [address] [facility]] [id number] [address] [place] [phone] Aug, [facility] [address] [facility]] [id number] [address] [place] [address] Aug, Type 1 diabetes mellitus wit h hyperglycemia E10.65 [facility] [address] [facility]] [id number] [address] [place] [phone] Aug, Encounter for immunization Z 23 [facility] [address] [facility]] [id number] [address] [place] [phone] Aug, Type 1 diabetes mellitus wit h hyperglycemia E10.65 [facility] [address] [facility]] [id number] [address] [place] [phone] Jul, Type 1 diabetes mellitus wit h hyperglycemia E10.65 [place] [address] [id number] [address] [place] [phone] Jul, Type 1 diabetes mellitus wit h hyperglycemia E10.65 [facility] [address] [id number] [address] [place] [phone] May, Type 1 diabetes mellitus wit h hyperglycemia E10.65 [facility] [address] [id number] [address] [place] [phone] May, [facility] [address] [id number] [address] [place] [phone] Apr, [facility] [address] [id number] [address] [place] [phone] Apr, Type 1 diabetes mellitus wit h hyperglycemia E10.65 [facility] [address] [id number] [address] [place] [phone] March, [facility] [address] [id number] [address] [place] [phone] March, [facility] [address] [id number] [address] [place] [phone] Jan, [facility] [address] [id number] [address] [place] [phone] Jan, [facility] [address] [facility]] [id number] [address] [place] [phone] Jan, Type 1 diabetes mellitus wit h diabetic polyneuropathy E10.42 [facility] [address] [id number] [address] [place] [phone] Jan, Type 1 diabetes mellitus wit h hyperglycemia E10.65 ; Excessive cerumen in both ear canals H61.23 and Controlled diabetes mellitus type 1 without complications E10.9 [facility] [address] [id number] [address] [place] [phone] Dec, [facility] [address] [facility]] [id number] [address] [place] [phone] Dec, [facility] [address] [id number] [address] [place] [phone] Dec, [facility] [address] [id number] [address] [place] [phone] Dec, [facility] [address] [id number] [address] [place] [phone] Nov, [facility] [address] [id number] [address] [place] [phone] Nov, [facility] [address] [id number] [address] [place] [phone] Oct, Type 1 diabetes mellitus wit h hyperglycemia E10.65 [facility] [address] [id number] [address] [place] [phone] Sep, [facility] [address] [id number] [address] [place] [phone] Sep, [facility] [address] [id number] [address] [place] [phone] Sep, Controlled diabetes mellitus type 1 without complications E10.9 [facility] [address] [id number] [address] [place] [phone] Sep, [facility] [address] [id number] [address] [place] [id number] Aug, Dental caries K02.9 [facility] [address] [id number] [address] [place] [phone] Aug, Type 1 diabetes mellitus wit h diabetic polyneuropathy E10.42 [facility] [address] [id number] [address] [place] [phone] Aug, [facility] [address] [id number] [address] [place] [phone] Aug, [facility] [address] [id number] [address] [place] [phone] Aug, [facility] [address] [id number] [address] [place] [phone] Jul, Type 1 diabetes mellitus wit h hyperglycemia E10.65 [facility] [address] [id number] [address] [place] [phone] Jul, Type 1 diabetes mellitus wit h hyperglycemia E10.65 ; Tooth pain K08.8 and Encounter for immunization Z23 [facility] [address] [id number] [address] [place] [address] [id number] Jul, 2016 Dental examination Z01.20 [facility] [address] [id number] [address] [place] [phone] 08 Jul, 2016 [facility] [address] [id number] [address] [place] [phone] 07 Jul, 2016 [facility] [address] [id number] [address] [place] [phone] Jul, [facility] [address] [id number] [address] [place] [phone] Jun, [facility] [address] [id number] [address] [place] [phone] May, [facility] [address] [id number] [address] [place] [phone] Apr, [facility] [address] [id number] [address] [place] [phone] Apr, [facility] [address] [id number] [address] [place] [phone] Apr, [facility] [address] [id number] [address] [place] [phone] March, [facility] [address] [id number] [address] [place] [phone] March, [facility] [address] [id number] [address] [place] [phone] Feb, [facility] [address] [id number] [address] [place] [phone] Feb, [facility] [address] [facility]] [id number] [address] [place] [phone] Feb, Type 1 diabetes mellitus wit h hyperglycemia E10.65 [facility] [address] [facility]] [id number] [address] [place] [phone] Jan, [facility] [address] [facility]] [id number] [address] [place] [phone] Jan, [facility] [address] [facility]] [id number] [address] [place] [phone] Jan, [facility] [address] [facility] 3] [id number] [address] [place] [phone] Jan, [facility] [address] [facility]] [id number] [address] [place] [phone] Dec, [facility] [address] [facility]] [id number] [address] [place] [phone] Nov, [facility] [address] [facility]] [id number] [address] [place] [phone] Nov, [facility] [address] [facility]] [id number] [address] [place] [phone] Oct, [facility] [address] [facility]] [id number] [address] [place] [phone] 04 Oct, 2015 Type 1 diabetes mellitus wit h 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 ; Type 1 diabetes mellitus with hyperglycemia E10.65 ; Gastroparesis K31.84 and Esophageal stricture K22.2 [facility] [address] [facility]] [id number] [address] [place] [phone] Oct, [facility] [address] [facility]] [id number] [address] [place] [phone] Sep, [facility] [address] [facility]] [id number] [address] [place] [phone] Sep, Type 1 diabetes mellitus wit h other diabetic neurological complication E10.49 [facility] [address] [facility]] [id number] [address] [place] [phone] Aug, Encounter for immunization Z 23 [facility] [address] [id number] [address] [place] [phone] Aug, [facility] [address] [id number] [address] [place] [phone] Aug, [facility] [address] [id number] [address] [place] [phone] Jul, [facility] [address] [id number] [address] [place] [phone] Jul, [facility] [address] [id number] [address] [place] [phone] Jun, [facility] [address] [id number] [address] [place] [phone] Jun, [facility] [address] [id number] [address] [place] [phone] Jun, [facility] [address] [id number] [address] [place] [phone] May, [facility] [address] [id number] [address] [place] [phone] May, [facility] [address] [id number] [address] [place] [phone] May, Diabetes type 1, controlled 250.01 [facility] [address] [id number] [address] [place] [phone] May, [facility] [address] [id number] [address] [place] [phone] May, [facility] [address] [id number] [address] [place] [id number] Apr, Dental examination V72.2 [facility] [address] [id number] [address] [place] [phone] Apr, [facility] [address] [id number] [address] [place] [phone] Apr, [facility] [address] [id number] [address] [place] [phone] Apr, [facility] [address] [id number] [address] [place] [phone] Apr, [facility] [address] [id number] [address] [place] [phone] Apr, [facility] [address] [id number] [address] [place] [address] [id number] Apr, Dental examination V72.2 [facility] [address] [id number] [address] [place] [phone] Apr, [facility] [address] [id number] [address] [place] [phone] Apr, [facility] [address] [id number] [address] [place] [phone] March, Diabetes mellitus type 1 250 .01 [facility] [address] [id number] [address] [place] [phone] March, [facility] [address] [id number] [address] [place] [phone] Feb, [facility] [address] [id number] [address] [place] [phone] Feb, [facility] [address] [id number] [address] [place] [phone] Jan, [facility] [address] [id number] [address] [place] [phone] Jan, [facility] [address] [id number] [address] [place] [phone] Jan, [facility] [address] [id number] [address] [place] [phone] Jan, [facility] [address] [id number] [address] [place] [phone] Dec, [facility] [address] [id number] [address] [place] [address], [place] [phone] Dec, [facility] [address] [id number] [address] [place] [address], [place] [address] Nov, [facility] [address] [id number] [address] [place] [address], [place] [phone] Nov, [facility] [address] [id number] [address] [place] [address], [place] [address] Nov, [facility] [address] [id number] [address] [place] [address], [place] [address] Nov, [facility] [address] [id number] [address] [place] [address], [place] [address] Nov, [facility] [address] [id number] [address] [place] [address], [place] [phone] Nov, [facility] [address] [id number] [address] [place] [address], [place] [address] Nov, [facility] [address] [id number] [address] [place] [address], [place] [address] Oct, [facility] [address] [id number] [address] [place] [address], [place] [address] Oct, [facility] [address] [id number] [address] [place] [address], [place] [address] Sep, [facility] [address] [id number] [address] [place] [address], [place] [address] Aug, [facility] [address] [id number] [address] [place] [address], [place] [address] Aug, [facility] [address] [id number] [address] [place] [address], [place] [address] Aug, [facility] [address] [id number] [address] [place] [address], [place] [address] Aug, [facility] [address] [id number] [address] [place] [address], [place] [address] Aug, [facility] [address] [id number] [address] [place] [address], [place] [address] Aug, [facility] [address] [id number] [address] [place] [address], [place] [address] Aug, [facility] [address] [id number] [address] [place] [address], [place] [address] Aug, [facility] [address] [id number] [address] [place] [address], [place] [address] Aug, [facility] [address] [id number] [address] [place] [address], [place] [address] Aug, [facility] [address] [id number] [address] [place] [address], [place] [address] Aug, [facility] [address] [id number] [address] [place] [address], [place] [address] Aug, [facility] [address] [id number] [address] [place] [address], [place] [address] Aug, [facility] [address] [id number] [address] [place] [address], [place] [address] Aug, [facility] [address] [id number] [address] [place] [address], [place] [address] Jul, [facility] [address] [id number] [address] [place] [address], [place] [address] Jul, [facility] [address] [id number] [address] [place] [phone] Jul, [facility] [address] [id number] [address] [place] [address], [place] [address] Jul, [facility] [address] [id number] [address] [place] [address], [place] [address] Jun, [facility] [address] [id number] [address] [place] [address], [place] [address] Jun, [facility] [address] [id number] [facility] [place] [address] Jun, [facility] [address] [id number] [address] [place] [address], [place] [address] Jun, [facility] [address] [id number] [address] [place] [address], [place] [address] May, [facility] [address] [id number] [address] [place] [address], [place] [address] May, [facility] [address] [id number] [address] [place] [address], [place] [address] May, [facility] [address] [id number] [address] [place] [address], [place] [address] May, [facility] [address] [id number] [address] [place] [address], [place] [address] May, [facility] [address] [id number] [address] [place] [address], [place] [address] May, [facility] [address] [id number] [address] [place] [address], [place] [address] May, [facility] [address] [id number] [address] [place] [address], [place] [address] May, [facility] [address] [id number] [address] [place] [address], [place] [address] May, [facility] [address] [id number] [address] [place] [address], [place] [address] May, [facility] [address] [id number] [address] [place] [address], [place] [address] May, [facility] [address] [id number] [address] [place] [address], [place] [address] May, [facility] [address] [id number] [address] [place] [address], [place] [address] May, [facility] [address] [id number] [address] [place] [address], [place] [address] Apr, [facility] [address] [id number] [facility] [place] [address] Apr, [facility] [address] [id number] [facility] [place] [address] Apr, [facility] [address] [id number] [facility] [place] [address] Apr, [facility] [address] [id number] [address] [place] [address], [place] [address] Apr, [facility] [address] [id number] [address] [place] [address], [place] [address] Apr, [facility] [address] [id number] [address] [place] [address], [place] [address] Apr, [facility] [address] [id number] [address] [place] [address], [place] [address] Apr, [facility] [address] [id number] [address] [place] [address], [place] [address] Apr, [facility] [address] [id number] [address] [place] [address], [place] [address] Apr, [facility] [address] [id number] [address] [place] [address], [place] [address] Apr, [facility] [address] [id number] [address] [place] [address], [place] [address] Apr, [facility] [address] [id number] [address] [place] [address], [place] [address] Apr, [facility] [address] [id number] [address] [place] [address], [place] [address] Apr, [facility] [address] [id number] [address] [place] [address], [place] [address] March, [facility] [address] [id number] [address] [place] [address], [place] [address] March, [facility] [address] [id number] [address] [place] [address], [place] [address] March, [facility] [address] [id number] [address] [place] [address], [place] [address] March, [facility] [address] [address] [id number] [address] [place] [address], [place] [address] March, [facility] [address] [id number] [address] [place] [address], [place] [address] March, [facility] [address] [id number] [address] [place] [address], [place] [address] March, [facility] [address] [id number] [address] [place] [address], [place] [address] March, [facility] [address] [id number] [address] [place] [address], [place] [address] March, [facility] [address] [id number] [address] [place] [address], [place] [address] March, [facility] [address] [id number] [address] [place] [address], [place] [address] Feb, [facility] [address] [id number] [address] [place] [address], [place] [address] Feb, [facility] [address] [id number] [address] [place] [address], [place] [address] Feb, [facility] [address] [id number] [address] [place] [address], [place] [address] Feb, [facility] [address] [id number] [address] [place] [address], [place] [address] Feb, [facility] [address] [id number] [address] [place] [address], [place] [address] Feb, [facility] [address] [id number] [address] [place] [address], [place] [address] Feb, [facility] [address] [id number] [address] [place] [address], [place] [address] Feb, [facility] [address] [id number] [facility] [place] [address] 18 Jan, 2014 [facility] [address] [id number] [facility] [place] [address] Jan, [facility] [address] [id number] [facility] [place] [address] Jan, [facility] [address] [id number] [facility] [place] [address] Jan, [facility] [address] [id number] [address] [place] [address], [place] [address] Jan, [facility] [address] [id number] [address] [place] [address], [place] [address] Jan, [facility] [address] [id number] [address] [place] [address], [place] [address] Jan, [facility] [address] [id number] [address] [place] [address], [place] [address] Jan, [facility] [address] [id number] [address] [place] [address], [place] [address] Jan, [facility] [address] [id number] [address] [place] [address], [place] [address] Jan, [facility] [address] [id number] [address] [place] [address], [place] [address] Dec, [facility] [address] [id number] [address] [place] [address], [place] [address] Dec, [facility] [address] [id number] [address] [place] [address], [place] [address] Nov, [facility] [address] [id number] [address] [place] [address], [place] [address] Nov, [facility] [address] [id number] [address] [place] [address], [place] [address] Nov, [facility] [address] [id number] [address] [place] [address], [place] [address] Nov, [facility] [address] [id number] [address] [place] [address], [place] [address] Nov, [facility] [address] [id number] [address] [place] [address], [place] [address] Nov, [facility] [address] [id number] [address] [place] [address], [place] [address] Nov, [facility] [address] [id number] [address] [place] [address], [place] [address] Nov, [facility] [address] [id number] [address] [place] [address], [place] [address] Oct, [facility] [address] [id number] [address] [place] [address], [place] [address] Oct, [facility] [address] [id number] [address] [place] [address], [place] [address] Oct, [facility] [address] [id number] [address] [place] [address], [place] [address] Oct, [facility] [address] [id number] [address] [place] [address], [place] [address] Oct, [facility] [address] [id number] [address] [place] [address], [place] [address] Oct, [facility] [address] [id number] [address] [place] [address], [place] [address] Sep, [facility] [address] [id number] [address] [place] [address], [place] [address] Sep, [facility] [address] [id number] [address] [place] [address], [place] [address] Sep, [facility] [address] [id number] [address] [place] [address], [place] [address] Sep, [facility] [address] [id number] [address] [place] [address], [place] [address] 05 Sep, 2013 [facility] [address] [id number] [address] [place] [address], [place] [address] Aug, [facility] [address] [id number] [address] [place] [address], [place] [address] Aug, [facility] [address] [id number] [address] [place] [address], [place] [address] Aug, [facility] [address] [id number] [address] [place] [address], [place] [address] Aug, [facility] [address] [id number] [address] [place] [address], [place] [address] Aug, [facility] [address] [id number] [address] [place] [address], [place] [address] Aug, [facility] [address] [id number] [address] [place] [address], [place] [address] Jul, [facility] [address] [id number] [address] [place] [address], [place] [address] Jul, [facility] [address] [id number] [address] [place] [address], [place] [address] Jul, [facility] [address] [id number] [address] [place] [address], [place] [address] Jun, [facility] [address] [id number] [address] [place] [address], [place] [address] Jun, [facility] [address] [id number] [address] [place] [address], [place] [address] May, [facility] [address] [id number] [address] [place] [address], [place] [address] May, [facility] [address] [id number] [address] [place] [address], [place] [address] Apr, [facility] [address] [id number] [address] [place] [address], [place] [address] Apr, [facility] [address] [id number] [address] [place] [address], [place] [address] Apr, [facility] [address] [id number] [address] [place] [address], [place] [address] March, [facility] [address] [id number] [address] [place] [address], [place] [address] Feb, [facility] [address] [id number] [address] [place] [address], [place] [address] Feb, [facility] [address] [id number] [address] [place] [address], [place] [address] Jan, [facility] [address] [id number] [address] [place] [address], [place] [address] Jan, [facility] [address] [id number] [address] [place] [address], [place] [address] Jan, [facility] [address] [id number] [address] [place] [address], [place] [address] Jan, [facility] [address] [id number] [address] [place] [address], [place] [address] Jan, [facility] [address] [id number] [address] [place] [address], [place] [address] Dec, [facility] [address] [id number] [address] [place] [address], [place] [address] Dec, [facility] [address] [id number] [address] [place] [address], [place] [address] Dec, [facility] [address] [id number] [address] [place] [address], [place] [address] Dec, [facility] [address] [id number] [address] [place] [address], [place] [address] Dec, [facility] [address] [id number] [address] [place] [address], [place] [address] Dec, [facility] [address] [place] [id number] Nov, [facility] [address] [id number] [address] [place] [address] [place] [address] 11 Nov, 2012 [facility] [address] [id number] [address] [place] [address], [place] [address] Nov, [facility] [address] [id number] [address] [place] [address], [place] [address] Nov, [facility] [address] [id number] [address] [place] [address], [place] [address] Nov, [facility] [address] [id number] [address] [place] [address], [place] [address] Oct, [facility] [address] [id number] [address] [place] [address], [place] [address] Oct, [facility] [address] [id number] [address] [place] [address], [place] [address] Oct, [facility] [address] [id number] [address] [place] [address], [place] [address] Oct, [facility] [address] [id number] [address] [place] [address], [place] [address] Oct, [facility] [address] [id number] [address] [place] [address], [place] [address] Oct, [facility] [address] [id number] [address] [place] [address], [place] [address] Oct, [facility] [address] [id number] [address] [place] [address], [place] [address] Oct, [facility] [address] [id number] [address] [place] [address], [place] [address] Sep, [facility] [address] [id number] [address] [place] [address], [place] [address] Sep, [facility] [address] [id number] [address] [place] [address], [place] [address] Sep, [facility] [address] [id number] [address] [place] [address], [place] [address] Sep, [facility] [address] [id number] [address] [place] [address] Sep, [facility] [address] [id number] [address] [place] [address] Sep, [facility] [address] [id number] [address] [place] [address] Sep, [facility] [address] [id number] [address] [place] [address] Sep, [facility] [address] [id number] [address] [place] [phone] Sep, [facility] [address] [id number] [address] [place] [address] Sep, [facility] [address] [id number] [address] [place] [address] Sep, [facility] [address] [id number] [address] [place] [address] Sep, [facility] [address] [id number] [address] [place] [address] Sep, [facility] [address] [id number] [address] [place] [address] Sep, [facility] [address] [id number] [address] [place] [address] Sep, [facility] [address] [id number] [address] [place] [address] Sep, IMMUNIZATIONS No Known Immunizations SOCIAL HISTORY Never Assessed REASON FOR VISIT upload with minor change PLAN OF CARE VITAL SIGNS MEDICATIONS [...]
--- OUTSIDE RECORDS SUMMARY | 2020-04-17 21:46 | XMS REPORT ---
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 Yarn Preparation Supervisor Name Role Phone BISMARK PATIÑO CP Unavailable [...]
--- OUTSIDE RECORDS SUMMARY | 2020-04-17 21:46 | XMS REPORT ---
Author Author Curt PATIÑO Organization [facility] [place] Address [address] [place] [address] Care Team Providers Care Coordinator Hotels Name Role Phone BISMARK PATIÑO Unavailable PROBLEMS Type Condition ICD9-CM Code [id number] Code Onset Dates Condition S tatus SNOMED Code Problem Mood disorder F39 Active 079519 05 Problem Type 1 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 Active 51337471 Problem Type 1 diabetes mellitus with hyperglycemia E10.65 Active 954049068510223 Problem Gastroparesis K31.84 Active 260280 006 Problem Hypertension, essential I10 Active 98714271 Problem 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
--- OUTSIDE RECORDS SUMMARY | 2020-04-17 21:46 | XMS REPORT ---
Author Author Curt PATIÑO Organization [facility] Address [address] [place] [address] Care Team Providers Care Cesspool Cleaner Name Role Phone BISMARK PATIÑO Unavailable PROBLEMS Type Condition ICD9-CM Code [id number] Code Onset Dates Condition S tatus SNOMED Code Problem Mood disorder F39 Active 206414 05 Problem Type 1 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 Active 36327484 Problem Type 1 diabetes mellitus with hyperglycemia E10.65 Active 258287298564193 Problem Gastroparesis K31.84 Active 586788 006 Problem Hypertension, essential I10 Active 37139322 Problem 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 Active 25930221 Problem Type 1 diabetes mellitus with other diab etic neurological complication E10.49 Active 68220973 ALLERGIES Substance Reaction Event Type Date Status Cipro Unknown Drug Allergy Jan, Active Sulfa(sulfonamide Antibiotics) Unknown Non Drug Allergy Jan Active SOCIAL HISTORY Never Assessed PLAN OF CARE Activity Details Follow Up 3 Months Reason: VITAL SIGNS Height 68 in 2017-01-20 Weight 158.1 lbs 2017-01-20 Temperature 98.0 degrees Fahrenheit 2017-01-20 Heart Rate 72 bpm 2017-01-20 Respiratory Rate 18 2017-01-20 BMI 24.04 kg/m2 2017-01-20 Blood pressure systolic 144 mmHg 2017-01-20 Blood pressure diastolic 80 mmHg 2017-01-20 MEDICATIONS Medication Instructions Dosage Frequency Start Date End Date Duration S tatus Genaro Contour Next Test TEST BLOOD FOUR TIMES A DAY. DIAG. 250.5 0 90 Active Glucagon Emergency 1 MG as directed May, 1 dose Active Genaro Contour Test N/A test blood sugar 6h Jul, Active Debrox 6.5 % Otic Twice a day 5 drops into affected ear 12h Jan, Jan, 4 day(s) Active Genaro Contour Next Test - TEST BLOOD FOUR TIMES A DAY. DIAG. 250 .50 90 Active NovoLog 100 UNIT/ML up to 45 units daily Active Diazepam 10 mg Orally 3 times a day 1 tablet 8h 28 days Active Chantix 1 MG Orally Twice a day 1 tablet 12h Jan, 28 2016 30 day(s) Active Enalapril Maleate 10 mg 1 tablet 24h Active RESULTS Name Result Date Reference Range A1C (IN HOUSE) 2017-01-20 A1C IN HOUSE 7.0 4.3 - 5.6 % Previous A1c 7.5 Lot [id number] Exp date 09/2018 MICROALBUMIN, URINE (IN HOUSE) 2017-01-20 MICROALBUMIN abnormal Lot # [id number] Exp date 12/2017 Clarity clear Color yellow ALB 150 CRE 200 A:C (IN HOUSE) 30-300 Control + Control Lot # Exp date MICROALBUMIN/CREATININE RATIO, URINE 2017-01-20 Creatinine, Urine 115.6 Not Estab. Microalbumin, Urine 499.2 Not Estab. Microalb/Creat Ratio 431.8 0.0-30.0 PROCEDURES Procedure Date Ordered Result Body Site GLYCATED HEMOGLOBIN TEST January 20, 2017 MICROALBUMIN, SEMIQUANT January 20, 2017 FQ VISIT ESTABLISHED PATIENT January 20, 2017 [facility] January 20, 2017 IMMUNIZATIONS No Known Immunizations MEDICAL (GENERAL) HISTORY Type Description Date Medical History hypertension Medical History type I diabetes Medical History chronic renal insufficiency Surgical History gastric pacemaker 2008 Hospitalization History nausea 2011
--- OUTSIDE RECORDS SUMMARY | 2020-04-17 21:46 | XMS REPORT ---
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 Name Role Phone BISMARK PATIÑO Unavailable PROBLEMS Type Condition ICD9-CM Code MYB15-FR Code Onset Dates Condition S tatus SNOMED Code Problem Mood disorder F39 Active 479164 05 Problem Type 1 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 Active 96512166 Problem Type 1 diabetes mellitus with hyperglycemia E10.65 Active [id number] Problem Gastroparesis K31.84 Active 555297 006 Problem Hypertension, essential I10 Active 14828060 Problem 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 Active 09941656 Problem Type 1 diabetes mellitus with other diab etic neurological complication E10.49 Active [id number] ALLERGIES No Information ENCOUNTERS Encounter Location Date Diagnosis [facility] [address] [facility] [id number] [address] [place] [id number] March, [facility] [address] [facility] [id number] [address] [place] [id number] Feb, [facility] [address] [facility] [id number] [address] [place] [phone] Feb, Type 1 diabetes mellitus wit h other diabetic neurological complication E10.49 ; Tobacco abuse Z72.0 and Tobacco abuse counseling Z71.6 [facility] [address] [facility] [id number] [address] [place] [phone] Jan, Type 1 diabetes mellitus wit h hyperglycemia E10.65 [facility] [address] [facility] [id number] [address] [place] [id number] Jan, [facility] [address] [facility] [id number] [address] [place] [phone] Dec, Tobacco abuse Z72.0 [facility] [address] [facility] [id number] [address] [place] [id number] 20 Dec, 2017 Type 1 diabetes mellitus wit h hyperglycemia E10.65 [facility] [address] [facility] [id number] [address] [place] [id number] Dec, Type 1 diabetes mellitus wit h hyperglycemia E10.65 ; Tobacco abuse Z72.0 and Tobacco abuse counseling Z71.6 [facility] [address] [facility] [id number] [address] [place] [phone] Nov, Type 1 diabetes mellitus wit h hyperglycemia E10.65 [facility] [address] [facility] [id number] [address] [place] [id number] Oct, Type 1 diabetes mellitus wit h hyperglycemia E10.65 [facility] [address] [facility] [id number] [address] [place] [phone] Oct, Type 1 diabetes mellitus wit h hyperglycemia E10.65 [facility] [address] [facility] [id number] [address] [place] [id number] Sep, Type 1 diabetes mellitus wit h hyperglycemia E10.65 [facility] [address] [facility] [id number] [address] [place] [id number] Aug, Type 1 diabetes mellitus wit h hyperglycemia E10.65 [facility] [address] [facility] [id number] [address] [place] [id number] Aug, [facility] [address] [facility] [id number] [address] [place] [id number] Aug, Type 1 diabetes mellitus wit h hyperglycemia E10.65 [facility] [address] [facility] [id number] [address] [place] [id number] Aug, Encounter for immunization Z 23 [facility] [address] [facility] [id number] [address] [place] [phone] Aug, Type 1 diabetes mellitus wit h hyperglycemia E10.65 [facility] [address] [facility] [id number] [address] [place] [id number] Jul, Type 1 diabetes mellitus wit h hyperglycemia E10.65 [place] [place] [address] [id number] [address] [place] [id number] Jul, Type 1 diabetes mellitus wit h hyperglycemia E10.65 [facility] [address] [id number] [address] [place] [id number] May, Type 1 diabetes mellitus wit h hyperglycemia E10.65 [facility] [address] [id number] [address] [place] [id number] May, [facility] [address] [id number] [address] [place] [id number] Apr, [facility] [address] [id number] [address] [place] [id number] Apr, Type 1 diabetes mellitus wit h hyperglycemia E10.65 [facility] [address] [id number] [address] [place] [id number] March, [facility] [address] [id number] [address] [place] [id number] March, [facility] [address] [id number] [address] [place] [id number] Jan, [facility] [address] [id number] [address] [place] [id number] Jan, [facility] [address] [facility] [id number] [address] [place] [id number] Jan, Type 1 diabetes mellitus wit h diabetic polyneuropathy E10.42 [facility] [address] [id number] [address] [place] [id number] Jan, Type 1 diabetes mellitus wit h hyperglycemia E10.65 ; Excessive cerumen in both ear canals H61.23 and Controlled diabetes mellitus type 1 without complications E10.9 [facility] [address] [id number] [address] [place] [id number] Dec, [facility] [address] [facility] [id number] [address] [place] [phone] Dec, [facility] [address] [id number] [address] [place] [phone] Dec, [facility] [address] [id number] [address] [place] [id number] Dec, [facility] [address] [id number] [address] [place] [phone] Nov, [facility] [address] [id number] [address] [place] [id number] Nov, [facility] [address] [id number] [address] [place] [id number] Oct, Type 1 diabetes mellitus wit h hyperglycemia E10.65 [facility] [address] [id number] [address] [place] [id number] Sep, [facility] [address] [id number] [address] [place] [id number] Sep, [facility] [address] [id number] [address] [place] [id number] Sep, Controlled diabetes mellitus type 1 without complications E10.9 [facility] [address] [id number] [address] [place] [id number] Sep, [facility] [address] [id number] [address] [place] [id number] Aug, Dental caries K02.9 [facility] [address] [id number] [address] [place] [id number] Aug, Type 1 diabetes mellitus wit h diabetic polyneuropathy E10.42 [facility] [address] [id number] [address] [place] [id number] Aug, [facility] [address] [id number] [address] [place] [id number] Aug, [facility] [address] [id number] [address] [place] [id number] Aug, [facility] [address] [id number] [address] [place] [id number] Jul, Type 1 diabetes mellitus wit h hyperglycemia E10.65 [facility] [address] [id number] [address] [place] [id number] Jul, Type 1 diabetes mellitus wit h hyperglycemia E10.65 ; Tooth pain K08.8 and Encounter for immunization Z23 [facility] [address] [id number] [address] [place] [id number] Jul, 2016 Dental examination Z01.20 [facility] [address] [id number] [address] [place] [phone] 08 Jul, 2016 [facility] [address] [id number] [address] [place] [id number] 07 Jul, 2016 [facility] [address] [id number] [address] [place] [id number] Jul, [facility] [address] [id number] [address] [place] [id number] Jun, [facility] [address] [id number] [address] [place] [id number] May, [facility] [address] [id number] [address] [place] [id number] Apr, [facility] [address] [id number] [address] [place] [id number] Apr, [facility] [address] [id number] [address] [place] [phone] Apr, [facility] [address] [id number] [address] [place] [phone] March, [facility] [address] [id number] [address] [place] [id number] March, [facility] [address] [id number] [address] [place] [phone] Feb, [facility] [address] [id number] [address] [place] [id number] Feb, [facility] [address] [facility] [id number] [address] [place] [id number] Feb, Type 1 diabetes mellitus wit h hyperglycemia E10.65 [facility] [address] [facility] [id number] [address] [place] [id number] Jan, [facility] [address] [facility] [id number] [address] [place] [phone] Jan, [facility] [address] [facility] [id number] [address] [place] [id number] Jan, [facility] [address] [facility] [id number] [address] [place] [id number] Jan, [facility] [address] [facility] [id number] [address] [place] [phone] Dec, [facility] [address] [facility] [id number] [address] [place] [id number] Nov, [facility] [address] [facility] [id number] [address] [place] [id number] Nov, [facility] [address] [facility] [id number] [address] [place] [id number] Oct, [facility] [address] [facility] [id number] [address] [place] [id number] 04 Oct, 2015 Type 1 diabetes mellitus wit h 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 ; Type 1 diabetes mellitus with hyperglycemia E10.65 ; Gastroparesis K31.84 and Esophageal stricture K22.2 [facility] [address] [facility] [id number] [address] [place] [id number] Oct, [facility] [address] [facility] [id number] [address] [place] [phone] Sep, [facility] [address] [facility] [id number] [address] [place] [id number] Sep, Type 1 diabetes mellitus wit h other diabetic neurological complication E10.49 [facility] [address] [facility] [id number] [address] [place] [id number] Aug, Encounter for immunization Z 23 [facility] [address] [id number] [address] [place] [id number] Aug, [facility] [address] [id number] [address] [place] [phone] Aug, [facility] [address] [id number] [address] [place] [id number] Jul, [facility] [address] [id number] [address] [place] [id number] Jul, [facility] [address] [id number] [address] [place] [phone] Jun, [facility] [address] [id number] [address] [place] [id number] Jun, [facility] [address] [id number] [address] [place] [id number] Jun, [facility] [address] [id number] [address] [place] [id number] May, [facility] [address] [id number] [address] [place] [id number] May, [facility] [address] [id number] [address] [place] [phone] May, Diabetes type 1, controlled 250.01 [facility] [address] [id number] [address] [place] [id number] May, [facility] [address] [id number] [address] [place] [phone] May, [facility] [address] [id number] [address] [place] [id number] Apr, Dental examination V72.2 [facility] [address] [id number] [address] [place] [phone] Apr, [facility] [address] [id number] [address] [place] [id number] Apr, [facility] [address] [id number] [address] [place] [phone] Apr, [facility] [address] [id number] [address] [place] [id number] Apr, [facility] [address] [id number] [address] [place] [id number] Apr, [facility] [address] [id number] [address] [place] [id number] Apr, Dental examination V72.2 [facility] [address] [id number] [address] [place] [id number] Apr, [facility] [address] [id number] [address] [place] [phone] Apr, [facility] [address] [id number] [address] [place] [id number] March, Diabetes mellitus type 1 250 .01 [facility] [address] [id number] [address] [place] [id number] March, [facility] [address] [id number] [address] [place] [id number] Feb, [facility] [address] [id number] [address] [place] [id number] Feb, [facility] [address] [id number] [address] [place] [id number] Jan, [facility] [address] [id number] [address] [place] [phone] Jan, [facility] [address] [id number] [address] [place] [id number] Jan, [facility] [address] [id number] [address] [place] [id number] Jan, [facility] [address] [id number] [address] [place] [phone] Dec, [facility] [address] [id number] [address] [place] [address], [place] [id number] Dec, [facility] [address] [id number] [address] [place] [address], [place] [id number] Nov, [facility] [address] [id number] [address] [place] [address], [place] [address] Nov, [facility] [address] [id number] [address] [place] [address], [place] [id number] Nov, [facility] [address] [id number] [address] [place] [address], [place] [address] Nov, [facility] [address] [id number] [address] [place] [address], [place] [address] Nov, [facility] [address] [id number] [address] [place] [address], [place] [id number] Nov, [facility] [address] [id number] [address] [place] [address], [place] [address] Nov, [facility] [address] [id number] [address] [place] [address], [place] [id number] Oct, [facility] [address] [id number] [address] [place] [address], [place] [id number] Oct, [facility] [address] [id number] [address] [place] [address], [place] [address] Sep, [facility] [address] [id number] [address] [place] [address], [place] [id number] Aug, [facility] [address] [id number] [address] [place] [address], [place] [id number] Aug, [facility] [address] [id number] [address] [place] [address], [place] [address] Aug, [facility] [address] [id number] [address] [place] [address], [place] [id number] Aug, [facility] [address] [id number] [address] [place] [address], [place] [address] Aug, [facility] [address] [id number] [address] [place] [address], [place] [address] Aug, [facility] [address] [id number] [address] [place] [address], [place] [address] Aug, [facility] [address] [id number] [address] [place] [address], [place] [address] Aug, [facility] [address] [id number] [address] [place] [address], [place] [address] Aug, [facility] [address] [id number] [address] [place] [address], [place] [address] Aug, [facility] [address] [id number] [address] [place] [address], [place] [address] Aug, [facility] [address] [id number] [address] [place] [address], [place] [address] Aug, [facility] [address] [id number] [address] [place] [address], [place] [address] Aug, [facility] [address] [id number] [address] [place] [address], [place] [address] Aug, [facility] [address] [id number] [address] [place] [address], [place] [address] Jul, [facility] [address] [id number] [address] [place] [address], [place] [address] Jul, [facility] [address] [id number] [address] [place] [id number] Jul, [facility] [address] [id number] [address] [place] [address], [place] [address] Jul, [facility] [address] [id number] [address] [place] [address], [place] [address] Jun, [facility] [address] [id number] [address] [place] [address], [place] [address] Jun, [facility] [address] [id number] [facility] [place] [address] Jun, [facility] [address] [id number] [address] [place] [address], [place] [address] Jun, [facility] [address] [id number] [address] [place] [address], [place] [address] May, [facility] [address] [id number] [address] [place] [address], [place] [address] May, [facility] [address] [id number] [address] [place] [address], [place] [address] May, [facility] [address] [id number] [address] [place] [address], [place] [address] May, [facility] [address] [id number] [address] [place] [address], [place] [address] May, [facility] [address] [id number] [address] [place] [address], [place] [address] May, [facility] [address] [id number] [address] [place] [address], [place] [address] May, [facility] [address] [id number] [address] [place] [address], [place] [address] May, [facility] [address] [id number] [address] [place] [address], [place] [address] May, [facility] [address] [id number] [address] [place] [address], [place] [address] May, [facility] [address] [id number] [address] [place] [address], [place] [address] May, [facility] [address] [id number] [address] [place] [address], [place] [address] May, [facility] [address] [id number] [address] [place] [address], [place] [id number] May, [facility] [address] [id number] [address] [place] [address], [place] [address] Apr, [facility] [address] [id number] [facility] [place] [address] Apr, [facility] [address] [id number] [facility] [place] [address] Apr, [facility] [address] [id number] [facility] [place] [address] Apr, [facility] [address] [id number] [address] [place] [address], [place] [address] Apr, [facility] [address] [id number] [address] [place] [address], [place] [address] Apr, [facility] [address] [id number] [address] [place] [address], [place] [address] Apr, [facility] [address] [id number] [address] [place] [address], [place] [address] Apr, [facility] [address] [id number] [address] [place] [address], [place] [address] Apr, [facility] [address] [id number] [address] [place] [address], [place] [address] Apr, [facility] [address] [id number] [address] [place] [address], [place] [address] Apr, [facility] [address] [id number] [address] [place] [address], [place] [address] Apr, [facility] [address] [id number] [address] [place] [address], [place] [address] Apr, [facility] [address] [id number] [address] [place] [address], [place] [address] Apr, [facility] [address] [id number] [address] [place] [address], [place] [address] March, [facility] [address] [id number] [address] [place] [address], [place] [address] March, [facility] [address] [id number] [address] [place] [address], [place] [address] March, [facility] [address] [id number] [address] [place] [address], [place] [address] March, [facility] [address] [id number] [address] [place] [address], [place] [address] March, [facility] [address] [id number] [address] [place] [address], [place] [address] March, [facility] [address] [id number] [address] [place] [address], [place] [address] March, [facility] [address] [id number] [address] [place] [address], [place] [id number] March, [facility] [address] [id number] [address] [place] [address], [place] [address] March, [facility] [address] [id number] [address] [place] [address], [place] [address] March, [facility] [address] [id number] [address] [place] [address], [place] [address] Feb, [facility] [address] [id number] [address] [place] [address], [place] [address] Feb, [facility] [address] [id number] [address] [place] [address], [place] [address] Feb, [facility] [address] [id number] [address] [place] [address], [place] [address] Feb, [facility] [address] [address] [id number] [address] [place] [address], [place] [address] Feb, [facility] [address] [id number] [address] [place] [address], [place] [address] Feb, [facility] [address] [id number] [address] [place] [address], [place] [address] Feb, [facility] [address] [id number] [address] [place] [address], [place] [address] Feb, [facility] [address] [id number] [facility] [place] [address] 18 Jan, 2014 [facility] [address] [id number] [facility] [place] [address] Jan, [facility] [address] [id number] [facility] [place] [address] Jan, [facility] [address] [id number] [facility] [place] [address] Jan, [facility] [address] [id number] [address] [place] [address], [place] [address] Jan, [facility] [address] [id number] [address] [place] [address], [place] [address] Jan, [facility] [address] [id number] [address] [place] [address], [place] [address] Jan, [facility] [address] [id number] [address] [place] [address], [place] [address] Jan, [facility] [address] [id number] [address] [place] [address], [place] [address] Jan, [facility] [address] [id number] [address] [place] [address], [place] [address] Jan, [facility] [address] [id number] [address] [place] [address], [place] [address] Dec, [facility] [address] [id number] [address] [place] [address], [place] [address] Dec, [facility] [address] [id number] [address] [place] [address], [place] [address] Nov, [facility] [address] [id number] [address] [place] [address], [place] [address] Nov, [facility] [address] [id number] [address] [place] [address], [place] [address] Nov, [facility] [address] [id number] [address] [place] [address], [place] [address] Nov, [facility] [address] [id number] [address] [place] [address], [place] [address] Nov, [facility] [address] [id number] [address] [place] [address], [place] [address] Nov, [facility] [address] [id number] [address] [place] [address], [place] [address] Nov, [facility] [address] [id number] [address] [place] [address], [place] [address] Nov, [facility] [address] [id number] [address] [place] [address], [place] [address] Oct, [facility] [address] [id number] [address] [place] [address], [place] [address] Oct, [facility] [address] [id number] [address] [place] [address], [place] [address] Oct, [facility] [address] [id number] [address] [place] [address], [place] [address] Oct, [facility] [address] [id number] [address] [place] [address], [place] [address] Oct, [facility] [address] [id number] [address] [place] [address], [place] [address] Oct, [facility] [address] [id number] [address] [place] [address], [place] [address] Sep, [facility] [address] [id number] [address] [place] [address], [place] [address] Sep, [facility] [address] [id number] [address] [place] [address], [place] [address] Sep, [facility] [address] [id number] [address] [place] [address], [place] [address] Sep, [facility] [address] [id number] [address] [place] [address], [place] [address] 05 Sep, 2013 [facility] [address] [id number] [address] [place] [address], [place] [address] Aug, [facility] [address] [id number] [address] [place] [address], [place] [address] Aug, [facility] [address] [id number] [address] [place] [address], [place] [address] Aug, [facility] [address] [id number] [address] [place] [address], [place] [address] Aug, [facility] [address] [id number] [address] [place] [address], [place] [address] Aug, [facility] [address] [id number] [address] [place] [address], [place] [address] Aug, [facility] [address] [id number] [address] [place] [address], [place] [address] Jul, [facility] [address] [id number] [address] [place] [address], [place] [address] Jul, [facility] [address] [id number] [address] [place] [address], [place] [address] Jul, [facility] [address] [id number] [address] [place] [address], [place] [address] Jun, [facility] [address] [id number] [address] [place] [address], [place] [address] Jun, [facility] [address] [id number] [address] [place] [address], [place] [address] May, [facility] [address] [id number] [address] [place] [address], [place] [address] May, [facility] [address] [id number] [address] [place] [address], [place] [address] Apr, [facility] [address] [id number] [address] [place] [address], [place] [address] Apr, [facility] [address] [id number] [address] [place] [address], [place] [address] Apr, [facility] [address] [id number] [address] [place] [address], [place] [address] March, [facility] [address] [id number] [address] [place] [address], [place] [address] Feb, [facility] [address] [id number] [address] [place] [address], [place] [address] Feb, [facility] [address] [id number] [address] [place] [address], [place] [address] Jan, [facility] [address] [id number] [address] [place] [address], [place] [address] Jan, [facility] [address] [id number] [address] [place] [address], [place] [address] Jan, [facility] [address] [id number] [address] [place] [address], [place] [address] Jan, [facility] [address] [id number] [address] [place] [address], [place] [address] Jan, [facility] [address] [id number] [address] [place] [address], [place] [address] Dec, [facility] [address] [id number] [address] [place] [address], [place] [address] Dec, [facility] [address] [id number] [address] [place] [address], [place] [address] Dec, [facility] [address] [id number] [address] [place] [address], [place] [address] Dec, [facility] [address] [id number] [address] [place] [address], [place] [address] Dec, [facility] [address] [id number] [address] [place] [address], [place] [address] Dec, [facility] [address] [place] [id number] Nov, [facility] [address] [id number] [address] [place] [address] [place] [address] 11 Nov, 2012 [facility] [address] [id number] [address] [place] [address], [place] [address] Nov, [facility] [address] [id number] [address] [place] [address], [place] [address] Nov, [facility] [address] [id number] [address] [place] [address], [place] [address] Nov, [facility] [address] [id number] [address] [place] [address], [place] [address] Oct, [facility] [address] [id number] [address] [place] [address], [place] [address] Oct, [facility] [address] [id number] [address] [place] [address], [place] [address] Oct, [facility] [address] [id number] [address] [place] [address], [place] [address] Oct, [facility] [address] [id number] [address] [place] [address], [place] [address] Oct, [facility] [address] [id number] [address] [place] [address], [place] [address] Oct, [facility] [place] [address] [id number] [address] [place] [address], [place] [address] Oct, [facility] [address] [id number] [address] [place] [address], [place] [address] Oct, [facility] [address] [id number] [address] [place] [address], [place] [address] Sep, [facility] [address] [id number] [address] [place] [address], [place] [address] Sep, [facility] [address] [id number] [address] [place] [address], [place] [address] Sep, [facility] [address] [id number] [address] [place] [address], [place] [address] Sep, [facility] [address] [id number] [address] [place] [address] Sep, [facility] [address] [id number] [address] [place] [address] Sep, [facility] [address] [id number] [address] [place] [address] Sep, [facility] [address] [id number] [address] [place] [address] Sep, [facility] [address] [id number] [address] [place] [id number] Sep, [facility] [address] [id number] [address] [place] [id number] Sep, [facility] [address] [id number] [address] [place] [address] Sep, [facility] [address] [id number] [address] [place] [id number] Sep, [facility] [address] [id number] [address] [place] [id number] Sep, [facility] [address] [id number] [address] [place] [address] Sep, [facility] [address] [id number] [address] [place] [id number] Sep, [facility] [address] [id number] [address] [place] [address] Sep, IMMUNIZATIONS No Known Immunizations SOCIAL HISTORY Never Assessed REASON FOR VISIT Controlled Med Refill PLAN OF CARE VITAL SIGNS MEDICATIONS Medication Instructions Dosage Frequency Start Date End Date Duration S tatus Diazepam 10 MG Orally 3 times a day 1 tablet 8h 28 days Active RESULTS No Results PROCEDURES No Known procedures INSTRUCTIONS MEDICATIONS ADMINISTERED No Known Medications MEDICAL (GENERAL) HISTORY Type Description Date Medical History hypertension Medical History type I diabetes Medical History chronic renal insufficiency Surgical History gastric pacemaker 2008 Hospitalization History nausea 2011
--- OUTSIDE RECORDS SUMMARY | 2020-04-17 21:47 | XMS REPORT ---
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 Active 21217553 Problem Type 1 diabetes mellitus with hyperglycemia E10.65 Active [id number] Problem Gastroparesis K31.84 Active 732965 006 Problem Hypertension, essential I10 Active 20241160 Problem 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 Active 24438428 Problem Type 1 diabetes mellitus with other diab etic neurological complication E10.49 Active 49376655 ALLERGIES Unknown Allergies SOCIAL HISTORY No smoking Hx information available PLAN OF CARE VITAL SIGNS MEDICATIONS Medication Instructions Dosage Frequency Start Date End Date Duration S tatus NovoLog 100 UNIT/ML up to 45 units daily Active RESULTS No Results PROCEDURES No Known procedures IMMUNIZATIONS No Known Immunizations
--- OUTSIDE RECORDS SUMMARY | 2020-04-17 21:47 | XMS REPORT ---
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 Drip Molder Name Role Phone BISMARK PATIÑO CP Unavailable [...] Start Date End Date Status Dosage NovoLog [facility] [address]-30 100 UNIT/ML per insulin pump up to 45 units daily Results No Known Results Summary Purpose [employer] Submission
--- OUTSIDE RECORDS SUMMARY | 2020-04-17 21:47 | XMS REPORT ---
Author Author Curt PATIÑO Organization [facility] [place] Address [address] [place] [address] Care Team Providers Care Mixer [employer] Name Role Phone BISMARK PATIÑO Unavailable PROBLEMS Type Condition ICD9-CM Code [id number] Code Onset Dates Condition S tatus SNOMED Code Problem Mood disorder F39 Active 478106 05 Problem Type 1 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 Active 48007497 Problem Type 1 diabetes mellitus with hyperglycemia E10.65 Active 223758657956005 Problem Gastroparesis K31.84 Active 429234 006 Problem Hypertension, essential I10 Active 08850512 Problem 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 Active 41804418 Problem Type 1 diabetes mellitus with other diab etic neurological complication E10.49 Active 77597222 ALLERGIES Substance Reaction Event Type Date Status Cipro Unknown Drug Allergy Apr, Active Sulfa(sulfonamide Antibiotics) Unknown Non Drug Allergy Apr Active ENCOUNTERS Encounter Location Date Diagnosis [place] [address] [place] [id number] [place] [address] Jan, Type 1 diabetes mellitus wit h hyperglycemia E10.65 [place] [address] [place] [id number] [address] [place] [id number] Jan, [place] [address] [place] [id number] [place] [id number] Dec, Tobacco abuse Z72.0 [place] [address] [place] [id number] [place] [phone] Dec, Type 1 diabetes mellitus wit h hyperglycemia E10.65 [place] [address] [place] [id number] [place] [phone] 16 Dec, 2017 Type 1 diabetes mellitus wit h hyperglycemia E10.65 ; Tobacco abuse Z72.0 and Tobacco abuse counseling Z71.6 [place] [address] [id number] [address] [place] [id number] Nov, Type 1 diabetes mellitus wit h hyperglycemia E10.65 [facility] [place] [address] [facility] [id number] [address] [place] [id number] Oct, Type 1 diabetes mellitus wit h hyperglycemia E10.65 [facility] [place] [address] [facility] [id number] [address] [place] [id number] Oct, Type 1 diabetes mellitus wit h hyperglycemia E10.65 [facility] [place] [address] [id number] [address] [place] [id number] Sep, Type 1 diabetes mellitus wit h hyperglycemia E10.65 [facility] [place] [address] [facility] [id number] [address] [place] [id number] Aug, Type 1 diabetes mellitus wit h hyperglycemia E10.65 [facility] [place] [address] [facility] [id number] [address] [place] [phone] Aug, [facility] [place] [address] [facility] [id number] [address] [place] [id number] Aug, Type 1 diabetes mellitus wit h hyperglycemia E10.65 [facility] [place] [address] [facility] [id number] [address] [place] [id number] Aug, Encounter for immunization Z 23 [facility] [place] [address] [facility] [id number] [address] [place] [id number] Aug, Type 1 diabetes mellitus wit h hyperglycemia E10.65 [facility] [place] [address] [facility] [id number] [address] [place] [id number] Jul, Type 1 diabetes mellitus wit h hyperglycemia E10.65 [facility] [place] [address] [facility] [id number] [address] [place] [id number] Jul, Type 1 diabetes mellitus wit h hyperglycemia E10.65 [facility] [place] [address] [facility] [id number] [address] [place] [id number] May, Type 1 diabetes mellitus wit h hyperglycemia E10.65 [facility] [place] [address] [facility] [id number] [address] [place] [id number] May, [facility] [place] [address] [id number] [address] [place] [phone] Apr, [facility] [place] [address] [facility] [id number] [address] [place] [id number] Apr, Type 1 diabetes mellitus wit hyperglycemia E10.65 [facility] [place] [address] [facility] [id number] [address] [place] [id number] March, [facility] [place] [address] [id number] [address] [place] [id number] March, [facility] [place] [address] [facility] [id number] [address] [place] [phone] Jan, [facility] [place] [address] [facility] [id number] [address] [place] [id number] Jan, [facility] [place] [address] [facility] [id number] [address] [place] [phone] Jan, Type 1 diabetes mellitus wit diabetic polyneuropathy E10.42 [facility] [place] [address] [facility] [id number] [address] [place] [id number] Jan, Type 1 diabetes mellitus wit hyperglycemia E10.65 ; Excessive cerumen in both ear canals H61.23 and Controlled diabetes mellitus type 1 without complications E10.9 [facility] [place] [address] [facility] [id number] [address] [place] [id number] Dec, [facility] [place] [address] [facility] [id number] [address] [place] [id number] Dec, [facility] [place] [address] [facility] [id number] [address] [place] [phone] Dec, [facility] [place] [address] [facility] [id number] [address] [place] [id number] Dec, [facility] [place] [address] [facility] [id number] [address] [place] [phone] Nov, [facility] [place] [address] [id number] [address] [place] [phone] Nov, [facility] [place] [address] [facility] [id number] [address] [place] [id number] Oct, Type 1 diabetes mellitus wit h hyperglycemia E10.65 [facility] [place] [address] [id number] [address] [place] [phone] Sep, [facility] [place] [address] [id number] [address] [place] [phone] Sep, [facility] [place] [address] [facility] [id number] [address] [place] [id number] Sep, Controlled diabetes mellitus type 1 without complications E10.9 [facility] [place] [address] [facility] [id number] [address] [place] [id number] Sep, [facility] [address] [id number] [address] [place] [address] [id number] Aug, Dental caries K02.9 [facility] [place] [address] [facility] [id number] [address] [place] [phone] Aug, Type 1 diabetes mellitus wit h diabetic polyneuropathy E10.42 [facility] [place] [address] [facility] [id number] [address] [place] [id number] Aug, [facility] [place] [address] [facility] [id number] [address] [place] [id number] Aug, [facility] [place] [address] [facility] [id number] [address] [place] [phone] Aug, [facility] [place] [address] [facility] [id number] [address] [place] [id number] Jul, Type 1 diabetes mellitus wit h hyperglycemia E10.65 [facility] [place] [address] [facility] [id number] [address] [place] [id number] Jul, Type 1 diabetes mellitus wit h hyperglycemia E10.65 ; Tooth pain K08.8 and Encounter for immunization Z23 [facility] [address] [id number] [address] [place] [address] [id number] 08 Jul, 2016 Dental examination Z01.20 [facility] [place] [address] [id number] [address] [place] [id number] 08 Jul, 2016 [facility] [address] [id number] [address] [place] [id number] 07 Jul, 2016 [facility] [place] [address] [id number] [address] [place] [id number] Jul, [facility] [place] [address] [id number] [address] [place] [id number] Jun, [facility] [place] [address] [id number] [address] [place] [phone] May, [facility] [place] [address] [id number] [address] [place] [phone] Apr, [facility] [place] [address] [id number] [address] [place] [phone] Apr, [facility] [place] [address] [id number] [address] [place] [id number] Apr, [facility] [place] [address] [id number] [address] [place] [phone] March, [facility] [place] [address] [id number] [address] [place] [id number] March, [facility] [place] [address] [id number] [address] [place] [phone] Feb, [facility] [place] [address] [id number] [address] [place] [id number] Feb, [facility] [place] [address] [id number] [address] [place] [id number] Feb, Type 1 diabetes mellitus wit h hyperglycemia E10.65 [facility] [place] [address] [id number] [address] [place] [phone] Jan, [facility] [place] [address] [id number] [address] [place] [phone] Jan, [facility] [place] [address] [facility] [id number] [address] [place] [id number] Jan, [facility] [place] [address] [facility] [id number] [address] [place] [phone] Jan, [facility] [place] [address] [facility] [id number] [address] [place] [phone] Dec, [facility] [place] [address] [facility] [id number] [address] [place] [phone] Nov, [facility] [place] [address] [facility] [id number] [address] [place] [phone] Nov, [facility] [place] [address] [facility] [id number] [address] [place] [id number] Oct, [facility] [place] [address] [facility] [id number] [address] [place] [phone] 04 Oct, 2015 Type 1 diabetes mellitus wit h 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 ; Type 1 diabetes mellitus with hyperglycemia E10.65 ; Gastroparesis K31.84 and Esophageal stricture K22.2 [facility] [place] [address] [facility] [id number] [address] [place] [phone] Oct, [facility] [place] [address] [facility] [id number] [address] [place] [phone] Sep, [facility] [place] [address] [facility] [id number] [address] [place] [id number] Sep, Type 1 diabetes mellitus wit h other diabetic neurological complication E10.49 [facility] [place] [address] [facility] [id number] [address] [place] [id number] Aug, Encounter for immunization Z 23 [facility] [place] [address] [facility] [id number] [address] [place] [id number] 19 Aug, 2015 [facility] [place] [address] [facility] [id number] [address] [place] [id number] 13 Aug, 2015 [facility] [place] [address] [id number] [address] [place] [phone] Jul, [facility] [address] [id number] [address] [place] [phone] Jul, [facility] [address] [id number] [address] [place] [phone] Jun, [facility] [address] [id number] [address] [place] [phone] Jun, [facility] [address] [id number] [address] [place] [phone] Jun, [facility] [address] [id number] [address] [place] [id number] May, [facility] [address] [id number] [address] [place] [phone] May, [facility] [address] [id number] [address] [place] [phone] May, Diabetes type 1, controlled 250.01 [facility] [address] [id number] [address] [place] [phone] May, [facility] [address] [id number] [address] [place] [phone] May, [facility] [address] [id number] [address] [place] [id number] Apr, Dental examination V72.2 [facility] [address] [id number] [address] [place] [phone] Apr, [facility] [address] [id number] [address] [place] [phone] Apr, [facility] [address] [id number] [address] [place] [phone] Apr, [facility] [address] [id number] [address] [place] [id number] Apr, [facility] [address] [id number] [address] [place] [phone] Apr, [facility] [address] [id number] [address] [place] [id number] Apr, Dental examination V72.2 [facility] [place] [address] [id number] [address] [place] [id number] Apr, [facility] [place] [address] [id number] [address] [place] [id number] Apr, [facility] [place] [address] [id number] [address] [place] [phone] March, Diabetes mellitus type 1 250 .01 [facility] [place] [address] [id number] [address] [place] [phone] March, [facility] [place] [address] [id number] [address] [place] [phone] Feb, [facility] [place] [address] [id number] [address] [place] [phone] Feb, [facility] [place] [address] [id number] [address] [place] [phone] Jan, [facility] [place] [address] [id number] [address] [place] [id number] Jan, [facility] [place] [address] [id number] [address] [place] [id number] Jan, [facility] [place] [address] [id number] [address] [place] [phone] Jan, [facility] [place] [address] [id number] [address] [place] [phone] Dec, [facility] [address] [id number] [address] [place] [phone] Dec, [facility] [address] [id number] [address] [place] [id number] Nov, [facility] [place] [address] [id number] [address] [place] [phone] Nov, [facility] [address] [id number] [address] [place] [address], [place] [phone] Nov, [facility] [address] [id number] [address] [place] [address], [place] [phone] Nov, [facility] [address] [id number] [address] [place] [address], [place] [phone] Nov, [facility] [address] [id number] [address] [place] [address], [place] [id number] Nov, [facility] [address] [id number] [address] [place] [address], [place] [phone] Nov, [facility] [address] [id number] [address] [place] [address], [place] [id number] Oct, [facility] [address] [id number] [address] [place] [address], [place] [id number] Oct, [facility] [address] [id number] [address] [place] [address], [place] [id number] Sep, [facility] [address] [id number] [address] [place] [address], [place] [id number] Aug, [facility] [address] [id number] [address] [place] [phone] Aug, [facility] [address] [id number] [address] [place] [address], [place] [id number] Aug, [facility] [address] [id number] [address] [place] [id number] Aug, [facility] [address] [id number] [address] [place] [address], [place] [phone] Aug, [facility] [address] [id number] [address] [place] [address], [place] [id number] Aug, [facility] [address] [id number] [address] [place] [phone] Aug, [facility] [address] [id number] [address] [place] [id number] Aug, [facility] [address] [id number] [address] [place] [address], [place] [address] Aug, [facility] [address] [id number] [address] [place] [address], [place] [address] Aug, [facility] [address] [id number] [address] [place] [address], [place] [address] Aug, [facility] [address] [id number] [address] [place] [address], [place] [address] Aug, [facility] [address] [id number] [address] [place] [address], [place] [address] Aug, [facility] [address] [id number] [address] [place] [address], [place] [address] Aug, [facility] [address] [id number] [address] [place] [address], [place] [address] Jul, [facility] [address] [id number] [address] [place] [address], [place] [address] Jul, [facility] [address] [id number] [address] [place] [address], [place] [address] Jul, [facility] [address] [id number] [address] [place] [address], [place] [address] Jul, [facility] [address] [id number] [address] [place] [address], [place] [address] Jun, [facility] [address] [id number] [address] [place] [address], [place] [address] Jun, [facility] [address] [id number] [address] [place] [address], [place] [address] Jun, [facility] [address] [id number] [address] [place] [address], [place] [address] Jun, [facility] [address] [id number] [address] [place] [address], [place] [address] May, [facility] [address] [id number] [address] [place] [address] May, [facility] [address] [id number] [address] [place] [address] May, [facility] [address] [id number] [address] [place] [address] May, [facility] [address] [id number] [address] [place] [address] May, [facility] [address] [id number] [address] [place] [address] May, [facility] [address] [id number] [address] [place] [address], [place] [address] May, [facility] [address] [id number] [address] [place] [address], [place] [address] May, [facility] [address] [id number] [address] [place] [address], [place] [address] May, [facility] [address] [id number] [address] [place] [address], [place] [address] May, [facility] [address] [id number] [address] [place] [address], [place] [address] May, [facility] [address] [id number] [address] [place] [address], [place] [address] May, [facility] [address] [id number] [address] [place] [address], [place] [address] May, [facility] [address] [id number] [address] [place] [address], [place] [address] Apr, [facility] [address] [id number] [address] [place] [address], [place] [address] Apr, [facility] [address] [id number] [address] [place] [address], [place] [address] Apr, [facility] [address] [id number] [address] [place] [address], [place] [address] Apr, [facility] [address] [id number] [facility] [place] [address] Apr, [facility] [address] [id number] [facility] [place] [address] Apr, [facility] [address] [id number] [address] [place] [address], [place] [address] Apr, [facility] [address] [id number] [address] [place] [address], [place] [address] Apr, [facility] [address] [id number] [address] [place] [address], [place] [address] Apr, [facility] [address] [id number] [address] [place] [address], [place] [address] Apr, [facility] [address] [id number] [address] [place] [address], [place] [address] Apr, [facility] [address] [id number] [address] [place] [address], [place] [address] Apr, [facility] [address] [id number] [address] [place] [address], [place] [address] Apr, [facility] [address] [id number] [address] [place] [address], [place] [address] Apr, [facility] [address] [id number] [address] [place] [address], [place] [address] March, [facility] [address] [id number] [address] [place] [address], [place] [address] March, [facility] [address] [id number] [address] [place] [address], [place] [address] March, [facility] [address] [id number] [address] [place] [address], [place] [address] March, [facility] [address] [id number] [address] [place] [address], [place] [address] March, [facility] [address] [id number] [address] [place] [address], [place] [address] March, [facility] [address] [id number] [address] [place] [address], [place] [address] March, [facility] [address] [id number] [address] [place] [address], [place] [address] March, [facility] [address] [id number] [address] [place] [address], [place] [address] March, [facility] [address] [id number] [address] [place] [address], [place] [address] March, [facility] [address] [id number] [address] [place] [address], [place] [address] Feb, [facility] [address] [id number] [address] [place] [address], [place] [address] Feb, [facility] [address] [id number] [address] [place] [address], [place] [address] Feb, [facility] [address] [id number] [address] [place] [address], [place] [address] Feb, [facility] [address] [id number] [address] [place] [address], [place] [address] Feb, [facility] [address] [id number] [address] [place] [address], [place] [address] Feb, [facility] [address] [id number] [address] [place] [address], [place] [address] Feb, [facility] [address] [id number] [address] [place] [address], [place] [address] Feb, [facility] [address] [id number] [address] [place] [address], [place] [address] Jan, [facility] [address] [id number] [address] [place] [address], [place] [address] Jan, [facility] [address] [id number] [address] [place] [address], [place] [address] Jan, [facility] [address] [id number] [address] [place] [address], [place] [address] 18 Jan, 2014 [facility] [address] [id number] [address] [place] [address], [place] [address] Jan, [facility] [address] [id number] [address] [place] [address], [place] [address] Jan, [facility] [address] [id number] [address] [place] [address], [place] [address] Jan, [facility] [address] [id number] [address] [place] [address], [place] [address] Jan, [facility] [address] [id number] [address] [place] [address], [place] [address] Jan, [facility] [address] [id number] [address] [place] [address], [place] [address] Jan, [facility] [address] [id number] [address] [place] [address], [place] [address] Dec, [facility] [address] [id number] [address] [place] [address], [place] [address] Dec, [facility] [address] [id number] [address] [place] [address], [place] [address] Nov, [facility] [address] [id number] [address] [place] [address], [place] [address] Nov, [facility] [address] [id number] [address] [place] [address], [place] [address] Nov, [facility] [address] [id number] [address] [place] [address], [place] [address] Nov, [facility] [address] [id number] [address] [place] [address], [place] [address] Nov, [facility] [address] [id number] [address] [place] [address], [place] [address] Nov, [facility] [address] [id number] [address] [place] [address] Nov, [facility] [address] [id number] [address] [place] [address], [place] [address] Nov, [facility] [address] [id number] [address] [place] [address] Oct, [facility] [address] [id number] [address] [place] [address], [place] [address] Oct, [facility] [address] [id number] [address] [place] [id number] Oct, [facility] [address] [id number] [address] [place] [address], [place] [address] Oct, [facility] [address] [id number] [address] [place] [address], [place] [address] Oct, [facility] [address] [id number] [address] [place] [address], [place] [address] Oct, [facility] [address] [id number] [address] [place] [address], [place] [address] Sep, [facility] [address] [id number] [address] [place] [address] Sep, [facility] [address] [id number] [address] [place] [address] Sep, [facility] [address] [id number] [address] [place] [address] Sep, [facility] [address] [id number] [address] [place] [address] Sep, [facility] [address] [id number] [address] [place] [address] Aug, [facility] [address] [id number] [address] [place] [address], [place] [address] Aug, [facility] [address] [id number] [address] [place] [address], [place] [address] Aug, [facility] [address] [id number] [address] [place] [address], [place] [address] Aug, [facility] [address] [id number] [address] [place] [address], [place] [address] Aug, [facility] [address] [id number] [address] [place] [address], [place] [address] Aug, [facility] [address] [id number] [address] [place] [address], [place] [address] Jul, [facility] [address] [id number] [address] [place] [address], [place] [address] Jul, [facility] [address] [id number] [address] [place] [address], [place] [address] Jul, [facility] [address] [id number] [address] [place] [address], [place] [address] Jun, [facility] [address] [id number] [address] [place] [address], [place] [address] Jun, [facility] [address] [id number] [address] [place] [address], [place] [address] May, [facility] [address] [id number] [address] [place] [address], [place] [address] May, [facility] [address] [id number] [address] [place] [address], [place] [address] Apr, [facility] [address] [id number] [address] [place] [address], [place] [address] Apr, [facility] [address] [id number] [address] [place] [address], [place] [address] Apr, [facility] [address] [id number] [address] [place] [address], [place] [address] March, [facility] [address] [id number] [address] [place] [address], [place] [address] Feb, [facility] [address] [id number] [address] [place] [address], [place] [address] Feb, [facility] [address] [id number] [facility] [place] [address] Jan, [facility] [address] [id number] [address] [place] [address], [place] [address] 20 Jan, 2013 [facility] [address] [id number] [address] [place] [address], [place] [address] Jan, [facility] [address] [id number] [address] [place] [address], [place] [address] 08 Jan, 2013 [facility] [address] [id number] [address] [place] [address], [place] [address] Jan, [facility] [address] [id number] [address] [place] [address], [place] [address] Dec, [facility] [address] [id number] [address] [place] [address], [place] [address] Dec, [facility] [address] [id number] [address] [place] [address], [place] [address] Dec, [facility] [address] [id number] [address] [place] [address], [place] [address] Dec, [facility] [address] [id number] [address] [place] [address], [place] [address] Dec, [facility] [address] [id number] [address] [place] [address], [place] [address] 05 Dec, 2012 [facility] [address] [place] [id number] 14 Nov, 2012 [facility] [address] [id number] [address] [place] [address], [place] [address] Nov, [facility] [address] [id number] [address] [place] [address], [place] [address] 10 Nov, 2012 [facility] [address] [id number] [address] [place] [address], [place] [address] Nov, [facility] [address] [id number] [address] [place] [address], [place] [address] 03 Nov, 2012 [facility] [address] [id number] [address] [place] [address], [place] [address] Oct, [facility] [address] [id number] [address] [place] [address], [place] [address] Oct, [facility] [address] [id number] [address] [place] [address], [place] [address] Oct, [facility] [address] [id number] [address] [place] [address], [place] [address] Oct, [facility] [address] [id number] [address] [place] [address], [place] [address] Oct, [facility] [address] [id number] [address] [place] [address], [place] [address] Oct, [facility] [address] [id number] [address] [place] [address], [place] [address] Oct, [facility] [address] [id number] [address] [place] [address], [place] [address] Oct, [facility] [address] [id number] [address] [place] [address], [place] [address] Sep, [facility] [address] [id number] [address] [place] [address], [place] [address] Sep, [facility] [address] [id number] [address] [place] [address], [place] [address] Sep, [facility] [address] [id number] [address] [place] [address], [place] [address] Sep, [facility] [address] [id number] [address] [place] [address], [place] [address] 14 Sep, 2012 [facility] [address] [id number] [address] [place] [address], [place] [address] 14 Sep, 2012 [facility] [address] [id number] [address] [place] [address], [place] [address] 12 Sep, 2012 [facility] [place] [address] [id number] [address] [place] [address] Sep, [facility] [place] [address] [id number] [address] [place] [id number] Sep, [facility] [place] [address] [id number] [address] [place] [id number] Sep, [facility] [place] [address] [id number] [address] [place] [address] Sep, [facility] [place] [address] [id number] [address] [place] [address] Sep, [facility] [place] [address] [id number] [address] [place] [phone] Sep, [facility] [place] [address] [facility] [id number] [address] [place] [phone] Sep, [facility] [place] [address] [id number] [address] [place] [address] Sep, [facility] [place] [address] [facility] [id number] [address] [place] [id number] Sep, IMMUNIZATIONS No Known Immunizations SOCIAL HISTORY Never Assessed REASON FOR VISIT Diabetes, no concerns- Jeffy REESE PLAN OF CARE VITAL SIGNS Height 68 in 2017-05-12 Weight 157.8 lbs 2017-05-12 Temperature 97.7 degrees Fahrenheit 2017-05-12 Heart Rate 72 bpm 2017-05-12 Respiratory Rate 18 2017-05-12 BMI 23.99 kg/m2 2017-05-12 Blood pressure systolic 120 mmHg 2017-05-12 Blood pressure diastolic 84 mmHg 2017-05-12 MEDICATIONS Medication Instructions Dosage Frequency Start Date End Date Duration S tatus Enalapril Maleate 10 mg 1 tablet 24h Active Genaro Contour Test N/A test blood sugar 6h Jul, Active Glucagon Emergency 1 MG as directed May, 1 dose Active NovoLog 100 UNIT/ML per insulin pump Once a day 45 u 24h Active Diazepam 10 MG Orally 3 times a day 1 tablet 8h 28 days Active RESULTS Name Result Date Reference Range A1C (IN HOUSE) 2017-05-12 A1C IN HOUSE 8.2 4.3 - 5.6 % Previous A1c 7.0 [facility] 0716 Exp date 01/2019 PROCEDURES Procedure Date Ordered Result Body Site GLYCATED HEMOGLOBIN TEST May 12, 2017 [facility] VISIT ESTABLISHED PATIENT May 12, 2017 INSTRUCTIONS MEDICATIONS ADMINISTERED No Known Medications MEDICAL (GENERAL) HISTORY Type Description Date Medical History hypertension Medical History type I diabetes Medical History chronic renal insufficiency Surgical History gastric pacemaker 2008 Hospitalization History nausea 2011
--- OUTSIDE RECORDS SUMMARY | 2020-04-17 21:47 | XMS REPORT ---
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 Molten [employer] Pourer Name Role Phone BISMARK PATIÑO CP Unavailable [...]
--- OUTSIDE RECORDS SUMMARY | 2020-04-17 21:47 | XMS REPORT ---
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 Active 69782370 Problem Type 1 diabetes mellitus with hyperglycemia E10.65 Active 969541860250584 Problem Gastroparesis K31.84 Active 510043 006 Problem Hypertension, essential I10 Active 10737608 Problem 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 Active 61168947 Problem Type 1 diabetes mellitus with other diab etic neurological complication E10.49 Active [id number] ALLERGIES No Information ENCOUNTERS Encounter Location Date Diagnosis [place] [address] [address] Jan, Type 1 diabetes mellitus wit h hyperglycemia E10.65 [place] [address] [address] Jan, [place] [address] [address] Dec, Tobacco abuse Z72.0 [place] [address] [address] Dec, Type 1 diabetes mellitus wit h hyperglycemia E10.65 [place] [address] [address] 16 Dec, 2017 Type 1 diabetes mellitus wit h hyperglycemia E10.65 ; Tobacco abuse Z72.0 and Tobacco abuse counseling Z71.6 [place] [address] [address] Nov, Type 1 diabetes mellitus wit h hyperglycemia E10.65 [facility] [address] [id number] [address] [place] [address] Oct, Type 1 diabetes mellitus wit h hyperglycemia E10.65 [facility] [address] [id number] [address] [place] [address] Oct, Type 1 diabetes mellitus wit h hyperglycemia E10.65 [facility] [address] [facility] [id number] [address] [place] [address] Sep, Type 1 diabetes mellitus wit h hyperglycemia E10.65 [facility] [address] [id number] [address] [place] [address] Aug, Type 1 diabetes mellitus wit h hyperglycemia E10.65 [facility] [address] [facility] [id number] [address] [place] [address] Aug, [facility] [address] [facility] [id number] [address] [place] [address] Aug, Type 1 diabetes mellitus wit h hyperglycemia E10.65 [facility] [address] [facility] [id number] [address] [place] [address] Aug, Encounter for immunization Z 23 [facility] [address] [facility] [id number] [address] [place] [address] Aug, Type 1 diabetes mellitus wit h hyperglycemia E10.65 [facility] [address] [facility] [id number] [address] [place] [address] Jul, Type 1 diabetes mellitus wit h hyperglycemia E10.65 [facility] [address] [id number] [address] [place] [address] Jul, Type 1 diabetes mellitus wit h hyperglycemia E10.65 [facility] [address] [facility] [id number] [address] [place] [address] May, Type 1 diabetes mellitus wit h hyperglycemia E10.65 [facility] [address] [facility] [id number] [address] [place] [address] May, [facility] [address] [facility] [id number] [address] [place] [address] Apr, [facility] [address] [id number] [address] [place] [address] Apr, Type 1 diabetes mellitus wit h hyperglycemia E10.65 [facility] [address] [facility] [id number] [address] [place] [address] March, [facility] [address] [facility] [id number] [address] [place] [address] March, [facility] [address] [id number] [address] [place] [address] Jan, [facility] [address] [facility] [id number] [address] [place] [address] Jan, [facility] [address] [facility] [id number] [address] [place] [address] Jan, Type 1 diabetes mellitus wit h diabetic polyneuropathy E10.42 [facility] [address] [id number] [address] [place] [address] Jan, Type 1 diabetes mellitus wit h hyperglycemia E10.65 ; Excessive cerumen in both ear canals H61.23 and Controlled diabetes mellitus type 1 without complications E10.9 [facility] [address] [facility] [id number] [address] [place] [address] Dec, [facility] [address] [facility] [id number] [address] [place] [address] Dec, [facility] [address] [facility] [id number] [address] [place] [address] Dec, [facility] [address] [facility] [id number] [address] [place] [address] Dec, [facility] [address] [facility] [id number] [address] [place] [address] Nov, [facility] [address] [facility] [id number] [address] [place] [address] Nov, [facility] [address] [id number] [address] [place] [address] Oct, Type 1 diabetes mellitus wit h hyperglycemia E10.65 [facility] [address] [id number] [address] [place] [address] Sep, [facility] [address] [facility] [id number] [address] [place] [address] Sep, [facility] [address] [id number] [address] [place] [address] Sep, Controlled diabetes mellitus type 1 without complications E10.9 [facility] [address] [id number] [address] [place] [address] Sep, [facility] [address] [id number] [address] [place] [id number] Aug, Dental caries K02.9 [facility] [address] [id number] [address] [place] [address] Aug, Type 1 diabetes mellitus wit h diabetic polyneuropathy E10.42 [facility] [address] [id number] [address] [place] [address] Aug, [facility] [address] [facility] [id number] [address] [place] [address] Aug, [facility] [address] [id number] [address] [place] [address] Aug, [facility] [address] [id number] [address] [place] [address] Jul, Type 1 diabetes mellitus wit h hyperglycemia E10.65 [facility] [address] [id number] [address] [place] [address] Jul, Type 1 diabetes mellitus wit h hyperglycemia E10.65 ; Tooth pain K08.8 and Encounter for immunization Z23 [facility] [address] [id number] [address] [place] [address] [id number] Jul, 2016 Dental examination Z01.20 [facility] [address] [id number] [address] [place] [address], [place] [address] 08 Jul, 2016 [facility] [address] [id number] [address] [place] [address], [place] [address] 07 Jul, 2016 [facility] [address] [id number] [address] [place] [address], [place] [address] Jul, [facility] [address] [id number] [address] [place] [address], [place] [address] Jun, [facility] [address] [id number] [address] [place] [address], [place] [address] May, [facility] [address] [id number] [address] [place] [address], [place] [address] Apr, [facility] [address] [id number] [address] [place] [address], [place] [address] Apr, [facility] [address] [id number] [address] [place] [address], [place] [address] Apr, [facility] [address] [id number] [address] [place] [address], [place] [address] March, [facility] [address] [id number] [address] [place] [address], [place] [address] March, [facility] [address] [id number] [address] [place] [address], [place] [address] Feb, [facility] [address] [id number] [address] [place] [address], [place] [address] Feb, [facility] [address] [id number] [address] [place] [address], [place] [address] Feb, Type 1 diabetes mellitus wit h hyperglycemia E10.65 [facility] [address] [id number] [address] [place] [address], [place] [address] Jan, [facility] [address] [id number] [address] [place] [address] Jan, [facility] [address] [id number] [address] [place] [id number] 08 Jan, 2016 [facility] [address] [facility] [id number] [address] [place] [address] Jan, [facility] [address] [facility] [id number] [address] [place] [address] Dec, [facility] [address] [facility] [id number] [address] [place] [address] Nov, [facility] [address] [facility] [id number] [address] [place] [address] Nov, [facility] [address] [facility] [id number] [address] [place] [address] Oct, [facility] [address] [place] [id number] [place] [address] 04 Oct, 2015 Type 1 diabetes mellitus wit h 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 ; Type 1 diabetes mellitus with hyperglycemia E10.65 ; Gastroparesis K31.84 and Esophageal stricture K22.2 [facility] [address] [facility] [id number] [address] [place] [address] Oct, [facility] [address] [facility] [id number] [place] [address] Sep, [facility] [address] [facility] [id number] [place] [address] Sep, Type 1 diabetes mellitus wit h other diabetic neurological complication E10.49 [facility] [address] [facility] [id number] [address] [place] [address] Aug, Encounter for immunization Z 23 [facility] [address] [facility] [id number] [address] [place] [address] Aug, [facility] [address] [place] [id number] [address] [place] [address] Aug, [facility] [address] [facility] [id number] [address] [place] [address] Jul, [facility] [address] [id number] [address] [place] [address] Jul, [facility] [address] [id number] [address] [place] [address] Jun, [facility] [address] [id number] [address] [place] [address] Jun, [facility] [address] [id number] [address] [place] [address] Jun, [facility] [address] [id number] [address] [place] [phone] May, [facility] [address] [id number] [address] [place] [address] May, [facility] [address] [id number] [address] [place] [address] May, Diabetes type 1, controlled 250.01 [facility] [address] [id number] [address] [place] [address] May, [facility] [address] [id number] [address] [place] [address] May, [facility] [address] [id number] [address] [place] [id number] Apr, Dental examination V72.2 [facility] [address] [id number] [address] [place] [address] Apr, [facility] [address] [id number] [address] [place] [address] Apr, [facility] [address] [id number] [address] [place] [phone] Apr, [facility] [address] [id number] [address] [place] [phone] Apr, [facility] [address] [id number] [address] [place] [address] Apr, [facility] [address] [id number] [address] [place] [id number] Apr, Dental examination V72.2 [facility] [address] [id number] [address] [place] [phone] Apr, [facility] [address] [id number] [address] [place] [phone] Apr, [facility] [address] [id number] [address] [place] [address] March, Diabetes mellitus type 1 250 .01 [facility] [address] [id number] [address] [place] [phone] March, [facility] [address] [id number] [address] [place] [address] Feb, [facility] [address] [id number] [address] [place] [id number] Feb, [facility] [address] [id number] [address] [place] [phone] Jan, [facility] [address] [id number] [address] [place] [phone] Jan, [facility] [address] [id number] [address] [place] [address] Jan, [facility] [address] [id number] [address] [place] [phone] Jan, [facility] [address] [id number] [address] [place] [id number] Dec, [facility] [address] [id number] [address] [place] [address] Dec, [facility] [address] [id number] [address] [place] [phone] Nov, [facility] [address] [id number] [address] [place] [phone] Nov, [facility] [address] [id number] [address] [place] [phone] Nov, [facility] [address] [id number] [address] [place] [address], [place] [address] Nov, [facility] [address] [id number] [address] [place] [address], [place] [address] Nov, [facility] [address] [id number] [address] [place] [address], [place] [address] Nov, [facility] [address] [id number] [address] [place] [address], [place] [address] Nov, [facility] [address] [id number] [address] [place] [address], [place] [address] Oct, [facility] [address] [id number] [address] [place] [address], [place] [address] Oct, [facility] [address] [id number] [address] [place] [address], [place] [address] Sep, [facility] [address] [id number] [address] [place] [address], [place] [address] Aug, [facility] [address] [id number] [address] [place] [address], [place] [address] Aug, [facility] [address] [id number] [address] [place] [address], [place] [address] Aug, [facility] [address] [id number] [address] [place] [address], [place] [address] Aug, [facility] [address] [id number] [address] [place] [phone] Aug, [facility] [address] [id number] [address] [place] [address], [place] [address] Aug, [facility] [address] [id number] [address] [place] [address], [place] [address] Aug, [facility] [address] [id number] [address] [place] [address], [place] [address] Aug, [facility] [address] [id number] [address] [place] [address], [place] [address] Aug, [facility] [address] [id number] [address] [place] [address], [place] [address] Aug, [facility] [address] [id number] [address] [place] [address], [place] [address] Aug, [facility] [address] [id number] [address] [place] [address], [place] [address] Aug, [facility] [address] [id number] [address] [place] [address], [place] [address] Aug, [facility] [address] [id number] [address] [place] [address], [place] [address] Aug, [facility] [address] [id number] [address] [place] [address], [place] [address] Jul, [facility] [address] [id number] [address] [place] [address], [place] [address] Jul, [facility] [address] [id number] [address] [place] [address], [place] [address] Jul, [facility] [address] [id number] [address] [place] [address], [place] [address] Jul, [facility] [address] [id number] [address] [place] [address], [place] [address] Jun, [facility] [address] [id number] [address] [place] [address], [place] [address] Jun, [facility] [address] [id number] [address] [place] [address], [place] [address] Jun, [facility] [address] [id number] [address] [place] [address], [place] [address] Jun, [facility] [address] [id number] [address] [place] [address], [place] [address] May, [facility] [address] [id number] [address] [place] [address], [place] [address] May, [facility] [address] [id number] [facility] [place] [address] May, 2013 [facility] [address] [id number] [facility] [place] [address] May, 2013 [facility] [address] [id number] [facility] [place] [address] May, 2013 [facility] [address] [id number] [facility] [place] [address] May, 2013 [facility] [address] [id number] [facility] [place] [address] May, 2013 [facility] [address] [id number] [address] [place] [address], [place] [address] May, [facility] [address] [id number] [address] [place] [address], [place] [address] May, 2013 [facility] [address] [id number] [address] [place] [address], [place] [address] May, [facility] [address] [id number] [address] [place] [address], [place] [address] May, [facility] [address] [id number] [address] [place] [address], [place] [address] May, [facility] [address] [id number] [address] [place] [address], [place] [address] May, [facility] [address] [id number] [address] [place] [address], [place] [address] Apr, [facility] [address] [id number] [address] [place] [address], [place] [address] Apr, [facility] [address] [id number] [address] [place] [address], [place] [address] Apr, [facility] [address] [id number] [address] [place] [address], [place] [address] Apr, [facility] [address] [id number] [address] [place] [address], [place] [address] Apr, [facility] [address] [id number] [facility] [place] [address] Apr, [facility] [address] [id number] [address] [place] [address], [place] [address] Apr, [facility] [address] [id number] [address] [place] [address], [place] [address] Apr, [facility] [address] [id number] [address] [place] [address], [place] [address] Apr, [facility] [address] [id number] [address] [place] [address], [place] [address] Apr, [facility] [address] [id number] [address] [place] [address], [place] [address] Apr, [facility] [address] [id number] [address] [place] [address], [place] [address] Apr, [facility] [address] [id number] [address] [place] [address], [place] [address] Apr, [facility] [address] [id number] [address] [place] [address], [place] [address] Apr, [facility] [address] [id number] [address] [place] [address], [place] [address] March, [facility] [address] [id number] [address] [place] [address], [place] [address] March, [facility] [address] [id number] [address] [place] [address], [place] [address] March, [facility] [address] [id number] [address] [place] [address], [place] [address] March, [facility] [address] [id number] [address] [place] [address], [place] [address] March, [facility] [address] [id number] [address] [place] [address], [place] [address] March, [facility] [address] [id number] [facility] [place] [address] March, [facility] [address] [id number] [address] [place] [address], [place] [address] March, [facility] [address] [id number] [address] [place] [address], [place] [address] March, [facility] [address] [id number] [address] [place] [address], [place] [address] March, [facility] [address] [id number] [address] [place] [address], [place] [address] Feb, [facility] [address] [id number] [address] [place] [address], [place] [address] Feb, [facility] [address] [id number] [address] [place] [address], [place] [address] Feb, [facility] [address] [id number] [address] [place] [address], [place] [address] Feb, [facility] [address] [id number] [address] [place] [address], [place] [address] Feb, [facility] [address] [id number] [address] [place] [address], [place] [address] Feb, [facility] [address] [id number] [address] [place] [address], [place] [address] Feb, [facility] [address] [id number] [address] [place] [address], [place] [address] Feb, [facility] [address] [id number] [address] [place] [address], [place] [address] Jan, [facility] [address] [id number] [address] [place] [address], [place] [address] Jan, [facility] [address] [id number] [address] [place] [address], [place] [address] Jan, [facility] [address] [id number] [address] [place] [address], [place] [address] Jan, [facility] [address] [id number] [address] [place] [address], [place] [address] Jan, [facility] [address] [id number] [address] [place] [address], [place] [address] Jan, [facility] [address] [id number] [address] [place] [address], [place] [address] Jan, [facility] [address] [id number] [address] [place] [address], [place] [address] Jan, [facility] [address] [id number] [address] [place] [address], [place] [address] Jan, [facility] [address] [id number] [address] [place] [address], [place] [address] Jan, [facility] [address] [id number] [address] [place] [address], [place] [address] Dec, [facility] [address] [id number] [address] [place] [address], [place] [address] Dec, [facility] [address] [id number] [address] [place] [address], [place] [address] Nov, [facility] [address] [id number] [address] [place] [address], [place] [address] Nov, [facility] [address] [id number] [address] [place] [address], [place] [address] Nov, [facility] [address] [id number] [address] [place] [address], [place] [address] Nov, [facility] [address] [id number] [address] [place] [address], [place] [address] Nov, [facility] [address] [id number] [address] [place] [address], [place] [address] Nov, [facility] [address] [id number] [address] [place] [address], [place] [address] Nov, [facility] [address] [id number] [address] [place] [address] Nov, [facility] [address] [id number] [address] [place] [address], [place] [address] Oct, [facility] [address] [id number] [address] [place] [phone] Oct, [facility] [address] [id number] [address] [place] [address], [place] [address] Oct, [facility] [address] [id number] [address] [place] [address], [place] [address] Oct, [facility] [address] [id number] [address] [place] [address], [place] [address] Oct, [facility] [address] [id number] [address] [place] [address], [place] [address] Oct, [facility] [address] [id number] [address] [place] [id number] Sep, [facility] [address] [id number] [address] [place] [address], [place] [address] Sep, [facility] [address] [id number] [address] [place] [address], [place] [address] Sep, [facility] [address] [id number] [address] [place] [phone] Sep, [facility] [address] [id number] [address] [place] [address] Sep, [facility] [address] [id number] [address] [place] [phone] Aug, [facility] [address] [id number] [address] [place] [address] Aug, [facility] [address] [id number] [address] [place] [address] Aug, [facility] [address] [id number] [address] [place] [address] Aug, [facility] [address] [id number] [address] [place] [address], [place] [address] Aug, [facility] [address] [id number] [address] [place] [address], [place] [address] Aug, [facility] [address] [id number] [address] [place] [address], [place] [address] Jul, [facility] [address] [id number] [address] [place] [address], [place] [address] Jul, [facility] [address] [id number] [address] [place] [address], [place] [address] Jul, [facility] [address] [id number] [address] [place] [address], [place] [address] Jun, [facility] [address] [id number] [address] [place] [address], [place] [address] Jun, [facility] [address] [id number] [address] [place] [address], [place] [address] May, [facility] [address] [id number] [address] [place] [address], [place] [address] May, [facility] [address] [id number] [address] [place] [address], [place] [address] Apr, [facility] [address] [id number] [address] [place] [address], [place] [address] Apr, [facility] [address] [id number] [address] [place] [address], [place] [address] Apr, [facility] [address] [id number] [address] [place] [address], [place] [address] March, [facility] [address] [id number] [address] [place] [address], [place] [address] Feb, [facility] [address] [id number] [address] [place] [address], [place] [address] Feb, [facility] [address] [id number] [address] [place] [address], [place] [address] Jan, [facility] [address] [id number] [facility] [place] [address] Jan, [facility] [address] [id number] [facility] [place] [address] Jan, [facility] [address] [id number] [address] [place] [address], [place] [address] Jan, [facility] [address] [id number] [address] [place] [address], [place] [address] Jan, [facility] [address] [id number] [facility] [place] [address] Dec, [facility] [address] [id number] [address] [place] [address], [place] [address] Dec, [facility] [address] [id number] [address] [place] [address], [place] [address] 18 Dec, 2012 [facility] [address] [id number] [address] [place] [address], [place] [address] Dec, [facility] [address] [id number] [address] [place] [address], [place] [address] 05 Dec, 2012 [facility] [address] [id number] [address] [place] [address], [place] [address] 05 Dec, 2012 [facility] [address] [place] [id number] Nov, [facility] [address] [id number] [address] [place] [address], [place] [address] Nov, [facility] [address] [id number] [address] [place] [address], [place] [address] Nov, [facility] [address] [id number] [address] [place] [address], [place] [address] Nov, [facility] [address] [id number] [address] [place] [address], [place] [address] Nov, [facility] [address] [id number] [address] [place] [address] 27 Oct, 2012 [facility] [address] [id number] [address] [place] [address], [place] [address] Oct, [facility] [address] [id number] [address] [place] [address], [place] [address] Oct, [facility] [address] [id number] [address] [place] [address], [place] [address] Oct, [facility] [address] [id number] [address] [place] [address], [place] [address] Oct, [facility] [address] [id number] [address] [place] [address], [place] [address] Oct, [facility] [address] [id number] [address] [place] [address], [place] [address] Oct, [facility] [address] [id number] [address] [place] [address], [place] [address] Oct, [facility] [address] [id number] [address] [place] [address], [place] [address] Sep, [facility] [address] [id number] [address] [place] [address], [place] [address] Sep, [facility] [address] [id number] [address] [place] [address], [place] [address] Sep, [facility] [address] [id number] [address] [place] [address], [place] [address] Sep, [facility] [address] [id number] [address] [place] [address], [place] [address] Sep, [facility] [address] [id number] [address] [place] [address], [place] [address] Sep, [facility] [address] [id number] [address] [place] [address], [place] [address] Sep, [facility] [address] [id number] [address] [place] [address], [place] [address] Sep, [facility] [address] [id number] [address] [place] [address] Sep, [facility] [address] [id number] [address] [place] [address] Sep, [facility] [address] [id number] [address] [place] [address] Sep, [facility] [address] [id number] [address] [place] [address] Sep, [facility] [address] [facility] [id number] [address] [place] [address] Sep, [facility] [address] [id number] [address] [place] [address] Sep, [facility] [address] [facility] [id number] [address] [place] [id number] Sep, [facility] [address] [facility] [id number] [address] [place] [address] Sep, IMMUNIZATIONS No Known Immunizations SOCIAL HISTORY [...]
--- OUTSIDE RECORDS SUMMARY | 2020-04-17 21:47 | XMS REPORT ---
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 Active 63382061 Problem Type 1 diabetes mellitus with other diab etic neurological complication E10.49 Active [id number] ALLERGIES No Information ENCOUNTERS Encounter Location Date Diagnosis [facility] [address] [facility] [id number] [address] [place] [address] March, [facility] [address] [facility] [id number] [address] [place] [address] Feb, [facility] [address] [facility] [id number] [address] [place] [address] Feb, Type 1 diabetes mellitus wit h other diabetic neurological complication E10.49 ; Tobacco abuse Z72.0 and Tobacco abuse counseling Z71.6 [facility] [address] [facility] [id number] [address] [place] [address] Jan, Type 1 diabetes mellitus wit h hyperglycemia E10.65 [facility] [address] [facility] [id number] [address] [place] [address] Jan, [facility] [address] [facility] [id number] [address] [place] [address] Dec, Tobacco abuse Z72.0 [facility] [address] [facility] [id number] [address] [place] [address] 20 Dec, 2017 Type 1 diabetes mellitus wit h hyperglycemia E10.65 [facility] [address] [facility] [id number] [address] [place] [address] Dec, Type 1 diabetes mellitus wit h hyperglycemia E10.65 ; Tobacco abuse Z72.0 and Tobacco abuse counseling Z71.6 [facility] [address] [facility] [id number] [address] [place] [address] Nov, Type 1 diabetes mellitus wit h hyperglycemia E10.65 [facility] [address] [facility] [id number] [address] [place] [address] Oct, Type 1 diabetes mellitus wit h hyperglycemia E10.65 [facility] [address] [facility] [id number] [address] [place] [address] Oct, Type 1 diabetes mellitus wit h hyperglycemia E10.65 [facility] [address] [facility] [id number] [address] [place] [address] Sep, Type 1 diabetes mellitus wit h hyperglycemia E10.65 [facility] [address] [facility] [id number] [address] [place] [address] Aug, Type 1 diabetes mellitus wit h hyperglycemia E10.65 [facility] [address] [facility] [id number] [address] [place] [address] Aug, [facility] [address] [facility] [id number] [address] [place] [address] Aug, Type 1 diabetes mellitus wit h hyperglycemia E10.65 [facility] [address] [facility] [id number] [address] [place] [address] Aug, Encounter for immunization Z 23 [facility] [address] [facility] [id number] [address] [place] [address] Aug, Type 1 diabetes mellitus wit h hyperglycemia E10.65 [facility] [address] [facility] [id number] [address] [place] [address] Jul, Type 1 diabetes mellitus wit h hyperglycemia E10.65 [place] [address] [id number] [address] [place] [address] Jul, Type 1 diabetes mellitus wit h hyperglycemia E10.65 [facility] [address] [id number] [address] [place] [address] May, Type 1 diabetes mellitus wit h hyperglycemia E10.65 [facility] [address] [id number] [address] [place] [address] May, [facility] [address] [id number] [address] [place] [address] Apr, [facility] [address] [id number] [address] [place] [address] Apr, Type 1 diabetes mellitus wit h hyperglycemia E10.65 [facility] [address] [id number] [address] [place] [address] March, [facility] [address] [id number] [address] [place] [address] March, [facility] [address] [id number] [address] [place] [address] Jan, [facility] [address] [id number] [address] [place] [address] Jan, [facility] [address] [facility] [id number] [address] [place] [address] Jan, Type 1 diabetes mellitus wit h diabetic polyneuropathy E10.42 [facility] [address] [id number] [address] [place] [address] Jan, Type 1 diabetes mellitus wit h hyperglycemia E10.65 ; Excessive cerumen in both ear canals H61.23 and Controlled diabetes mellitus type 1 without complications E10.9 [facility] [address] [id number] [address] [place] [address] Dec, [facility] [address] [facility] [id number] [address] [place] [address] Dec, [facility] [address] [id number] [address] [place] [address] Dec, [facility] [address] [id number] [address] [place] [address] Dec, [facility] [address] [id number] [address] [place] [address] Nov, [facility] [address] [id number] [address] [place] [address] Nov, [facility] [address] [id number] [address] [place] [address] Oct, Type 1 diabetes mellitus wit h hyperglycemia E10.65 [facility] [address] [id number] [address] [place] [address] Sep, [facility] [address] [id number] [address] [place] [address] Sep, [facility] [address] [id number] [address] [place] [address] Sep, Controlled diabetes mellitus type 1 without complications E10.9 [facility] [address] [id number] [address] [place] [address] Sep, [facility] [address] [id number] [address] [place] [id number] Aug, Dental caries K02.9 [facility] [address] [id number] [address] [place] [address] Aug, Type 1 diabetes mellitus wit h diabetic polyneuropathy E10.42 [facility] [address] [id number] [address] [place] [address] Aug, [facility] [address] [id number] [address] [place] [address] Aug, [facility] [address] [id number] [address] [place] [address] Aug, [facility] [address] [id number] [address] [place] [address] Jul, Type 1 diabetes mellitus wit h hyperglycemia E10.65 [facility] [address] [id number] [address] [place] [address] Jul, Type 1 diabetes mellitus wit h hyperglycemia E10.65 ; Tooth pain K08.8 and Encounter for immunization Z23 [facility] [address] [id number] [address] [place] [address] [id number] 08 Jul, 2016 Dental examination Z01.20 [facility] [address] [id number] [address] [place] [address] 08 Jul, 2016 [facility] [address] [id number] [address] [place] [address] 07 Jul, 2016 [facility] [address] [id number] [address] [place] [address] Jul, [facility] [address] [id number] [address] [place] [address] Jun, [facility] [address] [id number] [address] [place] [address] May, [facility] [address] [id number] [address] [place] [address] Apr, [facility] [address] [id number] [address] [place] [address] Apr, [facility] [address] [id number] [address] [place] [address] Apr, [facility] [address] [id number] [address] [place] [address] March, [facility] [address] [id number] [address] [place] [address] March, [facility] [address] [id number] [address] [place] [address] Feb, [facility] [address] [id number] [address] [place] [address] Feb, [facility] [address] [facility] [id number] [address] [place] [address] Feb, Type 1 diabetes mellitus wit h hyperglycemia E10.65 [facility] [address] [facility] [id number] [address] [place] [address] Jan, [facility] [address] [facility] [id number] [address] [place] [address] Jan, [facility] [address] [facility] [id number] [address] [place] [address] Jan, [facility] [address] [facility] [id number] [address] [place] [address] Jan, [facility] [address] [facility] [id number] [address] [place] [address] Dec, [facility] [address] [facility] [id number] [address] [place] [address] Nov, [facility] [address] [facility] [id number] [address] [place] [address] Nov, [facility] [address] [facility] [id number] [address] [place] [address] Oct, [facility] [address] [facility] [id number] [address] [place] [address] 04 Oct, 2015 Type 1 diabetes mellitus wit h 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 ; Type 1 diabetes mellitus with hyperglycemia E10.65 ; Gastroparesis K31.84 and Esophageal stricture K22.2 [facility] [address] [facility] [id number] [address] [place] [address] Oct, [facility] [address] [facility] [id number] [address] [place] [address] Sep, [facility] [address] [facility] [id number] [address] [place] [address] Sep, Type 1 diabetes mellitus wit h other diabetic neurological complication E10.49 [facility] [address] [facility] [id number] [address] [place] [address] Aug, Encounter for immunization Z 23 [facility] [address] [id number] [address] [place] [address] Aug, [facility] [address] [id number] [address] [place] [address] Aug, [facility] [address] [id number] [address] [place] [address] Jul, [facility] [address] [id number] [address] [place] [address] Jul, [facility] [address] [id number] [address] [place] [address] Jun, [facility] [address] [id number] [address] [place] [address] Jun, [facility] [address] [id number] [address] [place] [address] Jun, [facility] [address] [id number] [address] [place] [address] May, [facility] [address] [id number] [address] [place] [address] May, [facility] [address] [id number] [address] [place] [address] May, Diabetes type 1, controlled 250.01 [facility] [address] [id number] [address] [place] [address] May, [facility] [address] [id number] [address] [place] [address] May, [facility] [address] [id number] [address] [place] [address] [id number] Apr, Dental examination V72.2 [facility] [address] [id number] [address] [place] [address] Apr, [facility] [address] [id number] [address] [place] [address] Apr, [facility] [address] [id number] [address] [place] [address] Apr, [facility] [address] [id number] [address] [place] [address] Apr, [facility] [address] [id number] [address] [place] [address] Apr, [facility] [address] [id number] [address] [place] [id number] Apr, Dental examination V72.2 [facility] [address] [id number] [address] [place] [address] Apr, [facility] [address] [id number] [address] [place] [address] Apr, [facility] [address] [id number] [address] [place] [address] March, Diabetes mellitus type 1 250 .01 [facility] [address] [id number] [address] [place] [address] March, [facility] [address] [id number] [address] [place] [address] Feb, [facility] [address] [id number] [address] [place] [address] Feb, [facility] [address] [id number] [address] [place] [address] Jan, [facility] [address] [id number] [address] [place] [address] Jan, [facility] [address] [id number] [address] [place] [address] Jan, [facility] [address] [id number] [address] [place] [address] Jan, [facility] [address] [id number] [address] [place] [address] Dec, [facility] [address] [id number] [address] [place] [address], [place] [address] Dec, [facility] [address] [id number] [address] [place] [address], [place] [address] Nov, [facility] [address] [id number] [address] [place] [address], [place] [address] Nov, [facility] [address] [id number] [address] [place] [address], [place] [address] Nov, [facility] [address] [id number] [address] [place] [address], [place] [address] Nov, [facility] [address] [id number] [address] [place] [address], [place] [address] Nov, [facility] [address] [id number] [address] [place] [address], [place] [address] Nov, [facility] [address] [id number] [address] [place] [address], [place] [address] Nov, [facility] [address] [id number] [address] [place] [address], [place] [address] Oct, [facility] [address] [id number] [address] [place] [address], [place] [address] Oct, [facility] [address] [id number] [address] [place] [address], [place] [address] Sep, [facility] [address] [id number] [address] [place] [address], [place] [address] Aug, [facility] [address] [id number] [address] [place] [address], [place] [address] Aug, [facility] [place] [facility] [address] [id number] [address] [place] [address], [place] [address] Aug, [facility] [address] [id number] [address] [place] [address], [place] [address] Aug, [facility] [address] [id number] [address] [place] [address], [place] [address] Aug, [facility] [place] [facility] [address] [id number] [address] [place] [address], [place] [address] Aug, [facility] [place] [facility] [address] [id number] [address] [place] [address], [place] [address] Aug, [facility] [place] [facility] [address] [id number] [address] [place] [address], [place] [address] Aug, [facility] [place] [facility] [address] [id number] [address] [place] [address], [place] [address] Aug, [facility] [address] [id number] [address] [place] [address], [place] [address] Aug, [facility] [place] [facility] [address] [id number] [address] [place] [address], [place] [address] Aug, [facility] [address] [id number] [address] [place] [address], [place] [address] Aug, [facility] [place] [facility] [address] [id number] [address] [place] [address], [place] [address] Aug, [facility] [address] [id number] [address] [place] [address], [place] [address] Aug, [facility] [place] [facility] [address] [id number] [address] [place] [address], [place] [address] Jul, [facility] [place] [facility] [address] [id number] [address] [place] [address], [place] [address] Jul, [facility] [place] [facility] [address] [id number] [address] [place] [address] Jul, [facility] [place] [facility] [address] [id number] [address] [place] [address], [place] [address] Jul, [facility] [place] [facility] [address] [id number] [address] [place] [address], [place] [address] Jun, [facility] [place] [facility] [address] [id number] [address] [place] [address], [place] [address] Jun, [facility] [place] [facility] [address] [id number] [facility] [place] [address] Jun, [facility] [address] [id number] [address] [place] [address], [place] [address] Jun, [facility] [address] [id number] [address] [place] [address], [place] [address] May, [facility] [address] [id number] [address] [place] [address], [place] [address] May, [facility] [address] [id number] [address] [place] [address], [place] [address] May, [facility] [address] [id number] [address] [place] [address], [place] [address] May, [facility] [address] [id number] [address] [place] [address], [place] [address] May, [facility] [address] [id number] [address] [place] [address], [place] [address] May, [facility] [address] [id number] [address] [place] [address], [place] [address] May, [facility] [address] [id number] [address] [place] [address], [place] [address] May, [facility] [address] [id number] [address] [place] [address], [place] [address] May, [facility] [place] [facility] [address] [id number] [address] [place] [address], [place] [address] May, [facility] [address] [id number] [address] [place] [address], [place] [address] May, [facility] [place] [facility] [address] [id number] [address] [place] [address], [place] [address] May, [facility] [place] [facility] [address] [id number] [address] [place] [address], [place] [address] May, [facility] [place] [facility] [address] [id number] [address] [place] [address], [place] [address] Apr, [facility] [place] [facility] [address] [id number] [facility] [place] [address] Apr, [facility] [place] [facility] [address] [id number] [facility] [place] [address] Apr, [facility] [place] [facility] [address] [id number] [facility] [place] [address] Apr, [facility] [place] [facility] [address] [id number] [address] [place] [address], [place] [address] Apr, [facility] [place] [facility] [address] [id number] [address] [place] [address], [place] [address] Apr, [facility] [place] [facility] [address] [id number] [address] [place] [address], [place] [address] Apr, [facility] [place] [facility] [address] [id number] [address] [place] [address], [place] [address] Apr, [facility] [place] [facility] [address] [id number] [address] [place] [address], [place] [address] Apr, [facility] [place] [facility] [address] [id number] [address] [place] [address], [place] [address] Apr, [facility] [place] [facility] [address] [id number] [address] [place] [address], [place] [address] Apr, [facility] [place] [facility] [address] [id number] [address] [place] [address], [place] [address] Apr, [facility] [place] [facility] [address] [id number] [address] [place] [address], [place] [address] Apr, [facility] [place] [facility] [address] [id number] [address] [place] [address], [place] [address] Apr, [facility] [place] [facility] [address] [id number] [address] [place] [address], [place] [address] March, [facility] [place] [facility] [address] [id number] [address] [place] [address], [place] [address] March, [facility] [place] [facility] [address] [id number] [address] [place] [address], [place] [address] March, [facility] [address] [id number] [address] [place] [address], [place] [address] March, [facility] [address] [id number] [address] [place] [address], [place] [address] March, [facility] [address] [id number] [address] [place] [address], [place] [address] March, [facility] [address] [id number] [address] [place] [address], [place] [address] March, [facility] [address] [id number] [address] [place] [address], [place] [address] March, [facility] [address] [id number] [address] [place] [address], [place] [address] March, [facility] [address] [id number] [address] [place] [address], [place] [address] March, [facility] [address] [id number] [address] [place] [address], [place] [address] Feb, [facility] [address] [id number] [address] [place] [address], [place] [address] Feb, [facility] [address] [id number] [address] [place] [address], [place] [address] Feb, [facility] [address] [id number] [address] [place] [address], [place] [address] Feb, [facility] [address] [id number] [address] [place] [address], [place] [address] Feb, [facility] [address] [id number] [address] [place] [address], [place] [address] Feb, [facility] [address] [id number] [address] [place] [address], [place] [address] Feb, [facility] [address] [id number] [address] [place] [address], [place] [address] Feb, [facility] [address] [id number] [address] [place] [address] 18 Jan, 2014 [facility] [address] [id number] [address] [place] [address] Jan, [facility] [address] [id number] [address] [place] [address] Jan, [facility] [address] [id number] [facility] [place] [address] Jan, [facility] [address] [id number] [address] [place] [address], [place] [address] Jan, [facility] [address] [id number] [address] [place] [address], [place] [address] Jan, [facility] [address] [id number] [address] [place] [address], [place] [address] Jan, [facility] [address] [id number] [address] [place] [address], [place] [address] Jan, [facility] [address] [id number] [address] [place] [address], [place] [address] Jan, [facility] [address] [id number] [address] [place] [address], [place] [address] Jan, [facility] [address] [id number] [address] [place] [address], [place] [address] Dec, [facility] [address] [id number] [address] [place] [address], [place] [address] Dec, [facility] [address] [id number] [address] [place] [address], [place] [address] Nov, [facility] [place] [facility] [address] [id number] [address] [place] [address], [place] [address] Nov, [facility] [place] [facility] [address] [id number] [address] [place] [address], [place] [address] Nov, [facility] [place] [facility] [address] [id number] [address] [place] [address], [place] [address] Nov, [facility] [address] [id number] [address] [place] [address], [place] [address] Nov, [facility] [address] [id number] [address] [place] [address], [place] [address] Nov, [facility] [address] [id number] [address] [place] [address], [place] [address] Nov, [facility] [address] [id number] [address] [place] [address], [place] [address] Nov, [facility] [address] [id number] [address] [place] [address], [place] [address] Oct, [facility] [address] [id number] [address] [place] [address], [place] [address] Oct, [facility] [address] [id number] [address] [place] [address], [place] [address] Oct, [facility] [address] [id number] [address] [place] [address], [place] [address] Oct, [facility] [address] [id number] [address] [place] [address], [place] [address] Oct, [facility] [address] [id number] [address] [place] [address], [place] [address] Oct, [facility] [address] [id number] [address] [place] [address], [place] [address] Sep, [facility] [address] [id number] [address] [place] [address], [place] [address] Sep, [facility] [address] [id number] [address] [place] [address], [place] [address] Sep, [facility] [address] [id number] [address] [place] [address], [place] [address] Sep, [facility] [address] [id number] [address] [place] [address], [place] [address] 05 Sep, 2013 [facility] [address] [id number] [address] [place] [address], [place] [address] Aug, [facility] [address] [id number] [address] [place] [address], [place] [address] Aug, [facility] [address] [id number] [address] [place] [address], [place] [address] Aug, [facility] [address] [id number] [address] [place] [address], [place] [address] Aug, [facility] [address] [id number] [address] [place] [address], [place] [address] Aug, [facility] [address] [id number] [address] [place] [address], [place] [address] Aug, [facility] [address] [id number] [address] [place] [address], [place] [address] Jul, [facility] [address] [id number] [address] [place] [address], [place] [address] Jul, [facility] [address] [id number] [address] [place] [address], [place] [address] Jul, [facility] [address] [id number] [address] [place] [address], [place] [address] Jun, [facility] [address] [id number] [address] [place] [address], [place] [address] Jun, [facility] [address] [id number] [address] [place] [address], [place] [address] May, [facility] [address] [id number] [address] [place] [address], [place] [address] May, [facility] [address] [id number] [address] [place] [address], [place] [address] Apr, [facility] [address] [id number] [address] [place] [address], [place] [address] Apr, [facility] [address] [id number] [address] [place] [address], [place] [address] Apr, [facility] [address] [id number] [address] [place] [address], [place] [address] March, [facility] [address] [id number] [address] [place] [address], [place] [address] Feb, [facility] [address] [id number] [address] [place] [address], [place] [address] Feb, [facility] [address] [id number] [address] [place] [address], [place] [address] Jan, [facility] [address] [id number] [address] [place] [address], [place] [address] Jan, [facility] [address] [id number] [address] [place] [address], [place] [address] Jan, [facility] [address] [id number] [address] [place] [address], [place] [address] Jan, [facility] [address] [id number] [address] [place] [address], [place] [address] Jan, [facility] [address] [id number] [address] [place] [address], [place] [address] Dec, [facility] [address] [id number] [address] [place] [address], [place] [address] Dec, [facility] [address] [id number] [address] [place] [address], [place] [address] Dec, [facility] [address] [id number] [address] [place] [address], [place] [address] Dec, [facility] [address] [id number] [address] [place] [address], [place] [address] Dec, [facility] [address] [id number] [address] [place] [address], [place] [address] Dec, [facility] [address] [place] [id number] Nov, [facility] [address] [id number] [address] [place] [address] [place] [address] 11 Nov, 2012 [facility] [address] [id number] [address] [place] [address], [place] [address] Nov, [facility] [address] [id number] [address] [place] [address], [place] [address] Nov, [facility] [address] [id number] [address] [place] [address], [place] [address] Nov, [facility] [address] [id number] [address] [place] [address], [place] [address] Oct, [facility] [address] [id number] [address] [place] [address], [place] [address] Oct, [facility] [address] [id number] [address] [place] [address], [place] [address] Oct, [facility] [address] [id number] [address] [place] [address], [place] [address] Oct, [facility] [address] [id number] [address] [place] [address], [place] [address] Oct, [facility] [address] [id number] [address] [place] [address], [place] [address] Oct, [facility] [address] [id number] [address] [place] [address], [place] [address] Oct, [facility] [address] [id number] [address] [place] [address], [place] [address] Oct, [facility] [address] [id number] [address] [place] [address], [place] [address] Sep, [facility] [address] [id number] [address] [place] [address], [place] [address] Sep, [facility] [address] [id number] [address] [place] [address], [place] [address] Sep, [facility] [address] [id number] [address] [place] [address], [place] [address] Sep, [facility] [address] [id number] [address] [place] [address] Sep, [facility] [address] [id number] [address] [place] [address] Sep, [facility] [address] [id number] [address] [place] [address] Sep, [facility] [address] [id number] [address] [place] [address] Sep, [facility] [address] [id number] [address] [place] [address] Sep, [facility] [address] [id number] [address] [place] [address] Sep, [facility] [address] [id number] [address] [place] [address] Sep, [facility] [address] [id number] [address] [place] [address] Sep, [facility] [address] [id number] [address] [place] [address] Sep, [facility] [address] [id number] [address] [place] [address] Sep, [facility] [address] [id number] [address] [place] [address] Sep, [facility] [address] [id number] [address] [place] [address] Sep, IMMUNIZATIONS No Known Immunizations SOCIAL HISTORY [...]
--- OUTSIDE RECORDS SUMMARY | 2020-04-17 21:47 | XMS REPORT ---
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
--- OUTSIDE RECORDS SUMMARY | 2020-04-17 21:48 | XMS REPORT ---
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 Ortho Nurse Name Role Phone BISMARK PATIÑO CP Unavailable [...] Start Date End Date Status Dosage Diazepam [facility] [address]-92 10 MG Orally 3 times a day 1 tablet Results No Known Results Summary Purpose [employer] Submission
--- OUTSIDE RECORDS SUMMARY | 2020-04-17 21:48 | XMS REPORT ---
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 Active 27428460 Problem Type 1 diabetes mellitus with other diab etic neurological complication E10.49 Active 43404729 ALLERGIES Substance Reaction Event Type Date Status Cipro Unknown Drug Allergy Jul, Active Sulfa(sulfonamide Antibiotics) Unknown Non Drug Allergy Jul Active SOCIAL HISTORY Never Assessed PLAN OF CARE Activity Details Follow Up 4 Weeks Reason:dm1 ooc VITAL SIGNS Height 68 in 2016-08-13 Weight 163.3 lbs 2016-08-13 Temperature 97.9 degrees Fahrenheit 2016-08-13 Heart Rate 80 bpm 2016-08-13 Respiratory Rate 20 2016-08-13 BMI 24.83 kg/m2 2016-08-13 Blood pressure systolic 102 mmHg 2016-08-13 Blood pressure diastolic 78 mmHg 2016-08-13 MEDICATIONS Medication Instructions Dosage Frequency Start Date End Date Duration S tatus [place] 5-325 MG Orally every 6 hrs 1 tablet as needed 6h Jul, 6 Active Enalapril Maleate 10 MG Orally Once a day 1 tablet 24h 30 Active NovoLog 100 UNIT/ML up to 45 units daily Active Genaro Contour Next Test TEST BLOOD FOUR TIMES A DAY. DIAG. 250.5 0 90 Active Diazepam 10 MG Orally 3 times a day 1 tablet 8h Active Glucagon Emergency 1 MG as directed May, 1 dose Active RESULTS Name Result Date Reference Range A1C (IN HOUSE) 2016-08-13 A1C IN HOUSE 7.5 4.3 - 5.6 % Previous A1c 7.1 Lot 0620 Exp date 05/2018 PROCEDURES Procedure Date Ordered Result Body Site GLYCATED HEMOGLOBIN TEST Aug 13, 2016 [facility] VISIT ESTABLISHED PATIENT Aug 13, 2016 FLUARIX QUAD P-FREE 3 AND UP .50 2015Aug 13, 2016 SINGLE IMMUNIZATION ADMIN Aug 13, 2016 IMMUNIZATIONS Vaccine Route Administration Date Status FLUARIX QUAD P-FREE 3 AND UP .50 2015 IM Intramuscular Aug 13, 2016 Administered MEDICAL (GENERAL) HISTORY Type Description Date Medical History hypertension Medical History type I diabetes Medical History chronic renal insufficiency Surgical History gastric pacemaker 2008 Hospitalization History nausea 2011
--- OUTSIDE RECORDS SUMMARY | 2020-04-17 21:48 | XMS REPORT ---
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
--- OUTSIDE RECORDS SUMMARY | 2020-04-17 21:48 | XMS REPORT ---
Author Author Curt PATIÑO Organization [facility] Address [address] [place] [address] Care Team Providers Care Family Day Care Worker Name Role Phone BISMARK PATIÑO Unavailable PROBLEMS Type Condition ICD9-CM Code [id number] Code Onset Dates Condition S tatus SNOMED Code Problem Mood disorder F39 Active 987272 05 Problem Type 1 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 Active 79491860 Problem Type 1 diabetes mellitus with hyperglycemia E10.65 Active 975879280869691 Problem Gastroparesis K31.84 Active 894287 006 Problem Hypertension, essential I10 Active 91839105 Problem 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
--- OUTSIDE RECORDS SUMMARY | 2020-04-17 21:48 | XMS REPORT ---
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
--- OUTSIDE RECORDS SUMMARY | 2020-04-17 21:48 | XMS REPORT ---
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 Line Cook Name Role Phone BISMARK PATIÑO CP Unavailable [...]
--- OUTSIDE RECORDS SUMMARY | 2020-04-17 21:48 | XMS REPORT ---
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 Manifest/Order Organizer Print Orders Name Role Phone BISMARK PATIÑO CP Unavailable Allergies No Known Allergies Problems Problem Type Condition Code Onset Dates Condition Statu s Assessment Encounter for immunization Z23 A ctive Problem Anxiety state, unspecified 300.00 A ctive [...] uncontrolled 250.51 Active Medications No Known Medications Procedures Procedure Coding System Code Date SINGLE IMMUNIZATION ADMIN CPT-4 24954 Aug FLUARIX QUAD (3 & UP)-GSK-2014 CPT-[address] 2014 Results No Known Results Immunizations Vaccine Administration Date FLUARIX QUAD (3 & UP)-GSK-2014Sep 11, 2015 Summary Purpose [employer] Submission
--- OUTSIDE RECORDS SUMMARY | 2020-04-17 21:48 | XMS REPORT ---
Author Author Curt PATIÑO Organization [facility] Address [address] [place] [address] Care Team Providers Care Building Repair Maintenance Supervisor Name Role Phone BISMARK PATIÑO Unavailable PROBLEMS Type Condition ICD9-CM Code [id number] Code Onset Dates Condition S tatus SNOMED Code Problem Mood disorder F39 Active 804801 05 Problem Type 1 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 Active 18473382 Problem Type 1 diabetes mellitus with hyperglycemia E10.65 Active 869107027449389 Problem Gastroparesis K31.84 Active 243025 006 Problem Hypertension, essential I10 Active 93420817 Problem 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
--- OUTSIDE RECORDS SUMMARY | 2020-04-17 21:48 | XMS REPORT ---
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 Active 54998597 Problem Type 1 diabetes mellitus with other diab etic neurological complication E10.49 Active 28163547 ALLERGIES No Information ENCOUNTERS Encounter Location Date Diagnosis [facility] [address] [facility] [id number] [address] [place] [phone] March, [facility] [address] [facility] [id number] [address] [place] [phone] Feb, [facility] [address] [facility] [id number] [address] [place] [address] Feb, Type 1 diabetes mellitus wit h other diabetic neurological complication E10.49 ; Tobacco abuse Z72.0 and Tobacco abuse counseling Z71.6 [facility] [address] [facility] [id number] [address] [place] [address] Jan, Type 1 diabetes mellitus wit h hyperglycemia E10.65 [facility] [address] [facility] [id number] [address] [place] [id number] Jan, [facility] [address] [facility] [id number] [address] [place] [address] Dec, Tobacco abuse Z72.0 [facility] [address] [facility] [id number] [address] [place] [address] 20 Dec, 2017 Type 1 diabetes mellitus wit h hyperglycemia E10.65 [facility] [address] [facility] [id number] [address] [place] [address] Dec, Type 1 diabetes mellitus wit h hyperglycemia E10.65 ; Tobacco abuse Z72.0 and Tobacco abuse counseling Z71.6 [facility] [address] [facility] [id number] [address] [place] [address] Nov, Type 1 diabetes mellitus wit h hyperglycemia E10.65 [facility] [address] [facility] [id number] [address] [place] [address] Oct, Type 1 diabetes mellitus wit h hyperglycemia E10.65 [facility] [address] [facility] [id number] [address] [place] [address] Oct, Type 1 diabetes mellitus wit h hyperglycemia E10.65 [facility] [address] [facility] [id number] [address] [place] [address] Sep, Type 1 diabetes mellitus wit h hyperglycemia E10.65 [facility] [address] [facility] [id number] [address] [place] [address] Aug, Type 1 diabetes mellitus wit h hyperglycemia E10.65 [facility] [address] [facility] [id number] [address] [place] [address] Aug, [facility] [address] [facility] [id number] [address] [place] [address] Aug, Type 1 diabetes mellitus wit h hyperglycemia E10.65 [facility] [address] [facility] [id number] [address] [place] [address] Aug, Encounter for immunization Z 23 [facility] [address] [facility] [id number] [address] [place] [address] Aug, Type 1 diabetes mellitus wit h hyperglycemia E10.65 [facility] [address] [facility] [id number] [address] [place] [address] Jul, Type 1 diabetes mellitus wit h hyperglycemia E10.65 [facility] [address] [id number] [address] [place] [address] Jul, Type 1 diabetes mellitus wit h hyperglycemia E10.65 [facility] [address] [id number] [address] [place] [address] May, Type 1 diabetes mellitus wit h hyperglycemia E10.65 [facility] [address] [id number] [address] [place] [address] May, [facility] [address] [id number] [address] [place] [address] Apr, [facility] [address] [id number] [address] [place] [address] Apr, Type 1 diabetes mellitus wit h hyperglycemia E10.65 [facility] [address] [id number] [address] [place] [id number] March, [facility] [address] [id number] [address] [place] [address] March, [facility] [address] [id number] [address] [place] [phone] Jan, [facility] [address] [id number] [address] [place] [address] Jan, [facility] [address] [facility] [id number] [address] [place] [address] Jan, Type 1 diabetes mellitus wit h diabetic polyneuropathy E10.42 [facility] [address] [id number] [address] [place] [address] Jan, Type 1 diabetes mellitus wit h hyperglycemia E10.65 ; Excessive cerumen in both ear canals H61.23 and Controlled diabetes mellitus type 1 without complications E10.9 [facility] [address] [id number] [address] [place] [phone] Dec, [facility] [address] [facility] [id number] [address] [place] [phone] Dec, [facility] [address] [id number] [address] [place] [address] Dec, [facility] [address] [id number] [address] [place] [address] Dec, [facility] [address] [id number] [address] [place] [phone] Nov, [facility] [address] [id number] [address] [place] [phone] Nov, [facility] [address] [id number] [address] [place] [address] Oct, Type 1 diabetes mellitus wit h hyperglycemia E10.65 [facility] [address] [id number] [address] [place] [phone] Sep, [facility] [address] [id number] [address] [place] [address] Sep, [facility] [address] [id number] [address] [place] [id number] Sep, Controlled diabetes mellitus type 1 without complications E10.9 [facility] [address] [id number] [address] [place] [id number] Sep, [facility] [address] [id number] [address] [place] [id number] Aug, Dental caries K02.9 [facility] [address] [id number] [address] [place] [address] Aug, Type 1 diabetes mellitus wit h diabetic polyneuropathy E10.42 [facility] [address] [id number] [address] [place] [phone] Aug, [facility] [address] [id number] [address] [place] [id number] Aug, [facility] [address] [id number] [address] [place] [id number] Aug, [facility] [address] [id number] [address] [place] [id number] Jul, Type 1 diabetes mellitus wit h hyperglycemia E10.65 [facility] [address] [id number] [address] [place] [address] Jul, Type 1 diabetes mellitus wit h hyperglycemia E10.65 ; Tooth pain K08.8 and Encounter for immunization Z23 [facility] [address] [id number] [address] [place] [id number] Jul, 2016 Dental examination Z01.20 [facility] [address] [id number] [address] [place] [id number] 08 Jul, 2016 [facility] [address] [id number] [address] [place] [id number] 07 Jul, 2016 [facility] [address] [id number] [address] [place] [id number] Jul, [facility] [address] [id number] [address] [place] [phone] Jun, [facility] [address] [id number] [address] [place] [id number] May, [facility] [address] [id number] [address] [place] [id number] Apr, [facility] [address] [id number] [address] [place] [id number] Apr, [facility] [address] [id number] [address] [place] [id number] Apr, [facility] [address] [id number] [address] [place] [id number] March, [facility] [address] [id number] [address] [place] [id number] March, [facility] [address] [id number] [address] [place] [id number] Feb, [facility] [address] [id number] [address] [place] [id number] Feb, [facility] [address] [facility] [id number] [address] [place] [id number] Feb, Type 1 diabetes mellitus wit h hyperglycemia E10.65 [facility] [address] [facility] [id number] [address] [place] [phone] Jan, [facility] [address] [facility] [id number] [address] [place] [phone] Jan, [facility] [address] [facility] [id number] [address] [place] [id number] Jan, [facility] [address] [facility] [id number] [address] [place] [phone] Jan, [facility] [address] [facility] [id number] [address] [place] [id number] Dec, [facility] [address] [facility] [id number] [address] [place] [phone] Nov, [facility] [address] [facility] [id number] [address] [place] [id number] Nov, [facility] [address] [facility] [id number] [address] [place] [id number] Oct, [facility] [address] [facility] [id number] [address] [place] [id number] 04 Oct, 2015 Type 1 diabetes mellitus wit h 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 ; Type 1 diabetes mellitus with hyperglycemia E10.65 ; Gastroparesis K31.84 and Esophageal stricture K22.2 [facility] [address] [facility] [id number] [address] [place] [id number] Oct, [facility] [address] [facility] [id number] [address] [place] [id number] Sep, [facility] [address] [facility] [id number] [address] [place] [id number] Sep, Type 1 diabetes mellitus wit h other diabetic neurological complication E10.49 [facility] [address] [facility] [id number] [address] [place] [id number] Aug, Encounter for immunization Z 23 [facility] [address] [id number] [address] [place] [id number] Aug, [facility] [address] [id number] [address] [place] [id number] Aug, [facility] [address] [id number] [address] [place] [id number] Jul, [facility] [address] [id number] [address] [place] [id number] Jul, [facility] [address] [id number] [address] [place] [id number] Jun, [facility] [address] [id number] [address] [place] [id number] Jun, [facility] [address] [id number] [address] [place] [id number] Jun, [facility] [address] [id number] [address] [place] [phone] May, [facility] [address] [id number] [address] [place] [id number] May, [facility] [address] [id number] [address] [place] [id number] May, Diabetes type 1, controlled 250.01 [facility] [address] [id number] [address] [place] [id number] May, [facility] [address] [id number] [address] [place] [id number] May, [facility] [address] [id number] [address] [place] [id number] Apr, Dental examination V72.2 [facility] [address] [id number] [address] [place] [id number] Apr, [facility] [address] [id number] [address] [place] [phone] Apr, [facility] [address] [id number] [address] [place] [id number] Apr, [facility] [address] [id number] [address] [place] [id number] Apr, [facility] [address] [id number] [address] [place] [id number] Apr, [facility] [address] [id number] [address] [place] [id number] Apr, Dental examination V72.2 [facility] [address] [id number] [address] [place] [id number] Apr, [facility] [address] [id number] [address] [place] [id number] Apr, [facility] [address] [id number] [address] [place] [id number] March, Diabetes mellitus type 1 250 .01 [facility] [address] [id number] [address] [place] [id number] March, [facility] [address] [id number] [address] [place] [phone] Feb, [facility] [address] [id number] [address] [place] [phone] Feb, [facility] [address] [id number] [address] [place] [id number] Jan, [facility] [address] [id number] [address] [place] [phone] Jan, [facility] [address] [id number] [address] [place] [phone] Jan, [facility] [address] [id number] [address] [place] [id number] Jan, [facility] [address] [id number] [address] [place] [id number] Dec, [facility] [address] [id number] [address] [place] [address], [place] [id number] Dec, [facility] [address] [id number] [address] [place] [address], [place] [id number] Nov, [facility] [address] [id number] [address] [place] [address], [place] [address] Nov, [facility] [address] [id number] [address] [place] [address], [place] [address] Nov, [facility] [address] [id number] [address] [place] [address], [place] [address] Nov, [facility] [address] [id number] [address] [place] [address], [place] [address] Nov, [facility] [address] [id number] [address] [place] [address], [place] [address] Nov, [facility] [address] [id number] [address] [place] [address], [place] [address] Nov, [facility] [address] [id number] [address] [place] [address], [place] [address] Oct, [facility] [address] [id number] [address] [place] [address], [place] [id number] Oct, [facility] [address] [id number] [address] [place] [address], [place] [address] Sep, [facility] [address] [id number] [address] [place] [address], [place] [address] Aug, [facility] [address] [id number] [address] [place] [address], [place] [address] Aug, [facility] [address] [id number] [address] [place] [address], [place] [address] Aug, [facility] [address] [id number] [address] [place] [address], [place] [id number] Aug, [facility] [address] [id number] [address] [place] [address], [place] [id number] Aug, [facility] [address] [id number] [address] [place] [address], [place] [id number] Aug, [facility] [address] [id number] [address] [place] [address], [place] [id number] Aug, [facility] [address] [id number] [address] [place] [address], [place] [address] Aug, [facility] [address] [id number] [address] [place] [address], [place] [address] Aug, [facility] [address] [id number] [address] [place] [address], [place] [address] Aug, [facility] [address] [id number] [address] [place] [address], [place] [address] Aug, [facility] [address] [id number] [address] [place] [address], [place] [address] Aug, [facility] [address] [id number] [address] [place] [address], [place] [address] Aug, [facility] [address] [id number] [address] [place] [address], [place] [address] Aug, [facility] [address] [id number] [address] [place] [address], [place] [address] Jul, [facility] [address] [id number] [address] [place] [address], [place] [address] Jul, [facility] [address] [id number] [address] [place] [phone] Jul, [facility] [address] [id number] [address] [place] [address], [place] [address] Jul, [facility] [address] [id number] [address] [place] [address], [place] [id number] Jun, [facility] [address] [id number] [address] [place] [address], [place] [address] Jun, [facility] [address] [id number] [facility] [place] [address] Jun, [facility] [address] [id number] [address] [place] [address], [place] [address] Jun, [facility] [address] [id number] [address] [place] [address], [place] [address] May, [facility] [address] [id number] [address] [place] [address], [place] [address] May, [facility] [address] [id number] [address] [place] [address], [place] [address] May, [facility] [address] [id number] [address] [place] [address], [place] [address] May, [facility] [address] [id number] [address] [place] [address], [place] [address] May, [facility] [address] [id number] [address] [place] [address], [place] [id number] May, [facility] [address] [id number] [address] [place] [address], [place] [address] May, [facility] [address] [id number] [address] [place] [address], [place] [address] May, [facility] [address] [id number] [address] [place] [address], [place] [address] May, [facility] [address] [id number] [address] [place] [address], [place] [address] May, [facility] [address] [id number] [address] [place] [address], [place] [address] May, [facility] [address] [id number] [address] [place] [address], [place] [address] May, [facility] [address] [id number] [address] [place] [address], [place] [address] May, [facility] [address] [id number] [address] [place] [address], [place] [address] Apr, [facility] [address] [id number] [facility] [place] [address] Apr, [facility] [address] [id number] [facility] [place] [address] Apr, [facility] [address] [id number] [address] [place] [address] Apr, [facility] [address] [id number] [address] [place] [address], [place] [address] Apr, [facility] [address] [id number] [address] [place] [address], [place] [address] Apr, [facility] [address] [id number] [address] [place] [address], [place] [address] Apr, [facility] [address] [id number] [address] [place] [address], [place] [address] Apr, [facility] [address] [id number] [address] [place] [address], [place] [address] Apr, [facility] [address] [id number] [address] [place] [address], [place] [address] Apr, [facility] [address] [id number] [address] [place] [address], [place] [address] Apr, [facility] [address] [id number] [address] [place] [address], [place] [address] Apr, [facility] [address] [id number] [address] [place] [address], [place] [address] Apr, [facility] [address] [id number] [address] [place] [address], [place] [address] Apr, [facility] [address] [id number] [address] [place] [address], [place] [address] March, [facility] [address] [id number] [address] [place] [address], [place] [address] March, [facility] [address] [id number] [address] [place] [address], [place] [address] March, [facility] [address] [id number] [address] [place] [address], [place] [address] March, [facility] [address] [id number] [address] [place] [address], [place] [address] March, [facility] [address] [id number] [address] [place] [address], [place] [address] March, [facility] [address] [id number] [address] [place] [address], [place] [address] March, [facility] [address] [id number] [address] [place] [address], [place] [address] March, [facility] [address] [id number] [address] [place] [address], [place] [address] March, [facility] [address] [id number] [address] [place] [address], [place] [address] March, [facility] [address] [id number] [address] [place] [address], [place] [address] Feb, [facility] [address] [id number] [address] [place] [address], [place] [address] Feb, [facility] [address] [id number] [address] [place] [address], [place] [address] Feb, [facility] [address] [id number] [address] [place] [address], [place] [address] Feb, [facility] [address] [id number] [address] [place] [address], [place] [address] Feb, [facility] [address] [id number] [address] [place] [address], [place] [address] Feb, [facility] [address] [id number] [address] [place] [address], [place] [address] Feb, [facility] [address] [id number] [address] [place] [address], [place] [address] Feb, [facility] [address] [id number] [address] [place] [id number] 18 Jan, 2014 [facility] [address] [id number] [address] [place] [address] Jan, [facility] [address] [id number] [address] [place] [address] Jan, [facility] [address] [id number] [address] [place] [address] Jan, [facility] [address] [id number] [address] [place], [place] [address], [place] [address] Jan, [facility] [address] [id number] [address] [place] [address], [place] [address] Jan, [facility] [address] [id number] [address] [place] [address], [place] [address] Jan, [facility] [address] [id number] [address] [place] [address], [place] [address] Jan, [facility] [address] [id number] [address] [place] [address], [place] [address] Jan, [facility] [address] [id number] [address] [place] [address], [place] [address] Jan, [facility] [address] [id number] [address] [place] [address], [place] [address] Dec, [facility] [address] [id number] [address] [place] [address], [place] [address] Dec, [facility] [address] [id number] [address] [place] [address], [place] [address] Nov, [facility] [address] [id number] [address] [place] [address], [place] [address] Nov, [facility] [address] [id number] [address] [place] [address], [place] [address] Nov, [facility] [address] [id number] [address] [place] [address], [place] [address] Nov, [facility] [address] [id number] [address] [place] [address], [place] [address] Nov, [facility] [address] [id number] [address] [place] [address], [place] [address] Nov, [facility] [address] [id number] [address] [place] [address], [place] [address] Nov, [facility] [address] [id number] [address] [place] [address], [place] [address] Nov, [facility] [address] [id number] [address] [place] [address], [place] [address] Oct, [facility] [address] [id number] [address] [place] [address], [place] [address] Oct, [facility] [address] [id number] [address] [place] [address], [place] [address] Oct, [facility] [address] [id number] [address] [place] [address], [place] [address] Oct, [facility] [address] [id number] [address] [place] [address], [place] [address] Oct, [facility] [address] [id number] [address] [place] [address], [place] [address] Oct, [facility] [address] [id number] [address] [place] [address], [place] [address] Sep, [facility] [address] [id number] [address] [place] [address], [place] [address] Sep, [facility] [address] [id number] [address] [place] [address], [place] [address] Sep, [facility] [address] [id number] [address] [place] [address], [place] [address] Sep, [facility] [address] [id number] [address] [place] [address], [place] [address] 05 Sep, 2013 [facility] [address] [id number] [address] [place] [address], [place] [address] Aug, [facility] [address] [id number] [address] [place] [address], [place] [address] Aug, [facility] [address] [id number] [address] [place] [address], [place] [address] Aug, [facility] [address] [id number] [address] [place] [address], [place] [address] Aug, [facility] [address] [id number] [address] [place] [address], [place] [address] Aug, [facility] [address] [id number] [address] [place] [address], [place] [address] Aug, [facility] [address] [id number] [address] [place] [address], [place] [address] Jul, [facility] [address] [id number] [address] [place] [address], [place] [address] Jul, [facility] [address] [id number] [address] [place] [address], [place] [address] Jul, [facility] [address] [id number] [address] [place] [address], [place] [address] Jun, [facility] [address] [id number] [address] [place] [address], [place] [address] Jun, [facility] [address] [id number] [address] [place] [address], [place] [address] May, [facility] [address] [id number] [address] [place] [address], [place] [address] May, [facility] [address] [id number] [address] [place] [address], [place] [address] Apr, [facility] [address] [id number] [address] [place] [address], [place] [address] Apr, [facility] [address] [id number] [address] [place] [address], [place] [address] Apr, [facility] [address] [id number] [address] [place] [address], [place] [address] March, [facility] [address] [id number] [address] [place] [address], [place] [address] Feb, [facility] [address] [id number] [address] [place] [address], [place] [address] Feb, [facility] [address] [id number] [address] [place] [address], [place] [address] Jan, [facility] [address] [id number] [address] [place] [address], [place] [address] Jan, [facility] [address] [id number] [address] [place] [address], [place] [address] Jan, [facility] [address] [id number] [address] [place] [address], [place] [address] Jan, [facility] [address] [id number] [address] [place] [address], [place] [address] Jan, [facility] [address] [id number] [address] [place] [address], [place] [address] Dec, [facility] [address] [id number] [address] [place] [address], [place] [address] Dec, [facility] [address] [id number] [address] [place] [address], [place] [address] Dec, [facility] [address] [id number] [address] [place] [address], [place] [address] Dec, [facility] [address] [id number] [address] [place] [address], [place] [address] Dec, [facility] [address] [id number] [address] [place] [address], [place] [address] Dec, [facility] [address] [place] [id number] Nov, [facility] [address] [id number] [address] [place] [address] [place] [address] 11 Nov, 2012 [facility] [address] [id number] [address] [place] [address], [place] [address] Nov, [facility] [address] [id number] [address] [place] [address], [place] [address] Nov, [facility] [address] [id number] [address] [place] [address], [place] [address] Nov, [facility] [address] [id number] [address] [place] [address], [place] [address] Oct, [facility] [address] [id number] [address] [place] [address], [place] [address] Oct, [facility] [address] [id number] [address] [place] [address], [place] [address] Oct, [facility] [address] [id number] [address] [place] [address], [place] [address] Oct, [facility] [address] [id number] [address] [place] [address], [place] [address] Oct, [facility] [address] [id number] [address] [place] [address], [place] [address] Oct, [facility] [address] [id number] [address] [place] [address], [place] [address] Oct, [facility] [address] [id number] [address] [place] [address], [place] [address] Oct, [facility] [address] [id number] [address] [place] [address], [place] [address] Sep, [facility] [address] [id number] [address] [place] [address], [place] [address] Sep, [facility] [address] [id number] [address] [place] [address], [place] [address] Sep, [facility] [address] [id number] [address] [place] [address], [place] [address] Sep, [facility] [address] [id number] [address] [place] [address] Sep, [facility] [address] [id number] [address] [place] [id number] Sep, [facility] [address] [id number] [address] [place] [address] Sep, [facility] [address] [id number] [address] [place] [address] Sep, [facility] [address] [id number] [address] [place] [address] Sep, [facility] [address] [id number] [address] [place] [address] Sep, [facility] [address] [id number] [address] [place] [address] Sep, [facility] [address] [id number] [address] [place] [id number] Sep, [facility] [address] [id number] [address] [place] [id number] Sep, [facility] [address] [id number] [address] [place] [address] Sep, [facility] [address] [id number] [address] [place] [id number] Sep, [facility] [address] [id number] [address] [place] [address] Sep, IMMUNIZATIONS No Known Immunizations SOCIAL HISTORY Never Assessed REASON FOR VISIT Controlled Refill Request PLAN OF CARE VITAL SIGNS MEDICATIONS Medication [...]
--- OUTSIDE RECORDS SUMMARY | 2020-04-17 21:48 | XMS REPORT ---
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 Operations Examiner Name Role Phone BISMARK PATIÑO CP Unavailable [...]
--- OUTSIDE RECORDS SUMMARY | 2020-04-17 21:48 | XMS REPORT ---
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 Name Role Phone BISMARK PATIÑO Unavailable PROBLEMS Type Condition ICD9-CM Code DSH98-LP Code Onset Dates Condition S tatus SNOMED Code Problem Mood disorder F39 Active 196251 05 Problem Type 1 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 Active 24212541 Problem Type 1 diabetes mellitus with hyperglycemia E10.65 Active 259083096650814 Problem Gastroparesis K31.84 Active 029903 006 Problem Hypertension, essential I10 Active 37547474 Problem 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 Active 52680500 Problem Type 1 diabetes mellitus with other diab etic neurological complication E10.49 Active [id number] ALLERGIES No Information ENCOUNTERS Encounter Location Date Diagnosis [facility] [address] [facility] [id number] [address] [place] [phone] March, [facility] [address] [facility] [id number] [address] [place] [address] Feb, [facility] [address] [facility] [id number] [address] [place] [address] Feb, Type 1 diabetes mellitus wit h other diabetic neurological complication E10.49 ; Tobacco abuse Z72.0 and Tobacco abuse counseling Z71.6 [facility] [address] [facility] [id number] [address] [place] [address] Jan, Type 1 diabetes mellitus wit h hyperglycemia E10.65 [facility] [address] [facility] [id number] [address] [place] [address] Jan, [facility] [address] [facility] [id number] [address] [place] [address] Dec, Tobacco abuse Z72.0 [facility] [address] [facility] [id number] [address] [place] [id number] 20 Dec, 2017 Type 1 diabetes mellitus wit h hyperglycemia E10.65 [facility] [address] [facility] [id number] [address] [place] [address] Dec, Type 1 diabetes mellitus wit h hyperglycemia E10.65 ; Tobacco abuse Z72.0 and Tobacco abuse counseling Z71.6 [facility] [address] [facility] [id number] [address] [place] [address] Nov, Type 1 diabetes mellitus wit h hyperglycemia E10.65 [facility] [address] [facility] [id number] [address] [place] [address] Oct, Type 1 diabetes mellitus wit h hyperglycemia E10.65 [facility] [address] [facility] [id number] [address] [place] [address] Oct, Type 1 diabetes mellitus wit h hyperglycemia E10.65 [facility] [address] [facility] [id number] [address] [place] [address] Sep, Type 1 diabetes mellitus wit h hyperglycemia E10.65 [facility] [address] [facility] [id number] [address] [place] [address] Aug, Type 1 diabetes mellitus wit h hyperglycemia E10.65 [facility] [address] [facility] [id number] [address] [place] [address] Aug, [facility] [address] [facility] [id number] [address] [place] [address] Aug, Type 1 diabetes mellitus wit h hyperglycemia E10.65 [facility] [address] [facility] [id number] [address] [place] [address] Aug, Encounter for immunization Z 23 [facility] [address] [facility] [id number] [address] [place] [address] Aug, Type 1 diabetes mellitus wit h hyperglycemia E10.65 [facility] [address] [facility] [id number] [address] [place] [address] Jul, Type 1 diabetes mellitus wit h hyperglycemia E10.65 [place] [address] [id number] [address] [place] [id number] Jul, Type 1 diabetes mellitus wit h hyperglycemia E10.65 [facility] [address] [id number] [address] [place] [address] May, Type 1 diabetes mellitus wit h hyperglycemia E10.65 [facility] [address] [id number] [address] [place] [address] May, [facility] [address] [id number] [address] [place] [id number] Apr, [facility] [address] [id number] [address] [place] [address] Apr, Type 1 diabetes mellitus wit h hyperglycemia E10.65 [facility] [address] [id number] [address] [place] [address] March, [facility] [address] [id number] [address] [place] [address] March, [facility] [address] [id number] [address] [place] [address] Jan, [facility] [address] [id number] [address] [place] [address] Jan, [facility] [address] [facility] [id number] [address] [place] [address] Jan, Type 1 diabetes mellitus wit h diabetic polyneuropathy E10.42 [facility] [address] [id number] [address] [place] [address] Jan, Type 1 diabetes mellitus wit h hyperglycemia E10.65 ; Excessive cerumen in both ear canals H61.23 and Controlled diabetes mellitus type 1 without complications E10.9 [facility] [address] [id number] [address] [place] [address] Dec, [facility] [address] [facility] [id number] [address] [place] [address] Dec, [facility] [address] [id number] [address] [place] [id number] Dec, [facility] [address] [id number] [address] [place] [address] Dec, [facility] [address] [id number] [address] [place] [address] Nov, [facility] [address] [id number] [address] [place] [address] Nov, [facility] [address] [id number] [address] [place] [address] Oct, Type 1 diabetes mellitus wit h hyperglycemia E10.65 [facility] [address] [id number] [address] [place] [address] Sep, [facility] [address] [id number] [address] [place] [address] Sep, [facility] [address] [id number] [address] [place] [address] Sep, Controlled diabetes mellitus type 1 without complications E10.9 [facility] [address] [id number] [address] [place] [address] Sep, [facility] [address] [id number] [address] [place] [id number] Aug, Dental caries K02.9 [facility] [address] [id number] [address] [place] [address] Aug, Type 1 diabetes mellitus wit h diabetic polyneuropathy E10.42 [facility] [address] [id number] [address] [place] [address] Aug, [facility] [address] [id number] [address] [place] [id number] Aug, [facility] [address] [id number] [address] [place] [address] Aug, [facility] [address] [id number] [address] [place] [address] Jul, Type 1 diabetes mellitus wit h hyperglycemia E10.65 [facility] [address] [id number] [address] [place] [address] Jul, Type 1 diabetes mellitus wit h hyperglycemia E10.65 ; Tooth pain K08.8 and Encounter for immunization Z23 [facility] [address] [id number] [address] [place] [address] [id number] Jul, 2016 Dental examination Z01.20 [facility] [address] [id number] [address] [place] [id number] 08 Jul, 2016 [facility] [address] [id number] [address] [place] [id number] 07 Jul, 2016 [facility] [address] [id number] [address] [place] [address] Jul, [facility] [address] [id number] [address] [place] [address] Jun, [facility] [address] [id number] [address] [place] [address] May, [facility] [address] [id number] [address] [place] [id number] Apr, [facility] [address] [id number] [address] [place] [address] Apr, [facility] [address] [id number] [address] [place] [id number] Apr, [facility] [address] [id number] [address] [place] [address] March, [facility] [address] [id number] [address] [place] [id number] March, [facility] [address] [id number] [address] [place] [id number] Feb, [facility] [address] [id number] [address] [place] [id number] Feb, [facility] [address] [facility] [id number] [address] [place] [address] Feb, Type 1 diabetes mellitus wit h hyperglycemia E10.65 [facility] [address] [facility] [id number] [address] [place] [address] Jan, [facility] [address] [facility] [id number] [address] [place] [id number] Jan, [facility] [address] [facility] [id number] [address] [place] [address] Jan, [facility] [address] [facility] [id number] [address] [place] [id number] Jan, [facility] [address] [facility] [id number] [address] [place] [address] Dec, [facility] [address] [facility] [id number] [address] [place] [id number] Nov, [facility] [address] [facility] [id number] [address] [place] [id number] Nov, [facility] [address] [facility] [id number] [address] [place] [id number] Oct, [facility] [address] [facility] [id number] [address] [place] [id number] 04 Oct, 2015 Type 1 diabetes mellitus wit h 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 ; Type 1 diabetes mellitus with hyperglycemia E10.65 ; Gastroparesis K31.84 and Esophageal stricture K22.2 [facility] [address] [facility] [id number] [address] [place] [id number] Oct, [facility] [address] [facility] [id number] [address] [place] [id number] Sep, [facility] [address] [facility] [id number] [address] [place] [id number] Sep, Type 1 diabetes mellitus wit h other diabetic neurological complication E10.49 [facility] [address] [facility] [id number] [address] [place] [id number] Aug, Encounter for immunization Z 23 [facility] [address] [id number] [address] [place] [id number] Aug, [facility] [address] [id number] [address] [place] [id number] Aug, [facility] [address] [id number] [address] [place] [phone] Jul, [facility] [address] [id number] [address] [place] [address] Jul, [facility] [address] [id number] [address] [place] [address] Jun, [facility] [address] [id number] [address] [place] [id number] Jun, [facility] [address] [id number] [address] [place] [id number] Jun, [facility] [address] [id number] [address] [place] [id number] May, [facility] [address] [id number] [address] [place] [address] May, [facility] [address] [id number] [address] [place] [address] May, Diabetes type 1, controlled 250.01 [facility] [address] [id number] [address] [place] [address] May, [facility] [address] [id number] [address] [place] [id number] May, [facility] [address] [id number] [address] [place] [address] [id number] Apr, Dental examination V72.2 [facility] [address] [id number] [address] [place] [id number] Apr, [facility] [address] [id number] [address] [place] [phone] Apr, [facility] [address] [id number] [address] [place] [id number] Apr, [facility] [address] [id number] [address] [place] [id number] Apr, [facility] [address] [id number] [address] [place] [id number] Apr, [facility] [address] [id number] [address] [place] [address] [id number] Apr, Dental examination V72.2 [facility] [address] [id number] [address] [place] [id number] Apr, [facility] [address] [id number] [address] [place] [id number] Apr, [facility] [address] [id number] [address] [place] [address] March, Diabetes mellitus type 1 250 .01 [facility] [address] [id number] [address] [place] [id number] March, [facility] [address] [id number] [address] [place] [phone] Feb, [facility] [address] [id number] [address] [place] [phone] Feb, [facility] [address] [id number] [address] [place] [id number] Jan, [facility] [address] [id number] [address] [place] [id number] Jan, [facility] [address] [id number] [address] [place] [id number] Jan, [facility] [address] [id number] [address] [place] [id number] Jan, [facility] [address] [id number] [address] [place] [address] Dec, [facility] [address] [id number] [address] [place] [address], [place] [address] Dec, [facility] [address] [id number] [address] [place] [address], [place] [address] Nov, [facility] [address] [id number] [address] [place] [address], [place] [address] Nov, [facility] [address] [id number] [address] [place] [address], [place] [address] Nov, [facility] [address] [id number] [address] [place] [address], [place] [address] Nov, [facility] [address] [id number] [address] [place] [address], [place] [address] Nov, [facility] [address] [id number] [address] [place] [address], [place] [id number] Nov, [facility] [address] [id number] [address] [place] [address], [place] [address] Nov, [facility] [address] [id number] [address] [place] [address], [place] [address] Oct, [facility] [address] [id number] [address] [place] [address], [place] [address] Oct, [facility] [address] [id number] [address] [place] [address], [place] [address] Sep, [facility] [address] [id number] [address] [place] [address], [place] [address] Aug, [facility] [address] [id number] [address] [place] [address], [place] [address] Aug, [facility] [address] [id number] [address] [place] [address], [place] [address] Aug, [facility] [address] [id number] [address] [place] [address], [place] [address] Aug, [facility] [address] [id number] [address] [place] [address], [place] [address] Aug, [facility] [address] [id number] [address] [place] [address], [place] [address] Aug, [facility] [address] [id number] [address] [place] [address], [place] [address] Aug, [facility] [address] [id number] [address] [place] [address], [place] [address] Aug, [facility] [address] [id number] [address] [place] [address], [place] [address] Aug, [facility] [address] [id number] [address] [place] [address], [place] [address] Aug, [facility] [address] [id number] [address] [place] [address], [place] [address] Aug, [facility] [address] [id number] [address] [place] [address], [place] [address] Aug, [facility] [address] [id number] [address] [place] [address], [place] [address] Aug, [facility] [address] [id number] [address] [place] [address], [place] [address] Aug, [facility] [address] [id number] [address] [place] [address], [place] [address] Jul, [facility] [address] [id number] [address] [place] [address], [place] [address] Jul, [facility] [address] [id number] [address] [place] [phone] Jul, [facility] [address] [id number] [address] [place] [address], [place] [address] Jul, [facility] [address] [id number] [address] [place] [address], [place] [address] Jun, [facility] [address] [id number] [address] [place] [address], [place] [address] Jun, [facility] [address] [id number] [facility] [place] [address] Jun, [facility] [address] [id number] [address] [place] [address], [place] [address] Jun, [facility] [address] [id number] [address] [place] [address], [place] [address] May, [facility] [address] [id number] [address] [place] [address], [place] [address] May, [facility] [address] [id number] [address] [place] [address], [place] [address] May, [facility] [address] [id number] [address] [place] [address], [place] [address] May, [facility] [address] [id number] [address] [place] [address], [place] [address] May, [facility] [address] [id number] [address] [place] [address], [place] [address] May, [facility] [address] [id number] [address] [place] [address], [place] [address] May, [facility] [address] [id number] [address] [place] [address], [place] [address] May, [facility] [address] [id number] [address] [place] [address], [place] [address] May, [facility] [address] [id number] [address] [place] [address], [place] [address] May, [facility] [address] [id number] [address] [place] [address], [place] [address] May, [facility] [address] [id number] [address] [place] [address], [place] [address] May, [facility] [address] [id number] [address] [place] [address], [place] [address] May, [facility] [address] [id number] [address] [place] [address], [place] [address] Apr, [facility] [address] [id number] [facility] [place] [address] Apr, [facility] [address] [id number] [facility] [place] [address] Apr, [facility] [address] [id number] [facility] [place] [address] Apr, [facility] [address] [id number] [address] [place] [address], [place] [address] Apr, [facility] [address] [id number] [address] [place] [address], [place] [address] Apr, [facility] [address] [id number] [address] [place] [address], [place] [address] Apr, [facility] [address] [id number] [address] [place] [address], [place] [address] Apr, [facility] [address] [id number] [address] [place] [address], [place] [address] Apr, [facility] [address] [id number] [address] [place] [address], [place] [address] Apr, [facility] [address] [id number] [address] [place] [address], [place] [address] Apr, [facility] [address] [id number] [address] [place] [address], [place] [id number] Apr, [facility] [address] [id number] [address] [place] [address], [place] [address] Apr, [facility] [address] [id number] [address] [place] [address], [place] [address] Apr, [facility] [address] [id number] [address] [place] [address], [place] [address] March, [facility] [address] [id number] [address] [place] [address], [place] [id number] March, [facility] [address] [id number] [address] [place] [address], [place] [address] March, [facility] [address] [id number] [address] [place] [address], [place] [address] March, [facility] [address] [id number] [address] [place] [address], [place] [address] March, [facility] [address] [id number] [address] [place] [address], [place] [address] March, [facility] [address] [id number] [address] [place] [address], [place] [id number] March, [facility] [address] [id number] [address] [place] [address], [place] [address] March, [facility] [address] [id number] [address] [place] [address], [place] [address] March, [facility] [address] [id number] [address] [place] [address], [place] [id number] March, [facility] [address] [id number] [address] [place] [address], [place] [id number] Feb, [facility] [address] [id number] [address] [place] [address], [place] [address] Feb, [facility] [address] [id number] [address] [place] [address], [place] [id number] Feb, [facility] [address] [id number] [address] [place] [address], [place] [id number] Feb, [facility] [address] [id number] [address] [place] [address], [place] [address] Feb, [facility] [address] [id number] [address] [place] [address], [place] [address] Feb, [facility] [address] [id number] [address] [place] [address], [place] [id number] Feb, [facility] [address] [id number] [address] [place] [address], [place] [id number] Feb, [facility] [address] [id number] [address] [place] [id number] 18 Jan, 2014 [facility] [address] [id number] [facility] [place] [address] Jan, [facility] [address] [id number] [facility] [place] [id number] Jan, [facility] [address] [address] [id number] [facility] [place] [address] Jan, [facility] [address] [id number] [address] [place] [address], [place] [address] Jan, [facility] [address] [id number] [address] [place] [address], [place] [address] Jan, [facility] [address] [id number] [address] [place] [address], [place] [address] Jan, [facility] [address] [id number] [address] [place] [address], [place] [address] Jan, [facility] [address] [id number] [address] [place] [address], [place] [address] Jan, [facility] [address] [id number] [address] [place] [address], [place] [address] Jan, [facility] [address] [id number] [address] [place] [address], [place] [address] Dec, [facility] [address] [id number] [address] [place] [address], [place] [address] Dec, [facility] [address] [id number] [address] [place] [address], [place] [address] Nov, [facility] [address] [id number] [address] [place] [address], [place] [address] Nov, [facility] [address] [id number] [address] [place] [address], [place] [address] Nov, [facility] [address] [id number] [address] [place] [address], [place] [address] Nov, [facility] [address] [id number] [address] [place] [address], [place] [address] Nov, [facility] [address] [id number] [address] [place] [address], [place] [address] Nov, [facility] [address] [id number] [address] [place] [address], [place] [address] Nov, [facility] [address] [id number] [address] [place] [address], [place] [address] Nov, [facility] [address] [id number] [address] [place] [address], [place] [address] Oct, [facility] [address] [id number] [address] [place] [address], [place] [address] Oct, [facility] [address] [id number] [address] [place] [address], [place] [address] Oct, [facility] [address] [id number] [address] [place] [address], [place] [address] Oct, [facility] [address] [id number] [address] [place] [address], [place] [address] Oct, [facility] [address] [id number] [address] [place] [address], [place] [address] Oct, [facility] [address] [id number] [address] [place] [address], [place] [address] Sep, [facility] [address] [id number] [address] [place] [address], [place] [address] Sep, [facility] [address] [id number] [address] [place] [address], [place] [address] Sep, [facility] [address] [id number] [address] [place] [address], [place] [address] Sep, [facility] [address] [id number] [address] [place] [address], [place] [address] 05 Sep, 2013 [facility] [address] [id number] [address] [place] [address], [place] [address] Aug, [facility] [address] [id number] [address] [place] [address], [place] [address] Aug, [facility] [address] [id number] [address] [place] [address], [place] [address] Aug, [facility] [address] [id number] [address] [place] [address], [place] [address] Aug, [facility] [address] [id number] [address] [place] [address], [place] [address] Aug, [facility] [address] [id number] [address] [place] [address], [place] [address] Aug, [facility] [address] [id number] [address] [place] [address], [place] [address] Jul, [facility] [address] [id number] [address] [place] [address], [place] [address] Jul, [facility] [address] [id number] [address] [place] [address], [place] [address] Jul, [facility] [address] [id number] [address] [place] [address], [place] [address] Jun, [facility] [address] [id number] [address] [place] [address], [place] [address] Jun, [facility] [address] [id number] [address] [place] [address], [place] [address] May, [facility] [address] [id number] [address] [place] [address], [place] [address] May, [facility] [address] [id number] [address] [place] [address], [place] [address] Apr, [facility] [address] [id number] [address] [place] [address], [place] [address] Apr, [facility] [address] [id number] [address] [place] [address], [place] [address] Apr, [facility] [address] [id number] [address] [place] [address], [place] [address] March, [facility] [address] [id number] [address] [place] [address], [place] [address] Feb, [facility] [address] [id number] [address] [place] [address], [place] [address] Feb, [facility] [address] [id number] [address] [place] [address], [place] [address] Jan, [facility] [address] [id number] [address] [place] [address], [place] [address] Jan, [facility] [address] [id number] [address] [place] [address], [place] [address] Jan, [facility] [address] [id number] [address] [place] [address], [place] [address] Jan, [facility] [address] [id number] [address] [place] [address], [place] [address] Jan, [facility] [address] [id number] [address] [place] [address], [place] [address] Dec, [facility] [address] [id number] [address] [place] [address], [place] [address] Dec, [facility] [address] [id number] [address] [place] [address], [place] [address] Dec, [facility] [address] [id number] [address] [place] [address], [place] [address] Dec, [facility] [address] [id number] [address] [place] [address], [place] [address] Dec, [facility] [address] [id number] [address] [place] [address], [place] [address] Dec, [facility] [address] [place] [id number] Nov, [facility] [address] [id number] [address] [place] [address] [place] [address] 11 Nov, 2012 [facility] [address] [id number] [address] [place] [address], [place] [address] Nov, [facility] [address] [id number] [address] [place] [address], [place] [address] Nov, [facility] [address] [id number] [address] [place] [address], [place] [address] Nov, [facility] [address] [id number] [address] [place] [address], [place] [address] Oct, [facility] [address] [id number] [address] [place] [address], [place] [address] Oct, [facility] [address] [id number] [address] [place] [address], [place] [address] Oct, [facility] [address] [id number] [address] [place] [address], [place] [address] Oct, [facility] [address] [id number] [address] [place] [address], [place] [address] Oct, [facility] [address] [id number] [address] [place] [address], [place] [address] Oct, [facility] [address] [id number] [address] [place] [address], [place] [address] Oct, [facility] [address] [id number] [address] [place] [address], [place] [address] Oct, [facility] [address] [id number] [address] [place] [address], [place] [address] Sep, [facility] [address] [id number] [address] [place] [address], [place] [address] Sep, [facility] [address] [id number] [address] [place] [address], [place] [address] Sep, [facility] [address] [id number] [address] [place] [address], [place] [address] Sep, [facility] [address] [id number] [address] [place] [id number] 14 Sep, 2012 [facility] [address] [id number] [address] [place] [address] 14 Sep, 2012 [facility] [address] [id number] [address] [place] [address] Sep, [facility] [address] [id number] [address] [place] [address] Sep, [facility] [address] [id number] [address] [place] [address] Sep, [facility] [address] [id number] [address] [place] [address] Sep, [facility] [address] [id number] [address] [place] [address] Sep, [facility] [address] [id number] [address] [place] [address] Sep, [facility] [address] [id number] [address] [place] [address] Sep, [facility] [address] [id number] [address] [place] [address] Sep, [facility] [address] [id number] [address] [place] [address] Sep, [facility] [address] [id number] [address] [place] [id number] Sep, IMMUNIZATIONS Vaccine Route Administration Date Status FLUARIX QUAD (3 AND UP) 2017 IM Intramuscular Sep 01, 2017 Ad ministered SOCIAL HISTORY Never Assessed REASON FOR VISIT Flu shot jjoSebastián PLAN OF CARE VITAL SIGNS MEDICATIONS Unknown Medications RESULTS No Results PROCEDURES Procedure Date Ordered Result Body Site FLUARIX QUAD (3 & UP)-GSK-2014Sep 01, 2017 SINGLE IMMUNIZATION ADMIN Sep 01, 2017 INSTRUCTIONS MEDICATIONS ADMINISTERED No Known Medications MEDICAL (GENERAL) HISTORY Type Description Date Medical History hypertension Medical History type I diabetes Medical History chronic renal insufficiency Surgical History gastric pacemaker 2008 Hospitalization History nausea 2011
--- OUTSIDE RECORDS SUMMARY | 2020-04-17 21:48 | XMS REPORT ---
Author Author Curt PATIÑO Organization [facility] Address [address] [place] [address] Care Team Providers Care Assembly Line Worker Name Role Phone BISMARK PATIÑO Unavailable PROBLEMS Type Condition ICD9-CM Code ASF02-GY Code Onset Dates Condition S tatus SNOMED Code Problem Mood disorder F39 Active 996424 05 Problem Type 1 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 Active 83336404 Problem Type 1 diabetes mellitus with hyperglycemia E10.65 Active 380585353517516 Problem Gastroparesis K31.84 Active 944047 006 Problem Hypertension, essential I10 Active 53498867 Problem 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 Active 40542750 Problem Type 1 diabetes mellitus with other diab etic neurological complication E10.49 Active 07509427 ALLERGIES No Information SOCIAL HISTORY Never Assessed PLAN OF CARE VITAL SIGNS MEDICATIONS No Known Medications RESULTS No Results PROCEDURES No Known procedures IMMUNIZATIONS No Known Immunizations MEDICAL (GENERAL) HISTORY Type Description Date Medical History hypertension Medical History type I diabetes Medical History chronic renal insufficiency Surgical History gastric pacemaker 2008 Hospitalization History nausea 2011
--- OUTSIDE RECORDS SUMMARY | 2020-04-17 21:48 | XMS REPORT ---
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 Nursing Professor Name Role Phone BISMARK PATIÑO CP Unavailable [...] Start Date End Date Status Dosage NovoLog [facility] [id number] 100 UNIT/ML INJECT 10 UNITS SUBCUTANEOUSLY THREE TIMES DAILY PER INSULIN PUMP Results No Known Results Summary Purpose [employer] Submission
--- OUTSIDE RECORDS SUMMARY | 2020-04-17 21:49 | XMS REPORT ---
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 Form Builder Helper Name Role Phone BISMARK PATIÑO CP Unavailable [...] Start Date End Date Status Dosage Diazepam [facility] [address]-20 10 mg Orally 3 times a day 1 tablet Results No Known Results Summary Purpose [employer] Submission
--- OUTSIDE RECORDS SUMMARY | 2020-04-17 21:49 | XMS REPORT ---
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 Supervisor Cigar Making Machine Name Role Phone BISMARK PATIÑO CP Unavailable Allergies No Known Allergies Problems Problem Type Condition Code Onset Dates Condition Statu s Problem Type 1 diabetes mellitus with other diab etic neurological complication E10.49 Active Problem Gastroparesis K31.84 Active Problem Type 1 diabetes mellitus with diabetic a utonomic (poly)neuropathy E10.43 Active Problem Hypertension, essential I10 Acti ve Problem Mood disorder F39 Active Medications No Known Medications Results No Known Results Summary Purpose [employer] Submission
--- OUTSIDE RECORDS SUMMARY | 2020-04-17 21:49 | XMS REPORT ---
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 Sign Writer Letterer Or Painter Name Role Phone BISMARK PATIÑO CP Unavailable [...]
--- OUTSIDE RECORDS SUMMARY | 2020-04-17 21:49 | XMS REPORT ---
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 Active 70595944 Problem Type 1 diabetes mellitus with hyperglycemia E10.65 Active [id number] Problem Gastroparesis K31.84 Active 481883 006 Problem Hypertension, essential I10 Active 92862169 Problem 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 Active 54119758 Problem Type 1 diabetes mellitus with other diab etic neurological complication E10.49 Active 30876805 ALLERGIES No Information ENCOUNTERS Encounter Location Date Diagnosis [place] [address] [address] Jan, Type 1 diabetes mellitus wit h hyperglycemia E10.65 [place] [address] [address] Jan, [place] [address] [address] Dec, Tobacco abuse Z72.0 [place] [address] [address] Dec, Type 1 diabetes mellitus wit h hyperglycemia E10.65 [place] [address] [address] 16 Dec, 2017 Type 1 diabetes mellitus wit h hyperglycemia E10.65 ; Tobacco abuse Z72.0 and Tobacco abuse counseling Z71.6 [place] [address] [address] Nov, Type 1 diabetes mellitus wit h hyperglycemia E10.65 [facility] [address] [id number] [address] [place] [address] Oct, Type 1 diabetes mellitus wit h hyperglycemia E10.65 [facility] [address] [id number] [address] [place] [address] Oct, Type 1 diabetes mellitus wit h hyperglycemia E10.65 [facility] [address] [address] [facility] [id number] [address] [place] [address] Sep, Type 1 diabetes mellitus wit h hyperglycemia E10.65 [facility] [address] [id number] [address] [place] [address] Aug, Type 1 diabetes mellitus wit h hyperglycemia E10.65 [facility] [address] [facility] [id number] [address] [place] [address] Aug, [facility] [address] [facility] [id number] [address] [place] [address] Aug, Type 1 diabetes mellitus wit h hyperglycemia E10.65 [facility] [address] [facility] [id number] [address] [place] [address] Aug, Encounter for immunization Z 23 [facility] [address] [facility] [id number] [address] [place] [address] Aug, Type 1 diabetes mellitus wit h hyperglycemia E10.65 [facility] [address] [facility] [id number] [address] [place] [address] Jul, Type 1 diabetes mellitus wit h hyperglycemia E10.65 [facility] [address] [id number] [address] [place] [address] Jul, Type 1 diabetes mellitus wit h hyperglycemia E10.65 [facility] [address] [facility] [id number] [address] [place] [address] May, Type 1 diabetes mellitus wit h hyperglycemia E10.65 [facility] [address] [facility] [id number] [address] [place] [address] May, [facility] [address] [facility] [id number] [address] [place] [address] Apr, [facility] [address] [id number] [address] [place] [address] Apr, Type 1 diabetes mellitus wit h hyperglycemia E10.65 [facility] [address] [facility] [id number] [address] [place] [address] March, [facility] [address] [facility] [id number] [address] [place] [address] March, [facility] [address] [id number] [address] [place] [address] Jan, [facility] [address] [facility] [id number] [address] [place] [address] Jan, [facility] [address] [facility] [id number] [address] [place] [address] Jan, Type 1 diabetes mellitus wit h diabetic polyneuropathy E10.42 [facility] [address] [id number] [address] [place] [address] Jan, Type 1 diabetes mellitus wit h hyperglycemia E10.65 ; Excessive cerumen in both ear canals H61.23 and Controlled diabetes mellitus type 1 without complications E10.9 [facility] [address] [facility] [id number] [address] [place] [address] Dec, [facility] [address] [facility] [id number] [address] [place] [address] Dec, [facility] [address] [facility] [id number] [address] [place] [address] Dec, [facility] [address] [facility] [id number] [address] [place] [address] Dec, [facility] [address] [facility] [id number] [address] [place] [address] Nov, [facility] [address] [facility] [id number] [address] [place] [address] Nov, [facility] [address] [id number] [address] [place] [address] Oct, Type 1 diabetes mellitus wit h hyperglycemia E10.65 [facility] [address] [id number] [address] [place] [address] Sep, [facility] [address] [facility] [id number] [address] [place] [address] Sep, [facility] [address] [id number] [address] [place] [address] Sep, Controlled diabetes mellitus type 1 without complications E10.9 [facility] [address] [id number] [address] [place] [address] Sep, [facility] [address] [id number] [address] [place] [id number] Aug, Dental caries K02.9 [facility] [address] [id number] [address] [place] [address] Aug, Type 1 diabetes mellitus wit h diabetic polyneuropathy E10.42 [facility] [address] [id number] [address] [place] [address] Aug, [facility] [address] [facility] [id number] [address] [place] [address] Aug, [facility] [address] [id number] [address] [place] [address] Aug, [facility] [address] [id number] [address] [place] [address] Jul, Type 1 diabetes mellitus wit h hyperglycemia E10.65 [facility] [address] [id number] [address] [place] [address] Jul, Type 1 diabetes mellitus wit h hyperglycemia E10.65 ; Tooth pain K08.8 and Encounter for immunization Z23 [facility] [address] [id number] [address] [place] [id number] Jul, 2016 Dental examination Z01.20 [facility] [address] [id number] [address] [place] [address], [place] [address] [address], [address] [facility] [address] [id number] [address] [place] [address], [place] [address] [address], [address] [facility] [address] [id number] [address] [place] [address], [place] [address] Jul, [facility] [address] [id number] [address] [place] [address], [place] [address] Jun, [facility] [address] [id number] [address] [place] [address], [place] [address] May, [facility] [address] [id number] [address] [place] [address], [place] [address] Apr, [facility] [address] [id number] [address] [place] [address], [place] [address] Apr, [facility] [address] [id number] [address] [place] [address], [place] [address] Apr, [facility] [address] [id number] [address] [place] [address], [place] [address] March, [facility] [address] [id number] [address] [place] [address], [place] [address] March, [facility] [address] [id number] [address] [place] [address], [place] [address] Feb, [facility] [address] [id number] [address] [place] [address], [place] [address] Feb, [facility] [address] [id number] [address] [place] [address], [place] [address] Feb, Type 1 diabetes mellitus wit h hyperglycemia E10.65 [facility] [address] [id number] [address] [place] [address], [place] [address] Jan, [facility] [address] [id number] [address] [place] [address] Jan, [facility] [address] [id number] [address] [place] [address] 08 Jan, 2016 [facility] [address] [address] [facility] [id number] [address] [place] [address] Jan, [facility] [address] [facility] [id number] [address] [place] [address] Dec, [facility] [address] [facility] [id number] [address] [place] [address] Nov, [facility] [address] [facility] [id number] [address] [place] [address] Nov, [facility] [address] [facility] [id number] [address] [place] [address] Oct, [facility] [address] [place] [id number] [place] [address] 04 Oct, 2015 Type 1 diabetes mellitus wit h 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 ; Type 1 diabetes mellitus with hyperglycemia E10.65 ; Gastroparesis K31.84 and Esophageal stricture K22.2 [facility] [address] [facility] [id number] [address] [place] [address] Oct, [facility] [address] [facility] [id number] [place] [address] Sep, [facility] [address] [facility] [id number] [place] [address] Sep, Type 1 diabetes mellitus wit h other diabetic neurological complication E10.49 [facility] [address] [facility] [id number] [address] [place] [address] Aug, Encounter for immunization Z 23 [facility] [address] [facility] [id number] [address] [place] [address] Aug, [facility] [address] [place] [id number] [address] [place] [address] Aug, [facility] [address] [facility] [id number] [address] [place] [address] Jul, [facility] [address] [id number] [address] [place] [address] Jul, [facility] [address] [id number] [address] [place] [address] Jun, [facility] [address] [id number] [address] [place] [address] Jun, [facility] [address] [id number] [address] [place] [address] Jun, [facility] [address] [id number] [address] [place] [address] May, [facility] [address] [id number] [address] [place] [address] May, [facility] [address] [id number] [address] [place] [address] May, Diabetes type 1, controlled 250.01 [facility] [address] [id number] [address] [place] [address] May, [facility] [address] [id number] [address] [place] [address] May, [facility] [address] [id number] [address] [place] [id number] Apr, Dental examination V72.2 [facility] [address] [id number] [address] [place] [address] Apr, [facility] [address] [id number] [address] [place] [address] Apr, [facility] [address] [id number] [address] [place] [address] Apr, [facility] [address] [id number] [address] [place] [address] Apr, [facility] [address] [id number] [address] [place] [address] Apr, [facility] [address] [id number] [address] [place] [id number] Apr, Dental examination V72.2 [facility] [address] [id number] [address] [place] [address] Apr, [facility] [address] [id number] [address] [place] [address] Apr, [facility] [address] [id number] [address] [place] [address] March, Diabetes mellitus type [address] [facility] [address] [id number] [address] [place] [address] March, [facility] [address] [id number] [address] [place] [address] Feb, [facility] [address] [id number] [address] [place] [address] Feb, [facility] [address] [id number] [address] [place] [address] Jan, [facility] [address] [id number] [address] [place] [address] Jan, [facility] [address] [id number] [address] [place] [address] Jan, [facility] [address] [id number] [address] [place] [address] Jan, [facility] [address] [id number] [address] [place] [address] Dec, [facility] [address] [id number] [address] [place] [address] Dec, [facility] [address] [id number] [address] [place] [address] Nov, [facility] [address] [id number] [address] [place] [phone] Nov, [facility] [address] [id number] [address] [place] [address] Nov, [facility] [address] [id number] [address] [place] [address], [place] [address] Nov, [facility] [address] [id number] [address] [place] [address], [place] [address] Nov, [facility] [address] [id number] [address] [place] [address], [place] [address] Nov, [facility] [address] [id number] [address] [place] [address], [place] [address] Nov, [facility] [address] [id number] [address] [place] [address], [place] [address] Oct, [facility] [address] [id number] [address] [place] [address], [place] [address] Oct, [facility] [address] [id number] [address] [place] [address], [place] [address] Sep, [facility] [address] [id number] [address] [place] [address], [place] [address] Aug, [facility] [address] [id number] [address] [place] [address], [place] [address] Aug, [facility] [address] [id number] [address] [place] [address], [place] [address] Aug, [facility] [address] [id number] [address] [place] [address], [place] [address] Aug, [facility] [address] [id number] [address] [place] [address] Aug, [facility] [address] [id number] [address] [place] [address], [place] [address] Aug, [facility] [address] [id number] [address] [place] [address], [place] [address] Aug, [facility] [address] [id number] [address] [place] [address], [place] [address] Aug, [facility] [address] [id number] [address] [place] [address], [place] [address] Aug, [facility] [address] [id number] [address] [place] [address], [place] [address] Aug, [facility] [address] [id number] [address] [place] [address], [place] [address] Aug, [facility] [address] [id number] [address] [place] [address], [place] [address] Aug, [facility] [address] [id number] [address] [place] [address], [place] [address] Aug, [facility] [address] [id number] [address] [place] [address], [place] [address] Aug, [facility] [address] [id number] [address] [place] [address], [place] [address] Jul, [facility] [address] [id number] [address] [place] [address], [place] [address] Jul, [facility] [address] [id number] [address] [place] [address], [place] [address] Jul, [facility] [address] [id number] [address] [place] [address], [place] [address] Jul, [facility] [address] [id number] [address] [place] [address], [place] [address] Jun, [facility] [address] [id number] [address] [place] [address], [place] [address] Jun, [facility] [address] [id number] [address] [place] [address], [place] [address] Jun, [facility] [address] [id number] [address] [place] [address], [place] [address] Jun, [facility] [address] [id number] [address] [place] [address], [place] [address] May, [facility] [address] [id number] [address] [place] [address], [place] [address] May, [facility] [address] [id number] [address] [place] [address] May, 2013 [facility] [address] [id number] [address] [place] [address] May, 2013 [facility] [address] [id number] [address] [place] [address] May, 2013 [facility] [address] [id number] [address] [place] [address] May, 2013 [facility] [address] [id number] [address] [place] [address] May, 2013 [facility] [address] [id number] [address] [place] [address], [place] [address] May, [facility] [address] [id number] [address] [place] [address], [place] [address] May, 2013 [facility] [address] [id number] [address] [place] [address], [place] [address] May, [facility] [address] [id number] [address] [place] [address], [place] [address] May, [facility] [address] [id number] [address] [place] [address], [place] [address] May, [facility] [address] [id number] [address] [place] [address], [place] [address] May, [facility] [address] [id number] [address] [place] [address], [place] [address] Apr, [facility] [address] [id number] [address] [place] [address], [place] [address] Apr, [facility] [address] [id number] [address] [place] [address], [place] [address] Apr, [facility] [address] [id number] [address] [place] [address], [place] [address] Apr, [facility] [address] [id number] [address] [place] [address], [place] [address] Apr, [facility] [address] [id number] [address] [place] [address] Apr, [facility] [address] [id number] [address] [place] [address], [place] [address] Apr, [facility] [address] [id number] [address] [place] [address], [place] [address] Apr, [facility] [address] [id number] [address] [place] [address], [place] [address] Apr, [facility] [address] [id number] [address] [place] [address], [place] [address] Apr, [facility] [address] [id number] [address] [place] [address], [place] [address] Apr, [facility] [address] [id number] [address] [place] [address], [place] [address] Apr, [facility] [address] [id number] [address] [place] [address], [place] [address] Apr, [facility] [address] [id number] [address] [place] [address], [place] [address] Apr, [facility] [address] [id number] [address] [place] [address], [place] [address] March, [facility] [address] [id number] [address] [place] [address], [place] [address] March, [facility] [address] [id number] [address] [place] [address], [place] [address] March, [facility] [address] [id number] [address] [place] [address], [place] [address] March, [facility] [address] [id number] [address] [place] [address], [place] [address] March, [facility] [address] [id number] [address] [place] [address], [place] [address] March, [facility] [address] [id number] [address] [place] [address] March, [facility] [address] [id number] [address] [place] [address], [place] [address] March, [facility] [address] [id number] [address] [place] [address], [place] [address] March, [facility] [address] [id number] [address] [place] [address], [place] [address] March, [facility] [address] [id number] [address] [place] [address], [place] [address] Feb, [facility] [address] [id number] [address] [place] [address], [place] [address] Feb, [facility] [address] [id number] [address] [place] [address], [place] [address] Feb, [facility] [address] [id number] [address] [place] [address], [place] [address] Feb, [facility] [address] [id number] [address] [place] [address], [place] [address] Feb, [facility] [address] [id number] [address] [place] [address], [place] [address] Feb, [facility] [address] [id number] [address] [place] [address], [place] [address] Feb, [facility] [address] [id number] [address] [place] [address], [place] [address] Feb, [facility] [address] [id number] [address] [place] [address], [place] [address] Jan, [facility] [address] [id number] [address] [place] [address], [place] [address] Jan, [facility] [address] [id number] [address] [place] [address], [place] [address] Jan, [facility] [address] [id number] [address] [place] [address], [place] [address] Jan, [facility] [address] [id number] [address] [place] [address], [place] [address] Jan, [facility] [address] [id number] [address] [place] [address], [place] [address] Jan, [facility] [address] [id number] [address] [place] [address], [place] [address] Jan, [facility] [address] [id number] [address] [place] [address], [place] [address] Jan, [facility] [address] [id number] [address] [place] [address], [place] [address] Jan, [facility] [address] [id number] [address] [place] [address], [place] [address] Jan, [facility] [address] [id number] [address] [place] [address], [place] [address] Dec, [facility] [address] [id number] [address] [place] [address], [place] [address] Dec, [facility] [address] [id number] [address] [place] [address], [place] [address] Nov, [facility] [address] [id number] [address] [place] [address], [place] [address] Nov, [facility] [address] [id number] [address] [place] [address], [place] [address] Nov, [facility] [address] [id number] [address] [place] [address], [place] [address] Nov, [facility] [address] [id number] [address] [place] [address], [place] [address] Nov, [facility] [address] [id number] [address] [place] [address], [place] [address] Nov, [facility] [address] [id number] [address] [place] [address], [place] [address] Nov, [facility] [address] [id number] [address] [place] [address] Nov, [facility] [address] [id number] [address] [place] [address], [place] [address] Oct, [facility] [address] [id number] [address] [place] [address] Oct, [facility] [address] [id number] [address] [place] [address], [place] [address] Oct, [facility] [address] [id number] [address] [place] [address], [place] [address] Oct, [facility] [address] [id number] [address] [place] [address], [place] [address] Oct, [facility] [address] [id number] [address] [place] [address], [place] [address] Oct, [facility] [address] [id number] [address] [place] [address] Sep, [facility] [address] [id number] [address] [place] [address], [place] [address] Sep, [facility] [address] [id number] [address] [place] [address], [place] [address] Sep, [facility] [address] [id number] [address] [place] [address] Sep, [facility] [address] [id number] [address] [place] [address] Sep, [facility] [address] [id number] [address] [place] [address] Aug, [facility] [address] [id number] [address] [place] [address] Aug, [facility] [address] [id number] [address] [place] [address] Aug, [facility] [address] [id number] [address] [place] [address] Aug, [facility] [address] [id number] [address] [place] [address], [place] [address] Aug, [facility] [address] [id number] [address] [place] [address], [place] [address] Aug, [facility] [address] [id number] [address] [place] [address], [place] [address] Jul, [facility] [address] [id number] [address] [place] [address], [place] [address] Jul, [facility] [address] [id number] [address] [place] [address], [place] [address] Jul, [facility] [address] [id number] [address] [place] [address], [place] [address] Jun, [facility] [address] [id number] [address] [place] [address], [place] [address] Jun, [facility] [address] [id number] [address] [place] [address], [place] [address] May, [facility] [address] [id number] [address] [place] [address], [place] [address] May, [facility] [address] [id number] [address] [place] [address], [place] [address] Apr, [facility] [address] [id number] [address] [place] [address], [place] [address] Apr, [facility] [address] [id number] [address] [place] [address], [place] [address] Apr, [facility] [address] [id number] [address] [place] [address], [place] [address] March, [facility] [address] [id number] [address] [place] [address], [place] [address] Feb, [facility] [address] [id number] [address] [place] [address], [place] [address] Feb, [facility] [address] [id number] [address] [place] [address], [place] [address] Jan, [facility] [address] [id number] [address] [place] [address] Jan, [facility] [address] [id number] [address] [place] [address] Jan, [facility] [address] [id number] [address] [place] [address], [place] [address] Jan, [facility] [address] [id number] [address] [place] [address], [place] [address] Jan, [facility] [address] [id number] [address] [place] [address] Dec, [facility] [address] [id number] [address] [place] [address], [place] [address] Dec, [facility] [address] [id number] [address] [place] [address], [place] [address] 18 Dec, 2012 [facility] [address] [id number] [address] [place] [address], [place] [address] Dec, [facility] [address] [id number] [address] [place] [address], [place] [address] 05 Dec, 2012 [facility] [address] [id number] [address] [place] [address], [place] [address] 05 Dec, 2012 [facility] [address] [place] [id number] Nov, [facility] [address] [id number] [address] [place] [address], [place] [address] Nov, [facility] [address] [id number] [address] [place] [address], [place] [address] Nov, [facility] [address] [id number] [address] [place] [address], [place] [address] Nov, [facility] [address] [id number] [address] [place] [address], [place] [address] Nov, [facility] [address] [id number] [address] [place] [address] 27 Oct, 2012 [facility] [address] [id number] [address] [place] [address], [place] [address] Oct, [facility] [address] [id number] [address] [place] [address], [place] [address] Oct, [facility] [address] [id number] [address] [place] [address], [place] [address] Oct, [facility] [address] [id number] [address] [place] [address], [place] [address] Oct, [facility] [address] [id number] [address] [place] [address], [place] [address] Oct, [facility] [address] [id number] [address] [place] [address], [place] [address] Oct, [facility] [address] [id number] [address] [place] [address], [place] [address] Oct, [facility] [address] [id number] [address] [place] [address], [place] [address] Sep, [facility] [address] [id number] [address] [place] [address], [place] [address] Sep, [facility] [address] [id number] [address] [place] [address], [place] [address] Sep, [facility] [address] [id number] [address] [place] [address], [place] [address] Sep, [facility] [address] [id number] [address] [place] [address], [place] [address] Sep, [facility] [address] [id number] [address] [place] [address], [place] [address] Sep, [facility] [address] [id number] [address] [place] [address], [place] [address] Sep, [facility] [address] [id number] [address] [place] [address], [place] [address] Sep, [facility] [address] [id number] [address] [place] [address] Sep, [facility] [address] [id number] [address] [place] [address] Sep, [facility] [address] [facility] [id number] [address] [place] [address] Sep, [facility] [address] [facility] [address] [facility] [id number] [address] [place] [address] Sep, [facility] [address] [facility] [address] [facility] [id number] [address] [place] [address] Sep, [facility] [address] [facility] [address] [facility] [id number] [address] [place] [address] Sep, [facility] [address] [facility] [address] [facility] [id number] [address] [place] [address] Sep, [facility] [address] [facility] [address] [facility] [id number] [address] [place] [address] Sep, IMMUNIZATIONS No Known Immunizations SOCIAL HISTORY Never Assessed REASON FOR VISIT upload with no changes PLAN OF CARE VITAL SIGNS MEDICATIONS Unknown Medications RESULTS No Results PROCEDURES No Known procedures INSTRUCTIONS MEDICATIONS ADMINISTERED No Known Medications MEDICAL (GENERAL) HISTORY Type Description Date Medical History hypertension Medical History type I diabetes Medical History chronic renal insufficiency Surgical History gastric pacemaker 2008 Hospitalization History nausea 2011
--- OUTSIDE RECORDS SUMMARY | 2020-04-17 21:49 | XMS REPORT ---
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 DIAG. 250.50 Genaro Contour Test [facility] 0 N/A 4 times a day Aug 13, 2016 test blood sugar [place] [facility] [address]-41 5-325 MG Orally every 6 hrs Aug 13, 2016 1 tablet as needed Enalapril Maleate [facility] 67373925034 10 MG TA KE ONE TABLET BY MOUTH ONCE DAILY Genaro Contour Next Test [facility] [id number] TEST BLOOD FOUR TIMES A DAY. DIAG. 250.50 Procedures Procedure Coding System Code Date Office Visit, Est Pt., Level 3 CPT-[address] 2015 [facility] VISIT ESTABLISHED PATIENT CPT-[address] Vital Signs Date/Time: Aug 30, 2016 Cardiac Monitoring Heart Rate 76 bpm Weight 160.3 lbs Height 68 in BMI 24.37 Index Blood Pressure Diastolic 82 mmHg Blood Pressure Systolic 123 mmHg Results No Known Results Summary Purpose [employer] Submission
--- OUTSIDE RECORDS SUMMARY | 2020-04-17 21:49 | XMS REPORT ---
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 Guest Specialist Name Role Phone BISMARK PATIÑO CP Unavailable Allergies, Adverse Reactions, Alerts Substance Reaction Event Type Cipro Info Not Available Drug Allergy Sulfa(sulfonamide Antibiotics) Info Not Available Non Drug Allergy Problems Problem Type Condition Code Onset Dates Condition Statu s Assessment Controlled diabetes mellitus type 1 without complicati ons E10.9 Active Problem Type 1 diabetes mellitus with [...] End Date Status Dosage Glucagon Emergency [facility] [address]-42 1 MG Injection June 16, 2015 as directed Enalapril Maleate [facility] [address]-93 10 mg Once a day 1 tablet Genaro Contour Next Test [facility] [id number] TEST BLOOD FOUR TIMES A DAY. DIAG. 250.50 Genaro Contour Test NDC 0 N/A 4 times a day Aug 13, 2016 test blood sugar NovoLog [facility] [address]-47 100 UNIT/ML per insulin pump up to 45 units daily Diazepam [facility] [address]-18 10 MG Orally 3 times a day 1 tablet Genaro Contour Next Test [facility] [id number] - TEST BLOOD FOUR TIMES A DAY. DIAG. 250.50 Procedures Procedure Coding System Code Date Office Visit, Est Pt., Level 3 CPT-4 81149 N ov 2015 [facility] VISIT ESTABLISHED PATIENT CPT-4 G0467 N ov 2015 Vital Signs Date/Time: Sep 27, 2016 Cardiac Monitoring Heart Rate 68 bpm Weight 159.3 lbs Height 68 in BMI 24.22 Index Blood Pressure Diastolic 94 mmHg Blood Pressure Systolic 142 mmHg Results No Known Results Summary Purpose [employer] Submission
--- OUTSIDE RECORDS SUMMARY | 2020-04-17 21:49 | XMS REPORT ---
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 Active 60182084 Problem Type 1 diabetes mellitus with other diab etic neurological complication E10.49 Active 25961448 ALLERGIES Substance Reaction Event Type Date Status Cipro Unknown Drug Allergy Aug, Active Sulfa(sulfonamide Antibiotics) Unknown Non Drug Allergy Aug Active ENCOUNTERS Encounter Location Date Diagnosis [facility] [id number] [place] [address] March, [facility] [id number] [place] [address] Feb, [facility] [address] [id number] [address] [place] [address] Feb, Type 1 diabetes mellitus wit h other diabetic neurological complication E10.49 ; Tobacco abuse Z72.0 and Tobacco abuse counseling Z71.6 [facility] [address] [id number] [address] [place] [address] Jan, Type 1 diabetes mellitus wit h hyperglycemia E10.65 [facility] [address] [id number] [address] [place] [address] Jan, [facility] [address] [id number] [address] [place] [address] Dec, Tobacco abuse Z72.0 [facility] [address] [facility] [id number] [address] [place] [address] Dec, Type 1 diabetes mellitus wit h hyperglycemia E10.65 [facility] [address] [facility] [id number] [address] [place] [address] 16 Dec, 2017 Type 1 diabetes mellitus wit h hyperglycemia E10.65 ; Tobacco abuse Z72.0 and Tobacco abuse counseling Z71.6 [facility] [address] [facility] [id number] [address] [place] [address] Nov, Type 1 diabetes mellitus wit h hyperglycemia E10.65 [facility] [address] [facility] [id number] [address] [place] [address] Oct, Type 1 diabetes mellitus wit h hyperglycemia E10.65 [facility] [address] [facility] [id number] [address] [place] [address] Oct, Type 1 diabetes mellitus wit h hyperglycemia E10.65 [facility] [address] [facility] [id number] [address] [place] [address] Sep, Type 1 diabetes mellitus wit h hyperglycemia E10.65 [facility] [address] [facility] [id number] [address] [place] [address] Aug, Type 1 diabetes mellitus wit h hyperglycemia E10.65 [facility] [address] [facility] [id number] [address] [place] [address] Aug, [facility] [address] [facility] [id number] [address] [place] [address] Aug, Type 1 diabetes mellitus wit h hyperglycemia E10.65 [facility] [address] [facility] [id number] [address] [place] [address] Aug, Encounter for immunization Z 23 [facility] [address] [facility] [id number] [address] [place] [address] Aug, Type 1 diabetes mellitus wit h hyperglycemia E10.65 [facility] [address] [id number] [address] [place] [address] Jul, Type 1 diabetes mellitus wit h hyperglycemia E10.65 [facility] [address] [id number] [address] [place] [address] Jul, Type 1 diabetes mellitus wit h hyperglycemia E10.65 [facility] [address] [id number] [address] [place] [address] May, Type 1 diabetes mellitus wit h hyperglycemia E10.65 [facility] [address] [id number] [address] [place] [address] May, [facility] [address] [id number] [address] [place] [address] Apr, [facility] [address] [id number] [address] [place] [address] Apr, Type 1 diabetes mellitus wit h hyperglycemia E10.65 [facility] [address] [id number] [address] [place] [address] March, [facility] [address] [id number] [address] [place] [address] March, [facility] [address] [id number] [address] [place] [address] Jan, [facility] [address] [id number] [address] [place] [address] Jan, [facility] [address] [id number] [address] [place] [address] Jan, Type 1 diabetes mellitus wit diabetic polyneuropathy E10.42 [facility] [address] [id number] [address] [place] [address] Jan, Type 1 diabetes mellitus wit h hyperglycemia E10.65 ; Excessive cerumen in both ear canals H61.23 and Controlled diabetes mellitus type 1 without complications E10.9 [facility] [address] [id number] [address] [place] [address] Dec, [facility] [address] [id number] [address] [place] [address] Dec, [facility] [address] [id number] [address] [place] [address] Dec, [facility] [address] [id number] [address] [place] [address] Dec, [facility] [address] [id number] [address] [place] [address] Nov, [facility] [address] [id number] [address] [place] [address] Nov, [facility] [address] [id number] [address] [place] [address] Oct, Type 1 diabetes mellitus wit h hyperglycemia E10.65 [facility] [address] [id number] [address] [place] [address] Sep, [facility] [address] [id number] [address] [place] [address] Sep, [facility] [address] [facility] [id number] [address] [place] [address] Sep, Controlled diabetes mellitus type 1 without complications E10.9 [facility] [address] [id number] [address] [place] [address] Sep, [facility] [address] [id number] [address] [place] [address] [id number] Aug, Dental caries K02.9 [facility] [address] [id number] [address] [place] [address] Aug, Type 1 diabetes mellitus wit h diabetic polyneuropathy E10.42 [facility] [address] [id number] [address] [place] [address] Aug, [facility] [address] [id number] [address] [place] [address] Aug, [facility] [address] [id number] [address] [place] [address] Aug, [facility] [address] [id number] [address] [place] [address] Jul, Type 1 diabetes mellitus wit h hyperglycemia E10.65 [facility] [address] [id number] [address] [place] [address] Jul, Type 1 diabetes mellitus wit h hyperglycemia E10.65 ; Tooth pain K08.8 and Encounter for immunization Z23 [facility] [address] [id number] [address] [place] [id number] 08 Jul, 2016 Dental examination Z01.20 [facility] [address] [id number] [address] [place] [address] 08 Jul, 2016 [facility] [address] [id number] [address] [place] [address] Jul, [facility] [address] [id number] [address] [place] [address] Jul, [facility] [address] [id number] [address] [place] [address] Jun, [facility] [address] [id number] [address] [place] [address] May, [facility] [address] [id number] [address] [place] [address] Apr, [facility] [address] [id number] [address] [place] [address] Apr, [facility] [address] [id number] [address] [place] [address] Apr, [facility] [address] [id number] [address] [place] [address] March, [facility] [address] [id number] [address] [place] [address] March, [facility] [address] [id number] [address] [place] [address] Feb, [facility] [address] [id number] [address] [place] [address] Feb, [facility] [address] [facility] [id number] [address] [place] [address] Feb, Type 1 diabetes mellitus wit h hyperglycemia E10.65 [facility] [address] [facility] [id number] [address] [place] [address] Jan, [facility] [address] [facility] [id number] [address] [place] [address] Jan, [facility] [address] [id number] [address] [place] [address] Jan, [facility] [address] [facility] [id number] [address] [place] [address] Jan, [facility] [address] [facility] [id number] [address] [place] [address] Dec, [facility] [address] [facility] [id number] [address] [place] [address] Nov, [facility] [address] [facility] [id number] [address] [place] [address] Nov, [facility] [address] [facility] [id number] [address] [place] [address] Oct, [facility] [address] [facility] [id number] [address] [place] [address] Oct, Type 1 diabetes mellitus wit h 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 ; Type 1 diabetes mellitus with hyperglycemia E10.65 ; Gastroparesis K31.84 and Esophageal stricture K22.2 [facility] [address] [facility] [id number] [address] [place] [address] Oct, [facility] [address] [facility] [id number] [address] [place] [address] Sep, [facility] [address] [facility] [id number] [address] [place] [address] Sep, Type 1 diabetes mellitus wit h other diabetic neurological complication E10.49 [facility] [address] [id number] [address] [place] [address] Aug, Encounter for immunization Z 23 [facility] [address] [id number] [address] [place] [id number] 19 Aug, 2015 [facility] [address] [id number] [address] [place] [address] Aug, [facility] [address] [id number] [address] [place] [address] Jul, [facility] [address] [id number] [address] [place] [address] Jul, [facility] [address] [id number] [address] [place] [address] Jun, [facility] [address] [id number] [address] [place] [address] Jun, [facility] [address] [id number] [address] [place] [address] Jun, [facility] [address] [id number] [address] [place] [address] May, [facility] [address] [id number] [address] [place] [address] May, [facility] [address] [id number] [address] [place] [address] May, Diabetes type 1, controlled 250.01 [facility] [address] [id number] [address] [place] [address] May, [facility] [address] [id number] [address] [place] [address] May, [facility] [address] [id number] [address] [place] [id number] Apr, Dental examination V72.2 [facility] [address] [id number] [address] [place] [address] Apr, [facility] [address] [id number] [address] [place] [address] Apr, [facility] [address] [id number] [address] [place] [address] Apr, [facility] [address] [id number] [address] [place] [address] Apr, [facility] [address] [id number] [address] [place] [address] Apr, [facility] [address] [id number] [address] [place] [address] [id number] Apr, Dental examination V72.2 [facility] [address] [id number] [address] [place] [address] Apr, [facility] [address] [id number] [address] [place] [address] Apr, [facility] [address] [id number] [address] [place] [address] March, Diabetes mellitus type 1 250 .01 [facility] [address] [id number] [address] [place] [address] March, [facility] [address] [id number] [address] [place] [address] Feb, [facility] [address] [id number] [address] [place] [address] Feb, [facility] [address] [id number] [address] [place] [address] Jan, [facility] [address] [id number] [address] [place] [address] Jan, [facility] [address] [id number] [address] [place] [address] Jan, [facility] [address] [id number] [address] [place] [address] Jan, [facility] [address] [id number] [address] [place] [address], [place] [address] Dec, [facility] [address] [id number] [address] [place] [address], [place] [address] Dec, [facility] [address] [id number] [address] [place] [address], [place] [address] Nov, [facility] [address] [id number] [address] [place] [address], [place] [address] Nov, [facility] [address] [id number] [address] [place] [address], [place] [address] Nov, [facility] [address] [id number] [address] [place] [address], [place] [address] Nov, [facility] [address] [id number] [address] [place] [address], [place] [address] Nov, [facility] [address] [id number] [address] [place] [address], [place] [address] Nov, [facility] [address] [id number] [address] [place] [address], [place] [address] Nov, [facility] [address] [id number] [address] [place] [address], [place] [address] Oct, [facility] [address] [id number] [address] [place] [address], [place] [address] Oct, [facility] [address] [id number] [address] [place] [address], [place] [address] Sep, [facility] [address] [id number] [address] [place] [address], [place] [address] Aug, [facility] [address] [id number] [address] [place] [address], [place] [address] Aug, [facility] [address] [id number] [address] [place] [address], [place] [address] Aug, [facility] [address] [id number] [address] [place] [address], [place] [address] Aug, [facility] [address] [id number] [address] [place] [address], [place] [address] Aug, [facility] [address] [id number] [address] [place] [address], [place] [address] Aug, [facility] [address] [id number] [address] [place] [address], [place] [address] Aug, [facility] [address] [id number] [address] [place] [address], [place] [address] Aug, [facility] [address] [id number] [address] [place] [address], [place] [address] Aug, [facility] [address] [id number] [address] [place] [address], [place] [address] Aug, [facility] [address] [id number] [address] [place] [address], [place] [address] Aug, [facility] [address] [id number] [address] [place] [address], [place] [address] Aug, [facility] [address] [id number] [address] [place] [address], [place] [address] Aug, [facility] [address] [id number] [address] [place] [address], [place] [address] Aug, [facility] [address] [id number] [address] [place] [address], [place] [address] Jul, [facility] [address] [id number] [address] [place] [address], [place] [address] Jul, [facility] [address] [id number] [address] [place] [address], [place] [address] Jul, [facility] [address] [id number] [address] [place] [address], [place] [address] Jul, [facility] [address] [id number] [address] [place] [address], [place] [address] Jun, [facility] [address] [id number] [facility] [place] [address] Jun, [facility] [address] [id number] [facility] [place] [address] Jun, [facility] [address] [id number] [facility] [place] [address] Jun, [facility] [address] [id number] [address] [place] [address], [place] [address] May, [facility] [address] [id number] [address] [place] [address], [place] [address] May, [facility] [address] [id number] [address] [place] [address], [place] [address] May, [facility] [address] [id number] [address] [place] [address], [place] [address] May, [facility] [address] [id number] [address] [place] [address], [place] [address] May, [facility] [address] [id number] [address] [place] [address], [place] [address] May, [facility] [address] [id number] [address] [place] [address], [place] [address] May, [facility] [address] [id number] [address] [place] [address], [place] [address] May, [facility] [address] [id number] [address] [place] [address], [place] [address] May, [facility] [address] [id number] [address] [place] [address], [place] [address] May, [facility] [address] [id number] [address] [place] [address], [place] [address] May, [facility] [address] [id number] [address] [place] [address], [place] [address] May, [facility] [address] [id number] [address] [place] [address], [place] [address] May, [facility] [address] [id number] [facility] [place] [address] Apr, [facility] [address] [id number] [address] [place] [address], [place] [address] Apr, [facility] [address] [id number] [address] [place] [address], [place] [address] Apr, [facility] [address] [id number] [address] [place] [address], [place] [address] Apr, [facility] [address] [id number] [address] [place] [address], [place] [address] Apr, [facility] [address] [id number] [address] [place] [address], [place] [address] Apr, [facility] [address] [id number] [address] [place] [address], [place] [address] Apr, [facility] [address] [id number] [address] [place] [address], [place] [address] Apr, [facility] [address] [id number] [address] [place] [address], [place] [address] Apr, [facility] [address] [id number] [address] [place] [address], [place] [address] Apr, [facility] [address] [id number] [address] [place] [address], [place] [address] Apr, [facility] [address] [id number] [address] [place] [address], [place] [address] Apr, [facility] [address] [id number] [address] [place] [address], [place] [address] Apr, [facility] [address] [id number] [address] [place] [address], [place] [address] Apr, [facility] [address] [id number] [address] [place] [address], [place] [address] March, [facility] [address] [id number] [address] [place] [address], [place] [address] March, [facility] [address] [id number] [address] [place] [address], [place] [address] March, [facility] [address] [id number] [address] [place] [address], [place] [address] March, [facility] [address] [id number] [address] [place] [address], [place] [address] March, [facility] [address] [id number] [address] [place] [address], [place] [address] March, [facility] [address] [id number] [address] [place] [address], [place] [address] March, [facility] [address] [id number] [address] [place] [address], [place] [address] March, [facility] [address] [id number] [address] [place] [address], [place] [address] March, [facility] [address] [id number] [address] [place] [address], [place] [address] March, [facility] [address] [id number] [address] [place] [address], [place] [address] Feb, [facility] [address] [id number] [address] [place] [address], [place] [address] Feb, [facility] [address] [id number] [address] [place] [address], [place] [address] Feb, [facility] [address] [id number] [address] [place] [address], [place] [address] Feb, [facility] [address] [id number] [address] [place] [address], [place] [address] Feb, [facility] [address] [id number] [address] [place] [address], [place] [address] Feb, [facility] [address] [id number] [address] [place] [address], [place] [address] Feb, [facility] [address] [id number] [facility] [place] [address] Feb, [facility] [address] [id number] [facility] [place] [address] Jan, [facility] [address] [id number] [facility] [place] [address] Jan, [facility] [address] [id number] [facility] [place] [address] Jan, [facility] [address] [id number] [facility] [place] [address] Jan, [facility] [address] [id number] [address] [place] [address], [place] [address] Jan, [facility] [address] [id number] [address] [place] [address], [place] [address] Jan, [facility] [address] [id number] [address] [place] [address], [place] [address] Jan, [facility] [address] [id number] [address] [place] [address], [place] [address] Jan, [facility] [address] [id number] [address] [place] [address], [place] [address] Jan, [facility] [address] [id number] [address] [place] [address], [place] [address] Jan, [facility] [address] [id number] [address] [place] [address], [place] [address] Dec, [facility] [address] [id number] [address] [place] [address], [place] [address] Dec, [facility] [address] [id number] [address] [place] [address], [place] [address] Nov, [facility] [address] [id number] [address] [place] [address], [place] [address] Nov, [facility] [address] [id number] [address] [place] [address], [place] [address] 16 Nov, 2013 [facility] [address] [id number] [address] [place] [address], [place] [address] 16 Nov, 2013 [facility] [address] [id number] [address] [place] [address], [place] [address] Nov, [facility] [address] [id number] [address] [place] [address], [place] [address] Nov, [facility] [address] [id number] [address] [place] [address], [place] [address] Nov, [facility] [address] [id number] [address] [place] [address], [place] [address] Nov, [facility] [address] [id number] [address] [place] [address], [place] [address] Oct, [facility] [address] [id number] [address] [place] [address], [place] [address] Oct, [facility] [address] [id number] [address] [place] [address], [place] [address] Oct, [facility] [address] [id number] [address] [place] [address], [place] [address] Oct, [facility] [address] [id number] [address] [place] [address], [place] [address] Oct, [facility] [address] [id number] [address] [place] [address], [place] [address] Oct, [facility] [address] [id number] [address] [place] [address], [place] [address] Sep, [facility] [address] [id number] [address] [place] [address], [place] [address] Sep, [facility] [address] [id number] [address] [place] [address], [place] [address] Sep, [facility] [address] [id number] [address] [place] [address], [place] [address] Sep, [facility] [address] [id number] [address] [place] [address], [place] [address] Sep, [facility] [address] [id number] [address] [place] [address], [place] [address] Aug, [facility] [address] [id number] [address] [place] [address], [place] [address] Aug, [facility] [address] [id number] [address] [place] [address], [place] [address] Aug, [facility] [address] [id number] [address] [place] [address], [place] [address] Aug, [facility] [address] [id number] [address] [place] [address], [place] [address] Aug, [facility] [address] [id number] [address] [place] [address], [place] [address] Aug, [facility] [address] [id number] [address] [place] [address], [place] [address] Jul, [facility] [address] [id number] [address] [place] [address], [place] [address] Jul, [facility] [address] [id number] [address] [place] [address], [place] [address] Jul, [facility] [address] [id number] [address] [place] [address], [place] [address] Jun, [facility] [address] [id number] [address] [place] [address], [place] [address] Jun, [facility] [address] [id number] [address] [place] [address], [place] [address] May, [facility] [address] [id number] [address] [place] [address], [place] [address] May, [facility] [address] [id number] [address] [place] [address], [place] [address] Apr, [facility] [address] [id number] [address] [place] [address], [place] [address] Apr, [facility] [address] [id number] [address] [place] [address], [place] [address] Apr, [facility] [address] [id number] [address] [place] [address], [place] [address] March, [facility] [address] [id number] [address] [place] [address], [place] [address] Feb, [facility] [address] [id number] [address] [place] [address], [place] [address] Feb, [facility] [address] [id number] [address] [place] [address], [place] [address] Jan, [facility] [address] [id number] [address] [place] [address], [place] [address] Jan, [facility] [address] [id number] [address] [place] [address], [place] [address] Jan, [facility] [address] [id number] [address] [place] [address], [place] [address] Jan, [facility] [address] [id number] [address] [place] [address], [place] [address] Jan, [facility] [address] [id number] [address] [place] [address], [place] [address] Dec, [facility] [address] [id number] [address] [place] [address], [place] [address] Dec, [facility] [address] [id number] [address] [place] [address] Dec, [facility] [address] [id number] [address] [place] [address], [place] [address] Dec, [facility] [address] [id number] [address] [place] [address], [place] [address] Dec, [facility] [address] [id number] [address] [place] [address], [place] [address] Dec, [facility] [address] [place] [id number] 14 Nov, 2012 [facility] [address] [id number] [address] [place] [address], [place] [address] Nov, [facility] [address] [id number] [address] [place] [address], [place] [address] Nov, [facility] [address] [id number] [address] [place] [address], [place] [address] Nov, [facility] [address] [id number] [address] [place] [address], [place] [address] Nov, [facility] [address] [id number] [address] [place] [address], [place] [address] Oct, [facility] [address] [id number] [address] [place] [address], [place] [address] Oct, [facility] [address] [id number] [address] [place] [address], [place] [address] Oct, [facility] [address] [id number] [address] [place] [address], [place] [address] Oct, [facility] [address] [id number] [address] [place] [address], [place] [address] Oct, [facility] [address] [id number] [address] [place] [address], [place] [address] Oct, [facility] [address] [id number] [address] [place] [address], [place] [address] Oct, [facility] [address] [id number] [address] [place] [address], [place] [address] Oct, [facility] [address] [id number] [address] [place] [address], [place] [address] Sep, [facility] [address] [id number] [address] [place] [address], [place] [address] Sep, [facility] [address] [id number] [address] [place] [address], [place] [address] Sep, [facility] [address] [id number] [address] [place] [address] Sep, [facility] [address] [id number] [address] [place] [address] Sep, [facility] [address] [id number] [address] [place] [address] Sep, [facility] [address] [id number] [address] [place] [address] Sep, [facility] [address] [id number] [address] [place] [address] Sep, [facility] [address] [id number] [address] [place] [address] Sep, [facility] [address] [id number] [address] [place] [address] Sep, [facility] [address] [id number] [address] [place] [address] Sep, [facility] [address] [id number] [address] [place] [address] Sep, [facility] [address] [id number] [address] [place] [address] Sep, [facility] [address] [id number] [address] [place] [address] Sep, [facility] [address] [id number] [address] [place] [address] Sep, [facility] [address] [id number] [address] [place] [address] Sep, IMMUNIZATIONS No Known Immunizations SOCIAL HISTORY Never Assessed REASON FOR VISIT Diabetes-Jeffy REESE PLAN OF CARE VITAL SIGNS Height 68 in 2017-09-19 Weight 154.2 lbs 2017-09-19 Temperature 98.2 degrees Fahrenheit 2017-09-19 Heart Rate 78 bpm 2017-09-19 Respiratory Rate 20 2017-09-19 BMI 23.44 kg/m2 2017-09-19 Blood pressure systolic 102 mmHg 2017-09-19 Blood pressure diastolic 70 mmHg 2017-09-19 MEDICATIONS Medication Instructions Dosage Frequency Start Date End Date Duration S tatus Genaro Contour Test N/A test blood sugar 6h Jul, Active Diazepam 10 MG Orally 3 times a day 1 tablet 8h 28 days Active Glucagon Emergency 1 MG as directed May, 1 dose Active NovoLog 100 UNIT/ML up to 45 units daily Active Enalapril Maleate 10 mg 1 tablet 24h Active Genaro Contour Next Test - TEST BLOOD SUGAR FOUR TIMES A DAY E1 0.65 30 Active RESULTS Name Result Date Reference Range A1C (IN HOUSE) 2017-09-19 A1C IN HOUSE 7.0 4.3 - 5.6 % Previous A1c 8.2 Lot [id number] Exp date 05/2019 PROCEDURES Procedure Date Ordered Result Body Site [facility] VISIT ESTABLISHED PATIENT Sep 19, 2017 GLYCATED HEMOGLOBIN TEST Sep 19, 2017 INSTRUCTIONS MEDICATIONS ADMINISTERED No Known Medications MEDICAL (GENERAL) HISTORY Type Description Date Medical History hypertension Medical History type I diabetes Medical History chronic renal insufficiency Surgical History gastric pacemaker 2008 Hospitalization History nausea 2011
--- OUTSIDE RECORDS SUMMARY | 2020-04-17 21:49 | XMS REPORT ---
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 Active 58392558 Problem Type 1 diabetes mellitus with hyperglycemia E10.65 Active 016992545280753 Problem Gastroparesis K31.84 Active 567624 006 Problem Hypertension, essential I10 Active 31959026 Problem 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 Active 18527037 Problem Type 1 diabetes mellitus with other diab etic neurological complication E10.49 Active [id number] ALLERGIES No Information ENCOUNTERS Encounter Location Date Diagnosis [place] [address] [address] Jan, Type 1 diabetes mellitus wit h hyperglycemia E10.65 [place] [address] [address] Jan, [place] [address] [address] Dec, Tobacco abuse Z72.0 [place] [address] [address] Dec, Type 1 diabetes mellitus wit h hyperglycemia E10.65 [place] [address] [address] 16 Dec, 2017 Type 1 diabetes mellitus wit h hyperglycemia E10.65 ; Tobacco abuse Z72.0 and Tobacco abuse counseling Z71.6 [place] [address] [address] Nov, Type 1 diabetes mellitus wit h hyperglycemia E10.65 [facility] [address] [id number] [address] [place] [address] Oct, Type 1 diabetes mellitus wit h hyperglycemia E10.65 [facility] [address] [id number] [address] [place] [address] Oct, Type 1 diabetes mellitus wit h hyperglycemia E10.65 [facility] [address] [facility] [place] [id number] [address] [place] [address] Sep, Type 1 diabetes mellitus wit h hyperglycemia E10.65 [facility] [address] [id number] [address] [place] [address] Aug, Type 1 diabetes mellitus wit h hyperglycemia E10.65 [facility] [address] [facility] [id number] [address] [place] [address] Aug, [facility] [address] [facility] [id number] [address] [place] [address] Aug, Type 1 diabetes mellitus wit h hyperglycemia E10.65 [facility] [address] [facility] [id number] [address] [place] [address] Aug, Encounter for immunization Z 23 [facility] [address] [facility] [id number] [address] [place] [address] Aug, Type 1 diabetes mellitus wit h hyperglycemia E10.65 [facility] [address] [facility] [id number] [address] [place] [address] Jul, Type 1 diabetes mellitus wit h hyperglycemia E10.65 [facility] [address] [id number] [address] [place] [address] Jul, Type 1 diabetes mellitus wit h hyperglycemia E10.65 [facility] [address] [facility] [id number] [address] [place] [address] May, Type 1 diabetes mellitus wit h hyperglycemia E10.65 [facility] [address] [facility] [id number] [address] [place] [address] May, [facility] [address] [facility] [id number] [address] [place] [address] Apr, [facility] [address] [id number] [address] [place] [address] Apr, Type 1 diabetes mellitus wit h hyperglycemia E10.65 [facility] [address] [facility] [id number] [address] [place] [address] March, [facility] [address] [facility] [id number] [address] [place] [address] March, [facility] [address] [id number] [address] [place] [address] Jan, [facility] [address] [facility] [id number] [address] [place] [address] Jan, [facility] [address] [facility] [id number] [address] [place] [address] Jan, Type 1 diabetes mellitus wit h diabetic polyneuropathy E10.42 [facility] [address] [id number] [address] [place] [address] Jan, Type 1 diabetes mellitus wit h hyperglycemia E10.65 ; Excessive cerumen in both ear canals H61.23 and Controlled diabetes mellitus type 1 without complications E10.9 [facility] [address] [facility] [id number] [address] [place] [address] Dec, [facility] [address] [facility] [id number] [address] [place] [address] Dec, [facility] [address] [facility] [id number] [address] [place] [address] Dec, [facility] [address] [facility] [id number] [address] [place] [address] Dec, [facility] [address] [facility] [id number] [address] [place] [address] Nov, [facility] [address] [facility] [id number] [address] [place] [address] Nov, [facility] [address] [id number] [address] [place] [address] Oct, Type 1 diabetes mellitus wit h hyperglycemia E10.65 [facility] [address] [id number] [address] [place] [address] Sep, [facility] [address] [facility] [id number] [address] [place] [address] Sep, [facility] [address] [id number] [address] [place] [address] Sep, Controlled diabetes mellitus type 1 without complications E10.9 [facility] [address] [id number] [address] [place] [address] Sep, [facility] [address] [id number] [address] [place] [id number] Aug, Dental caries K02.9 [facility] [address] [id number] [address] [place] [address] Aug, Type 1 diabetes mellitus wit h diabetic polyneuropathy E10.42 [facility] [address] [id number] [address] [place] [address] Aug, [facility] [address] [facility] [id number] [address] [place] [address] Aug, [facility] [address] [id number] [address] [place] [address] Aug, [facility] [address] [id number] [address] [place] [address] Jul, Type 1 diabetes mellitus wit h hyperglycemia E10.65 [facility] [address] [id number] [address] [place] [address] Jul, Type 1 diabetes mellitus wit h hyperglycemia E10.65 ; Tooth pain K08.8 and Encounter for immunization Z23 [facility] [address] [id number] [address] [place] [address] [id number] Jul, 2016 Dental examination Z01.20 [facility] [address] [id number] [address] [place] [address], [place] [address] 08 Jul, 2016 [facility] [address] [id number] [address] [place] [address], [place] [address] 07 Jul, 2016 [facility] [address] [id number] [address] [place] [address], [place] [address] Jul, [facility] [address] [id number] [address] [place] [address], [place] [address] Jun, [facility] [address] [id number] [address] [place] [address], [place] [address] May, [facility] [address] [id number] [address] [place] [address], [place] [address] Apr, [facility] [address] [id number] [address] [place] [address], [place] [address] Apr, [facility] [address] [id number] [address] [place] [address], [place] [address] Apr, [facility] [address] [id number] [address] [place] [address], [place] [address] March, [facility] [address] [id number] [address] [place] [address], [place] [address] March, [facility] [address] [id number] [address] [place] [address], [place] [address] Feb, [facility] [address] [id number] [address] [place] [address], [place] [address] Feb, [facility] [address] [id number] [address] [place] [address], [place] [address] Feb, Type 1 diabetes mellitus wit h hyperglycemia E10.65 [facility] [address] [id number] [address] [place] [address], [place] [address] Jan, [facility] [address] [id number] [address] [place] [address] Jan, [facility] [address] [id number] [address] [place] [address] 08 Jan, 2016 [facility] [address] [facility] [id number] [address] [place] [address] Jan, [facility] [address] [facility] [id number] [address] [place] [address] Dec, [facility] [address] [facility] [id number] [address] [place] [address] Nov, [facility] [address] [facility] [id number] [address] [place] [address] Nov, [facility] [address] [facility] [id number] [address] [place] [address] Oct, [facility] [address] [place] [id number] [place] [address] 04 Oct, 2015 Type 1 diabetes mellitus wit h 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 ; Type 1 diabetes mellitus with hyperglycemia E10.65 ; Gastroparesis K31.84 and Esophageal stricture K22.2 [facility] [address] [facility] [id number] [address] [place] [address] Oct, [facility] [address] [facility] [id number] [place] [address] Sep, [facility] [address] [facility] [id number] [place] [address] Sep, Type 1 diabetes mellitus wit h other diabetic neurological complication E10.49 [facility] [address] [facility] [id number] [address] [place] [address] Aug, Encounter for immunization Z 23 [facility] [address] [facility] [id number] [address] [place] [address] Aug, [facility] [address] [place] [id number] [address] [place] [address] Aug, [facility] [address] [facility] [id number] [address] [place] [address] Jul, [facility] [address] [id number] [address] [place] [address] Jul, [facility] [address] [id number] [address] [place] [address] Jun, [facility] [address] [id number] [address] [place] [address] Jun, [facility] [address] [id number] [address] [place] [address] Jun, [facility] [address] [id number] [address] [place] [address] May, [facility] [address] [id number] [address] [place] [address] May, [facility] [address] [id number] [address] [place] [address] May, Diabetes type 1, controlled 250.01 [facility] [address] [id number] [address] [place] [address] May, [facility] [address] [id number] [address] [place] [address] May, [facility] [address] [id number] [address] [place] [address] [id number] Apr, Dental examination V72.2 [facility] [address] [id number] [address] [place] [address] Apr, [facility] [address] [id number] [address] [place] [address] Apr, [facility] [address] [id number] [address] [place] [address] Apr, [facility] [address] [id number] [address] [place] [address] Apr, [facility] [address] [id number] [address] [place] [address] Apr, [facility] [address] [id number] [address] [place] [address] [id number] Apr, Dental examination V72.2 [facility] [address] [id number] [address] [place] [address] Apr, [facility] [address] [id number] [address] [place] [address] Apr, [facility] [address] [id number] [address] [place] [address] March, Diabetes mellitus type 1 250 .01 [facility] [address] [id number] [address] [place] [address] March, [facility] [address] [id number] [address] [place] [address] Feb, [facility] [address] [id number] [address] [place] [address] Feb, [facility] [address] [id number] [address] [place] [address] Jan, [facility] [address] [id number] [address] [place] [address] Jan, [facility] [address] [id number] [address] [place] [address] Jan, [facility] [address] [id number] [address] [place] [address] Jan, [facility] [address] [id number] [address] [place] [address] Dec, [facility] [address] [id number] [address] [place] [address] Dec, [facility] [address] [id number] [address] [place] [address] Nov, [facility] [address] [id number] [address] [place] [address] Nov, [facility] [address] [id number] [address] [place] [address] Nov, [facility] [address] [id number] [address] [place] [address], [place] [address] Nov, [facility] [address] [id number] [address] [place] [address], [place] [address] Nov, [facility] [address] [id number] [address] [place] [address], [place] [address] Nov, [facility] [address] [id number] [address] [place] [address], [place] [address] Nov, [facility] [address] [id number] [address] [place] [address], [place] [address] Oct, [facility] [address] [id number] [address] [place] [address], [place] [address] Oct, [facility] [address] [id number] [address] [place] [address], [place] [address] Sep, [facility] [address] [id number] [address] [place] [address], [place] [address] Aug, [facility] [address] [id number] [address] [place] [address], [place] [address] Aug, [facility] [address] [id number] [address] [place] [address], [place] [address] Aug, [facility] [address] [id number] [address] [place] [address], [place] [address] Aug, [facility] [address] [id number] [address] [place] [address] Aug, [facility] [address] [id number] [address] [place] [address], [place] [address] Aug, [facility] [address] [id number] [address] [place] [address], [place] [address] Aug, [facility] [address] [id number] [address] [place] [address], [place] [address] Aug, [facility] [address] [id number] [address] [place] [address], [place] [address] Aug, [facility] [address] [id number] [address] [place] [address], [place] [address] Aug, [facility] [address] [id number] [address] [place] [address], [place] [address] Aug, [facility] [address] [id number] [address] [place] [address], [place] [address] Aug, [facility] [address] [id number] [address] [place] [address], [place] [address] Aug, [facility] [address] [id number] [address] [place] [address], [place] [address] Aug, [facility] [address] [id number] [address] [place] [address], [place] [address] Jul, [facility] [address] [id number] [address] [place] [address], [place] [address] Jul, [facility] [address] [id number] [address] [place] [address], [place] [address] Jul, [facility] [address] [id number] [address] [place] [address], [place] [address] Jul, [facility] [address] [id number] [address] [place] [address], [place] [address] Jun, [facility] [address] [id number] [address] [place] [address], [place] [address] Jun, [facility] [address] [id number] [address] [place] [address], [place] [address] Jun, [facility] [address] [id number] [address] [place] [address], [place] [address] Jun, [facility] [address] [id number] [address] [place] [address], [place] [address] May, [facility] [address] [id number] [address] [place] [address], [place] [address] May, [facility] [address] [id number] [facility] [place] [address] May, 2013 [facility] [address] [id number] [facility] [place] [address] May, 2013 [facility] [address] [id number] [facility] [place] [address] May, 2013 [facility] [address] [id number] [facility] [place] [address] May, 2013 [facility] [address] [id number] [facility] [place] [address] May, 2013 [facility] [address] [id number] [address] [place] [address], [place] [address] May, [facility] [address] [id number] [address] [place] [address], [place] [address] May, 2013 [facility] [address] [id number] [address] [place] [address], [place] [address] May, [facility] [address] [id number] [address] [place] [address], [place] [address] May, [facility] [address] [id number] [address] [place] [address], [place] [address] May, [facility] [address] [id number] [address] [place] [address], [place] [address] May, [facility] [address] [id number] [address] [place] [address], [place] [address] Apr, [facility] [address] [id number] [address] [place] [address], [place] [address] Apr, [facility] [address] [id number] [address] [place] [address], [place] [address] Apr, [facility] [address] [id number] [address] [place] [address], [place] [id number] Apr, [facility] [address] [id number] [address] [place] [address], [place] [address] Apr, [facility] [address] [id number] [facility] [place] [address] Apr, [facility] [address] [id number] [address] [place] [address], [place] [address] Apr, [facility] [address] [id number] [address] [place] [address], [place] [address] Apr, [facility] [address] [id number] [address] [place] [address], [place] [address] Apr, [facility] [address] [id number] [address] [place] [address], [place] [id number] Apr, [facility] [address] [id number] [address] [place] [address], [place] [address] Apr, [facility] [address] [id number] [address] [place] [address], [place] [address] Apr, [facility] [address] [id number] [address] [place] [address], [place] [address] Apr, [facility] [address] [id number] [address] [place] [address], [place] [address] Apr, [facility] [address] [id number] [address] [place] [address], [place] [address] March, [facility] [address] [id number] [address] [place] [address], [place] [address] March, [facility] [address] [id number] [address] [place] [address], [place] [address] March, [facility] [address] [id number] [address] [place] [address], [place] [address] March, [facility] [address] [id number] [address] [place] [address], [place] [id number] March, [facility] [address] [id number] [address] [place] [address], [place] [address] March, [facility] [address] [id number] [facility] [place] [address] March, [facility] [address] [id number] [address] [place] [address], [place] [id number] March, [facility] [address] [id number] [address] [place] [address], [place] [address] March, [facility] [address] [id number] [address] [place] [address], [place] [address] March, [facility] [address] [id number] [address] [place] [address], [place] [address] Feb, [facility] [address] [id number] [address] [place] [address], [place] [address] Feb, [facility] [address] [id number] [address] [place] [address], [place] [address] Feb, [facility] [address] [id number] [address] [place] [address], [place] [address] Feb, [facility] [address] [id number] [address] [place] [address], [place] [address] Feb, [facility] [address] [id number] [address] [place] [address], [place] [id number] Feb, [facility] [address] [id number] [address] [place] [address], [place] [id number] Feb, [facility] [address] [id number] [address] [place] [address], [place] [address] Feb, [facility] [address] [id number] [address] [place] [address], [place] [address] Jan, [facility] [address] [id number] [address] [place] [address], [place] [address] Jan, [facility] [address] [id number] [address] [place] [address], [place] [address] Jan, [facility] [address] [id number] [address] [place] [address], [place] [address] Jan, [facility] [address] [id number] [address] [place] [address], [place] [address] Jan, [facility] [address] [id number] [address] [place] [address], [place] [address] Jan, [facility] [address] [id number] [address] [place] [address], [place] [address] Jan, [facility] [address] [id number] [address] [place] [address], [place] [address] Jan, [facility] [address] [id number] [address] [place] [address], [place] [address] Jan, [facility] [address] [id number] [address] [place] [address], [place] [address] Jan, [facility] [address] [id number] [address] [place] [address], [place] [address] Dec, [facility] [address] [id number] [address] [place] [address], [place] [address] Dec, [facility] [address] [id number] [address] [place] [address], [place] [address] Nov, [facility] [address] [id number] [address] [place] [address], [place] [address] Nov, [facility] [address] [id number] [address] [place] [address], [place] [address] Nov, [facility] [address] [id number] [address] [place] [address], [place] [address] Nov, [facility] [address] [id number] [address] [place] [address], [place] [address] Nov, [facility] [address] [id number] [address] [place] [address], [place] [address] Nov, [facility] [address] [id number] [address] [place] [address], [place] [address] Nov, [facility] [address] [id number] [address] [place] [address] Nov, [facility] [address] [id number] [address] [place] [address], [place] [address] Oct, [facility] [address] [id number] [address] [place] [address] Oct, [facility] [address] [id number] [address] [place] [address], [place] [address] Oct, [facility] [address] [id number] [address] [place] [address], [place] [address] Oct, [facility] [address] [id number] [address] [place] [address], [place] [address] Oct, [facility] [address] [id number] [address] [place] [address], [place] [address] Oct, [facility] [address] [id number] [address] [place] [address] Sep, [facility] [address] [id number] [address] [place] [address], [place] [address] Sep, [facility] [address] [id number] [address] [place] [address], [place] [address] Sep, [facility] [address] [id number] [address] [place] [address] Sep, [facility] [address] [id number] [address] [place] [address] Sep, [facility] [address] [id number] [address] [place] [address] Aug, [facility] [address] [id number] [address] [place] [address] Aug, [facility] [address] [id number] [address] [place] [address] Aug, [facility] [address] [id number] [address] [place] [address] Aug, [facility] [address] [id number] [address] [place] [address], [place] [address] Aug, [facility] [address] [id number] [address] [place] [address], [place] [address] Aug, [facility] [address] [id number] [address] [place] [address], [place] [address] Jul, [facility] [address] [id number] [address] [place] [address], [place] [address] Jul, [facility] [address] [id number] [address] [place] [address], [place] [address] Jul, [facility] [address] [id number] [address] [place] [address], [place] [address] Jun, [facility] [address] [id number] [address] [place] [address], [place] [address] Jun, [facility] [address] [id number] [address] [place] [address], [place] [address] May, [facility] [address] [id number] [address] [place] [address], [place] [address] May, [facility] [address] [id number] [address] [place] [address], [place] [address] Apr, [facility] [address] [id number] [address] [place] [address], [place] [address] Apr, [facility] [address] [id number] [address] [place] [address], [place] [address] Apr, [facility] [address] [id number] [address] [place] [address], [place] [address] March, [facility] [address] [id number] [address] [place] [address], [place] [address] Feb, [facility] [address] [id number] [address] [place] [address], [place] [address] Feb, [facility] [address] [id number] [address] [place] [address], [place] [address] Jan, [facility] [address] [id number] [facility] [place] [address] Jan, [facility] [address] [id number] [facility] [place] [address] Jan, [facility] [address] [id number] [address] [place] [address], [place] [address] Jan, [facility] [address] [id number] [address] [place] [address], [place] [address] Jan, [facility] [address] [id number] [facility] [place] [address] Dec, [facility] [address] [id number] [address] [place] [address], [place] [address] Dec, [facility] [address] [id number] [address] [place] [address], [place] [address] 18 Dec, 2012 [facility] [address] [id number] [address] [place] [address], [place] [address] Dec, [facility] [address] [id number] [address] [place] [address], [place] [address] 05 Dec, 2012 [facility] [address] [id number] [address] [place] [address], [place] [address] 05 Dec, 2012 [facility] [address] [place] [id number] Nov, [facility] [address] [id number] [address] [place] [address], [place] [address] Nov, [facility] [address] [id number] [address] [place] [address], [place] [address] Nov, [facility] [address] [id number] [address] [place] [address], [place] [address] Nov, [facility] [address] [id number] [address] [place] [address], [place] [address] Nov, [facility] [address] [id number] [address] [place] [address] 27 Oct, 2012 [facility] [address] [id number] [address] [place] [address], [place] [address] Oct, [facility] [address] [id number] [address] [place] [address], [place] [address] Oct, [facility] [address] [id number] [address] [place] [address], [place] [address] Oct, [facility] [address] [id number] [address] [place] [address], [place] [address] Oct, [facility] [address] [id number] [address] [place] [address], [place] [address] Oct, [facility] [address] [id number] [address] [place] [address], [place] [address] Oct, [facility] [address] [id number] [address] [place] [address], [place] [address] Oct, [facility] [address] [id number] [address] [place] [address], [place] [address] Sep, [facility] [address] [id number] [address] [place] [address], [place] [address] Sep, [facility] [address] [id number] [address] [place] [address], [place] [address] Sep, [facility] [address] [id number] [address] [place] [address], [place] [address] Sep, [facility] [address] [id number] [address] [place] [address], [place] [address] Sep, [facility] [address] [id number] [address] [place] [address], [place] [address] Sep, [facility] [address] [id number] [address] [place] [address], [place] [address] Sep, [facility] [address] [id number] [address] [place] [address], [place] [address] Sep, [facility] [address] [id number] [address] [place] [address] Sep, [facility] [address] [id number] [address] [place] [address] Sep, [facility] [address] [id number] [address] [place] [address] Sep, [facility] [address] [id number] [address] [place] [address] Sep, [facility] [address] [id number] [address] [place] [address] Sep, [facility] [address] [id number] [address] [place] [address] Sep, [facility] [address] [facility] [id number] [address] [place] [address] Sep, [facility] [address] [facility] [id number] [address] [place] [address] Sep, IMMUNIZATIONS No Known Immunizations SOCIAL HISTORY [...]
--- OUTSIDE RECORDS SUMMARY | 2020-04-17 21:50 | XMS REPORT ---
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 Braiding Operator Name Role Phone BISMARK PATIÑO CP Unavailable Allergies, Adverse Reactions, Alerts Substance Reaction Event Type Cipro Info Not Available Drug Allergy Sulfa(sulfonamide Antibiotics) Info Not Available Non Drug Allergy Problems Problem Type Condition Code Onset Dates Condition Statu s Assessment Gastroparesis K31.84 Active Assessment Esophageal stricture K22.2 Active Problem Type 1 diabetes mellitus with other diab etic neurological complication E10.49 Active Problem Gastroparesis K31.84 Active Problem 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 DIAG. 250.50 Enalapril Maleate [facility] [address]-56 10 MG Orally Once a day 1 tablet Diazepam [facility] [address]-75 10 MG Orally not defined Glucagon Emergency [facility] [address]-14 1 MG Injection June 16, 2015 as directed NovoLog [facility] [address]-93 100 UNIT/ML 3 times a day INJECT 10 UNITS Procedures Procedure Coding System Code Date Office Visit, Est Pt., Level 3 CPT-4 40133 D ec [facility] ESTABLISHED PATIENT CPT-4 G0467 D ec 2014 Vital Signs Date/Time: Oct 24, 2015 Temperature 98.0 F Weight 164 lbs Height 68 in BMI 24.93 Index Blood Pressure Diastolic 72 mmHg Blood Pressure Systolic 120 mmHg Cardiac Monitoring Heart Rate 78 bpm Results No Known Results Summary Purpose [employer] Submission
--- OUTSIDE RECORDS SUMMARY | 2020-04-17 21:50 | XMS REPORT ---
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
--- OUTSIDE RECORDS SUMMARY | 2020-04-17 21:50 | XMS REPORT ---
Author Author Curt PATIÑO Organization [facility] Address [address] [place] [address] Care Team Providers Care Traffic Technician Name Role Phone BISMARK PATIÑO Unavailable PROBLEMS Type Condition ICD9-CM Code [id number] Code Onset Dates Condition S tatus SNOMED Code Problem 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 Active 16548438 Problem Type 1 diabetes mellitus with other diab etic neurological complication E10.49 Active 10425610 Problem Mood disorder F39 Active 406104 05 Problem Gastroparesis K31.84 Active 436720 006 Problem Hypertension, essential I10 Active 86783125 ALLERGIES Unknown Allergies SOCIAL HISTORY No smoking Hx information available PLAN OF CARE VITAL SIGNS MEDICATIONS Unknown Medications RESULTS No Results PROCEDURES No Known procedures IMMUNIZATIONS No Known Immunizations
--- OUTSIDE RECORDS SUMMARY | 2020-04-17 21:50 | XMS REPORT ---
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 Clerical Specialist Name Role Phone BISMARK PATIÑO CP [...] Start Date End Date Status Dosage NovoLog [facility] [address]-57 100 UNIT/ML 3 times a day INJECT 10 UNITS Results No Known Results Summary Purpose [employer] Submission
--- OUTSIDE RECORDS SUMMARY | 2020-04-17 21:50 | XMS REPORT ---
Author Author Curt PATIÑO Organization [facility] Address [address] [place] [address] Care Team Providers Care Sales Floor Associate Name Role Phone BISMARK PATIÑO Unavailable PROBLEMS Type Condition ICD9-CM Code [id number] Code Onset Dates Condition S tatus SNOMED Code Problem Mood disorder F39 Active 778082 05 Problem Type 1 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 Active 49300125 Problem Type 1 diabetes mellitus with hyperglycemia E10.65 Active 641083674632709 Problem Gastroparesis K31.84 Active 256549 006 Problem Hypertension, essential I10 Active 95497944 Problem 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 Active 22686870 Problem Type 1 diabetes mellitus with other diab etic neurological complication E10.49 Active 39100478 ALLERGIES Unknown Allergies SOCIAL HISTORY No smoking Hx information available PLAN OF CARE VITAL SIGNS MEDICATIONS Unknown Medications RESULTS No Results PROCEDURES No Known procedures IMMUNIZATIONS No Known Immunizations
--- OUTSIDE RECORDS SUMMARY | 2020-04-17 21:50 | XMS REPORT ---
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 Active 06963989 Problem Type 1 diabetes mellitus with hyperglycemia E10.65 Active [id number] Problem Gastroparesis K31.84 Active 046662 006 Problem Hypertension, essential I10 Active 73857455 Problem 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 Active 31430531 Problem Type 1 diabetes mellitus with other diab etic neurological complication E10.49 Active [id number] ALLERGIES No Information ENCOUNTERS Encounter Location Date Diagnosis [facility] [address] [facility] [id number] [address] [place] [address] March, [facility] [address] [facility] [id number] [address] [place] [phone] Feb, [facility] [address] [facility] [id number] [address] [place] [address] Feb, Type 1 diabetes mellitus wit h other diabetic neurological complication E10.49 ; Tobacco abuse Z72.0 and Tobacco abuse counseling Z71.6 [facility] [address] [facility] [id number] [address] [place] [phone] Jan, Type 1 diabetes mellitus wit h hyperglycemia E10.65 [facility] [address] [facility] [id number] [address] [place] [address] Jan, [facility] [address] [facility] [id number] [address] [place] [address] Dec, Tobacco abuse Z72.0 [facility] [address] [facility] [id number] [address] [place] [phone] 20 Dec, 2017 Type 1 diabetes mellitus wit h hyperglycemia E10.65 [facility] [address] [facility] [id number] [address] [place] [id number] Dec, Type 1 diabetes mellitus wit h hyperglycemia E10.65 ; Tobacco abuse Z72.0 and Tobacco abuse counseling Z71.6 [facility] [address] [facility] [id number] [address] [place] [address] Nov, Type 1 diabetes mellitus wit h hyperglycemia E10.65 [facility] [address] [facility] [id number] [address] [place] [address] Oct, Type 1 diabetes mellitus wit h hyperglycemia E10.65 [facility] [address] [facility] [id number] [address] [place] [phone] Oct, Type 1 diabetes mellitus wit h hyperglycemia E10.65 [facility] [address] [facility] [id number] [address] [place] [address] Sep, Type 1 diabetes mellitus wit h hyperglycemia E10.65 [facility] [address] [facility] [id number] [address] [place] [address] Aug, Type 1 diabetes mellitus wit h hyperglycemia E10.65 [facility] [address] [facility] [id number] [address] [place] [address] Aug, [facility] [address] [facility] [id number] [address] [place] [address] Aug, Type 1 diabetes mellitus wit h hyperglycemia E10.65 [facility] [address] [facility] [id number] [address] [place] [address] Aug, Encounter for immunization Z 23 [facility] [address] [facility] [id number] [address] [place] [phone] Aug, Type 1 diabetes mellitus wit h hyperglycemia E10.65 [facility] [address] [facility] [id number] [address] [place] [address] Jul, Type 1 diabetes mellitus wit h hyperglycemia E10.65 [place] [address] [id number] [address] [place] [address] Jul, Type 1 diabetes mellitus wit h hyperglycemia E10.65 [facility] [address] [id number] [address] [place] [address] May, Type 1 diabetes mellitus wit h hyperglycemia E10.65 [facility] [address] [id number] [address] [place] [phone] May, [facility] [address] [id number] [address] [place] [address] Apr, [facility] [address] [id number] [address] [place] [phone] Apr, Type 1 diabetes mellitus wit h hyperglycemia E10.65 [facility] [address] [id number] [address] [place] [address] March, [facility] [address] [id number] [address] [place] [phone] March, [facility] [address] [id number] [address] [place] [address] Jan, [facility] [address] [id number] [address] [place] [phone] Jan, [facility] [address] [facility] [id number] [address] [place] [id number] Jan, Type 1 diabetes mellitus wit h diabetic polyneuropathy E10.42 [facility] [address] [id number] [address] [place] [address] Jan, Type 1 diabetes mellitus wit h hyperglycemia E10.65 ; Excessive cerumen in both ear canals H61.23 and Controlled diabetes mellitus type 1 without complications E10.9 [facility] [address] [id number] [address] [place] [address] Dec, [facility] [address] [facility] [id number] [address] [place] [address] Dec, [facility] [address] [id number] [address] [place] [phone] Dec, [facility] [address] [id number] [address] [place] [phone] Dec, [facility] [address] [id number] [address] [place] [address] Nov, [facility] [address] [id number] [address] [place] [id number] Nov, [facility] [address] [id number] [address] [place] [address] Oct, Type 1 diabetes mellitus wit h hyperglycemia E10.65 [facility] [address] [id number] [address] [place] [phone] Sep, [facility] [address] [id number] [address] [place] [phone] Sep, [facility] [address] [id number] [address] [place] [address] Sep, Controlled diabetes mellitus type 1 without complications E10.9 [facility] [address] [id number] [address] [place] [address] Sep, [facility] [address] [id number] [address] [place] [id number] Aug, Dental caries K02.9 [facility] [address] [id number] [address] [place] [id number] Aug, Type 1 diabetes mellitus wit h diabetic polyneuropathy E10.42 [facility] [address] [id number] [address] [place] [phone] Aug, [facility] [address] [id number] [address] [place] [phone] Aug, [facility] [address] [id number] [address] [place] [address] Aug, [facility] [address] [id number] [address] [place] [address] Jul, Type 1 diabetes mellitus wit h hyperglycemia E10.65 [facility] [address] [id number] [address] [place] [address] Jul, Type 1 diabetes mellitus wit h hyperglycemia E10.65 ; Tooth pain K08.8 and Encounter for immunization Z23 [facility] [address] [id number] [address] [place] [id number] Jul, 2016 Dental examination Z01.20 [facility] [address] [id number] [address] [place] [id number] 08 Jul, 2016 [facility] [address] [id number] [address] [place] [id number] 07 Jul, 2016 [facility] [address] [id number] [address] [place] [address] Jul, [facility] [address] [id number] [address] [place] [phone] Jun, [facility] [address] [id number] [address] [place] [id number] May, [facility] [address] [id number] [address] [place] [id number] Apr, [facility] [address] [id number] [address] [place] [id number] Apr, [facility] [address] [id number] [address] [place] [id number] Apr, [facility] [address] [id number] [address] [place] [phone] March, [facility] [address] [id number] [address] [place] [address] March, [facility] [address] [id number] [address] [place] [phone] Feb, [facility] [address] [id number] [address] [place] [phone] Feb, [facility] [address] [facility] [id number] [address] [place] [id number] Feb, Type 1 diabetes mellitus wit h hyperglycemia E10.65 [facility] [address] [facility] [id number] [address] [place] [phone] Jan, [facility] [address] [facility] [id number] [address] [place] [phone] Jan, [facility] [address] [facility] [id number] [address] [place] [phone] Jan, [facility] [address] [facility] [id number] [address] [place] [phone] Jan, [facility] [address] [facility] [id number] [address] [place] [id number] Dec, [facility] [address] [facility] [id number] [address] [place] [phone] Nov, [facility] [address] [facility] [id number] [address] [place] [phone] Nov, [facility] [address] [facility] [id number] [address] [place] [id number] Oct, [facility] [address] [facility] [id number] [address] [place] [id number] 04 Oct, 2015 Type 1 diabetes mellitus wit h diabetic autonomic (poly)neuropathy E10.43 ; Type 1 diabetes mellitus with hyperglycemia E10.65 ; Gastroparesis K31.84 and Esophageal stricture K22.2 [facility] [address] [facility] [id number] [address] [place] [address] Oct, [facility] [address] [facility] [id number] [address] [place] [phone] Sep, [facility] [address] [facility] [id number] [address] [place] [id number] Sep, Type 1 diabetes mellitus wit h other diabetic neurological complication E10.49 [facility] [address] [facility] [id number] [address] [place] [id number] Aug, Encounter for immunization Z 23 [facility] [address] [id number] [address] [place] [id number] Aug, [facility] [address] [id number] [address] [place] [phone] Aug, [facility] [address] [id number] [address] [place] [id number] Jul, [facility] [address] [id number] [address] [place] [phone] Jul, [facility] [address] [id number] [address] [place] [phone] Jun, [facility] [address] [id number] [address] [place] [phone] Jun, [facility] [address] [id number] [address] [place] [phone] Jun, [facility] [address] [id number] [address] [place] [id number] May, [facility] [address] [id number] [address] [place] [address] May, [facility] [address] [id number] [address] [place] [id number] May, Diabetes type 1, controlled 250.01 [facility] [address] [id number] [address] [place] [phone] May, [facility] [address] [id number] [address] [place] [phone] May, [facility] [address] [id number] [address] [place] [id number] Apr, Dental examination V72.2 [facility] [address] [id number] [address] [place] [phone] Apr, [facility] [address] [id number] [address] [place] [phone] Apr, [facility] [address] [id number] [address] [place] [phone] Apr, [facility] [address] [id number] [address] [place] [phone] Apr, [facility] [address] [id number] [address] [place] [phone] Apr, [facility] [address] [id number] [address] [place] [address] [id number] Apr, Dental examination V72.2 [facility] [address] [id number] [address] [place] [phone] Apr, [facility] [address] [id number] [address] [place] [phone] Apr, [facility] [address] [id number] [address] [place] [phone] March, Diabetes mellitus type 1 250 .01 [facility] [address] [id number] [address] [place] [id number] March, [facility] [address] [id number] [address] [place] [phone] Feb, [facility] [address] [id number] [address] [place] [phone] Feb, [facility] [address] [id number] [address] [place] [phone] Jan, [facility] [address] [id number] [address] [place] [phone] Jan, [facility] [address] [id number] [address] [place] [phone] Jan, [facility] [address] [id number] [address] [place] [phone] Jan, [facility] [address] [id number] [address] [place] [id number] Dec, [facility] [address] [id number] [address] [place] [address], [place] [address] Dec, [facility] [address] [id number] [address] [place] [address], [place] [address] Nov, [facility] [address] [id number] [address] [place] [address], [place] [address] Nov, [facility] [address] [id number] [address] [place] [address], [place] [address] Nov, [facility] [address] [id number] [address] [place] [address], [place] [address] Nov, [facility] [address] [id number] [address] [place] [address], [place] [address] Nov, [facility] [address] [id number] [address] [place] [address], [place] [address] Nov, [facility] [address] [id number] [address] [place] [address], [place] [address] Nov, [facility] [address] [id number] [address] [place] [address], [place] [address] Oct, [facility] [address] [id number] [address] [place] [address], [place] [address] Oct, [facility] [address] [id number] [address] [place] [address], [place] [address] Sep, [facility] [address] [id number] [address] [place] [address], [place] [address] Aug, [facility] [address] [id number] [address] [place] [address], [place] [address] Aug, [facility] [address] [id number] [address] [place] [address], [place] [address] Aug, [facility] [address] [id number] [address] [place] [address], [place] [address] Aug, [facility] [address] [id number] [address] [place] [address], [place] [address] Aug, [facility] [address] [id number] [address] [place] [address], [place] [address] Aug, [facility] [address] [id number] [address] [place] [address], [place] [address] Aug, [facility] [address] [id number] [address] [place] [address], [place] [address] Aug, [facility] [address] [id number] [address] [place] [address], [place] [address] Aug, [facility] [address] [id number] [address] [place] [address], [place] [address] Aug, [facility] [address] [id number] [address] [place] [address], [place] [address] Aug, [facility] [address] [id number] [address] [place] [address], [place] [address] Aug, [facility] [address] [id number] [address] [place] [address], [place] [address] Aug, [facility] [address] [id number] [address] [place] [address], [place] [address] Aug, [facility] [address] [id number] [address] [place] [address], [place] [address] Jul, [facility] [address] [id number] [address] [place] [address], [place] [address] Jul, [facility] [address] [id number] [address] [place] [phone] Jul, [facility] [address] [id number] [address] [place] [address], [place] [address] Jul, [facility] [address] [id number] [address] [place] [address], [place] [address] Jun, [facility] [address] [id number] [address] [place] [address], [place] [address] Jun, [facility] [address] [id number] [facility] [place] [address] Jun, [facility] [address] [id number] [address] [place] [address], [place] [address] Jun, [facility] [address] [id number] [address] [place] [address], [place] [address] May, [facility] [address] [id number] [address] [place] [address], [place] [address] May, [facility] [address] [id number] [address] [place] [address], [place] [address] May, [facility] [address] [id number] [address] [place] [address], [place] [address] May, [facility] [address] [id number] [address] [place] [address], [place] [address] May, [facility] [address] [id number] [address] [place] [address], [place] [address] May, [facility] [address] [id number] [address] [place] [address], [place] [address] May, [facility] [address] [id number] [address] [place] [address], [place] [address] May, [facility] [address] [id number] [address] [place] [address], [place] [address] May, [facility] [address] [id number] [address] [place] [address], [place] [address] May, [facility] [address] [id number] [address] [place] [address], [place] [address] May, [facility] [address] [id number] [address] [place] [address], [place] [address] May, [facility] [address] [id number] [address] [place] [address], [place] [address] May, [facility] [address] [id number] [address] [place] [address], [place] [address] Apr, [facility] [address] [id number] [facility] [place] [address] Apr, [facility] [address] [id number] [facility] [place] [address] Apr, [facility] [address] [id number] [facility] [place] [address] Apr, [facility] [address] [id number] [address] [place] [address], [place] [address] Apr, [facility] [address] [id number] [address] [place] [address], [place] [address] Apr, [facility] [address] [id number] [address] [place] [address], [place] [address] Apr, [facility] [address] [id number] [address] [place] [address], [place] [address] Apr, [facility] [address] [id number] [address] [place] [address], [place] [address] Apr, [facility] [address] [id number] [address] [place] [address], [place] [address] Apr, [facility] [address] [id number] [address] [place] [address], [place] [address] Apr, [facility] [address] [id number] [address] [place] [address], [place] [address] Apr, [facility] [address] [id number] [address] [place] [address], [place] [address] Apr, [facility] [address] [id number] [address] [place] [address], [place] [address] Apr, [facility] [address] [id number] [address] [place] [address], [place] [address] March, [facility] [address] [id number] [address] [place] [address], [place] [address] March, [facility] [address] [id number] [address] [place] [address], [place] [address] March, [facility] [address] [id number] [address] [place] [address], [place] [address] March, [facility] [address] [id number] [address] [place] [address], [place] [address] March, [facility] [address] [id number] [address] [place] [address], [place] [address] March, [facility] [address] [id number] [address] [place] [address], [place] [address] March, [facility] [address] [id number] [address] [place] [address], [place] [address] March, [facility] [address] [id number] [address] [place] [address], [place] [address] March, [facility] [address] [id number] [address] [place] [address], [place] [address] March, [facility] [address] [id number] [address] [place] [address], [place] [address] Feb, [facility] [address] [id number] [address] [place] [address], [place] [address] Feb, [facility] [address] [id number] [address] [place] [address], [place] [address] Feb, [facility] [address] [id number] [address] [place] [address], [place] [address] Feb, [facility] [address] [id number] [address] [place] [address], [place] [address] Feb, [facility] [address] [id number] [address] [place] [address], [place] [address] Feb, [facility] [address] [id number] [address] [place] [address], [place] [address] Feb, [facility] [address] [id number] [address] [place] [address], [place] [address] Feb, [facility] [address] [address] [id number] [address] [place] [address] 18 Jan, 2014 [facility] [address] [id number] [facility] [place] [address] Jan, [facility] [address] [id number] [facility] [place] [address] Jan, [facility] [address] [id number] [facility] [place] [address] Jan, [facility] [address] [id number] [address] [place] [address], [place] [address] Jan, [facility] [address] [id number] [address] [place] [address], [place] [address] Jan, [facility] [address] [id number] [address] [place] [address], [place] [address] Jan, [facility] [address] [id number] [address] [place] [address], [place] [address] Jan, [facility] [address] [id number] [address] [place] [address], [place] [address] Jan, [facility] [address] [id number] [address] [place] [address], [place] [address] Jan, [facility] [address] [id number] [address] [place] [address], [place] [address] Dec, [facility] [address] [id number] [address] [place] [address], [place] [address] Dec, [facility] [address] [id number] [address] [place] [address], [place] [address] Nov, [facility] [address] [id number] [address] [place] [address], [place] [address] Nov, [facility] [address] [id number] [address] [place] [address], [place] [address] Nov, [facility] [address] [id number] [address] [place] [address], [place] [address] Nov, [facility] [address] [id number] [address] [place] [address], [place] [address] Nov, [facility] [address] [id number] [address] [place] [address], [place] [address] Nov, [facility] [address] [id number] [address] [place] [address], [place] [address] Nov, [facility] [address] [id number] [address] [place] [address], [place] [address] Nov, [facility] [address] [id number] [address] [place] [address], [place] [address] Oct, [facility] [address] [id number] [address] [place] [address], [place] [address] Oct, [facility] [address] [id number] [address] [place] [address], [place] [address] Oct, [facility] [address] [id number] [address] [place] [address], [place] [address] Oct, [facility] [address] [id number] [address] [place] [address], [place] [address] Oct, [facility] [address] [id number] [address] [place] [address], [place] [address] Oct, [facility] [address] [id number] [address] [place] [address], [place] [address] Sep, [facility] [address] [id number] [address] [place] [address], [place] [address] Sep, [facility] [address] [id number] [address] [place] [address], [place] [address] Sep, [facility] [address] [id number] [address] [place] [address], [place] [address] Sep, [facility] [address] [id number] [address] [place] [address], [place] [address] 05 Sep, 2013 [facility] [address] [id number] [address] [place] [address], [place] [address] Aug, [facility] [address] [id number] [address] [place] [address], [place] [address] Aug, [facility] [address] [id number] [address] [place] [address], [place] [address] Aug, [facility] [address] [id number] [address] [place] [address], [place] [address] Aug, [facility] [address] [id number] [address] [place] [address], [place] [address] Aug, [facility] [address] [id number] [address] [place] [address], [place] [address] Aug, [facility] [address] [id number] [address] [place] [address], [place] [address] Jul, [facility] [address] [id number] [address] [place] [address], [place] [address] Jul, [facility] [address] [id number] [address] [place] [address], [place] [address] Jul, [facility] [address] [id number] [address] [place] [address], [place] [address] Jun, [facility] [address] [id number] [address] [place] [address], [place] [address] Jun, [facility] [address] [id number] [address] [place] [address], [place] [address] May, [facility] [address] [id number] [address] [place] [address], [place] [address] May, [facility] [address] [id number] [address] [place] [address], [place] [address] Apr, [facility] [address] [id number] [address] [place] [address], [place] [address] Apr, [facility] [address] [id number] [address] [place] [address], [place] [address] Apr, [facility] [address] [id number] [address] [place] [address], [place] [address] March, [facility] [address] [id number] [address] [place] [address], [place] [address] Feb, [facility] [address] [id number] [address] [place] [address], [place] [address] Feb, [facility] [address] [id number] [address] [place] [address], [place] [address] Jan, [facility] [address] [id number] [address] [place] [address], [place] [address] Jan, [facility] [address] [id number] [address] [place] [address], [place] [address] Jan, [facility] [address] [id number] [address] [place] [address], [place] [address] Jan, [facility] [address] [id number] [address] [place] [address], [place] [address] Jan, [facility] [address] [id number] [address] [place] [address], [place] [address] Dec, [facility] [address] [id number] [address] [place] [address], [place] [address] Dec, [facility] [address] [id number] [address] [place] [address], [place] [address] Dec, [facility] [address] [id number] [address] [place] [address], [place] [address] Dec, [facility] [address] [id number] [address] [place] [address], [place] [address] Dec, [facility] [address] [id number] [address] [place] [address], [place] [address] Dec, [facility] [address] [place] [id number] Nov, [facility] [address] [id number] [address] [place] [address] [place] [address] 11 Nov, 2012 [facility] [address] [id number] [address] [place] [address], [place] [address] Nov, [facility] [address] [id number] [address] [place] [address], [place] [address] Nov, [facility] [address] [id number] [address] [place] [address], [place] [address] Nov, [facility] [address] [id number] [address] [place] [address], [place] [address] Oct, [facility] [address] [id number] [address] [place] [address], [place] [address] Oct, [facility] [address] [id number] [address] [place] [address], [place] [address] Oct, [facility] [address] [id number] [address] [place] [address], [place] [address] Oct, [facility] [address] [id number] [address] [place] [address], [place] [address] Oct, [facility] [address] [id number] [address] [place] [address], [place] [address] Oct, [facility] [address] [id number] [address] [place] [address], [place] [address] Oct, [facility] [address] [id number] [address] [place] [address], [place] [address] Oct, [facility] [address] [id number] [address] [place] [address], [place] [address] Sep, [facility] [address] [id number] [address] [place] [address], [place] [address] Sep, [facility] [address] [id number] [address] [place] [address], [place] [address] Sep, [facility] [address] [id number] [address] [place] [address], [place] [address] Sep, [facility] [address] [id number] [address] [place] [address] Sep, [facility] [address] [id number] [address] [place] [address] Sep, [facility] [address] [id number] [address] [place] [address] Sep, [facility] [address] [id number] [address] [place] [address] Sep, [facility] [address] [id number] [address] [place] [address] Sep, [facility] [address] [id number] [address] [place] [address] Sep, [facility] [address] [id number] [address] [place] [address] Sep, [facility] [address] [id number] [address] [place] [address] Sep, [facility] [address] [id number] [address] [place] [address] Sep, [facility] [address] [id number] [address] [place] [address] Sep, [facility] [address] [id number] [address] [place] [address] Sep, [facility] [address] [id number] [address] [place] [address] Sep, IMMUNIZATIONS No Known Immunizations SOCIAL HISTORY [...]
--- OUTSIDE RECORDS SUMMARY | 2020-04-17 21:51 | XMS REPORT | Continuity of Care Document ---
Demographics Preferred Language Unknown Marital Status Unknown Yarsani Affiliation Unknown Race Unknown Ethnic Group Unknown Author Organization Unknown Address Unknown Phone Unavailable Allergies Active Description Code Type Severity Reaction Onset Reported/Identified Relationship to Patient Clinical Status Yes ciprofloxacin HCl [id number] Drug Allergy Moderate SWELLING 03/08/2012 Yes SULFA SULFA Mild N/A 03/08/2012 Yes Cipro Drug Allergy N/A N/A 10/11/2012 Yes Sulfa(Sulfonamide Antibiotics) Drug Allergy N/A N/A 10/11/2012 Yes Cipro Drug Allergy 10/11/2012 Yes Sulfa(Sulfonamide Antibiotics) Drug Allergy 10/11/2012 Yes ciprofloxacin [id number] Edwin g Allergy Moderate SWELLING 11/24/2015 Yes Sulfa (Sulfonamide Antibiotics) [id number] Drug Allergy Moderate RASH/HIVES 11/24/2015 Medications There is no data. 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 03/09/2012 Ot 357.2 NEUR OPATHY IN DIABETES 03/09/2012 Ot 401.9 HYPE RTENSION NOS 03/09/2012 Ot 536.2 PERS ISTENT VOMITING 03/09/2012 Ot 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 03/09/2012 Ot 583.81 NEP HRITIS NOS IN OTH DIS 03/09/2012 Ot 584.9 ACUT E RENAL FAILURE, UNSPECIFIED 03/09/2012 Ot V58.67 YOAN G-TERM (CURRENT) USE OF INSULIN 04/02/2012 Ot 250.60 BOO B W NEURO MANIFEST, TYPE II OR UNSPEC 04/02/2012 Ot 276.50 VOL UME DEPLETION, UNSPECIFIED 04/02/2012 Ot 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 04/02/2012 Ot 787.03 VOM ITING ALONE 04/02/2012 Ot V58.67 YOAN G-TERM (CURRENT) USE OF INSULIN 04/03/2012 Ot 250.60 BOO B W NEURO MANIFEST, TYPE II OR UNSPEC 04/03/2012 Ot 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 04/03/2012 Ot 787.03 VOM ITING ALONE 04/03/2012 Ot V58.67 YOAN G-TERM (CURRENT) USE OF INSULIN 05/21/2012 Ot 250.61 BOO B W NEURO MANIFEST, TYPE I [JUVENILE 05/21/2012 Ot 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 05/21/2012 Ot 787.02 NERY SEA ALONE 05/21/2012 Ot V58.67 YOAN G-TERM (CURRENT) USE OF INSULIN 05/29/2012 Ot 521.00 UNS PEC DENTAL CARIES 05/29/2012 Ot 522.5 RAHSAWN APICAL ABSCESS 05/29/2012 Ot 525.9 DENT AL DISORDER NOS 07/01/2012 Ot 250.61 BOO B W NEURO MANIFEST, TYPE I [JUVENILE 07/01/2012 Ot 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 07/01/2012 Ot 787.02 NERY SEA ALONE 07/01/2012 Ot V58.67 YOAN G-TERM (CURRENT) USE OF INSULIN 07/01/2012 Ot V58.69 OTH MED,LT,CURRENT USE 07/02/2012 Ot 250.61 BOO B W NEURO MANIFEST, TYPE I [JUVENILE 07/02/2012 Ot 276.50 VOL UME DEPLETION, UNSPECIFIED 07/02/2012 Ot 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 07/02/2012 Ot 787.03 VOM ITING ALONE 07/02/2012 Ot 789.06 ABD OMINAL PAIN, EPIGASTRIC 07/02/2012 Ot V58.67 YOAN G-TERM (CURRENT) USE OF INSULIN 07/02/2012 Ot V58.69 OTH MED,LT,CURRENT USE 07/03/2012 Ot 250.61 BOO B W NEURO MANIFEST, TYPE I [JUVENILE 07/03/2012 Ot 300.00 ANX IETY STATE NOS 07/03/2012 Ot 311 DEPRES SIVE DISORDER NEC 07/03/2012 Ot 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, UNSPEC, W CHR KD ST 07/03/2012 Ot 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 07/03/2012 Ot 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, UNSPECIFIED 09/14/2012 Ot 250.61 BOO B W NEURO MANIFEST, TYPE I [JUVENILE 09/14/2012 Ot 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 09/14/2012 Ot 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 09/14/2012 Ot 401.9 HYPE RTENSION NOS 09/14/2012 Ot 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 09/14/2012 Ot 787.02 NERY SEA ALONE 09/14/2012 Ot V15.81 HX OF PAST NONCOMPLIANCE 09/14/2012 Ot V58.67 YOAN G-TERM (CURRENT) USE OF INSULIN 09/14/2012 Ot V58.69 OTH MED,LT,CURRENT USE 09/22/2012 HUNTER ESPOSITO DO 250.51 TYPE 1 DIABETES WITH DIABETIC RETINOPATHY 09/22/2012 HUNTER ESPOSITO DO 305.1 NICOTINE DEPENDENCE 09/22/2012 HUNTER ESPOSITO DO 536.3 GASTROPARESIS 09/22/2012 HUNTER ESPOSITO DO V04.81 FLU DX (3 YRS AND ABOVE, IM) 09/22/2012 HUNTER ESPOSITO DO V58.81 FITTING AND ADJUSTMENT OF VASCULAR CATHETER 09/22/2012 CHANG NORWOOD MD 250.5 1 TYPE 1 DIABETES WITH DIABETIC RETINOPATHY 09/22/2012 CHANG NORWOOD MD 305.1 NICOTINE DEPENDENCE 09/22/2012 CHANG NORWOOD MD 536.3 GASTROPARESIS 09/22/2012 CHANG NORWOOD MD V04.8 1 FLU DX (3 YRS AND ABOVE, IM) 09/22/2012 CHANG NORWOOD MD V58.8 1 FITTING AND ADJUSTMENT OF VASCULAR CATHETER 09/22/2012 LAURO RAZA MD 250.51 TYPE 1 DIABETES WITH DIABETIC RETINOPATHY 09/22/2012 LAURO RAZA MD 30 5.1 NICOTINE DEPENDENCE 09/22/2012 LAURO RAZA MD 53 6.3 GASTROPARESIS 09/22/2012 LAURO RAZA MD V04.81 FLU DX (3 YRS AND ABOVE, IM) 09/22/2012 LAURO RAZA MD V58.81 FITTING AND ADJUSTMENT OF VASCULAR CATHETER 09/22/2012 HUERTER MD, CHANG 250.5 1 TYPE 1 DIABETES WITH DIABETIC RETINOPATHY 09/22/2012 CHANG NORWOOD MD 305.1 NICOTINE DEPENDENCE 09/22/2012 CHANG NORWOOD MD 536.3 GASTROPARESIS 09/22/2012 CHANG NORWOOD MD V04.8 1 FLU DX (3 YRS AND ABOVE, IM) 09/22/2012 CHANG NORWOOD MD V58.8 1 FITTING AND ADJUSTMENT OF VASCULAR CATHETER 09/22/2012 250.51 TYP E 1 DIABETES WITH DIABETIC RETINOPATHY 09/22/2012 305.1 BRANDI JOEY DEPENDENCE 09/22/2012 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 09/22/2012 V04.81 FLU DX (3 YRS AND ABOVE, IM) 09/22/2012 V58.81 FIT TING AND ADJUSTMENT OF VASCULAR CATHETER 09/22/2012 250.51 TYP E 1 DIABETES WITH DIABETIC RETINOPATHY 09/22/2012 305.1 BRANDI JOEY DEPENDENCE 09/22/2012 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 09/22/2012 V04.81 FLU DX (3 YRS AND ABOVE, IM) 09/22/2012 V58.81 FIT TING AND ADJUSTMENT OF VASCULAR CATHETER 09/22/2012 250.51 TYP E 1 DIABETES WITH DIABETIC RETINOPATHY 09/22/2012 305.1 BRANDI JOEY DEPENDENCE 09/22/2012 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 09/22/2012 V04.81 FLU DX (3 YRS AND ABOVE, IM) 09/22/2012 V58.81 FIT TING AND ADJUSTMENT OF VASCULAR CATHETER 09/22/2012 AB WAHL MD 250.51 TYPE 1 DIABETES WITH DIABETIC RETINOPATHY 09/22/2012 AB WAHL MD 305.1 NICOTINE DEPENDENCE 09/22/2012 AB WAHL MD 536.3 GASTROPARESIS 09/22/2012 AB WAHL MD V04.81 FLU DX (3 YRS AND ABOVE, IM) 09/22/2012 AB WAHL MD V58.81 FITTING AND ADJUSTMENT OF VASCULAR CATHETER 09/22/2012 AB WAHL MD 250.51 TYPE 1 DIABETES WITH DIABETIC RETINOPATHY 09/22/2012 AB WAHL MD 305.1 NICOTINE DEPENDENCE 09/22/2012 AB WAHL MD 536.3 GASTROPARESIS 09/22/2012 AB WAHL MD V04.81 FLU DX (3 YRS AND ABOVE, IM) 09/22/2012 AB WAHL MD V58.81 FITTING AND ADJUSTMENT OF VASCULAR CATHETER 09/22/2012 CHANG NORWOOD MD 250.5 1 TYPE 1 DIABETES WITH DIABETIC RETINOPATHY 09/22/2012 CHANG NORWOOD MD 305.1 NICOTINE DEPENDENCE 09/22/2012 CHANG NORWOOD MD 536.3 GASTROPARESIS 09/22/2012 CHANG NORWOOD MD V04.8 1 FLU DX (3 YRS AND ABOVE, IM) 09/22/2012 CHANG NORWOOD MD V58.8 1 FITTING AND ADJUSTMENT OF VASCULAR CATHETER 09/22/2012 DINO RIZOSLUIS A 250.51 TYPE 1 DIABETES WITH DIABETIC RETINOPATHY 09/22/2012 WHITE DDSLUIS A D 30 5.1 NICOTINE DEPENDENCE 09/22/2012 WHITE DDSLUIS A D 53 6.3 GASTROPARESIS 09/22/2012 WHITE DDSLUIS A V04.81 FLU DX (3 YRS AND ABOVE, IM) 09/22/2012 DINO RIZOSLUIS A V58.81 FITTING AND ADJUSTMENT OF VASCULAR CATHETER 09/22/2012 HUNTER ESPOSITO DO K 250.51 TYPE 1 DIABETES WITH DIABETIC RETINOPATHY 09/22/2012 NICOLA ESPOSITO DOA K 305.1 NICOTINE DEPENDENCE 09/22/2012 NICOLA ESPOSITO DOA K 536.3 GASTROPARESIS 09/22/2012 NICOLA ESPOSITO DOA K V04.81 FLU DX (3 YRS AND ABOVE, IM) 09/22/2012 NICOLA ESPOSITO DOA K V58.81 FITTING AND ADJUSTMENT OF VASCULAR CATHETER 09/22/2012 BISMARK PATIÑO APRN 250.51 TYPE 1 DIABETES WITH DIABETIC RETINOPATHY 09/22/2012 BISMARK PATIÑO APRN 30 5.1 NICOTINE DEPENDENCE 09/22/2012 BISMARK PATIÑO APRN 53 6.3 GASTROPARESIS 09/22/2012 BISMARK PATIÑO APRN V04.81 FLU DX (3 YRS AND ABOVE, IM) 09/22/2012 BISMARK PATIÑO APRN V58.81 FITTING AND ADJUSTMENT OF VASCULAR CATHETER 09/22/2012 BISMARK PATIÑO APRN 250.51 TYPE 1 DIABETES WITH DIABETIC RETINOPATHY 09/22/2012 BISMARK PATIÑO APRN 30 5.1 NICOTINE DEPENDENCE 09/22/2012 BISMARK PATIÑO APRN 53 6.3 GASTROPARESIS 09/22/2012 BISMARK PATIÑO APRN V04.81 FLU DX (3 YRS AND ABOVE, IM) 09/22/2012 BISMARK PATIÑO APRN V58.81 FITTING AND ADJUSTMENT OF VASCULAR CATHETER 09/22/2012 DINO DDSLUIS A D 250.51 TYPE 1 DIABETES WITH DIABETIC RETINOPATHY 09/22/2012 WHITE DDS, LUIS A D 30 5.1 NICOTINE DEPENDENCE 09/22/2012 WHITE DDS, LUIS A D 53 6.3 GASTROPARESIS 09/22/2012 WHITE DDS, LUIS A D V04.81 FLU DX (3 YRS AND ABOVE, IM) 09/22/2012 WHITE DDS, LUIS A D V58.81 FITTING AND ADJUSTMENT OF VASCULAR CATHETER 09/22/2012 AYSE FUNEZ DDS 250.51 TYPE 1 DIABETES WITH DIABETIC RETINOPATHY 09/22/2012 DEE DEE RIZOSAYSE 30 5.1 NICOTINE DEPENDENCE 09/22/2012 DEE DEE RIZOSAYSE 53 6.3 GASTROPARESIS 09/22/2012 DEE DEE RIZOSAYSE V04.81 FLU DX (3 YRS AND ABOVE, IM) 09/22/2012 DEE DEE RIZOSAYSE V58.81 FITTING AND ADJUSTMENT OF VASCULAR CATHETER 09/22/2012 BISMARK PATIÑO APRN 250.51 TYPE 1 DIABETES WITH DIABETIC RETINOPATHY 09/22/2012 BISMARK PATIÑO APRN 30 5.1 NICOTINE DEPENDENCE 09/22/2012 BISMARK PATIÑO APRN 53 6.3 GASTROPARESIS 09/22/2012 BISMARK PATIÑO APRN V04.81 FLU DX (3 YRS AND ABOVE, IM) 09/22/2012 BISMARK PATIÑO APRN V58.81 FITTING AND ADJUSTMENT OF VASCULAR CATHETER 09/22/2012 BISMARK PATIÑO APRN 250.51 TYPE 1 DIABETES WITH DIABETIC RETINOPATHY 09/22/2012 BISMARK PATIÑO APRN 30 5.1 NICOTINE DEPENDENCE 09/22/2012 BISMARK PATIÑO APRN 53 6.3 GASTROPARESIS 09/22/2012 BISMARK PATIÑO APRN V04.81 FLU DX (3 YRS AND ABOVE, IM) 09/22/2012 BISMARK PATIÑO APRN V58.81 FITTING AND ADJUSTMENT OF VASCULAR CATHETER 09/22/2012 BISMARK PATIÑO APRN 250.51 TYPE 1 DIABETES WITH DIABETIC RETINOPATHY 09/22/2012 BISMARK PATIÑO APRN 30 5.1 NICOTINE DEPENDENCE 09/22/2012 BISMARK PATIÑO APRN 53 6.3 GASTROPARESIS 09/22/2012 BISMARK PATIÑO APRN V04.81 FLU DX (3 YRS AND ABOVE, IM) 09/22/2012 BISMARK PATIÑO APRN V58.81 FITTING AND ADJUSTMENT OF VASCULAR CATHETER 09/22/2012 BISMARK PATIÑO APRN 250.51 TYPE 1 DIABETES WITH DIABETIC RETINOPATHY 09/22/2012 BISMARK PATIÑO APRN 30 5.1 NICOTINE DEPENDENCE 09/22/2012 BISMARK PATIÑO APRN 53 6.3 GASTROPARESIS 09/22/2012 BISMARK PATIÑO APRN V04.81 FLU DX (3 YRS AND ABOVE, IM) 09/22/2012 BISMARK PATIÑO APRN V58.81 FITTING AND ADJUSTMENT OF VASCULAR CATHETER 09/22/2012 BISMARK PATIÑO APRN 250.51 TYPE 1 DIABETES WITH DIABETIC RETINOPATHY 09/22/2012 BISMARK PATIÑO APRN 30 5.1 NICOTINE DEPENDENCE 09/22/2012 BISMARK PATIÑO APRN 53 6.3 GASTROPARESIS 09/22/2012 BISMARK PATIÑO APRN V04.81 FLU DX (3 YRS AND ABOVE, IM) 09/22/2012 BISMARK PATIÑO APRN V58.81 FITTING AND ADJUSTMENT OF VASCULAR CATHETER 09/22/2012 BISMARK PATIÑO APRN 250.51 TYPE 1 DIABETES WITH DIABETIC RETINOPATHY 09/22/2012 BISMARK PATIÑO APRN 30 5.1 NICOTINE DEPENDENCE 09/22/2012 BISMARK PATIÑO APRN 53 6.3 GASTROPARESIS 09/22/2012 BISMARK PATIÑO APRN V04.81 FLU DX (3 YRS AND ABOVE, IM) 09/22/2012 BISMARK PATIÑO APRN V58.81 FITTING AND ADJUSTMENT OF VASCULAR CATHETER 10/23/2012 HUNTER ESPOSITO DO 250.63 DIABETES W/ NEUROPATHY, TYPE 1 - UNCONTROLLED 10/23/2012 CHANG NORWOOD MD 250.6 3 DIABETES W/ NEUROPATHY, TYPE 1 - UNCONTROLLED 10/23/2012 RY HOBSON, LAURO [place] 250.63 DIABETES WITH NEUROLOGICAL COMPLICATIONS TYPE 1 UNCONT ROLLED 10/23/2012 CHANG NORWOOD MD 250.6 3 DIABETES WITH NEUROLOGICAL COMPLICATIONS TYPE 1 UNCONTROLLED 10/23/2012 250.63 BOO BETES WITH NEUROLOGICAL COMPLICATIONS TYPE 1 UNCONTROLLED 10/23/2012 250.63 BOO BETES WITH NEUROLOGICAL COMPLICATIONS TYPE 1 UNCONTROLLED 10/23/2012 250.63 BOO BRENNEN WITH NEUROLOGICAL COMPLICATIONS TYPE 1 UNCONTROLLED 10/23/2012 AB WAHL MD 250.63 DIABETES WITH NEUROLOGICAL COMPLICATIONS TYPE 1 UNCONT ROLLED 10/23/2012 AB WAHL MD 250.63 DIABETES WITH NEUROLOGICAL COMPLICATIONS TYPE 1 UNCONT ROLLED 10/23/2012 CHANG NORWOOD MD 250.6 3 DIABETES WITH NEUROLOGICAL COMPLICATIONS TYPE 1 UNCONTROLLED 10/23/2012 DINO DDS, LUIS A Tucker 250.63 DIABETES WITH NEUROLOGICAL COMPLICATIONS TYPE 1 UNCONT ROLLED 10/23/2012 HUNTER ESPOSITO DO 250.63 DIABETES WITH NEUROLOGICAL COMPLICATIONS TYPE 1 UNCONTROLLED 10/23/2012 BISMARK PATIÑO APRN 250.63 DIABETES WITH NEUROLOGICAL COMPLICATIONS TYPE 1 UNCONT ROLLED 10/23/2012 BISMARK PATIÑO APRN 250.63 DIABETES WITH NEUROLOGICAL COMPLICATIONS TYPE 1 UNCONT ROLLED 10/23/2012 DINO RIZOS, LUIS A Tucker 250.63 DIABETES WITH NEUROLOGICAL COMPLICATIONS TYPE 1 UNCONT ROLLED 10/23/2012 AYSE FUNEZ DDS 250.63 DIABETES WITH NEUROLOGICAL COMPLICATIONS TYPE 1 UNCONT ROLLED 10/23/2012 BISMARK PATIÑO APRN 250.63 DIABETES WITH NEUROLOGICAL COMPLICATIONS TYPE 1 UNCONT ROLLED 10/23/2012 BISMARK PATIÑO APRN 250.63 DIABETES WITH NEUROLOGICAL COMPLICATIONS TYPE 1 UNCONT ROLLED 10/23/2012 BISMARK PATIÑO APRN 250.63 DIABETES WITH NEUROLOGICAL COMPLICATIONS TYPE 1 UNCONT ROLLED 10/23/2012 BISMARK PATIÑO APRN 250.63 DIABETES WITH NEUROLOGICAL COMPLICATIONS TYPE 1 UNCONT ROLLED 10/23/2012 BISMARK PATIÑO APRN 250.63 DIABETES WITH NEUROLOGICAL COMPLICATIONS TYPE 1 UNCONT ROLLED 10/23/2012 BISMARK PATIÑO APRN 250.63 DIABETES WITH NEUROLOGICAL COMPLICATIONS TYPE 1 UNCONT ROLLED 11/22/2012 Ot 250.60 BOO B W NEURO MANIFEST, TYPE II OR UNSPEC 11/22/2012 Ot 459.81 TED OUS INSUFFICIENCY NOS 11/22/2012 Ot 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 12/01/2012 LAURO RAZA MD 300.00 anxiety 12/01/2012 LAURO RAZA MD 40 1.1 ESSENTIAL HYPERTENSION BENIGN 12/01/2012 CHANG NORWOOD MD 300.0 0 anxiety 12/01/2012 CHANG NORWOOD MD 401.1 ESSENTIAL HYPERTENSION BENIGN 12/01/2012 300.00 anxiety 12/01/2012 401.1 ESSE NTIAL HYPERTENSION BENIGN 12/01/2012 300.00 anxiety 12/01/2012 401.1 ESSE NTIAL HYPERTENSION BENIGN 12/01/2012 300.00 anxiety 12/01/2012 401.1 ESSE NTIAL HYPERTENSION BENIGN 12/01/2012 VISH HOBSON, AB M 300.00 anxiety 12/01/2012 VISH HOBSON, AB [place] 401.1 ESSENTIAL HYPERTENSION BENIGN 12/01/2012 AB WAHL MD M 300.00 anxiety 12/01/2012 VISH HOBSON, AB M 401.1 ESSENTIAL HYPERTENSION BENIGN 12/01/2012 CHANG NORWOOD MD 300.0 0 anxiety 12/01/2012 CHANG NORWOOD MD 401.1 ESSENTIAL HYPERTENSION BENIGN 12/01/2012 WHITE DDS, LUIS A D 300.00 anxiety 12/01/2012 WHITE DDS, LUIS A D 40 1.1 ESSENTIAL HYPERTENSION BENIGN 12/01/2012 ESPOSITO DO, HUNTER K 300.00 anxiety 12/01/2012 ESPOSITO DO, HUNTER K 401.1 ESSENTIAL HYPERTENSION BENIGN 12/01/2012 BISMARK PATIÑO APRN T 300.00 anxiety 12/01/2012 HAROON TEAGUE BISMARK T 40 1.1 ESSENTIAL HYPERTENSION BENIGN 12/01/2012 BISMARK PATIÑO APRN T 300.00 anxiety 12/01/2012 HAROON TAEGUE BISMARK T 40 1.1 ESSENTIAL HYPERTENSION BENIGN 12/01/2012 WHITE DDS, LUIS A D 300.00 anxiety 12/01/2012 WHITE DDS, LUIS A D 40 1.1 ESSENTIAL HYPERTENSION BENIGN 12/01/2012 FUNEZ DDS, AYSE 300.00 anxiety 12/01/2012 FUNEZ DDS, AYSE 40 1.1 ESSENTIAL HYPERTENSION BENIGN 12/01/2012 BISMARK PATIÑO APRN T 300.00 anxiety 12/01/2012 HAROON TEAGUE BISMARK T 40 1.1 ESSENTIAL HYPERTENSION BENIGN 12/01/2012 HAROON TEAGUE BISMARK T 300.00 anxiety 12/01/2012 HAROON TEAGUE BISMARK T 40 1.1 ESSENTIAL HYPERTENSION BENIGN 12/01/2012 BISMARK PATIÑO APRN T 300.00 anxiety 12/01/2012 HAROON TEAGUE BISMARK T 40 1.1 ESSENTIAL HYPERTENSION BENIGN 12/01/2012 BISMARK PATIÑO APRN T 300.00 anxiety 12/01/2012 BISMARK PATIÑO APRN T 40 1.1 ESSENTIAL HYPERTENSION BENIGN 12/01/2012 BISMARK PATIÑO APRN T 300.00 anxiety 12/01/2012 BISMARK PATIÑO APRN T 40 1.1 ESSENTIAL HYPERTENSION BENIGN 12/01/2012 BISMARK PATIÑO APRN T 300.00 anxiety 12/01/2012 BISMARK PATIÑO APRN T 40 1.1 ESSENTIAL HYPERTENSION BENIGN 01/21/2013 Ot 459.81 TED OUS INSUFFICIENCY NOS 01/21/2013 Ot 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 03/27/2013 AB WAHL MD Ot 536.3 GASTROPARESIS 03/27/2013 AB WAHL MD Ot V58.81 FIT/ADJ VASCULAR CATHETER 05/16/2013 AB WAHL MD Ot 536.3 GASTROPARESIS 08/09/2013 AB WAHL MD 727.00 SYNOVITIS AND TENOSYNOVITIS UNSPECIFIED 08/09/2013 AB WAHL MD 727.00 SYNOVITIS AND TENOSYNOVITIS UNSPECIFIED 08/09/2013 CUCO HOBSON, CHANG 727.0 0 SYNOVITIS AND TENOSYNOVITIS UNSPECIFIED 08/09/2013 DINO GRIJALVA, LUIS A Tucker 727.00 SYNOVITIS AND TENOSYNOVITIS UNSPECIFIED 08/09/2013 HUNTER ESPOSITO DO 727.00 SYNOVITIS AND TENOSYNOVITIS UNSPECIFIED 08/09/2013 BISMARK PATIÑO APRN T 727.00 SYNOVITIS AND TENOSYNOVITIS UNSPECIFIED 08/09/2013 BISMARK PATIÑO APRN 727.00 SYNOVITIS AND TENOSYNOVITIS UNSPECIFIED 08/09/2013 DINO RIZOS, LUIS A Tucker 727.00 SYNOVITIS AND TENOSYNOVITIS UNSPECIFIED 08/09/2013 AYSE FUNEZ DDS 727.00 SYNOVITIS AND TENOSYNOVITIS UNSPECIFIED 08/09/2013 BISMARK PATIÑO APRN T 727.00 SYNOVITIS AND TENOSYNOVITIS UNSPECIFIED 08/09/2013 BISMARK PATIÑO APRN T 727.00 SYNOVITIS AND TENOSYNOVITIS UNSPECIFIED 08/09/2013 BISMARK PATIÑO APRN 727.00 SYNOVITIS AND TENOSYNOVITIS UNSPECIFIED 08/09/2013 BISMARK PATIÑO APRN T 727.00 SYNOVITIS AND TENOSYNOVITIS UNSPECIFIED 08/09/2013 HAROON CLIP WRAPPER, BISMARK T 727.00 SYNOVITIS AND TENOSYNOVITIS UNSPECIFIED 08/09/2013 BISMARK PATIÑO APRN 727.00 SYNOVITIS AND TENOSYNOVITIS UNSPECIFIED 09/11/2013 VISH HOBSON, AB [place] Ot 536.3 GASTROPARESIS 10/14/2013 HODA KOTHARI CLIP WRAPPER Ot 727.05 TENOSYNOV HAND/WRIST NEC 10/14/2013 HODA KOTHARI CLIP WRAPPER Ot 729 .5 PAIN IN LIMB 12/12/2013 VISH HOBSON, AB [place] Ot 536.3 GASTROPARESIS 12/12/2013 VISH HOBSON, AB [place] Ot V58.81 FIT/ADJ VASCULAR CATHETER 05/26/2014 VISH HOBSON, AB [place] Ot 536.3 GASTROPARESIS 05/26/2014 VISH HOBSON, AB [place] Ot V58.81 FIT/ADJ VASCULAR CATHETER 08/26/2014 VISH HOBSON, AB [place] Ot 536.3 GASTROPARESIS 08/26/2014 VISH HOBSON, AB [place] Ot V58.81 FIT/ADJ VASCULAR CATHETER 10/24/2014 VISH HOBSON, AB [place] Ot 536.3 10/24/2014 VISH HOBSON, AB [place] Ot V58.81 11/20/2014 BA WAHL MD Ot 536.3 11/20/2014 VISH HOBSON, AB [place] Ot V58.81 11/22/2014 AB WAHL MD Ot 536.3 11/22/2014 VISH HOBSON, AB [place] Ot V58.81 12/22/2014 AB WAHL MD Ot 536.3 GASTROPARESIS 12/22/2014 AB WAHL MD Ot V58.81 FIT/ADJ VASCULAR CATHETER 12/27/2014 BISMARK PATIÑO NUCLEAR MEDICINE PET CT TECHNOLOGIST Ot 536.3 12/27/2014 BISMARK PATIÑOP Ot V58.81 12/27/2014 BISMARK PATIÑO Ot 536.3 12/27/2014 BISMARK PATIÑOP Ot V58.81 12/27/2014 BISMARK PATIÑO Ot 536.3 12/27/2014 BISMARK PATIÑO Ot V58.81 12/27/2014 BISMARK PATIÑOP Ot 536.3 12/27/2014 BISMARK PATIÑO Ot V58.81 12/30/2014 BISMARK PATIÑO NUCLEAR MEDICINE PET CT TECHNOLOGIST Ot 536.3 12/30/2014 BISMARK PATIÑO NUCLEAR MEDICINE PET CT TECHNOLOGIST Ot V58.81 01/02/2015 BISMARK PATIÑO NUCLEAR MEDICINE PET CT TECHNOLOGIST Ot 536.3 01/02/2015 BISMARK PATIÑO NUCLEAR MEDICINE PET CT TECHNOLOGIST Ot V58.81 02/17/2015 BISMARK PATIÑO NUCLEAR MEDICINE PET CT TECHNOLOGIST Ot 536.3 02/17/2015 BISMARK PATIÑO NUCLEAR MEDICINE PET CT TECHNOLOGIST Ot V58.81 02/28/2015 BISMARK PATIÑO NUCLEAR MEDICINE PET CT TECHNOLOGIST Ot 536.3 02/28/2015 BISMARK PATIÑO NUCLEAR MEDICINE PET CT TECHNOLOGIST Ot V58.81 03/27/2015 BISMARK PATIÑO NUCLEAR MEDICINE PET CT TECHNOLOGIST Ot 536.3 GASTROPARESIS 03/27/2015 BISMARK PATIÑO NUCLEAR MEDICINE PET CT TECHNOLOGIST Ot V58.81 FIT/ADJ VASCULAR CATHETER 03/28/2015 BISMARK PATIÑO NUCLEAR MEDICINE PET CT TECHNOLOGIST Ot 536.3 03/28/2015 BISMARK PATIÑO NUCLEAR MEDICINE PET CT TECHNOLOGIST Ot V58.81 03/28/2015 BISMARK PATIÑO NUCLEAR MEDICINE PET CT TECHNOLOGIST Ot 536.3 03/28/2015 BISMARK PATIÑO NUCLEAR MEDICINE PET CT TECHNOLOGIST Ot V58.81 03/28/2015 BISMARK PATIÑO NUCLEAR MEDICINE PET CT TECHNOLOGIST Ot 536.3 03/28/2015 BISMARK PATIÑO NUCLEAR MEDICINE PET CT TECHNOLOGIST Ot V58.81 03/31/2015 BISMARK PATIÑO NUCLEAR MEDICINE PET CT TECHNOLOGIST Ot 536.3 03/31/2015 BISMARK PATIÑO NUCLEAR MEDICINE PET CT TECHNOLOGIST Ot V58.81 04/25/2015 BISMARK PATIÑO NUCLEAR MEDICINE PET CT TECHNOLOGIST Ot 536.3 04/25/2015 BISMARK PATIÑO NUCLEAR MEDICINE PET CT TECHNOLOGIST Ot V58.81 05/14/2015 BISMARK PATIÑO NUCLEAR MEDICINE PET CT TECHNOLOGIST Ot 536.3 05/14/2015 BISMARK PATIÑO NUCLEAR MEDICINE PET CT TECHNOLOGIST Ot V58.81 05/27/2015 BISMARK PATIÑO NUCLEAR MEDICINE PET CT TECHNOLOGIST Ot 536.3 05/27/2015 BISMARK PATIÑO NUCLEAR MEDICINE PET CT TECHNOLOGIST Ot V58.81 05/30/2015 BISMARK PATIÑ[employer] NUCLEAR MEDICINE PET CT TECHNOLOGIST Ot 536.3 05/30/2015 [facility] [employer] NUCLEAR MEDICINE PET CT TECHNOLOGIST Ot V58.81 06/26/2015 [employer] [employer] NUCLEAR MEDICINE PET CT TECHNOLOGIST Ot 536.3 GASTROPARESIS 06/26/2015 [employer] [employer] NUCLEAR MEDICINE PET CT TECHNOLOGIST Ot V58.81 FIT/ADJ VASCULAR CATHETER 06/27/2015 Ot 250.61 06/27/2015 Ot 305.1 06/27/2015 Ot 536.3 06/27/2015 Ot 459.81 06/27/2015 Ot V72.81 06/27/2015 Ot V74.8 06/27/2015 Ot 250.51 06/27/2015 Ot 250.63 06/27/2015 Ot 300.00 06/27/2015 Ot 401.1 06/27/2015 Ot 250.01 06/27/2015 Ot 459.81 06/27/2015 Ot 536.3 06/27/2015 Ot 536.3 06/27/2015 Ot V58.81 06/27/2015 [employer] [employer] NUCLEAR MEDICINE PET CT TECHNOLOGIST Ot 536.3 06/27/2015 [employer] [employer] NUCLEAR MEDICINE PET CT TECHNOLOGIST Ot V58.81 06/27/2015 [employer] [employer] NUCLEAR MEDICINE PET CT TECHNOLOGIST Ot 536.3 06/27/2015 [employer] [employer] NUCLEAR MEDICINE PET CT TECHNOLOGIST Ot V58.81 06/27/2015 [employer] [employer] NUCLEAR MEDICINE PET CT TECHNOLOGIST Ot 536.3 06/27/2015 [employer] [employer] NUCLEAR MEDICINE PET CT TECHNOLOGIST Ot V58.81 06/27/2015 [employer] [employer] NUCLEAR MEDICINE PET CT TECHNOLOGIST Ot 536.3 06/27/2015 [employer] [employer] NUCLEAR MEDICINE PET CT TECHNOLOGIST Ot V58.81 06/30/2015 [facility] [employer] NUCLEAR MEDICINE PET CT TECHNOLOGIST Ot 536.3 06/30/2015 [facility] [employer] NUCLEAR MEDICINE PET CT TECHNOLOGIST Ot V58.81 06/30/2015 [employer] [employer] NUCLEAR MEDICINE PET CT TECHNOLOGIST Ot 536.3 06/30/2015 [employer] [employer] NUCLEAR MEDICINE PET CT TECHNOLOGIST Ot V58.81 07/01/2015 [employer] [employer] NUCLEAR MEDICINE PET CT TECHNOLOGIST Ot 536.3 07/01/2015 [employer] [employer] NUCLEAR MEDICINE PET CT TECHNOLOGIST Ot V58.81 07/01/2015 [employer] [employer] NUCLEAR MEDICINE PET CT TECHNOLOGIST Ot 536.3 07/01/2015 [employer] [employer] NUCLEAR MEDICINE PET CT TECHNOLOGIST Ot V58.81 07/25/2015 [employer] [employer] NUCLEAR MEDICINE PET CT TECHNOLOGIST Ot 536.3 07/25/2015 [employer] [employer] NUCLEAR MEDICINE PET CT TECHNOLOGIST Ot V58.81 08/12/2015 [employer] [employer] NUCLEAR MEDICINE PET CT TECHNOLOGIST Ot 536.3 08/12/2015 [employer] [employer] NUCLEAR MEDICINE PET CT TECHNOLOGIST Ot V58.81 08/20/2015 [employer] NUCLEAR MEDICINE PET CT TECHNOLOGIST Ot 536.3 GASTROPARESIS 08/20/2015 [employer] NUCLEAR MEDICINE PET CT TECHNOLOGIST Ot V58.81 FIT/ADJ VASCULAR CATHETER 08/22/2015 [employer] NUCLEAR MEDICINE PET CT TECHNOLOGIST Ot 536.3 08/22/2015 [employer] [employer] NUCLEAR MEDICINE PET CT TECHNOLOGIST Ot V58.81 08/22/2015 [employer] [employer] NUCLEAR MEDICINE PET CT TECHNOLOGIST Ot 536.3 08/22/2015 [employer] NUCLEAR MEDICINE PET CT TECHNOLOGIST Ot V58.81 08/22/2015 [employer] [employer] NUCLEAR MEDICINE PET CT TECHNOLOGIST Ot 536.3 08/22/2015 [employer] NUCLEAR MEDICINE PET CT TECHNOLOGIST Ot V58.81 09/26/2015 [employer] NUCLEAR MEDICINE PET CT TECHNOLOGIST Ot K31.84 09/26/2015 [employer] NUCLEAR MEDICINE PET CT TECHNOLOGIST Ot Z45.2 10/13/2015 [employer] [employer] NUCLEAR MEDICINE PET CT TECHNOLOGIST Ot K31.84 10/13/2015 [employer] [employer] NUCLEAR MEDICINE PET CT TECHNOLOGIST Ot Z45.2 10/24/2015 [employer] [employer] NUCLEAR MEDICINE PET CT TECHNOLOGIST Ot K31.84 10/24/2015 [employer] NUCLEAR MEDICINE PET CT TECHNOLOGIST Ot Z45.2 10/28/2015 [employer] NUCLEAR MEDICINE PET CT TECHNOLOGIST Ot K31.84 10/28/2015 [employer] NUCLEAR MEDICINE PET CT TECHNOLOGIST Ot Z45.2 11/18/2015 Ot 459.81 11/18/2015 Ot 536.3 11/18/2015 Ot 536.3 11/18/2015 Ot V58.81 11/20/2015 [employer] NUCLEAR MEDICINE PET CT TECHNOLOGIST Ot K31.84 GASTROPARESIS 11/20/2015 [employer] NUCLEAR MEDICINE PET CT TECHNOLOGIST Ot Z45.2 ENCOUNTER FOR ADJUSTMENT AND MANAGEMENT 11/24/2015 RY HOBSON, LAURO [place] Ot R13.10 11/24/2015 RY HOBSON, LAURO [place] Ot Z01.818 11/24/2015 RY HOBSON, LAURO [place] Ot K22.2 ESOPHAGEAL OBSTRUCTION 11/24/2015 RY HOBSON, LAURO [place] Ot K29.70 GASTRITIS, UNSPECIFIED, WITHOUT BLEEDING 12/25/2015 [employer] NUCLEAR MEDICINE PET CT TECHNOLOGIST Ot K31.84 12/25/2015 [employer] NUCLEAR MEDICINE PET CT TECHNOLOGIST Ot Z45.2 12/26/2015 [employer] NUCLEAR MEDICINE PET CT TECHNOLOGIST Ot K31.84 12/26/2015 [employer] NUCLEAR MEDICINE PET CT TECHNOLOGIST Ot Z45.2 01/22/2016 [employer] NUCLEAR MEDICINE PET CT TECHNOLOGIST Ot K31.84 01/22/2016 [employer] NUCLEAR MEDICINE PET CT TECHNOLOGIST Ot Z45.2 02/10/2016 [employer] NUCLEAR MEDICINE PET CT TECHNOLOGIST Ot K31.84 02/10/2016 [facility] PAT[facility]O NUCLEAR MEDICINE PET CT TECHNOLOGIST Ot Z45.2 02/20/2016 HAROON, BISMARK T NUCLEAR MEDICINE PET CT TECHNOLOGIST Ot K31.84 02/20/2016 [facility]ISM[facility] PATIÑO NUCLEAR MEDICINE PET CT TECHNOLOGIST Ot Z45.2 02/23/2016 [facility]ISM[facility] PATIÑO NUCLEAR MEDICINE PET CT TECHNOLOGIST Ot K31.84 02/23/2016 [facility]ISMARK PATIÑO NUCLEAR MEDICINE PET CT TECHNOLOGIST Ot Z45.2 03/22/2016 [facility]ISMARK PATIÑO NUCLEAR MEDICINE PET CT TECHNOLOGIST Ot K31.84 GASTROPARESIS 03/22/2016 [facility]ISM[facility] PATI[facility]O NUCLEAR MEDICINE PET CT TECHNOLOGIST Ot Z45.2 ENCOUNTER FOR ADJUSTMENT AND MANAGEMENT 03/22/2016 [facility]ISM[facility] PATIÑO NUCLEAR MEDICINE PET CT TECHNOLOGIST Ot K31.84 GASTROPARESIS 03/22/2016 [employer]ISM[facility] PATI[facility]O NUCLEAR MEDICINE PET CT TECHNOLOGIST Ot Z45.2 ENCOUNTER FOR ADJUSTMENT AND MANAGEMENT 03/24/2016 BISMARK PATIOÑ NUCLEAR MEDICINE PET CT TECHNOLOGIST Ot K31.84 GASTROPARESIS 03/24/2016 [facility]ISM[facility] PATIÑO NUCLEAR MEDICINE PET CT TECHNOLOGIST Ot Z45.2 ENCOUNTER FOR ADJUSTMENT AND MANAGEMENT 04/20/2016 BISMARK PATIÑO NUCLEAR MEDICINE PET CT TECHNOLOGIST Ot K31.84 GASTROPARESIS 04/20/2016 BISM[facility] PATIÑO NUCLEAR MEDICINE PET CT TECHNOLOGIST Ot Z45.2 ENCOUNTER FOR ADJUSTMENT AND MANAGEMENT 04/20/2016 BISMARK PATIÑO NUCLEAR MEDICINE PET CT TECHNOLOGIST Ot K31.84 GASTROPARESIS 04/20/2016 BISMARK PATIÑO NUCLEAR MEDICINE PET CT TECHNOLOGIST Ot Z45.2 ENCOUNTER FOR ADJUSTMENT AND MANAGEMENT 04/21/2016 BISMARK PATIÑO NUCLEAR MEDICINE PET CT TECHNOLOGIST Ot K31.84 GASTROPARESIS 04/21/2016 BISMARK PATIÑO NUCLEAR MEDICINE PET CT TECHNOLOGIST Ot Z45.2 ENCOUNTER FOR ADJUSTMENT AND MANAGEMENT 05/14/2016 BISMARK PATIÑO NUCLEAR MEDICINE PET CT TECHNOLOGIST Ot K31.84 GASTROPARESIS 05/14/2016 BISMARK PATIÑO NUCLEAR MEDICINE PET CT TECHNOLOGIST Ot Z45.2 ENCOUNTER FOR ADJUSTMENT AND MANAGEMENT 05/20/2016 BISMARK PATIÑO NUCLEAR MEDICINE PET CT TECHNOLOGIST Ot K31.84 GASTROPARESIS 05/20/2016 BISMARK PATIÑO NUCLEAR MEDICINE PET CT TECHNOLOGIST Ot Z45.2 ENCOUNTER FOR ADJUSTMENT AND MANAGEMENT 05/28/2016 BISMARK PATIÑO NUCLEAR MEDICINE PET CT TECHNOLOGIST Ot K31.84 GASTROPARESIS 05/28/2016 [facility]ISM[facility] PATIÑO NUCLEAR MEDICINE PET CT TECHNOLOGIST Ot Z45.2 ENCOUNTER FOR ADJUSTMENT AND MANAGEMENT 06/18/2016 BISMARK PATIÑO NUCLEAR MEDICINE PET CT TECHNOLOGIST Ot K31.84 GASTROPARESIS 06/18/2016 BISMARK PATIÑO NUCLEAR MEDICINE PET CT TECHNOLOGIST Ot Z45.2 ENCOUNTER FOR ADJUSTMENT AND MANAGEMENT 06/18/2016 BISMARK PATIÑO NUCLEAR MEDICINE PET CT TECHNOLOGIST Ot K31.84 GASTROPARESIS 06/18/2016 [facility]ISMARK PATIÑO NUCLEAR MEDICINE PET CT TECHNOLOGIST Ot Z45.2 ENCOUNTER FOR ADJUSTMENT AND MANAGEMENT 07/16/2016 BISMARK PATIÑO NUCLEAR MEDICINE PET CT TECHNOLOGIST Ot K31.84 GASTROPARESIS 07/16/2016 BISMARK PATIÑO NUCLEAR MEDICINE PET CT TECHNOLOGIST Ot Z45.2 ENCOUNTER FOR ADJUSTMENT AND MANAGEMENT 07/19/2016 BISMARK PATIÑO NUCLEAR MEDICINE PET CT TECHNOLOGIST Ot K31.84 GASTROPARESIS 07/19/2016 BISMARK PATIÑO NUCLEAR MEDICINE PET CT TECHNOLOGIST Ot Z45.2 ENCOUNTER FOR ADJUSTMENT AND MANAGEMENT 07/20/2016 [facility]ISM[facility] PATIÑO NUCLEAR MEDICINE PET CT TECHNOLOGIST Ot K31.84 GASTROPARESIS 07/20/2016 BISMARK PATIÑO NUCLEAR MEDICINE PET CT TECHNOLOGIST Ot Z45.2 ENCOUNTER FOR ADJUSTMENT AND MANAGEMENT 08/13/2016 BISMARK PATIÑO NUCLEAR MEDICINE PET CT TECHNOLOGIST Ot K31.84 GASTROPARESIS 08/13/2016 BISM[facility] PATIÑO NUCLEAR MEDICINE PET CT TECHNOLOGIST Ot Z45.2 ENCOUNTER FOR ADJUSTMENT AND MANAGEMENT 08/13/2016 [facility]ISM[facility] PATIÑO NUCLEAR MEDICINE PET CT TECHNOLOGIST Ot K31.84 GASTROPARESIS 08/13/2016 BISMARK PATIÑO NUCLEAR MEDICINE PET CT TECHNOLOGIST Ot Z45.2 ENCOUNTER FOR ADJUSTMENT AND MANAGEMENT 08/13/2016 BISMARK PATIÑO NUCLEAR MEDICINE PET CT TECHNOLOGIST Ot K31.84 GASTROPARESIS 08/13/2016 BISMARK PATIÑO NUCLEAR MEDICINE PET CT TECHNOLOGIST Ot Z45.2 ENCOUNTER FOR ADJUSTMENT AND MANAGEMENT 08/16/2016 BISMARK PATIÑO NUCLEAR MEDICINE PET CT TECHNOLOGIST Ot K31.84 GASTROPARESIS 08/16/2016 BISM[facility] PATIÑO NUCLEAR MEDICINE PET CT TECHNOLOGIST Ot Z45.2 ENCOUNTER FOR ADJUSTMENT AND MANAGEMENT 08/27/2016 BISMARK PATIÑO NUCLEAR MEDICINE PET CT TECHNOLOGIST Ot K31.84 GASTROPARESIS 08/27/2016 BISM[facility] PATIÑO NUCLEAR MEDICINE PET CT TECHNOLOGIST Ot Z45.2 ENCOUNTER FOR ADJUSTMENT AND MANAGEMENT 09/13/2016 BISMARK PATIÑO NUCLEAR MEDICINE PET CT TECHNOLOGIST Ot K31.84 GASTROPARESIS 09/13/2016 [facility]ISM[facility] PATIÑO NUCLEAR MEDICINE PET CT TECHNOLOGIST Ot Z45.2 ENCOUNTER FOR ADJUSTMENT AND MANAGEMENT 09/24/2016 [facility]ISM[facility] PATIÑO NUCLEAR MEDICINE PET CT TECHNOLOGIST Ot K31.84 GASTROPARESIS 09/24/2016 [facility] PATIÑO NUCLEAR MEDICINE PET CT TECHNOLOGIST Ot Z45.2 ENCOUNTER FOR ADJUSTMENT AND MANAGEMENT 09/24/2016 [facility]ISM[facility] PATIÑO NUCLEAR MEDICINE PET CT TECHNOLOGIST Ot K31.84 GASTROPARESIS 09/24/2016 [facility] PATI[facility]O NUCLEAR MEDICINE PET CT TECHNOLOGIST Ot Z45.2 ENCOUNTER FOR ADJUSTMENT AND MANAGEMENT 10/29/2016 [facility]ISM[facility] PATIÑO NUCLEAR MEDICINE PET CT TECHNOLOGIST Ot K31.84 GASTROPARESIS 10/29/2016 [facility] PATI[facility]O NUCLEAR MEDICINE PET CT TECHNOLOGIST Ot Z45.2 ENCOUNTER FOR ADJUSTMENT AND MANAGEMENT 11/11/2016 [facility]ISM[facility] PATIÑO NUCLEAR MEDICINE PET CT TECHNOLOGIST Ot K31.84 GASTROPARESIS 11/11/2016 BISMARK PATIÑO Ot Z45.2 ENCOUNTER FOR ADJUSTMENT AND MANAGEMENT 11/12/2016 BISMARK PATIÑO Ot K31.84 GASTROPARESIS 11/12/2016 BISMARK PATIÑO Ot Z45.2 ENCOUNTER FOR ADJUSTMENT AND MANAGEMENT 11/26/2016 Ot 250.61 BOO B W NEURO MANIFEST, TYPE I [JUVENILE 11/26/2016 Ot 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 11/26/2016 Ot 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 11/26/2016 Ot 459.81 TED OUS INSUFFICIENCY NOS 11/26/2016 Ot V72.81 NAVI-[id number] CARDIOVASCULAR 11/26/2016 Ot V74.8 SCRE EN-BACTERIAL DIS NEC 11/26/2016 Ot 250.51 BOO B W OPHTHAL MANIFEST, TYPE I [JUVENIL 11/26/2016 Ot 250.63 BOO B W NEURO MANIFEST, TYPE I [JUVENILE 11/26/2016 Ot 300.00 ANX IETY STATE NOS 11/26/2016 Ot 401.1 NAVA GN HYPERTENSION 11/26/2016 Ot 250.01 BOO B ANTHONY WO COMPL, TYPE I [JUVENILE TYP 11/26/2016 Ot 459.81 TED OUS INSUFFICIENCY NOS 11/26/2016 Ot 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 11/26/2016 Ot 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 11/26/2016 Ot V58.81 FIT /ADJ VASCULAR CATHETER 11/26/2016 RY HOBSON, LAURO [place] Ot R13.10 DYSPHAGIA, UNSPECIFIED 11/26/2016 RY HOBSON, LAURO [place] Ot Z01.818 ENCOUNTER FOR OTHER PREPROCEDURAL EXAMIN 11/26/2016 BISMARK PATIÑO Ot K31.84 GASTROPARESIS 11/26/2016 BISMARK PATIÑO Ot Z45.2 ENCOUNTER FOR ADJUSTMENT AND MANAGEMENT 11/26/2016 BISMARK PATIÑO Ot K31.84 GASTROPARESIS 11/26/2016 BISMARK PATIÑO Ot Z45.2 ENCOUNTER FOR ADJUSTMENT AND MANAGEMENT 11/26/2016 BISMARK PATIÑO Ot K31.84 GASTROPARESIS 11/26/2016 BISMARK PATIÑO Ot Z45.2 ENCOUNTER FOR ADJUSTMENT AND MANAGEMENT 11/26/2016 BISMARK PATIÑO Ot K31.84 GASTROPARESIS 11/26/2016 BISMARK PATIÑO Ot Z45.2 ENCOUNTER FOR ADJUSTMENT AND MANAGEMENT 11/29/2016 BISMARK PATIÑO NUCLEAR MEDICINE PET CT TECHNOLOGIST Ot K31.84 GASTROPARESIS 11/29/2016 BISMARK PATIÑOP Ot Z45.2 ENCOUNTER FOR ADJUSTMENT AND MANAGEMENT 12/24/2016 [facility]ISM[facility] PATIÑO NUCLEAR MEDICINE PET CT TECHNOLOGIST Ot K31.84 GASTROPARESIS 12/24/2016 [facility]ISM[facility] PATIÑO NUCLEAR MEDICINE PET CT TECHNOLOGIST Ot Z45.2 ENCOUNTER FOR ADJUSTMENT AND MANAGEMENT 01/12/2017 [facility]ISMARK PATIÑO NUCLEAR MEDICINE PET CT TECHNOLOGIST Ot K31.84 GASTROPARESIS 01/12/2017 BISMARK PATIÑO NUCLEAR MEDICINE PET CT TECHNOLOGIST Ot Z45.2 ENCOUNTER FOR ADJUSTMENT AND MANAGEMENT 01/21/2017 BISMARK PATIÑO NUCLEAR MEDICINE PET CT TECHNOLOGIST Ot K31.84 GASTROPARESIS 01/21/2017 [facility]ISMARK PATIÑO NUCLEAR MEDICINE PET CT TECHNOLOGIST Ot Z45.2 ENCOUNTER FOR ADJUSTMENT AND MANAGEMENT 01/21/2017 BISMARK PATIÑO NUCLEAR MEDICINE PET CT TECHNOLOGIST Ot K31.84 GASTROPARESIS 01/21/2017 [facility]ISMARK PATIÑO NUCLEAR MEDICINE PET CT TECHNOLOGIST Ot Z45.2 ENCOUNTER FOR ADJUSTMENT AND MANAGEMENT 01/27/2017 BISMARK PATIÑO NUCLEAR MEDICINE PET CT TECHNOLOGIST Ot E10.42 TYPE 1 DIABETES MELLITUS WITH DIABETIC P 01/27/2017 BISMARK PATIÑO NUCLEAR MEDICINE PET CT TECHNOLOGIST Ot E10.42 TYPE 1 DIABETES MELLITUS WITH DIABETIC P 01/27/2017 BISMARK PATIÑO NUCLEAR MEDICINE PET CT TECHNOLOGIST Ot E10.42 TYPE 1 DIABETES MELLITUS WITH DIABETIC P 02/02/2017 BISMARK PATIÑO NUCLEAR MEDICINE PET CT TECHNOLOGIST Ot K31.84 GASTROPARESIS 02/02/2017 BISMARK PATIÑO NUCLEAR MEDICINE PET CT TECHNOLOGIST Ot Z45.2 ENCOUNTER FOR ADJUSTMENT AND MANAGEMENT 02/17/2017 BISMARK PATIÑOP Ot E10.42 TYPE 1 DIABETES MELLITUS WITH DIABETIC P 02/24/2017 BISMARK PATIÑO NUCLEAR MEDICINE PET CT TECHNOLOGIST Ot K31.84 GASTROPARESIS 02/24/2017 BISMARK PATIÑO NUCLEAR MEDICINE PET CT TECHNOLOGIST Ot Z45.2 ENCOUNTER FOR ADJUSTMENT AND MANAGEMENT 02/25/2017 BISMARK PATIÑO NUCLEAR MEDICINE PET CT TECHNOLOGIST Ot K31.84 GASTROPARESIS 02/25/2017 BISMARK PATIÑO NUCLEAR MEDICINE PET CT TECHNOLOGIST Ot Z45.2 ENCOUNTER FOR ADJUSTMENT AND MANAGEMENT 02/25/2017 BISMARK PATIÑO NUCLEAR MEDICINE PET CT TECHNOLOGIST Ot K31.84 GASTROPARESIS 02/25/2017 [facility]ISM[facility] PATIÑO NUCLEAR MEDICINE PET CT TECHNOLOGIST Ot Z45.2 ENCOUNTER FOR ADJUSTMENT AND MANAGEMENT 02/25/2017 [facility]ISM[facility] PATIÑO NUCLEAR MEDICINE PET CT TECHNOLOGIST Ot K31.84 GASTROPARESIS 02/25/2017 BISMARK PATIÑOP Ot Z45.2 ENCOUNTER FOR ADJUSTMENT AND MANAGEMENT 02/25/2017 BISMARK PATIÑO NUCLEAR MEDICINE PET CT TECHNOLOGIST Ot E10.42 TYPE 1 DIABETES MELLITUS WITH DIABETIC P 02/28/2017 BISMARK PATIÑO NUCLEAR MEDICINE PET CT TECHNOLOGIST Ot K31.84 GASTROPARESIS 02/28/2017 [facility]ISMARK PATIÑO NUCLEAR MEDICINE PET CT TECHNOLOGIST Ot Z45.2 ENCOUNTER FOR ADJUSTMENT AND MANAGEMENT 03/25/2017 BISMARK PATIÑO NUCLEAR MEDICINE PET CT TECHNOLOGIST Ot K31.84 GASTROPARESIS 03/25/2017 BISMARK PATIÑO NUCLEAR MEDICINE PET CT TECHNOLOGIST Ot Z45.2 ENCOUNTER FOR ADJUSTMENT AND MANAGEMENT 04/13/2017 BISMARK PATIÑO NUCLEAR MEDICINE PET CT TECHNOLOGIST Ot K31.84 GASTROPARESIS 04/13/2017 BISMARK PATIÑO NUCLEAR MEDICINE PET CT TECHNOLOGIST Ot Z45.2 ENCOUNTER FOR ADJUSTMENT AND MANAGEMENT 04/22/2017 BISMARK PATIÑO NUCLEAR MEDICINE PET CT TECHNOLOGIST Ot K31.84 GASTROPARESIS 04/22/2017 BISMARK PATIÑO NUCLEAR MEDICINE PET CT TECHNOLOGIST Ot Z45.2 ENCOUNTER FOR ADJUSTMENT AND MANAGEMENT 04/25/2017 BISMARK PATIÑO NUCLEAR MEDICINE PET CT TECHNOLOGIST Ot K31.84 GASTROPARESIS 04/25/2017 [facility]ISMARK PATIÑO NUCLEAR MEDICINE PET CT TECHNOLOGIST Ot Z45.2 ENCOUNTER FOR ADJUSTMENT AND MANAGEMENT 05/26/2017 BISMARK PATIÑO NUCLEAR MEDICINE PET CT TECHNOLOGIST Ot K31.84 GASTROPARESIS 05/26/2017 BISMARK PATIÑO NUCLEAR MEDICINE PET CT TECHNOLOGIST Ot Z45.2 ENCOUNTER FOR ADJUSTMENT AND MANAGEMENT 05/27/2017 BISMARK PATIÑO NUCLEAR MEDICINE PET CT TECHNOLOGIST Ot K31.84 GASTROPARESIS 05/27/2017 BISMARK PATIÑO NUCLEAR MEDICINE PET CT TECHNOLOGIST Ot Z45.2 ENCOUNTER FOR ADJUSTMENT AND MANAGEMENT 05/27/2017 BISMARK PATIÑO NUCLEAR MEDICINE PET CT TECHNOLOGIST Ot K31.84 GASTROPARESIS 05/27/2017 BISMARK PATIÑO NUCLEAR MEDICINE PET CT TECHNOLOGIST Ot Z45.2 ENCOUNTER FOR ADJUSTMENT AND MANAGEMENT 05/30/2017 BISMARK PATIÑO NUCLEAR MEDICINE PET CT TECHNOLOGIST Ot K31.84 GASTROPARESIS 05/30/2017 BISMARK PATIÑO NUCLEAR MEDICINE PET CT TECHNOLOGIST Ot Z45.2 ENCOUNTER FOR ADJUSTMENT AND MANAGEMENT 06/23/2017 BISMARK PATIÑO NUCLEAR MEDICINE PET CT TECHNOLOGIST Ot K31.84 GASTROPARESIS 06/23/2017 BISMARK PATIÑO NUCLEAR MEDICINE PET CT TECHNOLOGIST Ot Z45.2 ENCOUNTER FOR ADJUSTMENT AND MANAGEMENT 07/19/2017 BISMARK PATIÑO NUCLEAR MEDICINE PET CT TECHNOLOGIST Ot K31.84 GASTROPARESIS 07/19/2017 BISMARK PATIÑO NUCLEAR MEDICINE PET CT TECHNOLOGIST Ot Z45.2 ENCOUNTER FOR ADJUSTMENT AND MANAGEMENT 07/26/2017 BISMARK PATIÑO NUCLEAR MEDICINE PET CT TECHNOLOGIST Ot K31.84 GASTROPARESIS 07/26/2017 BISMARK PATIÑO NUCLEAR MEDICINE PET CT TECHNOLOGIST Ot Z45.2 ENCOUNTER FOR ADJUSTMENT AND MANAGEMENT 08/19/2017 BISMARK PATIÑO NUCLEAR MEDICINE PET CT TECHNOLOGIST Ot K31.84 GASTROPARESIS 08/19/2017 BISMARK PATIÑO NUCLEAR MEDICINE PET CT TECHNOLOGIST Ot Z45.2 ENCOUNTER FOR ADJUSTMENT AND MANAGEMENT 08/20/2017 BISMARK PATIÑO NUCLEAR MEDICINE PET CT TECHNOLOGIST Ot K31.84 GASTROPARESIS 08/20/2017 BISMARK PATIÑO NUCLEAR MEDICINE PET CT TECHNOLOGIST Ot Z45.2 ENCOUNTER FOR ADJUSTMENT AND MANAGEMENT 2017 [facility]ISM[facility] PATIÑO NUCLEAR MEDICINE PET CT TECHNOLOGIST Ot K31.84 GASTROPARESIS 2017 BISMARK PATIÑO NUCLEAR MEDICINE PET CT TECHNOLOGIST Ot Z45.2 ENCOUNTER FOR ADJUSTMENT AND MANAGEMENT 2017 [facility]ISMARK PATIÑO NUCLEAR MEDICINE PET CT TECHNOLOGIST Ot K31.84 GASTROPARESIS 2017 BISMARK PATIÑO NUCLEAR MEDICINE PET CT TECHNOLOGIST Ot Z45.2 ENCOUNTER FOR ADJUSTMENT AND MANAGEMENT 2017 [facility]ISMARK PATIÑO NUCLEAR MEDICINE PET CT TECHNOLOGIST Ot K31.84 GASTROPARESIS 2017 BISMARK PATIÑO NUCLEAR MEDICINE PET CT TECHNOLOGIST Ot Z45.2 ENCOUNTER FOR ADJUSTMENT AND MANAGEMENT 2017 [facility]ISMARK PATIÑO NUCLEAR MEDICINE PET CT TECHNOLOGIST Ot K31.84 GASTROPARESIS 2017 BISMARK PATIÑO NUCLEAR MEDICINE PET CT TECHNOLOGIST Ot Z45.2 ENCOUNTER FOR ADJUSTMENT AND MANAGEMENT 08/26/2017 BISMARK PATIÑO NUCLEAR MEDICINE PET CT TECHNOLOGIST Ot K31.84 GASTROPARESIS 08/26/2017 BISMARK PATIÑO NUCLEAR MEDICINE PET CT TECHNOLOGIST Ot Z45.2 ENCOUNTER FOR ADJUSTMENT AND MANAGEMENT 09/22/2017 BISMARK PATIÑO NUCLEAR MEDICINE PET CT TECHNOLOGIST Ot K31.84 GASTROPARESIS 09/22/2017 BISMARK PATIÑO NUCLEAR MEDICINE PET CT TECHNOLOGIST Ot Z45.2 ENCOUNTER FOR ADJUSTMENT AND MANAGEMENT 10/14/2017 BISMARK PATIÑO NUCLEAR MEDICINE PET CT TECHNOLOGIST Ot K31.84 GASTROPARESIS 10/14/2017 BISMARK PATIÑO NUCLEAR MEDICINE PET CT TECHNOLOGIST Ot Z45.2 ENCOUNTER FOR ADJUSTMENT AND MANAGEMENT 10/21/2017 BISMARK PATIÑO NUCLEAR MEDICINE PET CT TECHNOLOGIST Ot K31.84 GASTROPARESIS 10/21/2017 BISMARK PATIÑO NUCLEAR MEDICINE PET CT TECHNOLOGIST Ot Z45.2 ENCOUNTER FOR ADJUSTMENT AND MANAGEMENT 10/27/2017 BISMARK PATIÑO NUCLEAR MEDICINE PET CT TECHNOLOGIST Ot K31.84 GASTROPARESIS 10/27/2017 BISMARK PATIÑO NUCLEAR MEDICINE PET CT TECHNOLOGIST Ot Z45.2 ENCOUNTER FOR ADJUSTMENT AND MANAGEMENT 11/23/2017 BISMARK PATIÑO NUCLEAR MEDICINE PET CT TECHNOLOGIST Ot K31.84 GASTROPARESIS 11/23/2017 BISMARK PATIÑO NUCLEAR MEDICINE PET CT TECHNOLOGIST Ot Z45.2 ENCOUNTER FOR ADJUSTMENT AND MANAGEMENT 11/24/2017 BISMARK PATIÑO NUCLEAR MEDICINE PET CT TECHNOLOGIST Ot K31.84 GASTROPARESIS 11/24/2017 HAROON, BISMARK T NUCLEAR MEDICINE PET CT TECHNOLOGIST Ot Z45.2 ENCOUNTER FOR ADJUSTMENT AND MANAGEMENT 11/24/2017 BISMARK PATIÑO NUCLEAR MEDICINE PET CT TECHNOLOGIST Ot K31.84 GASTROPARESIS 11/24/2017 BISMARK PATIÑO NUCLEAR MEDICINE PET CT TECHNOLOGIST Ot Z45.2 ENCOUNTER FOR ADJUSTMENT AND MANAGEMENT 11/25/2017 BISMARK PATIÑO NUCLEAR MEDICINE PET CT TECHNOLOGIST Ot K31.84 GASTROPARESIS 11/25/2017 BISMARK PATIÑO NUCLEAR MEDICINE PET CT TECHNOLOGIST Ot Z45.2 ENCOUNTER FOR ADJUSTMENT AND MANAGEMENT 01/13/2018 BISMARK PATIÑO NUCLEAR MEDICINE PET CT TECHNOLOGIST Ot K31.84 GASTROPARESIS 01/13/2018 BISMARK PATIÑO NUCLEAR MEDICINE PET CT TECHNOLOGIST Ot Z45.2 ENCOUNTER FOR ADJUSTMENT AND MANAGEMENT 01/20/2018 BISMARK PATIÑO NUCLEAR MEDICINE PET CT TECHNOLOGIST Ot 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 01/20/2018 BISMARK PATIÑO NUCLEAR MEDICINE PET CT TECHNOLOGIST Ot K31.84 GASTROPARESIS 01/20/2018 BISMARK PATIÑO NUCLEAR MEDICINE PET CT TECHNOLOGIST Ot Z45.2 ENCOUNTER FOR ADJUSTMENT AND MANAGEMENT 01/23/2018 BISMARK PATIÑO NUCLEAR MEDICINE PET CT TECHNOLOGIST Ot E10.40 TYPE 1 DIABETES MELLITUS WITH DIABETIC N 01/23/2018 BISMARK PATIÑO NUCLEAR MEDICINE PET CT TECHNOLOGIST Ot I1 0 ESSENTIAL (PRIMARY) HYPERTENSION 01/27/2018 BISMARK PATIÑO NUCLEAR MEDICINE PET CT TECHNOLOGIST Ot K31.84 GASTROPARESIS 01/27/2018 BISMARK PATIÑO NUCLEAR MEDICINE PET CT TECHNOLOGIST Ot Z45.2 ENCOUNTER FOR ADJUSTMENT AND MANAGEMENT 02/10/2018 BISMARK PATIÑO NUCLEAR MEDICINE PET CT TECHNOLOGIST Ot E10.40 TYPE 1 DIABETES MELLITUS WITH DIABETIC N 02/10/2018 BISMARK PATIÑO NUCLEAR MEDICINE PET CT TECHNOLOGIST Ot I1 0 ESSENTIAL (PRIMARY) HYPERTENSION 02/17/2018 BISMARK PATIÑO NUCLEAR MEDICINE PET CT TECHNOLOGIST Ot E10.40 TYPE 1 DIABETES MELLITUS WITH DIABETIC N 02/17/2018 BISMARK PATIÑO NUCLEAR MEDICINE PET CT TECHNOLOGIST Ot I1 0 ESSENTIAL (PRIMARY) HYPERTENSION 02/22/2018 BISMARK PATIÑO NUCLEAR MEDICINE PET CT TECHNOLOGIST Ot K31.84 GASTROPARESIS 02/22/2018 BISMARK PATIÑO NUCLEAR MEDICINE PET CT TECHNOLOGIST Ot Z45.2 ENCOUNTER FOR ADJUSTMENT AND MANAGEMENT 02/23/2018 BISMARK PATIÑO NUCLEAR MEDICINE PET CT TECHNOLOGIST Ot K31.84 GASTROPARESIS 02/23/2018 BISMARK PATIÑO NUCLEAR MEDICINE PET CT TECHNOLOGIST Ot Z45.2 ENCOUNTER FOR ADJUSTMENT AND MANAGEMENT 03/03/2018 BISMARK PATIÑO NUCLEAR MEDICINE PET CT TECHNOLOGIST Ot K31.84 GASTROPARESIS 03/03/2018 BISMARK PATIÑO NUCLEAR MEDICINE PET CT TECHNOLOGIST Ot Z45.2 ENCOUNTER FOR ADJUSTMENT AND MANAGEMENT 03/03/2018 Ot 250.61 BOO B W NEURO MANIFEST, TYPE I [JUVENILE 03/03/2018 Ot 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 03/03/2018 Ot 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 03/03/2018 Ot 459.81 TED OUS INSUFFICIENCY NOS 03/03/2018 Ot V72.81 [id number] CARDIOVASCULAR 03/03/2018 Ot V74.8 SCRE EN-BACTERIAL DIS NEC 03/03/2018 Ot 250.51 BOO B W OPHTHAL MANIFEST, TYPE I [JUVENIL 03/03/2018 Ot 250.63 BOO B W NEURO MANIFEST, TYPE I [JUVENILE 03/03/2018 Ot 300.00 ANX IETY STATE NOS 03/03/2018 Ot 401.1 NAVA GN HYPERTENSION 03/03/2018 Ot 250.01 BOO B ANTHONY WO COMPL, TYPE I [JUVENILE TYP 03/03/2018 Ot 459.81 TED OUS INSUFFICIENCY NOS 03/03/2018 Ot 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 03/03/2018 Ot 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 03/03/2018 Ot V58.81 FIT /ADJ VASCULAR CATHETER 03/03/2018 RY HOBSON, LAURO [place] Ot R13.10 DYSPHAGIA, UNSPECIFIED 03/03/2018 LAUOR RAZA MD Ot Z01.818 ENCOUNTER FOR OTHER PREPROCEDURAL EXAMIN 03/03/2018 BISMARK PATIÑO Ot E10.42 TYPE 1 DIABETES MELLITUS WITH DIABETIC P 03/03/2018 BISMARK PATIÑO Ot E10.40 TYPE 1 DIABETES MELLITUS WITH DIABETIC N 03/03/2018 BISMARK PATIÑO Ot I1 0 ESSENTIAL (PRIMARY) HYPERTENSION 03/03/2018 BISMARK PATIÑO Ot K31.84 GASTROPARESIS 03/03/2018 BISMARK PATIÑO Ot Z45.2 ENCOUNTER FOR ADJUSTMENT AND MANAGEMENT 03/03/2018 Ot 250.61 BOO B W NEURO MANIFEST, TYPE I [JUVENILE 03/03/2018 Ot 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 03/03/2018 Ot 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 03/03/2018 Ot 459.81 TED OUS INSUFFICIENCY NOS 03/03/2018 Ot V72.81 [id number] CARDIOVASCULAR 03/03/2018 Ot V74.8 SCRE EN-BACTERIAL DIS NEC 03/03/2018 Ot 250.51 BOO B W OPHTHAL MANIFEST, TYPE I [JUVENIL 03/03/2018 Ot 250.63 BOO B W NEURO MANIFEST, TYPE I [JUVENILE 03/03/2018 Ot 300.00 ANX IETY STATE NOS 03/03/2018 Ot 401.1 NAVA GN HYPERTENSION 03/03/2018 Ot 250.01 BOO Bala CRUZ WO COMPL, TYPE I [JUVENILE TYP 03/03/2018 Ot 459.81 TED OUS INSUFFICIENCY NOS 03/03/2018 Ot 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 03/03/2018 Ot 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 03/03/2018 Ot V58.81 FIT /ADJ VASCULAR CATHETER 03/03/2018 RY HOBSON, LAURO [place] Ot R13.10 DYSPHAGIA, UNSPECIFIED 03/03/2018 RY HOBSON, LAURO [place] Ot Z01.818 ENCOUNTER FOR OTHER PREPROCEDURAL EXAMIN 03/03/2018 BISMARK PATIÑOP Ot E10.42 TYPE 1 DIABETES MELLITUS WITH DIABETIC P 03/03/2018 BISMARK PATIÑO NUCLEAR MEDICINE PET CT TECHNOLOGIST Ot E10.40 TYPE 1 DIABETES MELLITUS WITH DIABETIC N 03/03/2018 BISMARK PATIÑOP Ot I1 0 ESSENTIAL (PRIMARY) HYPERTENSION 03/03/2018 BISMARK PATIÑO NUCLEAR MEDICINE PET CT TECHNOLOGIST Ot K31.84 GASTROPARESIS 03/03/2018 BISMARK PATIÑO NUCLEAR MEDICINE PET CT TECHNOLOGIST Ot Z45.2 ENCOUNTER FOR ADJUSTMENT AND MANAGEMENT 03/03/2018 BISMARK PATIÑO NUCLEAR MEDICINE PET CT TECHNOLOGIST Ot K31.84 GASTROPARESIS 03/03/2018 BISMARK PATIÑO NUCLEAR MEDICINE PET CT TECHNOLOGIST Ot Z45.2 ENCOUNTER FOR ADJUSTMENT AND MANAGEMENT 03/24/2018 BISMARK PATIÑO NUCLEAR MEDICINE PET CT TECHNOLOGIST Ot K31.84 GASTROPARESIS 03/24/2018 BISMARK PATIÑO NUCLEAR MEDICINE PET CT TECHNOLOGIST Ot Z45.2 ENCOUNTER FOR ADJUSTMENT AND MANAGEMENT 03/29/2018 BISMARK PATIÑO NUCLEAR MEDICINE PET CT TECHNOLOGIST Ot K31.84 GASTROPARESIS 03/29/2018 BISMARK PATIÑO NUCLEAR MEDICINE PET CT TECHNOLOGIST Ot Z45.2 ENCOUNTER FOR ADJUSTMENT AND MANAGEMENT 04/14/2018 [facility] PATIÑO NUCLEAR MEDICINE PET CT TECHNOLOGIST Ot K31.84 GASTROPARESIS 04/14/2018 [facility] PATIÑO NUCLEAR MEDICINE PET CT TECHNOLOGIST Ot Z45.2 ENCOUNTER FOR ADJUSTMENT AND MANAGEMENT 04/27/2018 [facility] PATIÑO NUCLEAR MEDICINE PET CT TECHNOLOGIST Ot K31.84 GASTROPARESIS 04/27/2018 [facility] PATIÑO NUCLEAR MEDICINE PET CT TECHNOLOGIST Ot Z45.2 ENCOUNTER FOR ADJUSTMENT AND MANAGEMENT 04/27/2018 [facility] PATIÑO NUCLEAR MEDICINE PET CT TECHNOLOGIST Ot K31.84 GASTROPARESIS 04/27/2018 [facility] PATIÑO NUCLEAR MEDICINE PET CT TECHNOLOGIST Ot Z45.2 ENCOUNTER FOR ADJUSTMENT AND MANAGEMENT 05/19/2018 [facility] PATIÑO NUCLEAR MEDICINE PET CT TECHNOLOGIST Ot K31.84 GASTROPARESIS 05/19/2018 [facility] PATIÑOP Ot Z45.2 ENCOUNTER FOR ADJUSTMENT AND MANAGEMENT 05/25/2018 [facility] PATIÑO NUCLEAR MEDICINE PET CT TECHNOLOGIST Ot K31.84 GASTROPARESIS 05/25/2018 [facility] PATIÑO NUCLEAR MEDICINE PET CT TECHNOLOGIST Ot Z45.2 ENCOUNTER FOR ADJUSTMENT AND MANAGEMENT 06/01/2018 [facility] PATIÑO NUCLEAR MEDICINE PET CT TECHNOLOGIST Ot K31.84 GASTROPARESIS 06/01/2018 [facility] PATIÑO NUCLEAR MEDICINE PET CT TECHNOLOGIST Ot Z45.2 ENCOUNTER FOR ADJUSTMENT AND MANAGEMENT 06/02/2018 [facility] PATIÑO NUCLEAR MEDICINE PET CT TECHNOLOGIST Ot K31.84 GASTROPARESIS 06/02/2018 [facility] PATIÑO NUCLEAR MEDICINE PET CT TECHNOLOGIST Ot Z45.2 ENCOUNTER FOR ADJUSTMENT AND MANAGEMENT 07/31/2018 [facility] PATIÑOP Ot E10.49 TYPE 1 DIABETES W [facility] DIABETIC NEUROLOGI 07/31/2018 [facility] PATIÑOP Ot R53.82 CHRONIC FATIGUE, UNSPECIFIED 08/15/2018 [facility]ISM[facility] PATIÑOP Ot K31.84 GASTROPARESIS 08/15/2018 [facility] PATIÑOP Ot Z45.2 ENCOUNTER FOR ADJUSTMENT AND MANAGEMENT 08/16/2018 [facility] PATIÑOP Ot E10.49 TYPE 1 DIABETES W [facility] DIABETIC NEUROLOGI 08/16/2018 [facility]ISM[facility] PATIÑOP Ot R53.82 CHRONIC FATIGUE, UNSPECIFIED 08/18/2018 [facility]ISM[facility] PATIÑOP Ot K31.84 GASTROPARESIS 08/18/2018 [facility] PATIÑOP Ot Z45.2 ENCOUNTER FOR ADJUSTMENT AND MANAGEMENT 08/24/2018 [facility]ISM[facility] PATIÑOP Ot K31.84 GASTROPARESIS 08/24/2018 [facility]ISM[facility] PATIÑOP Ot Z45.2 ENCOUNTER FOR ADJUSTMENT AND MANAGEMENT 2018 [facility] PATIÑO NUCLEAR MEDICINE PET CT TECHNOLOGIST Ot E10.49 TYPE 1 DIABETES W [facility] DIABETIC NEUROLOGI 2018 [facility] PATIÑOP Ot R53.82 CHRONIC FATIGUE, UNSPECIFIED 09/21/2018 [facility] PATIÑO NUCLEAR MEDICINE PET CT TECHNOLOGIST Ot K31.84 GASTROPARESIS 09/21/2018 [facility] PATIÑO NUCLEAR MEDICINE PET CT TECHNOLOGIST Ot Z45.2 ENCOUNTER FOR ADJUSTMENT AND MANAGEMENT 09/24/2018 [facility] PATIÑO NUCLEAR MEDICINE PET CT TECHNOLOGIST Ot E10.49 TYPE 1 DIABETES W [facility] DIABETIC NEUROLOGI 09/24/2018 [facility] PATIÑO NUCLEAR MEDICINE PET CT TECHNOLOGIST Ot K31.84 GASTROPARESIS 09/24/2018 [facility] PATIÑO NUCLEAR MEDICINE PET CT TECHNOLOGIST Ot R53.82 CHRONIC FATIGUE, UNSPECIFIED 09/24/2018 [facility] PATIÑO NUCLEAR MEDICINE PET CT TECHNOLOGIST Ot Z45.2 ENCOUNTER FOR ADJUSTMENT AND MANAGEMENT 09/25/2018 [facility] PATIÑO NUCLEAR MEDICINE PET CT TECHNOLOGIST Ot E10.49 TYPE 1 DIABETES W [facility] DIABETIC NEUROLOGI 09/25/2018 [facility]ISM[facility] PATIÑOP Ot K31.84 GASTROPARESIS 09/25/2018 [facility] PATIÑOP Ot R53.82 CHRONIC FATIGUE, UNSPECIFIED 09/25/2018 [facility] PATIÑO NUCLEAR MEDICINE PET CT TECHNOLOGIST Ot Z45.2 ENCOUNTER FOR ADJUSTMENT AND MANAGEMENT 09/25/2018 [facility]ISM[facility] PATIÑOP Ot E10.49 TYPE 1 DIABETES W [facility] DIABETIC NEUROLOGI 09/25/2018 [facility] PATIÑO NUCLEAR MEDICINE PET CT TECHNOLOGIST Ot K31.84 GASTROPARESIS 09/25/2018 [facility] PATIÑOP Ot R53.82 CHRONIC FATIGUE, UNSPECIFIED 09/25/2018 [facility] PATIÑO NUCLEAR MEDICINE PET CT TECHNOLOGIST Ot Z45.2 ENCOUNTER FOR ADJUSTMENT AND MANAGEMENT 10/23/2018 [facility] PATIÑO NUCLEAR MEDICINE PET CT TECHNOLOGIST Ot K31.84 GASTROPARESIS 10/23/2018 [facility] PATIÑO NUCLEAR MEDICINE PET CT TECHNOLOGIST Ot Z45.2 ENCOUNTER FOR ADJUSTMENT AND MANAGEMENT 10/23/2018 [facility] PATIÑO NUCLEAR MEDICINE PET CT TECHNOLOGIST Ot K31.84 GASTROPARESIS 10/23/2018 [facility] PATIÑO NUCLEAR MEDICINE PET CT TECHNOLOGIST Ot Z45.2 ENCOUNTER FOR ADJUSTMENT AND MANAGEMENT 11/30/2018 [facility] PATIÑO NUCLEAR MEDICINE PET CT TECHNOLOGIST Ot K31.84 GASTROPARESIS 11/30/2018 [facility] PATIÑO NUCLEAR MEDICINE PET CT TECHNOLOGIST Ot Z45.2 ENCOUNTER FOR ADJUSTMENT AND MANAGEMENT 12/18/2018 [facility] PATIÑO NUCLEAR MEDICINE PET CT TECHNOLOGIST Ot K31.84 GASTROPARESIS 12/18/2018 [facility]ISM[facility] PATIÑO NUCLEAR MEDICINE PET CT TECHNOLOGIST Ot Z45.2 ENCOUNTER FOR ADJUSTMENT AND MANAGEMENT 12/28/2018 [facility] PAT[facility] NUCLEAR MEDICINE PET CT TECHNOLOGIST Ot K31.84 GASTROPARESIS 12/28/2018 [facility] [employer] NUCLEAR MEDICINE PET CT TECHNOLOGIST Ot Z45.2 ENCOUNTER FOR ADJUSTMENT AND MANAGEMENT 01/04/2019 [facility] PAT[facility]O NUCLEAR MEDICINE PET CT TECHNOLOGIST Ot K31.84 GASTROPARESIS 01/04/2019 BISMARK PATI[facility]O NUCLEAR MEDICINE PET CT TECHNOLOGIST Ot Z45.2 ENCOUNTER FOR ADJUSTMENT AND MANAGEMENT 01/10/2019 [facility]ISM[facility] PATI[facility]O NUCLEAR MEDICINE PET CT TECHNOLOGIST Ot K31.84 GASTROPARESIS 01/10/2019 [facility]ISM[facility] PATI[facility]O NUCLEAR MEDICINE PET CT TECHNOLOGIST Ot Z45.2 ENCOUNTER FOR ADJUSTMENT AND MANAGEMENT 01/12/2019 [facility]ISM[facility] PATI[facility]O NUCLEAR MEDICINE PET CT TECHNOLOGIST Ot K31.84 GASTROPARESIS 01/12/2019 [facility]ISMARK PATI[facility]O NUCLEAR MEDICINE PET CT TECHNOLOGIST Ot Z45.2 ENCOUNTER FOR ADJUSTMENT AND MANAGEMENT 01/21/2019 [facility]ISM[facility] PATI[facility]O NUCLEAR MEDICINE PET CT TECHNOLOGIST Ot K31.84 GASTROPARESIS 01/21/2019 [facility]ISMARK PATI[facility]O NUCLEAR MEDICINE PET CT TECHNOLOGIST Ot Z45.2 ENCOUNTER FOR ADJUSTMENT AND MANAGEMENT 01/25/2019 BISMARK PATIÑO NUCLEAR MEDICINE PET CT TECHNOLOGIST Ot K31.84 GASTROPARESIS 01/25/2019 [facility]ISM[facility] PATI[facility]O NUCLEAR MEDICINE PET CT TECHNOLOGIST Ot Z45.2 ENCOUNTER FOR ADJUSTMENT AND MANAGEMENT 01/25/2019 BISMARK PATI[facility]O NUCLEAR MEDICINE PET CT TECHNOLOGIST Ot K31.84 GASTROPARESIS 01/25/2019 [facility]ISMARK PATI[facility]O NUCLEAR MEDICINE PET CT TECHNOLOGIST Ot Z45.2 ENCOUNTER FOR ADJUSTMENT AND MANAGEMENT 01/27/2019 [facility]ISM[facility] PATI[facility]O NUCLEAR MEDICINE PET CT TECHNOLOGIST Ot K31.84 GASTROPARESIS 01/27/2019 [facility]ISM[facility] PATI[facility]O NUCLEAR MEDICINE PET CT TECHNOLOGIST Ot Z45.2 ENCOUNTER FOR ADJUSTMENT AND MANAGEMENT 02/22/2019 [facility]ISM[facility] PATI[facility]O NUCLEAR MEDICINE PET CT TECHNOLOGIST Ot K31.84 GASTROPARESIS 02/22/2019 BISMARK PATIÑOP Ot Z45.2 ENCOUNTER FOR ADJUSTMENT AND MANAGEMENT 02/27/2019 BISMARK PATIÑO NUCLEAR MEDICINE PET CT TECHNOLOGIST Ot K31.84 GASTROPARESIS 02/27/2019 [facility]ISMARK PATI[facility]O NUCLEAR MEDICINE PET CT TECHNOLOGIST Ot Z45.2 ENCOUNTER FOR ADJUSTMENT AND MANAGEMENT 02/28/2019 [facility]ISMARK PATI[facility]O NUCLEAR MEDICINE PET CT TECHNOLOGIST Ot K31.84 GASTROPARESIS 02/28/2019 [facility]ISM[facility] PATI[facility]O NUCLEAR MEDICINE PET CT TECHNOLOGIST Ot Z45.2 ENCOUNTER FOR ADJUSTMENT AND MANAGEMENT 03/09/2019 [facility] PAT[facility]O NUCLEAR MEDICINE PET CT TECHNOLOGIST Ot K31.84 GASTROPARESIS 03/09/2019 [facility] PAT[facility]O NUCLEAR MEDICINE PET CT TECHNOLOGIST Ot Z45.2 ENCOUNTER FOR ADJUSTMENT AND MANAGEMENT 03/13/2019 [facility]ISM[facility] PATIÑO NUCLEAR MEDICINE PET CT TECHNOLOGIST Ot K31.84 GASTROPARESIS 03/13/2019 BISMARK PATIÑO NUCLEAR MEDICINE PET CT TECHNOLOGIST Ot Z45.2 ENCOUNTER FOR ADJUSTMENT AND MANAGEMENT 03/22/2019 [facility] PATI[facility]O NUCLEAR MEDICINE PET CT TECHNOLOGIST Ot K31.84 GASTROPARESIS 03/22/2019 [facility]ISM[facility] PATI[facility]O NUCLEAR MEDICINE PET CT TECHNOLOGIST Ot Z45.2 ENCOUNTER FOR ADJUSTMENT AND MANAGEMENT 04/25/2019 [facility]ISM[facility] PATI[facility]O NUCLEAR MEDICINE PET CT TECHNOLOGIST Ot K31.84 GASTROPARESIS 04/25/2019 [facility]ISM[facility] PATI[facility]O NUCLEAR MEDICINE PET CT TECHNOLOGIST Ot Z45.2 ENCOUNTER FOR ADJUSTMENT AND MANAGEMENT 04/26/2019 [facility] PAT[facility]O NUCLEAR MEDICINE PET CT TECHNOLOGIST Ot K31.84 GASTROPARESIS 04/26/2019 HAROON, BISMARK T NUCLEAR MEDICINE PET CT TECHNOLOGIST Ot Z45.2 ENCOUNTER FOR ADJUSTMENT AND MANAGEMENT 04/27/2019 [facility]ISM[facility] PATI[facility]O NUCLEAR MEDICINE PET CT TECHNOLOGIST Ot K31.84 GASTROPARESIS 04/27/2019 [facility]ISM[facility] PAT[facility]O NUCLEAR MEDICINE PET CT TECHNOLOGIST Ot Z45.2 ENCOUNTER FOR ADJUSTMENT AND MANAGEMENT 04/30/2019 [facility]ISM[facility] PATI[facility]O NUCLEAR MEDICINE PET CT TECHNOLOGIST Ot K31.84 GASTROPARESIS 04/30/2019 [facility] PAT[facility]O NUCLEAR MEDICINE PET CT TECHNOLOGIST Ot Z45.2 ENCOUNTER FOR ADJUSTMENT AND MANAGEMENT 05/01/2019 [facility] PATI[facility]O NUCLEAR MEDICINE PET CT TECHNOLOGIST Ot K31.84 GASTROPARESIS 05/01/2019 [facility]ISMARK PATI[facility]O NUCLEAR MEDICINE PET CT TECHNOLOGIST Ot Z45.2 ENCOUNTER FOR ADJUSTMENT AND MANAGEMENT 05/25/2019 BISMARK PATIÑO NUCLEAR MEDICINE PET CT TECHNOLOGIST Ot K31.84 GASTROPARESIS 05/25/2019 [facility] PATI[facility]O NUCLEAR MEDICINE PET CT TECHNOLOGIST Ot Z45.2 ENCOUNTER FOR ADJUSTMENT AND MANAGEMENT 06/14/2019 BISMARK PATIÑO NUCLEAR MEDICINE PET CT TECHNOLOGIST Ot K31.84 GASTROPARESIS 06/14/2019 [facility]ISMARK PATI[facility]O NUCLEAR MEDICINE PET CT TECHNOLOGIST Ot Z45.2 ENCOUNTER FOR ADJUSTMENT AND MANAGEMENT 06/25/2019 [facility]ISM[facility] PATI[facility]O NUCLEAR MEDICINE PET CT TECHNOLOGIST Ot K31.84 GASTROPARESIS 06/25/2019 [facility] PATI[facility]O NUCLEAR MEDICINE PET CT TECHNOLOGIST Ot Z45.2 ENCOUNTER FOR ADJUSTMENT AND MANAGEMENT 07/25/2019 [facility]ISM[facility] PATI[facility]O NUCLEAR MEDICINE PET CT TECHNOLOGIST Ot K31.84 GASTROPARESIS 07/25/2019 [facility] PAT[facility]O NUCLEAR MEDICINE PET CT TECHNOLOGIST Ot Z45.2 ENCOUNTER FOR ADJUSTMENT AND MANAGEMENT 07/26/2019 [facility] PATI[facility]O NUCLEAR MEDICINE PET CT TECHNOLOGIST Ot K31.84 GASTROPARESIS 07/26/2019 [facility] PATI[facility]O NUCLEAR MEDICINE PET CT TECHNOLOGIST Ot Z45.2 ENCOUNTER FOR ADJUSTMENT AND MANAGEMENT 07/27/2019 [facility] PAT[facility]O NUCLEAR MEDICINE PET CT TECHNOLOGIST Ot K31.84 GASTROPARESIS 07/27/2019 [facility] PAT[facility]O NUCLEAR MEDICINE PET CT TECHNOLOGIST Ot Z45.2 ENCOUNTER FOR ADJUSTMENT AND MANAGEMENT 08/30/2019 [facility]ISM[facility] PATI[facility]O NUCLEAR MEDICINE PET CT TECHNOLOGIST Ot K31.84 GASTROPARESIS 08/30/2019 [facility] PAT[facility]O NUCLEAR MEDICINE PET CT TECHNOLOGIST Ot Z45.2 ENCOUNTER FOR ADJUSTMENT AND MANAGEMENT 09/17/2019 [facility] PAT[facility]O NUCLEAR MEDICINE PET CT TECHNOLOGIST Ot K31.84 GASTROPARESIS 09/17/2019 [facility] PAT[facility]O NUCLEAR MEDICINE PET CT TECHNOLOGIST Ot Z45.2 ENCOUNTER FOR ADJUSTMENT AND MANAGEMENT 09/20/2019 BISMARK PATIÑOP Ot E10.65 TYPE 1 DIABETES MELLITUS WITH HYPERGLYCE 09/20/2019 [facility] PATI[facility]O NUCLEAR MEDICINE PET CT TECHNOLOGIST Ot Z45.2 ENCOUNTER FOR ADJUSTMENT AND MANAGEMENT 09/28/2019 [facility] PAT[facility]O NUCLEAR MEDICINE PET CT TECHNOLOGIST Ot E10.65 TYPE 1 DIABETES MELLITUS WITH HYPERGLYCE 09/28/2019 [facility] PAT[facility]O NUCLEAR MEDICINE PET CT TECHNOLOGIST Ot Z45.2 ENCOUNTER FOR ADJUSTMENT AND MANAGEMENT 10/16/2019 [facility]ISM[facility] PAT[facility]O NUCLEAR MEDICINE PET CT TECHNOLOGIST Ot E10.65 TYPE 1 DIABETES MELLITUS WITH HYPERGLYCE 10/16/2019 [facility] PAT[facility]O NUCLEAR MEDICINE PET CT TECHNOLOGIST Ot Z45.2 ENCOUNTER FOR ADJUSTMENT AND MANAGEMENT 10/25/2019 [facility] PATI[facility]O NUCLEAR MEDICINE PET CT TECHNOLOGIST Ot K31.84 GASTROPARESIS 10/25/2019 [facility] PAT[facility]O NUCLEAR MEDICINE PET CT TECHNOLOGIST Ot Z45.2 ENCOUNTER FOR ADJUSTMENT AND MANAGEMENT 11/06/2019 [facility] PAT[facility]O NUCLEAR MEDICINE PET CT TECHNOLOGIST Ot E10.65 TYPE 1 DIABETES MELLITUS WITH HYPERGLYCE 11/06/2019 [facility] PAT[facility]O NUCLEAR MEDICINE PET CT TECHNOLOGIST Ot Z45.2 ENCOUNTER FOR ADJUSTMENT AND MANAGEMENT 11/22/2019 [facility] PATI[facility]O NUCLEAR MEDICINE PET CT TECHNOLOGIST Ot E10.65 TYPE 1 DIABETES MELLITUS WITH HYPERGLYCE 11/22/2019 [facility]ISM[facility] PATI[facility]O NUCLEAR MEDICINE PET CT TECHNOLOGIST Ot Z45.2 ENCOUNTER FOR ADJUSTMENT AND MANAGEMENT 11/26/2019 BISMARK PATIÑOP Ot E10.65 TYPE 1 DIABETES MELLITUS WITH HYPERGLYCE 11/26/2019 [facility]ISM[facility] PATI[facility]O NUCLEAR MEDICINE PET CT TECHNOLOGIST Ot Z45.2 ENCOUNTER FOR ADJUSTMENT AND MANAGEMENT 12/04/2019 BISMARK PATIÑOP Ot E10.42 TYPE 1 DIABETES MELLITUS WITH DIABETIC P 12/04/2019 [facility] PAT[facility]O NUCLEAR MEDICINE PET CT TECHNOLOGIST Ot E10.65 TYPE 1 DIABETES MELLITUS WITH HYPERGLYCE 12/04/2019 BISMARK PATIÑOP Ot E55.9 VITAMIN D DEFICIENCY, UNSPECIFIED 12/04/2019 BISMARK PATIÑOP Ot 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 12/04/2019 BISMARK PATIÑOP Ot N28.9 DISORDER OF KIDNEY AND URETER, UNSPECIFI 12/04/2019 [facility]ISM[facility] PATI[facility]O NUCLEAR MEDICINE PET CT TECHNOLOGIST Ot Z45.2 ENCOUNTER FOR ADJUSTMENT AND MANAGEMENT 12/04/2019 [facility]ISM[facility] PATIÑO NUCLEAR MEDICINE PET CT TECHNOLOGIST Ot E55.9 VITAMIN D DEFICIENCY, UNSPECIFIED 12/04/2019 [facility]ISM[facility] PATI[facility]O NUCLEAR MEDICINE PET CT TECHNOLOGIST Ot E55.9 VITAMIN D DEFICIENCY, UNSPECIFIED 12/04/2019 [facility]ISMARK PATIÑO NUCLEAR MEDICINE PET CT TECHNOLOGIST Ot E10.65 TYPE 1 DIABETES MELLITUS WITH HYPERGLYCE 12/04/2019 BISMARK PATIÑO NUCLEAR MEDICINE PET CT TECHNOLOGIST Ot Z45.2 ENCOUNTER FOR ADJUSTMENT AND MANAGEMENT 12/17/2019 BISMARK PATIÑOP Ot E10.65 TYPE 1 DIABETES MELLITUS WITH HYPERGLYCE 12/17/2019 [facility]ISM[facility] PATI[facility]O NUCLEAR MEDICINE PET CT TECHNOLOGIST Ot Z45.2 ENCOUNTER FOR ADJUSTMENT AND MANAGEMENT 01/01/2020 [facility]ISM[facility] PATIÑO NUCLEAR MEDICINE PET CT TECHNOLOGIST Ot E10.65 TYPE 1 DIABETES MELLITUS WITH HYPERGLYCE 01/01/2020 [facility]ISMARK PATIÑO NUCLEAR MEDICINE PET CT TECHNOLOGIST Ot Z45.2 ENCOUNTER FOR ADJUSTMENT AND MANAGEMENT 01/01/2020 [facility]ISM[facility] PATI[facility]O NUCLEAR MEDICINE PET CT TECHNOLOGIST Ot E10.65 TYPE 1 DIABETES MELLITUS WITH HYPERGLYCE 01/01/2020 [facility]ISM[facility] PATIÑO NUCLEAR MEDICINE PET CT TECHNOLOGIST Ot Z45.2 ENCOUNTER FOR ADJUSTMENT AND MANAGEMENT 01/02/2020 [facility]ISM[facility] PATIÑO NUCLEAR MEDICINE PET CT TECHNOLOGIST Ot E10.42 TYPE 1 DIABETES MELLITUS WITH DIABETIC P 01/02/2020 [facility]ISMARK PATI[facility]O NUCLEAR MEDICINE PET CT TECHNOLOGIST Ot E55.9 VITAMIN D DEFICIENCY, UNSPECIFIED 01/02/2020 [facility] PAT[facility]O NUCLEAR MEDICINE PET CT TECHNOLOGIST Ot 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 01/02/2020 [facility] PATI[facility]O NUCLEAR MEDICINE PET CT TECHNOLOGIST Ot N28.9 DISORDER OF KIDNEY AND URETER, UNSPECIFI 01/10/2020 [facility] PATI[facility]O NUCLEAR MEDICINE PET CT TECHNOLOGIST Ot E10.42 TYPE 1 DIABETES MELLITUS WITH DIABETIC P 01/10/2020 [facility]ISM[facility] PATIÑO NUCLEAR MEDICINE PET CT TECHNOLOGIST Ot E10.65 TYPE 1 DIABETES MELLITUS WITH HYPERGLYCE 01/10/2020 [facility] PATI[facility]O NUCLEAR MEDICINE PET CT TECHNOLOGIST Ot E55.9 VITAMIN D DEFICIENCY, UNSPECIFIED 01/10/2020 [facility]ISM[facility] PATI[facility]O NUCLEAR MEDICINE PET CT TECHNOLOGIST Ot 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 01/10/2020 [facility]ISM[facility] PATI[facility]O NUCLEAR MEDICINE PET CT TECHNOLOGIST Ot N28.9 DISORDER OF KIDNEY AND URETER, UNSPECIFI 01/10/2020 [facility]ISM[facility] PATIÑO NUCLEAR MEDICINE PET CT TECHNOLOGIST Ot Z45.2 ENCOUNTER FOR ADJUSTMENT AND MANAGEMENT 01/29/2020 [facility]ISM[facility] PATIÑO NUCLEAR MEDICINE PET CT TECHNOLOGIST Ot E10.65 TYPE 1 DIABETES MELLITUS WITH HYPERGLYCE 01/29/2020 [facility] PATI[facility]O NUCLEAR MEDICINE PET CT TECHNOLOGIST Ot Z45.2 ENCOUNTER FOR ADJUSTMENT AND MANAGEMENT 02/26/2020 [facility]ISM[facility] PATI[facility]O NUCLEAR MEDICINE PET CT TECHNOLOGIST Ot E10.65 TYPE 1 DIABETES MELLITUS WITH HYPERGLYCE 02/26/2020 [facility] PATI[facility]O NUCLEAR MEDICINE PET CT TECHNOLOGIST Ot Z45.2 ENCOUNTER FOR ADJUSTMENT AND MANAGEMENT 03/03/2020 [facility]ISM[facility] PATI[facility]O NUCLEAR MEDICINE PET CT TECHNOLOGIST Ot E10.65 TYPE 1 DIABETES MELLITUS WITH HYPERGLYCE 03/03/2020 [facility] PATIÑO NUCLEAR MEDICINE PET CT TECHNOLOGIST Ot Z45.2 ENCOUNTER FOR ADJUSTMENT AND MANAGEMENT 03/09/2020 [facility]ISMARK PATIÑO NUCLEAR MEDICINE PET CT TECHNOLOGIST Ot E10.65 TYPE 1 DIABETES MELLITUS WITH HYPERGLYCE 03/09/2020 [facility]ISMARK PATI[facility]O NUCLEAR MEDICINE PET CT TECHNOLOGIST Ot Z45.2 ENCOUNTER FOR ADJUSTMENT AND MANAGEMENT 03/26/2020 [facility]ISMARK PATIÑO NUCLEAR MEDICINE PET CT TECHNOLOGIST Ot E10.65 TYPE 1 DIABETES MELLITUS WITH HYPERGLYCE 03/26/2020 [facility]ISM[facility] PATIÑO NUCLEAR MEDICINE PET CT TECHNOLOGIST Ot Z45.2 ENCOUNTER FOR ADJUSTMENT AND MANAGEMENT 03/26/2020 BISMARK PATIÑO SAROJ Ot E10.65 TYPE 1 DIABETES MELLITUS WITH HYPERGLYCE 03/26/2020 BISMARK PATIÑO NUCLEAR MEDICINE PET CT TECHNOLOGIST Ot Z45.2 ENCOUNTER FOR ADJUSTMENT AND MANAGEMENT 04/03/2020 [facility]ISMARK PATIÑO NUCLEAR MEDICINE PET CT TECHNOLOGIST Ot E10.65 TYPE 1 DIABETES MELLITUS WITH HYPERGLYCE 04/03/2020 BISMARK PATIÑO SAROJ Ot Z45.2 ENCOUNTER FOR ADJUSTMENT AND MANAGEMENT Procedures Code Description Performed By Per formed On [facility]avez 09/22/2012 01914 UA L ALICE DIP 09/22/2012 90136 MICR O ALBUMIN-IN HOUSE 09/22/2012 68432 A1C (IN-HOUSE) 09/22/2012 72704 CBC 09/25/2012 37635 CMP 09/25/2012 47530 BMP 12/01/2012 01787 A1C (RML) 12/01/2012 69948 URIN E DRUG SCREEN (IN-HOUSE) 12/01/2012 G0008 FLU ADMINISTRATION (MEDICARE ONLY) 08/09/2013 41327 A1C (IN-HOUSE) 08/09/2013 Chris Taylor 11/02/2013 99839 A1C (IN-HOUSE) 02/05/2014 90875 MICR OALBUMIN 05/31/2014 92751 A1C (IN-HOUSE) 05/31/2014 39174 MICR O ALBUMIN-IN HOUSE 05/31/2014 G0008 FLU ADMINISTRATION (MEDICARE ONLY) 08/26/2014 62963 ROUT INE VENIPUNCTURE 09/02/2014 21604 A1C (IN-HOUSE) 09/02/2014 94302 CBC 09/02/2014 [id number] GF R CALC (RESULT ONLY) 09/02/2014 98431 CMP 09/02/2014 68789 LIPI D PANEL 09/02/2014 55977 MICR OALBUMIN 12/11/2014 80645 A1C (IN-HOUSE) 12/11/2014 04011 MICR O ALBUMIN-IN HOUSE 12/11/2014 Results Test Result Range Microalb/Creat Ratio, [facility] Ur - 7 10:46 Creatinine, Urine 115.6 mg/dL Not Estab. Microalbumin, Urine 499.2 ug/mL Not Esta b. Microalb/Creat Ratio 431.8 mg/g creat 0. 0-30.0 Automated blood complete blood count (he mogram) panel - 01/27/17 10:50 Blood leukocytes automated count (number/volume) 7.9 10*3/uL 4.3-11.0 Blood erythrocytes automated count (number/volume) 4.56 10*6/uL 4.35-5.85 Venous blood hemoglobin measurement (mass/volume) 13.7 g/dL 13.3-17.7 Blood hematocrit (volume fraction) 39 % 40-54 Automated erythrocyte mean corpuscular volume 86 [ foz_us] 80-99 Automated erythrocyte mean corpuscular h emoglobin (mass per erythrocyte) 30 pg 25-34 Automated erythrocyte mean corpuscular h emoglobin concentration measurement (mass/volume) 35 g/dL 32-36 Automated erythrocyte distribution width ratio 13. 4 % 10.0- 14.5 Automated blood platelet count (count/volume) 230 10*3/uL 130-400 Automated blood platelet mean volume measurement 10.6 [foz_us] 7.4-10.4 Comprehensive metabolic panel - 01/27/17 10:50 Serum or plasma sodium measurement (moles/volume) 142 mmol/L 135-145 Serum or plasma potassium measurement (moles/volume) 3.6 mmol/L 3.6-5.0 Serum or plasma chloride measurement (moles/volume) 107 mmol/L 98-107 Carbon dioxide 27 mmol/L 21-32 Serum or plasma anion gap determination (moles/volume) 8 mmol/L 5-14 Serum or plasma urea nitrogen measurement (mass/volume ) 14 mg/dL 7-18 Serum or plasma creatinine measurement (mass/volume) 1.50 mg/dL 0.60-1.30 Serum or plasma urea nitrogen/creatinine mass ratio 9 NRG Serum or plasma creatinine measurement w ith calculation of estimated glomerular filtration rate 52 NRG Serum or plasma glucose measurement (mass/volume) 104 mg/dL 70-105 Serum or plasma calcium measurement (mass/volume) 8.9 mg/dL 8.5-10.1 Serum or plasma total bilirubin measurement (mass/volu me) 0.5 mg/dL 0.1-1.0 Serum or plasma alkaline phosphatase enrrique surement (enzymatic activity/volume) 73 U/L 40-136 Serum or plasma aspartate aminotransfera se measurement (enzymatic activity/volume) 12 U/L 5-34 Serum or plasma alanine aminotransferase measurement (enzymatic activity/volume) 12 U/L 0-55 Serum or plasma protein measurement (mass/volume) 6.5 g/dL 6.4-8.2 Serum or plasma albumin measurement (mass/volume) 3.8 g/dL 3.2-4.5 Lipid 1996 panel - 01/27/17 10:50 Serum or plasma triglyceride measurement (mass/volume) 56 mg/dL <150 Serum or plasma cholesterol measurement (mass/volume) 138 mg/dL < 200 Serum or plasma cholesterol in HDL measurement (mass/v olume) 44 mg/dL 40-60 Cholesterol in LDL [mass/volume] in serum or plasma by direct assay 75 mg/dL 1-129 Serum or plasma cholesterol in VLDL measurement (mass/ volume) 11 mg/dL 5-40 THYROID STIMULATING HORMONE - 01/27/17 1 0:50 THYROID STIMULATING HORMONE 1.77 u[iU]/mL 0.35-4.94 Automated blood complete blood count (he mogram) panel - 01/20/18 13:15 Blood leukocytes automated count (number/volume) 9.2 10*3/uL 4.3-11.0 Blood erythrocytes automated count (number/volume) 4.65 10*6/uL 4.35-5.85 Venous blood hemoglobin measurement (mass/volume) 14.5 g/dL 13.3-17.7 Blood hematocrit (volume fraction) 40 % 40-54 Automated erythrocyte mean corpuscular volume 86 [ foz_us] 80-99 Automated erythrocyte mean corpuscular h emoglobin (mass per erythrocyte) 31 pg 25-34 Automated erythrocyte mean corpuscular h emoglobin concentration measurement (mass/volume) 36 g/dL 32-36 Automated erythrocyte distribution width ratio 13. 0 % 10.0- 14.5 Automated blood platelet count (count/volume) 262 10*3/uL 130-400 Automated blood platelet mean volume measurement 10.4 [foz_us] 7.4-10.4 Comprehensive metabolic panel - 01/20/18 13:15 Serum or plasma sodium measurement (moles/volume) 141 mmol/L 135-145 Serum or plasma potassium measurement (moles/volume) 3.8 mmol/L 3.6-5.0 Serum or plasma chloride measurement (moles/volume) 105 mmol/L 98-107 Carbon dioxide 25 mmol/L 21-32 Serum or plasma anion gap determination (moles/volume) 11 mmol/L 5-14 Serum or plasma urea nitrogen measurement (mass/volume ) 12 mg/dL 7-18 Serum or plasma creatinine measurement (mass/volume) 1.55 mg/dL 0.60-1.30 Serum or plasma urea nitrogen/creatinine mass ratio 8 NRG Serum or plasma creatinine measurement w ith calculation of estimated glomerular filtration rate 49 NRG Serum or plasma glucose measurement (mass/volume) 170 mg/dL 70-105 Serum or plasma calcium measurement (mass/volume) 9.4 mg/dL 8.5-10.1 Serum or plasma total bilirubin measurement (mass/volu me) 0.5 mg/dL 0.1-1.0 Serum or plasma alkaline phosphatase enrrique surement (enzymatic activity/volume) 71 U/L 40-136 Serum or plasma aspartate aminotransfera se measurement (enzymatic activity/volume) 15 U/L 5-34 Serum or plasma alanine aminotransferase measurement (enzymatic activity/volume) 14 U/L 0-55 Serum or plasma protein measurement (mass/volume) 6.9 g/dL 6.4-8.2 Serum or plasma albumin measurement (mass/volume) 4.1 g/dL 3.2-4.5 Lipid 1996 panel - 01/20/18 13:15 Serum or plasma triglyceride measurement (mass/volume) 82 mg/dL <150 Serum or plasma cholesterol measurement (mass/volume) 136 mg/dL < 200 Serum or plasma cholesterol in HDL measurement (mass/v olume) 40 mg/dL 40-60 Cholesterol in LDL [mass/volume] in serum or plasma by direct assay 76 mg/dL 1-129 Serum or plasma cholesterol in VLDL measurement (mass/ volume) 16 mg/dL 5-40 THYROID STIMULATING HORMONE - 01/20/18 1 3:15 THYROID STIMULATING HORMONE 1.68 u[iU]/mL 0.35-4.94 Automated blood complete blood count (he mogram) panel - 07/27/18 13:45 Blood leukocytes automated count (number/volume) 7.8 10*3/uL 4.3-11.0 Blood erythrocytes automated count (number/volume) 4.21 10*6/uL 4.35-5.85 Venous blood hemoglobin measurement (mass/volume) 13.0 g/dL 13.3-17.7 Blood hematocrit (volume fraction) 37 % 40-54 Automated erythrocyte mean corpuscular volume 88 [ foz_us] 80-99 Automated erythrocyte mean corpuscular h emoglobin (mass per erythrocyte) 31 pg 25-34 Automated erythrocyte mean corpuscular h emoglobin concentration measurement (mass/volume) 35 g/dL 32-36 Automated erythrocyte distribution width ratio 13. 0 % 10.0- 14.5 Automated blood platelet count (count/volume) 243 10*3/uL 130-400 Automated blood platelet mean volume measurement 10.8 [foz_us] 7.4-10.4 Comprehensive metabolic panel - 07/27/18 13:45 Serum or plasma sodium measurement (moles/volume) 137 mmol/L 135-145 Serum or plasma potassium measurement (moles/volume) 4.0 mmol/L 3.6-5.0 Serum or plasma chloride measurement (moles/volume) 105 mmol/L 98-107 Carbon dioxide 27 mmol/L 21-32 Serum or plasma anion gap determination (moles/volume) 5 mmol/L 5-14 Serum or plasma urea nitrogen measurement (mass/volume ) 15 mg/dL 7-18 Serum or plasma creatinine measurement (mass/volume) 1.62 mg/dL 0.60-1.30 Serum or plasma urea nitrogen/creatinine mass ratio 9 NRG Serum or plasma creatinine measurement w ith calculation of estimated glomerular filtration rate 47 NRG Serum or plasma glucose measurement (mass/volume) 235 mg/dL 70-105 Serum or plasma calcium measurement (mass/volume) 9.7 mg/dL 8.5-10.1 Serum or plasma total bilirubin measurement (mass/volu me) 0.5 mg/dL 0.1-1.0 Serum or plasma alkaline phosphatase enrrique surement (enzymatic activity/volume) 71 U/L 40-136 Serum or plasma aspartate aminotransfera se measurement (enzymatic activity/volume) 16 U/L 5-34 Serum or plasma alanine aminotransferase measurement (enzymatic activity/volume) 11 U/L 0-55 Serum or plasma protein measurement (mass/volume) 6.8 g/dL 6.4-8.2 Serum or plasma albumin measurement (mass/volume) 3.9 g/dL 3.2-4.5 CALCIUM CORRECTED 9.8 mg/dL 8.5-10.1 Lipid 1996 panel - 07/27/18 13:45 Serum or plasma triglyceride measurement (mass/volume) 83 mg/dL <150 Serum or plasma cholesterol measurement (mass/volume) 133 mg/dL < 200 Serum or plasma cholesterol in HDL measurement (mass/v olume) 48 mg/dL 40-60 Cholesterol in LDL [mass/volume] in serum or plasma by direct assay 67 mg/dL 1-129 Serum or plasma cholesterol in VLDL measurement (mass/ volume) 17 mg/dL 5-40 THYROID STIMULATING HORMONE - 07/27/18 1 3:45 THYROID STIMULATING HORMONE 1.14 u[iU]/mL 0.35-4.94 Serum or plasma testosterone measurement (mass/volume) - 07/27/18 13:45 Testosterone [mass or moles/volume] in serum or plasma 1133.62 % 240.24-870.68 Cyanocobalamin measurement - 07/27/18 13 :45 Vitamin B12 568 pg/mL 190-1100 VITAMIN D 25-HYDROXY - 07/27/18 13:45 VITAMIN D 25-HYDROXY (TOTAL) 33.8 % 3 0.0-100.0 PANEL (PROFILE 1) - 08/07/18 13 :45 Creatinine 156.6 mg/dL > or = 20.0 pH 6.60 4.5 - 9.0 Oxidant NEGATIVE mcg/mL <200 Amphetamines NEGATIVE ng/mL <500 medMATCH Amphetamines CONSISTENT NRG Benzodiazepines POSITIVE ng/mL <100 Marijuana Metabolite NEGATIVE ng/mL <20 medMATCH Marijuana Metab CONSISTENT NRG Cocaine Metabolite NEGATIVE ng/mL <150 medMATCH Cocaine Metab CONSISTENT NRG Opiates NEGATIVE ng/mL <100 medMATCH Opiates CONSISTENT NRG Oxycodone NEGATIVE ng/mL <100 medMATCH Oxycodone CONSISTENT NRG COMMENT NRG Alphahydroxyalprazolam NEGATIVE ng/mL <25 medMATCH aOH alprazolam CONSISTENT NRG Alphahydroxymidazolam NEGATIVE ng/mL < 50 medMATCH aOH midazolam CONSISTENT NRG Alphahydroxytriazolam NEGATIVE ng/mL < 50 medMATCH aOH triazolam CONSISTENT NRG Aminoclonazepam NEGATIVE ng/mL <25 medMATCH Aminoclonazepam CONSISTENT NRG Hydroxyethylflurazepam NEGATIVE ng/mL <50 medMATCH OH,Et flurazepam CONSISTENT NR G Lorazepam NEGATIVE ng/mL <50 medMATCH Lorazepam CONSISTENT NRG Nordiazepam 1993 ng/mL <50 medMATCH Nordiazepam INCONSISTENT NRG Oxazepam 7086 ng/mL <50 medMATCH Oxazepam INCONSISTENT NRG Temazepam 4315 ng/mL <50 medMATCH Temazepam INCONSISTENT NRG Barbiturates NEGATIVE ng/mL <300 medMATCH Barbiturates CONSISTENT NRG Methadone Metabolite NEGATIVE ng/mL <100 medMATCH Methadone Metab CONSISTENT NRG Phencyclidine NEGATIVE ng/mL <25 medMATCH Phencyclidine CONSISTENT NRG Complete blood count (CBC) with automate d white blood cell (WBC) differential - 08/24/19 13:41 Blood leukocytes automated count (number/volume) 7.7 10*3/uL 4.3-11.0 Blood erythrocytes automated count (number/volume) 4.37 10*6/uL 4.35-5.85 Venous blood hemoglobin measurement (mass/volume) 13.0 g/dL 13.3-17.7 Blood hematocrit (volume fraction) 37 % 40-54 Automated erythrocyte mean corpuscular volume 85 [ foz_us] 80-99 Automated erythrocyte mean corpuscular h emoglobin (mass per erythrocyte) 30 pg 25-34 Automated erythrocyte mean corpuscular h emoglobin concentration measurement (mass/volume) 35 g/dL 32-36 Automated erythrocyte distribution width ratio 13. 6 % 10.0- 14.5 Automated blood platelet count (count/volume) 342 10*3/uL 130-400 Automated blood platelet mean volume measurement 9.8 [foz_us] 7.4-10.4 Automated blood neutrophils/100 leukocytes 67 % 42-75 Automated blood lymphocytes/100 leukocytes 22 % 12-44 Blood monocytes/100 leukocytes 6 % 0-12 Automated blood eosinophils/100 leukocytes 3 % 0-10 Automated blood basophils/100 leukocytes 2 % 0-10 Blood neutrophils automated count (number/volume) 5.2 10*3 1.8-7.8 Blood lymphocytes automated count (number/volume) 1.7 10*3 1.0-4.0 Blood monocytes automated count (number/volume) 0. 4 10*3 0.0-1.0 Automated eosinophil count 0.3 10*3/uL 0 .0-0.3 Automated blood basophil count (count/volume) 0.1 10*3/uL 0.0-0.1 Comprehensive metabolic panel - 08/24/19 13:41 Serum or plasma sodium measurement (moles/volume) 139 mmol/L 135-145 Serum or plasma potassium measurement (moles/volume) 4.3 mmol/L 3.6-5.0 Serum or plasma chloride measurement (moles/volume) 106 mmol/L 98-107 Carbon dioxide 24 mmol/L 21-32 Serum or plasma anion gap determination (moles/volume) 9 mmol/L 5-14 Serum or plasma urea nitrogen measurement (mass/volume ) 30 mg/dL 7-18 Serum or plasma creatinine measurement (mass/volume) 1.50 mg/dL 0.60-1.30 Serum or plasma urea nitrogen/creatinine mass ratio 20 NRG Serum or plasma creatinine measurement w ith calculation of estimated glomerular filtration rate 51 NRG Serum or plasma glucose measurement (mass/volume) 214 mg/dL 70-105 Serum or plasma calcium measurement (mass/volume) 10.0 mg/dL 8.5-10.1 Serum or plasma total bilirubin measurement (mass/volu me) 0.3 mg/dL 0.1-1.0 Serum or plasma alkaline phosphatase enrrique surement (enzymatic activity/volume) 116 U/L 40-136 Serum or plasma aspartate aminotransfera se measurement (enzymatic activity/volume) 21 U/L 5-34 Serum or plasma alanine aminotransferase measurement (enzymatic activity/volume) 24 U/L 0-55 Serum or plasma protein measurement (mass/volume) 7.7 g/dL 6.4-8.2 Serum or plasma albumin measurement (mass/volume) 4.0 g/dL 3.2-4.5 CALCIUM CORRECTED 10.0 mg/dL 8.5-10.1 Lipid 1996 panel - 08/24/19 13:41 Serum or plasma triglyceride measurement (mass/volume) 91 mg/dL <150 Serum or plasma cholesterol measurement (mass/volume) 196 mg/dL < 200 Serum or plasma cholesterol in HDL measurement (mass/v olume) 80 mg/dL 40-60 Cholesterol in LDL [mass/volume] in serum or plasma by direct assay 84 mg/dL 1-129 Serum or plasma cholesterol in VLDL measurement (mass/ volume) 18 mg/dL 5-40 THYROID STIMULATING HORMONE - 08/24/19 1 3:41 THYROID STIMULATING HORMONE 1.14 u[iU]/mL 0.35-4.94 Serum or plasma testosterone measurement (mass/volume) - 08/24/19 13:41 TESTOSTERONE TOTAL SERUM C 847.06 % 24 0.24-870.68 VITAMIN B 12 - 08/24/19 13:41 VITAMIN B 12 687 pg/mL 190-1100 VITAMIN D 25-HYDROXY - 08/24/19 13:41 VITAMIN D 25-HYDROXY (TOTAL) 12.3 % 3 0.0-100.0 Comprehensive metabolic panel - 12/04/19 13:40 Serum or plasma sodium measurement (moles/volume) 138 mmol/L 135-145 Serum or plasma potassium measurement (moles/volume) 4.1 mmol/L 3.6-5.0 Serum or plasma chloride measurement (moles/volume) 107 mmol/L 98-107 Carbon dioxide 22 mmol/L 21-32 Serum or plasma anion gap determination (moles/volume) 9 mmol/L 5-14 Serum or plasma urea nitrogen measurement (mass/volume ) 29 mg/dL 7-18 Serum or plasma creatinine measurement (mass/volume) 1.71 mg/dL 0.60-1.30 Serum or plasma urea nitrogen/creatinine mass ratio 17 NRG Serum or plasma creatinine measurement w ith calculation of estimated glomerular filtration rate 44 NRG Serum or plasma glucose measurement (mass/volume) 177 mg/dL 70-105 Serum or plasma calcium measurement (mass/volume) 9.3 mg/dL 8.5-10.1 Serum or plasma total bilirubin measurement (mass/volu me) 0.3 mg/dL 0.1-1.0 Serum or plasma alkaline phosphatase enrrique surement (enzymatic activity/volume) 89 U/L 40-136 Serum or plasma aspartate aminotransfera se measurement (enzymatic activity/volume) 25 U/L 5-34 Serum or plasma alanine aminotransferase measurement (enzymatic activity/volume) 26 U/L 0-55 Serum or plasma protein measurement (mass/volume) 7.2 g/dL 6.4-8.2 Serum or plasma albumin measurement (mass/volume) 4.0 g/dL 3.2-4.5 CALCIUM CORRECTED 9.3 mg/dL 8.5-10.1 VITAMIN D 25-HYDROXY - 12/04/19 13:40 VITAMIN D 25-HYDROXY (TOTAL) 28.2 % 3 0.0-100.0 Encounters ACCT No. Visit Date/Time Discharge Status Pt. Type Provider Facility Loc./Unit Complaint [id number] 01/21/2017 11:09:00 Document Registration [id number] 09/03/2019 13:40:00 09/03/2019 23:59:5 9 CLS Outpatient BISMARK PATIÑO APRN [facility] [id number] 08/07/2018 13:20:00 Document Registration [id number] 12/11/2014 15:45:00 12/11/2014 23:59: 59 CLS Outpatient BISMARK PATIÑO APRN [id number] 12/11/2014 15:45:00 12/11/2014 23:59: 59 CLS Outpatient BISMARK PATIÑO APRN [id number] 09/02/2014 11:26:00 09/02/2014 23:59: 59 CLS Outpatient BISMARK PATIÑO APRN [id number] 08/26/2014 08:57:00 08/26/2014 23:59: 59 CLS Outpatient BISMARK PATIÑO APRN [id number] 05/31/2014 15:47:00 05/31/2014 23:59: 59 CLS Outpatient BISMARK PATIÑO APRN [id number] 05/31/2014 15:47:00 05/31/2014 23:59: 59 CLS Outpatient BISMARK PATIÑO APRN [id number] 04/18/2014 00:00:00 04/18/2014 23:59: 59 CLS Outpatient DEE DEE RIZORAYNA MendezW [id number] 04/04/2014 00:00:00 04/04/2014 23:59: 59 CLS Outpatient LUIS A SUN DDS [id number] 03/29/2014 14:42:00 03/29/2014 23:59: 59 CLS Outpatient BISMARK PATIÑO APRN [id number] 03/01/2014 09:53:00 03/01/2014 23:59: 59 CLS Outpatient BISMARK PATIÑO APRN [id number] 02/05/2014 14:10:00 02/05/2014 23:59: 59 CLS Outpatient HUNTER ESPOSITO DO [id number] 12/31/2013 00:00:00 12/31/2013 23:59: 59 CLS Outpatient LUIS A SUN DDS [id number] 11/01/2013 11:38:00 11/01/2013 23:59: 59 CLS Outpatient CHANG NORWOOD MD [id number] 08/09/2013 09:35:00 08/09/2013 23:59: 59 CLS Outpatient AB WAHL MD [id number] 08/09/2013 09:35:00 08/09/2013 23:59: 59 CLS Outpatient AB WAHL MD [id number] 02/08/2013 14:28:00 02/08/2013 23:59: 59 CLS Outpatient [id number] 12/04/2012 10:12:00 12/04/2012 23:59: 59 CLS Outpatient LAURO RAZA MD [id number] 12/01/2012 13:38:00 12/01/2012 23:59: 59 CLS Outpatient CHANG NORWOOD MD [id number] 09/22/2012 16:12:23 09/22/2012 23:59: 59 CLS Outpatient CATE HUNTER RODRÍGUEZ [id number] 09/22/2012 13:39:00 09/22/2012 23:59: 59 CLS Outpatient CHANG NORWOOD MD [id number] 04/26/2013 09:52:00 Document Registration [id number] 04/26/2013 09:52:00 Document Registration [id number] 03/26/2020 12:58:00 020 23:59:59 CLS Outpatient BISMARK PATIÑO [facility] [place],DIABETES ME LITIUS [id number] 02/26/2020 13:23:00 020 00:01:00 DIS Outpatient BISMARK PATIÑO [facility] [place],DIABETES ME LITIUS [id number] 12/04/2019 13:02:00 020 13:45:00 DIS Outpatient BISMARK PATIÑO [facility] E10.42,F39.,E55.9,N28. 9 [id number] 11/06/2019 13:27:00 020 00:01:00 DIS Outpatient BISMARK PATIÑO [facility] [place],DIABETES ME LITIUS [id number] 10/26/2019 00:11:00 019 23:59:59 CLS Preadmit BISMARK PATIÑO [facility] GASTROPARESIS [id number] 07/27/2019 13:12:00 019 00:01:00 DIS Outpatient BISMARK PATIÑOP [facility] GASTROPARESIS [id number] 06/25/2019 13:05:00 019 00:01:00 DIS Outpatient BISMARK PATIÑOP [facility] GASTROPARESIS [id number] 03/22/2019 12:55:00 00:01:00 DIS Outpatient BISMARK PATIÑOP [facility] GASTROPARESIS [id number] 12/28/2018 13:02:00 019 00:01:00 DIS Outpatient BISMARK PATIÑOP [facility] GASTROPARESIS [id number] 09/21/2018 13:09:00 018 00:01:00 DIS Outpatient BISMARK PATIÑOP [facility] GASTROPARESIS [id number] 07/27/2018 13:18:00 018 23:59:59 CLS Outpatient BISMARK PATIÑOP [facility] E10.49,R53.82 [id number] 05/25/2018 13:07:00 018 00:01:00 DIS Outpatient BISMARK PATIOÑP [facility] GASTROPARESIS [id number] 12/23/2017 14:00:00 018 00:01:00 DIS Outpatient BISMARK PATIÑOP [facility] GASTROPARESIS [id number] 01/20/2018 13:03:00 018 23:59:59 CLS Outpatient BISMARK PATIÑO SAROJ [facility] DMI,NUROPOTHY [id number] 10/27/2017 12:52:00 018 00:01:00 DIS Outpatient BISMARK PATIÑO SAROJ [facility] GASTROPARESIS [id number] 07/26/2017 12:59:00 017 00:01:00 DIS Outpatient HAROON BISMARK Eric KYLE [facility] GASTROPARESIS [id number] 04/22/2017 13:07:00 017 00:01:00 DIS Outpatient BISMARK PATIÑO [facility] GASTROPARESIS [id number] 01/21/2017 12:57:00 017 00:01:00 DIS Outpatient HAROON BISMARK Eric KYLE [facility] GASTROPARESIS [id number] 01/27/2017 10:35:00 017 23:59:59 CLS Outpatient BISMARK PATIÑO [facility] DIABETES [id number] 10/29/2016 12:50:00 016 00:01:00 DIS Outpatient BISMARK PATIÑO [facility] GASTROPARESIS [id number] 07/16/2016 13:09:00 016 00:01:00 DIS Outpatient BISMARK PATIÑO [facility] GASTROPARESIS [id number] 03/22/2016 13:08:00 016 00:01:00 DIS Outpatient BISMARK PATIÑO [facility] GASTROPARESIS [id number] 11/24/2015 14:29:00 016 17:45:00 DIS Outpatient LAURO RAZA MD [facility] DYSPHAGIA [id number] 10/24/2015 13:08:00 015 00:01:00 DIS Outpatient BISMARK PATIÑO [facility] GASTROPARESIS [id number] 11/18/2015 05:58:00 015 23:59:59 CLS Outpatient LAURO RAZA MD Via [facility] PREOP DYSPHAGIA [id number] 07/25/2015 13:05:00 015 00:01:00 DIS Outpatient BISMARK PATIÑO [facility] GASTROPARESIS [id number] 05/30/2015 13:05:00 015 00:01:00 DIS Outpatient BISMARK PATÑIOP [facility] GASTROPARESIS [id number] 02/28/2015 13:10:00 015 00:01:00 DIS Outpatient HAROONBISMARK Eric KYLE [facility] GASTROPARESIS [id number] 11/22/2014 13:00:00 00:01:00 DIS Outpatient AB WAHL MD [facility] GASTROPARESIS [id number] 08/26/2014 13:18:00 00:01:00 DIS Outpatient AB WAHL MD [facility] GASTROPARESIS [id number] 04/30/2014 11:38:00 014 00:01:00 DIS Outpatient AB WAHL MD [facility] GASTROPARESIS [id number] 12/10/2013 13:16:00 014 00:01:00 DIS Outpatient AB WAHL MD [facility] GASTROPARESIS [id number] 10/14/2013 21:27:00 013 21:46:00 DIS Emergency HODA KOTHARI APRN Via [facility] ER RIGHT INDEX FINGER PAIN [id number] 08/16/2013 13:43:00 013 00:01:00 DIS Outpatient AB WAHL MD [facility] GASTROPARESIS [id number] 05/10/2013 13:56:00 013 00:01:00 DIS Outpatient AB WAHL MD [facility] GASTROPARESIS [id number] 12/27/2012 11:50:00 013 00:01:00 DIS Outpatient AB WAHL MD Via [facility] SURG R MONTHLY [facility] [id number] 03/28/2013 00:00:00 Document Registration [id number] 01/22/2013 00:00:00 Document Registration [id number] 01/18/2013 14:05:00 Document Registration [id number] 12/27/2012 11:44:00 Document Registration [id number] 11/22/2012 08:00:00 Document Registration [id number] 11/16/2012 12:12:00 Document Registration [id number] 10/23/2012 07:14:00 Document Registration [id number] 09/22/2012 15:29:00 Document Registration [id number] 09/14/2012 19:46:00 Document Registration [id number] 07/03/2012 01:00:00 Document Registration [id number] 07/02/2012 20:35:00 Document Registration [id number] 07/01/2012 09:42:00 Document Registration [id number] 05/29/2012 00:17:00 Document Registration [id number] 05/21/2012 08:52:00 Document Registration [id number] 04/03/2012 10:34:00 Document Registration [id number] 04/01/2012 23:59:00 Document Registration [id number] 03/08/2012 19:10:00 Document Registration
== END 2020-04-17 20:33 | disposition home or self-care (01) ==
LOC: EDUNIT# 17:40 → ER 17:41
DX: R11.2 Nausea with vomiting, unspecified (principal); E10.9 Type 1 diabetes mellitus without complications; Z88.2 Allergy status to sulfonamides; Z88.1 Allergy status to other antibiotic agents
CPT/HCPCS: 36415; 80053; 81000; 82150; 83690; 85025

== ENCOUNTER 2020-05-28 13:03 | Outpatient (RCR) | payer MEDICARE, MEDICAID ==
[2020-03-26 13:11] VITALS: BP 126/89
[2020-04-30 13:39] VITALS: BP 128/85
[~2020-05-28] VITALS: Ht 172.7 cm; Wt 90.0 kg
[~2020-05-28 13:03] MED LIST changes: +HEParin (CENTRAL IV FLUSH) 500 UNIT/5 ML SYR IV ONE; +HEParin (CENTRAL IV FLUSH) 500 UNIT/5 ML SYR ONE; +PROM25TA14 PO
[2020-05-28] MEDS ORDERED: HEParin (CENTRAL IV FLUSH) 500 UNIT/5 ML SYR ONE (13:04)
[2020-05-28 13:13] VITALS: BP 116/81
[2020-05-28] MEDS ORDERED: HEParin (CENTRAL IV FLUSH) 500 UNIT/5 ML SYR IV ONE (13:30)
== END 2020-06-24 | disposition home or self-care (01) ==
LOC: SDC 13:03
PROVIDERS: ATTEND Nurse Practitioner Community Health
DX: Z45.2 Encounter for adjustment and management of vascular access device (principal); E10.65 Type 1 diabetes mellitus with hyperglycemia
CPT/HCPCS: 96523

== ENCOUNTER 2020-08-22 12:57 | Outpatient (RCR) | payer MEDICARE, MEDICAID ==
[2020-06-25 13:30] VITALS: BP 122/82
[2020-07-23 13:19] VITALS: BP 114/80
[~2020-08-22] VITALS: Ht 172.7 cm; Wt 90.0 kg
[2020-08-22 12:55] VITALS: BP 109/65
== END 2020-09-23 | disposition home or self-care (01) ==
LOC: SDC 12:57
PROVIDERS: ATTEND Nurse Practitioner Community Health
DX: Z45.2 Encounter for adjustment and management of vascular access device (principal)
CPT/HCPCS: 96523

== ENCOUNTER 2020-09-25 09:23 | Inpatient (IN) | payer MEDICARE, MEDICAID ==
[~2020-09-25] VITALS: Ht 172.7 cm; Wt 64.0 kg
[~2020-09-25 09:23] MED LIST changes: -HEParin (CENTRAL IV FLUSH) 500 UNIT/5 ML SYR IV ONE; -HEParin (CENTRAL IV FLUSH) 500 UNIT/5 ML SYR ONE
--- NOTE | 2020-09-25 09:46 | ED General ---
General Chief Complaint: Glucose Problems Stated Complaint: N/V DIZZY Source of Information: Patient Exam Limitations: No Limitations History of Present Illness Date Seen by Provider: Sep 25, 2020 Time Seen by Provider: 09:45 Initial Comments Patient is a 45-year-old male who presents to the emergency room today with a chief complaint of abdominal discomfort, nausea vomiting. Patient is a type I diabetic since the age of 7. He has an insulin pump in place. Patient states that he cannot recall eating any bad food, he denies any sick contact exposures. Patient denies any hematemesis, black or bloody. He denies any bloody stools. No diarrhea is reported. Patient denies any problems urinating. He denies any recent illnesses such as fevers, cough, congestion, nasal drainage. Patient states that he has had Phenergan at home, none today but took it all day long yesterday to try to alleviate his symptoms. He complains of being thirsty. Patient states that he ran out of his Valium which was prescribed according to [facility] on September 05, number 84 tablets for 28-day course. Patient reported to nursing staff that he takes 30 mg of Valium twice a day. Patient states that his Valium dosing was just increased by his primary care provider last week. All other review of systems reviewed and negative except as stated above. Timing/Duration: 1-2 Days Severity: Severe Associated Systoms: No Chest Pain, No Cough, No Fever/Chills, No Loss of Appetite; Nausea/Vomiting, Weakness Allergies and Home Medications Allergies Coded Allergies: Sulfa (Sulfonamide Antibiotics) (Verified Allergy, Intermediate, RASH/HIV ES, 07/02/12) ciprofloxacin (Verified Allergy, Intermediate, SWELLING, 03/08/12) Home Medications Enalapril Maleate 10 Mg Tablet, 10 MG PO HS, (Reported) Insulin Aspart 100 Unit/1 Ml Susp, SQ UD, (Reported) MAX OF 50 UNITS DAILY PER PUMP Oxycodone HCl/Acetaminophen 1 Each Tablet, 1 EA PO Q6H PRN for PAIN-MODERATE (5- 7), (Reported) Paroxetine HCl 20 Mg Tablet, 20 MG PO DAILY, (Reported) Promethazine HCl 50 Mg Tablet, 50 MG PO Q8H PRN for NAUSEA/VOMITING-2ND LINE, (Reported) Patient Home Medication List Home Medication List Reviewed: Yes Review of Systems Review of Systems Constitutional: weakness EENTM: no symptoms reported Respiratory: no symptoms reported; No cough, No short of breath Cardiovascular: no symptoms reported Gastrointestinal: abdominal pain, nausea, vomiting Genitourinary: no symptoms reported; No dysuria Musculoskeletal: no symptoms reported Skin: no symptoms reported; No lesions, No rash All Other Systems Reviewed Negative Unless Noted: Yes Past [id number]-Ppqlrz-[id number] Hx Patient Social History Type Used: Cigarettes Recent Foreign Travel: No Contact w/Someone Who Travel: No Recent Hopitalizations: Yes (MULTIPLE) Immunizations Up To Date Tetanus Booster (TDap): Unknown Date of Pneumonia Vaccine: Aug 21, 2011 Date of Influenza Vaccine: Aug 21, 2015 Seasonal Allergies Seasonal Allergies: No Past Medical History Reproductive Disorders: No Sexually Transmitted Disease: No Loss of Vision: Denies Hearing Impairment: Denies Physical Exam Vital Signs Vital Signs - First Documented 09/25/20 09:32 Temp 35.8 Pulse 106 Resp 18 B/P (MAP) 174/105 (128) Pulse Ox 100 O2 Delivery Room Air Capillary Refill : Height, Weight, BMI Height: 5'8.00" Weight: 163lbs. 11.7oz. 74.550343iv; 28.00 BMI Method:Stated General Appearance: WD/WN, Moderate Distress, Thin Eyes: Bilateral Eye Normal Inspection, Bilateral Eye PERRL, Bilateral Eye EOMI HEENT: Other (Extremely dry mucous membranes) Respiratory: Normal Breath Sounds, No Accessory Muscle Use, No Respiratory Distress Cardiovascular: Regular Rate, Rhythm Gastrointestinal: Soft, Tenderness (Mild diffuse tenderness, palpable gastric pacemaker in the right upper quadrant) Neurologic/Psychiatric: Alert, Oriented x3, No Motor/Sensory Deficits, Normal Mood/Affect, surgery manager II-XII Norm as Tested Skin: Normal Color, Warm/Dry Focused Exam Lactate Level 09/25/20 16:05: Lactic Acid Level 1.07 Progress/Results/Core Measures Suspected Sepsis SIRS Temperature: Pulse: Respiratory Rate: Laboratory Tests 09/25/20 20:05: White Blood Count 16.2H 09/26/20 03:00: White Blood Count 17.2H 09/27/20 05:29: White Blood Count 12.6H Blood Pressure / Mean: 09/25/20 16:05: Lactic Acid Level 1.07 Laboratory Tests 09/25/20 20:05: Creatinine 2.02H, Platelet Count 244, Total Bilirubin 0.6 09/26/20 03:00: Creatinine 1.95H, Platelet Count 223, Total Bilirubin 0.7 09/27/20 05:29: Creatinine 1.77H, Platelet Count 238, Total Bilirubin 0.8 Results/Orders Lab Results Laboratory Tests Test 09/26/20 09:17 09/26/20 11:51 09/26/20 15:23 09/26/20 17:02 Range/Units Glucometer 83 173 H 321 H 334 H 70-110 MG/DL Test 09/26/20 21:04 09/26/20 21:36 09/26/20 22:18 09/26/20 22:47 Range/Units Glucometer 87 72 70 96 70-110 MG/DL Test 09/27/20 01:44 09/27/20 03:47 09/27/20 05:29 09/27/20 05:41 Range/Units Glucometer 207 H 283 H 314 H 70-110 MG/DL White Blood Count 12.6 H 4.3-11.0 10^3/uL Red Blood Count 4.07 L 4.30-5.52 10^6/uL Hemoglobin 12.4 L 13.3-17.7 g/dL Hematocrit 37 L 40-54 % Mean Corpuscular Volume 90 80-99 fL Mean Corpuscular Hemoglobin 31 25-34 pg Mean Corpuscular Hemoglobin Concent 34 32-36 g/dL Red Cell Distribution Width 12.9 10.0-14.5 % Platelet Count 238 130-400 10^3/uL Mean Platelet Volume 10.9 9.0-12.2 fL Immature Granulocyte % (Auto) 1 % Neutrophils (%) (Auto) 87 H 42-75 % Lymphocytes (%) (Auto) 8 L 12-44 % Monocytes (%) (Auto) 4 0-12 % Eosinophils (%) (Auto) 0 0-10 % Basophils (%) (Auto) 0 0-10 % Neutrophils # (Auto) 11.0 H 1.8-7.8 10^3/uL Lymphocytes # (Auto) 1.0 1.0-4.0 10^3/uL Monocytes # (Auto) 0.5 0.0-1.0 10^3/uL Eosinophils # (Auto) 0.0 0.0-0.3 10^3/uL Basophils # (Auto) 0.0 0.0-0.1 10^3/uL Immature Granulocyte # (Auto) 0.1 0.0-0.1 10^3/uL Sodium Level 140 135-145 MMOL/L Potassium Level 3.9 3.6-5.0 MMOL/L Chloride Level 102 98-107 MMOL/L Carbon Dioxide Level 22 21-32 MMOL/L Anion Gap 16 H 5-14 MMOL/L Blood Urea Nitrogen 28 H 7-18 MG/DL Creatinine 1.77 H 0.60-1.30 MG/DL Estimat Glomerular Filtration Rate 42 BUN/Creatinine Ratio 16 Glucose Level 316 H 70-105 MG/DL Calcium Level 9.2 8.5-10.1 MG/DL Corrected Calcium 9.3 8.5-10.1 MG/DL Total Bilirubin 0.8 0.1-1.0 MG/DL Aspartate Amino Transf (AST/SGOT) 39 H 5-34 U/L Alanine Aminotransferase (ALT/SGPT) 20 0-55 U/L Alkaline Phosphatase 72 40-136 U/L Total Protein 6.8 6.4-8.2 GM/DL Albumin 3.9 3.2-4.5 GM/DL Test 09/27/20 06:32 09/27/20 07:59 09/27/20 11:34 09/27/20 15:18 Range/Units Glucometer 233 H 230 H 213 H 290 H 70-110 MG/DL Test 09/27/20 20:05 09/28/20 00:37 09/28/20 05:34 Range/Units Glucometer 242 H 193 H 203 H 70-110 MG/DL My Orders Medications Given in ED Vital Signs/I&O 09/27/20 09/27/20 09/28/20 09/28/20 19:36 20:00 00:47 03:50 Temp 37.4 37.2 37.4 Pulse 77 78 91 Resp 18 19 20 B/P (MAP) 144/81 (102) 152/78 (102) 169/81 (110) Pulse Ox 98 97 95 O2 Delivery Room Air Room Air Room Air Room Air Capillary Refill : Progress Note : Time: 10:16 Progress Note Patient is a 45-year-old male who presents to the emergency room with nausea and vomiting. Insulin-dependent diabetic. Patient looks clinically very dehydrated. We will start his treatment course with 2 L of IV fluids, normal saline with 25 mg of IV Phenergan and 1 bag of the saline. Patient is also currently asking for some Valium. As the patient is chronically volume dependent we will give him 5 mg of Valium p.o. after his nausea is under control. 1146 Patient's labs reviewed he has a mild leukocytosis on CBC significant hyperglycemia on CHEM 12. He has an anion gap of 24 with a serum bicarb of 19. Also of note his creatinine is 3.0 this is significantly elevated from the last labs I have access to in March 2020. Patient will be started on an insulin drip and admitted to the ICU under the care of Dr. Sotelo. Patient is quite upset as he has an elderly father at home who requires a great amount of care. Discussed with him the options of staying versus leaving. He verbalizes understanding and is currently thinking about whether or not he wants to stay or leave the hospital AGAINST MEDICAL ADVICE. Critical Care Note Critical Care Start Time: 09:45 Stop Time: 11:22 Total Time (minutes) Critical care time 1 hour in the evaluation and management of this patient with hyperglycemia and acute renal failure. Evaluation of the patient as well as medical records, discussion with admitting physician to the ICU on an insulin drip Departure Communication (Admissions) Time/Spoke to Admitting Phy: 11:[address] Sotelo Impression Primary Impression: Type 1 diabetes mellitus Qualified Codes: E10.65 - Type 1 diabetes mellitus with hyperglycemia Additional Impressions: Acute renal failure Qualified Codes: N17.9 - Acute kidney failure, unspecified Nausea and vomiting due to hyperglycemia Disposition: ADMITTED INPATIENT Condition: Stable Admissions Decision to Admit Reason: Admit from ER (General) Decision to Admit/Date: Sep 25, 2020 Time/Decision to Admit Time: 12:00 Departure-Patient Inst. Referrals: [facility] (PCP) Primary Care Physician BISMARK PATIÑO (Family) Primary Care Physician LILLY SIMS MD Sep 25, 2020 09:46
[2020-09-25] MEDS ORDERED: PROMETHAZINE INJ 25 MG/ML (PHENERGAN) AMP IVP ONE (10:15)
[2020-09-25] MEDS: NS IV 1000 ML 1,000 ML IV SCH ×4 (10:18→21:05)
--- NOTE | 2020-09-25 10:40 | Diagnostic Imaging Report ---
HISTORY: Nausea, hyperglycemia, suspected DKA. COMPARISON: November 22, 2012. TECHNIQUE: Frontal view of the chest. FINDINGS: Lung volumes are large. No focal consolidation is seen. The right Port-A-Cath tip projects over the SVC. The cardiac silhouette is normal in size. No pleural effusion or pneumothorax is seen. IMPRESSION: 1. Large lung volumes with no acute pulmonary abnormality seen. Dictated by: Dictated on workstation # [id number]
[2020-09-25 10:55] LABS: ABG BASE EXCESS 0.7 MMOL/L (-2.5-2.5); ABG OXYGEN SATURATION 75 % (94-100); ABG PCO2 28 MMHG (35-45); ABG TCO2 24.4 MMOL/L (21.0-31.0); INSPIRED O2 RA
[2020-09-25 10:56] LABS: ABG PH 7.53 (7.37-7.43); PATIENT TEMP 35.8; VENTILATOR NO
[2020-09-25 10:58] LABS: BASOPHILS % (AUTO) 0 % (0-10); EOSINOPHILS % (AUTO) 0 % (0-10); HEMATOCRIT 40 % (40-54); HEMOGLOBIN 13.8 g/dL (13.3-17.7); LYMPHOCYTES % (AUTO) 7 % (12-44); MEAN CORPUSCULAR HEMOGLOBIN 30 pg (25-34); MEAN CORPUSCULAR HGB CONC 35 g/dL (32-36); MEAN CORPUSCULAR VOLUME 87 fL (80-99); MEAN PLATELET VOLUME 11.3 fL (9.0-12.2); MONOCYTES # (AUTO) 0.6 10^3/uL (0.0-1.0); MONOCYTES % (AUTO) 5 % (0-12); NEUTROPHILS % (AUTO) 87 % (42-75); PLATELET COUNT 299 10^3/uL (130-400); WHITE BLOOD COUNT 13.8 10^3/uL (4.3-11.0)
[2020-09-25 10:58] LABS: CLARITY,URINE CLEAR; COLOR,URINE YELLOW; GLUCOSE, URINE (UA) 3+ (NEGATIVE); KETONES,URINE 1+ (NEGATIVE); LEUKOCYTE ESTERASE ,URINE NEGATIVE (NEGATIVE); NITRITE,URINE NEGATIVE (NEGATIVE); PH,URINE 5.5 (5-9); PROTEIN,URINE 2+ (NEGATIVE)
[2020-09-25 11:05] LABS: ALBUMIN 4.6 GM/DL (3.2-4.5); CHLORIDE 96 MMOL/L (98-107); POTASSIUM 4.4 MMOL/L (3.6-5.0); SODIUM 139 MMOL/L (135-145)
[2020-09-25 11:06] LABS: BACTERIA,URINE NEGATIVE /HPF; HYALINE CASTS, URINE 0-2 /LPF; SQUAMOUS EPITHELIAL CELL,UR RARE /HPF
[2020-09-25 11:07] LABS: CALCIUM 10.3 MG/DL (8.5-10.1)
[2020-09-25 11:09] LABS: CARBON DIOXIDE 19 MMOL/L (21-32)
[2020-09-25 11:10] LABS: BILIRUBIN,TOTAL 1.2 MG/DL (0.1-1.0)
[2020-09-25 11:10] LABS: ABG PO2 39 MMHG (79-93)
[2020-09-25 11:11] LABS: ALKALINE PHOSPHATASE 86 U/L (40-136); GFR ESTIMATED 23
[2020-09-25 11:14] LABS: ALANINE AMINOTRANSFERASE 15 U/L (0-55)
[2020-09-25 11:15] LABS: BUN/CREATININE RATIO 11; LIPASE 10 U/L (8-78)
[2020-09-25 11:17] LABS: BASOPHILS % (MANUAL) 1 %; GLUCOSE 535 MG/DL (70-105); LYMPHOCYTES % (MANUAL) 6 %; MONOCYTES % (MANUAL) 2 %; NEUTROPHILS % (MANUAL) 91 %; RBC MORPH NORMAL
[2020-09-25] MEDS ORDERED: DIAZEPAM INJ 10 MG/2 ML (VALIUM) SYR IVP ONE (12:15)
[2020-09-25 12:26] LABS: BILIRUBIN,URINE 1+ (NEGATIVE)
--- NOTE | 2020-09-25 12:31 | NUR ---
Dr. Sotelo in room visiting with pt at this time.
--- NOTE | 2020-09-25 13:16 | History & Physical-Hospitalist ---
DARIUSMONTSE MED STUDENT 09/25/20 1316: History of Present Illness HPI/Chief Complaint This patient presented today with a chief complaint of nausea and vomiting. He states that he started vomiting profusely last night multiple times and into this morning, he also states that he would alternate between feeling hot and cold. He says that he felt a little better this morning but came to the ED because he still was vomiting. He denied any blood in his vomit. He states that he is a type 1 diabetic with an insulin pump. he stated his blood sugar was 148 when he started vomiting. On arrival to ER his sugars were in the 400s.He has had episodes like this a couple of times. He said he had a milder case like this about 4 months ago, otherwise its been about 8 years since he has had problems like this. He denies any chest pain or trouble breathing. He denies any diarrhea, dizziness, vision loss, joint pain, or swelling. Source: patient Exam Limitations: no limitations Date Seen 09/25/20 Time Seen by a Provider: 12:55 Attending Physician Mary Sotelo DO [facility], [facility] Referring Physician Date of Admission Sep 25, 2020 at 11:46 Home Medications & Allergies Home Medications Reviewed patient Home Medication Reconciliation performed by pharmacy medication reconciliations tar processing technician and/or nursing. Patients Allergies have been reviewed. Allergies Allergies Coded Allergies Sulfa (Sulfonamide Antibiotics) (Verified Allergy, Intermediate, RASH/HIVES, 07/02/12) ciprofloxacin (Verified Allergy, Intermediate, SWELLING, 03/08/12) Past Bjmints-Zkltxd-Mghjfk Hx Past Med/Social Hx: Reviewed Nursing Past Med/Soc Hx Patient Social History Alcohol Use: Denies Use Recreational Drug Use: No Smoking Status: Current Everyday Smoker Type Used: Cigarettes 2nd Hand Smoke Exposure: Yes Recent Foreign Travel: No Contact w/other who traveled: No Recent Hopitalizations: Yes (MULTIPLE) Recent Infectious Disease Expo: No Immunizations Up To Date Tetanus Booster (TDap): Unknown Date of Pneumonia Vaccine: Aug 21, 2011 Date of Influenza Vaccine: Aug 21, 2015 Seasonal Allergies Seasonal Allergies: No Past Medical History Cardiac: Hypertension Reproductive: No Sexually Transmitted Disease: No Endocrine: Diabetes, Insulin dep Are Your Blood Sugars Over 250: Yes Loss of Vision: Denies Hearing Impairment: Denies Psychosocial: Anxiety, Depression History of Blood Disorders: No Review of Systems Constitutional: see HPI EENTM: no symptoms reported Respiratory: no symptoms reported Cardiovascular: no symptoms reported Gastrointestinal: see HPI Genitourinary: no symptoms reported Musculoskeletal: no symptoms reported Skin: no symptoms reported Psychiatric/Neurological: No Symptoms Reported Physical Exam Physical Exam Vital Signs Vital Signs - First Documented 09/25/20 09:32 Temp 35.8 Pulse 106 Resp 18 B/P (MAP) 174/105 (128) Pulse Ox 100 O2 Delivery Room Air Capillary Refill : Less Than 3 Seconds Height, Weight, BMI Height: 5'8.00" Weight: 163lbs. 11.7oz. 74.998147ca; 22.00 BMI Method:Stated General Appearance: No Apparent Distress, WD/WN Neck: Full Range of Motion, Non Tender Respiratory: Chest Non Tender, Lungs Clear, Normal Breath Sounds, No Accessory Muscle Use, No Respiratory Distress Cardiovascular: Regular Rate, Rhythm, No Edema, No Gallop, No JVD, No Murmur, Normal Peripheral Pulses Gastrointestinal: Normal Bowel Sounds, No Organomegaly, No Pulsatile Mass, Non Tender, Soft Neurologic/Psychiatric: Alert, Oriented x3 Skin: Normal Color, Warm/Dry Results Results/Procedures Labs Laboratory Tests 09/25/20 10:10 Patient resulted labs reviewed. Assessment/Plan Admission Diagnosis DKA Admission Status: Observation Reason for Inpatient Admission: Acute DKA with LUZ ELENA Assessment and Plan Continue to give insulin and IV fluids Ensure patients glucose returns to normal Administer antiemetics Recheck glucose and pH Morning labs CBC, CMP Diagnosis/Problems Diagnosis/Problems (1) Alkalosis (2) Hyperglycemia (3) Nausea & vomiting (4) Acute kidney injury (5) Type 1 diabetes (6) Gastroparesis (7) Pacemaker (8) Leukocytosis (9) Smoker Supervisory-Addendum Brief Verification & Attestation Participated in pt care: history, physical Personally performed: exam, history Care discussed with: other Procedures: n/a MARY SOTELO DO 09/26/20 0703: History of Present Illness HPI/Chief Complaint CC: DKA HPI: This is a 45yoWM Type 1 DM on insulin pump who presents to the ER with N/V and elevated sugar. Insulin drip initiated and patient was placed in ICU. Source: patient Past Agobxcu-Tcmods-Iphead Hx Past Med/Social Hx: Reviewed Nursing Past Med/Soc Hx, Reviewed and Corrections made Review of Systems Constitutional: see HPI Gastrointestinal: nausea, vomiting Physical Exam Physical Exam General Appearance: No Apparent Distress, Chronically ill, Thin Respiratory: Lungs Clear Cardiovascular: Regular Rate, Rhythm Assessment/Plan Admission Diagnosis Insulin drip DKA protocl IVF Admission Status: Inpatient Order (span 2 midnights) Reason for Inpatient Admission: DKA Supervisory-Addendum Brief Verification & Attestation Participated in pt care: history, MDM, physical Personally performed: exam, history, MDM, supervision of care Care discussed with: Medical Student Procedures: n/a Results interpretation: Verified all documentation Verification and Attestation of Medical Student E/M Service A medical student performed and documented this service in my presence. I reviewed and verified all information documented by the medical student and made modifications to such information, when appropriate. I personally performed the physical exam and medical decision making. Mary Sotelo, Sep 26, 2020,07:03 MONTSE MCCOY MED STUDENT Sep 25, 2020 13:16 MARY SOTELO DO Sep 26, 2020 07:03
[2020-09-25] MEDS ORDERED: CATHETER FLUSH 10 ML SYR IV PRN (13:30)
[2020-09-25] MEDS ORDERED: inSUlin (REGULAR) HUMAN 1 UNIT/0.01 ML (CHARGE PER UNIT) IV NR (13:30)
[2020-09-25] MEDS ORDERED: CALCIUM CARBONATE 500 MG (TUMS) TAB.CHEW PO PRN (15:15)
[2020-09-25] MEDS ORDERED: LOPERAMIDE 2 MG (IMODIUM) TABLET PO PRN (15:15)
[2020-09-25] MEDS ORDERED: ALPRAZolam 0.5 MG (XANAX) TAB PO PRN (15:15)
[2020-09-25] MEDS ORDERED: diphenhydrAMINE 25 MG TAB (BENADRYL) PO PRN (15:15)
[2020-09-25] MEDS ORDERED: morphine INJ 10 MG/ML 1ML (SYR OR VIAL) IVP PRN (15:15)
[2020-09-25] MEDS ORDERED: ACETAMINOPHEN 500 MG TAB (TYLENOL) PO PRN (15:15)
[2020-09-25] MEDS ORDERED: MELATONIN 3 MG TABLET PO PRN (15:15)
[2020-09-25] MEDS ORDERED: ALPRAZolam 0.25 MG (XANAX) TAB PO PRN (15:15)
[2020-09-25] MEDS ORDERED: HYDROcodone/APAP 5 MG/325 MG (LORTAB) TAB PO PRN (15:15)
[2020-09-25] MEDS ORDERED: ENOXAPARIN 40 MG/0.4 ML (LOVENOX) SYR SC SCH (15:15)
[2020-09-25] MEDS ORDERED: DOCUSATE SODIUM 100 MG (COLACE) CAP PO PRN (15:15)
[2020-09-25] MEDS: ONDANSETRON 4 MG/2 ML (SDV) Z0FRAN IVP PRN (15:29)
[2020-09-25] MEDS ORDERED: morphine INJ 4 MG/ML 1 ML (VIAL/SYRINGE) IV PRN (15:30)
[2020-09-25] MEDS ORDERED: ENOXAPARIN 30 MG/0.3 ML (LOVENOX) SYR SC SCH (15:30)
[2020-09-25] MEDS ORDERED: FLU QUADRIvalent (3YOA+) 60 mcg/0.5 ml 2020-21 (AFLURIA) IM ONE (15:30)
--- NOTE | 2020-09-25 15:53 | Pulmonary Consultation ---
History of Present Illness History of Present Illness Date Seen by Provider: Sep 25, 2020 Time Seen by Provider: 15:48 Date of Admission Allergies and Home Medications Allergies Coded Allergies: Sulfa (Sulfonamide Antibiotics) (Verified Allergy, Intermediate, RASH/HIVES, 07/02/12) ciprofloxacin (Verified Allergy, Intermediate, SWELLING, 03/08/12) Home Medications Desvenlafaxine Succinate 50 Mg Tab.sr.24h, 50 MG PO DAILY, (Reported) Diazepam 10 Mg Tablet, 10 MG PO TID PRN, (Reported) Enalapril Maleate 10 Mg Tablet, 10 MG PO BID, (Reported) Promethazine HCl 25 Mg Tablet, 25 MG PO Q6H PRN for NAUSEA/VOMITING Prescribed by: GUY SINGLETON on 04/17/202015 Past Fszxmcp-Kwdbfp-Vuzsoo Hx Past Med/Social Hx: Reviewed Nursing Past Med/Soc Hx Patient Social History Alcohol Use: Denies Use Recreational Drug Use: No Smoking Status: Current Everyday Smoker Type Used: Cigarettes 2nd Hand Smoke Exposure: Yes Recent Foreign Travel: No Contact w/Someone Who Travel: No Recent Infectious Disease Expo: No Recent Hopitalizations: Yes (MULTIPLE) Immunizations Up To Date Tetanus Booster (TDap): Unknown Date of Pneumonia Vaccine: Aug 21, 2011 Date of Influenza Vaccine: Aug 21, 2015 Seasonal Allergies Seasonal Allergies: No Past Medical History Surgeries: Yes (GASTRIC PACEMAKER, [place]) Respiratory: No Cardiac: Yes (HTN) Hypertension Neurological: No Reproductive Disorders: No Sexually Transmitted Disease: No Gastrointestinal: Yes (GASTROPARESIS) Musculoskeletal: No Endocrine: Yes (Type 1 diabetic) Diabetes, Insulin dep Are Your Blood Sugars Over 250: Yes Loss of Vision: Denies Hearing Impairment: Denies Psychosocial: Yes Anxiety, Depression Integumentary: No Blood Disorders: No Review of Systems Time Seen by Provider: 16:03 Sepsis Event Evaluation Height, Weight, BMI Height: 5'8.00" Weight: 163lbs. 11.7oz. 74.442856sx; 22.86 BMI Method:Stated Exam Exam Vital Signs Date Time Temp Pulse Resp B/P (MAP) Pulse Ox O2 Delivery O2 Flow Rate FiO2 09/25/20 15:00 78 25 107/97 100 Room Air 09/25/20 14:59 97 Room Air 09/25/20 14:00 88 23 185/84 99 Room Air 09/25/20 13:21 80 09/25/20 13:20 36.7 79 21 139/84 99 Room Air 09/25/20 13:10 36.3 83 17 111/69 (128) 98 Room Air 09/25/20 09:32 35.8 106 18 174/105 (128) 100 Room Air Height & Weight Height: 5'8.00" Weight: 163lbs. 11.7oz. 74.217366xk; 22.86 BMI Method:Stated General Appearance: No Apparent Distress, WD/WN HEENT: Other (Extremely dry mucous membranes) Neck: Full Range of Motion, Non Tender Respiratory: Chest Non Tender, Lungs Clear, Normal Breath Sounds, No Accessory Muscle Use, No Respiratory Distress Cardiovascular: Regular Rate, Rhythm, No Edema, No Gallop, No JVD, No Murmur, Normal Peripheral Pulses Capillary Refill: Less Than 3 Seconds Neurologic/Psychiatric: Alert, Oriented x3 Skin: Normal Color, Warm/Dry Results Lab Laboratory Tests 09/25/20 10:10 Assessment/Plan Assessment/Plan Acute DKA -DKA protocol -Repeat Labs now -Give 1 liter bolus LR and will probably need to repeat Metabolic acidosis with acute dehydration - Check LA -Check UDS Acute renal failure -Give a liter bolus now. If UO does not improve will bolus another liter. Nausea/vomiting -Zofran, phenergan -Protonix Hx of Pacemaker PETRA THOMAS DO Sep 25, 2020 15:53
[2020-09-25] MEDS ORDERED: LACTATED RINGERS 1,000 ML IV ONE ×2 (16:00→16:03)
[2020-09-25] MEDS ORDERED: PANTOPRAZOLE 40 MG (PROTONIX) VIAL ONE (16:05)
[2020-09-25 16:36] LABS: BASOPHILS % (AUTO) 0 % (0-10); EOSINOPHILS % (AUTO) 0 % (0-10); HEMATOCRIT 37 % (40-54); HEMOGLOBIN 12.7 g/dL (13.3-17.7); LYMPHOCYTES # (AUTO) 1.4 10^3/uL (1.0-4.0); LYMPHOCYTES % (AUTO) 8 % (12-44); MEAN CORPUSCULAR HEMOGLOBIN 31 pg (25-34); MEAN CORPUSCULAR HGB CONC 35 g/dL (32-36); MEAN CORPUSCULAR VOLUME 88 fL (80-99); MEAN PLATELET VOLUME 10.7 fL (9.0-12.2); MONOCYTES # (AUTO) 0.8 10^3/uL (0.0-1.0); MONOCYTES % (AUTO) 5 % (0-12); NEUTROPHILS # (AUTO) 15.4 10^3/uL (1.8-7.8); NEUTROPHILS % (AUTO) 87 % (42-75); PLATELET COUNT 274 10^3/uL (130-400); WHITE BLOOD COUNT 17.8 10^3/uL (4.3-11.0)
[2020-09-25 16:45] LABS: ALBUMIN 4.2 GM/DL (3.2-4.5); POTASSIUM 3.7 MMOL/L (3.6-5.0)
[2020-09-25 16:46] LABS: CALCIUM 9.4 MG/DL (8.5-10.1)
[2020-09-25 16:48] LABS: TOTAL PROTEIN 7.2 GM/DL (6.4-8.2)
[2020-09-25 16:49] LABS: BILIRUBIN,TOTAL 0.8 MG/DL (0.1-1.0)
[2020-09-25 16:51] LABS: CREATININE SERUM 2.27 MG/DL (0.60-1.30); PHOSPHORUS 1.1 MG/DL (2.3-4.7)
[2020-09-25 16:54] LABS: MAGNESIUM 1.9 MG/DL (1.6-2.4)
[2020-09-25] MEDS: PANTOPRAZOLE 40 MG (PROTONIX) VIAL IV SCH (17:00)
[2020-09-25 18:28] LABS: AMPHETAMINE SCREEN, URINE NEGATIVE (NEGATIVE); BARBITURATE SCREEN URINE NEGATIVE (NEGATIVE); BENZODIAZEPINES SCREEN URINE POSITIVE (NEGATIVE); CANNABINOID SCREEN, URINE POSITIVE (NEGATIVE); COCAINE SCREEN URINE NEGATIVE (NEGATIVE); METHADONE STAT NEGATIVE (NEGATIVE); METHAMPHETAMINE SCREEN URINE S NEGATIVE (NEGATIVE); OPIATE SCREEN URINE NEGATIVE (NEGATIVE); OXYCODONE STAT NEGATIVE (NEGATIVE); PROPOXYPHENE STAT NEGATIVE (NEGATIVE); TRICYCLIC ANTIDEPRESSANTS SCRE NEGATIVE (NEGATIVE)
[2020-09-25] MEDS: SENNA W/DOCUSATE (SENOKOT S) TABLET PO SCH (20:01)
[2020-09-25] MEDS: ENALAPRIL 10 MG (VASOTEC) TAB PO SCH (20:01)
[2020-09-25 20:15] LABS: BASOPHILS % (AUTO) 0 % (0-10); EOSINOPHILS % (AUTO) 0 % (0-10); HEMATOCRIT 33 % (40-54); HEMOGLOBIN 11.4 g/dL (13.3-17.7); LYMPHOCYTES # (AUTO) 1.3 10^3/uL (1.0-4.0); LYMPHOCYTES % (AUTO) 8 % (12-44); MEAN CORPUSCULAR HEMOGLOBIN 31 pg (25-34); MEAN CORPUSCULAR HGB CONC 34 g/dL (32-36); MEAN CORPUSCULAR VOLUME 89 fL (80-99); MEAN PLATELET VOLUME 10.5 fL (9.0-12.2); MONOCYTES # (AUTO) 0.9 10^3/uL (0.0-1.0); MONOCYTES % (AUTO) 5 % (0-12); NEUTROPHILS # (AUTO) 13.9 10^3/uL (1.8-7.8); NEUTROPHILS % (AUTO) 86 % (42-75); PLATELET COUNT 244 10^3/uL (130-400); WHITE BLOOD COUNT 16.2 10^3/uL (4.3-11.0)
[2020-09-25 20:38] LABS: ALBUMIN 3.5 GM/DL (3.2-4.5); BILIRUBIN,TOTAL 0.6 MG/DL (0.1-1.0); CALCIUM 8.7 MG/DL (8.5-10.1); CREATININE SERUM 2.02 MG/DL (0.60-1.30)
[2020-09-25] MEDS ORDERED: D5W W/KCL 20 MEQ/L 1,000 ML IV ONE (22:27)
[2020-09-25] MEDS ORDERED: D5W W/KCL 20 MEQ/L 1,000 ML IV SCH (22:30)
[2020-09-25] MEDS: PROMETHAZINE INJ 25 MG/ML (PHENERGAN) AMP IM PRN (22:36)
--- NOTE | 2020-09-25 23:43 | NUR ---
NOTIFIED E-ICU @ APPROX 2200 OF PT'S LABS (CO2 AND ANION GAP) AND BLOOD SUGAR OF 105. RECEIVED NEW ORDERS AT THIS TIME.
[2020-09-26] MEDS ORDERED: inSUlin ASPART (NovoLOG) 1 UNIT/0.01 ML (CHARGE PER UNIT) SC SCH
[2020-09-26] MEDS ORDERED: inSUlin ASPART (NovoLOG) 1 UNIT/0.01 ML (CHARGE PER UNIT) ONE (00:02)
[2020-09-26] MEDS: inSUlin ASPART (NovoLOG) 1 UNIT/0.01 ML (CHARGE PER UNIT) SC SCH ×5 (00:37→17:18)
[2020-09-26] MEDS: NS IV 1000 ML 1,000 ML IV SCH (02:10)
[2020-09-26 03:12] LABS: BASOPHILS % (AUTO) 0 % (0-10); EOSINOPHILS % (AUTO) 0 % (0-10); HEMATOCRIT 33 % (40-54); HEMOGLOBIN 11.3 g/dL (13.3-17.7); LYMPHOCYTES # (AUTO) 1.8 10^3/uL (1.0-4.0); LYMPHOCYTES % (AUTO) 10 % (12-44); MEAN CORPUSCULAR HEMOGLOBIN 31 pg (25-34); MEAN CORPUSCULAR HGB CONC 34 g/dL (32-36); MEAN CORPUSCULAR VOLUME 90 fL (80-99); MEAN PLATELET VOLUME 10.8 fL (9.0-12.2); MONOCYTES # (AUTO) 1.2 10^3/uL (0.0-1.0); MONOCYTES % (AUTO) 7 % (0-12); NEUTROPHILS # (AUTO) 14.2 10^3/uL (1.8-7.8); NEUTROPHILS % (AUTO) 82 % (42-75); PLATELET COUNT 223 10^3/uL (130-400); WHITE BLOOD COUNT 17.2 10^3/uL (4.3-11.0)
[2020-09-26 03:25] LABS: ALBUMIN 3.4 GM/DL (3.2-4.5); POTASSIUM 4.3 MMOL/L (3.6-5.0)
[2020-09-26 03:27] LABS: CALCIUM 8.5 MG/DL (8.5-10.1)
[2020-09-26 03:28] LABS: TOTAL PROTEIN 5.7 GM/DL (6.4-8.2)
[2020-09-26 03:30] LABS: BILIRUBIN,TOTAL 0.7 MG/DL (0.1-1.0)
[2020-09-26] MEDS: PROMETHAZINE INJ 25 MG/ML (PHENERGAN) AMP IM PRN ×4 (03:30→22:25)
[2020-09-26 03:31] LABS: CREATININE SERUM 1.95 MG/DL (0.60-1.30); PHOSPHORUS 3.6 MG/DL (2.3-4.7)
[2020-09-26 03:35] LABS: MAGNESIUM 1.9 MG/DL (1.6-2.4)
--- NOTE | 2020-09-26 03:55 | Pulmonary Progress Note ---
MUKUNDELIZABET MED STUDENT 09/26/20 0355: Subjective Date Seen by a Provider: Sep 26, 2020 Time Seen by a Provider: 03:45 Subjective/Events-last exam Patient feeling nauseous again, but otherwise no pain or other complaints. Denies CP, palpitations, SOB, abdominal pain, change in urination or muscle aches/pain. He does note that he had blurry vision yesterday which seems to have resolved. Sepsis Event Evaluation Height, Weight, BMI Height: 5'8.00" Weight: 163lbs. 11.7oz. 74.281474jn; 22.86 BMI Method:Stated Focused Exam Lactate Level 09/25/20 16:05: Lactic Acid Level 1.07 Exam Exam Vital Signs Date Time Temp Pulse Resp B/P (MAP) Pulse Ox O2 Delivery O2 Flow Rate FiO2 09/26/20 00:00 97 Room Air 09/26/20 00:00 74 22 115/60 96 Room Air 09/25/20 23:00 79 15 162/86 99 Room Air 09/25/20 22:00 67 7 145/80 99 Room Air 09/25/20 21:00 77 10 108/50 98 Room Air 09/25/20 20:00 97 Room Air 09/25/20 20:00 90 14 113/62 99 Room Air 09/25/20 19:00 94 09/25/20 19:00 94 10 129/54 100 Room Air 09/25/20 18:00 101 23 175/82 99 Room Air 09/25/20 17:00 76 25 Room Air 09/25/20 16:09 37.2 09/25/20 16:00 85 23 155/75 100 Room Air 09/25/20 15:47 97 Room Air 09/25/20 15:00 78 25 107/97 100 Room Air 09/25/20 14:59 97 Room Air 09/25/20 14:00 88 23 185/84 99 Room Air 09/25/20 13:21 80 09/25/20 13:20 36.7 79 21 139/84 99 Room Air 09/25/20 13:10 36.3 83 17 111/69 (128) 98 Room Air 09/25/20 09:32 35.8 106 18 174/105 (128) 100 Room Air I & O 09/26/20 07:00 Intake Total 2550 ml Output Total 400 ml Balance 2150 ml Height & Weight Height: 5'8.00" Weight: 163lbs. 11.7oz. 74.372638yr; 22.86 BMI Method:Stated General Appearance: No Apparent Distress, WD/WN HEENT: No Scleral Icterus (L), No Scleral Icterus (R); Other (Extremely dry mucous membranes) Neck: Full Range of Motion, Normal Inspection, Non Tender Respiratory: Chest Non Tender, Lungs Clear, Normal Breath Sounds, No Accessory Muscle Use, No Respiratory Distress Cardiovascular: Regular Rate, Rhythm, No Edema, No Murmur, Normal Peripheral Pu lses, Other (occasional PAC/PVC) Capillary Refill: Less Than 3 Seconds Gastrointestinal: non tender, soft, no organomegaly Extremity: Normal Inspection, Non Tender, No Calf Tenderness, No Pedal Edema Neurologic/Psychiatric: Alert, Normal Mood/Affect; No Disoriented Skin: Normal Color, Warm/Dry Results Lab Laboratory Tests 09/25/20 10:10 09/25/20 16:05 09/25/20 20:05 09/26/20 03:00 Assessment/Plan Assessment/Plan Acute DKA -DKA protocol -Repeat Labs now -Give 1 liter bolus LR and will probably need to repeat Metabolic acidosis with acute dehydration - Check LA -Check UDS Acute renal failure -Give a liter bolus now. If UO does not improve will bolus another liter. Nausea/vomiting -Zofran, phenergan -Protonix Hx of Pacemaker PETRA THOMAS DO 09/26/20 0506: Assessment/Plan Assessment/Plan Acute DKA -DKA - Pt now off DKA protocol -Continue Levemir -D/C DKA protocol Metabolic acidosis with acute dehydration -Improved [facility] use Acute renal failure -Give a liter bolus now. If UO does not improve will bolus another liter. Nausea/vomiting -Zofran, phenergan -Protonix Hx of Pacemaker ELIZABET DUVAL MED STUDENT Sep 26, 2020 03:55 PETRA THOMAS DO Sep 26, 2020 05:06
[2020-09-26] MEDS: ONDANSETRON 4 MG/2 ML (SDV) Z0FRAN IVP PRN ×3 (05:48→20:59)
[2020-09-26] MEDS: cefTRIAXone FOR IV USE 1,000 MG in WATER (STERILE) FOR INJECTION 10 ML IV SCH (05:55)
--- NOTE | 2020-09-26 06:20 | NUR ---
Rec report from JORGE Murillo - ICU nurse.
--- NOTE | 2020-09-26 06:30 | NUR ---
To room 415 via wheelchair accompanied by JORGE Hays. Awake and alert. Saline lock in upper left arm/chest and Right groshong patient. Denies needs at this time. Addendum: 09/26/20 at 0644 by KARRI HATFIELD RN ICU transfer
[2020-09-26 06:38] LABS: AMYLASE 87 U/L (25-125)
[2020-09-26 06:47] LABS: LIPASE < 4 U/L (8-78)
[2020-09-26] MEDS: PANTOPRAZOLE 40 MG (PROTONIX) VIAL IV SCH (08:01)
[2020-09-26] MEDS: ENALAPRIL 10 MG (VASOTEC) TAB PO SCH ×2 (08:01→20:59)
--- NOTE | 2020-09-26 08:06 | Diagnostic Imaging Report ---
Clinical indications: Patient with hyperglycemia and shortness of air. ICU care management. Exam: Portable chest x-ray upright view. Comparisons: Chest x-ray dated 09/25/2020. Findings: There is a tubing outside the patient overlying the right chest region again seen. Right IJ central line seen in stable good position. Lungs/pleura: Lungs are hyperinflated, but clear. There is no pneumothorax. There is no pleural effusion. Mediastinum: Unremarkable. Pulmonary vasculature: Unremarkable. Heart: Unremarkable. Bones/extrathoracic soft tissue: Unremarkable. Impression: Stable chest x-ray exam with no interval radiographic evidence of acute cardiopulmonary process. Dictated by: Dictated on workstation # [id number]
[2020-09-26] MEDS: VENlafaxine XR 75 MG (EFFEXOR XR) CAP PO SCH (08:12)
[2020-09-26] MEDS: SENNA W/DOCUSATE (SENOKOT S) TABLET PO SCH ×2 (08:13→20:52)
--- NOTE | 2020-09-26 08:13 | NUR ---
PATIENT REFUSED ALL ORAL MEDICATIONS AND BREAKFAST. PHENERGAN GIVEN. HE STATED HE IS NAUSEOUS AND WILL NOT BE ABLE TO KEEP ANYTHING DOWN
[2020-09-26] MEDS ORDERED: PARO20TA5 PO (08:49)
[2020-09-26] MEDS ORDERED: OXYC-556 PO (08:49)
[2020-09-26] MEDS ORDERED: PROM50TA3 PO (08:49)
[2020-09-26] MEDS ORDERED: INSU100V16 SQ (08:49)
[2020-09-26] MEDS ORDERED: ENAL10TA16 PO (08:49)
--- NOTE | 2020-09-26 08:50 | NUR ---
SPOKE WITH THE PT, WENT THRU THE EXT MED HISTORY AND CALLED [facility] TO COMPLETE THE MED REC NOVOLOG WAS LAST FILLED ON 09-11-2020 #2 VIALS ACCORDING TO THE PT HE USES PERCOCET AND PROMETHAZINE ONLY NEEDED OTC MEDS: NONE
--- NOTE | 2020-09-26 09:32 | NUR ---
ACCUCHECK TAKEN PER PATIENT REQUEST. PATIENT WILL TRY APPLE JUICE AND POPSICLE.
--- NOTE | 2020-09-26 12:07 | NUR ---
PATIENT REPORTS NAUSEA TO THIS RN. HAS NOT HAD COMPLAINTS OF STOMACH PAIN ALL DAY. THIS AM THIS RN OFFERED HIM THE ORDERED MEDICATION EFFEXOR AND EXPLAIN THAT IS WAS FOR STOMACH PAIN. PATIENT REFUSED TO TAKE IT. (HE REFUSED ALL ORAL MEDICATIONS THIS AM). PATIENT WAS OFFERED HIS BLOOD PRESSURE MEDICATION AT THIS TIME (THE ONE THAT HE REFUSED THIS MORNING). HE REFUSED TO TAKE IT. NAUSEA MEDICATION GIVEN PER REQUEST.
--- NOTE | 2020-09-26 12:11 | Progress Note - Hospitalist ---
MONTSE MCCOY MED STUDENT 09/26/20 1211: Subjective HPI/CC On Admission Date Seen by Provider: Sep 26, 2020 Time Seen by Provider: 08:45 CC: DKA HPI: This is a 45yoWM Type 1 DM on insulin pump who presents to the ER with N/V and elevated sugar. Insulin drip initiated and patient was placed in ICU. Subjective/Events-last exam This patient presented yesterday with multiple episodes of vomiting and DKA. He states that this morning he has had some episodes of dry heaving but they are not as bad as last night. His BUN and creatine have improved since yesterday. He states that he hasn't had anything to eat, only a few sips of apple juice. He does not have any problems using the restroom but has not had a bowel movement since 09/24. He has no problems getting out of bed and ambulating. He denies chest pain and trouble breathing. His lungs are clear on auscultation bilaterally in all raphael. Focused Exam Lactate Level 09/25/20 16:05: Lactic Acid Level 1.07 Objective Exam Vital Signs Vital Signs Date Time Temp Pulse Resp B/P (MAP) Pulse Ox O2 Delivery O2 Flow Rate FiO2 09/26/20 08:00 98 Room Air 09/26/20 08:00 69 18 159/77 09/25/20 16:09 37.2 Capillary Refill : Less Than 3 Seconds General Appearance: No Apparent Distress, WD/WN HEENT: PERRL/EOMI Neck: Full Range of Motion, Non Tender Respiratory: Chest Non Tender, Lungs Clear, Normal Breath Sounds, No Accessory Muscle Use, No Respiratory Distress Cardiovascular: Regular Rate, Rhythm, No Edema, No Gallop, No JVD, No Murmur, Normal Peripheral Pulses Gastrointestinal: Normal Bowel Sounds, Non Tender Extremity: Normal Inspection, Normal Range of Motion, No Pedal Edema Neurologic/Psychiatric: Alert, Oriented x3 Skin: Normal Color, Warm/Dry Lymphatic: No Adenopathy Results/Procedures Lab Laboratory Tests 09/25/20 16:05 09/25/20 20:05 09/26/20 03:00 Patient resulted labs reviewed. Assessment/Plan Assessment and Plan Assess & Plan/Chief Complaint Continue to give insulin and IV fluids Ensure patients glucose returns to normal Administer antiemetics Morning labs CBC, CMP Consult surgery for possible EGD Possible discharge tomorrow if patient continues to improve. Diagnosis/Problems Diagnosis/Problems (1) Alkalosis (2) Hyperglycemia (3) Nausea & vomiting (4) Acute kidney injury (5) Type 1 diabetes (6) Gastroparesis (7) Pacemaker (8) Leukocytosis (9) Smoker Clinical Quality Measures DVT/VTE Risk/Contraindication: Risk Factor Score Per Nursin RFS Level Per Nursing on Admit: 1=Low/No VTE PPX Supervisory-Addendum Brief Verification & Attestation Participated in pt care: history, physical Personally performed: exam, history Care discussed with: other Procedures: n/a MARY KINNEY DO 09/26/202106: Subjective Subjective/Events-last exam Pt doing a lot better but nausea and vomiting continues Creatinine 1.95 Home meds will be restarted Review of Systems General: Fatigue, Malaise Gastrointestinal: Nausea, Vomiting Objective Exam General Appearance: No Apparent Distress, WD/WN, Chronically ill Respiratory: Lungs Clear Cardiovascular: Regular Rate, Rhythm Neurologic/Psychiatric: Alert, Oriented x3, No Motor/Sensory Deficits, Normal Mood/Affect Assessment/Plan Assessment and Plan Assess & Plan/Chief Complaint Dr Jennings consult N/V treatment Insulin pump to restart Supervisory-Addendum Brief Verification & Attestation Participated in pt care: history, MDM, physical Personally performed: exam, history, MDM, supervision of care Care discussed with: Medical Student Procedures: n/a Results interpretation: Verified all documentation Verification and Attestation of Medical Student E/M Service A medical student performed and documented this service in my presence. I reviewed and verified all information documented by the medical student and made modifications to such information, when appropriate. I personally performed the physical exam and medical decision making. Mary Kinney, Sep 26, 2020,21:07 MONTSE MCCOY MED STUDENT Sep 26, 2020 12:11 MARY KINNEY DO Sep 26, 2020 21:07
--- NOTE | 2020-09-26 13:22 | Consultation - Surgery ---
GABINO MENDEZ MED STUDENT 09/26/20 1321: History of Present Illness History of Present Illness Patient Consulted On(raron/time) 09/26/20 13:14 History of Present Illness Surgery was consulted for stomach pain. 45 y/o M was admitted to ED 2d ago for DKA and vomiting. Pt states he had N/V for 10 yrs and was diagnosed w/ gastroparesis in 2008 in [place]. Pt states he needs a new battery for GI pacemaker. Pt denies having food today and hasn't eaten for a couple of days. Pt states he's still having nausea. Pt states he was vomiting dark vomit for 2 days, nonbloody. Last BM was 2d ago and pt is passing gas. Pt unsure of last urination. Pt is ambulating. Pt has hx of port in 2008, a scope dilation 3 yrs ago, and throat scar tissue from vomiting. Pt states he smoked marijuana 10 yrs ago and then quit for a couple of years and then started smoking it again recently (w/in the past yr). Pt believes the marijuana is causing him to vomit. Allergies and Home Medications Allergies Coded Allergies: Sulfa (Sulfonamide Antibiotics) (Verified Allergy, Intermediate, RASH/HIVES, 07/02/12) ciprofloxacin (Verified Allergy, Intermediate, SWELLING, 03/08/12) Home Medications Enalapril Maleate 10 Mg Tablet, 10 MG PO HS, (Reported) Insulin Aspart 100 Unit/1 Ml Susp, SQ UD, (Reported) MAX OF 50 UNITS DAILY PER PUMP Oxycodone HCl/Acetaminophen 1 Each Tablet, 1 EA PO Q6H PRN for PAIN-MODERATE (5- 7), (Reported) Paroxetine HCl 20 Mg Tablet, 20 MG PO DAILY, (Reported) Promethazine HCl 50 Mg Tablet, 50 MG PO Q8H PRN for NAUSEA/VOMITING-2ND LINE, (Reported) Past Afiqabe-Reoqll-Xgamxo Hx Patient Social History Alcohol Use: Denies Use Recreational Drug Use: Yes (marijuana\) Drug of Choice: marijuana Smoking Status: Current Everyday Smoker Type Used: Cigarettes (1 ppd since 17 y/o) 2nd Hand Smoke Exposure: Yes Recent Foreign Travel: No Contact w/Someone Who Travel: No Recent Infectious Disease Expo: No Recent Hopitalizations: Yes (MULTIPLE) Immunizations Up To Date Tetanus Booster (TDap): Unknown Date of Pneumonia Vaccine: Aug 21, 2011 Date of Influenza Vaccine: Aug 21, 2015 Seasonal Allergies Seasonal Allergies: No Surgeries History of Surgeries: Yes (GASTRIC PACEMAKER, PORT) Respiratory History of Respiratory Disorde: No Cardiovascular History of Cardiac Disorders: Yes (HTN) Cardiac Disorders: Hypertension Neurological History of Neurological Disord: No Reproductive System Hx Reproductive Disorders: No Sexually Transmitted Disease: No Gastrointestinal History of Gastrointestinal Di: Yes (GASTROPARESIS) Musculoskeletal History of Musculoskeletal Dis: No Endocrine History of Endocrine Disorders: Yes (Type 1 diabetic) Endocrine Disorders: Diabetes, Insulin dep HEENT Loss of Vision: Denies Hearing Impairment: Denies Psychosocial History of Psychiatric Problem: Yes Behavioral Health Disorders: Anxiety, Depression Integumentary History of Skin or Integumenta: No Blood Transfusions History of Blood Disorders: No Family Medical History Significant Family History: Cancer (dad - prostate cancer, mom - of unknown cancer, diabetes.), Diabetes Review of Systems-General Constitutional: No chills, No fever; weakness EENTM: No hearing loss, No ear pain, No blurred vision, No double vision, No eye pain, No vision loss Respiratory: No cough, No hemoptysis, No short of breath Cardiovascular: No chest pain Gastrointestinal: No abdominal pain; nausea, vomiting Musculoskeletal: No muscle pain Skin: no symptoms reported Psychiatric/Neurological: Denies Headache Physical Exam-General Problems Physical Exam Vital Signs Vital Signs - First Documented 09/25/20 09:32 Temp 35.8 Pulse 106 Resp 18 B/P (MAP) 174/105 (128) Pulse Ox 100 O2 Delivery Room Air Capillary Refill : Less Than 3 Seconds General Appearance: WD/WN, no apparent distress HEENT: PERRL/EOMI Respiratory: chest non-tender, lungs clear, normal breath sounds, no respiratory distress, no accessory muscle use Cardiovascular: regular rate, rhythm Gastrointestinal: soft, abnormal bowel sounds (decreased) Extremities: normal capillary refill Neurologic/Psychiatric: alert, oriented x 3 Skin: normal color, warm/dry Data Review Labs Laboratory Tests 09/25/20 13:25: Glucometer 303H 09/25/20 14:42: Glucometer 296H 09/25/20 16:05: White Blood Count 17.8H, Red Blood Count 4.16L, Hemoglobin 12.7L, Hematocrit 37L , Mean Corpuscular Volume 88, Mean Corpuscular Hemoglobin 31, Mean Corpuscular Hemoglobin Concent 35, Red Cell Distribution Width 12.9, Platelet Count 274, Mean Platelet Volume 10.7, Immature Granulocyte % (Auto) 1, Neutrophils (%) (Auto) 87H, Lymphocytes (%) (Auto) 8L, Monocytes (%) (Auto) 5, Eosinophils (%) (Auto) 0, Basophils (%) (Auto) 0, Neutrophils # (Auto) 15.4H, Lymphocytes # (Auto) 1.4, Monocytes # (Auto) 0.8, Eosinophils # (Auto) 0.0, Basophils # (Auto) 0.0, Immature Granulocyte # (Auto) 0.1, Sodium Level 144, Potassium Level 3.7, Chloride Level 108H, Carbon Dioxide Level 24, Anion Gap 12, Blood Urea Nitrogen 31H, Creatinine 2.27H, Estimat Glomerular Filtration Rate 31, BUN/Creatinine Ratio 14, Glucose Level 207H, Lactic Acid Level 1.07, Calcium Level 9.4, Corrected Calcium 9.2, Phosphorus Level 1.1L, Magnesium Level 1.9, Total Bilirubin 0.8, Aspartate Amino Transf (AST/SGOT) 23, Alanine Aminotransferase (A LT/SGPT) 15, Alkaline Phosphatase 75, Total Protein 7.2, Albumin 4.2 09/25/20 16:30: Glucometer 223H 09/25/20 17:31: Glucometer 153H 09/25/20 18:02: Urine Opiates Screen NEGATIVE, Urine Oxycodone Screen NEGATIVE, Urine Methadone Screen NEGATIVE, Urine Propoxyphene Screen NEGATIVE, Urine Barbiturates Screen NEGATIVE, Ur Tricyclic Antidepressants Screen NEGATIVE, Urine Phencyclidine Screen NEGATIVE, Urine Amphetamines Screen NEGATIVE, Urine Methamphetamines Screen NEGATIVE, Urine Benzodiazepines Screen POSITIVEH, Urine Cocaine Screen NEGATIVE, Urine Cannabinoids Screen POSITIVEH 09/25/20 18:26: Glucometer 164H 09/25/20 19:40: Glucometer 169H 09/25/20 20:05: White Blood Count 16.2H, Red Blood Count 3.72L, Hemoglobin 11.4L, Hematocrit 33L , Mean Corpuscular Volume 89, Mean Corpuscular Hemoglobin 31, Mean Corpuscular Hemoglobin Concent 34, Red Cell Distribution Width 13.0, Platelet Count 244, Me an Platelet Volume 10.5, Immature Granulocyte % (Auto) 1, Neutrophils (%) (Auto) 86H, Lymphocytes (%) (Auto) 8L, Monocytes (%) (Auto) 5, Eosinophils (%) (Auto) 0, Basophils (%) (Auto) 0, Neutrophils # (Auto) 13.9H, Lymphocytes # (Auto) 1.3, Monocytes # (Auto) 0.9, Eosinophils # (Auto) 0.0, Basophils # (Auto) 0.0, Immature Granulocyte # (Auto) 0.2H, Sodium Level 144, Potassium Level 4.0, Chloride Level 110H, Carbon Dioxide Level 25, Anion Gap 9, Blood Urea Nitrogen 28H, Creatinine 2.02H, Estimat Glomerular Filtration Rate 36, BUN/Creatinine Ratio 14, Glucose Level 164H, Calcium Level 8.7, Corrected Calcium 9.1, Total Bilirubin 0.6, Aspartate Amino Transf (AST/SGOT) 21, Alanine Aminotransferase (ALT/SGPT) 14, Alkaline Phosphatase 66, Total Protein 6.0L, Albumin 3.5 09/25/20 20:29: Glucometer 163H 09/25/20 21:27: Glucometer 105 09/25/20 23:56: Glucometer 222H 09/26/20 02:02: Glucometer 191H 09/26/20 03:00: White Blood Count 17.2H, Red Blood Count 3.69L, Hemoglobin 11.3L, Hematocrit 33L , Mean Corpuscular Volume 90, Mean Corpuscular Hemoglobin 31, Mean Corpuscular Hemoglobin Concent 34, Red Cell Distribution Width 13.1, Platelet Count 223, Mean Platelet Volume 10.8, Immature Granulocyte % (Auto) 1, Neutrophils (%) (Auto) 82H, Lymphocytes (%) (Auto) 10L, Monocytes (%) (Auto) 7, Eosinophils (%) (Auto) 0, Basophils (%) (Auto) 0, Neutrophils # (Auto) 14.2H, Lymphocytes # (Auto) 1.8, Monocytes # (Auto) 1.2H, Eosinophils # (Auto) 0.0, Basophils # (Auto) 0.0, Immature Granulocyte # (Auto) 0.1, Sodium Level 143, Potassium Level 4.3, Chloride Level 110H, Carbon Dioxide Level 23, Anion Gap 10, Blood Urea Nitrogen 28H, Creatinine 1.95H, Estimat Glomerular Filtration Rate 37, BUN/Creatinine Ratio 14, Glucose Level 172H, Calcium Level 8.5, Corrected Calcium 9.0, Phosphorus Level 3.6, Magnesium Level 1.9, Total Bilirubin 0.7, Aspartate Amino Transf (AST/SGOT) 43H, Alanine Aminotransferase (ALT/SGPT) 14, Alkaline Phosphatase 60, Total Protein 5.7L, Albumin 3.4, Amylase Level 87, Lipase < 4L 09/26/20 05:38: Glucometer 238H 09/26/20 09:17: Glucometer 83 09/26/20 11:51: Glucometer 173H Assessment/Plan Assessment/Plan Assessment/Plan N/V gastroparesis - pacemaker battery - refer for replacement of battery. continue abx. switch pain medication. monitor for BM. decrease marijuana use. DM - continue diabetic diet. continue insulin. monitor and control diabetes. Clinical Quality Measures DVT/VTE Risk/Contraindication: Risk Factor Score Per Nursin RFS Level Per Nursing on Admit: 1=Low/No VTE PPX GIOVANNI JENNINGS DO 09/26/20 1543: History of Present Illness History of Present Illness Time Seen by Provider: 15:16 History of Present Illness When I spoke to pt he states his nausea and vomiting is slightly better. He thinks the generator placed for his Gastroparesis worked a little bit when it was first placed but that was 2008 and the battery only lasts 10 yrs. He admits that smoking marijuana causes him to have nausea and vomiting. He is also not controlling his DM. Allergies and Home Medications Allergies Coded Allergies: Sulfa (Sulfonamide Antibiotics) (Verified Allergy, Intermediate, RASH/HIVES, 07/02/12) ciprofloxacin (Verified Allergy, Intermediate, SWELLING, 03/08/12) Home Medications Enalapril Maleate 10 Mg Tablet, 10 MG PO HS, (Reported) Insulin Aspart 100 Unit/1 Ml Susp, SQ UD, (Reported) MAX OF 50 UNITS DAILY PER PUMP Oxycodone HCl/Acetaminophen 1 Each Tablet, 1 EA PO Q6H PRN for PAIN-MODERATE (5-7), (Reported) Paroxetine HCl 20 Mg Tablet, 20 MG PO DAILY, (Reported) Promethazine HCl 50 Mg Tablet, 50 MG PO Q8H PRN for NAUSEA/VOMITING-2ND LINE, (Reported) Patient Home Medication List Home Medication List Reviewed: Yes Past Vnixkbu-Vyywyo-Nfoipw Hx Patient Social History Alcohol Use: Denies Use Recreational Drug Use: Yes (marijuana\) Smoking Status: Current Everyday Smoker Surgeries History of Surgeries: Yes Respiratory History of Respiratory Disorde: No Cardiovascular History of Cardiac Disorders: Yes Cardiac Disorders: Hypertension Neurological History of Neurological Disord: Yes Neurological Disorders: Neuropathy Genitourinary History of Genitourinary Disor: No Gastrointestinal History of Gastrointestinal Di: Yes (Gastroparesis) Gastrointestinal Disorders: Gastroesophageal Reflux (esophageal stricture) Musculoskeletal History of Musculoskeletal Dis: No Endocrine History of Endocrine Disorders: Yes Endocrine Disorders: Diabetes, Insulin dep HEENT History of HEENT Disorders: No Loss of Vision: Denies Cancer History of Cancer: No Psychosocial History of Psychiatric Problem: Yes Behavioral Health Disorders: Anxiety, Depression Family Medical History Significant Family History: Cancer (dad - prostate cancer, mom - of unknown cancer, diabetes.), Diabetes Review of Systems-General Constitutional: No chills, No fever; weakness EENTM: No hearing loss, No ear pain, No blurred vision, No double vision, No eye pain, No vision loss Respiratory: No cough, No hemoptysis, No short of breath Cardiovascular: No chest pain, No edema Gastrointestinal: abdominal pain, nausea, vomiting Genitourinary: No dysuria, No frequency, No hematuria Musculoskeletal: No muscle pain Psychiatric/Neurological: Anxiety, Depressed, Headache Physical Exam-General Problems Physical Exam General Appearance: WD/WN, no apparent distress Eyes: Bilateral Eye PERRL, Bilateral Eye EOMI HEENT: pharynx normal; No scleral icterus (R), No scleral icterus (L) Neck: non-tender, supple Respiratory: chest non-tender, lungs clear, normal breath sounds, no respiratory distress, no accessory muscle use Cardiovascular: regular rate, rhythm, no murmur Gastrointestinal: soft, no organomegaly, tenderness (mild diffuse); No hernia Back: no CVA tenderness, no vertebral tenderness Extremities: non-tender, normal inspection, no pedal edema, no calf tenderness, normal capillary refill Neurologic/Psychiatric: dental secretary II-XII nml as tested, alert, normal mood/affect, oriented x 3 Skin: normal color, warm/dry Lymphatic: no adenopathy (neck, axilla or groin) Assessment/Plan Assessment/Plan Assessment/Plan Intractable Nausea and Vomiting Gastroparesis DM with DKA Marijuana use Pt does not control his DM; which of course makes his Gastroparesis worse and therefore his N/V worse. In addition he fully admits that smoking marijuana causes him to have nausea and vomiting. Nothing surgical to be done at this time. Supervisory-Addendum Brief Verification & Attestation Participated in pt care: history, MDM, physical Personally performed: exam, history, MDM Care discussed with: Medical Student Procedures: n/a Verification and Attestation of Medical Student E/M Service A medical student performed and documented this service. I then reviewed and verified all information documented by the medical student and made modifications to such information, when appropriate. I personally performed a physical exam, medical decision making and then discussed any differences between the notes and made revisions as necessary to create one note. Giovanni Jennings , 09/26/20 , 16:02 GABINO MENDEZ MED STUDENT Sep 26, 2020 13:21 GIOVANNI JENNINGS DO Sep 26, 2020 15:43
--- NOTE | 2020-09-26 13:37 | NUR ---
FAMILY DROPPED OFF HIS INSULIN PUMP SUPPLIES
--- NOTE | 2020-09-26 13:45 | NUR ---
THE NOVOLOG BROUGHT BY HIS FAMILY IS . HIS SISTER WILL BRING NEW INSULIN THIS EVENING.
--- NOTE | 2020-09-26 14:20 | NUR ---
RD ASSESSMENT PMHx: HTN; DM; PT INTERACTION: Pt was awake and pleasant during nutrition assessment. Pt states current appetite is not good, and has been this way for 2d. Note PO intake of 10% x1meal, per chart review. Pt states following a regular diet at home, and has some issues with chewing food. Note pt has poor dentition, per visual assessment. Pt states recent issues with nausea and vomiting. Note episodes of emesis on 09/25, per chart review. Pt states no recent issues with constipation or diarrhea, and that his last BM was 09/24. Note pt currently on bowel regimen of senna BID, per chart review. Pt states some recent wt loss, but unsure of amount/timeframe. Note recent 14# wt loss x10mon, per chart review. Pt states current DM management as "I'm trying to keep it under control." Note unable to determine recent HbA1c, per chart review. Pt states "ballparking his CHO intake" at meal times. When asked how many CHOs he was trying to consume at meals, pt stated he didn't really know. ABNORMAL NUTRITION-RELATED LAB VALUES LOW: Pro 5.7; HIGH: Cl 110; BUN 28; cr 1.95; glu 172; AST 43; Est. kcal needs: 5473-0804 kcal | 25-30 kcal/kg Est. Pro needs: 52-66 g Pro | 0.8-1.0 g Pro/kg PES STATEMENT: Inadequate oral intake (NI-2.1) related to loss of appetite, nausea, and vomiting, as evidenced by pt interview and PO intake 10% x1meal. INTERVENTION: Continue with current diet order of Clear Liquid diet. Would not recommend nutrition supplementation at this time, as Ensure Clear is high in CHO. Discussed and provided education on DM management. Discussed CHO counting at meal times, and smartphone applications. Pt verbalized understanding of information provided. Encouraged pt to eat when able. Will continue to follow and reassess as pt needs, intake, and status change. Gulshan Shen, MS RD LD
[2020-09-26] MEDS: ENOXAPARIN 40 MG/0.4 ML (LOVENOX) SYR SC SCH (15:41)
--- NOTE | 2020-09-26 15:51 | NUR ---
PATIENT REQUESTED HIS BLOOD SUGAR BE TAKEN. HE FELT LIKE IT WAS GETTING HIGH. ACCUCHECK 321. DR GRIFFIN NOTIFIED. IT IS OKAY TO GIVE HIM 10 UNITS FROM THE SLIDING SCALE AT THIS TIME AND RECHECK IT AT 1800.
--- NOTE | 2020-09-26 18:55 | NUR ---
PATIENT TURNED ON HIS INSULIN PUMP. HE REPORTED THAT IT AUTOMATICALLY DEFAULTS TO THE CORRECT SETTINGS. HE GET A CONTINUOUS DOSE OF INSULIN BUT HE CAN'T REMEMBER WHAT IT IS OR WHERE TO FIND TO THE INFORMATION ON THE PUMP. HE REPORTED THAT HE WILL GIVE HIMSELF A BOLUS OF INSULIN WHEN HE EATS (HE HAS A SCALE THAT HE GOES USES TO DETERMINE THE AMOUNT). PATIENT'S INSULIN FROM HOME IS LABELED WITH HIS PATIENT STICKER AND PLACED IN THE REFRIGERATOR IN THE MED ROOM.
[2020-09-27] MEDS: inSUlin ASPART (NovoLOG) 1 UNIT/0.01 ML (CHARGE PER UNIT) SC SCH ×5 (00:22→20:21)
[2020-09-27] MEDS: morphine INJ 4 MG/ML 1 ML (VIAL/SYRINGE) IV PRN ×2 (02:44→02:46)
[2020-09-27] MEDS: PROMETHAZINE INJ 25 MG/ML (PHENERGAN) AMP IM PRN ×4 (02:44→20:20)
--- NOTE | 2020-09-27 02:48 | NUR ---
This nurse at this time pulled phenergan 1 mL vial and Morphine 1 mL vial. I administered the phenergan, then non administered the morphine as pt refused after I had pulled and scanned. Dose (0.5 mL) wasted with JORGE Morales, and the other partial dose of 0.5 is recorded in the omnicell. No morphine was given.
[2020-09-27] MEDS: ONDANSETRON 4 MG/2 ML (SDV) Z0FRAN IVP PRN ×3 (03:53→17:35)
[2020-09-27] MEDS ORDERED: cefTRIAXone 1,000 MG IV (ROCEPHIN) VIAL ONE (05:32)
[2020-09-27] MEDS ORDERED: WATER (STERILE) FOR INJECTION 10 ML ONE (05:32)
[2020-09-27] MEDS: cefTRIAXone FOR IV USE 1,000 MG in WATER (STERILE) FOR INJECTION 10 ML IV SCH (05:36)
[2020-09-27] MEDS: VENlafaxine XR 75 MG (EFFEXOR XR) CAP PO SCH (06:00)
[2020-09-27 06:22] LABS: ALBUMIN 3.9 GM/DL (3.2-4.5); POTASSIUM 3.9 MMOL/L (3.6-5.0)
[2020-09-27 06:23] LABS: CALCIUM 9.2 MG/DL (8.5-10.1)
[2020-09-27 06:25] LABS: TOTAL PROTEIN 6.8 GM/DL (6.4-8.2)
[2020-09-27 06:26] LABS: BASOPHILS % (AUTO) 0 % (0-10); BILIRUBIN,TOTAL 0.8 MG/DL (0.1-1.0); EOSINOPHILS % (AUTO) 0 % (0-10); HEMATOCRIT 37 % (40-54); HEMOGLOBIN 12.4 g/dL (13.3-17.7); LYMPHOCYTES % (AUTO) 8 % (12-44); MEAN CORPUSCULAR HEMOGLOBIN 31 pg (25-34); MEAN CORPUSCULAR HGB CONC 34 g/dL (32-36); MEAN CORPUSCULAR VOLUME 90 fL (80-99); MEAN PLATELET VOLUME 10.9 fL (9.0-12.2); MONOCYTES # (AUTO) 0.5 10^3/uL (0.0-1.0); MONOCYTES % (AUTO) 4 % (0-12); NEUTROPHILS % (AUTO) 87 % (42-75); PLATELET COUNT 238 10^3/uL (130-400); WHITE BLOOD COUNT 12.6 10^3/uL (4.3-11.0)
[2020-09-27 06:28] LABS: CREATININE SERUM 1.77 MG/DL (0.60-1.30)
[2020-09-27] MEDS: PANTOPRAZOLE 40 MG (PROTONIX) VIAL IV SCH (07:55)
[2020-09-27 08:00] VITALS: BP 166/82
[2020-09-27] MEDS: ENALAPRIL 10 MG (VASOTEC) TAB PO SCH ×2 (08:16→20:20)
[2020-09-27] MEDS: SENNA W/DOCUSATE (SENOKOT S) TABLET PO SCH ×2 (08:16→20:21)
--- NOTE | 2020-09-27 09:16 | Progress Note - Surgery ---
GABINO MENDEZ MED STUDENT 09/27/20 0915: Subjective Date Seen by a Provider: Sep 27, 2020 Time Seen by a Provider: 07:30 Subjective/Events-last exam Surg was consulted for gastroparesis and N/V. Pt states he feels about the same as yesterday. He is still dry heaving and has to rinse his mouth out because it feels dry. Pt states his vision started getting blurry last night when his blood sugars became really high. Pt also states hand shaking is new since yesterday but normally gets it with uncontrolled diabetes. Pt has nausea, feels like he's having acid reflux, and thirst. Pt denies pain in abdomen. Pt denies having BM since being admitted but had flatulence 2x yesterday. Pt denies difficulty urinating. Pt is on diabetic diet but not tolerating it well. Pt states his DM is not well controlled. Review of Systems HEENT: No Head Aches; Visual Changes (blurry vision); No Eye Pain, No Ear Pain Pulmonary: No Cough, No Pleuritic Chest Pain Cardiovascular: No: Chest Pain Gastrointestinal: Nausea, Vomiting (spit up liquid.) Neurological: Weakness Focused Exam Lactate Level 09/25/20 16:05: Lactic Acid Level 1.07 Objective Exam Vital Signs Date Time Temp Pulse Resp B/P (MAP) Pulse Ox O2 Delivery O2 Flow Rate FiO2 09/27/20 08:00 36.7 82 20 166/82 98 Room Air 09/27/20 08:00 Room Air 09/27/20 08:00 36.7 82 20 166/82 (110) 98 Room Air 09/27/20 03:44 37.3 86 19 188/89 97 Room Air 09/27/20 00:58 37.1 70 20 143/79 99 Room Air 09/26/20 22:57 37.1 70 20 143/79 99 Room Air 09/26/20 20:00 98 Room Air 09/26/20 19:35 37.0 90 18 184/96 99 Room Air 09/26/20 15:47 36.9 91 18 178/86 99 Room Air 09/26/20 12:00 35.6 77 18 188/87 96 Room Air I & O 09/27/20 07:00 Intake Total 4880 ml Output Total 2585 ml Balance 2295 ml Capillary Refill : Less Than 3 Seconds General Appearance: No Apparent Distress, WD/WN, Chronically ill HEENT: PERRL/EOMI Respiratory: Lungs Clear, No Accessory Muscle Use, No Respiratory Distress Cardiovascular: Regular Rate, Rhythm Gastrointestinal: soft Extremity: Normal Inspection, No Pedal Edema Neurologic/Psychiatric: Alert, Oriented x3, Normal Mood/Affect Skin: Normal Color, Warm/Dry Results Lab Laboratory Tests 09/26/20 09:17: Glucometer 83 09/26/20 11:51: Glucometer 173H 09/26/20 15:23: Glucometer 321H 09/26/20 17:02: Glucometer 334H 09/26/20 21:04: Glucometer 87 09/26/20 21:36: Glucometer 72 09/26/20 22:18: Glucometer 70 09/26/20 22:47: Glucometer 96 09/27/20 01:44: Glucometer 207H 09/27/20 03:47: Glucometer 283H 09/27/20 05:29: White Blood Count 12.6H, Red Blood Count 4.07L, Hemoglobin 12.4L, Hematocrit 37L , Mean Corpuscular Volume 90, Mean Corpuscular Hemoglobin 31, Mean Corpuscular Hemoglobin Concent 34, Red Cell Distribution Width 12.9, Platelet Count 238, Mean Platelet Volume 10.9, Immature Granulocyte % (Auto) 1, Neutrophils (%) (Auto) 87H, Lymphocytes (%) (Auto) 8L, Monocytes (%) (Auto) 4, Eosinophils (%) (Auto) 0, Basophils (%) (Auto) 0, Neutrophils # (Auto) 11.0H, Lymphocytes # (Auto) 1.0, Monocytes # (Auto) 0.5, Eosinophils # (Auto) 0.0, Basophils # (Auto) 0.0, Immature Granulocyte # (Auto) 0.1, Sodium Level 140, Potassium Level 3.9, Chloride Level 102, Carbon Dioxide Level 22, Anion Gap 16H, Blood Urea Nitrogen 28H, Creatinine 1.77H, Estimat Glomerular Filtration Rate 42, BUN/Creatinine Ratio 16, Glucose Level 316H, Calcium Level 9.2, Corrected Calcium 9.3, Total Bilirubin 0.8, Aspartate Amino Transf (AST/SGOT) 39H, Alanine Aminotransferase (ALT/SGPT) 20, Alkaline Phosphatase 72, Total Protein 6.8, Albumin 3.9 09/27/20 05:41: Glucometer 314H 09/27/20 06:32: Glucometer 233H 09/27/20 07:59: Glucometer 230H Assessment/Plan Assessment/Plan Assessment/Plan nausea and vomiting gastroparesis DKA - DM meds. control diabetes to help with blurred vision, hand tremors, and gastroparesis. refer for pacemaker battery change for GI. marijuana cessation. no surgery necessary at this time. monitor for changes. Clinical Quality Measures DVT/VTE Risk/Contraindication: Risk Factor Score Per Nursin RFS Level Per Nursing on Admit: 1=Low/No VTE PPX GIOVANNI JENNINGS DO 09/27/20 1348: Subjective Time Seen by a Provider: 12:19 Subjective/Events-last exam Pt seen and examined, no new complaints. Pt still has nausea and vomiting. Review of Systems HEENT: No Head Aches; Visual Changes (blurry vision); No Eye Pain Pulmonary: No Cough, No Pleuritic Chest Pain Cardiovascular: No: Chest Pain, Palpitations Gastrointestinal: Nausea, Vomiting (spit up liquid.) Objective Exam General Appearance: No Apparent Distress, WD/WN HEENT: PERRL/EOMI, Moist Mucous Membranes Respiratory: Lungs Clear, No Accessory Muscle Use, No Respiratory Distress Cardiovascular: Regular Rate, Rhythm, No Murmur Gastrointestinal: soft, no organomegaly; No distended Skin: Normal Color, Warm/Dry Assessment/Plan Assessment/Plan Assessment/Plan Chronic N/V Gastroparesis DKA Unfortunately pt has a chronic problem, due to DM and Gastroparesis (plus some from THC use). Nothing surgical can be done. I will sign off and reconsult if needed. Supervisory-Addendum Brief Verification & Attestation Participated in pt care: history, MDM, physical Personally performed: exam, history, MDM Care discussed with: Medical Student Procedures: n/a Verification and Attestation of Medical Student E/M Service A medical student performed and documented this service. I then reviewed and verified all information documented by the medical student and made modifications to such information, when appropriate. I personally performed a physical exam, medical decision making and then discussed any differences between the notes and made revisions as necessary to create one note. Giovanni Jennings , 09/27/20 , 13:48 GABINO MENDEZ MED STUDENT Sep 27, 2020 09:15 GIOVANNI JENNINGS DO Sep 27, 2020 13:48
--- NOTE | 2020-09-27 11:42 | NUR ---
PATIENT'S BLOOD SUGAR WAS 213. HE PUT THAT NUMBER INTO HIS INSULIN PUMP. IT GAVE HIM 1.8 UNITS OF INSULIN. HE WANTS TO USE HIS PUMP INSTEAD OF THE SLIDING SCALE ORDERED. HE WANTS TO TALK TO DR GRIFFIN AGAIN. DR GRIFFIN NOTIFIED Addendum: 09/27/20 at 1525 by DOMONIQUE VASQUEZ RN PATIENT'S INSULIN PUMP GIVES HIM A CONTINUOUS DOSE OF INSULIN: 0.75 UNITS/HOUR
[2020-09-27] MEDS ORDERED: inSUlin ASPART (NovoLOG) 1 UNIT/0.01 ML (CHARGE PER UNIT) SC PRN (11:45)
--- NOTE | 2020-09-27 11:55 | Progress Note - Hospitalist ---
Subjective HPI/CC On Admission Date Seen by Provider: Sep 27, 2020 Time Seen by Provider: 11:52 CC: DKA HPI: This is a 45yoWM Type 1 DM on insulin pump who presents to the ER with N/V and elevated sugar. Insulin drip initiated and patient was placed in ICU. Subjective/Events-last exam Patient tremulous anxious in appearance reporting still feeling nauseated. He admits that he been taking more Valium than prescribed through his primary care had run out early and ask if he could be in withdrawal. He denies abdominal pain chest pain or shortness of breath. Focused Exam Lactate Level 09/25/20 16:05: Lactic Acid Level 1.07 Objective Exam Vital Signs Vital Signs Date Time Temp Pulse Resp B/P (MAP) Pulse Ox O2 Delivery O2 Flow Rate FiO2 09/27/20 08:00 36.7 82 20 166/82 98 Room Air Capillary Refill : Less Than 3 Seconds General Appearance: Anxious, Chronically ill Respiratory: Chest Non Tender, Lungs Clear, Normal Breath Sounds, No Accessory Muscle Use, No Respiratory Distress Cardiovascular: Regular Rate, Rhythm, No Edema, No Gallop, No JVD, No Murmur, Normal Peripheral Pulses Gastrointestinal: Normal Bowel Sounds, No Organomegaly, No Pulsatile Mass, Non Tender, Soft Results/Procedures Lab Laboratory Tests 09/27/20 05:29 Patient resulted labs reviewed. Assessment/Plan Assessment and Plan Assess & Plan/Chief Complaint 1. DKA resolved patient back on insulin pump continue to monitor. 2. Diabetic gastroparesis likely aggravated by benzodiazepine withdrawal will resume diazepam 5 mg now then every 12 and add metoclopramide. While the patient does have a gastric pacemaker for gastroparesis the battery is been for a year or 2 when he had been doing well from a nausea and vomiting standpoint previously. He recently resumed marijuana and is aware of hyperemesis syndrome and states he will not be smoking marijuana in the future. 3. Generalized anxiety see number 2. Clinical Quality Measures DVT/VTE Risk/Contraindication: Risk Factor Score Per Nursin RFS Level Per Nursing on Admit: 1=Low/No VTE PPX SCOTT GRIFFIN MD Sep 27, 2020 11:55
[2020-09-27 12:00] VITALS: BP 176/98
[2020-09-27] MEDS ORDERED: DIAZEPAM 5 MG (VALIUM) TABLET PO ONE (12:00)
[2020-09-27] MEDS: METOCLOPRAMIDE INJ 10 MG/2 ML (REGLAN) IVP SCH ×2 (12:05→17:35)
[2020-09-27] MEDS: ENOXAPARIN 40 MG/0.4 ML (LOVENOX) SYR SC SCH (14:56)
--- NOTE | 2020-09-27 15:22 | NUR ---
PATIENTS BLOOD SUGAR IS 290. HE WANTED TO USE HIS INSULIN PUMP INSTEAD OF OUR INSULIN/SLIDING SCALE. HIS PUMP GAVE HIM AN ADDITIONAL 2.8 UNITS.
[2020-09-27 15:48] VITALS: BP 201/83
[2020-09-27 19:36] VITALS: BP 144/81
[2020-09-27] MEDS: DIAZEPAM 5 MG (VALIUM) TABLET PO SCH (20:20)
--- NOTE | 2020-09-27 20:30 | NUR ---
PATIENTS BLOOD SUGAR IS 242 AT THIS TIME. HE WANTED TO USE HIS INSULIN PUMP INSTEAD OF OUR INSULIN/SLIDING SCALE. HIS PUMP GAVE HIM AN ADDITIONAL 2.4 units UNITS.
[2020-09-28] MEDS: METOCLOPRAMIDE INJ 10 MG/2 ML (REGLAN) IVP SCH ×2 (00:18→05:40)
[2020-09-28] MEDS: PROMETHAZINE INJ 25 MG/ML (PHENERGAN) AMP IM PRN ×2 (00:30→04:53)
--- NOTE | 2020-09-28 00:40 | NUR ---
PATIENTS BLOOD SUGAR IS 193 AT THIS TIME. HE WANTED TO USE HIS INSULIN PUMP INSTEAD OF OUR INSULIN/SLIDING SCALE. HIS PUMP GAVE HIM AN ADDITIONAL 1.4 units UNITS.
[2020-09-28 00:47] VITALS: BP 152/78
[2020-09-28 03:50] VITALS: BP 169/81
[2020-09-28] MEDS ORDERED: cefTRIAXone 1,000 MG IV (ROCEPHIN) VIAL ONE (04:48)
[2020-09-28] MEDS ORDERED: WATER (STERILE) FOR INJECTION 10 ML ONE (04:48)
[2020-09-28] MEDS: cefTRIAXone FOR IV USE 1,000 MG in WATER (STERILE) FOR INJECTION 10 ML IV SCH (04:53)
--- NOTE | 2020-09-28 05:37 | NUR ---
PATIENTS BLOOD SUGAR IS 203 AT THIS TIME. HE WANTED TO USE HIS INSULIN PUMP INSTEAD OF OUR INSULIN/SLIDING SCALE. HIS PUMP GAVE HIM AN ADDITIONAL 1.6 units UNITS.
[2020-09-28] MEDS: inSUlin ASPART (NovoLOG) 1 UNIT/0.01 ML (CHARGE PER UNIT) SC SCH ×2 (05:38→11:55)
[2020-09-28 08:00] VITALS: BP 173/93
[2020-09-28] MEDS: VENlafaxine XR 75 MG (EFFEXOR XR) CAP PO SCH (08:09)
[2020-09-28] MEDS: PANTOPRAZOLE 40 MG (PROTONIX) VIAL IV SCH (08:09)
[2020-09-28] MEDS: ONDANSETRON 4 MG/2 ML (SDV) Z0FRAN IVP PRN (08:09)
[2020-09-28] MEDS: ENALAPRIL 10 MG (VASOTEC) TAB PO SCH (08:09)
[2020-09-28] MEDS: DIAZEPAM 5 MG (VALIUM) TABLET PO SCH (08:09)
[2020-09-28] MEDS: SENNA W/DOCUSATE (SENOKOT S) TABLET PO SCH (08:10)
[2020-09-28] MEDS ORDERED: METO10TA3 PO (10:37)
--- NOTE | 2020-09-28 10:45 | Discharge Summary ---
Diagnosis/Chief Complaint Date of Admission Sep 25, 2020 at 11:46 Date of Discharge Discharge Date: Sep 28, 2020 Admission Diagnosis Insulin drip DKA protocl IVF Primary Care Angelo Hood Discharge Diagnosis (1) Alkalosis (2) Hyperglycemia (3) Nausea & vomiting (4) Acute kidney injury (5) Type 1 diabetes (6) Gastroparesis (7) Pacemaker (8) Leukocytosis (9) Smoker Discharge Summary Discharge Physical Exam Allergies: Coded Allergies: Sulfa (Sulfonamide Antibiotics) (Verified Allergy, Intermediate, RASH/HIVES, 07/02/12) ciprofloxacin (Verified Allergy, Intermediate, SWELLING, 03/08/12) Vitals & I&Os Vital Signs Date Time Temp Pulse Resp B/P (MAP) Pulse Ox O2 Delivery O2 Flow Rate FiO2 09/28/20 08:00 Room Air 09/28/20 08:00 36.7 73 20 173/93 (119) 99 General Appearance: No Apparent Distress Respiratory: Chest Non Tender, Lungs Clear, Normal Breath Sounds, No Accessory Muscle Use, No Respiratory Distress Cardiovascular: Regular Rate, Rhythm, No Edema, No Gallop, No JVD, No Murmur, Normal Peripheral Pulses Gastrointestinal: Normal Bowel Sounds, No Organomegaly, No Pulsatile Mass, Non Tender, Soft Hospital Course This patient presented today with a chief complaint of nausea and vomiting. He states that he started vomiting profusely last night multiple times and into this morning, he also states that he would alternate between feeling hot and cold. He says that he felt a little better this morning but came to the ED because he still was vomiting. He denied any blood in his vomit. He states that he is a type 1 diabetic with an insulin pump. he stated his blood sugar was 148 when he started vomiting. On arrival to ER his sugars were in the 400s.He has had episodes like this a couple of times. He said he had a milder case like this about 4 months ago, otherwise its been about 8 years since he has had problems like this. He denies any chest pain or trouble breathing. He denies any diarrhea, dizziness, vision loss, joint pain, or swelling. SouIV fluids and insulin were initiated with improvement in nausea and vomiting. Patient has a longstanding history of diabetic related gastroparesis and even has a gastric pacemaker but the battery had run out several years ago and the patient had not had any gastroparesis related admissions for gastroparesis until now. We did initiate IV metoclopramide and will continue p.o. The patient had started smoking marijuana again and associates this with exacerbating nausea and vomiting. He is aware of the association with hyperemesis and THC and states that he does not have any intention on smoking marijuana again. He was anxious for discharge so that he could smoke tobacco stating he breaks out with patches and does not like the lozenge or sore inhalers for nicotine replacement. He is aware of the negative health impact smoking has but is not ready to quit after discussion. He was advised to follow-up with [facility] hospital in the next 1 to 2 weeks continuing his home medications including insulin per pump and for now the addition of metoclopramide 10 mg half an hour before meals and at bedtime scheduled. Labs (last 24 hrs) Laboratory Tests 09/27/20 11:34: Glucometer 213H 09/27/20 15:18: Glucometer 290H 09/27/20 20:05: Glucometer 242H 09/28/20 00:37: Glucometer 193H 09/28/20 05:34: Glucometer 203H Patient resulted labs reviewed. Pending Labs Laboratory Tests 09/28/20 05:34: Glucometer 203 Discussion & Recommendations Discharge Planning: >30 minutes discharge planning Discharge Home Medications: Active Scripts Active Metoclopramide HCl 10 Mg Tablet 10 Mg PO ACHS PRN 30 Days Reported Novolog (Insulin Aspart) 100 Unit/1 Ml Susp SQ UD MDD 50 MAX OF 50 UNITS DAILY PER PUMP Oxycodone-Acetaminophen 10-325 (Oxycodone HCl/Acetaminophen) 1 Each Tablet 1 Ea PO Q6H PRN Promethazine HCl 50 Mg Tablet 50 Mg PO Q8H PRN Paroxetine HCl 20 Mg Tablet 20 Mg PO DAILY Enalapril Maleate 10 Mg Tablet 10 Mg PO HS Instructions to patient/family Please see electronic discharge instructions given to patient. Clinical Quality Measures DVT/VTE Risk/Contraindication: Risk Factor Score Per Nursin RFS Level Per Nursing on Admit: 1=Low/No VTE PPX Copy Copies To 1: [facility]/SCOTT MONCADA MD Sep 28, 2020 10:44
--- NOTE | 2020-09-28 11:12 | Progress Note - Surgery ---
GABINO MENDEZ MED STUDENT 09/28/20 1112: Subjective Date Seen by a Provider: Sep 28, 2020 Time Seen by a Provider: 10:45 Subjective/Events-last exam Pt on liquid diet. Pt hasn't had BM yet but is passing gas. Pt last passed gas w/in the past 30 mins. Pt denies N/V and has no trouble urinating. Pt talked to a GI doctor in who wants to leave in GI pacemaker and doesn't feel it's necessary to replace battery at this time unless new sx occur. Pt states he thinks he's in the hospital w/ current sx d/t marijuana use. Pt states he's had 2 family members in the past month and his fiance left him. He had been taking diazepam prescribed by Dr. Brink at [facility]. Pt admitted to abusing pills to avoid reality and possibly having withdrawl sx. Pt states he will try to control his DM once outside of hospital. Review of Systems General: No Chills, No Night Sweats HEENT: No Head Aches, No Visual Changes, No Eye Pain, No Ear Pain Pulmonary: No Cough Cardiovascular: No: Chest Pain Gastrointestinal: No: Nausea, Vomiting, Abdominal Pain Focused Exam Lactate Level 09/25/20 16:05: Lactic Acid Level 1.07 Objective Exam Vital Signs Date Time Temp Pulse Resp B/P (MAP) Pulse Ox O2 Delivery O2 Flow Rate FiO2 09/28/20 08:00 Room Air 09/28/20 08:00 36.7 73 20 173/93 (119) 99 Room Air 09/28/20 03:50 37.4 91 20 169/81 (110) 95 Room Air 09/28/20 00:47 37.2 78 19 152/78 (102) 97 Room Air 09/27/20 20:00 Room Air 09/27/20 19:36 37.4 77 18 144/81 (102) 98 Room Air 09/27/20 15:48 37.1 94 18 201/83 (122) 98 Room Air 09/27/20 12:00 36.9 75 20 176/98 (124) 100 Room Air I & O 09/28/20 07:00 Intake Total 1000 ml Output Total 2375 ml Balance -1375 ml Capillary Refill : Less Than 3 Seconds General Appearance: No Apparent Distress HEENT: Other (Extremely dry mucous membranes) Respiratory: Chest Non Tender, Lungs Clear, Normal Breath Sounds, No Accessory Muscle Use, No Respiratory Distress Cardiovascular: Regular Rate, Rhythm, No Murmur, Normal Peripheral Pulses Gastrointestinal: soft, no organomegaly; No distended Extremity: Normal Capillary Refill, Normal Inspection, No Pedal Edema Neurologic/Psychiatric: Alert, Oriented x3, Normal Mood/Affect Skin: Normal Color, Warm/Dry Results Lab Laboratory Tests 09/27/20 11:34: Glucometer 213H 09/27/20 15:18: Glucometer 290H 09/27/20 20:05: Glucometer 242H 09/28/20 00:37: Glucometer 193H 09/28/20 05:34: Glucometer 203H Assessment/Plan Assessment/Plan Assessment/Plan gastroparesis DKA - discharge today. no surgery indicated. Clinical Quality Measures DVT/VTE Risk/Contraindication: Risk Factor Score Per Nursin RFS Level Per Nursing on Admit: 1=Low/No VTE PPX GIOVANNI JENNINGS DO 09/28/20 1231: Subjective Time Seen by a Provider: 11:28 Subjective/Events-last exam I saw pt just before he was leaving, stated he was feeling better and wanted to go home. Review of Systems General: No Chills, No Night Sweats Pulmonary: No Cough Cardiovascular: No: Chest Pain Gastrointestinal: No: Nausea, Vomiting, Abdominal Pain Objective Exam General Appearance: No Apparent Distress Respiratory: Lungs Clear, Normal Breath Sounds, No Accessory Muscle Use, No Respiratory Distress Cardiovascular: Regular Rate, Rhythm, No Murmur Gastrointestinal: soft, no organomegaly; No distended Assessment/Plan Assessment/Plan Assessment/Plan N/V - resolved Gastroparesis Pt told the best thing for him will be to control DM, stop THC use and see if he can find surgeon to replace generator battery (he may need it removed com pletely). Supervisory-Addendum Brief Verification & Attestation Participated in pt care: history, MDM, physical Personally performed: exam, history, MDM Care discussed with: Medical Student Procedures: n/a Verification and Attestation of Medical Student E/M Service A medical student performed and documented this service. I then reviewed and verified all information documented by the medical student and made modifications to such information, when appropriate. I personally performed a physical exam, medical decision making and then discussed any differences between the notes and made revisions as necessary to create one note. Giovanni Jennings , 09/28/20 , 12:31 GABINO MENDEZ MED STUDENT Sep 28, 2020 11:12 GIOVANNI JENNINGS DO Sep 28, 2020 12:31
--- NOTE | 2020-09-28 11:56 | NUR ---
PATIENT REPORTED THAT HE CHECKED HIS OWN BLOOD SUGAR. IT WAS 286 SO HE GAVE HIMSELF 2.6 UNITS OF INSULIN USING HIS PUMP. FLU SHOT GIVEN PER REQUEST. PATIENT'S INSULIN RETURNED TO HIM PRIOR TO DISCHARGE.
[2020-09-28 11:57] VITALS: BP 173/93
== END 2020-09-28 11:55 | disposition home or self-care (01) | DRG 638 ==
LOC: EDUNIT# 09:23 → ER 09:27 → ICU 11:46 → 4TH 09-26 06:25
PROVIDERS: ADMIT Internal Medicine; ATTEND Internal Medicine
DX: E10.10 Type 1 diabetes mellitus with ketoacidosis without coma (principal); N17.9 Acute kidney failure, unspecified; E87.3 Alkalosis; F15.93 Other stimulant use, unspecified with withdrawal; E10.43 Type 1 diabetes mellitus with diabetic autonomic (poly)neuropathy; K31.84 Gastroparesis; D72.829 Elevated white blood cell count, unspecified; F41.1 Generalized anxiety disorder; E86.0 Dehydration; I10 Essential (primary) hypertension; F32.9 Major depressive disorder, single episode, unspecified; K21.9 Gastro-esophageal reflux disease without esophagitis; F17.210 Nicotine dependence, cigarettes, uncomplicated; Z96.89 Presence of other specified functional implants; Z96.41 Presence of insulin pump (external) (internal); Z23 Encounter for immunization
CPT/HCPCS: 36415; 71045; 80053; 80306; 81000; 82150; 82805; 82962; 83605; 83690; 83735; 84100; 85007; 85025; 85027; 90686; 99291

== ENCOUNTER 2020-11-28 13:07 | Outpatient (RCR) | payer MEDICARE, MEDICAID ==
[2020-10-24 13:34] VITALS: BP 144/83
[~2020-11-28 13:07] MED LIST changes: +ENAL10TA16 PO; +HEParin (CENTRAL IV FLUSH) 500 UNIT/5 ML SYR IV ONE; +HEParin (CENTRAL IV FLUSH) 500 UNIT/5 ML SYR ONE; +INSU100V16 SQ; +METO10TA3 PO; +OXYC-556 PO; +PARO20TA5 PO; +PROM50TA3 PO
[2020-11-28] MEDS ORDERED: HEParin (CENTRAL IV FLUSH) 500 UNIT/5 ML SYR ONE (13:09)
[2020-11-28] MEDS ORDERED: HEParin (CENTRAL IV FLUSH) 500 UNIT/5 ML SYR IV ONE (13:15)
[2020-11-28 13:25] VITALS: BP 150/90
== END 2020-11-28 13:20 | disposition home or self-care (01) ==
LOC: SDC 13:07
PROVIDERS: ATTEND Nurse Practitioner Community Health
DX: Z45.2 Encounter for adjustment and management of vascular access device (principal); E10.65 Type 1 diabetes mellitus with hyperglycemia; K31.84 Gastroparesis
CPT/HCPCS: 96523

== ENCOUNTER 2021-04-03 13:07 | Outpatient (RCR) | payer MEDICARE, MEDICAID ==
[2021-01-30 12:55] VITALS: BP 138/88
[2021-03-06 13:12] VITALS: BP 134/92
[2021-04-03 13:00] VITALS: BP 112/78
[~2021-04-03 13:07] MED LIST changes: -METO10TA3 PO; +MTC10T PO
[2021-04-03] MEDS ORDERED: HEParin (CENTRAL IV FLUSH) 500 UNIT/5 ML SYR IV ONE (13:30)
== END 2021-04-30 | disposition home or self-care (01) ==
LOC: SDC 13:07
PROVIDERS: ATTEND Nurse Practitioner Community Health
DX: Z45.2 Encounter for adjustment and management of vascular access device (principal); E10.65 Type 1 diabetes mellitus with hyperglycemia; K31.84 Gastroparesis
CPT/HCPCS: 96523

== ENCOUNTER 2021-07-16 13:00 | Outpatient (RCR) | payer MEDICARE, MEDICAID ==
[2021-05-15 13:12] VITALS: BP 125/91
[2021-06-18 13:25] VITALS: BP 132/87
[~2021-07-16] VITALS: Ht 175.3 cm
[2021-07-16] MEDS ORDERED: HEParin (CENTRAL IV FLUSH) 500 UNIT/5 ML SYR ONE (13:05)
[2021-07-16 13:15] VITALS: BP 128/99
[2021-07-16] MEDS ORDERED: HEParin (CENTRAL IV FLUSH) 500 UNIT/5 ML SYR IV ONE (13:20)
== END 2021-08-13 | disposition home or self-care (01) ==
LOC: SDC 13:00
PROVIDERS: ATTEND Nurse Practitioner Community Health
DX: Z45.2 Encounter for adjustment and management of vascular access device (principal); K31.84 Gastroparesis; E10.65 Type 1 diabetes mellitus with hyperglycemia
CPT/HCPCS: 96523

== ENCOUNTER 2021-10-21 12:45 | Outpatient (RCR) | payer MEDICARE, MEDICAID ==
[2021-08-18 13:25] VITALS: BP 140/89
[2021-09-17 13:22] VITALS: BP 143/91
[~2021-10-21] VITALS: Ht 172.7 cm
[2021-10-21] MEDS ORDERED: HEParin (CENTRAL IV FLUSH) 500 UNIT/5 ML SYR ONE (12:51)
[2021-10-21 13:00] VITALS: BP 142/97
[2021-10-21] MEDS ORDERED: HEParin (CENTRAL IV FLUSH) 500 UNIT/5 ML SYR IV PRN (13:00)
== END 2021-11-16 | disposition home or self-care (01) ==
LOC: SDC 12:45
PROVIDERS: ATTEND Physician Assistant
DX: Z45.2 Encounter for adjustment and management of vascular access device (principal); K31.84 Gastroparesis; E10.65 Type 1 diabetes mellitus with hyperglycemia; N18.31 Chronic kidney disease, stage 3a
CPT/HCPCS: 96523

== ENCOUNTER 2021-11-26 13:19 | Outpatient (RCR) | payer MEDICARE, MEDICAID ==
[~2021-11-26 13:19] MED LIST changes: -HEParin (CENTRAL IV FLUSH) 500 UNIT/5 ML SYR IV ONE; -HEParin (CENTRAL IV FLUSH) 500 UNIT/5 ML SYR ONE
[2021-11-26] MEDS ORDERED: HEParin (CENTRAL IV FLUSH) 500 UNIT/5 ML SYR ONE (13:23)
[2021-11-26 13:25] VITALS: BP 152/101
[2021-11-26] MEDS ORDERED: HEParin (CENTRAL IV FLUSH) 500 UNIT/5 ML SYR IV ONE (13:30)
== END 2021-11-26 13:25 | disposition home or self-care (01) ==
LOC: SDC 13:19
PROVIDERS: ATTEND Physician Assistant
DX: Z45.2 Encounter for adjustment and management of vascular access device (principal); K31.84 Gastroparesis; N18.31 Chronic kidney disease, stage 3a
CPT/HCPCS: 96523

== ENCOUNTER → 2021-12-31 | Outpatient (CLI) | payer MEDICARE, MEDICAID ==
[~2021-12-31] VITALS: Ht 172.7 cm
[~2021-12-31] MED LIST changes: +HEParin (CENTRAL IV FLUSH) 500 UNIT/5 ML SYR IV ONE; +HEParin (CENTRAL IV FLUSH) 500 UNIT/5 ML SYR ONE
[2021-12-31 13:25] VITALS: BP 143/96
== END ==
LOC: SDC 13:01
PROVIDERS: ATTEND Physician Assistant
DX: N18.31 Chronic kidney disease, stage 3a (principal)
CPT/HCPCS: 96523

== ENCOUNTER → 2022-01-28 | Outpatient (CLI) | payer MEDICARE, MEDICAID ==
[~2022-01-28] VITALS: Ht 172.7 cm; Wt 98.2 kg
[~2022-01-28] MED LIST changes: -HEParin (CENTRAL IV FLUSH) 500 UNIT/5 ML SYR ONE
[2022-01-28 13:15] VITALS: BP 155/94
== END ==
LOC: SDC 12:59
PROVIDERS: ATTEND Physician Assistant
DX: N18.31 Chronic kidney disease, stage 3a (principal)
CPT/HCPCS: 96523

== ENCOUNTER 2022-02-03 21:16 | Observation (INO) | payer MEDICARE, MEDICAID ==
[~2022-02-03] VITALS: Ht 173 cm; Wt 85.6 kg
[~2022-02-03 21:16] MED LIST changes: -HEParin (CENTRAL IV FLUSH) 500 UNIT/5 ML SYR IV ONE
[2022-02-03] MEDS ORDERED: LACTATED RINGERS 1,000 ML IV SCH ×2 (21:30→21:45)
[2022-02-03 21:43] LABS: BASOPHILS # (AUTO) 0.1 10^3/uL (0.0-0.1); BASOPHILS % (AUTO) 1 % (0-10); EOSINOPHILS # (AUTO) 0.2 10^3/uL (0.0-0.3); EOSINOPHILS % (AUTO) 1 % (0-10); HEMATOCRIT 41 % (40-54); HEMOGLOBIN 14.3 g/dL (13.3-17.7); LYMPHOCYTES # (AUTO) 1.3 10^3/uL (1.0-4.0); LYMPHOCYTES % (AUTO) 9 % (12-44); MEAN CORPUSCULAR HEMOGLOBIN 32 pg (25-34); MEAN CORPUSCULAR HGB CONC 35 g/dL (32-36); MEAN CORPUSCULAR VOLUME 92 fL (80-99); MEAN PLATELET VOLUME 10.4 fL (9.0-12.2); MONOCYTES % (AUTO) 6 % (0-12); NEUTROPHILS # (AUTO) 12.3 10^3/uL (1.8-7.8); NEUTROPHILS % (AUTO) 83 % (42-75); PLATELET COUNT 214 10^3/uL (130-400); WHITE BLOOD COUNT 14.8 10^3/uL (4.3-11.0)
--- NOTE | 2022-02-03 21:43 | ED Abdominal Pain ---
General Chief Complaint: Abdominal/GI Problems Stated Complaint: LOWER ABDOMINAL PAIN Nursing Triage Note: Pt arrives per POV w/ c/o abdominal pain that started @ approximately 1200. Pt ambulatory to room and attached to monitoring coordinator. Source of Information: Patient Exam Limitations: No Limitations History of Present Illness Date Seen by Provider: Feb 03, 2022 Time Seen by Provider: 21:41 Initial Comments To ER with c/o right lower abdominal pain since 12pm. Feels like she needs to pass gas but unable to do so. HX of IDDM, gastroparesis and has insulin pump & Gastric pacemaker. No Nausea, vomiting, diarrhea or dysuria. Timing/Duration: 1-2 Days Severity/Quality: Moderate Location: Generalized Abdomen Radiation: No Radiation Activities at Onset: None Associated Symptoms: No Nausea/Vomiting Allergies and Home Medications Allergies Coded Allergies: Sulfa (Sulfonamide Antibiotics) (Verified Allergy, Intermediate, RASH/HIVES, 07/02/12) ciprofloxacin (Verified Allergy, Intermediate, SWELLING, 03/08/12) Patient Home Medication List Home Medication List Reviewed: Yes Enalapril Maleate (Enalapril Maleate) 10 Mg Tablet, 10 MG PO HS, (Reported) Entered as Reported by: ELIZA DUKE on 09/26/20848 Insulin Aspart (Novolog) 100 Unit/1 Ml Susp, SQ UD, (Reported) Entered as Reported by: ELIZA DUKE on 09/26/20848 Metoclopramide HCl (Metoclopramide HCl) 10 Mg Tablet, 10 MG PO ACHS PRN for lynne eduled Prescribed by: SCOTT GRIFFIN on 09/28/20 1037 Oxycodone HCl/Acetaminophen (Oxycodone-Acetaminophen 10-325) 1 Each Tablet, 1 EA PO Q6H PRN for PAIN-MODERATE (5-7), (Reported) Entered as Reported by: ELIZA DUKE on 09/26/20848 Paroxetine HCl (Paroxetine HCl) 20 Mg Tablet, 20 MG PO DAILY, (Reported) Entered as Reported by: ELIZA DUKE on 09/26/20848 Promethazine HCl (Promethazine HCl) 50 Mg Tablet, 50 MG PO Q8H PRN for NAUSEA/VOMITING-2ND LINE, (Reported) Entered as Reported by: ELIZA DUKE on 09/26/20848 Review of Systems Review of Systems Constitutional: see HPI EENTM: No Symptoms Reported Respiratory: No Symptoms Reported Cardiovascular: No Symptoms Reported Gastrointestinal: See HPI, Abdominal Pain; Denies Diarrhea, Denies Nausea Genitourinary: No Symptoms Reported Musculoskeletal: no symptoms reported Skin: no symptoms reported Psychiatric/Neurological: No Symptoms Reported Endocrine: No Symptoms Reported Hematologic/Lymphatic: No Symptoms Reported Past Luqqghb-Zrrqux-Liwsqn Hx Immunizations Up To Date Tetanus Booster (TDap): Unknown Seasonal Allergies Seasonal Allergies: No Past Medical History Surgeries: Yes Respiratory: No Cardiac: Yes Hypertension Neurological: Yes Neuropathy Reproductive Disorders: No Sexually Transmitted Disease: No Genitourinary: No Gastrointestinal: Yes (Gastroparesis) Gastroesophageal Reflux Musculoskeletal: No Endocrine: Yes Diabetes, Insulin dep HEENT: No Loss of Vision: Denies Hearing Impairment: Denies Cancer: No Psychosocial: Yes Anxiety, Depression Integumentary: No Blood Disorders: No Family Medical History Cancer, Diabetes Physical Exam Vital Signs Vital Signs - First Documented 02/03/22 21:25 Temp 35.6 Pulse 98 Resp 20 B/P (MAP) 164/105 (124) Pulse Ox 98 O2 Delivery Room Air Capillary Refill : Less Than 3 Seconds Height/Weight/BMI Height: 5'8.00" Weight: 163lbs. 11.7oz. 74.614900ly; 27.00 BMI Method:Stated General Appearance: WD/WN, no apparent distress Neck: non-tender, full range of motion Respiratory: no respiratory distress, no accessory muscle use Cardiovascular: no murmur, tachycardia Gastrointestinal: normal bowel sounds, soft; No distended, No guarding, No rebound; tenderness Extremities: normal range of motion, non-tender Neurologic/Psychiatric: alert, normal mood/affect, oriented x 3 Skin: normal color, warm/dry Progress/Results/Core Measures Results/Orders Lab Results Laboratory Tests Test 02/03/22 21:38 Range/Units White Blood Count 14.8 H 4.3-11.0 10^3/uL Red Blood Count 4.49 4.30-5.52 10^6/uL Hemoglobin 14.3 13.3-17.7 g/dL Hematocrit 41 40-54 % Mean Corpuscular Volume 92 80-99 fL Mean Corpuscular Hemoglobin 32 25-34 pg Mean Corpuscular Hemoglobin Concent 35 32-36 g/dL Red Cell Distribution Width 12.8 10.0-14.5 % Platelet Count 214 130-400 10^3/uL Mean Platelet Volume 10.4 9.0-12.2 fL Immature Granulocyte % (Auto) 0 % Neutrophils (%) (Auto) 83 H 42-75 % Lymphocytes (%) (Auto) 9 L 12-44 % Monocytes (%) (Auto) 6 0-12 % Eosinophils (%) (Auto) 1 0-10 % Basophils (%) (Auto) 1 0-10 % Neutrophils # (Auto) 12.3 H 1.8-7.8 10^3/uL Lymphocytes # (Auto) 1.3 1.0-4.0 10^3/uL Monocytes # (Auto) 1.0 0.0-1.0 10^3/uL Eosinophils # (Auto) 0.2 0.0-0.3 10^3/uL Basophils # (Auto) 0.1 0.0-0.1 10^3/uL Immature Granulocyte # (Auto) 0.0 0.0-0.1 10^3/uL Neutrophils % (Manual) 78 % Lymphocytes % (Manual) 10 % Monocytes % (Manual) 4 % Eosinophils % (Manual) 4 % Basophils % (Manual) 0 % Band Neutrophils 2 % Reactive Lymphocytes 2 % Blood Morphology Comment NORMAL Sodium Level 136 135-145 MMOL/L Potassium Level 3.6 3.6-5.0 MMOL/L Chloride Level 103 98-107 MMOL/L Carbon Dioxide Level 20 L 21-32 MMOL/L Anion Gap 13 5-14 MMOL/L Blood Urea Nitrogen 21 H 7-18 MG/DL Creatinine 1.90 H 0.60-1.30 MG/DL Estimat Glomerular Filtration Rate 44 BUN/Creatinine Ratio 11 Glucose Level 231 H 70-105 MG/DL Calcium Level 8.8 8.5-10.1 MG/DL Corrected Calcium 9.4 8.5-10.1 MG/DL Total Bilirubin 0.7 0.1-1.0 MG/DL Aspartate Amino Transf (AST/SGOT) 25 5-34 U/L Alanine Aminotransferase (ALT/SGPT) 34 0-55 U/L Alkaline Phosphatase 81 40-136 U/L Total Protein 6.0 L 6.4-8.2 GM/DL Albumin 3.3 3.2-4.5 GM/DL Lipase 22 8-78 U/L Beta-Hydroxybutyrate (Chem panel) 0.43 H 0.00-0.27 MMOL/L My Orders Orders - HODA GOMEZ APRN Cbc With Automated Diff (02/03/22 21:20) Beta Hydroxybutyrate (02/03/22 21:20) Comprehensive Metabolic Panel (02/03/22 21:20) Ua Culture If Indicated (02/03/22 21:20) Ed Iv/Invasive Line Start (02/03/22 21:20) Drug Screen Stat (Urine) (02/03/22 21:20) Lipase (02/03/22 21:20) Lactated Ringers (Lr 1000 Ml Iv Solution (02/03/22 21:30) Fentanyl Inj (Sublimaze Injection) (02/03/22 21:45) Lactated Ringers (Lr 1000 Ml Iv Solution (02/03/22 21:45) Ct Abd/Pelvis Wo(Kidney Stone) (02/03/22 21:43) Manual Differential (02/03/22 21:38) Medications Given in ED Current Medications Medications Dose Ordered Sig/Lynne Route Start Time Stop Time Status Last Admin Dose Admin Fentanyl Citrate 50 mcg ONCE ONCE IVP 02/03/22 21:45 02/03/22 21:46 DC 02/03/22 21:48 50 MCG Vital Signs/I&O 02/03/22 21:25 Temp 35.6 Pulse 98 Resp 20 B/P (MAP) 164/105 (124) Pulse Ox 98 O2 Delivery Room Air Blood Pressure Mean: 124 Departure Communication (Admissions) Family Conversation NAME: SCOTT RASHID [facility] REC#: [id number] PT STATUS: REG ER : 1975 PHYSICIAN: HODA GOMEZ ELECTRICAL ENGINEERING DRAFTSPERSON ADMIT DATE: 02/03/22/ER Draft Date of Exam:02/03/22 CT ABD/PELVIS WO(KIDNEY STONE) PROCEDURE: CT urinary tract, rule out kidney stone. TECHNIQUE: Multiple contiguous axial images were obtained through the abdomen and pelvis without the use of intravenous contrast. Auto Exposure Controls were utilized during the CT exam to meet ALARA standards for radiation dose reduction. INDICATION: Right-sided abdominal pain. History of gastric pacemaker. COMPARISON: None. FINDINGS: Included portions of the lung bases are clear. Moderate hiatal hernia is present. CT ABDOMEN: There is acute appendicitis. Appendix is prominent. It measures 1.2 cm in diameter. Multiple appendicoliths are identified within the lumen of the appendix. There is also mild stranding of the periappendiceal fat. Proximal small bowel loops are nondistended. There is no loculated fluid collection, free fluid or free air within the abdomen. There is no pneumatosis or portal venous gas. The kidneys, adrenal glands, spleen, pancreas and liver have an unremarkable noncontrast CT appearance. Cholelithiasis is noted. No abnormal mesenteric or retroperitoneal adenopathy is seen. Neurostimulator device is noted within the anterior subcutaneous fat. There is moderate calcified aortic and arterial atherosclerosis. Osseous structures show no acute abnormality. CT PELVIS: Urinary bladder is unopacified. No calculi are seen within the urinary bladder. There is no loculated fluid collection, free fluid or free air within the pelvis. No abnormal lymph nodes are identified. Osseous structures show no acute abnormality. IMPRESSION: 1. Acute appendicitis. No CT evidence of rupture. 2. Cholelithiasis, but no CT evidence of acute cholecystitis. 3. Moderate hiatal hernia. Report was called to Hoda Gomez APRN in the [place] ER at 10:36 p.m., by zak. Dictated on workstation # [id number] Dict: 02/03/222222 Trans: 02/03/222236 [id number] Interpreted by: ABDOUL OSULLIVAN MD Electronically signed by: [id number]-feeling better at this time. Official CT report is pending though to me it does look like appendix is dilated with minimal stranding around it and with some appendicoliths. Spoke with Dr. SUMNER. Will admit for acute appendicitis pending the official radiology report with him. Rocephin/Flagyl IV, Zofran and Phenergan for nausea, fentanyl for pain, NPO after 0200. Tentatively scheduled for laparoscopic appendectomy tomorrow to follow Dr. Sumner's other cases. , Impression Primary Impression: Appendicitis Disposition: ADMITTED INPATIENT Condition: Stable Departure-Patient Inst. Referrals: [facility] [place] ([place]) Primary Care Physician CHANG PERKINS (Family) Primary Care Physician OHDA GOMEZ APRN Feb 03, 2022 21:43
[2022-02-03] MEDS ORDERED: fentaNYL INJ 100 MCG/2 ML AMP IVP ONE (21:45)
[2022-02-03 21:53] LABS: ALBUMIN 3.3 GM/DL (3.2-4.5); POTASSIUM 3.6 MMOL/L (3.6-5.0)
[2022-02-03 21:54] LABS: CALCIUM 8.8 MG/DL (8.5-10.1)
[2022-02-03 21:57] LABS: BILIRUBIN,TOTAL 0.7 MG/DL (0.1-1.0)
[2022-02-03 21:59] LABS: CREATININE SERUM 1.9 MG/DL (0.60-1.30)
[2022-02-03 22:19] LABS: NEUTROPHILS % (MANUAL) 78 %
[2022-02-03 22:20] LABS: BAND NEUTROPHILS 2 %; BASOPHILS % (MANUAL) 0 %; EOSINOPHILS % (MANUAL) 4 %; LYMPHOCYTES % (MANUAL) 10 %; MONOCYTES % (MANUAL) 4 %; RBC MORPH NORMAL; REACTIVE LYMPHOCYTES 2 %
--- NOTE | 2022-02-03 22:37 | Diagnostic Imaging Report ---
PROCEDURE: CT urinary tract, rule out kidney stone. TECHNIQUE: Multiple contiguous axial images were obtained through the abdomen and pelvis without the use of intravenous contrast. Auto Exposure Controls were utilized during the CT exam to meet ALARA standards for radiation dose reduction. INDICATION: Right-sided abdominal pain. History of gastric pacemaker. COMPARISON: None. FINDINGS: Included portions of the lung bases are clear. Moderate hiatal hernia is present. CT ABDOMEN: There is acute appendicitis. Appendix is prominent. It measures 1.2 cm in diameter. Multiple appendicoliths are identified within the lumen of the appendix. There is also mild stranding of the periappendiceal fat. Proximal small bowel loops are nondistended. There is no loculated fluid collection, free fluid or free air within the abdomen. There is no pneumatosis or portal venous gas. The kidneys, adrenal glands, spleen, pancreas and liver have an unremarkable noncontrast CT appearance. Cholelithiasis is noted. No abnormal mesenteric or retroperitoneal adenopathy is seen. Neurostimulator device is noted within the anterior subcutaneous fat. There is moderate calcified aortic and arterial atherosclerosis. Osseous structures show no acute abnormality. CT PELVIS: Urinary bladder is unopacified. No calculi are seen within the urinary bladder. There is no loculated fluid collection, free fluid or free air within the pelvis. No abnormal lymph nodes are identified. Osseous structures show no acute abnormality. IMPRESSION: 1. Acute appendicitis. No CT evidence of rupture. 2. Cholelithiasis, but no CT evidence of acute cholecystitis. 3. Moderate hiatal hernia. Report was called to Jamil Gomez APRN in the [place] ER at 10:36 p.m., by imer. Dictated by: Dictated on workstation # [id number]
--- NOTE | 2022-02-03 23:03 | Progress Note-Pre Operative ---
Pre-Operative Progress Note H&P Reviewed The H&P was reviewed, patient examined and no changes noted. Date Seen by Provider: Feb 03, 2022 Time Seen by Provider: 23:00 Date H&P Reviewed: Feb 03, 2022 Time H&P Reviewed: 23:00 Pre-Operative Diagnosis: acute appendicitis ADI HONEYCUTT MD Feb 03, 2022 23:03
--- NOTE | 2022-02-03 23:13 | HISTORY AND PHYSICAL ---
DATE OF SERVICE: ATTENDING CARPET TECHNICIAN: DEAN Aguirre. HISTORY OF PRESENT ILLNESS: The patient is a 46-year-old male who presented to the Emergency Department with a 1-day history of pain in the right lower abdominal quadrant. He states that this has been constant and has increased in severity over time. He describes his pain as sharp in nature and has never had these type of symptoms before in the past. He does not report any diarrhea. He does have a history of insulin-dependent diabetes as well as a history of gastroparesis, status post gastric pacemaker implantation. A CT scan was performed, which did show dilated appendix with mild periappendiceal fat stranding as well as an appendicolith consistent with a noncomplicated appendicitis. He also does have a slight elevation of white count at 14.8. PAST MEDICAL HISTORY: Hypertension, insulin-dependent diabetes, gastroparesis, gastroesophageal reflux disease, depression. PAST SURGICAL HISTORY: Gastric pacemaker implantation. ALLERGIES: CIPROFLOXACIN, SULFA. MEDICATIONS: Enalapril 10 mg daily, aspartate insulin by insulin pump, Reglan 10 mg q.i.d., oxycodone p.r.n., paroxetine 20 mg daily, promethazine 50 mg q.8 hours p.r.n. SOCIAL HISTORY: Negative smoke, negative alcohol. FAMILY HISTORY: Noncontributory. VITAL SIGNS: Temperature 35.6, blood pressure 164/104, pulse 90, respirations 20, pulse ox 98% on room air. REVIEW OF SYSTEMS: Well-nourished male currently in no acute distress. He is not experiencing any shortness of breath or difficulty breathing. No chest pain, palpitations, diaphoresis. No nausea, vomiting with pain in the right lower abdominal quadrant. No diarrhea, no red blood per rectum, no dark tarry stools. No fever, chills, no recent inadvertent weight loss. All other review of systems negative. PHYSICAL EXAMINATION: CHEST: Clear. Good breath sounds bilaterally. HEART: Regular, no murmurs. EXTREMITIES: No lower extremity edema, negative Homans sign. HEENT: No scleral icterus. NECK: No cervical lymphadenopathy. ABDOMEN: Soft, nondistended. There is pain in the right lower abdominal quadrant and pain at McBurney's point with voluntary guarding, no rebound. SKIN: Warm, dry. LABORATORY DATA: WBC 14.8, hemoglobin 14.3, hematocrit 41, platelets 214. BUN 21, creatinine 1.90, glucose 231. ASSESSMENT AND PLAN: A 46-year-old male with noncomplicated acute appendicitis. Natural history of this disease process was explained to the patient as well as the risks and benefits of surgery and he is in full understanding of this and would like to proceed with laparoscopic appendectomy. Another incidental finding identified on CT scan was cholelithiasis; however, at this time, he appears to be asymptomatic; however, we will have him monitor for symptoms in the future for symptomatic cholelithiasis. Job ID: [id number] DocumentID: [id number] Dictated Date: 02/03/2022 22:54:55 Dredge Deckhand Date: 02/03/2022 23:12:39 Dictated By: ADI HONEYCUTT MD MTDD
[2022-02-03] MEDS ORDERED: ACETAMINOPHEN 325 MG TABLET PO PRN (23:15)
[2022-02-03] MEDS ORDERED: PROMETHAZINE 25 MG (PHENERGAN) SUPP PR PRN (23:15)
[2022-02-03 23:25] VITALS: BP 179/92
[2022-02-03] MEDS ORDERED: PROMETHAZINE INJ 25 MG/ML (PHENERGAN) AMP IVP PRN (23:30)
[2022-02-03] MEDS ORDERED: cefTRIAXone 1 GM PRE-MIX 50 ML IV SCH (23:30)
[2022-02-04] VITALS (12 sets, daily range): BP systolic 111–155; BP diastolic 60–80
[2022-02-04] MEDS: LACTATED RINGERS 1,000 ML IV SCH ×3 (00:08→16:51)
[2022-02-04] MEDS: fentaNYL INJ 100 MCG/2 ML AMP IVP PRN ×5 (00:08→12:29)
[2022-02-04] MEDS: metroNIDAZOLE 500 MG/100 ML IVPB (PRE-MIX) IV SCH ×2 (01:46→08:49)
[2022-02-04] MEDS: ONDANSETRON 4 MG/2 ML (SDV) Z0FRAN IV PRN ×2 (03:04→20:03)
[2022-02-04 05:35] LABS: BASOPHILS # (AUTO) 0.1 10^3/uL (0.0-0.1); BASOPHILS % (AUTO) 1 % (0-10); EOSINOPHILS % (AUTO) 0 % (0-10); HEMATOCRIT 41 % (40-54); HEMOGLOBIN 14.1 g/dL (13.3-17.7); LYMPHOCYTES # (AUTO) 0.8 10^3/uL (1.0-4.0); LYMPHOCYTES % (AUTO) 4 % (12-44); MEAN CORPUSCULAR HEMOGLOBIN 32 pg (25-34); MEAN CORPUSCULAR HGB CONC 35 g/dL (32-36); MEAN CORPUSCULAR VOLUME 92 fL (80-99); MEAN PLATELET VOLUME 10.1 fL (9.0-12.2); MONOCYTES # (AUTO) 1.3 10^3/uL (0.0-1.0); MONOCYTES % (AUTO) 7 % (0-12); NEUTROPHILS # (AUTO) 16.6 10^3/uL (1.8-7.8); NEUTROPHILS % (AUTO) 88 % (42-75); PLATELET COUNT 221 10^3/uL (130-400); WHITE BLOOD COUNT 18.9 10^3/uL (4.3-11.0)
[2022-02-04 06:03] LABS: CALCIUM 9.1 MG/DL (8.5-10.1)
[2022-02-04 06:07] LABS: CREATININE SERUM 1.61 MG/DL (0.60-1.30)
[2022-02-04] MEDS: inSUlin ASPART (NovoLOG) 1 UNIT/0.01 ML (CHARGE PER UNIT) SC SCH ×2 (06:13→12:33)
[2022-02-04] MEDS ORDERED: CATHETER FLUSH 10 ML SYR IVP PRN (06:30)
[2022-02-04] MEDS ORDERED: MELA10TA2 PO (09:41)
[2022-02-04] MEDS ORDERED: ENLP5T PO (09:41)
[2022-02-04] MEDS ORDERED: ATOR10TA66 PO (09:41)
[2022-02-04] MEDS ORDERED: LIDOCAINE/EPI 2% 1:100,00 (XYLOCAINE) 20 ML VIAL ONE (13:08)
[2022-02-04] MEDS ORDERED: inSUlin ASPART (NovoLOG) 1 UNIT/0.01 ML (CHARGE PER UNIT) SC NR (14:00)
[2022-02-04] MEDS ORDERED: ONDANSETRON 4 MG/2 ML (SDV) Z0FRAN ONE (14:54)
[2022-02-04] MEDS ORDERED: NEOSTIGMINE 3 MG/3 ML VIAL ONE (14:54)
[2022-02-04] MEDS ORDERED: fentaNYL INJ 100 MCG/2 ML AMP ONE (14:54)
[2022-02-04] MEDS ORDERED: ROCURONIUM 10 MG/ML 5 ML SYRINGE IV ONE (14:54)
[2022-02-04] MEDS ORDERED: GLYCOPYRROLATE 0.2 MG/ML (ROBINUL) 2 ML VIAL ONE (14:54)
[2022-02-04] MEDS ORDERED: LIDOCAINE PF 2% 5 ML (XYLOCAINE) VIAL ONE (14:54)
[2022-02-04] MEDS ORDERED: proPOfol 200 MG/20 ML (DIPRIVAN) VIAL IV ONE (14:54)
[2022-02-04] MEDS ORDERED: MIDAZOLAM 2 MG/2 ML (VERSED) VIAL ONE (14:55)
[2022-02-04] MEDS ORDERED: SUCCINYLCHOLINE INJ 20 MG/1 ML 10 ML VIAL ONE (14:59)
--- NOTE | 2022-02-04 15:51 | Progress Note-Post Operative ---
Post-Operative Progess Note Surgeon (s)/Account Review Specialist (s) Surgeon ADI HONEYCUTT MD Account Review Specialist: bella natarajan HAND SPINNER Pre-Operative Diagnosis acute appendicitis Post-Operative Diagnosis same Procedure & Operative Findings Date of Procedure 02/04/22 Procedure Performed/Findings laparoscopic appendectomy Anesthesia Type get Estimated Blood Loss Estimated blood loss (mL): minimal Specimens/Packing Specimens Removed appendix ADI HONEYCUTT MD Feb 04, 2022 15:51
[2022-02-04] MEDS ORDERED: HYDR-3817 PO (15:53)
[2022-02-04] MEDS ORDERED: ONDA4TAB11 PO (15:53)
--- NOTE | 2022-02-04 15:54 | Discharge Inst-Surgical ---
D/C Lap Instructions-YINKA New, Converted, or Re-Newed RX: RX on Chart Follow Up Appt in 2 weeks Activity as tolerated No driving for 24 hours No driving while on pain medications Incentive Spirometry use every 2 hours while awake Regular Diet Symptoms to Report: Fever over 101 degree F, Nausea/Vomiting Infection Signs and Symptoms to report: Increased redness, Foul odor of wound, Increased drainage Bathing instructions: May shower Operative Area Clean/Dry; Keep incision clean/dry If any problems/questions: Contact your physician or go to Emergency Room ADI HONEYCUTT MD Feb 04, 2022 15:54
[2022-02-04] MEDS ORDERED: SEVOFLURANE (ULTANE) 15 ML INHAL SOLN ONE (15:55)
[2022-02-04] MEDS ORDERED: inSUlin ASPART (NovoLOG) 1 UNIT/0.01 ML (CHARGE PER UNIT) SC SCH (16:00)
--- NOTE | 2022-02-04 16:06 | Anesthesia-General Post-Op ---
General Patient Condition Mental Status/LOC: Same as Preop Cardiovascular: Satisfactory Nausea/Vomiting: Absent Respiratory: Satisfactory Pain: Controlled Complications: Absent Post Op Complications Complications None Follow Up Care/Instructions Patient Instructions None needed. Anesthesia/Patient Condition Patient Condition Patient is doing well, no complaints, stable vital signs, no apparent adverse anesthesia problems. No complications reported per nursing. ADRIANNA LEIVA CRNA Feb 04, 2022 16:06
[2022-02-04] MEDS ORDERED: HYDROmorphone 2 MG/ML VIAL (DILAUDID) IV ONE (16:15)
[2022-02-04] MEDS ORDERED: ONDANSETRON 4 MG/2 ML (SDV) Z0FRAN IVP PRN (16:15)
[2022-02-04] MEDS ORDERED: fentaNYL INJ 100 MCG/2 ML AMP IVP ONE (16:15)
[2022-02-04] MEDS ORDERED: HYDROmorphone 2 MG/ML VIAL (DILAUDID) ONE (16:30)
[2022-02-04] MEDS ORDERED: LACTATED RINGERS 1,000 ML IV ONE (16:49)
[2022-02-04] MEDS: HYDROcodone/APAP 7.5 MG/325 MG (LORTAB, LORCET PLUS) TABLET PO PRN ×2 (18:21→20:03)
--- NOTE | 2022-02-04 21:13 | OPERATIVE REPORT ---
DATE OF SERVICE: 02/04/2022 ATTENDING PRIMARY CARE PHYSICIAN: DEAN Aguirre PREOPERATIVE DIAGNOSIS: Acute appendicitis. POSTOPERATIVE DIAGNOSIS: Acute appendicitis. PROCEDURE: Laparoscopic appendectomy. SURGEON: Adi Honeycutt MD SUPERVISOR [employer]: Giovanni Farisa APRN ANESTHESIA: General endotracheal. ESTIMATED BLOOD LOSS: Minimal. FINDINGS: Inflamed appendix, no perforation. DISPOSITION: The patient tolerated the procedure well. INDICATIONS: The patient is a 46-year-old male who presented to the Emergency Department with pain in the right lower abdominal quadrant starting yesterday around noon. He states that the pain progressively worsened and was consistent. He reported some mild nausea; however, no vomiting. He does have a history of diabetic gastroparesis; however, states that this has improved in recent months. A CT scan was performed, which did show inflammation of the appendix consistent with an acute appendicitis. DESCRIPTION OF PROCEDURE: The patient was brought to the operating room and laid supine on the table. After adequate IV pain and sedative medications and general endotracheal intubation, the abdomen was prepped and draped in standard surgical fashion. A 0.5% Marcaine with epinephrine was used to anesthetize the overlying skin in the left upper abdominal quadrant and a transverse skin incision made using a 15 blade. An 0 silk suture was applied to the medial aspect incision for retraction and a Veress needle inserted with a low opening pressure of 0 mmHg. The abdomen was then insufflated to 15 mmHg pressure. The Veress needle removed and a 5 mm XL trocar placed followed by a 5 mm 45-degree angle laparoscope visualizing the peritoneal cavity. A 4-quadrant abdominal exploration was performed. There was an inflamed appendix, no perforation. The remainder of the small bowel and colon appeared normal. Under direct visualization, we then proceeded to place a supraumbilical 10 mm port after the skin and peritoneal lining were anesthetized using 0.5% Marcaine with epinephrine and a transverse skin incision made using a 15 blade. In a similar fashion, a suprapubic 5 mm port was placed. The patient was then placed in a Trendelenburg position as well as plane right side up, left side down. The appendix was then retracted towards the anterior abdominal wall and a window created between the base of the appendix and the mesoappendix using a [place] dissector. The appendix was then stapled and transected at the cecal base using a LATOYA 45 mm stapler with a 2.5 mm thickness load. The mesoappendix was stapled and transected with the same stapler with a 2.0 mm thickness reload with visualization of good hemostasis. The appendix was removed through the 10 mm port site using an EndoCatch bag. Good hemostasis was observed. The area was irrigated and suctioned out. A 10 mm port site fascia and peritoneum were then closed under direct visualization using a Gigi-Donn device and 0 Vicryl suture. The abdomen desufflated and remaining ports removed. All skin incisions were closed using 4-0 Monocryl running subcuticular sutures. Wounds were then cleaned and covered with Dermabond. The patient tolerated the procedure well. We will start IV normal pain medication as well as a clear liquid diet. Once he is tolerating clears, has good pain control with oral pain medication and is ambulating well, we will discharge him home where he will be instructed to do no heavy lifting or exertion for the next two weeks. Job ID: [id number] DocumentID: [id number] Dictated Date: 02/04/2022 15:59:48 Government Employee Date: 02/04/2022 21:13:00 Dictated By: ADI HONEYCUTT MD
== END 2022-02-04 20:34 | disposition home or self-care (01) ==
LOC: EDUNIT# 21:16 → ER 21:18 → 4TH 22:15
PROVIDERS: ADMIT Surgery; ATTEND Surgery
DX: K35.80 Unspecified acute appendicitis (principal); E11.43 Type 2 diabetes mellitus with diabetic autonomic (poly)neuropathy; K31.84 Gastroparesis; Z79.4 Long term (current) use of insulin
CPT/HCPCS: 44970; 74176; 80048; 80053; 82010; 82947; 83690; 85007; 85025; 85027; 87081; 87636; 96374; 99284; G0378; 36415; 88304

== ENCOUNTER → 2022-03-04 | Outpatient (CLI) | payer MEDICARE, MEDICAID ==
[~2022-03-04] MED LIST changes: +ATOR10TA66 PO; +ENLP5T PO; +HEParin (CENTRAL IV FLUSH) 500 UNIT/5 ML SYR ONE; +HYDR-3817 PO; +MELA10TA2 PO; +ONDA4TAB11 PO
[2022-03-04 13:35] VITALS: BP 136/94
== END ==
LOC: SDC 13:19
PROVIDERS: ATTEND Physician Assistant
DX: Z45.2 Encounter for adjustment and management of vascular access device (principal); N18.31 Chronic kidney disease, stage 3a
CPT/HCPCS: 96523

== ENCOUNTER 2022-06-26 04:53 | Emergency (ER) | payer MEDICARE, MEDICAID ==
[~2022-06-26 04:53] MED LIST changes: -HEParin (CENTRAL IV FLUSH) 500 UNIT/5 ML SYR ONE
--- NOTE | 2022-06-26 05:25 | ED EENT ---
History of Present Illness General Chief Complaint: Ear Problems Stated Complaint: R EAR CLOGGED/PAIN Nursing Triage Note: PT ARRIVAL TO ER VIA PRIVATE VEHICLE FROM HOME WITH COMPLAINT OF CLOGGED EARS X3 DAYS WITH WORSENING LAST NIGHT AND THIS AM. PT STATES THAT HE THINKS IT COULD BE TOO MUCH WAX IN HIS EARS. HE STATES THAT THIS HAS BEEN A PROBLEM BEFORE. Source: patient (MIGNON DIXON DO) History of Present Illness Date Seen by Provider: Jun 26, 2022 Time Seen by Provider: 05:15 Initial Comments PT ARRIVES VIA POV FROM HOME C/O EARS CLOGGED STATES RIGHT EAR HAS BEEN "CLOGGED" OFF AND ON FOR THE LAST COUPLE OF DAYS, AND NOW IT IS STARTING IN HIS LEFT EAR WELL SYMPTOMS WORSE WHEN HE LAYS ON EITHER SIDE--WORSE ON RIGHT WHEN HE LAYS ON HIS RIGHT SIDE, WORSE ON HIS LEFT WHEN HE LAYS ON HIS LEFT SIDE. HAS NOT TAKEN ANYTHING FOR PAIN --STATES "IT REALLY DOESN'T HURT" NO FEVER OR RECENT ILLNESS NO URI SYMPTOMS NO DIZZINESS NO HEADACHE NO DRAINAGE FROM EAR NO SWELLING OF EAR. HAS HAD THIS PROBLEM A FEW TIMES IN THE PAST, HAS HAD WAX BUILD UP, AND EARS HAVE HAD TO BE FLUSHED OUT HAS NOT ATTEMPTED TO USE ANY OVER THE COUNTER EAR WAX REMOVAL PRODUCTS HAS NOT SOUGHT CARE UNTIL TODAY SYMPTOMS NOT ANY WORSE TODAY PCP: [facility] PERKINS (MIGNON DIXON DO) Allergies and Home Medications Allergies Coded Allergies: Sulfa (Sulfonamide Antibiotics) (Verified Allergy, Intermediate, RASH /HIVES, 07/02/12) ciprofloxacin (Verified Allergy, Intermediate, SWELLING, 03/08/12) Patient Home Medication List Home Medication List Reviewed: Yes (MIGNON DIXON DO) Atorvastatin Calcium (Atorvastatin Calcium) 10 Mg Tablet, 10 MG PO 1800 AFTER MEAL, (Reported) Entered as Reported by: ELIZA DUKE on 02/04/22 09 Enalapril Maleate (Enalapril Maleate) 5 Mg Tablet, 5 MG PO 1800 AFTER MEAL, (Rep orted) Entered as Reported by: ELIZA DUKE on 02/04/22 09 Hydrocodone/Acetaminophen (Hydrocodone-Acetamin 7.5-325) 1 Each Tablet, 1 EACH PO Q4H Prescribed by: ADI HONEYCUTT on 02/04/22 1553 Insulin Aspart (Novolog) 100 Unit/1 Ml Susp, UNITS SQ UD, (Reported) Entered as Reported by: ELIZA DUKE on 09/26/20 0849 Melatonin (Melatonin) 10 Mg Tablet, 10 MG PO HS, (Reported) Entered as Reported by: ELIZA DUKE on 02/04/22 0941 Ondansetron (Ondansetron Odt) 4 Mg Tab.rapdis, 4 MG PO Q4H Prescribed by: ADI HONEYCUTT on 02/04/22 1553 Review of Systems Review of Systems Constitutional: no symptoms reported Eyes: No Symptoms Reported Ears: See HPI; Denies Dizziness Nose: no symptoms reported Mouth: no symptoms reported Throat: no symptoms reported Respiratory: no symptoms reported Cardiovascular: no symptoms reported Gastrointestinal: no symptoms reported Musculoskeletal: no symptoms reported Skin: no symptoms reported Neurological: No Symptoms Reported Hematologic/Lymphatic: No Symptoms Reported Immunological/Allergic: no symptoms reported (MIGNON DIXON DO) Past Wacynkp-Bejxgm-Mchiiu Hx Patient Social History Tobacco Use?: Yes Tobacco type used: Cigarettes Smoking Status: Current Everyday Smoker Use of E-Cig and/or Vaping dev: No Substance use?: No Alcohol Use?: No Pt feels they are or have been: No (MIGNON DIXON DO) Immunizations Up To Date Tetanus Booster (TDap): Unknown Influenza Vaccine Up-to-Date: Yes; Up-to-Date First/Initial COVID19 Vaccinat: 2020 Second COVID19 Vaccination Gee: 2020 Third COVID19 Vaccination Date: 2020 COVID19 Vaccine [employer]: [email or web address] (MIGNON DIXON DO) Seasonal Allergies Seasonal Allergies: No (MIGNON DIXON DO) Past Medical History Surgeries: Yes Respiratory: No Currently Using CPAP: No Currently Using BIPAP: No Cardiac: Yes Hypertension Neurological: Yes Neuropathy Reproductive Disorders: No Sexually Transmitted Disease: No Genitourinary: No Gastrointestinal: Yes (Gastroparesis) Gastroesophageal Reflux Musculoskeletal: No Endocrine: Yes Diabetes, Insulin dep HEENT: No Loss of Vision: Denies Hearing Impairment: Denies Cancer: No Psychosocial: Yes Anxiety, Depression Integumentary: No Blood Disorders: No (MIGNON DIXON DO) Family Medical History Cancer, Diabetes (MIGNON DIXON DO) Physical Exam Vital Signs Vital Signs - First Documented 06/26/22 05:03 Temp 36.5 Pulse 79 Resp 15 B/P (MAP) 129/87 (101) Pulse Ox 99 O2 Delivery Room Air (LILLY SIMS MD) Height, Weight, BMI Height: 5'8.00" Weight: 163lbs. 11.7oz. [id number]; 28.60 BMI Method:Stated General Appearance: WD/WN, no apparent distress, other (TEXTING/PLAYING ON PHONE) Ears: bilateral ear other (TM'S WITH EXTENSIVE CERUMENOSIS BILATERALLY--UNABLE TO VISUALIZE EITHER TM OR CANAL--BOTH OBSCURED BY CERUMEN. NO PAIN ON TRACTION OF EXTERNAL EAR. NO SWELLING OR REDNESS TO EXTERNAL EARS. NO DRAINAGE FROM EARS) Neurologic/Psychiatric: no motor/sensory deficits, alert, normal mood/affect, oriented x 3 Skin: tattoos/piercings (MIGNON DIXON DO) Progress/Results/Core Measures Results/Orders Medications Given in ED Current Medications Medications Dose Ordered Sig/Lynne Route Start Time Stop Time Status Last Admin Dose Admin Docusate Sodium 100 mg ONCE ONCE PO 06/26/22 05:30 06/26/22 05:31 DC 06/26/22 05:43 100 MG Docusate Sodium 100 mg ONCE ONCE PO 06/26/22 05:30 06/26/22 05:31 DC 06/26/22 05:43 100 MG (LILLY SIMS MD) Vital Signs/I&O 06/26/22 05:03 Temp 36.5 Pulse 79 Resp 15 B/P (MAP) 129/87 (101) Pulse Ox 99 O2 Delivery Room Air (LILLY SIMS MD) Blood Pressure Mean: 101 Progress Progress Note : Progress Note COLACE INSTILLED IN BOTH EARS 0600--CARE TURNED OVER TO DR. SIMS, PENDING EAR IRRIGATION (MIGNON DIXON DO) Departure Impression Primary Impression: Bilateral hearing loss due to cerumen impaction Disposition: 01 HOME, SELF-CARE Condition: Stable Departure-Patient Inst. Decision time for Depature: 06:27 (LILLY SIMS MD) Referrals: [facility] (PCP) Primary Care Physician CHANG PERKINS (Family) Primary Care Physician Patient Instructions: Ear Wax Impaction (DC) Add. Discharge Instructions: Use an over-the counter ear wax removal kit - found at the pharmacy on a weekly basis. Follow up with your family doctor. Return to the Emergency Department for any new, concerning or emergent complaints. Copy Copies To 1: HUNTER ESPOSITO LISA K DO Jun 26, 2022 05:25 LILLY SIMS MD Jun 26, 2022 06:28
[2022-06-26] MEDS ORDERED: DOCUSATE SODIUM 100 MG (COLACE) CAP PO ONE ×2 (05:30)
[2022-06-26 06:41] VITALS: BP 124/88
== END 2022-06-26 06:37 | disposition home or self-care (01) ==
LOC: EDUNIT# 04:53 → ER 04:55
DX: H61.23 Impacted cerumen, bilateral (principal); E11.9 Type 2 diabetes mellitus without complications; F17.210 Nicotine dependence, cigarettes, uncomplicated; Z79.4 Long term (current) use of insulin
CPT/HCPCS: 99281

== ENCOUNTER → 2022-09-17 | Outpatient (CLI) | payer MEDICARE, MEDICAID ==
--- NOTE | 2022-09-17 09:24 | Diagnostic Imaging Report ---
INDICATION: [id number] I10 N18.9 R80.1 E11.22-chronic renal disease, hypertension TECHNIQUE: Multiple real-time grayscale sonographic images, color and duplex Doppler images were obtained of the urinary system. FINDINGS: Aortic velocity: 92 cm/sec. RIGHT kidney: Size: 10.7 x 4.3 x 5.0 cm The right renal parenchyma and collecting system appear unremarkable. The right renal artery is visualized in its proximal, mid and distal aspect. Maximum renal artery velocity: 73cm/sec Maximum renal artery/aortic ratio: 0.79 LEFT kidney: Size: 10.3 x 4.8 x 5.8 cm The left renal parenchyma and collecting system appear unremarkable. The left renal artery is visualized in its proximal, mid and distal aspect. Maximum renal artery velocity: 46cm/sec Maximum renal artery/aortic ratio: 0.51 Bladder: Not imaged. IMPRESSION: 1. Unremarkable renal ultrasound with doppler. (RA/AO ratios > 3.0 may suggest potential hemodynamically significant stenosis.) Dictated by: Dictated on workstation # [id number]
== END ==
LOC: RAD 08:20
PROVIDERS: ATTEND Internal Medicine Nephrology
DX: I12.9 Hypertensive chronic kidney disease with stage 1 through stage 4 chronic kidney disease, or unspecified chronic kidney disease (principal); E11.22 Type 2 diabetes mellitus with diabetic chronic kidney disease; N18.32 Chronic kidney disease, stage 3b; E83.9 Disorder of mineral metabolism, unspecified
CPT/HCPCS: 76770; 93975

== ENCOUNTER 2023-01-06 01:39 | Emergency (ER) | payer MEDICARE, MEDICAID ==
[~2023-01-06] VITALS: Ht 172.7 cm; Wt 78.3 kg
[2023-01-06] MEDS ORDERED: ENAL10TA16 (01:45)
--- NOTE | 2023-01-06 01:54 | ED Cardiac General ---
History of Present Illness General Chief Complaint: Cardiac/General Problems Stated Complaint: HIGH BLOOD PRESSURE Nursing Triage Note: brought in ambulatory with [facility] for c/o high bloodpressure. reports taking his hs dose enalapril 10mg approx. 0000. denies recent med changes/pain. History of Present Illness Date Seen by Provider: Jan 06, 2023 Time Seen by Provider: 01:54 Initial Comments 47-year-old male presents with concerns for high blood pressure. He reports t hat he has history of high blood pressure. That it was elevated tonight so he took an enalapril 10 mg around midnight. Patient reports that he does not know what his blood pressure normally runs. He states that he had what he describes as like a "pressure" in his left arm that is now resolved. No numbness or tingling. No chest pain. No vision changes headaches or other systemic complaints. 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 Allergies and Home Medications Allergies Coded Allergies: Sulfa (Sulfonamide Antibiotics) (Verified Allergy, Intermediate, RASH/HIVES, 07/02/12) ciprofloxacin (Verified Allergy, Intermediate, SWELLING, 03/08/12) Patient Home Medication List Home Medication List Reviewed: Yes Atorvastatin Calcium (Atorvastatin Calcium) 10 Mg Tablet, 10 MG PO 1800 AFTER MEAL, (Reported) Entered as Reported by: ELIZA DUKE on 02/04/22 0941 Enalapril Maleate (Enalapril Maleate) 10 Mg Tablet, (Reported) Entered as Reported by: MUNA NUNEZ on 01/06/23 0145 Last Action: New Order Hydrocodone/Acetaminophen (Hydrocodone-Acetamin 7.5-325) 1 Each Tablet, 1 EACH PO Q4H Prescribed by: ADI HONEYCUTT on 02/04/22 1553 Insulin Aspart (Novolog) 100 Unit/1 Ml Susp, UNITS SQ UD, (Reported) Entered as Reported by: ELIZA DUKE on 09/26/20 0849 Melatonin (Melatonin) 10 Mg Tablet, 10 MG PO HS, (Reported) Entered as Reported by: ELIZA DUKE on 02/04/22 0941 Ondansetron (Ondansetron Odt) 4 Mg Tab.rapdis, 4 MG PO Q4H Prescribed by: ADI HONEYCUTT on 02/04/22 1553 Discontinued Medications Enalapril Maleate (Enalapril Maleate) 5 Mg Tablet, 5 MG PO 1800 AFTER MEAL, (Reported) Discontinued Reason: No Longer Taking Entered as Reported by: ELIZA DUKE on 02/04/22 0941 Last Action: Discontinued Review of Systems Review of Systems Constitutional: No chills, No fever Respiratory: No Symptoms Reported Cardiovascular: No Symptoms Reported Gastrointestinal: No Symptoms Reported, Blood Streaked Stools Musculoskeletal: see HPI Skin: no symptoms reported Psychiatric/Neurological: No Symptoms Reported Endocrine: No Symptoms Reported Past Hylduge-Ulzigc-Cauplo Hx Patient Social History Tobacco Use?: Yes Substance use?: No Alcohol Use?: No Pt feels they are or have been: No Immunizations Up To Date Tetanus Booster (TDap): Unknown First/Initial COVID19 Vaccinat: x2 Second COVID19 Vaccination Gee: 2020 Third COVID19 Vaccination Date: 2020 COVID19 Vaccine 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: [employer] Seasonal Allergies Seasonal Allergies: No Past Medical History Surgery/Hospitalization HX: htn, gerd, iddm, anxiety, depression, Surgeries: Yes Respiratory: No Currently Using CPAP: No Currently Using BIPAP: No Cardiac: Yes Hypertension Neurological: Yes Neuropathy Reproductive Disorders: No Sexually Transmitted Disease: No Genitourinary: No Gastrointestinal: Yes (Gastroparesis) Gastroesophageal Reflux Musculoskeletal: No Endocrine: Yes Diabetes, Insulin dep HEENT: No Loss of Vision: Denies Hearing Impairment: Denies Cancer: No Psychosocial: Yes Anxiety, Depression Integumentary: No Blood Disorders: No Family Medical History Cancer, Diabetes Physical Exam Vital Signs Vital Signs - First Documented 01/06/23 01:41 Temp 36.4 Pulse 89 Resp 16 B/P (MAP) 206/130 (155) Pulse Ox 97 O2 Delivery Room Air Capillary Refill : Less Than 3 Seconds Height, Weight, BMI Height: 5'8.00" Weight: 163lbs. 11.7oz. [id number]; 26.00 BMI Method:Stated General Appearance: No Apparent Distress, WD/WN HEENT: PERRL/EOMI, Moist Mucous Membranes Neck: Full Range of Motion, Normal Inspection Respiratory: Lungs Clear, Normal Breath Sounds Cardiovascular: Regular Rate, Rhythm, No Edema Gastrointestinal: Non Tender, Soft Extremity: Normal Capillary Refill, Normal Inspection, Normal Range of Motion Neurologic/Psychiatric: Alert, Oriented x3, No Motor/Sensory Deficits, Normal Mood/Affect, manager of global II-XII Norm as Tested Skin: Normal Color, Warm/Dry Progress/Results/Core Measures Results/Orders Lab Results Laboratory Tests Test 01/06/23 01:59 01/06/23 02:06 Range/Units Urine Color YELLOW Urine Clarity CLEAR Urine pH 6.5 5-9 Urine Specific [employer] 1.025 H 1.016-1.022 Urine Protein 3+ H NEGATIVE Urine Glucose (UA) 2+ H NEGATIVE Urine Ketones NEGATIVE NEGATIVE Urine Nitrite NEGATIVE NEGATIVE Urine Bilirubin NEGATIVE NEGATIVE Urine Urobilinogen 0.2 < = 1.0 MG/DL Urine Leukocyte Esterase NEGATIVE NEGATIVE Urine RBC (Auto) 1+ H NEGATIVE Urine RBC 0-2 /HPF Urine WBC 0-2 /HPF Urine Crystals NONE /LPF Urine Bacteria NEGATIVE /HPF Urine Casts NONE /LPF Urine Mucus NEGATIVE /LPF Urine Culture Indicated NO White Blood Count 7.8 4.3-11.0 10^3/uL Red Blood Count 4.29 L 4.30-5.52 10^6/uL Hemoglobin 12.9 L 13.3-17.7 g/dL Hematocrit 37 L 40-54 % Mean Corpuscular Volume 86 80-99 fL Mean Corpuscular Hemoglobin 30 25-34 pg Mean Corpuscular Hemoglobin Concent 35 32-36 g/dL Red Cell Distribution Width 13.2 10.0-14.5 % Platelet Count 273 130-400 10^3/uL Mean Platelet Volume 10.2 9.0-12.2 fL Immature Granulocyte % (Auto) 0 % Neutrophils (%) (Auto) 71 42-75 % Lymphocytes (%) (Auto) 20 12-44 % Monocytes (%) (Auto) 6 0-12 % Eosinophils (%) (Auto) 2 0-10 % Basophils (%) (Auto) 1 0-10 % Neutrophils # (Auto) 5.6 1.8-7.8 10^3/uL Lymphocytes # (Auto) 1.6 1.0-4.0 10^3/uL Monocytes # (Auto) 0.5 0.0-1.0 10^3/uL Eosinophils # (Auto) 0.1 0.0-0.3 10^3/uL Basophils # (Auto) 0.1 0.0-0.1 10^3/uL Immature Granulocyte # (Auto) 0.0 0.0-0.1 10^3/uL Sodium Level 138 135-145 MMOL/L Potassium Level 3.6 3.6-5.0 MMOL/L Chloride Level 100 98-107 MMOL/L Carbon Dioxide Level 23 21-32 MMOL/L Anion Gap 15 H 5-14 MMOL/L Blood Urea Nitrogen 15 7-18 MG/DL Creatinine 1.84 H 0.60-1.30 MG/DL Estimat Glomerular Filtration Rate 45 BUN/Creatinine Ratio 8 Glucose Level 262 H 70-105 MG/DL Calcium Level 9.1 8.5-10.1 MG/DL Corrected Calcium 9.5 8.5-10.1 MG/DL Magnesium Level 1.4 L 1.6-2.4 MG/DL Total Bilirubin 0.5 0.1-1.0 MG/DL Aspartate Amino Transf (AST/SGOT) 27 5-34 U/L Alanine Aminotransferase (ALT/SGPT) 25 0-55 U/L Alkaline Phosphatase 92 40-136 U/L Troponin I < 0.028 <0.028 NG/ML Total Protein 6.8 6.4-8.2 GM/DL Albumin 3.5 3.2-4.5 GM/DL My Orders Orders - OZZIE JACOBO DO Cbc With Automated Diff (01/06/23 01:59) Comprehensive Metabolic Panel (01/06/23 01:59) Magnesium (01/06/23 01:59) Troponin I Reagan (01/06/23 01:59) Ua Culture If Indicated (01/06/23 01:59) Ekg Tracing (01/06/23 01:59) Vital Signs/I&O 01/06/23 01:41 Temp 36.4 Pulse 89 Resp 16 B/P (MAP) 206/130 (155) Pulse Ox 97 O2 Delivery Room Air Blood Pressure Mean: 155 Progress Progress Note : Progress Note Patient's blood pressure came down appropriately from his enalapril that he took at home. Upon discharge his blood pressure was down about systolic 149. Labs were reviewed along with previous labs and near his baseline. Patient is not having any symptoms. Patient's EKG was reviewed and showed normal sinus rhythm 78 with no acute changes. I did recommend he follow-up with replaced by [facility] next week patient was stable and discharged home. Initial ECG Impression Date: Jan 06, 2023 Initial ECG Impression Time: 02:06 Initial ECG Rate: 78 Initial ECG Rhythm: Normal Sinus Initial ECG Intervals: Normal Initial ECG Impression: Normal Departure Impression Primary Impression: Hypertension Qualified Codes: I10 - Essential (primary) hypertension Disposition: 01 HOME, SELF-CARE Condition: Stable Departure-Patient Inst. Referrals: [facility] (PCP) Primary Care Physician CHANG PERKINS (Family) Primary Care Physician Patient Instructions: High Blood Pressure in Adults, Controlling Your Blood Pressure Through Lifestyle Add. Discharge Instructions: Recommend you increase your enalapril from 5 mg daily to 10 mg daily. Follow-up with replaced by [facility] early next week for recheck of your blood pressure and continued diabetic management. All discharge instructions reviewed with patient and/or family. Voiced understanding. OZZIE JACOBO DO Jan 06, 2023 01:54
[2023-01-06 02:07] LABS: BILIRUBIN,URINE NEGATIVE (NEGATIVE); CLARITY,URINE CLEAR; COLOR,URINE YELLOW; GLUCOSE, URINE (UA) 2+ (NEGATIVE); KETONES,URINE NEGATIVE (NEGATIVE); LEUKOCYTE ESTERASE ,URINE NEGATIVE (NEGATIVE); NITRITE,URINE NEGATIVE (NEGATIVE); PH,URINE 6.5 (5-9); PROTEIN,URINE 3+ (NEGATIVE)
[2023-01-06 02:16] LABS: BACTERIA,URINE NEGATIVE /HPF; RBC,URINE 0-2 /HPF; WBC,URINE 0-2 /HPF
[2023-01-06 02:24] LABS: BASOPHILS # (AUTO) 0.1 10^3/uL (0.0-0.1); BASOPHILS % (AUTO) 1 % (0-10); EOSINOPHILS # (AUTO) 0.1 10^3/uL (0.0-0.3); EOSINOPHILS % (AUTO) 2 % (0-10); HEMATOCRIT 37 % (40-54); HEMOGLOBIN 12.9 g/dL (13.3-17.7); LYMPHOCYTES # (AUTO) 1.6 10^3/uL (1.0-4.0); LYMPHOCYTES % (AUTO) 20 % (12-44); MEAN CORPUSCULAR HEMOGLOBIN 30 pg (25-34); MEAN CORPUSCULAR HGB CONC 35 g/dL (32-36); MEAN CORPUSCULAR VOLUME 86 fL (80-99); MEAN PLATELET VOLUME 10.2 fL (9.0-12.2); MONOCYTES # (AUTO) 0.5 10^3/uL (0.0-1.0); MONOCYTES % (AUTO) 6 % (0-12); NEUTROPHILS # (AUTO) 5.6 10^3/uL (1.8-7.8); NEUTROPHILS % (AUTO) 71 % (42-75); PLATELET COUNT 273 10^3/uL (130-400); WHITE BLOOD COUNT 7.8 10^3/uL (4.3-11.0)
[2023-01-06 02:39] LABS: ALBUMIN 3.5 GM/DL (3.2-4.5)
[2023-01-06 02:40] LABS: CHLORIDE 100 MMOL/L (98-107); POTASSIUM 3.6 MMOL/L (3.6-5.0); SODIUM 138 MMOL/L (135-145)
[2023-01-06 02:41] LABS: CALCIUM 9.1 MG/DL (8.5-10.1)
[2023-01-06 02:42] LABS: GLUCOSE 262 MG/DL (70-105); TOTAL PROTEIN 6.8 GM/DL (6.4-8.2)
[2023-01-06 02:43] LABS: CARBON DIOXIDE 23 MMOL/L (21-32)
[2023-01-06 02:44] LABS: BILIRUBIN,TOTAL 0.5 MG/DL (0.1-1.0)
[2023-01-06 02:45] LABS: ALKALINE PHOSPHATASE 92 U/L (40-136)
[2023-01-06 02:46] LABS: CREATININE SERUM 1.84 MG/DL (0.60-1.30); GFR ESTIMATED 45
[2023-01-06 02:47] LABS: BUN/CREATININE RATIO 8
[2023-01-06 02:49] LABS: ALANINE AMINOTRANSFERASE 25 U/L (0-55); MAGNESIUM 1.4 MG/DL (1.6-2.4)
[2023-01-06 03:26] VITALS: BP 149/99
== END 2023-01-06 03:28 | disposition home or self-care (01) ==
LOC: EDUNIT# 01:39 → ER 01:40
DX: E11.9 Type 2 diabetes mellitus without complications (principal); Z79.4 Long term (current) use of insulin
CPT/HCPCS: 36415; 80053; 81000; 83735; 84484; 85025; 93005

== ENCOUNTER 2023-06-29 05:41 | Outpatient (CLI) | payer MEDICARE, MEDICAID ==
[~2023-06-29] VITALS: Ht 172.7 cm; Wt 79.4 kg
[~2023-06-29 05:41] MED LIST changes: +ENAL-66 PO; -ENAL10TA16 PO; +ENLP10T; +ENLP10T PO; -ENLP5T PO
[2023-06-30] MEDS ORDERED: DAPA10TA PO (11:58)
[2023-06-30] MEDS ORDERED: HYDR25TA4 PO (11:58)
== END 2023-06-30 12:05 | disposition home or self-care (01) ==
LOC: PREOP 05:41
PROVIDERS: ATTEND Surgery
DX: Z01.818 Encounter for other preprocedural examination (principal)

== ENCOUNTER 2023-07-12 07:17 | Day surgery (SDC) | payer MEDICARE, MEDICAID ==
[~2023-07-12] VITALS: Ht 172.7 cm; Wt 79.4 kg
[~2023-07-12 07:17] MED LIST changes: +DAPA10TA PO; +HYDR25TA4 PO
[2023-07-12] MEDS ORDERED: LACTATED RINGERS 1,000 ML 1,000 ML IV STA (07:18)
[2023-07-12 07:35] VITALS: BP 149/78
[2023-07-12] MEDS ORDERED: MIDAZOLAM INJ 2 MG/2 ML VIAL ONE (08:01)
--- NOTE | 2023-07-12 08:08 | Progress Note-Pre Operative ---
Pre-Operative Progress Note Date H&P Reviewed: Jul 12, 2023 Time H&P Reviewed: 07:55 History & Physical: H&P Reviewed, Patient Examed, No changes noted Pre-Operative Diagnosis: screening colonoscopy LORIE CEJA DO Jul 12, 2023 08:08
[2023-07-12 08:50] VITALS: BP 95/62
--- NOTE | 2023-07-12 08:51 | Progress Note-Post Operative ---
Post-Operative Progess Note Surgeon (s)/Hand Molder And Caster (s) Surgeon LORIE CEJA DO Hand Molder And Caster: none Pre-Operative Diagnosis screening colonoscopy Post-Operative Diagnosis colon polyps Procedure & Operative Findings Date of Procedure 07/12/23 Procedure Performed/Findings colonoscopy with hot biopsy polypectomy x2 Anesthesia Type per CODING DIRECTOR Estimated Blood Loss Estimated blood loss (mL): none Specimens/Packing Specimens Removed colon polyps LORIE CEJA DO Jul 12, 2023 08:51
--- NOTE | 2023-07-12 08:52 | Discharge Inst-Simple/Standard ---
Discharge Inst-Standard Patient Instructions/Follow Up Plan of Care/Instructions/FU: 2 weeks moses Activity as Tolerated: Yes Discharge Diet: Regular Diet LORIE CEJA DO Jul 12, 2023 08:52
[2023-07-12 08:55] VITALS: BP 99/64
[2023-07-12 09:00] VITALS: BP 149/78
[2023-07-12 09:25] VITALS: BP 149/78
--- NOTE | 2023-07-12 10:11 | OPERATIVE REPORT ---
DATE OF SERVICE: 07/12/2023 PREOPERATIVE DIAGNOSIS: Screening colonoscopy. POSTOPERATIVE DIAGNOSIS: Colon polyps. PROCEDURE: Colonoscopy with hot biopsy polypectomy x2. SURGEON: Lorie Eng DO ANESTHESIA: Per RECHECKER. ESTIMATED BLOOD LOSS: None. COMPLICATIONS: None. INDICATIONS: The patient is a 47-year-old male, needing screening colonoscopy. He understands risks and benefits of procedure and wished to proceed. Consent was signed in chart. DESCRIPTION OF PROCEDURE: The patient was taken to endoscopy suite, placed in left lateral recumbent position. Timeout was performed. Digital rectal exam was performed. No palpable polyps, masses or ulcerations. Scope was inserted in the rectum, advanced all the way to the cecum without difficulty. Prep was adequate with irrigation and suction. Scope was then slowly retracted back. No polyps, masses or ulcerations in the cecum, ascending, transverse colon. In the descending colon, a small polyp, which hot biopsy polypectomy was performed. Scope was then continuously retracted back into the sigmoid colon, which had a polyp behind a fold, which was grasped, elevated and cauterized. A hot biopsy polypectomy was performed. Scope was then continuously retracted back into the rectum, where it was also retroflexed noting no other pathology. Scope was returned to its normal position, slowly withdrawn until completely removed. The patient tolerated the procedure well without complications, taken to recovery room in stable condition. RECOMMENDATIONS: The patient will need repeat colonoscopy in 3 years. Any issues before that, be seen at that time. The patient will follow up on pathology in 2 weeks. Job ID: [id number] DocumentID: [id number] Dictated Date: 07/12/2023 08:50:38 Skate Boarder Date: 07/12/2023 10:09:00 Dictated By: LORIE ENG DO
--- NOTE | 2023-07-12 14:02 | Anesthesia-General Post-Op ---
MAC Patient Condition Mental Status/LOC: Same as Preop Cardiovascular: Satisfactory Nausea/Vomiting: Absent Respiratory: Satisfactory Pain: Controlled Complications: Absent Post Op Complications Complications None Follow Up Care/Instructions Patient Instructions None needed. Anesthesiology Discharge Order Discharge Order Patient is doing well, no complaints, stable vital signs, no apparent adverse anesthesia problems. No complications reported per nursing. DAVID NOWAK CRNA Jul 12, 2023 14:02
== END 2023-07-12 09:25 | disposition home or self-care (01) ==
LOC: ENDO 07:17
PROVIDERS: ATTEND Surgery
DX: Z12.11 Encounter for screening for malignant neoplasm of colon (principal); D12.4 Benign neoplasm of descending colon; D12.5 Benign neoplasm of sigmoid colon; Z87.891 Personal history of nicotine dependence
CPT/HCPCS: 82947